=== PATIENT | female | born 1945 | race Caucasian/White ===

== ENCOUNTER 2016-09-14 07:25 | Day surgery (SDC) | payer MEDICARE ==
[~2016-09-14 07:25] MED LIST: CEFAZOLIN 2 GM-D5W BAG** 50 ML IV ONE; Lactated Ringers 1,000 ML IV SCH; Pepcid 20 MG VIAL IV ONE
[2016-09-14] MEDS ORDERED: Pepcid 20 MG VIAL IV ONE (07:39)
[2016-09-14] MEDS ORDERED: Lactated Ringers 1,000 ML IV ONE ×2 (07:39→08:52)
[2016-09-14] MEDS ORDERED: CEFAZOLIN 2 GM-D5W BAG** 50 ML IV ONE (07:39)
[2016-09-14] MEDS ORDERED: DIPRIVAN 200 MG/20 ML IV ONE (08:00)
[2016-09-14] MEDS ORDERED: Zofran 4 MG/2 ML VIAL IV ONE (08:00)
[2016-09-14] MEDS ORDERED: SUBLIMAZE 100 MCG/2 ML IV ONE (08:00)
[2016-09-14] MEDS ORDERED: DILAUDID 2 MG INJECTION IV ONE (08:00)
[2016-09-14] MEDS ORDERED: Versed 2 MG/2 ML Injection IV ONE (08:00)
[2016-09-14 08:27] LABS: Mean Cell Volume 92.8 fl (78-100); Mean Corpuscular Hemoglobin 31.7 pg (26-32); Mean Platelet Volume 11.9 fl (6-9.5); Platelet Count 330 K/mm3 (150-450); Red Blood Count 4.99 M/mm3 (4.1-5.4); Red Cell Distribution Width 12.5 % (11.5-14.0); White Blood Count 9.2 K/mm3 (4.0-10.5)
[2016-09-14] MEDS ORDERED: EPINEPHRINE 1:1000 1 ML AMP ONE (08:52)
[2016-09-14] MEDS ORDERED: Marcaine 0.5% SDV 10 ML ONE (08:52)
[2016-09-14] MEDS ORDERED: XYLOCAINE 1%/Epi 1:100000 MDV 20 ML ONE (08:52)
[2016-09-14] MEDS ORDERED: SUBLIMAZE 100 MCG/2 ML ONE (11:20)
--- NOTE | 2016-09-14 12:19 | OP ---
SURGERY DATE/TIME: 09/14/2016 1000 PREOPERATIVE DIAGNOSIS: Internal derangement of the left knee. POSTOPERATIVE DIAGNOSES: 1) Multiple osteochondral loose bodies left knee. 2) Lateral and medial meniscus tears. 3) Chondral defect patella with chondromalacia. PROCEDURES: 1) Left knee arthroscopy with debridement of multiple osteochondral loose bodies. 2) Left knee arthroscopy with bilateral meniscectomy. 3) Left knee arthroscopy with chondroplasty patella and lateral femoral condyle. 4) Long leg splint. 5) On-Q pump catheter postoperative pain. SURGEON: Jevon Isaacs D.O. CONTRACT LAW SPECIALIST: None. ANESTHESIA: General per SCIENCE INTERPRETER. ESTIMATED BLOOD LOSS: Minimal. DESCRIPTION OF PROCEDURE: The patient is taken to the operative suite and placed in supine position, given a general anesthetic, placed supine. All neurovascular areas well padded. Sterile prep and drape done to the thigh and the incision made in the suprapatellar area of the knee. Entered with 0.25% Marcaine, 1% lidocaine and epinephrine placed into the knee, 60 cc total. Infralateral aspect of the knee entered with camera. Stab incision and camera inflow. ACL was intact. Multiple loose bodies seen in the anterior foreground of the lateral joint line on the tibia. Multiple punch type defects probably eraser in size or a little bit larger were found on the anterior foreground on the lateral portion of the femoral condyle of the knee and then menisci tears bilaterally and posterior horns of both of the knees. Punch forceps and binders were used with the [place] on the two meniscal tears posteriorly until a red-white cuff of standard tissue was obtained in the posterior horns bilaterally. Chondral surface using Surfak machine on a #3 setting was used overlying the chondral defects of the lateral femoral condyle and underneath of the patella covering a large swath space more than 10 to 15 mm in particularly in the patellofemoral area to a depth of outer bridge 2 or even 3. As described earlier the loose bodies were seen in the intercondylar notch in front of the knee were removed with a shaver and with graspers. As the knee was drained of saline, Ethilon sutures were placed in the portal sites and a long leg splint applied with a Hurtado compressive dressing applied.
[2016-09-14 13:52] VITALS: O2SAT 95
[2016-09-14 14:02] VITALS: BP 146/88; PULSE 81
== END 2016-09-14 13:00 | disposition home health service (06) ==
LOC: SDC 07:25
PROVIDERS: ATTEND Orthopaedic Surgery
PROC: 0SBD4ZZ Excision of Left Knee Joint, Percutaneous Endoscopic Approach (ICD-10-PCS; principal; 2016-09-14)
PROC: 0SBD4ZZ Excision of Left Knee Joint, Percutaneous Endoscopic Approach (ICD-10-PCS; 2016-09-14)
PROC: 0SCD4ZZ Extirpation of Matter from Left Knee Joint, Percutaneous Endoscopic Approach (ICD-10-PCS; 2016-09-14)
DX: M23.92 Unspecified internal derangement of left knee (principal); M23.42 Loose body in knee, left knee; S83.282A Other tear of lateral meniscus, current injury, left knee, initial encounter; S83.242A Other tear of medial meniscus, current injury, left knee, initial encounter; M22.42 Chondromalacia patellae, left knee; M25.562 Pain in left knee; Z79.899 Other long term (current) drug therapy
CPT/HCPCS: 01400; 36415; 82962; 85027; 93005; 99100; J0171; J0690; J1170; J2250; J2405; J2704; J3010; L1830

== ENCOUNTER 2018-01-20 19:44 | Emergency (ER) | payer MEDICARE ==
[2018-01-20 20:12] VITALS: O2SAT 98
[2018-01-20] MEDS ORDERED: TYLENOL 325 MG PO ONE (20:27)
[2018-01-20] MEDS ORDERED: Adacel Vial IM ONE ×2 (20:27→20:51)
[2018-01-20] MEDS ORDERED: TYLENOL 325 MG ONE (20:51)
--- NOTE | 2018-01-20 20:52 | ERPHSYRPT ---
- History of Present Illness Time Seen by Provider: 01/20/18 20:19 Source: patient Exam Limitations: no limitations Patient Subjective Stated Complaint: fell in yard and cut right arm 5 cm laceration, and bruised left knee, both shoulders sore Triage Nursing Assessment: Pt A&O x3, complains of sore shoulders from a fall in her yard, skin laceration/tear 5 cm long on right forearm, entire left knee bruised, hx of bone in knee being scraped on 09/14/2016, mastectomy on left breast 1993, bruising on RLQ of abdomen from insulin injections, no other bruising or cuts, denies hitting head, states that she is on 2L of Oxygen at home, 98% room air Physician History: Pt states, she tripped and fell on her way back from the mailbox, on her driveway, injured both knees and shoulders, also sustained a cut on her right forearm. She denies head or neck, back injury, LOC, other injury or complaints, no chest pain, SOB, dizziness, or nausea. Occurred: just prior to arrival Reason for Fall: tripped Injuries/Pain Location: upper extremity, lower extremity Loss of Consciousness: no loss of consciousness Quality: aching Severity of Pain-Max: mild Severity of Pain-Current: mild Modifying Factors: Improves With: movement Associated Symptoms (Fall): denies symptoms Allergies/Adverse Reactions: albuterol Allergy (Intermediate, Verified 01/20/18 20:13) Swelling of Tongue and Lips clonazepam [From Klonopin] Allergy (Verified 01/20/18 20:13) Tightness of Throat tongue swollen propranolol HCl [From Inderal LA] Allergy (Verified 01/20/18 20:12) Swelling of Tongue and Lips red face and ears Sulfa (Sulfonamide Antibiotics) Allergy (Verified 01/20/18 20:13) Swelling of Tongue and Lips throat swell,ears red venom-honey bee [bee venom (honey bee)] Allergy (Verified 01/20/18 20:13) Hives large hives zanamivir [From Relenza Diskhaler] Allergy (Verified 01/20/18 20:13) Swelling of Tongue and Lips throat tightness Home Medications: ALPRAZolam [Xanax 0.5 mg] 0.5 mg PO TID 11/13/13 [History] Aspirin 81 mg PO DAILY 11/13/13 [History] Cetirizine HCl [Zyrtec] 10 mg PO DAILY 11/13/13 [History] Ferrous Sulfate [Iron] 325 mg PO BID 11/13/13 [History] Insulin Glargine [Lantus Insulin] 8 unit SQ QHS 11/13/13 [History] Insulin Glargine,Hum.rec.anlog [Lantus] 34 unit SQ QAM 11/13/13 [History] Levothyroxine Sodium 150 Mcg [Synthroid 150 Mcg] 225 mcg PO QHS 11/13/13 [ History] Magnesium Oxide 400 mg [Mag-Ox 400] 750 mg PO TID 11/13/13 [History] Ranitidine HCl [Zantac] 150 mg PO BID 11/13/13 [History] Spironolactone [Aldactone] 50 mg PO BID 11/13/13 [History] Amlodipine Besylate 5 mg [Norvasc 5 mg] 5 mg PO DAILY 12/22/14 [History] Calcium Carbonate [Calcium] 1,000 mg PO DAILY 12/22/14 [History] Cyanocobalamin (Vitamin B-12) [Vitamin B12] 1,000 mcg PO DAILY 09/14/16 [History ] Diphenoxylate HCl/Atropine [Lomotil] 1 tab PO TID 09/14/16 [History] Insulin Aspart [Novolog Flexpen] 100 unit SQ UD 09/14/16 [History] Clopidogrel Bisulfate [Clopidogrel] 75 mg PO DAILY 01/20/18 [History] Gabapentin 300 mg PO TID 01/20/18 [History] Losartan Potassium 25 mg PO DAILY 01/20/18 [History] Montelukast Sodium 10 mg [Singulair 10 MG] 10 mg PO DAILY 01/20/18 [History] Pravastatin Sodium 10 mg PO DAILY 01/20/18 [History] Hx Tetanus, Diphtheria Vaccination/Date Given: Yes (2009) Hx Influenza Vaccination/Date Given: Yes Hx Pneumococcal Vaccination/Date Given: Yes - Review of Systems Musculoskeletal: Other (left knee and both shoulders painful, laceration to the right forearm.) All Other Systems: Reviewed and Negative - Past Medical History Pertinent Past Medical History: Yes Neurological History: Stroke ENT History: No Pertinent History Cardiac History: High Cholesterol, Hypertension, Other Respiratory History: COPD Endocrine Medical History: Diabetes Type I Musculoskeletal History: No Pertinent History GI Medical History: GERD History: No Pertinent History Psycho-Social History: Anxiety Female Reproductive Disorders: Breast Cancer Other Medical History: 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 PUBIC MASS REMOVED , left mastectomy and eleven lymph nodes removed.and right lumpectomy 1993 - Social History Smoking Status: Never smoker Exposure to second hand smoke: Yes (no longer around) Drug Use: none Patient Lives Alone: Yes - Nursing Vital Signs Nursing Vital Signs: Initial Vital Signs Temperature 98.1 F 01/20/18 19:54 Pulse Rate 85 01/20/18 19:54 Blood Pressure 174/81 01/20/18 19:54 O2 Sat by Pulse Oximetry 98 01/20/18 19:54 Pain Scale Pain Intensity 7 - Jeanie Coma Score Best Eye Response (Jeanie): (4) open spontaneously Best Verbal Response ([place]): (5) oriented Best Motor Response ([place]): (6) obeys commands Jeanie Total: 15 - Physical Exam General Appearance: no apparent distress Head Injury: no evidence of injury Eye Exam: PERRL/EOMI, eyes nml inspection ENT Exam: airway nml, evidence of ENT injury Neck Exam: supple, trachea midline, full range of motion, normal alignment, normal inspection, No muscle spasm Respiratory/Chest Exam: normal breath sounds, No chest tenderness, No ecchymosis Cardiovascular Exam: normal heart sounds, regular rate/rhythm, normal peripheral pulses, No murmur, No edema, No JVD Gastrointestinal Exam: soft, normal bowel sounds, No tenderness, No distention, No mass, No ecchymosis Back Exam: normal inspection, No CVA tenderness, No vertebral tenderness Extremity Exam: tenderness (right dorsal forearm: 5 cm long transverse skin tear , slightly lobated from the distal side, with small hematoma, no active bleeding , no deformity, good distal pulses and sensation, both anterior knees hematoma over the patella, larger on the left side, otherwise normal ROM, no effusion or laxity, good distal pulses, both anterior shoulders are tender, but no swelling , deformity, good ROM on both sides.) Peripheral Pulses: dorsalis-pedis (R): 3+, dorsalis-pedis (L): 3+ Neurologic Exam: alert, oriented x 3, normal mood/affect, nml station & gait, No motor deficits Skin Exam: normal color, warm, dry SpO2 Interpretation: normal SpO2: 98 Oxygen Delivery: Room Air Procedures - Laceration/Wound Repair Right Wrist Wound Location: Right, lower arm Wound Length (cm): 6 Wound's Depth, Shape: superficial, flap Wound Explored: clean Irrigated: Yes Hibiclens Prep: No Progress: 01/20/18 21:54 Wound cleaned with saline, betadine, steri strips placed, no sutures needed. - Course Nursing assessment & vital signs reviewed: Yes - Radiology Exams Right Forearm X-ray Interpretation: Interpreted by me, Negative Right Shoulder X-ray Interpretation: Interpreted by me, Negative Left Shoulder X-ray Interpretation: Interpreted by me, Negative Right Knee X-ray Interpretation: Interpreted by me, Negative Left Knee X-ray Interpretation: Interpreted by me, Negative Ordered Tests: Active Orders 24 hr Category Date Time Status FOREARM Stat Exams 01/20/18 20:28 Ordered KNEE (1 OR 2 VIEW) Stat Exams 01/20/18 20:28 Ordered KNEE (3 VIEWS) Stat Exams 01/20/18 20:28 Ordered SHOULDER Stat Exams 01/20/18 Ordered SHOULDER Stat Exams 01/20/18 20:28 Ordered Medication Summary Discontinued Medications Generic Name Dose Route Start Last Admin Trade Name Pavel PRN Reason Stop Dose Admin Acetaminophen 650 mg 01/20/18 20:27 01/20/18 20:52 Tylenol 325 Mg PO 01/20/18 20:28 650 mg STAT ONE Administration Acetaminophen Confirm 01/20/18 20:51 Tylenol 325 Mg Administered 01/20/18 20:52 Dose 650 mg .ROUTE .STK-MED ONE Diphtheria/Tetanus/Acell Pertussis 0.5 ml 01/20/18 20:27 01/20/18 20:52 Adacel Vial IM 01/20/18 20:28 0.5 ml .ONCE ONE Administration Diphtheria/Tetanus/Acell Pertussis Confirm 01/20/18 20:51 Adacel Vial Administered 01/20/18 20:52 Dose 0.5 ml IM .STK-MED ONE - Progress Progress: improved Progress Note: 01/20/18 21:55 Pt has been stable, improved, denies severe pain or distress, I discussed the X ray results with her, she is being discharged, advised to rest with elevated arm , apply ice or cold compresses to swelling, return if severe pain, swelling! Follow up with her PCP next week. Counseled pt/family regarding: diagnosis, need for follow-up, rad results - Departure Time of Disposition: 21:56 Departure Disposition: Home Clinical Impression: Laceration of arm Qualifiers: Encounter type: initial encounter Laterality: right Qualified Code(s): S41.111A - Laceration without foreign body of right upper arm, initial encounter Contusion, knee Qualifiers: Encounter type: initial encounter Laterality: unspecified laterality Qualified Code(s): S80.00XA - Contusion of unspecified knee, initial encounter Condition: Stable Critical Care Time: No Referrals: [facility] [Primary Care Provider] - Instructions: Contusion (DC), Laceration Repair With Glue (DC) Additional Instructions: Rest with elevated arm, apply ice or cold compresses to swelling, return if severe pain, swelling! Follow up with your doctor next week!
[2018-01-20 22:07] VITALS: BP 123/68; PULSE 82
--- NOTE | 2018-01-21 20:42 | XRAY ---
Indication: Pain following fall. Comparison: None 3 views of the right shoulder demonstrates osteopenia, moderate AC degenerative arthropathy, and multilevel degenerative spondylosis. No other bony, articular, or soft tissue abnormalities.
--- NOTE | 2018-01-21 20:42 | XRAY ---
Indication: Pain following fall. Comparison: None 3 views of the left shoulder demonstrates osteopenia, mild AC degenerative arthropathy, multilevel degenerative spondylosis, and left midlung fibrosis/scarring. No other bony, articular, or soft tissue abnormalities.
--- NOTE | 2018-01-21 20:44 | XRAY ---
Indication: Pain following fall. Comparison: None 3 views of the left knee demonstrates osteopenia, mild tricompartmental degenerative changes, small nonspecific suprapatellar effusion, and scattered vascular calcifications. No other bony, articular, or soft tissue abnormalities.
--- NOTE | 2018-01-21 20:44 | XRAY ---
Indication: Pain following fall. Comparison: None 2 views of the right knee demonstrates mild osteopenia, mild lateral compartment degenerative changes, and scattered vascular calcifications. No other bony, articular, or soft tissue abnormalities.
--- NOTE | 2018-01-21 20:45 | XRAY ---
Indication: Pain following fall. Comparison: December 22, 2014. 2 views of the right forearm demonstrates posterior soft tissue swelling. No other bony, articular, or soft tissue abnormalities.
== END 2018-01-20 22:08 | disposition home or self-care (01) ==
LOC: ED 19:44
DX: S41.111A Laceration without foreign body of right upper arm, initial encounter (principal); S80.02XA Contusion of left knee, initial encounter; S80.01XA Contusion of right knee, initial encounter; S40.012A Contusion of left shoulder, initial encounter; S40.011A Contusion of right shoulder, initial encounter; M25.512 Pain in left shoulder; M25.511 Pain in right shoulder; M25.562 Pain in left knee; W01.0XXA Fall on same level from slipping, tripping and stumbling without subsequent striking against object, initial encounter; Y93.01 Activity, walking, marching and hiking; Y92.008 Other place in unspecified non-institutional (private) residence as the place of occurrence of the external cause; Z79.82 Long term (current) use of aspirin; Z79.899 Other long term (current) drug therapy
CPT/HCPCS: 73030; 73090; 73560; 73562; 90471; 90715; 96372; 99284; A9270-GY

== ENCOUNTER 2018-12-28 08:56 | Observation (INO) | payer MEDICARE ==
[2018-12-28] MEDS ORDERED: ANTIVERT 25 MG PO ONE (09:20)
--- NOTE | 2018-12-28 09:27 | ERPHSYRPT ---
- History of Present Illness Time Seen by Provider: 12/28/18 09:20 Source: patient Exam Limitations: no limitations Patient Subjective Stated Complaint: pt co dizziness since tuesday, she states room is spinning and she feels unsteady, nausea, no fever, rigth ear feels full, Triage Nursing Assessment: pt arrived per wc, alert, resp labored with excertion which is normal for her. was able to get up out of wc and get undressed,chest clear, no edema Physician History: 73-year-old white female with history of CVA, hyperlipidemia, high blood pressure, diabetes type 1, GERD, anxiety Patient arrives with complaint of feeling dizzy symptoms going on for 2 days she states that 2 days ago she began to feel hot began to feel dizzy she states she feels dizzy doesn't matter whether she moves or not she has not had any chest pain or shortness of breath she states she felt like she's had some intermittent fevers no nausea no vomiting . 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 Past surgical history includes lobectomy, mastectomy, thyroid removed, left mastectomy with lymph node removed, right lumpectomy patient with aortic valve replaced, tonsillectomy, adenoidectomy, hernia repair Social history patient denies tobacco alcohol or illicit drug use Timing/Duration: day(s) (2 days) Severity: moderate Modifying Factors: Improves With: nothing Associated Symptoms: fever (intermittent fever), No nausea, No vomiting, No shortness of breath, No heartburn, No diaphoresis, No cough, No chills, No chest pain, No headaches, No loss of appetite, No rash, No syncope, No seizure, No weakness Allergies/Adverse Reactions: albuterol Allergy (Intermediate, Verified 12/28/18 09:09) Swelling of Tongue and Lips clonazepam [From Klonopin] Allergy (Verified 12/28/18 09:09) Tightness of Throat tongue swollen propranolol HCl [From Inderal LA] Allergy (Verified 12/28/18 09:09) Swelling of Tongue and Lips red face and ears Sulfa (Sulfonamide Antibiotics) Allergy (Verified 12/28/18 09:09) Swelling of Tongue and Lips throat swell,ears red venom-honey bee [bee venom (honey bee)] Allergy (Verified 12/28/18 09:09) Hives large hives zanamivir [From Lola Contreras] Allergy (Verified 12/28/18 09:09) Swelling of Tongue and Lips throat tightness Home Medications: ALPRAZolam [Xanax 0.5 mg] 0.5 mg PO TID 11/13/13 [History] Cetirizine HCl [Zyrtec] 10 mg PO DAILY 11/13/13 [History] Ferrous Sulfate [Iron] 325 mg PO BID 11/13/13 [History] Levothyroxine Sodium 150 Mcg [Synthroid 150 Mcg] 250 mcg PO QHS 11/13/13 [ History] Magnesium Oxide 400 mg [Mag-Ox 400] 750 mg PO TID 11/13/13 [History] Spironolactone [Aldactone] 50 mg PO BID 11/13/13 [History] Amlodipine Besylate 5 mg [Norvasc 5 mg] 5 mg PO DAILY 12/22/14 [History] Calcium Carbonate [Calcium] 1,000 mg PO DAILY 12/22/14 [History] Cyanocobalamin (Vitamin B-12) [Vitamin B12] 1,000 mcg PO DAILY 09/14/16 [History ] Diphenoxylate HCl/Atropine [Lomotil] 1 tab PO TID 09/14/16 [History] Clopidogrel Bisulfate [Clopidogrel] 75 mg PO DAILY 01/20/18 [History] Gabapentin 300 mg PO TID 01/20/18 [History] Losartan Potassium 25 mg PO DAILY 01/20/18 [History] Montelukast Sodium 10 mg [Singulair 10 MG] 10 mg PO DAILY 01/20/18 [History] Pravastatin Sodium 10 mg PO DAILY 01/20/18 [History] Insulin Glargine,Hum.rec.anlog [Basaglar Kwikpen U-100] 34 units DAILY 12/28/18 [History] Ranitidine HCl [Zantac] 150 mg DAILY 12/28/18 [History] Hx Tetanus, Diphtheria Vaccination/Date Given: Yes (2009) Hx Influenza Vaccination/Date Given: Yes Hx Pneumococcal Vaccination/Date Given: Yes Immunizations Up to Date: Yes - Review of Systems Constitutional: Fever (iintermittent fever (felt hot)), No Chills Eyes: No Symptoms Ears, Nose, & Throat: No Symptoms Respiratory: No Cough, No Dyspnea Cardiac: No Chest Pain, No Edema, No Syncope Abdominal/Gastrointestinal: No Abdominal Pain, No Nausea, No Vomiting, No Diarrhea Genitourinary Symptoms: No Dysuria Musculoskeletal: No Back Pain, No Neck Pain Skin: No Rash Neurological: Dizziness, No Focal Weakness, No Sensory Changes Psychological: No Symptoms Endocrine: No Symptoms All Other Systems: Reviewed and Negative - Past Medical History Pertinent Past Medical History: Yes Neurological History: Stroke ENT History: No Pertinent History Cardiac History: High Cholesterol, Hypertension, Other Respiratory History: COPD Endocrine Medical History: Diabetes Type I Musculoskeletal History: No Pertinent History GI Medical History: GERD History: No Pertinent History Psycho-Social History: Anxiety Female Reproductive Disorders: Breast Cancer Other Medical History: 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 PUBIC MASS REMOVED , left mastectomy and eleven lymph nodes removed.and right lumpectomy 1993, valve replaced aug 2018 - Social History Smoking Status: Never smoker Exposure to second hand smoke: Yes (no longer around) Drug Use: none Patient Lives Alone: Yes - Female History Hx Last Menstrual Period: post Hx Now: No - Nursing Vital Signs Nursing Vital Signs: Initial Vital Signs Temperature 98.1 F 12/28/18 08:59 Pulse Rate 96 H 12/28/18 08:59 Respiratory Rate 20 12/28/18 08:59 Blood Pressure 175/83 12/28/18 08:59 O2 Sat by Pulse Oximetry 100 12/28/18 08:59 Pain Scale Pain Intensity 4 - Physical Exam General Appearance: no apparent distress, alert Eye Exam: PERRL/EOMI, eyes nml inspection Ears, Nose, Throat Exam: normal ENT inspection, TMs normal, pharynx normal, moist mucous membranes Neck Exam: normal inspection, non-tender, supple, full range of motion Respiratory Exam: normal breath sounds, lungs clear, No respiratory distress Cardiovascular Exam: regular rate/rhythm, normal heart sounds, normal peripheral pulses, capillary refill <2 sec Gastrointestinal/Abdomen Exam: soft, normal bowel sounds, No tenderness, No mass Back Exam: normal inspection, normal range of motion, No CVA tenderness, No vertebral tenderness Extremity Exam: normal inspection, normal range of motion, pelvis stable Neurologic Exam: alert, oriented x 3, cooperative, senior tax specialist II-XII nml as tested, normal mood/affect, nml cerebellar function, nml station & gait, sensation nml, other (patient alert, oriented x3, cranial nerves II through XII intact, no facial droop, tongue does not deviate, normal finger to nose, no pronator drift , torpedo specialist equal and symmetrical 5 over 5, speech normal, full range of motion all extremities. sensation intact to all extremities, GCS equals 15), No motor deficits Skin Exam: normal color, warm, dry, No rash Lymphatic Exam: No adenopathy SpO2 Interpretation: normal (100%) SpO2: 100 - Course Nursing assessment & vital signs reviewed: Yes EKG Interpreted by Me: RATE (93 bpm), Sinus Rhythm, NORMAL AXIS, Other (EKG: Sinus rhythm with PAC, 93 beats per minute nonspecific ST and T wave changes, compared to to September 14, 2016) - Radiology Exams Chest X-ray Interpretation: Discussed w/ radiologist (chest x-ray: Stable nonacute chest with chronic features) - CT Exams Head CT Interpretation: Discussed w/radiologist (head CT: Impression:normal aging brain including atrophy and degenerative micro-ischemia. No acute intracranial abnormalities.) Ordered Tests: Active Orders 24 hr Category Date Time Status Accucheck STAT Care 12/28/18 09:20 Active EKG-ER Only STAT Care 12/28/18 09:20 Active EKG-ER Only STAT Care 12/28/18 11:41 Active IV Insertion STAT Care 12/28/18 09:20 Active Orthostatic Vital Signs STAT Care 12/28/18 09:20 Active CHEST 1 VIEW (PORTABLE) Stat Exams 12/28/18 09:20 Completed HEAD WITHOUT CONTRAST [CT] Stat Exams 12/28/18 09:20 Completed CBC W DIFF Stat Lab 12/28/18 09:25 Completed CMP Stat Lab 12/28/18 09:25 Completed CULTURE,URINE Stat Lab 12/28/18 11:02 Received ETHYL ALCOHOL Stat Lab 12/28/18 09:25 Completed TROPONIN Q3H Lab 12/28/18 09:25 Completed TROPONIN Q3H Lab 12/28/18 12:30 Ordered TROPONIN Q3H Lab 12/28/18 15:30 Ordered TROPONIN Q3H Lab 12/28/18 18:30 Ordered TROPONIN Q3H Lab 12/28/18 21:30 Ordered UA W/RFX UR CULTURE Stat Lab 12/28/18 11:02 Completed Medication Summary Generic Name Dose Route Start Last Admin Trade Name Freq PRN Reason Stop Dose Admin Sodium Chloride 1,000 mls @ 100 mls/hr 12/28/18 09:30 12/28/18 09:41 Sodium Chloride 0.9% 1000 Ml IV 01/27/19 09:29 100 mls/hr .Q10H RAMON Administration Discontinued Medications Generic Name Dose Route Start Last Admin Trade Name Freq PRN Reason Stop Dose Admin Aspirin 324 mg 12/28/18 11:36 12/28/18 11:44 Baby Aspirin 81 Mg Chew PO 12/28/18 11:37 324 mg STAT ONE Administration Aspirin Confirm 12/28/18 11:42 Baby Aspirin 81 Mg Chew Administered 12/28/18 11:43 Dose 324 mg .ROUTE .STK-MED ONE Sodium Chloride 1,000 mls @ 999 mls/hr 12/28/18 10:26 12/28/18 10:49 Sodium Chloride 0.9% 1000 Ml IV 12/28/18 11:26 999 mls/hr .Q1H1M STA Administration Meclizine HCl 25 mg 12/28/18 09:20 12/28/18 09:41 Antivert 25 Mg PO 12/28/18 09:21 25 mg STAT ONE Administration Meclizine HCl Confirm 12/28/18 09:35 Antivert 25 Mg Administered 12/28/18 09:36 Dose 25 mg .ROUTE .STK-MED ONE Lab/Rad Data: Laboratory Result Diagrams 12/28/18 09:25 12/28/18 09:25 Laboratory Results 12/28/18 12/28/18 12/28/18 Range/Units 11:02 09:25 09:25 WBC (4.0-10.5) K/mm3 RBC (4.1-5.4) M/mm3 Hgb (12.0-16.0) gm/dl Hct (35-47) % MCV (78-100) fl MCH (26-32) pg MCHC (32-36) g/dl RDW (11.5-14.0) % Plt Count (150-450) K/mm3 MPV (6-9.5) fl Gran % (36.0-66.0) % Eos # (Auto) (0-0.5) Absolute Lymphs (auto) (1.0-4.6) Absolute Monos (auto) (0.0-1.3) Lymphocytes % (24.0-44.0) % Monocytes % (0.0-12.0) % Eosinophils % (0.00-5.0) % Basophils % (0.0-0.4) % Absolute Granulocytes (1.4-6.9) Basophils # (0-0.4) Sodium 138 (137-145) mmol/L Potassium 4.0 (3.5-5.1) mmol/L Chloride 97 L (98-107) mmol/L Carbon Dioxide 20 L (22-30) mmol/L Anion Gap 23.8 H (5-15) MEQ/L BUN 24 H (7-17) mg/dL Creatinine 1.04 (0.52-1.04) mg/dL Estimated GFR 55.2 ML/MIN Glucose 265 H (74-106) mg/dL Calcium 9.0 (8.4-10.2) mg/dL Total Bilirubin 0.80 (0.2-1.3) mg/dL AST 35 (14-36) U/L ALT 20 (0-35) U/L Alkaline Phosphatase 87 (38-126) U/L Troponin I < 0.012 (0.000-0.034) ng/mL Serum Total Protein 8.7 H (6.3-8.2) g/dL Albumin 4.8 (3.5-5.0) g/dL Urine Color YELLOW (YELLOW) Urine Appearance SLIGHTLY CLOUDY (CLEAR) Urine pH 7.0 (5-6) Ur Specific [place] 1.011 (1.005-1.025) Urine Protein >=500 (Negative) Urine Ketones TRACE (NEGATIVE) Urine Blood NEGATIVE (0-5) Min/ul Urine Nitrite NEGATIVE (NEGATIVE) Urine Bilirubin NEGATIVE (NEGATIVE) Urine Urobilinogen NEGATIVE (0-1) mg/dL Ur Leukocyte Esterase TRACE (NEGATIVE) Urine WBC (Auto) 3-5 (0-5) /HPF Urine RBC (Auto) 0-2 (0-2) /HPF U Epithel Cells (Auto) RARE (FEW) /HPF Urine Bacteria (Auto) RARE (NEGATIVE) /HPF Urine Culture Reflexed YES (NO) Urine Glucose NEGATIVE (NEGATIVE) mg/dL Ethyl Alcohol < 10 (0-10) mg/dL 12/28/18 Range/Units 09:25 WBC 11.3 H (4.0-10.5) K/mm3 RBC 4.75 (4.1-5.4) M/mm3 Hgb 14.5 (12.0-16.0) gm/dl Hct 42.1 (35-47) % MCV 88.6 (78-100) fl MCH 30.5 (26-32) pg MCHC 34.4 (32-36) g/dl RDW 12.6 (11.5-14.0) % Plt Count 382 (150-450) K/mm3 MPV 11.9 H (6-9.5) fl Gran % 88.6 H (36.0-66.0) % Eos # (Auto) 0.03 (0-0.5) Absolute Lymphs (auto) 0.70 L (1.0-4.6) Absolute Monos (auto) 0.53 (0.0-1.3) Lymphocytes % 6.2 L (24.0-44.0) % Monocytes % 4.7 (0.0-12.0) % Eosinophils % 0.3 (0.00-5.0) % Basophils % 0.2 (0.0-0.4) % Absolute Granulocytes 10.02 H (1.4-6.9) Basophils # 0.02 (0-0.4) Sodium (137-145) mmol/L Potassium (3.5-5.1) mmol/L Chloride (98-107) mmol/L Carbon Dioxide (22-30) mmol/L Anion Gap (5-15) MEQ/L BUN (7-17) mg/dL Creatinine (0.52-1.04) mg/dL Estimated GFR ML/MIN Glucose (74-106) mg/dL Calcium (8.4-10.2) mg/dL Total Bilirubin (0.2-1.3) mg/dL AST (14-36) U/L ALT (0-35) U/L Alkaline Phosphatase (38-126) U/L Troponin I (0.000-0.034) ng/mL Serum Total Protein (6.3-8.2) g/dL Albumin (3.5-5.0) g/dL Urine Color (YELLOW) Urine Appearance (CLEAR) Urine pH (5-6) Ur Specific [place] (1.005-1.025) Urine Protein (Negative) Urine Ketones (NEGATIVE) Urine Blood (0-5) Min/ul Urine Nitrite (NEGATIVE) Urine Bilirubin (NEGATIVE) Urine Urobilinogen (0-1) mg/dL Ur Leukocyte Esterase (NEGATIVE) Urine WBC (Auto) (0-5) /HPF Urine RBC (Auto) (0-2) /HPF U Epithel Cells (Auto) (FEW) /HPF Urine Bacteria (Auto) (NEGATIVE) /HPF Urine Culture Reflexed (NO) Urine Glucose (NEGATIVE) mg/dL Ethyl Alcohol (0-10) mg/dL - Progress Progress: improved Progress Note: 12/28/18 11:52 73-year-old white female arrives with complaint of 2 days of dizziness no speech or movement abnormality she states she felt hot and became dizzy 2 days ago. Patient without other symptoms initially. Patient was EKG sinus rhythm with PAC 93 beats in no acute ST or T waves changes (nonspecific changes) patient was chemistry remarkable for an anion gap of 24 patient with glucose 265 sodium 138 potassium 4.0 chloride 97 bicarbonate 20 BUN 24 creatinine 1.04 Patient with normal troponin patient's CBC white blood cell 11.3 hemoglobin 14.5 hematocrit 42.1 Chest x-ray nonacute chest Patient was started on IV normal saline initially 1000 mL bolus and then switch to a second thousand milliliters bolus however patient stated that she had some chest pain to the nurse. Patient now states she is feeling better patient was given aspirin in view of her complain of some chest pain EKG is being repeated. I discussed the case with Dr. Cardenas will go ahead and run in remaining bag of fluids at 100 mL per hour and then stop. Will place patient on observation telemetry diagnosis dizziness, chest pain. Patient was given aspirin 324 mg orally 12/28/18 12:06 Repeat EKG time December 28, 2018 11:58 AM EKG: Sinus rhythm, 85 beats per minute normal axis, no acute ST or T wave changes essentially normal EKG. - Departure Departure Disposition: Observation Clinical Impression: Dizziness Chest pain Qualifiers: Chest pain type: unspecified Qualified Code(s): R07.9 - Chest pain, unspecified Condition: Fair Critical Care Time: No Referrals: DEBI CARDENAS [Primary Care Provider] -
[2018-12-28] MEDS ORDERED: Sodium Chloride 0.9% 1000 ML 1,000 ML IV SCH (09:30)
[2018-12-28] MEDS ORDERED: ANTIVERT 25 MG ONE (09:35)
[2018-12-28] MEDS ORDERED: Sodium Chloride 0.9% 1000 ML 1,000 ML ONE ×2 (09:36→10:52)
[2018-12-28 09:40] LABS: BASOPHIL % 0.2 % (0.0-0.4); Basophil (Absolute #) 0.02 (0-0.4); Eosinophil % 0.3 % (0.00-5.0); Eosinophil (Absolute #) 0.03 (0-0.5); Granulocyte Absolute (ANC) 10.02 (1.4-6.9); Granulocytes % 88.6 % (36.0-66.0); Hematocrit 42.1 % (35-47); Hemoglobin 14.5 gm/dl (12.0-16.0); Lymphocytes % 6.2 % (24.0-44.0); Mean Cell Volume 88.6 fl (78-100); Mean Corpuscular Hemoglobin 30.5 pg (26-32); Mean Corpuscular Hgb Concent. 34.4 g/dl (32-36); Mean Platelet Volume 11.9 fl (6-9.5); Monocyte (Absolute #) 0.53 (0.0-1.3); Monocytes % 4.7 % (0.0-12.0); Platelet Count 382 K/mm3 (150-450); Red Blood Count 4.75 M/mm3 (4.1-5.4); Red Cell Distribution Width 12.6 % (11.5-14.0); White Blood Count 11.3 K/mm3 (4.0-10.5)
[2018-12-28 09:46] LABS: ALBUMIN 4.8 g/dL (3.5-5.0); ALKALINE PHOSPHATASE 87 U/L (38-126); ANION GAP 23.8 MEQ/L (5-15); BLOOD UREA NITROGEN 24 mg/dL (7-17); CHLORIDE 97 mmol/L (98-107); Carbon Dioxide 20 mmol/L (22-30); Creatinine 1 1.04 mg/dL (0.52-1.04); Glucose 265 mg/dL (74-106); SGPT/ALT 20 U/L (0-35); SODIUM 138 mmol/L (137-145); Total Protein 8.7 g/dL (6.3-8.2)
[2018-12-28 09:49] LABS: ETHYL ALCOHOL < 10 mg/dL (0-10)
[2018-12-28 09:51] LABS: SGOT/AST 35 U/L (14-36)
--- NOTE | 2018-12-28 10:08 | XRAY ---
Indication: Fever and dizziness. Comparison: November 10, 2015. Portable apical lordotic chest again hyperinflated with lingula subsegmental atelectasis/scarring. Remaining lungs unremarkable. Heart is not enlarged for AP portable technique again with tortuous descending aorta. Bony thorax intact again with osteopenia and degenerative changes. Impression: Stable nonacute chest with chronic features.
--- NOTE | 2018-12-28 10:16 | XRAY ---
Indication: Dizziness and fever. Multiple contiguous axial images obtained through the head without contrast. Comparison: None Age-appropriate global atrophy and minimal degenerative micro-ischemia. No acute intracranial hemorrhage, abnormal extra-axial fluid collection, or mass effect. Fourth ventricle is midline without hydrocephalus. Choi-white matter differentiation preserved. Scattered bilateral internal carotid and vertebral calcifications. Bony calvarium intact. Visualized paranasal sinuses and mastoid air cells are clear. Impression: Normal aging brain including atrophy and degenerative micro-ischemia. No acute intracranial abnormalities. CT DI 70.80
[2018-12-28] MEDS ORDERED: Sodium Chloride 0.9% 1000 ML 1,000 ML IV STA (10:26)
[2018-12-28 11:12] LABS: Appearance SLIGHTLY CLOUDY (CLEAR); Bacteria RARE /HPF (NEGATIVE); Bilirubin NEGATIVE (NEGATIVE); Blood NEGATIVE Ery/ul (0-5); Epithelial Cells RARE /HPF (FEW); Glucose NEGATIVE (NEGATIVE); Ketones TRACE (NEGATIVE); Leukocyte Esterase TRACE (NEGATIVE); Nitrite NEGATIVE (NEGATIVE); Protein,Urine Dip >=500 (Negative); RBC 0-2 /HPF (0-2); Specific Gravity 1.011 (1.005-1.025); Urobilinogen NEGATIVE mg/dL (0-1)
[2018-12-28] MEDS ORDERED: BABY ASPIRIN 81 MG CHEW PO ONE (11:36)
[2018-12-28] MEDS ORDERED: BABY ASPIRIN 81 MG CHEW ONE (11:42)
[2018-12-28] MEDS ORDERED: Lomotil PO PRN (16:30)
[2018-12-28] MEDS ORDERED: INSULIN GLARGINE HUM REC ANLOG 34 UNIT SQ SCH (16:30)
[2018-12-28] MEDS ORDERED: MEDICATION INTERVENTION PO SCH (17:15)
[2018-12-28] MEDS: Lantus Insulin SQ SCH (17:31)
[2018-12-28] MEDS: ANTIVERT 25 MG PO PRN (17:31)
[2018-12-28] MEDS ORDERED: INSULIN GLARGINE HUM REC ANLOG 10 UNIT SQ SCH (18:00)
[2018-12-28] MEDS: NEURONTIN 300 MG PO SCH (22:07)
[2018-12-28] MEDS: Pepcid 20 MG PO SCH (22:07)
[2018-12-28] MEDS: FEOSOL 325 MG PO SCH (22:07)
[2018-12-28] MEDS: xanAX 0.5 MG PO SCH (22:07)
[2018-12-28] MEDS: MAG-OX 400 PO SCH (22:08)
[2018-12-29 05:47] LABS: BASOPHIL % 0.4 % (0.0-0.4); Basophil (Absolute #) 0.03 (0-0.4); Eosinophil % 0.6 % (0.00-5.0); Eosinophil (Absolute #) 0.05 (0-0.5); Granulocyte Absolute (ANC) 4.82 (1.4-6.9); Hematocrit 38.6 % (35-47); Lymphocytes % 26.6 % (24.0-44.0); Mean Cell Volume 90.4 fl (78-100); Mean Corpuscular Hemoglobin 30.4 pg (26-32); Mean Corpuscular Hgb Concent. 33.7 g/dl (32-36); Mean Platelet Volume 11.8 fl (6-9.5); Monocytes % 11.4 % (0.0-12.0); Platelet Count 320 K/mm3 (150-450); Red Blood Count 4.27 M/mm3 (4.1-5.4); Red Cell Distribution Width 12.5 % (11.5-14.0); White Blood Count 7.9 K/mm3 (4.0-10.5)
[2018-12-29 06:16] LABS: ALBUMIN 3.8 g/dL (3.5-5.0); ANION GAP 14.9 MEQ/L (5-15); BILIRUBIN,TOTAL 0.5 mg/dL (0.2-1.3); Calcium 7.6 mg/dL (8.4-10.2); Creatinine 1 0.97 mg/dL (0.52-1.04); Potassium 3.7 mmol/L (3.5-5.1)
[2018-12-29] MEDS: Lantus Insulin SQ SCH ×2 (08:22→17:58)
--- NOTE | 2018-12-29 08:51 | PCM.HP ---
History of Present Illness - Chief Complaint Chief Complaint: dizziness History of Present Illness: is a 73 year old female pt of mine from [facility] with COPD, anemia, chronic renal disease, hx breast ca (and mastectomy), hx CVA, hypothyroidism, DM II, celiac disease, and recent transcatheter bovine aortic valve replacement (Aug 2018) who came to the ER complaining of dizziness. She started having spinning , particularly when lying back, 3d ago. Yesterday she came to the ER. Her head CT was negative. She did start to have some sharp substernal 5/10 chest pain (no palpitations or diaphoresis) that resolved with meds in the ER. She stayed overnight for CP r/o HI - this morning she is not having any chest pain and her troponins are negative. - Review of Systems Constitutional: Fever (subjectively feeling "hot and cold at the same time") Respiratory: Short Of Breath (chronic; on O2) Cardiac: Chest Pain Abdominal/Gastrointestinal: Abdominal Pain, Nausea, Other (has dark stools chronically due to iron intake), No Vomiting, No Diarrhea Neurological: Dizziness Psychological: No Anxiety, No Depression, No Suicidal Ideations Endocrine: Cold Intolerance All Other Systems: Reviewed and Negative Medications & Allergies Home Medications: Home Medication List ALPRAZolam [Xanax 0.5 mg] 0.5 mg PO TID 11/13/13 [History Confirmed 12/28/18] Cetirizine HCl [Zyrtec] 10 mg PO DAILY 11/13/13 [History Confirmed 12/28/18] Ferrous Sulfate [Iron] 325 mg PO BID 11/13/13 [History Confirmed 12/28/18] Levothyroxine Sodium 150 Mcg [Synthroid 150 Mcg] 225 mcg PO DAILY 11/13/13 [History Confirmed 12/28/18] Magnesium Oxide 400 mg [Mag-Ox 400] 750 mg PO TID 11/13/13 [History Confirmed 12/28/18] Spironolactone [Aldactone] 50 mg PO DAILY 11/13/13 [History Confirmed 12/28/18] Amlodipine Besylate 5 mg [Norvasc 5 mg] 5 mg PO DAILY 12/22/14 [History Confirmed 12/28/18] Calcium Carbonate [Calcium] 1,000 mg PO DAILY 12/22/14 [History Confirmed ] Cyanocobalamin (Vitamin B-12) [Vitamin B12] 1,000 mcg PO DAILY 09/14/16 [ History Confirmed 12/28/18] Diphenoxylate HCl/Atropine [Lomotil] 1 tab PO TID 09/14/16 [History Confirmed 12/28/18] Clopidogrel Bisulfate [Clopidogrel] 75 mg PO DAILY 01/20/18 [History Confirmed 12/28/18] Gabapentin 300 mg PO TID 01/20/18 [History Confirmed 12/28/18] Losartan Potassium 25 mg PO DAILY 01/20/18 [History Confirmed 12/28/18] Montelukast Sodium 10 mg [Singulair 10 MG] 10 mg PO DAILY 01/20/18 [History Confirmed 12/28/18] Pravastatin Sodium 10 mg PO DAILY 01/20/18 [History Confirmed 12/28/18] Aspirin EC 81 mg [Ecotrin 81 mg] 81 mg PO DAILY 12/28/18 [History Confirmed 12/28/18] Insulin Aspart [NovoLOG Insulin] 1 units SQ UD 12/28/18 [History Confirmed 12/28/18] Insulin Glargine,Hum.rec.anlog [Basaglar Kwikpen U-100] 10 units SQ EVENING MEAL 12/28/18 [History Confirmed 12/28/18] Insulin Glargine,Hum.rec.anlog [Basaglar Kwikpen U-100] 34 units AC 12/28/18 [ History Confirmed 12/28/18] Ranitidine HCl [Zantac] 150 mg BID 12/28/18 [History Confirmed 12/28/18] Allergies/Adverse Reactions: Allergies Allergy/AdvReac Type Severity Reaction Status Date / Time albuterol Allergy Intermediate Swelling Verified 12/28/18 09:09 of Tongue and Lips clonazepam [From Klonopin] Allergy Tightness Verified 12/28/18 09:09 of Throat propranolol HCl Allergy Swelling Verified 12/28/18 09:09 [From Inderal LA] of Tongue and Lips Sulfa (Sulfonamide Allergy Swelling Verified 12/28/18 09:09 Antibiotics) of Tongue and Lips venom-honey bee Allergy Hives Verified 12/28/18 09:09 [bee venom (honey bee)] zanamivir Allergy Swelling Verified 12/28/18 09:09 [From Lola Contreras] of Tongue and Lips - Past Medical History Past Medical History: Yes Neurological History: Stroke ENT History: No Pertinent History Cardiac History: High Cholesterol, Hypertension, Other Respiratory History: COPD Endocrine Medical History: Diabetes Type I Musculoskelatal History: No Pertinent History GI Medical History: GERD, Other History: No Pertinent History Pyscho-Social History: Anxiety Reproductive Disorders: Breast Cancer Comment: Obstruction in each leg, aortic stenosis, and heart obstruction, Celiac disease - Female History Hx Last Menstrual Period: post Are you now?: No - Past Surgical History Past Surgical History: Yes Neuro Surgical History: No Pertinent History Cardiac History: Vascular Surgery, Other Respiratory Surgery: No Pertinent History GI Surgical History: Hernia Repair Genitourinary Surgical Hx: No Pertinent History Musculskeletal Surgical Hx: No Pertinent History Female Surgical History: Lumpectomy, Mastectomy Other Surgical History: THYROID REMOVED. PUBIC MASS REMOVED , left mastectomy and eleven lymph nodes removed.and right lumpectomy 1993, valve replaced aug 2018 - Social History Smoking Status: Former smoker Exposure to second hand smoke: Yes Alcohol: None Drug Use: none - Physical Exam Vital Signs: Vital Signs - 24 hr Temp Pulse Resp BP Pulse Ox 12/29/18 07:38 81 16 98 12/29/18 07:35 98 F 82 16 142/86 99 12/29/18 04:20 98.7 F 83 20 144/86 99 12/29/18 00:00 98.9 F 73 18 163/78 98 12/28/18 21:11 97 12/28/18 20:00 99.4 F 99 H 20 158/88 97 12/28/18 16:00 98.7 F 84 163/91 99 12/28/18 14:47 97 12/28/18 13:33 98.2 F 98 H 175/79 100 12/28/18 13:30 97 12/28/18 12:08 100 12/28/18 12:02 86 21 146/79 100 12/28/18 11:02 90 18 140/80 100 12/28/18 10:03 89 19 137/96 99 12/28/18 08:59 98.1 F 96 H 20 175/83 100 Oxygen-Last 24 hours O2 Percentage 2 Liters = 28% O2 Percentage 2 Liters = 28% O2 Percentage 2 Liters = 28% O2 Percentage 2 Liters = 28% O2 Percentage 2 Liters = 28% O2 Percentage 2 Liters = 28% O2 Percentage 2 Liters = 28% O2 Percentage 4 Liters = 36% Oxygen Flowrate (L/min)-RT 2 Oxygen Flowrate (L/min)-RT 2 General Appearance: no apparent distress, alert Neurologic Exam: oriented x 3, cooperative Eye Exam: eyes nml inspection Ears, Nose, Throat Exam: moist mucous membranes Neck Exam: normal inspection, non-tender, No lymphadenopathy Respiratory Exam: normal breath sounds, lungs clear, prolonged expirations, No crackles/rales, No rhonchi, No wheezing Cardiovascular Exam: regular rate/rhythm, normal heart sounds, No murmur Gastrointestinal/Abdomen Exam: soft, normal bowel sounds, No tenderness, No distention, No mass, No guarding, No rebound Back Exam: normal inspection, No CVA tenderness, No rash Extremity Exam: normal inspection, tenderness (R pretibial), No pedal edema, No swelling Skin Exam: normal color, warm, dry, No rash Results - Labs Lab/Micro Results: Accuchecks Date 12/29/18 Date 12/28/18 Time 07:00 Time 16:30 Accucheck Value: 188 Accucheck Value: 198 Accucheck Value: 166 Accucheck Value: 235 Lab Results-Last 24 Hours 12/28/18 12/28/18 12/28/18 Range/Units 09:25 09:25 09:25 WBC 11.3 H (4.0-10.5) K/mm3 RBC 4.75 (4.1-5.4) M/mm3 Hgb 14.5 (12.0-16.0) gm/dl Hct 42.1 (35-47) % MCV 88.6 (78-100) fl MCH 30.5 (26-32) pg MCHC 34.4 (32-36) g/dl RDW 12.6 (11.5-14.0) % Plt Count 382 (150-450) K/mm3 MPV 11.9 H (6-9.5) fl Gran % 88.6 H (36.0-66.0) % Eos # (Auto) 0.03 (0-0.5) Absolute Lymphs (auto) 0.70 L (1.0-4.6) Absolute Monos (auto) 0.53 (0.0-1.3) Lymphocytes % 6.2 L (24.0-44.0) % Monocytes % 4.7 (0.0-12.0) % Eosinophils % 0.3 (0.00-5.0) % Basophils % 0.2 (0.0-0.4) % Absolute Granulocytes 10.02 H (1.4-6.9) Basophils # 0.02 (0-0.4) Sodium 138 (137-145) mmol/L Potassium 4.0 (3.5-5.1) mmol/L Chloride 97 L (98-107) mmol/L Carbon Dioxide 20 L (22-30) mmol/L Anion Gap 23.8 H (5-15) MEQ/L BUN 24 H (7-17) mg/dL Creatinine 1.04 (0.52-1.04) mg/dL Estimated GFR 55.2 ML/MIN Glucose 265 H (74-106) mg/dL Hemoglobin A1c (4.5-6.0) % Calcium 9.0 (8.4-10.2) mg/dL Total Bilirubin 0.80 (0.2-1.3) mg/dL AST 35 (14-36) U/L ALT 20 (0-35) U/L Alkaline Phosphatase 87 (38-126) U/L Troponin I < 0.012 (0.000-0.034) ng/mL Serum Total Protein 8.7 H (6.3-8.2) g/dL Albumin 4.8 (3.5-5.0) g/dL Urine Color (YELLOW) Urine Appearance (CLEAR) Urine pH (5-6) Ur Specific Boyle (1.005-1.025) Urine Protein (Negative) Urine Ketones (NEGATIVE) Urine Blood (0-5) Min/ul Urine Nitrite (NEGATIVE) Urine Bilirubin (NEGATIVE) Urine Urobilinogen (0-1) mg/dL Ur Leukocyte Esterase (NEGATIVE) Urine WBC (Auto) (0-5) /HPF Urine RBC (Auto) (0-2) /HPF U Epithel Cells (Auto) (FEW) /HPF Urine Bacteria (Auto) (NEGATIVE) /HPF Urine Culture Reflexed (NO) Urine Glucose (NEGATIVE) mg/dL Ethyl Alcohol < 10 (0-10) mg/dL 12/28/18 12/28/18 12/28/18 Range/Units 09:25 11:02 12:37 WBC (4.0-10.5) K/mm3 RBC (4.1-5.4) M/mm3 Hgb (12.0-16.0) gm/dl Hct (35-47) % MCV (78-100) fl MCH (26-32) pg MCHC (32-36) g/dl RDW (11.5-14.0) % Plt Count (150-450) K/mm3 MPV (6-9.5) fl Gran % (36.0-66.0) % Eos # (Auto) (0-0.5) Absolute Lymphs (auto) (1.0-4.6) Absolute Monos (auto) (0.0-1.3) Lymphocytes % (24.0-44.0) % Monocytes % (0.0-12.0) % Eosinophils % (0.00-5.0) % Basophils % (0.0-0.4) % Absolute Granulocytes (1.4-6.9) Basophils # (0-0.4) Sodium (137-145) mmol/L Potassium (3.5-5.1) mmol/L Chloride (98-107) mmol/L Carbon Dioxide (22-30) mmol/L Anion Gap (5-15) MEQ/L BUN (7-17) mg/dL Creatinine (0.52-1.04) mg/dL Estimated GFR ML/MIN Glucose (74-106) mg/dL Hemoglobin A1c 8.91 H (4.5-6.0) % Calcium (8.4-10.2) mg/dL Total Bilirubin (0.2-1.3) mg/dL AST (14-36) U/L ALT (0-35) U/L Alkaline Phosphatase (38-126) U/L Troponin I 0.013 (0.000-0.034) ng/mL Serum Total Protein (6.3-8.2) g/dL Albumin (3.5-5.0) g/dL Urine Color YELLOW (YELLOW) Urine Appearance SLIGHTLY CLOUDY (CLEAR) Urine pH 7.0 (5-6) Ur Specific Boyle 1.011 (1.005-1.025) Urine Protein >=500 (Negative) Urine Ketones TRACE (NEGATIVE) Urine Blood NEGATIVE (0-5) Min/ul Urine Nitrite NEGATIVE (NEGATIVE) Urine Bilirubin NEGATIVE (NEGATIVE) Urine Urobilinogen NEGATIVE (0-1) mg/dL Ur Leukocyte Esterase TRACE (NEGATIVE) Urine WBC (Auto) 3-5 (0-5) /HPF Urine RBC (Auto) 0-2 (0-2) /HPF U Epithel Cells (Auto) RARE (FEW) /HPF Urine Bacteria (Auto) RARE (NEGATIVE) /HPF Urine Culture Reflexed YES (NO) Urine Glucose NEGATIVE (NEGATIVE) mg/dL Ethyl Alcohol (0-10) mg/dL 12/28/18 12/28/18 12/28/18 Range/Units 15:38 18:45 21:40 WBC (4.0-10.5) K/mm3 RBC (4.1-5.4) M/mm3 Hgb (12.0-16.0) gm/dl Hct (35-47) % MCV (78-100) fl MCH (26-32) pg MCHC (32-36) g/dl RDW (11.5-14.0) % Plt Count (150-450) K/mm3 MPV (6-9.5) fl Gran % (36.0-66.0) % Eos # (Auto) (0-0.5) Absolute Lymphs (auto) (1.0-4.6) Absolute Monos (auto) (0.0-1.3) Lymphocytes % (24.0-44.0) % Monocytes % (0.0-12.0) % Eosinophils % (0.00-5.0) % Basophils % (0.0-0.4) % Absolute Granulocytes (1.4-6.9) Basophils # (0-0.4) Sodium (137-145) mmol/L Potassium (3.5-5.1) mmol/L Chloride (98-107) mmol/L Carbon Dioxide (22-30) mmol/L Anion Gap (5-15) MEQ/L BUN (7-17) mg/dL Creatinine (0.52-1.04) mg/dL Estimated GFR ML/MIN Glucose (74-106) mg/dL Hemoglobin A1c (4.5-6.0) % Calcium (8.4-10.2) mg/dL Total Bilirubin (0.2-1.3) mg/dL AST (14-36) U/L ALT (0-35) U/L Alkaline Phosphatase (38-126) U/L Troponin I 0.017 0.019 0.019 (0.000-0.034) ng/mL Serum Total Protein (6.3-8.2) g/dL Albumin (3.5-5.0) g/dL Urine Color (YELLOW) Urine Appearance (CLEAR) Urine pH (5-6) Ur Specific Boyle (1.005-1.025) Urine Protein (Negative) Urine Ketones (NEGATIVE) Urine Blood (0-5) Min/ul Urine Nitrite (NEGATIVE) Urine Bilirubin (NEGATIVE) Urine Urobilinogen (0-1) mg/dL Ur Leukocyte Esterase (NEGATIVE) Urine WBC (Auto) (0-5) /HPF Urine RBC (Auto) (0-2) /HPF U Epithel Cells (Auto) (FEW) /HPF Urine Bacteria (Auto) (NEGATIVE) /HPF Urine Culture Reflexed (NO) Urine Glucose (NEGATIVE) mg/dL Ethyl Alcohol (0-10) mg/dL 12/29/18 12/29/18 Range/Units 05:18 05:18 WBC 7.9 (4.0-10.5) K/mm3 RBC 4.27 (4.1-5.4) M/mm3 Hgb 13.0 (12.0-16.0) gm/dl Hct 38.6 (35-47) % MCV 90.4 (78-100) fl MCH 30.4 (26-32) pg MCHC 33.7 (32-36) g/dl RDW 12.5 (11.5-14.0) % Plt Count 320 (150-450) K/mm3 MPV 11.8 H (6-9.5) fl Gran % 61.0 (36.0-66.0) % Eos # (Auto) 0.05 (0-0.5) Absolute Lymphs (auto) 2.10 (1.0-4.6) Absolute Monos (auto) 0.90 (0.0-1.3) Lymphocytes % 26.6 (24.0-44.0) % Monocytes % 11.4 (0.0-12.0) % Eosinophils % 0.6 (0.00-5.0) % Basophils % 0.4 (0.0-0.4) % Absolute Granulocytes 4.82 (1.4-6.9) Basophils # 0.03 (0-0.4) Sodium 137 (137-145) mmol/L Potassium 3.7 (3.5-5.1) mmol/L Chloride 99 (98-107) mmol/L Carbon Dioxide 27 (22-30) mmol/L Anion Gap 14.9 (5-15) MEQ/L BUN 18 H (7-17) mg/dL Creatinine 0.97 (0.52-1.04) mg/dL Estimated GFR 59.8 ML/MIN Glucose 188 H (74-106) mg/dL Hemoglobin A1c (4.5-6.0) % Calcium 7.6 L D (8.4-10.2) mg/dL Total Bilirubin 0.50 (0.2-1.3) mg/dL AST 23 (14-36) U/L ALT 16 (0-35) U/L Alkaline Phosphatase 63 (38-126) U/L Troponin I (0.000-0.034) ng/mL Serum Total Protein 7.0 (6.3-8.2) g/dL Albumin 3.8 (3.5-5.0) g/dL Urine Color (YELLOW) Urine Appearance (CLEAR) Urine pH (5-6) Ur Specific Boyle (1.005-1.025) Urine Protein (Negative) Urine Ketones (NEGATIVE) Urine Blood (0-5) Min/ul Urine Nitrite (NEGATIVE) Urine Bilirubin (NEGATIVE) Urine Urobilinogen (0-1) mg/dL Ur Leukocyte Esterase (NEGATIVE) Urine WBC (Auto) (0-5) /HPF Urine RBC (Auto) (0-2) /HPF U Epithel Cells (Auto) (FEW) /HPF Urine Bacteria (Auto) (NEGATIVE) /HPF Urine Culture Reflexed (NO) Urine Glucose (NEGATIVE) mg/dL Ethyl Alcohol (0-10) mg/dL Accuchecks Date 12/29/18 Date 12/28/18 Time 07:00 Time 16:30 Accucheck Value: 188 Accucheck Value: 198 Accucheck Value: 166 Accucheck Value: 235 - Radiology Impressions Radiology Exams & Impressions: Radiology Procedures Category Date Time Status CHEST 1 VIEW (PORTABLE) Stat Exams 12/28/18 09:20 Completed HEAD WITHOUT CONTRAST [CT] Stat Exams 12/28/18 09:20 Completed - Other Procedures and Tests Respiratory Therapy 12/28/18 14:46 Oxygen Nasal Cannula 2 lpm 12/28/18 14:47 Respiratory Therapy Assessment DAILY Assessment/Plan (1) BPPV (benign paroxysmal positional vertigo) Current Visit: Yes Status: Acute Qualifiers: Laterality: unspecified laterality Qualified Code(s): H81.10 - Benign paroxysmal vertigo, unspecified ear Assessment & Plan: Likely. Will have PT work with pt today. Sx better with antivert. Code(s): H81.10 - BENIGN PAROXYSMAL VERTIGO, UNSPECIFIED EAR (2) Chest pain Current Visit: Yes Status: Acute Qualifiers: Chest pain type: unspecified Qualified Code(s): R07.9 - Chest pain, unspecified Assessment & Plan: HI ruled out. She is concerned due to her recent valve replacement but she certainly seems stable. Will keep her on telemetry while she is here for her possible BPPV. Code(s): R07.9 - CHEST PAIN, UNSPECIFIED (3) Diabetes mellitus Current Visit: Yes Status: Chronic Qualifiers: Diabetes mellitus type: type 2 Diabetes mellitus residential insulin use: with residential use Diabetes mellitus complication status: with kidney complications Diabetes mellitus complication detail: with chronic kidney disease Chronic kidney disease stage: stage 2 (mild) Qualified Code(s): E11.22 - Type 2 diabetes mellitus with diabetic chronic kidney disease; N18.2 - Chronic kidney disease, stage 2 (mild); Z79.4 - retirement (current) use of insulin Assessment & Plan: accuchecks. sees Dr. Juan and is generally well controlled. Code(s): E11.9 - TYPE 2 DIABETES MELLITUS WITHOUT COMPLICATIONS (4) Renal insufficiency Current Visit: Yes Status: Chronic Assessment & Plan: stable
[2018-12-29] MEDS ORDERED: NON-FORMULARY ITEM (Pravastatin Sodium [Pravastatin Sodium] 10 MG) PO SCH (10:00)
[2018-12-29] MEDS ORDERED: NON-FORMULARY ITEM (Spironolactone [Aldactone] 50 MG) PO SCH (10:00)
[2018-12-29] MEDS ORDERED: Ecotrin 325 MG PO SCH (10:00)
[2018-12-29] MEDS ORDERED: NON-FORMULARY ITEM (Losartan Potassium [Losartan Potassium] 25 MG) PO SCH (10:00)
[2018-12-29] MEDS ORDERED: NON-FORMULARY ITEM (Cetirizine Hcl [Zyrtec] 10 MG) PO SCH (10:00)
[2018-12-29] MEDS: MAG-OX 400 PO SCH ×3 (10:18→22:14)
[2018-12-29] MEDS: SYNTHROID 125 MCG PO SCH (10:18)
[2018-12-29] MEDS: SYNTHROID 100 MCG PO SCH (10:19)
[2018-12-29] MEDS: Pepcid 20 MG PO SCH ×2 (10:19→22:14)
[2018-12-29] MEDS: xanAX 0.5 MG PO SCH ×3 (10:19→22:14)
[2018-12-29] MEDS: Aldactone 25 MG PO SCH (10:19)
[2018-12-29] MEDS: PLAVIX 75 MG Tablet PO SCH (10:19)
[2018-12-29] MEDS: ECOTRIN 81 MG PO SCH (10:19)
[2018-12-29] MEDS: NEURONTIN 300 MG PO SCH ×3 (10:20→22:14)
[2018-12-29] MEDS: NORVASC 5 MG PO SCH (10:20)
[2018-12-29] MEDS: Singulair 10 MG PO SCH (10:20)
[2018-12-29] MEDS: FEOSOL 325 MG PO SCH ×2 (10:20→22:14)
[2018-12-29] MEDS: Cozaar 50 MG PO SCH (10:20)
[2018-12-29] MEDS: CLARITIN 10 MG PO SCH (10:20)
[2018-12-29] MEDS: NovoLOG Insulin SQ PRN ×2 (12:34→17:58)
[2018-12-30] MEDS: PLAVIX 75 MG Tablet PO SCH (08:43)
[2018-12-30] MEDS: NEURONTIN 300 MG PO SCH ×2 (08:43→14:36)
[2018-12-30] MEDS: xanAX 0.5 MG PO SCH ×2 (08:43→14:36)
[2018-12-30] MEDS: Singulair 10 MG PO SCH (08:44)
[2018-12-30] MEDS: FEOSOL 325 MG PO SCH (08:44)
[2018-12-30] MEDS: SYNTHROID 100 MCG PO SCH (08:44)
[2018-12-30] MEDS: NORVASC 5 MG PO SCH (08:44)
[2018-12-30] MEDS: ECOTRIN 81 MG PO SCH (08:44)
[2018-12-30] MEDS: Aldactone 25 MG PO SCH (08:44)
[2018-12-30] MEDS: MAG-OX 400 PO SCH ×2 (08:44→14:36)
[2018-12-30] MEDS: CLARITIN 10 MG PO SCH (08:45)
[2018-12-30] MEDS: SYNTHROID 125 MCG PO SCH (08:45)
[2018-12-30] MEDS: Cozaar 50 MG PO SCH (08:45)
[2018-12-30] MEDS: Lantus Insulin SQ SCH ×2 (08:45→17:27)
[2018-12-30] MEDS: Pepcid 20 MG PO SCH (08:45)
[2018-12-30] MEDS: ANTIVERT 25 MG PO PRN (08:47)
--- NOTE | 2018-12-30 14:46 | PCM.DS ---
Discharge Summary Date of Admission: 12/28/18 13:20 Admitting Physician: DEBI HEART Primary Care Provider: DEBI HEART Allergies Allergies albuterol Allergy (Intermediate, Verified 12/28/18 09:09) Swelling of Tongue and Lips clonazepam [From Klonopin] Allergy (Verified 12/28/18 09:09) Tightness of Throat tongue swollen propranolol HCl [From Inderal LA] Allergy (Verified 12/28/18 09:09) Swelling of Tongue and Lips red face and ears Sulfa (Sulfonamide Antibiotics) Allergy (Verified 12/28/18 09:09) Swelling of Tongue and Lips throat swell,ears red venom-honey bee [bee venom (honey bee)] Allergy (Verified 12/28/18 09:09) Hives large hives zanamivir [From Relenza Diskhaler] Allergy (Verified 12/28/18 09:09) Swelling of Tongue and Lips throat tightness Hospital Summary - Hospital Course Hospital Course: is a 73 year old female pt of mine from [facility] with COPD, anemia, chronic renal disease, hx breast ca (and mastectomy), hx CVA, hypothyroidism, DM II, celiac disease, and recent transcatheter bovine aortic valve replacement (Aug 2018) who came to the ER complaining of vertigo x3d. Her head CT was negative. Her story was suspicious for BPPV so I consulted PT who found her somewhat positive on testing. They did modified Eppley maneuver and will see her in outpatient therapy to continue treatment. Taking antivert with some relief as well. She did have some chest pain and ruled out for AR with neg troponins x 5. Her inital EKG with some sinus arrhythmia; f/u EKG with sinus rhythm, LVH, L axis deviation, no acute ST changes. When I saw her this afternoon she complained of having had some chest pain this morning (she thinks she was just hungry) so will do one more troponin - if negative she should be fine to go home. - Vitals & Intake/Output Vital Signs: Vital Signs Temperature 98 F 12/30/18 12:00 Pulse Rate 80 12/30/18 12:00 Respiratory Rate 20 12/30/18 12:00 Blood Pressure 135/74 12/30/18 12:00 O2 Sat by Pulse Oximetry 99 12/30/18 12:00 Oxygen-Last Documented O2 Percentage 2 Liters = 28% Intake & Output: Intake & Output 12/28/18 12/29/18 12/30/18 12/31/18 11:59 11:59 11:59 11:59 Intake Total 1460 2380 480 Output Total 4000 3300 600 Balance -2540 -920 -120 Weight 81.647 kg 79.4 kg 79.8 kg - Lab Result Diagrams: 12/29/18 05:18 12/29/18 05:18 Lab Results-Last 24 Hrs: Accuchecks Date 12/30/18 Date 12/30/18 Date 12/29/18 Time 11:30 Time 07:30 Time 21:00 Accucheck Value: 151 Accucheck Value: 118 Accucheck Value: 142 Micro Results-Entire Visit: Microbiology 12/28/18 11:02 Urine Culture - Final Clean Catch Midstream MIXED JOSHUA; 3 OR MORE TYPES. NO PREDOMINANT ORGANISM. NO FURTHER WORKUP. PLEASE RESUBMIT IF CLINICALLY INDICATED. Accuchecks Date 12/30/18 Date 12/30/18 Date 12/29/18 Time 11:30 Time 07:30 Time 21:00 Accucheck Value: 151 Accucheck Value: 118 Accucheck Value: 142 - Procedures and Test Procedures and Tests throughout Hospitalization: Therapy Orders & Screens 12/28/18 14:46 Oxygen Nasal Cannula 2 lpm Comment: Diagnosis: dizziness 12/28/18 14:47 Respiratory Therapy Assessment DAILY Comment: Diagnosis: dizziness 12/29/18 08:45 PT Eval & Treat (MD Order) ROUTINE Reason for Eval:: possible BPPV Diagnosis: dizziness Discharge Exam General Appearance: no apparent distress, alert Neurologic Exam: oriented x 3, cooperative, welfare director II-XII nml as tested, normal mood/affect Eye Exam: eyes nml inspection Respiratory Exam: lungs clear, diminished breath sounds, prolonged expirations, No crackles/rales, No rhonchi, No wheezing Cardiovascular Exam: regular rate/rhythm, normal heart sounds, No murmur Gastrointestinal/Abdomen Exam: soft, normal bowel sounds, No tenderness, No distention, No mass, No guarding, No rebound Back Exam: normal inspection, No rash Extremity Exam: normal inspection, swelling (trace pretibial edema bilat) Skin Exam: normal color, warm, dry, No rash Final Diagnosis/Problem List - Final Discharge Diagnosis/Problem (1) BPPV (benign paroxysmal positional vertigo) Current Visit: Yes Status: Acute Assessment & Plan: Home with antivert today. F/u outpatient with PT (pt already has appointment). Code(s): H81.10 - BENIGN PAROXYSMAL VERTIGO, UNSPECIFIED EAR (2) Chest pain Current Visit: Yes Status: Resolved Assessment & Plan: If this troponin is negative, fine to d/c home today. Has been stable. Will send copy of this summary to [place] [facility]. Code(s): R07.9 - CHEST PAIN, UNSPECIFIED (3) Diabetes mellitus Current Visit: Yes Status: Chronic Code(s): E11.9 - TYPE 2 DIABETES MELLITUS WITHOUT COMPLICATIONS (4) Renal insufficiency Current Visit: Yes Status: Chronic - Discharge Disposition: Home, Self-Care Condition: Good Prescriptions: New Meclizine HCl 25 mg [Antivert 25 mg] 25 mg PO TID PRN PRN #60 tablet PRN Reason: Dizziness Continue Cetirizine HCl [Zyrtec] 10 mg PO DAILY Ferrous Sulfate [Iron] 325 mg PO BID Spironolactone [Aldactone] 50 mg PO DAILY Levothyroxine Sodium 150 Mcg [Synthroid 150 Mcg] 225 mcg PO DAILY ALPRAZolam [Xanax 0.5 mg] 0.5 mg PO TID Magnesium Oxide 400 mg [Mag-Ox 400] 750 mg PO TID Calcium Carbonate [Calcium] 1,000 mg PO DAILY Amlodipine Besylate 5 mg [Norvasc 5 mg] 5 mg PO DAILY Cyanocobalamin (Vitamin B-12) [Vitamin B12] 1,000 mcg PO DAILY Diphenoxylate HCl/Atropine [Lomotil] 1 tab PO TID Montelukast Sodium 10 mg [Singulair 10 MG] 10 mg PO DAILY Clopidogrel Bisulfate [Clopidogrel] 75 mg PO DAILY Losartan Potassium 25 mg PO DAILY Gabapentin 300 mg PO TID Pravastatin Sodium 10 mg PO DAILY Insulin Glargine,Hum.rec.anlog [Basaglar Kwikpen U-100] 34 units AC Ranitidine HCl [Zantac] 150 mg BID Aspirin EC 81 mg [Ecotrin 81 mg] 81 mg PO DAILY Insulin Glargine,Hum.rec.anlog [Basaglar Kwikpen U-100] 10 units SQ EVENING MEAL Insulin Aspart [NovoLOG Insulin] 1 units SQ UD Follow up with: DEBI HEART [Primary Care Provider] - 01/04/19 10:15 am
[2018-12-30 16:18] VITALS: BP 121/77; PULSE 75; O2SAT 96
== END 2018-12-30 17:40 | disposition home or self-care (01) ==
LOC: ED 08:56 → MED SURG 13:20
PROVIDERS: ADMIT Family Medicine; ATTEND Family Medicine
DX: H81.10 Benign paroxysmal vertigo, unspecified ear (principal); R07.9 Chest pain, unspecified; J44.9 Chronic obstructive pulmonary disease, unspecified; E11.9 Type 2 diabetes mellitus without complications; D64.9 Anemia, unspecified; N28.9 Disorder of kidney and ureter, unspecified; I10 Essential (primary) hypertension; E03.9 Hypothyroidism, unspecified; E78.00 Pure hypercholesterolemia, unspecified; Z85.3 Personal history of malignant neoplasm of breast; Z79.899 Other long term (current) drug therapy; Z79.4 Long term (current) use of insulin; Z86.73 Personal history of transient ischemic attack (TIA), and cerebral infarction without residual deficits
CPT/HCPCS: 36000; 36415; 70450; 71045; 80053; 81001; 82962; 83036; 84484; 85025; 87086; 93005; 93268; 94762; 95992; 96360; 96361; 97162; 99285; G0378; G0480; 80307; A9270-GY

== ENCOUNTER 2021-02-15 18:25 | Emergency (ER) | payer MEDICARE ==
[2021-02-15] MEDS ORDERED: NORCO 5/325 MG PO ONE ×2 (18:59→20:42)
[2021-02-15] MEDS ORDERED: NORCO 5/325 MG ONE ×2 (19:15→20:52)
--- NOTE | 2021-02-15 20:43 | ERPHSYRPT ---
- History of Present Illness Time Seen by Provider: 02/15/21 18:30 Source: patient Exam Limitations: no limitations Patient Subjective Stated Complaint: Pt was reaching over in a car to the cup carreon when she heard a "pop" in her right shoulder Triage Nursing Assessment: Pt brought to the ER by her friend, hypertensive, holding right arm, can not move shoulder backwards, pulses normal, rates pain 8/10, skin n/w/d Physician History: 75 years old female right-handed dominant presented in the ER with chief complaint of right shoulder pain sudden onset when she leaned over to grab a cup from her car prior to arrival and heard a popping sound in the right shoulder with sudden severe sharp pain limiting movements of the right shoulder. Denies any numbness tingling or weakness of right upper extremity. No fall or injury anywhere else. Occurred: just prior to arrival Quality: sharpness Severity of Pain-Max: severe Severity of Pain-Current: severe Extremities Pain Location: shoulder: right Modifying Factors: Improves With: cold therapy, immobilization. Worsens With: movement Associated Symptoms: none Allergies/Adverse Reactions: albuterol Allergy (Intermediate, Verified 02/15/21 18:40) Swelling of Tongue and Lips propranolol [From Inderal LA] Allergy (Intermediate, Verified 02/15/21 18:40) red face and ears clonazepam [From Klonopin] Allergy (Verified 02/15/21 18:40) Tightness of Throat tongue swollen metoclopramide [From Reglan] Allergy (Verified 02/15/21 18:41) propranolol HCl [From Inderal LA] Allergy (Verified 02/15/21 18:40) Swelling of Tongue and Lips red face and ears Sulfa (Sulfonamide Antibiotics) Allergy (Verified 02/15/21 18:40) Swelling of Tongue and Lips throat swell,ears red terfenadine Allergy (Verified 02/15/21 18:41) venom-honey bee [bee venom (honey bee)] Allergy (Verified 02/15/21 18:40) Hives large hives zanamivir [From Relenza Diskhaler] Allergy (Verified 02/15/21 18:40) Swelling of Tongue and Lips throat tightness cilostazol [From Pletal] Adverse Reaction (Severe, Verified 02/15/21 18:40) Swelling of Tongue and Lips ticagrelor [From Brilinta] Adverse Reaction (Severe, Verified 0718/21 18:40) Swelling of Tongue and Lips Home Medications: ALPRAZolam [Xanax 0.5 mg] 0.5 mg PO TID 11/13/13 [History] Cetirizine HCl [Zyrtec] 10 mg PO DAILY 11/13/13 [History] Ferrous Sulfate [Iron] 325 mg PO BID 11/13/13 [History] Magnesium Oxide 400 mg [Mag-Ox 400] 750 mg PO TID 11/13/13 [History] Spironolactone [Aldactone] 50 mg PO DAILY 11/13/13 [History] Amlodipine Besylate 5 mg [Norvasc 5 mg] 5 mg PO DAILY 12/22/14 [History] Calcium Carbonate [Calcium] 1,000 mg PO DAILY 12/22/14 [History] Cyanocobalamin (Vitamin B-12) [Vitamin B12] 1,000 mcg PO DAILY 09/14/16 [History] Diphenoxylate HCl/Atropine [Lomotil] 1 tab PO TID 09/14/16 [History] Clopidogrel Bisulfate [Clopidogrel] 75 mg PO DAILY 01/20/18 [History] Gabapentin 300 mg PO TID 01/20/18 [History] Losartan Potassium 25 mg PO DAILY 01/20/18 [History] Montelukast Sodium 10 mg [Singulair 10 MG] 10 mg PO DAILY 01/20/18 [History] Pravastatin Sodium 10 mg PO DAILY 01/20/18 [History] Aspirin EC 81 mg [Ecotrin 81 mg] 81 mg PO DAILY 12/28/18 [History] Insulin Aspart [NovoLOG Insulin] 1 units SQ UD 12/28/18 [History] Insulin Glargine,Hum.rec.anlog [Basaglar Kwikpen U-100] 10 units SQ EVENING MEAL 12/28/18 [History] Insulin Glargine,Hum.rec.anlog [Basaglar Kwikpen U-100] 34 units AC 12/28/18 [History] raNITIdine HCl [Zantac] 150 mg BID 12/28/18 [History] Amlodipine Besylate [Norvasc] 10 mg PO DAILY 12/02/20 [History] Buspirone HCl 5 mg [Buspar 5 mg] 5 mg PO DAILY 12/02/20 [History] Calcium Carbonate [Calcium] 600 mg PO TID 12/02/20 [History] Cetirizine HCl [Zyrtec] 10 mg PO DAILY 12/02/20 [History] Cyanocobalamin (Vitamin B-12) [B-12] 1,000 mcg PO DAILY 12/02/20 [History] Diphenoxylate HCl/Atropine [Lomotil] 1 udtab PO UD 12/02/20 [History] Famotidine 20 mg PO BID 12/02/20 [History] Famotidine 20 mg [Pepcid 20 MG] 20 mg PO BID 12/02/20 [History] Gabapentin 300 mg [Neurontin 300 mg] 300 mg PO TID 12/02/20 [History] Iron,Carb/Vit C/Vit B12/Folic [Iron 100 Plus Tablet] 65 mg PO DAILY 12/02/20 [Hi story] Levothyroxine Sodium [Unithroid] 300 mcg PO DAILY 12/02/20 [History] Losartan Potassium [Cozaar] 25 mg PO DAILY 12/02/20 [History] Magnesium Oxide 400 mg [Mag-Ox 400] 400 mg PO TID 12/02/20 [History] Pravastatin Sodium 20 mg PO DAILY 12/02/20 [History] Spironolactone 25 mg [Aldactone 25 MG] 25 mg PO DAILY 12/02/20 [History] Suvorexant [Belsomra] 4 mg PO HS 12/02/20 [History] Levothyroxine Sodium 25 mcg PO DAILY 02/15/21 [History] Hx Tetanus, Diphtheria Vaccination/Date Given: Yes (2009) Hx Influenza Vaccination/Date Given: Yes Hx Pneumococcal Vaccination/Date Given: Yes Travel Risk - International Travel Have you traveled outside of the country in past 3 weeks: No - Coronavirus Screening Are you exhibiting any of the following symptoms?: No Close contact with a COVID-19 positive Pt in past 14-21 Days: No - Vaccine Status Have you recieved a Covid-19 vaccination: Yes [place] Tender: Moderna - Vaccination Dates Date of 2cond Vaccination (if applicable): 09/2020 - Review of Systems Constitutional: No Symptoms Ears, Nose, & Throat: No Symptoms Respiratory: No Symptoms Cardiac: No Symptoms Abdominal/Gastrointestinal: No Symptoms Genitourinary Symptoms: No Symptoms Musculoskeletal: Arthralgias, Joint Pain Neurological: No Symptoms Psychological: No Symptoms, Hallucinations Hematologic/Lymphatic: No Symptoms Immunological/Allergic: No Symptoms - Past Medical History Pertinent Past Medical History: Yes Neurological History: TIA, Peripheral Neuropathy ENT History: No Pertinent History, Other Cardiac History: Hypertension Respiratory History: COPD Endocrine Medical History: Diabetes Type II, Hypothyroidism Musculoskeletal History: No Pertinent History GI Medical History: Other, GERD History: No Pertinent History Psycho-Social History: Anxiety Female Reproductive Disorders: Breast Cancer Other Medical History: right eye retinal scratch November 2020 - Past Surgical History Past Surgical History: Yes Neuro Surgical History: No Pertinent History Cardiac: Other, Vascular Surgery Respiratory: No Pertinent History Gastrointestinal: Hernia Repair Genitourinary: No Pertinent History Musculoskeletal: No Pertinent History Female Surgical History: No Pertinent History, Mastectomy, Lumpectomy Other Surgical History: left mastectomy 1993, right lumpectomy, right thyroid removed, left thyroid removed with goiter, pbuc mass, hernia repair , left knee scope, valve replacement - Social History Smoking Status: Former smoker Exposure to second hand smoke: Yes Drug Use: none Patient Lives Alone: Yes - Female History Hx Now: No - Nursing Vital Signs Nursing Vital Signs: Initial Vital Signs Temperature 99.1 F 02/15/21 18:33 Pulse Rate 94 H 02/15/21 18:33 Blood Pressure 158/112 02/15/21 18:33 O2 Sat by Pulse Oximetry 98 02/15/21 18:33 Pain Scale Pain Intensity 5 - Physical Exam General Appearance: no apparent distress, alert Neck Exam: normal inspection, non-tender, supple, full range of motion Cardiovascular/Respiratory Exam: chest non-tender, normal breath sounds, regular rate/rhythm Back Exam: normal inspection, normal range of motion Shoulder Exam: normal inspection, limited ROM (Right shoulder with tenderness in the deltoid and AC joint area), pain, soft tissue tenderness Elbow/Forearm Exam: normal inspection, non-tender, no evidence of injury, normal ROM Wrist Exam: normal inspection, normal ROM Hand Exam: normal inspection, normal ROM Neuro/Tendon Exam: normal sensation, normal motor functions Mental Status Exam: alert, oriented x 3, cooperative Skin Exam: normal color SpO2 Interpretation: normal SpO2: 98 O2 Delivery: Room Air Ordered Tests: Active Orders 24 hr Category Date Time Status SHOULDER Stat Exams 02/15/21 19:42 Taken Medication Summary Discontinued Medications Generic Name Dose Route Start Last Admin Trade Name Pavel PRN Reason Stop Dose Admin Hydrocodone Bitart/Acetaminophen 1 tab 02/15/21 18:59 02/15/21 19:17 [place] 5/325 Mg PO 02/15/21 19:00 1 tab STAT ONE Administration Hydrocodone Bitart/Acetaminophen Confirm 02/15/21 19:15 [place] 5/325 Mg Administered 02/15/21 19:16 Dose 1 tab .ROUTE .STK-MED ONE Hydrocodone Bitart/Acetaminophen 2 tab 02/15/21 20:42 02/15/21 20:53 [place] 5/325 Mg PO 02/15/21 20:43 2 tab SENT HOME W/ PATIENT ONE Administration Hydrocodone Bitart/Acetaminophen Confirm 02/15/21 20:52 [place] 5/325 Mg Administered 02/15/21 20:53 Dose 2 tab .ROUTE .STK-MED ONE - Progress Progress: improved Progress Note: 02/15/21 20:41 She is given pain medication for symptomatic relief, x-rays ruled out fracture dislocation. I believe patient has strain/sprain of ligaments. Placed in a sling, recommended outpatient Ortho follow-up. Pain medications as needed. Discussed signs symptoms of worsening needing return to ER which she seemed understanding. Counseled pt/family regarding: diagnosis, need for follow-up, rad results - Departure Departure Disposition: Home Clinical Impression: Sprain of right shoulder joint Qualifiers: Encounter type: initial encounter Shoulder sprain type: unspecified sprain Qualified Code(s): S43.401A - Unspecified sprain of right shoulder joint, initial encounter Condition: Stable Critical Care Time: No Referrals: DEBI CARDENAS [Primary Care Provider] - Follow Up with PCP/3 days ORTHO - YANDY MIRANDA NP [NON-STAFF PHY W/O PRIVILEGES] - (1-2 days for reevaluation.) Instructions: Shoulder Tendinopathy (DC), Shoulder Sprain (DC) Additional Instructions: Take Tylenol/pain medications as needed for symptomatic relief. Follow-up with primary care and orthopedic surgery for reevaluation. Return to ER for worsening pain, difficulty movements, numbness tingling weakness of right upper extremity.
[2021-02-15 20:53] VITALS: BP 166/92; PULSE 88
[2021-02-15 22:34] VITALS: O2SAT 98
--- NOTE | 2021-02-16 08:49 | XRAY ---
Indication: Pain following injury. Comparison: None 3 view right shoulder demonstrates osteopenia, moderate AC degenerative arthropathy, mild multilevel degenerative spondylosis, tiny right perihilar calcified granulomas, and partially visualized cardiac valve replacement. No other bony, articular, or soft tissue abnormalities. Comment: Preliminary interpretation was made by [facility]. No critical discrepancy.
== END 2021-02-15 20:54 | disposition home or self-care (01) ==
LOC: ED 18:25
DX: S43.401A Unspecified sprain of right shoulder joint, initial encounter (principal); X50.9XXA Other and unspecified overexertion or strenuous movements or postures, initial encounter; Y93.89 Activity, other specified; Y92.89 Other specified places as the place of occurrence of the external cause; Z79.899 Other long term (current) drug therapy; E11.9 Type 2 diabetes mellitus without complications; E03.9 Hypothyroidism, unspecified; J44.9 Chronic obstructive pulmonary disease, unspecified; G62.9 Polyneuropathy, unspecified; I10 Essential (primary) hypertension; K21.9 Gastro-esophageal reflux disease without esophagitis; Z85.3 Personal history of malignant neoplasm of breast
CPT/HCPCS: 73030; 99283; A9270-GY

== ENCOUNTER 2021-07-02 12:54 | Observation (INO) | payer MEDICARE ==
[2021-07-02] MEDS ORDERED: Zofran 4 MG/2 ML VIAL IV PRN (13:47)
[2021-07-02] MEDS ORDERED: MORPHINE SULFATE 4 MG INJ IV PRN (13:48)
[2021-07-02] MEDS ORDERED: Lactated Ringers 1,000 ML IV SCH (14:00)
[2021-07-02 16:52] LABS: Absolute Neutrophil Ct (ANC) 6.14 (1.4-6.9); BASOPHIL % 0.3 % (0.0-0.4); Basophil (Absolute #) 0.03 (0-0.4); Eosinophil % 1.9 % (0.00-5.0); Eosinophil (Absolute #) 0.19 (0-0.5); Hematocrit 39.1 % (35-47); Hemoglobin 12.9 gm/dl (12.0-16.0); Lymphocyte (Absolute #) 2.53 (1.0-4.6); Lymphocytes % 25.9 % (24.0-44.0); Mean Cell Volume 89.1 fl (78-100); Mean Corpuscular Hemoglobin 29.4 pg (26-32); Mean Platelet Volume 12.3 fl (7.5-11.0); Monocyte (Absolute #) 0.88 (0.0-1.3); Neutrophil % 62.9 % (36.0-66.0); Platelet Count 363 K/mm3 (150-450); Red Blood Count 4.39 M/mm3 (4.1-5.4); White Blood Count 9.8 K/mm3 (4.0-10.5)
[2021-07-02 17:07] LABS: ALBUMIN 4.2 g/dL (3.5-5.0); ANION GAP 14.3 MEQ/L (5-15); BILIRUBIN,TOTAL 0.5 mg/dL (0.2-1.3); Calcium 9.2 mg/dL (8.4-10.2); Creatinine 1 1.59 mg/dL (0.52-1.04); EST GLOMERULAR FILTRATION RATE 33.6 ML/MIN; Potassium 4.5 mmol/L (3.5-5.1); Total Protein 7.4 g/dL (6.3-8.2)
[2021-07-02] MEDS: Dextrose 5% -0.45 NaCl 1000 ML 1,000 ML IV SCH (18:42)
[2021-07-02 20:23] LABS: Slide Review 1 YES
[2021-07-02] MEDS ORDERED: Ativan 1 MG PO PRN (20:53)
[2021-07-02] MEDS ORDERED: ANTIVERT 25 MG PO PRN (21:15)
[2021-07-02 21:58] LABS: Amourphous Crystal FEW /HPF (NEGATIVE); Appearance CLOUDY (CLEAR); Bacteria RARE /HPF (NEGATIVE); Bilirubin NEGATIVE (NEGATIVE); Blood NEGATIVE Ery/ul (0-5); Epithelial Cells RARE /HPF (FEW); Glucose NEGATIVE (NEGATIVE); Hyaline Casts 0-2 /LPF (0-2); Ketones NEGATIVE (NEGATIVE); Leukocyte Esterase SMALL (NEGATIVE); Nitrite NEGATIVE (NEGATIVE); Protein,Urine Dip 100 (Negative); Specific Gravity 1.009 (1.005-1.025); Urobilinogen NEGATIVE mg/dL (0-1)
[2021-07-03] MEDS: MAG-OX 400 PO SCH ×4 (00:20→21:50)
[2021-07-03] MEDS: BUSPAR 5 MG PO SCH ×3 (00:20→21:51)
[2021-07-03] MEDS: Pepcid 20 MG PO SCH ×3 (00:20→21:51)
[2021-07-03] MEDS: NEURONTIN 300 MG PO SCH ×4 (00:20→21:50)
[2021-07-03] MEDS: Lomotil PO SCH ×6 (00:22→21:50)
--- NOTE | 2021-07-03 08:28 | XRAY ---
Exam: Supine film of the abdomen from 07/02/2021. Comparison: None. Indication: Abdominal pain, arrhythmia, nausea/vomiting/diarrhea with loss of appetite. Findings: The bowel gas pattern appears unremarkable/nonobstructed. There is some scattered stool within the right hemicolon and distal descending colon. No organomegaly is seen. Dense vascular calcification is seen within the abdominal aorta and mesenteric arteries of the upper abdomen. A definite aneurysm is not seen. Surgical material is seen overlying the right inguinal region consistent with a prior mesh graft. 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 Mild to moderate degenerative changes are seen within the lower thoracolumbar spine. Impression: 1. The bowel gas pattern appears essentially unremarkable with some scattered colonic stool. I see no evidence to suggest bowel obstruction. 2. Other incidental findings, as discussed above.
[2021-07-03] MEDS: Dextrose 5% -0.45 NaCl 1000 ML 1,000 ML IV SCH ×2 (08:31→21:55)
--- NOTE | 2021-07-03 08:59 | PCM.NOTE ---
Date and Time: 07/03/21 0858 Subjective Assessment: patient feeling better, denies pain today. seems comfortable, voices no concerns. Objective Exam General Appearance: no apparent distress Neurologic Exam: alert, oriented x 3 Respiratory Exam: normal breath sounds, lungs clear, No respiratory distress Cardiovascular Exam: regular rate/rhythm, normal heart sounds Gastrointestinal/Abdomen Exam: soft, No tenderness, No mass Extremity Exam: normal inspection, normal range of motion OBJECTIVE DATA Vital Signs: Vital Signs - 24 hr Temp Pulse Resp BP Pulse Ox 07/03/21 03:51 97.7 F 99 H 18 142/85 99 07/03/21 00:00 100.4 F 97 H 20 146/94 98 07/02/21 19:35 98.6 F 89 18 141/92 96 07/02/21 16:20 98.0 F 80 16 151/93 95 Pain Assessment - Last Documented Pain Intensity 5 Intake and Output: Intake & Output 06/30/21 07/01/21 07/02/21 07/03/21 11:59 11:59 11:59 11:59 Intake Total 603 Output Total 950 Balance -347 Weight 75.7 kg Lab Results: Lab Results-Last 24 Hours 07/02/21 07/02/21 07/02/21 Range/Units 16:15 16:37 16:37 WBC 9.8 (4.0-10.5) K/mm3 RBC 4.39 (4.1-5.4) M/mm3 Hgb 12.9 (12.0-16.0) gm/dl Hct 39.1 (35-47) % MCV 89.1 (78-100) fl MCH 29.4 (26-32) pg MCHC 33.0 (32-36) g/dl RDW 12.0 (11.5-14.0) % Plt Count 363 (150-450) K/mm3 MPV 12.3 H (7.5-11.0) fl Gran % 62.9 (36.0-66.0) % Eos # (Auto) 0.19 (0-0.5) Absolute Lymphs (auto) 2.53 (1.0-4.6) Absolute Monos (auto) 0.88 (0.0-1.3) Lymphocytes % 25.9 (24.0-44.0) % Monocytes % 9.0 (0.0-12.0) % Eosinophils % 1.9 (0.00-5.0) % Basophils % 0.3 (0.0-0.4) % Absolute Granulocytes 6.14 (1.4-6.9) Basophils # 0.03 (0-0.4) Sodium 134 L (137-145) mmol/L Potassium 4.5 (3.5-5.1) mmol/L Chloride 97 L (98-107) mmol/L Carbon Dioxide 28 (22-30) mmol/L Anion Gap 14.3 (5-15) MEQ/L BUN 36 H (7-17) mg/dL Creatinine 1.59 H (0.52-1.04) mg/dL Estimated GFR 33.6 ML/MIN Glucose 73 L (74-106) mg/dL POC Glucometer (74 to 106) mg/dL Calcium 9.2 (8.4-10.2) mg/dL Total Bilirubin 0.50 (0.2-1.3) mg/dL AST 32 (14-36) U/L ALT 18 (0-35) U/L Alkaline Phosphatase 82 (38-126) U/L Serum Total Protein 7.4 (6.3-8.2) g/dL Albumin 4.2 (3.5-5.0) g/dL Amylase 46 (30-110) U/L Lipase 67 (23-300) U/L Urine Color YELLOW (YELLOW) Urine Appearance CLOUDY (CLEAR) Urine pH 6.0 (5-6) Ur Specific Harper 1.009 (1.005-1.025) Urine Protein 100 (Negative) Urine Ketones NEGATIVE (NEGATIVE) Urine Blood NEGATIVE (0-5) Min/ul Urine Nitrite NEGATIVE (NEGATIVE) Urine Bilirubin NEGATIVE (NEGATIVE) Urine Urobilinogen NEGATIVE (0-1) mg/dL Ur Leukocyte Esterase SMALL (NEGATIVE) Urine WBC (Auto) 16-25 (0-5) /HPF Urine RBC (Auto) 3-5 (0-2) /HPF U Hyaline Cast (Auto) 0-2 (0-2) /LPF U Epithel Cells (Auto) RARE (FEW) /HPF Urine Bacteria (Auto) RARE (NEGATIVE) /HPF Amorphous Crystals FEW (NEGATIVE) /HPF Urine Culture Reflexed ORDERED SEPARATELY (NO) Urine Glucose NEGATIVE (NEGATIVE) mg/dL Slides for Path Review YES 07/02/21 07/03/21 07/03/21 Range/Units 20:31 01:15 08:08 WBC (4.0-10.5) K/mm3 RBC (4.1-5.4) M/mm3 Hgb (12.0-16.0) gm/dl Hct (35-47) % MCV (78-100) fl MCH (26-32) pg MCHC (32-36) g/dl RDW (11.5-14.0) % Plt Count (150-450) K/mm3 MPV (7.5-11.0) fl Gran % (36.0-66.0) % Eos # (Auto) (0-0.5) Absolute Lymphs (auto) (1.0-4.6) Absolute Monos (auto) (0.0-1.3) Lymphocytes % (24.0-44.0) % Monocytes % (0.0-12.0) % Eosinophils % (0.00-5.0) % Basophils % (0.0-0.4) % Absolute Granulocytes (1.4-6.9) Basophils # (0-0.4) Sodium (137-145) mmol/L Potassium (3.5-5.1) mmol/L Chloride (98-107) mmol/L Carbon Dioxide (22-30) mmol/L Anion Gap (5-15) MEQ/L BUN (7-17) mg/dL Creatinine (0.52-1.04) mg/dL Estimated GFR ML/MIN Glucose (74-106) mg/dL POC Glucometer 104 162 H 274 H (74 to 106) mg/dL Calcium (8.4-10.2) mg/dL Total Bilirubin (0.2-1.3) mg/dL AST (14-36) U/L ALT (0-35) U/L Alkaline Phosphatase (38-126) U/L Serum Total Protein (6.3-8.2) g/dL Albumin (3.5-5.0) g/dL Amylase (30-110) U/L Lipase (23-300) U/L Urine Color (YELLOW) Urine Appearance (CLEAR) Urine pH (5-6) Ur Specific Harper (1.005-1.025) Urine Protein (Negative) Urine Ketones (NEGATIVE) Urine Blood (0-5) Min/ul Urine Nitrite (NEGATIVE) Urine Bilirubin (NEGATIVE) Urine Urobilinogen (0-1) mg/dL Ur Leukocyte Esterase (NEGATIVE) Urine WBC (Auto) (0-5) /HPF Urine RBC (Auto) (0-2) /HPF U Hyaline Cast (Auto) (0-2) /LPF U Epithel Cells (Auto) (FEW) /HPF Urine Bacteria (Auto) (NEGATIVE) /HPF Amorphous Crystals (NEGATIVE) /HPF Urine Culture Reflexed (NO) Urine Glucose (NEGATIVE) mg/dL Slides for Path Review Radiology Exams: Radiology Procedures Category Date Time Status ABDOMEN AND PELVIS W/0 CONTRAS [CT] Urgent Exams 07/02/21 16:30 Taken ABDOMINAL-LIMITED [US] Urgent Exams 07/03/21 01:00 Ordered KUB Routine Exams 07/02/21 16:30 Completed Assessment/Plan (1) Abdominal pain Current Visit: Yes Status: Acute Assessment & Plan: ct scan nonacute, will puruse renal ultrasound. start house regular diet, if has problems consider addition of reglan per Dr Rojas her PCP Code(s): R10.9 - UNSPECIFIED ABDOMINAL PAIN (2) Kidney lesion, [place], right Current Visit: Yes Status: Acute Code(s): N28.9 - DISORDER OF KIDNEY AND UR ETER, UNSPECIFIED
--- NOTE | 2021-07-03 09:10 | XRAY ---
Exam: CT of the abdomen and pelvis without IV contrast from 07/02/2021. CTDI: 8.69 mGy Comparison: Supine film of the abdomen from earlier this evening on 07/02/2021. Indication: 76-year-old female with localized right lower quadrant abdominal pain; history of prior right inguinal hernia repair; abdominal pain is associated with nausea, vomiting, and diarrhea with loss of appetite for 2 days. Technique: Non-IV contrast axial images were obtained through the abdomen and pelvis. Reconstructed coronal and sagittal images were created and reviewed. No IV contrast was given because of a decreased GFR. Oral contrast with Redicat was given. Findings: The lung bases appear clear, except for a small calcified granuloma in the lateral right lung base. The transverse heart size is normal. A valvular prosthesis is partially seen overlying the central aspect of the heart. There appears to be a small hiatal hernia containing minimal contrast within it. The liver and spleen appear of normal size. Numerous calcified granulomas are seen within both the liver and spleen consistent with old healed granulomatous disease. I see no definite focal liver or spleen mass. The gallbladder is of unremarkable size and reveals no definite calcifications within it. No intrahepatic biliary duct distention is seen. The pancreas appears essentially unremarkable. No mass or ductal distention is seen. The adrenal glands are of normal size and configuration. No renal calculi or hydronephrosis is seen. There is a mild to moderate extrarenal pelvis on the right. 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 At the posterior aspect of the left kidney, there is a 6.7 cm in diameter simple appearing cyst measuring +5.6 Hounsfield units. In addition, at the inferior margin of the left kidney anterior medially on axial image #43, I believe there is a small lesion measuring about 1.3 cm in diameter and +6.5 Hounsfield units. This probably represents a cyst, but should be correlated with a focused ultrasound. The right kidney is remarkable for a 2.8 cm in diameter oval lesion at the posterior margin of the upper pole measuring +16.9 Hounsfield units. This could possibly represent a mildly complex cyst. However, I would recommend correlation with a renal ultrasound to exclude a solid renal lesion. Extensive atherosclerotic vascular calcification is seen within the mesenteric arteries, left renal artery, and abdominal aorta. No abdominal aortic aneurysm or abnormal retroperitoneal lymphadenopathy is seen. I see no free intraperitoneal air. On axial image #55, there is a suggestion of a very small fat-containing right far lateral ventral hernia at approximately the level of the right iliac crest. No bowel containing ventral hernia is seen. The opacified bowel loops appear unremarkable revealing no evidence of obstruction or abnormal bowel wall thickening. Some scattered stool is seen within the colon. Minimal diverticulosis is seen within the descending colon and proximal sigmoid colon. There is no evidence of acute diverticulitis. The appendix appears unremarkable within the right lower quadrant. Scattered stool is also seen within the rectosigmoid colon. There is no abnormal pelvic lymphadenopathy or free intraperitoneal fluid. The urinary bladder is moderately distended. On the sagittal images, this measures about 13.3 cm x 8.1 cm in greatest cross-section. The uterus is anteflexed and appears unremarkable. Surgical material is seen within the right inguinal region consistent with prior right inguinal hernia repair. No recurrent hernia or other significant complication is seen at this site. Vascular calcification is seen within both common femoral arteries. I again see moderate to marked osteoarthritis of the right hip. There is moderate to marked degenerative disc disease at L5-S1. Bone demineralization and scattered degenerative joint disease throughout the visualized thoracolumbar spine are seen. No fracture or aggressive bone lesion is seen. Impression: 1. I see no findings of bowel obstruction, free air/free fluid, or recurrent right inguinal hernia at the site of the mesh repair. There is also no evidence of appendicitis or other acute process seen within the right lower quadrant. 2. The urinary bladder is moderately distended. 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 Further evaluation with a bilateral renal ultrasound is recommended to exclude a solid renal mass, particularly at the posterior aspect of the upper pole of the right kidney and the anterior medial margin of the lower pole of the left kidney. 3. Small hiatal hernia, evidence of old healed granulomatous disease within the liver and spleen, marked atherosclerotic vascular calcification, moderate to marked osteoarthritis the right hip, and moderate to marked degenerative disc disease at L5-S1 are seen. 4. There is a suggestion of a tiny right far lateral fatty ventral hernia on axial image #55. This is at approximately the lateral margin of the right superior iliac crest. No bowel containing ventral hernia is seen.
[2021-07-03] MEDS: SYNTHROID 100 MCG PO SCH (09:20)
[2021-07-03] MEDS: NORVASC 5 MG PO SCH (09:21)
[2021-07-03] MEDS: Calcium 500MG W/Vit D Tablet PO SCH ×3 (09:21→21:50)
[2021-07-03] MEDS: Singulair 10 MG PO SCH (09:21)
[2021-07-03] MEDS: PLAVIX 75 MG Tablet PO SCH (09:21)
[2021-07-03] MEDS: Cozaar 50 MG PO SCH (09:22)
[2021-07-03] MEDS: SYNTHROID 25 MCG PO SCH (09:22)
[2021-07-03] MEDS: Vitamin B-12 500 MCG PO SCH (09:22)
[2021-07-03] MEDS: CLARITIN 10 MG PO SCH (09:23)
[2021-07-03] MEDS: Aldactone 25 MG PO SCH (09:23)
[2021-07-03] MEDS: Lantus Insulin SQ SCH (09:24)
[2021-07-03] MEDS ORDERED: NON-FORMULARY ITEM (Spironolactone [Aldactone] 50 MG Tablet) PO SCH (10:00)
[2021-07-03] MEDS ORDERED: NON-FORMULARY ITEM (Losartan Potassium [Cozaar] 25 MG Tablet) PO SCH (10:00)
[2021-07-03] MEDS ORDERED: NON-FORMULARY ITEM (Cyanocobalamin (Vitamin B-12) [B-12] 1,000 MCG Tablet) PO SCH (10:00)
[2021-07-03] MEDS ORDERED: NON-FORMULARY ITEM (Amlodipine Besylate [Norvasc] 10 MG Tablet) PO SCH (10:00)
[2021-07-03] MEDS ORDERED: LEVOTHYROXINE SODIUM 300 MCG PO SCH (10:00)
[2021-07-03] MEDS ORDERED: NON-FORMULARY ITEM (Calcium Carbonate [Calcium] 600 MG Tablet) PO SCH (10:00)
[2021-07-03] MEDS ORDERED: NON-FORMULARY ITEM (Cetirizine Hcl [Zyrtec] 10 MG Tablet) PO SCH (10:00)
--- NOTE | 2021-07-03 12:22 | XRAY ---
Exam: Renal ultrasound from 07/03/2021. Comparison: CT of the abdomen and pelvis without IV contrast from 07/02/2021. Indication: Renal masses seen in both kidneys on recent CT scan. Findings: The right kidney measures 11.4 cm x 3.4 cm x 4.9 cm. It is remarkable for a 2.2 cm x 2.2 cm x 2.0 cm cyst at the posterior aspect of the upper pole of the right kidney. No other right-sided renal mass or hydronephrosis is seen. The left kidney measures 13.2 cm x 5.1 cm x 5.1 cm. 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 No hydronephrosis is seen. At the posterior aspect of the left kidney, there is a 5.8 cm x 6.0 cm x 6.0 cm simple appearing cyst. In addition, at the inferior margin of the left kidney, there is a smaller cyst measuring 1.8 cm x 1.2 cm x 1.5 cm. No other left-sided renal mass is seen. The urinary bladder measures 8.8 cm in width, 4.6 cm in length, and 6.95 cm in AP dimension resulting in a urinary bladder volume of approximately 148 ML's. No intraluminal bladder mass or abnormal urinary bladder wall thickening is seen. No post void urinary bladder images were obtained. Impression: 1. There is one cyst within the right kidney and 2 cysts within the left kidney. See above. No definite solid renal mass or hydronephrosis is seen. 2. 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 This is better seen on the recent CT scan.
--- NOTE | 2021-07-03 12:27 | XRAY ---
Exam: Limited abdominal ultrasound from 07/03/2021. Comparison: CT of the abdomen and pelvis without IV contrast from 07/02/2021. Indication: Abdominal pain. Findings: Several transverse images of the pancreas appear essentially unremarkable. No pancreatic mass or abnormal pancreatic duct distention is seen. The liver appears of unremarkable size and is remarkable for innumerable small calcified granulomas. No definite hepatic mass or intrahepatic biliary duct distention is seen. Normal color blood flow within the main portal vein toward the liver is seen. The gallbladder is distended and reveals no intraluminal gallstones or significant biliary sludge. The gallbladder wall measures 0.1 cm in diameter. No pericholecystic edema or fluid is seen. The proximal common bile duct measures 0.6 cm in diameter which is unremarkable for the patient's stated age of 76 years. No free fluid is seen within the right upper quadrant. Impression: 1. Innumerable small calcified granulomas are seen within the liver consistent with old healed granulomatous disease. 2. Otherwise, the right upper quadrant abdominal ultrasound appears essentially unremarkable.
[2021-07-03] MEDS: HUMALOG SQ PRN ×2 (17:54→21:51)
[2021-07-03] MEDS ORDERED: Lantus Insulin SQ SCH (22:00)
[2021-07-03] MEDS ORDERED: HUMULIN R SQ ONE (23:00)
[2021-07-04 06:34] LABS: Absolute Neutrophil Ct (ANC) 5.37 (1.4-6.9); BASOPHIL % 0.2 % (0.0-0.4); Basophil (Absolute #) 0.02 (0-0.4); Eosinophil % 2.8 % (0.00-5.0); Eosinophil (Absolute #) 0.23 (0-0.5); Hemoglobin 11.8 gm/dl (12.0-16.0); Lymphocyte (Absolute #) 1.46 (1.0-4.6); Lymphocytes % 17.7 % (24.0-44.0); Mean Cell Volume 89.6 fl (78-100); Mean Corpuscular Hemoglobin 29.4 pg (26-32); Mean Corpuscular Hgb Concent. 32.8 g/dl (32-36); Mean Platelet Volume 12.3 fl (7.5-11.0); Monocyte (Absolute #) 1.19 (0.0-1.3); Monocytes % 14.4 % (0.0-12.0); Neutrophil % 64.9 % (36.0-66.0); Platelet Count 327 K/mm3 (150-450); Red Blood Count 4.02 M/mm3 (4.1-5.4); Red Cell Distribution Width 11.7 % (11.5-14.0); White Blood Count 8.3 K/mm3 (4.0-10.5)
[2021-07-04 06:51] LABS: ALBUMIN 3.6 g/dL (3.5-5.0); ANION GAP 15.6 MEQ/L (5-15); BILIRUBIN,TOTAL 0.5 mg/dL (0.2-1.3); Calcium 8.3 mg/dL (8.4-10.2); Creatinine 1 1.37 mg/dL (0.52-1.04); EST GLOMERULAR FILTRATION RATE 39.8 ML/MIN; Potassium 3.9 mmol/L (3.5-5.1); Total Protein 6.5 g/dL (6.3-8.2)
[2021-07-04] MEDS: MAG-OX 400 PO SCH (09:08)
[2021-07-04] MEDS: PLAVIX 75 MG Tablet PO SCH (09:09)
[2021-07-04] MEDS: Aldactone 25 MG PO SCH (09:09)
[2021-07-04] MEDS: Pepcid 20 MG PO SCH (09:09)
[2021-07-04] MEDS: NORVASC 5 MG PO SCH (09:09)
[2021-07-04] MEDS: Calcium 500MG W/Vit D Tablet PO SCH (09:09)
[2021-07-04] MEDS: Cozaar 50 MG PO SCH (09:09)
[2021-07-04] MEDS: SYNTHROID 25 MCG PO SCH (09:09)
[2021-07-04] MEDS: CLARITIN 10 MG PO SCH (09:09)
[2021-07-04] MEDS: Vitamin B-12 500 MCG PO SCH (09:09)
[2021-07-04] MEDS: BUSPAR 5 MG PO SCH (09:09)
[2021-07-04] MEDS: NEURONTIN 300 MG PO SCH (09:11)
[2021-07-04] MEDS: Singulair 10 MG PO SCH (09:11)
[2021-07-04] MEDS: SYNTHROID 100 MCG PO SCH (09:11)
[2021-07-04] MEDS: Lomotil PO SCH ×2 (09:12→13:03)
[2021-07-04] MEDS: Lantus Insulin SQ SCH (09:16)
--- NOTE | 2021-07-04 10:44 | PCM.NOTE ---
Date and Time: 07/04/21 1043 Subjective Assessment: doing better - Review of Systems Constitutional: No Fever, No Chills Eyes: No Symptoms Ears, Nose, & Throat: No Symptoms Respiratory: No Cough, No Short Of Breath Cardiac: No Chest Pain, No Edema, No Syncope Abdominal/Gastrointestinal: No Abdominal Pain, No Nausea, No Vomiting, No Diarrhea Genitourinary Symptoms: No Dysuria Musculoskeletal: No Back Pain, No Neck Pain Skin: No Rash Neurological: No Dizziness, No Focal Weakness, No Sensory Changes Psychological: No Symptoms Endocrine: No Symptoms Hematologic/Lymphatic: No Symptoms Immunological/Allergic: No Symptoms Objective Exam General Appearance: no apparent distress, alert Neurologic Exam: alert, oriented x 3, cooperative, normal mood/affect, nml cerebellar function, sensation nml, No motor deficits Skin Exam: normal color, warm, dry Eye Exam: PERRL, EOMI, eyes nml inspection Ears, Nose, Throat Exam: normal ENT inspection, pharynx normal, moist mucous membranes Neck Exam: normal inspection, non-tender, supple, full range of motion Respiratory Exam: normal breath sounds, lungs clear, No respiratory distress Cardiovascular Exam: regular rate/rhythm, normal heart sounds Gastrointestinal/Abdomen Exam: soft, No tenderness, No mass Extremity Exam: normal inspection, normal range of motion Back Exam: normal inspection, normal range of motion, No CVA tenderness, No vertebral tenderness Pelvic Exam: deferred Rectal Exam: deferred OBJECTIVE DATA Vital Signs: Vital Signs - 24 hr Temp Pulse Resp BP Pulse Ox 07/04/21 08:00 97.7 F 75 16 123/68 99 07/04/21 07:13 99 07/04/21 04:00 98.1 F 81 20 100/55 98 07/04/21 00:16 98.0 F 86 20 130/71 99 07/03/21 19:43 96 07/03/21 19:34 97.7 F 82 18 147/66 97 07/03/21 16:00 97.7 F 79 13 131/72 96 07/03/21 12:00 97.8 F 79 24 161/93 98 Pain Assessment - Last Documented Pain Intensity 0 Intake and Output: Intake & Output 07/01/21 07/02/21 07/03/21 07/04/21 11:59 11:59 11:59 11:59 Intake Total 172 2670 Output Total 1250 1250 Balance -617 1420 Weight 75.7 kg Lab Results: Lab Results-Last 24 Hours 07/03/21 07/03/21 07/03/21 Range/Units 11:46 16:36 17:49 WBC (4.0-10.5) K/mm3 RBC (4.1-5.4) M/mm3 Hgb (12.0-16.0) gm/dl Hct (35-47) % MCV (78-100) fl MCH (26-32) pg MCHC (32-36) g/dl RDW (11.5-14.0) % Plt Count (150-450) K/mm3 MPV (7.5-11.0) fl Gran % (36.0-66.0) % Eos # (Auto) (0-0.5) Absolute Lymphs (auto) (1.0-4.6) Absolute Monos (auto) (0.0-1.3) Lymphocytes % (24.0-44.0) % Monocytes % (0.0-12.0) % Eosinophils % (0.00-5.0) % Basophils % (0.0-0.4) % Absolute Granulocytes (1.4-6.9) Basophils # (0-0.4) Sodium (137-145) mmol/L Potassium (3.5-5.1) mmol/L Chloride (98-107) mmol/L Carbon Dioxide (22-30) mmol/L Anion Gap (5-15) MEQ/L BUN (7-17) mg/dL Creatinine (0.52-1.04) mg/dL Estimated GFR ML/MIN Glucose (74-106) mg/dL POC Glucometer 298 H 496 H (74 to 106) mg/dL Hemoglobin A1c 8.10 H (4.5-6.0) % Calcium (8.4-10.2) mg/dL Total Bilirubin (0.2-1.3) mg/dL AST (14-36) U/L ALT (0-35) U/L Alkaline Phosphatase (38-126) U/L Serum Total Protein (6.3-8.2) g/dL Albumin (3.5-5.0) g/dL 07/03/21 07/03/21 07/03/21 Range/Units 21:21 21:37 22:12 WBC (4.0-10.5) K/mm3 RBC (4.1-5.4) M/mm3 Hgb (12.0-16.0) gm/dl Hct (35-47) % MCV (78-100) fl MCH (26-32) pg MCHC (32-36) g/dl RDW (11.5-14.0) % Plt Count (150-450) K/mm3 MPV (7.5-11.0) fl Gran % (36.0-66.0) % Eos # (Auto) (0-0.5) Absolute Lymphs (auto) (1.0-4.6) Absolute Monos (auto) (0.0-1.3) Lymphocytes % (24.0-44.0) % Monocytes % (0.0-12.0) % Eosinophils % (0.00-5.0) % Basophils % (0.0-0.4) % Absolute Granulocytes (1.4-6.9) Basophils # (0-0.4) Sodium (137-145) mmol/L Potassium (3.5-5.1) mmol/L Chloride (98-107) mmol/L Carbon Dioxide (22-30) mmol/L Anion Gap (5-15) MEQ/L BUN (7-17) mg/dL Creatinine (0.52-1.04) mg/dL Estimated GFR ML/MIN Glucose 583 H* (74-106) mg/dL POC Glucometer 529 H* 533 H* (74 to 106) mg/dL Hemoglobin A1c (4.5-6.0) % Calcium (8.4-10.2) mg/dL Total Bilirubin (0.2-1.3) mg/dL AST (14-36) U/L ALT (0-35) U/L Alkaline Phosphatase (38-126) U/L Serum Total Protein (6.3-8.2) g/dL Albumin (3.5-5.0) g/dL 07/03/21 07/04/21 07/04/21 Range/Units 23:39 06:00 06:00 WBC 8.3 (4.0-10.5) K/mm3 RBC 4.02 L (4.1-5.4) M/mm3 Hgb 11.8 L (12.0-16.0) gm/dl Hct 36.0 (35-47) % MCV 89.6 (78-100) fl MCH 29.4 (26-32) pg MCHC 32.8 (32-36) g/dl RDW 11.7 (11.5-14.0) % Plt Count 327 (150-450) K/mm3 MPV 12.3 H (7.5-11.0) fl Gran % 64.9 (36.0-66.0) % Eos # (Auto) 0.23 (0-0.5) Absolute Lymphs (auto) 1.46 (1.0-4.6) Absolute Monos (auto) 1.19 (0.0-1.3) Lymphocytes % 17.7 L (24.0-44.0) % Monocytes % 14.4 H (0.0-12.0) % Eosinophils % 2.8 (0.00-5.0) % Basophils % 0.2 (0.0-0.4) % Absolute Granulocytes 5.37 (1.4-6.9) Basophils # 0.02 (0-0.4) Sodium 134 L (137-145) mmol/L Potassium 3.9 (3.5-5.1) mmol/L Chloride 98 (98-107) mmol/L Carbon Dioxide 23 (22-30) mmol/L Anion Gap 15.6 H (5-15) MEQ/L BUN 35 H (7-17) mg/dL Creatinine 1.37 H (0.52-1.04) mg/dL Estimated GFR 39.8 ML/MIN Glucose 70 L (74-106) mg/dL POC Glucometer 283 H (74 to 106) mg/dL Hemoglobin A1c (4.5-6.0) % Calcium 8.3 L (8.4-10.2) mg/dL Total Bilirubin 0.50 (0.2-1.3) mg/dL AST 24 (14-36) U/L ALT 17 (0-35) U/L Alkaline Phosphatase 80 (38-126) U/L Serum Total Protein 6.5 (6.3-8.2) g/dL Albumin 3.6 (3.5-5.0) g/dL 07/04/21 Range/Units 07:09 WBC (4.0-10.5) K/mm3 RBC (4.1-5.4) M/mm3 Hgb (12.0-16.0) gm/dl Hct (35-47) % MCV (78-100) fl MCH (26-32) pg MCHC (32-36) g/dl RDW (11.5-14.0) % Plt Count (150-450) K/mm3 MPV (7.5-11.0) fl Gran % (36.0-66.0) % Eos # (Auto) (0-0.5) Absolute Lymphs (auto) (1.0-4.6) Absolute Monos (auto) (0.0-1.3) Lymphocytes % (24.0-44.0) % Monocytes % (0.0-12.0) % Eosinophils % (0.00-5.0) % Basophils % (0.0-0.4) % Absolute Granulocytes (1.4-6.9) Basophils # (0-0.4) Sodium (137-145) mmol/L Potassium (3.5-5.1) mmol/L Chloride (98-107) mmol/L Carbon Dioxide (22-30) mmol/L Anion Gap (5-15) MEQ/L BUN (7-17) mg/dL Creatinine (0.52-1.04) mg/dL Estimated GFR ML/MIN Glucose (74-106) mg/dL POC Glucometer 114 H (74 to 106) mg/dL Hemoglobin A1c (4.5-6.0) % Calcium (8.4-10.2) mg/dL Total Bilirubin (0.2-1.3) mg/dL AST (14-36) U/L ALT (0-35) U/L Alkaline Phosphatase (38-126) U/L Serum Total Protein (6.3-8.2) g/dL Albumin (3.5-5.0) g/dL Radiology Exams: Radiology Procedures Category Date Time Status ABDOMEN AND PELVIS W/0 CONTRAS [CT] Urgent Exams 07/02/21 16:30 Completed ABDOMINAL-LIMITED [US] Urgent Exams 07/03/21 11:06 Completed KIDNEY [US] Routine Exams 07/03/21 11:06 Completed KUB Routine Exams 07/02/21 16:30 Completed Multi-Disciplinary Progress Notes: Multi-Disciplinary Progress Notes 07/03/21 11:15 (created 07/03/21 16:42) Case Management Note by Angelita Ball SON CALLED AND S/W PRIMARY RN ABOUT CONCERNS WITH MOLD IN THE HIS MOTHER'S HOUSE. I S/W PATIENT- SHE STATES SHE NEEDS TO GET HER ROOF LOOKED AT BUT REPORTS SHE FEELS SAFE AT HOME. SHE DENIED THE NEED FOR A REHAB STAY. SHE PLANS TO RETURN HOME TO HER PRIOR LEVEL OF FUNCTIONING. PATIENT COMPLETELY A&O, ANSWERING ALL QUESTIONS APPROPRIATELY Initialized on 07/03/21 16:42 - END OF NOTE Assessment/Plan (1) Abdominal pain Current Visit: Yes Status: Acute Qualifiers: Abdominal location: generalized Qualified Code(s): R10.84 - Generalized abd ominal pain Code(s): R10.9 - UNSPECIFIED ABDOMINAL PAIN
[2021-07-04] MEDS: HUMALOG SQ PRN (12:00)
[2021-07-04 12:04] VITALS: BP 143/89; PULSE 94; O2SAT 95
--- NOTE | 2021-07-23 12:48 | PCM.HP.ADD ---
Addendum to History & Physical - History & Physical Addendum Addendum to History & Physical: This certifies that the History & Physical in the electronic chart reflects the current health status of the patient. If there are changes in the H&P these changes/exceptions are listed as follows. the H&P was done in office on 07/04/21.
== END 2021-07-04 17:36 | disposition home or self-care (01) ==
LOC: MED SURG 15:57
PROVIDERS: ADMIT Family Medicine; ATTEND Family Medicine
DX: R10.9 Unspecified abdominal pain (principal); N28.9 Disorder of kidney and ureter, unspecified; I49.9 Cardiac arrhythmia, unspecified; Z20.828 Contact with and (suspected) exposure to other viral communicable diseases
CPT/HCPCS: 0241U; 36415; 74018; 74176; 76705; 76770; 80053; 81001; 82150; 82947; 83036; 83690; 85025; 87086; 93005; 93268; 94760; G0378; J1815; J1817; A9270-GY

== ENCOUNTER 2021-11-17 12:41 | Emergency (ER) | payer MEDICARE ==
--- NOTE | 2021-11-17 12:45 | ERPHSYRPT ---
- History of Present Illness Time Seen by Provider: 11/17/21 12:45 Source: patient, EMS Exam Limitations: no limitations Physician History: This is a 76-year-old white female patient of Dr. Bob Lowe who arrives via EMS without an IV line in place. Meals on Wheels presented to the patient's home and the patient was unresponsive. EMS was contacted and attempted an IV line but was unsuccessful. Blood sugar on arrival of EMS was 39. They gave oral glucose followed by juice to this unresponsive patient. Patient's blood sugar then increased to 70 and the patient became conversant and was more awake and alert. Upon arrival to the emergency department she was smiling interacting denies chest pain denies abdominal pain denies shortness of breath. She denies headache. She denies abdominal pain. This patient has a history of TIAs, hypothyroidism, hypertension, diabetes, peripheral neuropathy and elevated cholesterol. Timing/Duration: today Severity: moderate Associated Symptoms: denies symptoms Allergies/Adverse Reactions: albuterol Allergy (Intermediate, Verified 11/17/21 12:45) Swelling of Tongue and Lips propranolol [From Inderal LA] Allergy (Intermediate, Verified 11/17/21 12:45) red face and ears clonazepam [From Klonopin] Allergy (Verified 11/17/21 12:45) Tightness of Throat tongue swollen metoclopramide [From Reglan] Allergy (Verified 11/17/21 12:45) propranolol HCl [From Inderal LA] Allergy (Verified 11/17/21 12:45) Swelling of Tongue and Lips red face and ears Sulfa (Sulfonamide Antibiotics) Allergy (Verified 11/17/21 12:45) Swelling of Tongue and Lips throat swell,ears red terfenadine Allergy (Verified 11/17/21 12:45) venom-honey bee [bee venom (honey bee)] Allergy (Verified 11/17/21 12:45) Hives large hives zanamivir [From Relenza Diskhaler] Allergy (Verified 11/17/21 12:45) Swelling of Tongue and Lips throat tightness cilostazol [From Pletal] Adverse Reaction (Severe, Verified 11/17/21 12:45) Swelling of Tongue and Lips ticagrelor [From Brilinta] Adverse Reaction (Severe, Verified 11/17/21 12:45) Swelling of Tongue and Lips Home Medications: Spironolactone [Aldactone] 25 mg PO DAILY 11/13/13 [History] Diphenoxylate HCl/Atropine [Lomotil] 1 tab PO QID 09/14/16 [History] Clopidogrel Bisulfate [Clopidogrel] 75 mg PO DAILY 01/20/18 [History] Montelukast Sodium 10 mg [Singulair 10 MG] 10 mg PO DAILY 01/20/18 [History] Insulin Aspart [NovoLOG Insulin] 1 units SQ UD 12/28/18 [History] raNITIdine HCl [Zantac] 150 mg PO BID 12/28/18 [History] Amlodipine Besylate [Norvasc] 10 mg PO DAILY 12/02/20 [History] Buspirone HCl 5 mg [Buspar 5 mg] 5 mg PO BID 12/02/20 [History] Calcium Carbonate [Calcium] 600 mg PO TID 12/02/20 [History] Cetirizine HCl [Zyrtec] 10 mg PO DAILY 12/02/20 [History] Cyanocobalamin (Vitamin B-12) [B-12] 1,000 mcg PO DAILY 12/02/20 [History] Famotidine 20 mg [Pepcid 20 MG] 20 mg PO BID 12/02/20 [History] Gabapentin 300 mg [Neurontin 300 mg] 300 mg PO TID 12/02/20 [History] Iron,Carb/Vit C/Vit B12/Folic [Iron 100 Plus Tablet] 65 mg PO DAILY 12/02/20 [History] Levothyroxine Sodium [Unithroid] 300 mcg PO DAILY 12/02/20 [History] Losartan Potassium [Cozaar] 25 mg PO DAILY 12/02/20 [History] Magnesium Oxide 400 mg [Mag-Ox 400] 400 mg PO TID 12/02/20 [History] Pravastatin Sodium 20 mg PO DAILY 12/02/20 [History] Suvorexant [Belsomra] 4 mg PO HS 12/02/20 [History] Levothyroxine Sodium 25 mcg PO DAILY 02/15/21 [History] Insulin Glargine [Lantus Insulin] 1 unit SQ UD 07/02/21 [History] Hx Tetanus, Diphtheria Vaccination/Date Given: Yes (2009) Hx Influenza Vaccination/Date Given: Yes Hx Pneumococcal Vaccination/Date Given: Yes Travel Risk - International Travel Have you traveled outside of the country in past 3 weeks: No - Coronavirus Screening Are you exhibiting any of the following symptoms?: No Close contact with a COVID-19 positive Pt in past 14-21 Days: No - Vaccine Status Have you recieved a Covid-19 vaccination: Yes 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 - Vaccination Dates Date of 2cond Vaccination (if applicable): 09/2020 Comment: boost 05/27/21 - Review of Systems Constitutional: No Symptoms Eyes: No Symptoms Ears, Nose, & Throat: No Symptoms Respiratory: No Symptoms Cardiac: No Symptoms Abdominal/Gastrointestinal: No Symptoms Genitourinary Symptoms: No Symptoms Musculoskeletal: No Symptoms Skin: No Symptoms Neurological: No Symptoms Psychological: No Symptoms Endocrine: No Symptoms Hematologic/Lymphatic: No Symptoms Immunological/Allergic: No Symptoms All Other Systems: Reviewed and Negative - Past Medical History Pertinent Past Medical History: Yes Neurological History: TIA, Peripheral Neuropathy ENT History: Other Cardiac History: Hypertension Respiratory History: COPD Endocrine Medical History: Diabetes Type I, Hypothyroidism Musculoskeletal History: No Pertinent History GI Medical History: Other, GERD History: No Pertinent History Psycho-Social History: Anxiety Female Reproductive Disorders: Breast Cancer Other Medical History: right eye retinal scratch November 2020 - Past Surgical History Past Surgical History: Yes Neuro Surgical History: No Pertinent History Cardiac: Other Respiratory: No Pertinent History Gastrointestinal: Hernia Repair Genitourinary: No Pertinent History Musculoskeletal: No Pertinent History Female Surgical History: Mastectomy, Lumpectomy Other Surgical History: left mastectomy 1993, right lumpectomy, right thyroid removed, left thyroid removed with goiter, pubic mass, left knee scope, valve replacement - Social History Smoking Status: Never smoker Exposure to second hand smoke: No Drug Use: none Patient Lives Alone: Yes - Nursing Vital Signs Nursing Vital Signs: Initial Vital Signs Temperature 97.9 F 11/17/21 12:46 Pulse Rate 108 H 11/17/21 12:46 Respiratory Rate 20 11/17/21 12:46 Blood Pressure 155/72 11/17/21 12:46 O2 Sat by Pulse Oximetry 98 11/17/21 12:46 Pain Scale Pain Intensity 0 - Physical Exam General Appearance: no apparent distress, alert, obese Eye Exam: PERRL/EOMI, eyes nml inspection Ears, Nose, Throat Exam: normal ENT inspection, moist mucous membranes Neck Exam: normal inspection, non-tender, supple, full range of motion Respiratory Exam: normal breath sounds, lungs clear, airway intact, No chest tenderness, No respiratory distress Cardiovascular Exam: regular rate/rhythm, normal heart sounds, normal peripheral pulses Gastrointestinal/Abdomen Exam: soft, normal bowel sounds, No tenderness Pelvic Exam: not done Rectal Exam: not done Back Exam: normal inspection, normal range of motion, No CVA tenderness, No ping tebral tenderness Extremity Exam: normal inspection, normal range of motion, pelvis stable Neurologic Exam: alert, oriented x 3, cooperative, respite worker II-XII nml as tested, normal mood/affect, nml cerebellar function, nml station & gait, sensation nml Skin Exam: normal color, warm, dry Lymphatic Exam: No adenopathy SpO2 Interpretation: normal O2 Delivery: Room Air Ordered Tests: Active Orders 24 hr Category Date Time Status Crew Person STAT Care 11/17/21 12:45 Active EKG-ER Only STAT Care 11/17/21 12:45 Active IV Insertion STAT Care 11/17/21 12:45 Active POCT Glucose Check STAT Care 11/17/21 12:45 Active HEAD WITHOUT CONTRAST [CT] Stat Exams 11/17/21 13:49 Completed CBC W DIFF Stat Lab 11/17/21 12:57 Completed CMP Stat Lab 11/17/21 12:57 Completed POCT GLUCOSE Stat Lab 11/17/21 15:01 Completed T4 (Thyroxine) Stat Lab 11/17/21 Completed TSH [TSH, 3RD Generation] Stat Lab 11/17/21 13:44 Completed Medication Summary Generic Name Dose Route Start Last Admin Trade Name Freq PRN Reason Stop Dose Admin Dextrose/Lactated Ringer's 1,000 mls @ 100 mls/hr 11/17/21 13:30 11/17/21 13:12 Dextrose 5%-Lr Iv Solution 1000 Ml IV 12/17/21 13:29 100 mls/hr .Q10H RAMON Administration Discontinued Medications Generic Name Dose Route Start Last Admin Trade Name Freq PRN Reason Stop Dose Admin Dextrose Confirm 11/17/21 13:05 Dextrose 50%-Water 50 Ml Abboject Administered 11/17/21 13:06 Dose 50 ml IV .STK-MED ONE Dextrose 50 ml 11/17/21 13:07 11/17/21 13:13 Dextrose 50%-Water 50 Ml Abboject IV 11/17/21 13:08 50 ml STAT ONE Administration Dextrose/Lactated Ringer's Confirm 11/17/21 13:04 Dextrose 5%-Lr Iv Solution 1000 Ml Administered 11/17/21 13:05 Dose 1,000 mls @ ud IV .STK-MED ONE Lab/Rad Data: Laboratory Result Diagrams 11/17/21 12:57 11/17/21 12:57 Laboratory Results 11/17/21 11/17/21 11/17/21 Range/Units Unknown 15:01 13:44 WBC (4.0-10.5) K/mm3 RBC (4.1-5.4) M/mm3 Hgb (12.0-16.0) gm/dl Hct (35-47) % MCV (78-100) fl MCH (26-32) pg MCHC (32-36) g/dl RDW (11.5-14.0) % Plt Count (150-450) K/mm3 MPV (7.5-11.0) fl Gran % (36.0-66.0) % Eos # (Auto) (0-0.5) Absolute Lymphs (auto) (1.0-4.6) Absolute Monos (auto) (0.0-1.3) Lymphocytes % (24.0-44.0) % Monocytes % (0.0-12.0) % Eosinophils % (0.00-5.0) % Basophils % (0.0-0.4) % Absolute Granulocytes (1.4-6.9) Basophils # (0-0.4) Sodium (137-145) mmol/L Potassium (3.5-5.1) mmol/L Chloride (98-107) mmol/L Carbon Dioxide (22-30) mmol/L Anion Gap (5-15) MEQ/L BUN (7-17) mg/dL Creatinine (0.52-1.04) mg/dL Estimated GFR ML/MIN Glucose (74-106) mg/dL POC Glucometer 387 H (74 to 106) mg/dL Calcium (8.4-10.2) mg/dL Total Bilirubin (0.2-1.3) mg/dL AST (14-36) U/L ALT (0-35) U/L Alkaline Phosphatase (38-126) U/L Serum Total Protein (6.3-8.2) g/dL Albumin (3.5-5.0) g/dL Thyroxine (T4) 11.8 H (5.53-10.96) ug/dL TSH 3rd Generation 1.320 (0.47-4.68) mIU/L 11/17/21 11/17/21 Range/Units 12:57 12:57 WBC 15.1 H (4.0-10.5) K/mm3 RBC 3.99 L (4.1-5.4) M/mm3 Hgb 11.9 L (12.0-16.0) gm/dl Hct 36.5 (35-47) % MCV 91.5 (78-100) fl MCH 29.8 (26-32) pg MCHC 32.6 (32-36) g/dl RDW 12.9 (11.5-14.0) % Plt Count 405 (150-450) K/mm3 MPV 12.1 H (7.5-11.0) fl Gran % 83.4 H (36.0-66.0) % Eos # (Auto) 0.15 (0-0.5) Absolute Lymphs (auto) 1.21 (1.0-4.6) Absolute Monos (auto) 1.14 (0.0-1.3) Lymphocytes % 8.0 L (24.0-44.0) % Monocytes % 7.5 (0.0-12.0) % Eosinophils % 1.0 (0.00-5.0) % Basophils % 0.1 (0.0-0.4) % Absolute Granulocytes 12.60 H (1.4-6.9) Basophils # 0.01 (0-0.4) Sodium 139 (137-145) mmol/L Potassium 4.1 (3.5-5.1) mmol/L Chloride 100 (98-107) mmol/L Carbon Dioxide 28 (22-30) mmol/L Anion Gap 16.2 H (5-15) MEQ/L BUN 25 H (7-17) mg/dL Creatinine 1.31 H (0.52-1.04) mg/dL Estimated GFR 42.0 ML/MIN Glucose 103 (74-106) mg/dL POC Glucometer (74 to 106) mg/dL Calcium 8.2 L (8.4-10.2) mg/dL Total Bilirubin 0.50 (0.2-1.3) mg/dL AST 28 (14-36) U/L ALT 21 (0-35) U/L Alkaline Phosphatase 86 (38-126) U/L Serum Total Protein 7.7 (6.3-8.2) g/dL Albumin 4.2 (3.5-5.0) g/dL Thyroxine (T4) (5.53-10.96) ug/dL TSH 3rd Generation (0.47-4.68) mIU/L - Progress Progress: improved, re-examined Progress Note: 11/17/21 14:42 CAT scan of the head without contrast shows a new, 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 There are no new acute abnormalities. This was compared to a CT scan performed in 2019. Counseled pt/family regarding: lab results, diagnosis, need for follow-up, rad results - Departure Departure Disposition: Home Clinical Impression: Hypoglycemia Condition: Stable Critical Care Time: No Referrals: DEBI RAMOS [Primary Care Provider] - Follow up/PCP as directed Additional Instructions: Eat your diabetic meal as instructed. Monitor your blood sugar closely. Take your medications as prescribed. Follow-up with your primary care physician for further evaluation and management.
[2021-11-17] MEDS ORDERED: Dextrose 5%-Lr IV Solution 1000 ML 1,000 ML IV ONE (13:04)
[2021-11-17] MEDS ORDERED: D50W 50 ml Abboject IV ONE ×2 (13:05→13:07)
[2021-11-17 13:24] LABS: ALBUMIN 4.2 g/dL (3.5-5.0); ANION GAP 16.2 MEQ/L (5-15); BILIRUBIN,TOTAL 0.5 mg/dL (0.2-1.3); Calcium 8.2 mg/dL (8.4-10.2); Creatinine 1 1.31 mg/dL (0.52-1.04); Potassium 4.1 mmol/L (3.5-5.1); Total Protein 7.7 g/dL (6.3-8.2)
[2021-11-17] MEDS ORDERED: Dextrose 5%-Lr IV Solution 1000 ML 1,000 ML IV SCH (13:30)
[2021-11-17 13:36] LABS: Basophil (Absolute #) 0.01 (0-0.4); Eosinophil (Absolute #) 0.15 (0-0.5); Hematocrit 36.5 % (35-47); Hemoglobin 11.9 gm/dl (12.0-16.0); Lymphocyte (Absolute #) 1.21 (1.0-4.6); Mean Cell Volume 91.5 fl (78-100); Mean Corpuscular Hemoglobin 29.8 pg (26-32); Mean Corpuscular Hgb Concent. 32.6 g/dl (32-36); Mean Platelet Volume 12.1 fl (7.5-11.0); Monocyte (Absolute #) 1.14 (0.0-1.3); Monocytes % 7.5 % (0.0-12.0); Neutrophil % 83.4 % (36.0-66.0); Platelet Count 405 K/mm3 (150-450); Red Blood Count 3.99 M/mm3 (4.1-5.4); Red Cell Distribution Width 12.9 % (11.5-14.0); White Blood Count 15.1 K/mm3 (4.0-10.5)
--- NOTE | 2021-11-17 14:14 | XRAY ---
Indication: Unresponsive. Hypoglycemic. Multiple contiguous axial images obtained through the head without contrast. Comparison: December 28, 2018. Again age-appropriate global atrophy and mild periventricular degenerative micro-ischemia bilaterally. Posterior limb left internal capsule demonstrates new tiny remote lacunar infarct. No acute intracranial hemorrhage, abnormal extra-axial fluid collection, or mass effect. Fourth ventricle is midline without hydrocephalus. Bony calvarium intact. Visualized paranasal sinuses and mastoid air cells are clear. Impression: Atrophy and degenerative micro-ischemia within normal limits for patient's age. New remote lacunar infarct left internal capsule. No acute intracranial abnormalities.
[2021-11-17 15:03] VITALS: BP 147/86; PULSE 95; O2SAT 99
== END 2021-11-17 16:07 | disposition home or self-care (01) ==
LOC: ED 12:41
DX: E10.649 Type 1 diabetes mellitus with hypoglycemia without coma (principal); E10.42 Type 1 diabetes mellitus with diabetic polyneuropathy; I10 Essential (primary) hypertension; J44.9 Chronic obstructive pulmonary disease, unspecified; Z79.4 Long term (current) use of insulin; Z79.899 Other long term (current) drug therapy
CPT/HCPCS: 36000; 36415; 70450; 80053; 82947; 84436; 84443; 85025; 93005; 93041; 96374; 99284

== ENCOUNTER 2022-07-05 08:02 | Observation (INO) | payer MEDICARE ==
[2022-07-05] MEDS ORDERED: Adenocard IV 6 MG/2 ML IV ONE ×2 (08:12→08:22)
[2022-07-05] MEDS ORDERED: Sodium Chloride 0.9% 1000 ML 1,000 ML ONE (08:13)
[2022-07-05] MEDS ORDERED: Cardizem IV 50 MG/10 ML IV ONE ×2 (08:23→08:25)
[2022-07-05] MEDS: CARDIZEM DRIP 100 MG/100 ML D5W 100 ML IV PRN ×3 (08:30→22:11)
[2022-07-05] MEDS ORDERED: LOPRESSOR INJECTION IV ONE (08:43)
--- NOTE | 2022-07-05 08:52 | ERPHSYRPT ---
- History of Present Illness Time Seen by Provider: 07/05/22 08:47 Source: patient Exam Limitations: no limitations Patient Subjective Stated Complaint: Patient states she woke up SOB. Also some c/o chest pain/palpitations. Triage Nursing Assessment: Patient arrived by ambulance SOB; breath labored, using accessory muscles. She is alert and oriented. Patient is pale, skin loose and dry. Physician History: Patient is a 77-year-old female presents to our ED via EMS for evaluation of SVT. Patient states she awoke this morning with shortness of breath chest pain and heart palpitations. EMS advised that they were unable to establish IV access. Patient mentating normally conversant mildly tachypneic otherwise no active chest pain at this time. Symptoms are moderate in intensity. No specific worsening or improving factors. Patient voices no other complaints or concerns at this time. Portions of this note were created with voice recognition technology. There may be grammatical, spelling, punctuation or sound alike errors Timing/Duration: today Severity: moderate Modifying Factors: Improves With: nothing Associated Symptoms: shortness of breath Allergies/Adverse Reactions: albuterol Allergy (Intermediate, Verified 07/05/22 08:13) Swelling of Tongue and Lips propranolol [From Inderal LA] Allergy (Intermediate, Verified 07/05/22 08:13) red face and ears clonazepam [From Klonopin] Allergy (Verified 07/05/22 08:13) Tightness of Throat tongue swollen metoclopramide [From Reglan] Allergy (Verified 07/05/22 08:13) propranolol HCl [From Inderal LA] Allergy (Verified 07/05/22 08:13) Swelling of Tongue and Lips red face and ears Sulfa (Sulfonamide Antibiotics) Allergy (Verified 07/05/22 08:13) Swelling of Tongue and Lips throat swell,ears red terfenadine Allergy (Verified 07/05/22 08:13) venom-honey bee [bee venom (honey bee)] Allergy (Verified 07/05/22 08:13) Hives large hives zanamivir [From Relenza Diskhaler] Allergy (Verified 07/05/22 08:13) Swelling of Tongue and Lips throat tightness cilostazol [From Pletal] Adverse Reaction (Severe, Verified 07/05/22 08:13) Swelling of Tongue and Lips ticagrelor [From Brilinta] Adverse Reaction (Severe, Verified 07/05/22 08:13) Swelling of Tongue and Lips Home Medications: Spironolactone [Aldactone] 25 mg PO DAILY 11/13/13 [History] Diphenoxylate HCl/Atropine [Lomotil] 1 tab PO QID 09/14/16 [History] Clopidogrel Bisulfate [Clopidogrel] 75 mg PO DAILY 01/20/18 [History] Montelukast Sodium 10 mg [Singulair 10 MG] 10 mg PO DAILY 01/20/18 [History] Insulin Aspart [NovoLOG Insulin] 1 units SQ UD 12/28/18 [History] raNITIdine HCl [Zantac] 150 mg PO BID 12/28/18 [History] Amlodipine Besylate [Norvasc] 10 mg PO DAILY 12/02/20 [History] Buspirone HCl 5 mg [Buspar 5 mg] 5 mg PO BID 12/02/20 [History] Calcium Carbonate [Calcium] 600 mg PO TID 12/02/20 [History] Cetirizine HCl [Zyrtec] 10 mg PO DAILY 12/02/20 [History] Cyanocobalamin (Vitamin B-12) [B-12] 1,000 mcg PO DAILY 12/02/20 [History] Famotidine 20 mg [Pepcid 20 MG] 20 mg PO BID 12/02/20 [History] Gabapentin [Neurontin ] 300 mg PO TID 12/02/20 [History] Iron,Carb/Vit C/Vit B12/Folic [Iron 100 Plus Tablet] 65 mg PO DAILY 12/02/20 [History] Levothyroxine Sodium [Unithroid] 300 mcg PO DAILY 12/02/20 [History] Losartan Potassium [Cozaar] 25 mg PO DAILY 12/02/20 [History] Magnesium Oxide 400 mg [Mag-Ox 400] 400 mg PO TID 12/02/20 [History] Pravastatin Sodium 20 mg PO DAILY 12/02/20 [History] Suvorexant [Belsomra] 4 mg PO HS 12/02/20 [History] Levothyroxine Sodium 25 mcg PO DAILY 02/15/21 [History] Insulin Glargine [Lantus Insulin] 1 unit SQ UD 07/02/21 [History] Hx Tetanus, Diphtheria Vaccination/Date Given: Yes Hx Influenza Vaccination/Date Given: Yes Hx Pneumococcal Vaccination/Date Given: Yes Immunizations Up to Date: Yes Travel Risk - International Travel Have you traveled outside of the country in past 3 weeks: No - Coronavirus Screening Are you exhibiting any of the following symptoms?: Yes Symptoms: Cough: New Onset, Shortness of Breath - Vaccine Status Have you recieved a Covid-19 vaccination: Yes Loader Engineer: Moderna - Vaccination Dates Date of 2cond Vaccination (if applicable): 09/2020 Comment: boost 05/27/21 - Review of Systems Constitutional: No Symptoms, No Fever, No Chills Eyes: No Symptoms Ears, Nose, & Throat: No Symptoms Respiratory: No Symptoms, No Cough, No Dyspnea Cardiac: No Symptoms, No Chest Pain, No Edema, No Syncope Abdominal/Gastrointestinal: No Symptoms, No Abdominal Pain, No Nausea, No Vomit ing, No Diarrhea Genitourinary Symptoms: No Symptoms, No Dysuria Musculoskeletal: No Symptoms, No Back Pain, No Neck Pain Skin: No Symptoms, No Rash Neurological: No Symptoms, No Dizziness, No Focal Weakness, No Sensory Changes Psychological: No Symptoms Endocrine: No Symptoms Hematologic/Lymphatic: No Symptoms Immunological/Allergic: No Symptoms All Other Systems: Reviewed and Negative - Past Medical History Pertinent Past Medical History: Yes Neurological History: TIA, Peripheral Neuropathy ENT History: Other Cardiac History: Hypertension Respiratory History: COPD Endocrine Medical History: Diabetes Type I, Hypothyroidism Musculoskeletal History: No Pertinent History GI Medical History: Other, GERD History: No Pertinent History Psycho-Social History: Anxiety Female Reproductive Disorders: Breast Cancer Other Medical History: right eye retinal scratch November 2020 - Past Surgical History Past Surgical History: Yes Neuro Surgical History: No Pertinent History Cardiac: Other Respiratory: No Pertinent History Gastrointestinal: Hernia Repair Genitourinary: No Pertinent History Musculoskeletal: No Pertinent History Female Surgical History: Mastectomy, Lumpectomy Other Surgical History: left mastectomy 1993, right lumpectomy, right thyroid removed, left thyroid removed with goiter, pubic mass, left knee scope, valve replacement - Social History Smoking Status: Never smoker Exposure to second hand smoke: No Drug Use: none Patient Lives Alone: Yes - Nursing Vital Signs Nursing Vital Signs: Initial Vital Signs Temperature 98.6 F 07/05/22 08:25 Pulse Rate 150 H 07/05/22 08:25 Respiratory Rate 22 07/05/22 08:25 Blood Pressure 143/97 07/05/22 08:25 O2 Sat by Pulse Oximetry 93 L 07/05/22 08:25 Pain Scale Pain Intensity 0 - Physical Exam General Appearance: no apparent distress, alert Eye Exam: PERRL/EOMI, eyes nml inspection Ears, Nose, Throat Exam: normal ENT inspection, TMs normal, pharynx normal, moist mucous membranes Neck Exam: normal inspection, non-tender, supple, full range of motion Respiratory Exam: normal breath sounds, lungs clear, airway intact, No respiratory distress Cardiovascular Exam: regular rate/rhythm, normal heart sounds, normal peripheral pulses Gastrointestinal/Abdomen Exam: soft, normal bowel sounds, No tenderness, No mass Back Exam: normal inspection, normal range of motion, No CVA tenderness, No vertebral tenderness Extremity Exam: normal inspection, normal range of motion, pelvis stable Neurologic Exam: alert, oriented x 3, cooperative, normal mood/affect, sensation nml, No motor deficits Skin Exam: normal color, warm, dry, No rash Lymphatic Exam: No adenopathy SpO2 Interpretation: normal SpO2: 93 O2 Delivery: Room Air - Course Nursing assessment & vital signs reviewed: Yes - Radiology Exams Chest X-ray Interpretation: Teleradiologist Report (New central vascular congestion interstitial edema right effusion and cardiomegaly) Ordered Tests: Active Orders 24 hr Category Date Time Status Employee Communications Specialist STAT Care 07/05/22 08:27 Active EKG-ER Only STAT Care 07/05/22 08:26 Active IV Insertion STAT Care 07/05/22 08:26 Active Pulse Oximetry (ED) STAT Care 07/05/22 08:26 Active CHEST 1 VIEW (PORTABLE) Stat Exams 07/05/22 08:26 Completed CHEST 1 VIEW (PORTABLE) Stat Exams 07/05/22 11:37 Completed CBC W DIFF Stat Lab 07/05/22 08:55 Completed CMP Stat Lab 07/05/22 08:55 Completed CULTURE,URINE Stat Lab 07/05/22 11:15 Received NT PRO BNP Stat Lab 07/05/22 08:55 Completed POCT GLUCOSE Stat Lab 07/05/22 20:04 Completed TROPONIN Q4H Lab 07/05/22 08:55 Completed TROPONIN Q4H Lab 07/05/22 12:38 Completed TROPONIN Q4H Lab 07/05/22 16:16 Completed UA W/RFX CULTURE Stat Lab 07/05/22 11:15 Completed BiPap/CPAP ROUTINE RT 07/05/22 12:08 Active Respiratory Therapy Assessment DAILY RT 07/05/22 22:21 Active Medication Summary Generic Name Dose Route Start Last Admin Trade Name Freq PRN Reason Stop Dose Admin Diltiazem HCl 100 mls @ 5 mls/hr 07/05/22 08:26 07/05/22 22:11 Cardizem Drip 100 Mg/100 Ml D5w IV 08/04/22 08:25 15 mg/hr .Q20H PRN 15 mls/hr HEART RATE/ A-FIB Administration Protocol 5 MG/HR Discontinued Medications Generic Name Dose Route Start Last Admin Trade Name Freq PRN Reason Stop Dose Admin Adenosine Confirm 07/05/22 08:12 Adenosine 6 Mg/2 Ml Vial Administered 07/05/22 08:13 Dose 18 mg IV .STK-MED ONE Adenosine Confirm 07/05/22 08:22 Adenosine 6 Mg/2 Ml Vial Administered 07/05/22 08:23 Dose 12 mg IV .STK-MED ONE Albuterol/Ipratropium Confirm 07/05/22 21:37 Ipratropium/Albuterol Sulfate 3 Ml Ampul.Neb Administered 07/05/22 21:38 Dose 3 ml IH .STK-MED ONE Albuterol/Ipratropium 3 ml 07/05/22 21:50 07/05/22 22:20 Ipratropium/Albuterol Sulfate 3 Ml Ampul.Neb IH 07/05/22 21:51 3 ml STAT ONE Administration Calcium Gluconate 1,000 mg 07/05/22 10:35 07/05/22 11:06 Calcium Gluconate 1000 Mg/10 Ml Vial IV 07/05/22 10:36 1,000 mg STAT ONE Administration Calcium Gluconate Confirm 07/05/22 11:05 Calcium Gluconate 1000 Mg/10 Ml Vial Administered 07/05/22 11:06 Dose 1,000 mg IV .STK-MED ONE Diltiazem HCl 15 mg 07/05/22 08:25 07/05/22 08:24 Diltiazem Hcl Iv 5 Mg/Ml Vial IV 07/05/22 08:26 15 mg STAT ONE Administration Diltiazem HCl Confirm 07/05/22 08:23 Diltiazem Hcl Iv 5 Mg/Ml Vial Administered 07/05/22 08:24 Dose 50 mg IV .STK-MED ONE Enoxaparin Sodium 80 mg 07/05/22 11:35 07/05/22 12:27 Enoxaparin Sodium 80 Mg/0.8 Ml Syringe SQ 07/05/22 11:36 80 mg STAT ONE Administration Enoxaparin Sodium Confirm 07/05/22 12:27 Enoxaparin Sodium 80 Mg/0.8 Ml Syringe Administered 07/05/22 12:28 Dose 80 mg SQ .STK-MED ONE Furosemide 40 mg 07/05/22 11:36 07/05/22 11:37 Furosemide 40 Mg/4 Ml Vial IV 07/05/22 11:37 40 mg STAT ONE Administration Furosemide Confirm 07/05/22 11:35 Furosemide 40 Mg/4 Ml Vial Administered 07/05/22 11:36 Dose 40 mg .ROUTE .STK-MED ONE Furosemide 40 mg 07/05/22 21:43 Furosemide 40 Mg/4 Ml Vial IV 07/05/22 21:44 STAT ONE Sodium Chloride Confirm 07/05/22 08:13 Sodium Chloride 0.9% 1000 Ml Administered 07/05/22 08:14 Dose 1,000 mls @ ud .ROUTE .STK-MED ONE Sodium Chloride Confirm 07/05/22 15:39 Sodium Chloride 0.9% 250 Ml Administered 07/05/22 15:40 Dose 250 mls @ ud IV .STK-MED ONE Diltiazem HCl Confirm 07/05/22 22:09 Cardizem Drip 100 Mg/100 Ml D5w Administered 07/05/22 22:10 Dose 100 mls @ ud IV .STK-MED ONE Insulin Glargine 8 unit 07/05/22 21:10 07/05/22 21:40 Insulin Glargine 1 Unit SQ 07/05/22 21:11 8 unit ONCE STA Administration Lorazepam Confirm 07/05/22 21:46 Lorazepam 2 Mg/1 Ml 2 Mg Vial Administered 07/05/22 21:47 Dose 2 mg .ROUTE .STK-MED ONE Metoprolol Tartrate Confirm 07/05/22 08:43 Metoprolol Tartrate 5 Mg/5 Ml Vial Administered 07/05/22 08:44 Dose 5 mg IV .STK-MED ONE Lab/Rad Data: Laboratory Result Diagrams 07/05/22 08:55 07/05/22 08:55 Laboratory Results 07/05/22 07/05/22 07/05/22 Range/Units 20:04 16:16 12:38 WBC (4.0-10.5) x10^3/uL RBC (4.1-5.4) x10^6/uL Hgb (12.0-16.0) g/dL Hct (35-47) % MCV (78-100) fL MCH (26-32) pg MCHC (32-36) g/dL RDW (11.5-14.0) % Plt Count (150-450) x10^3/uL MPV (7.5-11.0) fL Gran % (36.0-66.0) % Immature Gran % (Auto) (0.00-0.4) % Nucleat RBC Rel Count (0.00-0.1) % Eos # (Auto) (0-0.5) x10^3/uL Immature Gran # (Auto) (0.00-0.03) x10^3u/L Absolute Lymphs (auto) (1.0-4.6) x10^3/uL Absolute Monos (auto) (0.0-1.3) x10^3/uL Absolute Nucleated RBC (0.00-0.01) x10^3u/L Lymphocytes % (24.0-44.0) % Monocytes % (0.0-12.0) % Eosinophils % (0.00-5.0) % Basophils % (0.0-0.4) % Absolute Granulocytes (1.4-6.9) x10^3/uL Basophils # (0-0.4) x10^3/uL Sodium (137-145) mmol/L Potassium (3.5-5.1) mmol/L Chloride (98-107) mmol/L Carbon Dioxide (22-30) mmol/L Anion Gap (5-15) MEQ/L BUN (7-17) mg/dL Creatinine (0.52-1.04) mg/dL Estimated GFR ML/MIN Glucose (74-106) mg/dL POC Glucometer 338 H (74 to 106) mg/dL Calcium (8.4-10.2) mg/dL Total Bilirubin (0.2-1.3) mg/dL AST (14-36) U/L ALT (0-35) U/L Alkaline Phosphatase (38-126) U/L Troponin I 0.083 H* 0.078 H* (0.000-0.034) ng/mL NT-Pro-B Natriuret Pep (0-1800) pg/mL Serum Total Protein (6.3-8.2) g/dL Albumin (3.5-5.0) g/dL Urinalys Dipstick Clnc Urine Color (YELLOW) Urine Appearance (CLEAR) Urine pH (5-6) Ur Specific [place] (1.005-1.025) POC Urine Protein Conf (Negative) Urine Ketones (NEGATIVE) Urine Nitrite (NEGATIVE) Urine Bilirubin (NEGATIVE) Urine Urobilinogen (0-1) mg/dL Urine Leukocytes (NEGATIVE) Urine WBC (Auto) (0-5) /HPF Urine RBC (Auto) (0-2) /HPF U Epithel Cells (Auto) (FEW) /HPF Urine Bacteria (Auto) (NEGATIVE) /HPF Urine RBC (0-5) Min/ul Ur Culture Indicated? Urine Glucose (NEGATIVE) mg/dL 07/05/22 07/05/22 07/05/22 Range/Units 11:15 08:55 08:55 WBC (4.0-10.5) x10^3/uL RBC (4.1-5.4) x10^6/uL Hgb (12.0-16.0) g/dL Hct (35-47) % MCV (78-100) fL MCH (26-32) pg MCHC (32-36) g/dL RDW (11.5-14.0) % Plt Count (150-450) x10^3/uL MPV (7.5-11.0) fL Gran % (36.0-66.0) % Immature Gran % (Auto) (0.00-0.4) % Nucleat RBC Rel Count (0.00-0.1) % Eos # (Auto) (0-0.5) x10^3/uL Immature Gran # (Auto) (0.00-0.03) x10^3u/L Absolute Lymphs (auto) (1.0-4.6) x10^3/uL Absolute Monos (auto) (0.0-1.3) x10^3/uL Absolute Nucleated RBC (0.00-0.01) x10^3u/L Lymphocytes % (24.0-44.0) % Monocytes % (0.0-12.0) % Eosinophils % (0.00-5.0) % Basophils % (0.0-0.4) % Absolute Granulocytes (1.4-6.9) x10^3/uL Basophils # (0-0.4) x10^3/uL Sodium 136 L (137-145) mmol/L Potassium 3.6 (3.5-5.1) mmol/L Chloride 104 (98-107) mmol/L Carbon Dioxide 19 L (22-30) mmol/L Anion Gap 16.2 H (5-15) MEQ/L BUN 24 H (7-17) mg/dL Creatinine 1.93 H (0.52-1.04) mg/dL Estimated GFR 26.8 ML/MIN Glucose 238 H (74-106) mg/dL POC Glucometer (74 to 106) mg/dL Calcium 7.2 L (8.4-10.2) mg/dL Total Bilirubin 0.50 (0.2-1.3) mg/dL AST 25 (14-36) U/L ALT 17 (0-35) U/L Alkaline Phosphatase 103 (38-126) U/L Troponin I 0.059 H* (0.000-0.034) ng/mL NT-Pro-B Natriuret Pep 4950 H (0-1800) pg/mL Serum Total Protein 7.8 (6.3-8.2) g/dL Albumin 4.0 (3.5-5.0) g/dL Urinalys Dipstick Clnc MAIN LAB Urine Color YELLOW (YELLOW) Urine Appearance CLEAR (CLEAR) Urine pH 7.0 (5-6) Ur Specific [place] 1.025 (1.005-1.025) POC Urine Protein Conf >=300 A (Negative) Urine Ketones TRACE A (NEGATIVE) Urine Nitrite NEGATIVE (NEGATIVE) Urine Bilirubin NEGATIVE (NEGATIVE) Urine Urobilinogen 0.2 (0-1) mg/dL Urine Leukocytes NEGATIVE (NEGATIVE) Urine WBC (Auto) 0-2 (0-5) /HPF Urine RBC (Auto) 0-2 (0-2) /HPF U Epithel Cells (Auto) NONE (FEW) /HPF Urine Bacteria (Auto) NONE (NEGATIVE) /HPF Urine RBC TRACE-INTACT A (0-5) Min/ul Ur Culture Indicated? YES Urine Glucose 100 A (NEGATIVE) mg/dL 07/05/22 Range/Units 08:55 WBC 15.5 H (4.0-10.5) x10^3/uL RBC 3.58 L (4.1-5.4) x10^6/uL Hgb 10.2 L (12.0-16.0) g/dL Hct 31.0 L (35-47) % MCV 86.6 (78-100) fL MCH 28.5 (26-32) pg MCHC 32.9 (32-36) g/dL RDW 12.4 (11.5-14.0) % Plt Count 431 (150-450) x10^3/uL MPV 12.5 H (7.5-11.0) fL Gran % 86.1 H (36.0-66.0) % Immature Gran % (Auto) 0.5 H (0.00-0.4) % Nucleat RBC Rel Count 0.0 (0.00-0.1) % Eos # (Auto) 0.16 (0-0.5) x10^3/uL Immature Gran # (Auto) 0.07 H (0.00-0.03) x10^3u/L Absolute Lymphs (auto) 0.93 L (1.0-4.6) x10^3/uL Absolute Monos (auto) 0.94 (0.0-1.3) x10^3/uL Absolute Nucleated RBC 0.00 (0.00-0.01) x10^3u/L Lymphocytes % 6.0 L (24.0-44.0) % Monocytes % 6.1 (0.0-12.0) % Eosinophils % 1.0 (0.00-5.0) % Basophils % 0.3 (0.0-0.4) % Absolute Granulocytes 13.33 H (1.4-6.9) x10^3/uL Basophils # 0.05 (0-0.4) x10^3/uL Sodium (137-145) mmol/L Potassium (3.5-5.1) mmol/L Chloride (98-107) mmol/L Carbon Dioxide (22-30) mmol/L Anion Gap (5-15) MEQ/L BUN (7-17) mg/dL Creatinine (0.52-1.04) mg/dL Estimated GFR ML/MIN Glucose (74-106) mg/dL POC Glucometer (74 to 106) mg/dL Calcium (8.4-10.2) mg/dL Total Bilirubin (0.2-1.3) mg/dL AST (14-36) U/L ALT (0-35) U/L Alkaline Phosphatase (38-126) U/L Troponin I (0.000-0.034) ng/mL NT-Pro-B Natriuret Pep (0-1800) pg/mL Serum Total Protein (6.3-8.2) g/dL Albumin (3.5-5.0) g/dL Urinalys Dipstick Clnc Urine Color (YELLOW) Urine Appearance (CLEAR) Urine pH (5-6) Ur Specific [place] (1.005-1.025) POC Urine Protein Conf (Negative) Urine Ketones (NEGATIVE) Urine Nitrite (NEGATIVE) Urine Bilirubin (NEGATIVE) Urine Urobilinogen (0-1) mg/dL Urine Leukocytes (NEGATIVE) Urine WBC (Auto) (0-5) /HPF Urine RBC (Auto) (0-2) /HPF U Epithel Cells (Auto) (FEW) /HPF Urine Bacteria (Auto) (NEGATIVE) /HPF Urine RBC (0-5) Min/ul Ur Culture Indicated? Urine Glucose (NEGATIVE) mg/dL - Progress Progress: improved Progress Note: Case discussed with Dr. Rojas who advised transfer. Spoke to Dr. Boykin patient's room service attendant who agreed with management but also advised a 5 mg dose of metoprolol IV. However patient is allergic to beta- [place]. Patient states she developed anaphylactic reactions to beta-[place]. She states her throat and mouth started to swell we will hold off on beta- [place] now. We will continue to monitor patient on Cardizem drip Dr. Boykin advises transfer to [facility] as patient will likely require services of a coconut boiler. 07/05/22 08:44 Patient emergency department for prolonged period of time. We are unable to transfer patient. Case discussed Dr. Diego who accepts admission to observation. Plan of care discussed with patient. She agrees to admission at [facility] for further evaluation and treatment. Portions of this note were created with voice recognition technology. There may be grammatical, spelling, punctuation or sound alike errors 07/05/22 23:[address] Other (Dr. Boykin room service attendant advises transfer to [facility]) Counseled pt/family regarding: lab results, diagnosis, rad results - Departure Departure Disposition: Observation Clinical Impression: SVT (supraventricular tachycardia), Leukocytosis, SUSAN (acute respiratory in fection), Hyperglycemia, Hypocalcemia, Elevated troponin, Elevated brain natriuretic peptide (BNP) level, CHF (congestive heart failure), Pulmonary edema Condition: Stable Critical Care Time: No Referrals: DEIB RAMOS [Primary Care Provider] - Follow up/PCP as directed Instructions: Heart Failure
--- NOTE | 2022-07-05 09:08 | XRAY ---
Indication: Short of breath. Comparison: September 10, 2021 Portable chest demonstrates new central vascular congestion, interstitial edema, and tiny right effusion. Heart borderline enlarged concerning for cardiac decompensation/CHF. Superimposed pneumonia not completely excluded. Bony thorax intact again with osteopenia and degenerative changes.
[2022-07-05 09:15] LABS: Absolute Neutrophil Ct (ANC) 13.33 x10^3/uL (1.4-6.9); Basophil (Absolute #) 0.05 x10^3/uL (0-0.4); Eosinophil (Absolute #) 0.16 x10^3/uL (0-0.5); Hemoglobin 10.2 g/dL (12.0-16.0); Lymphocyte (Absolute #) 0.93 x10^3/uL (1.0-4.6); Mean Cell Volume 86.6 fL (78-100); Mean Corpuscular Hemoglobin 28.5 pg (26-32); Mean Corpuscular Hgb Concent. 32.9 g/dL (32-36); Mean Platelet Volume 12.5 fL (7.5-11.0); Monocyte (Absolute #) 0.94 x10^3/uL (0.0-1.3); Monocytes % 6.1 % (0.0-12.0); Neutrophil % 86.1 % (36.0-66.0); Platelet Count 431 x10^3/uL (150-450); Red Blood Count 3.58 x10^6/uL (4.1-5.4); Red Cell Distribution Width 12.4 % (11.5-14.0); White Blood Count 15.5 x10^3/uL (4.0-10.5)
[2022-07-05 09:37] LABS: ANION GAP 16.2 MEQ/L (5-15); BILIRUBIN,TOTAL 0.5 mg/dL (0.2-1.3); Calcium 7.2 mg/dL (8.4-10.2); Creatinine 1 1.93 mg/dL (0.52-1.04); EST GLOMERULAR FILTRATION RATE 26.8 ML/MIN; Potassium 3.6 mmol/L (3.5-5.1); Total Protein 7.8 g/dL (6.3-8.2)
[2022-07-05] MEDS ORDERED: Calcium Gluconate 10% 1000 MG IV ONE ×2 (10:35→11:05)
[2022-07-05 11:23] LABS: Appearance CLEAR (CLEAR); Bilirubin NEGATIVE (NEGATIVE); Dipstick done @ ? MAIN LAB; Glucose 100 mg/dL (NEGATIVE); Ketones TRACE (NEGATIVE); Nitrite NEGATIVE (NEGATIVE); Protein,Urine Dip >=300 (Negative); RBC TRACE-INTACT Ery/ul (0-5); Specific Gravity 1.025 (1.005-1.025); Urobilinogen 0.2 mg/dL (0-1)
[2022-07-05 11:25] LABS: RBC 0-2 /HPF (0-2); WBC 0-2 /HPF (0-5)
[2022-07-05] MEDS ORDERED: Lasix 40 MG/4 ML ONE (11:35)
[2022-07-05] MEDS ORDERED: ENOXAPARIN SODIUM SQ ONE ×2 (11:35→12:27)
[2022-07-05 11:36] LABS: Urine Cultured Indicated? YES
[2022-07-05] MEDS ORDERED: Lasix 40 MG/4 ML IV ONE ×2 (11:36→21:43)
--- NOTE | 2022-07-05 11:52 | XRAY ---
Indication: Short of breath. Comparison: Taken earlier in the day Portable chest unchanged again demonstrating borderline cardiomegaly, central vascular congestion, interstitial edema, right infrahilar infiltrate/atelectasis, and tiny right effusion. No new cardiopulmonary abnormalities.
[2022-07-05] MEDS ORDERED: Sodium Chloride 0.9% 250 ML 250 ML IV ONE (15:39)
[2022-07-05] MEDS ORDERED: Lantus Insulin SQ STA (21:10)
[2022-07-05] MEDS ORDERED: DUONEB 0.5-3 MG/3 ml Neb IH ONE ×2 (21:37→21:50)
[2022-07-05] MEDS ORDERED: Ativan 2 MG/1 ML VIAL ONE (21:46)
[2022-07-05] MEDS ORDERED: CARDIZEM DRIP 100 MG/100 ML D5W 100 ML IV ONE (22:09)
[2022-07-06 02:10] LABS: INFLUENZA A NEGATIVE (NEGATIVE); INFLUENZA B NEGATIVE (NEGATIVE); RESPIRATORY SYNCTIAL VIRUS NEGATIVE (Negative); SARS-CoV-2 Xpert Express NEGATIVE (NEGATIVE)
[2022-07-06] MEDS ORDERED: Zofran 4 MG/2 ML VIAL IV PRN (03:18)
[2022-07-06] MEDS ORDERED: MAALOX ES 30 ML UNIT DOSE PO PRN (03:18)
[2022-07-06] MEDS ORDERED: TYLENOL 325 MG PO PRN (03:18)
[2022-07-06] MEDS ORDERED: Senokot-S Tablet PO PRN (03:18)
[2022-07-06] MEDS ORDERED: MILK OF MAGNESIA 30 ML PO PRN (03:18)
[2022-07-06] MEDS ORDERED: Lactated Ringers 1,000 ML IV ONE (03:45)
[2022-07-06] MEDS ORDERED: DUONEB 0.5-3 MG/3 ml Neb IH PRN (03:46)
[2022-07-06] MEDS ORDERED: CARDIZEM DRIP 100 MG/100 ML D5W 100 ML IV ONE (04:52)
[2022-07-06] MEDS: CARDIZEM DRIP 100 MG/100 ML D5W 100 ML IV PRN ×3 (04:59→17:33)
[2022-07-06 05:30] LABS: Risk Ratio 3.6
[2022-07-06] MEDS: HUMALOG SQ PRN ×4 (05:46→21:11)
[2022-07-06 07:44] LABS: Hematocrit 28.3 % (35-47); Mean Cell Volume 90.7 fL (78-100); Mean Corpuscular Hemoglobin 28.8 pg (26-32); Mean Corpuscular Hgb Concent. 31.8 g/dL (32-36); Mean Platelet Volume 12.9 fL (7.5-11.0); Platelet Count 410 x10^3/uL (150-450); Red Blood Count 3.12 x10^6/uL (4.1-5.4); Red Cell Distribution Width 12.8 % (11.5-14.0); White Blood Count 13.2 x10^3/uL (4.0-10.5)
[2022-07-06 07:56] LABS: ANION GAP 31.8 MEQ/L (5-15); Calcium 6.5 mg/dL (8.4-10.2); Creatinine 1 2.45 mg/dL (0.52-1.04); EST GLOMERULAR FILTRATION RATE 20.3 ML/MIN; Potassium 4.9 mmol/L (3.5-5.1)
[2022-07-06] MEDS ORDERED: Ativan 2 MG/1 ML VIAL IV ONE (08:12)
[2022-07-06 08:43] LABS: A-aADO2 177; ABG HEMOGLOBIN 9.8; ABG POTASSIUM 4.2 (3.5-5.1); ARTERIAL BLD GAS O2 SATURATION 99.6 % (95-100); ARTERIAL BLOOD GAS BASE EXCESS -11.6 (-2.0-2.0); ARTERIAL BLOOD GAS FIO2 50 %; ARTERIAL BLOOD GAS PO2 155 mmHg (75-100); ARTERIAL BLOOD GAS pH 7.38 (7.35-7.45); HCO3- 11.8 (22-28); HGB O2 SAT 97.5 g/dF (94-100); Methhemoglobin 1.1 % (1.4-1.5)
[2022-07-06 08:44] LABS: ARTERIAL BLOOD GAS PCO2 20 mmHg (35-45)
[2022-07-06 08:45] LABS: ABG SITE RIGHT RADIAL; ART BLD GAS PRESSURE SUPPORT 16; ARTERIAL BLOOD GAS PEEP 8 cmH2O; ARTERIAL BLOOD GAS VENT MODE bipap
[2022-07-06] MEDS ORDERED: Pepcid 20 MG PO PRN (09:24)
[2022-07-06] MEDS ORDERED: Lomotil PO PRN (09:24)
[2022-07-06] MEDS: Lyrica 50MG PO SCH ×3 (09:34→21:11)
[2022-07-06] MEDS: Lantus Insulin SQ SCH (09:34)
[2022-07-06] MEDS: MAG-OX 400 PO SCH ×3 (09:34→21:11)
[2022-07-06] MEDS: BUSPAR 5 MG PO SCH ×2 (09:34→21:11)
[2022-07-06] MEDS: Zocor 10MG PO SCH (09:38)
[2022-07-06] MEDS: Protonix 40MG Tablet PO SCH (09:39)
[2022-07-06] MEDS: Cozaar 50 MG PO SCH (09:39)
[2022-07-06] MEDS: SYNTHROID 75 MCG PO SCH (09:39)
[2022-07-06] MEDS: SYNTHROID 150 MCG PO SCH (09:39)
[2022-07-06] MEDS: Singulair 10 MG PO SCH (09:39)
[2022-07-06] MEDS: Aldactone 25 MG PO SCH (09:40)
[2022-07-06] MEDS: NORVASC 5 MG PO SCH (09:41)
[2022-07-06] MEDS: CLARITIN 10 MG PO SCH (09:51)
[2022-07-06] MEDS ORDERED: NON-FORMULARY ITEM (Spironolactone [Aldactone] 50 MG Tablet) PO SCH (10:00)
[2022-07-06] MEDS ORDERED: NON-FORMULARY ITEM (Cetirizine Hcl [Zyrtec] 10 MG Tablet) PO SCH (10:00)
[2022-07-06] MEDS ORDERED: NON-FORMULARY ITEM (Pravastatin Sodium [Pravastatin Sodium] 40 MG Tablet) PO SCH (10:00)
[2022-07-06] MEDS ORDERED: NON-FORMULARY ITEM (Losartan Potassium [Cozaar] 25 MG Tablet) PO SCH (10:00)
[2022-07-06] MEDS ORDERED: LEVOTHYROXINE SODIUM 300 MCG PO SCH (10:00)
[2022-07-06] MEDS ORDERED: PLAVIX Tablet PO SCH (10:00)
[2022-07-06] MEDS ORDERED: NON-FORMULARY ITEM (Amlodipine Besylate [Norvasc] 10 MG Tablet) PO SCH (10:00)
[2022-07-06] MEDS ORDERED: Haldol 5 MG IV PRN (10:58)
[2022-07-06 12:22] LABS: A-aADO2 143; ABG HEMOGLOBIN 9.4; ABG POTASSIUM 3.7 (3.5-5.1); ARTERIAL BLD GAS O2 SATURATION 99.1 % (95-100); ARTERIAL BLOOD GAS BASE EXCESS -3.9 (-2.0-2.0); ARTERIAL BLOOD GAS FIO2 40 %; ARTERIAL BLOOD GAS PCO2 25 mmHg (35-45); ARTERIAL BLOOD GAS PO2 111 mmHg (75-100); ARTERIAL BLOOD GAS pH 7.48 (7.35-7.45); CARBOXYHEMOGLOBIN 0.9 % THgb (0.0-6.9); HCO3- 18.6 (22-28); HGB O2 SAT 97.1 g/dF (94-100); Methhemoglobin 1.1 % (1.4-1.5)
[2022-07-06 12:24] LABS: ALLEN TEST OK? yes
[2022-07-06] MEDS ORDERED: PIPERACILLIN/TAZOBACTAM 3.375 GM in Sodium Chloride 100ML MINI-BAG PLUS 100 ML IV SCH (13:21)
--- NOTE | 2022-07-06 13:22 | PCM.SSS ---
History of Present Illness - Chief Complaint Chief Complaint: SVT, CHF History of Present Illness: is a 77 year old female pt of mine from [facility] who was admitted through ER with SOB, respiratory infection, SVT on cardizem drip. She has a hx DM I on insulin, CKD 3, COPD, CAD, PVD, HTN, hypothyroidism, celiac disease, peripheral neuropathy, and GERD. She woke up SOB yesterday and had palpitations; in ER her HR was up to 211. She was in SVT with possibly some underlying afib. The E R physician spoke with psychology instructor, Dr. Boykin, who wanted her transferred to and also referred to EP. ER MD actually spoke with an EP who recommended we cardiovert the pt and discharge her home from the ER. Pt was instead kept in the ER on the monitor and cardizem drip for 14-16 hours then moved to an ICU bed at our [facility] facility. This morning her O2 sat worsened and she was placed on Bipap. I saw the pt, her CO2 was low on ABG, and she was placed on AVAPs by Dr. Tipton, pulmonology, thank you. I have added an antibiotic to cover respiratory pathogens. Pt has CKD 3 at baseline but her eGFR was 26.8 on admission and 20.3 this morning. Her urine output is very poor. Troponin elevated - likely due to heart strain from the SVT. BNP 4950 at admission and 5780 this morning. I just received a call from Dr. Armstrong at [facility], thank you, and they will take the pt in transfer, hopefully later on today. - Review of Systems Respiratory: Cough, Short Of Breath Cardiac: Chest Pain, Palpitations All Other Systems: Unable due to condition (pt on bipap) Medications & Allergies Home Medications: Home Medication List Spironolactone [Aldactone] 25 mg PO DAILY 11/13/13 [History Confirmed 07/06/22] Diphenoxylate HCl/Atropine [Lomotil] 1 tab PO QID PRN 09/14/16 [History Confirmed 07/06/22] Clopidogrel Bisulfate [Clopidogrel] 75 mg PO DAILY 01/20/18 [History Confirmed 07/06/22] Montelukast Sodium 10 mg [Singulair 10 MG] 10 mg PO DAILY 01/20/18 [History Confirmed 07/06/22] Amlodipine Besylate [Norvasc] 10 mg PO DAILY 12/02/20 [History Confirmed 07/06/22] Buspirone HCl 5 mg [Buspar 5 mg] 5 mg PO BID 12/02/20 [History Confirmed 07/06/22] Cetirizine HCl [Zyrtec] 10 mg PO DAILY 12/02/20 [History Confirmed 07/06/22] Famotidine 20 mg [Pepcid 20 MG] 20 mg PO BID PRN 12/02/20 [History Confirmed 07/06/22] Levothyroxine Sodium [Unithroid] 375 mcg PO DAILY 12/02/20 [History Confirmed 07/06/22] Losartan Potassium [Cozaar] 25 mg PO DAILY 12/02/20 [History Confirmed 07/06/22] Magnesium Oxide 400 mg [Mag-Ox 400] 400 mg PO TID 12/02/20 [History Confirmed 07/06/22] Calcium Carbonate/Vitamin D3 [[place] 500-Vit D3 200 Tablet] 2 each PO DAILY 07/06/22 [History Confirmed 07/06/22] Insulin Glargine [Lantus Insulin] 24 unit SQ DAILY 07/06/22 [History Confirmed 07/06/22] PANTOPRAZOLE 40 mg Tablet [Protonix 40MG Tablet] 40 mg PO QAM 07/06/22 [History Confirmed 07/06/22] Pravastatin Sodium 40 mg PO DAILY 07/06/22 [History Confirmed 07/06/22] Pregabalin 50 mg [Lyrica 50MG] 50 mg PO TID 07/06/22 [History Confirmed 07/06/22] Allergies/Adverse Reactions: Allergies Allergy/AdvReac Type Severity Reaction Status Date / Time albuterol Allergy Intermediate Swelling Verified 07/05/22 08:13 of Tongue and Lips propranolol [From Inderal LA] Allergy Intermediate Verified 07/05/22 08:13 clonazepam [From Klonopin] Allergy Tightness Verified 07/05/22 08:13 of Throat metoclopramide [From Reglan] Allergy Verified 07/05/22 08:13 propranolol HCl Allergy Swelling Verified 07/05/22 08:13 [From Inderal LA] of Tongue and Lips Sulfa (Sulfonamide Allergy Swelling Verified 07/05/22 08:13 Antibiotics) of Tongue and Lips terfenadine Allergy Verified 07/05/22 08:13 venom-honey bee Allergy Hives Verified 07/05/22 08:13 [bee venom (honey bee)] zanamivir Allergy Swelling Verified 07/05/22 08:13 [From Relenza Diskhaler] of Tongue and Lips cilostazol [From Pletal] AdvReac Severe Swelling Verified 07/05/22 08:13 of Tongue and Lips ticagrelor [From Brilinta] AdvReac Severe Swelling Verified 07/05/22 08:13 of Tongue and Lips - Past Medical History Past Medical History: Yes Neurological History: TIA, Peripheral Neuropathy ENT History: Other Cardiac History: Hypertension Respiratory History: COPD Endocrine Medical History: Diabetes Type I, Hypothyroidism Musculoskelatal History: No Pertinent History GI Medical History: Other, GERD History: No Pertinent History Pyscho-Social History: Anxiety Reproductive Disorders: Breast Cancer Comment: right eye retinal scratch November 2020 - Female History Are you now?: No - Past Surgical History Past Surgical History: Yes Neuro Surgical History: No Pertinent History Cardiac History: Other Respiratory Surgery: No Pertinent History GI Surgical History: Hernia Repair Genitourinary Surgical Hx: No Pertinent History Musculskeletal Surgical Hx: No Pertinent History Female Surgical History: Mastectomy, Lumpectomy Other Surgical History: left mastectomy 1993, right lumpectomy, right thyroid removed, left thyroid removed with goiter, pubic mass, left knee scope, valve replacement - Social History Smoking Status: Never smoker Exposure to second hand smoke: No Alcohol: None Drug Use: none - Physical Exam Vital Signs: Vital Signs - 24 hr Temp Pulse Resp BP BP Pulse Ox 07/06/22 13:00 87 119/78 07/06/22 11:57 97.9 F 110 H 16 116/89 97 07/06/22 11:29 94 H 07/06/22 10:45 94 H 138/64 07/06/22 10:37 95 H 07/06/22 10:04 84 07/06/22 10:00 84 07/06/22 09:03 84 07/06/22 09:00 84 07/06/22 08:08 93 H 07/06/22 08:00 93 H 07/06/22 07:58 99.0 F 97 H 31 H 127/65 98 07/06/22 07:33 93 H 07/06/22 07:00 93 H 21 151/87 07/06/22 04:59 98 H 37 H 137/63 07/06/22 04:00 98.1 F 102 H 30 H 137/63 98 07/06/22 03:47 107 H 26 H 122/60 98 07/06/22 02:00 107 H 26 H 122/60 98 07/06/22 01:00 117 H 26 H 118/68 92 L 07/06/22 00:00 111 H 28 H 137/85 94 L 07/05/22 23:48 113 H 28 H 143/72 92 L 07/05/22 23:25 93 L 07/05/22 22:11 129 H 32 H 133/74 07/05/22 22:05 129 H 34 H 133/74 07/05/22 22:00 133 H 30 H 133/84 99 07/05/22 21:50 167 H 32 H 89 L 07/05/22 21:44 153 H 40 H 90 L 07/05/22 20:00 123 H 18 97 07/05/22 19:25 75 16 150/94 92 L 07/05/22 18:23 146 H 16 140/85 92 L 07/05/22 17:16 135 H 14 107/86 95 07/05/22 15:24 139 H 25 H 134/93 07/05/22 14:34 129 H 22 155/86 95 07/05/22 14:30 124 H 23 155/86 07/05/22 13:39 121 H 24 112/80 99 07/05/22 13:30 127 H 34 H General Appearance: other (on bipap; pleasant, answers questions as well as she can with Bipap in place) Neurologic Exam: oriented x 3, cooperative Eye Exam: eyes nml inspection Ears, Nose, Throat Exam: moist mucous membranes Neck Exam: normal inspection Respiratory Exam: lungs clear, diminished breath sounds (good air exchange), No crackles/rales, No wheezing Cardiovascular Exam: tachycardia, No normal heart sounds (distant), No murmur Gastrointestinal/Abdomen Exam: soft, No normal bowel sounds (hypoactive but present), No tenderness, No distention, No mass, No guarding, No rebound Back Exam: normal inspection, No rash Extremity Exam: normal inspection, No pedal edema, No swelling Results - Labs Lab/Micro Results: Lab Results-Last 24 Hours 07/05/22 07/05/22 07/05/22 Range/Units 12:38 16:16 20:04 WBC (4.0-10.5) x10^3/uL RBC (4.1-5.4) x10^6/uL Hgb (12.0-16.0) g/dL Hct (35-47) % MCV (78-100) fL MCH (26-32) pg MCHC (32-36) g/dL RDW (11.5-14.0) % Plt Count (150-450) x10^3/uL MPV (7.5-11.0) fL Puncture Site pCO2 (35-45) mmHg pO2 (75-100) mmHg Base Excess (-2.0-2.0) O2 Saturation (94-100) g/dF ABG pH (7.35-7.45) ABG HCO3 (22-28) ABG O2 Sat (Measured) (95-100) % Jg Test A-a Gradient a/A Ratio Hemoglobin Carboxyhemoglobin (0.0-6.9) % THgb Methemoglobin (1.4-1.5) % Temperature C POC O2 Flow Rate % Vent Mode PEEP cmH2O Pressure Support Sodium (137-145) mmol/L Potassium (3.5-5.1) mmol/L Chloride (98-107) mmol/L Carbon Dioxide (22-30) mmol/L Anion Gap (5-15) MEQ/L BUN (7-17) mg/dL Creatinine (0.52-1.04) mg/dL Estimated GFR ML/MIN Glucose (74-106) mg/dL POC Glucometer 338 H (74 to 106) mg/dL Calcium (8.4-10.2) mg/dL Troponin I 0.078 H* 0.083 H* (0.000-0.034) ng/mL NT-Pro-B Natriuret Pep (0-1800) pg/mL Prealbumin (17.6-36.0) mg/dL Triglycerides (30-150) mg/dL Cholesterol (50-200) mg/dL LDL Cholesterol (30-100) mg/dL HDL Cholesterol (40-60) mg/dL Heart Disease Risk Ratio Influenza Type A Ag (NEGATIVE) Influenza Type B Ag (NEGATIVE) RSV (PCR) (Negative) SARS-CoV-2 (PCR) (NEGATIVE) 07/06/22 07/06/22 07/06/22 Range/Units 01:30 04:15 04:15 WBC (4.0-10.5) x10^3/uL RBC (4.1-5.4) x10^6/uL Hgb (12.0-16.0) g/dL Hct (35-47) % MCV (78-100) fL MCH (26-32) pg MCHC (32-36) g/dL RDW (11.5-14.0) % Plt Count (150-450) x10^3/uL MPV (7.5-11.0) fL Puncture Site pCO2 (35-45) mmHg pO2 (75-100) mmHg Base Excess (-2.0-2.0) O2 Saturation (94-100) g/dF ABG pH (7.35-7.45) ABG HCO3 (22-28) ABG O2 Sat (Measured) (95-100) % Jg Test A-a Gradient a/A Ratio Hemoglobin Carboxyhemoglobin (0.0-6.9) % THgb Methemoglobin (1.4-1.5) % Temperature C POC O2 Flow Rate % Vent Mode PEEP cmH2O Pressure Support Sodium (137-145) mmol/L Potassium (3.5-5.1) mmol/L Chloride (98-107) mmol/L Carbon Dioxide (22-30) mmol/L Anion Gap (5-15) MEQ/L BUN (7-17) mg/dL Creatinine (0.52-1.04) mg/dL Estimated GFR ML/MIN Glucose (74-106) mg/dL POC Glucometer (74 to 106) mg/dL Calcium (8.4-10.2) mg/dL Troponin I (0.000-0.034) ng/mL NT-Pro-B Natriuret Pep (0-1800) pg/mL Prealbumin 13.64 L (17.6-36.0) mg/dL Triglycerides 119 (30-150) mg/dL Cholesterol 146 (50-200) mg/dL LDL Cholesterol 77 (30-100) mg/dL HDL Cholesterol 41 (40-60) mg/dL Heart Disease Risk Ratio 3.6 Influenza Type A Ag NEGATIVE (NEGATIVE) Influenza Type B Ag NEGATIVE (NEGATIVE) RSV (PCR) NEGATIVE (Negative) SARS-CoV-2 (PCR) NEGATIVE (NEGATIVE) 07/06/22 07/06/22 07/06/22 Range/Units 04:40 04:40 05:18 WBC 13.2 H (4.0-10.5) x10^3/uL RBC 3.12 L (4.1-5.4) x10^6/uL Hgb 9.0 L (12.0-16.0) g/dL Hct 28.3 L (35-47) % MCV 90.7 (78-100) fL MCH 28.8 (26-32) pg MCHC 31.8 L (32-36) g/dL RDW 12.8 (11.5-14.0) % Plt Count 410 (150-450) x10^3/uL MPV 12.9 H (7.5-11.0) fL Puncture Site pCO2 (35-45) mmHg pO2 (75-100) mmHg Base Excess (-2.0-2.0) O2 Saturation (94-100) g/dF ABG pH (7.35-7.45) ABG HCO3 (22-28) ABG O2 Sat (Measured) (95-100) % Jg Test A-a Gradient a/A Ratio Hemoglobin Carboxyhemoglobin (0.0-6.9) % THgb Methemoglobin (1.4-1.5) % Temperature C POC O2 Flow Rate % Vent Mode PEEP cmH2O Pressure Support Sodium 133 L (137-145) mmol/L Potassium 4.9 D (3.5-5.1) mmol/L Chloride 97 L (98-107) mmol/L Carbon Dioxide 9 L* (22-30) mmol/L Anion Gap 31.8 H (5-15) MEQ/L BUN 37 H (7-17) mg/dL Creatinine 2.45 H (0.52-1.04) mg/dL Estimated GFR 20.3 ML/MIN Glucose 550 H* (74-106) mg/dL POC Glucometer 516 H* (74 to 106) mg/dL Calcium 6.5 L (8.4-10.2) mg/dL Troponin I (0.000-0.034) ng/mL NT-Pro-B Natriuret Pep 5780 H (0-1800) pg/mL Prealbumin (17.6-36.0) mg/dL Triglycerides (30-150) mg/dL Cholesterol (50-200) mg/dL LDL Cholesterol (30-100) mg/dL HDL Cholesterol (40-60) mg/dL Heart Disease Risk Ratio Influenza Type A Ag (NEGATIVE) Influenza Type B Ag (NEGATIVE) RSV (PCR) (Negative) SARS-CoV-2 (PCR) (NEGATIVE) 07/06/22 07/06/22 07/06/22 Range/Units 05:21 08:07 08:29 WBC (4.0-10.5) x10^3/uL RBC (4.1-5.4) x10^6/uL Hgb (12.0-16.0) g/dL Hct (35-47) % MCV (78-100) fL MCH (26-32) pg MCHC (32-36) g/dL RDW (11.5-14.0) % Plt Count (150-450) x10^3/uL MPV (7.5-11.0) fL Puncture Site RIGHT RADIAL pCO2 20 L* (35-45) mmHg pO2 155 H* (75-100) mmHg Base Excess -11.6 L (-2.0-2.0) O2 Saturation 97.5 (94-100) g/dF ABG pH 7.38 (7.35-7.45) ABG HCO3 11.8 L* (22-28) ABG O2 Sat (Measured) 99.6 (95-100) % Jg Test YEs A-a Gradient 177 a/A Ratio 0.47 Hemoglobin 9.8 Carboxyhemoglobin 1.0 (0.0-6.9) % THgb Methemoglobin 1.1 L (1.4-1.5) % Temperature 37.0 C POC O2 Flow Rate 50 % Vent Mode bipap PEEP 8 cmH2O Pressure Support 16 Sodium (137-145) mmol/L Potassium 4.2 (3.5-5.1) mmol/L Chloride (98-107) mmol/L Carbon Dioxide (22-30) mmol/L Anion Gap (5-15) MEQ/L BUN (7-17) mg/dL Creatinine (0.52-1.04) mg/dL Estimated GFR ML/MIN Glucose (74-106) mg/dL POC Glucometer 478 H 486 H (74 to 106) mg/dL Calcium (8.4-10.2) mg/dL Troponin I (0.000-0.034) ng/mL NT-Pro-B Natriuret Pep (0-1800) pg/mL Prealbumin (17.6-36.0) mg/dL Triglycerides (30-150) mg/dL Cholesterol (50-200) mg/dL LDL Cholesterol (30-100) mg/dL HDL Cholesterol (40-60) mg/dL Heart Disease Risk Ratio Influenza Type A Ag (NEGATIVE) Influenza Type B Ag (NEGATIVE) RSV (PCR) (Negative) SARS-CoV-2 (PCR) (NEGATIVE) 07/06/22 07/06/22 Range/Units 11:43 12:20 WBC (4.0-10.5) x10^3/uL RBC (4.1-5.4) x10^6/uL Hgb (12.0-16.0) g/dL Hct (35-47) % MCV (78-100) fL MCH (26-32) pg MCHC (32-36) g/dL RDW (11.5-14.0) % Plt Count (150-450) x10^3/uL MPV (7.5-11.0) fL Puncture Site left rad pCO2 25 L (35-45) mmHg pO2 111 H (75-100) mmHg Base Excess -3.9 L (-2.0-2.0) O2 Saturation 97.1 (94-100) g/dF ABG pH 7.48 H (7.35-7.45) ABG HCO3 18.6 L (22-28) ABG O2 Sat (Measured) 99.1 (95-100) % Jg Test yes A-a Gradient 143 a/A Ratio 0.44 Hemoglobin 9.4 Carboxyhemoglobin 0.9 (0.0-6.9) % THgb Methemoglobin 1.1 L (1.4-1.5) % Temperature 37.0 C POC O2 Flow Rate 40 % Vent Mode PEEP cmH2O Pressure Support Sodium (137-145) mmol/L Potassium 3.7 (3.5-5.1) mmol/L Chloride (98-107) mmol/L Carbon Dioxide (22-30) mmol/L Anion Gap (5-15) MEQ/L BUN (7-17) mg/dL Creatinine (0.52-1.04) mg/dL Estimated GFR ML/MIN Glucose (74-106) mg/dL POC Glucometer 356 H (74 to 106) mg/dL Calcium (8.4-10.2) mg/dL Troponin I (0.000-0.034) ng/mL NT-Pro-B Natriuret Pep (0-1800) pg/mL Prealbumin (17.6-36.0) mg/dL Triglycerides (30-150) mg/dL Cholesterol (50-200) mg/dL LDL Cholesterol (30-100) mg/dL HDL Cholesterol (40-60) mg/dL Heart Disease Risk Ratio Influenza Type A Ag (NEGATIVE) Influenza Type B Ag (NEGATIVE) RSV (PCR) (Negative) SARS-CoV-2 (PCR) (NEGATIVE) Microbiology 07/05/22 11:15 Urine Culture - Preliminary Catherized NO GROWTH TO DATE Accuchecks Date 07/06/22 Date 07/06/22 Date 07/05/22 Time 11:56 Time 08:09 Time 20:05 - Radiology Impressions Radiology Exams & Impressions: Radiology Procedures Category Date Time Status CHEST 1 VIEW (PORTABLE) Stat Exams 07/05/22 08:26 Completed CHEST 1 VIEW (PORTABLE) Stat Exams 07/05/22 11:37 Completed - Other Procedures and Tests Respiratory Therapy 07/05/22 22:21 Respiratory Therapy Assessment DAILY 07/06/22 03:43 Oxygen Nasal Cannula 6 lpm 07/07/22 05:00 EKG ROUTINE 07/08/22 05:00 EKG ROUTINE Assessment/Plan (1) Respiratory distress Current Visit: Yes Status: Acute Assessment & Plan: Likely due to respiratory infection and CHF - re-ordered IV lasix and started zosyn to cover respiratory pathogens. She is on Bipap/AVAPS. Dr. Tipton consulted, thank you. Cardiology consult ordered as well. Await transfer of pt to tertiary care center. Code(s): R06.03 - ACUTE RESPIRATORY DISTRESS (2) SVT (supraventricular tachycardia) Current Visit: Yes Status: Acute Code(s): I47.1 - SUPRAVENTRICULAR TACHYCARDIA (3) Acute on chronic renal failure Current Visit: Yes Status: Acute Code(s): N17.9 - ACUTE KIDNEY FAILURE, UNSPECIFIED; N18.9 - CHRONIC KIDNEY DISEASE, UNSPECIFIED (4) SUSAN (acute respiratory infection) Current Visit: Yes Status: Acute Code(s): J22 - UNSPECIFIED ACUTE LOWER RESPIRATORY INFECTION (5) CHF (congestive heart failure) Current Visit: Yes Status: Acute Qualifiers: Heart failure chronicity: acute on chronic Code(s): I50.9 - HEART FAILURE, UNSPECIFIED (6) Leukocytosis Current Visit: Yes Status: Acute Qualifiers: Leukocytosis type: unspecified Qualified Code(s): D72.829 - Elevated white blood cell count, unspecified Code(s): D72.829 - ELEVATED WHITE BLOOD CELL COUNT, UNSPECIFIED (7) Anemia Current Visit: Yes Status: Acute Code(s): D64.9 - ANEMIA, UNSPECIFIED (8) Elevated troponin Current Visit: Yes Status: Acute Code(s): R77.8 - OTHER SPECIFIED ABNORMALITIES OF PLASMA PROTEINS Hospital Summary - Hospital Course Hospital Course: Pt is seriously ill 77 yo female pt with DM I, CKD 3, and COPD with repiratory distress, CHF, respiratory infection, and SVT. She is on cardizem drip with HR now in the 90s and is on Bipap. Will be transferred to tertiary care center, hopefully today, as they have availability. - Vitals & Intake/Output Vital Signs: Vital Signs Temperature 97.9 F 07/06/22 11:57 Pulse Rate 87 07/06/22 13:00 Respiratory Rate 16 07/06/22 11:57 Blood Pressure 119/78 07/06/22 13:00 O2 Sat by Pulse Oximetry 97 07/06/22 11:57 Intake & Output: Intake & Output 07/04/22 07/05/22 07/06/22 07/07/22 11:59 11:59 11:59 11:59 Intake Total 40 Output Total 400 1600 Balance -400 -1560 Weight 79.6 kg 77.3 kg - Lab Result Diagrams: 07/06/22 04:40 07/06/22 04:40 Lab Results-Last 24 Hrs: Lab Results-Last 24 Hours 07/05/22 07/05/22 07/05/22 Range/Units 12:38 16:16 20:04 WBC (4.0-10.5) x10^3/uL RBC (4.1-5.4) x10^6/uL Hgb (12.0-16.0) g/dL Hct (35-47) % MCV (78-100) fL MCH (26-32) pg MCHC (32-36) g/dL RDW (11.5-14.0) % Plt Count (150-450) x10^3/uL MPV (7.5-11.0) fL Puncture Site pCO2 (35-45) mmHg pO2 (75-100) mmHg Base Excess (-2.0-2.0) O2 Saturation (94-100) g/dF ABG pH (7.35-7.45) ABG HCO3 (22-28) ABG O2 Sat (Measured) (95-100) % Jg Test A-a Gradient a/A Ratio Hemoglobin Carboxyhemoglobin (0.0-6.9) % THgb Methemoglobin (1.4-1.5) % Temperature C POC O2 Flow Rate % Vent Mode PEEP cmH2O Pressure Support Sodium (137-145) mmol/L Potassium (3.5-5.1) mmol/L Chloride (98-107) mmol/L Carbon Dioxide (22-30) mmol/L Anion Gap (5-15) MEQ/L BUN (7-17) mg/dL Creatinine (0.52-1.04) mg/dL Estimated GFR ML/MIN Glucose (74-106) mg/dL POC Glucometer 338 H (74 to 106) mg/dL Calcium (8.4-10.2) mg/dL Troponin I 0.078 H* 0.083 H* (0.000-0.034) ng/mL NT-Pro-B Natriuret Pep (0-1800) pg/mL Prealbumin (17.6-36.0) mg/dL Triglycerides (30-150) mg/dL Cholesterol (50-200) mg/dL LDL Cholesterol (30-100) mg/dL HDL Cholesterol (40-60) mg/dL Heart Disease Risk Ratio Influenza Type A Ag (NEGATIVE) Influenza Type B Ag (NEGATIVE) RSV (PCR) (Negative) SARS-CoV-2 (PCR) (NEGATIVE) 07/06/22 07/06/22 07/06/22 Range/Units 01:30 04:15 04:15 WBC (4.0-10.5) x10^3/uL RBC (4.1-5.4) x10^6/uL Hgb (12.0-16.0) g/dL Hct (35-47) % MCV (78-100) fL MCH (26-32) pg MCHC (32-36) g/dL RDW (11.5-14.0) % Plt Count (150-450) x10^3/uL MPV (7.5-11.0) fL Puncture Site pCO2 (35-45) mmHg pO2 (75-100) mmHg Base Excess (-2.0-2.0) O2 Saturation (94-100) g/dF ABG pH (7.35-7.45) ABG HCO3 (22-28) ABG O2 Sat (Measured) (95-100) % Jg Test A-a Gradient a/A Ratio Hemoglobin Carboxyhemoglobin (0.0-6.9) % THgb Methemoglobin (1.4-1.5) % Temperature C POC O2 Flow Rate % Vent Mode PEEP cmH2O Pressure Support Sodium (137-145) mmol/L Potassium (3.5-5.1) mmol/L Chloride (98-107) mmol/L Carbon Dioxide (22-30) mmol/L Anion Gap (5-15) MEQ/L BUN (7-17) mg/dL Creatinine (0.52-1.04) mg/dL Estimated GFR ML/MIN Glucose (74-106) mg/dL POC Glucometer (74 to 106) mg/dL Calcium (8.4-10.2) mg/dL Troponin I (0.000-0.034) ng/mL NT-Pro-B Natriuret Pep (0-1800) pg/mL Prealbumin 13.64 L (17.6-36.0) mg/dL Triglycerides 119 (30-150) mg/dL Cholesterol 146 (50-200) mg/dL LDL Cholesterol 77 (30-100) mg/dL HDL Cholesterol 41 (40-60) mg/dL Heart Disease Risk Ratio 3.6 Influenza Type A Ag NEGATIVE (NEGATIVE) Influenza Type B Ag NEGATIVE (NEGATIVE) RSV (PCR) NEGATIVE (Negative) SARS-CoV-2 (PCR) NEGATIVE (NEGATIVE) 07/06/22 07/06/22 07/06/22 Range/Units 04:40 04:40 05:18 WBC 13.2 H (4.0-10.5) x10^3/uL RBC 3.12 L (4.1-5.4) x10^6/uL Hgb 9.0 L (12.0-16.0) g/dL Hct 28.3 L (35-47) % MCV 90.7 (78-100) fL MCH 28.8 (26-32) pg MCHC 31.8 L (32-36) g/dL RDW 12.8 (11.5-14.0) % Plt Count 410 (150-450) x10^3/uL MPV 12.9 H (7.5-11.0) fL Puncture Site pCO2 (35-45) mmHg pO2 (75-100) mmHg Base Excess (-2.0-2.0) O2 Saturation (94-100) g/dF ABG pH (7.35-7.45) ABG HCO3 (22-28) ABG O2 Sat (Measured) (95-100) % Jg Test A-a Gradient a/A Ratio Hemoglobin Carboxyhemoglobin (0.0-6.9) % THgb Methemoglobin (1.4-1.5) % Temperature C POC O2 Flow Rate % Vent Mode PEEP cmH2O Pressure Support Sodium 133 L (137-145) mmol/L Potassium 4.9 D (3.5-5.1) mmol/L Chloride 97 L (98-107) mmol/L Carbon Dioxide 9 L* (22-30) mmol/L Anion Gap 31.8 H (5-15) MEQ/L BUN 37 H (7-17) mg/dL Creatinine 2.45 H (0.52-1.04) mg/dL Estimated GFR 20.3 ML/MIN Glucose 550 H* (74-106) mg/dL POC Glucometer 516 H* (74 to 106) mg/dL Calcium 6.5 L (8.4-10.2) mg/dL Troponin I (0.000-0.034) ng/mL NT-Pro-B Natriuret Pep 5780 H (0-1800) pg/mL Prealbumin (17.6-36.0) mg/dL Triglycerides (30-150) mg/dL Cholesterol (50-200) mg/dL LDL Cholesterol (30-100) mg/dL HDL Cholesterol (40-60) mg/dL Heart Disease Risk Ratio Influenza Type A Ag (NEGATIVE) Influenza Type B Ag (NEGATIVE) RSV (PCR) (Negative) SARS-CoV-2 (PCR) (NEGATIVE) 07/06/22 07/06/22 07/06/22 Range/Units 05:21 08:07 08:29 WBC (4.0-10.5) x10^3/uL RBC (4.1-5.4) x10^6/uL Hgb (12.0-16.0) g/dL Hct (35-47) % MCV (78-100) fL MCH (26-32) pg MCHC (32-36) g/dL RDW (11.5-14.0) % Plt Count (150-450) x10^3/uL MPV (7.5-11.0) fL Puncture Site RIGHT RADIAL pCO2 20 L* (35-45) mmHg pO2 155 H* (75-100) mmHg Base Excess -11.6 L (-2.0-2.0) O2 Saturation 97.5 (94-100) g/dF ABG pH 7.38 (7.35-7.45) ABG HCO3 11.8 L* (22-28) ABG O2 Sat (Measured) 99.6 (95-100) % Jg Test YEs A-a Gradient 177 a/A Ratio 0.47 Hemoglobin 9.8 Carboxyhemoglobin 1.0 (0.0-6.9) % THgb Methemoglobin 1.1 L (1.4-1.5) % Temperature 37.0 C POC O2 Flow Rate 50 % Vent Mode bipap PEEP 8 cmH2O Pressure Support 16 Sodium (137-145) mmol/L Potassium 4.2 (3.5-5.1) mmol/L Chloride (98-107) mmol/L Carbon Dioxide (22-30) mmol/L Anion Gap (5-15) MEQ/L BUN (7-17) mg/dL Creatinine (0.52-1.04) mg/dL Estimated GFR ML/MIN Glucose (74-106) mg/dL POC Glucometer 478 H 486 H (74 to 106) mg/dL Calcium (8.4-10.2) mg/dL Troponin I (0.000-0.034) ng/mL NT-Pro-B Natriuret Pep (0-1800) pg/mL Prealbumin (17.6-36.0) mg/dL Triglycerides (30-150) mg/dL Cholesterol (50-200) mg/dL LDL Cholesterol (30-100) mg/dL HDL Cholesterol (40-60) mg/dL Heart Disease Risk Ratio Influenza Type A Ag (NEGATIVE) Influenza Type B Ag (NEGATIVE) RSV (PCR) (Negative) SARS-CoV-2 (PCR) (NEGATIVE) 07/06/22 07/06/22 Range/Units 11:43 12:20 WBC (4.0-10.5) x10^3/uL RBC (4.1-5.4) x10^6/uL Hgb (12.0-16.0) g/dL Hct (35-47) % MCV (78-100) fL MCH (26-32) pg MCHC (32-36) g/dL RDW (11.5-14.0) % Plt Count (150-450) x10^3/uL MPV (7.5-11.0) fL Puncture Site left rad pCO2 25 L (35-45) mmHg pO2 111 H (75-100) mmHg Base Excess -3.9 L (-2.0-2.0) O2 Saturation 97.1 (94-100) g/dF ABG pH 7.48 H (7.35-7.45) ABG HCO3 18.6 L (22-28) ABG O2 Sat (Measured) 99.1 (95-100) % Jg Test yes A-a Gradient 143 a/A Ratio 0.44 Hemoglobin 9.4 Carboxyhemoglobin 0.9 (0.0-6.9) % THgb Methemoglobin 1.1 L (1.4-1.5) % Temperature 37.0 C POC O2 Flow Rate 40 % Vent Mode PEEP cmH2O Pressure Support Sodium (137-145) mmol/L Potassium 3.7 (3.5-5.1) mmol/L Chloride (98-107) mmol/L Carbon Dioxide (22-30) mmol/L Anion Gap (5-15) MEQ/L BUN (7-17) mg/dL Creatinine (0.52-1.04) mg/dL Estimated GFR ML/MIN Glucose (74-106) mg/dL POC Glucometer 356 H (74 to 106) mg/dL Calcium (8.4-10.2) mg/dL Troponin I (0.000-0.034) ng/mL NT-Pro-B Natriuret Pep (0-1800) pg/mL Prealbumin (17.6-36.0) mg/dL Triglycerides (30-150) mg/dL Cholesterol (50-200) mg/dL LDL Cholesterol (30-100) mg/dL HDL Cholesterol (40-60) mg/dL Heart Disease Risk Ratio Influenza Type A Ag (NEGATIVE) Influenza Type B Ag (NEGATIVE) RSV (PCR) (Negative) SARS-CoV-2 (PCR) (NEGATIVE) Micro Results-Entire Visit: Microbiology 07/05/22 11:15 Urine Culture - Preliminary Catherized NO GROWTH TO DATE Accuchecks Date 07/06/22 Date 07/06/22 Date 07/05/22 Time 11:56 Time 08:09 Time 20:05 - Radiology Exams Ordered Rad Exams-Entire Visit: Radiology Procedures Category Date Time Status CHEST 1 VIEW (PORTABLE) Stat Exams 07/05/22 08:26 Completed CHEST 1 VIEW (PORTABLE) Stat Exams 07/05/22 11:37 Completed - Procedures and Test Procedures and Tests throughout Hospitalization: Therapy Orders & Screens 07/05/22 12:08 BiPap/CPAP ROUTINE Comment: 07/05/22 22:21 Respiratory Therapy Assessment DAILY Comment: 07/06/22 03:18 EKG [id number],QAMX3,PRN Comment: 07/06/22 03:43 Oxygen Nasal Cannula 6 lpm Comment: Diagnosis: SVT, CHF 07/06/22 05:00 EKG ROUTINE Comment: Diagnosis: SVT, CHF 07/07/22 05:00 EKG ROUTINE Comment: Diagnosis: SVT, CHF 07/08/22 05:00 EKG ROUTINE Comment: Diagnosis: SVT, CHF - Discharge Disposition: Home, Self-Care Condition: Stable Prescriptions: No Action Spironolactone [Aldactone] 25 mg PO DAILY Diphenoxylate HCl/Atropine [Lomotil] 1 tab PO QID PRN PRN Reason: Diarrhea Montelukast Sodium 10 mg [Singulair 10 MG] 10 mg PO DAILY Clopidogrel Bisulfate [Clopidogrel] 75 mg PO DAILY Amlodipine Besylate [Norvasc] 10 mg PO DAILY Buspirone HCl 5 mg [Buspar 5 mg] 5 mg PO BID Famotidine 20 mg [Pepcid 20 MG] 20 mg PO BID PRN PRN Reason: Indigestion Cetirizine HCl [Zyrtec] 10 mg PO DAILY Magnesium Oxide 400 mg [Mag-Ox 400] 400 mg PO TID Losartan Potassium [Cozaar] 25 mg PO DAILY Levothyroxine Sodium [Unithroid] 375 mcg PO DAILY Calcium Carbonate/Vitamin D3 [Oysco 500-Vit D3 200 Tablet] 2 each PO DAILY Pravastatin Sodium 40 mg PO DAILY PANTOPRAZOLE 40 mg Tablet [Protonix 40MG Tablet] 40 mg PO QAM Pregabalin 50 mg [Lyrica 50MG] 50 mg PO TID Insulin Glargine [Lantus Insulin] 24 unit SQ DAILY Follow up with: DEBI RAMOS [Primary Care Provider] -
[2022-07-06] MEDS ORDERED: Furosemide 100mg/10 ml Vial IV SCH (14:00)
[2022-07-06] MEDS: Piperacillin/Tazobactam 2.25 GM 2.25 GM in Sodium Chloride 100ML MINI-BAG PLUS 100 ML IV SCH ×2 (14:09→21:14)
[2022-07-07] MEDS: Piperacillin/Tazobactam 2.25 GM 2.25 GM in Sodium Chloride 100ML MINI-BAG PLUS 100 ML IV SCH (06:08)
--- NOTE | 2022-07-07 08:19 | PCM.NOTE ---
Date and Time: 07/07/22815 Subjective Assessment: patient on avaps but conversant, denies any chest pain, feels a little short of breath, no palpitations. rate is in the 80's currently. she is hemodynamically stable Objective Exam General Appearance: no apparent distress Respiratory Exam: crackles/rales, No respiratory distress Cardiovascular Exam: regular rate/rhythm, normal heart sounds Gastrointestinal/Abdomen Exam: soft, No tenderness, No mass Extremity Exam: normal inspection, normal range of motion OBJECTIVE DATA Vital Signs: Vital Signs - 24 hr Temp Pulse Resp BP BP BP Pulse Ox 07/07/22 08:00 97.3 F 93 H 21 111/65 93 L 07/07/22 07:18 86 20 96 07/07/22 04:00 84 17 139/71 97 07/07/22 03:00 104 H 19 121/67 96 07/07/22 02:00 90 19 116/74 96 07/07/22 01:00 86 21 102/63 95 07/07/22 00:18 98 H 23 93 L 07/07/22 00:00 97.5 F 108 H 23 94/72 90 L 07/06/22 23:00 91 H 126/61 07/06/22 22:00 104 H 18 127/75 94 L 07/06/22 21:00 87 27 H 112/70 95 07/06/22 20:00 85 24 108/64 92 L 07/06/22 19:49 82 23 108/64 93 L 07/06/22 19:06 85 20 95 07/06/22 19:00 81 07/06/22 17:00 86 105/66 07/06/22 16:09 76 85/57 07/06/22 16:00 87 18 84/55 96 07/06/22 15:00 84 115/78 07/06/22 14:30 91 H 25 H 96 07/06/22 14:00 94 H 105/68 07/06/22 13:00 87 119/78 07/06/22 11:57 97.9 F 110 H 16 116/89 97 07/06/22 11:29 94 H 07/06/22 10:45 94 H 138/64 07/06/22 10:37 95 H 07/06/22 10:04 84 07/06/22 10:00 84 07/06/22 09:03 84 07/06/22 09:00 84 Pain Assessment - Last Documented Pain Intensity 0 Intake and Output: Intake & Output 07/04/22 07/05/22 07/06/22 07/07/22 11:59 11:59 11:59 11:59 Intake Total 40 460 Output Total 400 1600 1200 Balance -746 -8786 -611 Weight 79.6 kg 77.3 kg 78.9 kg Lab Results: Lab Results-Last 24 Hours 07/06/22 07/06/22 07/06/22 Range/Units 08:29 11:43 12:20 Puncture Site RIGHT RADIAL left rad pCO2 20 L* 25 L (35-45) mmHg pO2 155 H* 111 H (75-100) mmHg Base Excess -11.6 L -3.9 L (-2.0-2.0) O2 Saturation 97.5 97.1 (94-100) g/dF ABG pH 7.38 7.48 H (7.35-7.45) ABG HCO3 11.8 L* 18.6 L (22-28) ABG O2 Sat (Measured) 99.6 99.1 (95-100) % Jg Test YEs yes A-a Gradient 177 143 a/A Ratio 0.47 0.44 Hemoglobin 9.8 9.4 Carboxyhemoglobin 1.0 0.9 (0.0-6.9) % THgb Methemoglobin 1.1 L 1.1 L (1.4-1.5) % Potassium 4.2 3.7 (3.5-5.1) Temperature 37.0 37.0 C POC O2 Flow Rate 50 40 % Vent Mode bipap PEEP 8 cmH2O Pressure Support 16 POC Glucometer 356 H (74 to 106) mg/dL 07/06/22 07/06/22 07/07/22 Range/Units 16:38 20:59 07:44 Puncture Site pCO2 (35-45) mmHg pO2 (75-100) mmHg Base Excess (-2.0-2.0) O2 Saturation (94-100) g/dF ABG pH (7.35-7.45) ABG HCO3 (22-28) ABG O2 Sat (Measured) (95-100) % Jg Test A-a Gradient a/A Ratio Hemoglobin Carboxyhemoglobin (0.0-6.9) % THgb Methemoglobin (1.4-1.5) % Potassium (3.5-5.1) Temperature C POC O2 Flow Rate % Vent Mode PEEP cmH2O Pressure Support POC Glucometer 241 H 350 H 243 H (74 to 106) mg/dL Radiology Exams: Radiology Procedures Category Date Time Status CHEST 1 VIEW (PORTABLE) Routine Exams 07/07/22 08:13 Ordered CHEST 1 VIEW (PORTABLE) Stat Exams 07/05/22 08:26 Completed CHEST 1 VIEW (PORTABLE) Stat Exams 07/05/22 11:37 Completed ECHO W/2D AND DOPPLER [US] Routine Exams 07/07/22 Ordered Multi-Disciplinary Progress Notes: Multi-Disciplinary Progress Notes 07/06/22 13:47 Pharmacy Note by Carroll Ramirez Zosyn reduced to 2.25gm iv q8h per protocol. Creat 2.45, ext. crcl is 16ml/min. Initialized on 07/06/22 13:47 - END OF NOTE 07/06/22 10:46 Case Management Note by Angelita Ball WILL DEFER CASE MANAGEMENT ASSESS AT THIS TIME D/T PATIENT CRITICALLY ILL ON BIPAP Initialized on 07/06/22 10:46 - END OF NOTE 07/06/22 09:57 Respiratory Note by Madeline Lee consulted dr villegas and gave him the latest abg results. he requested to change to avaps of 550/18/40% and peep of 8. with abg in 2 hours Initialized on 07/06/22 09:57 - END OF NOTE Assessment/Plan (1) Atrial fibrillation with RVR Current Visit: Yes Status: Acute Assessment & Plan: cardiology recommends metoprolol but patient has severe allergy with propranolol, will give po cardizem and stop gtt. echo ordered, repeat chest xray this am Code(s): I48.91 - UNSPECIFIED ATRIAL FIBRILLATION (2) CHF (congestive heart failure) Current Visit: Yes Status: Acute Qualifiers: Heart failure chronicity: acute on chronic Assessment & Plan: mild crackles, mild volume overload. 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
--- NOTE | 2022-07-07 08:28 | PCM.DS ---
Discharge Summary Date of Admission: 07/06/22 03:10 Admitting Physician: MICHAEL DE LEON DO Consults: Consults on Case 07/06/22 08:55 Consult Cardiology ROUTINE Consult Pulmonology ROUTINE Primary Care Provider: EDBI RAMOS Allergies Allergies albuterol Allergy (Intermediate, Verified 07/05/22 08:13) Swelling of Tongue and Lips propranolol [From Inderal LA] Allergy (Intermediate, Verified 07/05/22 08:13) red face and ears clonazepam [From Klonopin] Allergy (Verified 07/05/22 08:13) Tightness of Throat tongue swollen metoclopramide [From Reglan] Allergy (Verified 07/05/22 08:13) propranolol HCl [From Inderal LA] Allergy (Verified 07/05/22 08:13) Swelling of Tongue and Lips red face and ears Sulfa (Sulfonamide Antibiotics) Allergy (Verified 07/05/22 08:13) Swelling of Tongue and Lips throat swell,ears red terfenadine Allergy (Verified 07/05/22 08:13) venom-honey bee [bee venom (honey bee)] Allergy (Verified 07/05/22 08:13) Hives large hives zanamivir [From Relenza Diskhaler] Allergy (Verified 07/05/22 08:13) Swelling of Tongue and Lips throat tightness cilostazol [From Pletal] Adverse Reaction (Severe, Verified 07/05/22 08:13) Swelling of Tongue and Lips ticagrelor [From Brilinta] Adverse Reaction (Severe, Verified 07/05/22 08:13) Swelling of Tongue and Lips Hospital Summary - Hospital Course Hospital Course: I spoke with Dr Derek grimes am from [facility] hospitalist, report given regarding a fib with rvr and chf, she is currently stable. she agrees to accept to [facility] ICU in transfer - Vitals & Intake/Output Vital Signs: Vital Signs Temperature 97.3 F 07/07/22 08:00 Pulse Rate 93 H 07/07/22 08:00 Respiratory Rate 21 07/07/22 08:00 Blood Pressure 111/65 07/07/22 08:00 O2 Sat by Pulse Oximetry 93 L 07/07/22 08:00 Intake & Output: Intake & Output 07/04/22 07/05/22 07/06/22 07/07/22 11:59 11:59 11:59 11:59 Intake Total 40 460 Output Total 400 1600 2370 Balance -747 -7471 -338 Weight 79.6 kg 77.3 kg 78.9 kg - Lab Result Diagrams: 07/06/22 04:40 07/06/22 04:40 Lab Results-Last 24 Hrs: Lab Results-Last 24 Hours 07/06/22 07/06/22 07/06/22 Range/Units 08:29 11:43 12:20 Puncture Site RIGHT RADIAL left rad pCO2 20 L* 25 L (35-45) mmHg pO2 155 H* 111 H (75-100) mmHg Base Excess -11.6 L -3.9 L (-2.0-2.0) O2 Saturation 97.5 97.1 (94-100) g/dF ABG pH 7.38 7.48 H (7.35-7.45) ABG HCO3 11.8 L* 18.6 L (22-28) ABG O2 Sat (Measured) 99.6 99.1 (95-100) % Jg Test YEs yes A-a Gradient 177 143 a/A Ratio 0.47 0.44 Hemoglobin 9.8 9.4 Carboxyhemoglobin 1.0 0.9 (0.0-6.9) % THgb Methemoglobin 1.1 L 1.1 L (1.4-1.5) % Potassium 4.2 3.7 (3.5-5.1) Temperature 37.0 37.0 C POC O2 Flow Rate 50 40 % Vent Mode bipap PEEP 8 cmH2O Pressure Support 16 POC Glucometer 356 H (74 to 106) mg/dL 07/06/22 07/06/22 07/07/22 Range/Units 16:38 20:59 07:44 Puncture Site pCO2 (35-45) mmHg pO2 (75-100) mmHg Base Excess (-2.0-2.0) O2 Saturation (94-100) g/dF ABG pH (7.35-7.45) ABG HCO3 (22-28) ABG O2 Sat (Measured) (95-100) % Jg Test A-a Gradient a/A Ratio Hemoglobin Carboxyhemoglobin (0.0-6.9) % THgb Methemoglobin (1.4-1.5) % Potassium (3.5-5.1) Temperature C POC O2 Flow Rate % Vent Mode PEEP cmH2O Pressure Support POC Glucometer 241 H 350 H 243 H (74 to 106) mg/dL Micro Results-Entire Visit: Microbiology 07/05/22 11:15 Urine Culture - Final Catherized NO GROWTH Accuchecks Date 07/07/22 Date 07/06/22 Date 07/06/22 Time 08:09 Time 16:41 Time 11:56 - Radiology Exams Ordered Rad Exams-Entire Visit: Radiology Procedures Category Date Time Status CHEST 1 VIEW (PORTABLE) Routine Exams 07/07/22 08:13 Taken CHEST 1 VIEW (PORTABLE) Stat Exams 07/05/22 08:26 Completed CHEST 1 VIEW (PORTABLE) Stat Exams 07/05/22 11:37 Completed ECHO W/2D AND DOPPLER [US] Routine Exams 07/07/22 Ordered - Procedures and Test Procedures and Tests throughout Hospitalization: Therapy Orders & Screens 07/05/22 12:08 BiPap/CPAP ROUTINE Comment: 07/05/22 22:21 Respiratory Therapy Assessment DAILY Comment: 07/06/22 03:18 EKG Q8HX2,QAMX3,PRN Comment: 07/06/22 03:43 Oxygen Nasal Cannula 6 lpm Comment: Diagnosis: SVT, CHF 07/06/22 05:00 EKG ROUTINE Comment: Diagnosis: SVT, CHF 07/07/22 05:00 EKG ROUTINE Comment: Diagnosis: SVT, CHF 07/08/22 05:00 EKG ROUTINE Comment: Diagnosis: SVT, CHF Discharge Exam General Appearance: mild distress Neurologic Exam: alert, cooperative Respiratory Exam: crackles/rales Cardiovascular Exam: regular rate/rhythm, normal heart sounds Gastrointestinal/Abdomen Exam: soft, No tenderness, No mass Extremity Exam: normal inspection, normal range of motion Skin Exam: normal color, warm, dry Final Diagnosis/Problem List - Final Discharge Diagnosis/Problem (1) Atrial fibrillation with RVR Current Visit: Yes Status: Acute Code(s): I48.91 - UNSPECIFIED ATRIAL FIBRILLATION (2) CHF (congestive heart failure) Current Visit: Yes Status: Acute Code(s): I50.9 - HEART FAILURE, UNSPECIFIED (3) Diabetes mellitus Current Visit: No Status: Chronic Code(s): E11.9 - TYPE 2 DIABETES MELLITUS WITHOUT COMPLICATIONS (4) Renal insufficiency Current Visit: No Status: Chronic - Discharge Disposition: DC TO [facility] Condition: Stable Prescriptions: No Action Spironolactone [Aldactone] 25 mg PO DAILY Diphenoxylate HCl/Atropine [Lomotil] 1 tab PO QID PRN PRN Reason: Diarrhea Montelukast Sodium 10 mg [Singulair 10 MG] 10 mg PO DAILY Clopidogrel Bisulfate [Clopidogrel] 75 mg PO DAILY Amlodipine Besylate [Norvasc] 10 mg PO DAILY Buspirone HCl 5 mg [Buspar 5 mg] 5 mg PO BID Famotidine 20 mg [Pepcid 20 MG] 20 mg PO BID PRN PRN Reason: Indigestion Cetirizine HCl [Zyrtec] 10 mg PO DAILY Magnesium Oxide 400 mg [Mag-Ox 400] 400 mg PO TID Losartan Potassium [Cozaar] 25 mg PO DAILY Levothyroxine Sodium [Unithroid] 375 mcg PO DAILY Calcium Carbonate/Vitamin D3 [Oysco 500-Vit D3 200 Tablet] 2 each PO DAILY Pravastatin Sodium 40 mg PO DAILY PANTOPRAZOLE 40 mg Tablet [Protonix 40MG Tablet] 40 mg PO QAM Pregabalin 50 mg [Lyrica 50MG] 50 mg PO TID Insulin Glargine [Lantus Insulin] 24 unit SQ DAILY Additional Instructions: Dr Reed accepting physician Follow up with: DEBI RAMOS [Primary Care Provider] -
--- NOTE | 2022-07-07 08:51 | XRAY ---
Indication: CHF. Comparison: July 05, 2022 Portable chest demonstrates worsening small right effusion/infiltrate/atelectasis. Remaining chest unchanged again demonstrating borderline cardiomegaly, central vascular congestion, and interstitial edema.
[2022-07-07] MEDS: HUMALOG SQ PRN ×2 (08:52→12:29)
[2022-07-07 08:58] LABS: Absolute Neutrophil Ct (ANC) 7.28 x10^3/uL (1.4-6.9); Basophil (Absolute #) 0.04 x10^3/uL (0-0.4); Eosinophil % 3.2 % (0.00-5.0); Eosinophil (Absolute #) 0.32 x10^3/uL (0-0.5); Hematocrit 30.1 % (35-47); Lymphocyte (Absolute #) 1.66 x10^3/uL (1.0-4.6); Lymphocytes % 16.6 % (24.0-44.0); Mean Corpuscular Hemoglobin 28.6 pg (26-32); Mean Corpuscular Hgb Concent. 33.2 g/dL (32-36); Mean Platelet Volume 11.8 fL (7.5-11.0); Neutrophil % 72.5 % (36.0-66.0); Platelet Count 384 x10^3/uL (150-450)
[2022-07-07 09:16] LABS: ANION GAP 17.2 MEQ/L (5-15); Creatinine 1 2.89 mg/dL (0.52-1.04); EST GLOMERULAR FILTRATION RATE 16.8 ML/MIN; Potassium 3.8 mmol/L (3.5-5.1)
[2022-07-07 09:18] LABS: Calcium 5.8 mg/dL (8.4-10.2)
[2022-07-07] MEDS: SYNTHROID 150 MCG PO SCH (09:31)
[2022-07-07] MEDS: Cozaar 50 MG PO SCH (09:31)
[2022-07-07] MEDS: NORVASC 5 MG PO SCH (09:32)
[2022-07-07] MEDS: BUSPAR 5 MG PO SCH (09:32)
[2022-07-07] MEDS: CLARITIN 10 MG PO SCH (09:32)
[2022-07-07] MEDS: Zocor 10MG PO SCH (09:32)
[2022-07-07] MEDS: MAG-OX 400 PO SCH (09:32)
[2022-07-07] MEDS: Aldactone 25 MG PO SCH (09:32)
[2022-07-07] MEDS: Singulair 10 MG PO SCH (09:32)
[2022-07-07] MEDS: Protonix 40MG Tablet PO SCH (09:32)
[2022-07-07] MEDS: Lyrica 50MG PO SCH (09:32)
[2022-07-07] MEDS: SYNTHROID 75 MCG PO SCH (09:32)
[2022-07-07] MEDS: Lantus Insulin SQ SCH (09:33)
[2022-07-07 09:52] LABS: Iron 25 ug/dL (37-170); Iron Saturation 8 % (20-39); TIBC 330 ug/dL (265-462)
[2022-07-07] MEDS ORDERED: Cardizem CD PO SCH (10:00)
[2022-07-07] MEDS ORDERED: ELIQUIS 2.5 MG TABLET PO SCH (10:00)
[2022-07-07] MEDS ORDERED: Lasix 40 MG/4 ML IV SCH (10:00)
[2022-07-07] MEDS ORDERED: Lopressor 50 MG PO SCH (10:00)
[2022-07-07 10:49] LABS: Ferritin 20.8 ng/mL (11.1-264); Folate (Folic Acid) 4.75 ng/mL (2.76 - >20)
[2022-07-07 10:50] LABS: Vitamin B12 > 1000 pg/mL (239-931)
[2022-07-07 12:12] VITALS: BP 114/78; PULSE 99; O2SAT 97
--- NOTE | 2022-07-07 14:15 | CONS ---
CONSULT DATE: 07/07/2022 HISTORY: Miss Estela Magana is a 77-year-old woman who has been hospitalized at [facility] with complaints of shortness of breath. The patient was noted to have cardiac tachyarrhythmia along with acute on chronic hypoxic respiratory failure. She was treated with noninvasive ventilation. I was contacted yesterday requesting a consult. Based on the patient's blood gases I recommended that she be treated with AVAPS mode and subsequently she showed normalization of pH. At the time of my evaluation today, the patient is comfortable. She is on oxygen via nasal cannula which she uses at home as well. She does report feeling well and denies chest pain, shortness of breath or any other acute symptoms. PAST MEDICAL HISTORY: Positive for history of atrial fibrillation, history of transcatheter aortic valve replacement, history of hypertension, dyslipidemia, diabetes mellitus, hypothyroidism, chronic kidney disease, anxiety and gastroesophageal reflux disease. PAST SURGICAL HISTORY: As above. PERSONAL AND SOCIAL HISTORY: She is a nonsmoker. MEDICATIONS: Medications are reviewed. ALLERGIES: ALLERGIES NOTED. PHYSICAL EXAMINATION: An elderly woman appears comfortable, able to carry out conversation. Vital signs noted. HEENT: Normocephalic. Oral exam limited. CVS: First and second heart sounds are normal, regular, rhythmic. The patient is in sinus rhythm. RESPIRATORY: Diminished breath sounds, occasional crackles are heard. ABDOMEN: Soft. EXTREMITIES: No significant edema is noted. LABORATORY DATA AND TESTS: Labs and x-rays reviewed. ASSESSMENT: This is a 77-year-old woman admitted with: 1) Acute on chronic hypoxic respiratory failure, acute component resolved. 2) Chronic acidemia metabolic, resolved. 3) History of tachyarrhythmia now in sinus rhythm. 4) Comorbidities listed above. RECOMMENDATIONS: 1) The patient is stable from pulmonary standpoint. 2) Continue supplemental oxygen which she uses at home. 3) The patient is being transferred to [facility] for cardiology evaluation and treatment as well as to follow up with me as needed.
== END 2022-07-07 13:35 | disposition home or self-care (01) ==
LOC: ED 08:02 → ICU 07-06 03:10
PROVIDERS: ADMIT Family Medicine; ATTEND Family Medicine
DX: I48.20 Chronic atrial fibrillation, unspecified (principal); E11.22 Type 2 diabetes mellitus with diabetic chronic kidney disease; I13.0 Hypertensive heart and chronic kidney disease with heart failure and stage 1 through stage 4 chronic kidney disease, or unspecified chronic kidney disease; N18.30 Chronic kidney disease, stage 3 unspecified; I50.9 Heart failure, unspecified; N28.9 Disorder of kidney and ureter, unspecified; J44.9 Chronic obstructive pulmonary disease, unspecified; Z85.3 Personal history of malignant neoplasm of breast; I47.1 Supraventricular tachycardia; R06.03 Acute respiratory distress; N17.9 Acute kidney failure, unspecified; J22 Unspecified acute lower respiratory infection; D72.829 Elevated white blood cell count, unspecified; D64.9 Anemia, unspecified; R77.8 Other specified abnormalities of plasma proteins; Z99.81 Dependence on supplemental oxygen; Z79.899 Other long term (current) drug therapy; Z20.828 Contact with and (suspected) exposure to other viral communicable diseases
CPT/HCPCS: 0241U; 36000; 36415; 36600; 51702; 71045; 80048; 80053; 80061; 81015; 82375; 82607; 82728; 82746; 82803; 82947; 83540; 83550; 83721; 83880; 84134; 84439; 84443; 84484; 85025; 85027; 87086; 93005; 93041; 93268; 93306; 94002; 94003; 94640; 94760; 96365; 96366; 96372; 96374; 96375; 99285; G0378; J0153; J0610; J1650; J1817; J1940; J2060; J2543; Q3014; A9270-GY

== ENCOUNTER 2022-07-16 18:13 | Emergency (ER) | payer MEDICARE ==
--- NOTE | 2022-07-16 18:42 | ERPHSYRPT ---
- History of Present Illness Time Seen by Provider: 07/16/22 18:30 Source: patient, EMS Exam Limitations: no limitations Physician History: This is a 77-year-old white female patient of Dr. Bob Lowe who was seen in our emergency department on 07/06/2022 and was diagnosed with SVT and CHF. Patient was accepted at [facility] in [facility] but there were no beds available so she was observed in our hospital on telemetry. On 07/07/2022 patient was discharged from our hospital and transferred to [facility] with a diagnosis of atrial fibrillation with RVR and CHF. Patient was discharged today from [facility] doing well and hemodynamically stable. Patient lives alone and was wanting to be evaluated to be admitted into an extended care [facility]. She had called an ambulance to bring the patient to our facility. EMS called [facility] and the patient was confused initially but now recalls that she was to call home health on the morning of 07/17/2022 to make arranges for home health care and possible admission to an extended care facility on an outpatient basis. She currently has no specific complaints. She does have a history of TIA, peripheral neuropathy, COPD, hypothyroidism and gastroesophageal reflux disease. We will evaluate her and perform medical screening exam. Timing/Duration: today Modifying Factors: Improves With: nothing Associated Symptoms: other (No specific complaints) Allergies/Adverse Reactions: albuterol Allergy (Intermediate, Verified 07/16/22 18:51) Swelling of Tongue and Lips propranolol [From Inderal LA] Allergy (Intermediate, Verified 07/16/22 18:51) red face and ears clonazepam [From Klonopin] Allergy (Verified 07/16/22 18:51) Tightness of Throat tongue swollen metoclopramide [From Reglan] Allergy (Verified 07/16/22 18:51) propranolol HCl [From Inderal LA] Allergy (Verified 07/16/22 18:51) Swelling of Tongue and Lips red face and ears Sulfa (Sulfonamide Antibiotics) Allergy (Verified 07/16/22 18:51) Swelling of Tongue and Lips throat swell,ears red terfenadine Allergy (Verified 07/16/22 18:51) venom-honey bee [bee venom (honey bee)] Allergy (Verified 07/16/22 18:51) Hives large hives zanamivir [From Relenza Diskhaler] Allergy (Verified 07/16/22 18:51) Swelling of Tongue and Lips throat tightness cilostazol [From Pletal] Adverse Reaction (Severe, Verified 07/16/22 18:51) Swelling of Tongue and Lips ticagrelor [From Brilinta] Adverse Reaction (Severe, Verified 07/16/22 18:51) Swelling of Tongue and Lips Home Medications: Montelukast Sodium 10 mg [Singulair 10 MG] 10 mg PO DAILY 01/20/18 [History] Buspirone HCl 5 mg [Buspar 5 mg] 5 mg PO BID 12/02/20 [History] Cetirizine HCl [Zyrtec] 10 mg PO DAILY 12/02/20 [History] Famotidine 20 mg [Pepcid 20 MG] 20 mg PO BID PRN 12/02/20 [History] Levothyroxine Sodium [Unithroid] 375 mcg PO DAILY 12/02/20 [History] Losartan Potassium [Cozaar] 25 mg PO DAILY 12/02/20 [History] Magnesium Oxide 400 mg [Mag-Ox 400] 800 mg PO TID 12/02/20 [History] Calcium Carbonate/Vitamin D3 [Oysco 500-Vit D3 200 Tablet] 1,500 mg PO BID 07/06/22 [History] Insulin Glargine [Lantus Insulin] 18 unit SQ QAM 07/06/22 [History] PANTOPRAZOLE 40 mg Tablet [Protonix 40MG Tablet] 40 mg PO BID 07/06/22 [History] Pravastatin Sodium 20 mg PO DAILY 07/06/22 [History] Pregabalin 50 mg [Lyrica 50MG] 50 mg PO TID 07/06/22 [History] Apixaban [Eliquis 5 mg Tablet] 5 mg PO BID 07/16/22 [History] Aspirin 81 gm Chew [Baby Aspirin 81 mg Chew] 81 mg PO DAILY 07/16/22 [History] Cilostazol 100 mg [Pletal 100 MG] 100 mg PO BID 07/16/22 [History] Cyanocobalamin (Vitamin B-12) [Vitamin B-12] 1,000 mcg PO DAILY 07/16/22 [History] Diltiazem HCl [Diltiazem 24Hr ER] 240 mg PO DAILY 07/16/22 [History] Furosemide 40 mg [Lasix 40 MG] 40 mg PO DAILY 07/16/22 [History] Insulin Aspart [Novolog] 0 unit SQ UD 07/16/22 [History] Lactobacillus Acidophilus [Acidophilus TABLET] 1 tab PO DAILY 07/16/22 [History] Metoprolol Tartrate 50 mg [Lopressor 50 MG] 50 mg PO BID 07/16/22 [History] Potassium Bicarbonate [K-Lyte ] 25 meq PO DAILY 07/16/22 [History] Symbicort 80mcg - 4.5mcg 2 inh PO BID 07/16/22 [History] calcitrioL 0.25 mcg PO DAILY 07/16/22 [History] Hx Tetanus, Diphtheria Vaccination/Date Given: Yes Hx Influenza Vaccination/Date Given: Yes Hx Pneumococcal Vaccination/Date Given: Yes Travel Risk - International Travel Have you traveled outside of the country in past 3 weeks: No - Coronavirus Screening Are you exhibiting any of the following symptoms?: No Close contact with a COVID-19 positive Pt in past 14-21 Days: No - Vaccine Status Have you recieved a Covid-19 vaccination: Yes Brush Hand: Moderna - Vaccination Dates Date of 2cond Vaccination (if applicable): 09/2020 Comment: boost 05/27/21 - Review of Systems Constitutional: No Symptoms Eyes: No Symptoms Ears, Nose, & Throat: No Symptoms Respiratory: No Symptoms Cardiac: No Symptoms Abdominal/Gastrointestinal: No Symptoms Genitourinary Symptoms: No Symptoms Musculoskeletal: No Symptoms Skin: No Symptoms Neurological: No Symptoms Psychological: No Symptoms Endocrine: No Symptoms Hematologic/Lymphatic: No Symptoms Immunological/Allergic: No Symptoms All Other Systems: Reviewed and Negative - Past Medical History Pertinent Past Medical History: Yes Neurological History: TIA, Peripheral Neuropathy ENT History: Other Cardiac History: Hypertension Respiratory History: COPD Endocrine Medical History: Diabetes Type I, Hypothyroidism Musculoskeletal History: No Pertinent History GI Medical History: Other, GERD History: No Pertinent History Psycho-Social History: Anxiety Female Reproductive Disorders: Breast Cancer Other Medical History: right eye retinal scratch November 2020 - Past Surgical History Past Surgical History: Yes Neuro Surgical History: No Pertinent History Cardiac: Other Respiratory: No Pertinent History Gastrointestinal: Hernia Repair Genitourinary: No Pertinent History Musculoskeletal: No Pertinent History Female Surgical History: Mastectomy, Lumpectomy Other Surgical History: left mastectomy 1993, right lumpectomy, right thyroid removed, left thyroid removed with goiter, pubic mass, left knee scope, valve replacement - Social History Smoking Status: Never smoker Exposure to second hand smoke: No Drug Use: none Patient Lives Alone: Yes - Nursing Vital Signs Nursing Vital Signs: Initial Vital Signs Temperature 99.0 F 07/16/22 18:26 Pulse Rate 79 07/16/22 18:26 Blood Pressure 150/60 07/16/22 18:26 O2 Sat by Pulse Oximetry 93 L 07/16/22 18:26 Pain Scale Pain Intensity 0 - Physical Exam General Appearance: no apparent distress, alert, anxiety Eye Exam: PERRL/EOMI, eyes nml inspection Ears, Nose, Throat Exam: normal ENT inspection, moist mucous membranes Neck Exam: normal inspection, non-tender, supple, full range of motion Respiratory Exam: normal breath sounds, lungs clear, airway intact, No chest tenderness, No respiratory distress Cardiovascular Exam: regular rate/rhythm, normal heart sounds, normal peripheral pulses Gastrointestinal/Abdomen Exam: soft, normal bowel sounds, No tenderness Pelvic Exam: not done Rectal Exam: not done Back Exam: normal inspection, normal range of motion, No CVA tenderness, No vertebral tenderness Extremity Exam: normal inspection, normal range of motion, pelvis stable Neurologic Exam: alert, oriented x 3, cooperative, animal skinner II-XII nml as tested, nor mal mood/affect, nml cerebellar function, nml station & gait, sensation nml Skin Exam: normal color, warm, dry Lymphatic Exam: No adenopathy SpO2 Interpretation: normal O2 Delivery: Room Air - Course Nursing assessment & vital signs reviewed: Yes Ordered Tests: Active Orders 24 hr Category Date Time Status IV Insertion STAT Care 07/16/22 18:28 Active Oxygen-ED Only Nasal Cannula 2 lpm Care 07/16/22 19:27 Active CBC W DIFF Stat Lab 07/16/22 18:48 Completed CMP Stat Lab 07/16/22 18:48 Completed CULTURE,URINE Stat Lab 07/16/22 18:46 Received UA W/RFX CULTURE Stat Lab 07/16/22 18:46 Completed Lab/Rad Data: Laboratory Result Diagrams 07/16/22 18:48 07/16/22 18:48 Laboratory Results 07/16/22 07/16/22 07/16/22 Range/Units 19:35 18:48 18:48 WBC 12.3 H (4.0-10.5) x10^3/uL RBC 3.34 L (4.1-5.4) x10^6/uL Hgb 9.3 L (12.0-16.0) g/dL Hct 29.1 L (35-47) % MCV 87.1 (78-100) fL MCH 27.8 (26-32) pg MCHC 32.0 (32-36) g/dL RDW 12.5 (11.5-14.0) % Plt Count 493 H (150-450) x10^3/uL MPV 12.3 H (7.5-11.0) fL Gran % 79.3 H (36.0-66.0) % Immature Gran % (Auto) 0.3 (0.00-0.4) % Nucleat RBC Rel Count 0.0 (0.00-0.1) % Eos # (Auto) 0.19 (0-0.5) x10^3/uL Immature Gran # (Auto) 0.04 H (0.00-0.03) x10^3u/L Absolute Lymphs (auto) 1.24 (1.0-4.6) x10^3/uL Absolute Monos (auto) 1.02 (0.0-1.3) x10^3/uL Absolute Nucleated RBC 0.00 (0.00-0.01) x10^3u/L Lymphocytes % 10.1 L (24.0-44.0) % Monocytes % 8.3 (0.0-12.0) % Eosinophils % 1.5 (0.00-5.0) % Basophils % 0.5 (0.0-0.4) % Absolute Granulocytes 9.71 H (1.4-6.9) x10^3/uL Basophils # 0.06 (0-0.4) x10^3/uL Sodium 136 L (137-145) mmol/L Potassium 4.2 (3.5-5.1) mmol/L Chloride 96 L (98-107) mmol/L Carbon Dioxide 29 (22-30) mmol/L Anion Gap 15.4 H (5-15) MEQ/L BUN 50 H (7-17) mg/dL Creatinine 1.68 H (0.52-1.04) mg/dL Estimated GFR 31.4 ML/MIN Glucose 294 H (74-106) mg/dL Calcium 6.4 L (8.4-10.2) mg/dL Total Bilirubin 0.60 (0.2-1.3) mg/dL AST 47 H (14-36) U/L ALT 28 (0-35) U/L Alkaline Phosphatase 135 H (38-126) U/L Serum Total Protein 8.0 (6.3-8.2) g/dL Albumin 4.2 (3.5-5.0) g/dL Urinalys Dipstick Clnc Urine Color (YELLOW) Urine Appearance (CLEAR) Urine pH (5-6) Ur Specific [place] (1.005-1.025) POC Urine Protein Conf (Negative) Urine Ketones (NEGATIVE) Urine Nitrite (NEGATIVE) Urine Bilirubin (NEGATIVE) Urine Urobilinogen (0-1) mg/dL Urine Leukocytes (NEGATIVE) Urine WBC (Auto) (0-5) /HPF Urine RBC (Auto) (0-2) /HPF U Hyaline Cast (Auto) (0-2) /LPF U Epithel Cells (Auto) (FEW) /HPF Urine Bacteria (Auto) (NEGATIVE) /HPF Urine RBC (0-5) Min/ul Ur Culture Indicated? Urine Glucose (NEGATIVE) mg/dL Influenza Type A Ag NEGATIVE (NEGATIVE) Influenza Type B Ag NEGATIVE (NEGATIVE) RSV (PCR) NEGATIVE (Negative) SARS-CoV-2 (PCR) NEGATIVE (NEGATIVE) 07/16/22 Range/Units 18:46 WBC (4.0-10.5) x10^3/uL RBC (4.1-5.4) x10^6/uL Hgb (12.0-16.0) g/dL Hct (35-47) % MCV (78-100) fL MCH (26-32) pg MCHC (32-36) g/dL RDW (11.5-14.0) % Plt Count (150-450) x10^3/uL MPV (7.5-11.0) fL Gran % (36.0-66.0) % Immature Gran % (Auto) (0.00-0.4) % Nucleat RBC Rel Count (0.00-0.1) % Eos # (Auto) (0-0.5) x10^3/uL Immature Gran # (Auto) (0.00-0.03) x10^3u/L Absolute Lymphs (auto) (1.0-4.6) x10^3/uL Absolute Monos (auto) (0.0-1.3) x10^3/uL Absolute Nucleated RBC (0.00-0.01) x10^3u/L Lymphocytes % (24.0-44.0) % Monocytes % (0.0-12.0) % Eosinophils % (0.00-5.0) % Basophils % (0.0-0.4) % Absolute Granulocytes (1.4-6.9) x10^3/uL Basophils # (0-0.4) x10^3/uL Sodium (137-145) mmol/L Potassium (3.5-5.1) mmol/L Chloride (98-107) mmol/L Carbon Dioxide (22-30) mmol/L Anion Gap (5-15) MEQ/L BUN (7-17) mg/dL Creatinine (0.52-1.04) mg/dL Estimated GFR ML/MIN Glucose (74-106) mg/dL Calcium (8.4-10.2) mg/dL Total Bilirubin (0.2-1.3) mg/dL AST (14-36) U/L ALT (0-35) U/L Alkaline Phosphatase (38-126) U/L Serum Total Protein (6.3-8.2) g/dL Albumin (3.5-5.0) g/dL Urinalys Dipstick Clnc MAIN LAB Urine Color YELLOW (YELLOW) Urine Appearance CLEAR (CLEAR) Urine pH 7.5 (5-6) Ur Specific [place] 1.020 (1.005-1.025) POC Urine Protein Conf 100 A (Negative) Urine Ketones NEGATIVE (NEGATIVE) Urine Nitrite NEGATIVE (NEGATIVE) Urine Bilirubin NEGATIVE (NEGATIVE) Urine Urobilinogen 0.2 (0-1) mg/dL Urine Leukocytes NEGATIVE (NEGATIVE) Urine WBC (Auto) NONE (0-5) /HPF Urine RBC (Auto) 51-100 A (0-2) /HPF U Hyaline Cast (Auto) 0-2 (0-2) /LPF U Epithel Cells (Auto) NONE (FEW) /HPF Urine Bacteria (Auto) NONE (NEGATIVE) /HPF Urine RBC MODERATE A (0-5) Min/ul Ur Culture Indicated? YES Urine Glucose NEGATIVE (NEGATIVE) mg/dL Influenza Type A Ag (NEGATIVE) Influenza Type B Ag (NEGATIVE) RSV (PCR) (Negative) SARS-CoV-2 (PCR) (NEGATIVE) - Departure Departure Disposition: Home Clinical Impression: Well adult health check Condition: Stable Critical Care Time: No Referrals: DEBI RAMOS [Primary Care Provider] - Follow up/PCP as directed Additional Instructions: Take all your medication as prescribed. Call the home health company first thing tomorrow morning and follow the recommendations.
[2022-07-16 18:50] LABS: Absolute Neutrophil Ct (ANC) 9.71 x10^3/uL (1.4-6.9); Basophil (Absolute #) 0.06 x10^3/uL (0-0.4); Eosinophil % 1.5 % (0.00-5.0); Eosinophil (Absolute #) 0.19 x10^3/uL (0-0.5); Hematocrit 29.1 % (35-47); Hemoglobin 9.3 g/dL (12.0-16.0); Lymphocyte (Absolute #) 1.24 x10^3/uL (1.0-4.6); Lymphocytes % 10.1 % (24.0-44.0); Mean Cell Volume 87.1 fL (78-100); Mean Corpuscular Hemoglobin 27.8 pg (26-32); Mean Platelet Volume 12.3 fL (7.5-11.0); Monocyte (Absolute #) 1.02 x10^3/uL (0.0-1.3); Monocytes % 8.3 % (0.0-12.0); Neutrophil % 79.3 % (36.0-66.0); Platelet Count 493 x10^3/uL (150-450); Red Blood Count 3.34 x10^6/uL (4.1-5.4); Red Cell Distribution Width 12.5 % (11.5-14.0); White Blood Count 12.3 x10^3/uL (4.0-10.5)
[2022-07-16 18:55] LABS: Appearance CLEAR (CLEAR); Bilirubin NEGATIVE (NEGATIVE); Dipstick done @ ? MAIN LAB; Glucose NEGATIVE (NEGATIVE); Ketones NEGATIVE (NEGATIVE); Nitrite NEGATIVE (NEGATIVE); Ph 7.5 (5-6); Protein,Urine Dip 100 (Negative); RBC MODERATE Ery/ul (0-5); Urobilinogen 0.2 mg/dL (0-1)
[2022-07-16 18:57] LABS: Hyaline Casts 0-2 /LPF (0-2); RBC 51-100 /HPF (0-2); Urine Cultured Indicated? YES
[2022-07-16 19:01] LABS: ALBUMIN 4.2 g/dL (3.5-5.0); ANION GAP 15.4 MEQ/L (5-15); BILIRUBIN,TOTAL 0.6 mg/dL (0.2-1.3); Calcium 6.4 mg/dL (8.4-10.2); Creatinine 1 1.68 mg/dL (0.52-1.04); EST GLOMERULAR FILTRATION RATE 31.4 ML/MIN; Potassium 4.2 mmol/L (3.5-5.1)
[2022-07-16 20:19] VITALS: BP 167/83; PULSE 79; O2SAT 97
[2022-07-16 20:20] LABS: INFLUENZA A NEGATIVE (NEGATIVE); INFLUENZA B NEGATIVE (NEGATIVE); RESPIRATORY SYNCTIAL VIRUS NEGATIVE (Negative); SARS-CoV-2 Xpert Express NEGATIVE (NEGATIVE)
== END 2022-07-16 20:40 | disposition home or self-care (01) ==
LOC: ED 18:13
DX: Z00.00 Encounter for general adult medical examination without abnormal findings (principal); J44.9 Chronic obstructive pulmonary disease, unspecified; E10.42 Type 1 diabetes mellitus with diabetic polyneuropathy; I10 Essential (primary) hypertension; Z79.4 Long term (current) use of insulin; Z79.01 Long term (current) use of anticoagulants; Z79.02 Long term (current) use of antithrombotics/antiplatelets; Z79.899 Other long term (current) drug therapy
CPT/HCPCS: 0241U; 36000; 36415; 80053; 81015; 85025; 87086; 99283

== ENCOUNTER 2022-07-18 16:15 | Emergency (ER) | payer MEDICARE ==
--- NOTE | 2022-07-18 16:42 | ERPHSYRPT ---
- History of Present Illness Source: patient, EMS Exam Limitations: other (Poor historian) Patient Subjective Stated Complaint: SOB Triage Nursing Assessment: Patient brought into ED per EMS and transferred to bed with assist of 3. Patient A+O x3. Patient's skin pink, warm and dry. Patient complains of SOB. EMS states when they arrived patient was panicked and stating she was SOB that her home health nurse had been there, but left without getting her water for her meds and helping her. EMS reports feces all over the floor in different places in home. Patient was recently admitted to [facility] and D/C home on Tuesday and has called EMS everyday since. EMS reports during a run to her home on Tuesday her oven was left on. EMS concerned about patient's safety. Patient denies pain or discomfort. Patient states she called EMS for help due to not being able to care for herself and she hadn't ate anything today and needed supper. Patient states she wants to go to skilled nursing for care because she can no longer take care of herself and doesn't feel safe at home. Physician History: 77 yo wf who was released from [facility] on 07/16 presents for the second time since discharge per EMS w dyspnea and failure to thrive. Pt/house covered w feces. She is 2L O2 dependent at home and arrived w Ram/leg bag. Pt states that she can not perform any of her ADL's. Pt developed nausea/vomiting in ER after originally denying it. She also denies chest pain/cough/fever/melena/hematochezia. Pt has diarrhea. Timing/Duration: other (2days) Activities at Onset: rest Severity of Dyspnea-Max: mild Severity of Dyspnea-Current: mild Possible Cause: occasional episodes Modifying Factors: Improves With: activity Associated Symptoms: denies symptoms Allergies/Adverse Reactions: albuterol Allergy (Intermediate, Verified 07/18/22 16:17) Swelling of Tongue and Lips propranolol [From Inderal LA] Allergy (Intermediate, Verified 07/18/22 16:17) red face and ears clonazepam [From Klonopin] Allergy (Verified 07/18/22 16:17) Tightness of Throat tongue swollen metoclopramide [From Reglan] Allergy (Verified 07/18/22 16:17) propranolol HCl [From Inderal LA] Allergy (Verified 07/18/22 16:17) Swelling of Tongue and Lips red face and ears Sulfa (Sulfonamide Antibiotics) Allergy (Verified 07/18/22 16:17) Swelling of Tongue and Lips throat swell,ears red terfenadine Allergy (Verified 07/18/22 16:17) venom-honey bee [bee venom (honey bee)] Allergy (Verified 07/18/22 16:17) Hives large hives zanamivir [From Relenza Diskhaler] Allergy (Verified 07/18/22 16:17) Swelling of Tongue and Lips throat tightness cilostazol [From Pletal] Adverse Reaction (Severe, Verified 07/18/22 16:17) Swelling of Tongue and Lips ticagrelor [From Brilinta] Adverse Reaction (Severe, Verified 07/18/22 16:17) Swelling of Tongue and Lips Home Medications: Montelukast Sodium 10 mg [Singulair 10 MG] 10 mg PO DAILY 01/20/18 [History] Buspirone HCl 5 mg [Buspar 5 mg] 5 mg PO BID 12/02/20 [History] Cetirizine HCl [Zyrtec] 10 mg PO DAILY 12/02/20 [History] Famotidine 20 mg [Pepcid 20 MG] 20 mg PO BID PRN 12/02/20 [History] Levothyroxine Sodium [Unithroid] 375 mcg PO DAILY 12/02/20 [History] Losartan Potassium [Cozaar] 25 mg PO DAILY 12/02/20 [History] Magnesium Oxide 400 mg [Mag-Ox 400] 800 mg PO TID 12/02/20 [History] Calcium Carbonate/Vitamin D3 [Oysco 500-Vit D3 200 Tablet] 1,500 mg PO BID 01/20 [History] Insulin Glargine [Lantus Insulin] 18 unit SQ QAM 07/06/22 [History] PANTOPRAZOLE 40 mg Tablet [Protonix 40MG Tablet] 40 mg PO BID 07/06/22 [History] Pravastatin Sodium 20 mg PO DAILY 07/06/22 [History] Pregabalin 50 mg [Lyrica 50MG] 50 mg PO TID 07/06/22 [History] Apixaban [Eliquis 5 mg Tablet] 5 mg PO BID 07/16/22 [History] Aspirin 81 gm Chew [Baby Aspirin 81 mg Chew] 81 mg PO DAILY 07/16/22 [History] Cilostazol 100 mg [Pletal 100 MG] 100 mg PO BID 07/16/22 [History] Cyanocobalamin (Vitamin B-12) [Vitamin B-12] 1,000 mcg PO DAILY 07/16/22 [His tory] Diltiazem HCl [Diltiazem 24Hr ER] 240 mg PO DAILY 07/16/22 [History] Furosemide 40 mg [Lasix 40 MG] 40 mg PO DAILY 07/16/22 [History] Insulin Aspart [Novolog] 0 unit SQ UD 07/16/22 [History] Lactobacillus Acidophilus [Acidophilus TABLET] 1 tab PO DAILY 07/16/22 [History] Metoprolol Tartrate 50 mg [Lopressor 50 MG] 50 mg PO BID 07/16/22 [History] Potassium Bicarbonate [K-Lyte ] 25 meq PO DAILY 07/16/22 [History] Symbicort 80mcg - 4.5mcg 2 inh PO BID 07/16/22 [History] calcitrioL 0.25 mcg PO DAILY 07/16/22 [History] Hx Tetanus, Diphtheria Vaccination/Date Given: Yes Hx Influenza Vaccination/Date Given: Yes Hx Pneumococcal Vaccination/Date Given: Yes Immunizations Up to Date: Yes Travel Risk - International Travel Have you traveled outside of the country in past 3 weeks: No - Coronavirus Screening Are you exhibiting any of the following symptoms?: No Close contact with a COVID-19 positive Pt in past 14-21 Days: No - Vaccine Status Have you recieved a Covid-19 vaccination: Yes 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 - Vaccination Dates Date of 2cond Vaccination (if applicable): 09/2020 Comment: boost 05/27/21 - Review of Systems Constitutional: No Symptoms, Fatigue, Lethargy, Malaise Eyes: No Symptoms Ears, Nose, & Throat: No Symptoms Respiratory: No Symptoms, Dyspnea, Dyspnea on Exertion (ARTE[place]A) Cardiac: No Symptoms Abdominal/Gastrointestinal: No Symptoms, Nausea, Vomiting, Diarrhea Genitourinary Symptoms: No Symptoms Musculoskeletal: No Symptoms Skin: No Symptoms Neurological: No Symptoms Psychological: No Symptoms Endocrine: No Symptoms Hematologic/Lymphatic: No Symptoms Immunological/Allergic: No Symptoms - Past Medical History Pertinent Past Medical History: Yes Neurological History: TIA, Peripheral Neuropathy ENT History: Other Cardiac History: Hypertension Respiratory History: COPD Endocrine Medical History: Diabetes Type I, Hypothyroidism Musculoskeletal History: No Pertinent History GI Medical History: Other, GERD History: No Pertinent History Psycho-Social History: Anxiety Female Reproductive Disorders: Breast Cancer Other Medical History: right eye retinal scratch November 2020 - Past Surgical History Past Surgical History: Yes Neuro Surgical History: No Pertinent History Cardiac: Other Respiratory: No Pertinent History Gastrointestinal: Hernia Repair Genitourinary: No Pertinent History Musculoskeletal: No Pertinent History Female Surgical History: Mastectomy, Lumpectomy Other Surgical History: left mastectomy 1993, right lumpectomy, right thyroid removed, left thyroid removed with goiter, pubic mass, left knee scope, valve replacement - Social History Smoking Status: Never smoker Exposure to second hand smoke: No Drug Use: none Patient Lives Alone: Yes - Nursing Vital Signs Nursing Vital Signs: Initial Vital Signs Temperature 98.5 F 07/18/22 16:20 Pulse Rate 81 07/18/22 16:20 Respiratory Rate 20 07/18/22 16:20 Blood Pressure 143/72 07/18/22 16:20 O2 Sat by Pulse Oximetry 100 07/18/22 16:20 Pain Scale Pain Intensity 0 Hypertensive - Physical Exam General Appearance: no apparent distress, anxiety Eye Exam: PERRL/EOMI, eyes nml inspection Ears, Nose, Throat Exam: hearing grossly normal, normal ENT inspection, normal pharynx Neck Exam: normal inspection, non-tender, supple, full range of motion, No Brudzinski, No Kernig's, No meningismus Respiratory Exam: crackles/rales (B bases, faint), other (Tachypneic) Cardiovascular/Chest Exam: normal heart sounds, regular rate/rhythm, normal peripheral pulses, No murmur Abdominal/Gastrointestinal Exam: soft, normal bowel sounds, No tenderness Extremity Exam: non-tender, normal range of motion Neurologic Exam: alert, oriented x 3, cooperative, cytogenetics technologist II-XII nml as tested, normal mood/affect Skin Exam: normal color, warm, dry Lymphatic Exam: No adenopathy SpO2 Interpretation: normal SpO2: 100 O2 Delivery: Nasal Cannula - Course Nursing assessment & vital signs reviewed: Yes EKG Interpreted by Me: RATE (NSR/Rate81/Prolonged QTc/Peaked Tw[place]/No acute ST segment changes) - Radiology Exams Chest X-ray Interpretation: Interpreted by me (R basilar effusion/infiltrate) - CT Exams Chest CT Interpretation: Tele-radiologist Report (B pleural effusions/B upper lobe bronchiolitis/AVR/CAD) Ordered Tests: Active Orders 24 hr Category Date Time Status EKG-ER Only STAT Care 07/18/22 16:31 Completed CHEST 1 VIEW (PORTABLE) Stat Exams 07/18/22 16:47 Completed CHEST WITHOUT CONTRAST [CT] Stat Exams 07/18/22 19:33 Ordered BLOOD CULTURE Stat Lab 07/18/22 20:17 Received BMP Stat Lab 07/18/22 20:17 Completed CBC W DIFF Stat Lab 07/18/22 17:30 Completed CMP Stat Lab 07/18/22 17:30 Completed CULTURE,URINE Stat Lab 07/18/22 17:27 Received Lactic Acid Stat Lab 07/18/22 16:31 Completed Lactic Acid Stat Lab 07/18/22 20:13 Completed Manual Differential NC Stat Lab 07/18/22 17:30 Completed NT PRO BNP Stat Lab 07/18/22 17:30 Completed PROTIME WITH INR Stat Lab 07/18/22 17:30 Completed PTT Stat Lab 07/18/22 17:30 Completed TROPONIN Q4H Lab 07/18/22 17:30 Completed TROPONIN Q4H Lab 07/18/22 20:17 Completed UA W/RFX CULTURE Stat Lab 07/18/22 17:27 Completed Respiratory Therapy Assessment DAILY RT 07/18/22 19:03 Completed Medication Summary Discontinued Medications Generic Name Dose Route Start Last Admin Trade Name Freq PRN Reason Stop Dose Admin Albuterol/Ipratropium 3 ml 07/18/22 18:37 07/18/22 19:00 Ipratropium/Albuterol Sulfate 3 Ml Ampul.Neb IH 07/18/22 18:38 3 ml STAT ONE Administration Albuterol/Ipratropium Confirm 07/18/22 18:59 Ipratropium/Albuterol Sulfate 3 Ml Ampul.Neb Administered 07/18/22 19:00 Dose 3 ml IH .STK-MED ONE Sodium Chloride 1,000 mls @ 999 mls/hr 07/18/22 18:34 07/18/22 19:43 Sodium Chloride 0.9% 1000 Ml IV 07/18/22 19:34 Infused .Q1H1M STA Infusion Sodium Chloride Confirm 07/18/22 18:37 Sodium Chloride 0.9% 1000 Ml Administered 07/18/22 18:38 Dose 1,000 mls @ ud .ROUTE .STK-MED ONE Sodium Chloride 1,000 mls @ 999 mls/hr 07/18/22 19:10 07/18/22 20:54 Sodium Chloride 0.9% 1000 Ml IV 07/18/22 20:10 Infused .Q1H1M STA Infusion Sodium Chloride Confirm 07/18/22 19:11 Sodium Chloride 0.9% 1000 Ml Administered 07/18/22 19:12 Dose 1,000 mls @ ud .ROUTE .STK-MED ONE Ceftriaxone Sodium/Dextrose 1 g in 50 mls @ 100 mls/hr 07/18/22 19:32 07/18/22 20:54 Rocephin 1 Gm-D5w 50 Ml Bag IV 07/18/22 20:01 Infused STAT STA Infusion Ceftriaxone Sodium/Dextrose Confirm 07/18/22 19:43 Rocephin 1 Gm-D5w 50 Ml Bag Administered 07/18/22 19:44 Dose 1 g in 50 mls @ ud IV .STK-MED ONE Sodium Chloride 1,000 mls @ 150 mls/hr 07/18/22 20:45 07/18/22 20:46 Sodium Chloride 0.9% 1000 Ml IV 08/17/22 20:44 150 mls/hr .Q6H40M RAMON Administration Insulin Human Regular 100 unit 100 mls @ 7.21 mls/hr 07/18/22 20:40 07/18/22 20:47 / Sodium Chloride IV 08/17/22 20:39 0.11 unit/kg/hr .[id number] PRN 8 mls/hr DKA/HYPERGLYCEMIA Administration Protocol 0.1 UNIT/KG/HR Sodium Chloride Confirm 07/18/22 20:43 Sodium Chloride 0.9% Administered 07/18/22 20:44 Dose 100 mls @ ud .ROUTE .STK-MED ONE Sodium Chloride 1,000 mls @ 999 mls/hr 07/18/22 20:53 07/18/22 21:25 Sodium Chloride 0.9% 1000 Ml IV 07/18/22 21:53 999 mls/hr .Q1H1M STA Administration Sodium Chloride Confirm 07/18/22 20:38 Sodium Chloride 0.9% 1000 Ml Administered 07/18/22 20:39 Dose 1,000 mls @ ud .ROUTE .STK-MED ONE Sodium Chloride Confirm 07/18/22 21:22 Sodium Chloride 0.9% 1000 Ml Administered 07/18/22 21:23 Dose 1,000 mls @ ud .ROUTE .STK-MED ONE Insulin Human Regular 10 unit 07/18/22 18:34 07/18/22 18:40 Insulin Regular, Human 1 Unit SQ 07/18/22 18:35 10 unit STAT ONE Administration Insulin Human Regular 10 unit 07/18/22 18:35 07/18/22 18:41 Insulin Regular, Human 1 Unit IV 07/18/22 18:36 10 unit STAT ONE Administration Insulin Human Regular Confirm 07/18/22 18:37 Insulin Regular, Human 1 Unit Administered 07/18/22 18:38 Dose 10 unit .ROUTE .STK-MED ONE Insulin Human Regular Confirm 07/18/22 18:39 Insulin Regular, Human 1 Unit Administered 07/18/22 18:40 Dose 10 unit .ROUTE .STK-MED ONE Insulin Human Regular Confirm 07/18/22 20:42 Insulin Regular, Human 1 Unit Administered 07/18/22 20:43 Dose 1 unit .ROUTE .STK-MED ONE Ondansetron HCl 4 mg 07/18/22 17:32 07/18/22 17:37 Ondansetron Hcl 4 Mg/2 Ml Vial IV 07/18/22 17:33 4 mg STAT ONE Administration Ondansetron HCl Confirm 07/18/22 17:35 Ondansetron Hcl 4 Mg/2 Ml Vial Administered 07/18/22 17:36 Dose 4 mg .ROUTE .STK-MED ONE Sodium Bicarbonate 50 meq 07/18/22 18:36 07/18/22 18:40 Sodium Bicarbonate 1 Meq/Ml 50ml Syringe IV 07/18/22 18:37 50 meq STAT ONE Administration Sodium Bicarbonate Confirm 07/18/22 18:39 Sodium Bicarbonate 1 Meq/Ml 50ml Syringe Administered 07/18/22 18:40 Dose 50 meq IV .STK-MED ONE Lab/Rad Data: Laboratory Result Diagrams 07/18/22 17:30 07/18/22 20:17 Laboratory Results 07/18/22 07/18/22 07/18/22 Range/Units 20:17 20:13 17:33 WBC (4.0-10.5) x10^3/uL RBC (4.1-5.4) x10^6/uL Hgb (12.0-16.0) g/dL Hct (35-47) % MCV (78-100) fL MCH (26-32) pg MCHC (32-36) g/dL RDW (11.5-14.0) % Plt Count (150-450) x10^3/uL MPV (7.5-11.0) fL PT (9.4-12.5) SECONDS INR (0.8-3.0) APTT (25.1-36.5) SECONDS Sodium 130 L (137-145) mmol/L Potassium 4.7 D (3.5-5.1) mmol/L Chloride 90 L (98-107) mmol/L Carbon Dioxide < 5 L* (22-30) mmol/L BUN 47 H (7-17) mg/dL Creatinine 2.57 H (0.52-1.04) mg/dL Estimated GFR 19.2 ML/MIN Glucose 882 H* (74-106) mg/dL Lactic Acid 4.2 H (0.4-2.0) Calcium 6.8 L (8.4-10.2) mg/dL Total Bilirubin (0.2-1.3) mg/dL AST (14-36) U/L ALT (0-35) U/L Alkaline Phosphatase (38-126) U/L Troponin I 0.103 H* (0.000-0.034) ng/mL NT-Pro-B Natriuret Pep (0-1800) pg/mL Serum Total Protein (6.3-8.2) g/dL Albumin (3.5-5.0) g/dL Urinalys Dipstick Clnc Urine Color (YELLOW) Urine Appearance (CLEAR) Urine pH (5-6) Ur Specific Pimento (1.005-1.025) POC Urine Protein Conf (Negative) Urine Ketones (NEGATIVE) Urine Nitrite (NEGATIVE) Urine Bilirubin (NEGATIVE) Urine Urobilinogen (0-1) mg/dL Urine Leukocytes (NEGATIVE) Urine WBC (Auto) (0-5) /HPF Urine RBC (Auto) (0-2) /HPF U Epithel Cells (Auto) (FEW) /HPF Urine Bacteria (Auto) (NEGATIVE) /HPF Urine RBC (0-5) Min/ul Urine Mucus (Auto) (NEGATIVE) /HPF Ur Culture Indicated? Urine Glucose (NEGATIVE) mg/dL Influenza Type A Ag NEGATIVE (NEGATIVE) Influenza Type B Ag NEGATIVE (NEGATIVE) RSV (PCR) NEGATIVE (Negative) SARS-CoV-2 (PCR) NEGATIVE (NEGATIVE) 07/18/22 07/18/22 07/18/22 Range/Units 17:30 17:30 17:30 WBC (4.0-10.5) x10^3/uL RBC (4.1-5.4) x10^6/uL Hgb (12.0-16.0) g/dL Hct (35-47) % MCV (78-100) fL MCH (26-32) pg MCHC (32-36) g/dL RDW (11.5-14.0) % Plt Count (150-450) x10^3/uL MPV (7.5-11.0) fL PT 12.4 (9.4-12.5) SECONDS INR 1.19 (0.8-3.0) APTT 34.2 (25.1-36.5) SECONDS Sodium 124 L D (137-145) mmol/L Potassium 6.6 H* D (3.5-5.1) mmol/L Chloride 84 L D (98-107) mmol/L Carbon Dioxide < 5 L* (22-30) mmol/L BUN 45 H (7-17) mg/dL Creatinine 2.20 H (0.52-1.04) mg/dL Estimated GFR 23.0 ML/MIN Glucose 1002 H* (74-106) mg/dL Lactic Acid (0.4-2.0) Calcium 7.5 L D (8.4-10.2) mg/dL Total Bilirubin 1.00 (0.2-1.3) mg/dL AST 28 (14-36) U/L ALT 24 (0-35) U/L Alkaline Phosphatase 161 H (38-126) U/L Troponin I 0.106 H* (0.000-0.034) ng/mL NT-Pro-B Natriuret Pep 3680 H (0-1800) pg/mL Serum Total Protein 7.1 (6.3-8.2) g/dL Albumin 4.2 (3.5-5.0) g/dL Urinalys Dipstick Clnc Urine Color (YELLOW) Urine Appearance (CLEAR) Urine pH (5-6) Ur Specific Pimento (1.005-1.025) POC Urine Protein Conf (Negative) Urine Ketones (NEGATIVE) Urine Nitrite (NEGATIVE) Urine Bilirubin (NEGATIVE) Urine Urobilinogen (0-1) mg/dL Urine Leukocytes (NEGATIVE) Urine WBC (Auto) (0-5) /HPF Urine RBC (Auto) (0-2) /HPF U Epithel Cells (Auto) (FEW) /HPF Urine Bacteria (Auto) (NEGATIVE) /HPF Urine RBC (0-5) Min/ul Urine Mucus (Auto) (NEGATIVE) /HPF Ur Culture Indicated? Urine Glucose (NEGATIVE) mg/dL Influenza Type A Ag (NEGATIVE) Influenza Type B Ag (NEGATIVE) RSV (PCR) (Negative) SARS-CoV-2 (PCR) (NEGATIVE) 07/18/22 07/18/22 07/18/22 Range/Units 17:30 17:27 16:31 WBC 26.7 H* (4.0-10.5) x10^3/uL RBC 3.20 L (4.1-5.4) x10^6/uL Hgb 9.0 L (12.0-16.0) g/dL Hct 31.6 L (35-47) % MCV 98.8 D (78-100) fL MCH 28.1 (26-32) pg MCHC 28.5 L (32-36) g/dL RDW 13.5 (11.5-14.0) % Plt Count 571 H (150-450) x10^3/uL MPV 13.6 H (7.5-11.0) fL PT (9.4-12.5) SECONDS INR (0.8-3.0) APTT (25.1-36.5) SECONDS Sodium (137-145) mmol/L Potassium (3.5-5.1) mmol/L Chloride (98-107) mmol/L Carbon Dioxide (22-30) mmol/L BUN (7-17) mg/dL Creatinine (0.52-1.04) mg/dL Estimated GFR ML/MIN Glucose (74-106) mg/dL Lactic Acid 3.9 H (0.4-2.0) Calcium (8.4-10.2) mg/dL Total Bilirubin (0.2-1.3) mg/dL AST (14-36) U/L ALT (0-35) U/L Alkaline Phosphatase (38-126) U/L Troponin I (0.000-0.034) ng/mL NT-Pro-B Natriuret Pep (0-1800) pg/mL Serum Total Protein (6.3-8.2) g/dL Albumin (3.5-5.0) g/dL Urinalys Dipstick Clnc MAIN LAB Urine Color YELLOW (YELLOW) Urine Appearance SLIGHTLY CLOUDY A (CLEAR) Urine pH 5.0 (5-6) Ur Specific Pimento 1.015 (1.005-1.025) POC Urine Protein Conf 100 A (Negative) Urine Ketones LARGE-80 A (NEGATIVE) Urine Nitrite NEGATIVE (NEGATIVE) Urine Bilirubin NEGATIVE (NEGATIVE) Urine Urobilinogen 0.2 (0-1) mg/dL Urine Leukocytes NEGATIVE (NEGATIVE) Urine WBC (Auto) 3-5 A (0-5) /HPF Urine RBC (Auto) >101 A (0-2) /HPF U Epithel Cells (Auto) RARE (FEW) /HPF Urine Bacteria (Auto) RARE (NEGATIVE) /HPF Urine RBC MODERATE A (0-5) Min/ul Urine Mucus (Auto) SLIGHT A (NEGATIVE) /HPF Ur Culture Indicated? YES Urine Glucose 500 A (NEGATIVE) mg/dL Influenza Type A Ag (NEGATIVE) Influenza Type B Ag (NEGATIVE) RSV (PCR) (Negative) SARS-CoV-2 (PCR) (NEGATIVE) - Progress Progress: improved Air Movement: good Progress Note: 07/18/22 20:47 1L NS bolus x2 10units sq InsulinR/10units IV InsulinR Blood cultures x2 1gm IV Rocephin 07/18/22 20:50 Hyperkalemia treated w 1amp NaHCO3 x1/Albuterol neb x1 07/18/22 21:[address] Weber at [facility] 07/18/22 21:06 Pt desires to be a full code Blood Culture(s) Obtained: Yes Antibiotics given: Yes Counseled pt/family regarding: lab results, diagnosis, rad results - Departure Departure Disposition: Transfer Clinical Impression: DKA, type 2, Sepsis, Renal failure, Hyperkalemia, Elevated troponin Condition: Stable Critical Care Time: Yes Critical Care Time(excluding separately billable procedures): Critical 105-134 mins Referrals: DEBI RAMOS [Primary Care Provider] - Follow up/PCP as directed
[2022-07-18] MEDS ORDERED: Zofran 4 MG/2 ML VIAL IV ONE (17:32)
[2022-07-18] MEDS ORDERED: Zofran 4 MG/2 ML VIAL ONE (17:35)
[2022-07-18 17:36] LABS: Hematocrit 31.6 % (35-47); Mean Cell Volume 98.8 fL (78-100); Mean Corpuscular Hemoglobin 28.1 pg (26-32); Mean Corpuscular Hgb Concent. 28.5 g/dL (32-36); Mean Platelet Volume 13.6 fL (7.5-11.0); Platelet Count 571 x10^3/uL (150-450); Red Cell Distribution Width 13.5 % (11.5-14.0)
[2022-07-18 17:51] LABS: INR 1.19 (0.8-3.0); PROTIME 12.4 SECONDS (9.4-12.5); PTT 34.2 SECONDS (25.1-36.5); White Blood Count 26.7 x10^3/uL (4.0-10.5)
[2022-07-18 17:57] LABS: ALBUMIN 4.2 g/dL (3.5-5.0); ALKALINE PHOSPHATASE 161 U/L (38-126); BLOOD UREA NITROGEN 45 mg/dL (7-17); CHLORIDE 84 mmol/L (98-107); Calcium 7.5 mg/dL (8.4-10.2); NT PRO BNP 3680 pg/mL (0-1800); SGOT/AST 28 U/L (14-36); SGPT/ALT 24 U/L (0-35); SODIUM 124 mmol/L (137-145); Total Protein 7.1 g/dL (6.3-8.2)
--- NOTE | 2022-07-18 18:01 | XRAY ---
Indication: Chest pain. Comparison: July 07, 2022 Portable chest demonstrates moderate clearing previous right base infiltrate/atelectasis/effusion with mild residual. New tiny left base effusion. Heart not enlarged again with prior cardiac valve replacement surgery. New electronic monitoring device overlies left lung base.
[2022-07-18 18:15] LABS: INFLUENZA A NEGATIVE (NEGATIVE); INFLUENZA B NEGATIVE (NEGATIVE); RESPIRATORY SYNCTIAL VIRUS NEGATIVE (Negative); SARS-CoV-2 Xpert Express NEGATIVE (NEGATIVE)
[2022-07-18 18:34] LABS: Glucose 1002 mg/dL (74-106)
[2022-07-18] MEDS ORDERED: HUMULIN R SQ ONE (18:34)
[2022-07-18] MEDS ORDERED: Sodium Chloride 0.9% 1000 ML 1,000 ML IV STA ×3 (18:34→20:53)
[2022-07-18 18:35] LABS: Carbon Dioxide < 5 mmol/L (22-30); Potassium 6.6 mmol/L (3.5-5.1)
[2022-07-18] MEDS ORDERED: HUMULIN R IV ONE (18:35)
[2022-07-18] MEDS ORDERED: SODIUM BICARBONATE 50 MEQ/50 ML ABBOJECT IV ONE ×2 (18:36→18:39)
[2022-07-18] MEDS ORDERED: DUONEB 0.5-3 MG/3 ml Neb IH ONE ×2 (18:37→18:59)
[2022-07-18] MEDS ORDERED: Sodium Chloride 0.9% 1000 ML 1,000 ML ONE ×4 (18:37→21:22)
[2022-07-18] MEDS ORDERED: HUMULIN R ONE ×3 (18:37→20:42)
[2022-07-18 19:26] LABS: Epithelial Cells RARE /HPF (FEW); Mucus SLIGHT /HPF (NEGATIVE)
[2022-07-18 19:27] LABS: Appearance SLIGHTLY CLOUDY (CLEAR); Bilirubin NEGATIVE (NEGATIVE); Dipstick done @ ? MAIN LAB; Glucose 500 mg/dL (NEGATIVE); Ketones LARGE-80 (NEGATIVE); Nitrite NEGATIVE (NEGATIVE); Protein,Urine Dip 100 (Negative); RBC MODERATE Ery/ul (0-5); Specific Gravity 1.015 (1.005-1.025); Urobilinogen 0.2 mg/dL (0-1)
[2022-07-18 19:28] LABS: Bacteria RARE /HPF (NEGATIVE); RBC >101 /HPF (0-2); Urine Cultured Indicated? YES
[2022-07-18] MEDS ORDERED: ROCEPHIN 1 Gm-D5w 50 ml Bag** 1 G/50 ML IVPB IV STA (19:32)
[2022-07-18] MEDS ORDERED: ROCEPHIN 1 Gm-D5w 50 ml Bag** 1 G/50 ML IVPB IV ONE (19:43)
[2022-07-18] MEDS ORDERED: HUMULIN R 100 UNIT in Sodium Chloride 0.9% 100 ML IV PRN (20:40)
[2022-07-18 20:42] LABS: BLOOD UREA NITROGEN 47 mg/dL (7-17); CHLORIDE 90 mmol/L (98-107); Calcium 6.8 mg/dL (8.4-10.2); Creatinine 1 2.57 mg/dL (0.52-1.04); EST GLOMERULAR FILTRATION RATE 19.2 ML/MIN; Potassium 4.7 mmol/L (3.5-5.1); SODIUM 130 mmol/L (137-145)
[2022-07-18] MEDS ORDERED: Sodium Chloride 0.9% 100 ML ONE (20:43)
[2022-07-18 20:44] LABS: Glucose 882 mg/dL (74-106)
[2022-07-18 20:45] LABS: Carbon Dioxide < 5 mmol/L (22-30); TROPONIN 0.103 ng/mL (0.000-0.034)
[2022-07-18] MEDS ORDERED: Sodium Chloride 0.9% 1000 ML 1,000 ML IV SCH (20:45)
[2022-07-18 20:47] VITALS: O2SAT 100
[2022-07-18 21:19] VITALS: BP 120/45; PULSE 81
[2022-07-18 23:18] LABS: Basophil 1 % (0.0-1.0); Burr Cells 1+; Hypochromia 1+; Lymphocytes 1 % (24-44); Monocyte 1 % (0.0-12.0); Platelet Estimate INCREASED (NORMAL); Poikilocytosis 1+; Total Cells Counted 100
--- NOTE | 2022-07-19 08:48 | XRAY ---
Indication: Chest pain and short of breath.. Multiple contiguous axial images obtained through the chest without contrast. Comparison: None There is mild diffuse respiration artifact degrading study. Minimal diffuse groundglass airspace disease, right lung greater than left. Small right and tiny left effusions. Heart is not enlarged with aortic valve replacement and scattered coronary calcifications. Aorta is moderately etcher sclerotic without aneurysm. Small right hilar calcified nodes. No pathologic mediastinal lymphadenopathy. Small hiatal hernia. Bony thorax intact with osteopenia and moderate degenerative changes throughout the spine. There has been left mastectomy. Limited upper abdomen demonstrates numerous tiny hepatic/splenic calcified granulomas and bilateral renal cysts, largest on the left measuring 6 cm. Impression: 1. Respiration artifact. 2. Minimal diffuse bilateral groundglass airspace disease and bilateral effusions. 3. Chronic findings including small hiatal hernia, bilateral renal cysts, arteriosclerotic disease, chronic bony findings, and old granulomatous disease. Comment: Preliminary interpretation made by [facility]. No critical discrepancy.
== END 2022-07-18 21:30 | disposition short-term general hospital (02) ==
LOC: ED 16:15
DX: E11.10 Type 2 diabetes mellitus with ketoacidosis without coma (principal); A41.9 Sepsis, unspecified organism; R65.20 Severe sepsis without septic shock; N17.9 Acute kidney failure, unspecified; E87.5 Hyperkalemia; R77.8 Other specified abnormalities of plasma proteins; R06.00 Dyspnea, unspecified; R11.2 Nausea with vomiting, unspecified; R19.7 Diarrhea, unspecified; I10 Essential (primary) hypertension; J44.9 Chronic obstructive pulmonary disease, unspecified; Z79.4 Long term (current) use of insulin; Z79.01 Long term (current) use of anticoagulants; Z79.899 Other long term (current) drug therapy; Z79.02 Long term (current) use of antithrombotics/antiplatelets; Z99.81 Dependence on supplemental oxygen; Z20.828 Contact with and (suspected) exposure to other viral communicable diseases
CPT/HCPCS: 0241U; 36000; 36415; 51702; 71045; 71250; 80048; 80053; 81015; 83605; 83880; 84484; 85025; 85610; 85730; 87040; 87086; 93005; 94640; 96365; 96372; 96374; 96375; 99285; 99291; 99292; J0696; J1815; J2405; A9270-GY

== ENCOUNTER 2022-08-31 08:42 | Observation (INO) | payer MEDICARE ==
--- NOTE | 2022-08-31 08:59 | ERPHSYRPT ---
- History of Present Illness Time Seen by Provider: 08/31/22 08:55 Source: EMS, [facility] records, old records Exam Limitations: clinical condition Physician History: This is a 77-year-old white female patient of Dr. Bob Lowe who was admitted recently to a local [facility] secondary to inability to perform her activities of daily living. She was admitted into that nursing facility after being evaluated at [facility] for shortness of breath and failure to thrive. Patient has extensive medical history including significant, oxygen dependent COPD, hypothyroidism, hyperlipidemia, hypertension, atrial fibrillation on Cardizem, metoprolol and Eliquis and has a history of breast cancer status post mastectomy. Patient is also diabetic. This morning, approximately 7 AM the patient was noted to have changed her mental status. Patient was not respon ding. Patient was not following commands. The emergency department was contacted by her approximately 8:05 AM and the patient did not arrive until approximately 8:45 AM. At the scene the patient's blood sugar initially was in the 130s and on arrival to the emergency department was 75. Patient went directly to the CT scanner and then to an emergency department bed where she was found to be conversant but with slurred speech. She had right-sided weakness. She denies pain. She states she normally walks without the aid of a walker. She states that she has some mild difficulty with swallowing. Again, she denies chest pain or abdominal pain. Additional history was obtained from the [facility] as well as from the [facility] records. Timing/Duration: today Severity: moderate Character of Deficits: new weakness (Right side) Deficits: cannot stand, cannot walk, falling (Paramedics report that the patient has been falling more frequently at the [facility]), decrease ability to stand , decrease ability to walk Baseline/Normal Cognition: alert oriented x 3 Current Cognition: alert oriented x 3 Baseline Gait: walks w/o assistance Associated Symptoms: paresthesia, slurred speech, trouble walking Allergies/Adverse Reactions: albuterol Allergy (Intermediate, Verified 07/18/22 16:17) Swelling of Tongue and Lips propranolol [From Inderal LA] Allergy (Intermediate, Verified 07/18/22 16:17) red face and ears clonazepam [From Klonopin] Allergy (Verified 07/18/22 16:17) Tightness of Throat tongue swollen metoclopramide [From Reglan] Allergy (Verified 07/18/22 16:17) propranolol HCl [From Inderal LA] Allergy (Verified 07/18/22 16:17) Swelling of Tongue and Lips red face and ears Sulfa (Sulfonamide Antibiotics) Allergy (Verified 07/18/22 16:17) Swelling of Tongue and Lips throat swell,ears red terfenadine Allergy (Verified 07/18/22 16:17) venom-honey bee [bee venom (honey bee)] Allergy (Verified 07/18/22 16:17) Hives large hives zanamivir [From Relenza Diskhaler] Allergy (Verified 07/18/22 16:17) Swelling of Tongue and Lips throat tightness cilostazol [From Pletal] Adverse Reaction (Severe, Verified 07/18/22 16:17) Swelling of Tongue and Lips ticagrelor [From Brilinta] Adverse Reaction (Severe, Verified 07/18/22 16:17) Swelling of Tongue and Lips Home Medications: Montelukast Sodium 10 mg [Singulair 10 MG] 10 mg PO DAILY 01/20/18 [History] Buspirone HCl 5 mg [Buspar 5 mg] 5 mg PO BID 12/02/20 [History] Cetirizine HCl [Zyrtec] 10 mg PO DAILY 12/02/20 [History] Famotidine 20 mg [Pepcid 20 MG] 20 mg PO BID PRN 12/02/20 [History] Levothyroxine Sodium [Unithroid] 375 mcg PO DAILY 12/02/20 [History] Losartan Potassium [Cozaar] 25 mg PO DAILY 12/02/20 [History] Magnesium Oxide 400 mg [Mag-Ox 400] 800 mg PO TID 12/02/20 [History] Calcium Carbonate/Vitamin D3 [[place] 500-Vit D3 200 Tablet] 1,500 mg PO BID 07/06/22 [History] Insulin Glargine [Lantus Insulin] 18 unit SQ QAM 07/06/22 [History] PANTOPRAZOLE 40 mg Tablet [Protonix 40MG Tablet] 40 mg PO BID 07/06/22 [History] Pravastatin Sodium 20 mg PO DAILY 07/06/22 [History] Pregabalin 50 mg [Lyrica 50MG] 50 mg PO TID 07/06/22 [History] Apixaban [Eliquis 5 mg Tablet] 5 mg PO BID 07/16/22 [History] Aspirin 81 gm Chew [Baby Aspirin 81 mg Chew] 81 mg PO DAILY 07/16/22 [History] Cilostazol 100 mg [Pletal 100 MG] 100 mg PO BID 07/16/22 [History] Cyanocobalamin (Vitamin B-12) [Vitamin B-12] 1,000 mcg PO DAILY 07/16/22 [History] Diltiazem HCl [Diltiazem 24Hr ER] 240 mg PO DAILY 07/16/22 [History] Furosemide 40 mg [Lasix 40 MG] 40 mg PO DAILY 07/16/22 [History] Insulin Aspart [Novolog] 0 unit SQ UD 07/16/22 [History] Lactobacillus Acidophilus [Acidophilus TABLET] 1 tab PO DAILY 07/16/22 [History] Metoprolol Tartrate 50 mg [Lopressor 50 MG] 50 mg PO BID 07/16/22 [History] Potassium Bicarbonate [K-Lyte ] 25 meq PO DAILY 07/16/22 [History] Symbicort 80mcg - 4.5mcg 2 inh PO BID 07/16/22 [History] calcitrioL 0.25 mcg PO DAILY 07/16/22 [History] Hx Tetanus, Diphtheria Vaccination/Date Given: Yes Hx Influenza Vaccination/Date Given: Yes Hx Pneumococcal Vaccination/Date Given: Yes Travel Risk - International Travel Have you traveled outside of the country in past 3 weeks: No - Coronavirus Screening Are you exhibiting any of the following symptoms?: No Close contact with a COVID-19 positive Pt in past 14-21 Days: No - Vaccine Status Have you recieved a Covid-19 vaccination: Yes [employer]: Moderna - Vaccination Dates Date of 2cond Vaccination (if applicable): 09/2020 Comment: boost 05/27/21 - Review of Systems Constitutional: Weakness Eyes: No Symptoms Ears, Nose, & Throat: No Symptoms Respiratory: No Symptoms Cardiac: No Symptoms Abdominal/Gastrointestinal: No Symptoms Genitourinary Symptoms: No Symptoms Musculoskeletal: No Symptoms Skin: No Symptoms Neurological: Gait Changes, Parasthesia, Speech Changes Psychological: No Symptoms Endocrine: No Symptoms Hematologic/Lymphatic: No Symptoms Immunological/Allergic: No Symptoms All Other Systems: Reviewed and Negative - Past Medical History Pertinent Past Medical History: Yes Neurological History: TIA, Peripheral Neuropathy ENT History: Other Cardiac History: Hypertension Respiratory History: COPD Endocrine Medical History: Diabetes Type I, Hypothyroidism Musculoskeletal History: No Pertinent History GI Medical History: Other, GERD History: No Pertinent History Psycho-Social History: Anxiety Female Reproductive Disorders: Breast Cancer Other Medical History: right eye retinal scratch November 2020 - Past Surgical History Past Surgical History: Yes Neuro Surgical History: No Pertinent History Cardiac: Other Respiratory: No Pertinent History Gastrointestinal: Hernia Repair Genitourinary: No Pertinent History Musculoskeletal: No Pertinent History Female Surgical History: Mastectomy, Lumpectomy Other Surgical History: left mastectomy 1993, right lumpectomy, right thyroid removed, left thyroid removed with goiter, pubic mass, left knee scope, valve replacement - Social History Smoking Status: Never smoker Exposure to second hand smoke: No Drug Use: none Patient Lives Alone: Yes - Nursing Vital Signs Nursing Vital Signs: Initial Vital Signs Temperature 99.8 F 08/31/22 08:51 Pulse Rate 102 H 08/31/22 08:51 Respiratory Rate 24 08/31/22 08:51 Blood Pressure 198/99 08/31/22 08:51 O2 Sat by Pulse Oximetry 97 08/31/22 08:51 Pain Scale Pain Intensity 0 - [place] Coma Scale Best Eye Response (Jeanie): (4) open spontaneously Best Verbal Response (Jeanie): (5) oriented Best Motor Response ([place]): (6) obeys commands Jeanie Total: 15 - Physical Exam General Appearance: no apparent distress, alert, anxiety, obese Eye Exam: bilateral eye: normal inspection, PERRL, EOMI Ears, Nose, Throat Exam: normal ENT inspection, moist mucous membranes Neck Exam: normal inspection, non-tender, supple, full range of motion Respiratory: normal breath sounds, lungs clear, airway intact, No chest tendern ess, No respiratory distress Cardiovascular: irregular Gastrointestinal: soft, normal bowel sounds, No tenderness Pelvic Exam: not done Rectal Exam: not done Back Exam: normal inspection, normal range of motion, No CVA tenderness Extremity Exam: normal inspection, normal range of motion, pelvis stable Mental Status: alert, oriented x 3, 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 Exam: normal hearing, PERRL, tongue midline, No facial droop Motor/Sensory: no sensory deficit, no pronator drift Skin Exam: normal color, warm, dry SpO2 Interpretation: normal O2 Delivery: Room Air - Course Nursing assessment & vital signs reviewed: Yes EKG Interpreted by Me: RATE (101), A-fib, NORMAL AXIS, NORMAL INTERVALS, NORMAL ST-T, Other Ordered Tests: Active Orders 24 hr Category Date Time Status Fund Accountant STAT Care 08/31/22 09:04 Active Catheter-[place] Ram STAT Care 08/31/22 09:03 Active EKG-ER Only STAT Care 08/31/22 09:03 Active IV Insertion STAT Care 08/31/22 09:03 Active NPO (ED) STAT Care 08/31/22 09:03 Active POCT Glucose Check STAT Care 08/31/22 09:03 Active Pulse Oximetry (ED) STAT Care 08/31/22 09:03 Active HEAD WITHOUT CONTRAST [CT] Stat Exams 08/31/22 08:48 Completed MRA NECK WITH CONTRAST [MRI] Stat Exams 08/31/22 11:08 Ordered MRI BRAIN W & W/O CONTRAST [MRI] Stat Exams 08/31/22 11:08 Ordered CBC W DIFF Stat Lab 08/31/22 09:03 Completed CMP Stat Lab 08/31/22 09:15 Completed Lactic Acid Stat Lab 08/31/22 09:25 Completed NT PRO BNP Stat Lab 08/31/22 09:15 Completed PROTIME WITH INR Stat Lab 08/31/22 09:03 Completed T4 (Thyroxine) Stat Lab 08/31/22 09:15 Results TROPONIN Q4H Lab 08/31/22 09:15 Completed TROPONIN Q4H Lab 08/31/22 13:15 Ordered TROPONIN Q4H Lab 08/31/22 17:15 Ordered TSH, 3RD Generation Stat Lab 08/31/22 09:15 Results UA W/RFX UR CULTURE Stat Lab 08/31/22 09:32 Completed Transfer Order Routine Transfer 08/31/22 Ordered Medication Summary Generic Name Dose Route Start Last Admin Trade Name Freq PRN Reason Stop Dose Admin Sodium Chloride 1,000 mls @ 100 mls/hr 08/31/22 09:15 08/31/22 09:20 Sodium Chloride 0.9% 1000 Ml IV 09/30/22 09:14 100 mls/hr .Q10H RAMON Administration Discontinued Medications Generic Name Dose Route Start Last Admin Trade Name Pavel PRN Reason Stop Dose Admin Diltiazem HCl 10 mg 08/31/22 09:18 08/31/22 09:29 Diltiazem Hcl Iv 5 Mg/Ml Vial IV 08/31/22 09:19 10 mg STAT ONE Administration Diltiazem HCl Confirm 08/31/22 09:26 Diltiazem Hcl Iv 5 Mg/Ml Vial Administered 08/31/22 09:27 Dose 50 mg IV .STK-MED ONE Metoprolol Tartrate 2.5 mg 08/31/22 09:18 08/31/22 09:28 Metoprolol Tartrate 5 Mg/5 Ml Vial IV 08/31/22 09:19 2.5 mg STAT ONE Administration Metoprolol Tartrate Confirm 08/31/22 09:26 Metoprolol Tartrate 5 Mg/5 Ml Vial Administered 08/31/22 09:27 Dose 5 mg IV .STK-MED ONE Lab/Rad Data: Laboratory Result Diagrams 08/31/22 09:03 08/31/22 09:15 Laboratory Results 08/31/22 08/31/22 08/31/22 Range/Units Unknown 09:32 09:25 WBC (4.0-10.5) x10^3/uL RBC (4.1-5.4) x10^6/uL Hgb (12.0-16.0) g/dL Hct (35-47) % MCV (78-100) fL MCH (26-32) pg MCHC (32-36) g/dL RDW (11.5-14.0) % Plt Count (150-450) x10^3/uL MPV (7.5-11.0) fL Gran % (36.0-66.0) % Immature Gran % (Auto) (0.00-0.4) % Nucleat RBC Rel Count (0.00-0.1) % Eos # (Auto) (0-0.5) x10^3/uL Immature Gran # (Auto) (0.00-0.03) x10^3u/L Absolute Lymphs (auto) (1.0-4.6) x10^3/uL Absolute Monos (auto) (0.0-1.3) x10^3/uL Absolute Nucleated RBC (0.00-0.01) x10^3u/L Lymphocytes % (24.0-44.0) % Monocytes % (0.0-12.0) % Eosinophils % (0.00-5.0) % Basophils % (0.0-0.4) % Absolute Granulocytes (1.4-6.9) x10^3/uL Basophils # (0-0.4) x10^3/uL PT (9.4-12.5) SECONDS INR (0.8-3.0) Sodium (137-145) mmol/L Potassium (3.5-5.1) mmol/L Chloride (98-107) mmol/L Carbon Dioxide (22-30) mmol/L Anion Gap (5-15) MEQ/L BUN (7-17) mg/dL Creatinine (0.52-1.04) mg/dL Estimated GFR ML/MIN Glucose (74-106) mg/dL Lactic Acid 1.0 (0.4-2.0) Calcium (8.4-10.2) mg/dL Total Bilirubin (0.2-1.3) mg/dL AST (14-36) U/L ALT (0-35) U/L Alkaline Phosphatase (38-126) U/L Ammonia (9-30) umol/L Troponin I (0.000-0.034) ng/mL NT-Pro-B Natriuret Pep (0-1800) pg/mL Serum Total Protein (6.3-8.2) g/dL Albumin (3.5-5.0) g/dL Thyroxine (T4) (5.53-10.96) ug/dL TSH 3rd Generation Urine Color Yellow (Yellow) Urine Appearance Clear (Clear) Urine pH 7.5 (4.6-8.0) Ur Specific [place] <=1.005 (1.005-1.030) Urine Protein 30 (Negative) Urine Glucose (UA) Negative (Negative) mg/dL Urine Ketones Negative (Negative) Urine Blood Negative (Negative) Urine Nitrite Negative (Negative) Urine Bilirubin Negative (Negative) Urine Urobilinogen 0.2 (0.2) mg/dL Ur Leukocyte Esterase Trace A (Negative) U Hyaline Cast (Auto) NONE SEEN (0-2) /LPF Urine Microscopic RBC 0-2 (0-5) /HPF Urine Microscopic WBC 3-5 (0-5) /HPF Ur Epithelial Cells None Seen (None Seen) /HPF Urine Bacteria None Seen (None Seen) /HPF Urine Culture Reflexed NO (NO) Influenza Type A Ag NEGATIVE (NEGATIVE) Influenza Type B Ag NEGATIVE (NEGATIVE) RSV (PCR) NEGATIVE (Negative) SARS-CoV-2 (PCR) NEGATIVE (NEGATIVE) 08/31/22 08/31/22 08/31/22 Range/Units 09:15 09:15 09:15 WBC (4.0-10.5) x10^3/uL RBC (4.1-5.4) x10^6/uL Hgb (12.0-16.0) g/dL Hct (35-47) % MCV (78-100) fL MCH (26-32) pg MCHC (32-36) g/dL RDW (11.5-14.0) % Plt Count (150-450) x10^3/uL MPV (7.5-11.0) fL Gran % (36.0-66.0) % Immature Gran % (Auto) (0.00-0.4) % Nucleat RBC Rel Count (0.00-0.1) % Eos # (Auto) (0-0.5) x10^3/uL Immature Gran # (Auto) (0.00-0.03) x10^3u/L Absolute Lymphs (auto) (1.0-4.6) x10^3/uL Absolute Monos (auto) (0.0-1.3) x10^3/uL Absolute Nucleated RBC (0.00-0.01) x10^3u/L Lymphocytes % (24.0-44.0) % Monocytes % (0.0-12.0) % Eosinophils % (0.00-5.0) % Basophils % (0.0-0.4) % Absolute Granulocytes (1.4-6.9) x10^3/uL Basophils # (0-0.4) x10^3/uL PT (9.4-12.5) SECONDS INR (0.8-3.0) Sodium 141 (137-145) mmol/L Potassium 4.1 (3.5-5.1) mmol/L Chloride 104 (98-107) mmol/L Carbon Dioxide 28 (22-30) mmol/L Anion Gap 12.3 (5-15) MEQ/L BUN 35 H (7-17) mg/dL Creatinine 1.62 H (0.52-1.04) mg/dL Estimated GFR 32.7 ML/MIN Glucose 89 (74-106) mg/dL Lactic Acid (0.4-2.0) Calcium 8.4 (8.4-10.2) mg/dL Total Bilirubin 0.50 (0.2-1.3) mg/dL AST 30 (14-36) U/L ALT 19 (0-35) U/L Alkaline Phosphatase 104 (38-126) U/L Ammonia < 9 L (9-30) umol/L Troponin I 0.018 (0.000-0.034) ng/mL NT-Pro-B Natriuret Pep 1290 (0-1800) pg/mL Serum Total Protein 7.5 (6.3-8.2) g/dL Albumin 4.2 (3.5-5.0) g/dL Thyroxine (T4) 19.9 H (5.53-10.96) ug/dL TSH 3rd Generation Pending Urine Color (Yellow) Urine Appearance (Clear) Urine pH (4.6-8.0) Ur Specific [place] (1.005-1.030) Urine Protein (Negative) Urine Glucose (UA) (Negative) mg/dL Urine Ketones (Negative) Urine Blood (Negative) Urine Nitrite (Negative) Urine Bilirubin (Negative) Urine Urobilinogen (0.2) mg/dL Ur Leukocyte Esterase (Negative) U Hyaline Cast (Auto) (0-2) /LPF Urine Microscopic RBC (0-5) /HPF Urine Microscopic WBC (0-5) /HPF Ur Epithelial Cells (None Seen) /HPF Urine Bacteria (None Seen) /HPF Urine Culture Reflexed (NO) Influenza Type A Ag (NEGATIVE) Influenza Type B Ag (NEGATIVE) RSV (PCR) (Negative) SARS-CoV-2 (PCR) (NEGATIVE) 08/31/22 08/31/22 Range/Units 09:03 09:03 WBC 8.0 (4.0-10.5) x10^3/uL RBC 3.25 L (4.1-5.4) x10^6/uL Hgb 9.4 L (12.0-16.0) g/dL Hct 29.3 L (35-47) % MCV 90.2 (78-100) fL MCH 28.9 (26-32) pg MCHC 32.1 (32-36) g/dL RDW 14.8 H (11.5-14.0) % Plt Count 318 (150-450) x10^3/uL MPV 12.1 H (7.5-11.0) fL Gran % 71.5 H (36.0-66.0) % Immature Gran % (Auto) 0.2 (0.00-0.4) % Nucleat RBC Rel Count 0.0 (0.00-0.1) % Eos # (Auto) 0.27 (0-0.5) x10^3/uL Immature Gran # (Auto) 0.02 (0.00-0.03) x10^3u/L Absolute Lymphs (auto) 1.27 (1.0-4.6) x10^3/uL Absolute Monos (auto) 0.70 (0.0-1.3) x10^3/uL Absolute Nucleated RBC 0.00 (0.00-0.01) x10^3u/L Lymphocytes % 15.8 L (24.0-44.0) % Monocytes % 8.7 (0.0-12.0) % Eosinophils % 3.4 (0.00-5.0) % Basophils % 0.4 (0.0-0.4) % Absolute Granulocytes 5.73 (1.4-6.9) x10^3/uL Basophils # 0.03 (0-0.4) x10^3/uL PT 10.8 (9.4-12.5) SECONDS INR 1.02 (0.8-3.0) Sodium (137-145) mmol/L Potassium (3.5-5.1) mmol/L Chloride (98-107) mmol/L Carbon Dioxide (22-30) mmol/L Anion Gap (5-15) MEQ/L BUN (7-17) mg/dL Creatinine (0.52-1.04) mg/dL Estimated GFR ML/MIN Glucose (74-106) mg/dL Lactic Acid (0.4-2.0) Calcium (8.4-10.2) mg/dL Total Bilirubin (0.2-1.3) mg/dL AST (14-36) U/L ALT (0-35) U/L Alkaline Phosphatase (38-126) U/L Ammonia (9-30) umol/L Troponin I (0.000-0.034) ng/mL NT-Pro-B Natriuret Pep (0-1800) pg/mL Serum Total Protein (6.3-8.2) g/dL Albumin (3.5-5.0) g/dL Thyroxine (T4) (5.53-10.96) ug/dL TSH 3rd Generation Urine Color (Yellow) Urine Appearance (Clear) Urine pH (4.6-8.0) Ur Specific [place] (1.005-1.030) Urine Protein (Negative) Urine Glucose (UA) (Negative) mg/dL Urine Ketones (Negative) Urine Blood (Negative) Urine Nitrite (Negative) Urine Bilirubin (Negative) Urine Urobilinogen (0.2) mg/dL Ur Leukocyte Esterase (Negative) U Hyaline Cast (Auto) (0-2) /LPF Urine Microscopic RBC (0-5) /HPF Urine Microscopic WBC (0-5) /HPF Ur Epithelial Cells (None Seen) /HPF Urine Bacteria (None Seen) /HPF Urine Culture Reflexed (NO) Influenza Type A Ag (NEGATIVE) Influenza Type B Ag (NEGATIVE) RSV (PCR) (Negative) SARS-CoV-2 (PCR) (NEGATIVE) - Progress Progress: improved, re-examined Progress Note: 08/31/22 09:26 CAT scan of the head without contraststroke protocolnew 1.5 cm focus of hypoattenuation left basal ganglia. Ischemia versus infarct. New remote lacunar infarct right external capsule. Stable atrophy and degenerative micro ischemia with remote lacunar infarct left internal capsule. 08/31/22 11:20 Medical decision making: This patient has high level of medical complexity. Patient has multiple medical problems. She presented with atrial fibrillation with RVR. She is on Eliquis and aspirin. Patient had a change in her mental status. Clinically, she appeared to have a CVA. Based on history obtained from the paramedics, history obtained from the [facility] chart, review of old [facility], review of the patient's medication list, examination of the patient and review of the laboratory work-up and radiographic studies, is how I made the determination the patient has high level of medical complexity issue in the emergency department today. Radiographically, it appears she does have a new, acute infarction. I obtained specialist consultation with Dr. Cadena, the tele- neurologist. We reviewed the patient history, physical findings and laboratory work-up as well as the radiographic/CT scan of head result. Based on the above it is determined the patient is not a candidate for tPA. Patient is to be admitted to the telemetry and a stroke work-up is to proceed. This incl udes MRA/MRI of the brain, MR I/MRA of the neck, echocardiogram, and PT/OT consultations. I also discussed the same information above and the plan of attack for this patient in the hospital with Dr. Bob Lowe who is the hospitalist on-call as well as this patient's primary care provider. She asked me to order the MRI/MRA of the brain and neck today. We are all in agreement of the diagnosis and the treatment plan for this patient. Discussed with .: [place], Other (Dr. Cadena tele neurologist) Counseled pt/family regarding: lab results, diagnosis, rad results - Departure Clinical Impression: CVA (cerebral vascular accident) Condition: Fair Critical Care Time: Yes Critical Care Time(excluding separately billable procedures): Critical 30-74 mins (60) Referrals: DEBI RAMOS [Primary Care Provider] - Follow up/PCP as directed
--- NOTE | 2022-08-31 09:14 | XRAY ---
Indication: Found unresponsive. Multiple contiguous axial images obtained through the head without contrast. Comparison: November 17, 2021 Again age-appropriate global atrophy, mild periventricular degenerative micro-ischemia bilaterally, and remote lacunar infarct left internal capsule. New subcentimeter focus remote lacunar infarct right external capsule. Left basal ganglia demonstrates new 1.5 cm oval focus of hypoattenuation, ischemia versus infarct. No acute intracranial hemorrhage, abnormal extra-axial fluid collection, or mass effect. Fourth ventricle is midline without hydrocephalus. Bony calvarium intact. Visualized paranasal sinuses and mastoid air cells are clear. Impression: 1. New 1.5 cm focus hypoattenuation left basal ganglia, ischemia versus infarct. No acute intracranial hemorrhage/mass effect. 2. New remote lacunar infarct right external capsule. 3. Grossly stable atrophy, degenerative micro-ischemia, and remote lacunar infarct left internal capsule.
[2022-08-31] MEDS ORDERED: LOPRESSOR INJECTION IV ONE ×2 (09:18→09:26)
[2022-08-31] MEDS ORDERED: Cardizem IV 50 MG/10 ML IV ONE ×2 (09:18→09:26)
[2022-08-31] MEDS: Sodium Chloride 0.9% 1000 ML 1,000 ML IV SCH ×2 (09:20→19:46)
[2022-08-31 09:29] LABS: Absolute Neutrophil Ct (ANC) 5.73 x10^3/uL (1.4-6.9); BASOPHIL % 0.4 % (0.0-0.4); Basophil (Absolute #) 0.03 x10^3/uL (0-0.4); Eosinophil % 3.4 % (0.00-5.0); Eosinophil (Absolute #) 0.27 x10^3/uL (0-0.5); Hematocrit 29.3 % (35-47); Hemoglobin 9.4 g/dL (12.0-16.0); IMMATURE GRAN # 0.02 x10^3u/L (0.00-0.03); IMMATURE GRAN % 0.2 % (0.00-0.4); Lymphocyte (Absolute #) 1.27 x10^3/uL (1.0-4.6); Lymphocytes % 15.8 % (24.0-44.0); Mean Cell Volume 90.2 fL (78-100); Mean Corpuscular Hemoglobin 28.9 pg (26-32); Mean Corpuscular Hgb Concent. 32.1 g/dL (32-36); Mean Platelet Volume 12.1 fL (7.5-11.0); Monocytes % 8.7 % (0.0-12.0); Neutrophil % 71.5 % (36.0-66.0); Platelet Count 318 x10^3/uL (150-450); Red Blood Count 3.25 x10^6/uL (4.1-5.4); Red Cell Distribution Width 14.8 % (11.5-14.0)
[2022-08-31 09:40] LABS: INR 1.02 (0.8-3.0); PROTIME 10.8 SECONDS (9.4-12.5)
[2022-08-31 09:40] LABS: Appearance Clear (Clear); Bacteria None Seen /HPF (None Seen); Bilirubin Negative (Negative); Blood Negative (Negative); Epithelial Cells None Seen /HPF (None Seen); Glucose, Urine Negative (Negative); Hyaline Casts NONE SEEN /LPF (0-2); Ketones Negative (Negative); Leukocyte Esterase Trace (Negative); Nitrite Negative (Negative); Ph 7.5 (4.6-8.0); Protein,Urine Dip 30 (Negative); RBC 0-2 /HPF (0-5); Specific Gravity <=1.005 (1.005-1.030); Urobilinogen 0.2 mg/dL (0.2)
[2022-08-31 09:42] LABS: ADD URINE CULTURE? NO (NO)
[2022-08-31 09:53] LABS: TROPONIN 0.018 ng/mL (0.000-0.034)
[2022-08-31 09:56] LABS: ALBUMIN 4.2 g/dL (3.5-5.0); ANION GAP 12.3 MEQ/L (5-15); BILIRUBIN,TOTAL 0.5 mg/dL (0.2-1.3); Calcium 8.4 mg/dL (8.4-10.2); Creatinine 1 1.62 mg/dL (0.52-1.04); EST GLOMERULAR FILTRATION RATE 32.7 ML/MIN; Potassium 4.1 mmol/L (3.5-5.1); Total Protein 7.5 g/dL (6.3-8.2)
[2022-08-31 10:08] LABS: INFLUENZA A NEGATIVE (NEGATIVE); INFLUENZA B NEGATIVE (NEGATIVE); RESPIRATORY SYNCTIAL VIRUS NEGATIVE (Negative); SARS-CoV-2 Xpert Express NEGATIVE (NEGATIVE)
[2022-08-31 10:37] LABS: T4 (Thyroxine) 19.9 ug/dL (5.53-10.96)
[2022-08-31 13:04] LABS: TSH, 3RD Generation < 0.015 mIU/L (0.47-4.68)
--- NOTE | 2022-08-31 13:21 | XRAY ---
Indication: Slurred speech. Sagittal, coronal, and axial MRI brain performed without contrast using T1, T2, FLAIR, diffusion, and ADC sequences. Comparison: None Age-appropriate global atrophy, mild periventricular degenerative micro-ischemia signal bilaterally, and remote lacunar infarct left curvature white matter. Left basal ganglia demonstrates 1.5 cm focus of restricted signal. 2-3 additional petechial restricted signal right parietal lobe posteriorly. Above findings favor acute ischemia. No acute intracranial hemorrhage, abnormal extra-axial fluid collection, or mass effect. Fourth ventricle is midline without hydrocephalus. 7/8 cranial nerve complex bilaterally symmetric. Normal flow void signal within the major intracerebral circulation. Normal-appearing craniocervical junction and sella turcica. Paranasal sinuses are clear. Impression: 1. 1.5 cm focus left basal ganglia acute ischemia. 2-3 additional foci acute micro-ischemia right parietal lobe. Multiplicity and bilaterality concerning for embolic phenomena. No acute hemorrhage or mass effect. 2. Atrophy and degenerative micro-ischemia within normal limits for patient's age. Remote lacunar infarct left periventricular white matter.
[2022-08-31] MEDS ORDERED: Zofran 4 MG/2 ML VIAL IV PRN (13:47)
[2022-08-31] MEDS ORDERED: TYLENOL 325 MG PO PRN ×2 (13:47→15:53)
--- NOTE | 2022-08-31 15:22 | XRAY ---
Indication: CVA. Two-dimensional sonogram and color Doppler imaging of the carotid arteries of the neck performed. Comparison: None Examination of the right carotid circulation demonstrates mild calcified plaquing at the level of the bulb extending into the origin/proximal internal carotid artery. Remaining common carotid and external carotid arteries are widely patent. PSV of the CCA is 82 cm/s. PSV of the ICA is 99 cm/s. ICA/CCA ratio is 1.2. Normal antegrade vertebral artery flow. Examination of the left carotid circulation demonstrates mild/moderate calcified plaquing at the level of the bulb extending into the origin/proximal internal carotid carotid and lesser degree origin external carotid artery. PSV of the CCA is 80 cm/s. PSV of the ICA is 143 cm/s. ICA/CCA ratio is 1.8. Normal antegrade vertebral artery flow. Impression: Mild right and mild/moderate left carotid calcified plaquing as detailed. Velocity measurements and ratios favor 50-69% stenosis on the left. No hemodynamically significant flow limiting stenosis on the right.
[2022-08-31] MEDS ORDERED: NON-FORMULARY ITEM (Insulin Aspart [Novolog] 100 UNIT/ML Vial) SQ SCH (16:00)
[2022-08-31] MEDS: HUMALOG SQ SCH (17:08)
[2022-08-31] MEDS: Cardizem CD PO SCH (17:33)
[2022-08-31] MEDS: Cozaar 50 MG PO SCH (17:33)
[2022-08-31] MEDS: Lyrica 50MG PO SCH ×3 (17:33→22:50)
[2022-08-31] MEDS ORDERED: NON-FORMULARY ITEM (Apixaban*** [Eliquis 5 Mg Tablet***] 5 MG Tablet) PO SCH (22:00)
[2022-08-31] MEDS ORDERED: CALCITRIOL 0.25 MCG PO SCH (22:00)
[2022-08-31] MEDS ORDERED: SYMBICORT PO SCH (22:00)
[2022-08-31] MEDS: ELIQUIS 2.5 MG TABLET PO SCH (22:47)
[2022-08-31] MEDS: Singulair 10 MG PO SCH (22:47)
[2022-08-31] MEDS: Lopressor 50 MG PO SCH (22:47)
[2022-08-31] MEDS: Protonix 40MG Tablet PO SCH (22:47)
[2022-08-31] MEDS: BUSPAR 5 MG PO SCH (22:48)
[2022-08-31] MEDS: HUMULIN R SQ PRN (22:48)
[2022-08-31] MEDS: Pepcid 20 MG PO SCH (22:48)
[2022-08-31] MEDS: Tums EX 750 MG PO SCH (22:48)
[2022-09-01] MEDS: HUMULIN R SQ PRN ×4 (00:30→22:08)
[2022-09-01 05:32] LABS: Absolute Neutrophil Ct (ANC) 4.86 x10^3/uL (1.4-6.9); BASOPHIL % 0.4 % (0.0-0.4); Basophil (Absolute #) 0.03 x10^3/uL (0-0.4); Eosinophil % 1.9 % (0.00-5.0); Eosinophil (Absolute #) 0.13 x10^3/uL (0-0.5); Hematocrit 24.9 % (35-47); Hemoglobin 7.8 g/dL (12.0-16.0); IMMATURE GRAN # 0.02 x10^3u/L (0.00-0.03); IMMATURE GRAN % 0.3 % (0.00-0.4); Lymphocyte (Absolute #) 1.08 x10^3/uL (1.0-4.6); Lymphocytes % 15.5 % (24.0-44.0); Mean Cell Volume 90.5 fL (78-100); Mean Corpuscular Hemoglobin 28.4 pg (26-32); Mean Corpuscular Hgb Concent. 31.3 g/dL (32-36); Mean Platelet Volume 12.4 fL (7.5-11.0); Monocyte (Absolute #) 0.84 x10^3/uL (0.0-1.3); Monocytes % 12.1 % (0.0-12.0); Neutrophil % 69.8 % (36.0-66.0); Platelet Count 283 x10^3/uL (150-450); Red Blood Count 2.75 x10^6/uL (4.1-5.4); Red Cell Distribution Width 14.9 % (11.5-14.0)
[2022-09-01 05:40] LABS: ALBUMIN 3.4 g/dL (3.5-5.0); ANION GAP 10.8 MEQ/L (5-15); BILIRUBIN,TOTAL 0.4 mg/dL (0.2-1.3); Calcium 7.7 mg/dL (8.4-10.2); Creatinine 1 1.4 mg/dL (0.52-1.04); EST GLOMERULAR FILTRATION RATE 38.8 ML/MIN; Potassium 3.6 mmol/L (3.5-5.1); Total Protein 6.4 g/dL (6.3-8.2)
[2022-09-01] MEDS: Sodium Chloride 0.9% 1000 ML 1,000 ML IV SCH ×2 (06:02→20:29)
[2022-09-01] MEDS: Advair Hfa 115/21 Common canister IH SCH ×2 (07:32→18:34)
[2022-09-01] MEDS: HUMALOG SQ SCH ×3 (09:16→17:55)
[2022-09-01] MEDS: Lantus Insulin SQ SCH ×2 (09:17→11:45)
[2022-09-01] MEDS ORDERED: NON-FORMULARY ITEM (Losartan Potassium [Cozaar] 25 MG Tablet) PO SCH (10:00)
[2022-09-01] MEDS ORDERED: SYNTHROID 125 MCG PO SCH ×2 (10:00→12:00)
[2022-09-01] MEDS ORDERED: CYANOCOBALAMIN 1000 MCG PO SCH (10:00)
[2022-09-01] MEDS ORDERED: LEVOTHYROXINE SODIUM 300 MCG PO SCH (10:00)
[2022-09-01] MEDS ORDERED: ECOTRIN 81 MG PO SCH (10:00)
[2022-09-01] MEDS ORDERED: NON-FORMULARY ITEM (Pravastatin Sodium [Pravastatin Sodium] 40 MG Tablet) PO SCH (10:00)
[2022-09-01] MEDS ORDERED: NON-FORMULARY ITEM (Diltiazem Hcl [Diltiazem 24hr Er] 240 MG Cap.Sa.24h) PO SCH (10:00)
[2022-09-01] MEDS ORDERED: NON-FORMULARY ITEM (Cetirizine Hcl [Zyrtec] 10 MG Tablet) PO SCH (10:00)
[2022-09-01] MEDS: Pepcid 20 MG PO SCH ×2 (10:24→22:07)
[2022-09-01] MEDS: Protonix 40MG Tablet PO SCH ×2 (10:24→22:07)
[2022-09-01] MEDS: Tums EX 750 MG PO SCH ×2 (10:27→22:09)
[2022-09-01] MEDS: Vitamin B-12 500 MCG PO SCH (10:27)
[2022-09-01] MEDS: ZOCOR 20MG PO SCH (10:27)
[2022-09-01] MEDS: ECOTRIN 81 MG PO SCH (10:28)
[2022-09-01] MEDS: FOLATE 1 MG PO SCH (10:28)
[2022-09-01] MEDS: ELIQUIS 2.5 MG TABLET PO SCH ×2 (10:28→22:08)
[2022-09-01] MEDS: Cozaar 50 MG PO SCH (10:29)
[2022-09-01] MEDS: CLARITIN 10 MG PO SCH (10:30)
[2022-09-01] MEDS: Cardizem CD PO SCH (10:32)
[2022-09-01] MEDS: BUSPAR 5 MG PO SCH ×2 (10:32→22:08)
[2022-09-01] MEDS: Lopressor 50 MG PO SCH ×2 (10:33→22:08)
[2022-09-01] MEDS: Acidophilus TABLET PO SCH (10:33)
[2022-09-01] MEDS: Lyrica 50MG PO SCH ×3 (10:33→22:07)
--- NOTE | 2022-09-01 12:02 | PCM.HP ---
History of Present Illness - Chief Complaint Chief Complaint: cva History of Present Illness: is a 77 year old female pt of mine from [facility], currently living at [facility], who was admitted through ER with CVA. She has Hx COPD, CAD, DM II, peripheral neuropathy, hx breast ca, HLD, HTN, celiac dz, hypothyroidism, chronic renal insufficiency, and atrial fibrillation. She has had CVA in the past. She apparently was at breakfast at 7 am, then at 8 am was found to be staring and not responding. For some reason, it took 45 min to get her to ER. When there, was talking but noted weak on RUE. Imaging showed small L basal ganglia infarct. Teleneurology was consulted, thank you. Pt was not a candidate for TPA. She was admitted for CVA workup. Ammonia was nl. BNP nl. T4 elevated; TSH is low. She is conversant today. Denies any paresthesias or trouble speaking. was noted to have slurred speech in ER. Is oriented x 3 this morning. Says her teeth were left at [facility]. She can't remember the events that led to her admission yesterday. - Review of Systems Constitutional: Other (feels cold and wears a blanket at [facility] most of the time.) Cardiac: Edema (LLE - new recently) Abdominal/Gastrointestinal: Diarrhea (chronic - cant say if any melena or hematochezia.) All Other Systems: Reviewed and Negative Medications & Allergies Home Medications: Home Medication List Montelukast Sodium 10 mg [Singulair 10 MG] 10 mg PO HS 01/20/18 [History Confirmed 08/31/22] Buspirone HCl 5 mg [Buspar 5 mg] 5 mg PO BID 12/02/20 [History Confirmed 08/31/22] Cetirizine HCl [Zyrtec] 10 mg PO DAILY 12/02/20 [History Confirmed 08/31/22] Famotidine 20 mg [Pepcid 20 MG] 20 mg PO BID 12/02/20 [History Confirmed 08/31/22] Levothyroxine Sodium [Unithroid] 375 mcg PO DAILY 12/02/20 [History Confirmed 08/31/22] Losartan Potassium [Cozaar] 25 mg PO DAILY 12/02/20 [History Confirmed 08/31/22] Insulin Glargine [Lantus Insulin] 35 unit SQ QAM 07/06/22 [History Confirmed 08/31/22] PANTOPRAZOLE 40 mg Tablet [Protonix 40MG Tablet] 40 mg PO BID 07/06/22 [History Confirmed 08/31/22] Pravastatin Sodium 20 mg PO DAILY 07/06/22 [History Confirmed 08/31/22] Pregabalin 50 mg [Lyrica 50MG] 50 mg PO TID 07/06/22 [History Confirmed 08/31/22] Apixaban [Eliquis 5 mg Tablet] 5 mg PO BID 07/16/22 [History Confirmed 08/31/22] Cyanocobalamin (Vitamin B-12) [Vitamin B-12] 1,000 mcg PO DAILY 07/16/22 [History Confirmed 08/31/22] Diltiazem HCl [Diltiazem 24Hr ER] 240 mg PO DAILY 07/16/22 [History Confirmed 08/31/22] Insulin Aspart [Novolog] 0 unit SQ UD 07/16/22 [History Confirmed 08/31/22] Lactobacillus Acidophilus [Acidophilus TABLET] 1 tab PO DAILY 07/16/22 [History Confirmed 08/31/22] Metoprolol Tartrate 50 mg [Lopressor 50 MG] 50 mg PO BID 07/16/22 [History Confirmed 08/31/22] Symbicort 80mcg - 4.5mcg 2 inh PO BID 07/16/22 [History Confirmed 08/31/22] calcitrioL 0.25 mcg PO BID 07/16/22 [History Confirmed 08/31/22] Acetaminophen [Tylenol] 650 mg PO Q6HPRN PRN 08/31/22 [History Confirmed 08/31/22] Aspirin EC 81 mg [Ecotrin 81 mg] 81 mg PO DAILY 08/31/22 [History Confirmed 08/31/22] Calcium Carbonate 750 mg [Tums EX 750 MG] 2 tab PO BID 08/31/22 [History Confirmed 08/31/22] Ferrous Sulfate 325 mg [Feosol 325 mg] 325 mg PO BID 08/31/22 [History Confirmed 08/31/22] Folic Acid 1 mg [Folate 1 mg] 1 mg PO DAILY 08/31/22 [History Confirmed 08/31/22] Allergies/Adverse Reactions: Allergies Allergy/AdvReac Type Severity Reaction Status Date / Time albuterol Allergy Intermediate Swelling Verified 07/18/22 16:17 of Tongue and Lips propranolol [From Inderal LA] Allergy Intermediate Verified 07/18/22 16:17 clonazepam [From Klonopin] Allergy Tightness Verified 07/18/22 16:17 of Throat metoclopramide [From Reglan] Allergy Verified 07/18/22 16:17 propranolol HCl Allergy Swelling Verified 07/18/22 16:17 [From Inderal LA] of Tongue and Lips Sulfa (Sulfonamide Allergy Swelling Verified 07/18/22 16:17 Antibiotics) of Tongue and Lips terfenadine Allergy Verified 07/18/22 16:17 venom-honey bee Allergy Hives Verified 07/18/22 16:17 [bee venom (honey bee)] zanamivir Allergy Swelling Verified 07/18/22 16:17 [From Relenza Diskhaler] of Tongue and Lips cilostazol [From Pletal] AdvReac Severe Swelling Verified 07/18/22 16:17 of Tongue and Lips ticagrelor [From Brilinta] AdvReac Severe Swelling Verified 07/18/22 16:17 of Tongue and Lips - Past Medical History Past Medical History: Yes Neurological History: TIA, Peripheral Neuropathy ENT History: Other Cardiac History: Arrhythmia, Congestive Heart Failure, High Cholesterol, Hypertension, Myocardial Infarction (SC) Respiratory History: COPD Endocrine Medical History: Diabetes Type II, Hypothyroidism Musculoskelatal History: No Pertinent History GI Medical History: Other, GERD History: No Pertinent History Pyscho-Social History: Anxiety Reproductive Disorders: Breast Cancer Comment: right eye retinal scratch November 2020, NEUROPATHY - Female History Are you now?: No - Past Surgical History Past Surgical History: Yes Neuro Surgical History: No Pertinent History Cardiac History: Other Respiratory Surgery: No Pertinent History GI Surgical History: Hernia Repair Genitourinary Surgical Hx: No Pertinent History Musculskeletal Surgical Hx: No Pertinent History Female Surgical History: Mastectomy, Lumpectomy Other Surgical History: left mastectomy 1993, right lumpectomy, right thyroid removed, left thyroid removed with goiter, pubic mass, left knee scope, valve replacement - Social History Smoking Status: Never smoker Exposure to second hand smoke: No Alcohol: None Drug Use: none - Physical Exam Vital Signs: Vital Signs - 24 hr Temp Pulse Resp BP Pulse Ox 09/01/22 11:54 98.9 F 86 16 137/59 96 09/01/22 08:00 97.9 F 78 17 103/46 96 09/01/22 07:30 75 16 96 09/01/22 04:00 98.2 F 79 18 134/63 95 08/31/22 23:41 97.8 F 94 H 18 169/71 93 L 08/31/22 19:59 98.4 F 99 H 20 135/61 93 L 08/31/22 18:49 102 H 20 96 08/31/22 17:12 87 20 98 08/31/22 16:00 97.7 F 88 16 166/72 97 08/31/22 14:04 98.0 F 80 16 140/95 98 08/31/22 13:38 98.0 F 80 16 140/95 98 08/31/22 13:11 99.0 F 80 20 122/75 97 08/31/22 12:00 99 F 84 14 135/89 95 General Appearance: no apparent distress, alert Neurologic Exam: oriented x 3, cooperative, other (CN III-XII intact ASIDE from decreased CN VIII bilat, R>L. Sales Account Specialist 5/5 on L, 4/5 on R. Dorsi- and plantar- flexion 5/5 bilat. Hip flexors 5-/5 on R and 5/5 on L. Pt states chronic R sided weakness as compared with L. Finger-nose intact bilat.) Eye Exam: eyes nml inspection Results - Labs Lab/Micro Results: Lab Results-Last 24 Hours 08/31/22 08/31/22 08/31/22 Range/Units 09:15 13:40 16:33 WBC (4.0-10.5) x10^3/uL RBC (4.1-5.4) x10^6/uL Hgb (12.0-16.0) g/dL Hct (35-47) % MCV (78-100) fL MCH (26-32) pg MCHC (32-36) g/dL RDW (11.5-14.0) % Plt Count (150-450) x10^3/uL MPV (7.5-11.0) fL Gran % (36.0-66.0) % Immature Gran % (Auto) (0.00-0.4) % Nucleat RBC Rel Count (0.00-0.1) % Eos # (Auto) (0-0.5) x10^3/uL Immature Gran # (Auto) (0.00-0.03) x10^3u/L Absolute Lymphs (auto) (1.0-4.6) x10^3/uL Absolute Monos (auto) (0.0-1.3) x10^3/uL Absolute Nucleated RBC (0.00-0.01) x10^3u/L Lymphocytes % (24.0-44.0) % Monocytes % (0.0-12.0) % Eosinophils % (0.00-5.0) % Basophils % (0.0-0.4) % Absolute Granulocytes (1.4-6.9) x10^3/uL Basophils # (0-0.4) x10^3/uL Sodium (137-145) mmol/L Potassium (3.5-5.1) mmol/L Chloride (98-107) mmol/L Carbon Dioxide (22-30) mmol/L Anion Gap (5-15) MEQ/L BUN (7-17) mg/dL Creatinine (0.52-1.04) mg/dL Estimated GFR ML/MIN Glucose (74-106) mg/dL POC Glucometer 51 L (74 to 106) mg/dL Calcium (8.4-10.2) mg/dL Total Bilirubin (0.2-1.3) mg/dL AST (14-36) U/L ALT (0-35) U/L Alkaline Phosphatase (38-126) U/L Troponin I 0.022 (0.000-0.034) ng/mL Serum Total Protein (6.3-8.2) g/dL Albumin (3.5-5.0) g/dL TSH 3rd Generation < 0.015 L (0.47-4.68) mIU/L 08/31/22 08/31/22 08/31/22 Range/Units 17:44 21:03 21:05 WBC (4.0-10.5) x10^3/uL RBC (4.1-5.4) x10^6/uL Hgb (12.0-16.0) g/dL Hct (35-47) % MCV (78-100) fL MCH (26-32) pg MCHC (32-36) g/dL RDW (11.5-14.0) % Plt Count (150-450) x10^3/uL MPV (7.5-11.0) fL Gran % (36.0-66.0) % Immature Gran % (Auto) (0.00-0.4) % Nucleat RBC Rel Count (0.00-0.1) % Eos # (Auto) (0-0.5) x10^3/uL Immature Gran # (Auto) (0.00-0.03) x10^3u/L Absolute Lymphs (auto) (1.0-4.6) x10^3/uL Absolute Monos (auto) (0.0-1.3) x10^3/uL Absolute Nucleated RBC (0.00-0.01) x10^3u/L Lymphocytes % (24.0-44.0) % Monocytes % (0.0-12.0) % Eosinophils % (0.00-5.0) % Basophils % (0.0-0.4) % Absolute Granulocytes (1.4-6.9) x10^3/uL Basophils # (0-0.4) x10^3/uL Sodium (137-145) mmol/L Potassium (3.5-5.1) mmol/L Chloride (98-107) mmol/L Carbon Dioxide (22-30) mmol/L Anion Gap (5-15) MEQ/L BUN (7-17) mg/dL Creatinine (0.52-1.04) mg/dL Estimated GFR ML/MIN Glucose (74-106) mg/dL POC Glucometer 576 H* 597 H* (74 to 106) mg/dL Calcium (8.4-10.2) mg/dL Total Bilirubin (0.2-1.3) mg/dL AST (14-36) U/L ALT (0-35) U/L Alkaline Phosphatase (38-126) U/L Troponin I 0.020 (0.000-0.034) ng/mL Serum Total Protein (6.3-8.2) g/dL Albumin (3.5-5.0) g/dL TSH 3rd Generation (0.47-4.68) mIU/L 09/01/22 09/01/22 09/01/22 Range/Units 00:20 01:04 04:25 WBC 7.0 (4.0-10.5) x10^3/uL RBC 2.75 L (4.1-5.4) x10^6/uL Hgb 7.8 L (12.0-16.0) g/dL Hct 24.9 L (35-47) % MCV 90.5 (78-100) fL MCH 28.4 (26-32) pg MCHC 31.3 L (32-36) g/dL RDW 14.9 H (11.5-14.0) % Plt Count 283 (150-450) x10^3/uL MPV 12.4 H (7.5-11.0) fL Gran % 69.8 H (36.0-66.0) % Immature Gran % (Auto) 0.3 (0.00-0.4) % Nucleat RBC Rel Count 0.0 (0.00-0.1) % Eos # (Auto) 0.13 (0-0.5) x10^3/uL Immature Gran # (Auto) 0.02 (0.00-0.03) x10^3u/L Absolute Lymphs (auto) 1.08 (1.0-4.6) x10^3/uL Absolute Monos (auto) 0.84 (0.0-1.3) x10^3/uL Absolute Nucleated RBC 0.00 (0.00-0.01) x10^3u/L Lymphocytes % 15.5 L (24.0-44.0) % Monocytes % 12.1 H (0.0-12.0) % Eosinophils % 1.9 (0.00-5.0) % Basophils % 0.4 (0.0-0.4) % Absolute Granulocytes 4.86 (1.4-6.9) x10^3/uL Basophils # 0.03 (0-0.4) x10^3/uL Sodium (137-145) mmol/L Potassium (3.5-5.1) mmol/L Chloride (98-107) mmol/L Carbon Dioxide (22-30) mmol/L Anion Gap (5-15) MEQ/L BUN (7-17) mg/dL Creatinine (0.52-1.04) mg/dL Estimated GFR ML/MIN Glucose (74-106) mg/dL POC Glucometer 597 H* 519 H* (74 to 106) mg/dL Calcium (8.4-10.2) mg/dL Total Bilirubin (0.2-1.3) mg/dL AST (14-36) U/L ALT (0-35) U/L Alkaline Phosphatase (38-126) U/L Troponin I (0.000-0.034) ng/mL Serum Total Protein (6.3-8.2) g/dL Albumin (3.5-5.0) g/dL TSH 3rd Generation (0.47-4.68) mIU/L 09/01/22 09/01/22 09/01/22 Range/Units 04:25 07:13 11:05 WBC (4.0-10.5) x10^3/uL RBC (4.1-5.4) x10^6/uL Hgb (12.0-16.0) g/dL Hct (35-47) % MCV (78-100) fL MCH (26-32) pg MCHC (32-36) g/dL RDW (11.5-14.0) % Plt Count (150-450) x10^3/uL MPV (7.5-11.0) fL Gran % (36.0-66.0) % Immature Gran % (Auto) (0.00-0.4) % Nucleat RBC Rel Count (0.00-0.1) % Eos # (Auto) (0-0.5) x10^3/uL Immature Gran # (Auto) (0.00-0.03) x10^3u/L Absolute Lymphs (auto) (1.0-4.6) x10^3/uL Absolute Monos (auto) (0.0-1.3) x10^3/uL Absolute Nucleated RBC (0.00-0.01) x10^3u/L Lymphocytes % (24.0-44.0) % Monocytes % (0.0-12.0) % Eosinophils % (0.00-5.0) % Basophils % (0.0-0.4) % Absolute Granulocytes (1.4-6.9) x10^3/uL Basophils # (0-0.4) x10^3/uL Sodium 139 (137-145) mmol/L Potassium 3.6 (3.5-5.1) mmol/L Chloride 104 (98-107) mmol/L Carbon Dioxide 27 (22-30) mmol/L Anion Gap 10.8 (5-15) MEQ/L BUN 32 H (7-17) mg/dL Creatinine 1.40 H (0.52-1.04) mg/dL Estimated GFR 38.8 ML/MIN Glucose 213 H (74-106) mg/dL POC Glucometer 57 L 229 H (74 to 106) mg/dL Calcium 7.7 L (8.4-10.2) mg/dL Total Bilirubin 0.40 (0.2-1.3) mg/dL AST 22 (14-36) U/L ALT 17 (0-35) U/L Alkaline Phosphatase 76 (38-126) U/L Troponin I (0.000-0.034) ng/mL Serum Total Protein 6.4 (6.3-8.2) g/dL Albumin 3.4 L (3.5-5.0) g/dL TSH 3rd Generation (0.47-4.68) mIU/L Accuchecks Date 09/01/22 Date 09/01/22 Date 08/31/22 Time 16:34 - Radiology Impressions Radiology Exams & Impressions: Radiology Procedures Category Date Time Status CAROTID BILATERAL [US] Stat Exams 08/31/22 13:47 Completed HEAD WITHOUT CONTRAST [CT] Stat Exams 08/31/22 08:48 Completed MRI BRAIN W/O CONTRAST [MRI] Stat Exams 08/31/22 11:08 Completed - Other Procedures and Tests Respiratory Therapy 09/01/22 07:00 Respiratory Therapy Assessment DAILY Assessment/Plan (1) CVA (cerebral vascular accident) Current Visit: Yes Status: Acute Qualifiers: CVA mechanism: embolism Precerebral and cerebral artery: middle cerebral artery Laterality of affected vessel: left Qualified Code(s): I63.412 - Cerebral infarction due to embolism of left middle cerebral artery Assessment & Plan: L basal ganglia. Did carotid doppler (no critical stenosis), MRI brain. On DOAC already, Eliquis 5 mg po BID. Code(s): I63.9 - CEREBRAL INFARCTION, UNSPECIFIED (2) Anemia Current Visit: No Status: Chronic Qualifiers: Anemia type: due to chronic kidney disease Chronic kidney disease stage: stage 3 (moderate) Code(s): D64.9 - ANEMIA, UNSPECIFIED (3) Hyperglycemia Current Visit: No Status: Acute Assessment & Plan: Has had a low of 52 and a high > 600 here. Code(s): R73.9 - HYPERGLYCEMIA, UNSPECIFIED (4) Diabetes mellitus Current Visit: No Status: Chronic Qualifiers: Diabetes mellitus type: type 2 Diabetes mellitus continuous churn buttermaker insulin use: with continuous churn buttermaker use Diabetes mellitus complication status: with kidney complications Diabetes mellitus complication detail: with chronic kidney disease Chronic kidney disease stage: stage 2 (mild) Qualified Code(s): E11.22 - Type 2 diabetes mellitus with diabetic chronic kidney disease; N18.2 - Chronic kidney disease, stage 2 (mild); Z79.4 - halfway (current) use of insulin Code(s): E11.9 - TYPE 2 DIABETES MELLITUS WITHOUT COMPLICATIONS (5) Renal insufficiency Current Visit: No Status: Chronic Assessment & Plan: stage 3.
[2022-09-01] MEDS ORDERED: Advair Hfa 115/21 Common canister IH SCH (19:00)
[2022-09-01] MEDS: Singulair 10 MG PO SCH (22:08)
[2022-09-02] MEDS: Sodium Chloride 0.9% 1000 ML 1,000 ML IV SCH (05:12)
[2022-09-02] MEDS: Advair Hfa 115/21 Common canister IH SCH ×2 (07:10→17:44)
[2022-09-02 07:18] LABS: Hematocrit 24.6 % (35-47); Hemoglobin 7.9 g/dL (12.0-16.0); Mean Cell Volume 89.8 fL (78-100); Mean Corpuscular Hemoglobin 28.8 pg (26-32); Mean Corpuscular Hgb Concent. 32.1 g/dL (32-36); Mean Platelet Volume 11.6 fL (7.5-11.0); Platelet Count 250 x10^3/uL (150-450); Red Blood Count 2.74 x10^6/uL (4.1-5.4); Red Cell Distribution Width 14.7 % (11.5-14.0); White Blood Count 8.6 x10^3/uL (4.0-10.5)
[2022-09-02] MEDS: Lantus Insulin SQ SCH (08:05)
[2022-09-02] MEDS: HUMALOG SQ SCH ×3 (08:06→17:18)
[2022-09-02 08:44] LABS: ANION GAP 10.4 MEQ/L (5-15); Creatinine 1 1.38 mg/dL (0.52-1.04); EST GLOMERULAR FILTRATION RATE 39.4 ML/MIN; Potassium 4.1 mmol/L (3.5-5.1)
--- NOTE | 2022-09-02 09:17 | PCM.NOTE ---
Date and Time: 09/02/22913 Subjective Assessment: Pt is in bed and has eaten 100% of her breakfast. She tells me she doesn't know where she is, but knows today is Sep 02, 2022. No complaints. - Review of Systems Constitutional: No Fever Abdominal/Gastrointestinal: No Vomiting Objective Exam General Appearance: no apparent distress, alert Neurologic Exam: cooperative, confusion Skin Exam: normal color, warm, dry, No rash Eye Exam: eyes nml inspection Ears, Nose, Throat Exam: moist mucous membranes Neck Exam: normal inspection Respiratory Exam: normal breath sounds, lungs clear, No crackles/rales, No rhonchi, No wheezing Cardiovascular Exam: regular rate/rhythm, normal heart sounds, No murmur Gastrointestinal/Abdomen Exam: soft, normal bowel sounds, No tenderness, No distention, No mass, No guarding, No rebound Extremity Exam: normal inspection, swelling (trace pretibial edema bilat.) OBJECTIVE DATA Vital Signs: Vital Signs - 24 hr Temp Pulse Resp BP Pulse Ox 09/02/22 07:50 98.7 F 79 17 175/79 95 09/02/22 04:00 97.3 F 75 18 141/70 94 L 09/01/22 23:48 98.5 F 87 20 164/83 95 09/01/22 20:00 98.7 F 80 20 140/65 98 09/01/22 18:35 83 16 96 09/01/22 16:00 98.4 F 73 16 94 L 09/01/22 11:54 98.9 F 86 16 137/59 96 Pain Assessment - Last Documented Pain Intensity 0 Intake and Output: Intake & Output 08/30/22 08/31/22 09/01/22 09/02/22 11:59 11:59 11:59 11:59 Intake Total 2372 3715 Output Total 4350 8090 Balance -7128 -35 Weight 67 kg 67 kg Lab Results: Lab Results-Last 24 Hours 09/01/22 09/01/22 09/01/22 Range/Units 11:05 16:22 21:38 WBC (4.0-10.5) x10^3/uL RBC (4.1-5.4) x10^6/uL Hgb (12.0-16.0) g/dL Hct (35-47) % MCV (78-100) fL MCH (26-32) pg MCHC (32-36) g/dL RDW (11.5-14.0) % Plt Count (150-450) x10^3/uL MPV (7.5-11.0) fL POC Glucometer 229 H 372 H 317 H (74 to 106) mg/dL 09/02/22 09/02/22 09/02/22 Range/Units 04:32 07:08 07:15 WBC 8.6 (4.0-10.5) x10^3/uL RBC 2.74 L (4.1-5.4) x10^6/uL Hgb 7.9 L (12.0-16.0) g/dL Hct 24.6 L (35-47) % MCV 89.8 (78-100) fL MCH 28.8 (26-32) pg MCHC 32.1 (32-36) g/dL RDW 14.7 H (11.5-14.0) % Plt Count 250 (150-450) x10^3/uL MPV 11.6 H (7.5-11.0) fL POC Glucometer 151 H 201 H (74 to 106) mg/dL Radiology Exams: Radiology Procedures Category Date Time Status CAROTID BILATERAL [US] Stat Exams 08/31/22 13:47 Completed HEAD WITHOUT CONTRAST [CT] Stat Exams 08/31/22 08:48 Completed MRI BRAIN W/O CONTRAST [MRI] Stat Exams 08/31/22 11:08 Completed Multi-Disciplinary Progress Notes: Multi-Disciplinary Progress Notes 09/02/22 08:25 OT Plan of Care Note by Terrance(Ann#[id number])Mojgan Occupational Therapy Evaluation completed 08/31/2022. Please see details below. OT Eval OT Eval and Treat MD Order Start: 08/31/22 13:47 Freq: ROUTINE Status: Complete Protocol: Created 08/31/22 13:47 RFR (Rec: 08/31/22 13:47 RFR [id number]) Document 08/31/22 16:27 DADA (Rec: 08/31/22 17:06 DADA [id number]) OT Assessment Pertinent Past Medical History Patient is a 77 y/o female brought to [facility] ED 08/31/22 AM via ED from [facility] where she was staying for Rehab. Per half-way staff, patient toby'd decr in speech and movement after breakfast at 0700. Prior to hospitalization approximately 1 month ago and admittance to SNF for rehab stay, patient reports that she lives alone in a mobile home with 4 steps to enter with right-side railing upon entrance. She reports that she has never driven and has groceries delivered. She states that she cooks herself breakfast and receives lunch and dinner via [employer] program. She "does what she can when she can" around the home for housekeeping and states that she was independent with all self-care tasks including showering, dressing, feeding, grooming/ hygiene, and toileting. 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 She has a son who lives in [facility] and two living daughters who live nearby, but she reports are very busy. She has 6 grandchildren and 2 great-grandchildren. Patient wears glasses and has upper and lower dentures. She is left-handed. TIA, peripheral neuropathy, DM -I, hypothyroidism, COPD, HTN, GERD, Breast Cancer (s/p L mastectomy in 1993 and R lumpectomy), anxiey, R eye retinal scratch (11/2020) Surgical History: tonsillectomy, adenoidectomy, hernia repair, R thyroid removed, L thyroid removed with goiter, L knee scope, pubic mass, valve replacement Equipment at Home Prior to Admission Cane Comment long-handled shower head, shower seat Date 08/31/22 Comment Did not assess as patient is currently NPO status and will be evaluated by thomas. Grooming WFL Toileting Impaired Comment Ram Catheter in place during evaluation Bed Mobility WFL Cognition Patient is alert and ortiented x3. Demo's difficulty with word finding occasionally Functional Problem List impaired gross motor coordination Pain Limitations patient denies pain currently Therapuetic Interventions Evaluation OT Inpatient Plan of Care Date of Evaluation 08/31/22 Treatment Diagnosis CVA Precaution/Orders as written Eval&Treat Frequency/Duration Eval-Only Patient assessed for Rehab Services Yes Was notification received of nursing Yes assessment trigger Chart screen completed Yes Are referral orders warranted for Yes evaluation Is an intervention justified at this No time Comment Patient presents with BUE ROM WFL, bed mobility to sit EOB with SBA, minor impairments with gross motor coordination noted, and occasional difficulty with word-finding and recall reported to ST by this OTR. Patient feels that she is at baseline functional performance compared to that at SNF prior to CVA this morning. OTR recommends patient continue with therapy at SNF upon return to facility . Will continue to monitor patient status and coordinate with IDT should further need for OT services arise. Initialized on 09/02/22 08:25 - END OF NOTE 09/02/22 08:18 Case Management Note by Angelita Ball PT AND [facility] FAXED TO [facility]O [facility] Initialized on 09/02/22 08:18 - END OF NOTE 09/01/22 12:18 Case Management Note by Angelita Ball S/W MANSI AT [facility]- PATIENT WILL REQUIRE PRECERT TO RETURN. THEY WERE FAXED CLINICALS AT THIS TIME TO START PROCESS Initialized on 09/01/22 12:18 - END OF NOTE Assessment/Plan (1) CVA (cerebral vascular accident) Current Visit: Yes Status: Acute Qualifiers: CVA mechanism: embolism Precerebral and cerebral artery: middle cerebral artery Laterality of affected vessel: left Qualified Code(s): I63.412 - Cerebral infarction due to embolism of left middle cerebral artery Assessment & Plan: She appears to be doing very well, overall. For the nurse, she was completely oriented. Will get out of bed with nurse after breakfast. Ready to discharge back to [facility]. Code(s): I63.9 - CEREBRAL INFARCTION, UNSPECIFIED (2) Anemia Current Visit: No Status: Chronic Qualifiers: Anemia type: due to chronic kidney disease Chronic kidney disease stage: stage 3 (moderate) Assessment & Plan: stable at 7.9 hgb Code(s): D64.9 - ANEMIA, UNSPECIFIED (3) Hyperglycemia Current Visit: No Status: Acute Code(s): R73.9 - HYPERGLYCEMIA, UNSPECIFIED (4) Diabetes mellitus Current Visit: No Status: Chronic Qualifiers: Diabetes mellitus type: type 2 Diabetes mellitus senior living insulin use: with senior living use Diabetes mellitus complication status: with kidney complications Diabetes mellitus complication detail: with chronic kidney disease Chronic kidney disease stage: stage 2 (mild) Qualified Code(s): E11.22 - Type 2 diabetes mellitus with diabetic chronic kidney disease; N18.2 - Chronic kidney disease, stage 2 (mild); Z79.4 - exterminator (current) use of insulin Code(s): E11.9 - TYPE 2 DIABETES MELLITUS WITHOUT COMPLICATIONS (5) Renal insufficiency Current Visit: No Status: Chronic
[2022-09-02] MEDS: FOLATE 1 MG PO SCH (10:01)
[2022-09-02] MEDS: Lopressor 50 MG PO SCH ×2 (10:01→21:46)
[2022-09-02] MEDS: CLARITIN 10 MG PO SCH (10:01)
[2022-09-02] MEDS: Cardizem CD PO SCH (10:01)
[2022-09-02] MEDS: Acidophilus TABLET PO SCH (10:01)
[2022-09-02] MEDS: Pepcid 20 MG PO SCH ×2 (10:03→21:46)
[2022-09-02] MEDS: SYNTHROID 125 MCG PO SCH (10:03)
[2022-09-02] MEDS: ECOTRIN 81 MG PO SCH (10:03)
[2022-09-02] MEDS: Vitamin B-12 500 MCG PO SCH (10:03)
[2022-09-02] MEDS: Protonix 40MG Tablet PO SCH ×2 (10:04→21:46)
[2022-09-02] MEDS: Lyrica 50MG PO SCH ×3 (10:04→21:46)
[2022-09-02] MEDS: BUSPAR 5 MG PO SCH ×2 (10:04→21:46)
[2022-09-02] MEDS: ZOCOR 20MG PO SCH (10:04)
[2022-09-02] MEDS: ELIQUIS 2.5 MG TABLET PO SCH ×2 (10:36→21:46)
[2022-09-02] MEDS: Tums EX 750 MG PO SCH ×2 (10:36→21:45)
[2022-09-02] MEDS: Cozaar 50 MG PO SCH (10:37)
[2022-09-02] MEDS: HUMULIN R SQ PRN (12:11)
[2022-09-02] MEDS: Singulair 10 MG PO SCH (21:47)
[2022-09-03 05:51] LABS: Hematocrit 25.3 % (35-47); Hemoglobin 7.9 g/dL (12.0-16.0); Mean Cell Volume 89.7 fL (78-100); Mean Corpuscular Hgb Concent. 31.2 g/dL (32-36); Mean Platelet Volume 12.5 fL (7.5-11.0); Platelet Count 270 x10^3/uL (150-450); Red Blood Count 2.82 x10^6/uL (4.1-5.4); Red Cell Distribution Width 14.4 % (11.5-14.0); White Blood Count 11.1 x10^3/uL (4.0-10.5)
[2022-09-03] MEDS: Advair Hfa 115/21 Common canister IH SCH ×2 (06:01→17:19)
[2022-09-03 06:09] LABS: ANION GAP 11.5 MEQ/L (5-15); Calcium 8.1 mg/dL (8.4-10.2); Creatinine 1 1.15 mg/dL (0.52-1.04); EST GLOMERULAR FILTRATION RATE 48.6 ML/MIN; Potassium 3.9 mmol/L (3.5-5.1)
[2022-09-03] MEDS: Sodium Chloride 0.9% 1000 ML 1,000 ML IV SCH ×2 (07:31→17:26)
[2022-09-03] MEDS: Lantus Insulin SQ SCH (08:15)
[2022-09-03] MEDS: HUMALOG SQ SCH ×3 (08:22→17:11)
[2022-09-03] MEDS: CLARITIN 10 MG PO SCH (08:43)
[2022-09-03] MEDS: Lyrica 50MG PO SCH ×3 (08:43→20:58)
[2022-09-03] MEDS: ZOCOR 20MG PO SCH (08:43)
[2022-09-03] MEDS: ECOTRIN 81 MG PO SCH (08:43)
[2022-09-03] MEDS: Vitamin B-12 500 MCG PO SCH (08:44)
[2022-09-03] MEDS: Cozaar 50 MG PO SCH (08:44)
[2022-09-03] MEDS: BUSPAR 5 MG PO SCH ×2 (08:44→20:57)
[2022-09-03] MEDS: Lopressor 50 MG PO SCH ×2 (08:44→20:57)
[2022-09-03] MEDS: Protonix 40MG Tablet PO SCH ×2 (08:45→20:58)
[2022-09-03] MEDS: Pepcid 20 MG PO SCH ×2 (08:45→20:58)
[2022-09-03] MEDS: Acidophilus TABLET PO SCH (08:45)
[2022-09-03] MEDS: FOLATE 1 MG PO SCH (08:45)
[2022-09-03] MEDS: SYNTHROID 125 MCG PO SCH (08:45)
[2022-09-03] MEDS: ELIQUIS 2.5 MG TABLET PO SCH ×2 (08:45→20:57)
[2022-09-03] MEDS: Cardizem CD PO SCH (08:46)
[2022-09-03] MEDS: Tums EX 750 MG PO SCH ×2 (08:46→20:56)
--- NOTE | 2022-09-03 12:25 | PCM.DS ---
Discharge Summary Date of Admission: 08/31/22 13:37 Admitting Physician: DEBI RAMOS Primary Care Provider: DEBI RAMOS Allergies Allergies albuterol Allergy (Intermediate, Verified 07/18/22 16:17) Swelling of Tongue and Lips propranolol [From Inderal LA] Allergy (Intermediate, Verified 07/18/22 16:17) red face and ears clonazepam [From Klonopin] Allergy (Verified 07/18/22 16:17) Tightness of Throat tongue swollen metoclopramide [From Reglan] Allergy (Verified 07/18/22 16:17) propranolol HCl [From Inderal LA] Allergy (Verified 07/18/22 16:17) Swelling of Tongue and Lips red face and ears Sulfa (Sulfonamide Antibiotics) Allergy (Verified 07/18/22 16:17) Swelling of Tongue and Lips throat swell,ears red terfenadine Allergy (Verified 07/18/22 16:17) venom-honey bee [bee venom (honey bee)] Allergy (Verified 07/18/22 16:17) Hives large hives zanamivir [From Relenza Diskhaler] Allergy (Verified 07/18/22 16:17) Swelling of Tongue and Lips throat tightness cilostazol [From Pletal] Adverse Reaction (Severe, Verified 07/18/22 16:17) Swelling of Tongue and Lips ticagrelor [From Brilinta] Adverse Reaction (Severe, Verified 07/18/22 16:17) Swelling of Tongue and Lips Hospital Summary - Hospital Course Hospital Course: is a 77 year old female pt of mine from [facility], currently living at [facility], who was admitted through ER with CVA. She has Hx COPD, CAD, DM II, peripheral neuropathy, hx breast ca, HLD, HTN, celiac dz, hypothyroidism, chronic renal insufficiency, and atrial fibrillation. She was found to be staring and not responding at [facility]. In ER, was talking but noted weak on RUE. Imaging showed small L basal ganglia infarct. Teleneurology was consulted, thank you. Pt was not a candidate for TPA as she is on Eliquis. She was admitted for CVA workup. Her workup has been negative aside from MRI evidence of CVA. She has been stable, has been conversant, tolerating po, and is ready to be discharged back to [facility] as soon as her insurance (re-)approves her stay. - Vitals & Intake/Output Vital Signs: Vital Signs Temperature 98.9 F 09/03/22 11:40 Pulse Rate 86 09/03/22 11:40 Respiratory Rate 17 09/03/22 11:40 Blood Pressure 142/80 09/03/22 11:40 O2 Sat by Pulse Oximetry 92 L 09/03/22 11:40 Intake & Output: Intake & Output 09/01/22 09/02/22 09/03/22 09/04/22 11:59 11:59 11:59 11:59 Intake Total 0809 1213 1260 Output Total 4651 3572 3544 Balance -8034 -378 -3840 Weight 67 kg - Lab Result Diagrams: 09/03/22 04:48 09/03/22 04:48 Lab Results-Last 24 Hrs: Lab Results-Last 24 Hours 09/02/22 09/02/22 09/03/22 Range/Units 16:08 22:04 04:48 WBC 11.1 H (4.0-10.5) x10^3/uL RBC 2.82 L (4.1-5.4) x10^6/uL Hgb 7.9 L (12.0-16.0) g/dL Hct 25.3 L (35-47) % MCV 89.7 (78-100) fL MCH 28.0 (26-32) pg MCHC 31.2 L (32-36) g/dL RDW 14.4 H (11.5-14.0) % Plt Count 270 (150-450) x10^3/uL MPV 12.5 H (7.5-11.0) fL Sodium (137-145) mmol/L Potassium (3.5-5.1) mmol/L Chloride (98-107) mmol/L Carbon Dioxide (22-30) mmol/L Anion Gap (5-15) MEQ/L BUN (7-17) mg/dL Creatinine (0.52-1.04) mg/dL Estimated GFR ML/MIN Glucose (74-106) mg/dL POC Glucometer 168 H 162 H (74 to 106) mg/dL Calcium (8.4-10.2) mg/dL 09/03/22 09/03/22 09/03/22 Range/Units 04:48 06:51 11:30 WBC (4.0-10.5) x10^3/uL RBC (4.1-5.4) x10^6/uL Hgb (12.0-16.0) g/dL Hct (35-47) % MCV (78-100) fL MCH (26-32) pg MCHC (32-36) g/dL RDW (11.5-14.0) % Plt Count (150-450) x10^3/uL MPV (7.5-11.0) fL Sodium 136 L (137-145) mmol/L Potassium 3.9 (3.5-5.1) mmol/L Chloride 104 (98-107) mmol/L Carbon Dioxide 24 (22-30) mmol/L Anion Gap 11.5 (5-15) MEQ/L BUN 29 H (7-17) mg/dL Creatinine 1.15 H (0.52-1.04) mg/dL Estimated GFR 48.6 ML/MIN Glucose 127 H (74-106) mg/dL POC Glucometer 144 H TNP (74 to 106) mg/dL Calcium 8.1 L (8.4-10.2) mg/dL Micro Results-Entire Visit: Accuchecks Date 09/03/22 Date 09/03/22 Time 08:04 - Procedures and Test Procedures and Tests throughout Hospitalization: Therapy Orders & Screens 08/31/22 13:47 OT Eval and Treat ( Order) ROUTINE Comment: Consulting Provider: Physician Instructions: Reason For Exam: PT Eval & Treat ( Order) ONCE Reason for Eval:: S/p CVA. Range of motion, strengthening, transferring Diagnosis: CVA EKG REPEAT IN AM Comment: Respiratory Therapy Consult ONCE Comment: Reason For Exam: 08/31/22 14:15 ST Eval & Treat ( Order) .as ordered Comment: Physician Instructions: Reason For Exam: Dx cva Evaluate: Yes Treat: Yes Reason for Eval: DX CVA, slurred speech, difficulty swallowing Diagnosis: cva 09/01/22 07:00 Respiratory Therapy Assessment DAILY Comment: Diagnosis: cva Discharge Exam General Appearance: no apparent distress, alert Neurologic Exam: oriented x 3, cooperative Eye Exam: eyes nml inspection Ears, Nose, Throat Exam: moist mucous membranes, other (edentulous) Neck Exam: normal inspection Respiratory Exam: normal breath sounds, lungs clear, No crackles/rales, No rhonchi, No wheezing Cardiovascular Exam: regular rate/rhythm, normal heart sounds, No murmur Gastrointestinal/Abdomen Exam: soft, normal bowel sounds, No tenderness, No distention, No mass, No guarding, No rebound Back Exam: normal inspection, No rash Final Diagnosis/Problem List - Final Discharge Diagnosis/Problem (1) CVA (cerebral vascular accident) Current Visit: Yes Status: Acute Assessment & Plan: Stable, does have some R sided weakness on exam. Would continue PT if possible. Back to [facility] today. Code(s): I63.9 - CEREBRAL INFARCTION, UNSPECIFIED (2) Anemia Current Visit: No Status: Chronic Assessment & Plan: Hgb to 7.9 today, has been stable there (was 9.4 when she came in). No active bleeding, so I believe this is at least partially dilutional. She is asymt pomatic. Would not transfuse her at this time for the above reasons, although she does have cardiac dz. Code(s): D64.9 - ANEMIA, UNSPECIFIED (3) Hyperglycemia Current Visit: No Status: Acute Assessment & Plan: Blood sugars are brittle. Code(s): R73.9 - HYPERGLYCEMIA, UNSPECIFIED (4) Diabetes mellitus Current Visit: No Status: Chronic Code(s): E11.9 - TYPE 2 DIABETES MELLITUS WITHOUT COMPLICATIONS (5) Renal insufficiency Current Visit: No Status: Chronic - Discharge Disposition: DC TO ANY "OTHER" CUSTODIAL Condition: Fair Prescriptions: Continue Montelukast Sodium 10 mg [Singulair 10 MG] 10 mg PO HS Buspirone HCl 5 mg [Buspar 5 mg] 5 mg PO BID Famotidine 20 mg [Pepcid 20 MG] 20 mg PO BID Cetirizine HCl [Zyrtec] 10 mg PO DAILY Losartan Potassium [Cozaar] 25 mg PO DAILY Levothyroxine Sodium [Unithroid] 375 mcg PO DAILY Pravastatin Sodium 20 mg PO DAILY PANTOPRAZOLE 40 mg Tablet [Protonix 40MG Tablet] 40 mg PO BID Pregabalin 50 mg [Lyrica 50MG] 50 mg PO TID Insulin Glargine [Lantus Insulin] 35 unit SQ QAM Apixaban [Eliquis 5 mg Tablet] 5 mg PO BID calcitrioL 0.25 mcg PO BID Cyanocobalamin (Vitamin B-12) [Vitamin B-12] 1,000 mcg PO DAILY Diltiazem HCl [Diltiazem 24Hr ER] 240 mg PO DAILY Insulin Aspart [Novolog] 0 unit SQ UD Lactobacillus Acidophilus [Acidophilus TABLET] 1 tab PO DAILY Metoprolol Tartrate 50 mg [Lopressor 50 MG] 50 mg PO BID Symbicort 80mcg - 4.5mcg 2 inh PO BID Aspirin EC 81 mg [Ecotrin 81 mg] 81 mg PO DAILY Folic Acid 1 mg [Folate 1 mg] 1 mg PO DAILY Ferrous Sulfate 325 mg [Feosol 325 mg] 325 mg PO BID Calcium Carbonate 750 mg [Tums EX 750 MG] 2 tab PO BID Acetaminophen [Tylenol] 650 mg PO Q6HPRN PRN PRN Reason: Pain Additional Instructions: [facility] Orders: -resume previous orders -accucheckjudy ACHS -see attached Medication List for medication orders. Follow up with: DEBI RAMOS [Primary Care Provider] -
[2022-09-03] MEDS: HUMULIN R SQ PRN (20:56)
[2022-09-03] MEDS: Singulair 10 MG PO SCH (20:58)
[2022-09-04] MEDS: Sodium Chloride 0.9% 1000 ML 1,000 ML IV SCH ×2 (07:56→15:21)
[2022-09-04] MEDS: HUMALOG SQ SCH ×2 (07:57→11:55)
[2022-09-04] MEDS: Lantus Insulin SQ SCH (07:58)
[2022-09-04] MEDS: Advair Hfa 115/21 Common canister IH SCH (08:08)
[2022-09-04] MEDS: Cardizem CD PO SCH (08:33)
[2022-09-04] MEDS: Lyrica 50MG PO SCH ×2 (08:33→15:21)
[2022-09-04] MEDS: ZOCOR 20MG PO SCH (08:33)
[2022-09-04] MEDS: FOLATE 1 MG PO SCH (08:33)
[2022-09-04] MEDS: ELIQUIS 2.5 MG TABLET PO SCH (08:33)
[2022-09-04] MEDS: SYNTHROID 125 MCG PO SCH (08:33)
[2022-09-04] MEDS: Cozaar 50 MG PO SCH (08:33)
[2022-09-04] MEDS: BUSPAR 5 MG PO SCH (08:33)
[2022-09-04] MEDS: Lopressor 50 MG PO SCH (08:33)
[2022-09-04] MEDS: Pepcid 20 MG PO SCH (08:33)
[2022-09-04] MEDS: ECOTRIN 81 MG PO SCH (08:33)
[2022-09-04] MEDS: Acidophilus TABLET PO SCH (08:33)
[2022-09-04] MEDS: Vitamin B-12 500 MCG PO SCH (08:33)
[2022-09-04] MEDS: CLARITIN 10 MG PO SCH (08:34)
[2022-09-04] MEDS: Protonix 40MG Tablet PO SCH (08:34)
[2022-09-04] MEDS: Tums EX 750 MG PO SCH (08:34)
[2022-09-04 12:17] VITALS: BP 138/61; PULSE 83; O2SAT 93
--- NOTE | 2022-09-04 14:48 | PCM.DS ---
Discharge Summary Date of Admission: 08/31/22 13:37 Admitting Physician: DEBI RAMOS Primary Care Provider: DEBI RAMOS Allergies Allergies albuterol Allergy (Intermediate, Verified 07/18/22 16:17) Swelling of Tongue and Lips propranolol [From Inderal LA] Allergy (Intermediate, Verified 07/18/22 16:17) red face and ears clonazepam [From Klonopin] Allergy (Verified 07/18/22 16:17) Tightness of Throat tongue swollen metoclopramide [From Reglan] Allergy (Verified 07/18/22 16:17) propranolol HCl [From Inderal LA] Allergy (Verified 07/18/22 16:17) Swelling of Tongue and Lips red face and ears Sulfa (Sulfonamide Antibiotics) Allergy (Verified 07/18/22 16:17) Swelling of Tongue and Lips throat swell,ears red terfenadine Allergy (Verified 07/18/22 16:17) venom-honey bee [bee venom (honey bee)] Allergy (Verified 07/18/22 16:17) Hives large hives zanamivir [From Relenza Diskhaler] Allergy (Verified 07/18/22 16:17) Swelling of Tongue and Lips throat tightness cilostazol [From Pletal] Adverse Reaction (Severe, Verified 07/18/22 16:17) Swelling of Tongue and Lips ticagrelor [From Brilinta] Adverse Reaction (Severe, Verified 07/18/22 16:17) Swelling of Tongue and Lips Hospital Summary - Hospital Course Hospital Course: is a 77 year old female pt of mine from [facility], currently living at [facility], who was admitted through ER with CVA. She has Hx COPD, CAD, DM II, peripheral neuropathy, hx breast ca, HLD, HTN, celiac dz, hypothyroidism, chronic renal insufficiency, and atrial fibrillation. She was found to be staring and not responding at [facility]. In ER, was talking but noted weak on RUE. Imaging showed small L basal ganglia infarct. Teleneurology was consulted, thank you. Pt was not a candidate for TPA as she is on Eliquis. She was admitted for CVA workup. Her workup has been negative aside from MRI evidence of CVA. She has been stable, has been conversant, tolerating po, and is ready to be discharged back to [facility] as soon as her insurance (re-)approves her stay. - Vitals & Intake/Output Vital Signs: Vital Signs Temperature 98.4 F 09/04/22 12:00 Pulse Rate 83 09/04/22 12:00 Respiratory Rate 17 09/04/22 12:00 Blood Pressure 138/61 09/04/22 12:00 O2 Sat by Pulse Oximetry 93 L 09/04/22 12:00 Intake & Output: Intake & Output 09/02/22 09/03/22 09/04/22 09/05/22 11:59 11:59 11:59 11:59 Intake Total 4075 1260 1340 360 Output Total 4550 2700 1997 1300 [facility] -[phone] - Lab Result Diagrams: 09/03/22 04:48 09/03/22 04:48 Lab Results-Last 24 Hrs: Lab Results-Last 24 Hours 09/03/22 09/03/22 09/03/22 Range/Units 14:46 20:47 Unknown POC Glucometer 187 H 211 H (74 to 106) mg/dL Hemoglobin A1c 7.01 H (4.5-6.0) % 09/04/22 09/04/22 Range/Units 08:05 11:33 POC Glucometer 131 H 162 H (74 to 106) mg/dL Hemoglobin A1c (4.5-6.0) % Micro Results-Entire Visit: Accuchecks Date 09/03/22 - Procedures and Test Procedures and Tests throughout Hospitalization: Therapy Orders & Screens 08/31/22 13:47 OT Eval and Treat ( Order) ROUTINE Comment: Consulting Provider: Physician Instructions: Reason For Exam: PT Eval & Treat ( Order) ONCE Reason for Eval:: S/p CVA. Range of motion, strengthening, transferring Diagnosis: CVA EKG REPEAT IN AM Comment: Respiratory Therapy Consult ONCE Comment: Reason For Exam: 08/31/22 14:15 ST Eval & Treat ( Order) .as ordered Comment: Physician Instructions: Reason For Exam: Dx cva Evaluate: Yes Treat: Yes Reason for Eval: DX CVA, slurred speech, difficulty swallowing Diagnosis: cva 09/01/22 07:00 Respiratory Therapy Assessment DAILY Comment: Diagnosis: cva Discharge Exam General Appearance: no apparent distress, alert Neurologic Exam: oriented x 3, cooperative Eye Exam: eyes nml inspection Ears, Nose, Throat Exam: moist mucous membranes Neck Exam: normal inspection Respiratory Exam: normal breath sounds, lungs clear, No crackles/rales, No rhonchi, No wheezing Cardiovascular Exam: regular rate/rhythm, normal heart sounds, No murmur Gastrointestinal/Abdomen Exam: soft, normal bowel sounds, No tenderness, No distention, No mass, No guarding, No rebound Extremity Exam: normal inspection, No pedal edema, No swelling Skin Exam: normal color, warm, dry, No rash Final Diagnosis/Problem List - Final Discharge Diagnosis/Problem (1) CVA (cerebral vascular accident) Current Visit: Yes Status: Acute Assessment & Plan: Stable and without major sequela. Back to rehab today. Code(s): I63.9 - CEREBRAL INFARCTION, UNSPECIFIED (2) Anemia Current Visit: No Status: Chronic Code(s): D64.9 - ANEMIA, UNSPECIFIED (3) Hyperglycemia Current Visit: No Status: Chronic Code(s): R73.9 - HYPERGLYCEMIA, UNSPECIFIED (4) Diabetes mellitus Current Visit: No Status: Chronic Code(s): E11.9 - TYPE 2 DIABETES MELLITUS WITHOUT COMPLICATIONS (5) Renal insufficiency Current Visit: No Status: Chronic - Discharge Disposition: DC TO ANY "OTHER" SKILLED NURSING Condition: Stable Prescriptions: Continue Montelukast Sodium 10 mg [Singulair 10 MG] 10 mg PO HS Buspirone HCl 5 mg [Buspar 5 mg] 5 mg PO BID Famotidine 20 mg [Pepcid 20 MG] 20 mg PO BID Cetirizine HCl [Zyrtec] 10 mg PO DAILY Losartan Potassium [Cozaar] 25 mg PO DAILY Levothyroxine Sodium [Unithroid] 375 mcg PO DAILY Pravastatin Sodium 20 mg PO DAILY PANTOPRAZOLE 40 mg Tablet [Protonix 40MG Tablet] 40 mg PO BID Pregabalin 50 mg [Lyrica 50MG] 50 mg PO TID Insulin Glargine [Lantus Insulin] 35 unit SQ QAM Apixaban [Eliquis 5 mg Tablet] 5 mg PO BID calcitrioL 0.25 mcg PO BID Cyanocobalamin (Vitamin B-12) [Vitamin B-12] 1,000 mcg PO DAILY Diltiazem HCl [Diltiazem 24Hr ER] 240 mg PO DAILY Insulin Aspart [Novolog] 0 unit SQ UD Lactobacillus Acidophilus [Acidophilus TABLET] 1 tab PO DAILY Metoprolol Tartrate 50 mg [Lopressor 50 MG] 50 mg PO BID Symbicort 80mcg - 4.5mcg 2 inh PO BID Aspirin EC 81 mg [Ecotrin 81 mg] 81 mg PO DAILY Folic Acid 1 mg [Folate 1 mg] 1 mg PO DAILY Ferrous Sulfate 325 mg [Feosol 325 mg] 325 mg PO BID Calcium Carbonate 750 mg [Tums EX 750 MG] 2 tab PO BID Acetaminophen [Tylenol] 650 mg PO Q6HPRN PRN PRN Reason: Pain Additional Instructions: [facility] Orders: -resume previous orders -accuchecks ACHS -see attached Medication List for medication orders. Follow up with: DEBI RAMOS [Primary Care Provider] -
== END 2022-09-04 16:45 ==
LOC: ED 08:42 → MED SURG 13:37
PROVIDERS: ADMIT Family Medicine; ATTEND Family Medicine
DX: I63.9 Cerebral infarction, unspecified (principal); D64.9 Anemia, unspecified; E11.65 Type 2 diabetes mellitus with hyperglycemia; N28.9 Disorder of kidney and ureter, unspecified; I12.9 Hypertensive chronic kidney disease with stage 1 through stage 4 chronic kidney disease, or unspecified chronic kidney disease; N18.2 Chronic kidney disease, stage 2 (mild); E11.22 Type 2 diabetes mellitus with diabetic chronic kidney disease; J44.9 Chronic obstructive pulmonary disease, unspecified; I25.10 Atherosclerotic heart disease of native coronary artery without angina pectoris; E78.5 Hyperlipidemia, unspecified; I48.91 Unspecified atrial fibrillation; Z79.01 Long term (current) use of anticoagulants; Z79.899 Other long term (current) drug therapy; Z20.828 Contact with and (suspected) exposure to other viral communicable diseases; Z85.3 Personal history of malignant neoplasm of breast; Z79.4 Long term (current) use of insulin
CPT/HCPCS: 0241U; 36000; 36415; 51702; 70450; 70551; 80048; 80053; 81001; 82140; 82947; 83036; 83605; 83880; 84436; 84443; 84484; 85025; 85027; 85610; 92610; 93005; 93041; 93268; 93880; 94640; 94760; 96374; 96375; 97116; 97161; 97165; 97530; 99285; 99291; G0378; J1815; J1817; A9270-GY

== ENCOUNTER 2022-11-01 16:02 | Observation (INO) | payer MEDICARE ==
--- NOTE | 2022-11-01 16:04 | ERPHSYRPT ---
- History of Present Illness Time Seen by Provider: 11/01/22 16:04 Source: patient, EMS, old records Exam Limitations: no limitations Physician History: This is a 77-year-old white female patient who lives in assisted living facility and was little lethargic. Accu-Chek was performed which read "high" patient was brought into the emergency department by paramedics. Patient has multiple medical problems and including oxygen dependent COPD, hypothyroidism, hyperlipidemia, hypertension, atrial fibrillation (Cardizem, metoprolol and Eliquis), she is diabetic. She had a history of TIAs, anxiety and peripheral neuropathy. Timing/Duration: today Severity: moderate Associated Symptoms: malaise, weakness, No shortness of breath, No chest pain Allergies/Adverse Reactions: albuterol Allergy (Intermediate, Verified 11/01/22 16:50) Swelling of Tongue and Lips propranolol [From Inderal LA] Allergy (Intermediate, Verified 11/01/22 16:50) red face and ears clonazepam [From Klonopin] Allergy (Verified 11/01/22 16:50) Tightness of Throat tongue swollen metoclopramide [From Reglan] Allergy (Verified 11/01/22 16:50) propranolol HCl [From Inderal LA] Allergy (Verified 11/01/22 16:50) Swelling of Tongue and Lips red face and ears Sulfa (Sulfonamide Antibiotics) Allergy (Verified 11/01/22 16:50) Swelling of Tongue and Lips throat swell,ears red terfenadine Allergy (Verified 11/01/22 16:50) venom-honey bee [bee venom (honey bee)] Allergy (Verified 11/01/22 16:50) Hives large hives zanamivir [From Relenza Diskhaler] Allergy (Verified 11/01/22 16:50) Swelling of Tongue and Lips throat tightness cilostazol [From Pletal] Adverse Reaction (Severe, Verified 11/01/22 16:50) Swelling of Tongue and Lips ticagrelor [From Brilinta] Adverse Reaction (Severe, Verified 11/01/22 16:50) Swelling of Tongue and Lips Home Medications: Montelukast Sodium 10 mg [Singulair 10 MG] 10 mg PO HS 01/20/18 [History] Buspirone HCl 5 mg [Buspar 5 mg] 5 mg PO BID 12/02/20 [History] Cetirizine HCl [Zyrtec] 10 mg PO DAILY 12/02/20 [History] Famotidine 20 mg [Pepcid 20 MG] 20 mg PO BID 12/02/20 [History] Levothyroxine Sodium [Unithroid] 375 mcg PO DAILY 12/02/20 [History] Losartan Potassium [Cozaar] 25 mg PO DAILY 12/02/20 [History] Insulin Glargine [Lantus Insulin] 35 unit SQ QAM 07/06/22 [History] PANTOPRAZOLE 40 mg Tablet [Protonix 40MG Tablet] 40 mg PO BID 07/06/22 [History] Pravastatin Sodium 20 mg PO DAILY 07/06/22 [History] Pregabalin 50 mg [Lyrica 50MG] 50 mg PO TID 07/06/22 [History] Apixaban [Eliquis 5 mg Tablet] 5 mg PO BID 07/16/22 [History] Cyanocobalamin (Vitamin B-12) [Vitamin B-12] 1,000 mcg PO DAILY 07/16/22 [History] Diltiazem HCl [Diltiazem 24Hr ER] 240 mg PO DAILY 07/16/22 [History] Insulin Aspart [Novolog] 0 unit SQ UD 07/16/22 [History] Lactobacillus Acidophilus [Acidophilus TABLET] 1 tab PO DAILY 07/16/22 [History] Metoprolol Tartrate 50 mg [Lopressor 50 MG] 50 mg PO BID 07/16/22 [History] Symbicort 80mcg - 4.5mcg 2 inh PO BID 07/16/22 [History] calcitrioL 0.25 mcg PO BID 07/16/22 [History] Acetaminophen [Tylenol] 650 mg PO Q6HPRN PRN 08/31/22 [History] Aspirin EC 81 mg [Ecotrin 81 mg] 81 mg PO DAILY 08/31/22 [History] Calcium Carbonate 750 mg [Tums EX 750 MG] 2 tab PO BID 08/31/22 [History] Ferrous Sulfate 325 mg [Feosol 325 mg] 325 mg PO BID 08/31/22 [History] Folic Acid 1 mg [Folate 1 mg] 1 mg PO DAILY 08/31/22 [History] Hx Tetanus, Diphtheria Vaccination/Date Given: Yes Hx Influenza Vaccination/Date Given: Yes Hx Pneumococcal Vaccination/Date Given: Yes Travel Risk - International Travel Have you traveled outside of the country in past 3 weeks: No - Coronavirus Screening Are you exhibiting any of the following symptoms?: No Close contact with a COVID-19 positive Pt in past 14-21 Days: No - Vaccine Status Have you recieved a Covid-19 vaccination: Yes Porcelain Waxer: Moderna - Vaccination Dates Date of 2cond Vaccination (if applicable): 09/2020 Comment: boost 05/27/21 - Review of Systems Constitutional: Weakness Eyes: No Symptoms Ears, Nose, & Throat: No Symptoms Respiratory: No Symptoms Cardiac: No Symptoms Abdominal/Gastrointestinal: No Symptoms Genitourinary Symptoms: No Symptoms Musculoskeletal: No Symptoms Skin: No Symptoms Neurological: Lethargy Psychological: No Symptoms Endocrine: No Symptoms Hematologic/Lymphatic: No Symptoms Immunological/Allergic: No Symptoms All Other Systems: Reviewed and Negative - Past Medical History Pertinent Past Medical History: Yes Neurological History: TIA, Peripheral Neuropathy ENT History: Other Cardiac History: Arrhythmia, Congestive Heart Failure, High Cholesterol, Hypertension, Myocardial Infarction ([place]) Respiratory History: COPD Endocrine Medical History: Diabetes Type II, Hypothyroidism Musculoskeletal History: No Pertinent History GI Medical History: Other, GERD History: No Pertinent History Psycho-Social History: Anxiety Female Reproductive Disorders: Breast Cancer Other Medical History: right eye retinal scratch November 2020, NEUROPATHY - Past Surgical History Past Surgical History: Yes Neuro Surgical History: No Pertinent History Cardiac: Other Respiratory: No Pertinent History Gastrointestinal: Hernia Repair Genitourinary: No Pertinent History Musculoskeletal: No Pertinent History Female Surgical History: Mastectomy, Lumpectomy Other Surgical History: left mastectomy 1993, right lumpectomy, right thyroid removed, left thyroid removed with goiter, pubic mass, left knee scope, valve replacement - Social History Smoking Status: Never smoker Exposure to second hand smoke: No Drug Use: none Patient Lives Alone: Yes - Nursing Vital Signs Nursing Vital Signs: Initial Vital Signs Temperature 99.9 F 11/01/22 16:12 Pulse Rate 96 H 11/01/22 16:12 Respiratory Rate 22 11/01/22 16:12 Blood Pressure 183/85 11/01/22 16:12 O2 Sat by Pulse Oximetry 97 11/01/22 16:12 Pain Scale Pain Intensity 5 - Physical Exam General Appearance: no apparent distress, alert, lethargy Eye Exam: PERRL/EOMI, eyes nml inspection Ears, Nose, Throat Exam: normal ENT inspection, moist mucous membranes Neck Exam: normal inspection, non-tender, supple, full range of motion Respiratory Exam: normal breath sounds, lungs clear, airway intact, No chest tenderness, No respiratory distress Cardiovascular Exam: regular rate/rhythm, normal heart sounds, normal peripheral pulses Gastrointestinal/Abdomen Exam: soft, normal bowel sounds, No tenderness Pelvic Exam: not done Rectal Exam: not done Back Exam: normal inspection, normal range of motion, No CVA tenderness, No vertebral tenderness Extremity Exam: normal inspection, normal range of motion, pelvis stable Neurologic Exam: casing running machine tender II-XII nml as tested, other (Weak and lethargic but arousable) Skin Exam: normal color, warm, dry Lymphatic Exam: No adenopathy SpO2 Interpretation: normal O2 Delivery: Room Air - Course Nursing assessment & vital signs reviewed: Yes EKG Interpreted by Me: RATE (98), Sinus Rhythm, NORMAL AXIS, NORMAL INTERVALS, NORMAL QRS, NORMAL ST-T, Other (No acute ischemia on today's twelve-lead EKG.) Ordered Tests: Active Orders 24 hr Category Date Time Status Program Strategist STAT Care 11/01/22 16:25 Active Catheter-Hudson Ram STAT Care 11/01/22 16:24 Active EKG-ER Only STAT Care 11/01/22 16:24 Active IV Insertion STAT Care 11/01/22 16:24 Active POCT Glucose Check STAT Care 11/01/22 16:38 Active Pulse Oximetry (ED) STAT Care 11/01/22 16:24 Active CHEST 1 VIEW (PORTABLE) Stat Exams 11/01/22 18:43 Taken HEAD WITHOUT CONTRAST [CT] Stat Exams 11/01/22 16:26 Taken ARTERIAL BLOOD GASES Urgent Lab 11/01/22 16:56 Completed CBC W DIFF Stat Lab 11/01/22 16:25 Completed CMP Stat Lab 11/01/22 16:25 Completed CULTURE,URINE Stat Lab 11/01/22 17:04 Received CULTURE,URINE Stat Lab 11/01/22 17:04 Received Lactic Acid Stat Lab 11/01/22 19:03 Received Lactic Acid Urgent Lab 11/01/22 16:56 Completed MAGNESIUM Stat Lab 11/01/22 16:25 Completed UA W/RFX UR CULTURE Stat Lab 11/01/22 17:04 Completed Transfer Order Routine Transfer 11/01/22 Ordered Medication Summary Generic Name Dose Route Start Last Admin Trade Name Pavel PRN Reason Stop Dose Admin Sodium Chloride 1,000 mls @ 100 mls/hr 11/01/22 16:30 11/01/22 19:09 Sodium Chloride 0.9% 1000 Ml IV 12/01/22 16:29 200 mls/hr .Q10H RAMON Infusion INSULIN REGULAR IN 0.9 % NACL 100 unit in 100 mls @ 9.072 mls/hr 11/01/22 19:16 11/01/22 19:18 Myxredlin 100 Unit/100 Ml Bag IV 12/01/22 19:15 0.08 unit/kg/hr .Q11H2M PRN 7 mls/hr HYPERGLYCEMIA Administration Protocol 0.1 UNIT/KG/HR Ceftriaxone Sodium/Dextrose 1 g in 50 mls @ 100 mls/hr 11/01/22 19:17 Rocephin 1 Gm-D5w 50 Ml Bag IV 11/01/22 19:46 STAT STA Discontinued Medications Generic Name Dose Route Start Last Admin Trade Name Pavel PRN Reason Stop Dose Admin INSULIN REGULAR IN 0.9 % NACL Confirm 11/01/22 19:13 Myxredlin 100 Unit/100 Ml Bag Administered 11/01/22 19:14 Dose 100 unit in 100 mls @ ud IV .STK-MED ONE Insulin Human Regular 18 unit 11/01/22 18:05 11/01/22 18:19 Insulin Regular, Human 1 Unit IV 11/01/22 18:06 18 unit STAT ONE Administration Insulin Human Regular Confirm 11/01/22 18:18 Insulin Regular, Human 1 Unit Administered 11/01/22 18:19 Dose 18 unit .ROUTE .STK-MED ONE Ondansetron HCl 4 mg 11/01/22 16:24 11/01/22 16:53 Ondansetron Hcl 4 Mg/2 Ml Vial IV 11/01/22 16:25 4 mg STAT ONE Administration Ondansetron HCl Confirm 11/01/22 16:51 Ondansetron Hcl 4 Mg/2 Ml Vial Administered 11/01/22 16:52 Dose 4 mg .ROUTE .STK-MED ONE Lab/Rad Data: Laboratory Result Diagrams 11/01/22 16:25 11/01/22 16:25 Laboratory Results 11/01/22 11/01/22 11/01/22 Range/Units 17:04 16:56 16:56 WBC (4.0-10.5) x10^3/uL RBC (4.1-5.4) x10^6/uL Hgb (12.0-16.0) g/dL Hct (35-47) % MCV (78-100) fL MCH (26-32) pg MCHC (32-36) g/dL RDW (11.5-14.0) % Plt Count (150-450) x10^3/uL MPV (7.5-11.0) fL Gran % (36.0-66.0) % Immature Gran % (Auto) (0.00-0.4) % Nucleat RBC Rel Count (0.00-0.1) % Eos # (Auto) (0-0.5) x10^3/uL Immature Gran # (Auto) (0.00-0.03) x10^3u/L Absolute Lymphs (auto) (1.0-4.6) x10^3/uL Absolute Monos (auto) (0.0-1.3) x10^3/uL Absolute Nucleated RBC (0.00-0.01) x10^3u/L Lymphocytes % (24.0-44.0) % Monocytes % (0.0-12.0) % Eosinophils % (0.00-5.0) % Basophils % (0.0-0.4) % Absolute Granulocytes (1.4-6.9) x10^3/uL Basophils # (0-0.4) x10^3/uL Puncture Site RIGHT BRACHIAL pCO2 27 L (35-45) mmHg pO2 84 (75-100) mmHg Base Excess -10.8 L (-2.0-2.0) O2 Saturation 95.2 (94-100) g/dF ABG pH 7.32 L (7.35-7.45) ABG HCO3 13.9 L* (22-28) ABG O2 Sat (Measured) 96.8 (95-100) % Jg Test NOT APPLICABLE A-a Gradient 32 a/A Ratio 0.72 Hemoglobin 11.6 Carboxyhemoglobin 1.0 (0.0-6.9) % THgb Methemoglobin 0.7 L (1.4-1.5) % Temperature 37.0 C POC O2 Flow Rate 21 % Sodium (137-145) mmol/L Potassium 5.0 (3.5-5.1) mmol/L Chloride (98-107) mmol/L Carbon Dioxide (22-30) mmol/L Anion Gap (5-15) MEQ/L BUN (7-17) mg/dL Creatinine (0.52-1.04) mg/dL Estimated GFR ML/MIN Glucose (74-106) mg/dL Lactic Acid 3.6 H (0.4-2.0) Calcium (8.4-10.2) mg/dL Magnesium (1.6-2.3) mg/dL Total Bilirubin (0.2-1.3) mg/dL AST (14-36) U/L ALT (0-35) U/L Alkaline Phosphatase (38-126) U/L Ammonia (9-30) umol/L Serum Total Protein (6.3-8.2) g/dL Albumin (3.5-5.0) g/dL Urine Color Yellow (Yellow) Urine Appearance Clear (Clear) Urine pH 5.5 (4.6-8.0) Ur Specific [place] 1.020 (1.005-1.030) Urine Protein 30 (Negative) Urine Glucose (UA) >=1000 A (Negative) mg/dL Urine Ketones 40 A (Negative) Urine Blood NHT (Negative) Urine Nitrite Negative (Negative) Urine Bilirubin Negative (Negative) Urine Urobilinogen 0.2 (0.2) mg/dL Ur Leukocyte Esterase Negative (Negative) U Hyaline Cast (Auto) NONE SEEN (0-2) /LPF Urine Microscopic RBC 0-2 (0-5) /HPF Urine Microscopic WBC 0-2 (0-5) /HPF Ur Epithelial Cells None Seen (None Seen) /HPF Urine Bacteria None Seen (None Seen) /HPF Urine Culture Reflexed YES (NO) Influenza Type A Ag (NEGATIVE) Influenza Type B Ag (NEGATIVE) RSV (PCR) (NEGATIVE) SARS-CoV-2 (PCR) (NEGATIVE) 04/10/2111/01/22 11/01/22 Range/Units 16:40 16:25 16:25 WBC (4.0-10.5) x10^3/uL RBC (4.1-5.4) x10^6/uL Hgb (12.0-16.0) g/dL Hct (35-47) % MCV (78-100) fL MCH (26-32) pg MCHC (32-36) g/dL RDW (11.5-14.0) % Plt Count (150-450) x10^3/uL MPV (7.5-11.0) fL Gran % (36.0-66.0) % Immature Gran % (Auto) (0.00-0.4) % Nucleat RBC Rel Count (0.00-0.1) % Eos # (Auto) (0-0.5) x10^3/uL Immature Gran # (Auto) (0.00-0.03) x10^3u/L Absolute Lymphs (auto) (1.0-4.6) x10^3/uL Absolute Monos (auto) (0.0-1.3) x10^3/uL Absolute Nucleated RBC (0.00-0.01) x10^3u/L Lymphocytes % (24.0-44.0) % Monocytes % (0.0-12.0) % Eosinophils % (0.00-5.0) % Basophils % (0.0-0.4) % Absolute Granulocytes (1.4-6.9) x10^3/uL Basophils # (0-0.4) x10^3/uL Puncture Site pCO2 (35-45) mmHg pO2 (75-100) mmHg Base Excess (-2.0-2.0) O2 Saturation (94-100) g/dF ABG pH (7.35-7.45) ABG HCO3 (22-28) ABG O2 Sat (Measured) (95-100) % Jg Test A-a Gradient a/A Ratio Hemoglobin Carboxyhemoglobin (0.0-6.9) % THgb Methemoglobin (1.4-1.5) % Temperature C POC O2 Flow Rate % Sodium 130 L (137-145) mmol/L Potassium 5.0 (3.5-5.1) mmol/L Chloride 88 L (98-107) mmol/L Carbon Dioxide 14 L* (22-30) mmol/L Anion Gap 34.8 H (5-15) MEQ/L BUN 52 H (7-17) mg/dL Creatinine 2.14 H (0.52-1.04) mg/dL Estimated GFR 23.8 ML/MIN Glucose 1207 H* (74-106) mg/dL Lactic Acid (0.4-2.0) Calcium 9.3 (8.4-10.2) mg/dL Magnesium 1.8 (1.6-2.3) mg/dL Total Bilirubin 0.60 (0.2-1.3) mg/dL AST 31 (14-36) U/L ALT 31 (0-35) U/L Alkaline Phosphatase 134 H (38-126) U/L Ammonia < 9 L (9-30) umol/L Serum Total Protein 8.2 (6.3-8.2) g/dL Albumin 4.8 (3.5-5.0) g/dL Urine Color (Yellow) Urine Appearance (Clear) Urine pH (4.6-8.0) Ur Specific [place] (1.005-1.030) Urine Protein (Negative) Urine Glucose (UA) (Negative) mg/dL Urine Ketones (Negative) Urine Blood (Negative) Urine Nitrite (Negative) Urine Bilirubin (Negative) Urine Urobilinogen (0.2) mg/dL Ur Leukocyte Esterase (Negative) U Hyaline Cast (Auto) (0-2) /LPF Urine Microscopic RBC (0-5) /HPF Urine Microscopic WBC (0-5) /HPF Ur Epithelial Cells (None Seen) /HPF Urine Bacteria (None Seen) /HPF Urine Culture Reflexed (NO) Influenza Type A Ag NEGATIVE (NEGATIVE) Influenza Type B Ag NEGATIVE (NEGATIVE) RSV (PCR) NEGATIVE (NEGATIVE) SARS-CoV-2 (PCR) NEGATIVE (NEGATIVE) 11/01/22 Range/Units 16:25 WBC 9.9 (4.0-10.5) x10^3/uL RBC 4.07 L (4.1-5.4) x10^6/uL Hgb 11.0 L (12.0-16.0) g/dL Hct 36.8 (35-47) % MCV 90.4 (78-100) fL MCH 27.0 (26-32) pg MCHC 29.9 L (32-36) g/dL RDW 13.4 (11.5-14.0) % Plt Count 316 (150-450) x10^3/uL MPV 13.8 H (7.5-11.0) fL Gran % 88.4 H (36.0-66.0) % Immature Gran % (Auto) 0.3 (0.00-0.4) % Nucleat RBC Rel Count 0.0 (0.00-0.1) % Eos # (Auto) 0.01 (0-0.5) x10^3/uL Immature Gran # (Auto) 0.03 (0.00-0.03) x10^3u/L Absolute Lymphs (auto) 0.77 L (1.0-4.6) x10^3/uL Absolute Monos (auto) 0.29 (0.0-1.3) x10^3/uL Absolute Nucleated RBC 0.00 (0.00-0.01) x10^3u/L Lymphocytes % 7.8 L (24.0-44.0) % Monocytes % 2.9 (0.0-12.0) % Eosinophils % 0.1 (0.00-5.0) % Basophils % 0.5 (0.0-0.4) % Absolute Granulocytes 8.71 H (1.4-6.9) x10^3/uL Basophils # 0.05 (0-0.4) x10^3/uL Puncture Site pCO2 (35-45) mmHg pO2 (75-100) mmHg Base Excess (-2.0-2.0) O2 Saturation (94-100) g/dF ABG pH (7.35-7.45) ABG HCO3 (22-28) ABG O2 Sat (Measured) (95-100) % Jg Test A-a Gradient a/A Ratio Hemoglobin Carboxyhemoglobin (0.0-6.9) % THgb Methemoglobin (1.4-1.5) % Temperature C POC O2 Flow Rate % Sodium (137-145) mmol/L Potassium (3.5-5.1) mmol/L Chloride (98-107) mmol/L Carbon Dioxide (22-30) mmol/L Anion Gap (5-15) MEQ/L BUN (7-17) mg/dL Creatinine (0.52-1.04) mg/dL Estimated GFR ML/MIN Glucose (74-106) mg/dL Lactic Acid (0.4-2.0) Calcium (8.4-10.2) mg/dL Magnesium (1.6-2.3) mg/dL Total Bilirubin (0.2-1.3) mg/dL AST (14-36) U/L ALT (0-35) U/L Alkaline Phosphatase (38-126) U/L Ammonia (9-30) umol/L Serum Total Protein (6.3-8.2) g/dL Albumin (3.5-5.0) g/dL Urine Color (Yellow) Urine Appearance (Clear) Urine pH (4.6-8.0) Ur Specific [place] (1.005-1.030) Urine Protein (Negative) Urine Glucose (UA) (Negative) mg/dL Urine Ketones (Negative) Urine Blood (Negative) Urine Nitrite (Negative) Urine Bilirubin (Negative) Urine Urobilinogen (0.2) mg/dL Ur Leukocyte Esterase (Negative) U Hyaline Cast (Auto) (0-2) /LPF Urine Microscopic RBC (0-5) /HPF Urine Microscopic WBC (0-5) /HPF Ur Epithelial Cells (None Seen) /HPF Urine Bacteria (None Seen) /HPF Urine Culture Reflexed (NO) Influenza Type A Ag (NEGATIVE) Influenza Type B Ag (NEGATIVE) RSV (PCR) (NEGATIVE) SARS-CoV-2 (PCR) (NEGATIVE) - Progress Progress: improved, re-examined Progress Note: 11/01/22 19:08 CT scan of the brain without contrast shows no acute intracranial abnormality. It is senile brain. 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 This patient medical issue is of high complexity. The level of complexity and the work-up performed is based on the review of the patient's past medical history, medication list, medication allergy list, history of present illness and findings on physical examination. Additional history was obtained by the paramedics and review of the longterm notes. The work-up performed includes CT scan of the head, urinalysis, CBC, CMP. The patient work-up results were re viewed by me. The patient is in DKA. She has a blood sugar of over 1200 and a 34 anion gap. She has a CO2 of 14. I reviewed the above work-up results with Dr. Diego who is the hospitalist this evening. Together, we agreed the patient should be admitted into the hospital on the intensive care unit and patient will be on an insulin drip. DKA protocol will be followed. 11/01/22 19:11 Chest x-ray was interpreted by me. There appears to be right basilar atelectasis. I do not think this is an infiltrate. Patient does have a low- grade fever and she is slightly acidotic on ABG. I will treat her with Rocephin and azithromycin. Discussed with Dr.: Vi Counseled pt/family regarding: lab results, diagnosis, rad results Medical Desision Making - Independent Historian Additional History obtained from: Special Education Educational Assistant/EMT - External Record(s) Reviewed Records reviewed as a part of evaluation & management: [facility] - Discussion of managment Care discussed with:: on-call "doc" Reviewed:: Test results, Need for additional workup Agreed on:: Treatment plan, decision to admit - Diagnostic Testing Diagnostic test were ordered, analyzed, and reviewed by me: Yes Radiological Interpretation: Interpreted by me, Reviewed by me, Teleradiologist Report - Risk of complications The pt has a high risk of morbidity or mortality based on: Decision regarding hospitilization or escalation of hosp level of care - Departure Departure Disposition: In-patient Admission Clinical Impression: DKA (diabetic ketoacidosis), Metabolic acidosis, Low grade fever Condition: Fair Critical Care Time: Yes Critical Care Time(excluding separately billable procedures): Critical 30-74 mins (50) Referrals: [facility]ESSIKA APDRON OF [LOCATION] - Follow up/PCP as directed
[2022-11-01] MEDS ORDERED: Zofran 4 MG/2 ML VIAL IV ONE (16:24)
[2022-11-01 16:48] LABS: Absolute Neutrophil Ct (ANC) 8.71 x10^3/uL (1.4-6.9); BASOPHIL % 0.5 % (0.0-0.4); Basophil (Absolute #) 0.05 x10^3/uL (0-0.4); Eosinophil % 0.1 % (0.00-5.0); Eosinophil (Absolute #) 0.01 x10^3/uL (0-0.5); Hematocrit 36.8 % (35-47); IMMATURE GRAN # 0.03 x10^3u/L (0.00-0.03); IMMATURE GRAN % 0.3 % (0.00-0.4); Lymphocyte (Absolute #) 0.77 x10^3/uL (1.0-4.6); Lymphocytes % 7.8 % (24.0-44.0); Mean Cell Volume 90.4 fL (78-100); Mean Corpuscular Hgb Concent. 29.9 g/dL (32-36); Mean Platelet Volume 13.8 fL (7.5-11.0); Monocyte (Absolute #) 0.29 x10^3/uL (0.0-1.3); Monocytes % 2.9 % (0.0-12.0); Neutrophil % 88.4 % (36.0-66.0); Platelet Count 316 x10^3/uL (150-450); Red Blood Count 4.07 x10^6/uL (4.1-5.4); Red Cell Distribution Width 13.4 % (11.5-14.0); White Blood Count 9.9 x10^3/uL (4.0-10.5)
[2022-11-01] MEDS ORDERED: Sodium Chloride 0.9% 1000 ML 1,000 ML ONE (16:51)
[2022-11-01] MEDS ORDERED: Zofran 4 MG/2 ML VIAL ONE (16:51)
[2022-11-01] MEDS: Sodium Chloride 0.9% 1000 ML 1,000 ML IV SCH ×2 (16:53→23:05)
[2022-11-01 16:56] LABS: ALBUMIN 4.8 g/dL (3.5-5.0); ANION GAP 34.8 MEQ/L (5-15); BILIRUBIN,TOTAL 0.6 mg/dL (0.2-1.3); Calcium 9.3 mg/dL (8.4-10.2); Creatinine 1 2.14 mg/dL (0.52-1.04); EST GLOMERULAR FILTRATION RATE 23.8 ML/MIN; MAGNESIUM 1.8 mg/dL (1.6-2.3); Total Protein 8.2 g/dL (6.3-8.2)
[2022-11-01 17:01] LABS: A-aADO2 32; ABG HEMOGLOBIN 11.6; ABG SITE RIGHT BRACHIAL; ARTERIAL BLD GAS O2 SATURATION 96.8 % (95-100); ARTERIAL BLOOD GAS BASE EXCESS -10.8 (-2.0-2.0); ARTERIAL BLOOD GAS FIO2 21 %; ARTERIAL BLOOD GAS PCO2 27 mmHg (35-45); ARTERIAL BLOOD GAS PO2 84 mmHg (75-100); ARTERIAL BLOOD GAS pH 7.32 (7.35-7.45); HCO3- 13.9 (22-28); HGB O2 SAT 95.2 g/dF (94-100); Methhemoglobin 0.7 % (1.4-1.5); paO2 pAO1 0.72
[2022-11-01 17:19] LABS: INFLUENZA A NEGATIVE (NEGATIVE); INFLUENZA B NEGATIVE (NEGATIVE); RESPIRATORY SYNCTIAL VIRUS NEGATIVE (NEGATIVE); SARS-CoV-2 Xpert Express NEGATIVE (NEGATIVE)
[2022-11-01 17:46] LABS: Appearance Clear (Clear); Bacteria None Seen /HPF (None Seen); Bilirubin Negative (Negative); Blood NHT (Negative); Epithelial Cells None Seen /HPF (None Seen); Glucose, Urine >=1000 mg/dL (Negative); Hyaline Casts NONE SEEN /LPF (0-2); Ketones 40 (Negative); Leukocyte Esterase Negative (Negative); Nitrite Negative (Negative); Ph 5.5 (4.6-8.0); Protein,Urine Dip 30 (Negative); RBC 0-2 /HPF (0-5); Urobilinogen 0.2 mg/dL (0.2); WBC 0-2 /HPF (0-5)
[2022-11-01 17:50] LABS: ADD URINE CULTURE? YES (NO)
[2022-11-01] MEDS ORDERED: HUMULIN R IV ONE (18:05)
[2022-11-01] MEDS ORDERED: HUMULIN R ONE (18:18)
[2022-11-01] MEDS ORDERED: MYXREDLIN 100 UNIT/100 ML BAG 100 UNIT/100 ML PLAST..BAG IV ONE (19:13)
[2022-11-01] MEDS ORDERED: MYXREDLIN 100 UNIT/100 ML BAG 100 UNIT/100 ML PLAST..BAG IV PRN (19:16)
[2022-11-01] MEDS ORDERED: ROCEPHIN 1 Gm-D5w 50 ml Bag** 1 G/50 ML IVPB IV STA (19:17)
[2022-11-01] MEDS ORDERED: ROCEPHIN 1 Gm-D5w 50 ml Bag** 1 G/50 ML IVPB IV ONE (19:34)
[2022-11-01] MEDS ORDERED: Zofran 4 MG/2 ML VIAL IV PRN (20:13)
[2022-11-01] MEDS ORDERED: TYLENOL 325 MG PO PRN (20:13)
[2022-11-02 05:08] LABS: Absolute Neutrophil Ct (ANC) 9.71 x10^3/uL (1.4-6.9); BASOPHIL % 0.2 % (0.0-0.4); Basophil (Absolute #) 0.03 x10^3/uL (0-0.4); Eosinophil (Absolute #) 0 x10^3/uL (0-0.5); Hematocrit 27.7 % (35-47); Hemoglobin 9.1 g/dL (12.0-16.0); IMMATURE GRAN # 0.04 x10^3u/L (0.00-0.03); IMMATURE GRAN % 0.3 % (0.00-0.4); Lymphocyte (Absolute #) 1.33 x10^3/uL (1.0-4.6); Lymphocytes % 10.8 % (24.0-44.0); Mean Cell Volume 84.2 fL (78-100); Mean Corpuscular Hemoglobin 27.7 pg (26-32); Mean Corpuscular Hgb Concent. 32.9 g/dL (32-36); Monocyte (Absolute #) 1.25 x10^3/uL (0.0-1.3); Monocytes % 10.1 % (0.0-12.0); Neutrophil % 78.6 % (36.0-66.0); Platelet Count 281 x10^3/uL (150-450); Red Blood Count 3.29 x10^6/uL (4.1-5.4); Red Cell Distribution Width 12.7 % (11.5-14.0); White Blood Count 12.4 x10^3/uL (4.0-10.5)
[2022-11-02 05:32] LABS: ALBUMIN 3.7 g/dL (3.5-5.0); BILIRUBIN,TOTAL 0.3 mg/dL (0.2-1.3); Calcium 8.1 mg/dL (8.4-10.2); EST GLOMERULAR FILTRATION RATE 16.1 ML/MIN; Potassium 3.4 mmol/L (3.5-5.1); Total Protein 6.8 g/dL (6.3-8.2)
[2022-11-02] MEDS ORDERED: Sodium Chloride 0.9% 1000 ML 1,000 ML ONE (06:47)
[2022-11-02] MEDS: Sodium Chloride 0.9% 1000 ML 1,000 ML IV SCH ×3 (06:50→21:03)
[2022-11-02] MEDS: POTASSIUM CHLORIDE 20 mEq IN WATER 100ML 100 ML IV SCH ×2 (07:30→09:19)
[2022-11-02] MEDS ORDERED: K-LYTE PO ONE (07:30)
[2022-11-02] MEDS: Zithromax 500 MG/ 250 ML NaCl Premix 500 MG/250 ML IVPB IV SCH (07:31)
--- NOTE | 2022-11-02 08:35 | XRAY ---
Indication: Altered mental status. Multiple contiguous axial images obtained through the head without contrast. Comparison: August 31, 2022. There is age-appropriate global atrophy, mild periventricular degenerative micro-ischemia bilaterally, and remote lacunar infarcts left basal ganglia/right external capsule. No acute intracranial hemorrhage, abnormal extra-axial fluid collection, or mass effect. Fourth ventricle is midline without hydrocephalus. Bony calvarium intact. Visualized paranasal sinuses and mastoid air cells are clear. Impression: Nonacute senile brain with remote lacunar infarcts.
--- NOTE | 2022-11-02 08:37 | XRAY ---
Indication: Fever. Altered mental status. Comparison: July 18, 2022 Portable chest demonstrates new minimal lingula subsegmental atelectasis/scarring. No focal infiltrate, consolidation, or large effusion. Heart not enlarged again with cardiac valve replacement surgery. Bony thorax intact again with osteopenia and degenerative changes. Impression: Nonacute chest with chronic features.
[2022-11-02] MEDS ORDERED: MEDICATION INTERVENTION MC SCH (10:00)
[2022-11-02] MEDS ORDERED: NON-FORMULARY ITEM (Apixaban*** [Eliquis 5 Mg Tablet***] 5 MG Tablet) PO SCH (10:00)
[2022-11-02] MEDS ORDERED: NON-FORMULARY ITEM (Losartan Potassium [Cozaar] 25 MG Tablet) PO SCH (10:00)
[2022-11-02] MEDS ORDERED: CALCITRIOL 0.25 MCG PO SCH (10:00)
[2022-11-02] MEDS ORDERED: NON-FORMULARY ITEM (Cetirizine Hcl [Zyrtec] 10 MG Tablet) PO SCH (10:00)
[2022-11-02] MEDS ORDERED: SYMBICORT PO SCH (10:00)
[2022-11-02] MEDS ORDERED: CYANOCOBALAMIN 1000 MCG PO SCH (10:00)
[2022-11-02] MEDS: Tums EX 750 MG PO SCH ×2 (10:04→20:14)
[2022-11-02] MEDS: Pepcid 20 MG PO SCH ×2 (10:04→20:14)
[2022-11-02] MEDS: Acidophilus TABLET PO SCH (10:04)
[2022-11-02] MEDS: CLARITIN 10 MG PO SCH (10:04)
[2022-11-02] MEDS: FOLATE 1 MG PO SCH (10:04)
[2022-11-02] MEDS: FEOSOL 325 MG PO SCH ×2 (10:04→20:15)
[2022-11-02] MEDS: ECOTRIN 81 MG PO SCH (10:04)
[2022-11-02] MEDS: Vitamin B-12 500 MCG PO SCH (10:04)
[2022-11-02] MEDS: BUSPAR 5 MG PO SCH ×2 (10:05→20:14)
[2022-11-02] MEDS: SYNTHROID 100 MCG PO SCH (10:05)
[2022-11-02] MEDS: ELIQUIS 2.5 MG TABLET PO SCH ×2 (10:05→20:14)
[2022-11-02] MEDS: Lyrica 50MG PO SCH ×3 (10:05→20:14)
[2022-11-02] MEDS: Advair Hfa 115/21 Common canister IH SCH ×2 (10:17→19:03)
[2022-11-02] MEDS: HUMALOG SQ PRN ×2 (11:23→13:11)
[2022-11-02] MEDS: Cozaar 50 MG PO SCH (11:29)
[2022-11-02 14:31] LABS: ANION GAP 19.7 MEQ/L (5-15); Calcium 7.8 mg/dL (8.4-10.2); Creatinine 1 3.26 mg/dL (0.52-1.04); EST GLOMERULAR FILTRATION RATE 14.6 ML/MIN; Potassium 3.7 mmol/L (3.5-5.1)
[2022-11-02] MEDS: Lantus Insulin SQ SCH (20:12)
[2022-11-02] MEDS: Singulair 10 MG PO SCH (20:14)
[2022-11-02] MEDS: ROCEPHIN 1 Gm-D5w 50 ml Bag** 1 G/50 ML IVPB IV SCH (21:01)
[2022-11-02 22:15] LABS: ANION GAP 15.6 MEQ/L (5-15); Creatinine 1 2.85 mg/dL (0.52-1.04); EST GLOMERULAR FILTRATION RATE 17.1 ML/MIN; Potassium 3.6 mmol/L (3.5-5.1)
[2022-11-03] MEDS: Sodium Chloride 0.9% 1000 ML 1,000 ML IV SCH ×3 (03:45→16:47)
[2022-11-03 05:09] LABS: BASOPHIL % 0.3 % (0.0-0.4); Basophil (Absolute #) 0.03 x10^3/uL (0-0.4); Hemoglobin 8.3 g/dL (12.0-16.0); IMMATURE GRAN # 0.03 x10^3u/L (0.00-0.03); IMMATURE GRAN % 0.3 % (0.00-0.4); Lymphocyte (Absolute #) 1.66 x10^3/uL (1.0-4.6); Lymphocytes % 16.9 % (24.0-44.0); Mean Cell Volume 87.4 fL (78-100); Mean Corpuscular Hemoglobin 26.9 pg (26-32); Mean Corpuscular Hgb Concent. 30.7 g/dL (32-36); Mean Platelet Volume 12.7 fL (7.5-11.0); Monocyte (Absolute #) 0.68 x10^3/uL (0.0-1.3); Monocytes % 6.9 % (0.0-12.0); Neutrophil % 73.6 % (36.0-66.0); Platelet Count 195 x10^3/uL (150-450); Red Blood Count 3.09 x10^6/uL (4.1-5.4); Red Cell Distribution Width 13.1 % (11.5-14.0); White Blood Count 9.8 x10^3/uL (4.0-10.5)
[2022-11-03] MEDS: Lopressor 50 MG PO SCH ×2 (05:23→21:21)
[2022-11-03 05:26] LABS: ALBUMIN 2.9 g/dL (3.5-5.0); ANION GAP 18.2 MEQ/L (5-15); BILIRUBIN,TOTAL 0.2 mg/dL (0.2-1.3); Calcium 7.2 mg/dL (8.4-10.2); Creatinine 1 2.52 mg/dL (0.52-1.04); EST GLOMERULAR FILTRATION RATE 19.7 ML/MIN; MAGNESIUM 1.5 mg/dL (1.6-2.3); Total Protein 5.7 g/dL (6.3-8.2)
[2022-11-03] MEDS: Advair Hfa 115/21 Common canister IH SCH ×2 (07:26→18:55)
[2022-11-03] MEDS: HUMALOG SQ PRN ×3 (08:01→12:00)
[2022-11-03] MEDS: HUMALOG SQ SCH ×3 (08:49→16:46)
[2022-11-03] MEDS: ELIQUIS 2.5 MG TABLET PO SCH ×2 (09:02→21:21)
[2022-11-03] MEDS: ECOTRIN 81 MG PO SCH (09:02)
[2022-11-03] MEDS: Cardizem CD PO SCH (09:02)
[2022-11-03] MEDS: CLARITIN 10 MG PO SCH (09:02)
[2022-11-03] MEDS: Lyrica 50MG PO SCH ×3 (09:02→21:21)
[2022-11-03] MEDS: FOLATE 1 MG PO SCH (09:02)
[2022-11-03] MEDS: FEOSOL 325 MG PO SCH ×2 (09:02→21:21)
[2022-11-03] MEDS: BUSPAR 5 MG PO SCH ×2 (09:03→21:21)
[2022-11-03] MEDS: SYNTHROID 100 MCG PO SCH (09:03)
[2022-11-03] MEDS: Tums EX 750 MG PO SCH ×2 (09:03→21:24)
[2022-11-03] MEDS: Vitamin B-12 500 MCG PO SCH (09:03)
[2022-11-03] MEDS: Pepcid 20 MG PO SCH ×2 (09:03→21:21)
[2022-11-03] MEDS: Cozaar 50 MG PO SCH (09:03)
[2022-11-03] MEDS: Acidophilus TABLET PO SCH (09:03)
[2022-11-03] MEDS: Zithromax 500 MG/ 250 ML NaCl Premix 500 MG/250 ML IVPB IV SCH (09:04)
--- NOTE | 2022-11-03 09:23 | XRAY ---
Indication: Pneumonia. Comparison: November 01, 2022 Portable chest rotated. New minimal pulmonary edema without consolidation/effusion. Remaining heart and lungs unchanged again with incidental minimal lingula subsegmental atelectasis/scarring and cardiac valve replacement surgery.
[2022-11-03 15:54] LABS: ANION GAP 17.4 MEQ/L (5-15); Calcium 7.8 mg/dL (8.4-10.2); Creatinine 1 2.16 mg/dL (0.52-1.04); EST GLOMERULAR FILTRATION RATE 23.5 ML/MIN; Potassium 3.9 mmol/L (3.5-5.1)
[2022-11-03] MEDS: Singulair 10 MG PO SCH (21:21)
[2022-11-03] MEDS: Lantus Insulin SQ SCH (21:21)
[2022-11-03] MEDS: ROCEPHIN 1 Gm-D5w 50 ml Bag** 1 G/50 ML IVPB IV SCH (21:31)
[2022-11-03] MEDS ORDERED: APRESOLINE 20 MG/ML INJ IV ONE (23:34)
[2022-11-04] MEDS: Sodium Chloride 0.9% 1000 ML 1,000 ML IV SCH ×2 (00:12→11:32)
[2022-11-04] MEDS ORDERED: TRANDATE 20 MG/4 ML SYRINGE IV ONE ×2 (00:44→03:43)
[2022-11-04] MEDS: TYLENOL 325 MG PO PRN ×2 (03:19→20:26)
[2022-11-04 03:38] LABS: Hematocrit 32.2 % (35-47); Hemoglobin 10.4 g/dL (12.0-16.0); Mean Cell Volume 84.1 fL (78-100); Mean Corpuscular Hemoglobin 27.2 pg (26-32); Mean Corpuscular Hgb Concent. 32.3 g/dL (32-36); Mean Platelet Volume 12.4 fL (7.5-11.0); Platelet Count 242 x10^3/uL (150-450); Red Blood Count 3.83 x10^6/uL (4.1-5.4); Red Cell Distribution Width 13.1 % (11.5-14.0); White Blood Count 13.3 x10^3/uL (4.0-10.5)
[2022-11-04 03:48] LABS: ANION GAP 17.3 MEQ/L (5-15); Calcium 8.5 mg/dL (8.4-10.2); Creatinine 1 1.87 mg/dL (0.52-1.04); EST GLOMERULAR FILTRATION RATE 27.7 ML/MIN; Potassium 3.6 mmol/L (3.5-5.1)
[2022-11-04] MEDS: Advair Hfa 115/21 Common canister IH SCH ×2 (05:50→18:50)
[2022-11-04] MEDS: HUMALOG SQ SCH ×3 (08:35→16:09)
[2022-11-04] MEDS ORDERED: Levofloxacin 500MG/100ML D5W 500 MG/100 ML BAG IV SCH (10:00)
[2022-11-04] MEDS: SYNTHROID 100 MCG PO SCH (10:08)
[2022-11-04] MEDS: Cardizem CD PO SCH (10:08)
[2022-11-04] MEDS: Vitamin B-12 500 MCG PO SCH (10:08)
[2022-11-04] MEDS: Cozaar 50 MG PO SCH (10:08)
[2022-11-04] MEDS: CLARITIN 10 MG PO SCH (10:09)
[2022-11-04] MEDS: FEOSOL 325 MG PO SCH ×2 (10:09→21:46)
[2022-11-04] MEDS: Lyrica 50MG PO SCH ×3 (10:09→21:46)
[2022-11-04] MEDS: ECOTRIN 81 MG PO SCH (10:09)
[2022-11-04] MEDS: BUSPAR 5 MG PO SCH ×2 (10:09→21:46)
[2022-11-04] MEDS: Pepcid 20 MG PO SCH ×2 (10:09→21:46)
[2022-11-04] MEDS: FOLATE 1 MG PO SCH (10:09)
[2022-11-04] MEDS: Lopressor 50 MG PO SCH ×2 (10:09→21:46)
[2022-11-04] MEDS: Tums EX 750 MG PO SCH ×2 (10:09→21:49)
[2022-11-04] MEDS: ELIQUIS 2.5 MG TABLET PO SCH ×2 (10:09→21:46)
[2022-11-04] MEDS: Acidophilus TABLET PO SCH (10:09)
[2022-11-04] MEDS: Singulair 10 MG PO SCH (21:46)
[2022-11-04] MEDS: Lantus Insulin SQ SCH (21:50)
[2022-11-05] MEDS: TRANDATE 20 MG/4 ML SYRINGE IV PRN ×2 (00:58→04:58)
[2022-11-05 04:43] LABS: Hematocrit 32.4 % (35-47); Hemoglobin 10.5 g/dL (12.0-16.0); Mean Cell Volume 85.3 fL (78-100); Mean Corpuscular Hemoglobin 27.6 pg (26-32); Mean Corpuscular Hgb Concent. 32.4 g/dL (32-36); Mean Platelet Volume 12.8 fL (7.5-11.0); Platelet Count 210 x10^3/uL (150-450); Red Cell Distribution Width 13.2 % (11.5-14.0); White Blood Count 7.2 x10^3/uL (4.0-10.5)
[2022-11-05 04:57] LABS: ANION GAP 17.1 MEQ/L (5-15); Creatinine 1 1.75 mg/dL (0.52-1.04); Potassium 4.2 mmol/L (3.5-5.1)
[2022-11-05] MEDS: Advair Hfa 115/21 Common canister IH SCH (06:56)
[2022-11-05] MEDS: FEOSOL 325 MG PO SCH (09:26)
[2022-11-05] MEDS: ELIQUIS 2.5 MG TABLET PO SCH (09:26)
[2022-11-05] MEDS: HUMALOG SQ SCH ×2 (09:26→11:48)
[2022-11-05] MEDS: BUSPAR 5 MG PO SCH (09:26)
[2022-11-05] MEDS: Pepcid 20 MG PO SCH (09:26)
[2022-11-05] MEDS: Lyrica 50MG PO SCH (09:26)
[2022-11-05] MEDS: ECOTRIN 81 MG PO SCH (09:26)
[2022-11-05] MEDS: FOLATE 1 MG PO SCH (09:27)
[2022-11-05] MEDS: Cardizem CD PO SCH (09:27)
[2022-11-05] MEDS: CLARITIN 10 MG PO SCH (09:27)
[2022-11-05] MEDS: Vitamin B-12 500 MCG PO SCH (09:27)
[2022-11-05] MEDS: SYNTHROID 100 MCG PO SCH (09:27)
[2022-11-05] MEDS: Acidophilus TABLET PO SCH (09:27)
[2022-11-05] MEDS: Lopressor 50 MG PO SCH (09:27)
[2022-11-05] MEDS: Cozaar 50 MG PO SCH (09:28)
[2022-11-05] MEDS: Tums EX 750 MG PO SCH (09:29)
[2022-11-05] MEDS ORDERED: Levaquin 250MG/50ML D5W 250 MG/50 ML BAG IV SCH (10:00)
[2022-11-05 11:18] VITALS: BP 175/89; PULSE 74; O2SAT 97
[2022-11-05] MEDS: HUMALOG SQ PRN (11:48)
--- NOTE | 2022-11-22 23:20 | PCM.DS ---
Discharge Summary Date of Admission: 11/01/22 19:49 Date of Discharge: 11/05/22 Admitting Physician: MICHAEL DE LEON DO Primary Care Provider: JOSE SOLIS Allergies Allergies albuterol Allergy (Intermediate, Verified 11/01/22 16:50) Swelling of Tongue and Lips propranolol [From Inderal LA] Allergy (Intermediate, Verified 11/01/22 16:50) red face and ears clonazepam [From Klonopin] Allergy (Verified 11/01/22 16:50) Tightness of Throat tongue swollen metoclopramide [From Reglan] Allergy (Verified 11/01/22 16:50) propranolol HCl [From Inderal LA] Allergy (Verified 11/01/22 16:50) Swelling of Tongue and Lips red face and ears Sulfa (Sulfonamide Antibiotics) Allergy (Verified 11/01/22 16:50) Swelling of Tongue and Lips throat swell,ears red terfenadine Allergy (Verified 11/01/22 16:50) venom-honey bee [bee venom (honey bee)] Allergy (Verified 11/01/22 16:50) Hives large hives zanamivir [From Relenza Diskhaler] Allergy (Verified 11/01/22 16:50) Swelling of Tongue and Lips throat tightness cilostazol [From Pletal] Adverse Reaction (Severe, Verified 11/01/22 16:50) Swelling of Tongue and Lips ticagrelor [From Brilinta] Adverse Reaction (Severe, Verified 11/01/22 16:50) Swelling of Tongue and Lips Hospital Summary - Hospital Course Hospital Course: Pt. admitted to ICU for treatment of DKA, pt. responded well to treatment was able to stabilize, her return her to ada diet and adjust medications, pt. was feeling much better and stronger and ready to be discharged back to assisted living. - Vitals & Intake/Output Vital Signs: Vital Signs Temperature 97.9 F 11/05/22 11:00 Pulse Rate 74 11/05/22 11:00 Respiratory Rate 16 11/05/22 11:00 Blood Pressure 175/89 11/05/22 11:00 O2 Sat by Pulse Oximetry 97 11/05/22 11:00 - Lab Result Diagrams: 11/05/22 04:38 11/05/22 04:38 Micro Results-Entire Visit: Microbiology 11/01/22 17:04 Urine Culture - Final Catherized Enterococcus Faecalis - Procedures and Test Procedures and Tests throughout Hospitalization: Therapy Orders & Screens 11/02/22 10:19 Respiratory Therapy Assessment DAILY Comment: Diagnosis: dka 11/04/22 04:35 Oxygen Nasal Cannula 2 lpm Comment: Diagnosis: DKA Discharge Exam General Appearance: no apparent distress, alert Neurologic Exam: alert, oriented x 3, cooperative, normal mood/affect, nml ce rebellar function, sensation nml, No motor deficits Eye Exam: PERRL, EOMI, eyes nml inspection Ears, Nose, Throat Exam: normal ENT inspection, pharynx normal, moist mucous membranes Neck Exam: normal inspection, non-tender, supple, full range of motion Respiratory Exam: normal breath sounds, lungs clear, No respiratory distress Cardiovascular Exam: regular rate/rhythm, normal heart sounds Gastrointestinal/Abdomen Exam: soft, No tenderness, No mass Pelvic Exam: deferred Rectal Exam: deferred Back Exam: normal inspection, normal range of motion, No CVA tenderness, No ping tebral tenderness Extremity Exam: normal inspection, normal range of motion Skin Exam: normal color, warm, dry Final Diagnosis/Problem List - Final Discharge Diagnosis/Problem (1) DKA (diabetic ketoacidosis) Status: Acute Code(s): E11.10 - TYPE 2 DIABETES MELLITUS WITH KETOACIDOSIS WITHOUT COMA (2) SUSAN (acute respiratory infection) Status: Acute Code(s): J22 - UNSPECIFIED ACUTE LOWER RESPIRATORY INFECTION - Discharge Discharge Date: 11/05/22 Disposition: Home, Self-Care Condition: Fair Prescriptions: New Levofloxacin [Levofloxacin 500 MG Tablet] 500 mg PO DAILY 9 Days #9 tablet Continue Montelukast Sodium 10 mg [Singulair 10 MG] 10 mg PO HS Buspirone HCl 5 mg [Buspar 5 mg] 5 mg PO BID Famotidine 20 mg [Pepcid 20 MG] 20 mg PO BID Cetirizine HCl [Zyrtec] 10 mg PO DAILY Losartan Potassium [Cozaar] 25 mg PO DAILY Pregabalin 50 mg [Lyrica 50MG] 50 mg PO TID Insulin Glargine [Lantus Insulin] 30 unit SQ QAM Apixaban [Eliquis 5 mg Tablet] 5 mg PO BID calcitrioL 0.25 mcg PO BID Cyanocobalamin (Vitamin B-12) [Vitamin B-12] 1,000 mcg PO DAILY Diltiazem HCl [Diltiazem 24Hr ER] 240 mg PO DAILY Lactobacillus Acidophilus [Acidophilus TABLET] 1 tab PO DAILY Symbicort 80mcg - 4.5mcg 2 inh PO BID Aspirin EC 81 mg [Ecotrin 81 mg] 81 mg PO DAILY Folic Acid 1 mg [Folate 1 mg] 1 mg PO DAILY Ferrous Sulfate 325 mg [Feosol 325 mg] 325 mg PO BID Calcium Carbonate 750 mg [Tums EX 750 MG] 2 tab PO BID Acetaminophen [Tylenol] 650 mg PO Q6HPRN PRN PRN Reason: Pain Levothyroxine Sodium [Synthroid] 250 mcg PO DAILY Insulin Aspart [Novolog] 6 unit SQ 1200,1700 Insulin Aspart [Novolog] 12 unit SQ 0800 Furosemide 40 mg [Lasix 40 MG] 40 mg PO DAILY Changed Metoprolol Tartrate 50 mg [Lopressor 50 MG] 100 mg PO BID #60 tab Instructions: Preventing Falls in Older Adults, Diabetic Ketoacidosis (DC), How to Prevent High Blood Sugar Emergencies in Diabetes Follow up with: DEBI RAMOS [Family Provider] - 11/11/22 11:15 am
== END 2022-11-05 13:00 | disposition home or self-care (01) ==
LOC: ED 16:02 → ICU 19:49 → INTOOBSV 19:49 → MED SURG 11-03 09:18
PROVIDERS: ADMIT Family Medicine; ATTEND Family Medicine
DX: E11.10 Type 2 diabetes mellitus with ketoacidosis without coma (principal); J22 Unspecified acute lower respiratory infection; J44.9 Chronic obstructive pulmonary disease, unspecified; E03.9 Hypothyroidism, unspecified; E78.5 Hyperlipidemia, unspecified; I48.91 Unspecified atrial fibrillation; I11.0 Hypertensive heart disease with heart failure; I50.9 Heart failure, unspecified; Z99.81 Dependence on supplemental oxygen; Z79.899 Other long term (current) drug therapy; Z79.01 Long term (current) use of anticoagulants; Z85.3 Personal history of malignant neoplasm of breast; Z20.828 Contact with and (suspected) exposure to other viral communicable diseases
CPT/HCPCS: 0241U; 36000; 36415; 36600; 51702; 70450; 71045; 80048; 80053; 81001; 82140; 82375; 82803; 82947; 83605; 83735; 83880; 84443; 85025; 85027; 87077; 87086; 87186; 93005; 93041; 93268; 94640; 94760; 94762; 96374; 96375; 99285; 99291; G0378; J0360; J0456; J0696; J1815; J1817; J1956; J2405; J3480; A9270-GY

== ENCOUNTER 2023-09-20 20:17 | Observation (INO) | payer MEDICARE ==
[2023-09-20] MEDS ORDERED: CARDIZEM DRIP 100 MG/100 ML D5W 100 ML IV PRN (20:38)
--- NOTE | 2023-09-20 20:39 | ERPHSYRPT ---
- History of Present Illness Time Seen by Provider: 09/20/23 20:37 Source: patient Physician History: 78-year-old female presents to our ED via EMS for evaluation of abdominal pain. Patient states shortly after the abdominal pain started she developed shortness of breath. Upon arrival to our ED patient was tachycardic A-fib with RVR. Abdominal pain is diffuse. No nausea vomiting or diaphoresis. Symptoms are progressive. Symptoms are moderate in intensity. No specific worsening or improving factors. Patient denies a history of the same. She voices no other complaints or concerns at this time. Portions of this note were created with voice recognition technology. There may be grammatical, spelling, punctuation or sound alike errors Timing/Duration: today Severity: moderate Associated Symptoms: denies symptoms, vomiting Allergies/Adverse Reactions: albuterol Allergy (Intermediate, Verified 09/21/23 02:12) Swelling of Tongue and Lips propranolol [From Inderal LA] Allergy (Intermediate, Verified 09/21/23 02:12) red face and ears levofloxacin [From Levaquin] Allergy (Unknown, Verified 09/21/23 02:12) clonazepam [From Klonopin] Allergy (Verified 09/21/23 02:12) Tightness of Throat tongue swollen metoclopramide [From Reglan] Allergy (Verified 09/21/23 02:12) propranolol HCl [From Inderal LA] Allergy (Verified 09/21/23 02:12) Swelling of Tongue and Lips red face and ears Sulfa (Sulfonamide Antibiotics) Allergy (Verified 09/21/23 02:12) Swelling of Tongue and Lips throat swell,ears red terfenadine Allergy (Verified 09/21/23 02:12) venom-honey bee [bee venom (honey bee)] Allergy (Verified 09/21/23 02:12) Hives large hives zanamivir [From Relenza Diskhaler] Allergy (Verified 09/21/23 02:12) Swelling of Tongue and Lips throat tightness cilostazol [From Pletal] Adverse Reaction (Severe, Verified 09/21/23 02:12) Swelling of Tongue and Lips ticagrelor [From Brilinta] Adverse Reaction (Severe, Verified 11/01/22 16:50) Swelling of Tongue and Lips Home Medications: Montelukast Sodium 10 mg [Singulair 10 MG] 10 mg PO HS 06/22/18 [History] Buspirone HCl 5 mg [Buspar 5 mg] 5 mg PO BID 12/02/20 [History] Cetirizine HCl [Zyrtec] 10 mg PO DAILY 12/02/20 [History] Famotidine 20 mg [Pepcid 20 MG] 20 mg PO BID 12/02/20 [History] Losartan Potassium [Cozaar] 25 mg PO DAILY 12/02/20 [History] Insulin Glargine [Lantus Insulin] 30 unit SQ QAM 07/06/22 [History] Pregabalin 50 mg [Lyrica 50MG] 50 mg PO TID 07/06/22 [History] Apixaban [Eliquis 5 mg Tablet] 5 mg PO BID 07/16/22 [History] Cyanocobalamin (Vitamin B-12) [Vitamin B-12] 1,000 mcg PO DAILY 07/16/22 [History] Lactobacillus Acidophilus [Acidophilus TABLET] 1 tab PO DAILY 07/16/22 [History] Symbicort 80mcg - 4.5mcg 2 inh PO BID 07/16/22 [History] calcitrioL 0.25 mcg PO BID 07/16/22 [History] dilTIAZem HCL [Diltiazem 24Hr ER] 240 mg PO DAILY 07/16/22 [History] Acetaminophen [Tylenol] 650 mg PO Q6HPRN PRN 08/31/22 [History] Aspirin EC 81 mg [Ecotrin 81 mg] 81 mg PO DAILY 08/31/22 [History] Calcium Carbonate 750 mg [Tums EX 750 MG] 2 tab PO BID 08/31/22 [History] Ferrous Sulfate 325 mg [Feosol 325 mg] 325 mg PO BID 08/31/22 [History] Folic Acid 1 mg [Folate 1 mg] 1 mg PO DAILY 08/31/22 [History] Furosemide 40 mg [Lasix 40 MG] 40 mg PO DAILY 11/02/22 [History] Insulin Aspart [Novolog] 6 unit SQ 1200,1700 11/02/22 [History] Insulin Aspart [Novolog] 12 unit SQ 0800 11/02/22 [History] Levothyroxine Sodium [Synthroid] 250 mcg PO DAILY 11/02/22 [History] Hx Tetanus, Diphtheria Vaccination/Date Given: Yes Hx Influenza Vaccination/Date Given: Yes Hx Pneumococcal Vaccination/Date Given: Yes Travel Risk - Vaccine Status Have you recieved a Covid-19 vaccination: Yes Agricultural Consultant: Moderna - Vaccination Dates Date of 2cond Vaccination (if applicable): 09/2020 Comment: boost 05/27/21 - Review of Systems Constitutional: No Symptoms, No Fever, No Chills Eyes: No Symptoms Ears, Nose, & Throat: No Symptoms Respiratory: No Symptoms, No Cough, No Dyspnea Cardiac: No Symptoms, No Chest Pain, No Edema, No Syncope Abdominal/Gastrointestinal: No Symptoms, No Abdominal Pain, No Nausea, No Vomiti ng, No Diarrhea Genitourinary Symptoms: No Symptoms, No Dysuria Musculoskeletal: No Symptoms, No Back Pain, No Neck Pain Skin: No Symptoms, No Rash Neurological: No Symptoms, No Dizziness, No Focal Weakness, No Sensory Changes Psychological: No Symptoms Endocrine: No Symptoms Hematologic/Lymphatic: No Symptoms Immunological/Allergic: No Symptoms All Other Systems: Unable due to condition - Past Medical History Pertinent Past Medical History: Yes Neurological History: TIA, Peripheral Neuropathy ENT History: Other Cardiac History: Arrhythmia, Congestive Heart Failure, High Cholesterol, Hypertension, Myocardial Infarction (NM) Respiratory History: COPD Endocrine Medical History: Diabetes Type II, Hypothyroidism Musculoskeletal History: No Pertinent History GI Medical History: Other, GERD History: No Pertinent History Psycho-Social History: Anxiety Female Reproductive Disorders: Breast Cancer Other Medical History: right eye retinal scratch November 2020, NEUROPATHY - Past Surgical History Past Surgical History: Yes Neuro Surgical History: No Pertinent History Cardiac: Other Respiratory: No Pertinent History Gastrointestinal: Hernia Repair Genitourinary: No Pertinent History Musculoskeletal: No Pertinent History Female Surgical History: Mastectomy, Lumpectomy Other Surgical History: left mastectomy 1993, right lumpectomy, right thyroid removed, left thyroid removed with goiter, pubic mass, left knee scope, valve replacement - Social History Smoking Status: Never smoker Exposure to second hand smoke: No Drug Use: none Patient Lives Alone: Yes - Nursing Vital Signs Nursing Vital Signs: Initial Vital Signs Temperature 103.5 F 09/20/23 20:19 Pulse Rate 177 H 09/20/23 20:19 Respiratory Rate 44 H 09/20/23 20:19 O2 Sat by Pulse Oximetry 88 L 09/20/23 20:19 Pain Scale Pain Intensity 0 - Physical Exam General Appearance: no apparent distress, alert Eye Exam: PERRL/EOMI, eyes nml inspection Ears, Nose, Throat Exam: moist mucous membranes Neck Exam: normal inspection, non-tender, supple, full range of motion Respiratory Exam: normal breath sounds, lungs clear, airway intact, No respiratory distress Cardiovascular Exam: regular rate/rhythm, normal heart sounds, normal peripheral pulses Gastrointestinal/Abdomen Exam: soft, normal bowel sounds, other (Diffuse abdominal pain), No tenderness, No mass Back Exam: normal inspection, normal range of motion, No CVA tenderness, No vertebral tenderness Extremity Exam: normal inspection, normal range of motion, pelvis stable Neurologic Exam: alert, oriented x 3, cooperative, normal mood/affect, nml cerebellar function, nml station & gait, sensation nml, No motor deficits Skin Exam: normal color, warm, dry, No rash Lymphatic Exam: No adenopathy SpO2 Interpretation: normal O2 Delivery: Room Air - Course Nursing assessment & vital signs reviewed: Yes EKG Interpreted by Me: RATE, A-fib, NORMAL AXIS, NORMAL INTERVALS, NORMAL QRS - CT Exams Chest CT Interpretation: Tele-radiologist Report (Bilateral pulmonary mosaic groun dglass changes and mild bilateral peribronchial soft tissue thickening in the lower lobes transverse cardiac diameter is enlarged with aortic valve repair. This may be due to atypical pulmonary infection another possibility would be early pulmonary edema.) Ordered Tests: Active Orders 24 hr Category Date Time Status Hot End Operator STAT Care 09/20/23 20:34 Active EKG-ER Only STAT Care 09/20/23 20:33 Active IV Insertion STAT Care 09/20/23 20:33 Active Pulse Oximetry (ED) STAT Care 09/20/23 20:33 Active ABDOMEN AND PELVIS W/0 CONTRAS [CT] Stat Exams 09/21/23 00:55 Taken CHEST WITHOUT CONTRAST [CT] Stat Exams 09/21/23 01:07 Taken BLOOD CULTURE Stat Lab 09/20/23 21:01 Received CBC W DIFF Stat Lab 09/20/23 21:01 Completed CMP Stat Lab 09/20/23 21:01 Completed CULTURE,URINE Stat Lab 09/20/23 22:51 Received NT PRO BNPII Stat Lab 09/20/23 21:01 Completed TROPONIN Q4H Lab 09/20/23 21:01 Completed TROPONIN Q4H Lab 09/21/23 01:03 Completed TROPONIN Q4H Lab 09/21/23 04:45 Ordered UA W/RFX UR CULTURE Stat Lab 09/20/23 22:51 Completed BiPap/CPAP STAT RT 09/20/23 20:42 Active Transfer Order Routine Transfer 09/21/23 Ordered Medication Summary Generic Name Dose Route Start Last Admin Trade Name Freq PRN Reason Stop Dose Admin Diltiazem HCl 100 mls @ 5 mls/hr 09/20/23 20:38 Cardizem Drip 100 Mg/100 Ml D5w IV 10/20/23 20:37 .Q20H PRN HEART RATE/ A-FIB Protocol 5 MG/HR Sodium Chloride 1,000 mls @ 100 mls/hr 09/21/23 04:45 Sodium Chloride 0.9% 1000 Ml IV 10/21/23 04:44 .Q10H RAMON Discontinued Medications Generic Name Dose Route Start Last Admin Trade Name Freq PRN Reason Stop Dose Admin Acetaminophen 975 mg 09/20/23 20:42 09/20/23 21:03 Acetaminophen 325 Mg Tablet PO 09/20/23 20:43 975 mg STAT ONE Administration Acetaminophen Confirm 09/20/23 21:00 Acetaminophen 325 Mg Tablet Administered 09/20/23 21:01 Dose 975 mg .ROUTE .STK-MED ONE Methylprednisolone Sodium 0 mg 09/20/23 20:46 09/20/23 22:27 Succinate 125 mg/ Sterile IV 09/20/23 20:47 125 mg Water 2 ml STAT ONE Administration Diltiazem HCl 10 mg 09/20/23 20:37 Diltiazem Hcl Iv 5 Mg/Ml Vial IV 09/20/23 20:38 STAT ONE Ceftriaxone Sodium/Dextrose 2 g in 50 mls @ 100 mls/hr 09/20/23 20:46 09/20/23 22:27 Rocephin 2 Gm-D5w 50ml Bag IV 09/20/23 21:15 100 ml/hr STAT STA 100 mls/hr Administration Azithromycin 500 mg in 250 mls @ 250 mls/hr 09/20/23 20:46 09/21/23 00:19 Zithromax 500 Mg/ 250 Ml Nacl Premix IV 09/20/23 21:45 250 ml/hr STAT STA 250 mls/hr Administration Azithromycin Confirm 09/20/23 22:17 Zithromax 500 Mg/ 250 Ml Nacl Premix Administered 09/20/23 22:18 Dose 500 mg in 250 mls @ ud IV .STK-MED ONE Ceftriaxone Sodium/Dextrose Confirm 09/20/23 22:17 Rocephin 2 Gm-D5w 50ml Bag Administered 09/20/23 22:18 Dose 2 g in 50 mls @ ud IV .STK-MED ONE Methylprednisolone Sodium Succinate Confirm 09/20/23 22:17 Methylprednis Sod Succ 125 Mg/2 Ml Vial Administered 09/20/23 22:18 Dose 125 mg .ROUTE .STK-MED ONE Ondansetron HCl 4 mg 09/20/23 21:25 09/20/23 21:31 Zofran 4 Mg/Udtablet Orally Disintegrating PO 09/20/23 21:26 4 mg STAT ONE Administration Ondansetron HCl Confirm 09/20/23 21:26 Zofran 4 Mg/Udtablet Orally Disintegrating Administered 09/20/23 21:27 Dose 4 mg .ROUTE .STK-MED ONE Sterile Water Confirm 09/20/23 22:17 Water For Injection,Sterile 10 Ml Vial Administered 09/20/23 22:18 Dose 10 ml IJ .STK-MED ONE Lab/Rad Data: Laboratory Result Diagrams 09/20/23 21:01 09/20/23 21:01 Laboratory Results 09/21/23 09/20/23 09/20/23 Range/Units 01:03 22:51 21:05 WBC (4.0-10.5) x10^3/uL RBC (4.1-5.4) x10^6/uL Hgb (12.0-16.0) g/dL Hct (35-47) % MCV (78-100) fL MCH (26-32) pg MCHC (32-36) g/dL RDW (11.5-14.0) % Plt Count (150-450) x10^3/uL MPV (7.5-11.0) fL Gran % (36.0-66.0) % Immature Gran % (Auto) (0.00-0.4) % Nucleat RBC Rel Count (0.00-0.1) % Eos # (Auto) (0-0.5) x10^3/uL Immature Gran # (Auto) (0.00-0.03) x10^3u/L Absolute Lymphs (auto) (1.0-4.6) x10^3/uL Absolute Monos (auto) (0.0-1.3) x10^3/uL Absolute Nucleated RBC (0.00-0.01) x10^3u/L Lymphocytes % (24.0-44.0) % Monocytes % (0.0-12.0) % Eosinophils % (0.00-5.0) % Basophils % (0.0-0.4) % Absolute Granulocytes (1.4-6.9) x10^3/uL Basophils # (0-0.4) x10^3/uL Sodium (137-145) mmol/L Potassium (3.5-5.1) mmol/L Chloride (98-107) mmol/L Carbon Dioxide (22-30) mmol/L Anion Gap (5-15) MEQ/L BUN (7-17) mg/dL Creatinine (0.52-1.04) mg/dL Estimated GFR ML/MIN Glucose (74-106) mg/dL Calcium (8.4-10.2) mg/dL Total Bilirubin (0.2-1.3) mg/dL AST (14-36) U/L ALT (0-35) U/L Alkaline Phosphatase (38-126) U/L Troponin I 0.075 H* (0.000-0.034) ng/mL NT-Pro-B Natriuret Pep (<300) pg/mL Serum Total Protein (6.3-8.2) g/dL Albumin (3.5-5.0) g/dL Urine Color Yellow (Yellow) Urine Appearance Cloudy A (Clear) Urine pH 6.0 (4.6-8.0) Ur Specific [place] 1.015 (1.005-1.030) Urine Protein 300 A (Negative) Urine Glucose (UA) 500 A (Negative) mg/dL Urine Ketones Negative (Negative) Urine Blood Large A (Negative) Urine Nitrite Positive A (Negative) Urine Bilirubin Negative (Negative) Urine Urobilinogen 0.2 (0.2) mg/dL Ur Leukocyte Esterase Small A (Negative) U Hyaline Cast (Auto) NONE SEEN (0-2) /LPF Urine Microscopic RBC >100 A (0-5) /HPF Urine Microscopic WBC >100 A (0-5) /HPF Ur Epithelial Cells None Seen (None Seen) /HPF Urine Bacteria Many A (None Seen) /HPF Urine Culture Reflexed YES (NO) Influenza Type A Ag NEGATIVE (NEGATIVE) Influenza Type B Ag NEGATIVE (NEGATIVE) RSV (PCR) NEGATIVE (NEGATIVE) SARS-CoV-2 (PCR) NEGATIVE (NEGATIVE) 09/20/23 09/20/23 09/20/23 Range/Units 21:01 21:01 21:01 WBC 15.1 H (4.0-10.5) x10^3/uL RBC 4.39 (4.1-5.4) x10^6/uL Hgb 13.2 (12.0-16.0) g/dL Hct 41.4 (35-47) % MCV 94.3 (78-100) fL MCH 30.1 (26-32) pg MCHC 31.9 L (32-36) g/dL RDW 13.1 (11.5-14.0) % Plt Count 357 (150-450) x10^3/uL MPV 11.7 H (7.5-11.0) fL Gran % 90.2 H (36.0-66.0) % Immature Gran % (Auto) 0.5 H (0.00-0.4) % Nucleat RBC Rel Count 0.0 (0.00-0.1) % Eos # (Auto) 0.09 (0-0.5) x10^3/uL Immature Gran # (Auto) 0.08 H (0.00-0.03) x10^3u/L Absolute Lymphs (auto) 0.46 L (1.0-4.6) x10^3/uL Absolute Monos (auto) 0.80 (0.0-1.3) x10^3/uL Absolute Nucleated RBC 0.00 (0.00-0.01) x10^3u/L Lymphocytes % 3.1 L (24.0-44.0) % Monocytes % 5.3 (0.0-12.0) % Eosinophils % 0.6 (0.00-5.0) % Basophils % 0.3 (0.0-0.4) % Absolute Granulocytes 13.58 H (1.4-6.9) x10^3/uL Basophils # 0.04 (0-0.4) x10^3/uL Sodium 134 L (137-145) mmol/L Potassium 4.5 (3.5-5.1) mmol/L Chloride 97 L (98-107) mmol/L Carbon Dioxide 21 L (22-30) mmol/L Anion Gap 21.0 H (5-15) MEQ/L BUN 49 H (7-17) mg/dL Creatinine 2.53 H (0.52-1.04) mg/dL Estimated GFR 18.9 ML/MIN Glucose 347 H (74-106) mg/dL Calcium 7.2 L (8.4-10.2) mg/dL Total Bilirubin 0.60 (0.2-1.3) mg/dL AST 33 (14-36) U/L ALT 30 (0-35) U/L Alkaline Phosphatase 88 (38-126) U/L Troponin I < 0.012 (0.000-0.034) ng/mL NT-Pro-B Natriuret Pep 1840 (<300) pg/mL Serum Total Protein 8.7 H (6.3-8.2) g/dL Albumin 4.8 (3.5-5.0) g/dL Urine Color (Yellow) Urine Appearance (Clear) Urine pH (4.6-8.0) Ur Specific [place] (1.005-1.030) Urine Protein (Negative) Urine Glucose (UA) (Negative) mg/dL Urine Ketones (Negative) Urine Blood (Negative) Urine Nitrite (Negative) Urine Bilirubin (Negative) Urine Urobilinogen (0.2) mg/dL Ur Leukocyte Esterase (Negative) U Hyaline Cast (Auto) (0-2) /LPF Urine Microscopic RBC (0-5) /HPF Urine Microscopic WBC (0-5) /HPF Ur Epithelial Cells (None Seen) /HPF Urine Bacteria (None Seen) /HPF Urine Culture Reflexed (NO) Influenza Type A Ag (NEGATIVE) Influenza Type B Ag (NEGATIVE) RSV (PCR) (NEGATIVE) SARS-CoV-2 (PCR) (NEGATIVE) - Progress Progress: improved Progress Note: Case discussed with Dr. Rowe at 4:[address] Rowe accepts admission to observation. Plan of care discussed with patient. She agrees to admission to [facility] for further evaluation and treatment. 09/21/23 04:35 Patient is a 78-year-old female presents to our ED via EMS for evaluation of abdominal pain. Upon arrival patient was observed to be in A-fib with RVR. Patient had some shortness of breath at that time as well. Patient currently anticoagulated on Eliquis. Patient was febrile upon arrival. Blood cultures obtained. Workup reveals urinary tract infection. Laboratory workup reveals acute on chronic renal injury. Antibiotics initiated. IV fluids initiated as well per Dr. Rowe's request. Patient has an elevated troponin but we believe this is due to demand ischemia from the A-fib with RVR. Patient has no chest pain. Plan of care discussed with patient. She agrees to admission to [facility] for further evaluation and treatment. Complexity of problem addressed is moderate acute complicated No critical care time Complexity of data reviewed and analyzed is extensive. Test ordered test reviewed. Results analyzed and correlated clinically with history and physical exam. Risk of complication and or risk of morbidity/mortality of patient management is high. Patient requires hospitalization for further evaluation and treatment. Vital stable. Time spent to admit patient is approximately 25 minutes. Plan of care established for shared decision making. No social determinants of health present impede follow-up. Portions of this note were created with voice recognition technology. There may be grammatical, spelling, punctuation or sound alike errors 09/21/23 04:[address].: Other (Case discussed with Dr. Breonna Rowe at 4:[address] 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
[2023-09-20] MEDS ORDERED: TYLENOL 325 MG ONE (21:00)
[2023-09-20] MEDS: TYLENOL 325 MG PO ONE (21:03)
[2023-09-20 21:15] LABS: Absolute Neutrophil Ct (ANC) 13.58 x10^3/uL (1.4-6.9); BASOPHIL % 0.3 % (0.0-0.4); Basophil (Absolute #) 0.04 x10^3/uL (0-0.4); Eosinophil % 0.6 % (0.00-5.0); Eosinophil (Absolute #) 0.09 x10^3/uL (0-0.5); Hematocrit 41.4 % (35-47); Hemoglobin 13.2 g/dL (12.0-16.0); IMMATURE GRAN # 0.08 x10^3u/L (0.00-0.03); IMMATURE GRAN % 0.5 % (0.00-0.4); Lymphocyte (Absolute #) 0.46 x10^3/uL (1.0-4.6); Lymphocytes % 3.1 % (24.0-44.0); Mean Cell Volume 94.3 fL (78-100); Mean Corpuscular Hemoglobin 30.1 pg (26-32); Mean Corpuscular Hgb Concent. 31.9 g/dL (32-36); Mean Platelet Volume 11.7 fL (7.5-11.0); Monocytes % 5.3 % (0.0-12.0); Neutrophil % 90.2 % (36.0-66.0); Platelet Count 357 x10^3/uL (150-450); Red Blood Count 4.39 x10^6/uL (4.1-5.4); Red Cell Distribution Width 13.1 % (11.5-14.0); White Blood Count 15.1 x10^3/uL (4.0-10.5)
[2023-09-20] MEDS ORDERED: ZOFRAN ODT 4 MG ONE (21:26)
[2023-09-20] MEDS: ZOFRAN ODT 4 MG PO ONE (21:31)
[2023-09-20 21:40] LABS: ALBUMIN 4.8 g/dL (3.5-5.0); BILIRUBIN,TOTAL 0.6 mg/dL (0.2-1.3); Calcium 7.2 mg/dL (8.4-10.2); Creatinine 1 2.53 mg/dL (0.52-1.04); EST GLOMERULAR FILTRATION RATE 18.9 ML/MIN; Potassium 4.5 mmol/L (3.5-5.1); Total Protein 8.7 g/dL (6.3-8.2)
[2023-09-20 21:53] LABS: INFLUENZA A NEGATIVE (NEGATIVE); INFLUENZA B NEGATIVE (NEGATIVE); RESPIRATORY SYNCTIAL VIRUS NEGATIVE (NEGATIVE); SARS-CoV-2 Xpert Express NEGATIVE (NEGATIVE)
[2023-09-20] MEDS ORDERED: Sterile H2O 10 ml IJ ONE (22:17)
[2023-09-20] MEDS ORDERED: Zithromax 500 MG/ 250 ML NaCl Premix 500 MG/250 ML IVPB IV ONE (22:17)
[2023-09-20] MEDS ORDERED: solu-MEDROL ONE (22:17)
[2023-09-20] MEDS ORDERED: ROCEPHIN 2 Gm-D5w 50ML BAG** 2 G/50 ML IVPB IV ONE (22:17)
[2023-09-20] MEDS: ROCEPHIN 2 Gm-D5w 50ML BAG** 2 G/50 ML IVPB IV STA (22:27)
[2023-09-20] MEDS: solu-MEDROL 125 MG, Sterile H2O 10 ml 2 ML IV ONE (22:27)
[2023-09-20 23:01] LABS: Appearance Cloudy (Clear); Bacteria Many /HPF (None Seen); Bilirubin Negative (Negative); Blood Large (Negative); Epithelial Cells None Seen /HPF (None Seen); Glucose, Urine 500 mg/dL (Negative); Hyaline Casts NONE SEEN /LPF (0-2); Ketones Negative (Negative); Leukocyte Esterase Small (Negative); Nitrite Positive (Negative); Protein,Urine Dip 300 (Negative); RBC >100 /HPF (0-5); Specific Gravity 1.015 (1.005-1.030); Urobilinogen 0.2 mg/dL (0.2); WBC >100 /HPF (0-5)
[2023-09-20 23:08] LABS: ADD URINE CULTURE? YES (NO)
[2023-09-21] MEDS: Zithromax 500 MG/ 250 ML NaCl Premix 500 MG/250 ML IVPB IV STA (00:19)
[2023-09-21] MEDS ORDERED: BABY ASPIRIN 81 MG CHEW ONE (05:21)
[2023-09-21] MEDS: BABY ASPIRIN 81 MG CHEW PO ONE (05:26)
[2023-09-21] MEDS: Sodium Chloride 0.9% 1000 ML 1,000 ML IV SCH (05:26)
--- NOTE | 2023-09-21 08:24 | PCM.HP ---
History of Present Illness - Chief Complaint Chief Complaint: A-fib with RVR, fever, urinary tract infection Date: 09/21/23 History of Present Illness: is a 78 year old female with PMHX of TIA, peripheral neuropathy, arrhythmia, CHF, hyperlipidemia, HTN, VT, COPD, type II DM, hypothyroidism, GERD, and breast cancer. She presented to our ED via EMS for evaluation of abdominal pain. Patient states shortly after the abdominal pain started she developed shortness of breath. Upon arrival to our ED patient was tachycardic A-fib with RVR. Abdominal pain is diffuse. No nausea vomiting or diaphoresis. Symptoms are progressive. Symptoms are moderate in intensity. No specific worsening or improving factors. Patient denies a history of the same. She voices no other complaints or concerns at this time. CT chest and Abd pelvis pending. [facility] for A-fib RVR was ordered but not started. She was given ASA. Cardiology consulted. For SOB she was given steroids, duonebs, ceftriaxone, zithromax. Glucose has increased since admission most likely r/t steroids. High dose s/s humalog started. Pt starting to get confused with elevated glucose. Pt refusing lab to draw further testing at this time. She denies CP, SOB, abd pain resolved, N/V/D. She lives in assisted living and may need rehab at d/c. - Review of Systems Constitutional: No Fever, No Chills Eyes: No Symptoms Ears, Nose, & Throat: No Symptoms Respiratory: Short Of Breath, No Cough Cardiac: No Chest Pain, No Edema, No Syncope Abdominal/Gastrointestinal: Abdominal Pain, No Nausea, No Vomiting, No Diarrhea Genitourinary Symptoms: No Dysuria Musculoskeletal: No Back Pain, No Neck Pain Skin: No Rash Neurological: No Dizziness, No Focal Weakness, No Sensory Changes Psychological: No Symptoms Endocrine: No Symptoms Hematologic/Lymphatic: No Symptoms Immunological/Allergic: No Symptoms Medications & Allergies Home Medications: Home Medication List Montelukast Sodium 10 mg [Singulair 10 MG] 10 mg PO HS 01/20/18 [History Confirmed 09/21/23] Buspirone HCl 5 mg [Buspar 5 mg] 5 mg PO BID 12/02/20 [History Confirmed 09/21/23] Cetirizine HCl [Zyrtec] 10 mg PO DAILY 12/02/20 [History Confirmed 09/21/23] Famotidine 20 mg [Pepcid 20 MG] 20 mg PO BID 12/02/20 [History Confirmed 09/21/23] Losartan Potassium [Cozaar] 25 mg PO DAILY 12/02/20 [History Confirmed 09/21/23] Insulin Glargine [Lantus Insulin] 28 unit SQ QAM 07/06/22 [History Confirmed 09/21/23] Pregabalin 50 mg [Lyrica 50MG] 50 mg PO HS 07/06/22 [History Confirmed 09/21/23] Apixaban [Eliquis 5 mg Tablet] 5 mg PO BID 07/16/22 [History Confirmed 09/21/23] Cyanocobalamin (Vitamin B-12) [Vitamin B-12] 1,000 mcg PO DAILY 07/16/22 [History Confirmed 09/21/23] Lactobacillus Acidophilus [Acidophilus TABLET] 1 tab PO DAILY 07/16/22 [History Confirmed 09/21/23] Acetaminophen [Tylenol] 650 mg PO Q6HPRN PRN 08/31/22 [History Confirmed 09/21/23] Aspirin EC 81 mg [Ecotrin 81 mg] 81 mg PO DAILY 08/31/22 [History Confirmed 09/21/23] Calcium Carbonate 750 mg [Tums EX 750 MG] 2 tab PO BID 08/31/22 [History Confirmed 09/21/23] Ferrous Sulfate 325 mg [Feosol 325 mg] 325 mg PO BID 08/31/22 [History Confirmed 09/21/23] Folic Acid 1 mg [Folate 1 mg] 1 mg PO DAILY 08/31/22 [History Confirmed 09/21/23] Furosemide 40 mg [Lasix 40 MG] 40 mg PO DAILY 11/02/22 [History Confirmed 09/21/23] Levothyroxine Sodium [Synthroid] 250 mcg PO DAILY 11/02/22 [History Confirmed 09/21/23] Metoprolol Tartrate 50 mg [Lopressor 50 MG] 100 mg PO BID #60 tab 04/07/23 [Rx Confirmed 09/21/23] Budesonide/Formoterol Fumarate [Budesonide-Formoterol 80-4.5] 2 puffs IH BID 09/21/23 [History Confirmed 09/21/23] Furosemide 40 mg [Lasix 40 MG] 20 mg PO DAILY 09/21/23 [History Confirmed 09/21/23] Insulin Lispro [Humalog] 12 unit SQ BID 09/21/23 [History Confirmed 09/21/23] Insulin Lispro [Humalog] 18 unit SQ 1600 09/21/23 [History Confirmed 09/21/23] calcitrioL [Calcitriol] 0.25 mcg PO BID 09/21/23 [History Confirmed 09/21/23] dilTIAZem HCl [Diltiazem 24Hr Cd] 240 mg PO DAILY 09/21/23 [History Confirmed 09/21/23] Allergies/Adverse Reactions: Allergies Allergy/AdvReac Type Severity Reaction Status Date / Time albuterol Allergy Intermediate Swelling Verified 09/21/23 02:12 of Tongue and Lips propranolol [From Inderal LA] Allergy Intermediate Verified 09/21/23 02:12 levofloxacin [From Levaquin] Allergy Unknown Verified 09/21/23 02:12 clonazepam [From Klonopin] Allergy Tightness Verified 09/21/23 02:12 of Throat metoclopramide [From Reglan] Allergy Verified 09/21/23 02:12 propranolol HCl Allergy Swelling Verified 09/21/23 02:12 [From Inderal LA] of Tongue and Lips Sulfa (Sulfonamide Allergy Swelling Verified 09/21/23 02:12 Antibiotics) of Tongue and Lips terfenadine Allergy Verified 09/21/23 02:12 venom-honey bee Allergy Hives Verified 09/21/23 02:12 [bee venom (honey bee)] zanamivir Allergy Swelling Verified 09/21/23 02:12 [From Relenza Diskhaler] of Tongue and Lips cilostazol [From Pletal] AdvReac Severe Swelling Verified 09/21/23 02:12 of Tongue and Lips ticagrelor [From Brilinta] AdvReac Severe Swelling Verified 11/01/22 16:50 of Tongue and Lips - Past Medical History Past Medical History: Yes Neurological History: TIA, Peripheral Neuropathy ENT History: Other Cardiac History: Arrhythmia, Congestive Heart Failure, High Cholesterol, Hypertension, Myocardial Infarction (VT) Respiratory History: CHF, COPD Endocrine Medical History: Diabetes Type II, Hypothyroidism Musculoskelatal History: No Pertinent History GI Medical History: Other, GERD History: No Pertinent History Pyscho-Social History: Anxiety Reproductive Disorders: Breast Cancer Comment: right eye retinal scratch November 2020, NEUROPATHY - Past Surgical History Past Surgical History: Yes Neuro Surgical History: No Pertinent History Cardiac History: Other Respiratory Surgery: No Pertinent History GI Surgical History: Hernia Repair Genitourinary Surgical Hx: No Pertinent History Musculskeletal Surgical Hx: No Pertinent History Female Surgical History: Mastectomy, Lumpectomy Other Surgical History: left mastectomy 1993, right lumpectomy, right thyroid removed, left thyroid removed with goiter, pubic mass, left knee scope, valve replacement - Social History Smoking Status: Never smoker Exposure to second hand smoke: No Alcohol: None Drug Use: none - Physical Exam Vital Signs: Vital Signs - 24 hr Temp Pulse Resp BP Pulse Ox 09/21/23 06:23 97 09/21/23 05:00 97.1 F 121 H 16 115/82 98 09/21/23 04:30 121 H 8 L 107/76 99 09/21/23 04:00 121 H 10 L 107/76 99 09/21/23 03:30 121 H 23 104/79 99 09/21/23 03:00 123 H 6 L 102/76 98 09/21/23 02:30 123 H 22 100/71 97 09/21/23 02:03 127 H 25 H 99/69 98 09/21/23 01:00 127 H 16 97/73 98 09/21/23 00:30 120 H 26 H 100/76 95 09/21/23 00:00 117 H 28 H 109/76 97 09/20/23 23:30 120 H 24 99/80 97 09/20/23 23:00 116 H 28 H 99/83 97 09/20/23 22:50 131 H 31 H 95 09/20/23 22:40 130 H 33 H 94 L 09/20/23 22:30 131 H 29 H 93 L 09/20/23 22:20 132 H 24 09/20/23 22:13 132 H 22 09/20/23 20:33 94 L 09/20/23 20:19 103.5 F 177 H 36 H 100 General Appearance: no apparent distress, alert Neurologic Exam: alert, oriented x 3, cooperative, normal mood/affect, nml cer ebellar function, nml station & gait, sensation nml, No motor deficits Eye Exam: PERRL/EOMI, eyes nml inspection Ears, Nose, Throat Exam: normal ENT inspection, TMs normal, pharynx normal, moist mucous membranes Neck Exam: normal inspection, non-tender, supple, full range of motion Respiratory Exam: normal breath sounds, lungs clear, No respiratory distress Cardiovascular Exam: normal heart sounds, normal peripheral pulses, irregular, edema (+2 pitting BLLE) Gastrointestinal/Abdomen Exam: soft, normal bowel sounds, No tenderness, No mass Back Exam: normal inspection, normal range of motion, No CVA tenderness, No vertebral tenderness Extremity Exam: normal inspection, normal range of motion, pelvis stable Skin Exam: normal color, warm, dry, No rash Lymphatic Exam: No adenopathy Results - Labs Lab/Micro Results: Lab Results-Last 24 Hours 09/20/23 09/20/23 09/20/23 Range/Units 21:01 21:01 21:01 WBC 15.1 H (4.0-10.5) x10^3/uL RBC 4.39 (4.1-5.4) x10^6/uL Hgb 13.2 (12.0-16.0) g/dL Hct 41.4 (35-47) % MCV 94.3 (78-100) fL MCH 30.1 (26-32) pg MCHC 31.9 L (32-36) g/dL RDW 13.1 (11.5-14.0) % Plt Count 357 (150-450) x10^3/uL MPV 11.7 H (7.5-11.0) fL Gran % 90.2 H (36.0-66.0) % Immature Gran % (Auto) 0.5 H (0.00-0.4) % Nucleat RBC Rel Count 0.0 (0.00-0.1) % Eos # (Auto) 0.09 (0-0.5) x10^3/uL Immature Gran # (Auto) 0.08 H (0.00-0.03) x10^3u/L Absolute Lymphs (auto) 0.46 L (1.0-4.6) x10^3/uL Absolute Monos (auto) 0.80 (0.0-1.3) x10^3/uL Absolute Nucleated RBC 0.00 (0.00-0.01) x10^3u/L Lymphocytes % 3.1 L (24.0-44.0) % Monocytes % 5.3 (0.0-12.0) % Eosinophils % 0.6 (0.00-5.0) % Basophils % 0.3 (0.0-0.4) % Absolute Granulocytes 13.58 H (1.4-6.9) x10^3/uL Basophils # 0.04 (0-0.4) x10^3/uL Sodium 134 L (137-145) mmol/L Potassium 4.5 (3.5-5.1) mmol/L Chloride 97 L (98-107) mmol/L Carbon Dioxide 21 L (22-30) mmol/L Anion Gap 21.0 H (5-15) MEQ/L BUN 49 H (7-17) mg/dL Creatinine 2.53 H (0.52-1.04) mg/dL Estimated GFR 18.9 ML/MIN Glucose 347 H (74-106) mg/dL POC Glucometer (74 to 106) mg/dL Calcium 7.2 L (8.4-10.2) mg/dL Total Bilirubin 0.60 (0.2-1.3) mg/dL AST 33 (14-36) U/L ALT 30 (0-35) U/L Alkaline Phosphatase 88 (38-126) U/L Troponin I < 0.012 (0.000-0.034) ng/mL NT-Pro-B Natriuret Pep 1840 (<300) pg/mL Serum Total Protein 8.7 H (6.3-8.2) g/dL Albumin 4.8 (3.5-5.0) g/dL Urine Color (Yellow) Urine Appearance (Clear) Urine pH (4.6-8.0) Ur Specific [place] (1.005-1.030) Urine Protein (Negative) Urine Glucose (UA) (Negative) mg/dL Urine Ketones (Negative) Urine Blood (Negative) Urine Nitrite (Negative) Urine Bilirubin (Negative) Urine Urobilinogen (0.2) mg/dL Ur Leukocyte Esterase (Negative) U Hyaline Cast (Auto) (0-2) /LPF Urine Microscopic RBC (0-5) /HPF Urine Microscopic WBC (0-5) /HPF Ur Epithelial Cells (None Seen) /HPF Urine Bacteria (None Seen) /HPF Urine Culture Reflexed (NO) Influenza Type A Ag (NEGATIVE) Influenza Type B Ag (NEGATIVE) RSV (PCR) (NEGATIVE) SARS-CoV-2 (PCR) (NEGATIVE) 09/20/23 09/20/23 09/21/23 Range/Units 21:05 22:51 01:03 WBC (4.0-10.5) x10^3/uL RBC (4.1-5.4) x10^6/uL Hgb (12.0-16.0) g/dL Hct (35-47) % MCV (78-100) fL MCH (26-32) pg MCHC (32-36) g/dL RDW (11.5-14.0) % Plt Count (150-450) x10^3/uL MPV (7.5-11.0) fL Gran % (36.0-66.0) % Immature Gran % (Auto) (0.00-0.4) % Nucleat RBC Rel Count (0.00-0.1) % Eos # (Auto) (0-0.5) x10^3/uL Immature Gran # (Auto) (0.00-0.03) x10^3u/L Absolute Lymphs (auto) (1.0-4.6) x10^3/uL Absolute Monos (auto) (0.0-1.3) x10^3/uL Absolute Nucleated RBC (0.00-0.01) x10^3u/L Lymphocytes % (24.0-44.0) % Monocytes % (0.0-12.0) % Eosinophils % (0.00-5.0) % Basophils % (0.0-0.4) % Absolute Granulocytes (1.4-6.9) x10^3/uL Basophils # (0-0.4) x10^3/uL Sodium (137-145) mmol/L Potassium (3.5-5.1) mmol/L Chloride (98-107) mmol/L Carbon Dioxide (22-30) mmol/L Anion Gap (5-15) MEQ/L BUN (7-17) mg/dL Creatinine (0.52-1.04) mg/dL Estimated GFR ML/MIN Glucose (74-106) mg/dL POC Glucometer (74 to 106) mg/dL Calcium (8.4-10.2) mg/dL Total Bilirubin (0.2-1.3) mg/dL AST (14-36) U/L ALT (0-35) U/L Alkaline Phosphatase (38-126) U/L Troponin I 0.075 H* (0.000-0.034) ng/mL NT-Pro-B Natriuret Pep (<300) pg/mL Serum Total Protein (6.3-8.2) g/dL Albumin (3.5-5.0) g/dL Urine Color Yellow (Yellow) Urine Appearance Cloudy A (Clear) Urine pH 6.0 (4.6-8.0) Ur Specific [place] 1.015 (1.005-1.030) Urine Protein 300 A (Negative) Urine Glucose (UA) 500 A (Negative) mg/dL Urine Ketones Negative (Negative) Urine Blood Large A (Negative) Urine Nitrite Positive A (Negative) Urine Bilirubin Negative (Negative) Urine Urobilinogen 0.2 (0.2) mg/dL Ur Leukocyte Esterase Small A (Negative) U Hyaline Cast (Auto) NONE SEEN (0-2) /LPF Urine Microscopic RBC >100 A (0-5) /HPF Urine Microscopic WBC >100 A (0-5) /HPF Ur Epithelial Cells None Seen (None Seen) /HPF Urine Bacteria Many A (None Seen) /HPF Urine Culture Reflexed YES (NO) Influenza Type A Ag NEGATIVE (NEGATIVE) Influenza Type B Ag NEGATIVE (NEGATIVE) RSV (PCR) NEGATIVE (NEGATIVE) SARS-CoV-2 (PCR) NEGATIVE (NEGATIVE) 09/21/23 09/21/23 Range/Units 05:02 07:03 WBC (4.0-10.5) x10^3/uL RBC (4.1-5.4) x10^6/uL Hgb (12.0-16.0) g/dL Hct (35-47) % MCV (78-100) fL MCH (26-32) pg MCHC (32-36) g/dL RDW (11.5-14.0) % Plt Count (150-450) x10^3/uL MPV (7.5-11.0) fL Gran % (36.0-66.0) % Immature Gran % (Auto) (0.00-0.4) % Nucleat RBC Rel Count (0.00-0.1) % Eos # (Auto) (0-0.5) x10^3/uL Immature Gran # (Auto) (0.00-0.03) x10^3u/L Absolute Lymphs (auto) (1.0-4.6) x10^3/uL Absolute Monos (auto) (0.0-1.3) x10^3/uL Absolute Nucleated RBC (0.00-0.01) x10^3u/L Lymphocytes % (24.0-44.0) % Monocytes % (0.0-12.0) % Eosinophils % (0.00-5.0) % Basophils % (0.0-0.4) % Absolute Granulocytes (1.4-6.9) x10^3/uL Basophils # (0-0.4) x10^3/uL Sodium (137-145) mmol/L Potassium (3.5-5.1) mmol/L Chloride (98-107) mmol/L Carbon Dioxide (22-30) mmol/L Anion Gap (5-15) MEQ/L BUN (7-17) mg/dL Creatinine (0.52-1.04) mg/dL Estimated GFR ML/MIN Glucose (74-106) mg/dL POC Glucometer 374 H (74 to 106) mg/dL Calcium (8.4-10.2) mg/dL Total Bilirubin (0.2-1.3) mg/dL AST (14-36) U/L ALT (0-35) U/L Alkaline Phosphatase (38-126) U/L Troponin I 0.084 H* (0.000-0.034) ng/mL NT-Pro-B Natriuret Pep (<300) pg/mL Serum Total Protein (6.3-8.2) g/dL Albumin (3.5-5.0) g/dL Urine Color (Yellow) Urine Appearance (Clear) Urine pH (4.6-8.0) Ur Specific [place] (1.005-1.030) Urine Protein (Negative) Urine Glucose (UA) (Negative) mg/dL Urine Ketones (Negative) Urine Blood (Negative) Urine Nitrite (Negative) Urine Bilirubin (Negative) Urine Urobilinogen (0.2) mg/dL Ur Leukocyte Esterase (Negative) U Hyaline Cast (Auto) (0-2) /LPF Urine Microscopic RBC (0-5) /HPF Urine Microscopic WBC (0-5) /HPF Ur Epithelial Cells (None Seen) /HPF Urine Bacteria (None Seen) /HPF Urine Culture Reflexed (NO) Influenza Type A Ag (NEGATIVE) Influenza Type B Ag (NEGATIVE) RSV (PCR) (NEGATIVE) SARS-CoV-2 (PCR) (NEGATIVE) Accuchecks Date 09/21/23 - Radiology Impressions Radiology Exams & Impressions: Radiology Procedures Category Date Time Status ABDOMEN AND PELVIS W/0 CONTRAS [CT] Stat Exams 09/21/23 00:55 Taken CHEST WITHOUT CONTRAST [CT] Stat Exams 09/21/23 01:07 Taken - Other Procedures and Tests Respiratory Therapy 09/21/23 05:29 Respiratory MDI BID 09/21/23 05:37 Respiratory Therapy Assessment DAILY Assessment/Plan (1) CHF (congestive heart failure) Current Visit: No Status: Acute Qualifiers: Heart failure chronicity: acute on chronic Assessment & Plan: - BNP 1840 - continue home dose Lasix - Follows with [place] [facility] - Cardiology consulted - Echo 07/07/22- per old records DATE OF PROCEDURE: 07/07/2022 CLINICAL INFORMATION: Atrial fibrillation with rapid ventricular response and history of aortic valve replacement. The M-mode 2D, and Doppler echocardiogram including color flow Doppler shows the left ventricle is normal in size. There is no thrombus present. There is mild concentric left ventricular hypertrophy. The left ventricular systolic function is mildly decreased and the ejection fraction is calculated to be 47%. The right ventricle is normal. The left atrium is moderately dilated. The interatrial septum is intact. The right atrium is normal. The aortic valve is not well visualized. There is mitral valve calcification associated with mild mitral regurgitation. There is mild tricuspid regurgitation. The right ventricular systolic pressure is calculated to be 51 mm of [place]. The pulmonic valve is not well visualized. The aortic root is not well visualized. There is no pericardial effusion present. IMPRESSION: 1) MILD CONCENTRIC LEFT VENTRICULAR HYPERTROPHY. 2) MILD DECREASE IN LEFT VENTRICULAR SYSTOLIC FUNCTION. 3) MODERATE LEFT ATRIAL DILATATION. 4) MILD MITRAL REGURGITATION. 5) MILD TRICUSPID REGURGITATION. 6) SEVERE PULMONARY HYPERTENSION Code(s): I50.9 - HEART FAILURE, UNSPECIFIED (2) Atrial fibrillation with RVR Current Visit: Yes Status: Acute Assessment & Plan: - cardiology consult - Chronic a-fib hx - reduce eliquis to 2.5 BID d/t kidney function - tele Code(s): I48.91 - UNSPECIFIED ATRIAL FIBRILLATION (3) Dyspnea Current Visit: Yes Status: Acute Assessment & Plan: - 2;2 a-fib rvr - on 3LNC - 94% - Baseline RA - 2:2 TIM, CHF, A-Fib RVR Code(s): R06.00 - DYSPNEA, UNSPECIFIED (4) Acute renal failure superimposed on chronic kidney disease Current Visit: Yes Status: Acute Assessment & Plan: - creat 2.53, baseline 1.75 - 2:2 UTI - IVF Code(s): N17.9 - ACUTE KIDNEY FAILURE, UNSPECIFIED; N18.9 - CHRONIC KIDNEY DISEASE, UNSPECIFIED (5) Hyponatremia Current Visit: Yes Status: Acute Assessment & Plan: - Na+ 136- mild - IVF - trend Code(s): E87.1 - HYPO-OSMOLALITY AND HYPONATREMIA (6) Troponin level elevated Current Visit: Yes Status: Acute Assessment & Plan: - Trop <0.012, 0.075, 0.084 - Cardiology consult - 2:2 TIM, A-fib RVR Code(s): R79.89 - OTHER SPECIFIED ABNORMAL FINDINGS OF BLOOD CHEMISTRY (7) UTI (urinary tract infection) Current Visit: Yes Status: Acute Assessment & Plan: - ceftriaxone started in ER- Continue - IVF - UC pending Code(s): N39.0 - URINARY TRACT INFECTION, SITE NOT SPECIFIED (8) Leukocytosis Current Visit: Yes Status: Acute Assessment & Plan: - BC x2 - both have gram negative rods- sensitivity pending - Steroids gave in ER - + UTI- atbx - Lactic acid pending - Chest CT w/o contrast 09/21/23 IMPRESSION: Unenhanced CT chest reveals bilateral pulmonary mosaic groundglass changes and mild bilateral peribronchial soft tissue thickening in the lower lobes. Transverse cardiac diameter is enlarged with aortic valve repair. In the appropriate clinical setting, findings may be due to atypical pulmonary infection. Another possibility would be of early phase pulmonary edema. Needs clinical correlation. Ancillary findings: Multiple tiny calcified hepatosplenic granulomas, bilateral simple renal cortical cysts, and small hiatal hernia. Thoracic spine diffuse idiopathic skeletal hyperostosis [DISH]. - CT abd pelvis 09/21 IMPRESSION: 1. Innumerable hepatic and splenic calcific foci, likely post granulomatous infection sequel. 2. Mesenteric panniculitis. 3. Bilateral renal hypodense cortical cysts. 4. Colonic diverticulosis. No diverticulitis. Code(s): D72.829 - ELEVATED WHITE BLOOD CELL COUNT, UNSPECIFIED (9) Abdominal pain Current Visit: Yes Status: Acute Qualifiers: Assessment & Plan: - 2:2 Mesenteric panniculitis. - no pain currently Code(s): R10.9 - UNSPECIFIED ABDOMINAL PAIN (10) Diabetes mellitus Current Visit: No Status: Chronic Qualifiers: Diabetes mellitus type: type 2 Diabetes mellitus halfway insulin use: with long term care administrator use Diabetes mellitus complication status: with kidney complications Diabetes mellitus complication detail: with chronic kidney disease Chronic kidney disease stage: stage 2 (mild) Qualified Code(s): E11.22 - Type 2 diabetes mellitus with diabetic chronic kidney disease; N18.2 - Chronic kidney disease, stage 2 (mild); Z79.4 - residential (current) use of insulin Assessment & Plan: - Lantus, humalog s/s - I dose of 10units IV regular insulin gave at 15:46 Code(s): E11.9 - TYPE 2 DIABETES MELLITUS WITHOUT COMPLICATIONS (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
[2023-09-21] MEDS ORDERED: Xopenex 1.25 MG/0.5 ML UD NEBULE IH PRN (08:40)
[2023-09-21 08:48] LABS: Hematocrit 38.8 % (35-47); Hemoglobin 12.4 g/dL (12.0-16.0); Mean Cell Volume 95.1 fL (78-100); Mean Corpuscular Hemoglobin 30.4 pg (26-32); Mean Platelet Volume 11.7 fL (7.5-11.0); Platelet Count 294 x10^3/uL (150-450); Red Blood Count 4.08 x10^6/uL (4.1-5.4); Red Cell Distribution Width 13.2 % (11.5-14.0); White Blood Count 20.2 x10^3/uL (4.0-10.5)
--- NOTE | 2023-09-21 08:55 | XRAY ---
CLINICAL HISTORY: sob TECHNIQUE: Contiguous axial CT images of the chest were acquired without administration of intravenous contrast. Coronal and sagittal reconstructions were obtained. COMPARISON: None. FINDINGS: Mosaic groundglass changes are appreciated in both the lungs predominantly the lower lobes. Few atelectatic bands are also seen at both lung bases with gravitational-dependent posterobasal subsegmental atelectatic changes. Mild bilateral peribronchial soft tissue thickening is appreciated in both the lower lobes. Multiple prominent yet subcentimeter mediastinal and bilateral hilar lymph nodes, few of them are partly calcified. The scanned pulmonary parenchyma shows no definite consolidative lesions. No discrete pulmonary nodule is identified. No pneumothorax. No evidence of bronchiectasis or honeycombing. Central patent trachea. No endobronchial lesion is identified. No free or encysted pleural effusion. Transverse cardiac diameter is enlarged. Metallic streak artifacts from the replaced aortic valve is noted. No pericardial effusion. Atherosclerotic disease is seen in the [place] of the thoracoabdominal aorta predominantly the abdominal aorta and splenic artery. There is no definite mass lesion in the chest wall. The left breast is not visualized likely removed surgically. The scanned upper abdomen shows multiple tiny calcified hepatosplenic granulomas, bilateral simple renal cortical cysts, and a small hiatal hernia. Visualized thoracic spine demonstrates generalized osteopenia with few linear sclerotic areas and suggestion of diffuse idiopathic skeletal hyperostosis [DISH]. IMPRESSION: Unenhanced CT chest reveals bilateral pulmonary mosaic groundglass changes and mild bilateral peribronchial soft tissue thickening in the lower lobes. Transverse cardiac diameter is enlarged with aortic valve repair. In the appropriate clinical setting, findings may be due to atypical pulmonary infection. Another possibility would be of early phase pulmonary edema. Needs clinical correlation. Ancillary findings: Multiple tiny calcified hepatosplenic granulomas, bilateral simple renal cortical cysts, and small hiatal hernia. Thoracic spine diffuse idiopathic skeletal hyperostosis [DISH]. Electronically Signed by: Claudine Monge MD. (09/21/2023 02:29:08 EST)
--- NOTE | 2023-09-21 09:01 | XRAY ---
CLINICAL HISTORY: pain TECHNIQUE: CT scan of the abdomen and pelvis was performed without IV contrast administration. Coronal and sagittal reconstructive images were also obtained. COMPARISON: None. FINDINGS: Innumerable hepatic and splenic calcific foci, likely post granulomatous infection sequel. Otherwise, average sized liver and spleen showing no hypodense focal lesions. No dilated intra or extra-hepatic biliary tracts. Distended gall bladder showing no obvious radiodense calculi. Clear surrounding fat planes with no sizeable collections. Mild fatty changes of the pancreas with clear surrounding fat planes. The adrenal glands and IVC are unremarkable. Extensive atheromatous calcifications of the abdominal aorta and its branches. Both kidneys are of average size and show smooth outline and preserved parenchymal thickness. Bilateral renal hypodense cortical cysts, larger on the left side measuring about 6.5 x 5.1 cm in diameter. No renal calculi. No hydronephrosis. Smudged perinephric fat planes. The urinary bladder is seen collapsed over Ram's catheter balloon. Average sized anteverted uterus. No obvious adnexal masses. No free intraperitoneal air. No pelvi-abdominal encysted collections. No obvious pathologically enlarged lymph nodes. Normal appearance of the appendix with clear surrounding fat planes. No obvious right iliac inflammatory changes. Multiple divertciulae seen along the sigmoid and descending colon with clear surrounding fat planes. Otherwise, the ascending colon, the transverse colon, the descending colon, visualized small bowel loops are unremarkable. The stomach appear unremarkable. Small hiatus hernia. Fatty attenuation of the mesenteric roots with prominent mesenteric lymph nodes. Small fat containing umbilical and epigastric hernias. Focal deep subcutaneous density seen along the right anterolateral abdominal wall. Right side pelvic/pelvic wall metallic clips. Scanned osseous structures show degenerative changes of the spine with advanced arthropathic changes of the right hip. no osseous destruction. Scanned lung bases show bilateral basal patchy parenchymal veiling and atelectatic plates with mild pleural thickening. Mild cardiomegaly. IMPRESSION: 1. Innumerable hepatic and splenic calcific foci, likely post granulomatous infection sequel. 2. Mesenteric panniculitis. 3. Bilateral renal hypodense cortical cysts. 4. Colonic diverticulosis. No diverticulitis. Electronically Signed by: Claudine Monge MD. (09/21/2023 02:16:09 EST)
[2023-09-21 09:11] LABS: ALBUMIN 4.4 g/dL (3.5-5.0); ANION GAP 16.6 MEQ/L (5-15); BILIRUBIN,TOTAL 0.6 mg/dL (0.2-1.3); Calcium 6.3 mg/dL (8.4-10.2); Creatinine 1 2.71 mg/dL (0.52-1.04); EST GLOMERULAR FILTRATION RATE 17.4 ML/MIN; Potassium 4.7 mmol/L (3.5-5.1); Total Protein 7.9 g/dL (6.3-8.2)
[2023-09-21] MEDS: Advair Hfa 115/21 Common canister IH SCH (09:19)
[2023-09-21] MEDS: HUMALOG SQ SCH ×3 (12:23→17:29)
[2023-09-21] MEDS: Lantus Insulin SQ SCH ×2 (12:23→22:11)
[2023-09-21] MEDS: Cardizem IV 50 MG/10 ML IV ONE (13:54)
[2023-09-21] MEDS: HUMALOG SQ ONE (15:02)
[2023-09-21] MEDS: Cardizem CD PO SCH (15:03)
[2023-09-21] MEDS: ECOTRIN 81 MG PO SCH (15:03)
[2023-09-21] MEDS: LASIX 20 MG PO SCH (15:03)
[2023-09-21] MEDS: Cozaar 50 MG PO SCH (15:03)
[2023-09-21] MEDS: ELIQUIS 2.5 MG TABLET PO SCH (15:03)
[2023-09-21] MEDS: BUSPAR 5 MG PO SCH (15:04)
[2023-09-21] MEDS: HUMULIN R IV ONE (15:57)
[2023-09-21] MEDS ORDERED: NON-FORMULARY ITEM (Insulin Lispro 1 UNIT Ml) SQ SCH (16:30)
[2023-09-21] MEDS ORDERED: HUMALOG SQ SCH (16:38)
[2023-09-21] MEDS ORDERED: NON-FORMULARY ITEM (Apixaban*** [Eliquis 5 Mg Tablet***] 5 MG Tablet) PO SCH (22:00)
[2023-09-21] MEDS: HUMALOG SQ PRN (22:10)
[2023-09-21] MEDS: FEOSOL 325 MG PO SCH (22:11)
[2023-09-21] MEDS: Pepcid 20 MG PO SCH (22:11)
[2023-09-21] MEDS: Singulair 10 MG PO SCH (22:11)
[2023-09-21] MEDS: Lyrica 50MG PO SCH (22:11)
[2023-09-21] MEDS: Tums EX 750 MG PO SCH (22:14)
[2023-09-21] MEDS: ROCEPHIN 1 GM / 100 ML NaCl 1 GM/100 ML IVPB IV SCH (22:17)
[2023-09-22] MEDS ORDERED: NON-FORMULARY ITEM (Insulin Lispro 1 UNIT Ml) SQ SCH (07:30)
[2023-09-22] MEDS: HUMALOG SQ SCH (08:56)
[2023-09-22] MEDS: Vitamin B-12 500 MCG PO SCH (09:31)
[2023-09-22] MEDS: Acidophilus TABLET PO SCH (09:32)
[2023-09-22] MEDS: FOLATE 1 MG PO SCH (09:32)
[2023-09-22] MEDS: Lasix 40 MG PO SCH (09:33)
[2023-09-22] MEDS: CLARITIN 10 MG PO SCH (09:34)
[2023-09-22] MEDS ORDERED: CYANOCOBALAMIN 1000 MCG PO SCH (10:00)
[2023-09-22] MEDS ORDERED: NON-FORMULARY ITEM (Cetirizine Hcl [Zyrtec] 10 MG Tablet) PO SCH (10:00)
[2023-09-22] MEDS ORDERED: NON-FORMULARY ITEM (Losartan Potassium [Cozaar] 25 MG Tablet) PO SCH (10:00)
[2023-09-22] MEDS ORDERED: Lasix 40 MG PO SCH ×2 (10:00)
[2023-09-22] MEDS ORDERED: NON-FORMULARY ITEM (Diltiazem Hcl [Diltiazem 24hr Er (Cd)] 240 MG Cap.Er.24h) PO SCH (10:00)
[2023-09-22] MEDS: LASIX 20 MG PO SCH (13:44)
[2023-09-22] MEDS: SYNTHROID 125 MCG PO SCH (13:45)
--- NOTE | 2023-09-22 15:15 | PCM.DS ---
Discharge Summary Date of Admission: 09/21/23 05:02 Date of Discharge: 09/22/23 Admitting Physician: DEBI ZAMAN MD Consults: Consults on Case 09/21/23 15:51 Consult Cardiology ROUTINE 09/22/23 13:21 Consult Nephrology ROUTINE Primary Care Provider: JANNA CHAWLA DO Allergies Allergies albuterol Allergy (Intermediate, Verified 09/21/23 02:12) Swelling of Tongue and Lips propranolol [From Inderal LA] Allergy (Intermediate, Verified 09/21/23 02:12) red face and ears levofloxacin [From Levaquin] Allergy (Unknown, Verified 09/21/23 02:12) clonazepam [From Klonopin] Allergy (Verified 09/21/23 02:12) Tightness of Throat tongue swollen metoclopramide [From Reglan] Allergy (Verified 09/21/23 02:12) propranolol HCl [From Inderal LA] Allergy (Verified 09/21/23 02:12) Swelling of Tongue and Lips red face and ears Sulfa (Sulfonamide Antibiotics) Allergy (Verified 09/21/23 02:12) Swelling of Tongue and Lips throat swell,ears red terfenadine Allergy (Verified 09/21/23 02:12) venom-honey bee [bee venom (honey bee)] Allergy (Verified 09/21/23 02:12) Hives large hives zanamivir [From Relenza Diskhaler] Allergy (Verified 09/21/23 02:12) Swelling of Tongue and Lips throat tightness cilostazol [From Pletal] Adverse Reaction (Severe, Verified 09/21/23 02:12) Swelling of Tongue and Lips ticagrelor [From Brilinta] Adverse Reaction (Severe, Verified 11/01/22 16:50) Swelling of Tongue and Lips Hospital Summary - Hospital Course Hospital Course: 09/21/23 is a 78 year old female with PMHX of TIA, peripheral neuropathy, arrhythmia, CHF, hyperlipidemia, HTN, OR, COPD, type II DM, hypothyroidism, GERD, and breast cancer. She presented to our ED via EMS for evaluation of abdominal pain. Patient states shortly after the abdominal pain started she developed shortness of breath. Upon arrival to our ED patient was tachycardic A-fib with RVR. Abdominal pain is diffuse. No nausea vomiting or diaphoresis. Symptoms are progressive. Symptoms are moderate in intensity. No specific worsening or improving factors. Patient denies a history of the same. She voices no other complaints or concerns at this time. CT chest and Abd pelvis pending. [facility] R[facility] was ordered but not started. She was given ASA. Cardiology consulted. For SOB she was given steroids, duonebs, ceftriaxone, zithromax. Glucose has increased since admission most likely r/t steroids. High dose s/s humalog started. Pt starting to get confused with elevated glucose. Pt refusing lab to draw further testing at this time. She denies CP, SOB, abd pain resolved, N/V/D. She lives in assisted living and may need rehab at d/c. 09/22/23 Pt is sitting on the side of the bed awake and alert today. She was stuck 1 time by lab this am and she refused labs after this. She explains she will not be stuck repeatedly and she has the right to do so. Explained in order to treat her properly we need to have labs. Right arm where IV is, is starting to swell. Asked nurse to remove. OK with mid or picc line. She is unable to have this done without nehprology clearance. Awaiting nephro consult. Cardiology made recommendations for metoprolol, eliquis, and lasix IV. Per cardiology if this does not help transfer pt. Unable to get troponins as pt will not allow. She is SOB, heart rhythm in a-fib, a-flutter. Continue antibiotics for UTI. She is irritable and noncompliant with care. - Vitals & Intake/Output Vital Signs: Vital Signs Temperature 97.2 F 09/22/23 11:47 Pulse Rate 106 H 09/22/23 11:47 Respiratory Rate 20 09/22/23 11:47 Blood Pressure 127/78 09/22/23 11:47 O2 Sat by Pulse Oximetry 92 L 09/22/23 11:47 Intake & Output: Intake & Output 09/20/23 09/21/23 09/22/23 09/23/23 11:59 11:59 11:59 11:59 Intake Total 120 3560 120 Output Total 500 1225 200 Balance -380 2335 -80 Weight 85.5 kg - Lab Result Diagrams: 09/21/23 08:46 09/21/23 08:46 Lab Results-Last 24 Hrs: Lab Results-Last 24 Hours 09/21/23 09/21/23 09/21/23 Range/Units 17:13 18:36 19:19 POC Glucometer 532 H* 470 H 435 H (50 to 500) mg/dL 09/21/23 09/22/23 09/22/23 Range/Units 21:51 05:09 07:18 POC Glucometer 412 H 218 H 224 H (50 to 500) mg/dL 09/22/23 Range/Units 11:11 POC Glucometer 238 H (50 to 500) mg/dL Micro Results-Entire Visit: Microbiology 09/20/23 20:40 Blood Culture Gram Stain - Final Blood Blood Culture - Preliminary GRAM NEGATIVE ID AND SENSITIVITY PENDING 09/20/23 21:01 Blood Culture Gram Stain - Final Blood Blood Culture - Preliminary GRAM NEGATIVE ID AND SENSITIVITY PENDING 09/20/23 22:51 Urine Culture - Preliminary Catherized GRAM NEGATIVE ID AND SENSITIVITY PENDING Accuchecks Date 09/22/23 Date 09/22/23 Date 09/21/23 Date 09/21/23 Time 21:56 Time 13:26 - Radiology Exams Ordered Rad Exams-Entire Visit: Radiology Procedures Category Date Time Status ABDOMEN AND PELVIS W/0 CONTRAS [CT] Stat Exams 09/21/23 00:55 Completed CHEST WITHOUT CONTRAST [CT] Stat Exams 09/21/23 01:07 Completed - Procedures and Test Procedures and Tests throughout Hospitalization: Therapy Orders & Screens 09/20/23 20:42 BiPap/CPAP STAT Comment: 09/21/23 05:29 Respiratory MDI BID Comment: Diagnosis: A-fib with RVR, fever, urinary tract infection 09/21/23 05:37 Respiratory Therapy Assessment DAILY Comment: Diagnosis: A-fib with RVR, fever, urinary tract infection 09/21/23 09:21 Oxygen Nasal Cannula 2 lpm Comment: Diagnosis: A-fib with RVR, fever, urinary tract infection 09/21/23 15:59 PT Eval & Treat (MD Order) ONCE Reason for Eval:: weakness, lives in assisted living, may need rehab at d/c Diagnosis: A-fib with RVR, fever, urinary tract infection OT Eval and Treat (MD Order) ONCE Comment: Physician Instructions: Reason For Exam: Diagnosis: A-fib with RVR, fever, urinary tract infection 09/22/23 11:21 EKG STAT Comment: Diagnosis: A-fib with RVR, fever, urinary tract infection Discharge Exam General Appearance: mild distress, alert Neurologic Exam: alert, oriented x 3, nml cerebellar function, sensation nml, a gitation, No motor deficits Eye Exam: PERRL, EOMI, eyes nml inspection Ears, Nose, Throat Exam: normal ENT inspection, pharynx normal, moist mucous me mbranes Neck Exam: normal inspection, non-tender, supple, full range of motion Respiratory Exam: normal breath sounds, lungs clear, No respiratory distress Cardiovascular Exam: irregular (a-fib/ a-flutter) Gastrointestinal/Abdomen Exam: soft, No tenderness, No mass Pelvic Exam: deferred Rectal Exam: deferred Back Exam: normal inspection, normal range of motion, No CVA tenderness, No vertebral tenderness Extremity Exam: normal inspection, normal range of motion Skin Exam: normal color, warm, dry Final Diagnosis/Problem List - Final Discharge Diagnosis/Problem (1) CHF (congestive heart failure) Current Visit: No Status: Acute Code(s): I50.9 - HEART FAILURE, UNSPECIFIED (2) Atrial fibrillation with RVR Current Visit: Yes Status: Acute Code(s): I48.91 - UNSPECIFIED ATRIAL FIBRILLATION (3) Dyspnea Current Visit: Yes Status: Acute Code(s): R06.00 - DYSPNEA, UNSPECIFIED (4) Acute renal failure superimposed on chronic kidney disease Current Visit: Yes Status: Acute Code(s): N17.9 - ACUTE KIDNEY FAILURE, UNSPECIFIED; N18.9 - CHRONIC KIDNEY DISEASE, UNSPECIFIED (5) Hyponatremia Current Visit: Yes Status: Acute Code(s): E87.1 - HYPO-OSMOLALITY AND HYP ONATREMIA (6) Troponin level elevated Current Visit: Yes Status: Acute Code(s): R79.89 - OTHER SPECIFIED ABNORMAL FINDINGS OF BLOOD CHEMISTRY (7) UTI (urinary tract infection) Current Visit: Yes Status: Acute Code(s): N39.0 - URINARY TRACT INFECTION, SITE NOT SPECIFIED (8) Leukocytosis Current Visit: Yes Status: Acute Code(s): D72.829 - ELEVATED WHITE BLOOD CELL COUNT, UNSPECIFIED (9) Abdominal pain Current Visit: Yes Status: Acute Code(s): R10.9 - UNSPECIFIED ABDOMINAL PAIN (10) Diabetes mellitus Current Visit: No Status: Chronic Code(s): E11.9 - TYPE 2 DIABETES MELLITUS WITHOUT COMPLICATIONS (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 Current Visit: No Status: Chronic Code(s): Z79.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 The M-mode 2D, and Doppler echocardiogram including color flow Doppler shows the left ventricle is normal in size. There is no thrombus present. There is mild concentric left ventricular hypertrophy. The left ventricular systolic function is mildly decreased and the ejection fraction is calculated to be 47%. The right ventricle is normal. The left atrium is moderately dilated. The interatrial septum is intact. The right atrium is normal. The aortic valve is not well visualized. There is mitral valve calcification associated with mild mitral regurgitation. There is mild tricuspid regurgitation. The right ventricular systolic pressure is calculated to be 51 mm of Mercury. The pulmonic valve is not well visualized. The aortic root is not well visualized. There is no pericardial effusion present. IMPRESSION: 1) MILD CONCENTRIC LEFT VENTRICULAR HYPERTROPHY. 2) MILD DECREASE IN LEFT VENTRICULAR SYSTOLIC FUNCTION. 3) MODERATE LEFT ATRIAL DILATATION. 4) MILD MITRAL REGURGITATION. 5) MILD TRICUSPID REGURGITATION. 6) SEVERE PULMONARY HYPERTENSION 09/22 - pt refused AM labs - awaiting line placement Code(s): I50.9 - HEART FAILURE, UNSPECIFIED (2) Atrial fibrillation with RVR Current Visit: Yes Status: Acute Assessment & Plan: - cardiology consult - Chronic a-fib hx - reduce eliquis to 2.5 BID d/t kidney function - tele 09/22 - a-fib/aflutter - cardiology consult - card recs- metoprolol, lasix, eliquis dosing - in computer per nurse Code(s): I48.91 - UNSPECIFIED ATRIAL FIBRILLATION (3) Dyspnea Current Visit: Yes Status: Acute Assessment & Plan: - 2;2 a-fib rvr - on 3LNC - 94% - Baseline RA - 2:2 TIM, CHF, A-Fib RVR 09/22 - RA 92% Code(s): R06.00 - DYSPNEA, UNSPECIFIED (4) Acute renal failure superimposed on chronic kidney disease Current Visit: Yes Status: Acute Assessment & Plan: - creat 2.53, baseline 1.75 - 2:2 UTI - IVF 09/22 - No AM labs pt refused - awaiting nephro consult to clear for line placement Code(s): N17.9 - ACUTE KIDNEY FAILURE, UNSPECIFIED; N18.9 - CHRONIC KIDNEY DISEASE, UNSPECIFIED (5) Hyponatremia Current Visit: Yes Status: Acute Assessment & Plan: - Na+ 136- mild - IVF - trend 09/22 - no AM labs Code(s): E87.1 - HYPO-OSMOLALITY AND HYPONATREMIA (6) Troponin level elevated Current Visit: Yes Status: Acute Assessment & Plan: - Trop <0.012, 0.075, 0.084 - Cardiology consult - 2:2 TIM, A-fib RVR 09/22 - repeat trops ordered for Cp- Pt refused - EKG- reviewed- a-flutter Code(s): R79.89 - OTHER SPECIFIED ABNORMAL FINDINGS OF BLOOD CHEMISTRY (7) UTI (urinary tract infection) Current Visit: Yes Status: Acute Assessment & Plan: - ceftriaxone started in ER- Continue - IVF - UC gram negative- sensitivity pending Code(s): N39.0 - URINARY TRACT INFECTION, SITE NOT SPECIFIED (8) Leukocytosis Current Visit: Yes Status: Acute Assessment & Plan: - BC x2 - both have gram negative rods- sensitivity pending - Steroids gave in ER - + UTI- atbx - Lactic acid pending - Chest CT w/o contrast 09/21/23 IMPRESSION: Unenhanced CT chest reveals bilateral pulmonary mosaic groundglass changes and mild bilateral peribronchial soft tissue thickening in the lower lobes. Transverse cardiac diameter is enlarged with aortic valve repair. In the appropriate clinical setting, findings may be due to atypical pulmonary infection. Another possibility would be of early phase pulmonary edema. Needs clinical correlation. Ancillary findings: Multiple tiny calcified hepatosplenic granulomas, bilateral simple renal cortical cysts, and small hiatal hernia. Thoracic spine diffuse idiopathic skeletal hyperostosis [DISH]. - CT abd pelvis 09/21 IMPRESSION: 1. Innumerable hepatic and splenic calcific foci, likely post granulomatous infection sequel. 2. Mesenteric panniculitis. 3. Bilateral renal hypodense cortical cysts. 4. Colonic diverticulosis. No diverticulitis. Code(s): D72.829 - ELEVATED WHITE BLOOD CELL COUNT, UNSPECIFIED (9) Abdominal pain Current Visit: Yes Status: Acute Qualifiers: Assessment & Plan: - 2:2 Mesenteric panniculitis. 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 Assessment & Plan: - Lantus, humalog with humalog s/s - accuchecks ac/hs - I dose of 10units IV regular insulin gave at 15:46 09/22 - BS continues to be elevated Code(s): E11.9 - TYPE 2 DIABETES MELLITUS WITHOUT COMPLICATIONS (11) [facility] (current) use of anticoagulants Current Visit: No Status: Chronic Assessment & Plan: - reduce eliquis to 2.5 BID d/t kidney function per suggestion of pharmacy 09/22 - cardiology increased eliquis 5mg po BID Code(s): Z79.01 - SNF (CURRENT) USE OF ANTICOAGULANTS (12) Hypothyroidism Current Visit: Yes Status: Acute Assessment & Plan: - TSH in am - Continue Synthroid 09/22 - no lab pt refused Code(s): E03.9 - HYPOTHYROIDISM, UNSPECIFIED (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 Assessment & Plan: - appears chronic per records - as seen on ct - abd pain resolved Code(s): K65.4 - SCLEROSING MESENTERITIS Code(s): K65.4 - SCLEROSING MESENTERITIS - Discharge Discharge Date: 09/22/23 Disposition: DC TO OTHER HOSP Condition: Fair Prescriptions: Continue Montelukast Sodium 10 mg [Singulair 10 MG] 10 mg PO HS Buspirone HCl 5 mg [Buspar 5 mg] 5 mg PO BID Famotidine 20 mg [Pepcid 20 MG] 20 mg PO BID Cetirizine HCl [Zyrtec] 10 mg PO DAILY Losartan Potassium [Cozaar] 25 mg PO DAILY Pregabalin 50 mg [Lyrica 50MG] 50 mg PO HS Insulin Glargine [Lantus Insulin] 28 unit SQ QAM Apixaban [Eliquis 5 mg Tablet] 5 mg PO BID Cyanocobalamin (Vitamin B-12) [Vitamin B-12] 1,000 mcg PO DAILY Lactobacillus Acidophilus [Acidophilus TABLET] 1 tab PO DAILY Aspirin EC 81 mg [Ecotrin 81 mg] 81 mg PO DAILY Folic Acid 1 mg [Folate 1 mg] 1 mg PO DAILY Ferrous Sulfate 325 mg [Feosol 325 mg] 325 mg PO BID Calcium Carbonate 750 mg [Tums EX 750 MG] 2 tab PO BID Acetaminophen [Tylenol] 650 mg PO Q6HPRN PRN PRN Reason: Pain Levothyroxine Sodium [Synthroid] 250 mcg PO DAILY Furosemide 40 mg [Lasix 40 MG] 40 mg PO DAILY Metoprolol Tartrate 50 mg [Lopressor 50 MG] 100 mg PO BID #60 tab Furosemide 40 mg [Lasix 40 MG] 20 mg PO DAILY calcitrioL [Calcitriol] 0.25 mcg PO BID Budesonide/Formoterol Fumarate [Budesonide-Formoterol 80-4.5] 2 puffs IH BID dilTIAZem HCl [Diltiazem 24Hr ER (Cd)] 240 mg PO DAILY Insulin Lispro [Humalog] 12 unit SQ BID Insulin Lispro [Humalog] 18 unit SQ 1600 Follow up with: JANNA CHAWLA DO [Primary Care Provider] - HOMER HUNT [CONSULTING PHYSICIAN] - Eduardo Cordova MD [CONSULTING PHYSICIAN] -
[2023-09-22] MEDS: Lopressor 25MG Tab PO SCH (15:49)
[2023-09-22] MEDS ORDERED: XYLOCAINE 1% HCL 20 ML MDV ONE (17:36)
[2023-09-22 19:06] LABS: Hematocrit 37.1 % (35-47); Mean Cell Volume 93.2 fL (78-100); Mean Corpuscular Hemoglobin 30.2 pg (26-32); Mean Corpuscular Hgb Concent. 32.3 g/dL (32-36); Mean Platelet Volume 11.8 fL (7.5-11.0); Platelet Count 362 x10^3/uL (150-450); Red Blood Count 3.98 x10^6/uL (4.1-5.4); Red Cell Distribution Width 13.2 % (11.5-14.0)
--- NOTE | 2023-09-22 19:21 | XRAY ---
CLINICAL HISTORY: Central line placement TECHNIQUE: X-ray of the chest, AP view COMPARISON: CT chest done on 09/21/2023 FINDINGS: A central line is seen in situ with its tip at the cavoatrial junction, in an appropriate location. A radiographic examination of the chest demonstrates some fine fibrotic scarring in bilateral lower lobes with septal thickening. There is a 7.0 mm calcified ovoid opacity in the right mid-lung zone, possibly a calcified granuloma. No collapse or consolidation is seen. Normal configuration of the mediastinum. The verenice are slightly bulky. The cardiac size is mildly enlarged. No definite evidence of pneumothorax or pleural effusions on either side. IMPRESSION: 1. Central venous catheter in situ with its tip in an appropriate location at cavoatrial junction. 2. Mild cardiomegaly with bilateral bulky hilas and fine reticular shadowing in bilateral lower lobes, requiring clinical correlation. 3. A 7.0 mm calcified ovoid opacity in the right mid-lung zone, possibly a calcified granuloma. Electronically Signed by: Claudine Monge MD. (09/22/2023 19:17:55 EST)
[2023-09-22] MEDS: Furosemide 100mg/10 ml Vial IV SCH (19:44)
[2023-09-22 19:52] LABS: ALBUMIN 4.5 g/dL (3.5-5.0); ANION GAP 18.5 MEQ/L (5-15); BILIRUBIN,TOTAL 0.4 mg/dL (0.2-1.3); Calcium 6.2 mg/dL (8.4-10.2); Creatinine 1 2.29 mg/dL (0.52-1.04); EST GLOMERULAR FILTRATION RATE 21.3 ML/MIN; Potassium 4.3 mmol/L (3.5-5.1); TSH, 3RD Generation 38.2 mIU/L (0.47-4.68); Total Protein 8.3 g/dL (6.3-8.2)
[2023-09-22] MEDS: XYLOCAINE 1% HCL 20 ML MDV IJ ONE (19:58)
[2023-09-22] MEDS: ELIQUIS 2.5 MG TABLET PO SCH (21:27)
[2023-09-23] MEDS ORDERED: Toprol-Xl 25MG Tablets ONE (00:01)
[2023-09-23] MEDS: TYLENOL 325 MG PO PRN (00:07)
[2023-09-23] MEDS ORDERED: Glutose 15 GM ORAL GEL PO ONE (04:48)
[2023-09-23 04:55] LABS: Hematocrit 34.4 % (35-47); Hemoglobin 11.2 g/dL (12.0-16.0); Mean Cell Volume 92.2 fL (78-100); Mean Corpuscular Hgb Concent. 32.6 g/dL (32-36); Mean Platelet Volume 11.8 fL (7.5-11.0); Platelet Count 356 x10^3/uL (150-450); Red Blood Count 3.73 x10^6/uL (4.1-5.4); Red Cell Distribution Width 13.3 % (11.5-14.0); White Blood Count 16.8 x10^3/uL (4.0-10.5)
[2023-09-23] MEDS ORDERED: Glutose 15 GM ORAL GEL PO PRN (05:01)
[2023-09-23 05:23] LABS: ALBUMIN 4.1 g/dL (3.5-5.0); BILIRUBIN,TOTAL 0.3 mg/dL (0.2-1.3); Calcium 6.4 mg/dL (8.4-10.2); Creatinine 1 2.35 mg/dL (0.52-1.04); EST GLOMERULAR FILTRATION RATE 20.7 ML/MIN; Potassium 3.3 mmol/L (3.5-5.1); Total Protein 7.7 g/dL (6.3-8.2)
[2023-09-23 07:21] VITALS: BP 109/64; TEMP 97.8
[2023-09-23 07:59] VITALS: PULSE 136; RESP 20; O2SAT 95
[2023-09-23] MEDS ORDERED: HUMALOG SQ PRN (08:03)
[2023-09-23] MEDS: Klor Con PO SCH (09:41)
[2023-09-23] MEDS: Furosemide 100mg/10 ml Vial IV SCH (11:01)
--- NOTE | 2023-09-23 12:13 | PCM.DS ---
Discharge Summary Date of Admission: 09/21/23 05:02 Date of Discharge: 09/23/23 Admitting Physician: DEBI ZAMAN MD Consults: Consults on Case 09/21/23 15:51 Consult Cardiology ROUTINE 09/22/23 13:21 Consult Nephrology ROUTINE 09/22/23 15:21 Nutritional Consult ROUTINE 09/23/23 05:01 Notify Physician ROUTINE Primary Care Provider: JANNA CHAWLA DO Allergies Allergies albuterol Allergy (Intermediate, Verified 09/21/23 02:12) Swelling of Tongue and Lips propranolol [From Inderal LA] Allergy (Intermediate, Verified 09/21/23 02:12) red face and ears levofloxacin [From Levaquin] Allergy (Unknown, Verified 09/21/23 02:12) clonazepam [From Klonopin] Allergy (Verified 09/21/23 02:12) Tightness of Throat tongue swollen metoclopramide [From Reglan] Allergy (Verified 09/21/23 02:12) propranolol HCl [From Inderal LA] Allergy (Verified 09/21/23 02:12) Swelling of Tongue and Lips red face and ears Sulfa (Sulfonamide Antibiotics) Allergy (Verified 09/21/23 02:12) Swelling of Tongue and Lips throat swell,ears red terfenadine Allergy (Verified 09/21/23 02:12) venom-honey bee [bee venom (honey bee)] Allergy (Verified 09/21/23 02:12) Hives large hives zanamivir [From Relenza Diskhaler] Allergy (Verified 09/21/23 02:12) Swelling of Tongue and Lips throat tightness cilostazol [From Pletal] Adverse Reaction (Severe, Verified 09/21/23 02:12) Swelling of Tongue and Lips ticagrelor [From Brilinta] Adverse Reaction (Severe, Verified 11/01/22 16:50) Swelling of Tongue and Lips Hospital Summary - Hospital Course Hospital Course: 09/21/23 is a 78 year old female with PMHX of TIA, peripheral neuropathy, arrhythmia, CHF, hyperlipidemia, HTN, IA, COPD, type II DM, hypothyroidism, GERD, and breast cancer. She presented to our ED via EMS for evaluation of abdominal pain. Patient states shortly after the abdominal pain started she developed shortness of breath. Upon arrival to our ED patient was tachycardic A-fib with RVR. Abdominal pain is diffuse. No nausea vomiting or diaphoresis. Symptoms are progressive. Symptoms are moderate in intensity. No specific worsening or improving factors. Patient denies a history of the same. She voic es no other complaints or concerns at this time. CT chest and Abd pelvis pending. In ER [facility] for A-fib RVR was ordered but not started. She was given ASA. Cardiology consulted. For SOB she was given steroids, duonebs, ceftriaxone, zithromax. Glucose has increased since admission most likely r/t steroids. High dose s/s humalog started. Pt starting to get confused with elevated glucose. Pt refusing lab to draw further testing at this time. She denies CP, SOB, abd pain resolved, N/V/D. She lives in assisted living and may need rehab at d/c. 09/22/23 Pt is sitting on the side of the bed awake and alert today. She was stuck 1 time by lab this am and she refused labs after this. She explains she will not be stuck repeatedly and she has the right to do so. Explained in order to treat her properly we need to have labs. Right arm where IV is, is starting to swell. Asked nurse to remove. OK with mid or picc line. She is unable to have this done without nehprology clearance. Awaiting nephro consult. Cardiology made recommendations for metoprolol, eliquis, and lasix IV. Per cardiology if this does not help transfer pt. Unable to get troponins as pt will not allow. She is SOB, heart rhythm in a-fib, a-flutter. Continue antibiotics for UTI. She is irritable and noncompliant with care. 09/23/23 Pt sitting up in bed. She continues to be SOB with rapid a-fib, a-flutter. [facility]t [facility] issues. She is scheduled to leave today. She was able to get a central line by the ER physician last night. This was ordered by cardiology last night. Cardilogy recs did not affect her heart rate and therefore continues to need higher level of care. She denies CP, abd. pain, N/V/D. - Vitals & Intake/Output Vital Signs: Vital Signs Temperature 97.8 F 09/23/23 07:20 Pulse Rate 136 H 09/23/23 07:56 Respiratory Rate 20 09/23/23 07:56 Blood Pressure 109/64 09/23/23 07:20 O2 Sat by Pulse Oximetry 95 09/23/23 07:56 Intake & Output: Intake & Output 09/21/23 09/22/23 09/23/23 09/24/23 11:59 11:59 11:59 11:59 Intake Total 120 3560 1280 Output Total 500 1225 2000 Balance -380 8585 -720 Weight 85.5 kg - Lab Result Diagrams: 09/23/23 04:44 09/23/23 04:44 Lab Results-Last 24 Hrs: Lab Results-Last 24 Hours 09/22/23 09/22/23 09/22/23 Range/Units 16:26 19:00 19:00 WBC 22.0 H (4.0-10.5) x10^3/uL RBC 3.98 L (4.1-5.4) x10^6/uL Hgb 12.0 (12.0-16.0) g/dL Hct 37.1 (35-47) % MCV 93.2 (78-100) fL MCH 30.2 (26-32) pg MCHC 32.3 (32-36) g/dL RDW 13.2 (11.5-14.0) % Plt Count 362 (150-450) x10^3/uL MPV 11.8 H (7.5-11.0) fL D-Dimer (0.0-0.50) mg/L Sodium 136 L (137-145) mmol/L Potassium 4.3 (3.5-5.1) mmol/L Chloride 99 (98-107) mmol/L Carbon Dioxide 23 (22-30) mmol/L Anion Gap 18.5 H (5-15) MEQ/L BUN 61 H (7-17) mg/dL Creatinine 2.29 H (0.52-1.04) mg/dL Estimated GFR 21.3 ML/MIN Glucose 228 H (74-106) mg/dL POC Glucometer 285 H (74 to 106) mg/dL Lactic Acid (0.4-2.0) Calcium 6.2 L (8.4-10.2) mg/dL Total Bilirubin 0.40 (0.2-1.3) mg/dL AST 30 (14-36) U/L ALT 26 (0-35) U/L Alkaline Phosphatase 72 (38-126) U/L Troponin I (0.000-0.034) ng/mL Serum Total Protein 8.3 H (6.3-8.2) g/dL Albumin 4.5 (3.5-5.0) g/dL 25-OH Vitamin D Total (30-100) ng/mL TSH 3rd Generation 38.200 H (0.47-4.68) mIU/L 09/22/23 09/22/23 09/22/23 Range/Units 19:00 19:00 19:00 WBC (4.0-10.5) x10^3/uL RBC (4.1-5.4) x10^6/uL Hgb (12.0-16.0) g/dL Hct (35-47) % MCV (78-100) fL MCH (26-32) pg MCHC (32-36) g/dL RDW (11.5-14.0) % Plt Count (150-450) x10^3/uL MPV (7.5-11.0) fL D-Dimer 0.69 H* (0.0-0.50) mg/L Sodium (137-145) mmol/L Potassium (3.5-5.1) mmol/L Chloride (98-107) mmol/L Carbon Dioxide (22-30) mmol/L Anion Gap (5-15) MEQ/L BUN (7-17) mg/dL Creatinine (0.52-1.04) mg/dL Estimated GFR ML/MIN Glucose (74-106) mg/dL POC Glucometer (74 to 106) mg/dL Lactic Acid 2.6 H (0.4-2.0) Calcium (8.4-10.2) mg/dL Total Bilirubin (0.2-1.3) mg/dL AST (14-36) U/L ALT (0-35) U/L Alkaline Phosphatase (38-126) U/L Troponin I (0.000-0.034) ng/mL Serum Total Protein (6.3-8.2) g/dL Albumin (3.5-5.0) g/dL 25-OH Vitamin D Total 27.4 L (30-100) ng/mL TSH 3rd Generation (0.47-4.68) mIU/L 09/22/23 09/22/23 09/23/23 Range/Units 19:00 20:59 04:44 WBC 16.8 H (4.0-10.5) x10^3/uL RBC 3.73 L (4.1-5.4) x10^6/uL Hgb 11.2 L (12.0-16.0) g/dL Hct 34.4 L (35-47) % MCV 92.2 (78-100) fL MCH 30.0 (26-32) pg MCHC 32.6 (32-36) g/dL RDW 13.3 (11.5-14.0) % Plt Count 356 (150-450) x10^3/uL MPV 11.8 H (7.5-11.0) fL D-Dimer (0.0-0.50) mg/L Sodium (137-145) mmol/L Potassium (3.5-5.1) mmol/L Chloride (98-107) mmol/L Carbon Dioxide (22-30) mmol/L Anion Gap (5-15) MEQ/L BUN (7-17) mg/dL Creatinine (0.52-1.04) mg/dL Estimated GFR ML/MIN Glucose (74-106) mg/dL POC Glucometer 212 H (74 to 106) mg/dL Lactic Acid (0.4-2.0) Calcium (8.4-10.2) mg/dL Total Bilirubin (0.2-1.3) mg/dL AST (14-36) U/L ALT (0-35) U/L Alkaline Phosphatase (38-126) U/L Troponin I 0.038 H* (0.000-0.034) ng/mL Serum Total Protein (6.3-8.2) g/dL Albumin (3.5-5.0) g/dL 25-OH Vitamin D Total (30-100) ng/mL TSH 3rd Generation (0.47-4.68) mIU/L 09/23/23 09/23/23 09/23/23 Range/Units 04:44 04:45 05:33 WBC (4.0-10.5) x10^3/uL RBC (4.1-5.4) x10^6/uL Hgb (12.0-16.0) g/dL Hct (35-47) % MCV (78-100) fL MCH (26-32) pg MCHC (32-36) g/dL RDW (11.5-14.0) % Plt Count (150-450) x10^3/uL MPV (7.5-11.0) fL D-Dimer (0.0-0.50) mg/L Sodium 137 (137-145) mmol/L Potassium 3.3 L D (3.5-5.1) mmol/L Chloride 99 (98-107) mmol/L Carbon Dioxide 26 (22-30) mmol/L Anion Gap 15.0 (5-15) MEQ/L BUN 62 H (7-17) mg/dL Creatinine 2.35 H (0.52-1.04) mg/dL Estimated GFR 20.7 ML/MIN Glucose 35 L* (74-106) mg/dL POC Glucometer 34 L* 114 H (74 to 106) mg/dL Lactic Acid (0.4-2.0) Calcium 6.4 L (8.4-10.2) mg/dL Total Bilirubin 0.30 (0.2-1.3) mg/dL AST 29 (14-36) U/L ALT 25 (0-35) U/L Alkaline Phosphatase 70 (38-126) U/L Troponin I (0.000-0.034) ng/mL Serum Total Protein 7.7 (6.3-8.2) g/dL Albumin 4.1 (3.5-5.0) g/dL 25-OH Vitamin D Total (30-100) ng/mL TSH 3rd Generation (0.47-4.68) mIU/L 09/23/23 09/23/23 Range/Units 08:49 11:34 WBC (4.0-10.5) x10^3/uL RBC (4.1-5.4) x10^6/uL Hgb (12.0-16.0) g/dL Hct (35-47) % MCV (78-100) fL MCH (26-32) pg MCHC (32-36) g/dL RDW (11.5-14.0) % Plt Count (150-450) x10^3/uL MPV (7.5-11.0) fL D-Dimer (0.0-0.50) mg/L Sodium (137-145) mmol/L Potassium (3.5-5.1) mmol/L Chloride (98-107) mmol/L Carbon Dioxide (22-30) mmol/L Anion Gap (5-15) MEQ/L BUN (7-17) mg/dL Creatinine (0.52-1.04) mg/dL Estimated GFR ML/MIN Glucose (74-106) mg/dL POC Glucometer 238 H (74 to 106) mg/dL Lactic Acid 1.5 (0.4-2.0) Calcium (8.4-10.2) mg/dL Total Bilirubin (0.2-1.3) mg/dL AST (14-36) U/L ALT (0-35) U/L Alkaline Phosphatase (38-126) U/L Troponin I (0.000-0.034) ng/mL Serum Total Protein (6.3-8.2) g/dL Albumin (3.5-5.0) g/dL 25-OH Vitamin D Total (30-100) ng/mL TSH 3rd Generation (0.47-4.68) mIU/L Micro Results-Entire Visit: Microbiology 09/20/23 22:51 Urine Culture - Final Catherized Escherichia Coli 09/20/23 21:01 Blood Culture Gram Stain - Final Blood Blood Culture - Final Escherichia Coli 09/20/23 20:40 Blood Culture Gram Stain - Final Blood Blood Culture - Final Escherichia Coli Accuchecks Date 09/23/23 Date 09/23/23 Date 09/23/23 Date 09/23/23 Date 09/22/23 Date 09/22/23 Time 11:35 Time 07:20 Time 05:38 Time 21:00 - Radiology Exams Ordered Rad Exams-Entire Visit: Radiology Procedures Category Date Time Status CHEST 1 VIEW (PORTABLE) Stat Exams 09/22/23 18:21 Completed - Procedures and Test Procedures and Tests throughout Hospitalization: Therapy Orders & Screens 09/20/23 20:42 BiPap/CPAP STAT Comment: 09/21/23 05:29 Respiratory MDI BID Comment: Diagnosis: A-fib with RVR, fever, urinary tract infection 09/21/23 05:37 Respiratory Therapy Assessment DAILY Comment: Diagnosis: A-fib with RVR, fever, urinary tract infection 09/21/23 09:21 Oxygen Nasal Cannula 2 lpm Comment: Diagnosis: A-fib with RVR, fever, urinary tract infection 09/21/23 15:59 PT Eval & Treat ( Order) ONCE Reason for Eval:: weakness, lives in assisted living, may need rehab at d/c Diagnosis: A-fib with RVR, fever, urinary tract infection OT Eval and Treat (MD Order) ONCE Comment: Physician Instructions: Reason For Exam: Diagnosis: A-fib with RVR, fever, urinary tract infection 09/22/23 11:21 EKG STAT Comment: Diagnosis: A-fib with RVR, fever, urinary tract infection Discharge Exam General Appearance: mild distress, alert Neurologic Exam: alert, oriented x 3, cooperative, normal mood/affect, nml cerebellar function, sensation nml, No motor deficits Eye Exam: PERRL, EOMI, eyes nml inspection Ears, Nose, Throat Exam: normal ENT inspection, pharynx normal, moist mucous me mbranes Neck Exam: normal inspection, non-tender, supple, full range of motion Respiratory Exam: crackles/rales, wheezing, No respiratory distress Cardiovascular Exam: normal heart sounds, irregular, edema (BLLE) Gastrointestinal/Abdomen Exam: soft, No tenderness, No mass Pelvic Exam: deferred Rectal Exam: deferred Back Exam: normal inspection, normal range of motion, No CVA tenderness, No vertebral tenderness Extremity Exam: normal inspection, normal range of motion Skin Exam: normal color, warm, dry Final Diagnosis/Problem List - Final Discharge Diagnosis/Problem (1) CHF (congestive heart failure) Current Visit: No Status: Acute Code(s): I50.9 - HEART FAILURE, UNSPECIFIED (2) Atrial fibrillation with RVR Current Visit: Yes Status: Acute Code(s): I48.91 - UNSPECIFIED ATRIAL FIBRILLATION (3) Dyspnea Current Visit: Yes Status: Acute Code(s): R06.00 - DYSPNEA, UNSPECIFIED (4) Acute renal failure superimposed on chronic kidney disease Current Visit: Yes Status: Acute Code(s): N17.9 - ACUTE KIDNEY FAILURE, UNSPECIFIED; N18.9 - CHRONIC KIDNEY DISEASE, UNSPECIFIED (5) Hyponatremia Current Visit: Yes Status: Acute Code(s): E87.1 - HYPO-OSMOLALITY AND HYPONATREMIA (6) Troponin level elevated Current Visit: Yes Status: Acute Code(s): R79.89 - OTHER SPECIFIED ABNORMAL FINDINGS OF BLOOD CHEMISTRY (7) UTI (urinary tract infection) Current Visit: Yes Status: Acute Code(s): N39.0 - URINARY TRACT INFECTION, SITE NOT SPECIFIED (8) Leukocytosis Current Visit: Yes Status: Acute Code(s): D72.829 - ELEVATED WHITE BLOOD CELL COUNT, UNSPECIFIED (9) Abdominal pain Current Visit: Yes Status: Acute Code(s): R10.9 - UNSPECIFIED ABDOMINAL PAIN (10) Diabetes mellitus Current Visit: No Status: Chronic Code(s): E11.9 - TYPE 2 DIABETES MELLITUS WITHOUT COMPLICATIONS (11) [facility] (current) use of anticoagulants Current Visit: No Status: Chronic Code(s): Z79.01 - PENITENTIARY (CURRENT) USE OF ANTICOAGULANTS (12) Hypothyroidism Current Visit: Yes Status: Acute Code(s): E03.9 - HYPOTHYROIDISM, UNSPECIFIED (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 The M-mode 2D, and Doppler echocardiogram including color flow Doppler shows the left ventricle is normal in size. There is no thrombus present. There is mild concentric left ventricular hypertrophy. The left ventricular systolic function is mildly decreased and the ejection fraction is calculated to be 47%. The right ventricle is normal. The left atrium is moderately dilated. The interatrial septum is intact. The right atrium is normal. The aortic valve is not well visualized. There is mitral valve calcification associated with mild mitral r egurgitation. There is mild tricuspid regurgitation. The right ventricular systolic pressure is calculated to be 51 mm of Mercury. The pulmonic valve is not well visualized. The aortic root is not well visualized. There is no pericardial effusion present. IMPRESSION: 1) MILD CONCENTRIC LEFT VENTRICULAR HYPERTROPHY. 2) MILD DECREASE IN LEFT VENTRICULAR SYSTOLIC FUNCTION. 3) MODERATE LEFT ATRIAL DILATATION. 4) MILD MITRAL REGURGITATION. 5) MILD TRICUSPID REGURGITATION. 6) SEVERE PULMONARY HYPERTENSION 09/22 - pt refused AM labs - awaiting line placement Code(s): I50.9 - HEART FAILURE, UNSPECIFIED (2) Atrial fibrillation with RVR Current Visit: Yes Status: Acute Assessment & Plan: - cardiology consult - Chronic a-fib hx - reduce eliquis to 2.5 BID d/t kidney function - tele 09/22 - a-fib/aflutter - cardiology consult - card recs- metoprolol, lasix, eliquis dosing - in computer per nurse 09/23 - Continued a-fib/ a-flutter Code(s): I48.91 - UNSPECIFIED ATRIAL FIBRILLATION (3) Dyspnea Current Visit: Yes Status: Acute Assessment & Plan: - 2;2 a-fib rvr - on 3LNC - 94% - Baseline RA - 2:2 TIM, CHF, A-Fib RVR 09/22 - RA 92% 09/23 - RA 95% - Continued dyspnea Code(s): R06.00 - DYSPNEA, UNSPECIFIED (4) Acute renal failure superimposed on chronic kidney disease Current Visit: Yes Status: Acute Assessment & Plan: - creat 2.53, baseline 1.75 - 2:2 UTI - IVF 09/22 - No AM labs pt refused - awaiting nephro consult to clear for line placement 09/23 - creat 2.35 Code(s): N17.9 - ACUTE KIDNEY FAILURE, UNSPECIFIED; N18.9 - CHRONIC KIDNEY DISEASE, UNSPECIFIED (5) Hyponatremia Current Visit: Yes Status: Acute Assessment & Plan: - Na+ 136- mild - IVF - trend 09/22 - no AM labs 09/23 - resolved Code(s): E87.1 - HYPO-OSMOLALITY AND HYPONATREMIA (6) Troponin level elevated Current Visit: Yes Status: Acute Assessment & Plan: - Trop <0.012, 0.075, 0.084 - Cardiology consult - 2:2 TIM, A-fib RVR 09/22 - repeat trops ordered for Cp- Pt refused - EKG- reviewed- a-flutter Code(s): R79.89 - OTHER SPECIFIED ABNORMAL FINDINGS OF BLOOD CHEMISTRY (7) UTI (urinary tract infection) Current Visit: Yes Status: Acute Assessment & Plan: - ceftriaxone started in ER- Continue - IVF - UC gram negative- sensitivity pending Code(s): N39.0 - URINARY TRACT INFECTION, SITE NOT SPECIFIED (8) Leukocytosis Current Visit: Yes Status: Acute Assessment & Plan: - BC x2 - both have gram negative rods- sensitivity pending - Steroids gave in ER - + UTI- atbx - Lactic acid pending - Chest CT w/o contrast 09/21/23 IMPRESSION: Unenhanced CT chest reveals bilateral pulmonary mosaic groundglass changes and mild bilateral peribronchial soft tissue thickening in the lower lobes. Transverse cardiac diameter is enlarged with aortic valve repair. In the appropriate clinical setting, findings may be due to atypical pulmonary infection. Another possibility would be of early phase pulmonary edema. Needs clinical correlation. Ancillary findings: Multiple tiny calcified hepatosplenic granulomas, bilateral simple renal cortical cysts, and small hiatal hernia. Thoracic spine diffuse idiopathic skeletal hyperostosis [DISH]. - CT abd pelvis 09/21 IMPRESSION: 1. Innumerable hepatic and splenic calcific foci, likely post granulomatous infection sequel. 2. Mesenteric panniculitis. 3. Bilateral renal hypodense cortical cysts. 4. Colonic diverticulosis. No diverticulitis. 09/23 -WBC 16.8- improved - BC X2 and UC all positive for E-coli - Lactic acid 1.5 Code(s): D72.829 - ELEVATED WHITE BLOOD CELL COUNT, UNSPECIFIED (9) Abdominal pain Current Visit: Yes Status: Acute Qualifiers: Assessment & Plan: - 2:2 Mesenteric panniculitis. 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 Assessment & Plan: - Lantus, humalog with humalog s/s - accuchecks ac/hs - I dose of 10units IV regular insulin gave at 15:46 09/22 - BS continues to be elevated 09/23 - pt hypoglycemic this am - She is a brittle diabetic Code(s): E11.9 - TYPE 2 DIABETES MELLITUS WITHOUT COMPLICATIONS (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 Current Visit: No Status: Chronic Assessment & Plan: - reduce eliquis to 2.5 BID d/t kidney function per suggestion of pharmacy 09/22 - cardiology increased eliquis 5mg po BID Code(s): Z79.01 - PENITENTIARY (CURRENT) USE OF ANTICOAGULANTS (12) Hypothyroidism Current Visit: Yes Status: Acute Assessment & Plan: - TSH in am - Continue Synthroid 09/22 - no lab pt refused 09/23 - TSH 38.200 - Continue same dose of synthroid will need OP f/u Code(s): E03.9 - HYPOTHYROIDISM, UNSPECIFIED (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 Assessment & Plan: - appears chronic per records - as seen on ct - abd pain resolved Code(s): K65.4 - SCLEROSING MESENTERITIS Code(s): K65.4 - SCLEROSING MESENTERITIS Code(s): K65.4 - SCLEROSING MESENTERITIS - Discharge Discharge Date: 09/23/23 Disposition: DC TO OTHER HOSP Condition: Fair Prescriptions: Continue Montelukast Sodium 10 mg [Singulair 10 MG] 10 mg PO HS Buspirone HCl 5 mg [Buspar 5 mg] 5 mg PO BID Famotidine 20 mg [Pepcid 20 MG] 20 mg PO BID Cetirizine HCl [Zyrtec] 10 mg PO DAILY Losartan Potassium [Cozaar] 25 mg PO DAILY Pregabalin 50 mg [Lyrica 50MG] 50 mg PO HS Insulin Glargine [Lantus Insulin] 28 unit SQ QAM Apixaban [Eliquis 5 mg Tablet] 5 mg PO BID Cyanocobalamin (Vitamin B-12) [Vitamin B-12] 1,000 mcg PO DAILY Lactobacillus Acidophilus [Acidophilus TABLET] 1 tab PO DAILY Aspirin EC 81 mg [Ecotrin 81 mg] 81 mg PO DAILY Folic Acid 1 mg [Folate 1 mg] 1 mg PO DAILY Ferrous Sulfate 325 mg [Feosol 325 mg] 325 mg PO BID Calcium Carbonate 750 mg [Tums EX 750 MG] 2 tab PO BID Acetaminophen [Tylenol] 650 mg PO Q6HPRN PRN PRN Reason: Pain Levothyroxine Sodium [Synthroid] 250 mcg PO DAILY Furosemide 40 mg [Lasix 40 MG] 40 mg PO DAILY Metoprolol Tartrate 50 mg [Lopressor 50 MG] 100 mg PO BID #60 tab Furosemide 40 mg [Lasix 40 MG] 20 mg PO DAILY calcitrioL [Calcitriol] 0.25 mcg PO BID Budesonide/Formoterol Fumarate [Budesonide-Formoterol 80-4.5] 2 puffs IH BID dilTIAZem HCl [Diltiazem 24Hr ER (Cd)] 240 mg PO DAILY Insulin Lispro [Humalog] 12 unit SQ BID Insulin Lispro [Humalog] 18 unit SQ 1600 Follow up with: JANNA CHAWLA DO [Primary Care Provider] - HOMER HUNT [CONSULTING PHYSICIAN] - Eduardo Cordova MD [CONSULTING PHYSICIAN] - Forms: Ambulance Transport Record, Transfer Record [facility]
== END 2023-09-23 11:45 ==
LOC: ED 20:17 → MED SURG 09-21 05:02
PROVIDERS: ADMIT Student in an Organized Health Care Education/Training Program; ATTEND Student in an Organized Health Care Education/Training Program
DX: E11.22 Type 2 diabetes mellitus with diabetic chronic kidney disease (principal); I13.0 Hypertensive heart and chronic kidney disease with heart failure and stage 1 through stage 4 chronic kidney disease, or unspecified chronic kidney disease; I50.9 Heart failure, unspecified; N18.4 Chronic kidney disease, stage 4 (severe); I48.20 Chronic atrial fibrillation, unspecified; R06.00 Dyspnea, unspecified; N17.9 Acute kidney failure, unspecified; E87.1 Hypo-osmolality and hyponatremia; R79.89 Other specified abnormal findings of blood chemistry; N39.0 Urinary tract infection, site not specified; D72.829 Elevated white blood cell count, unspecified; R10.9 Unspecified abdominal pain; E78.5 Hyperlipidemia, unspecified; K65.4 Sclerosing mesenteritis; I25.2 Old myocardial infarction; E03.9 Hypothyroidism, unspecified; Z79.01 Long term (current) use of anticoagulants; Z79.899 Other long term (current) drug therapy; Z20.828 Contact with and (suspected) exposure to other viral communicable diseases; Z79.4 Long term (current) use of insulin; Z86.73 Personal history of transient ischemic attack (TIA), and cerebral infarction without residual deficits; Z85.3 Personal history of malignant neoplasm of breast
CPT/HCPCS: 0241U; 36000; 36415; 51702; 71045; 71250; 74176; 80053; 81001; 82306; 82947; 83605; 83880; 84443; 84484; 85025; 85027; 85379; 87040; 87077; 87086; 87186; 93005; 93041; 93268; 94002; 94640; 94760; 94762; 96374; 99285; J0456; J0696; J1815; J1817; J1940; J2930; Q0162; Q3014; A9270-GY; G0378

== ENCOUNTER 2023-09-28 07:33 | Observation (INO) | payer MEDICARE ==
--- NOTE | 2023-09-28 07:44 | ERPHSYRPT ---
- History of Present Illness Time Seen by Provider: 09/28/23 07:44 Source: patient, EMS, old records Exam Limitations: no limitations Physician History: This is an overweight 78-year-old white female patient of Dr. Chawla who was brought into the emergency department by the factory manager service for shortness of breath symptoms. Patient has a history of COPD. Her room air oxygenation, saturation level on arrival to the emergency department is 90%. Patient has difficult peripheral IV access issues. No steroids were given the patient. Patient also is allergic to albuterol where her ears become red. Patient arrives with expiratory wheezing diffusely bilaterally. Patient was recently admitted into the [facility] (09/21/2023) and discharged/transfe rred to [facility] on 09/23/2023. Patient was discharged from [facility] yesterday, afternoon of 09/27/2023. Patient began having wheezing episodes last evening and it was worse today. I reviewed the inpatient hospital records from [facility]. We are awaiting the inpatient records from [facility] so that I can review them. Patient has a history of gastroesophageal reflux disease, insulin-dependent diabetes, atrial fibrillation on Eliquis, TIAs, peripheral neuropathy, CHF, hyperlipidemia, hypertension and hypothyroidism. Patient denies chest pain at this time. She has no abdominal pain. She has not had a cough or fever. Timing/Duration: yesterday Activities at Onset: none Severity of Dyspnea-Max: moderate Severity of Dyspnea-Current: moderate Possible Cause: occasional episodes Modifying Factors: Improves With: activity (Worsens), oxygen (Improves) Associated Symptoms: anxiety, wheezing, No chest pain/discomfort Allergies/Adverse Reactions: albuterol Allergy (Intermediate, Verified 09/28/23 07:36) Swelling of Tongue and Lips propranolol [From Inderal LA] Allergy (Intermediate, Verified 09/28/23 07:36) red face and ears levofloxacin [From Levaquin] Allergy (Unknown, Verified 09/28/23 07:36) clonazepam [From Klonopin] Allergy (Verified 09/28/23 07:36) Tightness of Throat tongue swollen metoclopramide [From Reglan] Allergy (Verified 09/28/23 07:36) propranolol HCl [From Inderal LA] Allergy (Verified 09/28/23 07:36) Swelling of Tongue and Lips red face and ears Sulfa (Sulfonamide Antibiotics) Allergy (Verified 09/28/23 07:36) Swelling of Tongue and Lips throat swell,ears red terfenadine Allergy (Verified 09/28/23 07:36) venom-honey bee [bee venom (honey bee)] Allergy (Verified 09/28/23 07:36) Hives large hives zanamivir [From Relenza Diskhaler] Allergy (Verified 09/28/23 07:36) Swelling of Tongue and Lips throat tightness cilostazol [From Pletal] Adverse Reaction (Severe, Verified 09/28/23 07:36) Swelling of Tongue and Lips ticagrelor [From Brilinta] Adverse Reaction (Severe, Verified 09/28/23 07:36) Swelling of Tongue and Lips Home Medications: Montelukast Sodium 10 mg [Singulair 10 MG] 10 mg PO HS 01/20/18 [History] Buspirone HCl 5 mg [Buspar 5 mg] 5 mg PO BID 12/02/20 [History] Cetirizine HCl [Zyrtec] 10 mg PO DAILY 12/02/20 [History] Famotidine 20 mg [Pepcid 20 MG] 20 mg PO BID 12/02/20 [History] Insulin Glargine [Lantus Insulin] 28 unit SQ QAM 07/06/22 [History] Pregabalin 50 mg [Lyrica 50MG] 50 mg PO HS 07/06/22 [History] Apixaban [Eliquis 5 mg Tablet] 5 mg PO BID 07/16/22 [History] Cyanocobalamin (Vitamin B-12) [Vitamin B-12] 1,000 mcg PO DAILY 07/16/22 [History] Acetaminophen [Tylenol] 650 mg PO Q6HPRN PRN 08/31/22 [History] Aspirin EC 81 mg [Ecotrin 81 mg] 81 mg PO DAILY 08/31/22 [History] Calcium Carbonate 750 mg [Tums EX 750 MG] 2 tab PO BID 08/31/22 [History] Ferrous Sulfate 325 mg [Feosol 325 mg] 325 mg PO BID 08/31/22 [History] Folic Acid 1 mg [Folate 1 mg] 1 mg PO DAILY 08/31/22 [History] Furosemide 40 mg [Lasix 40 MG] 40 mg PO DAILY 11/02/22 [History] Budesonide/Formoterol Fumarate [Budesonide-Formoterol 80-4.5] 2 puffs IH BID 09/21/23 [History] Insulin Lispro [Humalog] 12 unit SQ BID 09/21/23 [History] calcitrioL [Calcitriol] 0.25 mcg PO BID 09/21/23 [History] Dronedarone HCl [Multaq] 1 tab PO BID 09/28/23 [History] Insulin Lispro [Humalog] 18 unit SQ DAILY 09/28/23 [History] L. Acidophilus/L.bulgaricus [Floranex Tablet] 1 tab PO DAILY 09/28/23 [History] Levothyroxine Sodium 100 Mcg [Synthroid 100 Mcg] 200 mcg PO DAILY 09/28/23 [History] dilTIAZem HCL [Diltiazem 24Hr ER] 1 tab PO DAILY 09/28/23 [History] Hx Tetanus, Diphtheria Vaccination/Date Given: Yes Hx Influenza Vaccination/Date Given: Yes Hx Pneumococcal Vaccination/Date Given: Yes Travel Risk - International Travel Have you traveled outside of the country in past 3 weeks: No - Coronavirus Screening Are you exhibiting any of the following symptoms?: Yes Symptoms: Shortness of Breath Close contact with a COVID-19 positive Pt in past 14-21 Days: No - Vaccine Status Have you recieved a Covid-19 vaccination: Yes 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 - Vaccination Dates Date of 2cond Vaccination (if applicable): 09/2020 Comment: boost 05/27/21 - Review of Systems Constitutional: No Symptoms Eyes: No Symptoms Ears, Nose, & Throat: No Symptoms Respiratory: Dyspnea, Wheezing Cardiac: No Symptoms Abdominal/Gastrointestinal: No Symptoms Genitourinary Symptoms: No Symptoms Musculoskeletal: No Symptoms Skin: No Symptoms Neurological: No Symptoms Psychological: No Symptoms Endocrine: No Symptoms Hematologic/Lymphatic: No Symptoms Immunological/Allergic: No Symptoms All Other Systems: Reviewed and Negative - Past Medical History Pertinent Past Medical History: Yes Neurological History: TIA, Peripheral Neuropathy ENT History: Other Cardiac History: Arrhythmia, Congestive Heart Failure, High Cholesterol, Hypertension, Myocardial Infarction (CO) Respiratory History: CHF, COPD Endocrine Medical History: Diabetes Type II, Hypothyroidism Musculoskeletal History: No Pertinent History GI Medical History: Other, GERD History: No Pertinent History Psycho-Social History: Anxiety Female Reproductive Disorders: Breast Cancer Other Medical History: right eye retinal scratch November 2020, NEUROPATHY - Past Surgical History Past Surgical History: Yes Neuro Surgical History: No Pertinent History Cardiac: Other Respiratory: No Pertinent History Gastrointestinal: Hernia Repair Genitourinary: No Pertinent History Musculoskeletal: No Pertinent History Female Surgical History: Mastectomy, Lumpectomy Other Surgical History: left mastectomy 1993, right lumpectomy, right thyroid removed, left thyroid removed with goiter, pubic mass, left knee scope, valve replacement - Social History Smoking Status: Never smoker Exposure to second hand smoke: No Drug Use: none Patient Lives Alone: Yes - Nursing Vital Signs Nursing Vital Signs: Initial Vital Signs Blood Pressure 185/95 09/28/23 07:37 O2 Sat by Pulse Oximetry 96 09/28/23 07:37 Pain Scale Pain Intensity 0 - Physical Exam General Appearance: mild distress, alert, anxiety, obese Eye Exam: PERRL/EOMI, eyes nml inspection Ears, Nose, Throat Exam: hearing grossly normal, normal ENT inspection, normal pharynx Neck Exam: normal inspection, non-tender, supple, full range of motion Respiratory Exam: respiratory distress (Mild), airway intact, wheezing, No chest tenderness, No accessory muscle use Cardiovascular/Chest Exam: normal heart sounds, normal peripheral pulses, tachycardia Abdominal/Gastrointestinal Exam: soft, normal bowel sounds, No tenderness Rectal Exam: not done Extremity Exam: non-tender, normal range of motion, normal inspection Neurologic Exam: alert, oriented x 3, cooperative, project archivist II-XII nml as tested Skin Exam: normal color, warm, dry Lymphatic Exam: No adenopathy SpO2 Interpretation: normal O2 Delivery: Room Air - Course Nursing assessment & vital signs reviewed: Yes EKG Interpreted by Me: RATE (104), Sinus Tach, NORMAL AXIS, prolonged QT interval (Borderline), NORMAL QRS, Other (No acute ischemic changes on today's twelve-lead EKG.) Ordered Tests: Active Orders 24 hr Category Date Time Status Rn Ent STAT Care 09/28/23 07:52 Active EKG-ER Only STAT Care 09/28/23 07:51 Active IV Insertion STAT Care 09/28/23 07:51 Active Pulse Oximetry (ED) STAT Care 09/28/23 07:51 Active CHEST WITHOUT CONTRAST [CT] Stat Exams 09/28/23 09:22 Completed BLOOD CULTURE Stat Lab 09/28/23 07:51 Received CBC W DIFF Stat Lab 09/28/23 08:09 Completed CMP Stat Lab 09/28/23 08:09 Completed CULTURE,URINE Stat Lab 09/28/23 10:06 Ordered D-DIMER QUANTITATIVE Stat Lab 09/28/23 08:09 Completed Lactic Acid Stat Lab 09/28/23 07:51 Completed MAGNESIUM Stat Lab 09/28/23 08:09 Completed NT PRO BNPII Stat Lab 09/28/23 08:09 Completed TROPONIN Q4H Lab 09/28/23 08:09 Completed TROPONIN Q4H Lab 09/28/23 12:00 Ordered TROPONIN Q4H Lab 09/28/23 16:00 Ordered UA W/RFX UR CULTURE Stat Lab 09/28/23 10:06 Completed Respiratory Therapy Assessment DAILY RT 09/28/23 07:58 Active Medication Summary Discontinued Medications Generic Name Dose Route Start Last Admin Trade Name Freq PRN Reason Stop Dose Admin Methylprednisolone Sodium 0 mg 09/28/23 07:51 09/28/23 08:20 Succinate 125 mg/ Sterile IM 09/28/23 07:52 125 mg Water 2 ml STAT ONE Administration Furosemide 40 mg 09/28/23 09:22 09/28/23 09:49 Furosemide 40 Mg/4 Ml Vial IV 09/28/23 09:23 40 mg STAT ONE Administration Furosemide Confirm 09/28/23 09:48 Furosemide 40 Mg/4 Ml Vial Administered 09/28/23 09:49 Dose 40 mg .ROUTE .STK-MED ONE Ipratropium Social Circle Confirm 09/28/23 07:[address] Circle 0.5 Mg/Neb Administered 09/28/23 07:50 Dose 0.5 mg IH .STK-MED ONE Ipratropium Social Circle 0.5 mg 09/28/23 07:56 09/28/23 07:57 Ipratropium Social Circle 0.5 Mg/Neb IH 09/28/23 07:57 0.5 mg STAT ONE Administration Lidocaine HCl Confirm 09/28/23 08:59 Lidocaine - Mpf 2% 5 Ml Vial Administered 09/28/23 09:00 Dose 5 ml .ROUTE .STK-MED ONE Methylprednisolone Sodium Succinate Confirm 09/28/23 08:15 Methylprednis Sod Succ 125 Mg/2 Ml Vial Administered 09/28/23 08:16 Dose 125 mg .ROUTE .STK-MED ONE Potassium Chloride 10 meq 09/28/23 10:13 09/28/23 10:31 Potassium Chloride Tab 10 Meq Tab PO 09/28/23 10:14 10 meq STAT ONE Administration Potassium Chloride Confirm 09/28/23 10:31 Potassium Chloride Tab 10 Meq Tab Administered 09/28/23 10:32 Dose 10 meq .ROUTE .STK-MED ONE Sodium Chloride Confirm 09/28/23 07:49 Sodium Cl For Inhalation 3 Ml Ud Nebule Administered 09/28/23 07:50 Dose 3 ml IH .STK-MED ONE Sterile Water Confirm 09/28/23 08:15 Water For Injection,Sterile 10 Ml Vial Administered 09/28/23 08:16 Dose 10 ml IJ .STK-MED ONE Lab/Rad Data: Laboratory Result Diagrams 09/28/23 08:09 09/28/23 08:09 Laboratory Results 09/28/23 09/28/23 09/28/23 Range/Units 10:06 08:15 08:09 WBC (4.0-10.5) x10^3/uL RBC (4.1-5.4) x10^6/uL Hgb (12.0-16.0) g/dL Hct (35-47) % MCV (78-100) fL MCH (26-32) pg MCHC (32-36) g/dL RDW (11.5-14.0) % Plt Count (150-450) x10^3/uL MPV (7.5-11.0) fL Gran % (36.0-66.0) % Immature Gran % (Auto) (0.00-0.4) % Nucleat RBC Rel Count (0.00-0.1) % Eos # (Auto) (0-0.5) x10^3/uL Immature Gran # (Auto) (0.00-0.03) x10^3u/L Absolute Lymphs (auto) (1.0-4.6) x10^3/uL Absolute Monos (auto) (0.0-1.3) x10^3/uL Absolute Nucleated RBC (0.00-0.01) x10^3u/L Lymphocytes % (24.0-44.0) % Monocytes % (0.0-12.0) % Eosinophils % (0.00-5.0) % Basophils % (0.0-0.4) % Absolute Granulocytes (1.4-6.9) x10^3/uL Basophils # (0-0.4) x10^3/uL D-Dimer (0.0-0.50) mg/L Sodium (137-145) mmol/L Potassium (3.5-5.1) mmol/L Chloride (98-107) mmol/L Carbon Dioxide (22-30) mmol/L Anion Gap (5-15) MEQ/L BUN (7-17) mg/dL Creatinine (0.52-1.04) mg/dL Estimated GFR ML/MIN Glucose (74-106) mg/dL Lactic Acid (0.4-2.0) Calcium (8.4-10.2) mg/dL Magnesium (1.6-2.3) mg/dL Total Bilirubin (0.2-1.3) mg/dL AST (14-36) U/L ALT (0-35) U/L Alkaline Phosphatase (38-126) U/L Troponin I (0.000-0.034) ng/mL NT-Pro-B Natriuret Pep 2710 (<300) pg/mL Serum Total Protein (6.3-8.2) g/dL Albumin (3.5-5.0) g/dL Urine Color Yellow (Yellow) Urine Appearance Clear (Clear) Urine pH 5.5 (4.6-8.0) Ur Specific [place] 1.015 (1.005-1.030) Urine Protein 300 A (Negative) Urine Glucose (UA) 500 A (Negative) mg/dL Urine Ketones Trace A (Negative) Urine Blood Small A (Negative) Urine Nitrite Negative (Negative) Urine Bilirubin Negative (Negative) Urine Urobilinogen 0.2 (0.2) mg/dL Ur Leukocyte Esterase Negative (Negative) U Hyaline Cast (Auto) NONE SEEN (0-2) /LPF Urine Microscopic RBC 3-5 (0-5) /HPF Urine Microscopic WBC 3-5 (0-5) /HPF Ur Epithelial Cells None Seen (None Seen) /HPF Urine Bacteria None Seen (None Seen) /HPF Urine Culture Reflexed NO (NO) Influenza Type A Ag NEGATIVE (NEGATIVE) Influenza Type B Ag NEGATIVE (NEGATIVE) RSV (PCR) NEGATIVE (NEGATIVE) SARS-CoV-2 (PCR) NEGATIVE (NEGATIVE) Slides for Path Review 09/28/23 09/28/23 09/28/23 Range/Units 08:09 08:09 08:09 WBC (4.0-10.5) x10^3/uL RBC (4.1-5.4) x10^6/uL Hgb (12.0-16.0) g/dL Hct (35-47) % MCV (78-100) fL MCH (26-32) pg MCHC (32-36) g/dL RDW (11.5-14.0) % Plt Count (150-450) x10^3/uL MPV (7.5-11.0) fL Gran % (36.0-66.0) % Immature Gran % (Auto) (0.00-0.4) % Nucleat RBC Rel Count (0.00-0.1) % Eos # (Auto) (0-0.5) x10^3/uL Immature Gran # (Auto) (0.00-0.03) x10^3u/L Absolute Lymphs (auto) (1.0-4.6) x10^3/uL Absolute Monos (auto) (0.0-1.3) x10^3/uL Absolute Nucleated RBC (0.00-0.01) x10^3u/L Lymphocytes % (24.0-44.0) % Monocytes % (0.0-12.0) % Eosinophils % (0.00-5.0) % Basophils % (0.0-0.4) % Absolute Granulocytes (1.4-6.9) x10^3/uL Basophils # (0-0.4) x10^3/uL D-Dimer 1.03 H* (0.0-0.50) mg/L Sodium 137 (137-145) mmol/L Potassium 3.4 L (3.5-5.1) mmol/L Chloride 103 (98-107) mmol/L Carbon Dioxide 21 L (22-30) mmol/L Anion Gap 16.4 H (5-15) MEQ/L BUN 27 H (7-17) mg/dL Creatinine 1.76 H (0.52-1.04) mg/dL Estimated GFR 29.3 ML/MIN Glucose 226 H (74-106) mg/dL Lactic Acid (0.4-2.0) Calcium 7.4 L (8.4-10.2) mg/dL Magnesium 1.6 (1.6-2.3) mg/dL Total Bilirubin 0.60 (0.2-1.3) mg/dL AST 26 (14-36) U/L ALT 39 H (0-35) U/L Alkaline Phosphatase 92 (38-126) U/L Troponin I 0.025 (0.000-0.034) ng/mL NT-Pro-B Natriuret Pep (<300) pg/mL Serum Total Protein 7.6 (6.3-8.2) g/dL Albumin 4.1 (3.5-5.0) g/dL Urine Color (Yellow) Urine Appearance (Clear) Urine pH (4.6-8.0) Ur Specific [place] (1.005-1.030) Urine Protein (Negative) Urine Glucose (UA) (Negative) mg/dL Urine Ketones (Negative) Urine Blood (Negative) Urine Nitrite (Negative) Urine Bilirubin (Negative) Urine Urobilinogen (0.2) mg/dL Ur Leukocyte Esterase (Negative) U Hyaline Cast (Auto) (0-2) /LPF Urine Microscopic RBC (0-5) /HPF Urine Microscopic WBC (0-5) /HPF Ur Epithelial Cells (None Seen) /HPF Urine Bacteria (None Seen) /HPF Urine Culture Reflexed (NO) Influenza Type A Ag (NEGATIVE) Influenza Type B Ag (NEGATIVE) RSV (PCR) (NEGATIVE) SARS-CoV-2 (PCR) (NEGATIVE) Slides for Path Review 09/28/23 09/28/23 Range/Units 08:09 07:51 WBC 13.4 H (4.0-10.5) x10^3/uL RBC 3.35 L (4.1-5.4) x10^6/uL Hgb 10.0 L (12.0-16.0) g/dL Hct 30.6 L (35-47) % MCV 91.3 (78-100) fL MCH 29.9 (26-32) pg MCHC 32.7 (32-36) g/dL RDW 12.9 (11.5-14.0) % Plt Count 335 (150-450) x10^3/uL MPV 11.2 H (7.5-11.0) fL Gran % 85.7 H (36.0-66.0) % Immature Gran % (Auto) 0.9 H (0.00-0.4) % Nucleat RBC Rel Count 0.0 (0.00-0.1) % Eos # (Auto) 0.15 (0-0.5) x10^3/uL Immature Gran # (Auto) 0.12 H (0.00-0.03) x10^3u/L Absolute Lymphs (auto) 0.54 L (1.0-4.6) x10^3/uL Absolute Monos (auto) 1.08 (0.0-1.3) x10^3/uL Absolute Nucleated RBC 0.00 (0.00-0.01) x10^3u/L Lymphocytes % 4.0 L (24.0-44.0) % Monocytes % 8.1 (0.0-12.0) % Eosinophils % 1.1 (0.00-5.0) % Basophils % 0.2 (0.0-0.4) % Absolute Granulocytes 11.48 H (1.4-6.9) x10^3/uL Basophils # 0.03 (0-0.4) x10^3/uL D-Dimer (0.0-0.50) mg/L Sodium (137-145) mmol/L Potassium (3.5-5.1) mmol/L Chloride (98-107) mmol/L Carbon Dioxide (22-30) mmol/L Anion Gap (5-15) MEQ/L BUN (7-17) mg/dL Creatinine (0.52-1.04) mg/dL Estimated GFR ML/MIN Glucose (74-106) mg/dL Lactic Acid 0.7 (0.4-2.0) Calcium (8.4-10.2) mg/dL Magnesium (1.6-2.3) mg/dL Total Bilirubin (0.2-1.3) mg/dL AST (14-36) U/L ALT (0-35) U/L Alkaline Phosphatase (38-126) U/L Troponin I (0.000-0.034) ng/mL NT-Pro-B Natriuret Pep (<300) pg/mL Serum Total Protein (6.3-8.2) g/dL Albumin (3.5-5.0) g/dL Urine Color (Yellow) Urine Appearance (Clear) Urine pH (4.6-8.0) Ur Specific [place] (1.005-1.030) Urine Protein (Negative) Urine Glucose (UA) (Negative) mg/dL Urine Ketones (Negative) Urine Blood (Negative) Urine Nitrite (Negative) Urine Bilirubin (Negative) Urine Urobilinogen (0.2) mg/dL Ur Leukocyte Esterase (Negative) U Hyaline Cast (Auto) (0-2) /LPF Urine Microscopic RBC (0-5) /HPF Urine Microscopic WBC (0-5) /HPF Ur Epithelial Cells (None Seen) /HPF Urine Bacteria (None Seen) /HPF Urine Culture Reflexed (NO) Influenza Type A Ag (NEGATIVE) Influenza Type B Ag (NEGATIVE) RSV (PCR) (NEGATIVE) SARS-CoV-2 (PCR) (NEGATIVE) Slides for Path Review YES - Progress Progress: improved, re-examined Air Movement: fair Progress Note: 09/28/23 08:21 This patient's medical issue is 1 of moderate to high complexity. The level of complexity and the workup performed is based on review of the patient's past medical history, review of the patient's medication list, review of the patient's drug allergy list, history present illness and physical findings on examination. The workup in this patient includes consultation with respiratory therapy and treatment with Atrovent nebulizer solution, anesthesia consultation for line placement, CBC, CMP, twelve-lead EKG, BNP, D-dimer, troponin level, lactic acid level,. We will await the results of the D-dimer. If this is elevated we will do a CTA of the chest. If it is normal we will proceed with chest x-ray. We will provide the patient with intramuscular dose of Solu-Medrol 125 mg. 09/28/23 12:24 I interpreted the patient's laboratory data results today. Patient does have an elevated BNP. Her troponin level is normal. She has a mildly elevated white count and she has an elevated D-dimer. Patient is on Eliquis and I did not perform a CT of the chest with contrast. However I did perform a CT of the chest without contrast. That chest CT was interpreted by the radiologist. I have viewed the impression and it states worsening diffuse bilateral consolidating/lung consolidating airspace disease with new small bilateral pleural effusions. In addition to reviewing the most recent inpatient notes at [facility] I reviewed the inpatient notes from [facility] where the patient was transferred to. Patient had atrial fibrillation/flutter with rapid ventricular response. She underwent cardioversion on 09/25/2023 successfully. After reviewing the patient's lab work today as well as the chest CT without contrast results, I feel that the patient would be best served by placing her in observation and diuresing her as well as placing her on antibiotics, having respiratory therapy provide her with Atrovent nebulizer treatments, Solu-Medrol infusions every 8 hours and obtaining discharge planning so she can continue treatment and therapy at an extended care facility either short-term or long- term. We will contact telehospitalist for placement of this patient in the hospital. 09/28/23 12:38 I spoke with hospitalist Dr. Lopes. I reviewed the patient's past medical history, presenting complaint, physical findings, results of laboratory and radiographic studies as well as response of the patient to our interventions. He agrees with the above plan of placing this patient in observation and obtaining discharge planning for eventual transfer to extended care facility. Blood Culture(s) Obtained: Yes Discussed with : Brown Counseled pt/family regarding: lab results, diagnosis Medical Desision Making - Independent Historian Additional History obtained from: Grain Combiner/EMT - Diagnostic Testing Diagnostic test were ordered, analyzed, and reviewed by me: Yes Radiological Interpretation: Reviewed by me, Teleradiologist Report - Risk of complications The pt has a high risk of morbidity or mortality based on: Decision regarding hospitilization or escalation of hosp level of care - Departure Departure Disposition: Observation Clinical Impression: Shortness of breath, CHF (congestive heart failure), COPD exacerbation, Pneumonia Condition: Fair Critical Care Time: No Referrals: JANNA CHAWLA DO [Primary Care Provider] - Follow up/PCP as directed Instructions: Heart Failure, Chronic Obstructive Pulmonary Disease
[2023-09-28] MEDS ORDERED: Atrovent 0.5MG NEBULE IH ONE (07:49)
[2023-09-28] MEDS ORDERED: Sodium Chloride 3 ML UD NEBULES IH ONE (07:49)
[2023-09-28] MEDS: Atrovent 0.5MG NEBULE IH ONE (07:57)
[2023-09-28] MEDS ORDERED: Sterile H2O 10 ml IJ ONE (08:15)
[2023-09-28] MEDS ORDERED: solu-MEDROL ONE (08:15)
[2023-09-28] MEDS: solu-MEDROL 125 MG, Sterile H2O 10 ml 2 ML IM ONE (08:20)
[2023-09-28 08:21] LABS: Absolute Neutrophil Ct (ANC) 11.48 x10^3/uL (1.4-6.9); BASOPHIL % 0.2 % (0.0-0.4); Basophil (Absolute #) 0.03 x10^3/uL (0-0.4); Eosinophil % 1.1 % (0.00-5.0); Eosinophil (Absolute #) 0.15 x10^3/uL (0-0.5); Hematocrit 30.6 % (35-47); IMMATURE GRAN # 0.12 x10^3u/L (0.00-0.03); IMMATURE GRAN % 0.9 % (0.00-0.4); Lymphocyte (Absolute #) 0.54 x10^3/uL (1.0-4.6); Mean Cell Volume 91.3 fL (78-100); Mean Corpuscular Hemoglobin 29.9 pg (26-32); Mean Corpuscular Hgb Concent. 32.7 g/dL (32-36); Mean Platelet Volume 11.2 fL (7.5-11.0); Monocyte (Absolute #) 1.08 x10^3/uL (0.0-1.3); Monocytes % 8.1 % (0.0-12.0); Neutrophil % 85.7 % (36.0-66.0); Platelet Count 335 x10^3/uL (150-450); Red Blood Count 3.35 x10^6/uL (4.1-5.4); Red Cell Distribution Width 12.9 % (11.5-14.0); White Blood Count 13.4 x10^3/uL (4.0-10.5)
[2023-09-28 08:32] LABS: ALBUMIN 4.1 g/dL (3.5-5.0); ANION GAP 16.4 MEQ/L (5-15); BILIRUBIN,TOTAL 0.6 mg/dL (0.2-1.3); Calcium 7.4 mg/dL (8.4-10.2); Creatinine 1 1.76 mg/dL (0.52-1.04); EST GLOMERULAR FILTRATION RATE 29.3 ML/MIN; MAGNESIUM 1.6 mg/dL (1.6-2.3); Potassium 3.4 mmol/L (3.5-5.1); Total Protein 7.6 g/dL (6.3-8.2)
[2023-09-28 08:54] LABS: INFLUENZA A NEGATIVE (NEGATIVE); INFLUENZA B NEGATIVE (NEGATIVE); RESPIRATORY SYNCTIAL VIRUS NEGATIVE (NEGATIVE); SARS-CoV-2 Xpert Express NEGATIVE (NEGATIVE)
[2023-09-28] MEDS ORDERED: Xylocaine-Mpf 2% 5 Ml Vial ONE (08:59)
[2023-09-28] MEDS ORDERED: Lasix 40 MG/4 ML ONE (09:48)
[2023-09-28] MEDS: Lasix 40 MG/4 ML IV ONE (09:49)
[2023-09-28] MEDS ORDERED: Klor Con ONE (10:31)
[2023-09-28] MEDS: Klor Con PO ONE ×2 (10:31→16:14)
[2023-09-28 10:38] LABS: Appearance Clear (Clear); Bacteria None Seen /HPF (None Seen); Bilirubin Negative (Negative); Blood Small (Negative); Epithelial Cells None Seen /HPF (None Seen); Glucose, Urine 500 mg/dL (Negative); Hyaline Casts NONE SEEN /LPF (0-2); Ketones Trace (Negative); Leukocyte Esterase Negative (Negative); Nitrite Negative (Negative); Ph 5.5 (4.6-8.0); Protein,Urine Dip 300 (Negative); Specific Gravity 1.015 (1.005-1.030); Urobilinogen 0.2 mg/dL (0.2)
[2023-09-28 10:39] LABS: ADD URINE CULTURE? NO (NO)
[2023-09-28 10:43] LABS: Slide Review 1 YES
--- NOTE | 2023-09-28 11:36 | XRAY ---
Indication: Short of breath. Multiple contiguous axial images obtained through the chest without contrast. Comparison: September 21, 2023 Mild diffuse respiration artifact. Worsening diffuse bilateral patchy airspace disease now appearing more consolidated, especially right upper lobe. Also new small bilateral effusions resumed reactive. Heart not enlarged again with scattered coronary calcifications and aortic valve replacement. Aorta again moderately acture sclerotic without aneurysm. Stable tiny right hilar calcified nodes. No pathologic mediastinal lymphadenopathy. Bony thorax intact again with osteopenia and mild/moderate degenerative changes throughout the visualized spine. Limited upper abdomen again demonstrates tiny hepatic/splenic calcified granulomas and incompletely visualized bilateral renal cysts. Impression: 1. Worsening diffuse bilateral consolidating/nonconsolidating airspace disease with new small bilateral effusions. 2. Again chronic findings including arteriosclerotic disease, chronic bony findings, bilateral renal cysts, and old granulomatous disease.
[2023-09-28] MEDS ORDERED: ROCEPHIN 1 GM / 100 ML NaCl 1 GM/100 ML IVPB IV ONE (12:43)
[2023-09-28] MEDS: ROCEPHIN 1 GM / 100 ML NaCl 1 GM/100 ML IVPB IV ONE (12:44)
[2023-09-28] MEDS ORDERED: TRANDATE 20 MG/4 ML SYRINGE IV ONE ×3 (12:57→14:16)
[2023-09-28] MEDS: TRANDATE 20 MG/4 ML SYRINGE IV ONE ×3 (13:02→14:17)
[2023-09-28] MEDS ORDERED: Zofran 4 MG/2 ML VIAL IV PRN (14:54)
[2023-09-28] MEDS ORDERED: TYLENOL 325 MG PO PRN ×2 (14:54→16:15)
--- NOTE | 2023-09-28 16:02 | PCM.HP ---
History of Present Illness - Chief Complaint Chief Complaint: pneumonia, chf exacerbation, copd exacerbation, shortness of breath Date: 09/28/23 History of Present Illness: is a 78 year old female with a PMHX of gastroesophageal reflux disease, insulin-dependent diabetes, atrial fibrillation on Eliquis, TIAs, peripheral neuropathy, CHF, COPD, hyperlipidemia, hypertension and hypothyroidism. Patient was recently admitted into the [facility] (09/21/2023) and discharged/transferred to [facility] on 09/23/2023. Patient was discharged from [facility] yesterday, afternoon of 09/27/2023. Patient began having wheezing episodes last evening and it was worse today. She was brought into the emergency department by the dry janitor service for shortness of breath symptoms. Her room air oxygenation, saturation level on arrival to the e mergency department was 90%. Patient has difficult peripheral IV access issues. No steroids were given the patient. Patient also is allergic to albuterol where her ears become red. Patient arrived with expiratory wheezing diffusely bilaterally. This has resolved since admission and lung sounds are now clear and she is on room air at 98%. She continues to have BLLE +3 edma which is chronic. She admits to stopping the new medication for afib rvr that was started at [facility], [place]. She states it caused her hands to be itchy and wants it listed as an allergy on her chart. She has a hx if non-compliance. Will consult cardiology for further suggestions. She has a cardiac event monitor in place on left upper chest. This was placed by [facility] prior to D/C yesterday. She lives at an assisted living facility. Pt states she thinks they did not want her back yet as they felt she needed more OP care. Consider ECF placement. She denies CP, SOB, abd. pain, N/V/D. Will continue to treat for CHF exacerbation with Lasix. Lungs are clear will not continue antibiotics for now. Procal pending. BNP 2710. - Review of Systems Constitutional: No Fever, No Chills Eyes: No Symptoms Ears, Nose, & Throat: No Symptoms Respiratory: No Cough, No Short Of Breath Cardiac: Edema, No Chest Pain, No Syncope Abdominal/Gastrointestinal: No Abdominal Pain, No Nausea, No Vomiting, No Diarrhea Genitourinary Symptoms: No Dysuria Musculoskeletal: No Back Pain, No Neck Pain Skin: No Rash Neurological: No Dizziness, No Focal Weakness, No Sensory Changes Psychological: No Symptoms Endocrine: No Symptoms Hematologic/Lymphatic: No Symptoms Immunological/Allergic: No Symptoms Medications & Allergies Home Medications: Home Medication List Montelukast Sodium 10 mg [Singulair 10 MG] 10 mg PO HS 01/20/18 [History Confirmed 09/28/23] Buspirone HCl 5 mg [Buspar 5 mg] 5 mg PO BID 12/02/20 [History Confirmed 09/28/23] Cetirizine HCl [Zyrtec] 10 mg PO DAILY 12/02/20 [History Confirmed 09/28/23] Famotidine 20 mg [Pepcid 20 MG] 20 mg PO BID 12/02/20 [History Confirmed 09/28/23] Insulin Glargine [Lantus Insulin] 28 unit SQ QAM 07/06/22 [History Confirmed 09/28/23] Pregabalin 50 mg [Lyrica 50MG] 50 mg PO HS 07/06/22 [History Confirmed 09/28/23] Apixaban [Eliquis 5 mg Tablet] 5 mg PO BID 07/16/22 [History Confirmed 09/28/23] Cyanocobalamin (Vitamin B-12) [Vitamin B-12] 1,000 mcg PO DAILY 07/16/22 [History Confirmed 09/28/23] Acetaminophen [Tylenol] 650 mg PO Q6HPRN PRN 08/31/22 [History Confirmed 09/28/23] Aspirin EC 81 mg [Ecotrin 81 mg] 81 mg PO DAILY 08/31/22 [History Confirmed 09/28/23] Calcium Carbonate 750 mg [Tums EX 750 MG] 2 tab PO BID 08/31/22 [History Confirmed 09/28/23] Ferrous Sulfate 325 mg [Feosol 325 mg] 325 mg PO BID 08/31/22 [History Confirmed 09/28/23] Folic Acid 1 mg [Folate 1 mg] 1 mg PO DAILY 08/31/22 [History Confirmed 09/28/23] Furosemide 40 mg [Lasix 40 MG] 40 mg PO DAILY 11/02/22 [History Confirmed 09/28/23] Budesonide/Formoterol Fumarate [Budesonide-Formoterol 80-4.5] 2 puffs IH BID 09/21/23 [History Confirmed 09/28/23] Insulin Lispro [Humalog] 12 unit SQ BID 09/21/23 [History Confirmed 09/28/23] calcitrioL [Calcitriol] 0.25 mcg PO BID 09/21/23 [History Confirmed 09/28/23] Dronedarone HCl [Multaq] 1 tab PO BID 09/28/23 [History Confirmed 09/28/23] Insulin Lispro [Humalog] 18 unit SQ DAILY 09/28/23 [History Confirmed 09/28/23] L. Acidophilus/L.bulgaricus [Floranex Tablet] 1 tab PO DAILY 09/28/23 [History Confirmed 09/28/23] Levothyroxine Sodium 100 Mcg [Synthroid 100 Mcg] 200 mcg PO DAILY 09/28/23 [History Confirmed 09/28/23] dilTIAZem HCL [Diltiazem 24Hr ER] 1 tab PO DAILY 09/28/23 [History Confirmed 09/28/23] Allergies/Adverse Reactions: Allergies Allergy/AdvReac Type Severity Reaction Status Date / Time albuterol Allergy Intermediate Swelling Verified 09/28/23 15:12 of Tongue and Lips propranolol [From Inderal LA] Allergy Intermediate Verified 09/28/23 15:12 levofloxacin [From Levaquin] Allergy Unknown Verified 09/28/23 15:12 clonazepam [From Klonopin] Allergy Tightness Verified 09/28/23 15:12 of Throat metoclopramide [From Reglan] Allergy Verified 09/28/23 15:12 propranolol HCl Allergy Swelling Verified 09/28/23 15:12 [From Inderal LA] of Tongue and Lips Sulfa (Sulfonamide Allergy Swelling Verified 09/28/23 15:12 Antibiotics) of Tongue and Lips terfenadine Allergy Verified 09/28/23 15:12 venom-honey bee Allergy Hives Verified 09/28/23 15:12 [bee venom (honey bee)] zanamivir Allergy Swelling Verified 09/28/23 15:12 [From Relenza Diskhaler] of Tongue and Lips cilostazol [From Pletal] AdvReac Severe Swelling Verified 09/28/23 15:12 of Tongue and Lips ticagrelor [From Brilinta] AdvReac Severe Swelling Verified 09/28/23 15:12 of Tongue and Lips - Past Medical History Past Medical History: Yes Neurological History: TIA, Peripheral Neuropathy ENT History: Other Cardiac History: Arrhythmia, Congestive Heart Failure, High Cholesterol, Hypertension, Myocardial Infarction (MA) Respiratory History: CHF, COPD Endocrine Medical History: Diabetes Type II, Hypothyroidism Musculoskelatal History: No Pertinent History GI Medical History: Other, GERD History: No Pertinent History Pyscho-Social History: Anxiety Reproductive Disorders: Breast Cancer Comment: right eye retinal scratch November 2020, NEUROPATHY - Past Surgical History Past Surgical History: Yes Neuro Surgical History: No Pertinent History Cardiac History: Other Respiratory Surgery: No Pertinent History GI Surgical History: Hernia Repair Genitourinary Surgical Hx: No Pertinent History Musculskeletal Surgical Hx: No Pertinent History Female Surgical History: Mastectomy, Lumpectomy Other Surgical History: left mastectomy 1993, right lumpectomy, right thyroid removed, left thyroid removed with goiter, pubic mass, left knee scope, valve replacement - Social History Smoking Status: Never smoker Exposure to second hand smoke: No Alcohol: None Drug Use: none - Social Determinants of Health Will the patient participate in the screening: Yes Do you worry about a steady place to live?: No Do you have any problems with any of the following?: No known problems In the past 12 months,have you had to go without utilities?: No Have you or anyone in your house had to go without enough: No Transportation Issues: No Has anyone in your support network made you feel unsafe?: No Does the patient want assistance with any of the above?: No - Physical Exam Vital Signs: Vital Signs - 24 hr Temp Pulse Resp BP BP Pulse Ox 09/28/23 15:16 97.8 F 91 H 18 161/91 98 09/28/23 14:35 90 31 H 168/95 93 L 09/28/23 14:30 92 H 26 H 177/116 94 L 09/28/23 14:20 91 H 28 H 179/106 91 L 09/28/23 14:10 88 26 H 171/115 92 L 09/28/23 14:00 91 H 23 187/108 93 L 09/28/23 13:50 90 23 180/122 94 L 09/28/23 13:40 89 26 H 170/128 92 L 09/28/23 13:30 91 H 26 H 181/113 92 L 09/28/23 13:20 91 H 26 H 178/131 93 L 09/28/23 13:10 90 27 H 191/131 92 L 09/28/23 13:00 91 H 25 H 193/121 92 L 09/28/23 12:45 107 H 20 193/126 94 L 09/28/23 12:30 104 H 17 193/121 93 L 09/28/23 12:15 95 H 22 182/115 92 L 09/28/23 12:00 101 H 25 H 201/132 90 L 09/28/23 11:45 100 H 25 H 191/108 91 L 09/28/23 11:30 103 H 20 205/117 92 L 09/28/23 11:29 102 H 30 H 93 L 09/28/23 11:22 95 09/28/23 11:00 193/112 09/28/23 10:45 101 H 26 H 185/114 95 09/28/23 10:30 98 H 29 H 188/116 95 09/28/23 10:20 95 H 25 H 185/144 95 09/28/23 10:10 97 H 28 H 202/109 95 09/28/23 10:00 102 H 28 H 205/120 95 09/28/23 09:50 104 H 29 H 192/114 95 09/28/23 09:40 95 H 23 192/116 95 09/28/23 09:30 91 H 23 179/109 95 09/28/23 09:20 91 H 22 189/114 95 09/28/23 09:10 94 H 23 194/121 95 09/28/23 09:02 98 H 28 H 196/110 95 09/28/23 09:01 98 H 24 95 09/28/23 09:00 98 H 29 H 96 09/28/23 08:50 96 H 28 H 97 09/28/23 08:41 100 H 25 H 96 09/28/23 08:30 100 H 29 H 161/91 96 09/28/23 08:22 98 H 21 162/89 95 09/28/23 08:12 103 H 36 H 131/92 92 L 09/28/23 08:00 102 H 27 H 95 09/28/23 07:51 95 09/28/23 07:41 99.1 F 104 H 30 H 185/95 95 09/28/23 07:37 185/95 96 General Appearance: no apparent distress, alert Neurologic Exam: alert, oriented x 3, cooperative, normal mood/affect, nml cerebellar function, nml station & gait, sensation nml, No motor deficits Eye Exam: PERRL/EOMI, eyes nml inspection Ears, Nose, Throat Exam: normal ENT inspection, TMs normal, pharynx normal, moist mucous membranes Neck Exam: normal inspection, non-tender, supple, full range of motion Respiratory Exam: normal breath sounds, lungs clear, No respiratory distress Cardiovascular Exam: regular rate/rhythm, normal heart sounds, normal peripheral pulses, edema (+ 3 pitting edma) Gastrointestinal/Abdomen Exam: soft, normal bowel sounds, No tenderness, No mass Back Exam: normal inspection, normal range of motion, No CVA tenderness, No vertebral tenderness Extremity Exam: normal inspection, normal range of motion, pelvis stable Skin Exam: normal color, warm, dry, No rash Lymphatic Exam: No adenopathy Results - Labs Lab/Micro Results: Lab Results-Last 24 Hours 09/28/23 09/28/23 09/28/23 Range/Units 07:51 08:09 08:09 WBC 13.4 H (4.0-10.5) x10^3/uL RBC 3.35 L (4.1-5.4) x10^6/uL Hgb 10.0 L (12.0-16.0) g/dL Hct 30.6 L (35-47) % MCV 91.3 (78-100) fL MCH 29.9 (26-32) pg MCHC 32.7 (32-36) g/dL RDW 12.9 (11.5-14.0) % Plt Count 335 (150-450) x10^3/uL MPV 11.2 H (7.5-11.0) fL Gran % 85.7 H (36.0-66.0) % Immature Gran % (Auto) 0.9 H (0.00-0.4) % Nucleat RBC Rel Count 0.0 (0.00-0.1) % Eos # (Auto) 0.15 (0-0.5) x10^3/uL Immature Gran # (Auto) 0.12 H (0.00-0.03) x10^3u/L Absolute Lymphs (auto) 0.54 L (1.0-4.6) x10^3/uL Absolute Monos (auto) 1.08 (0.0-1.3) x10^3/uL Absolute Nucleated RBC 0.00 (0.00-0.01) x10^3u/L Lymphocytes % 4.0 L (24.0-44.0) % Monocytes % 8.1 (0.0-12.0) % Eosinophils % 1.1 (0.00-5.0) % Basophils % 0.2 (0.0-0.4) % Absolute Granulocytes 11.48 H (1.4-6.9) x10^3/uL Basophils # 0.03 (0-0.4) x10^3/uL D-Dimer (0.0-0.50) mg/L Sodium 137 (137-145) mmol/L Potassium 3.4 L (3.5-5.1) mmol/L Chloride 103 (98-107) mmol/L Carbon Dioxide 21 L (22-30) mmol/L Anion Gap 16.4 H (5-15) MEQ/L BUN 27 H (7-17) mg/dL Creatinine 1.76 H (0.52-1.04) mg/dL Estimated GFR 29.3 ML/MIN Glucose 226 H (74-106) mg/dL POC Glucometer (74 to 106) mg/dL Lactic Acid 0.7 (0.4-2.0) Calcium 7.4 L (8.4-10.2) mg/dL Magnesium 1.6 (1.6-2.3) mg/dL Total Bilirubin 0.60 (0.2-1.3) mg/dL AST 26 (14-36) U/L ALT 39 H (0-35) U/L Alkaline Phosphatase 92 (38-126) U/L Troponin I (0.000-0.034) ng/mL NT-Pro-B Natriuret Pep (<300) pg/mL Serum Total Protein 7.6 (6.3-8.2) g/dL Albumin 4.1 (3.5-5.0) g/dL Urine Color (Yellow) Urine Appearance (Clear) Urine pH (4.6-8.0) Ur Specific Peck (1.005-1.030) Urine Protein (Negative) Urine Glucose (UA) (Negative) mg/dL Urine Ketones (Negative) Urine Blood (Negative) Urine Nitrite (Negative) Urine Bilirubin (Negative) Urine Urobilinogen (0.2) mg/dL Ur Leukocyte Esterase (Negative) U Hyaline Cast (Auto) (0-2) /LPF Urine Microscopic RBC (0-5) /HPF Urine Microscopic WBC (0-5) /HPF Ur Epithelial Cells (None Seen) /HPF Urine Bacteria (None Seen) /HPF Urine Culture Reflexed (NO) Influenza Type A Ag (NEGATIVE) Influenza Type B Ag (NEGATIVE) RSV (PCR) (NEGATIVE) SARS-CoV-2 (PCR) (NEGATIVE) Slides for Path Review YES 09/28/23 09/28/23 09/28/23 Range/Units 08:09 08:09 08:09 WBC (4.0-10.5) x10^3/uL RBC (4.1-5.4) x10^6/uL Hgb (12.0-16.0) g/dL Hct (35-47) % MCV (78-100) fL MCH (26-32) pg MCHC (32-36) g/dL RDW (11.5-14.0) % Plt Count (150-450) x10^3/uL MPV (7.5-11.0) fL Gran % (36.0-66.0) % Immature Gran % (Auto) (0.00-0.4) % Nucleat RBC Rel Count (0.00-0.1) % Eos # (Auto) (0-0.5) x10^3/uL Immature Gran # (Auto) (0.00-0.03) x10^3u/L Absolute Lymphs (auto) (1.0-4.6) x10^3/uL Absolute Monos (auto) (0.0-1.3) x10^3/uL Absolute Nucleated RBC (0.00-0.01) x10^3u/L Lymphocytes % (24.0-44.0) % Monocytes % (0.0-12.0) % Eosinophils % (0.00-5.0) % Basophils % (0.0-0.4) % Absolute Granulocytes (1.4-6.9) x10^3/uL Basophils # (0-0.4) x10^3/uL D-Dimer 1.03 H* (0.0-0.50) mg/L Sodium (137-145) mmol/L Potassium (3.5-5.1) mmol/L Chloride (98-107) mmol/L Carbon Dioxide (22-30) mmol/L Anion Gap (5-15) MEQ/L BUN (7-17) mg/dL Creatinine (0.52-1.04) mg/dL Estimated GFR ML/MIN Glucose (74-106) mg/dL POC Glucometer (74 to 106) mg/dL Lactic Acid (0.4-2.0) Calcium (8.4-10.2) mg/dL Magnesium (1.6-2.3) mg/dL Total Bilirubin (0.2-1.3) mg/dL AST (14-36) U/L ALT (0-35) U/L Alkaline Phosphatase (38-126) U/L Troponin I 0.025 (0.000-0.034) ng/mL NT-Pro-B Natriuret Pep 2710 (<300) pg/mL Serum Total Protein (6.3-8.2) g/dL Albumin (3.5-5.0) g/dL Urine Color (Yellow) Urine Appearance (Clear) Urine pH (4.6-8.0) Ur Specific Peck (1.005-1.030) Urine Protein (Negative) Urine Glucose (UA) (Negative) mg/dL Urine Ketones (Negative) Urine Blood (Negative) Urine Nitrite (Negative) Urine Bilirubin (Negative) Urine Urobilinogen (0.2) mg/dL Ur Leukocyte Esterase (Negative) U Hyaline Cast (Auto) (0-2) /LPF Urine Microscopic RBC (0-5) /HPF Urine Microscopic WBC (0-5) /HPF Ur Epithelial Cells (None Seen) /HPF Urine Bacteria (None Seen) /HPF Urine Culture Reflexed (NO) Influenza Type A Ag (NEGATIVE) Influenza Type B Ag (NEGATIVE) RSV (PCR) (NEGATIVE) SARS-CoV-2 (PCR) (NEGATIVE) Slides for Path Review 09/28/23 09/28/23 09/28/23 Range/Units 08:15 10:06 13:00 WBC (4.0-10.5) x10^3/uL RBC (4.1-5.4) x10^6/uL Hgb (12.0-16.0) g/dL Hct (35-47) % MCV (78-100) fL MCH (26-32) pg MCHC (32-36) g/dL RDW (11.5-14.0) % Plt Count (150-450) x10^3/uL MPV (7.5-11.0) fL Gran % (36.0-66.0) % Immature Gran % (Auto) (0.00-0.4) % Nucleat RBC Rel Count (0.00-0.1) % Eos # (Auto) (0-0.5) x10^3/uL Immature Gran # (Auto) (0.00-0.03) x10^3u/L Absolute Lymphs (auto) (1.0-4.6) x10^3/uL Absolute Monos (auto) (0.0-1.3) x10^3/uL Absolute Nucleated RBC (0.00-0.01) x10^3u/L Lymphocytes % (24.0-44.0) % Monocytes % (0.0-12.0) % Eosinophils % (0.00-5.0) % Basophils % (0.0-0.4) % Absolute Granulocytes (1.4-6.9) x10^3/uL Basophils # (0-0.4) x10^3/uL D-Dimer (0.0-0.50) mg/L Sodium (137-145) mmol/L Potassium (3.5-5.1) mmol/L Chloride (98-107) mmol/L Carbon Dioxide (22-30) mmol/L Anion Gap (5-15) MEQ/L BUN (7-17) mg/dL Creatinine (0.52-1.04) mg/dL Estimated GFR ML/MIN Glucose (74-106) mg/dL POC Glucometer (74 to 106) mg/dL Lactic Acid (0.4-2.0) Calcium (8.4-10.2) mg/dL Magnesium (1.6-2.3) mg/dL Total Bilirubin (0.2-1.3) mg/dL AST (14-36) U/L ALT (0-35) U/L Alkaline Phosphatase (38-126) U/L Troponin I 0.033 (0.000-0.034) ng/mL NT-Pro-B Natriuret Pep (<300) pg/mL Serum Total Protein (6.3-8.2) g/dL Albumin (3.5-5.0) g/dL Urine Color Yellow (Yellow) Urine Appearance Clear (Clear) Urine pH 5.5 (4.6-8.0) Ur Specific Peck 1.015 (1.005-1.030) Urine Protein 300 A (Negative) Urine Glucose (UA) 500 A (Negative) mg/dL Urine Ketones Trace A (Negative) Urine Blood Small A (Negative) Urine Nitrite Negative (Negative) Urine Bilirubin Negative (Negative) Urine Urobilinogen 0.2 (0.2) mg/dL Ur Leukocyte Esterase Negative (Negative) U Hyaline Cast (Auto) NONE SEEN (0-2) /LPF Urine Microscopic RBC 3-5 (0-5) /HPF Urine Microscopic WBC 3-5 (0-5) /HPF Ur Epithelial Cells None Seen (None Seen) /HPF Urine Bacteria None Seen (None Seen) /HPF Urine Culture Reflexed NO (NO) Influenza Type A Ag NEGATIVE (NEGATIVE) Influenza Type B Ag NEGATIVE (NEGATIVE) RSV (PCR) NEGATIVE (NEGATIVE) SARS-CoV-2 (PCR) NEGATIVE (NEGATIVE) Slides for Path Review 09/28/23 Range/Units 14:23 WBC (4.0-10.5) x10^3/uL RBC (4.1-5.4) x10^6/uL Hgb (12.0-16.0) g/dL Hct (35-47) % MCV (78-100) fL MCH (26-32) pg MCHC (32-36) g/dL RDW (11.5-14.0) % Plt Count (150-450) x10^3/uL MPV (7.5-11.0) fL Gran % (36.0-66.0) % Immature Gran % (Auto) (0.00-0.4) % Nucleat RBC Rel Count (0.00-0.1) % Eos # (Auto) (0-0.5) x10^3/uL Immature Gran # (Auto) (0.00-0.03) x10^3u/L Absolute Lymphs (auto) (1.0-4.6) x10^3/uL Absolute Monos (auto) (0.0-1.3) x10^3/uL Absolute Nucleated RBC (0.00-0.01) x10^3u/L Lymphocytes % (24.0-44.0) % Monocytes % (0.0-12.0) % Eosinophils % (0.00-5.0) % Basophils % (0.0-0.4) % Absolute Granulocytes (1.4-6.9) x10^3/uL Basophils # (0-0.4) x10^3/uL D-Dimer (0.0-0.50) mg/L Sodium (137-145) mmol/L Potassium (3.5-5.1) mmol/L Chloride (98-107) mmol/L Carbon Dioxide (22-30) mmol/L Anion Gap (5-15) MEQ/L BUN (7-17) mg/dL Creatinine (0.52-1.04) mg/dL Estimated GFR ML/MIN Glucose (74-106) mg/dL POC Glucometer 217 H (74 to 106) mg/dL Lactic Acid (0.4-2.0) Calcium (8.4-10.2) mg/dL Magnesium (1.6-2.3) mg/dL Total Bilirubin (0.2-1.3) mg/dL AST (14-36) U/L ALT (0-35) U/L Alkaline Phosphatase (38-126) U/L Troponin I (0.000-0.034) ng/mL NT-Pro-B Natriuret Pep (<300) pg/mL Serum Total Protein (6.3-8.2) g/dL Albumin (3.5-5.0) g/dL Urine Color (Yellow) Urine Appearance (Clear) Urine pH (4.6-8.0) Ur Specific Peck (1.005-1.030) Urine Protein (Negative) Urine Glucose (UA) (Negative) mg/dL Urine Ketones (Negative) Urine Blood (Negative) Urine Nitrite (Negative) Urine Bilirubin (Negative) Urine Urobilinogen (0.2) mg/dL Ur Leukocyte Esterase (Negative) U Hyaline Cast (Auto) (0-2) /LPF Urine Microscopic RBC (0-5) /HPF Urine Microscopic WBC (0-5) /HPF Ur Epithelial Cells (None Seen) /HPF Urine Bacteria (None Seen) /HPF Urine Culture Reflexed (NO) Influenza Type A Ag (NEGATIVE) Influenza Type B Ag (NEGATIVE) RSV (PCR) (NEGATIVE) SARS-CoV-2 (PCR) (NEGATIVE) Slides for Path Review Accuchecks Date 09/28/23 Time 14:24 - Radiology Impressions Radiology Exams & Impressions: Radiology Procedures Category Date Time Status CHEST WITHOUT CONTRAST [CT] Stat Exams 09/28/23 09:22 Completed - Other Procedures and Tests Respiratory Therapy 09/28/23 14:54 EKG REPEAT IN AM Oxygen Nasal Cannula 2 lpm Respiratory Therapy Consult ONCE Assessment/Plan (1) CHF (congestive heart failure) Current Visit: Yes Status: Acute Assessment & Plan: - CT w/o contrast 09/28 Impression: 1. Worsening diffuse bilateral consolidating/nonconsolidating airspace disease with new small bilateral effusions. 2. Again chronic findings including arteriosclerotic disease, chronic bony findings, bilateral renal cysts, and old granulomatous disease. - BNP 2710 - tele - RA 98% - MARY ELLEN hose for + 3 pitting edma that is chronic - Pt stopped Multaq d/t hand itching- cardiology consult for recommendations - Lasix gave in ER- continue 40 BID - Records pending from [facility] - Echo 07-07-22 CLINICAL INFORMATION: Atrial fibrillation with rapid ventricular response and history of aortic valve replacement. The M-mode 2D, and Doppler echocardiogram including color flow Doppler shows the left ventricle is normal in size. There is no thrombus present. There is mild concentric left ventricular hypertrophy. The left ventricular systolic function is mildly decreased and the ejection fraction is calculated to be 47%. The right ventricle is normal. The left atrium is moderately dilated. The interatrial septum is intact. The right atrium is normal. The aortic valve is not well visualized. There is mitral valve calcification associated with mild mitral regurgitation. There is mild tricuspid regurgitation. The right ventricular systolic pressure is calculated to be 51 mm of Mercury. The pulmonic valve is not well visualized. The aortic root is not well visualized. There is no pericardial effusion present. IMPRESSION: 1) MILD CONCENTRIC LEFT VENTRICULAR HYPERTROPHY. 2) MILD DECREASE IN LEFT VENTRICULAR SYSTOLIC FUNCTION. 3) MODERATE LEFT ATRIAL DILATATION. 4) MILD MITRAL REGURGITATION. 5) MILD TRICUSPID REGURGITATION. 6) SEVERE PULMONARY HYPERTENSION. Code(s): I50.9 - HEART FAILURE, UNSPECIFIED (2) Dyspnea Current Visit: Yes Status: Acute Assessment & Plan: - resolved since admission - Room air 98% - 2:2 CHF - Procal Code(s): R06.00 - DYSPNEA, UNSPECIFIED (3) Non-compliance Current Visit: Yes Status: Acute Assessment & Plan: - Stopped Mutaq d/t side effects - cards recs pending Code(s): Z91.199 - PT NONCOMPL WITH OTHER MED TRTMT AND REGIMEN D/T UNSP REASON (4) CRF (chronic renal failure) Current Visit: Yes Status: Acute Assessment & Plan: - at baseline renal function (5) Hypokalemia Current Visit: Yes Status: Acute Assessment & Plan: - K+ 3.4- replaced in ER - recheck and replace PRN Code(s): E87.6 - HYPOKALEMIA (6) Hypothyroidism Current Visit: No Status: Chronic Assessment & Plan: - continue synthroid Code(s): E03.9 - HYPOTHYROIDISM, UNSPECIFIED (7) Diabetes mellitus Current Visit: No Status: Chronic Qualifiers: Diabetes mellitus type: type 2 Diabetes mellitus skilled nursing insulin use: with skilled nursing use Diabetes mellitus complication status: with kidney complications Diabetes mellitus complication detail: with chronic kidney disease Chronic kidney disease stage: stage 2 (mild) Qualified Code(s): E11.22 - Type 2 diabetes mellitus with diabetic chronic kidney disease; N18.2 - Chronic kidney disease, stage 2 (mild); Z79.4 - intermediate (current) use of insulin Assessment & Plan: - Continue lantus and humalog scheduled insulin - Const carb diet - accuchecks ac/hs VTE: Eliquis PPI: Famotidine D/c plan: tomorrow Next of Kin: Letty Dumont [phone]- child Code status: full Code(s): E11.9 - TYPE 2 DIABETES MELLITUS WITHOUT COMPLICATIONS
[2023-09-28 16:39] LABS: MAGNESIUM 1.4 mg/dL (1.6-2.3); Potassium 3.7 mmol/L (3.5-5.1)
[2023-09-28] MEDS: HUMALOG SQ SCH (17:19)
[2023-09-28] MEDS: Lasix 40 MG/4 ML IV SCH (17:20)
[2023-09-28 17:55] LABS: IFOB TEST RESULTS POSITIVE (NEGATIVE)
[2023-09-28] MEDS ORDERED: MAG-OX 400 ONE (18:29)
[2023-09-28] MEDS: MAG-OX 400 PO ONE (18:33)
[2023-09-28] MEDS: Advair Hfa 115/21 Common canister IH SCH (19:13)
[2023-09-28] MEDS: Lyrica 50MG PO SCH (21:11)
[2023-09-28] MEDS: HUMULIN R SQ PRN (21:11)
[2023-09-28] MEDS: ELIQUIS 2.5 MG TABLET PO SCH (21:12)
[2023-09-28] MEDS: Singulair 10 MG PO SCH (21:12)
[2023-09-28] MEDS: Tums EX 750 MG PO SCH (21:12)
[2023-09-28] MEDS: Pepcid 20 MG PO SCH (21:12)
[2023-09-28] MEDS: BUSPAR 5 MG PO SCH (21:12)
[2023-09-28] MEDS: FEOSOL 325 MG PO SCH (21:12)
[2023-09-28 21:58] LABS: Hematocrit 36.9 % (35-47)
[2023-09-28] MEDS ORDERED: NON-FORMULARY ITEM (Apixaban*** [Eliquis 5 Mg Tablet***] 5 MG Tablet) PO SCH (22:00)
[2023-09-28 22:08] LABS: Hemoglobin 12.3 g/dL (12.0-16.0)
[2023-09-28] MEDS: PROTONIX 40 MG IV IV SCH (22:13)
[2023-09-28] MEDS: Sodium Chloride 0.9% 1000 ML 1,000 ML IV SCH (22:53)
[2023-09-29] MEDS: PIPERACILLIN/TAZOBACTAM 3.375 GM in Sodium Chloride 100ML MINI-BAG PLUS 100 ML IV SCH (01:01)
--- NOTE | 2023-09-29 03:46 | XRAY ---
CLINICAL HISTORY: GI bleed TECHNIQUE: Contiguous axial images were obtained from the level of the diaphragm to the pubic symphysis without intravenous or oral contrast. Coronal and sagittal reconstructions were likewise performed and indicated to increase the sensitivity for detecting clinically relevant pathology. CT scan was performed according to ALARA (as low as reasonable achievable). COMPARISON: 09/21/2023 FINDINGS: The visualized lung bases show mild bilateral pleural effusions with adjacent atelectasis. Evaluation of the abdominal and pelvic visceral organs is limited without intravenous contrast. Multiple tiny hepatic and splenic calcific foci, likely post granulomatous infection sequela. Rest of the unenhanced liver, spleen, pancreas, and adrenal glands are grossly unremarkable. The gallbladder is present. Bilateral renal hypodense cortical cysts - stable. The kidneys are normal in size and attenuation without obvious calcification. There is no hydronephrosis or perinephric stranding. The ureters are normal in caliber. No adenopathy or fluid collections are seen. No evidence of focal or diffuse bowel wall thickening or evidence of bowel obstruction is seen. The appendix is visualized in the right lower quadrant and appears within normal limits. Colonic divertciula seen along the sigmoid and descending colon with no acute inflammation. The aorta is normal in caliber with calcific changes. Stable haziness of the mesenteric root with prominent mesenteric lymph nodes. Small fat containing umbilical and epigastric hernias. The urinary bladder is normal in contour. Interval removal of guevara's catheter. Pelvic viscera are grossly unremarkable. No aggressive appearing osseous lesions are identified. IMPRESSION: 1.Multiple tiny hepatic and splenic calcific foci, likely post granulomatous infection sequela. 2. Mesenteric panniculitis - stable. 3. Colonic divertciula seen along the sigmoid and descending colon with no acute inflammation. 4. Mild bilateral pleural effusions. New finding compared to prior. Rest of the above findings are stable. Electronically Signed by: Dr. Mario Salinas MD. (09/29/2023 03:41:00 EST)
[2023-09-29 05:07] LABS: Absolute Neutrophil Ct (ANC) 8.83 x10^3/uL (1.4-6.9); BASOPHIL % 0.2 % (0.0-0.4); Basophil (Absolute #) 0.02 x10^3/uL (0-0.4); Eosinophil (Absolute #) 0 x10^3/uL (0-0.5); Hematocrit 27.7 % (35-47); IMMATURE GRAN # 0.09 x10^3u/L (0.00-0.03); IMMATURE GRAN % 0.9 % (0.00-0.4); Lymphocyte (Absolute #) 0.46 x10^3/uL (1.0-4.6); Lymphocytes % 4.6 % (24.0-44.0); Mean Cell Volume 93.3 fL (78-100); Mean Corpuscular Hemoglobin 30.3 pg (26-32); Mean Corpuscular Hgb Concent. 32.5 g/dL (32-36); Mean Platelet Volume 11.5 fL (7.5-11.0); Monocytes % 5.1 % (0.0-12.0); Neutrophil % 89.2 % (36.0-66.0); Platelet Count 319 x10^3/uL (150-450); Red Blood Count 2.97 x10^6/uL (4.1-5.4); Red Cell Distribution Width 13.3 % (11.5-14.0); White Blood Count 9.9 x10^3/uL (4.0-10.5)
[2023-09-29 05:51] LABS: ALBUMIN 3.6 g/dL (3.5-5.0); ANION GAP 14.5 MEQ/L (5-15); BILIRUBIN,TOTAL 0.5 mg/dL (0.2-1.3); Calcium 6.6 mg/dL (8.4-10.2); Creatinine 1 1.94 mg/dL (0.52-1.04); Potassium 3.5 mmol/L (3.5-5.1); Total Protein 6.7 g/dL (6.3-8.2)
[2023-09-29 05:54] LABS: Slide Review 1 YES
[2023-09-29] MEDS ORDERED: NON-FORMULARY ITEM (Insulin Lispro 1 UNIT Ml) SQ SCH ×2 (07:30→10:00)
--- NOTE | 2023-09-29 09:42 | PCM.NOTE ---
Date and Time: 09/29/23 0937 Subjective Assessment: 09/28/23 is a 78 year old female with a PMHX of gastroesophageal reflux disease, insulin-dependent diabetes, atrial fibrillation on Eliquis, TIAs, peripheral neuropathy, CHF, COPD, hyperlipidemia, hypertension and hypothyroidism. Patient was recently admitted into the [facility] (09/21/2023) and discharged/transferred to [facility] on 09/23/2023. Patient was discharged from [facility] yesterday, afternoon of 09/27/2023. Patient began having wheezing episodes last evening and it was worse today. She was brought into the emergency department by the fry cook service for shortness of breath symptoms. Her room air oxygenation, saturation level on arrival to the em ergency department was 90%. Patient has a hx of difficult peripheral IV access issues. Midline placed in ER. No steroids were given the patient. Patient also is allergic to albuterol where her ears become red. Patient arrived with expiratory wheezing diffusely bilaterally. This has resolved since admission and lung sounds are now clear and she is on room air at 98%. She continues to have BLLE +3 edma which is chronic. She admits to stopping the new medication for afib rvr that was started at [facility], [place]. She states it caused her hands to be itchy and wants it listed as an allergy on her chart. She has a hx of non- compliance. Will consult cardiology for further suggestions. She has a cardiac event monitor in place on left upper chest. This was placed by [facility] prior to D/C yesterday. She lives at an assisted living facility. Pt states she thinks they did not want her back yet as they felt she needed more OP care. Consider ECF placement. She denies CP, SOB, abd. pain, N/V/D. Will continue to treat for CHF exacerbation with Lasix. Lungs are clear will not continue antibiotics for now. Procal pending. BNP 2710. Pt states she does have PRN oxygen at home but has not been using it. She only uses it as needed. 09/29/23 Pt resting in bed. She she developed bloody stools yesterday evening and general surgery consulted. Hgb stable at 9 this morning. She is NPO. CT abd pelvis did show diverticulia, no diverticulitis. SOB has improved she is RA 97%. WBC normal. CT does show mild BL pleural effusions. Will order VQ scan for elevated d-dimer. US of kidneys ordered for further evaluation of proteinuria and hematuria. Will need OP f/u nephrology and urology. She denies any further concerns t this time. - Review of Systems Constitutional: No Fever, No Chills Eyes: No Symptoms Ears, Nose, & Throat: No Symptoms Respiratory: No Cough, No Short Of Breath Cardiac: No Chest Pain, No Edema, No Syncope Abdominal/Gastrointestinal: Hematochezia, No Abdominal Pain, No Nausea, No Vomiting, No Diarrhea Genitourinary Symptoms: Hematuria, No Dysuria Musculoskeletal: No Back Pain, No Neck Pain Skin: No Rash Neurological: No Dizziness, No Focal Weakness, No Sensory Changes Psychological: No Symptoms Endocrine: No Symptoms Hematologic/Lymphatic: No Symptoms Immunological/Allergic: No Symptoms Objective Exam General Appearance: no apparent distress, alert Neurologic Exam: alert, oriented x 3, cooperative, normal mood/affect, nml cerebellar function, sensation nml, No motor deficits Skin Exam: normal color, warm, dry Wound Assessment: Skin/Wound Assessment Wound/Incision Assessment Start: 09/28/23 23:28 Text: Status: Active Freq: Q6H Protocol: Document 09/29/23 02:00 MP (Rec: 09/29/23 02:51 MP [id number]) Wound/Incision Assessment Right Upper Chest Wound Assessment Shift Assessment Wound Stage Non Pressure Wound Dressing Status Changed Drainage Amount Moderate Drainage Odor None/Absent General Appearance Bleeding Primary Dressing Telfa pad Secondary Dressing tegaderm Comment Dressing changed earlier in shift d/t patient having moderate amount of bleeding with various staging of bruising around site. Cleaned andf applied telfa pad and tegaderm for dressing. Eye Exam: PERRL, EOMI, eyes nml inspection Ears, Nose, Throat Exam: normal ENT inspection, pharynx normal, moist mucous membranes Neck Exam: normal inspection, non-tender, supple, full range of motion Respiratory Exam: normal breath sounds, lungs clear, No respiratory distress Cardiovascular Exam: regular rate/rhythm, normal heart sounds Gastrointestinal/Abdomen Exam: soft, No tenderness, No mass Extremity Exam: normal inspection, normal range of motion Back Exam: normal inspection, normal range of motion, No CVA tenderness, No vertebral tenderness Pelvic Exam: deferred Rectal Exam: deferred OBJECTIVE DATA Vital Signs: Vital Signs - 24 hr Temp Pulse Resp BP BP Pulse Ox 09/29/23 08:36 85 16 96 09/29/23 07:43 97.0 F 92 H 16 162/80 97 09/29/23 03:38 96.0 F 85 18 155/90 94 L 09/28/23 23:32 97.0 F 96 H 152/91 92 L 09/28/23 19:22 97.7 F 91 H 18 155/88 95 09/28/23 19:17 92 H 20 92 L 09/28/23 16:35 91 L 09/28/23 16:31 92 H 14 91 L 09/28/23 15:16 97.8 F 91 H 18 161/91 98 09/28/23 14:35 90 31 H 168/95 93 L 09/28/23 14:30 92 H 26 H 177/116 94 L 09/28/23 14:20 91 H 28 H 179/106 91 L 09/28/23 14:10 88 26 H 171/115 92 L 09/28/23 14:00 91 H 23 187/108 93 L 09/28/23 13:50 90 23 180/122 94 L 09/28/23 13:40 89 26 H 170/128 92 L 09/28/23 13:30 91 H 26 H 181/113 92 L 09/28/23 13:20 91 H 26 H 178/131 93 L 09/28/23 13:10 90 27 H 191/131 92 L 09/28/23 13:00 91 H 25 H 193/121 92 L 09/28/23 12:45 107 H 20 193/126 94 L 09/28/23 12:30 104 H 17 193/121 93 L 09/28/23 12:15 95 H 22 182/115 92 L 09/28/23 12:00 101 H 25 H 201/132 90 L 09/28/23 11:45 100 H 25 H 191/108 91 L 09/28/23 11:30 103 H 20 205/117 92 L 09/28/23 11:29 102 H 30 H 93 L 09/28/23 11:22 95 09/28/23 11:00 193/112 09/28/23 10:45 101 H 26 H 185/114 95 09/28/23 10:30 98 H 29 H 188/116 95 02/28/24 10:20 95 H 25 H 185/144 09/28/23 10:10 97 H 28 H 202/109 09/28/23 10:00 102 H 28 H 205/120 09/28/23 09:50 104 H 29 H 192/114 09/28/23 09:40 95 H 23 192/116 95 Pain Assessment - Last Documented Pain Intensity 0 Intake and Output: Intake & Output 09/26/23 09/27/23 09/28/23 09/29/23 11:59 11:59 11:59 11:59 Intake Total 30 220 Output Total 1200 1400 Balance -1170 -1180 Weight 93.7 kg 86.3 kg Lab Results: Lab Results-Last 24 Hours 09/28/23 09/28/23 09/28/23 Range/Units 08:09 10:06 13:00 WBC (4.0-10.5) x10^3/uL RBC (4.1-5.4) x10^6/uL Hgb (12.0-16.0) g/dL Hct (35-47) % MCV (78-100) fL MCH (26-32) pg MCHC (32-36) g/dL RDW (11.5-14.0) % Plt Count (150-450) x10^3/uL MPV (7.5-11.0) fL Gran % (36.0-66.0) % Immature Gran % (Auto) (0.00-0.4) % Nucleat RBC Rel Count (0.00-0.1) % Eos # (Auto) (0-0.5) x10^3/uL Immature Gran # (Auto) (0.00-0.03) x10^3u/L Absolute Lymphs (auto) (1.0-4.6) x10^3/uL Absolute Monos (auto) (0.0-1.3) x10^3/uL Absolute Nucleated RBC (0.00-0.01) x10^3u/L Lymphocytes % (24.0-44.0) % Monocytes % (0.0-12.0) % Eosinophils % (0.00-5.0) % Basophils % (0.0-0.4) % Absolute Granulocytes (1.4-6.9) x10^3/uL Basophils # (0-0.4) x10^3/uL Sodium (137-145) mmol/L Potassium (3.5-5.1) mmol/L Chloride (98-107) mmol/L Carbon Dioxide (22-30) mmol/L Anion Gap (5-15) MEQ/L BUN (7-17) mg/dL Creatinine (0.52-1.04) mg/dL Estimated GFR ML/MIN Glucose (74-106) mg/dL POC Glucometer (74 to 106) mg/dL Lactic Acid (0.4-2.0) Calcium (8.4-10.2) mg/dL Magnesium (1.6-2.3) mg/dL Total Bilirubin (0.2-1.3) mg/dL AST (14-36) U/L ALT (0-35) U/L Alkaline Phosphatase (38-126) U/L Troponin I 0.033 (0.000-0.034) ng/mL NT-Pro-B Natriuret Pep (<300) pg/mL Serum Total Protein (6.3-8.2) g/dL Albumin (3.5-5.0) g/dL Procalcitonin (0.030-0.080) ng/mL Urine Color Yellow (Yellow) Urine Appearance Clear (Clear) Urine pH 5.5 (4.6-8.0) Ur Specific [place] 1.015 (1.005-1.030) Urine Protein 300 A (Negative) Urine Glucose (UA) 500 A (Negative) mg/dL Urine Ketones Trace A (Negative) Urine Blood Small A (Negative) Urine Nitrite Negative (Negative) Urine Bilirubin Negative (Negative) Urine Urobilinogen 0.2 (0.2) mg/dL Ur Leukocyte Esterase Negative (Negative) U Hyaline Cast (Auto) NONE SEEN (0-2) /LPF Urine Microscopic RBC 3-5 (0-5) /HPF Urine Microscopic WBC 3-5 (0-5) /HPF Ur Epithelial Cells None Seen (None Seen) /HPF Urine Bacteria None Seen (None Seen) /HPF Urine Culture Reflexed NO (NO) Stl Occult Blood (IFOB) (NEGATIVE) Slides for Path Review YES 02/28/24 02/28/24 02/28/24 Range/Units 14:23 16:15 16:15 WBC (4.0-10.5) x10^3/uL RBC (4.1-5.4) x10^6/uL Hgb (12.0-16.0) g/dL Hct (35-47) % MCV (78-100) fL MCH (26-32) pg MCHC (32-36) g/dL RDW (11.5-14.0) % Plt Count (150-450) x10^3/uL MPV (7.5-11.0) fL Gran % (36.0-66.0) % Immature Gran % (Auto) (0.00-0.4) % Nucleat RBC Rel Count (0.00-0.1) % Eos # (Auto) (0-0.5) x10^3/uL Immature Gran # (Auto) (0.00-0.03) x10^3u/L Absolute Lymphs (auto) (1.0-4.6) x10^3/uL Absolute Monos (auto) (0.0-1.3) x10^3/uL Absolute Nucleated RBC (0.00-0.01) x10^3u/L Lymphocytes % (24.0-44.0) % Monocytes % (0.0-12.0) % Eosinophils % (0.00-5.0) % Basophils % (0.0-0.4) % Absolute Granulocytes (1.4-6.9) x10^3/uL Basophils # (0-0.4) x10^3/uL Sodium (137-145) mmol/L Potassium 3.7 (3.5-5.1) mmol/L Chloride (98-107) mmol/L Carbon Dioxide (22-30) mmol/L Anion Gap (5-15) MEQ/L BUN (7-17) mg/dL Creatinine (0.52-1.04) mg/dL Estimated GFR ML/MIN Glucose (74-106) mg/dL POC Glucometer 217 H (74 to 106) mg/dL Lactic Acid (0.4-2.0) Calcium (8.4-10.2) mg/dL Magnesium 1.4 L (1.6-2.3) mg/dL Total Bilirubin (0.2-1.3) mg/dL AST (14-36) U/L ALT (0-35) U/L Alkaline Phosphatase (38-126) U/L Troponin I 0.029 (0.000-0.034) ng/mL NT-Pro-B Natriuret Pep (<300) pg/mL Serum Total Protein (6.3-8.2) g/dL Albumin (3.5-5.0) g/dL Procalcitonin (0.030-0.080) ng/mL Urine Color (Yellow) Urine Appearance (Clear) Urine pH (4.6-8.0) Ur Specific [place] (1.005-1.030) Urine Protein (Negative) Urine Glucose (UA) (Negative) mg/dL Urine Ketones (Negative) Urine Blood (Negative) Urine Nitrite (Negative) Urine Bilirubin (Negative) Urine Urobilinogen (0.2) mg/dL Ur Leukocyte Esterase (Negative) U Hyaline Cast (Auto) (0-2) /LPF Urine Microscopic RBC (0-5) /HPF Urine Microscopic WBC (0-5) /HPF Ur Epithelial Cells (None Seen) /HPF Urine Bacteria (None Seen) /HPF Urine Culture Reflexed (NO) Stl Occult Blood (IFOB) (NEGATIVE) Slides for Path Review 09/28/23 09/28/23 09/28/23 Range/Units 16:22 16:28 17:00 WBC (4.0-10.5) x10^3/uL RBC (4.1-5.4) x10^6/uL Hgb (12.0-16.0) g/dL Hct (35-47) % MCV (78-100) fL MCH (26-32) pg MCHC (32-36) g/dL RDW (11.5-14.0) % Plt Count (150-450) x10^3/uL MPV (7.5-11.0) fL Gran % (36.0-66.0) % Immature Gran % (Auto) (0.00-0.4) % Nucleat RBC Rel Count (0.00-0.1) % Eos # (Auto) (0-0.5) x10^3/uL Immature Gran # (Auto) (0.00-0.03) x10^3u/L Absolute Lymphs (auto) (1.0-4.6) x10^3/uL Absolute Monos (auto) (0.0-1.3) x10^3/uL Absolute Nucleated RBC (0.00-0.01) x10^3u/L Lymphocytes % (24.0-44.0) % Monocytes % (0.0-12.0) % Eosinophils % (0.00-5.0) % Basophils % (0.0-0.4) % Absolute Granulocytes (1.4-6.9) x10^3/uL Basophils # (0-0.4) x10^3/uL Sodium (137-145) mmol/L Potassium (3.5-5.1) mmol/L Chloride (98-107) mmol/L Carbon Dioxide (22-30) mmol/L Anion Gap (5-15) MEQ/L BUN (7-17) mg/dL Creatinine (0.52-1.04) mg/dL Estimated GFR ML/MIN Glucose (74-106) mg/dL POC Glucometer 224 H (74 to 106) mg/dL Lactic Acid 1.1 (0.4-2.0) Calcium (8.4-10.2) mg/dL Magnesium (1.6-2.3) mg/dL Total Bilirubin (0.2-1.3) mg/dL AST (14-36) U/L ALT (0-35) U/L Alkaline Phosphatase (38-126) U/L Troponin I (0.000-0.034) ng/mL NT-Pro-B Natriuret Pep (<300) pg/mL Serum Total Protein (6.3-8.2) g/dL Albumin (3.5-5.0) g/dL Procalcitonin (0.030-0.080) ng/mL Urine Color (Yellow) Urine Appearance (Clear) Urine pH (4.6-8.0) Ur Specific [place] (1.005-1.030) Urine Protein (Negative) Urine Glucose (UA) (Negative) mg/dL Urine Ketones (Negative) Urine Blood (Negative) Urine Nitrite (Negative) Urine Bilirubin (Negative) Urine Urobilinogen (0.2) mg/dL Ur Leukocyte Esterase (Negative) U Hyaline Cast (Auto) (0-2) /LPF Urine Microscopic RBC (0-5) /HPF Urine Microscopic WBC (0-5) /HPF Ur Epithelial Cells (None Seen) /HPF Urine Bacteria (None Seen) /HPF Urine Culture Reflexed (NO) Stl Occult Blood (IFOB) POSITIVE A (NEGATIVE) Slides for Path Review 09/28/23 09/28/23 09/28/23 Range/Units 21:01 21:55 Unknown WBC (4.0-10.5) x10^3/uL RBC (4.1-5.4) x10^6/uL Hgb 12.3 D (12.0-16.0) g/dL Hct 36.9 (35-47) % MCV (78-100) fL MCH (26-32) pg MCHC (32-36) g/dL RDW (11.5-14.0) % Plt Count (150-450) x10^3/uL MPV (7.5-11.0) fL Gran % (36.0-66.0) % Immature Gran % (Auto) (0.00-0.4) % Nucleat RBC Rel Count (0.00-0.1) % Eos # (Auto) (0-0.5) x10^3/uL Immature Gran # (Auto) (0.00-0.03) x10^3u/L Absolute Lymphs (auto) (1.0-4.6) x10^3/uL Absolute Monos (auto) (0.0-1.3) x10^3/uL Absolute Nucleated RBC (0.00-0.01) x10^3u/L Lymphocytes % (24.0-44.0) % Monocytes % (0.0-12.0) % Eosinophils % (0.00-5.0) % Basophils % (0.0-0.4) % Absolute Granulocytes (1.4-6.9) x10^3/uL Basophils # (0-0.4) x10^3/uL Sodium (137-145) mmol/L Potassium (3.5-5.1) mmol/L Chloride (98-107) mmol/L Carbon Dioxide (22-30) mmol/L Anion Gap (5-15) MEQ/L BUN (7-17) mg/dL Creatinine (0.52-1.04) mg/dL Estimated GFR ML/MIN Glucose (74-106) mg/dL POC Glucometer 222 H (74 to 106) mg/dL Lactic Acid (0.4-2.0) Calcium (8.4-10.2) mg/dL Magnesium (1.6-2.3) mg/dL Total Bilirubin (0.2-1.3) mg/dL AST (14-36) U/L ALT (0-35) U/L Alkaline Phosphatase (38-126) U/L Troponin I (0.000-0.034) ng/mL NT-Pro-B Natriuret Pep (<300) pg/mL Serum Total Protein (6.3-8.2) g/dL Albumin (3.5-5.0) g/dL Procalcitonin 1.340 H (0.030-0.080) ng/mL Urine Color (Yellow) Urine Appearance (Clear) Urine pH (4.6-8.0) Ur Specific [place] (1.005-1.030) Urine Protein (Negative) Urine Glucose (UA) (Negative) mg/dL Urine Ketones (Negative) Urine Blood (Negative) Urine Nitrite (Negative) Urine Bilirubin (Negative) Urine Urobilinogen (0.2) mg/dL Ur Leukocyte Esterase (Negative) U Hyaline Cast (Auto) (0-2) /LPF Urine Microscopic RBC (0-5) /HPF Urine Microscopic WBC (0-5) /HPF Ur Epithelial Cells (None Seen) /HPF Urine Bacteria (None Seen) /HPF Urine Culture Reflexed (NO) Stl Occult Blood (IFOB) (NEGATIVE) Slides for Path Review 09/29/23 09/29/23 09/29/23 Range/Units 04:48 04:48 04:48 WBC 9.9 (4.0-10.5) x10^3/uL RBC 2.97 L (4.1-5.4) x10^6/uL Hgb 9.0 L D (12.0-16.0) g/dL Hct 27.7 L (35-47) % MCV 93.3 (78-100) fL MCH 30.3 (26-32) pg MCHC 32.5 (32-36) g/dL RDW 13.3 (11.5-14.0) % Plt Count 319 (150-450) x10^3/uL MPV 11.5 H (7.5-11.0) fL Gran % 89.2 H (36.0-66.0) % Immature Gran % (Auto) 0.9 H (0.00-0.4) % Nucleat RBC Rel Count 0.0 (0.00-0.1) % Eos # (Auto) 0 (0-0.5) x10^3/uL Immature Gran # (Auto) 0.09 H (0.00-0.03) x10^3u/L Absolute Lymphs (auto) 0.46 L (1.0-4.6) x10^3/uL Absolute Monos (auto) 0.50 (0.0-1.3) x10^3/uL Absolute Nucleated RBC 0.00 (0.00-0.01) x10^3u/L Lymphocytes % 4.6 L (24.0-44.0) % Monocytes % 5.1 (0.0-12.0) % Eosinophils % 0.0 (0.00-5.0) % Basophils % 0.2 (0.0-0.4) % Absolute Granulocytes 8.83 H (1.4-6.9) x10^3/uL Basophils # 0.02 (0-0.4) x10^3/uL Sodium 135 L (137-145) mmol/L Potassium 3.5 (3.5-5.1) mmol/L Chloride 99 (98-107) mmol/L Carbon Dioxide 25 (22-30) mmol/L Anion Gap 14.5 (5-15) MEQ/L BUN 33 H (7-17) mg/dL Creatinine 1.94 H (0.52-1.04) mg/dL Estimated GFR 26.0 ML/MIN Glucose 249 H (74-106) mg/dL POC Glucometer (74 to 106) mg/dL Lactic Acid (0.4-2.0) Calcium 6.6 L (8.4-10.2) mg/dL Magnesium 1.6 (1.6-2.3) mg/dL Total Bilirubin 0.50 (0.2-1.3) mg/dL AST 22 (14-36) U/L ALT 30 (0-35) U/L Alkaline Phosphatase 73 (38-126) U/L Troponin I (0.000-0.034) ng/mL NT-Pro-B Natriuret Pep 5440 (<300) pg/mL Serum Total Protein 6.7 (6.3-8.2) g/dL Albumin 3.6 (3.5-5.0) g/dL Procalcitonin (0.030-0.080) ng/mL Urine Color (Yellow) Urine Appearance (Clear) Urine pH (4.6-8.0) Ur Specific [place] (1.005-1.030) Urine Protein (Negative) Urine Glucose (UA) (Negative) mg/dL Urine Ketones (Negative) Urine Blood (Negative) Urine Nitrite (Negative) Urine Bilirubin (Negative) Urine Urobilinogen (0.2) mg/dL Ur Leukocyte Esterase (Negative) U Hyaline Cast (Auto) (0-2) /LPF Urine Microscopic RBC (0-5) /HPF Urine Microscopic WBC (0-5) /HPF Ur Epithelial Cells (None Seen) /HPF Urine Bacteria (None Seen) /HPF Urine Culture Reflexed (NO) Stl Occult Blood (IFOB) (NEGATIVE) Slides for Path Review YES 09/29/23 Range/Units 07:06 WBC (4.0-10.5) x10^3/uL RBC (4.1-5.4) x10^6/uL Hgb (12.0-16.0) g/dL Hct (35-47) % MCV (78-100) fL MCH (26-32) pg MCHC (32-36) g/dL RDW (11.5-14.0) % Plt Count (150-450) x10^3/uL MPV (7.5-11.0) fL Gran % (36.0-66.0) % Immature Gran % (Auto) (0.00-0.4) % Nucleat RBC Rel Count (0.00-0.1) % Eos # (Auto) (0-0.5) x10^3/uL Immature Gran # (Auto) (0.00-0.03) x10^3u/L Absolute Lymphs (auto) (1.0-4.6) x10^3/uL Absolute Monos (auto) (0.0-1.3) x10^3/uL Absolute Nucleated RBC (0.00-0.01) x10^3u/L Lymphocytes % (24.0-44.0) % Monocytes % (0.0-12.0) % Eosinophils % (0.00-5.0) % Basophils % (0.0-0.4) % Absolute Granulocytes (1.4-6.9) x10^3/uL Basophils # (0-0.4) x10^3/uL Sodium (137-145) mmol/L Potassium (3.5-5.1) mmol/L Chloride (98-107) mmol/L Carbon Dioxide (22-30) mmol/L Anion Gap (5-15) MEQ/L BUN (7-17) mg/dL Creatinine (0.52-1.04) mg/dL Estimated GFR ML/MIN Glucose (74-106) mg/dL POC Glucometer 257 H (74 to 106) mg/dL Lactic Acid (0.4-2.0) Calcium (8.4-10.2) mg/dL Magnesium (1.6-2.3) mg/dL Total Bilirubin (0.2-1.3) mg/dL AST (14-36) U/L ALT (0-35) U/L Alkaline Phosphatase (38-126) U/L Troponin I (0.000-0.034) ng/mL NT-Pro-B Natriuret Pep (<300) pg/mL Serum Total Protein (6.3-8.2) g/dL Albumin (3.5-5.0) g/dL Procalcitonin (0.030-0.080) ng/mL Urine Color (Yellow) Urine Appearance (Clear) Urine pH (4.6-8.0) Ur Specific [place] (1.005-1.030) Urine Protein (Negative) Urine Glucose (UA) (Negative) mg/dL Urine Ketones (Negative) Urine Blood (Negative) Urine Nitrite (Negative) Urine Bilirubin (Negative) Urine Urobilinogen (0.2) mg/dL Ur Leukocyte Esterase (Negative) U Hyaline Cast (Auto) (0-2) /LPF Urine Microscopic RBC (0-5) /HPF Urine Microscopic WBC (0-5) /HPF Ur Epithelial Cells (None Seen) /HPF Urine Bacteria (None Seen) /HPF Urine Culture Reflexed (NO) Stl Occult Blood (IFOB) (NEGATIVE) Slides for Path Review Radiology Exams: Radiology Procedures Category Date Time Status ABDOMEN AND PELVIS W/0 CONTRAS [CT] Urgent Exams 09/28/23 23:59 Completed CHEST WITHOUT CONTRAST [CT] Stat Exams 09/28/23 09:22 Completed KIDNEY [US] Routine Exams 09/29/23 07:46 Ordered Assessment/Plan (1) CHF (congestive heart failure) Current Visit: Yes Status: Acute Code(s): I50.9 - HEART FAILURE, UNSPECIFIED (2) Dyspnea Current Visit: Yes Status: Acute Code(s): R06.00 - DYSPNEA, UNSPECIFIED (3) Non-compliance Current Visit: Yes Status: Acute Code(s): Z91.199 - PT NONCOMPL WITH OTHER MED TRTMT AND REGIMEN D/T UNSP REASON (4) CRF (chronic renal failure) Current Visit: Yes Status: Acute (5) Hypokalemia Current Visit: Yes Status: Acute Code(s): E87.6 - HYPOKALEMIA (6) Hypothyroidism Current Visit: No Status: Chronic Code(s): E03.9 - HYPOTHYROIDISM, UNSPECIFIED (7) Diabetes mellitus Current Visit: No Status: Chronic Qualifiers: Diabetes mellitus type: type 2 Diabetes mellitus academic affairs specialist insulin use: with academic affairs specialist use Diabetes mellitus complication status: with kidney complications Diabetes mellitus complication detail: with chronic kidney disease Chronic kidney disease stage: stage 2 (mild) Qualified Code(s): E11.22 - Type 2 diabetes mellitus with diabetic chronic kidney disease; N18.2 - Chronic kidney disease, stage 2 (mild); Z79.4 - assisted (current) use of insulin Assessment & Plan: (1) CHF (congestive heart failure) Current Visit: Yes Status: Acute Assessment & Plan: - CT w/o contrast 09/28 Impression: 1. Worsening diffuse bilateral consolidating/nonconsolidating airspace disease with new small bilateral effusions. 2. Again chronic findings including arteriosclerotic disease, chronic bony findings, bilateral renal cysts, and old granulomatous disease. - BNP 2710 - tele - RA 98% - MARY ELLEN hose for + 3 pitting edma that is chronic - Pt stopped Multaq d/t hand itching- cardiology consult for recommendations - Lasix gave in ER- continue 40 BID - Records pending from [facility] Echo 07-07-22 CLINICAL INFORMATION: Atrial fibrillation with rapid ventricular response and history of aortic valve replacement. The M-mode 2D, and Doppler echocardiogram including color flow Doppler shows the left ventricle is normal in size. There is no thrombus present. There is mild concentric left ventricular hypertrophy. The left ventricular systolic function is mildly decreased and the ejection fraction is calculated to be 47%. The right ventricle is normal. The left atrium is moderately dilated. The interatrial septum is intact. The right atrium is normal. The aortic valve is not well visualized. There is mitral valve calcification associated with mild mitral regurgitation. There is mild tricuspid regurgitation. The right ventricular systolic pressure is calculated to be 51 mm of Mercury. The pulmonic valve is not well visualized. The aortic root is not well visualized. There is no pericardial effusion present. IMPRESSION: 1) MILD CONCENTRIC LEFT VENTRICULAR HYPERTROPHY. 2) MILD DECREASE IN LEFT VENTRICULAR SYSTOLIC FUNCTION. 3) MODERATE LEFT ATRIAL DILATATION. 4) MILD MITRAL REGURGITATION. 5) MILD TRICUSPID REGURGITATION. 6) SEVERE PULMONARY HYPERTENSION. - CT abd shows BL pleural effusions today - Continue IV lasix Code(s): I50.9 - HEART FAILURE, UNSPECIFIED (2) Dyspnea Current Visit: Yes Status: Acute Assessment & Plan: - resolved since admission - Room air 98% - 2:2 CHF - Procal - SOB improved - Continued RA 97% Code(s): R06.00 - DYSPNEA, UNSPECIFIED (3) Non-compliance Current Visit: Yes Status: Acute Assessment & Plan: - Stopped Mutaq d/t side effects - cards recs pending Code(s): Z91.199 - PT NONCOMPL WITH OTHER MED TRTMT AND REGIMEN D/T UNSP REASON (4) CRF (chronic renal failure) Current Visit: Yes Status: Acute Assessment & Plan: - at baseline renal function (5) Hypokalemia Current Visit: Yes Status: Acute Assessment & Plan: - K+ 3.4- replaced in ER - recheck and replace PRN - resolved Code(s): E87.6 - HYPOKALEMIA (6) Hypothyroidism Current Visit: No Status: Chronic Assessment & Plan: - continue synthroid Code(s): E03.9 - HYPOTHYROIDISM, UNSPECIFIED (7) Diabetes mellitus Current Visit: No Status: Chronic Qualifiers: Diabetes mellitus type: type 2 Diabetes mellitus academic affairs specialist insulin use: with academic affairs specialist use Diabetes mellitus complication status: with kidney complications Diabetes mellitus complication detail: with chronic kidney disease Chronic kidney disease stage: stage 2 (mild) Qualified Code(s): E11.22 - Type 2 diabetes mellitus with diabetic chronic kidney disease; N18.2 - Chronic kidney disease, stage 2 (mild); Z79.4 - assisted (current) use of insulin Assessment & Plan: - Continue lantus and humalog scheduled insulin - Const carb diet - accuchecks ac/hs Code(s): E11.9 - TYPE 2 DIABETES MELLITUS WITHOUT COMPLICATIONS Additional CC's: Code(s): E11.9 - TYPE 2 DIABETES MELLITUS WITHOUT COMPLICATIONS (8) Hematochezia Current Visit: Yes Status: Acute Assessment & Plan: - Last night pt had 2 bloody stools - Hgb dropped from 12 to 9 this AM - General surgery consulted will see today - NPO - No abd. pain - CT abd/ pelvis: IMPRESSION: 1.Multiple tiny hepatic and splenic calcific foci, likely post granulomatous infection sequela. 2. Mesenteric panniculitis - stable. 3. Colonic divertciula seen along the sigmoid and descending colon with no acute inflammation. 4. Mild bilateral pleural effusions. New finding compared to prior. Rest of the above findings are stable. Code(s): K92.1 - MELENA (9) Proteinuria Current Visit: Yes Status: Acute Assessment & Plan: - US kidneys - with hematuria - Will need OP F/u Code(s): R80.9 - PROTEINURIA, UNSPECIFIED (10) Elevated d-dimer Current Visit: Yes Status: Acute Assessment & Plan: - D-dimer 1.03 - Pulm perfusion scan today - On eliquis for a-fib- stopped for possible scope VTE: Eliquis- held, SCD's PPI: Famotidine D/c plan: tomorrow? Next of Kin: Letty Dumont [phone]- child Code status: full Code(s): R79.89 - OTHER SPECIFIED ABNORMAL FINDINGS OF BLOOD CHEMISTRY
[2023-09-29] MEDS ORDERED: ACIDOPHILUS PO SCH (10:00)
[2023-09-29] MEDS ORDERED: BULGARICUS PO SCH (10:00)
[2023-09-29] MEDS ORDERED: NON-FORMULARY ITEM (Cetirizine Hcl [Zyrtec] 10 MG Tablet) PO SCH (10:00)
[2023-09-29] MEDS ORDERED: DILTIAZEM HCL 360 MG PO SCH (10:00)
[2023-09-29] MEDS ORDERED: CYANOCOBALAMIN 1000 MCG PO SCH (10:00)
[2023-09-29] MEDS: Lantus Insulin SQ SCH (10:28)
[2023-09-29] MEDS: Cardizem CD PO SCH (10:29)
[2023-09-29] MEDS: SYNTHROID 100 MCG PO SCH (10:29)
[2023-09-29] MEDS: Acidophilus TABLET PO SCH (10:30)
[2023-09-29] MEDS: CLARITIN 10 MG PO SCH (10:30)
[2023-09-29] MEDS: Vitamin B-12 500 MCG PO SCH (10:30)
[2023-09-29] MEDS: FOLATE 1 MG PO SCH (10:30)
[2023-09-29] MEDS: HUMALOG SQ SCH (10:37)
[2023-09-29] MEDS: ECOTRIN 81 MG PO SCH (11:11)
--- NOTE | 2023-09-29 12:18 | XRAY ---
Indication: Proteinuria and hematuria. Two-dimensional renal sonogram performed. Comparison: July 03, 2021 Again both kidneys are normal in reniform shape with normal color perfusion. Right kidney measures 10.8 x 4.3 x 5.7 cm and left measures 13.8 x 5.7 x 5.3 cm. Right upper pole again demonstrates grossly stable 2.6 x 2.4 x 2.4 cm simple cyst. Left kidney again demonstrates grossly stable 2 simple cysts again largest upper pole measuring 6.0 x 5.6 x 5.9 cm. No focal solid renal mass or hydronephrosis. Corticomedullary differentiation preserved. Again abnormally distended urinary bladder up to 451 cc. No focal bladder mass or wall thickening. Ureteral jets not seen within the allotted exam time. Postvoid volume is 222 cc. Impression: 1. Grossly stable bilateral renal cysts. No new solid/cystic renal mass or hydronephrosis. 2. Again abnormally distended urinary bladder. Large post void residual.
[2023-09-29 13:14] LABS: Hematocrit 31.2 % (35-47)
--- NOTE | 2023-09-29 15:07 | XRAY ---
Indication: Chest pain and short of breath. Comparison: None Patient received 5.5 mCi technetium 99 MAA for the perfusion portion of the exam. Patient inhaled 35.4 mCi aerosolized technetium 99 DTPA for the ventilation. Multiple planar images obtained. Perfusion images demonstrates subtle heterogeneous radiopharmaceutical activity bilaterally. Ventilation images also demonstrates subtle matched heterogeneous radiopharmaceutical activity bilaterally. Incidental small amount of ingested radiopharmaceutical activity in the GI system. Impression: Subtle matched heterogeneous ventilation perfusion activity bilaterally. Findings I believe correspond to the diffuse bilateral airspace disease as seen on CT chest one day earlier. PIOPED criteria for pulmonary embolus is intermediate probability.
[2023-09-29] MEDS ORDERED: BENADRYL 50 MG/ML IV PRN (16:17)
[2023-09-29] MEDS: Toprol Xl 100 MG PO SCH (17:05)
[2023-09-29] MEDS ORDERED: MAG-OX 400 PO ONE (18:00)
[2023-09-29 20:15] LABS: Hematocrit 32.2 % (35-47); Hemoglobin 10.2 g/dL (12.0-16.0)
[2023-09-29] MEDS: ELIQUIS 2.5 MG TABLET PO STA (21:09)
--- NOTE | 2023-09-29 23:11 | PCM.CONS ---
History of Present Illness - Reason for Consult Chief Complaint: pneumonia, chf exacerbation, copd exacerbation, shortness of breath Requesting Provider: NAOMI MARISCAL MD Consulting Provider: MICHELLE GUERRERO MD History of Present Illness: is a 78 year old female. hx per chart review, d/w pt and rn. 78yo recent admission copd exacerbation, UTI, PNA, af rvr to [facility]. cardioverted on heparin then DOAC on dc. the day after was short of breath. presents to ed. in ed or immediately on the floor had maroonish/reddish stool. had repeat smaller blood in stool x3. we were consulted today for the gib. today hemodynamically stable. has been holding eliquis. no abd pain. no c/o prior bleeding. did have c scope maybe 5-10 years ago. her breathing is reportedly much improved. treated for chf. no current complaints. "Date: 09/28/23 History of Present Illness: is a 78 year old female with a PMHX of gastroesophageal reflux disease, insulin-dependent diabetes, atrial fibrillation on Eliquis, TIAs, peripheral neuropathy, CHF, COPD, hyperlipidemia, hypertension and hypothyroidism. Patient was recently admitted into the [facility] (09/21/2023) and di scharged/transferred to [facility] on 09/23/2023. Patient was discharged from [facility] yesterday, afternoon of 09/27/2023. Patient began having wheezing episodes last evening and it was worse today. She was brought into the emergency department by the assistant housekeeping manager service for shortness of breath symptoms. Her room air oxygenation, saturation level on arrival to the emergency departm ent was 90%. Patient has difficult peripheral IV access issues. No steroids were given the patient. Patient also is allergic to albuterol where her ears become red. Patient arrived with expiratory wheezing diffusely bilaterally. This has resolved since admission and lung sounds are now clear and she is on room air at 98%. She continues to have BLLE +3 edma which is chronic. She admits to stopping the new medication for afib rvr that was started at [facility], [place]. She states it caused her hands to be itchy and wants it listed as an allergy on her chart. She has a hx if non-compliance. Will consult cardiology for further suggestions. She has a cardiac event monitor in place on left upper chest. This was placed by Peter prior to D/C yesterday. She lives at an assisted living facility. Pt states she thinks they did not want her back yet as they felt she needed more OP care. Consider ECF placement. She denies CP, SOB, abd. pain, N/V/D. Will continue to treat for CHF exacerbation with Lasix. Lungs are clear will not continue antibiotics for now. Procal pending. BNP 2710. - Review of Systems Constitutional: No Fever, No Chills Eyes: No Symptoms Ears, Nose, & Throat: No Symptoms Respiratory: No Cough, No Short Of Breath Cardiac: Edema, No Chest Pain, No Syncope Abdominal/Gastrointestinal: No Abdominal Pain, No Nausea, No Vomiting, No Diarrhea Genitourinary Symptoms: No Dysuria Musculoskeletal: No Back Pain, No Neck Pain Skin: No Rash Neurological: No Dizziness, No Focal Weakness, No Sensory Changes Psychological: No Symptoms Endocrine: No Symptoms Hematologic/Lymphatic: No Symptoms Immunological/Allergic: No Symptoms" Medications & Allergies Home Medications: Home Medication List Montelukast Sodium 10 mg [Singulair 10 MG] 10 mg PO HS 01/20/18 [History C onfirmed 09/28/23] Buspirone HCl 5 mg [Buspar 5 mg] 5 mg PO BID 12/02/20 [History Confirmed 09/28/23] Cetirizine HCl [Zyrtec] 10 mg PO DAILY 12/02/20 [History Confirmed 09/28/23] Famotidine 20 mg [Pepcid 20 MG] 20 mg PO BID 12/02/20 [History Confirmed 09/28/23] Insulin Glargine [Lantus Insulin] 28 unit SQ QAM 07/06/22 [History Confirmed 09/28/23] Pregabalin 50 mg [Lyrica 50MG] 50 mg PO HS 07/06/22 [History Confirmed 09/28/23] Apixaban [Eliquis 5 mg Tablet] 5 mg PO BID 07/16/22 [History Confirmed 09/28/23] Cyanocobalamin (Vitamin B-12) [Vitamin B-12] 1,000 mcg PO DAILY 07/16/22 [History Confirmed 09/28/23] Acetaminophen [Tylenol] 650 mg PO Q6HPRN PRN 08/31/22 [History Confirmed 09/28/23] Aspirin EC 81 mg [Ecotrin 81 mg] 81 mg PO DAILY 08/31/22 [History Conf irmed 09/28/23] Calcium Carbonate 750 mg [Tums EX 750 MG] 2 tab PO BID 08/31/22 [History Confirmed 09/28/23] Ferrous Sulfate 325 mg [Feosol 325 mg] 325 mg PO BID 08/31/22 [History Confirmed 09/28/23] Folic Acid 1 mg [Folate 1 mg] 1 mg PO DAILY 08/31/22 [History Confirmed 09/28/23] Furosemide 40 mg [Lasix 40 MG] 40 mg PO DAILY 11/02/22 [History Confirmed 09/28/23] Budesonide/Formoterol Fumarate [Budesonide-Formoterol 80-4.5] 2 puffs IH BID 09/21/23 [History Confirmed 09/28/23] Insulin Lispro [Humalog] 12 unit SQ BID 09/21/23 [History Confirmed 09/28/23] calcitrioL [Calcitriol] 0.25 mcg PO BID 09/21/23 [History Confirmed 09/28/23] Insulin Lispro [Humalog] 18 unit SQ DAILY 09/28/23 [History Confirmed 09/28/23] L. Acidophilus/L.bulgaricus [Floranex Tablet] 1 tab PO DAILY 09/28/23 [History Confirmed 09/28/23] Levothyroxine Sodium 100 Mcg [Synthroid 100 Mcg] 200 mcg PO DAILY 09/28/23 [History Confirmed 09/28/23] dilTIAZem HCL [Diltiazem 24Hr ER] 1 tab PO DAILY 09/28/23 [History Confirmed 09/28/23] Allergies/Adverse Reactions: Allergies Allergy/AdvReac Type Severity Reaction Status Date / Time albuterol Allergy Intermediate Swelling Verified 09/28/23 15:12 of Tongue and Lips propranolol [From Inderal LA] Allergy Intermediate Verified 09/28/23 15:12 levofloxacin [From Levaquin] Allergy Unknown Verified 09/28/23 15:12 clonazepam [From Klonopin] Allergy Tightness Verified 09/28/23 15:12 of Throat dronedarone [From Multaq] Allergy Itching Verified 09/28/23 18:45 metoclopramide [From Reglan] Allergy Verified 09/28/23 15:12 propranolol HCl Allergy Swelling Verified 09/28/23 15:12 [From Inderal LA] of Tongue and Lips Sulfa (Sulfonamide Allergy Swelling Verified 09/28/23 15:12 Antibiotics) of Tongue and Lips terfenadine Allergy Verified 09/28/23 15:12 venom-honey bee Allergy Hives Verified 09/28/23 15:12 [bee venom (honey bee)] zanamivir Allergy Swelling Verified 09/28/23 15:12 [From Relenza Diskhaler] of Tongue and Lips cilostazol [From Pletal] AdvReac Severe Swelling Verified 09/28/23 15:12 of Tongue and Lips ticagrelor [From Brilinta] AdvReac Severe Swelling Verified 09/28/23 15:12 of Tongue and Lips - Past Medical History Past Medical History: Yes Neurological History: TIA, Peripheral Neuropathy ENT History: Other Cardiac History: Arrhythmia, Congestive Heart Failure, High Cholesterol, Hypertension, Myocardial Infarction ([place]) Respiratory History: CHF, COPD Endocrine Medical History: Diabetes Type II, Hypothyroidism Musculoskelatal History: No Pertinent History GI Medical History: Other, GERD History: No Pertinent History Pyscho-Social History: Anxiety Reproductive Disorders: Breast Cancer Comment: right eye retinal scratch November 2020, NEUROPATHY - Past Surgical History Past Surgical History: Yes Neuro Surgical History: No Pertinent History Cardiac History: Other Respiratory Surgery: No Pertinent History GI Surgical History: Hernia Repair Genitourinary Surgical Hx: No Pertinent History Musculskeletal Surgical Hx: No Pertinent History Female Surgical History: Mastectomy, Lumpectomy Other Surgical History: left mastectomy 1993, right lumpectomy, right thyroid removed, left thyroid removed with goiter, pubic mass, left knee scope, valve replacement - Social History Smoking Status: Never smoker Exposure to second hand smoke: No Alcohol: None Drug Use: none - Social Determinants of Health Will the patient participate in the screening: Yes Do you worry about a steady place to live?: No Do you have any problems with any of the following?: No known problems In the past 12 months,have you had to go without utilities?: No Have you or anyone in your house had to go without enough: No Transportation Issues: No Has anyone in your support network made you feel unsafe?: No Does the patient want assistance with any of the above?: No - Physical Exam Vital Signs: Vital Signs - 24 hr Temp Pulse Resp BP Pulse Ox 09/29/23 19:38 78 20 96 09/29/23 19:13 97.8 F 74 22 140/67 97 09/29/23 16:00 96.7 F 81 18 125/80 91 L 09/29/23 12:00 96.8 F 89 16 164/81 96 09/29/23 08:36 85 16 96 09/29/23 07:43 97.0 F 92 H 16 162/80 97 09/29/23 03:38 96.0 F 85 18 155/90 94 L 09/28/23 23:32 97.0 F 96 H 152/91 92 L General Appearance: no apparent distress Neurologic Exam: alert, oriented x 3 Eye Exam: No scleral icterus Neck Exam: normal inspection Respiratory Exam: No respiratory distress Cardiovascular Exam: regular rate/rhythm Gastrointestinal/Abdomen Exam: soft, No tenderness, No distention, No mass Rectal Exam: normal rectal tone, hemorrhoids Extremity Exam: pedal edema Skin Exam: warm, dry Wound Assessment: Skin/Wound Assessment Wound/Incision Assessment Start: 09/28/23 23:28 Text: Status: Active Freq: Q6H Protocol: Document 09/29/23 20:00 MP (Rec: 09/29/23 22:17 MP [id number]) Wound/Incision Assessment Right Upper Chest Wound Assessment Shift Assessment Wound Type site where central line was d/ c'd Dressing Status Dry & Intact Primary Dressing Absorbant Pad Secondary Dressing tegaderm Comment DRESSING C/D/I AT THIS TIME Results - Labs Lab/Micro Results: Lab Results-Last 24 Hours 09/29/23 09/29/23 09/29/23 Range/Units 04:48 04:48 04:48 WBC 9.9 (4.0-10.5) x10^3/uL RBC 2.97 L (4.1-5.4) x10^6/uL Hgb 9.0 L D (12.0-16.0) g/dL Hct 27.7 L (35-47) % MCV 93.3 (78-100) fL MCH 30.3 (26-32) pg MCHC 32.5 (32-36) g/dL RDW 13.3 (11.5-14.0) % Plt Count 319 (150-450) x10^3/uL MPV 11.5 H (7.5-11.0) fL Gran % 89.2 H (36.0-66.0) % Immature Gran % (Auto) 0.9 H (0.00-0.4) % Nucleat RBC Rel Count 0.0 (0.00-0.1) % Eos # (Auto) 0 (0-0.5) x10^3/uL Immature Gran # (Auto) 0.09 H (0.00-0.03) x10^3u/L Absolute Lymphs (auto) 0.46 L (1.0-4.6) x10^3/uL Absolute Monos (auto) 0.50 (0.0-1.3) x10^3/uL Absolute Nucleated RBC 0.00 (0.00-0.01) x10^3u/L Lymphocytes % 4.6 L (24.0-44.0) % Monocytes % 5.1 (0.0-12.0) % Eosinophils % 0.0 (0.00-5.0) % Basophils % 0.2 (0.0-0.4) % Absolute Granulocytes 8.83 H (1.4-6.9) x10^3/uL Basophils # 0.02 (0-0.4) x10^3/uL Sodium 135 L (137-145) mmol/L Potassium 3.5 (3.5-5.1) mmol/L Chloride 99 (98-107) mmol/L Carbon Dioxide 25 (22-30) mmol/L Anion Gap 14.5 (5-15) MEQ/L BUN 33 H (7-17) mg/dL Creatinine 1.94 H (0.52-1.04) mg/dL Estimated GFR 26.0 ML/MIN Glucose 249 H (74-106) mg/dL POC Glucometer (74 to 106) mg/dL Calcium 6.6 L (8.4-10.2) mg/dL Magnesium 1.6 (1.6-2.3) mg/dL Total Bilirubin 0.50 (0.2-1.3) mg/dL AST 22 (14-36) U/L ALT 30 (0-35) U/L Alkaline Phosphatase 73 (38-126) U/L NT-Pro-B Natriuret Pep 5440 (<300) pg/mL Serum Total Protein 6.7 (6.3-8.2) g/dL Albumin 3.6 (3.5-5.0) g/dL Slides for Path Review YES 09/29/23 09/29/23 09/29/23 Range/Units 07:06 11:18 13:10 WBC (4.0-10.5) x10^3/uL RBC (4.1-5.4) x10^6/uL Hgb 10.0 L (12.0-16.0) g/dL Hct 31.2 L (35-47) % MCV (78-100) fL MCH (26-32) pg MCHC (32-36) g/dL RDW (11.5-14.0) % Plt Count (150-450) x10^3/uL MPV (7.5-11.0) fL Gran % (36.0-66.0) % Immature Gran % (Auto) (0.00-0.4) % Nucleat RBC Rel Count (0.00-0.1) % Eos # (Auto) (0-0.5) x10^3/uL Immature Gran # (Auto) (0.00-0.03) x10^3u/L Absolute Lymphs (auto) (1.0-4.6) x10^3/uL Absolute Monos (auto) (0.0-1.3) x10^3/uL Absolute Nucleated RBC (0.00-0.01) x10^3u/L Lymphocytes % (24.0-44.0) % Monocytes % (0.0-12.0) % Eosinophils % (0.00-5.0) % Basophils % (0.0-0.4) % Absolute Granulocytes (1.4-6.9) x10^3/uL Basophils # (0-0.4) x10^3/uL Sodium (137-145) mmol/L Potassium (3.5-5.1) mmol/L Chloride (98-107) mmol/L Carbon Dioxide (22-30) mmol/L Anion Gap (5-15) MEQ/L BUN (7-17) mg/dL Creatinine (0.52-1.04) mg/dL Estimated GFR ML/MIN Glucose (74-106) mg/dL POC Glucometer 257 H 315 H (74 to 106) mg/dL Calcium (8.4-10.2) mg/dL Magnesium (1.6-2.3) mg/dL Total Bilirubin (0.2-1.3) mg/dL AST (14-36) U/L ALT (0-35) U/L Alkaline Phosphatase (38-126) U/L NT-Pro-B Natriuret Pep (<300) pg/mL Serum Total Protein (6.3-8.2) g/dL Albumin (3.5-5.0) g/dL Slides for Path Review 09/29/23 09/29/23 09/29/23 Range/Units 16:28 20:10 21:09 WBC (4.0-10.5) x10^3/uL RBC (4.1-5.4) x10^6/uL Hgb 10.2 L (12.0-16.0) g/dL Hct 32.2 L (35-47) % MCV (78-100) fL MCH (26-32) pg MCHC (32-36) g/dL RDW (11.5-14.0) % Plt Count (150-450) x10^3/uL MPV (7.5-11.0) fL Gran % (36.0-66.0) % Immature Gran % (Auto) (0.00-0.4) % Nucleat RBC Rel Count (0.00-0.1) % Eos # (Auto) (0-0.5) x10^3/uL Immature Gran # (Auto) (0.00-0.03) x10^3u/L Absolute Lymphs (auto) (1.0-4.6) x10^3/uL Absolute Monos (auto) (0.0-1.3) x10^3/uL Absolute Nucleated RBC (0.00-0.01) x10^3u/L Lymphocytes % (24.0-44.0) % Monocytes % (0.0-12.0) % Eosinophils % (0.00-5.0) % Basophils % (0.0-0.4) % Absolute Granulocytes (1.4-6.9) x10^3/uL Basophils # (0-0.4) x10^3/uL Sodium (137-145) mmol/L Potassium (3.5-5.1) mmol/L Chloride (98-107) mmol/L Carbon Dioxide (22-30) mmol/L Anion Gap (5-15) MEQ/L BUN (7-17) mg/dL Creatinine (0.52-1.04) mg/dL Estimated GFR ML/MIN Glucose (74-106) mg/dL POC Glucometer 167 H 163 H (74 to 106) mg/dL Calcium (8.4-10.2) mg/dL Magnesium (1.6-2.3) mg/dL Total Bilirubin (0.2-1.3) mg/dL AST (14-36) U/L ALT (0-35) U/L Alkaline Phosphatase (38-126) U/L NT-Pro-B Natriuret Pep (<300) pg/mL Serum Total Protein (6.3-8.2) g/dL Albumin (3.5-5.0) g/dL Slides for Path Review Microbiology 09/28/23 10:28 Urine Culture - Preliminary Catherized NO GROWTH TO DATE Accuchecks Date 09/29/23 - Radiology Impressions Radiology Exams & Impressions: Radiology Procedures Category Date Time Status ABDOMEN AND PELVIS W/0 CONTRAS [CT] Urgent Exams 09/28/23 23:59 Completed CHEST WITHOUT CONTRAST [CT] Stat Exams 09/28/23 09:22 Completed KIDNEY [US] Routine Exams 09/29/23 07:46 Completed PULMONARY PERF VENTILATION [NUCMED] Routine Exams 09/29/23 09:58 Completed Assessment/Plan (1) Hematochezia Current Visit: Yes Status: Acute Assessment & Plan: 78yo female with hematochezia, reported as some marroon and some brbpr on new anticoagulation for afib. did have 2g drop in hgb since last admission consistent with clinically signficant bleeding. shantal discussion we could set her up for inpatient endoscopy vs outpt endoscopy. it appears they might be considering placement also so might be inpatient for a while anyways. -reg diet for now. -tuesday no fiber -tuesday CLD with bowel prep. -tuesday npo for egd and c scope. mac. -we will ask anesthesia to review her chart tomorrow to make sure they are comfortable with her medical condition. echo/respiratory status looked ok to me. Code(s): K92.1 - MELENA
[2023-09-30 04:59] LABS: Hematocrit 34.3 % (35-47); Hemoglobin 11.1 g/dL (12.0-16.0); Mean Cell Volume 92.7 fL (78-100); Mean Corpuscular Hgb Concent. 32.4 g/dL (32-36); Mean Platelet Volume 11.4 fL (7.5-11.0); Platelet Count 285 x10^3/uL (150-450); Red Cell Distribution Width 13.5 % (11.5-14.0); White Blood Count 7.6 x10^3/uL (4.0-10.5)
[2023-09-30 05:25] LABS: ALBUMIN 3.4 g/dL (3.5-5.0); ANION GAP 13.1 MEQ/L (5-15); BILIRUBIN,TOTAL 0.4 mg/dL (0.2-1.3); Calcium 6.1 mg/dL (8.4-10.2); Creatinine 1 2.16 mg/dL (0.52-1.04); EST GLOMERULAR FILTRATION RATE 22.9 ML/MIN; Potassium 3.2 mmol/L (3.5-5.1); Total Protein 6.3 g/dL (6.3-8.2)
[2023-09-30 07:50] VITALS: O2SAT 97
[2023-09-30] MEDS: Klor Con PO SCH (10:44)
[2023-09-30] MEDS: ELIQUIS 2.5 MG TABLET PO SCH (10:46)
--- NOTE | 2023-09-30 11:46 | PCM.DS ---
Discharge Summary Date of Admission: 09/28/23 14:45 Date of Discharge: 09/30/23 Admitting Physician: NAOMI MARISCAL MD Consults: Consults on Case 09/28/23 15:29 Consult Cardiology ROUTINE 09/29/23 07:00 Consult Surgery ROUTINE Primary Care Provider: JANNA CHAWLA DO Allergies Allergies albuterol Allergy (Intermediate, Verified 09/28/23 15:12) Swelling of Tongue and Lips propranolol [From Inderal LA] Allergy (Intermediate, Verified 09/28/23 15:12) red face and ears levofloxacin [From Levaquin] Allergy (Unknown, Verified 09/28/23 15:12) clonazepam [From Klonopin] Allergy (Verified 09/28/23 15:12) Tightness of Throat tongue swollen dronedarone [From Multaq] Allergy (Verified 09/28/23 18:45) Itching metoclopramide [From Reglan] Allergy (Verified 09/28/23 15:12) propranolol HCl [From Inderal LA] Allergy (Verified 09/28/23 15:12) Swelling of Tongue and Lips red face and ears Sulfa (Sulfonamide Antibiotics) Allergy (Verified 09/28/23 15:12) Swelling of Tongue and Lips throat swell,ears red terfenadine Allergy (Verified 09/28/23 15:12) venom-honey bee [bee venom (honey bee)] Allergy (Verified 09/28/23 15:12) Hives large hives zanamivir [From Relenza Diskhaler] Allergy (Verified 09/28/23 15:12) Swelling of Tongue and Lips throat tightness cilostazol [From Pletal] Adverse Reaction (Severe, Verified 09/28/23 15:12) Swelling of Tongue and Lips ticagrelor [From Brilinta] Adverse Reaction (Severe, Verified 09/28/23 15:12) Swelling of Tongue and Lips Hospital Summary - Hospital Course Hospital Course: 09/28/23 is a 78 year old female with a PMHX of gastroesophageal reflux disease, insulin-dependent diabetes, atrial fibrillation on Eliquis, TIAs, peripheral neuropathy, CHF, COPD, hyperlipidemia, hypertension and hypothyroidism. Patient was recently admitted into the [facility] (09/21/2023) and discharged/transferred to [facility] on 09/23/2023. Patient was discharged from [facility] yesterday, afternoon of 09/27/2023. Patient began having wheezing episodes last evening and it was worse today. She was b rought into the emergency department by the mid level business analyst service for shortness of breath symptoms. Her room air oxygenation, saturation level on arrival to the emergency department was 90%. Patient has a hx of difficult peripheral IV access issues. Midline placed in ER. No steroids were given the patient. Patient also is allergic to albuterol where her ears become red. Patient arrived with expiratory wheezing diffusely bilaterally. This has resolved since admission and lung sounds are now clear and she is on room air at 98%. She continues to have BLLE +3 edma which is chronic. She admits to stopping the new medication for afib rvr that was started at [facility], Multaq. She states it caused her hands to be itchy and wants it listed as an allergy on her chart. She has a hx of non-compliance. Will consult cardiology for further suggestions. She has a cardiac event monitor in place on left upper chest. This was placed by [facility] prior to D/C yesterday. She lives at an assisted living facility. Pt states she thinks they did not want her back yet as they felt she needed more OP care. Consider ECF placement. She denies CP, SOB, abd. pain, N/V/D. Will continue to treat for CHF exacerbation with Lasix. Lungs are clear will not continue antibiotics for now. Procal pending. BNP 2710. Pt states she does have PRN oxygen at home but has not been using it. She only uses it as needed. 09/29/23 Pt resting in bed. She she developed bloody stools yesterday evening and general surgery consulted. Hgb stable at 9 this morning. She is NPO. CT abd pelvis did show diverticulia, no diverticulitis. SOB has improved she is RA 97%. WBC normal. CT does show mild BL pleural effusions. Will order VQ scan for elevated d-dimer. US of kidneys ordered for further evaluation of proteinuria and hematur ia. Will need OP f/u with nephrology and possibly urology. She denies any further concerns at this time. 09/30/23 Pt resting in bed. She had not had any bloody stools since Tuesday. Hgb stable at 11.1. Will have pt f/u with general surgery OP. Cardiology consulted yesterday as pt refused to take Multaq d/t side effects. Cardizem d/c'd by cardiology yesterday, and was started on metoprolol. She did not have any side effects overnight with this medication. VQ scan was indeterminate for PE. Pt is already on Eliquis, will continue. supervisor education LUAN Heredia called and asked why pt was not on an antibiotic last night as pt has a slightly elevated procal. Education provided to LUAN Heredia. Pt's WBC is normal, she is on room air, and lung sounds are clear. Pt recently went into a-fib RVR this week with cardioversion at [facility] and slightly elevated procal may be r/t inflammation. Pt also has CKD and may be related to this. She does not appear to have pneumonia as thought on admission. SOB on admission more related to CHF exacerbation. Sxs have resolved. She will need to f/u with cardiology, nephrology, surgery, and PCP OP. Consider urology if she again develops hematuira. This has resolved. BLLE edema has resolved and encouraged pt to continue to wear MARY ELLEN hose OP. - Vitals & Intake/Output Vital Signs: Vital Signs Temperature 97.3 F 09/30/23 07:49 Pulse Rate 66 09/30/23 07:49 Respiratory Rate 18 09/30/23 07:49 Blood Pressure 140/79 09/30/23 07:49 O2 Sat by Pulse Oximetry 97 09/30/23 07:49 Intake & Output: Intake & Output 09/27/23 09/28/23 09/29/23 09/30/23 11:59 11:59 11:59 11:59 Intake Total 30 220 620 Output Total 1200 1400 Balance -1170 -1180 620 Weight 93.7 kg 86.3 kg 83.4 kg - Lab Result Diagrams: 09/30/23 04:42 09/30/23 04:42 Lab Results-Last 24 Hrs: Lab Results-Last 24 Hours 09/29/23 09/29/23 09/29/23 Range/Units 13:10 16:28 20:10 WBC (4.0-10.5) x10^3/uL RBC (4.1-5.4) x10^6/uL Hgb 10.0 L 10.2 L (12.0-16.0) g/dL Hct 31.2 L 32.2 L (35-47) % MCV (78-100) fL MCH (26-32) pg MCHC (32-36) g/dL RDW (11.5-14.0) % Plt Count (150-450) x10^3/uL MPV (7.5-11.0) fL Sodium (137-145) mmol/L Potassium (3.5-5.1) mmol/L Chloride (98-107) mmol/L Carbon Dioxide (22-30) mmol/L Anion Gap (5-15) MEQ/L BUN (7-17) mg/dL Creatinine (0.52-1.04) mg/dL Estimated GFR ML/MIN Glucose (74-106) mg/dL POC Glucometer 167 H (74 to 106) mg/dL Calcium (8.4-10.2) mg/dL Total Bilirubin (0.2-1.3) mg/dL AST (14-36) U/L ALT (0-35) U/L Alkaline Phosphatase (38-126) U/L Serum Total Protein (6.3-8.2) g/dL Albumin (3.5-5.0) g/dL 09/29/23 09/30/23 09/30/23 Range/Units 21:09 04:42 04:42 WBC 7.6 (4.0-10.5) x10^3/uL RBC 3.70 L (4.1-5.4) x10^6/uL Hgb 11.1 L (12.0-16.0) g/dL Hct 34.3 L (35-47) % MCV 92.7 (78-100) fL MCH 30.0 (26-32) pg MCHC 32.4 (32-36) g/dL RDW 13.5 (11.5-14.0) % Plt Count 285 (150-450) x10^3/uL MPV 11.4 H (7.5-11.0) fL Sodium 137 (137-145) mmol/L Potassium 3.2 L (3.5-5.1) mmol/L Chloride 97 L (98-107) mmol/L Carbon Dioxide 30 (22-30) mmol/L Anion Gap 13.1 (5-15) MEQ/L BUN 45 H (7-17) mg/dL Creatinine 2.16 H (0.52-1.04) mg/dL Estimated GFR 22.9 ML/MIN Glucose 137 H (74-106) mg/dL POC Glucometer 163 H (74 to 106) mg/dL Calcium 6.1 L (8.4-10.2) mg/dL Total Bilirubin 0.40 (0.2-1.3) mg/dL AST 25 (14-36) U/L ALT 30 (0-35) U/L Alkaline Phosphatase 61 (38-126) U/L Serum Total Protein 6.3 (6.3-8.2) g/dL Albumin 3.4 L (3.5-5.0) g/dL 09/30/23 Range/Units 07:18 WBC (4.0-10.5) x10^3/uL RBC (4.1-5.4) x10^6/uL Hgb (12.0-16.0) g/dL Hct (35-47) % MCV (78-100) fL MCH (26-32) pg MCHC (32-36) g/dL RDW (11.5-14.0) % Plt Count (150-450) x10^3/uL MPV (7.5-11.0) fL Sodium (137-145) mmol/L Potassium (3.5-5.1) mmol/L Chloride (98-107) mmol/L Carbon Dioxide (22-30) mmol/L Anion Gap (5-15) MEQ/L BUN (7-17) mg/dL Creatinine (0.52-1.04) mg/dL Estimated GFR ML/MIN Glucose (74-106) mg/dL POC Glucometer 77 (74 to 106) mg/dL Calcium (8.4-10.2) mg/dL Total Bilirubin (0.2-1.3) mg/dL AST (14-36) U/L ALT (0-35) U/L Alkaline Phosphatase (38-126) U/L Serum Total Protein (6.3-8.2) g/dL Albumin (3.5-5.0) g/dL Micro Results-Entire Visit: Microbiology 09/28/23 10:28 Urine Culture - Final Catherized NO GROWTH 09/28/23 08:09 Blood Culture - Preliminary Blood Accuchecks Date 09/30/23 Time 07:48 - Radiology Exams Ordered Rad Exams-Entire Visit: Radiology Procedures Category Date Time Status ABDOMEN AND PELVIS W/0 CONTRAS [CT] Urgent Exams 09/28/23 23:59 Completed KIDNEY [US] Routine Exams 09/29/23 07:46 Completed PULMONARY PERF VENTILATION [NUCMED] Routine Exams 09/29/23 09:58 Completed - Procedures and Test Procedures and Tests throughout Hospitalization: Therapy Orders & Screens 09/28/23 07:58 Respiratory Therapy Assessment DAILY Comment: 09/28/23 14:54 EKG REPEAT IN AM Comment: Oxygen Nasal Cannula 2 lpm Comment: Respiratory Therapy Consult ONCE Comment: Reason For Exam: 09/28/23 16:31 Respiratory Therapy Assessment DAILY Comment: Diagnosis: pneumonia, chf exacerbation, copd exacerbation, shortness of breath 09/29/23 11:01 PT Eval & Treat (MD Order) ONCE Reason for Eval:: NH PLACEMENT Diagnosis: pneumonia, chf exacerbation, copd exacerbation, shortness of breath Discharge Exam General Appearance: no apparent distress, alert Neurologic Exam: alert, oriented x 3, cooperative, normal mood/affect, nml cerebellar function, sensation nml, No motor deficits Eye Exam: PERRL, EOMI, eyes nml inspection Ears, Nose, Throat Exam: normal ENT inspection, pharynx normal, moist mucous membranes Neck Exam: normal inspection, non-tender, supple, full range of motion Respiratory Exam: normal breath sounds, lungs clear, No respiratory distress Cardiovascular Exam: regular rate/rhythm, normal heart sounds Gastrointestinal/Abdomen Exam: soft, No tenderness, No mass Pelvic Exam: deferred Rectal Exam: deferred Back Exam: normal inspection, normal range of motion, No CVA tenderness, No vertebral tenderness Extremity Exam: normal inspection, normal range of motion Skin Exam: normal color, warm, dry Wound Assessment: Skin/Wound Assessment Wound/Incision Assessment Start: 09/28/23 23:28 Text: Status: Active Freq: Q6H Protocol: Document 09/30/23 08:00 KD (Rec: 09/30/23 09:44 KD [id number]) Wound/Incision Assessment Right Upper Chest Wound Assessment Shift Assessment Wound Type site where central line was d/ c'd Dressing Status Dry & Intact Primary Dressing Absorbant Pad Secondary Dressing tegaderm Comment dressing c/d/i at this time Final Diagnosis/Problem List - Final Discharge Diagnosis/Problem (1) CHF (congestive heart failure) Current Visit: Yes Status: Acute Code(s): I50.9 - HEART FAILURE, UNSPECIFIED (2) Dyspnea Current Visit: Yes Status: Acute Code(s): R06.00 - DYSPNEA, UNSPECIFIED (3) Non-compliance Current Visit: Yes Status: Acute Code(s): Z91.199 - PT NONCOMPL WITH OTHER MED TRTMT AND REGIMEN D/T UNSP REASON (4) CRF (chronic renal failure) Current Visit: Yes Status: Acute (5) Hypokalemia Current Visit: Yes Status: Acute Code(s): E87.6 - HYPOKALEMIA (6) Hypothyroidism Current Visit: No Status: Chronic Code(s): E03.9 - HYPOTHYROIDISM, UNSPECI FIED (7) Diabetes mellitus Current Visit: No Status: Chronic Code(s): E11.9 - TYPE 2 DIABETES MELLITUS WITHOUT COMPLICATIONS (8) Hematochezia Current Visit: Yes Status: Acute Code(s): K92.1 - MELENA (9) Proteinuria Current Visit: Yes Status: Acute Code(s): R80.9 - PROTEINURIA, UNSPECIFIED (10) Elevated d-dimer Current Visit: Yes Status: Acute Assessment & Plan: 1) CHF (congestive heart failure) Current Visit: Yes Status: Acute Assessment & Plan: - CT w/o contrast 09/28 Impression: 1. Worsening diffuse bilateral consolidating/nonconsolidating airspace disease with new small bilateral effusions. 2. Again chronic findings including arteriosclerotic disease, chronic bony findings, bilateral renal cysts, and old granulomatous disease. - BNP 2710 - tele - RA 98% - MARY ELLEN hose for + 3 pitting edma that is chronic - Pt stopped Multaq d/t hand itching- cardiology consult for recommendations - Lasix gave in ER- continue 40 BID - Records pending from [facility] - Echo 07-07-22 CLINICAL INFORMATION: Atrial fibrillation with rapid ventricular response and history of aortic valve replacement. The M-mode 2D, and Doppler echocardiogram including color flow Doppler shows the left ventricle is normal in size. There is no thrombus present. There is mild concentric left ventricular hypertrophy. The left ventricular systolic function is mildly decreased and the ejection fraction is calculated to be 47%. The right ventricle is normal. The left atrium is moderately dilated. The interatrial septum is intact. The right atrium is normal. The aortic valve is not well visualized. There is mitral valve calcification associated with mild mitral regurgitation. There is mild tricuspid regurgitation. The right ventricular systolic pressure is calculated to be 51 mm of Mercury. The pulmonic valve is not well visualized. The aortic root is not well visualized. There is no pericardial effusion present. IMPRESSION: 1) MILD CONCENTRIC LEFT VENTRICULAR HYPERTROPHY. 2) MILD DECREASE IN LEFT VENTRICULAR SYSTOLIC FUNCTION. 3) MODERATE LEFT ATRIAL DILATATION. 4) MILD MITRAL REGURGITATION. 5) MILD TRICUSPID REGURGITATION. 6) SEVERE PULMONARY HYPERTENSION. - CT abd shows BL pleural effusions today - Continue IV lasix - MARY ELLEN hose - cardiology recs: Start metoprolol stop cardizem 09/29 - Continue MARY ELLEN hose OP - Appointment made to f/u with cardiology OP Code(s): I50.9 - HEART FAILURE, UNSPECIFIED (2) Dyspnea Current Visit: Yes Status: Acute Assessment & Plan: - resolved since admission - Room air 98% - 2:2 CHF - Procal 1.340- most likely 2:2 CKD, and recent cardioversion - Continued RA 97% 09/29 - resolved Code(s): R06.00 - DYSPNEA, UNSPECIFIED (3) Non-compliance Current Visit: Yes Status: Acute Assessment & Plan: - Stopped Mutaq d/t side effects - cards recs pending - refused SCD's Code(s): Z91.199 - PT NONCOMPL WITH OTHER MED TRTMT AND REGIMEN D/T UNSP REASON (4) CRF (chronic renal failure) Current Visit: Yes Status: Acute Assessment & Plan: - at baseline renal function 09/29 - Appointment made with nephrology OP - renal function a bit worse today 2:2 Lasix IV - Continue home dose of Lasix OP (5) Hypokalemia Current Visit: Yes Status: Acute Assessment & Plan: - K+ 3.4- replaced in ER - recheck and replace PRN - resolved Code(s): E87.6 - HYPOKALEMIA (6) Hypothyroidism Current Visit: No Status: Chronic Assessment & Plan: - continue synthroid Code(s): E03.9 - HYPOTHYROIDISM, UNSPECIFIED (7) Diabetes mellitus Current Visit: No Status: Chronic Qualifiers: Diabetes mellitus type: type 2 Diabetes mellitus parts counterman insulin use: with parts counterman use Diabetes mellitus complication status: with kidney complications Diabetes mellitus complication detail: with chronic kidney disease Chronic kidney disease stage: stage 2 (mild) Qualified Code(s): E11.22 - Type 2 diabetes mellitus with diabetic chronic kidney disease; N18.2 - Chronic kidney disease, stage 2 (mild); Z79.4 - MCFP (current) use of insulin Assessment & Plan: - Continue lantus and humalog scheduled insulin - Const carb diet - accuchecks ac/hs Code(s): E11.9 - TYPE 2 DIABETES MELLITUS WITHOUT COMPLICATIONS Additional CC's: Code(s): E11.9 - TYPE 2 DIABETES MELLITUS WITHOUT COMPLICATIONS (8) Hematochezia Current Visit: Yes Status: Acute Assessment & Plan: - Last night pt had 2 bloody stools - Hgb dropped from 12 to 9 this AM - General surgery consulted will see today - NPO - No abd. pain - CT abd/ pelvis: IMPRESSION: 1.Multiple tiny hepatic and splenic calcific foci, likely post granulomatous infection sequela. 2. Mesenteric panniculitis - stable. 3. Colonic divertciula seen along the sigmoid and descending colon with no acute inflammation. 4. Mild bilateral pleural effusions. New finding compared to prior. Rest of the above findings are stable. 09/29 - resolved - f/u OP with GS- appointment made - Continue Eliquis - Hgb 11.1 Code(s): K92.1 - MELENA (9) Proteinuria Current Visit: Yes Status: Acute Assessment & Plan: - US kidneys 09/29/23 Impression: 1. Grossly stable bilateral renal cysts. No new solid/cystic renal mass or hydronephrosis. 2. Again abnormally distended urinary bladder. Large post void residual - with hematuria - Will need OP F/u 09/29 - resolved - F/U with nephrology OP Code(s): R80.9 - PROTEINURIA, UNSPECIFIED (10) Elevated d-dimer Current Visit: Yes Status: Acute Assessment & Plan: - D-dimer 1.03 - Pulm perfusion scan Impression: Subtle matched heterogeneous ventilation perfusion activity bilaterally. Findings I believe correspond to the diffuse bilateral airspace disease as seen on CT chest one day earlier. PIOPED criteria for pulmonary embolus is intermediate probability. - On eliquis for a-fib- continue Code(s): R79.89 - OTHER SPECIFIED ABNORMAL FINDINGS OF BLOOD CHEMISTRY - Discharge Discharge Date: 09/30/23 (assisted living) Disposition: Home, Self-Care Condition: Good Prescriptions: New Metoprolol Succinate 100 mg [Toprol Xl 100 MG] 100 mg PO DAILY 30 Days #30 tablet Continue Montelukast Sodium 10 mg [Singulair 10 MG] 10 mg PO HS Buspirone HCl 5 mg [Buspar 5 mg] 5 mg PO BID Famotidine 20 mg [Pepcid 20 MG] 20 mg PO BID Cetirizine HCl [Zyrtec] 10 mg PO DAILY Pregabalin 50 mg [Lyrica 50MG] 50 mg PO HS Insulin Glargine [Lantus Insulin] 28 unit SQ QAM Apixaban [Eliquis 5 mg Tablet] 5 mg PO BID Cyanocobalamin (Vitamin B-12) [Vitamin B-12] 1,000 mcg PO DAILY Aspirin EC 81 mg [Ecotrin 81 mg] 81 mg PO DAILY Folic Acid 1 mg [Folate 1 mg] 1 mg PO DAILY Ferrous Sulfate 325 mg [Feosol 325 mg] 325 mg PO BID Calcium Carbonate 750 mg [Tums EX 750 MG] 2 tab PO BID Acetaminophen [Tylenol] 650 mg PO Q6HPRN PRN PRN Reason: Pain Furosemide 40 mg [Lasix 40 MG] 40 mg PO DAILY calcitrioL [Calcitriol] 0.25 mcg PO BID Budesonide/Formoterol Fumarate [Budesonide-Formoterol 80-4.5] 2 puffs IH BID Insulin Lispro [Humalog] 12 unit SQ BID Insulin Lispro [Humalog] 18 unit SQ DAILY L. Acidophilus/L.bulgaricus [Floranex Tablet] 1 tab PO DAILY Levothyroxine Sodium 100 Mcg [Synthroid 100 Mcg] 200 mcg PO DAILY Discontinued dilTIAZem HCL [Diltiazem 24Hr ER] 1 tab PO DAILY Additional Instructions: *Resume MARY ELLEN hose at home while awake. Take off at bedtime. Elevate legs as much as possible to decrease edema. Follow up with: JANNA CHAWLA DO [Primary Care Provider] - MICHELLE GUERRERO MD [ACTIVE STAFF] - (NEXT WEEK F/U BLOODY STOOLS )
[2023-09-30 12:12] VITALS: BP 193/79; PULSE 72; RESP 17; TEMP 97.7
[2023-09-30] MEDS: HUMALOG SQ PRN (12:47)
== END 2023-09-30 14:49 | disposition home health service (06) ==
LOC: ED 07:33 → MED SURG 14:45
PROVIDERS: ADMIT Internal Medicine; ATTEND Internal Medicine
DX: E11.22 Type 2 diabetes mellitus with diabetic chronic kidney disease (principal); I13.0 Hypertensive heart and chronic kidney disease with heart failure and stage 1 through stage 4 chronic kidney disease, or unspecified chronic kidney disease; I50.9 Heart failure, unspecified; N18.2 Chronic kidney disease, stage 2 (mild); R06.00 Dyspnea, unspecified; Z91.199 Patient's noncompliance with other medical treatment and regimen due to unspecified reason; N17.9 Acute kidney failure, unspecified; E87.6 Hypokalemia; E03.9 Hypothyroidism, unspecified; E11.9 Type 2 diabetes mellitus without complications; K92.1 Melena; R80.9 Proteinuria, unspecified; R79.89 Other specified abnormal findings of blood chemistry; Z79.4 Long term (current) use of insulin; Z79.01 Long term (current) use of anticoagulants; Z79.899 Other long term (current) drug therapy; Z20.828 Contact with and (suspected) exposure to other viral communicable diseases; K21.9 Gastro-esophageal reflux disease without esophagitis; I48.91 Unspecified atrial fibrillation; Z86.73 Personal history of transient ischemic attack (TIA), and cerebral infarction without residual deficits; E78.5 Hyperlipidemia, unspecified; R60.0 Localized edema; I25.2 Old myocardial infarction; Z85.3 Personal history of malignant neoplasm of breast
CPT/HCPCS: 0241U; 36410; 36415; 51702; 71250; 74176; 76770; 78582; 80053; 81001; 82947; 83605; 83735; 83880; 84132; 84145; 84484; 85014; 85018; 85025; 85027; 85379; 87040; 87086; 93005; 93041; 94640; 94760; 96372; 96374; 96375; 96376; 97161; 97530; 99285; A9540; A9567; G0328; Q3014; 36000; 76942; 82274; 93268; 99100; J0696; J1815; J1817; J1940; J2930; A9270-GY; G0378

== ENCOUNTER 2023-11-15 11:16 | Observation (INO) | payer MEDICARE ==
--- NOTE | 2023-11-15 11:24 | ERPHSYRPT ---
- History of Present Illness Time Seen by Provider: 11/15/23 11:21 Source: patient Exam Limitations: no limitations Physician History: 70-year-old female presents to our ED via EMS from [place] for evaluation of "just does not seem herself". Staff reports that patient is on Eliquis. She reportedly had a fall yesterday. Patient denied injury. Patient currently f eels well. No chest pain or shortness of breath. No nausea vomiting or diaphoresis. Patient admits to urinary symptomology. She has been experiencing urinary urgency. No obvious hematuria no back pain or flank pain. Patient otherwise feels well. Patient appears to be answering questions appropriately during this HPI. Patient voices no other complaints or concerns at this time. Portions of this note were created with voice recognition technology. There may be grammatical, spelling, punctuation or sound alike errors Timing/Duration: today Severity: moderate Modifying Factors: Improves With: nothing Associated Symptoms: denies symptoms Allergies/Adverse Reactions: albuterol Allergy (Intermediate, Verified 09/28/23 15:12) Swelling of Tongue and Lips propranolol [From Inderal LA] Allergy (Intermediate, Verified 09/28/23 15:12) red face and ears levofloxacin [From Levaquin] Allergy (Unknown, Verified 09/28/23 15:12) clonazepam [From Klonopin] Allergy (Verified 09/28/23 15:12) Tightness of Throat tongue swollen dronedarone [From Multaq] Allergy (Verified 09/28/23 18:45) Itching metoclopramide [From Reglan] Allergy (Verified 09/28/23 15:12) propranolol HCl [From Inderal LA] Allergy (Verified 09/28/23 15:12) Swelling of Tongue and Lips red face and ears Sulfa (Sulfonamide Antibiotics) Allergy (Verified 09/28/23 15:12) Swelling of Tongue and Lips throat swell,ears red terfenadine Allergy (Verified 09/28/23 15:12) venom-honey bee [bee venom (honey bee)] Allergy (Verified 09/28/23 15:12) Hives large hives zanamivir [From Relenza Diskhaler] Allergy (Verified 09/28/23 15:12) Swelling of Tongue and Lips throat tightness cilostazol [From Pletal] Adverse Reaction (Severe, Verified 09/28/23 15:12) Swelling of Tongue and Lips ticagrelor [From Brilinta] Adverse Reaction (Severe, Verified 09/28/23 15:12) Swelling of Tongue and Lips Home Medications: Buspirone HCl 5 mg [Buspar 5 mg] 5 mg PO BID 12/02/20 [History] Insulin Glargine [Lantus Insulin] 28 unit SQ QAM 07/06/22 [History] Pregabalin 50 mg [Lyrica 50MG] 50 mg PO HS 07/06/22 [History] Apixaban [Eliquis 5 mg Tablet] 5 mg PO BID 07/16/22 [History] Calcium Carbonate 750 mg [Tums EX 750 MG] 2 tab PO BID 08/31/22 [History] Ferrous Sulfate 325 mg [Feosol 325 mg] 325 mg PO BID 08/31/22 [History] Folic Acid 1 mg [Folate 1 mg] 1 mg PO DAILY 08/31/22 [History] Furosemide 40 mg [Lasix 40 MG] 40 mg PO DAILY 11/02/22 [History] Insulin Lispro [Humalog] 18 unit SQ EVENING MEAL 09/28/23 [History] Famotidine 20 mg [Pepcid 20 MG] 20 mg PO BID 10/27/23 [History] Acetaminophen 325 mg [Tylenol 325 mg] 650 mg PO Q6H PRN PRN 11/15/23 [History] Budesonide/Formoterol Fumarate [Budesonide-Formoterol 80-4.5] 2 puffs IH BID PRN 11/15/23 [History] Calcium Carbonate [Oyster Shell Calcium] 500 mg PO TID 11/15/23 [History] Cetirizine HCl 10 mg PO DAILY 11/15/23 [History] Cyanocobalamin 500 Mcg [Vitamin B-12 500 MCG] 1,000 mcg PO DAILY 11/15/23 [History] Dapagliflozin Propanediol [Farxiga] 10 mg PO DAILY 11/15/23 [History] Ergocalciferol (Vitamin D2) [Vitamin D2] 50,000 units PO WEEKLY 11/15/23 [History] Glucagon 1 mg [GlucaGen 1 MG] 1 mg IJ UD 11/15/23 [History] Insulin Glargine [Lantus Insulin] 28 unit SQ BREAKFAST 11/15/23 [History] Insulin Lispro [Humalog] 12 unit SQ BREAKFAST 11/15/23 [History] Insulin Lispro [Humalog] 12 unit SQ DINNER 11/15/23 [History] L. Acidophilus/L.bulgaricus [Floranex Tablet] 1 each PO DAILY 11/15/23 [History] Levothyroxine Sodium 100 Mcg [Synthroid 100 Mcg] 200 mcg PO DAILY 11/15/23 [History] Metoprolol Succinate 100 mg [Toprol Xl 100 MG] 100 mg PO DAILY 11/15/23 [History] Montelukast Sodium 10 mg [Singulair 10 MG] 10 mg PO HS 11/15/23 [History] Tamsulosin HCl 0.4 mg [Flomax 0.4 MG] 0.4 mg PO HS 11/15/23 [History] calcitrioL 0.25 mcg PO BID 11/15/23 [History] Hx Tetanus, Diphtheria Vaccination/Date Given: Yes Hx Influenza Vaccination/Date Given: Yes Hx Pneumococcal Vaccination/Date Given: Yes - Review of Systems Constitutional: No Symptoms, No Fever, No Chills Eyes: No Symptoms Ears, Nose, & Throat: No Symptoms Respiratory: No Symptoms, No Cough, No Dyspnea Cardiac: No Symptoms, No Chest Pain, No Edema, No Syncope Abdominal/Gastrointestinal: No Symptoms, No Abdominal Pain, No Nausea, No Vomiting, No Diarrhea Genitourinary Symptoms: No Symptoms, No Dysuria Musculoskeletal: No Symptoms, No Back Pain, No Neck Pain Skin: No Symptoms, No Rash Neurological: No Symptoms, No Dizziness, No Focal Weakness, No Sensory Changes Psychological: No Symptoms Endocrine: No Symptoms Hematologic/Lymphatic: No Symptoms Immunological/Allergic: No Symptoms All Other Systems: Reviewed and Negative - Past Medical History Pertinent Past Medical History: Yes Neurological History: TIA, Peripheral Neuropathy ENT History: Other Cardiac History: Arrhythmia, Congestive Heart Failure, High Cholesterol, Hypertension, Myocardial Infarction ([place]) Respiratory History: CHF, COPD Endocrine Medical History: Diabetes Type II, Hypothyroidism Musculoskeletal History: No Pertinent History GI Medical History: Other, GERD History: No Pertinent History Psycho-Social History: Anxiety Female Reproductive Disorders: Breast Cancer Other Medical History: right eye retinal scratch November 2020, NEUROPATHY - Past Surgical History Past Surgical History: Yes Neuro Surgical History: No Pertinent History Cardiac: Other Respiratory: No Pertinent History Gastrointestinal: Hernia Repair Genitourinary: No Pertinent History Musculoskeletal: No Pertinent History Female Surgical History: Mastectomy, Lumpectomy Other Surgical History: left mastectomy 1993, right lumpectomy, right thyroid removed, left thyroid removed with goiter, pubic mass, left knee scope, valve replacement - Social History Smoking Status: Never smoker Exposure to second hand smoke: No Drug Use: none Patient Lives Alone: Yes - Nursing Vital Signs Nursing Vital Signs: Initial Vital Signs Temperature 97.4 F 11/15/23 11:17 Pulse Rate 77 11/15/23 11:17 Respiratory Rate 20 11/15/23 11:17 Blood Pressure 169/89 11/15/23 11:17 O2 Sat by Pulse Oximetry 98 11/15/23 11:17 Pain Scale Pain Intensity 0 - Physical Exam General Appearance: no apparent distress, alert Eye Exam: PERRL/EOMI, eyes nml inspection Ears, Nose, Throat Exam: normal ENT inspection, TMs normal, pharynx normal, moist mucous membranes Neck Exam: normal inspection, non-tender, supple, full range of motion Respiratory Exam: normal breath sounds, lungs clear, airway intact, No respiratory distress Cardiovascular Exam: regular rate/rhythm, normal heart sounds, normal peripheral pulses Gastrointestinal/Abdomen Exam: soft, normal bowel sounds, No tenderness, No mass Back Exam: normal inspection, normal range of motion, No CVA tenderness, No vertebral tenderness Extremity Exam: normal inspection, normal range of motion, pelvis stable Neurologic Exam: alert, oriented x 3, cooperative, normal mood/affect, sensation nml, No motor deficits Skin Exam: normal color, warm, dry, No rash Lymphatic Exam: No adenopathy SpO2 Interpretation: normal SpO2: 98 O2 Delivery: Room Air - Course Nursing assessment & vital signs reviewed: Yes EKG Interpreted by Me: RATE (76), Sinus Rhythm, NORMAL AXIS, NORMAL INTERVALS (LVH) - CT Exams Head CT Interpretation: Tele-radiologist Report (Stable nonacute senile brain) Ordered Tests: Active Orders 24 hr Category Date Time Status Bedrest ROUTINE Activity 11/15/23 16:08 Active Call Admit Doctor for Orders ON ADMISSION Care 11/15/23 16:08 Active Instructional Specialist ROUTINE Care 11/15/23 16:08 Active Instructional Specialist STAT Care 11/15/23 11:20 Completed Code Status Order ROUTINE Care 11/15/23 16:08 Active EKG-ER Only STAT Care 11/15/23 11:19 Completed IV Insertion STAT Care 11/15/23 11:19 Completed Neuro Checks Q4H Care 11/15/23 16:[address] in Observation ROUTINE Care 11/15/23 16:08 Active Pulse Oximetry (ED) STAT Care 11/15/23 11:19 Completed Telemetry q6h Care 11/15/23 16:08 Active Consistent Carbohydrate Diet 1800 Calorie Diet 11/15/23 Dinner Active HEAD WITHOUT CONTRAST [CT] Stat Exams 11/15/23 11:19 Completed CBC W DIFF Stat Lab 11/15/23 11:46 Completed CMP Stat Lab 11/15/23 11:46 Completed CULTURE,URINE Stat Lab 11/15/23 13:50 Received TROPONIN Q4H Lab 11/15/23 11:46 Completed TROPONIN Q4H Lab 11/15/23 14:40 Completed UA W/RFX UR CULTURE Stat Lab 11/15/23 13:50 Completed Pulse Oximetry CONTINUOUS RT 11/15/23 16:08 Completed Medication Summary Generic Name Dose Route Start Last Admin Trade Name Freq PRN Reason Stop Dose Admin Acetaminophen 650 mg 11/15/23 17:03 Acetaminophen 325 Mg Tablet PO 12/15/23 17:02 Q4H PRN PRN PAIN, FEVER, HEADACHE Amlodipine Besylate 5 mg 11/15/23 23:25 11/15/23 23:32 Amlodipine Besylate 5 Mg Tablet PO 12/15/23 23:24 5 mg DAILY RAMON Administration Buspirone HCl 5 mg 11/15/23 22:00 11/15/23 22:43 Buspirone Hcl 5 Mg Tablet PO 12/15/23 21:59 5 mg BID RAMON Administration Methylprednisolone Sodium 0 mg 11/16/23 10:00 Succinate 40 mg/ Sterile Water IV 12/16/23 09:59 1 ml DAILY RAMON Cyanocobalamin 1,000 mcg 11/16/23 10:00 Cyanocobalamin 500 Mcg Tablet PO 12/16/23 09:59 DAILY RAMON Ferrous Sulfate 325 mg 11/15/23 22:00 11/15/23 22:43 Ferrous Sulfate 325 Mg Tablet PO 12/15/23 21:59 325 mg BID RAMON Administration Folic Acid 1 mg 11/16/23 10:00 Folic Acid 1 Mg Tablet PO 12/16/23 09:59 DAILY RAMON Hydralazine HCl 25 mg 11/15/23 23:26 Hydralazine Hcl 25 Mg Tablet PO 12/15/23 23:25 Q6H PRN PRN systolic greater than 170 Sodium Chloride 1,000 mls @ 75 mls/hr 11/15/23 17:15 Sodium Chloride 0.9% 1000 Ml IV 12/15/23 17:14 .[id number] [facility] Insulin Glargine 15 unit 11/16/23 10:00 Insulin Glargine 1 Unit SQ 12/16/23 09:59 QAM [facility] Insulin Human Lispro 0 unit 11/15/23 17:03 Insulin Lispro 1 Unit SQ 12/15/23 17:02 UD PRN HYPERGLYCEMIA Levothyroxine Sodium 200 mcg 11/16/23 10:00 Levothyroxine Sodium 100 Mcg Tablet PO 12/16/23 09:59 DAILY [facility] Metoprolol Succinate 100 mg 11/16/23 10:00 Metoprolol Succinate 100 Mg Tablet.Sa PO 12/16/23 09:59 DAILY [facility] Montelukast Sodium 10 mg 11/15/23 22:00 11/15/23 22:43 Montelukast Sodium 10 Mg Tablet PO 12/15/23 21:59 10 mg HS [facility] Administration Non-Formulary Medication 10 mg 11/16/23 10:00 Cetirizine Hcl [Cetirizine Hcl] PO 12/16/23 09:59 DAILY [facility] Non-Formulary Medication 5 mg 11/15/23 22:00 11/15/23 22:43 Apixaban [Eliquis 5 Mg Tablet] PO 12/15/23 21:59 5 mg BID [facility] Administration Non-Formulary Medication 1 each 11/16/23 10:00 L. Acidophilus/L.Bulgaricus [Floranex Tablet] PO 12/16/23 09:59 DAILY [facility] Non-Formulary Medication 8 unit 11/16/23 08:00 Insulin Lispro SQ 12/16/23 07:59 BREAKFAST [facility] Non-Formulary Medication 8 unit 11/16/23 17:00 Insulin Lispro SQ 12/16/23 16:59 DINNER RAMON Non-Formulary Medication 8 unit 11/16/23 18:00 Insulin Lispro SQ 12/16/23 17:59 EVENING MEAL RAMON Ondansetron HCl 4 mg 11/15/23 17:03 Ondansetron Hcl 4 Mg/2 Ml Vial IV 12/15/23 17:02 Q6H PRN PRN NAUSEA/VOMITING Pantoprazole Sodium 40 mg 11/16/23 10:00 Protonix (Pantoprazole) 40 Mg Tablet PO 12/16/23 09:59 DAILY [facility]ON Pregabalin 50 mg 11/15/23 22:00 11/15/23 22:43 Pregabalin 50 Mg Capsule PO 12/15/23 21:59 50 mg HS RAMON Administration Fluticasone/Salmeterol 2 puff 11/15/23 19:00 11/15/23 18:43 Fluticasone/Salmeterol 115/21 60 Puff Aer.W.Adap IH 12/15/23 18:59 2 puff BIDRT RAMON Administration Tamsulosin HCl 0.4 mg 11/15/23 22:00 11/15/23 22:43 Tamsulosin Hcl 0.4 Mg Cap PO 12/15/23 21:59 0.4 mg HS RAMON Administration Discontinued Medications Generic Name Dose Route Start Last Admin Trade Name Freq PRN Reason Stop Dose Admin Apixaban Confirm 11/15/23 22:40 Apixaban 2.5 Mg Tablet Administered 11/15/23 22:41 Dose 5 mg .ROUTE .STK-MED ONE Methylprednisolone Sodium 0 mg 11/15/23 17:03 11/15/23 18:37 Succinate 40 mg/ Sterile Water IV 11/15/23 17:04 40 mg 1 ml STAT STA Administration Sodium Chloride 1,000 mls @ 100 mls/hr 11/15/23 15:45 11/15/23 15:48 Sodium Chloride 0.9% 1000 Ml IV 12/15/23 15:44 100 mls/hr .Q10H RAMON Administration Sodium Chloride Confirm 11/15/23 15:45 Sodium Chloride 0.9% 1000 Ml Administered 11/15/23 15:46 Dose 1,000 mls @ ud .ROUTE .STK-MED ONE Insulin Glargine 28 unit 11/16/23 08:00 Insulin Glargine 1 Unit SQ 12/16/23 07:59 BREAKFAST [facility] Insulin Glargine 28 unit 11/16/23 10:00 Insulin Glargine 1 Unit SQ 12/16/23 09:59 QAM [facility] Non-Formulary Medication 12 unit 11/16/23 08:00 Insulin Lispro SQ 12/16/23 07:59 BREAKFAST [facility] Non-Formulary Medication 12 unit 11/16/23 17:00 Insulin Lispro SQ 12/16/23 16:59 DINNER [facility] Non-Formulary Medication 18 unit 11/16/23 18:00 Insulin Lispro SQ 12/16/23 17:59 EVENING MEAL [facility] Lab/Rad Data: Laboratory Result Diagrams 11/15/23 11:46 11/15/23 11:46 Laboratory Results 11/15/23 11/15/23 11/15/23 Range/Units 14:40 13:50 11:46 WBC (4.0-10.5) x10^3/uL RBC (4.1-5.4) x10^6/uL Hgb (12.0-16.0) g/dL Hct (35-47) % MCV (78-100) fL MCH (26-32) pg MCHC (32-36) g/dL RDW (11.5-14.0) % Plt Count (150-450) x10^3/uL MPV (7.5-11.0) fL Gran % (36.0-66.0) % Immature Gran % (Auto) (0.00-0.4) % Nucleat RBC Rel Count (0.00-0.1) % Eos # (Auto) (0-0.5) x10^3/uL Immature Gran # (Auto) (0.00-0.03) x10^3u/L Absolute Lymphs (auto) (1.0-4.6) x10^3/uL Absolute Monos (auto) (0.0-1.3) x10^3/uL Absolute Nucleated RBC (0.00-0.01) x10^3u/L Lymphocytes % (24.0-44.0) % Monocytes % (0.0-12.0) % Eosinophils % (0.00-5.0) % Basophils % (0.0-0.4) % Absolute Granulocytes (1.4-6.9) x10^3/uL Basophils # (0-0.4) x10^3/uL Sodium (135-145) mmol/L Potassium (3.5-5.1) mmol/L Chloride (98-107) mmol/L Carbon Dioxide (22-30) mmol/L Anion Gap (5-15) MEQ/L BUN (7-17) mg/dL Creatinine (0.52-1.04) mg/dL Estimated GFR ML/MIN Glucose (74-106) mg/dL Calcium (8.4-10.2) mg/dL Phosphorus (2.5-4.5) mg/dL Magnesium (1.6-2.3) mg/dL Total Bilirubin (0.2-1.3) mg/dL AST (14-36) U/L ALT (0-35) U/L Alkaline Phosphatase (38-126) U/L Troponin I 0.075 H* 0.083 H* (0.000-0.033) ng/mL Serum Total Protein (6.3-8.2) g/dL Albumin (3.5-5.0) g/dL 25-OH Vitamin D Total (30-100) ng/mL Urine Color Yellow (Yellow) Urine Appearance Clear (Clear) Urine pH 6.5 (4.6-8.0) Ur Specific [place] 1.015 (1.005-1.030) Urine Protein 100 A (Negative) Urine Glucose (UA) >=1000 A (Negative) mg/dL Urine Ketones Negative (Negative) Urine Blood Negative (Negative) Urine Nitrite Negative (Negative) Urine Bilirubin Negative (Negative) Urine Urobilinogen 0.2 (0.2) mg/dL Ur Leukocyte Esterase Negative (Negative) U Hyaline Cast (Auto) NONE SEEN (0-2) /LPF Urine Microscopic RBC 0-2 (0-5) /HPF Urine Microscopic WBC 3-5 (0-5) /HPF Ur Epithelial Cells None Seen (None Seen) /HPF Urine Bacteria Many A (None Seen) /HPF Urine Culture Reflexed YES (NO) 11/15/23 11/15/23 11/15/23 Range/Units 11:46 11:46 11:30 WBC 10.4 (4.0-10.5) x10^3/uL RBC 4.37 (4.1-5.4) x10^6/uL Hgb 13.1 (12.0-16.0) g/dL Hct 39.4 (35-47) % MCV 90.2 (78-100) fL MCH 30.0 (26-32) pg MCHC 33.2 (32-36) g/dL RDW 13.4 (11.5-14.0) % Plt Count 296 (150-450) x10^3/uL MPV 12.3 H (7.5-11.0) fL Gran % 76.6 H (36.0-66.0) % Immature Gran % (Auto) 0.4 (0.00-0.4) % Nucleat RBC Rel Count 0.0 (0.00-0.1) % Eos # (Auto) 0.13 (0-0.5) x10^3/uL Immature Gran # (Auto) 0.04 H (0.00-0.03) x10^3u/L Absolute Lymphs (auto) 1.25 (1.0-4.6) x10^3/uL Absolute Monos (auto) 0.93 (0.0-1.3) x10^3/uL Absolute Nucleated RBC 0.00 (0.00-0.01) x10^3u/L Lymphocytes % 12.1 L (24.0-44.0) % Monocytes % 9.0 (0.0-12.0) % Eosinophils % 1.3 (0.00-5.0) % Basophils % 0.6 (0.0-0.4) % Absolute Granulocytes 7.94 H (1.4-6.9) x10^3/uL Basophils # 0.06 (0-0.4) x10^3/uL Sodium 138 (135-145) mmol/L Potassium 3.8 (3.5-5.1) mmol/L Chloride 95 L (98-107) mmol/L Carbon Dioxide 31 H (22-30) mmol/L Anion Gap 16.0 H (5-15) MEQ/L BUN 43 H (7-17) mg/dL Creatinine 2.90 H (0.52-1.04) mg/dL Estimated GFR 16.1 ML/MIN Glucose 198 H (74-106) mg/dL Calcium 13.8 H* (8.4-10.2) mg/dL Phosphorus (2.5-4.5) mg/dL Magnesium (1.6-2.3) mg/dL Total Bilirubin 0.60 (0.2-1.3) mg/dL AST 29 (14-36) U/L ALT 21 (0-35) U/L Alkaline Phosphatase 71 (38-126) U/L Troponin I (0.000-0.033) ng/mL Serum Total Protein 8.3 H (6.3-8.2) g/dL Albumin 4.3 (3.5-5.0) g/dL 25-OH Vitamin D Total 24.1 L (30-100) ng/mL Urine Color (Yellow) Urine Appearance (Clear) Urine pH (4.6-8.0) Ur Specific [place] (1.005-1.030) Urine Protein (Negative) Urine Glucose (UA) (Negative) mg/dL Urine Ketones (Negative) Urine Blood (Negative) Urine Nitrite (Negative) Urine Bilirubin (Negative) Urine Urobilinogen (0.2) mg/dL Ur Leukocyte Esterase (Negative) U Hyaline Cast (Auto) (0-2) /LPF Urine Microscopic RBC (0-5) /HPF Urine Microscopic WBC (0-5) /HPF Ur Epithelial Cells (None Seen) /HPF Urine Bacteria (None Seen) /HPF Urine Culture Reflexed (NO) 11/15/23 Range/Units 11:30 WBC (4.0-10.5) x10^3/uL RBC (4.1-5.4) x10^6/uL Hgb (12.0-16.0) g/dL Hct (35-47) % MCV (78-100) fL MCH (26-32) pg MCHC (32-36) g/dL RDW (11.5-14.0) % Plt Count (150-450) x10^3/uL MPV (7.5-11.0) fL Gran % (36.0-66.0) % Immature Gran % (Auto) (0.00-0.4) % Nucleat RBC Rel Count (0.00-0.1) % Eos # (Auto) (0-0.5) x10^3/uL Immature Gran # (Auto) (0.00-0.03) x10^3u/L Absolute Lymphs (auto) (1.0-4.6) x10^3/uL Absolute Monos (auto) (0.0-1.3) x10^3/uL Absolute Nucleated RBC (0.00-0.01) x10^3u/L Lymphocytes % (24.0-44.0) % Monocytes % (0.0-12.0) % Eosinophils % (0.00-5.0) % Basophils % (0.0-0.4) % Absolute Granulocytes (1.4-6.9) x10^3/uL Basophils # (0-0.4) x10^3/uL Sodium (135-145) mmol/L Potassium (3.5-5.1) mmol/L Chloride (98-107) mmol/L Carbon Dioxide (22-30) mmol/L Anion Gap (5-15) MEQ/L BUN (7-17) mg/dL Creatinine (0.52-1.04) mg/dL Estimated GFR ML/MIN Glucose (74-106) mg/dL Calcium (8.4-10.2) mg/dL Phosphorus 5.1 H (2.5-4.5) mg/dL Magnesium 2.1 (1.6-2.3) mg/dL Total Bilirubin (0.2-1.3) mg/dL AST (14-36) U/L ALT (0-35) U/L Alkaline Phosphatase (38-126) U/L Troponin I (0.000-0.033) ng/mL Serum Total Protein (6.3-8.2) g/dL Albumin (3.5-5.0) g/dL 25-OH Vitamin D Total (30-100) ng/mL Urine Color (Yellow) Urine Appearance (Clear) Urine pH (4.6-8.0) Ur Specific [place] (1.005-1.030) Urine Protein (Negative) Urine Glucose (UA) (Negative) mg/dL Urine Ketones (Negative) Urine Blood (Negative) Urine Nitrite (Negative) Urine Bilirubin (Negative) Urine Urobilinogen (0.2) mg/dL Ur Leukocyte Esterase (Negative) U Hyaline Cast (Auto) (0-2) /LPF Urine Microscopic RBC (0-5) /HPF Urine Microscopic WBC (0-5) /HPF Ur Epithelial Cells (None Seen) /HPF Urine Bacteria (None Seen) /HPF Urine Culture Reflexed (NO) - Progress Progress: improved Progress Note: Case discussed with Dr. Roblero at 3:46 PM. Accepts admission to [facility]. Plan of care discussed with patient. She agrees to admission to [facility] for further evaluation and treatment. Portions of this note were created with voice recognition technology. There may be grammatical, spelling, punctuation or sound alike errors 11/15/23 15:46 78-year-old female presents to our ED from [facility] via EMS for evaluation of some confusion. Physical exam shows no focal or lateralizing symptoms. Patient is on a blood thinner. CT head shows no acute findings. Patient advises that she has not been eating very well. Workup reveals acute renal injury. IV fluids infusing. Patient's creatinine today is 2.90. Patient's last creatinine a month ago was 1.58. Vitals are stable. Initial troponin elevated. However troponin downtrending. Patient has some chest discomfort but said since minimal. No ischemic changes on today's EKG. Vital stable. Will admit for further evaluation and treatment. Portions of this note were created with voice recognition technology. There may be grammatical, spelling, punctuation or sound alike errors Complexity of problem addressed is moderate acute complicated no critical care time Complex of data reviewed and analyzed is extensive. Test ordered test reviewed results analyzed and correlated clinically with history and physical examination. Management discussed with hospitalist who accepts admission to observation. Risk of complication or risk morbidity/mortality of patient management is high. Patient requires hospitalization for further evaluation and treatment. Vital stable. Time spent admit patient approximately 20 minutes. Plan of care established for shared decision making. No social determinants of health present impede follow-up. Portions of this note were created with voice recognition technology. There may be grammatical, spelling, punctuation or sound alike errors 11/15/23 15:49 11/16/23 01:29 11/16/23 01:30 Counseled pt/family regarding: lab results, diagnosis, rad results - Departure Departure Disposition: Observation Clinical Impression: Anorexia, TIM (acute kidney injury), Elevated troponin, Generalized weakness Condition: Stable Critical Care Time: No
[2023-11-15 11:47] LABS: Absolute Neutrophil Ct (ANC) 7.94 x10^3/uL (1.4-6.9); BASOPHIL % 0.6 % (0.0-0.4); Basophil (Absolute #) 0.06 x10^3/uL (0-0.4); Eosinophil % 1.3 % (0.00-5.0); Eosinophil (Absolute #) 0.13 x10^3/uL (0-0.5); Hematocrit 39.4 % (35-47); Hemoglobin 13.1 g/dL (12.0-16.0); IMMATURE GRAN # 0.04 x10^3u/L (0.00-0.03); IMMATURE GRAN % 0.4 % (0.00-0.4); Lymphocyte (Absolute #) 1.25 x10^3/uL (1.0-4.6); Lymphocytes % 12.1 % (24.0-44.0); Mean Cell Volume 90.2 fL (78-100); Mean Corpuscular Hgb Concent. 33.2 g/dL (32-36); Mean Platelet Volume 12.3 fL (7.5-11.0); Monocyte (Absolute #) 0.93 x10^3/uL (0.0-1.3); Neutrophil % 76.6 % (36.0-66.0); Platelet Count 296 x10^3/uL (150-450); Red Blood Count 4.37 x10^6/uL (4.1-5.4); Red Cell Distribution Width 13.4 % (11.5-14.0); White Blood Count 10.4 x10^3/uL (4.0-10.5)
[2023-11-15 12:01] LABS: ALBUMIN 4.3 g/dL (3.5-5.0); BILIRUBIN,TOTAL 0.6 mg/dL (0.2-1.3); Creatinine 1 2.9 mg/dL (0.52-1.04); EST GLOMERULAR FILTRATION RATE 16.1 ML/MIN; Potassium 3.8 mmol/L (3.5-5.1); Total Protein 8.3 g/dL (6.3-8.2)
[2023-11-15 12:09] LABS: Calcium 13.8 mg/dL (8.4-10.2)
--- NOTE | 2023-11-15 12:25 | XRAY ---
Indication: Confusion. Multiple contiguous axial images obtained of the head without contrast. Comparison: November 01, 2022 Again age-appropriate global atrophy, mild periventricular degenerative micro-ischemia bilaterally, and remote lacunar infarcts left basal ganglia/right external capsule. No acute intracranial hemorrhage, abnormal extra-axial fluid collection, or mass effect. Fourth ventricle is midline without hydrocephalus. Bony calvarium intact. Visualized paranasal sinuses and mastoid air cells are clear. Impression: Stable nonacute senile brain with remote lacunar infarcts.
[2023-11-15 14:54] LABS: Appearance Clear (Clear); Bacteria Many /HPF (None Seen); Bilirubin Negative (Negative); Blood Negative (Negative); Epithelial Cells None Seen /HPF (None Seen); Glucose, Urine >=1000 mg/dL (Negative); Hyaline Casts NONE SEEN /LPF (0-2); Ketones Negative (Negative); Leukocyte Esterase Negative (Negative); Nitrite Negative (Negative); Ph 6.5 (4.6-8.0); Protein,Urine Dip 100 (Negative); RBC 0-2 /HPF (0-5); Specific Gravity 1.015 (1.005-1.030); Urobilinogen 0.2 mg/dL (0.2)
[2023-11-15 14:55] LABS: ADD URINE CULTURE? YES (NO)
[2023-11-15] MEDS ORDERED: Sodium Chloride 0.9% 1000 ML 1,000 ML ONE (15:45)
[2023-11-15] MEDS: Sodium Chloride 0.9% 1000 ML 1,000 ML IV SCH (15:48)
--- NOTE | 2023-11-15 16:50 | PCM.HP ---
History of Present Illness - Chief Complaint Chief Complaint: Dehydration, anorexia, acute renal injury, elevated troponin Date: 11/15/23 History of Present Illness: is a 78 year old female with a PMHX of gastroesophageal reflux disease, insulin-dependent diabetes, atrial fibrillation on Eliquis, TIAs, peripheral neuropathy, CHF, COPD, hyperlipidemia, hypertension and hypothyroidism who presented to ED 11/15/23 from [facility] with confusion, poor appetite, urinary hesitancy, and dysuria. Patient is A&O x 4 during interview. In ED, patient hypertensive. CT head demonstrating nonacute senile brain with remote lacunar infarcts. Lab findings remarkable for TIM with creat at 2.90, Gap 16.0, Calcium 13.8, protein at 8.3, trops 0.075<0.083. Urinalysis with elevated protein and glucose. - Review of Systems Constitutional: No Symptoms Eyes: No Symptoms Ears, Nose, & Throat: No Symptoms Respiratory: No Symptoms Cardiac: No Symptoms Abdominal/Gastrointestinal: Constipation Genitourinary Symptoms: Dysuria, Hesitancy Musculoskeletal: No Symptoms Skin: No Symptoms Neurological: No Symptoms Psychological: No Symptoms Endocrine: No Symptoms Hematologic/Lymphatic: No Symptoms Immunological/Allergic: No Symptoms Medications & Allergies Home Medications: Home Medication List Buspirone HCl 5 mg [Buspar 5 mg] 5 mg PO BID 12/02/20 [History Confirmed 10/27/23] Insulin Glargine [Lantus Insulin] 28 unit SQ QAM 07/06/22 [History Confirmed 10/27/23] Pregabalin 50 mg [Lyrica 50MG] 50 mg PO HS 07/06/22 [History Confirmed 10/27/23] Apixaban [Eliquis 5 mg Tablet] 5 mg PO BID 07/16/22 [History Confirmed 10/27/23] Aspirin EC 81 mg [Ecotrin 81 mg] 81 mg PO DAILY 08/31/22 [History Confirmed 10/27/23] Calcium Carbonate 750 mg [Tums EX 750 MG] 2 tab PO BID 08/31/22 [History Confirmed 10/27/23] Ferrous Sulfate 325 mg [Feosol 325 mg] 325 mg PO BID 08/31/22 [History Confirmed 10/27/23] Folic Acid 1 mg [Folate 1 mg] 1 mg PO DAILY 08/31/22 [History Confirmed 10/27/23] Furosemide 40 mg [Lasix 40 MG] 40 mg PO DAILY 11/02/22 [History Confirmed 10/27/23] Insulin Lispro [Humalog] 18 unit SQ DAILY 09/28/23 [History Confirmed 10/27/23] L. Acidophilus/L.bulgaricus [Floranex Tablet] 1 tab PO DAILY 09/28/23 [History Confirmed 10/27/23] Levothyroxine Sodium 100 Mcg [Synthroid 100 Mcg] 200 mcg PO DAILY 09/28/23 [History Confirmed 10/27/23] Diltiazem HCl [Cardizem] 120 mg PO UD 10/27/23 [History Confirmed 10/27/23] Famotidine 20 mg [Pepcid 20 MG] 20 mg PO UD 10/27/23 [History Confirmed 10/27/23] Allergies/Adverse Reactions: Allergies Allergy/AdvReac Type Severity Reaction Status Date / Time albuterol Allergy Intermediate Swelling Verified 09/28/23 15:12 of Tongue and Lips propranolol [From Inderal LA] Allergy Intermediate Verified 09/28/23 15:12 levofloxacin [From Levaquin] Allergy Unknown Verified 09/28/23 15:12 clonazepam [From Klonopin] Allergy Tightness Verified 09/28/23 15:12 of Throat dronedarone [From Multaq] Allergy Itching Verified 09/28/23 18:45 metoclopramide [From Reglan] Allergy Verified 09/28/23 15:12 propranolol HCl Allergy Swelling Verified 09/28/23 15:12 [From Inderal LA] of Tongue and Lips Sulfa (Sulfonamide Allergy Swelling Verified 09/28/23 15:12 Antibiotics) of Tongue and Lips terfenadine Allergy Verified 09/28/23 15:12 venom-honey bee Allergy Hives Verified 09/28/23 15:12 [bee venom (honey bee)] zanamivir Allergy Swelling Verified 09/28/23 15:12 [From Relenza Diskhaler] of Tongue and Lips cilostazol [From Pletal] AdvReac Severe Swelling Verified 09/28/23 15:12 of Tongue and Lips ticagrelor [From Brilinta] AdvReac Severe Swelling Verified 09/28/23 15:12 of Tongue and Lips - Past Medical History Past Medical History: Yes Neurological History: TIA, Peripheral Neuropathy ENT History: Other Cardiac History: Arrhythmia, Congestive Heart Failure, High Cholesterol, Hypertension, Myocardial Infarction ([place]) Respiratory History: CHF, COPD Endocrine Medical History: Diabetes Type II, Hypothyroidism Musculoskelatal History: No Pertinent History GI Medical History: Other, GERD History: No Pertinent History Pyscho-Social History: Anxiety Reproductive Disorders: Breast Cancer Comment: right eye retinal scratch November 2020, NEUROPATHY - Past Surgical History Past Surgical History: Yes Neuro Surgical History: No Pertinent History Cardiac History: Other Respiratory Surgery: No Pertinent History GI Surgical History: Hernia Repair Genitourinary Surgical Hx: No Pertinent History Musculskeletal Surgical Hx: No Pertinent History Female Surgical History: Mastectomy, Lumpectomy Other Surgical History: left mastectomy 1993, right lumpectomy, right thyroid removed, left thyroid removed with goiter, pubic mass, left knee scope, valve replacement - Social History Smoking Status: Never smoker Exposure to second hand smoke: No Alcohol: None Drug Use: none - Social Determinants of Health Will the patient participate in the screening: Yes Do you worry about a steady place to live?: No Do you have any problems with any of the following?: No known problems In the past 12 months,have you had to go without utilities?: No Have you or anyone in your house had to go without enough: No Transportation Issues: No Has anyone in your support network made you feel unsafe?: No Does the patient want assistance with any of the above?: No - Physical Exam Vital Signs: Vital Signs - 24 hr Temp Pulse Resp BP BP Pulse Ox 11/15/23 15:51 98 11/15/23 15:50 85 19 94 L 11/15/23 15:40 82 13 11/15/23 15:30 81 9 L 11/15/23 15:20 81 7 L 11/15/23 15:10 82 14 11/15/23 15:00 82 21 148/96 11/15/23 14:50 78 20 11/15/23 14:46 77 20 11/15/23 14:30 78 18 158/133 11/15/23 14:15 78 13 184/86 11/15/23 14:00 77 16 172/103 11/15/23 13:45 78 3 L 198/113 11/15/23 13:30 79 20 196/109 11/15/23 13:15 84 28 H 187/103 11/15/23 13:00 80 20 205/112 98 11/15/23 12:45 81 19 183/107 97 11/15/23 12:30 79 9 L 175/120 97 11/15/23 12:15 76 23 178/101 97 11/15/23 12:14 77 13 96 11/15/23 12:10 77 25 H 178/101 95 11/15/23 12:03 77 17 96 11/15/23 11:52 97 11/15/23 11:50 79 18 96 11/15/23 11:46 97 11/15/23 11:23 169/89 97 11/15/23 11:17 97.4 F 77 20 169/89 98 General Appearance: no apparent distress Neurologic Exam: alert, oriented x 3, cooperative Eye Exam: PERRL/EOMI Ears, Nose, Throat Exam: normal ENT inspection Neck Exam: normal inspection Respiratory Exam: normal breath sounds, lungs clear Cardiovascular Exam: regular rate/rhythm, normal heart sounds Gastrointestinal/Abdomen Exam: soft, normal bowel sounds Pelvic Exam: not done Rectal Exam: deferred Back Exam: normal inspection Extremity Exam: other (edmundo hose BLE) Skin Exam: pale Results - Labs Lab/Micro Results: Lab Results-Last 24 Hours 11/15/23 11/15/23 11/15/23 Range/Units 11:46 11:46 11:46 WBC 10.4 (4.0-10.5) x10^3/uL RBC 4.37 (4.1-5.4) x10^6/uL Hgb 13.1 (12.0-16.0) g/dL Hct 39.4 (35-47) % MCV 90.2 (78-100) fL MCH 30.0 (26-32) pg MCHC 33.2 (32-36) g/dL RDW 13.4 (11.5-14.0) % Plt Count 296 (150-450) x10^3/uL MPV 12.3 H (7.5-11.0) fL Gran % 76.6 H (36.0-66.0) % Immature Gran % (Auto) 0.4 (0.00-0.4) % Nucleat RBC Rel Count 0.0 (0.00-0.1) % Eos # (Auto) 0.13 (0-0.5) x10^3/uL Immature Gran # (Auto) 0.04 H (0.00-0.03) x10^3u/L Absolute Lymphs (auto) 1.25 (1.0-4.6) x10^3/uL Absolute Monos (auto) 0.93 (0.0-1.3) x10^3/uL Absolute Nucleated RBC 0.00 (0.00-0.01) x10^3u/L Lymphocytes % 12.1 L (24.0-44.0) % Monocytes % 9.0 (0.0-12.0) % Eosinophils % 1.3 (0.00-5.0) % Basophils % 0.6 (0.0-0.4) % Absolute Granulocytes 7.94 H (1.4-6.9) x10^3/uL Basophils # 0.06 (0-0.4) x10^3/uL Sodium 138 (135-145) mmol/L Potassium 3.8 (3.5-5.1) mmol/L Chloride 95 L (98-107) mmol/L Carbon Dioxide 31 H (22-30) mmol/L Anion Gap 16.0 H (5-15) MEQ/L BUN 43 H (7-17) mg/dL Creatinine 2.90 H (0.52-1.04) mg/dL Estimated GFR 16.1 ML/MIN Glucose 198 H (74-106) mg/dL Calcium 13.8 H* (8.4-10.2) mg/dL Total Bilirubin 0.60 (0.2-1.3) mg/dL AST 29 (14-36) U/L ALT 21 (0-35) U/L Alkaline Phosphatase 71 (38-126) U/L Troponin I 0.083 H* (0.000-0.033) ng/mL Serum Total Protein 8.3 H (6.3-8.2) g/dL Albumin 4.3 (3.5-5.0) g/dL Urine Color (Yellow) Urine Appearance (Clear) Urine pH (4.6-8.0) Ur Specific [place] (1.005-1.030) Urine Protein (Negative) Urine Glucose (UA) (Negative) mg/dL Urine Ketones (Negative) Urine Blood (Negative) Urine Nitrite (Negative) Urine Bilirubin (Negative) Urine Urobilinogen (0.2) mg/dL Ur Leukocyte Esterase (Negative) U Hyaline Cast (Auto) (0-2) /LPF Urine Microscopic RBC (0-5) /HPF Urine Microscopic WBC (0-5) /HPF Ur Epithelial Cells (None Seen) /HPF Urine Bacteria (None Seen) /HPF Urine Culture Reflexed (NO) 11/15/23 11/15/23 Range/Units 13:50 14:40 WBC (4.0-10.5) x10^3/uL RBC (4.1-5.4) x10^6/uL Hgb (12.0-16.0) g/dL Hct (35-47) % MCV (78-100) fL MCH (26-32) pg MCHC (32-36) g/dL RDW (11.5-14.0) % Plt Count (150-450) x10^3/uL MPV (7.5-11.0) fL Gran % (36.0-66.0) % Immature Gran % (Auto) (0.00-0.4) % Nucleat RBC Rel Count (0.00-0.1) % Eos # (Auto) (0-0.5) x10^3/uL Immature Gran # (Auto) (0.00-0.03) x10^3u/L Absolute Lymphs (auto) (1.0-4.6) x10^3/uL Absolute Monos (auto) (0.0-1.3) x10^3/uL Absolute Nucleated RBC (0.00-0.01) x10^3u/L Lymphocytes % (24.0-44.0) % Monocytes % (0.0-12.0) % Eosinophils % (0.00-5.0) % Basophils % (0.0-0.4) % Absolute Granulocytes (1.4-6.9) x10^3/uL Basophils # (0-0.4) x10^3/uL Sodium (135-145) mmol/L Potassium (3.5-5.1) mmol/L Chloride (98-107) mmol/L Carbon Dioxide (22-30) mmol/L Anion Gap (5-15) MEQ/L BUN (7-17) mg/dL Creatinine (0.52-1.04) mg/dL Estimated GFR ML/MIN Glucose (74-106) mg/dL Calcium (8.4-10.2) mg/dL Total Bilirubin (0.2-1.3) mg/dL AST (14-36) U/L ALT (0-35) U/L Alkaline Phosphatase (38-126) U/L Troponin I 0.075 H* (0.000-0.033) ng/mL Serum Total Protein (6.3-8.2) g/dL Albumin (3.5-5.0) g/dL Urine Color Yellow (Yellow) Urine Appearance Clear (Clear) Urine pH 6.5 (4.6-8.0) Ur Specific [place] 1.015 (1.005-1.030) Urine Protein 100 A (Negative) Urine Glucose (UA) >=1000 A (Negative) mg/dL Urine Ketones Negative (Negative) Urine Blood Negative (Negative) Urine Nitrite Negative (Negative) Urine Bilirubin Negative (Negative) Urine Urobilinogen 0.2 (0.2) mg/dL Ur Leukocyte Esterase Negative (Negative) U Hyaline Cast (Auto) NONE SEEN (0-2) /LPF Urine Microscopic RBC 0-2 (0-5) /HPF Urine Microscopic WBC 3-5 (0-5) /HPF Ur Epithelial Cells None Seen (None Seen) /HPF Urine Bacteria Many A (None Seen) /HPF Urine Culture Reflexed YES (NO) - Radiology Impressions Radiology Exams & Impressions: Radiology Procedures Category Date Time Status HEAD WITHOUT CONTRAST [CT] Stat Exams 11/15/23 11:19 Completed Assessment/Plan (1) Hypercalcemia Current Visit: Yes Status: Acute Assessment & Plan: -IVF -PTH intact/Ionized calcium -renal us -urine calcium -cxr -SPEP, vitamin D, phos -solumedrol 40mg qd -tele Code(s): E83.52 - HYPERCALCEMIA (2) Hyperproteinemia Current Visit: Yes Status: Acute Assessment & Plan: -SPEP -Renal US Code(s): E88.09 - OTH DISORDERS OF PLASMA-PROTEIN METABOLISM, NEC (3) Acute on chronic renal failure Current Visit: No Status: Acute Assessment & Plan: -Follows with Dr. Millan As OP -most recent office visit 3 weeks ago per pt, will consult -baseline creat (1.7-1.8) -Monitor renal/lytes daily -Avoid NSAIDS/DAYTON/ARBs -gentle hydration, monitor for fluid overload Code(s): N17.9 - ACUTE KIDNEY FAILURE, UNSPECIFIED; N18.9 - CHRONIC KIDNEY DISEASE, UNSPECIFIED (4) COPD (chronic obstructive pulmonary disease) Current Visit: Yes Status: Acute Assessment & Plan: -Does not appear to be in exacerbation -RA at baseline -RT eval -Nebs/inh prn -Supplemental oxygen with spo2 goal >88-92% (5) Troponin level elevated Current Visit: Yes Status: Acute Assessment & Plan: -EKG with no ischemic changes -Downtrending, may be secondary to renal insufficiency -No chest pain on exam -Repeat trop/EKG in the a.m. Code(s): R79.89 - OTHER SPECIFIED ABNORMAL FINDINGS OF BLOOD CHEMISTRY (6) Atrial fibrillation Current Visit: No Status: Acute Assessment & Plan: -continue home eliquis -tele Code(s): I48.91 - UNSPECIFIED ATRIAL FIBRILLATION (7) CHF (congestive heart failure) Current Visit: No Status: Acute Assessment & Plan: -Does not appear to be in exacerbation --Most recent ECHO 07/07/22 with EF at 47% IMPRESSION: 1) MILD CONCENTRIC LEFT VENTRICULAR HYPERTROPHY. 2) MILD DECREASE IN LEFT VENTRICULAR SYSTOLIC FUNCTION. 3) MODERATE LEFT ATRIAL DILATATION. 4) MILD MITRAL REGURGITATION. 5) MILD TRICUSPID REGURGITATION. 6) SEVERE PULMONARY HYPERTENSION. -obtain echo -Hold lasix for now in the setting of TIM -continue appropriate home meds Code(s): I50.9 - HEART FAILURE, UNSPECIFIED (8) HTN (hypertension) Current Visit: Yes Status: Acute Assessment & Plan: -continue home medications Code(s): I10 - ESSENTIAL (PRIMARY) HYPERTENSION (9) Hypothyroid Current Visit: Yes Status: Acute Assessment & Plan: -continue home meds VTE: eliquis PPI: protonix Dispo: 2-3 days Code(s): E03.9 - HYPOTHYROIDISM, UNSPECIFIED Telemedicine Encounter - Telemedicine Encounter Telemedicine Encounter: The entirety of this encounter was performed via Telemedicine"
[2023-11-15] MEDS ORDERED: Zofran 4 MG/2 ML VIAL IV PRN (17:03)
[2023-11-15] MEDS ORDERED: TYLENOL 325 MG PO PRN (17:03)
[2023-11-15] MEDS: solu-MEDROL 40 MG, Sterile H2O 10 ml 1 ML IV STA (18:37)
[2023-11-15] MEDS: Advair Hfa 115/21 Common canister IH SCH (18:43)
[2023-11-15 20:23] LABS: MAGNESIUM 2.1 mg/dL (1.6-2.3); PHOSPHOROUS 5.1 mg/dL (2.5-4.5)
[2023-11-15] MEDS ORDERED: ELIQUIS 2.5 MG TABLET ONE (22:40)
[2023-11-15] MEDS: BUSPAR 5 MG PO SCH (22:43)
[2023-11-15] MEDS: Flomax 0.4 MG PO SCH (22:43)
[2023-11-15] MEDS: Singulair 10 MG PO SCH (22:43)
[2023-11-15] MEDS: NON-FORMULARY ITEM (Apixaban*** [Eliquis 5 Mg Tablet***] 5 MG Tablet) PO SCH (22:43)
[2023-11-15] MEDS: FEOSOL 325 MG PO SCH (22:43)
[2023-11-15] MEDS: Lyrica 50MG PO SCH (22:43)
[2023-11-15] MEDS: NORVASC 5 MG PO SCH (23:32)
[2023-11-16] MEDS: Sodium Chloride 0.9% 1000 ML 1,000 ML IV SCH (02:21)
[2023-11-16] MEDS: Apresoline 25 MG TABLET PO PRN (02:29)
[2023-11-16 04:57] LABS: Absolute Neutrophil Ct (ANC) 9.86 x10^3/uL (1.4-6.9); BASOPHIL % 0.3 % (0.0-0.4); Basophil (Absolute #) 0.03 x10^3/uL (0-0.4); Eosinophil (Absolute #) 0 x10^3/uL (0-0.5); Hemoglobin 12.5 g/dL (12.0-16.0); IMMATURE GRAN % 0.9 % (0.00-0.4); Lymphocyte (Absolute #) 0.77 x10^3/uL (1.0-4.6); Mean Cell Volume 89.2 fL (78-100); Mean Corpuscular Hemoglobin 30.1 pg (26-32); Mean Corpuscular Hgb Concent. 33.8 g/dL (32-36); Mean Platelet Volume 12.5 fL (7.5-11.0); Monocyte (Absolute #) 0.24 x10^3/uL (0.0-1.3); Monocytes % 2.2 % (0.0-12.0); Neutrophil % 89.6 % (36.0-66.0); Platelet Count 268 x10^3/uL (150-450); Red Blood Count 4.15 x10^6/uL (4.1-5.4); Red Cell Distribution Width 13.2 % (11.5-14.0)
[2023-11-16 05:44] LABS: ALBUMIN 3.7 g/dL (3.5-5.0); BILIRUBIN,TOTAL 0.4 mg/dL (0.2-1.3); Calcium 11.6 mg/dL (8.4-10.2); Creatinine 1 2.69 mg/dL (0.52-1.04); EST GLOMERULAR FILTRATION RATE 17.6 ML/MIN; MAGNESIUM 1.8 mg/dL (1.6-2.3); PHOSPHOROUS 5.3 mg/dL (2.5-4.5); Potassium 3.5 mmol/L (3.5-5.1); Total Protein 7.4 g/dL (6.3-8.2)
[2023-11-16] MEDS: HUMALOG SQ PRN (07:39)
[2023-11-16] MEDS: HUMALOG SQ SCH ×3 (07:39→16:34)
[2023-11-16] MEDS ORDERED: NON-FORMULARY ITEM (Insulin Lispro 1 UNIT Ml) SQ SCH ×3 (08:00→18:00)
[2023-11-16] MEDS ORDERED: Lantus Insulin SQ SCH ×2 (08:00→10:00)
[2023-11-16] MEDS ORDERED: INSULIN LISPRO 8 UNIT SQ SCH ×3 (08:00→18:00)
--- NOTE | 2023-11-16 08:42 | XRAY ---
Indication: Short of breath. Comparison: September 22, 2023 Portable chest unchanged again hyperinflated with tiny right mid lung calcified granuloma and minimal left midlung subsegmental atelectasis/scarring. Heart not enlarged again with cardiac valve replacement and tortuous descending aorta. Bony thorax intact again with osteopenia and degenerative changes. Impression: Continued nonacute chest with chronic findings.
[2023-11-16] MEDS: SYNTHROID 100 MCG PO SCH (08:45)
[2023-11-16] MEDS: solu-MEDROL 40 MG, Sterile H2O 10 ml 1 ML IV SCH (08:46)
[2023-11-16] MEDS: Lantus Insulin SQ SCH (08:47)
[2023-11-16] MEDS: Acidophilus TABLET PO SCH (08:48)
[2023-11-16] MEDS: Protonix 40MG Tablet PO SCH (08:48)
[2023-11-16] MEDS: CLARITIN 10 MG PO SCH (08:48)
[2023-11-16] MEDS: Vitamin B-12 500 MCG PO SCH (08:48)
[2023-11-16] MEDS: ELIQUIS 2.5 MG TABLET PO SCH (08:48)
[2023-11-16] MEDS: Toprol Xl 100 MG PO SCH (08:48)
[2023-11-16] MEDS: FOLATE 1 MG PO SCH (08:49)
[2023-11-16] MEDS ORDERED: BULGARICUS PO SCH (10:00)
[2023-11-16] MEDS ORDERED: ACIDOPHILUS PO SCH (10:00)
[2023-11-16] MEDS ORDERED: NON-FORMULARY ITEM (Cetirizine Hcl [Cetirizine Hcl] 10 MG Tablet) PO SCH (10:00)
--- NOTE | 2023-11-16 11:37 | PCM.NOTE ---
Date and Time: 11/16/23 1132 Subjective Assessment: is a 78 year old female with a PMHX of gastroesophageal reflux disease, insulin-dependent diabetes, atrial fibrillation on Eliquis, TIAs, peripheral neuropathy, CHF, COPD, hyperlipidemia, hypertension and hypothyroidism who presented to ED 11/15/23 from [facility] with confusion, poor appetite, urinary hesitancy, and dysuria. Admitted with TIM and hypercalcemia. Creat and calcium levels are improving with hydration and steroids. US renal pending. Nephrology consult pending. 11/15: Met and examined patient bedside. She denies any complaints this morning. Reports that she feels back to her baseline. She is A&O x 4 during interview. Denies fever,cough, sob, cp, abdominal pain, PACK, dizziness, N/V/D. - Review of Systems Constitutional: No Symptoms Eyes: No Symptoms Ears, Nose, & Throat: No Symptoms Respiratory: No Symptoms Cardiac: No Symptoms Abdominal/Gastrointestinal: No Symptoms Genitourinary Symptoms: No Symptoms Musculoskeletal: No Symptoms Skin: No Symptoms Neurological: No Symptoms Psychological: No Symptoms Endocrine: No Symptoms Hematologic/Lymphatic: No Symptoms Immunological/Allergic: No Symptoms Objective Exam General Appearance: no apparent distress Neurologic Exam: alert, oriented x 3, cooperative Skin Exam: normal color Eye Exam: PERRL Ears, Nose, Throat Exam: normal ENT inspection Neck Exam: normal inspection Respiratory Exam: normal breath sounds, lungs clear Cardiovascular Exam: regular rate/rhythm, normal heart sounds Gastrointestinal/Abdomen Exam: soft, normal bowel sounds Extremity Exam: normal inspection Back Exam: normal inspection Pelvic Exam: deferred Rectal Exam: deferred Objective Data Vital Signs: Vital Signs - 24 hr Temp Pulse Resp BP BP Pulse Ox 11/16/23 06:57 98.6 F 86 16 136/92 92 L 11/16/23 06:43 86 16 92 L 11/16/23 04:00 85 17 135/74 93 L 11/16/23 01:31 98 11/16/23 00:00 98.2 F 82 18 190/110 94 L 11/15/23 20:00 97.7 F 78 17 142/71 99 11/15/23 18:40 78 17 99 11/15/23 17:54 77 14 95 11/15/23 16:13 98.2 F 94 H 16 177/105 94 L 11/15/23 16:08 77 11/15/23 15:50 85 19 94 L 11/15/23 15:40 82 13 11/15/23 15:30 81 9 L 11/15/23 15:20 81 7 L 11/15/23 15:10 82 14 11/15/23 15:00 82 21 148/96 11/15/23 14:50 78 20 11/15/23 14:46 77 20 11/15/23 14:30 78 18 158/133 11/15/23 14:15 78 13 184/86 11/15/23 14:00 77 16 172/103 11/15/23 13:45 78 3 L 198/113 11/15/23 13:30 79 20 196/109 11/15/23 13:15 84 28 H 187/103 11/15/23 13:00 80 20 205/112 98 11/15/23 12:45 81 19 183/107 97 11/15/23 12:30 79 9 L 175/120 97 11/15/23 12:15 76 23 178/101 97 11/15/23 12:14 77 13 96 11/15/23 12:10 77 25 H 178/101 95 11/15/23 12:03 77 17 96 11/15/23 11:52 97 11/15/23 11:50 79 18 96 11/15/23 11:46 97 Pain Assessment - Last Documented Pain Intensity 0 Intake and Output: Intake & Output 11/13/23 11/14/23 11/15/23 11/16/23 11:59 11:59 11:59 11:59 Intake Total 760 Output Total 550 Balance 210 Weight 84.5 kg 79.6 kg Lab Results: Lab Results-Last 24 Hours 11/15/23 11/15/23 11/15/23 Range/Units 11:30 11:30 11:46 WBC 10.4 (4.0-10.5) x10^3/uL RBC 4.37 (4.1-5.4) x10^6/uL Hgb 13.1 (12.0-16.0) g/dL Hct 39.4 (35-47) % MCV 90.2 (78-100) fL MCH 30.0 (26-32) pg MCHC 33.2 (32-36) g/dL RDW 13.4 (11.5-14.0) % Plt Count 296 (150-450) x10^3/uL MPV 12.3 H (7.5-11.0) fL Gran % 76.6 H (36.0-66.0) % Immature Gran % (Auto) 0.4 (0.00-0.4) % Nucleat RBC Rel Count 0.0 (0.00-0.1) % Eos # (Auto) 0.13 (0-0.5) x10^3/uL Immature Gran # (Auto) 0.04 H (0.00-0.03) x10^3u/L Absolute Lymphs (auto) 1.25 (1.0-4.6) x10^3/uL Absolute Monos (auto) 0.93 (0.0-1.3) x10^3/uL Absolute Nucleated RBC 0.00 (0.00-0.01) x10^3u/L Lymphocytes % 12.1 L (24.0-44.0) % Monocytes % 9.0 (0.0-12.0) % Eosinophils % 1.3 (0.00-5.0) % Basophils % 0.6 (0.0-0.4) % Absolute Granulocytes 7.94 H (1.4-6.9) x10^3/uL Basophils # 0.06 (0-0.4) x10^3/uL Ionized Calcium (1.12-1.32) mmol/L Sodium (135-145) mmol/L Potassium (3.5-5.1) mmol/L Chloride (98-107) mmol/L Carbon Dioxide (22-30) mmol/L Anion Gap (5-15) MEQ/L BUN (7-17) mg/dL Creatinine (0.52-1.04) mg/dL Estimated GFR ML/MIN Glucose (74-106) mg/dL POC Glucometer (74 to 106) mg/dL Calcium (8.4-10.2) mg/dL Phosphorus 5.1 H (2.5-4.5) mg/dL Magnesium 2.1 (1.6-2.3) mg/dL Total Bilirubin (0.2-1.3) mg/dL AST (14-36) U/L ALT (0-35) U/L Alkaline Phosphatase (38-126) U/L Troponin I (0.000-0.033) ng/mL Serum Total Protein (6.3-8.2) g/dL Albumin (3.5-5.0) g/dL 25-OH Vitamin D Total 24.1 L (30-100) ng/mL Urine Color (Yellow) Urine Appearance (Clear) Urine pH (4.6-8.0) Ur Specific [place] (1.005-1.030) Urine Protein (Negative) Urine Glucose (UA) (Negative) mg/dL Urine Ketones (Negative) Urine Blood (Negative) Urine Nitrite (Negative) Urine Bilirubin (Negative) Urine Urobilinogen (0.2) mg/dL Ur Leukocyte Esterase (Negative) U Hyaline Cast (Auto) (0-2) /LPF Urine Microscopic RBC (0-5) /HPF Urine Microscopic WBC (0-5) /HPF Ur Epithelial Cells (None Seen) /HPF Urine Bacteria (None Seen) /HPF Urine Culture Reflexed (NO) 11/15/23 11/15/23 11/15/23 Range/Units 11:46 11:46 13:50 WBC (4.0-10.5) x10^3/uL RBC (4.1-5.4) x10^6/uL Hgb (12.0-16.0) g/dL Hct (35-47) % MCV (78-100) fL MCH (26-32) pg MCHC (32-36) g/dL RDW (11.5-14.0) % Plt Count (150-450) x10^3/uL MPV (7.5-11.0) fL Gran % (36.0-66.0) % Immature Gran % (Auto) (0.00-0.4) % Nucleat RBC Rel Count (0.00-0.1) % Eos # (Auto) (0-0.5) x10^3/uL Immature Gran # (Auto) (0.00-0.03) x10^3u/L Absolute Lymphs (auto) (1.0-4.6) x10^3/uL Absolute Monos (auto) (0.0-1.3) x10^3/uL Absolute Nucleated RBC (0.00-0.01) x10^3u/L Lymphocytes % (24.0-44.0) % Monocytes % (0.0-12.0) % Eosinophils % (0.00-5.0) % Basophils % (0.0-0.4) % Absolute Granulocytes (1.4-6.9) x10^3/uL Basophils # (0-0.4) x10^3/uL Ionized Calcium (1.12-1.32) mmol/L Sodium 138 (135-145) mmol/L Potassium 3.8 (3.5-5.1) mmol/L Chloride 95 L (98-107) mmol/L Carbon Dioxide 31 H (22-30) mmol/L Anion Gap 16.0 H (5-15) MEQ/L BUN 43 H (7-17) mg/dL Creatinine 2.90 H (0.52-1.04) mg/dL Estimated GFR 16.1 ML/MIN Glucose 198 H (74-106) mg/dL POC Glucometer (74 to 106) mg/dL Calcium 13.8 H* (8.4-10.2) mg/dL Phosphorus (2.5-4.5) mg/dL Magnesium (1.6-2.3) mg/dL Total Bilirubin 0.60 (0.2-1.3) mg/dL AST 29 (14-36) U/L ALT 21 (0-35) U/L Alkaline Phosphatase 71 (38-126) U/L Troponin I 0.083 H* (0.000-0.033) ng/mL Serum Total Protein 8.3 H (6.3-8.2) g/dL Albumin 4.3 (3.5-5.0) g/dL 25-OH Vitamin D Total (30-100) ng/mL Urine Color Yellow (Yellow) Urine Appearance Clear (Clear) Urine pH 6.5 (4.6-8.0) Ur Specific [place] 1.015 (1.005-1.030) Urine Protein 100 A (Negative) Urine Glucose (UA) >=1000 A (Negative) mg/dL Urine Ketones Negative (Negative) Urine Blood Negative (Negative) Urine Nitrite Negative (Negative) Urine Bilirubin Negative (Negative) Urine Urobilinogen 0.2 (0.2) mg/dL Ur Leukocyte Esterase Negative (Negative) U Hyaline Cast (Auto) NONE SEEN (0-2) /LPF Urine Microscopic RBC 0-2 (0-5) /HPF Urine Microscopic WBC 3-5 (0-5) /HPF Ur Epithelial Cells None Seen (None Seen) /HPF Urine Bacteria Many A (None Seen) /HPF Urine Culture Reflexed YES (NO) 11/15/23 11/15/23 11/16/23 Range/Units 14:40 20:58 04:45 WBC 11.0 H (4.0-10.5) x10^3/uL RBC 4.15 (4.1-5.4) x10^6/uL Hgb 12.5 (12.0-16.0) g/dL Hct 37.0 (35-47) % MCV 89.2 (78-100) fL MCH 30.1 (26-32) pg MCHC 33.8 (32-36) g/dL RDW 13.2 (11.5-14.0) % Plt Count 268 (150-450) x10^3/uL MPV 12.5 H (7.5-11.0) fL Gran % 89.6 H (36.0-66.0) % Immature Gran % (Auto) 0.9 H (0.00-0.4) % Nucleat RBC Rel Count 0.0 (0.00-0.1) % Eos # (Auto) 0 (0-0.5) x10^3/uL Immature Gran # (Auto) 0.10 H (0.00-0.03) x10^3u/L Absolute Lymphs (auto) 0.77 L (1.0-4.6) x10^3/uL Absolute Monos (auto) 0.24 (0.0-1.3) x10^3/uL Absolute Nucleated RBC 0.00 (0.00-0.01) x10^3u/L Lymphocytes % 7.0 L (24.0-44.0) % Monocytes % 2.2 (0.0-12.0) % Eosinophils % 0.0 (0.00-5.0) % Basophils % 0.3 (0.0-0.4) % Absolute Granulocytes 9.86 H (1.4-6.9) x10^3/uL Basophils # 0.03 (0-0.4) x10^3/uL Ionized Calcium (1.12-1.32) mmol/L Sodium (135-145) mmol/L Potassium (3.5-5.1) mmol/L Chloride (98-107) mmol/L Carbon Dioxide (22-30) mmol/L Anion Gap (5-15) MEQ/L BUN (7-17) mg/dL Creatinine (0.52-1.04) mg/dL Estimated GFR ML/MIN Glucose (74-106) mg/dL POC Glucometer 179 H (74 to 106) mg/dL Calcium (8.4-10.2) mg/dL Phosphorus (2.5-4.5) mg/dL Magnesium (1.6-2.3) mg/dL Total Bilirubin (0.2-1.3) mg/dL AST (14-36) U/L ALT (0-35) U/L Alkaline Phosphatase (38-126) U/L Troponin I 0.075 H* (0.000-0.033) ng/mL Serum Total Protein (6.3-8.2) g/dL Albumin (3.5-5.0) g/dL 25-OH Vitamin D Total (30-100) ng/mL Urine Color (Yellow) Urine Appearance (Clear) Urine pH (4.6-8.0) Ur Specific [place] (1.005-1.030) Urine Protein (Negative) Urine Glucose (UA) (Negative) mg/dL Urine Ketones (Negative) Urine Blood (Negative) Urine Nitrite (Negative) Urine Bilirubin (Negative) Urine Urobilinogen (0.2) mg/dL Ur Leukocyte Esterase (Negative) U Hyaline Cast (Auto) (0-2) /LPF Urine Microscopic RBC (0-5) /HPF Urine Microscopic WBC (0-5) /HPF Ur Epithelial Cells (None Seen) /HPF Urine Bacteria (None Seen) /HPF Urine Culture Reflexed (NO) 11/16/23 11/16/23 11/16/23 Range/Units 04:45 04:45 07:28 WBC (4.0-10.5) x10^3/uL RBC (4.1-5.4) x10^6/uL Hgb (12.0-16.0) g/dL Hct (35-47) % MCV (78-100) fL MCH (26-32) pg MCHC (32-36) g/dL RDW (11.5-14.0) % Plt Count (150-450) x10^3/uL MPV (7.5-11.0) fL Gran % (36.0-66.0) % Immature Gran % (Auto) (0.00-0.4) % Nucleat RBC Rel Count (0.00-0.1) % Eos # (Auto) (0-0.5) x10^3/uL Immature Gran # (Auto) (0.00-0.03) x10^3u/L Absolute Lymphs (auto) (1.0-4.6) x10^3/uL Absolute Monos (auto) (0.0-1.3) x10^3/uL Absolute Nucleated RBC (0.00-0.01) x10^3u/L Lymphocytes % (24.0-44.0) % Monocytes % (0.0-12.0) % Eosinophils % (0.00-5.0) % Basophils % (0.0-0.4) % Absolute Granulocytes (1.4-6.9) x10^3/uL Basophils # (0-0.4) x10^3/uL Ionized Calcium 1.47 H (1.12-1.32) mmol/L Sodium 134 L (135-145) mmol/L Potassium 3.5 (3.5-5.1) mmol/L Chloride 99 (98-107) mmol/L Carbon Dioxide 24 (22-30) mmol/L Anion Gap 15.0 (5-15) MEQ/L BUN 42 H (7-17) mg/dL Creatinine 2.69 H (0.52-1.04) mg/dL Estimated GFR 17.6 ML/MIN Glucose 296 H (74-106) mg/dL POC Glucometer 303 H (74 to 106) mg/dL Calcium 11.6 H D (8.4-10.2) mg/dL Phosphorus 5.3 H (2.5-4.5) mg/dL Magnesium 1.8 (1.6-2.3) mg/dL Total Bilirubin 0.40 (0.2-1.3) mg/dL AST 25 (14-36) U/L ALT 16 (0-35) U/L Alkaline Phosphatase 73 (38-126) U/L Troponin I (0.000-0.033) ng/mL Serum Total Protein 7.4 (6.3-8.2) g/dL Albumin 3.7 (3.5-5.0) g/dL 25-OH Vitamin D Total (30-100) ng/mL Urine Color (Yellow) Urine Appearance (Clear) Urine pH (4.6-8.0) Ur Specific [place] (1.005-1.030) Urine Protein (Negative) Urine Glucose (UA) (Negative) mg/dL Urine Ketones (Negative) Urine Blood (Negative) Urine Nitrite (Negative) Urine Bilirubin (Negative) Urine Urobilinogen (0.2) mg/dL Ur Leukocyte Esterase (Negative) U Hyaline Cast (Auto) (0-2) /LPF Urine Microscopic RBC (0-5) /HPF Urine Microscopic WBC (0-5) /HPF Ur Epithelial Cells (None Seen) /HPF Urine Bacteria (None Seen) /HPF Urine Culture Reflexed (NO) 11/16/23 Range/Units 11:17 WBC (4.0-10.5) x10^3/uL RBC (4.1-5.4) x10^6/uL Hgb (12.0-16.0) g/dL Hct (35-47) % MCV (78-100) fL MCH (26-32) pg MCHC (32-36) g/dL RDW (11.5-14.0) % Plt Count (150-450) x10^3/uL MPV (7.5-11.0) fL Gran % (36.0-66.0) % Immature Gran % (Auto) (0.00-0.4) % Nucleat RBC Rel Count (0.00-0.1) % Eos # (Auto) (0-0.5) x10^3/uL Immature Gran # (Auto) (0.00-0.03) x10^3u/L Absolute Lymphs (auto) (1.0-4.6) x10^3/uL Absolute Monos (auto) (0.0-1.3) x10^3/uL Absolute Nucleated RBC (0.00-0.01) x10^3u/L Lymphocytes % (24.0-44.0) % Monocytes % (0.0-12.0) % Eosinophils % (0.00-5.0) % Basophils % (0.0-0.4) % Absolute Granulocytes (1.4-6.9) x10^3/uL Basophils # (0-0.4) x10^3/uL Ionized Calcium (1.12-1.32) mmol/L Sodium (135-145) mmol/L Potassium (3.5-5.1) mmol/L Chloride (98-107) mmol/L Carbon Dioxide (22-30) mmol/L Anion Gap (5-15) MEQ/L BUN (7-17) mg/dL Creatinine (0.52-1.04) mg/dL Estimated GFR ML/MIN Glucose (74-106) mg/dL POC Glucometer 255 H (74 to 106) mg/dL Calcium (8.4-10.2) mg/dL Phosphorus (2.5-4.5) mg/dL Magnesium (1.6-2.3) mg/dL Total Bilirubin (0.2-1.3) mg/dL AST (14-36) U/L ALT (0-35) U/L Alkaline Phosphatase (38-126) U/L Troponin I (0.000-0.033) ng/mL Serum Total Protein (6.3-8.2) g/dL Albumin (3.5-5.0) g/dL 25-OH Vitamin D Total (30-100) ng/mL Urine Color (Yellow) Urine Appearance (Clear) Urine pH (4.6-8.0) Ur Specific [place] (1.005-1.030) Urine Protein (Negative) Urine Glucose (UA) (Negative) mg/dL Urine Ketones (Negative) Urine Blood (Negative) Urine Nitrite (Negative) Urine Bilirubin (Negative) Urine Urobilinogen (0.2) mg/dL Ur Leukocyte Esterase (Negative) U Hyaline Cast (Auto) (0-2) /LPF Urine Microscopic RBC (0-5) /HPF Urine Microscopic WBC (0-5) /HPF Ur Epithelial Cells (None Seen) /HPF Urine Bacteria (None Seen) /HPF Urine Culture Reflexed (NO) Radiology Exams: Radiology Procedures Category Date Time Status CHEST 1 VIEW (PORTABLE) Routine Exams 11/15/23 17:03 Completed ECHO W/2D AND DOPPLER [US] Routine Exams 11/16/23 08:00 Taken HEAD WITHOUT CONTRAST [CT] Stat Exams 11/15/23 11:19 Completed KIDNEY [US] Routine Exams 11/17/23 08:00 Ordered Assessment/Plan (1) Hypercalcemia Current Visit: Yes Status: Acute Assessment & Plan: -IVF -PTH intact/Ionized calcium -renal us -urine calcium -cxr -SPEP, vitamin D, phos -solumedrol 40mg qd -tele 11/15: -Improving now at 11.6<13.8 -Ionized calcium elevated at 1.47 -Vitamin D low at 24.1, patient is already on vitamin D 26001 weekly for this -Phos is elevated - low phos diet initiated -Plan to continue solumedrol and hydration - monitor for fluid overload -Calcitrol and calcium carbonate home meds held - nephrology consulted Code(s): E83.52 - HYPERCALCEMIA (2) Hyperproteinemia Current Visit: Yes Status: Acute Assessment & Plan: -SPEP -Renal US 11/15: -Renal US pending -Spep pending Code(s): E88.09 - OTH DISORDERS OF PLASMA-PROTEIN METABOLISM, NEC (3) Acute on chronic renal failure Current Visit: No Status: Acute Assessment & Plan: -Follows with Dr. Millan As OP -most recent office visit 3 weeks ago per pt, will consult - pending -baseline creat (1.7-1.8) -today improved at 2.69<2.90 -Monitor renal/lytes daily -Avoid NSAIDS/DAYTON/ARBs -gentle hydration, monitor for fluid overload Code(s): N17.9 - ACUTE KIDNEY FAILURE, UNSPECIFIED; N18.9 - CHRONIC KIDNEY DISEASE, UNSPECIFIED (4) COPD (chronic obstructive pulmonary disease) Current Visit: Yes Status: Acute Assessment & Plan: -Does not appear to be in exacerbation -RA at baseline -RT eval -Nebs/inh prn -Supplemental oxygen with spo2 goal >88-92% (5) Troponin level elevated Current Visit: Yes Status: Acute Assessment & Plan: -EKG with no ischemic changes -Downtrending, may be secondary to renal insufficiency -No chest pain on exam -Repeat trop/EKG in the a.m. Code(s): R79.89 - OTHER SPECIFIED ABNORMAL FINDINGS OF BLOOD CHEMISTRY (6) Atrial fibrillation Current Visit: No Status: Acute Assessment & Plan: -continue home eliquis -tele Code(s): I48.91 - UNSPECIFIED ATRIAL FIBRILLATION (7) CHF (congestive heart failure) Current Visit: No Status: Acute Assessment & Plan: -Does not appear to be in exacerbation --Most recent ECHO 07/07/22 with EF at 47% IMPRESSION: 1) MILD CONCENTRIC LEFT VENTRICULAR HYPERTROPHY. 2) MILD DECREASE IN LEFT VENTRICULAR SYSTOLIC FUNCTION. 3) MODERATE LEFT ATRIAL DILATATION. 4) MILD MITRAL REGURGITATION. 5) MILD TRICUSPID REGURGITATION. 6) SEVERE PULMONARY HYPERTENSION. -obtain echo -Hold lasix for now in the setting of TIM -continue appropriate home meds Code(s): I50.9 - HEART FAILURE, UNSPECIFIED (8) HTN (hypertension) Current Visit: Yes Status: Acute Assessment & Plan: -continue home medications Code(s): I10 - ESSENTIAL (PRIMARY) HYPERTENSION (9) Hypothyroid Current Visit: Yes Status: Acute Assessment & Plan: -continue home meds VTE: eliquis PPI: protonix Dispo: 2-3 days Code(s): E83.52 - HYPERCALCEMIA (2) Hyperproteinemia Current Visit: Yes Status: Acute Code(s): E88.09 - OTH DISORDERS OF PLASMA- PROTEIN METABOLISM, NEC (3) Acute on chronic renal failure Current Visit: No Status: Acute Code(s): N17.9 - ACUTE KIDNEY FAILURE, UNSPECIFIED; N18.9 - CHRONIC KIDNEY DISEASE, UNSPECIFIED (4) COPD (chronic obstructive pulmonary disease) Current Visit: Yes Status: Acute (5) Troponin level elevated Current Visit: Yes Status: Acute Code(s): R79.89 - OTHER SPECIFIED ABNORMAL FINDINGS OF BLOOD CHEMISTRY (6) Atrial fibrillation Current Visit: No Status: Acute Code(s): I48.91 - UNSPECIFIED ATRIAL FIBRILLATION (7) CHF (congestive heart failure) Current Visit: No Status: Acute Code(s): I50.9 - HEART FAILURE, UNSPECIFIED (8) HTN (hypertension) Current Visit: Yes Status: Acute Code(s): I10 - ESSENTIAL (PRIMARY) HYPERTENSION (9) Hypothyroid Current Visit: Yes Status: Acute Code(s): E03.9 - HYPOTHYROIDISM, UNSPECIFIED
[2023-11-16] MEDS ORDERED: HUMALOG SQ SCH ×2 (17:00→18:00)
[2023-11-17 05:18] LABS: Absolute Neutrophil Ct (ANC) 9.47 x10^3/uL (1.4-6.9); BASOPHIL % 0.2 % (0.0-0.4); Basophil (Absolute #) 0.02 x10^3/uL (0-0.4); Eosinophil % 0.3 % (0.00-5.0); Eosinophil (Absolute #) 0.03 x10^3/uL (0-0.5); Hematocrit 34.9 % (35-47); Hemoglobin 11.6 g/dL (12.0-16.0); IMMATURE GRAN # 0.06 x10^3u/L (0.00-0.03); IMMATURE GRAN % 0.5 % (0.00-0.4); Lymphocyte (Absolute #) 1.29 x10^3/uL (1.0-4.6); Lymphocytes % 10.9 % (24.0-44.0); Mean Cell Volume 89.7 fL (78-100); Mean Corpuscular Hemoglobin 29.8 pg (26-32); Mean Corpuscular Hgb Concent. 33.2 g/dL (32-36); Mean Platelet Volume 13.1 fL (7.5-11.0); Monocyte (Absolute #) 0.98 x10^3/uL (0.0-1.3); Monocytes % 8.3 % (0.0-12.0); Neutrophil % 79.8 % (36.0-66.0); Platelet Count 288 x10^3/uL (150-450); Red Blood Count 3.89 x10^6/uL (4.1-5.4); Red Cell Distribution Width 13.7 % (11.5-14.0); White Blood Count 11.9 x10^3/uL (4.0-10.5)
[2023-11-17 08:10] LABS: ALBUMIN 3.5 g/dL (3.5-5.0); ANION GAP 14.7 MEQ/L (5-15); BILIRUBIN,TOTAL 0.2 mg/dL (0.2-1.3); Calcium 9.8 mg/dL (8.4-10.2); Creatinine 1 2.44 mg/dL (0.52-1.04); EST GLOMERULAR FILTRATION RATE 19.8 ML/MIN; Total Protein 6.8 g/dL (6.3-8.2)
[2023-11-17] MEDS: HUMALOG SQ SCH (08:54)
[2023-11-17] MEDS: Klor Con PO SCH (09:01)
--- NOTE | 2023-11-17 11:06 | XRAY ---
Indication: Acute kidney injury. Hyperkalemia. Two-dimensional renal sonogram performed. Comparison: September 29, 2023 Again both kidneys are normal in reniform shape with normal color perfusion. Right kidney measures 10.7 x 4.7 x 5.0 cm and left measures 12.3 x 5.1 x 6.3 cm. there remains a few bilateral renal cysts again largest left upper pole measuring 5.7 x 5.8 x 5.2 cm, previously 6.0 x 5.6 x 5.9 cm. Largest right renal cyst is also upper pole measuring 2.2 x 2.5 x 2.0 cm, previously 2.6 x 2.4 x 2.4 cm. No focal solid renal mass or hydronephrosis. Cortical medullary differentiation preserved. Normally distended urinary bladder grossly unremarkable. Normal bilateral ureteral jets. Prevoid bladder volume is 317 cc. Postvoid volume is 207 cc. Impression: 1. Again bilateral renal cysts, slightly smaller in size. No focal solid renal mass or hydronephrosis. 2. Again large urinary bladder postvoid residual.
[2023-11-17 11:10] LABS: Calcium, Urine 11.8 mg/dL (Not Estab.)
--- NOTE | 2023-11-17 11:24 | PCM.DS ---
Discharge Summary Date of Admission: 11/15/23 16:04 Date of Discharge: 11/17/23 Admitting Physician: YONAS ZABALA MD Consults: Consults on Case 11/15/23 17:11 Consult Nephrology ROUTINE Primary Care Provider: JANNA CHAWLA DO Allergies Allergies albuterol Allergy (Intermediate, Verified 09/28/23 15:12) Swelling of Tongue and Lips propranolol [From Inderal LA] Allergy (Intermediate, Verified 09/28/23 15:12) red face and ears levofloxacin [From Levaquin] Allergy (Unknown, Verified 09/28/23 15:12) clonazepam [From Klonopin] Allergy (Verified 09/28/23 15:12) Tightness of Throat tongue swollen dronedarone [From Multaq] Allergy (Verified 09/28/23 18:45) Itching metoclopramide [From Reglan] Allergy (Verified 09/28/23 15:12) propranolol HCl [From Inderal LA] Allergy (Verified 09/28/23 15:12) Swelling of Tongue and Lips red face and ears Sulfa (Sulfonamide Antibiotics) Allergy (Verified 09/28/23 15:12) Swelling of Tongue and Lips throat swell,ears red terfenadine Allergy (Verified 09/28/23 15:12) venom-honey bee [bee venom (honey bee)] Allergy (Verified 09/28/23 15:12) Hives large hives zanamivir [From Relenza Diskhaler] Allergy (Verified 09/28/23 15:12) Swelling of Tongue and Lips throat tightness cilostazol [From Pletal] Adverse Reaction (Severe, Verified 09/28/23 15:12) Swelling of Tongue and Lips ticagrelor [From Brilinta] Adverse Reaction (Severe, Verified 09/28/23 15:12) Swelling of Tongue and Lips Hospital Summary - Hospital Course Hospital Course: is a 78 year old female with a PMHX of gastroesophageal reflux disease, insulin-dependent diabetes, atrial fibrillation on Eliquis, TIAs, peripheral neuropathy, CHF, COPD, hyperlipidemia, hypertension and hypothyroidism who presented to ED 11/15/23 from [facility] with confusion, poor appetite, urinary hesitancy, and dysuria. Admitted with TIM and hypercalcemia. Creat improving. Calcium levels now WNL. US renal unremarkable. Nephrology consulted, patient clear for discharge, per recommendations, will hold Jardiance, calcitrol, calcium carbonate, and lasix until OP follow up. Patient agreeable to discharge to SNF. If accepted today she is stable for discharge. She will need repeat chemistry labs monitoring electrolytes/renal function. Monty to follow. Discharge Note New Diagnosis: Hypercalcemia/TIM New Medications:none, hold Jardiance, calcitrol, calcium carbonate, and lasix Follow Up: pcp/nephrology Latest Assessment & Plan (1) Hypercalcemia Current Visit: Yes Status: Acute Assessment & Plan: -IVF -PTH intact/Ionized calcium -renal us -urine calcium -cxr -SPEP, vitamin D, phos -solumedrol 40mg qd -tele 11/15: -Improving now at 11.6<13.8 -Ionized calcium elevated at 1.47 -Vitamin D low at 24.1, patient is already on vitamin D 75338 weekly for this -Phos is elevated - low phos diet initiated -Plan to continue solumedrol and hydration - monitor for fluid overload -Calcitrol and calcium carbonate home meds held - nephrology consulted 11/16: -resolved, continue to hold calcitrol/calcium carbonate per nephrology, continue vit D Code(s): E83.52 - HYPERCALCEMIA (2) Hyperproteinemia Current Visit: Yes Status: Acute Assessment & Plan: -SPEP -Renal US 11/15: -Renal US pending -Spep pending 11/16: -Resolved -Renal US unremarkable Code(s): E88.09 - OTH DISORDERS OF PLASMA-PROTEIN METABOLISM, NEC (3) Acute on chronic renal failure Current Visit: No Status: Acute Assessment & Plan: -Follows with Dr. Millan As OP -most recent office visit 3 weeks ago per pt, will consult - pending -baseline creat (1.7-1.8) -today improved at 2.69<2.90 -Monitor renal/lytes daily -Avoid NSAIDS/DAYTON/ARBs -gentle hydration, monitor for fluid overload 11/16: -Cleared for discharge from nephrology standpoint, will follow up as op, creat is improving 2.44<2.69<2.90 - hold jardiance/lasix Code(s): N17.9 - ACUTE KIDNEY FAILURE, UNSPECIFIED; N18.9 - CHRONIC KIDNEY DISEA SE, UNSPECIFIED (4) COPD (chronic obstructive pulmonary disease) Current Visit: Yes Status: Acute Assessment & Plan: -Does not appear to be in exacerbation -RA at baseline -RT eval -Nebs/inh prn -Supplemental oxygen with spo2 goal >88-92% (5) Troponin level elevated Current Visit: Yes Status: Acute Assessment & Plan: -EKG with no ischemic changes -Downtrending, may be secondary to renal insufficiency -No chest pain on exam -Repeat trop/EKG in the a.m. Code(s): R79.89 - OTHER SPECIFIED ABNORMAL FINDINGS OF BLOOD CHEMISTRY (6) Atrial fibrillation Current Visit: No Status: Acute Assessment & Plan: -continue home eliquis -tele Code(s): I48.91 - UNSPECIFIED ATRIAL FIBRILLATION (7) CHF (congestive heart failure) Current Visit: No Status: Acute Assessment & Plan: -Does not appear to be in exacerbation --Most recent ECHO 07/07/22 with EF at 47% IMPRESSION: 1) MILD CONCENTRIC LEFT VENTRICULAR HYPERTROPHY. 2) MILD DECREASE IN LEFT VENTRICULAR SYSTOLIC FUNCTION. 3) MODERATE LEFT ATRIAL DILATATION. 4) MILD MITRAL REGURGITATION. 5) MILD TRICUSPID REGURGITATION. 6) SEVERE PULMONARY HYPERTENSION. -obtain echo -Hold lasix for now in the setting of TIM -continue appropriate home meds Code(s): I50.9 - HEART FAILURE, UNSPECIFIED (8) HTN (hypertension) Current Visit: Yes Status: Acute Assessment & Plan: -continue home medications Code(s): I10 - ESSENTIAL (PRIMARY) HYPERTENSION (9) Hypothyroid Current Visit: Yes Status: Acute Assessment & Plan: -continue home meds I spent 35 minutes [id number] with the patient on the day of discharge performing discharge exam, discussing hospital stay and discharge instructions with patient and caregivers, preparation of discharge records, prescriptions & referral forms and addressing any questions/concerns the patient had as documented above. - Vitals & Intake/Output Vital Signs: Vital Signs Temperature 97.0 F 11/17/23 07:11 Pulse Rate 73 11/17/23 07:11 Respiratory Rate 15 11/17/23 07:11 Blood Pressure 166/86 11/17/23 07:11 O2 Sat by Pulse Oximetry 99 11/17/23 07:11 Intake & Output: Intake & Output 11/14/23 11/15/23 11/16/23 11/17/23 11:59 11:59 11:59 11:59 Intake Total 760 1100 Output Total 550 450 Balance 210 650 Weight 84.5 kg 79.6 kg - Lab Result Diagrams: 11/17/23 04:15 11/17/23 04:15 Lab Results-Last 24 Hrs: Lab Results-Last 24 Hours 11/16/23 11/16/23 11/16/23 Range/Units 11:17 16:20 21:01 WBC (4.0-10.5) x10^3/uL RBC (4.1-5.4) x10^6/uL Hgb (12.0-16.0) g/dL Hct (35-47) % MCV (78-100) fL MCH (26-32) pg MCHC (32-36) g/dL RDW (11.5-14.0) % Plt Count (150-450) x10^3/uL MPV (7.5-11.0) fL Gran % (36.0-66.0) % Immature Gran % (Auto) (0.00-0.4) % Nucleat RBC Rel Count (0.00-0.1) % Eos # (Auto) (0-0.5) x10^3/uL Immature Gran # (Auto) (0.00-0.03) x10^3u/L Absolute Lymphs (auto) (1.0-4.6) x10^3/uL Absolute Monos (auto) (0.0-1.3) x10^3/uL Absolute Nucleated RBC (0.00-0.01) x10^3u/L Lymphocytes % (24.0-44.0) % Monocytes % (0.0-12.0) % Eosinophils % (0.00-5.0) % Basophils % (0.0-0.4) % Absolute Granulocytes (1.4-6.9) x10^3/uL Basophils # (0-0.4) x10^3/uL Sodium (135-145) mmol/L Potassium (3.5-5.1) mmol/L Chloride (98-107) mmol/L Carbon Dioxide (22-30) mmol/L Anion Gap (5-15) MEQ/L BUN (7-17) mg/dL Creatinine (0.52-1.04) mg/dL Estimated GFR ML/MIN Glucose (74-106) mg/dL POC Glucometer 255 H 267 H 359 H (74 to 106) mg/dL Calcium (8.4-10.2) mg/dL Magnesium (1.6-2.3) mg/dL Total Bilirubin (0.2-1.3) mg/dL AST (14-36) U/L ALT (0-35) U/L Alkaline Phosphatase (38-126) U/L Serum Total Protein (6.3-8.2) g/dL Albumin (3.5-5.0) g/dL 11/17/23 11/17/23 11/17/23 Range/Units 04:15 04:15 05:12 WBC 11.9 H (4.0-10.5) x10^3/uL RBC 3.89 L (4.1-5.4) x10^6/uL Hgb 11.6 L (12.0-16.0) g/dL Hct 34.9 L (35-47) % MCV 89.7 (78-100) fL MCH 29.8 (26-32) pg MCHC 33.2 (32-36) g/dL RDW 13.7 (11.5-14.0) % Plt Count 288 (150-450) x10^3/uL MPV 13.1 H (7.5-11.0) fL Gran % 79.8 H (36.0-66.0) % Immature Gran % (Auto) 0.5 H (0.00-0.4) % Nucleat RBC Rel Count 0.0 (0.00-0.1) % Eos # (Auto) 0.03 (0-0.5) x10^3/uL Immature Gran # (Auto) 0.06 H (0.00-0.03) x10^3u/L Absolute Lymphs (auto) 1.29 (1.0-4.6) x10^3/uL Absolute Monos (auto) 0.98 (0.0-1.3) x10^3/uL Absolute Nucleated RBC 0.00 (0.00-0.01) x10^3u/L Lymphocytes % 10.9 L (24.0-44.0) % Monocytes % 8.3 (0.0-12.0) % Eosinophils % 0.3 (0.00-5.0) % Basophils % 0.2 (0.0-0.4) % Absolute Granulocytes 9.47 H (1.4-6.9) x10^3/uL Basophils # 0.02 (0-0.4) x10^3/uL Sodium 137 (135-145) mmol/L Potassium 3.0 L* (3.5-5.1) mmol/L Chloride 104 (98-107) mmol/L Carbon Dioxide 21 L (22-30) mmol/L Anion Gap 14.7 (5-15) MEQ/L BUN 50 H (7-17) mg/dL Creatinine 2.44 H (0.52-1.04) mg/dL Estimated GFR 19.8 ML/MIN Glucose 218 H (74-106) mg/dL POC Glucometer (74 to 106) mg/dL Calcium 9.8 D (8.4-10.2) mg/dL Magnesium 2.0 (1.6-2.3) mg/dL Total Bilirubin 0.20 (0.2-1.3) mg/dL AST 22 (14-36) U/L ALT 16 (0-35) U/L Alkaline Phosphatase 68 (38-126) U/L Serum Total Protein 6.8 (6.3-8.2) g/dL Albumin 3.5 (3.5-5.0) g/dL 11/17/23 Range/Units 06:53 WBC (4.0-10.5) x10^3/uL RBC (4.1-5.4) x10^6/uL Hgb (12.0-16.0) g/dL Hct (35-47) % MCV (78-100) fL MCH (26-32) pg MCHC (32-36) g/dL RDW (11.5-14.0) % Plt Count (150-450) x10^3/uL MPV (7.5-11.0) fL Gran % (36.0-66.0) % Immature Gran % (Auto) (0.00-0.4) % Nucleat RBC Rel Count (0.00-0.1) % Eos # (Auto) (0-0.5) x10^3/uL Immature Gran # (Auto) (0.00-0.03) x10^3u/L Absolute Lymphs (auto) (1.0-4.6) x10^3/uL Absolute Monos (auto) (0.0-1.3) x10^3/uL Absolute Nucleated RBC (0.00-0.01) x10^3u/L Lymphocytes % (24.0-44.0) % Monocytes % (0.0-12.0) % Eosinophils % (0.00-5.0) % Basophils % (0.0-0.4) % Absolute Granulocytes (1.4-6.9) x10^3/uL Basophils # (0-0.4) x10^3/uL Sodium (135-145) mmol/L Potassium (3.5-5.1) mmol/L Chloride (98-107) mmol/L Carbon Dioxide (22-30) mmol/L Anion Gap (5-15) MEQ/L BUN (7-17) mg/dL Creatinine (0.52-1.04) mg/dL Estimated GFR ML/MIN Glucose (74-106) mg/dL POC Glucometer 202 H (74 to 106) mg/dL Calcium (8.4-10.2) mg/dL Magnesium (1.6-2.3) mg/dL Total Bilirubin (0.2-1.3) mg/dL AST (14-36) U/L ALT (0-35) U/L Alkaline Phosphatase (38-126) U/L Serum Total Protein (6.3-8.2) g/dL Albumin (3.5-5.0) g/dL Micro Results-Entire Visit: Microbiology 11/15/23 13:50 Urine Culture - Preliminary Urine, Void <10K NORMAL SKIN JOSHUA PROBABLE SKIN CONTAMINANT Accuchecks Date 11/17/23 Date 11/16/23 Date 11/16/23 Date 11/16/23 Time 07:08 Time 21:00 Time 16:26 Time 11:34 - Radiology Exams Ordered Rad Exams-Entire Visit: Radiology Procedures Category Date Time Status CHEST 1 VIEW (PORTABLE) Routine Exams 11/15/23 17:03 Completed ECHO W/2D AND DOPPLER [US] Routine Exams 11/16/23 08:00 Taken HEAD WITHOUT CONTRAST [CT] Stat Exams 11/15/23 11:19 Completed KIDNEY [US] Routine Exams 11/17/23 08:00 Completed - Procedures and Test Procedures and Tests throughout Hospitalization: Therapy Orders & Screens 11/15/23 17:03 PT Eval & Treat ( Order) ONCE Reason for Eval:: weakness Diagnosis: Dehydration, anorexia, acute renal injury, elevated troponin EKG REPEAT IN AM Comment: Diagnosis: Dehydration, anorexia, acute renal injury, elevated troponin Respiratory Therapy Consult ONCE Comment: Reason For Exam: Diagnosis: Dehydration, anorexia, acute renal injury, elevated troponin 11/15/23 17:53 Respiratory Therapy Assessment DAILY Comment: Diagnosis: Dehydration, anorexia, acute renal injury, elevated troponin Discharge Exam General Appearance: no apparent distress Neurologic Exam: alert, oriented x 3, cooperative Eye Exam: PERRL Ears, Nose, Throat Exam: normal ENT inspection Neck Exam: normal inspection Respiratory Exam: normal breath sounds, lungs clear Cardiovascular Exam: regular rate/rhythm, normal heart sounds Gastrointestinal/Abdomen Exam: soft, normal bowel sounds Pelvic Exam: deferred Rectal Exam: deferred Back Exam: normal inspection Extremity Exam: normal inspection Skin Exam: normal color Final Diagnosis/Problem List - Final Discharge Diagnosis/Problem (1) Hypercalcemia Current Visit: Yes Status: Acute Code(s): E83.52 - HYPERCALCEMIA (2) Hyperproteinemia Current Visit: Yes Status: Acute Code(s): E88.09 - OTH DISORDERS OF PLASMA- PROTEIN METABOLISM, NEC (3) Acute on chronic renal failure Current Visit: No Status: Acute Code(s): N17.9 - ACUTE KIDNEY FAILURE, UNSPECIFIED; N18.9 - CHRONIC KIDNEY DISEASE, UNSPECIFIED (4) COPD (chronic obstructive pulmonary disease) Current Visit: Yes Status: Acute (5) Troponin level elevated Current Visit: Yes Status: Acute Code(s): R79.89 - OTHER SPECIFIED ABNORMAL FINDINGS OF BLOOD CHEMISTRY (6) Atrial fibrillation Current Visit: No Status: Acute Code(s): I48.91 - UNSPECIFIED ATRIAL FIBRILLATION (7) CHF (congestive heart failure) Current Visit: No Status: Acute Code(s): I50.9 - HEART FAILURE, UNSPECIFIED (8) HTN (hypertension) Current Visit: Yes Status: Acute Code(s): I10 - ESSENTIAL (PRIMARY) HYPERTENSION (9) Hypothyroid Current Visit: Yes Status: Acute Code(s): E03.9 - HYPOTHYROIDISM, UNSPECIFIED - Discharge Disposition: DC TO ANY "OTHER" RETIREMENT Condition: Stable Prescriptions: Continue Buspirone HCl 5 mg [Buspar 5 mg] 5 mg PO BID Pregabalin 50 mg [Lyrica 50MG] 50 mg PO HS Insulin Glargine [Lantus Insulin] 28 unit SQ QAM Apixaban [Eliquis 5 mg Tablet] 5 mg PO BID Folic Acid 1 mg [Folate 1 mg] 1 mg PO DAILY Ferrous Sulfate 325 mg [Feosol 325 mg] 325 mg PO BID Calcium Carbonate 750 mg [Tums EX 750 MG] 2 tab PO BID Insulin Lispro [Humalog] 18 unit SQ EVENING MEAL Famotidine 20 mg [Pepcid 20 MG] 20 mg PO BID Levothyroxine Sodium 100 Mcg [Synthroid 100 Mcg] 200 mcg PO DAILY Glucagon 1 mg [GlucaGen 1 MG] 1 mg IJ UD Tamsulosin HCl 0.4 mg [Flomax 0.4 MG] 0.4 mg PO HS Cyanocobalamin 500 Mcg [Vitamin B-12 500 MCG] 1,000 mcg PO DAILY Montelukast Sodium 10 mg [Singulair 10 MG] 10 mg PO HS L. Acidophilus/L.bulgaricus [Floranex Tablet] 1 each PO DAILY Ergocalciferol (Vitamin D2) [Vitamin D2] 50,000 units PO WEEKLY Metoprolol Succinate 100 mg [Toprol Xl 100 MG] 100 mg PO DAILY Insulin Lispro [Humalog] 12 unit SQ DINNER Insulin Glargine [Lantus Insulin] 28 unit SQ BREAKFAST Insulin Lispro [Humalog] 12 unit SQ BREAKFAST Cetirizine HCl 10 mg PO DAILY Budesonide/Formoterol Fumarate [Budesonide-Formoterol 80-4.5] 2 puffs IH BID PRN PRN Reason: Shortness Of Breath Acetaminophen 325 mg [Tylenol 325 mg] 650 mg PO Q6H PRN PRN PRN Reason: Pain Discontinued Furosemide 40 mg [Lasix 40 MG] 40 mg PO DAILY calcitrioL 0.25 mcg PO BID Calcium Carbonate [Oyster Shell Calcium] 500 mg PO TID Dapagliflozin Propanediol [Farxiga] 10 mg PO DAILY Follow up with: HOMER MILLAN [CONSULTING PHYSICIAN] - 11/21/23 4:20 pm ([place] [facility]) AMNA SAMANO NP [NON-STAFF PHY W/O PRIVILEGES] - 11/24/23 11:30 am
[2023-11-17 12:28] LABS: PTH, Intact 3 pg/mL (15-65)
[2023-11-17 15:09] LABS: Albumin 3.4 g/dL (2.9-4.4); Alpha-1-Globulin 0.2 g/dL (0.0-0.4); Alpha-2-Globulin 1.2 g/dL (0.4-1.0); Gamma Globulin 1.4 g/dL (0.4-1.8); Protein, Total 7.5 g/dL (6.0-8.5)
[2023-11-18 04:54] LABS: Absolute Neutrophil Ct (ANC) 6.17 x10^3/uL (1.4-6.9); BASOPHIL % 0.4 % (0.0-0.4); Basophil (Absolute #) 0.04 x10^3/uL (0-0.4); Eosinophil % 3.6 % (0.00-5.0); Eosinophil (Absolute #) 0.33 x10^3/uL (0-0.5); Hematocrit 32.9 % (35-47); IMMATURE GRAN # 0.03 x10^3u/L (0.00-0.03); IMMATURE GRAN % 0.3 % (0.00-0.4); Lymphocyte (Absolute #) 1.63 x10^3/uL (1.0-4.6); Mean Cell Volume 90.9 fL (78-100); Mean Corpuscular Hemoglobin 30.4 pg (26-32); Mean Corpuscular Hgb Concent. 33.4 g/dL (32-36); Mean Platelet Volume 12.3 fL (7.5-11.0); Monocyte (Absolute #) 0.86 x10^3/uL (0.0-1.3); Monocytes % 9.5 % (0.0-12.0); Neutrophil % 68.2 % (36.0-66.0); Platelet Count 256 x10^3/uL (150-450); Red Blood Count 3.62 x10^6/uL (4.1-5.4); Red Cell Distribution Width 13.8 % (11.5-14.0); White Blood Count 9.1 x10^3/uL (4.0-10.5)
[2023-11-18 05:06] LABS: ALBUMIN 3.1 g/dL (3.5-5.0); ANION GAP 11.6 MEQ/L (5-15); BILIRUBIN,TOTAL 0.2 mg/dL (0.2-1.3); Calcium 8.5 mg/dL (8.4-10.2); Creatinine 1 2.17 mg/dL (0.52-1.04); EST GLOMERULAR FILTRATION RATE 22.8 ML/MIN; Potassium 3.5 mmol/L (3.5-5.1); Total Protein 6.2 g/dL (6.3-8.2)
[2023-11-18] MEDS: Macrobid 100MG Capsule PO SCH (08:45)
[2023-11-18] MEDS: SODIUM BICARBONATE PO SCH (08:49)
[2023-11-18 11:41] VITALS: BP 157/91; PULSE 75; RESP 16; TEMP 96.4; O2SAT 99
--- NOTE | 2023-11-18 14:25 | PCM.DS ---
Discharge Summary Date of Admission: 11/15/23 16:04 Date of Discharge: 11/18/23 Admitting Physician: YONAS ZABALA MD Consults: Consults on Case 11/15/23 17:11 Consult Nephrology ROUTINE Primary Care Provider: JANNA CHAWLA DO Allergies Allergies albuterol Allergy (Intermediate, Verified 09/28/23 15:12) Swelling of Tongue and Lips propranolol [From Inderal LA] Allergy (Intermediate, Verified 09/28/23 15:12) red face and ears levofloxacin [From Levaquin] Allergy (Unknown, Verified 09/28/23 15:12) clonazepam [From Klonopin] Allergy (Verified 09/28/23 15:12) Tightness of Throat tongue swollen dronedarone [From Multaq] Allergy (Verified 09/28/23 18:45) Itching metoclopramide [From Reglan] Allergy (Verified 09/28/23 15:12) propranolol HCl [From Inderal LA] Allergy (Verified 09/28/23 15:12) Swelling of Tongue and Lips red face and ears Sulfa (Sulfonamide Antibiotics) Allergy (Verified 09/28/23 15:12) Swelling of Tongue and Lips throat swell,ears red terfenadine Allergy (Verified 09/28/23 15:12) venom-honey bee [bee venom (honey bee)] Allergy (Verified 09/28/23 15:12) Hives large hives zanamivir [From Relenza Diskhaler] Allergy (Verified 09/28/23 15:12) Swelling of Tongue and Lips throat tightness cilostazol [From Pletal] Adverse Reaction (Severe, Verified 09/28/23 15:12) Swelling of Tongue and Lips ticagrelor [From Brilinta] Adverse Reaction (Severe, Verified 09/28/23 15:12) Swelling of Tongue and Lips Hospital Summary - Hospital Course Hospital Course: is a 78 year old female with a PMHX of gastroesophageal reflux disease, insulin-dependent diabetes, atrial fibrillation on Eliquis, TIAs, peripheral neuropathy, CHF, COPD, hyperlipidemia, hypertension and hypothyroidism who presented to ED 11/15/23 from [facility] with confusion, poor appetite, urinary hesitancy, and dysuria. Admitted with TIM and hypercalcemia. Creat improving. Calcium levels now WNL. US renal unremarkable. Nephrology consulted, patient clear for discharge, per recommendations, will hold Jardiance, calcitrol, calcium carbonate, and lasix until OP follow up. Patient agreeable to discharge to SNF. If accepted today she is stable for discharge. She will need repeat chemistry labs monitoring electrolytes/renal function. Monty to follow. Discharge Note New Diagnosis: Hypercalcemia/TIM New Medications:none, hold Jardiance, calcitrol, calcium carbonate, and lasix Follow Up: pcp/nephrology Latest Assessment & Plan (1) Hypercalcemia Current Visit: Yes Status: Acute Assessment & Plan: -IVF -PTH intact/Ionized calcium -renal us -urine calcium -cxr -SPEP, vitamin D, phos -solumedrol 40mg qd -tele 11/15: -Improving now at 11.6<13.8 -Ionized calcium elevated at 1.47 -Vitamin D low at 24.1, patient is already on vitamin D 42633 weekly for this -Phos is elevated - low phos diet initiated -Plan to continue solumedrol and hydration - monitor for fluid overload -Calcitrol and calcium carbonate home meds held - nephrology consulted 11/16: -resolved, continue to hold calcitrol/calcium carbonate per nephrology, continue vit D Code(s): E83.52 - HYPERCALCEMIA (2) Hyperproteinemia Current Visit: Yes Status: Acute Assessment & Plan: -SPEP -Renal US 11/15: -Renal US pending -Spep pending 11/16: -Resolved -Renal US unremarkable Code(s): E88.09 - OTH DISORDERS OF PLASMA-PROTEIN METABOLISM, NEC (3) Acute on chronic renal failure Current Visit: No Status: Acute Assessment & Plan: -Follows with Dr. Millan As OP -most recent office visit 3 weeks ago per pt, will consult - pending -baseline creat (1.7-1.8) -today improved at 2.69<2.90 -Monitor renal/lytes daily -Avoid NSAIDS/DAYTON/ARBs -gentle hydration, monitor for fluid overload 11/16: -Cleared for discharge from nephrology standpoint, will follow up as op, creat is improving 2.44<2.69<2.90 - hold jardiance/lasix Code(s): N17.9 - ACUTE KIDNEY FAILURE, UNSPECIFIED; N18.9 - CHRONIC KIDNEY DISEA SE, UNSPECIFIED (4) COPD (chronic obstructive pulmonary disease) Current Visit: Yes Status: Acute Assessment & Plan: -Does not appear to be in exacerbation -RA at baseline -RT eval -Nebs/inh prn -Supplemental oxygen with spo2 goal >88-92% (5) Troponin level elevated Current Visit: Yes Status: Acute Assessment & Plan: -EKG with no ischemic changes -Downtrending, may be secondary to renal insufficiency -No chest pain on exam -Repeat trop/EKG in the a.m. Code(s): R79.89 - OTHER SPECIFIED ABNORMAL FINDINGS OF BLOOD CHEMISTRY (6) Atrial fibrillation Current Visit: No Status: Acute Assessment & Plan: -continue home eliquis -tele Code(s): I48.91 - UNSPECIFIED ATRIAL FIBRILLATION (7) CHF (congestive heart failure) Current Visit: No Status: Acute Assessment & Plan: -Does not appear to be in exacerbation --Most recent ECHO 07/07/22 with EF at 47% IMPRESSION: 1) MILD CONCENTRIC LEFT VENTRICULAR HYPERTROPHY. 2) MILD DECREASE IN LEFT VENTRICULAR SYSTOLIC FUNCTION. 3) MODERATE LEFT ATRIAL DILATATION. 4) MILD MITRAL REGURGITATION. 5) MILD TRICUSPID REGURGITATION. 6) SEVERE PULMONARY HYPERTENSION. -obtain echo -Hold lasix for now in the setting of TIM -continue appropriate home meds Code(s): I50.9 - HEART FAILURE, UNSPECIFIED (8) HTN (hypertension) Current Visit: Yes Status: Acute Assessment & Plan: -continue home medications Code(s): I10 - ESSENTIAL (PRIMARY) HYPERTENSION (9) Hypothyroid Current Visit: Yes Status: Acute Assessment & Plan: -continue home meds I spent 35 minutes [id number]-fr-[id number] with the patient on the day of discharge performing discharge exam, discussing hospital stay and discharge instructions with patient and caregivers, preparation of discharge records, prescriptions & referral forms and addressing any questions/concerns the patient had as documented above. - Vitals & Intake/Output Vital Signs: Vital Signs Temperature 96.4 F 11/18/23 11:40 Pulse Rate 75 11/18/23 11:40 Respiratory Rate 16 11/18/23 11:40 Blood Pressure 157/91 11/18/23 11:40 O2 Sat by Pulse Oximetry 99 11/18/23 11:40 Intake & Output: Intake & Output 11/16/23 11/17/23 11/18/23 11/19/23 11:59 11:59 11:59 11:59 Intake Total 760 1100 940 430 Output Total 550 450 Balance 210 650 940 430 Weight 79.6 kg - Lab Result Diagrams: 11/18/23 04:41 11/18/23 04:41 Lab Results-Last 24 Hrs: Lab Results-Last 24 Hours 11/15/23 11/17/23 11/17/23 Range/Units 11:30 16:23 18:44 WBC (4.0-10.5) x10^3/uL RBC (4.1-5.4) x10^6/uL Hgb (12.0-16.0) g/dL Hct (35-47) % MCV (78-100) fL MCH (26-32) pg MCHC (32-36) g/dL RDW (11.5-14.0) % Plt Count (150-450) x10^3/uL MPV (7.5-11.0) fL Gran % (36.0-66.0) % Immature Gran % (Auto) (0.00-0.4) % Nucleat RBC Rel Count (0.00-0.1) % Eos # (Auto) (0-0.5) x10^3/uL Immature Gran # (Auto) (0.00-0.03) x10^3u/L Absolute Lymphs (auto) (1.0-4.6) x10^3/uL Absolute Monos (auto) (0.0-1.3) x10^3/uL Absolute Nucleated RBC (0.00-0.01) x10^3u/L Lymphocytes % (24.0-44.0) % Monocytes % (0.0-12.0) % Eosinophils % (0.00-5.0) % Basophils % (0.0-0.4) % Absolute Granulocytes (1.4-6.9) x10^3/uL Basophils # (0-0.4) x10^3/uL Sodium (135-145) mmol/L Potassium 3.7 D (3.5-5.1) mmol/L Chloride (98-107) mmol/L Carbon Dioxide (22-30) mmol/L Anion Gap (5-15) MEQ/L BUN (7-17) mg/dL Creatinine (0.52-1.04) mg/dL Estimated GFR ML/MIN Glucose (74-106) mg/dL POC Glucometer 189 H (74 to 106) mg/dL Calcium (8.4-10.2) mg/dL Magnesium (1.6-2.3) mg/dL Total Bilirubin (0.2-1.3) mg/dL AST (14-36) U/L ALT (0-35) U/L Alkaline Phosphatase (38-126) U/L Serum Total Protein (6.3-8.2) g/dL Total Protein 7.5 (6.0-8.5) g/dL Albumin (3.5-5.0) g/dL Globulin 4.1 H (2.2-3.9) g/dL Albumin/Globulin Ratio 0.8 (0.7-1.7) Beta Globulins 1.3 (0.7-1.3) g/dL M-Tj Not Observed (Not Observed) g/dL PEP Note Comment (.) Albumin (IRIS) 3.4 (2.9-4.4) g/dL Elwzr-7-Fqoumjimb IRIS 0.2 (0.0-0.4) g/dL Uaysd-6-Kqtpzddde IRIS 1.2 H (0.4-1.0) g/dL Gamma Globulins (IRIS) 1.4 (0.4-1.8) g/dL 11/17/23 11/18/23 11/18/23 Range/Units 21:05 04:41 04:41 WBC 9.1 (4.0-10.5) x10^3/uL RBC 3.62 L (4.1-5.4) x10^6/uL Hgb 11.0 L (12.0-16.0) g/dL Hct 32.9 L (35-47) % MCV 90.9 (78-100) fL MCH 30.4 (26-32) pg MCHC 33.4 (32-36) g/dL RDW 13.8 (11.5-14.0) % Plt Count 256 (150-450) x10^3/uL MPV 12.3 H (7.5-11.0) fL Gran % 68.2 H (36.0-66.0) % Immature Gran % (Auto) 0.3 (0.00-0.4) % Nucleat RBC Rel Count 0.0 (0.00-0.1) % Eos # (Auto) 0.33 (0-0.5) x10^3/uL Immature Gran # (Auto) 0.03 (0.00-0.03) x10^3u/L Absolute Lymphs (auto) 1.63 (1.0-4.6) x10^3/uL Absolute Monos (auto) 0.86 (0.0-1.3) x10^3/uL Absolute Nucleated RBC 0.00 (0.00-0.01) x10^3u/L Lymphocytes % 18.0 L (24.0-44.0) % Monocytes % 9.5 (0.0-12.0) % Eosinophils % 3.6 (0.00-5.0) % Basophils % 0.4 (0.0-0.4) % Absolute Granulocytes 6.17 (1.4-6.9) x10^3/uL Basophils # 0.04 (0-0.4) x10^3/uL Sodium 138 (135-145) mmol/L Potassium 3.5 (3.5-5.1) mmol/L Chloride 111 H (98-107) mmol/L Carbon Dioxide 19 L (22-30) mmol/L Anion Gap 11.6 (5-15) MEQ/L BUN 49 H (7-17) mg/dL Creatinine 2.17 H (0.52-1.04) mg/dL Estimated GFR 22.8 ML/MIN Glucose 70 L (74-106) mg/dL POC Glucometer 117 H (74 to 106) mg/dL Calcium 8.5 (8.4-10.2) mg/dL Magnesium (1.6-2.3) mg/dL Total Bilirubin 0.20 (0.2-1.3) mg/dL AST 20 (14-36) U/L ALT 15 (0-35) U/L Alkaline Phosphatase 55 (38-126) U/L Serum Total Protein 6.2 L (6.3-8.2) g/dL Total Protein (6.0-8.5) g/dL Albumin 3.1 L (3.5-5.0) g/dL Globulin (2.2-3.9) g/dL Albumin/Globulin Ratio (0.7-1.7) Beta Globulins (0.7-1.3) g/dL M-Tj (Not Observed) g/dL PEP Note (.) Albumin (IRIS) (2.9-4.4) g/dL Plnyy-7-Wdkdawhoz IRIS (0.0-0.4) g/dL Qqfub-5-Cngmdfpoa IRIS (0.4-1.0) g/dL Gamma Globulins (IRIS) (0.4-1.8) g/dL 11/18/23 11/18/23 11/18/23 Range/Units 04:41 06:41 07:07 WBC (4.0-10.5) x10^3/uL RBC (4.1-5.4) x10^6/uL Hgb (12.0-16.0) g/dL Hct (35-47) % MCV (78-100) fL MCH (26-32) pg MCHC (32-36) g/dL RDW (11.5-14.0) % Plt Count (150-450) x10^3/uL MPV (7.5-11.0) fL Gran % (36.0-66.0) % Immature Gran % (Auto) (0.00-0.4) % Nucleat RBC Rel Count (0.00-0.1) % Eos # (Auto) (0-0.5) x10^3/uL Immature Gran # (Auto) (0.00-0.03) x10^3u/L Absolute Lymphs (auto) (1.0-4.6) x10^3/uL Absolute Monos (auto) (0.0-1.3) x10^3/uL Absolute Nucleated RBC (0.00-0.01) x10^3u/L Lymphocytes % (24.0-44.0) % Monocytes % (0.0-12.0) % Eosinophils % (0.00-5.0) % Basophils % (0.0-0.4) % Absolute Granulocytes (1.4-6.9) x10^3/uL Basophils # (0-0.4) x10^3/uL Sodium (135-145) mmol/L Potassium (3.5-5.1) mmol/L Chloride (98-107) mmol/L Carbon Dioxide (22-30) mmol/L Anion Gap (5-15) MEQ/L BUN (7-17) mg/dL Creatinine (0.52-1.04) mg/dL Estimated GFR ML/MIN Glucose (74-106) mg/dL POC Glucometer 63 L 72 L (74 to 106) mg/dL Calcium (8.4-10.2) mg/dL Magnesium 1.8 (1.6-2.3) mg/dL Total Bilirubin (0.2-1.3) mg/dL AST (14-36) U/L ALT (0-35) U/L Alkaline Phosphatase (38-126) U/L Serum Total Protein (6.3-8.2) g/dL Total Protein (6.0-8.5) g/dL Albumin (3.5-5.0) g/dL Globulin (2.2-3.9) g/dL Albumin/Globulin Ratio (0.7-1.7) Beta Globulins (0.7-1.3) g/dL M-Tj (Not Observed) g/dL PEP Note (.) Albumin (IRIS) (2.9-4.4) g/dL Zhsod-5-Wqzhpcyze IRIS (0.0-0.4) g/dL Drpun-5-Wydlybkkr IRIS (0.4-1.0) g/dL Gamma Globulins (IRIS) (0.4-1.8) g/dL 11/18/23 Range/Units 11:14 WBC (4.0-10.5) x10^3/uL RBC (4.1-5.4) x10^6/uL Hgb (12.0-16.0) g/dL Hct (35-47) % MCV (78-100) fL MCH (26-32) pg MCHC (32-36) g/dL RDW (11.5-14.0) % Plt Count (150-450) x10^3/uL MPV (7.5-11.0) fL Gran % (36.0-66.0) % Immature Gran % (Auto) (0.00-0.4) % Nucleat RBC Rel Count (0.00-0.1) % Eos # (Auto) (0-0.5) x10^3/uL Immature Gran # (Auto) (0.00-0.03) x10^3u/L Absolute Lymphs (auto) (1.0-4.6) x10^3/uL Absolute Monos (auto) (0.0-1.3) x10^3/uL Absolute Nucleated RBC (0.00-0.01) x10^3u/L Lymphocytes % (24.0-44.0) % Monocytes % (0.0-12.0) % Eosinophils % (0.00-5.0) % Basophils % (0.0-0.4) % Absolute Granulocytes (1.4-6.9) x10^3/uL Basophils # (0-0.4) x10^3/uL Sodium (135-145) mmol/L Potassium (3.5-5.1) mmol/L Chloride (98-107) mmol/L Carbon Dioxide (22-30) mmol/L Anion Gap (5-15) MEQ/L BUN (7-17) mg/dL Creatinine (0.52-1.04) mg/dL Estimated GFR ML/MIN Glucose (74-106) mg/dL POC Glucometer 373 H (74 to 106) mg/dL Calcium (8.4-10.2) mg/dL Magnesium (1.6-2.3) mg/dL Total Bilirubin (0.2-1.3) mg/dL AST (14-36) U/L ALT (0-35) U/L Alkaline Phosphatase (38-126) U/L Serum Total Protein (6.3-8.2) g/dL Total Protein (6.0-8.5) g/dL Albumin (3.5-5.0) g/dL Globulin (2.2-3.9) g/dL Albumin/Globulin Ratio (0.7-1.7) Beta Globulins (0.7-1.3) g/dL M-Tj (Not Observed) g/dL PEP Note (.) Albumin (IRIS) (2.9-4.4) g/dL Wdbiq-2-Boqlhljok IRIS (0.0-0.4) g/dL Weepv-3-Gsrskocte IRIS (0.4-1.0) g/dL Gamma Globulins (IRIS) (0.4-1.8) g/dL Micro Results-Entire Visit: Microbiology 11/15/23 13:50 Urine Culture - Final Urine, Void Enterococcus Faecium Accuchecks Date 11/18/23 Date 11/18/23 Date 11/17/23 Date 11/17/23 Time 11:40 Time 06:45 Time 21:00 Time 16:34 - Radiology Exams Ordered Rad Exams-Entire Visit: Radiology Procedures Category Date Time Status KIDNEY [US] Routine Exams 11/17/23 08:00 Completed - Procedures and Test Procedures and Tests throughout Hospitalization: Therapy Orders & Screens 11/15/23 17:03 PT Eval & Treat ( Order) ONCE Reason for Eval:: weakness Diagnosis: Dehydration, anorexia, acute renal injury, elevated troponin EKG REPEAT IN AM Comment: Diagnosis: Dehydration, anorexia, acute renal injury, elevated troponin Respiratory Therapy Consult ONCE Comment: Reason For Exam: Diagnosis: Dehydration, anorexia, acute renal injury, elevated troponin 11/15/23 17:53 Respiratory Therapy Assessment DAILY Comment: Diagnosis: Dehydration, anorexia, acute renal injury, elevated troponin Discharge Exam General Appearance: no apparent distress Neurologic Exam: alert, oriented x 3, cooperative Eye Exam: PERRL Ears, Nose, Throat Exam: moist mucous membranes Neck Exam: full range of motion Respiratory Exam: normal breath sounds, lungs clear Cardiovascular Exam: regular rate/rhythm, normal heart sounds Gastrointestinal/Abdomen Exam: soft, normal bowel sounds Pelvic Exam: deferred Rectal Exam: deferred Back Exam: normal inspection Extremity Exam: normal inspection Skin Exam: pale Final Diagnosis/Problem List - Final Discharge Diagnosis/Problem (1) Hypercalcemia Current Visit: Yes Status: Acute Code(s): E83.52 - HYPERCALCEMIA (2) Hyperproteinemia Current Visit: Yes Status: Acute Code(s): E88.09 - OTH DISORDERS OF PLASMA- PROTEIN METABOLISM, NEC (3) Acute on chronic renal failure Current Visit: No Status: Acute Code(s): N17.9 - ACUTE KIDNEY FAILURE, UNSPECIFIED; N18.9 - CHRONIC KIDNEY DISEASE, UNSPECIFIED (4) COPD (chronic obstructive pulmonary disease) Current Visit: Yes Status: Acute (5) Troponin level elevated Current Visit: Yes Status: Acute Code(s): R79.89 - OTHER SPECIFIED ABNORMAL FINDINGS OF BLOOD CHEMISTRY (6) Atrial fibrillation Current Visit: No Status: Acute Code(s): I48.91 - UNSPECIFIED ATRIAL FIBRILLATION (7) CHF (congestive heart failure) Current Visit: No Status: Acute Code(s): I50.9 - HEART FAILURE, UNSPECIFIED (8) HTN (hypertension) Current Visit: Yes Status: Acute Code(s): I10 - ESSENTIAL (PRIMARY) HYPERTENSION (9) Hypothyroid Current Visit: Yes Status: Acute Code(s): E03.9 - HYPOTHYROIDISM, UNSPECIFIED - Discharge Disposition: DC TO ANY "OTHER" USP Condition: Stable Prescriptions: Continue Buspirone HCl 5 mg [Buspar 5 mg] 5 mg PO BID Pregabalin 50 mg [Lyrica 50MG] 50 mg PO HS Insulin Glargine [Lantus Insulin] 28 unit SQ QAM Apixaban [Eliquis 5 mg Tablet] 5 mg PO BID Folic Acid 1 mg [Folate 1 mg] 1 mg PO DAILY Ferrous Sulfate 325 mg [Feosol 325 mg] 325 mg PO BID Calcium Carbonate 750 mg [Tums EX 750 MG] 2 tab PO BID Insulin Lispro [Humalog] 18 unit SQ EVENING MEAL Famotidine 20 mg [Pepcid 20 MG] 20 mg PO BID Levothyroxine Sodium 100 Mcg [Synthroid 100 Mcg] 200 mcg PO DAILY Glucagon 1 mg [GlucaGen 1 MG] 1 mg IJ UD Tamsulosin HCl 0.4 mg [Flomax 0.4 MG] 0.4 mg PO HS Cyanocobalamin 500 Mcg [Vitamin B-12 500 MCG] 1,000 mcg PO DAILY Montelukast Sodium 10 mg [Singulair 10 MG] 10 mg PO HS L. Acidophilus/L.bulgaricus [Floranex Tablet] 1 each PO DAILY Ergocalciferol (Vitamin D2) [Vitamin D2] 50,000 units PO WEEKLY Metoprolol Succinate 100 mg [Toprol Xl 100 MG] 100 mg PO DAILY Insulin Lispro [Humalog] 12 unit SQ DINNER Insulin Glargine [Lantus Insulin] 28 unit SQ BREAKFAST Insulin Lispro [Humalog] 12 unit SQ BREAKFAST Cetirizine HCl 10 mg PO DAILY Budesonide/Formoterol Fumarate [Budesonide-Formoterol 80-4.5] 2 puffs IH BID PRN PRN Reason: Shortness Of Breath Acetaminophen 325 mg [Tylenol 325 mg] 650 mg PO Q6H PRN PRN PRN Reason: Pain Discontinued Furosemide 40 mg [Lasix 40 MG] 40 mg PO DAILY calcitrioL 0.25 mcg PO BID Calcium Carbonate [Oyster Shell Calcium] 500 mg PO TID Dapagliflozin Propanediol [Farxiga] 10 mg PO DAILY Additional Instructions: USP ORDERS: [facility] [address] ACCU CHECKS PT/OT EVAL AND TREAT SEE ATTACHED MED LIST Follow up with: HOMER MILLAN [CONSULTING PHYSICIAN] - 11/21/23 4:20 pm ([place] Office) AMNA SAMANO NP [NON-STAFF PHY W/O PRIVILEGES] - 11/24/23 11:30 am Forms: Transfer Record Alf
--- NOTE | 2023-11-21 11:50 | ECHO ---
DATE: 11/16/2023 INDICATION: Elevated troponin. The M-mode, 2D, and Doppler echocardiogram including color flow Doppler shows the left ventricle is normal in size. There is borderline concentric left ventricular hypertrophy. There is evidence of impaired left ventricular relaxation. There is normal contractility of the left ventricle. The ejection fraction is calculated to be 72%. The right ventricle is grossly normal. The left atrium is mildly dilated. The interatrial septum is intact. The right atrium is normal. The aortic valve is not well visualized. There is mitral valvular calcification. There is mild tricuspid regurgitation. The right ventricular systolic pressure is calculated to be 19 mm Hg. The pulmonic valve is not well visualized. The aortic root is normal. There is no pericardial effusion present. IMPRESSION: 1. NORMAL CONTRACTILITY OF THE LEFT VENTRICLE. 2. MILD CONCENTRIC LEFT VENTRICULAR HYPERTROPHY. 3. POSSIBLE IMPAIRED LEFT VENTRICULAR RELAXATION. 4. MILD TRICUSPID REGURGITATION. 5. NORMAL RIGHT VENTRICULAR SYSTOLIC PRESSURE. 6. MITRAL VALVULAR CALCIFICATION.
[2023-11-22] MEDS ORDERED: VITAMIN D2 PO SCH (10:00)
== END 2023-11-18 16:17 ==
LOC: ED 11:16 → MED SURG 16:04
PROVIDERS: ADMIT Internal Medicine; ATTEND Internal Medicine
DX: E83.52 Hypercalcemia (principal); E88.09 Other disorders of plasma-protein metabolism, not elsewhere classified; N17.9 Acute kidney failure, unspecified; J44.9 Chronic obstructive pulmonary disease, unspecified; R79.89 Other specified abnormal findings of blood chemistry; I48.91 Unspecified atrial fibrillation; I13.0 Hypertensive heart and chronic kidney disease with heart failure and stage 1 through stage 4 chronic kidney disease, or unspecified chronic kidney disease; E11.22 Type 2 diabetes mellitus with diabetic chronic kidney disease; I50.9 Heart failure, unspecified; N18.9 Chronic kidney disease, unspecified; E03.9 Hypothyroidism, unspecified; Z79.899 Other long term (current) drug therapy; Z20.828 Contact with and (suspected) exposure to other viral communicable diseases; Z79.01 Long term (current) use of anticoagulants; Z85.3 Personal history of malignant neoplasm of breast
CPT/HCPCS: 36000; 36415; 70450; 71045; 76770; 80053; 81001; 82306; 82330; 82340; 82947; 83521; 83735; 83970; 84100; 84132; 84165; 84484; 85025; 87077; 87086; 87186; 93005; 93041; 93306; 94640; 94760; 97161; 97530; 99285; Q3014; 93268; J1817; J2919; A9270-GY; G0378

== ENCOUNTER 2023-11-28 20:44 | Observation (INO) | payer MEDICARE ==
--- NOTE | 2023-11-28 21:35 | ERPHSYRPT ---
- History of Present Illness Time Seen by Provider: 11/28/23 21:10 Source: patient, EMS, old records Exam Limitations: clinical condition Patient Subjective Stated Complaint: pt is from [facility] and when the nurse came to give night time medications pt was confused, pt is normally alert and oriented x3 Triage Nursing Assessment: pt presents to ED via medic 1, pt alert to self, pt skin pwd, pt has no complaints, pt has some old bruising on R lower leg, pt unsure what this is from, hand echocardiography tech strong and equal bilaterally, no facial drop, pt denies any numbness of tingling, pupils PERRL Physician History: This is a 78-year-old white female patient who is a resident at [facility] and presents to the emergency department by 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 The last time she was her normal self was sometime earlier this morning per nurses report. Patient had similar symptoms on 11/15/2023 and was admitted in the hospital on that date and discharged from the hospital 11/18/2023. I reviewed the recent and hospital admission note. I also reviewed the report of the CT scan of the head dated 11/15/2023 which showed stable nonacute senile brain. I also reviewed the twelve-lead EKG that was performed on 11/15/2003 which showed a normal sinus rhythm at a heart rate of 76 bpm, normal axis and normal intervals. At that visit she also had slightly elevated troponin levels. Patient has multiple medical problems including COPD, hypothyroidism, insulin-dependent diabetes, anemia, depression, hypertension, TIAs, peripheral neuropathy, gastroesophageal reflux disease, CHF and chronic renal disease. Timing/Duration: today Severity: moderate Deficits: decrease ability to stand, decrease ability to walk Baseline/Normal Cognition: alert but confused Current Cognition: alert but confused Baseline Gait: walks only w/assistance Associated Symptoms: confusion (Patient is oriented to self) Allergies/Adverse Reactions: albuterol Allergy (Intermediate, Verified 11/28/23 21:07) Swelling of Tongue and Lips propranolol [From Inderal LA] Allergy (Intermediate, Verified 11/28/23 21:07) red face and ears levofloxacin [From Levaquin] Allergy (Unknown, Verified 11/28/23 21:07) clonazepam [From Klonopin] Allergy (Verified 11/28/23 21:07) Tightness of Throat tongue swollen dronedarone [From Multaq] Allergy (Verified 11/28/23 21:07) Itching metoclopramide [From Reglan] Allergy (Verified 11/28/23 21:07) propranolol HCl [From Inderal LA] Allergy (Verified 11/28/23 21:07) Swelling of Tongue and Lips red face and ears Sulfa (Sulfonamide Antibiotics) Allergy (Verified 11/28/23 21:07) Swelling of Tongue and Lips throat swell,ears red terfenadine Allergy (Verified 11/28/23 21:07) venom-honey bee [bee venom (honey bee)] Allergy (Verified 11/28/23 21:07) Hives large hives wheat Allergy (Verified 11/28/23 21:07) zanamivir [From Relenza Diskhaler] Allergy (Verified 11/28/23 21:07) Swelling of Tongue and Lips throat tightness cilostazol [From Pletal] Adverse Reaction (Severe, Verified 11/28/23 21:07) Swelling of Tongue and Lips ticagrelor [From Brilinta] Adverse Reaction (Severe, Verified 11/28/23 21:07) Swelling of Tongue and Lips Home Medications: Buspirone HCl 5 mg [Buspar 5 mg] 5 mg PO BID 12/02/20 [History] Pregabalin 50 mg [Lyrica 50MG] 50 mg PO HS 07/06/22 [History] Apixaban [Eliquis 5 mg Tablet] 5 mg PO BID 07/16/22 [History] Calcium Carbonate 750 mg [Tums EX 750 MG] 2 tab PO BID 08/31/22 [History] Ferrous Sulfate 325 mg [Feosol 325 mg] 325 mg PO BID 08/31/22 [History] Folic Acid 1 mg [Folate 1 mg] 1 mg PO DAILY 08/31/22 [History] Insulin Lispro [Humalog] 20 unit SQ EVENING MEAL 09/28/23 [History] Famotidine 20 mg [Pepcid 20 MG] 20 mg PO BID 10/27/23 [History] Acetaminophen 325 mg [Tylenol 325 mg] 650 mg PO Q6H PRN PRN 11/15/23 [History] Budesonide/Formoterol Fumarate [Budesonide-Formoterol 80-4.5] 2 puffs IH BID PRN 11/15/23 [History] Cetirizine HCl 10 mg PO DAILY 11/15/23 [History] Cyanocobalamin 500 Mcg [Vitamin B-12 500 MCG] 1,000 mcg PO DAILY 11/15/23 [History] Glucagon 1 mg [GlucaGen 1 MG] 1 mg IJ UD 11/15/23 [History] Insulin Glargine [Lantus Insulin] 34 unit SQ BREAKFAST 11/15/23 [History] Insulin Lispro [Humalog] 14 unit SQ LUNCH 11/15/23 [History] Insulin Lispro [Humalog] 16 unit SQ BREAKFAST 11/15/23 [History] L. Acidophilus/L.bulgaricus [Floranex Tablet] 1 each PO DAILY 11/15/23 [History] Levothyroxine Sodium 100 Mcg [Synthroid 100 Mcg] 200 mcg PO DAILY 11/15/23 [History] Montelukast Sodium 10 mg [Singulair 10 MG] 10 mg PO HS 11/15/23 [History] Tamsulosin HCl 0.4 mg [Flomax 0.4 MG] 0.4 mg PO HS 11/15/23 [History] Ergocalciferol (Vitamin D2) [Vitamin D2] 50,000 units PO WEEKLY 11/28/23 [History] Levothyroxine Sodium 25 mcg PO DAILY 11/28/23 [History] Hx Tetanus, Diphtheria Vaccination/Date Given: Yes Hx Influenza Vaccination/Date Given: Yes Hx Pneumococcal Vaccination/Date Given: Yes Travel Risk - International Travel Have you traveled outside of the country in past 3 weeks: No - Emerging Infectious Disease Are you exhibiting symptoms associated with any current EIDs: No - Review of Systems Constitutional: No Symptoms Eyes: No Symptoms Ears, Nose, & Throat: No Symptoms Respiratory: No Symptoms Cardiac: No Symptoms Abdominal/Gastrointestinal: No Symptoms Genitourinary Symptoms: No Symptoms Musculoskeletal: No Symptoms Skin: No Symptoms Neurological: Other (Confusion) Psychological: No Symptoms Endocrine: No Symptoms Hematologic/Lymphatic: No Symptoms Immunological/Allergic: No Symptoms All Other Systems: Reviewed and Negative - Past Medical History Pertinent Past Medical History: Yes Neurological History: TIA, Peripheral Neuropathy ENT History: Other Cardiac History: Arrhythmia, Congestive Heart Failure, High Cholesterol, Hypertension, Myocardial Infarction ([place]) Respiratory History: CHF, COPD Endocrine Medical History: Diabetes Type II, Hypothyroidism Musculoskeletal History: No Pertinent History GI Medical History: Other, GERD History: No Pertinent History Psycho-Social History: Anxiety Female Reproductive Disorders: Breast Cancer Other Medical History: right eye retinal scratch November 2020, NEUROPATHY - Past Surgical History Past Surgical History: Yes Neuro Surgical History: No Pertinent History Cardiac: Other Respiratory: No Pertinent History Gastrointestinal: Hernia Repair Genitourinary: No Pertinent History Musculoskeletal: No Pertinent History Female Surgical History: Mastectomy, Lumpectomy Other Surgical History: left mastectomy 1993, right lumpectomy, right thyroid removed, left thyroid removed with goiter, pubic mass, left knee scope, valve replacement - Social History Smoking Status: Never smoker Exposure to second hand smoke: No Drug Use: none Patient Lives Alone: Yes - Nursing Vital Signs Nursing Vital Signs: Initial Vital Signs Temperature 98.2 F 11/28/23 20:47 Pulse Rate 92 H 11/28/23 20:47 Respiratory Rate 18 11/28/23 20:47 Blood Pressure 171/108 11/28/23 20:47 O2 Sat by Pulse Oximetry 97 11/28/23 20:47 Pain Scale Pain Intensity 0 - Independence Coma Scale Best Eye Response (Independence): (4) open spontaneously Best Verbal Response (Independence): (4) confused conversation Best Motor Response (Independence): (6) obeys commands Independence Total: 14 - Physical Exam General Appearance: no apparent distress, alert, anxiety, obese Eye Exam: bilateral eye: normal inspection, PERRL, EOMI Ears, Nose, Throat Exam: normal ENT inspection, moist mucous membranes Neck Exam: normal inspection, non-tender, supple, full range of motion Respiratory: normal breath sounds, lungs clear, airway intact, No chest tenderness, No respiratory distress Cardiovascular: regular rate/rhythm, normal heart sounds, normal peripheral pulses Gastrointestinal: soft, normal bowel sounds, No tenderness Pelvic Exam: not done Rectal Exam: not done Back Exam: normal inspection, normal range of motion, No CVA tenderness, No vertebral tenderness Extremity Exam: normal inspection, normal range of motion, pelvis stable Mental Status: alert (Oriented only to self), cooperative, disoriented to place, 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 No evidence of acute ischemia. No significant change when compared to the twelve-lead EKG dated 11/15/2023) Ordered Tests: Active Orders 24 hr Category Date Time Status Optical Glass Silverer STAT Care 11/28/23 21:28 Active Cath for Specimen-Straight STAT Care 11/28/23 21:28 Active EKG-ER Only STAT Care 11/28/23 21:28 Active IV Insertion STAT Care 11/28/23 21:28 Active NPO (ED) STAT Care 11/28/23 21:28 Active Pulse Oximetry (ED) STAT Care 11/28/23 21:28 Active HEAD WITHOUT CONTRAST [CT] Stat Exams 11/28/23 21:28 Completed BLOOD CULTURE Stat Lab 11/28/23 21:28 Received CBC W DIFF Stat Lab 11/28/23 21:50 Completed CMP Stat Lab 11/28/23 21:50 Completed CULTURE,URINE Stat Lab 11/28/23 22:11 Received MAGNESIUM Stat Lab 11/28/23 21:50 Completed TROPONIN Q4H Lab 11/28/23 21:50 Completed UA W/RFX UR CULTURE Stat Lab 11/28/23 22:11 Completed Medication Summary Generic Name Dose Route Start Last Admin Trade Name Freq PRN Reason Stop Dose Admin Sodium Chloride 1,000 mls @ 100 mls/hr 11/28/23 21:30 11/28/23 21:38 Sodium Chloride 0.9% 1000 Ml IV 12/28/23 21:29 100 mls/hr .Q10H RAMON Administration Discontinued Medications Generic Name Dose Route Start Last Admin Trade Name Freq PRN Reason Stop Dose Admin Hydralazine HCl 10 mg 11/28/23 23:22 11/28/23 23:31 Hydralazine Hcl 20 Mg/Ml Vial IV 11/28/23 23:23 10 mg STAT ONE Administration Hydralazine HCl Confirm 11/28/23 23:28 Hydralazine Hcl 20 Mg/Ml Vial Administered 11/28/23 23:29 Dose 20 mg .ROUTE .STK-MED ONE Ceftriaxone Sodium 1 gm in 100 mls @ 200 mls/hr 11/28/23 22:52 11/28/23 23:58 Rocephin 1 Gm / 100 Ml Nacl IV 11/28/23 23:21 Infused STAT ONE Infusion Ceftriaxone Sodium Confirm 11/28/23 23:39 Rocephin 1 Gm / 100 Ml Nacl Administered 11/28/23 23:40 Dose 1 gm in 100 mls @ ud IV .STK-MED ONE Lab/Rad Data: Laboratory Result Diagrams 11/28/23 21:50 11/28/23 21:50 Laboratory Results 11/28/23 11/28/23 11/28/23 Range/Units 22:11 21:50 21:50 WBC (4.0-10.5) x10^3/uL RBC (4.1-5.4) x10^6/uL Hgb (12.0-16.0) g/dL Hct (35-47) % MCV (78-100) fL MCH (26-32) pg MCHC (32-36) g/dL RDW (11.5-14.0) % Plt Count (150-450) x10^3/uL MPV (7.5-11.0) fL Gran % (36.0-66.0) % Immature Gran % (Auto) (0.00-0.4) % Nucleat RBC Rel Count (0.00-0.1) % Eos # (Auto) (0-0.5) x10^3/uL Immature Gran # (Auto) (0.00-0.03) x10^3u/L Absolute Lymphs (auto) (1.0-4.6) x10^3/uL Absolute Monos (auto) (0.0-1.3) x10^3/uL Absolute Nucleated RBC (0.00-0.01) x10^3u/L Lymphocytes % (24.0-44.0) % Monocytes % (0.0-12.0) % Eosinophils % (0.00-5.0) % Basophils % (0.0-0.4) % Absolute Granulocytes (1.4-6.9) x10^3/uL Basophils # (0-0.4) x10^3/uL Sodium (135-145) mmol/L Potassium (3.5-5.1) mmol/L Chloride (98-107) mmol/L Carbon Dioxide (22-30) mmol/L Anion Gap (5-15) MEQ/L BUN (7-17) mg/dL Creatinine (0.52-1.04) mg/dL Estimated GFR ML/MIN Glucose (74-106) mg/dL Calcium (8.4-10.2) mg/dL Magnesium (1.6-2.3) mg/dL Total Bilirubin (0.2-1.3) mg/dL AST (14-36) U/L ALT (0-35) U/L Alkaline Phosphatase (38-126) U/L Ammonia < 9 L (9-30) umol/L Troponin I 0.050 H* (0.000-0.033) ng/mL Serum Total Protein (6.3-8.2) g/dL Albumin (3.5-5.0) g/dL Urine Color Yellow (Yellow) Urine Appearance Cloudy A (Clear) Urine pH 5.0 (4.6-8.0) Ur Specific [place] 1.020 (1.005-1.030) Urine Protein >=1000 A (Negative) Urine Glucose (UA) >=1000 A (Negative) mg/dL Urine Ketones Negative (Negative) Urine Blood Negative (Negative) Urine Nitrite Negative (Negative) Urine Bilirubin Negative (Negative) Urine Urobilinogen 0.2 (0.2) mg/dL Ur Leukocyte Esterase Negative (Negative) U Hyaline Cast (Auto) 3-5 A (0-2) /LPF Urine Microscopic RBC 0-2 (0-5) /HPF Urine Microscopic WBC 11-20 A (0-5) /HPF Ur Epithelial Cells Moderate A (None Seen) /HPF Urine Bacteria Many A (None Seen) /HPF Urine Culture Reflexed YES (NO) 11/28/23 11/28/23 Range/Units 21:50 21:50 WBC 16.3 H (4.0-10.5) x10^3/uL RBC 4.35 (4.1-5.4) x10^6/uL Hgb 13.1 (12.0-16.0) g/dL Hct 38.2 (35-47) % MCV 87.8 (78-100) fL MCH 30.1 (26-32) pg MCHC 34.3 (32-36) g/dL RDW 13.7 (11.5-14.0) % Plt Count 365 (150-450) x10^3/uL MPV 10.7 (7.5-11.0) fL Gran % 85.3 H (36.0-66.0) % Immature Gran % (Auto) 0.4 (0.00-0.4) % Nucleat RBC Rel Count 0.0 (0.00-0.1) % Eos # (Auto) 0.08 (0-0.5) x10^3/uL Immature Gran # (Auto) 0.06 H (0.00-0.03) x10^3u/L Absolute Lymphs (auto) 1.02 (1.0-4.6) x10^3/uL Absolute Monos (auto) 1.18 (0.0-1.3) x10^3/uL Absolute Nucleated RBC 0.00 (0.00-0.01) x10^3u/L Lymphocytes % 6.3 L (24.0-44.0) % Monocytes % 7.2 (0.0-12.0) % Eosinophils % 0.5 (0.00-5.0) % Basophils % 0.3 (0.0-0.4) % Absolute Granulocytes 13.91 H (1.4-6.9) x10^3/uL Basophils # 0.05 (0-0.4) x10^3/uL Sodium 136 (135-145) mmol/L Potassium 3.8 (3.5-5.1) mmol/L Chloride 100 (98-107) mmol/L Carbon Dioxide 21 L (22-30) mmol/L Anion Gap 19.1 H (5-15) MEQ/L BUN 36 H (7-17) mg/dL Creatinine 2.62 H (0.52-1.04) mg/dL Estimated GFR 18.2 ML/MIN Glucose 90 (74-106) mg/dL Calcium 7.1 L (8.4-10.2) mg/dL Magnesium 1.6 (1.6-2.3) mg/dL Total Bilirubin 0.50 (0.2-1.3) mg/dL AST 23 (14-36) U/L ALT 18 (0-35) U/L Alkaline Phosphatase 79 (38-126) U/L Ammonia (9-30) umol/L Troponin I (0.000-0.033) ng/mL Serum Total Protein 8.3 H (6.3-8.2) g/dL Albumin 4.3 (3.5-5.0) g/dL Urine Color (Yellow) Urine Appearance (Clear) Urine pH (4.6-8.0) Ur Specific [place] (1.005-1.030) Urine Protein (Negative) Urine Glucose (UA) (Negative) mg/dL Urine Ketones (Negative) Urine Blood (Negative) Urine Nitrite (Negative) Urine Bilirubin (Negative) Urine Urobilinogen (0.2) mg/dL Ur Leukocyte Esterase (Negative) U Hyaline Cast (Auto) (0-2) /LPF Urine Microscopic RBC (0-5) /HPF Urine Microscopic WBC (0-5) /HPF Ur Epithelial Cells (None Seen) /HPF Urine Bacteria (None Seen) /HPF Urine Culture Reflexed (NO) - Progress Progress: unchanged, re-examined Progress Note: 11/28/23 21:47 My medical decision making and the assignment of moderate high complexity to this patient's medical issue today is based on review of the patient's past medical history, review of the patient's last inpatient hospital stay and associated lab, radiographic and EKG study results, review of the patient's medication list, review the patient drug allergy list, history present illness and physical findings on examination. The workup in this patient includes placement of intravenous line, infusion of low rate normal saline solution, urinalysis, ammonia level, magnesium level, CBC, CMP, troponin level, CT scan of the head without contrast. Differential diagnosis includes CVA, TIA, electrolyte abnormalities, ammonia level elevation, UTI, worsening dementia 11/28/23 23:08 I interpreted the patient's laboratory data results. Patient has chronic kidney disease and her GFR is in line with prior values. Patient has chronically elevated troponin levels and it is actually in fact lower than it has been in the last few readings over the course of the last 2 to 3 weeks. Patient has a urinary tract infection. Patient has leukocytosis and this is likely due to urinary tract infection. CT scan of the head without contrast was interpreted by the radiologist and I reviewed the interpretation. There is no evidence of any acute infarction. There are microvascular ischemic hemic changes as well as senile changes. There is atherosclerotic disease of the internal carotid arteries and vertebral arteries. No evidence of any acute intracranial abnormality. 11/28/23 23:10 11/29/23 00:03 This patient has hypertension and also has, in my opinion, urinary tract infection as a source of her leukocytosis and confusion. She has significant white cells and bacteria in her urine. We will place her in observation. I spoke with Dr. Oh and I reviewed the patient history, presenting complaint, workup results. In addition, the patient will benefit from low rate hydration. Counseled pt/family regarding: lab results, diagnosis, rad results Medical Desision Making - Independent Historian Additional History obtained from: Detention nurse, Lead Web Developer/EMT - External Record(s) Reviewed Records reviewed as a part of evaluation & management: Inpatient, Discharge Summary, [facility] - Diagnostic Testing Diagnostic test were ordered, analyzed, and reviewed by me: Yes Radiological Interpretation: Reviewed by me, Teleradiologist Report - Risk of complications The pt has a high risk of morbidity or mortality based on: Decision regarding hospitilization or escalation of hosp level of care - Departure Clinical Impression: Confusion, UTI (urinary tract infection), Chronic kidney disease, Elevated troponin level, Hypertension Condition: Stable Critical Care Time: No Referrals: JESSIKA PADRON OF [LOCATION] - Follow up/PCP as directed
[2023-11-28] MEDS ORDERED: Sodium Chloride 0.9% 1000 ML 1,000 ML ONE (21:37)
[2023-11-28] MEDS: Sodium Chloride 0.9% 1000 ML 1,000 ML IV SCH (21:38)
[2023-11-28 21:57] LABS: Absolute Neutrophil Ct (ANC) 13.91 x10^3/uL (1.4-6.9); BASOPHIL % 0.3 % (0.0-0.4); Basophil (Absolute #) 0.05 x10^3/uL (0-0.4); Eosinophil % 0.5 % (0.00-5.0); Eosinophil (Absolute #) 0.08 x10^3/uL (0-0.5); Hematocrit 38.2 % (35-47); Hemoglobin 13.1 g/dL (12.0-16.0); IMMATURE GRAN # 0.06 x10^3u/L (0.00-0.03); IMMATURE GRAN % 0.4 % (0.00-0.4); Lymphocyte (Absolute #) 1.02 x10^3/uL (1.0-4.6); Lymphocytes % 6.3 % (24.0-44.0); Mean Cell Volume 87.8 fL (78-100); Mean Corpuscular Hemoglobin 30.1 pg (26-32); Mean Corpuscular Hgb Concent. 34.3 g/dL (32-36); Mean Platelet Volume 10.7 fL (7.5-11.0); Monocyte (Absolute #) 1.18 x10^3/uL (0.0-1.3); Monocytes % 7.2 % (0.0-12.0); Neutrophil % 85.3 % (36.0-66.0); Platelet Count 365 x10^3/uL (150-450); Red Blood Count 4.35 x10^6/uL (4.1-5.4); Red Cell Distribution Width 13.7 % (11.5-14.0); White Blood Count 16.3 x10^3/uL (4.0-10.5)
[2023-11-28 22:10] LABS: ALBUMIN 4.3 g/dL (3.5-5.0); ANION GAP 19.1 MEQ/L (5-15); BILIRUBIN,TOTAL 0.5 mg/dL (0.2-1.3); Calcium 7.1 mg/dL (8.4-10.2); Creatinine 1 2.62 mg/dL (0.52-1.04); EST GLOMERULAR FILTRATION RATE 18.2 ML/MIN; MAGNESIUM 1.6 mg/dL (1.6-2.3); Potassium 3.8 mmol/L (3.5-5.1); Total Protein 8.3 g/dL (6.3-8.2)
[2023-11-28 22:33] LABS: ADD URINE CULTURE? YES (NO); Appearance Cloudy (Clear); Bacteria Many /HPF (None Seen); Bilirubin Negative (Negative); Blood Negative (Negative); Epithelial Cells Moderate /HPF (None Seen); Glucose, Urine >=1000 mg/dL (Negative); Ketones Negative (Negative); Leukocyte Esterase Negative (Negative); Nitrite Negative (Negative); Protein,Urine Dip >=1000 (Negative); RBC 0-2 /HPF (0-5); Urobilinogen 0.2 mg/dL (0.2)
[2023-11-28] MEDS: ROCEPHIN 1 GM / 100 ML NaCl 1 GM/100 ML IVPB IV ONE (23:01)
--- NOTE | 2023-11-28 23:02 | XRAY ---
CLINICAL HISTORY: Confusion COMPARISON: none TECHNIQUE: An axial non-contrast CT scan of the brain was performed from the skull base to the high parietal region. One of the following dose reduction techniques was utilized for this exam: Automated exposure control, adjustment of the mA and/or kV according to patient size, and use of iterative reconstruction. CTDI: 53.92 mGy. DLP: 991.01 mGy*cm. FINDINGS: There are few ill-defined [id number] areas noted in the subcortical white matter and periventricular deep white matter bilaterally, suggestive of microvascular ischemic changes. The ventricular system, cortical sulci, and basal cisterns are prominent consistent with senile changes. In both external capsules, there are zones of encephalomalacia suggesting prior chronic infarction. The rest of the brain parenchyma shows a normal appearance. Choi-white matter differentiation is maintained. No midline shifts or deformity. No intracerebral or extra axial hematoma. Normal CT appearance of the posterior fossa structures namely the cerebellar hemispheres, brainstem, and cerebellar peduncles. The IACs appear increased in diameter with fluid-like attenuation, but the evaluation of this finding is limited. The cerebello-pontine angles are clear. The pituitary gland, the pineal gland, and the optic chiasm are unremarkable. The osseous structures in the skull base are unremarkable. No definite calvarium fractures. Atherosclerotic disease of the internal carotid and vertebral arteries. The scanned paranasal sinuses are clear. IMPRESSION: 1. The above-mentioned findings are suggestive of microvascular ischemic changes and senile changes. 2. In both external capsules, there are zones of encephalomalacia suggesting prior chronic infarction. 3. If there is a high clinical suspicion of acute ischemia, consider Brain MRI with DWI for further evaluation. 4. The IACs appear increased in diameter with fluid-like attenuation, but the evaluation of this finding is limited. Consider contrast-enhanced IAC MRI for further evaluation. 5. Atherosclerotic disease of the internal carotid and vertebral arteries. Electronically Signed by: Claudine Monge MD. (11/28/2023 22:58:34 EDT)
[2023-11-28] MEDS ORDERED: APRESOLINE 20 MG/ML INJ ONE (23:28)
[2023-11-28] MEDS: APRESOLINE 20 MG/ML INJ IV ONE (23:31)
[2023-11-28] MEDS ORDERED: ROCEPHIN 1 GM / 100 ML NaCl 1 GM/100 ML IVPB IV ONE (23:39)
[2023-11-29] MEDS ORDERED: TYLENOL 325 MG PO PRN ×2 (00:28→00:34)
[2023-11-29] MEDS ORDERED: Zofran 4 MG/2 ML VIAL IV PRN (00:28)
[2023-11-29] MEDS: ROCEPHIN 1 GM / 100 ML NaCl 1 GM/100 ML IVPB IV SCH (00:30)
--- NOTE | 2023-11-29 00:44 | PCM.HP ---
History of Present Illness - Chief Complaint Chief Complaint: Confusion History of Present Illness: is a 78 year old female with hx of HTN, DMII, Hypothyroidism, CKD 4 and dementia here with worsening confusion from her assisted living facility. She was admitted for similar issues November 17. Here, work-up revealed UTI and elevated WBC and thus admitted for this. Also, she does not have a ride back to her facility tonight. She is being seen by me via telemedicine. She is resting comfortably, without acute complaint. She is a poor historian. - Review of Systems All Other Systems: Unable due to dementia Medications & Allergies Home Medications: Home Medication List Buspirone HCl 5 mg [Buspar 5 mg] 5 mg PO BID 12/02/20 [History Confirmed 11/28/23] Pregabalin 50 mg [Lyrica 50MG] 50 mg PO HS 07/06/22 [History Confirmed 11/28/23] Apixaban [Eliquis 5 mg Tablet] 5 mg PO BID 07/16/22 [History Confirmed 11/28/23] Calcium Carbonate 750 mg [Tums EX 750 MG] 2 tab PO BID 08/31/22 [History Confirmed 11/28/23] Ferrous Sulfate 325 mg [Feosol 325 mg] 325 mg PO BID 08/31/22 [History Confirmed 11/28/23] Folic Acid 1 mg [Folate 1 mg] 1 mg PO DAILY 08/31/22 [History Confirmed 11/28/23] Insulin Lispro [Humalog] 20 unit SQ EVENING MEAL 09/28/23 [History Confirmed 11/28/23] Famotidine 20 mg [Pepcid 20 MG] 20 mg PO BID 10/27/23 [History Confirmed 11/28/23] Acetaminophen 325 mg [Tylenol 325 mg] 650 mg PO Q6H PRN PRN 11/15/23 [History Confirmed 11/28/23] Budesonide/Formoterol Fumarate [Budesonide-Formoterol 80-4.5] 2 puffs IH BID PRN 11/15/23 [History Confirmed 11/28/23] Cetirizine HCl 10 mg PO DAILY 11/15/23 [History Confirmed 11/28/23] Cyanocobalamin 500 Mcg [Vitamin B-12 500 MCG] 1,000 mcg PO DAILY 11/15/23 [History Confirmed 11/28/23] Glucagon 1 mg [GlucaGen 1 MG] 1 mg IJ UD 11/15/23 [History Confirmed 11/28/23] Insulin Glargine [Lantus Insulin] 34 unit SQ BREAKFAST 11/15/23 [History Confirmed 11/28/23] Insulin Lispro [Humalog] 14 unit SQ LUNCH 11/15/23 [History Confirmed 11/28/23] Insulin Lispro [Humalog] 16 unit SQ BREAKFAST 11/15/23 [History Confirmed 11/28/23] L. Acidophilus/L.bulgaricus [Floranex Tablet] 1 each PO DAILY 11/15/23 [History Confirmed 11/28/23] Levothyroxine Sodium 100 Mcg [Synthroid 100 Mcg] 200 mcg PO DAILY 11/15/23 [History Confirmed 11/28/23] Montelukast Sodium 10 mg [Singulair 10 MG] 10 mg PO HS 11/15/23 [History Confirmed 11/28/23] Tamsulosin HCl 0.4 mg [Flomax 0.4 MG] 0.4 mg PO HS 11/15/23 [History Confirmed 11/28/23] Ergocalciferol (Vitamin D2) [Vitamin D2] 50,000 units PO WEEKLY 11/28/23 [History Confirmed 11/28/23] Levothyroxine Sodium 25 mcg PO DAILY 11/28/23 [History Confirmed 11/28/23] Allergies/Adverse Reactions: Allergies Allergy/AdvReac Type Severity Reaction Status Date / Time albuterol Allergy Intermediate Swelling Verified 11/28/23 21:07 of Tongue and Lips propranolol [From Inderal LA] Allergy Intermediate Verified 11/28/23 21:07 levofloxacin [From Levaquin] Allergy Unknown Verified 11/28/23 21:07 clonazepam [From Klonopin] Allergy Tightness Verified 11/28/23 21:07 of Throat dronedarone [From Multaq] Allergy Itching Verified 11/28/23 21:07 metoclopramide [From Reglan] Allergy Verified 11/28/23 21:07 propranolol HCl Allergy Swelling Verified 11/28/23 21:07 [From Inderal LA] of Tongue and Lips Sulfa (Sulfonamide Allergy Swelling Verified 11/28/23 21:07 Antibiotics) of Tongue and Lips terfenadine Allergy Verified 11/28/23 21:07 venom-honey bee Allergy Hives Verified 11/28/23 21:07 [bee venom (honey bee)] wheat Allergy Verified 11/28/23 21:07 zanamivir Allergy Swelling Verified 11/28/23 21:07 [From Relenza Diskhaler] of Tongue and Lips cilostazol [From Pletal] AdvReac Severe Swelling Verified 11/28/23 21:07 of Tongue and Lips ticagrelor [From Brilinta] AdvReac Severe Swelling Verified 11/28/23 21:07 of Tongue and Lips - Past Medical History Past Medical History: Yes Neurological History: TIA, Peripheral Neuropathy ENT History: Other Cardiac History: Arrhythmia, Congestive Heart Failure, High Cholesterol, Hypertension, Myocardial Infarction ([place]) Respiratory History: CHF, COPD Endocrine Medical History: Diabetes Type II, Hypothyroidism Musculoskelatal History: No Pertinent History GI Medical History: Other, GERD History: No Pertinent History Pyscho-Social History: Anxiety Reproductive Disorders: Breast Cancer Comment: right eye retinal scratch November 2020, NEUROPATHY - Past Surgical History Past Surgical History: Yes Neuro Surgical History: No Pertinent History Cardiac History: Other Respiratory Surgery: No Pertinent History GI Surgical History: Hernia Repair Genitourinary Surgical Hx: No Pertinent History Musculskeletal Surgical Hx: No Pertinent History Female Surgical History: Mastectomy, Lumpectomy Other Surgical History: left mastectomy 1993, right lumpectomy, right thyroid removed, left thyroid removed with goiter, pubic mass, left knee scope, valve replacement Significant Family History: no pertinent family hx - Social History Smoking Status: Never smoker Exposure to second hand smoke: No Alcohol: None Drug Use: none - Social Determinants of Health Will the patient participate in the screening: Yes Do you worry about a steady place to live?: No Do you have any problems with any of the following?: No known problems In the past 12 months,have you had to go without utilities?: No Have you or anyone in your house had to go without enough: No Transportation Issues: No Has anyone in your support network made you feel unsafe?: No Does the patient want assistance with any of the above?: No 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 - Physical Exam Vital Signs: Vital Signs - 24 hr Temp Pulse Resp BP BP Pulse Ox 11/29/23 00:09 97 11/29/23 00:00 86 24 154/84 97 11/28/23 23:50 82 18 135/82 97 11/28/23 23:40 88 24 162/98 97 11/28/23 23:39 98 H 24 167/105 98 11/28/23 23:30 86 24 171/129 97 11/28/23 23:20 95 H 23 190/104 95 11/28/23 23:15 88 2 L 179/115 97 11/28/23 23:00 101 H 29 H 175/112 97 11/28/23 22:30 85 24 177/107 97 11/28/23 22:13 86 22 157/108 96 11/28/23 22:10 89 36 H 157/108 98 11/28/23 21:39 97 11/28/23 20:47 98.2 F 92 H 18 171/108 97 General Appearance: no apparent distress, alert Neurologic Exam: alert, cooperative Eye Exam: PERRL/EOMI Ears, Nose, Throat Exam: normal ENT inspection Neck Exam: normal inspection Respiratory Exam: normal breath sounds, airway intact Cardiovascular Exam: regular rate/rhythm, normal heart sounds Gastrointestinal/Abdomen Exam: soft, normal bowel sounds Pelvic Exam: deferred Rectal Exam: deferred Extremity Exam: normal inspection Skin Exam: normal color Results - Labs Lab/Micro Results: Lab Results-Last 24 Hours 11/28/23 11/28/23 11/28/23 Range/Units 21:50 21:50 21:50 WBC 16.3 H (4.0-10.5) x10^3/uL RBC 4.35 (4.1-5.4) x10^6/uL Hgb 13.1 (12.0-16.0) g/dL Hct 38.2 (35-47) % MCV 87.8 (78-100) fL MCH 30.1 (26-32) pg MCHC 34.3 (32-36) g/dL RDW 13.7 (11.5-14.0) % Plt Count 365 (150-450) x10^3/uL MPV 10.7 (7.5-11.0) fL Gran % 85.3 H (36.0-66.0) % Immature Gran % (Auto) 0.4 (0.00-0.4) % Nucleat RBC Rel Count 0.0 (0.00-0.1) % Eos # (Auto) 0.08 (0-0.5) x10^3/uL Immature Gran # (Auto) 0.06 H (0.00-0.03) x10^3u/L Absolute Lymphs (auto) 1.02 (1.0-4.6) x10^3/uL Absolute Monos (auto) 1.18 (0.0-1.3) x10^3/uL Absolute Nucleated RBC 0.00 (0.00-0.01) x10^3u/L Lymphocytes % 6.3 L (24.0-44.0) % Monocytes % 7.2 (0.0-12.0) % Eosinophils % 0.5 (0.00-5.0) % Basophils % 0.3 (0.0-0.4) % Absolute Granulocytes 13.91 H (1.4-6.9) x10^3/uL Basophils # 0.05 (0-0.4) x10^3/uL Sodium 136 (135-145) mmol/L Potassium 3.8 (3.5-5.1) mmol/L Chloride 100 (98-107) mmol/L Carbon Dioxide 21 L (22-30) mmol/L Anion Gap 19.1 H (5-15) MEQ/L BUN 36 H (7-17) mg/dL Creatinine 2.62 H (0.52-1.04) mg/dL Estimated GFR 18.2 ML/MIN Glucose 90 (74-106) mg/dL Calcium 7.1 L (8.4-10.2) mg/dL Magnesium 1.6 (1.6-2.3) mg/dL Total Bilirubin 0.50 (0.2-1.3) mg/dL AST 23 (14-36) U/L ALT 18 (0-35) U/L Alkaline Phosphatase 79 (38-126) U/L Ammonia (9-30) umol/L Troponin I 0.050 H* (0.000-0.033) ng/mL Serum Total Protein 8.3 H (6.3-8.2) g/dL Albumin 4.3 (3.5-5.0) g/dL Urine Color (Yellow) Urine Appearance (Clear) Urine pH (4.6-8.0) Ur Specific [employer] (1.005-1.030) Urine Protein (Negative) Urine Glucose (UA) (Negative) mg/dL Urine Ketones (Negative) Urine Blood (Negative) Urine Nitrite (Negative) Urine Bilirubin (Negative) Urine Urobilinogen (0.2) mg/dL Ur Leukocyte Esterase (Negative) U Hyaline Cast (Auto) (0-2) /LPF Urine Microscopic RBC (0-5) /HPF Urine Microscopic WBC (0-5) /HPF Ur Epithelial Cells (None Seen) /HPF Urine Bacteria (None Seen) /HPF Urine Culture Reflexed (NO) 11/28/23 11/28/23 Range/Units 21:50 22:11 WBC (4.0-10.5) x10^3/uL RBC (4.1-5.4) x10^6/uL Hgb (12.0-16.0) g/dL Hct (35-47) % MCV (78-100) fL MCH (26-32) pg MCHC (32-36) g/dL RDW (11.5-14.0) % Plt Count (150-450) x10^3/uL MPV (7.5-11.0) fL Gran % (36.0-66.0) % Immature Gran % (Auto) (0.00-0.4) % Nucleat RBC Rel Count (0.00-0.1) % Eos # (Auto) (0-0.5) x10^3/uL Immature Gran # (Auto) (0.00-0.03) x10^3u/L Absolute Lymphs (auto) (1.0-4.6) x10^3/uL Absolute Monos (auto) (0.0-1.3) x10^3/uL Absolute Nucleated RBC (0.00-0.01) x10^3u/L Lymphocytes % (24.0-44.0) % Monocytes % (0.0-12.0) % Eosinophils % (0.00-5.0) % Basophils % (0.0-0.4) % Absolute Granulocytes (1.4-6.9) x10^3/uL Basophils # (0-0.4) x10^3/uL Sodium (135-145) mmol/L Potassium (3.5-5.1) mmol/L Chloride (98-107) mmol/L Carbon Dioxide (22-30) mmol/L Anion Gap (5-15) MEQ/L BUN (7-17) mg/dL Creatinine (0.52-1.04) mg/dL Estimated GFR ML/MIN Glucose (74-106) mg/dL Calcium (8.4-10.2) mg/dL Magnesium (1.6-2.3) mg/dL Total Bilirubin (0.2-1.3) mg/dL AST (14-36) U/L ALT (0-35) U/L Alkaline Phosphatase (38-126) U/L Ammonia < 9 L (9-30) umol/L Troponin I (0.000-0.033) ng/mL Serum Total Protein (6.3-8.2) g/dL Albumin (3.5-5.0) g/dL Urine Color Yellow (Yellow) Urine Appearance Cloudy A (Clear) Urine pH 5.0 (4.6-8.0) Ur Specific [employer] 1.020 (1.005-1.030) Urine Protein >=1000 A (Negative) Urine Glucose (UA) >=1000 A (Negative) mg/dL Urine Ketones Negative (Negative) Urine Blood Negative (Negative) Urine Nitrite Negative (Negative) Urine Bilirubin Negative (Negative) Urine Urobilinogen 0.2 (0.2) mg/dL Ur Leukocyte Esterase Negative (Negative) U Hyaline Cast (Auto) 3-5 A (0-2) /LPF Urine Microscopic RBC 0-2 (0-5) /HPF Urine Microscopic WBC 11-20 A (0-5) /HPF Ur Epithelial Cells Moderate A (None Seen) /HPF Urine Bacteria Many A (None Seen) /HPF Urine Culture Reflexed YES (NO) - Radiology Impressions Radiology Exams & Impressions: Radiology Procedures Category Date Time Status HEAD WITHOUT CONTRAST [CT] Stat Exams 11/28/23 21:28 Completed Assessment/Plan (1) Encephalopathy acute Current Visit: Yes Status: Acute Assessment & Plan: Worse from her dementia baseline due to UTI. Treating UTI and monitoring. CT head negative. Ammonia level normal. Ca is a bit on the low side. Na normal. BG not low Code(s): G93.40 - ENCEPHALOPATHY, UNSPECIFIED (2) UTI (urinary tract infection) Current Visit: Yes Status: Acute Assessment & Plan: UA noted + WBCs and many bacteria. On Rocephin1 mg IV daily Code(s): N39.0 - URINARY TRACT INFECTION, SITE NOT SPECIFIED (3) CKD (chronic kidney disease) stage 4, GFR 15-29 ml/min Current Visit: Yes Status: Acute Assessment & Plan: Appears to be baseline with GFR raning 16- 27. Cr 2.6, eGFR 18. Not fluid overloaded, so ok with NS at 75ml/hr. Dose all meds accordingly. Avoid IV contrast, NSAIDs, prolonged hypotension Code(s): N18.4 - CHRONIC KIDNEY DISEASE, STAGE 4 (SEVERE) (4) Essential (primary) hypertension Current Visit: Yes Status: Acute Assessment & Plan: BP is noted, monitor and react accordingly Code(s): I10 - ESSENTIAL (PRIMARY) HYPERTENSION (5) DM II (diabetes mellitus, type II), controlled Current Visit: Yes Status: Acute Assessment & Plan: ADA diet, SSI, accucheck, home Lantus Code(s): E11.9 - TYPE 2 DIABETES MELLITUS WITHOUT COMPLICATIONS (6) Leukocytosis Current Visit: No Status: Acute Qualifiers: Assessment & Plan: WBC 16K. Likely due to UTI. Monitor as we treat UTI. She is not septic on exam Code(s): D72.829 - ELEVATED WHITE BLOOD CELL COUNT, UNSPECIFIED Telemedicine Encounter - Telemedicine Encounter Telemedicine Encounter: The entirety of this encounter was performed via Telemedicine" She was unable to give me verbal consent due to her dementia.
[2023-11-29] MEDS: APRESOLINE 20 MG/ML INJ IV PRN (06:31)
[2023-11-29] MEDS ORDERED: Advair Hfa 230/21 Mcg COMMON CANISTER IH PRN (06:53)
[2023-11-29] MEDS: Advair Hfa 230/21 Mcg COMMON CANISTER IH SCH ×2 (07:46→19:35)
[2023-11-29 08:41] LABS: Absolute Neutrophil Ct (ANC) 9.32 x10^3/uL (1.4-6.9); BASOPHIL % 0.4 % (0.0-0.4); Basophil (Absolute #) 0.05 x10^3/uL (0-0.4); Eosinophil % 0.8 % (0.00-5.0); Hemoglobin 12.5 g/dL (12.0-16.0); IMMATURE GRAN # 0.05 x10^3u/L (0.00-0.03); IMMATURE GRAN % 0.4 % (0.00-0.4); Lymphocyte (Absolute #) 1.39 x10^3/uL (1.0-4.6); Lymphocytes % 11.7 % (24.0-44.0); Mean Cell Volume 89.6 fL (78-100); Mean Corpuscular Hemoglobin 30.3 pg (26-32); Mean Corpuscular Hgb Concent. 33.8 g/dL (32-36); Mean Platelet Volume 11.2 fL (7.5-11.0); Monocyte (Absolute #) 0.98 x10^3/uL (0.0-1.3); Monocytes % 8.2 % (0.0-12.0); Neutrophil % 78.5 % (36.0-66.0); Platelet Count 306 x10^3/uL (150-450); Red Blood Count 4.13 x10^6/uL (4.1-5.4); White Blood Count 11.9 x10^3/uL (4.0-10.5)
[2023-11-29 09:10] LABS: ALBUMIN 3.4 g/dL (3.5-5.0); BILIRUBIN,TOTAL 0.5 mg/dL (0.2-1.3); Calcium 6.5 mg/dL (8.4-10.2); Creatinine 1 1.97 mg/dL (0.52-1.04); EST GLOMERULAR FILTRATION RATE 25.6 ML/MIN; Potassium 3.3 mmol/L (3.5-5.1); Total Protein 6.7 g/dL (6.3-8.2)
[2023-11-29] MEDS: Lantus Insulin SQ SCH (09:22)
[2023-11-29] MEDS: Acidophilus TABLET PO SCH (09:23)
[2023-11-29] MEDS: SYNTHROID 100 MCG PO SCH (09:23)
[2023-11-29] MEDS: FEOSOL 325 MG PO SCH (09:23)
[2023-11-29] MEDS: FOLATE 1 MG PO SCH (09:23)
[2023-11-29] MEDS: ELIQUIS 2.5 MG TABLET PO SCH (09:24)
[2023-11-29] MEDS: BUSPAR 5 MG PO SCH (09:24)
[2023-11-29] MEDS: Vitamin B-12 500 MCG PO SCH (09:24)
[2023-11-29] MEDS: Pepcid 20 MG PO SCH (09:24)
[2023-11-29] MEDS: NORVASC 5 MG PO SCH (09:24)
[2023-11-29] MEDS: CLARITIN 10 MG PO SCH (09:25)
[2023-11-29] MEDS: VITAMIN D2 PO SCH (09:25)
[2023-11-29] MEDS: Tums EX 750 MG PO SCH (09:25)
[2023-11-29] MEDS: Sodium Chloride 0.9% 1000 ML 1,000 ML IV SCH (09:30)
[2023-11-29] MEDS ORDERED: ACIDOPHILUS PO SCH (10:00)
[2023-11-29] MEDS ORDERED: NON-FORMULARY ITEM (Levothyroxine Sodium [Levothyroxine Sodium] 25 MCG Capsule) PO SCH (10:00)
[2023-11-29] MEDS ORDERED: BULGARICUS PO SCH (10:00)
[2023-11-29] MEDS ORDERED: NON-FORMULARY ITEM (Cetirizine Hcl [Cetirizine Hcl] 10 MG Tablet) PO SCH (10:00)
[2023-11-29] MEDS ORDERED: NON-FORMULARY ITEM (Apixaban*** [Eliquis 5 Mg Tablet***] 5 MG Tablet) PO SCH (10:00)
--- NOTE | 2023-11-29 10:59 | PCM.NOTE ---
Ms. Magana is a 78 year old female admitted 11/29/23 after experiencing confusion at her assisted living facility. Admitted for UTI. Current treatment based on previous cultures showing enterococcus faecium which is sensitive to zyvox. Labs are improving, WBC 11.9<16.9, creat 1.97<2.62. Potassium is low at 3.3, will replenish. Will discuss SNF placement if patient is agreeable.
[2023-11-29] MEDS: ZYVOX PO SCH (11:30)
[2023-11-29] MEDS: Klor Con PO SCH (11:30)
[2023-11-29] MEDS: PHARMACY RENAL DOSING MC ONE (12:02)
[2023-11-29] MEDS: HUMALOG SQ PRN (12:03)
[2023-11-29] MEDS: Lantus Insulin SQ ONE (12:19)
[2023-11-29] MEDS ORDERED: ROCEPHIN 1 GM / 100 ML NaCl 1 GM/100 ML IVPB IV SCH (22:00)
[2023-11-29] MEDS: Flomax 0.4 MG PO SCH (22:26)
[2023-11-29] MEDS: Lyrica 50MG PO SCH (22:26)
[2023-11-29] MEDS: Singulair 10 MG PO SCH (22:26)
[2023-11-30 04:30] VITALS: RESP 16
[2023-11-30 05:07] LABS: Absolute Neutrophil Ct (ANC) 7.66 x10^3/uL (1.4-6.9); BASOPHIL % 0.5 % (0.0-0.4); Basophil (Absolute #) 0.05 x10^3/uL (0-0.4); Eosinophil % 1.8 % (0.00-5.0); Eosinophil (Absolute #) 0.18 x10^3/uL (0-0.5); Hematocrit 37.2 % (35-47); Hemoglobin 12.6 g/dL (12.0-16.0); IMMATURE GRAN # 0.03 x10^3u/L (0.00-0.03); IMMATURE GRAN % 0.3 % (0.00-0.4); Lymphocyte (Absolute #) 1.25 x10^3/uL (1.0-4.6); Lymphocytes % 12.2 % (24.0-44.0); Mean Cell Volume 88.6 fL (78-100); Mean Corpuscular Hgb Concent. 33.9 g/dL (32-36); Mean Platelet Volume 11.4 fL (7.5-11.0); Monocyte (Absolute #) 1.04 x10^3/uL (0.0-1.3); Monocytes % 10.2 % (0.0-12.0); Platelet Count 351 x10^3/uL (150-450); Red Cell Distribution Width 14.5 % (11.5-14.0); White Blood Count 10.2 x10^3/uL (4.0-10.5)
--- NOTE | 2023-11-30 05:16 | PCM.NOTE ---
Date and Time: 11/30/23511 Subjective Assessment: Ms. Magana is a 78 year old female admitted 11/29/23 after experiencing confusion at her assisted living facility. Admitted for UTI. Current treatment based on previous cultures showing enterococcus faecium which is sensitive to zyvox. Objective Data Vital Signs: Vital Signs - 24 hr Temp Pulse Resp BP Pulse Ox 11/30/23 04:00 97.9 F 111 H 16 137/73 96 11/30/23 00:00 97.7 F 65 17 184/104 98 11/29/23 20:00 98.4 F 91 H 19 177/109 99 11/29/23 18:51 91 H 178/106 11/29/23 16:00 99.1 F 107 H 32 H 140/93 99 11/29/23 12:53 107 H 145/96 11/29/23 11:43 97.7 F 92 H 17 180/87 95 11/29/23 07:54 110 H 16 96 11/29/23 06:44 98.8 F 118 H 19 153/105 96 11/29/23 06:25 115 H 153/105 Pain Assessment - Last Documented Pain Intensity 0 Intake and Output: Intake & Output 11/27/23 11/28/23 11/29/23 11/30/23 11:59 11:59 11:59 11:59 Intake Total 401 880 Balance 401 880 Weight 80.1 kg Lab Results: Lab Results-Last 24 Hours 11/29/23 11/29/23 11/29/23 Range/Units 06:27 08:38 08:38 WBC 11.9 H (4.0-10.5) x10^3/uL RBC 4.13 (4.1-5.4) x10^6/uL Hgb 12.5 (12.0-16.0) g/dL Hct 37.0 (35-47) % MCV 89.6 (78-100) fL MCH 30.3 (26-32) pg MCHC 33.8 (32-36) g/dL RDW 14.0 (11.5-14.0) % Plt Count 306 (150-450) x10^3/uL MPV 11.2 H (7.5-11.0) fL Gran % 78.5 H (36.0-66.0) % Immature Gran % (Auto) 0.4 (0.00-0.4) % Nucleat RBC Rel Count 0.0 (0.00-0.1) % Eos # (Auto) 0.10 (0-0.5) x10^3/uL Immature Gran # (Auto) 0.05 H (0.00-0.03) x10^3u/L Absolute Lymphs (auto) 1.39 (1.0-4.6) x10^3/uL Absolute Monos (auto) 0.98 (0.0-1.3) x10^3/uL Absolute Nucleated RBC 0.00 (0.00-0.01) x10^3u/L Lymphocytes % 11.7 L (24.0-44.0) % Monocytes % 8.2 (0.0-12.0) % Eosinophils % 0.8 (0.00-5.0) % Basophils % 0.4 (0.0-0.4) % Absolute Granulocytes 9.32 H (1.4-6.9) x10^3/uL Basophils # 0.05 (0-0.4) x10^3/uL Sodium 136 (135-145) mmol/L Potassium 3.3 L (3.5-5.1) mmol/L Chloride 103 (98-107) mmol/L Carbon Dioxide 22 (22-30) mmol/L Anion Gap 15.0 (5-15) MEQ/L BUN 30 H (7-17) mg/dL Creatinine 1.97 H (0.52-1.04) mg/dL Estimated GFR 25.6 ML/MIN Glucose 136 H (74-106) mg/dL POC Glucometer 104 (74 to 106) mg/dL Calcium 6.5 L (8.4-10.2) mg/dL Total Bilirubin 0.50 (0.2-1.3) mg/dL AST 27 (14-36) U/L ALT 14 (0-35) U/L Alkaline Phosphatase 73 (38-126) U/L NT-Pro-B Natriuret Pep 1310 (<300) pg/mL Serum Total Protein 6.7 (6.3-8.2) g/dL Albumin 3.4 L (3.5-5.0) g/dL 11/29/23 11/29/23 11/29/23 Range/Units 11:28 15:39 18:48 WBC (4.0-10.5) x10^3/uL RBC (4.1-5.4) x10^6/uL Hgb (12.0-16.0) g/dL Hct (35-47) % MCV (78-100) fL MCH (26-32) pg MCHC (32-36) g/dL RDW (11.5-14.0) % Plt Count (150-450) x10^3/uL MPV (7.5-11.0) fL Gran % (36.0-66.0) % Immature Gran % (Auto) (0.00-0.4) % Nucleat RBC Rel Count (0.00-0.1) % Eos # (Auto) (0-0.5) x10^3/uL Immature Gran # (Auto) (0.00-0.03) x10^3u/L Absolute Lymphs (auto) (1.0-4.6) x10^3/uL Absolute Monos (auto) (0.0-1.3) x10^3/uL Absolute Nucleated RBC (0.00-0.01) x10^3u/L Lymphocytes % (24.0-44.0) % Monocytes % (0.0-12.0) % Eosinophils % (0.00-5.0) % Basophils % (0.0-0.4) % Absolute Granulocytes (1.4-6.9) x10^3/uL Basophils # (0-0.4) x10^3/uL Sodium (135-145) mmol/L Potassium 3.8 (3.5-5.1) mmol/L Chloride (98-107) mmol/L Carbon Dioxide (22-30) mmol/L Anion Gap (5-15) MEQ/L BUN (7-17) mg/dL Creatinine (0.52-1.04) mg/dL Estimated GFR ML/MIN Glucose (74-106) mg/dL POC Glucometer 248 H 229 H (74 to 106) mg/dL Calcium (8.4-10.2) mg/dL Total Bilirubin (0.2-1.3) mg/dL AST (14-36) U/L ALT (0-35) U/L Alkaline Phosphatase (38-126) U/L NT-Pro-B Natriuret Pep (<300) pg/mL Serum Total Protein (6.3-8.2) g/dL Albumin (3.5-5.0) g/dL 11/29/23 Range/Units 21:00 WBC (4.0-10.5) x10^3/uL RBC (4.1-5.4) x10^6/uL Hgb (12.0-16.0) g/dL Hct (35-47) % MCV (78-100) fL MCH (26-32) pg MCHC (32-36) g/dL RDW (11.5-14.0) % Plt Count (150-450) x10^3/uL MPV (7.5-11.0) fL Gran % (36.0-66.0) % Immature Gran % (Auto) (0.00-0.4) % Nucleat RBC Rel Count (0.00-0.1) % Eos # (Auto) (0-0.5) x10^3/uL Immature Gran # (Auto) (0.00-0.03) x10^3u/L Absolute Lymphs (auto) (1.0-4.6) x10^3/uL Absolute Monos (auto) (0.0-1.3) x10^3/uL Absolute Nucleated RBC (0.00-0.01) x10^3u/L Lymphocytes % (24.0-44.0) % Monocytes % (0.0-12.0) % Eosinophils % (0.00-5.0) % Basophils % (0.0-0.4) % Absolute Granulocytes (1.4-6.9) x10^3/uL Basophils # (0-0.4) x10^3/uL Sodium (135-145) mmol/L Potassium (3.5-5.1) mmol/L Chloride (98-107) mmol/L Carbon Dioxide (22-30) mmol/L Anion Gap (5-15) MEQ/L BUN (7-17) mg/dL Creatinine (0.52-1.04) mg/dL Estimated GFR ML/MIN Glucose (74-106) mg/dL POC Glucometer 159 H (74 to 106) mg/dL Calcium (8.4-10.2) mg/dL Total Bilirubin (0.2-1.3) mg/dL AST (14-36) U/L ALT (0-35) U/L Alkaline Phosphatase (38-126) U/L NT-Pro-B Natriuret Pep (<300) pg/mL Serum Total Protein (6.3-8.2) g/dL Albumin (3.5-5.0) g/dL Radiology Exams: Radiology Procedures Category Date Time Status HEAD WITHOUT CONTRAST [CT] Stat Exams 11/28/23 21:28 Completed Multi-Disciplinary Progress Notes: Multi-Disciplinary Progress Notes 11/29/23 19:50 Respiratory Note by Daily Camara PATIENT REFUSING PULSE OXIMETRY AND VIJAYA RIVASI. Initialized on 11/29/23 19:50 - END OF NOTE 11/29/23 12:03 Case Management Note by Funmi Rivas S/W WITH PATIENT SON, DIANNE, PER PATIENT REQUEST RE: CONCERNS ABOUT PATIENT RETURN TO [facility]. SUGGESTED ADDITIONAL SUPPORT FOR PATIENT AT [facility]. HE STATES HE WILL RESEARCH ADDITIONAL HELP AND WILL SPEAK WITH [facility] AND THE PATIENT. SPOKE WITH JAYLEEN AT [facility] AT [facility] AND SHE VOICED CONCERNS ABOUT PATIENT SAFETY AT [facility]. [facility] THEY DO NOT HAVE NURSES AT FACILITY AT NIGHT OR WEEKENDS AND PATIENT WAS CONFUSED ABOUT INSULIN OVER [place] AND [facility] DID NOT COME UNTIL TUESDAY TO ADMIT PATIENT TO SERVICES. THE FACILITY IS CONCERNED ABOUT THE PATIENT RETURNING TO THE [facility]. THEY WERE NOTIFIED PATIENT NOT CURRENTLY QUALIFYING FOR REHAB STAY Initialized on 11/29/23 12:03 - END OF NOTE 11/29/23 11:39 Case Management Note by Funmi Rivas PATIENT HAS [facility]. THEY WERE NOTIFIED PATIENT HERE OBS. THEY WILL NEED NOTIFED AT TIME OF DC AT [phone]. THEY WILL NEED FAXED THE INSTRUCTIONS, DC MED LIST, AND DC SUMMARY(IF AVAILABLE) TO [phone] Initialized on 11/29/23 11:39 - END OF NOTE Assessment/Plan (1) Encephalopathy acute Current Visit: Yes Status: Acute Assessment & Plan: -Dementia at baseline, bouts of confusion, was A&O x 3 during interview -CT head negative -UTI on Zyvox, cultures pending, may be the cause for increased confusion Code(s): G93.40 - ENCEPHALOPATHY, UNSPECIFIED (2) CKD (chronic kidney disease) stage 4, GFR 15-29 ml/min Current Visit: Yes Status: Acute Code(s): N18.4 - CHRONIC KIDNEY DISEASE, STAGE 4 (SEVERE) (3) DM II (diabetes mellitus, type II), controlled Current Visit: Yes Status: Acute Code(s): E11.9 - TYPE 2 DIABETES MELLITUS WITHOUT COMPLICATIONS (4) HTN (hypertension) Current Visit: Yes Status: Acute Code(s): I10 - ESSENTIAL (PRIMARY) HYPERTENSION (5) Leukocytosis Current Visit: No Status: Acute Qualifiers: Code(s): D72.829 - ELEVATED WHITE BLOOD CELL COUNT, UNSPECIFIED
[2023-11-30 05:22] LABS: ALBUMIN 3.9 g/dL (3.5-5.0); ANION GAP 15.7 MEQ/L (5-15); BILIRUBIN,TOTAL 0.8 mg/dL (0.2-1.3); Calcium 7.4 mg/dL (8.4-10.2); Creatinine 1 2.4 mg/dL (0.52-1.04); EST GLOMERULAR FILTRATION RATE 20.2 ML/MIN; Potassium 3.6 mmol/L (3.5-5.1); Total Protein 7.7 g/dL (6.3-8.2)
[2023-11-30] MEDS ORDERED: Sodium Chloride 0.9% 1000 ML 1,000 ML IV SCH (06:00)
[2023-11-30 09:44] VITALS: O2SAT 95
--- NOTE | 2023-11-30 10:30 | PCM.DS ---
Discharge Summary Date of Admission: 11/29/23 00:27 Date of Discharge: 11/30/23 Admitting Physician: CHESTER HESTER DO Primary Care Provider: ACE HINTON Allergies Allergies albuterol Allergy (Intermediate, Verified 11/28/23 21:07) Swelling of Tongue and Lips propranolol [From Inderal LA] Allergy (Intermediate, Verified 11/28/23 21:07) red face and ears levofloxacin [From Levaquin] Allergy (Unknown, Verified 11/28/23 21:07) clonazepam [From Klonopin] Allergy (Verified 11/28/23 21:07) Tightness of Throat tongue swollen dronedarone [From Multaq] Allergy (Verified 11/28/23 21:07) Itching metoclopramide [From Reglan] Allergy (Verified 11/28/23 21:07) propranolol HCl [From Inderal LA] Allergy (Verified 11/28/23 21:07) Swelling of Tongue and Lips red face and ears Sulfa (Sulfonamide Antibiotics) Allergy (Verified 11/28/23 21:07) Swelling of Tongue and Lips throat swell,ears red terfenadine Allergy (Verified 11/28/23 21:07) venom-honey bee [bee venom (honey bee)] Allergy (Verified 11/28/23 21:07) Hives large hives wheat Allergy (Verified 11/28/23 21:07) zanamivir [From Relenza Diskhaler] Allergy (Verified 11/28/23 21:07) Swelling of Tongue and Lips throat tightness cilostazol [From Pletal] Adverse Reaction (Severe, Verified 11/28/23 21:07) Swelling of Tongue and Lips ticagrelor [From Brilinta] Adverse Reaction (Severe, Verified 11/28/23 21:07) Swelling of Tongue and Lips Hospital Summary - Hospital Course Hospital Course: Ms. Magana is a 78 year old female admitted 11/29/23 after experiencing confusion at her assisted living facility. Admitted for UTI. CT head negative. Current treatment based on previous cultures showing enterococcus faecium which is sensitive to zyvox. Patient is now at baseline with mentation and labs. Stable for discharge. Patient will need to hold buspar while taking Zyvox. Discharge Note New Diagnosis: UTI New Medications:Zyvox; Hold Buspar while taking Zyvox Follow Up: PCP Latest Assessment & Plan (1) Encephalopathy acute Current Visit: Yes Status: Acute Assessment & Plan: Worse from her dementia baseline due to UTI. Treating UTI and monitoring. CT head negative. Ammonia level normal. Ca is a bit on the low side. Na normal. BG not low 11/29: -At baseline Code(s): G93.40 - ENCEPHALOPATHY, UNSPECIFIED (2) UTI (urinary tract infection) Current Visit: Yes Status: Acute Assessment & Plan: UA noted + WBCs and many bacteria. On Rocephin1 mg IV daily 11/29: previous culture with enterococcus faecium which is sensitive to zyvox. Will continue as op Code(s): N39.0 - URINARY TRACT INFECTION, SITE NOT SPECIFIED (3) CKD (chronic kidney disease) stage 4, GFR 15-29 ml/min Current Visit: Yes Status: Acute Assessment & Plan: Appears to be baseline with GFR raning 16- 27. Cr 2.6, eGFR 18. Not fluid ove rloaded, so ok with NS at 75ml/hr. Dose all meds accordingly. Avoid IV contrast, NSAIDs, prolonged hypotension Code(s): N18.4 - CHRONIC KIDNEY DISEASE, STAGE 4 (SEVERE) (4) Essential (primary) hypertension Current Visit: Yes Status: Acute Assessment & Plan: BP is noted, monitor and react accordingly Code(s): I10 - ESSENTIAL (PRIMARY) HYPERTENSION (5) DM II (diabetes mellitus, type II), controlled Current Visit: Yes Status: Acute Assessment & Plan: ADA diet, SSI, accucheck, home Lantus Code(s): E11.9 - TYPE 2 DIABETES MELLITUS WITHOUT COMPLICATIONS (6) Leukocytosis Current Visit: No Status: Acute Qualifiers: Assessment & Plan: WBC 16K. Likely due to UTI. Monitor as we treat UTI. She is not septic on exam 11/29: -Resolved Code(s): D72.829 - ELEVATED WHITE BLOOD CELL COUNT, UNSPECIFIED I spent 35 minutes [id number] with the patient on the day of discharge performing discharge exam, discussing hospital stay and discharge instructions with patient and caregivers, preparation of discharge records, prescriptions & referral forms and addressing any questions/concerns the patient had as docu mented above. - Vitals & Intake/Output Vital Signs: Vital Signs Temperature 98.4 F 11/30/23 06:52 Pulse Rate 99 H 11/30/23 07:23 Respiratory Rate 16 11/30/23 07:23 Blood Pressure 169/87 11/30/23 06:52 O2 Sat by Pulse Oximetry 95 11/30/23 07:23 Intake & Output: Intake & Output 11/27/23 11/28/23 11/29/23 11/30/23 11:59 11:59 11:59 11:59 Intake Total 401 1360 Balance 401 1360 Weight 80.1 kg - Lab Result Diagrams: 11/30/23 04:15 11/30/23 04:15 Lab Results-Last 24 Hrs: Lab Results-Last 24 Hours 11/29/23 11/29/23 11/29/23 Range/Units 11:28 15:39 18:48 WBC (4.0-10.5) x10^3/uL RBC (4.1-5.4) x10^6/uL Hgb (12.0-16.0) g/dL Hct (35-47) % MCV (78-100) fL MCH (26-32) pg MCHC (32-36) g/dL RDW (11.5-14.0) % Plt Count (150-450) x10^3/uL MPV (7.5-11.0) fL Gran % (36.0-66.0) % Immature Gran % (Auto) (0.00-0.4) % Nucleat RBC Rel Count (0.00-0.1) % Eos # (Auto) (0-0.5) x10^3/uL Immature Gran # (Auto) (0.00-0.03) x10^3u/L Absolute Lymphs (auto) (1.0-4.6) x10^3/uL Absolute Monos (auto) (0.0-1.3) x10^3/uL Absolute Nucleated RBC (0.00-0.01) x10^3u/L Lymphocytes % (24.0-44.0) % Monocytes % (0.0-12.0) % Eosinophils % (0.00-5.0) % Basophils % (0.0-0.4) % Absolute Granulocytes (1.4-6.9) x10^3/uL Basophils # (0-0.4) x10^3/uL Sodium (135-145) mmol/L Potassium 3.8 (3.5-5.1) mmol/L Chloride (98-107) mmol/L Carbon Dioxide (22-30) mmol/L Anion Gap (5-15) MEQ/L BUN (7-17) mg/dL Creatinine (0.52-1.04) mg/dL Estimated GFR ML/MIN Glucose (74-106) mg/dL POC Glucometer 248 H 229 H (74 to 106) mg/dL Calcium (8.4-10.2) mg/dL Magnesium (1.6-2.3) mg/dL Total Bilirubin (0.2-1.3) mg/dL AST (14-36) U/L ALT (0-35) U/L Alkaline Phosphatase (38-126) U/L Serum Total Protein (6.3-8.2) g/dL Albumin (3.5-5.0) g/dL 11/29/23 11/30/23 11/30/23 Range/Units 21:00 04:15 04:15 WBC 10.2 (4.0-10.5) x10^3/uL RBC 4.20 (4.1-5.4) x10^6/uL Hgb 12.6 (12.0-16.0) g/dL Hct 37.2 (35-47) % MCV 88.6 (78-100) fL MCH 30.0 (26-32) pg MCHC 33.9 (32-36) g/dL RDW 14.5 H (11.5-14.0) % Plt Count 351 (150-450) x10^3/uL MPV 11.4 H (7.5-11.0) fL Gran % 75.0 H (36.0-66.0) % Immature Gran % (Auto) 0.3 (0.00-0.4) % Nucleat RBC Rel Count 0.0 (0.00-0.1) % Eos # (Auto) 0.18 (0-0.5) x10^3/uL Immature Gran # (Auto) 0.03 (0.00-0.03) x10^3u/L Absolute Lymphs (auto) 1.25 (1.0-4.6) x10^3/uL Absolute Monos (auto) 1.04 (0.0-1.3) x10^3/uL Absolute Nucleated RBC 0.00 (0.00-0.01) x10^3u/L Lymphocytes % 12.2 L (24.0-44.0) % Monocytes % 10.2 (0.0-12.0) % Eosinophils % 1.8 (0.00-5.0) % Basophils % 0.5 (0.0-0.4) % Absolute Granulocytes 7.66 H (1.4-6.9) x10^3/uL Basophils # 0.05 (0-0.4) x10^3/uL Sodium (135-145) mmol/L Potassium (3.5-5.1) mmol/L Chloride (98-107) mmol/L Carbon Dioxide (22-30) mmol/L Anion Gap (5-15) MEQ/L BUN (7-17) mg/dL Creatinine (0.52-1.04) mg/dL Estimated GFR ML/MIN Glucose (74-106) mg/dL POC Glucometer 159 H (74 to 106) mg/dL Calcium (8.4-10.2) mg/dL Magnesium 1.6 (1.6-2.3) mg/dL Total Bilirubin (0.2-1.3) mg/dL AST (14-36) U/L ALT (0-35) U/L Alkaline Phosphatase (38-126) U/L Serum Total Protein (6.3-8.2) g/dL Albumin (3.5-5.0) g/dL 11/30/23 11/30/23 Range/Units 04:15 07:20 WBC (4.0-10.5) x10^3/uL RBC (4.1-5.4) x10^6/uL Hgb (12.0-16.0) g/dL Hct (35-47) % MCV (78-100) fL MCH (26-32) pg MCHC (32-36) g/dL RDW (11.5-14.0) % Plt Count (150-450) x10^3/uL MPV (7.5-11.0) fL Gran % (36.0-66.0) % Immature Gran % (Auto) (0.00-0.4) % Nucleat RBC Rel Count (0.00-0.1) % Eos # (Auto) (0-0.5) x10^3/uL Immature Gran # (Auto) (0.00-0.03) x10^3u/L Absolute Lymphs (auto) (1.0-4.6) x10^3/uL Absolute Monos (auto) (0.0-1.3) x10^3/uL Absolute Nucleated RBC (0.00-0.01) x10^3u/L Lymphocytes % (24.0-44.0) % Monocytes % (0.0-12.0) % Eosinophils % (0.00-5.0) % Basophils % (0.0-0.4) % Absolute Granulocytes (1.4-6.9) x10^3/uL Basophils # (0-0.4) x10^3/uL Sodium 137 (135-145) mmol/L Potassium 3.6 (3.5-5.1) mmol/L Chloride 105 (98-107) mmol/L Carbon Dioxide 20 L (22-30) mmol/L Anion Gap 15.7 H (5-15) MEQ/L BUN 30 H (7-17) mg/dL Creatinine 2.40 H (0.52-1.04) mg/dL Estimated GFR 20.2 ML/MIN Glucose 132 H (74-106) mg/dL POC Glucometer 142 H (74 to 106) mg/dL Calcium 7.4 L (8.4-10.2) mg/dL Magnesium (1.6-2.3) mg/dL Total Bilirubin 0.80 (0.2-1.3) mg/dL AST 22 (14-36) U/L ALT 15 (0-35) U/L Alkaline Phosphatase 78 (38-126) U/L Serum Total Protein 7.7 (6.3-8.2) g/dL Albumin 3.9 (3.5-5.0) g/dL Micro Results-Entire Visit: Microbiology 11/28/23 22:11 Urine Culture - Final Catherized MIXED JOSHUA; 3 OR MORE TYPES. NO PREDOMINANT ORGANISM. NO FURTHER WORKUP. PLEASE RESUBMIT IF CLINICALLY INDICATED. 11/28/23 21:50 Blood Culture - Preliminary Blood Accuchecks Date 11/30/23 Date 11/29/23 Date 11/29/23 Date 11/29/23 Time 07:27 Time 21:00 Time 15:45 Time 11:43 - Radiology Exams Ordered Rad Exams-Entire Visit: Radiology Procedures Category Date Time Status HEAD WITHOUT CONTRAST [CT] Stat Exams 11/28/23 21:28 Completed - Procedures and Test Procedures and Tests throughout Hospitalization: Therapy Orders & Screens 11/29/23 07:54 Respiratory Therapy Assessment DAILY Comment: Diagnosis: CONFUSION, UTI, CHRONIC KIDNEY DISEASE, HTN, CHRONICALLY ELEVATED TROPONINS 11/29/23 09:38 PT Eval & Treat ( Order) ONCE Reason for Eval:: eval for safe return to [place] Diagnosis: CONFUSION, UTI, CHRONIC KIDNEY DISEASE, HTN, CHRONICALLY ELEVATED TROPONINS Discharge Exam General Appearance: no apparent distress Neurologic Exam: alert, oriented x 3, cooperative Eye Exam: PERRL Ears, Nose, Throat Exam: moist mucous membranes Neck Exam: normal inspection Respiratory Exam: normal breath sounds, lungs clear Cardiovascular Exam: regular rate/rhythm, normal heart sounds Gastrointestinal/Abdomen Exam: soft, normal bowel sounds Pelvic Exam: deferred Rectal Exam: deferred Back Exam: normal inspection Extremity Exam: normal inspection Skin Exam: pale Final Diagnosis/Problem List - Final Discharge Diagnosis/Problem (1) Encephalopathy acute Current Visit: Yes Status: Acute Code(s): G93.40 - ENCEPHALOPATHY, UNSPECIFIED (2) Leukocytosis Current Visit: No Status: Acute Code(s): D72.829 - ELEVATED WHITE BLOOD CELL COUNT, UNSPECIFIED (3) CKD (chronic kidney disease) stage 4, GFR 15-29 ml/min Current Visit: Yes Status: Acute Code(s): N18.4 - CHRONIC KIDNEY DISEASE, STAGE 4 (SEVERE) (4) DM II (diabetes mellitus, type II), controlled Current Visit: Yes Status: Acute Code(s): E11.9 - TYPE 2 DIABETES MELLITUS WITHOUT COMPLICATIONS (5) HTN (hypertension) Current Visit: Yes Status: Acute Code(s): I10 - ESSENTIAL (PRIMARY) HYPERTENSION (6) UTI (urinary tract infection) Current Visit: Yes Status: Acute Code(s): N39.0 - URINARY TRACT INFECTION, SITE NOT SPECIFIED - Discharge Disposition: Home, Self-Care Condition: Stable Prescriptions: New Amlodipine Besylate 5 mg [Norvasc 5 mg] 5 mg PO QAM 30 Days #30 tablet Continue Pregabalin 50 mg [Lyrica 50MG] 50 mg PO HS Apixaban [Eliquis 5 mg Tablet] 5 mg PO BID Folic Acid 1 mg [Folate 1 mg] 1 mg PO DAILY Ferrous Sulfate 325 mg [Feosol 325 mg] 325 mg PO BID Calcium Carbonate 750 mg [Tums EX 750 MG] 2 tab PO BID Insulin Lispro [Humalog] 20 unit SQ EVENING MEAL Famotidine 20 mg [Pepcid 20 MG] 20 mg PO BID Levothyroxine Sodium 100 Mcg [Synthroid 100 Mcg] 200 mcg PO DAILY Glucagon 1 mg [GlucaGen 1 MG] 1 mg IJ UD Tamsulosin HCl 0.4 mg [Flomax 0.4 MG] 0.4 mg PO HS Cyanocobalamin 500 Mcg [Vitamin B-12 500 MCG] 1,000 mcg PO DAILY Montelukast Sodium 10 mg [Singulair 10 MG] 10 mg PO HS L. Acidophilus/L.bulgaricus [Floranex Tablet] 1 each PO DAILY Insulin Lispro [Humalog] 14 unit SQ LUNCH Insulin Glargine [Lantus Insulin] 34 unit SQ BREAKFAST Insulin Lispro [Humalog] 16 unit SQ BREAKFAST Cetirizine HCl 10 mg PO DAILY Budesonide/Formoterol Fumarate [Budesonide-Formoterol 80-4.5] 2 puffs IH BID PRN PRN Reason: Shortness Of Breath Acetaminophen 325 mg [Tylenol 325 mg] 650 mg PO Q6H PRN PRN PRN Reason: Pain Levothyroxine Sodium 25 mcg PO DAILY Ergocalciferol (Vitamin D2) [Vitamin D2] 50,000 units PO WEEKLY Discontinued Buspirone HCl 5 mg [Buspar 5 mg] 5 mg PO BID Additional Instructions: Patient advised to hold Buspar while taking Zyvox Follow up with: URBAN HINTON [Primary Care Provider] -
[2023-11-30 11:33] VITALS: BP 173/86; PULSE 103; TEMP 97.7
== END 2023-11-30 13:40 | disposition home health service (06) ==
LOC: ED 20:44 → UNDOADMOB 11-29 00:27 → MED SURG 11-29 00:27 → UNDODISOB 11-30 13:40
PROVIDERS: ADMIT Internal Medicine; ATTEND Internal Medicine
DX: G93.40 Encephalopathy, unspecified (principal); N39.0 Urinary tract infection, site not specified; I12.9 Hypertensive chronic kidney disease with stage 1 through stage 4 chronic kidney disease, or unspecified chronic kidney disease; E11.22 Type 2 diabetes mellitus with diabetic chronic kidney disease; N18.9 Chronic kidney disease, unspecified; I50.9 Heart failure, unspecified; I25.2 Old myocardial infarction; D72.829 Elevated white blood cell count, unspecified; E03.9 Hypothyroidism, unspecified; E87.6 Hypokalemia; Z79.899 Other long term (current) drug therapy; Z79.01 Long term (current) use of anticoagulants; Z85.3 Personal history of malignant neoplasm of breast
CPT/HCPCS: 36000; 36415; 70450; 80053; 81001; 82140; 82947; 83735; 83880; 84132; 84484; 85025; 87040; 87086; 93005; 93041; 94640; 94760; 96365; 96374; 97161; 99285; G0378; P9612; Q3014; J0360; J0696; J1817; A9270-GY

== ENCOUNTER 2024-02-16 10:11 | Inpatient (IN) | payer MEDICARE, OTHER ==
[2024-02-16] MEDS ORDERED: D50W 50 ml Abboject IV ONE (10:17)
[2024-02-16] MEDS: D50W 50 ml Abboject IV ONE (10:19)
[2024-02-16] MEDS ORDERED: Sodium Chloride 0.9% 1000 ML 1,000 ML ONE (10:45)
[2024-02-16] MEDS: Sodium Chloride 0.9% 1000 ML 1,000 ML IV SCH (10:45)
[2024-02-16 10:49] LABS: Absolute Neutrophil Ct (ANC) 4.53 x10^3/uL (1.56-6.13); BASOPHIL % 0.4 % (0.1-1.2); Basophil (Absolute #) 0.03 x10^3/uL (0.01-0.08); Eosinophil (Absolute #) 0.35 x10^3/uL (0.04-0.36); Hematocrit 31.1 % (34.1-44.9); Hemoglobin 10.3 g/dL (11.2-15.7); IMMATURE GRAN # 0.02 x10^3u/L (0.001-0.031); IMMATURE GRAN % 0.3 % (0.001-0.429); Lymphocyte (Absolute #) 1.13 x10^3/uL (1.18-3.74); Mean Cell Volume 91.5 fL (79.4-94.8); Mean Corpuscular Hemoglobin 30.3 pg (25.6-32.2); Mean Corpuscular Hgb Concent. 33.1 g/dL (32.2-35.5); Mean Platelet Volume 12.2 fL (9.4-12.3); Monocyte (Absolute #) 0.99 x10^3/uL (0.24-0.86); Neutrophil % 64.3 % (34.0-71.1); Platelet Count 311 x10^3/uL (182-369); Red Cell Distribution Width 12.9 % (11.7-14.4); White Blood Count 7.1 x10^3/uL (3.98-10.04)
[2024-02-16 11:02] LABS: ALBUMIN 4.1 g/dL (3.5-5.0); ANION GAP 14.1 MEQ/L (5-15); BILIRUBIN,TOTAL 0.5 mg/dL (0.2-1.3); Calcium 10.3 mg/dL (8.4-10.2); Creatinine 1 2.69 mg/dL (0.52-1.04); EST GLOMERULAR FILTRATION RATE 17.6 ML/MIN; Total Protein 7.8 g/dL (6.3-8.2)
[2024-02-16 11:13] LABS: Appearance Cloudy (Clear); Bacteria Many /HPF (None Seen); Bilirubin Negative (Negative); Blood Negative (Negative); Epithelial Cells Moderate /HPF (None Seen); Glucose, Urine Negative (Negative); Hyaline Casts NONE SEEN /LPF (0-2); Ketones Negative (Negative); Leukocyte Esterase Moderate (Negative); Nitrite Positive (Negative); Protein,Urine Dip 30 (Negative); RBC 0-2 /HPF (0-5); Urobilinogen 0.2 mg/dL (0.2)
--- NOTE | 2024-02-16 11:19 | XRAY ---
Indication: Hypoglycemia. Comparison: November 15, 2023 Portable chest now demonstrates borderline cardiomegaly with stable cardiac valve replacement and tortuous descending aorta. Stable left mid lung subsegmental atelectasis/scarring. No focal infiltrate, consolidation, or large effusion. Bony thorax intact again with osteopenia and mild degenerative changes. Impression: New borderline cardiomegaly. Negative acute pneumonic process or CHF.
[2024-02-16 11:33] LABS: ADD URINE CULTURE? YES (NO)
[2024-02-16] MEDS ORDERED: ROCEPHIN 1 GM / 100 ML NaCl 1 GM/100 ML IVPB IV ONE (11:53)
[2024-02-16] MEDS: ROCEPHIN 1 GM / 100 ML NaCl 1 GM/100 ML IVPB IV ONE (11:54)
--- NOTE | 2024-02-16 12:28 | ERPHSYRPT ---
- History of Present Illness Time Seen by Provider: 02/16/24 10:25 Source: patient, EMS, [facility] records Exam Limitations: no limitations Patient Subjective Stated Complaint: Hypoglycemia. Accucheck 36 by EMS prior to arrival. Triage Nursing Assessment: Patient arrived by ambulance. She is drowsy. She is alert and oriented X 4 upon arrival but with slow responses. Glucose per ER glucometer 40 upon arrival. No SOB. 02 sats 90% on room air; 02 @ 2L per N/C applied. Physician History: 78 years old female with multiple medical problems including hypertension, hyperlipidemia, diabetes mellitus, atrial fibrillation on Eliquis currently resident of [facility] is brought in the ER after she was found unresponsive. They checked her blood sugar which was in 30s, given glucagon IM injection x 2 and on presentation patient is awake alert and oriented, answering questions appropriately but her blood sugar is only 40. She is given D50 with improvement in glucose to 160s. Patient denies any chest pain palpitations or shortness of breath. No headache. No vomiting or diarrhea. Denies any focal numbness tingl ing or weakness but generalized feeling of tiredness and fatigued all over. Allergies/Adverse Reactions: albuterol Allergy (Intermediate, Verified 02/16/24 10:15) Swelling of Tongue and Lips propranolol [From Inderal LA] Allergy (Intermediate, Verified 02/16/24 10:15) red face and ears levofloxacin [From Levaquin] Allergy (Unknown, Verified 02/16/24 10:15) clonazepam [From Klonopin] Allergy (Verified 02/16/24 10:15) Tightness of Throat tongue swollen dronedarone [From Multaq] Allergy (Verified 02/16/24 10:15) Itching metoclopramide [From Reglan] Allergy (Verified 02/16/24 10:15) propranolol HCl [From Inderal LA] Allergy (Verified 02/16/24 10:15) Swelling of Tongue and Lips red face and ears Sulfa (Sulfonamide Antibiotics) Allergy (Verified 02/16/24 10:15) Swelling of Tongue and Lips throat swell,ears red terfenadine Allergy (Verified 02/16/24 10:15) venom-honey bee [bee venom (honey bee)] Allergy (Verified 02/16/24 10:15) Hives large hives wheat Allergy (Verified 02/16/24 10:15) zanamivir [From Relenza Disktopherer] Allergy (Verified 02/16/24 10:15) Swelling of Tongue and Lips throat tightness cilostazol [From Pletal] Adverse Reaction (Severe, Verified 02/16/24 10:15) Swelling of Tongue and Lips ticagrelor [From Brilinta] Adverse Reaction (Severe, Verified 02/16/24 10:15) Swelling of Tongue and Lips Home Medications: Pregabalin 50 mg [Lyrica 50MG] 50 mg PO HS 07/06/22 [History] Apixaban [Eliquis 5 mg Tablet] 5 mg PO BID 07/16/22 [History] Calcium Carbonate 750 mg [Tums EX 750 MG] 2 tab PO BID 08/31/22 [History] Ferrous Sulfate 325 mg [Feosol 325 mg] 325 mg PO BID 08/31/22 [History] Folic Acid 1 mg [Folate 1 mg] 1 mg PO DAILY 08/31/22 [History] Insulin Lispro [Humalog] 20 unit SQ EVENING MEAL 09/28/23 [History] Famotidine 20 mg [Pepcid 20 MG] 20 mg PO BID 10/27/23 [History] Acetaminophen 325 mg [Tylenol 325 mg] 650 mg PO Q6H PRN PRN 11/15/23 [H istory] Budesonide/Formoterol Fumarate [Budesonide-Formoterol 80-4.5] 2 puffs IH BID PRN 11/15/23 [History] Cetirizine HCl 10 mg PO DAILY 11/15/23 [History] Cyanocobalamin 500 Mcg [Vitamin B-12 500 MCG] 1,000 mcg PO DAILY 11/15/23 [History] Glucagon 1 mg [GlucaGen 1 MG] 1 mg IJ UD 11/15/23 [History] Insulin Glargine [Lantus Insulin] 34 unit SQ BREAKFAST 11/15/23 [History] Insulin Lispro [Humalog] 14 unit SQ LUNCH 11/15/23 [History] Insulin Lispro [Humalog] 16 unit SQ BREAKFAST 11/15/23 [History] L. Acidophilus/L.bulgaricus [Floranex Tablet] 1 each PO DAILY 11/15/23 [History] Levothyroxine Sodium 100 Mcg [Synthroid 100 Mcg] 200 mcg PO DAILY 11/15/23 [History] Montelukast Sodium 10 mg [Singulair 10 MG] 10 mg PO HS 11/15/23 [History] Tamsulosin HCl 0.4 mg [Flomax 0.4 MG] 0.4 mg PO HS 11/15/23 [History] Ergocalciferol (Vitamin D2) [Vitamin D2] 50,000 units PO WEEKLY 11/28/23 [History] Levothyroxine Sodium 25 mcg PO DAILY 11/28/23 [History] Hx Tetanus, Diphtheria Vaccination/Date Given: Yes Hx Influenza Vaccination/Date Given: Yes Hx Pneumococcal Vaccination/Date Given: Yes Immunizations Up to Date: Yes Travel Risk - International Travel Have you traveled outside of the country in past 3 weeks: No - Emerging Infectious Disease Are you exhibiting symptoms associated with any current EIDs: No - Review of Systems Constitutional: Fatigue, Weakness (Generalized) Eyes: No Symptoms Ears, Nose, & Throat: No Symptoms Respiratory: No Symptoms Cardiac: No Symptoms Abdominal/Gastrointestinal: No Symptoms Genitourinary Symptoms: No Symptoms Musculoskeletal: Arthralgias Skin: No Symptoms Neurological: No Symptoms Hematologic/Lymphatic: No Symptoms Immunological/Allergic: No Symptoms - Past Medical History Pertinent Past Medical History: Yes Neurological History: TIA, Peripheral Neuropathy ENT History: Other Cardiac History: Arrhythmia, Congestive Heart Failure, High Cholesterol, Hypertension, Myocardial Infarction (ME) Respiratory History: CHF, COPD Endocrine Medical History: Diabetes Type II, Hypothyroidism Musculoskeletal History: No Pertinent History GI Medical History: Other, GERD History: No Pertinent History Psycho-Social History: Anxiety Female Reproductive Disorders: Breast Cancer Other Medical History: right eye retinal scratch - Past Surgical History Past Surgical History: Yes Neuro Surgical History: No Pertinent History Cardiac: Other Respiratory: No Pertinent History Gastrointestinal: Hernia Repair Genitourinary: No Pertinent History Musculoskeletal: No Pertinent History Female Surgical History: Mastectomy, Lumpectomy Other Surgical History: left mastectomy 1993, right lumpectomy, right thyroid removed, left thyroid removed with goiter, pubic mass, left knee scope, valve replacement Significant Family History: no pertinent family hx - Social History Smoking Status: Never smoker Exposure to second hand smoke: No Drug Use: none Patient Lives Alone: Yes - Social Determinants of Health Will the patient participate in the screening: Unable to obtain - Nursing Vital Signs Nursing Vital Signs: Initial Vital Signs Temperature 96.8 F 02/16/24 10:12 Pulse Rate 78 02/16/24 10:12 Respiratory Rate 24 02/16/24 10:12 Blood Pressure 102/54 02/16/24 10:12 O2 Sat by Pulse Oximetry 90 L 02/16/24 10:12 Pain Scale Pain Intensity 0 - Physical Exam General Appearance: no apparent distress, alert Eye Exam: PERRL/EOMI Ears, Nose, Throat Exam: normal ENT inspection Neck Exam: normal inspection, supple, full range of motion Respiratory Exam: normal breath sounds, lungs clear Cardiovascular Exam: normal heart sounds, irregular, edema Gastrointestinal/Abdomen Exam: soft, normal bowel sounds Back Exam: normal inspection Extremity Exam: normal inspection, normal range of motion Neurologic Exam: alert, oriented x 3, cooperative Skin Exam: normal color SpO2 Interpretation: borderline oxygenation SpO2: 100 O2 Delivery: Nasal Cannula (2 L) - Course EKG Interpreted by Me: RATE, A-fib, NORMAL AXIS, NORMAL INTERVALS, NORMAL QRS Ordered Tests: Active Orders 24 hr Category Date Time Status EKG-ER Only STAT Care 02/16/24 10:26 Active IV Insertion STAT Care 02/16/24 10:26 Active NPO (ED) STAT Care 02/16/24 10:26 Active Telemetry q4h Care 02/16/24 11:39 Active CHEST 1 VIEW (PORTABLE) Stat Exams 02/16/24 10:27 Completed BLOOD CULTURE Stat Lab 02/16/24 10:27 Received CBC W DIFF Stat Lab 02/16/24 10:43 Completed CMP Stat Lab 02/16/24 10:43 Completed CULTURE,URINE Stat Lab 02/16/24 10:27 Received LIPASE Stat Lab 02/16/24 10:43 Completed Lactic Acid Stat Lab 02/16/24 10:40 Completed MAG [MAGNESIUM] Stat Lab 02/16/24 11:40 Completed POCT GLUCOSE Stat Lab 02/16/24 10:14 Completed POCT GLUCOSE Stat Lab 02/16/24 10:36 Completed POCT GLUCOSE Stat Lab 02/16/24 11:40 Completed TROPONIN Q4H Lab 02/16/24 10:43 Completed TROPONIN Q4H Lab 02/16/24 14:30 Ordered TROPONIN Q4H Lab 02/16/24 18:30 Ordered UA W/RFX UR CULTURE Stat Lab 02/16/24 10:27 Completed Medication Summary Generic Name Dose Route Start Last Admin Trade Name Freq PRN Reason Stop Dose Admin Sodium Chloride 1,000 mls @ 100 mls/hr 02/16/24 10:30 02/16/24 12:35 Sodium Chloride 0.9% 1000 Ml IV 03/17/24 10:29 Infused .Q10H RAMON Infusion Potassium Chloride 20 meq in 100 mls @ 50 mls/hr 02/16/24 11:45 02/16/24 12:42 Potassium Chloride 20 Meq In Water 100ml IV 02/16/24 15:44 50 mls/hr Q2H RAMON Administration Dextrose 250 mls @ 30 mls/hr 02/16/24 12:00 02/16/24 12:41 Dextrose 10% 250 Ml IV 03/17/24 11:59 30 mls/hr .Q8H20M RAMON Administration Discontinued Medications Generic Name Dose Route Start Last Admin Trade Name Freq PRN Reason Stop Dose Admin Dextrose 50 ml 02/16/24 10:18 02/16/24 10:19 Dextrose 50%-Water 50 Ml Abboject IV 02/16/24 10:19 50 ml STAT ONE Administration Dextrose Confirm 02/16/24 10:17 Dextrose 50%-Water 50 Ml Abboject Administered 02/16/24 10:18 Dose 50 ml IV .STK-MED ONE Ceftriaxone Sodium 1 gm in 100 mls @ 200 mls/hr 02/16/24 11:38 02/16/24 12:32 Rocephin 1 Gm / 100 Ml Nacl IV 02/16/24 12:07 Infused STAT ONE Infusion Ceftriaxone Sodium Confirm 02/16/24 11:53 Rocephin 1 Gm / 100 Ml Nacl Administered 02/16/24 11:54 Dose 1 gm in 100 mls @ ud IV .STK-MED ONE Lab/Rad Data: Laboratory Result Diagrams 02/16/24 10:43 02/16/24 10:43 Laboratory Results 02/16/24 02/16/24 02/16/24 Range/Units 11:40 11:40 10:43 WBC (3.98-10.04) x10^3/uL RBC (3.93-5.22) x10^6/uL Hgb (11.2-15.7) g/dL Hct (34.1-44.9) % MCV (79.4-94.8) fL MCH (25.6-32.2) pg MCHC (32.2-35.5) g/dL RDW (11.7-14.4) % Plt Count (182-369) x10^3/uL MPV (9.4-12.3) fL Gran % (34.0-71.1) % Immature Gran % (Auto) (0.001-0.429) % Nucleat RBC Rel Count (0.00-0.2) % Eos # (Auto) (0.04-0.36) x10^3/uL Immature Gran # (Auto) (0.001-0.031) x10^3u/L Absolute Lymphs (auto) (1.18-3.74) x10^3/uL Absolute Monos (auto) (0.24-0.86) x10^3/uL Absolute Nucleated RBC (0.00-0.012) x10^3u/L Lymphocytes % (19.3-51.7) % Monocytes % (4.7-12.5) % Eosinophils % (0.7-5.8) % Basophils % (0.1-1.2) % Absolute Granulocytes (1.56-6.13) x10^3/uL Basophils # (0.01-0.08) x10^3/uL Sodium (135-145) mmol/L Potassium (3.5-5.1) mmol/L Chloride (98-107) mmol/L Carbon Dioxide (22-30) mmol/L Anion Gap (5-15) MEQ/L BUN (7-17) mg/dL Creatinine (0.52-1.04) mg/dL Estimated GFR ML/MIN Glucose (74-106) mg/dL POC Glucometer 132 H (50 to 500) mg/dL Lactic Acid (0.4-2.0) Calcium (8.4-10.2) mg/dL Magnesium 2.0 (1.6-2.3) mg/dL Total Bilirubin (0.2-1.3) mg/dL AST (14-36) U/L ALT (0-35) U/L Alkaline Phosphatase (38-126) U/L Troponin I 0.022 (0.000-0.033) ng/mL Serum Total Protein (6.3-8.2) g/dL Albumin (3.5-5.0) g/dL Lipase (23-300) U/L Urine Color (Yellow) Urine Appearance (Clear) Urine pH (4.6-8.0) Ur Specific [place] (1.005-1.030) Urine Protein (Negative) Urine Glucose (UA) (Negative) mg/dL Urine Ketones (Negative) Urine Blood (Negative) Urine Nitrite (Negative) Urine Bilirubin (Negative) Urine Urobilinogen (0.2) mg/dL Ur Leukocyte Esterase (Negative) U Hyaline Cast (Auto) (0-2) /LPF Urine Microscopic RBC (0-5) /HPF Urine Microscopic WBC (0-5) /HPF Ur Epithelial Cells (None Seen) /HPF Urine Bacteria (None Seen) /HPF Urine Culture Reflexed (NO) 02/16/24 02/16/24 02/16/24 Range/Units 10:43 10:43 10:40 WBC 7.1 (3.98-10.04) x10^3/uL RBC 3.40 L (3.93-5.22) x10^6/uL Hgb 10.3 L (11.2-15.7) g/dL Hct 31.1 L (34.1-44.9) % MCV 91.5 (79.4-94.8) fL MCH 30.3 (25.6-32.2) pg MCHC 33.1 (32.2-35.5) g/dL RDW 12.9 (11.7-14.4) % Plt Count 311 (182-369) x10^3/uL MPV 12.2 (9.4-12.3) fL Gran % 64.3 (34.0-71.1) % Immature Gran % (Auto) 0.3 (0.001-0.429) % Nucleat RBC Rel Count 0.0 (0.00-0.2) % Eos # (Auto) 0.35 (0.04-0.36) x10^3/uL Immature Gran # (Auto) 0.02 (0.001-0.031) x10^3u/L Absolute Lymphs (auto) 1.13 L (1.18-3.74) x10^3/uL Absolute Monos (auto) 0.99 H (0.24-0.86) x10^3/uL Absolute Nucleated RBC 0.00 (0.00-0.012) x10^3u/L Lymphocytes % 16.0 L (19.3-51.7) % Monocytes % 14.0 H (4.7-12.5) % Eosinophils % 5.0 (0.7-5.8) % Basophils % 0.4 (0.1-1.2) % Absolute Granulocytes 4.53 (1.56-6.13) x10^3/uL Basophils # 0.03 (0.01-0.08) x10^3/uL Sodium 141 (135-145) mmol/L Potassium 3.0 L* (3.5-5.1) mmol/L Chloride 103 (98-107) mmol/L Carbon Dioxide 27 (22-30) mmol/L Anion Gap 14.1 (5-15) MEQ/L BUN 54 H (7-17) mg/dL Creatinine 2.69 H (0.52-1.04) mg/dL Estimated GFR 17.6 ML/MIN Glucose 41 L* (74-106) mg/dL POC Glucometer (50 to 500) mg/dL Lactic Acid 1.3 (0.4-2.0) Calcium 10.3 H (8.4-10.2) mg/dL Magnesium (1.6-2.3) mg/dL Total Bilirubin 0.50 (0.2-1.3) mg/dL AST 30 (14-36) U/L ALT 31 (0-35) U/L Alkaline Phosphatase 71 (38-126) U/L Troponin I (0.000-0.033) ng/mL Serum Total Protein 7.8 (6.3-8.2) g/dL Albumin 4.1 (3.5-5.0) g/dL Lipase 52 (23-300) U/L Urine Color (Yellow) Urine Appearance (Clear) Urine pH (4.6-8.0) Ur Specific [place] (1.005-1.030) Urine Protein (Negative) Urine Glucose (UA) (Negative) mg/dL Urine Ketones (Negative) Urine Blood (Negative) Urine Nitrite (Negative) Urine Bilirubin (Negative) Urine Urobilinogen (0.2) mg/dL Ur Leukocyte Esterase (Negative) U Hyaline Cast (Auto) (0-2) /LPF Urine Microscopic RBC (0-5) /HPF Urine Microscopic WBC (0-5) /HPF Ur Epithelial Cells (None Seen) /HPF Urine Bacteria (None Seen) /HPF Urine Culture Reflexed (NO) 02/16/24 02/16/24 02/16/24 Range/Units 10:36 10:27 10:14 WBC (3.98-10.04) x10^3/uL RBC (3.93-5.22) x10^6/uL Hgb (11.2-15.7) g/dL Hct (34.1-44.9) % MCV (79.4-94.8) fL MCH (25.6-32.2) pg MCHC (32.2-35.5) g/dL RDW (11.7-14.4) % Plt Count (182-369) x10^3/uL MPV (9.4-12.3) fL Gran % (34.0-71.1) % Immature Gran % (Auto) (0.001-0.429) % Nucleat RBC Rel Count (0.00-0.2) % Eos # (Auto) (0.04-0.36) x10^3/uL Immature Gran # (Auto) (0.001-0.031) x10^3u/L Absolute Lymphs (auto) (1.18-3.74) x10^3/uL Absolute Monos (auto) (0.24-0.86) x10^3/uL Absolute Nucleated RBC (0.00-0.012) x10^3u/L Lymphocytes % (19.3-51.7) % Monocytes % (4.7-12.5) % Eosinophils % (0.7-5.8) % Basophils % (0.1-1.2) % Absolute Granulocytes (1.56-6.13) x10^3/uL Basophils # (0.01-0.08) x10^3/uL Sodium (135-145) mmol/L Potassium (3.5-5.1) mmol/L Chloride (98-107) mmol/L Carbon Dioxide (22-30) mmol/L Anion Gap (5-15) MEQ/L BUN (7-17) mg/dL Creatinine (0.52-1.04) mg/dL Estimated GFR ML/MIN Glucose (74-106) mg/dL POC Glucometer 169 H 40 L* (50 to 500) mg/dL Lactic Acid (0.4-2.0) Calcium (8.4-10.2) mg/dL Magnesium (1.6-2.3) mg/dL Total Bilirubin (0.2-1.3) mg/dL AST (14-36) U/L ALT (0-35) U/L Alkaline Phosphatase (38-126) U/L Troponin I (0.000-0.033) ng/mL Serum Total Protein (6.3-8.2) g/dL Albumin (3.5-5.0) g/dL Lipase (23-300) U/L Urine Color Yellow (Yellow) Urine Appearance Cloudy A (Clear) Urine pH 7.0 (4.6-8.0) Ur Specific [place] 1.010 (1.005-1.030) Urine Protein 30 (Negative) Urine Glucose (UA) Negative (Negative) mg/dL Urine Ketones Negative (Negative) Urine Blood Negative (Negative) Urine Nitrite Positive A (Negative) Urine Bilirubin Negative (Negative) Urine Urobilinogen 0.2 (0.2) mg/dL Ur Leukocyte Esterase Moderate A (Negative) U Hyaline Cast (Auto) NONE SEEN (0-2) /LPF Urine Microscopic RBC 0-2 (0-5) /HPF Urine Microscopic WBC 11-20 A (0-5) /HPF Ur Epithelial Cells Moderate A (None Seen) /HPF Urine Bacteria Many A (None Seen) /HPF Urine Culture Reflexed YES (NO) - Progress Progress: improved Progress Note: 02/16/24 12:52 78 years old is evaluated in the ER after she was found unresponsive with a blood sugar in the 30s. Minimal improvement with 2 IM injection of glucagon prior to arrival. Although patient was awake alert and oriented on presentation, not in any distress. No focal neurosymptoms. Patient is given D50 as glucose was only 40 on presentation, it improved and 160s. She is started on D10 and also given a fluid bolus as patient was a little hypotensive. EKG is atrial fibrillation rate controlled with no ST elevation and negative troponins. Workup showed normal white count, chemistries with acute on chronic kidney failure with a baseline creatinine around 2 and today is 2.69. Potassium of 3.0 and a magnesium of 2.0, started on potassium replacement. Has normal lactate, does have UTI and given a dose of Rocephin. Chest x-ray negative for acute CHF/consolidative findings. Patient is afebrile. I believe patient's unresponsiveness is secondary to hypoglycemia and [place] intact motor, do not think needs CT imaging of head or any other stroke workup. Patient discussed with Dr. Lopes, reviewed history, workup and agreed with admission. Discussed with .: Brown Will see patient in: hospital (observation) Counseled pt/family regarding: lab results, diagnosis, rad results Medical Desision Making - Independent Historian Additional History obtained from: Shelter nurse, Ear Nose Throat Physician/EMT - Discussion of managment Care discussed with:: hospitalist Reviewed:: Test results Agreed on:: Treatment plan, place in obs Will see patient: in hospital - Diagnostic Testing Diagnostic test were ordered, analyzed, and reviewed by me: Yes Radiological Interpretation: Reviewed by me - Risk of complications The pt has a mod risk of morbidity or mortality based on: Need for prescription drug management The pt has a high risk of morbidity or mortality based on: Decision regarding hospitilization or escalation of hosp level of care - Departure Departure Disposition: Observation Clinical Impression: Hypoglycemia, UTI (urinary tract infection), Acute kidney injury superimposed on CKD, Hypokalemia Condition: Stable Critical Care Time: Yes Critical Care Time(excluding separately billable procedures): Critical 30-74 mins Referrals: JOE GEORGE MD [Primary Care Provider] - Follow up/PCP as directed
[2024-02-16] MEDS: DEXTROSE 10% 250 ML 250 ML IV SCH (12:41)
[2024-02-16] MEDS: POTASSIUM CHLORIDE 20 mEq IN WATER 100ML 20 MEQ/100 ML BAG IV SCH (12:42)
--- NOTE | 2024-02-16 14:08 | PCM.HP ---
History of Present Illness - Chief Complaint Chief Complaint: hypogylcemia, uti Date: 02/16/24 History of Present Illness: is a 78 year old female with pmhx of gastroesophageal reflux disease, insulin-dependent diabetes, atrial fibrillation on Eliquis, TIAs, peripheral neuropathy, CHF, COPD, CKD, hyperlipidemia, hypertension and hypothyroidism. Today she was evaluated in the ER after she was found unresponsive with a blood sugar in the 30s. Minimal improvement with 2 IM injection of glucagon prior to arrival. Patient was awake alert and oriented on presentation to ER, not in any distress and no focal neurosymptoms. IN ER patient was given D50 glucose as was only 40 on presentation, it improved and 160s. She is started on D10 and also given a fluid bolus as patient was a little hypotensive. EKG is atrial fibrillation rate controlled with no ST elevation and negative troponins. Workup showed normal white count, chemistries with acute on chronic kidney failure with a baseline creatinine around 2 and today is 2.69. Potassium of 3.0 and a magnesium of 2.0, started on potassium replacement. Has normal lactate, does have UTI and given a dose of Rocephin in ER. Chest x-ray negative for acute CHF/consolidative findings. Patient is afebrile. Pt's unresponsiveness is likelt secondary to hypoglycemia and UTI. No need for CT imaging of head or any other stroke workup at this time. Will continue IVF with dextrose, antibiotics, and trend K+, trops, and cultures. - Review of Systems Constitutional: No Fever, No Chills Eyes: No Symptoms Ears, Nose, & Throat: No Symptoms Respiratory: No Cough, No Short Of Breath Cardiac: No Chest Pain, No Edema, No Syncope Abdominal/Gastrointestinal: No Abdominal Pain, No Nausea, No Vomiting, No Diarrhea Genitourinary Symptoms: No Dysuria Musculoskeletal: No Back Pain, No Neck Pain Skin: No Rash Neurological: No Dizziness, No Focal Weakness, No Sensory Changes Psychological: No Symptoms Endocrine: No Symptoms Hematologic/Lymphatic: No Symptoms Immunological/Allergic: No Symptoms Medications & Allergies Home Medications: Home Medication List Pregabalin 50 mg [Lyrica 50MG] 50 mg PO HS 07/06/22 [History Confirmed 02/16/24] Apixaban [Eliquis 5 mg Tablet] 5 mg PO BID 07/16/22 [History Confirmed 02/16/24] Calcium Carbonate 750 mg [Tums EX 750 MG] 2 tab PO BID 08/31/22 [History Confirmed 02/16/24] Ferrous Sulfate 325 mg [Feosol 325 mg] 325 mg PO BID 08/31/22 [History Confirmed 02/16/24] Folic Acid 1 mg [Folate 1 mg] 1 mg PO DAILY 08/31/22 [History Confirmed 02/16/24] Insulin Lispro [Humalog] 14 unit SQ EVENING MEAL 09/28/23 [History Confirmed 02/16/24] Famotidine 20 mg [Pepcid 20 MG] 20 mg PO BID 10/27/23 [History Confirmed 02/16/24] Acetaminophen 325 mg [Tylenol 325 mg] 650 mg PO Q6H PRN PRN 11/15/23 [History Confirmed 02/16/24] Budesonide/Formoterol Fumarate [Budesonide-Formoterol 80-4.5] 2 puffs IH BID PRN 11/15/23 [History Confirmed 02/16/24] Cetirizine HCl 10 mg PO DAILY 11/15/23 [History Confirmed 02/16/24] Cyanocobalamin 500 Mcg [Vitamin B-12 500 MCG] 1,000 mcg PO DAILY 11/15/23 [History Confirmed 02/16/24] Glucagon 1 mg [GlucaGen 1 MG] 1 mg IJ UD 11/15/23 [History Confirmed 02/16/24] Insulin Glargine [Lantus Insulin] 38 unit SQ BREAKFAST 11/15/23 [History Confirmed 02/16/24] Insulin Lispro [Humalog] 14 unit SQ LUNCH 11/15/23 [History Confirmed 02/16/24] Insulin Lispro [Humalog] 18 unit SQ BREAKFAST 11/15/23 [History Confirmed 02/16/24] L. Acidophilus/L.bulgaricus [Floranex Tablet] 1 each PO DAILY 11/15/23 [History Confirmed 02/16/24] Levothyroxine Sodium 100 Mcg [Synthroid 100 Mcg] 200 mcg PO DAILY 11/15/23 [History Confirmed 02/16/24] Montelukast Sodium 10 mg [Singulair 10 MG] 10 mg PO HS 11/15/23 [History Confirmed 02/16/24] Tamsulosin HCl 0.4 mg [Flomax 0.4 MG] 0.4 mg PO HS 11/15/23 [History Confirmed 02/16/24] Ergocalciferol (Vitamin D2) [Vitamin D2] 50,000 units PO WEEKLY 11/28/23 [History Confirmed 02/16/24] Levothyroxine Sodium 25 mcg PO DAILY 11/28/23 [History Confirmed 02/16/24] Amlodipine Besylate 5 mg [Norvasc 5 mg] 5 mg PO QAM 30 Days #30 tablet 11/30/23 [Rx Confirmed 02/16/24] Buspirone HCl 10 mg PO BID 02/16/24 [History Confirmed 02/16/24] Carvedilol 12.5 mg [Coreg 12.5 mg] 1 tab PO BID 02/16/24 [History Confirmed 02/16/24] Fluticasone Propion/Salmeterol [Advair 100-50 Diskus] 1 puff IH BID 02/16/24 [History Confirmed 02/16/24] Losartan Potassium 1 tab PO DAILY 02/16/24 [History Confirmed 02/16/24] Allergies/Adverse Reactions: Allergies Allergy/AdvReac Type Severity Reaction Status Date / Time albuterol Allergy Intermediate Swelling Verified 02/16/24 10:15 of Tongue and Lips propranolol [From Inderal LA] Allergy Intermediate Verified 02/16/24 10:15 levofloxacin [From Levaquin] Allergy Unknown Verified 02/16/24 10:15 clonazepam [From Klonopin] Allergy Tightness Verified 02/16/24 10:15 of Throat dronedarone [From Multaq] Allergy Itching Verified 02/16/24 10:15 metoclopramide [From Reglan] Allergy Verified 02/16/24 10:15 propranolol HCl Allergy Swelling Verified 02/16/24 10:15 [From Inderal LA] of Tongue and Lips Sulfa (Sulfonamide Allergy Swelling Verified 02/16/24 10:15 Antibiotics) of Tongue and Lips terfenadine Allergy Verified 02/16/24 10:15 venom-honey bee Allergy Hives Verified 02/16/24 10:15 [bee venom (honey bee)] wheat Allergy Verified 02/16/24 10:15 zanamivir Allergy Swelling Verified 02/16/24 10:15 [From Relenza Diskhaler] of Tongue and Lips cilostazol [From Pletal] AdvReac Severe Swelling Verified 02/16/24 10:15 of Tongue and Lips ticagrelor [From Brilinta] AdvReac Severe Swelling Verified 02/16/24 10:15 of Tongue and Lips - Past Medical History Past Medical History: Yes Neurological History: TIA, Peripheral Neuropathy ENT History: Other Cardiac History: Arrhythmia, Congestive Heart Failure, High Cholesterol, Hypertension, Myocardial Infarction ([place]) Respiratory History: CHF, COPD Endocrine Medical History: Diabetes Type II, Hypothyroidism Musculoskelatal History: No Pertinent History GI Medical History: Other, GERD History: No Pertinent History Pyscho-Social History: Anxiety Reproductive Disorders: Breast Cancer Comment: right eye retinal scratch - Past Surgical History Past Surgical History: Yes Neuro Surgical History: No Pertinent History Cardiac History: Other Respiratory Surgery: No Pertinent History GI Surgical History: Hernia Repair Genitourinary Surgical Hx: No Pertinent History Musculskeletal Surgical Hx: No Pertinent History Female Surgical History: Mastectomy, Lumpectomy Other Surgical History: left mastectomy 1993, right lumpectomy, right thyroid removed, left thyroid removed with goiter, pubic mass, left knee scope, valve replacement Significant Family History: no pertinent family hx - Social History Smoking Status: Never smoker Exposure to second hand smoke: No Alcohol: None Drug Use: none - Social Determinants of Health Will the patient participate in the screening: Unable to obtain Do you worry about a steady place to live?: No In the past 12 months,have you had to go without utilities?: No Have you or anyone in your house had to go without enough: No Transportation Issues: No Has anyone in your support network made you feel unsafe?: No Does the patient want assistance with any of the above?: No 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 - Physical Exam Vital Signs: Vital Signs - 24 hr Temp Pulse Resp BP BP Pulse Ox 02/16/24 12:57 100 02/16/24 12:40 75 24 129/77 99 02/16/24 12:30 75 17 114/82 100 02/16/24 12:21 80 20 117/97 100 02/16/24 12:20 81 23 99 02/16/24 12:11 68 21 100 02/16/24 12:00 81 18 89/52 100 02/16/24 11:53 73 19 94/55 99 02/16/24 11:30 74 17 75/47 97 02/16/24 11:00 82 18 108/49 97 02/16/24 10:30 77 16 103/42 97 02/16/24 10:26 75 21 98/56 92 L 02/16/24 10:12 96.8 F 78 24 102/54 90 L General Appearance: no apparent distress, alert Neurologic Exam: alert, oriented x 3, cooperative, normal mood/affect, nml cerebellar function, nml station & gait, sensation nml, No motor deficits Eye Exam: PERRL/EOMI, eyes nml inspection Ears, Nose, Throat Exam: normal ENT inspection, TMs normal, pharynx normal, moist mucous membranes Neck Exam: normal inspection, non-tender, supple, full range of motion Respiratory Exam: normal breath sounds, lungs clear, No respiratory distress Cardiovascular Exam: regular rate/rhythm, normal heart sounds, normal peripheral pulses Gastrointestinal/Abdomen Exam: soft, normal bowel sounds, No tenderness, No mass Back Exam: normal inspection, normal range of motion, No CVA tenderness, No vertebral tenderness Extremity Exam: normal inspection, normal range of motion, pelvis stable Skin Exam: normal color, warm, dry, No rash Lymphatic Exam: No adenopathy Results - Labs Lab/Micro Results: Lab Results-Last 24 Hours 02/16/24 02/16/24 02/16/24 Range/Units 10:14 10:27 10:36 WBC (3.98-10.04) x10^3/uL RBC (3.93-5.22) x10^6/uL Hgb (11.2-15.7) g/dL Hct (34.1-44.9) % MCV (79.4-94.8) fL MCH (25.6-32.2) pg MCHC (32.2-35.5) g/dL RDW (11.7-14.4) % Plt Count (182-369) x10^3/uL MPV (9.4-12.3) fL Gran % (34.0-71.1) % Immature Gran % (Auto) (0.001-0.429) % Nucleat RBC Rel Count (0.00-0.2) % Eos # (Auto) (0.04-0.36) x10^3/uL Immature Gran # (Auto) (0.001-0.031) x10^3u/L Absolute Lymphs (auto) (1.18-3.74) x10^3/uL Absolute Monos (auto) (0.24-0.86) x10^3/uL Absolute Nucleated RBC (0.00-0.012) x10^3u/L Lymphocytes % (19.3-51.7) % Monocytes % (4.7-12.5) % Eosinophils % (0.7-5.8) % Basophils % (0.1-1.2) % Absolute Granulocytes (1.56-6.13) x10^3/uL Basophils # (0.01-0.08) x10^3/uL Sodium (135-145) mmol/L Potassium (3.5-5.1) mmol/L Chloride (98-107) mmol/L Carbon Dioxide (22-30) mmol/L Anion Gap (5-15) MEQ/L BUN (7-17) mg/dL Creatinine (0.52-1.04) mg/dL Estimated GFR ML/MIN Glucose (74-106) mg/dL POC Glucometer 40 L* 169 H (50 to 500) mg/dL Lactic Acid (0.4-2.0) Calcium (8.4-10.2) mg/dL Magnesium (1.6-2.3) mg/dL Total Bilirubin (0.2-1.3) mg/dL AST (14-36) U/L ALT (0-35) U/L Alkaline Phosphatase (38-126) U/L Troponin I (0.000-0.033) ng/mL Serum Total Protein (6.3-8.2) g/dL Albumin (3.5-5.0) g/dL Lipase (23-300) U/L Urine Color Yellow (Yellow) Urine Appearance Cloudy A (Clear) Urine pH 7.0 (4.6-8.0) Ur Specific [place] 1.010 (1.005-1.030) Urine Protein 30 (Negative) Urine Glucose (UA) Negative (Negative) mg/dL Urine Ketones Negative (Negative) Urine Blood Negative (Negative) Urine Nitrite Positive A (Negative) Urine Bilirubin Negative (Negative) Urine Urobilinogen 0.2 (0.2) mg/dL Ur Leukocyte Esterase Moderate A (Negative) U Hyaline Cast (Auto) NONE SEEN (0-2) /LPF Urine Microscopic RBC 0-2 (0-5) /HPF Urine Microscopic WBC 11-20 A (0-5) /HPF Ur Epithelial Cells Moderate A (None Seen) /HPF Urine Bacteria Many A (None Seen) /HPF Urine Culture Reflexed YES (NO) 02/16/24 02/16/24 02/16/24 Range/Units 10:40 10:43 10:43 WBC 7.1 (3.98-10.04) x10^3/uL RBC 3.40 L (3.93-5.22) x10^6/uL Hgb 10.3 L (11.2-15.7) g/dL Hct 31.1 L (34.1-44.9) % MCV 91.5 (79.4-94.8) fL MCH 30.3 (25.6-32.2) pg MCHC 33.1 (32.2-35.5) g/dL RDW 12.9 (11.7-14.4) % Plt Count 311 (182-369) x10^3/uL MPV 12.2 (9.4-12.3) fL Gran % 64.3 (34.0-71.1) % Immature Gran % (Auto) 0.3 (0.001-0.429) % Nucleat RBC Rel Count 0.0 (0.00-0.2) % Eos # (Auto) 0.35 (0.04-0.36) x10^3/uL Immature Gran # (Auto) 0.02 (0.001-0.031) x10^3u/L Absolute Lymphs (auto) 1.13 L (1.18-3.74) x10^3/uL Absolute Monos (auto) 0.99 H (0.24-0.86) x10^3/uL Absolute Nucleated RBC 0.00 (0.00-0.012) x10^3u/L Lymphocytes % 16.0 L (19.3-51.7) % Monocytes % 14.0 H (4.7-12.5) % Eosinophils % 5.0 (0.7-5.8) % Basophils % 0.4 (0.1-1.2) % Absolute Granulocytes 4.53 (1.56-6.13) x10^3/uL Basophils # 0.03 (0.01-0.08) x10^3/uL Sodium 141 (135-145) mmol/L Potassium 3.0 L* (3.5-5.1) mmol/L Chloride 103 (98-107) mmol/L Carbon Dioxide 27 (22-30) mmol/L Anion Gap 14.1 (5-15) MEQ/L BUN 54 H (7-17) mg/dL Creatinine 2.69 H (0.52-1.04) mg/dL Estimated GFR 17.6 ML/MIN Glucose 41 L* (74-106) mg/dL POC Glucometer (50 to 500) mg/dL Lactic Acid 1.3 (0.4-2.0) Calcium 10.3 H (8.4-10.2) mg/dL Magnesium (1.6-2.3) mg/dL Total Bilirubin 0.50 (0.2-1.3) mg/dL AST 30 (14-36) U/L ALT 31 (0-35) U/L Alkaline Phosphatase 71 (38-126) U/L Troponin I (0.000-0.033) ng/mL Serum Total Protein 7.8 (6.3-8.2) g/dL Albumin 4.1 (3.5-5.0) g/dL Lipase 52 (23-300) U/L Urine Color (Yellow) Urine Appearance (Clear) Urine pH (4.6-8.0) Ur Specific [place] (1.005-1.030) Urine Protein (Negative) Urine Glucose (UA) (Negative) mg/dL Urine Ketones (Negative) Urine Blood (Negative) Urine Nitrite (Negative) Urine Bilirubin (Negative) Urine Urobilinogen (0.2) mg/dL Ur Leukocyte Esterase (Negative) U Hyaline Cast (Auto) (0-2) /LPF Urine Microscopic RBC (0-5) /HPF Urine Microscopic WBC (0-5) /HPF Ur Epithelial Cells (None Seen) /HPF Urine Bacteria (None Seen) /HPF Urine Culture Reflexed (NO) 02/16/24 02/16/24 02/16/24 Range/Units 10:43 11:40 11:40 WBC (3.98-10.04) x10^3/uL RBC (3.93-5.22) x10^6/uL Hgb (11.2-15.7) g/dL Hct (34.1-44.9) % MCV (79.4-94.8) fL MCH (25.6-32.2) pg MCHC (32.2-35.5) g/dL RDW (11.7-14.4) % Plt Count (182-369) x10^3/uL MPV (9.4-12.3) fL Gran % (34.0-71.1) % Immature Gran % (Auto) (0.001-0.429) % Nucleat RBC Rel Count (0.00-0.2) % Eos # (Auto) (0.04-0.36) x10^3/uL Immature Gran # (Auto) (0.001-0.031) x10^3u/L Absolute Lymphs (auto) (1.18-3.74) x10^3/uL Absolute Monos (auto) (0.24-0.86) x10^3/uL Absolute Nucleated RBC (0.00-0.012) x10^3u/L Lymphocytes % (19.3-51.7) % Monocytes % (4.7-12.5) % Eosinophils % (0.7-5.8) % Basophils % (0.1-1.2) % Absolute Granulocytes (1.56-6.13) x10^3/uL Basophils # (0.01-0.08) x10^3/uL Sodium (135-145) mmol/L Potassium (3.5-5.1) mmol/L Chloride (98-107) mmol/L Carbon Dioxide (22-30) mmol/L Anion Gap (5-15) MEQ/L BUN (7-17) mg/dL Creatinine (0.52-1.04) mg/dL Estimated GFR ML/MIN Glucose (74-106) mg/dL POC Glucometer 132 H (50 to 500) mg/dL Lactic Acid (0.4-2.0) Calcium (8.4-10.2) mg/dL Magnesium 2.0 (1.6-2.3) mg/dL Total Bilirubin (0.2-1.3) mg/dL AST (14-36) U/L ALT (0-35) U/L Alkaline Phosphatase (38-126) U/L Troponin I 0.022 (0.000-0.033) ng/mL Serum Total Protein (6.3-8.2) g/dL Albumin (3.5-5.0) g/dL Lipase (23-300) U/L Urine Color (Yellow) Urine Appearance (Clear) Urine pH (4.6-8.0) Ur Specific [place] (1.005-1.030) Urine Protein (Negative) Urine Glucose (UA) (Negative) mg/dL Urine Ketones (Negative) Urine Blood (Negative) Urine Nitrite (Negative) Urine Bilirubin (Negative) Urine Urobilinogen (0.2) mg/dL Ur Leukocyte Esterase (Negative) U Hyaline Cast (Auto) (0-2) /LPF Urine Microscopic RBC (0-5) /HPF Urine Microscopic WBC (0-5) /HPF Ur Epithelial Cells (None Seen) /HPF Urine Bacteria (None Seen) /HPF Urine Culture Reflexed (NO) 02/16/24 Range/Units 12:52 WBC (3.98-10.04) x10^3/uL RBC (3.93-5.22) x10^6/uL Hgb (11.2-15.7) g/dL Hct (34.1-44.9) % MCV (79.4-94.8) fL MCH (25.6-32.2) pg MCHC (32.2-35.5) g/dL RDW (11.7-14.4) % Plt Count (182-369) x10^3/uL MPV (9.4-12.3) fL Gran % (34.0-71.1) % Immature Gran % (Auto) (0.001-0.429) % Nucleat RBC Rel Count (0.00-0.2) % Eos # (Auto) (0.04-0.36) x10^3/uL Immature Gran # (Auto) (0.001-0.031) x10^3u/L Absolute Lymphs (auto) (1.18-3.74) x10^3/uL Absolute Monos (auto) (0.24-0.86) x10^3/uL Absolute Nucleated RBC (0.00-0.012) x10^3u/L Lymphocytes % (19.3-51.7) % Monocytes % (4.7-12.5) % Eosinophils % (0.7-5.8) % Basophils % (0.1-1.2) % Absolute Granulocytes (1.56-6.13) x10^3/uL Basophils # (0.01-0.08) x10^3/uL Sodium (135-145) mmol/L Potassium (3.5-5.1) mmol/L Chloride (98-107) mmol/L Carbon Dioxide (22-30) mmol/L Anion Gap (5-15) MEQ/L BUN (7-17) mg/dL Creatinine (0.52-1.04) mg/dL Estimated GFR ML/MIN Glucose (74-106) mg/dL POC Glucometer 146 H (50 to 500) mg/dL Lactic Acid (0.4-2.0) Calcium (8.4-10.2) mg/dL Magnesium (1.6-2.3) mg/dL Total Bilirubin (0.2-1.3) mg/dL AST (14-36) U/L ALT (0-35) U/L Alkaline Phosphatase (38-126) U/L Troponin I (0.000-0.033) ng/mL Serum Total Protein (6.3-8.2) g/dL Albumin (3.5-5.0) g/dL Lipase (23-300) U/L Urine Color (Yellow) Urine Appearance (Clear) Urine pH (4.6-8.0) Ur Specific [place] (1.005-1.030) Urine Protein (Negative) Urine Glucose (UA) (Negative) mg/dL Urine Ketones (Negative) Urine Blood (Negative) Urine Nitrite (Negative) Urine Bilirubin (Negative) Urine Urobilinogen (0.2) mg/dL Ur Leukocyte Esterase (Negative) U Hyaline Cast (Auto) (0-2) /LPF Urine Microscopic RBC (0-5) /HPF Urine Microscopic WBC (0-5) /HPF Ur Epithelial Cells (None Seen) /HPF Urine Bacteria (None Seen) /HPF Urine Culture Reflexed (NO) Accuchecks Date 02/16/24 Date 02/16/24 Date 02/16/24 Date 02/16/24 Time 12:52 Time 11:40 Time 10:36 Time 10:14 - Radiology Impressions Radiology Exams & Impressions: Radiology Procedures Category Date Time Status CHEST 1 VIEW (PORTABLE) Stat Exams 02/16/24 10:27 Completed - Other Procedures and Tests Respiratory Therapy 02/16/24 13:32 Oxygen Nasal Cannula 2 lpm Respiratory Therapy Consult ONCE Assessment/Plan (1) UTI (urinary tract infection) Current Visit: Yes Status: Acute Assessment & Plan: - Ceftriaxone started in ER- stopped as last visit UC shows she is resistant - will start [facility] pharmacy to dose for kidney function - gentle IV hydration-LR @ 50ml/hr - UC pending Code(s): N39.0 - URINARY TRACT INFECTION, SITE NOT SPECIFIED (2) Hypoglycemia Current Visit: Yes Status: Acute Assessment & Plan: - 2:2 UTI - Glucose 41 in ER on arrival - Improved with IVF in ER - IV with dextrose- gentle hydration - accucheck Q1 hr until stable then Q2 hr. -consider Q4 if doing better Code(s): E16.2 - HYPOGLYCEMIA, UNSPECIFIED (3) Hypercalcemia Current Visit: Yes Status: Acute Assessment & Plan: - Ca+ 10.3- monitor Code(s): E83.52 - HYPERCALCEMIA (4) Acute kidney injury superimposed on CKD Current Visit: Yes Status: Acute Assessment & Plan: - Creat 2.69 - Baseline 1.83 - gentle IVF - 2:2 UTI Code(s): N17.9 - ACUTE KIDNEY FAILURE, UNSPECIFIED; N18.9 - CHRONIC KIDNEY DISEASE, UNSPECIFIED (5) Hypokalemia Current Visit: Yes Status: Acute Assessment & Plan: - K+ 3.0- replaced per protol- trend - Tele - Hold spirolactone today d/t conflict with oral K+ replacement. Code(s): E87.6 - HYPOKALEMIA (6) Confusion Current Visit: No Status: Acute Assessment & Plan: - 2:2 UTI and hypoglycemia - improving- monitor Code(s): R41.0 - DISORIENTATION, UNSPECIFIED (7) Atrial fibrillation Current Visit: No Status: Chronic Assessment & Plan: - Chronic - Eliquis Code(s): I48.91 - UNSPECIFIED ATRIAL FIBRILLATION (8) CHF (congestive heart failure) Current Visit: No Status: Acute Qualifiers: Heart failure chronicity: chronic Assessment & Plan: - Not in acute exacerbation - Tele - CXR: Impression: New borderline cardiomegaly. Negative acute pneumonic process or CHF. 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 - Carb Consistent diet VTE: Eliquis PPI: Linda Next of KIN: Letty Dumont [phone] D/c plan: 1-2 days Code status: Full Code(s): E11.9 - TYPE 2 DIABETES MELLITUS WITHOUT COMPLICATIONS
[2024-02-16] MEDS ORDERED: GlucaGen 1 MG IM PRN (14:13)
[2024-02-16] MEDS ORDERED: D50W 50 ml Abboject IV PRN (14:13)
[2024-02-16] MEDS ORDERED: Glutose 15 GM ORAL GEL PO PRN (14:13)
[2024-02-16] MEDS ORDERED: Lactated Ringers 1,000 ML IV SCH (14:30)
[2024-02-16] MEDS ORDERED: TYLENOL 325 MG PO PRN (15:05)
[2024-02-16] MEDS ORDERED: Robitussin-Dm Syrup PO PRN (15:24)
[2024-02-16] MEDS: K-LYTE PO SCH (15:29)
[2024-02-16] MEDS: Dextrose 5%-Lr IV Solution 1000 ML 1,000 ML IV SCH (15:29)
[2024-02-16] MEDS: PHARMACY RENAL DOSING MC ONE (16:12)
[2024-02-16] MEDS: Advair Hfa 115/21 Common canister IH SCH (18:52)
[2024-02-16 21:31] LABS: Potassium 4.9 mmol/L (3.5-5.1)
[2024-02-16] MEDS: MERREM 500 MG in Sodium Chloride 100ML MINI-BAG PLUS 100 ML IV SCH (21:54)
[2024-02-16] MEDS ORDERED: NON-FORMULARY ITEM (Fluticasone Propion/Salmeterol [Advair 100-50 Diskus] 1 EACH Blst.W.De IH SCH (22:00)
[2024-02-16] MEDS: COREG 12.5 MG PO SCH (22:12)
[2024-02-16] MEDS: MELATONIN PO SCH (22:12)
[2024-02-16] MEDS: Flomax 0.4 MG PO SCH (22:12)
[2024-02-16] MEDS: ELIQUIS 2.5 MG TABLET PO SCH (22:13)
[2024-02-16] MEDS: NORVASC 5 MG PO SCH (22:13)
[2024-02-16] MEDS: Pepcid 20 MG PO SCH (22:13)
[2024-02-16] MEDS: FEOSOL 325 MG PO SCH (22:13)
[2024-02-17] MEDS ORDERED: HUMALOG ONE (07:39)
[2024-02-17 08:08] LABS: Hematocrit 25.3 % (34.1-44.9); Hemoglobin 8.2 g/dL (11.2-15.7); Mean Cell Volume 93.7 fL (79.4-94.8); Mean Corpuscular Hemoglobin 30.4 pg (25.6-32.2); Mean Corpuscular Hgb Concent. 32.4 g/dL (32.2-35.5); Mean Platelet Volume 12.2 fL (9.4-12.3); Platelet Count 224 x10^3/uL (182-369); White Blood Count 6.3 x10^3/uL (3.98-10.04)
[2024-02-17 08:34] LABS: ALBUMIN 3.3 g/dL (3.5-5.0); ANION GAP 14.1 MEQ/L (5-15); BILIRUBIN,TOTAL 0.3 mg/dL (0.2-1.3); Calcium 8.8 mg/dL (8.4-10.2); Creatinine 1 2.54 mg/dL (0.52-1.04); EST GLOMERULAR FILTRATION RATE 18.8 ML/MIN; MAGNESIUM 2.1 mg/dL (1.6-2.3); Potassium 4.2 mmol/L (3.5-5.1); Total Protein 6.4 g/dL (6.3-8.2)
[2024-02-17] MEDS: HUMALOG SQ SCH ×2 (09:08→12:03)
[2024-02-17] MEDS: Singulair 10 MG PO SCH (09:27)
[2024-02-17] MEDS: SYNTHROID 100 MCG PO SCH (09:40)
[2024-02-17] MEDS: Acidophilus TABLET PO SCH (09:40)
[2024-02-17] MEDS: FOLATE 1 MG PO SCH (09:41)
[2024-02-17] MEDS: CLARITIN 10 MG PO SCH (09:41)
[2024-02-17] MEDS: SYNTHROID 25 MCG PO SCH (09:41)
[2024-02-17] MEDS: Vitamin B-12 500 MCG PO SCH (09:41)
[2024-02-17] MEDS ORDERED: ROCEPHIN 1 GM / 100 ML NaCl 1 GM/100 ML IVPB IV SCH (10:00)
[2024-02-17] MEDS ORDERED: XYLOCAINE 1% HCL 20 ML MDV ONE (10:19)
[2024-02-17] MEDS: XYLOCAINE 1% HCL 20 ML MDV IJ ONE (10:30)
--- NOTE | 2024-02-17 11:30 | PCM.NOTE ---
Date and Time: 02/17/24 1125 Subjective Assessment: 02/12/24 is a 78 year old female with pmhx of gastroesophageal reflux disease, insulin-dependent diabetes, atrial fibrillation on Eliquis, TIAs, peripheral neuropathy, CHF, COPD, CKD, hyperlipidemia, hypertension and hypothyroidism. Today she was evaluated in the ER after she was found unresponsive with a blood sugar in the 30s. Minimal improvement with 2 IM injection of glucagon prior to arrival. Patient was awake alert and oriented on presentation to ER, not in any distress and no focal neurosymptoms. IN ER patient was given D50 glucose as was only 40 on presentation, it improved and 160s. She is started on D10 and also given a fluid bolus as patient was a little hypotensive. EKG is atrial fibrillation rate controlled with no ST elevation and negative troponins. Workup showed normal white count, chemistries with acute on chronic kidney failure with a baseline creatinine around 2 and today is 2.69. Potassium of 3.0 and a magnesium of 2.0, started on potassium replacement. Has normal lactate, does have UTI and given a dose of Rocephin in ER. Chest x-ray negative for acute CHF/consolidative findings. Patient is afebrile. Pt's unresponsiveness is likelt secondary to hypoglycemia and UTI. No need for CT imaging of head or any other stroke workup at this time. Will continue IVF with dextrose, antibiotics, and trend K+, trops, and cultures. 02/13/24 Pt resting in bed. IV went bad this morning. IVf with dextrose stopped as glucose improved. Will restart home dosing of insulin. Will Continue IVF w/o dextrose for gentle hydration and to improve TIM. Creat 2.54 and improved. UC shows gram negative, sensitivity pending. Continue Merrem for UTI based on culture hx and allergies. She states she is feeling better. Will d/c when UC results are back, likely tomorrow. She denies CP, SOB, abd. pain, N/V/D. - Review of Systems Constitutional: Weakness, No Fever, No Chills Eyes: No Symptoms Ears, Nose, & Throat: No Symptoms Respiratory: No Cough, No Short Of Breath Cardiac: No Chest Pain, No Edema, No Syncope Abdominal/Gastrointestinal: No Abdominal Pain, No Nausea, No Vomiting, No Diarrhea Genitourinary Symptoms: No Dysuria Musculoskeletal: No Back Pain, No Neck Pain Skin: No Rash Neurological: No Dizziness, No Focal Weakness, No Sensory Changes Psychological: No Symptoms Endocrine: No Symptoms Hematologic/Lymphatic: No Symptoms Immunological/Allergic: No Symptoms Objective Exam General Appearance: no apparent distress, alert, obese Neurologic Exam: alert, oriented x 3, cooperative, normal mood/affect, nml cerebellar function, sensation nml, motor weakness, No motor deficits Skin Exam: normal color, warm, dry Eye Exam: PERRL, EOMI, eyes nml inspection Ears, Nose, Throat Exam: normal ENT inspection, pharynx normal, moist mucous membranes Neck Exam: normal inspection, non-tender, supple, full range of motion Respiratory Exam: normal breath sounds, lungs clear, No respiratory distress Cardiovascular Exam: regular rate/rhythm, normal heart sounds Gastrointestinal/Abdomen Exam: soft, No tenderness, No mass Extremity Exam: normal inspection, normal range of motion Back Exam: normal inspection, normal range of motion, No CVA tenderness, No vertebral tenderness Pelvic Exam: deferred Rectal Exam: deferred Objective Data Vital Signs: Vital Signs - 24 hr Temp Pulse Resp BP BP Pulse Ox 02/17/24 08:23 97.8 F 66 18 158/73 97 02/17/24 04:00 97.3 F 68 16 115/55 97 02/16/24 23:42 98.4 F 70 16 117/55 97 02/16/24 22:09 79 20 99 02/16/24 20:00 97.8 F 75 17 116/58 97 02/16/24 16:00 97.5 F 82 22 124/57 98 02/16/24 14:05 96.8 F 94 H 17 105/74 99 02/16/24 13:32 82 14 99 02/16/24 12:57 100 02/16/24 12:40 75 24 129/77 99 02/16/24 12:30 75 17 114/82 100 02/16/24 12:21 80 20 117/97 100 02/16/24 12:20 81 23 99 02/16/24 12:11 68 21 100 02/16/24 12:00 81 18 89/52 100 02/16/24 11:53 73 19 94/55 99 02/16/24 11:30 74 17 75/47 97 Pain Assessment - Last Documented Pain Intensity 0 Intake and Output: Intake & Output 02/14/24 02/15/24 02/16/24 02/17/24 11:59 11:59 11:59 11:59 Intake Total 750 Output Total 700 Balance 50 Weight 84.1 kg 82.7 kg Lab Results: Lab Results-Last 24 Hours 02/16/24 02/16/24 02/16/24 Range/Units 10:27 10:43 10:43 WBC (3.98-10.04) x10^3/uL RBC (3.93-5.22) x10^6/uL Hgb (11.2-15.7) g/dL Hct (34.1-44.9) % MCV (79.4-94.8) fL MCH (25.6-32.2) pg MCHC (32.2-35.5) g/dL RDW (11.7-14.4) % Plt Count (182-369) x10^3/uL MPV (9.4-12.3) fL Sodium 141 (135-145) mmol/L Potassium 3.0 L* (3.5-5.1) mmol/L Chloride 103 (98-107) mmol/L Carbon Dioxide 27 (22-30) mmol/L Anion Gap 14.1 (5-15) MEQ/L BUN 54 H (7-17) mg/dL Creatinine 2.69 H (0.52-1.04) mg/dL Estimated GFR 17.6 ML/MIN Glucose 41 L* (74-106) mg/dL POC Glucometer (74 to 106) mg/dL Hemoglobin A1c (4.5-6.0) % Calcium 10.3 H (8.4-10.2) mg/dL Magnesium (1.6-2.3) mg/dL Total Bilirubin 0.50 (0.2-1.3) mg/dL AST 30 (14-36) U/L ALT 31 (0-35) U/L Alkaline Phosphatase 71 (38-126) U/L Troponin I 0.022 (0.000-0.033) ng/mL Serum Total Protein 7.8 (6.3-8.2) g/dL Albumin 4.1 (3.5-5.0) g/dL Lipase 52 (23-300) U/L Urine Color Yellow (Yellow) Urine Appearance Cloudy A (Clear) Urine pH 7.0 (4.6-8.0) Ur Specific [place] 1.010 (1.005-1.030) Urine Protein 30 (Negative) Urine Glucose (UA) Negative (Negative) mg/dL Urine Ketones Negative (Negative) Urine Blood Negative (Negative) Urine Nitrite Positive A (Negative) Urine Bilirubin Negative (Negative) Urine Urobilinogen 0.2 (0.2) mg/dL Ur Leukocyte Esterase Moderate A (Negative) U Hyaline Cast (Auto) NONE SEEN (0-2) /LPF Urine Microscopic RBC 0-2 (0-5) /HPF Urine Microscopic WBC 11-20 A (0-5) /HPF Ur Epithelial Cells Moderate A (None Seen) /HPF Urine Bacteria Many A (None Seen) /HPF Urine Culture Reflexed YES (NO) 02/16/24 02/16/24 02/16/24 Range/Units 11:40 11:40 12:52 WBC (3.98-10.04) x10^3/uL RBC (3.93-5.22) x10^6/uL Hgb (11.2-15.7) g/dL Hct (34.1-44.9) % MCV (79.4-94.8) fL MCH (25.6-32.2) pg MCHC (32.2-35.5) g/dL RDW (11.7-14.4) % Plt Count (182-369) x10^3/uL MPV (9.4-12.3) fL Sodium (135-145) mmol/L Potassium (3.5-5.1) mmol/L Chloride (98-107) mmol/L Carbon Dioxide (22-30) mmol/L Anion Gap (5-15) MEQ/L BUN (7-17) mg/dL Creatinine (0.52-1.04) mg/dL Estimated GFR ML/MIN Glucose (74-106) mg/dL POC Glucometer 132 H 146 H (74 to 106) mg/dL Hemoglobin A1c (4.5-6.0) % Calcium (8.4-10.2) mg/dL Magnesium 2.0 (1.6-2.3) mg/dL Total Bilirubin (0.2-1.3) mg/dL AST (14-36) U/L ALT (0-35) U/L Alkaline Phosphatase (38-126) U/L Troponin I (0.000-0.033) ng/mL Serum Total Protein (6.3-8.2) g/dL Albumin (3.5-5.0) g/dL Lipase (23-300) U/L Urine Color (Yellow) Urine Appearance (Clear) Urine pH (4.6-8.0) Ur Specific [place] (1.005-1.030) Urine Protein (Negative) Urine Glucose (UA) (Negative) mg/dL Urine Ketones (Negative) Urine Blood (Negative) Urine Nitrite (Negative) Urine Bilirubin (Negative) Urine Urobilinogen (0.2) mg/dL Ur Leukocyte Esterase (Negative) U Hyaline Cast (Auto) (0-2) /LPF Urine Microscopic RBC (0-5) /HPF Urine Microscopic WBC (0-5) /HPF Ur Epithelial Cells (None Seen) /HPF Urine Bacteria (None Seen) /HPF Urine Culture Reflexed (NO) 02/16/24 02/16/24 02/16/24 Range/Units 14:29 15:26 15:29 WBC (3.98-10.04) x10^3/uL RBC (3.93-5.22) x10^6/uL Hgb (11.2-15.7) g/dL Hct (34.1-44.9) % MCV (79.4-94.8) fL MCH (25.6-32.2) pg MCHC (32.2-35.5) g/dL RDW (11.7-14.4) % Plt Count (182-369) x10^3/uL MPV (9.4-12.3) fL Sodium (135-145) mmol/L Potassium (3.5-5.1) mmol/L Chloride (98-107) mmol/L Carbon Dioxide (22-30) mmol/L Anion Gap (5-15) MEQ/L BUN (7-17) mg/dL Creatinine (0.52-1.04) mg/dL Estimated GFR ML/MIN Glucose (74-106) mg/dL POC Glucometer 151 H 143 H (74 to 106) mg/dL Hemoglobin A1c (4.5-6.0) % Calcium (8.4-10.2) mg/dL Magnesium (1.6-2.3) mg/dL Total Bilirubin (0.2-1.3) mg/dL AST (14-36) U/L ALT (0-35) U/L Alkaline Phosphatase (38-126) U/L Troponin I 0.018 (0.000-0.033) ng/mL Serum Total Protein (6.3-8.2) g/dL Albumin (3.5-5.0) g/dL Lipase (23-300) U/L Urine Color (Yellow) Urine Appearance (Clear) Urine pH (4.6-8.0) Ur Specific [place] (1.005-1.030) Urine Protein (Negative) Urine Glucose (UA) (Negative) mg/dL Urine Ketones (Negative) Urine Blood (Negative) Urine Nitrite (Negative) Urine Bilirubin (Negative) Urine Urobilinogen (0.2) mg/dL Ur Leukocyte Esterase (Negative) U Hyaline Cast (Auto) (0-2) /LPF Urine Microscopic RBC (0-5) /HPF Urine Microscopic WBC (0-5) /HPF Ur Epithelial Cells (None Seen) /HPF Urine Bacteria (None Seen) /HPF Urine Culture Reflexed (NO) 02/16/24 02/16/24 02/16/24 Range/Units 16:57 18:00 20:29 WBC (3.98-10.04) x10^3/uL RBC (3.93-5.22) x10^6/uL Hgb (11.2-15.7) g/dL Hct (34.1-44.9) % MCV (79.4-94.8) fL MCH (25.6-32.2) pg MCHC (32.2-35.5) g/dL RDW (11.7-14.4) % Plt Count (182-369) x10^3/uL MPV (9.4-12.3) fL Sodium (135-145) mmol/L Potassium (3.5-5.1) mmol/L Chloride (98-107) mmol/L Carbon Dioxide (22-30) mmol/L Anion Gap (5-15) MEQ/L BUN (7-17) mg/dL Creatinine (0.52-1.04) mg/dL Estimated GFR ML/MIN Glucose (74-106) mg/dL POC Glucometer 128 H 137 H 298 H (74 to 106) mg/dL Hemoglobin A1c (4.5-6.0) % Calcium (8.4-10.2) mg/dL Magnesium (1.6-2.3) mg/dL Total Bilirubin (0.2-1.3) mg/dL AST (14-36) U/L ALT (0-35) U/L Alkaline Phosphatase (38-126) U/L Troponin I (0.000-0.033) ng/mL Serum Total Protein (6.3-8.2) g/dL Albumin (3.5-5.0) g/dL Lipase (23-300) U/L Urine Color (Yellow) Urine Appearance (Clear) Urine pH (4.6-8.0) Ur Specific [place] (1.005-1.030) Urine Protein (Negative) Urine Glucose (UA) (Negative) mg/dL Urine Ketones (Negative) Urine Blood (Negative) Urine Nitrite (Negative) Urine Bilirubin (Negative) Urine Urobilinogen (0.2) mg/dL Ur Leukocyte Esterase (Negative) U Hyaline Cast (Auto) (0-2) /LPF Urine Microscopic RBC (0-5) /HPF Urine Microscopic WBC (0-5) /HPF Ur Epithelial Cells (None Seen) /HPF Urine Bacteria (None Seen) /HPF Urine Culture Reflexed (NO) 02/16/24 02/16/24 02/17/24 Range/Units 21:15 21:15 00:01 WBC (3.98-10.04) x10^3/uL RBC (3.93-5.22) x10^6/uL Hgb (11.2-15.7) g/dL Hct (34.1-44.9) % MCV (79.4-94.8) fL MCH (25.6-32.2) pg MCHC (32.2-35.5) g/dL RDW (11.7-14.4) % Plt Count (182-369) x10^3/uL MPV (9.4-12.3) fL Sodium (135-145) mmol/L Potassium 4.9 D (3.5-5.1) mmol/L Chloride (98-107) mmol/L Carbon Dioxide (22-30) mmol/L Anion Gap (5-15) MEQ/L BUN (7-17) mg/dL Creatinine (0.52-1.04) mg/dL Estimated GFR ML/MIN Glucose 292 H (74-106) mg/dL POC Glucometer 266 H (74 to 106) mg/dL Hemoglobin A1c (4.5-6.0) % Calcium (8.4-10.2) mg/dL Magnesium (1.6-2.3) mg/dL Total Bilirubin (0.2-1.3) mg/dL AST (14-36) U/L ALT (0-35) U/L Alkaline Phosphatase (38-126) U/L Troponin I 0.020 (0.000-0.033) ng/mL Serum Total Protein (6.3-8.2) g/dL Albumin (3.5-5.0) g/dL Lipase (23-300) U/L Urine Color (Yellow) Urine Appearance (Clear) Urine pH (4.6-8.0) Ur Specific [place] (1.005-1.030) Urine Protein (Negative) Urine Glucose (UA) (Negative) mg/dL Urine Ketones (Negative) Urine Blood (Negative) Urine Nitrite (Negative) Urine Bilirubin (Negative) Urine Urobilinogen (0.2) mg/dL Ur Leukocyte Esterase (Negative) U Hyaline Cast (Auto) (0-2) /LPF Urine Microscopic RBC (0-5) /HPF Urine Microscopic WBC (0-5) /HPF Ur Epithelial Cells (None Seen) /HPF Urine Bacteria (None Seen) /HPF Urine Culture Reflexed (NO) 02/17/24 02/17/24 02/17/24 Range/Units 03:10 07:12 08:00 WBC (3.98-10.04) x10^3/uL RBC (3.93-5.22) x10^6/uL Hgb (11.2-15.7) g/dL Hct (34.1-44.9) % MCV (79.4-94.8) fL MCH (25.6-32.2) pg MCHC (32.2-35.5) g/dL RDW (11.7-14.4) % Plt Count (182-369) x10^3/uL MPV (9.4-12.3) fL Sodium (135-145) mmol/L Potassium (3.5-5.1) mmol/L Chloride (98-107) mmol/L Carbon Dioxide (22-30) mmol/L Anion Gap (5-15) MEQ/L BUN (7-17) mg/dL Creatinine (0.52-1.04) mg/dL Estimated GFR ML/MIN Glucose (74-106) mg/dL POC Glucometer 267 H 231 H (74 to 106) mg/dL Hemoglobin A1c 7.36 H (4.5-6.0) % Calcium (8.4-10.2) mg/dL Magnesium (1.6-2.3) mg/dL Total Bilirubin (0.2-1.3) mg/dL AST (14-36) U/L ALT (0-35) U/L Alkaline Phosphatase (38-126) U/L Troponin I (0.000-0.033) ng/mL Serum Total Protein (6.3-8.2) g/dL Albumin (3.5-5.0) g/dL Lipase (23-300) U/L Urine Color (Yellow) Urine Appearance (Clear) Urine pH (4.6-8.0) Ur Specific [place] (1.005-1.030) Urine Protein (Negative) Urine Glucose (UA) (Negative) mg/dL Urine Ketones (Negative) Urine Blood (Negative) Urine Nitrite (Negative) Urine Bilirubin (Negative) Urine Urobilinogen (0.2) mg/dL Ur Leukocyte Esterase (Negative) U Hyaline Cast (Auto) (0-2) /LPF Urine Microscopic RBC (0-5) /HPF Urine Microscopic WBC (0-5) /HPF Ur Epithelial Cells (None Seen) /HPF Urine Bacteria (None Seen) /HPF Urine Culture Reflexed (NO) 02/17/24 02/17/24 Range/Units 08:00 08:00 WBC 6.3 (3.98-10.04) x10^3/uL RBC 2.70 L (3.93-5.22) x10^6/uL Hgb 8.2 L D (11.2-15.7) g/dL Hct 25.3 L (34.1-44.9) % MCV 93.7 (79.4-94.8) fL MCH 30.4 (25.6-32.2) pg MCHC 32.4 (32.2-35.5) g/dL RDW 13.0 (11.7-14.4) % Plt Count 224 (182-369) x10^3/uL MPV 12.2 (9.4-12.3) fL Sodium 139 (135-145) mmol/L Potassium 4.2 (3.5-5.1) mmol/L Chloride 104 (98-107) mmol/L Carbon Dioxide 25 (22-30) mmol/L Anion Gap 14.1 (5-15) MEQ/L BUN 53 H (7-17) mg/dL Creatinine 2.54 H (0.52-1.04) mg/dL Estimated GFR 18.8 ML/MIN Glucose 253 H (74-106) mg/dL POC Glucometer (74 to 106) mg/dL Hemoglobin A1c (4.5-6.0) % Calcium 8.8 (8.4-10.2) mg/dL Magnesium 2.1 (1.6-2.3) mg/dL Total Bilirubin 0.30 (0.2-1.3) mg/dL AST 26 (14-36) U/L ALT 30 (0-35) U/L Alkaline Phosphatase 68 (38-126) U/L Troponin I (0.000-0.033) ng/mL Serum Total Protein 6.4 (6.3-8.2) g/dL Albumin 3.3 L (3.5-5.0) g/dL Lipase (23-300) U/L Urine Color (Yellow) Urine Appearance (Clear) Urine pH (4.6-8.0) Ur Specific [place] (1.005-1.030) Urine Protein (Negative) Urine Glucose (UA) (Negative) mg/dL Urine Ketones (Negative) Urine Blood (Negative) Urine Nitrite (Negative) Urine Bilirubin (Negative) Urine Urobilinogen (0.2) mg/dL Ur Leukocyte Esterase (Negative) U Hyaline Cast (Auto) (0-2) /LPF Urine Microscopic RBC (0-5) /HPF Urine Microscopic WBC (0-5) /HPF Ur Epithelial Cells (None Seen) /HPF Urine Bacteria (None Seen) /HPF Urine Culture Reflexed (NO) Radiology Exams: Radiology Procedures Category Date Time Status CHEST 1 VIEW (PORTABLE) Stat Exams 02/16/24 10:27 Completed Multi-Disciplinary Progress Notes: Multi-Disciplinary Progress Notes 02/17/24 09:35 Case Management Note by Funmi Rivas S/W PATIENT AND SHE PLANS TO RETURN TO [facility] [place]. SPOKE WITH [facility] AT [facility] AND THEY ARE ABLE TO ACCEPT PATIENT BACK WHENEVER SHE IS DISCHARGED. Initialized on 02/17/24 09:35 - END OF NOTE Assessment/Plan (1) UTI (urinary tract infection) Current Visit: Yes Status: Acute Code(s): N39.0 - URINARY TRACT INFECTION, SITE NOT SPECIFIED (2) Hypoglycemia Current Visit: Yes Status: Acute Code(s): E16.2 - HYPOGLYCEMIA, UNSPECIFIED (3) Hypercalcemia Current Visit: Yes Status: Acute Code(s): E83.52 - HYPERCALCEMIA (4) Acute kidney injury superimposed on CKD Current Visit: Yes Status: Acute Code(s): N17.9 - ACUTE KIDNEY FAILURE, UNSPECIFIED; N18.9 - CHRONIC KIDNEY DISEASE, UNSPECIFIED (5) Hypokalemia Current Visit: Yes Status: Acute Code(s): E87.6 - HYPOKALEMIA (6) Confusion Current Visit: No Status: Acute Code(s): R41.0 - DISORIENTATION, UNSPECIFIED (7) Atrial fibrillation Current Visit: No Status: Chronic Code(s): I48.91 - UNSPECIFIED ATRIAL FIBRILLATION (8) CHF (congestive heart failure) Current Visit: No Status: Acute Qualifiers: Heart failure chronicity: chronic Code(s): I50.9 - HEART FAILURE, UNSPECIFIED (9) HTN (hypertension) Current Visit: No Status: Chronic Code(s): I10 - ESSENTIAL (PRIMARY) HYPERTENSION (10) DM II (diabetes mellitus, type II), controlled Current Visit: No Status: Acute Qualifiers: 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: with shelter use Diabetes mellitus complication status: with kidney complications Diabetes mellitus complication detail: with chronic kidney disease Assessment & Plan: 1) UTI (urinary tract infection) Current Visit: Yes Status: Acute Assessment & Plan: - Ceftriaxone started in ER- stopped as last visit UC shows she is resistant - will start Merrem pharmacy to dose for kidney function - gentle IV hydration-LR @ 50ml/hr - UC pending 02/16 - UC Gram negative- sensitivity pending Code(s): N39.0 - URINARY TRACT INFECTION, SITE NOT SPECIFIED (2) Hypoglycemia Current Visit: Yes Status: Acute Assessment & Plan: - 2:2 UTI - Glucose 41 in ER on arrival - Improved with IVF in ER - IV with dextrose- gentle hydration - accucheck Q1 hr until stable then Q2 hr. -consider Q4 if doing better 02/16 - resolved - accuchecks AC/HS Code(s): E16.2 - HYPOGLYCEMIA, UNSPECIFIED (3) Hypercalcemia Current Visit: Yes Status: Acute Assessment & Plan: - Ca+ 10.3- monitor 02/16 - Ca+ 8.8 Code(s): E83.52 - HYPERCALCEMIA (4) Acute kidney injury superimposed on CKD Current Visit: Yes Status: Acute Assessment & Plan: - Creat 2.69 - Baseline 1.83 - gentle IVF - 2:2 UTI 02/16 - Creat 2.54- improved- trend - Started LR @ 50ml/hr Code(s): N17.9 - ACUTE KIDNEY FAILURE, UNSPECIFIED; N18.9 - CHRONIC KIDNEY DISEASE, UNSPECIFIED (5) Hypokalemia Current Visit: Yes Status: Acute Assessment & Plan: - K+ 3.0- replaced per protol- trend - Tele - Hold spirolactone today d/t conflict with oral K+ replacement. Code(s): E87.6 - HYPOKALEMIA (6) Confusion Current Visit: No Status: Acute Assessment & Plan: - 2:2 UTI and hypoglycemia - improving- monitor 02/16 - resolved Code(s): R41.0 - DISORIENTATION, UNSPECIFIED (7) Atrial fibrillation Current Visit: No Status: Chronic Assessment & Plan: - Chronic - Eliquis Code(s): I48.91 - UNSPECIFIED ATRIAL FIBRILLATION (8) CHF (congestive heart failure) Current Visit: No Status: Acute Qualifiers: Heart failure chronicity: chronic Assessment & Plan: - Not in acute exacerbation - Tele - CXR: Impression: New borderline cardiomegaly. Negative acute pneumonic process or CHF. 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
[2024-02-17] MEDS: Xylocaine 1% Vial 30 ML PF IJ ONE (11:33)
[2024-02-17] MEDS: Lactated Ringers 1,000 ML IV SCH (15:51)
[2024-02-17 20:39] LABS: 027 TOX PROD PRESUMPTIVE NEGATIVE (NEGATIVE); TOXIGENIC C. DIFF ORG NEGATIVE (NEGATIVE)
[2024-02-17] MEDS ORDERED: Lasix 20 MG/2 ML ONE (20:49)
[2024-02-17] MEDS: Lasix 20 MG/2 ML IV ONE ×3 (21:19→22:09)
--- NOTE | 2024-02-17 21:28 | XRAY ---
Indication: Increased short of breath. Comparison: February 16, 2024 Portable chest again demonstrates cardiomegaly with cardiac valve replacement and tortuous descending aorta. New diffuse pulmonary edema without consolidation/large effusion concerning for mild/early CHF versus fluid overload. Superimposed pneumonia completely excluded.
[2024-02-17] MEDS ORDERED: Zofran 4 MG/2 ML VIAL IV PRN (22:24)
[2024-02-17] MEDS: Lantus Insulin SQ SCH (22:43)
[2024-02-18 06:07] LABS: Hematocrit 28.1 % (34.1-44.9); Hemoglobin 9.1 g/dL (11.2-15.7); Mean Cell Volume 91.5 fL (79.4-94.8); Mean Corpuscular Hemoglobin 29.6 pg (25.6-32.2); Mean Corpuscular Hgb Concent. 32.4 g/dL (32.2-35.5); Mean Platelet Volume 12.9 fL (9.4-12.3); Platelet Count 258 x10^3/uL (182-369); Red Blood Count 3.07 x10^6/uL (3.93-5.22); White Blood Count 13.2 x10^3/uL (3.98-10.04)
[2024-02-18 06:30] LABS: ALBUMIN 3.6 g/dL (3.5-5.0); ANION GAP 17.8 MEQ/L (5-15); BILIRUBIN,TOTAL 0.5 mg/dL (0.2-1.3); Calcium 8.6 mg/dL (8.4-10.2); Creatinine 1 2.67 mg/dL (0.52-1.04); EST GLOMERULAR FILTRATION RATE 17.8 ML/MIN; Potassium 4.2 mmol/L (3.5-5.1); Total Protein 6.8 g/dL (6.3-8.2)
--- NOTE | 2024-02-18 09:04 | XRAY ---
CLINICAL HISTORY: increased WBC, Temp, Oxygen demand COMPARISON: CR 09/22/2023 TECHNIQUE: X-rays of the chest in AP portable view. FINDINGS: Patchy opacifications are noted in the right upper and lower zones, and left lower zone Both costophrenic angles are clear Cardiomegaly is noted The bony thorax is unremarkable Both verenice are prominent and increased perihilar vascular marking IMPRESSION: 1. Patchy opacifications are noted in both lungs could be secondary to pulmonary edema or infection 2. Cardiomegaly 3. Both verenice are prominent and have increased perihilar vascular marking suggesting pulmonary edema/vascular congestion 4. Findings are new since the last study. Electronically Signed by: Claudine Monge MD. (02/18/2024 09:00:21 EDT)
--- NOTE | 2024-02-18 11:01 | PCM.NOTE ---
Date and Time: 02/18/24 1052 Subjective Assessment: 02/12/24 is a 78 year old female with pmhx of gastroesophageal reflux disease, insulin-dependent diabetes, atrial fibrillation on Eliquis, TIAs, peripheral neuropathy, CHF, COPD, CKD, hyperlipidemia, hypertension and hypothyroidism. Today she was evaluated in the ER after she was found unresponsive with a blood sugar in the 30s. Minimal improvement with 2 IM injection of glucagon prior to arrival. Patient was awake alert and oriented on presentation to ER, not in any distress and no focal neurosymptoms. IN ER patient was given D50 glucose as was only 40 on presentation, it improved and 160s. She is started on D10 and also given a fluid bolus as patient was a little hypotensive. EKG is atrial fibrillation rate controlled with no ST elevation and negative troponins. Workup showed normal white count, chemistries with acute on chronic kidney failure with a baseline creatinine around 2 and today is 2.69. Potassium of 3.0 and a magnesium of 2.0, started on potassium replacement. Has normal lactate, does have UTI and given a dose of Rocephin in ER. Chest x-ray negative for acute CHF/consolidative findings. Patient is afebrile. Pt's unresponsiveness is likelt secondary to hypoglycemia and UTI. No need for CT imaging of head or any other stroke workup at this time. Will continue IVF with dextrose, antibiotics, and trend K+, trops, and cultures. 02/13/24 Pt resting in bed. IV went bad this morning. IVf with dextrose stopped as glucose improved. Will restart home dosing of insulin. Will Continue IVF w/o dextrose for gentle hydration and to improve TIM. Creat 2.54 and improved. UC shows gram negative, sensitivity pending. Continue Merrem for UTI based on culture hx and allergies. She states she is feeling better. Will d/c when UC results are back, likely tomorrow. She denies CP, SOB, abd. pain, N/V/D. 02/18/24 Pt resting in the chair this morning after her bath. She states she feels better today. She refused her insulin last night and now her glucose is elevated this AM. Hypoglycemia resolved. She apparently has an episode of flash pulm edema last night and was given Lasix. Therefore creat and gap a bit elevated. UC ESBL + and Klebseilla Pneumoniae. Sensitivity shows merrem works well for pt. Pt developed temp 99 overnight. WBC up at 13.2. She denies CP, SOb, abd. pain, N/V/D. - Review of Systems Constitutional: No Fever, No Chills Eyes: No Symptoms Ears, Nose, & Throat: No Symptoms Respiratory: No Cough, No Short Of Breath Cardiac: No Chest Pain, No Edema, No Syncope Abdominal/Gastrointestinal: No Abdominal Pain, No Nausea, No Vomiting, No Diarrhea Genitourinary Symptoms: No Dysuria Musculoskeletal: No Back Pain, No Neck Pain Skin: No Rash Neurological: No Dizziness, No Focal Weakness, No Sensory Changes Psychological: No Symptoms Endocrine: No Symptoms Hematologic/Lymphatic: No Symptoms Immunological/Allergic: No Symptoms Objective Exam General Appearance: no apparent distress, alert Neurologic Exam: alert, oriented x 3, cooperative, normal mood/affect, nml cerebellar function, sensation nml, No motor deficits Skin Exam: normal color, warm, dry Eye Exam: PERRL, EOMI, eyes nml inspection Ears, Nose, Throat Exam: normal ENT inspection, pharynx normal, moist mucous membranes Neck Exam: normal inspection, non-tender, supple, full range of motion Respiratory Exam: normal breath sounds, lungs clear, No respiratory distress Cardiovascular Exam: regular rate/rhythm, normal heart sounds Gastrointestinal/Abdomen Exam: soft, No tenderness, No mass Extremity Exam: normal inspection, normal range of motion Back Exam: normal inspection, normal range of motion, No CVA tenderness, No ping tebral tenderness Pelvic Exam: deferred Rectal Exam: deferred Objective Data Vital Signs: Vital Signs - 24 hr Temp Pulse Resp BP Pulse Ox 02/18/24 08:17 100 H 22 97 02/18/24 07:19 99.1 F 95 H 22 165/75 95 02/18/24 04:00 97 H 29 H 138/81 97 02/17/24 23:42 113 H 142/89 02/17/24 19:49 99.2 F 90 19 115/66 93 L 02/17/24 19:12 90 16 93 L 02/17/24 16:00 98.2 F 82 20 146/78 97 02/17/24 13:22 72 18 94 L 02/17/24 12:00 98.4 F 74 16 131/72 99 Pain Assessment - Last Documented Pain Intensity 0 Intake and Output: Intake & Output 02/15/24 02/16/24 02/17/24 02/18/24 11:59 11:59 11:59 11:59 Intake Total 750 1000 Output Total 700 400 Balance 50 600 Weight 84.1 kg 82.7 kg Lab Results: Lab Results-Last 24 Hours 02/16/24 02/17/24 02/17/24 Range/Units 10:27 11:54 16:21 WBC (3.98-10.04) x10^3/uL RBC (3.93-5.22) x10^6/uL Hgb (11.2-15.7) g/dL Hct (34.1-44.9) % MCV (79.4-94.8) fL MCH (25.6-32.2) pg MCHC (32.2-35.5) g/dL RDW (11.7-14.4) % Plt Count (182-369) x10^3/uL MPV (9.4-12.3) fL Sodium (135-145) mmol/L Potassium (3.5-5.1) mmol/L Chloride (98-107) mmol/L Carbon Dioxide (22-30) mmol/L Anion Gap (5-15) MEQ/L BUN (7-17) mg/dL Creatinine (0.52-1.04) mg/dL Estimated GFR ML/MIN Glucose (74-106) mg/dL POC Glucometer 113 H 205 H (74 to 106) mg/dL Calcium (8.4-10.2) mg/dL Total Bilirubin (0.2-1.3) mg/dL AST (14-36) U/L ALT (0-35) U/L Alkaline Phosphatase (38-126) U/L Serum Total Protein (6.3-8.2) g/dL Albumin (3.5-5.0) g/dL Urine Color Yellow (Yellow) Urine Appearance Cloudy A (Clear) Urine pH 7.0 (4.6-8.0) Ur Specific [place] 1.010 (1.005-1.030) Urine Protein 30 (Negative) Urine Glucose (UA) Negative (Negative) mg/dL Urine Ketones Negative (Negative) Urine Blood Negative (Negative) Urine Nitrite Positive A (Negative) Urine Bilirubin Negative (Negative) Urine Urobilinogen 0.2 (0.2) mg/dL Ur Leukocyte Esterase Moderate A (Negative) U Hyaline Cast (Auto) NONE SEEN (0-2) /LPF Urine Microscopic RBC 0-2 (0-5) /HPF Urine Microscopic WBC 11-20 A (0-5) /HPF Ur Epithelial Cells Moderate A (None Seen) /HPF Urine Bacteria Many A (None Seen) /HPF Urine Culture Reflexed YES (NO) C. difficile Screen (NEGATIVE) C.difficile 027-NAP1-B1 (NEGATIVE) 02/17/24 02/17/24 02/17/24 Range/Units 19:53 20:57 22:38 WBC (3.98-10.04) x10^3/uL RBC (3.93-5.22) x10^6/uL Hgb (11.2-15.7) g/dL Hct (34.1-44.9) % MCV (79.4-94.8) fL MCH (25.6-32.2) pg MCHC (32.2-35.5) g/dL RDW (11.7-14.4) % Plt Count (182-369) x10^3/uL MPV (9.4-12.3) fL Sodium (135-145) mmol/L Potassium (3.5-5.1) mmol/L Chloride (98-107) mmol/L Carbon Dioxide (22-30) mmol/L Anion Gap (5-15) MEQ/L BUN (7-17) mg/dL Creatinine (0.52-1.04) mg/dL Estimated GFR ML/MIN Glucose (74-106) mg/dL POC Glucometer 220 H 217 H (74 to 106) mg/dL Calcium (8.4-10.2) mg/dL Total Bilirubin (0.2-1.3) mg/dL AST (14-36) U/L ALT (0-35) U/L Alkaline Phosphatase (38-126) U/L Serum Total Protein (6.3-8.2) g/dL Albumin (3.5-5.0) g/dL Urine Color (Yellow) Urine Appearance (Clear) Urine pH (4.6-8.0) Ur Specific [place] (1.005-1.030) Urine Protein (Negative) Urine Glucose (UA) (Negative) mg/dL Urine Ketones (Negative) Urine Blood (Negative) Urine Nitrite (Negative) Urine Bilirubin (Negative) Urine Urobilinogen (0.2) mg/dL Ur Leukocyte Esterase (Negative) U Hyaline Cast (Auto) (0-2) /LPF Urine Microscopic RBC (0-5) /HPF Urine Microscopic WBC (0-5) /HPF Ur Epithelial Cells (None Seen) /HPF Urine Bacteria (None Seen) /HPF Urine Culture Reflexed (NO) C. difficile Screen NEGATIVE (NEGATIVE) C.difficile 027-NAP1-B1 PRESUMPTIVE NEGATIVE (NEGATIVE) 02/18/24 02/18/24 02/18/24 Range/Units 05:20 05:20 07:03 WBC 13.2 H (3.98-10.04) x10^3/uL RBC 3.07 L (3.93-5.22) x10^6/uL Hgb 9.1 L (11.2-15.7) g/dL Hct 28.1 L (34.1-44.9) % MCV 91.5 (79.4-94.8) fL MCH 29.6 (25.6-32.2) pg MCHC 32.4 (32.2-35.5) g/dL RDW 13.0 (11.7-14.4) % Plt Count 258 (182-369) x10^3/uL MPV 12.9 H (9.4-12.3) fL Sodium 137 (135-145) mmol/L Potassium 4.2 (3.5-5.1) mmol/L Chloride 102 (98-107) mmol/L Carbon Dioxide 21 L (22-30) mmol/L Anion Gap 17.8 H (5-15) MEQ/L BUN 55 H (7-17) mg/dL Creatinine 2.67 H (0.52-1.04) mg/dL Estimated GFR 17.8 ML/MIN Glucose 325 H (74-106) mg/dL POC Glucometer 349 H (74 to 106) mg/dL Calcium 8.6 (8.4-10.2) mg/dL Total Bilirubin 0.50 (0.2-1.3) mg/dL AST 23 (14-36) U/L ALT 27 (0-35) U/L Alkaline Phosphatase 72 (38-126) U/L Serum Total Protein 6.8 (6.3-8.2) g/dL Albumin 3.6 (3.5-5.0) g/dL Urine Color (Yellow) Urine Appearance (Clear) Urine pH (4.6-8.0) Ur Specific [place] (1.005-1.030) Urine Protein (Negative) Urine Glucose (UA) (Negative) mg/dL Urine Ketones (Negative) Urine Blood (Negative) Urine Nitrite (Negative) Urine Bilirubin (Negative) Urine Urobilinogen (0.2) mg/dL Ur Leukocyte Esterase (Negative) U Hyaline Cast (Auto) (0-2) /LPF Urine Microscopic RBC (0-5) /HPF Urine Microscopic WBC (0-5) /HPF Ur Epithelial Cells (None Seen) /HPF Urine Bacteria (None Seen) /HPF Urine Culture Reflexed (NO) C. difficile Screen (NEGATIVE) C.difficile 027-NAP1-B1 (NEGATIVE) Radiology Exams: Radiology Procedures Category Date Time Status CHEST 1 VIEW (PORTABLE) Stat Exams 02/16/24 10:27 Completed CHEST 1 VIEW (PORTABLE) Stat Exams 02/17/24 20:32 Completed CHEST 1 VIEW (PORTABLE) Stat Exams 02/18/24 07:29 Completed Multi-Disciplinary Progress Notes: Multi-Disciplinary Progress Notes 02/17/24 22:53 Respiratory Note by Ana Bean 2220 At bedside with patient, removed Bipap due to vomiting, placed patient on 12LNC, SPO2 92%. RN and MD notified Initialized on 02/17/24 22:53 - END OF NOTE Assessment/Plan (1) UTI (urinary tract infection) Current Visit: Yes Status: Acute Code(s): N39.0 - URINARY TRACT INFECTION, SITE NOT SPECIFIED (2) Hypoglycemia Current Visit: Yes Status: Acute Code(s): E16.2 - HYPOGLYCEMIA, UNSPECIFIED (3) Hypercalcemia Current Visit: Yes Status: Acute Code(s): E83.52 - HYPERCALCEMIA (4) Acute kidney injury superimposed on CKD Current Visit: Yes Status: Acute Code(s): N17.9 - ACUTE KIDNEY FAILURE, UNSPECIFIED; N18.9 - CHRONIC KIDNEY DISEASE, UNSPECIFIED (5) Hypokalemia Current Visit: Yes Status: Acute Code(s): E87.6 - HYPOKALEMIA (6) Confusion Current Visit: No Status: Acute Code(s): R41.0 - DISORIENTATION, UNSPECIFIED (7) Atrial fibrillation Current Visit: No Status: Chronic Code(s): I48.91 - UNSPECIFIED ATRIAL FIBRILLATION (8) CHF (congestive heart failure) Current Visit: No Status: Acute Qualifiers: Heart failure chronicity: chronic Code(s): I50.9 - HEART FAILURE, UNSPECIFIED (9) HTN (hypertension) Current Visit: No Status: Chronic Code(s): I10 - ESSENTIAL (PRIMARY) HYPERTENSION (10) DM II (diabetes mellitus, type II), controlled Current Visit: No Status: Acute Qualifiers: Diabetes mellitus residential insulin use: with residential use Diabetes mellitus complication status: with kidney complications Diabetes mellitus complication detail: with chronic kidney disease Assessment & Plan: 1) UTI (urinary tract infection) Current Visit: Yes Status: Acute Assessment & Plan: - Ceftriaxone started in ER- stopped as last visit UC shows she is resistant - will start Merrem pharmacy to dose for kidney function - gentle IV hydration-LR @ 50ml/hr - UC pending 02/16 - UC Gram negative- sensitivity pending 02/17 - UC ESBL + Klebsiella Pneumoniae- continue Merrem per sensitivity - Contact isolation Code(s): N39.0 - URINARY TRACT INFECTION, SITE NOT SPECIFIED (2) Hypoglycemia Current Visit: Yes Status: Acute Assessment & Plan: - 2:2 UTI - Glucose 41 in ER on arrival - Improved with IVF in ER - IV with dextrose- gentle hydration - accucheck Q1 hr until stable then Q2 hr. -consider Q4 if doing better 02/16 - resolved - accuchecks AC/HS Code(s): E16.2 - HYPOGLYCEMIA, UNSPECIFIED (3) Hypercalcemia Current Visit: Yes Status: Acute Assessment & Plan: - Ca+ 10.3- monitor 02/16 - Ca+ 8.8- resolved Code(s): E83.52 - HYPERCALCEMIA (4) Acute kidney injury superimposed on CKD Current Visit: Yes Status: Acute Assessment & Plan: - Creat 2.69 - Baseline 1.83 - gentle IVF - 2:2 UTI 02/16 - IVF with dextrose stopped in AM - Creat 2.54- improved- trend - Started LR @ 50ml/hr-IVF never started as unable to get IV per nurse 02/17 - Creat 2.67 - Gave lasix last night for flash pulm edema - Continue daily lasix as she gets fluid overload quickly- was on hold Code(s): N17.9 - ACUTE KIDNEY FAILURE, UNSPECIFIED; N18.9 - CHRONIC KIDNEY DISEASE, UNSPECIFIED (5) Hypokalemia Current Visit: Yes Status: Acute Assessment & Plan: - K+ 3.0- replaced per protol- trend - Tele 02/17 - resolved Code(s): E87.6 - HYPOKALEMIA (6) Confusion Current Visit: No Status: Acute Assessment & Plan: - 2:2 UTI and hypoglycemia - improving- monitor 02/16 - resolved Code(s): R41.0 - DISORIENTATION, UNSPECIFIED (7) Atrial fibrillation Current Visit: No Status: Chronic Assessment & Plan: - Chronic - Eliquis 02/17 - Stat EKG HR 122 @ 11:00- shows ST - Cardiology consulted Code(s): I48.91 - UNSPECIFIED ATRIAL FIBRILLATION (8) CHF (congestive heart failure) Current Visit: No Status: Acute Qualifiers: Heart failure chronicity: chronic Assessment & Plan: - Not in acute exacerbation - Tele - CXR: Impression: New borderline cardiomegaly. Negative acute pneumonic process or CHF. 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 VTE: Eliquis PPI: Pepcid Next of KIN: Letty Dumont [phone] D/c plan: 1-2 days Code status: Full Code(s): E11.9 - TYPE 2 DIABETES MELLITUS WITHOUT COMPLICATIONS (11) Sinus tachycardia Current Visit: Yes Status: Acute Assessment & Plan: - new onset today - Carilogy consult - EKG reviewed - BP stale - denies CP Code(s): R00.0 - TACHYCARDIA, UNSPECIFIED (12) Pulmonary edema Current Visit: Yes Status: Acute Assessment & Plan: - Pt became SOB last night Lasix 40 IV X1 gave- sxs improved - Chest XR last night 02/16 Portable chest again demonstrates cardiomegaly with cardiac valve replacement and tortuous descending aorta. New diffuse pulmonary edema without consolidation/large effusion concerning for mild/early CHF versus fluid overload. Superimposed pneumonia completely excluded - Chest XR this AM IMPRESSION: 1. Patchy opacifications are noted in both lungs could be secondary to pulmonary edema or infection 2. Cardiomegaly 3. Both verenice are prominent and have increased perihilar vascular marking suggesting pulmonary edema/vascular congestion 4. Findings are new since the last study. - Continue daily Lasix PO Code(s): J81.1 - CHRONIC PULMONARY EDEMA
[2024-02-18] MEDS: Lyrica 50MG PO SCH (12:59)
[2024-02-18] MEDS: Lasix 40 MG PO SCH (12:59)
--- NOTE | 2024-02-18 18:13 | PCM.CONS ---
History of Present Illness - Date of Consult Date of Encounter: 02/18/24 Consulting Yam Curer: SONIYA BROWNE MD Requesting Provider: Attending Provider: NAOMI MARISCAL MD Primary Care Provider: PCP: OJE GEORGE - Consult Narrative Reason for Consult: Flash pulmonary edema HPI: This is a 78 yo woman with a history of HTN, HLD, obesity, HfpEF and paroxysmal AF on dronedarone who presented to the hospital with somnolence and shortness of breath. She was started on treatment for pneumonia. Overnight a rapid response was called due to acute worsening in dyspnea and documented hypoxia. She was found to be tachycardic with some concerns for rapid atrial fibrillation as well. CXR shows pulmonary edema. She was started on PO lasix. Currently doing better from a breathing standpoint. Denies chest pain at the moment. ECGs revieiwed. She is in sinus rhythm, albeit tachycardic. Denies palpitations, dizziness, lightheadedness, near syncope or syncope. cc:: The requesting physician will be sent a copy of the consult. - Past Medical History Past Medical History: Yes Neurological History: TIA, Peripheral Neuropathy ENT History: Other Cardiac History: Arrhythmia, Congestive Heart Failure, High Cholesterol, Hypert ension, Myocardial Infarction (NE) Respiratory History: CHF, COPD Endocrine Medical History: Diabetes Type II, Hypothyroidism Musculoskelatal History: No Pertinent History GI Medical History: Other, GERD History: No Pertinent History Pyscho-Social History: Anxiety Reproductive Disorders: Breast Cancer Comment: right eye retinal scratch - Past Surgical History Past Surgical History: Yes Neuro Surgical History: No Pertinent History Cardiac History: Other Respiratory Surgery: No Pertinent History GI Surgical History: Hernia Repair Genitourinary Surgical Hx: No Pertinent History Musculskeletal Surgical Hx: No Pertinent History Female Surgical History: Mastectomy, Lumpectomy Other Surgical History: left mastectomy 1993, right lumpectomy, right thyroid r emoved, left thyroid removed with goiter, pubic mass, left knee scope, valve replacement Significant Family History: no pertinent family hx - Social History Smoking Status: Never smoker Exposure to second hand smoke: No Alcohol: None Drug Use: none - Social Determinants of Health Will the patient participate in the screening: Unable to obtain Do you worry about a steady place to live?: No Do you have any problems with any of the following?: No known problems In the past 12 months,have you had to go without utilities?: No Have you or anyone in your house had to go without enough: No Transportation Issues: No Has anyone in your support network made you feel unsafe?: No Does the patient want assistance with any of the above?: No 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 Medications & Allergies Home Medications: Home Medication List Pregabalin 50 mg [Lyrica 50MG] 50 mg PO DAILY 07/06/22 [History Confirmed 02/16/24] Apixaban [Eliquis 5 mg Tablet] 5 mg PO BID 07/16/22 [History Confirmed 02/16/24] Ferrous Sulfate 325 mg [Feosol 325 mg] 325 mg PO BID 08/31/22 [History Confirmed 02/16/24] Folic Acid 1 mg [Folate 1 mg] 1 mg PO DAILY 08/31/22 [History Confirmed 02/16/24] Insulin Lispro [Humalog] 14 unit SQ 1200,1700 09/28/23 [History Confirmed 02/17/24] Famotidine 20 mg [Pepcid 20 MG] 20 mg PO BID 10/27/23 [History Confirmed 02/16/24] Acetaminophen 325 mg [Tylenol 325 mg] 650 mg PO Q6H PRN PRN 11/15/23 [History Confirmed 02/16/24] Cetirizine HCl 10 mg PO DAILY 11/15/23 [History Confirmed 02/16/24] Cyanocobalamin 500 Mcg [Vitamin B-12 500 MCG] 1,000 mcg PO DAILY 11/15/23 [History Confirmed 02/16/24] Glucagon 1 mg [GlucaGen 1 MG] 1 mg IM UD 11/15/23 [History Confirmed 02/16/24] Insulin Glargine [Lantus Insulin] 38 unit SQ HS 11/15/23 [History Confirmed 02/16/24] Insulin Lispro [Humalog] 18 unit SQ BREAKFAST 11/15/23 [History Confirmed 02/16/24] L. Acidophilus/L.bulgaricus [Floranex Tablet] 1 each PO DAILY 11/15/23 [History Confirmed 02/16/24] Levothyroxine Sodium 100 Mcg [Synthroid 100 Mcg] 200 mcg PO DAILY 11/15/23 [History Confirmed 02/16/24] Montelukast Sodium 10 mg [Singulair 10 MG] 10 mg PO DAILY 11/15/23 [History Confirmed 02/16/24] Tamsulosin HCl 0.4 mg [Flomax 0.4 MG] 0.4 mg PO HS 11/15/23 [History Confirmed 02/16/24] Levothyroxine Sodium 25 mcg PO DAILY 11/28/23 [History Confirmed 02/16/24] Amlodipine Besylate 5 mg [Norvasc 5 mg] 5 mg PO HS 02/16/24 [History Confirmed 02/16/24] Buspirone HCl 10 mg PO BID 02/16/24 [History Confirmed 02/16/24] Carvedilol 12.5 mg [Coreg 12.5 mg] 1 tab PO BID 02/16/24 [History Confirmed 02/16/24] Fluticasone Propion/Salmeterol [Advair 100-50 Diskus] 1 puff IH BID 02/16/24 [History Confirmed 02/16/24] Furosemide 40 mg [Lasix 40 MG] 40 mg PO DAILY 02/16/24 [History Confirmed 02/16/24] Guaifenesin/Dextromethorphan [Diabetic Tussin Dm Liquid] 200 mg PO Q6H PRN PRN 02/16/24 [History Confirmed 02/16/24] Losartan Potassium 0.5 tab PO DAILY 02/16/24 [History Confirmed 02/16/24] Melatonin 3 mg PO HS 02/16/24 [History Confirmed 02/16/24] Allergies/Adverse Reactions: Allergies Allergy/AdvReac Type Severity Reaction Status Date / Time albuterol Allergy Intermediate Swelling Verified 02/16/24 10:15 of Tongue and Lips propranolol [From Inderal LA] Allergy Intermediate Verified 02/16/24 10:15 levofloxacin [From Levaquin] Allergy Unknown Verified 02/16/24 10:15 clonazepam [From Klonopin] Allergy Tightness Verified 02/16/24 10:15 of Throat dronedarone [From Multaq] Allergy Itching Verified 02/16/24 10:15 metoclopramide [From Reglan] Allergy Verified 02/16/24 10:15 propranolol HCl Allergy Swelling Verified 02/16/24 10:15 [From Inderal LA] of Tongue and Lips Sulfa (Sulfonamide Allergy Swelling Verified 02/16/24 10:15 Antibiotics) of Tongue and Lips terfenadine Allergy Verified 02/16/24 10:15 venom-honey bee Allergy Hives Verified 02/16/24 10:15 [bee venom (honey bee)] wheat Allergy Verified 02/16/24 10:15 zanamivir Allergy Swelling Verified 02/16/24 10:15 [From Relenza Diskhaler] of Tongue and Lips cilostazol [From Pletal] AdvReac Severe Swelling Verified 02/16/24 10:15 of Tongue and Lips ticagrelor [From Brilinta] AdvReac Severe Swelling Verified 02/16/24 10:15 of Tongue and Lips Exam - Vitals Vital Signs: Vital Signs - 24 hr Temp Pulse Resp BP Pulse Ox 02/18/24 16:00 98.9 F 122 H 25 H 133/63 94 L 02/18/24 11:42 98.4 F 121 H 23 133/64 95 02/18/24 08:17 100 H 22 97 02/18/24 07:19 99.1 F 95 H 22 165/75 95 02/18/24 04:00 97 H 29 H 138/81 97 02/17/24 23:42 113 H 142/89 02/17/24 19:49 99.2 F 90 19 115/66 93 L 02/17/24 19:12 90 16 93 L General:: alert and oriented x 4 HEENT: PERRLA, EOMI Cardiovascular Exam: regular rate/rhythm, tachycardia Respiratory Exam: crackles/rales, rhonchi SpO2: 94 Oxygen Delivery: Nasal Cannula Extremity Exam: warm, well perfused Results Vital Signs: Vital Signs - 24 hr Temp Pulse Resp BP Pulse Ox 02/18/24 16:00 98.9 F 122 H 25 H 133/63 94 L 02/18/24 11:42 98.4 F 121 H 23 133/64 95 02/18/24 08:17 100 H 22 97 02/18/24 07:19 99.1 F 95 H 22 165/75 95 02/18/24 04:00 97 H 29 H 138/81 97 02/17/24 23:42 113 H 142/89 02/17/24 19:49 99.2 F 90 19 115/66 93 L 02/17/24 19:12 90 16 93 L Pain Assessment - Last Documented Pain Intensity 0 Intake and Output: Intake & Output 02/16/24 02/17/24 02/18/24 02/19/24 11:59 11:59 11:59 11:59 Intake Total 750 1000 480 Output Total 700 400 800 Balance 50 600 -320 Weight 84.1 kg 82.7 kg LAB: I have reviewed the Labs in [employer]. Radiology Exams: Radiology Procedures Category Date Time Status CHEST 1 VIEW (PORTABLE) Stat Exams 02/17/24 20:32 Completed CHEST 1 VIEW (PORTABLE) Stat Exams 02/18/24 07:29 Completed - ECHO Echo: report reviewed by me Multi-Disciplinary Progress Notes: Multi-Disciplinary Progress Notes 02/17/24 22:53 Respiratory Note by Ana Bean [id number] At bedside with patient, removed Bipap due to vomiting, placed patient on 12LNC, SPO2 92%. RN and MD notified Initialized on 02/17/24 22:53 - END OF NOTE Assessment & Plan (1) Pulmonary edema Current Visit: Yes Status: Acute Assessment & Plan: Acute on chronic pulmonary edema - Continue PO Lasix BID - GOal negative 2 liters per day - Wean O2 as tolerated - Repeat echocardiogram to determine whether there is new valvular disease Code(s): J81.1 - CHRONIC PULMONARY EDEMA (2) Atrial fibrillation with RVR Current Visit: No Status: Acute Assessment & Plan: Resolved, currently in sinus rhythm. - Continue multaq, propranolol - Continue apixaban - Monitor on telemetry. Code(s): I48.91 - UNSPECIFIED ATRIAL FIBRILLATION - Encounter Critical Care Time: Critical 30-74 mins Encounter: "The entirety of this encounter was performed via Telemedicine using audio and visual "
[2024-02-18] MEDS: BUSPAR 5 MG PO SCH (21:55)
[2024-02-19 06:12] LABS: Hemoglobin 8.5 g/dL (11.2-15.7); Mean Cell Volume 91.9 fL (79.4-94.8); Mean Corpuscular Hgb Concent. 32.7 g/dL (32.2-35.5); Mean Platelet Volume 12.3 fL (9.4-12.3); Platelet Count 244 x10^3/uL (182-369); Red Blood Count 2.83 x10^6/uL (3.93-5.22); Red Cell Distribution Width 12.9 % (11.7-14.4); White Blood Count 9.8 x10^3/uL (3.98-10.04)
[2024-02-19 06:28] LABS: ALBUMIN 3.6 g/dL (3.5-5.0); ANION GAP 13.8 MEQ/L (5-15); BILIRUBIN,TOTAL 0.6 mg/dL (0.2-1.3); Calcium 8.2 mg/dL (8.4-10.2); Creatinine 1 2.5 mg/dL (0.52-1.04); EST GLOMERULAR FILTRATION RATE 19.2 ML/MIN; Potassium 3.7 mmol/L (3.5-5.1); Total Protein 6.9 g/dL (6.3-8.2)
[2024-02-19 07:22] VITALS: O2SAT 98
--- NOTE | 2024-02-19 11:34 | PCM.DS ---
Discharge Summary Date of Admission: 02/17/24 11:25 Date of Discharge: 02/19/24 Admitting Physician: NAOMI MARISCAL MD Consults: Consults on Case 02/16/24 14:13 Notify Physician ROUTINE 02/18/24 11:30 Consult Cardiology ROUTINE Primary Care Provider: KRISHAN GEORGEYESH Allergies Allergies albuterol Allergy (Intermediate, Verified 02/16/24 10:15) Swelling of Tongue and Lips propranolol [From Inderal LA] Allergy (Intermediate, Verified 02/16/24 10:15) red face and ears levofloxacin [From Levaquin] Allergy (Unknown, Verified 02/16/24 10:15) clonazepam [From Klonopin] Allergy (Verified 02/16/24 10:15) Tightness of Throat tongue swollen dronedarone [From Multaq] Allergy (Verified 02/16/24 10:15) Itching metoclopramide [From Reglan] Allergy (Verified 02/16/24 10:15) propranolol HCl [From Inderal LA] Allergy (Verified 02/16/24 10:15) Swelling of Tongue and Lips red face and ears Sulfa (Sulfonamide Antibiotics) Allergy (Verified 02/16/24 10:15) Swelling of Tongue and Lips throat swell,ears red terfenadine Allergy (Verified 02/16/24 10:15) venom-honey bee [bee venom (honey bee)] Allergy (Verified 02/16/24 10:15) Hives large hives wheat Allergy (Verified 02/16/24 10:15) zanamivir [From Relenza Diskhaler] Allergy (Verified 02/16/24 10:15) Swelling of Tongue and Lips throat tightness cilostazol [From Pletal] Adverse Reaction (Severe, Verified 02/16/24 10:15) Swelling of Tongue and Lips ticagrelor [From Brilinta] Adverse Reaction (Severe, Verified 02/16/24 10:15) Swelling of Tongue and Lips Hospital Summary - Hospital Course Hospital Course: 02/12/24 is a 78 year old female with pmhx of gastroesophageal reflux disease, insulin-dependent diabetes, atrial fibrillation on Eliquis, TIAs, peripheral neuropathy, CHF, COPD, CKD, hyperlipidemia, hypertension and hypothyroidism. Today she was evaluated in the ER after she was found unresponsive with a blood sugar in the 30s. Minimal improvement with 2 IM injection of glucagon prior to arrival. Patient was awake alert and oriented on presentation to ER, not in any distress and no focal neurosymptoms. IN ER patient was given D50 glucose as was only 40 on presentation, it improved and 160s. She is started on D10 and also given a fluid bolus as patient was a little hypotensive. EKG is atrial fibrillation rate controlled with no ST elevation and negative troponins. Workup showed normal white count, chemistries with acute on chronic kidney failure with a baseline creatinine around 2 and today is 2.69. Potassium of 3.0 and a magnesium of 2.0, started on potassium replacement. Has normal lactate, does have UTI and given a dose of Rocephin in ER. Chest x-ray negative for acute CHF/consolidative findings. Patient is afebrile. Pt's unresponsiveness is likelt secondary to hypoglycemia and UTI. No need for CT imaging of head or any other stroke workup at this time. Will continue IVF with dextrose, antibiotics, and trend K+, trops, and cultures. 02/13/24 Pt resting in bed. IV went bad this morning. IVf with dextrose stopped as glucose improved. Will restart home dosing of insulin. Will Continue IVF w/o dextrose for gentle hydration and to improve TIM. Creat 2.54 and improved. UC shows gram negative, sensitivity pending. Continue Merrem for UTI based on culture hx and allergies. She states she is feeling better. Will d/c when UC results are back, likely tomorrow. She denies CP, SOB, abd. pain, N/V/D. 02/18/24 Pt resting in the chair this morning after her bath. She states she feels better today. She refused her insulin last night and now her glucose is elevated this AM. Hypoglycemia resolved. She apparently has an episode of flash pulm edema last night and was given Lasix. Therefore creat and gap a bit elevated. UC ESBL + and Klebseilla Pneumoniae. Sensitivity shows merrem works well for pt. Pt developed temp 99 overnight. WBC up at 13.2. She denies CP, SOb, abd. pain, N/V/D. 02/19/24 Pt sitting up in chair. She is feeling better today. Labs overall have improved. Will d/c with PO antibiotics for UTI. Will add probiotics. HR better controlled. She denies any further concerns at this time. Will d/c to [facility] today. - Vitals & Intake/Output Vital Signs: Vital Signs Temperature 98.4 F 02/19/24 07:26 Pulse Rate 71 02/19/24 07:26 Respiratory Rate 18 02/19/24 07:26 Blood Pressure 137/64 02/19/24 07:26 O2 Sat by Pulse Oximetry 98 02/19/24 07:26 Intake & Output: Intake & Output 02/16/24 02/17/24 02/18/24 02/19/24 11:59 11:59 11:59 11:59 Intake Total 750 1000 1060 Output Total 291 624 0464 Balance 50 600 -240 Weight 84.1 kg 82.7 kg - Lab Result Diagrams: 02/19/24 06:06 02/19/24 06:06 Lab Results-Last 24 Hrs: Lab Results-Last 24 Hours 02/18/24 02/18/24 02/19/24 Range/Units 16:35 20:45 06:06 WBC 9.8 (3.98-10.04) x10^3/uL RBC 2.83 L (3.93-5.22) x10^6/uL Hgb 8.5 L (11.2-15.7) g/dL Hct 26.0 L (34.1-44.9) % MCV 91.9 (79.4-94.8) fL MCH 30.0 (25.6-32.2) pg MCHC 32.7 (32.2-35.5) g/dL RDW 12.9 (11.7-14.4) % Plt Count 244 (182-369) x10^3/uL MPV 12.3 (9.4-12.3) fL Sodium (135-145) mmol/L Potassium (3.5-5.1) mmol/L Chloride (98-107) mmol/L Carbon Dioxide (22-30) mmol/L Anion Gap (5-15) MEQ/L BUN (7-17) mg/dL Creatinine (0.52-1.04) mg/dL Estimated GFR ML/MIN Glucose (74-106) mg/dL POC Glucometer 254 H 161 H (74 to 106) mg/dL Calcium (8.4-10.2) mg/dL Total Bilirubin (0.2-1.3) mg/dL AST (14-36) U/L ALT (0-35) U/L Alkaline Phosphatase (38-126) U/L Serum Total Protein (6.3-8.2) g/dL Albumin (3.5-5.0) g/dL 02/19/24 02/19/24 02/19/24 Range/Units 06:06 07:09 11:14 WBC (3.98-10.04) x10^3/uL RBC (3.93-5.22) x10^6/uL Hgb (11.2-15.7) g/dL Hct (34.1-44.9) % MCV (79.4-94.8) fL MCH (25.6-32.2) pg MCHC (32.2-35.5) g/dL RDW (11.7-14.4) % Plt Count (182-369) x10^3/uL MPV (9.4-12.3) fL Sodium 134 L (135-145) mmol/L Potassium 3.7 (3.5-5.1) mmol/L Chloride 99 (98-107) mmol/L Carbon Dioxide 24 (22-30) mmol/L Anion Gap 13.8 (5-15) MEQ/L BUN 51 H (7-17) mg/dL Creatinine 2.50 H (0.52-1.04) mg/dL Estimated GFR 19.2 ML/MIN Glucose 308 H (74-106) mg/dL POC Glucometer 285 H 271 H (74 to 106) mg/dL Calcium 8.2 L (8.4-10.2) mg/dL Total Bilirubin 0.60 (0.2-1.3) mg/dL AST 20 (14-36) U/L ALT 23 (0-35) U/L Alkaline Phosphatase 62 (38-126) U/L Serum Total Protein 6.9 (6.3-8.2) g/dL Albumin 3.6 (3.5-5.0) g/dL Micro Results-Entire Visit: Microbiology 02/16/24 10:27 Urine Culture - Final Catherized Klebsiella Pneumoniae 02/16/24 10:43 Blood Culture - Preliminary Blood Accuchecks Date 02/19/24 Date 02/18/24 Date 02/18/24 Date 02/18/24 Time 07:25 Time 21:00 Time 16:56 Time 11:42 - Radiology Exams Ordered Rad Exams-Entire Visit: Radiology Procedures Category Date Time Status CHEST 1 VIEW (PORTABLE) Stat Exams 02/17/24 20:32 Completed CHEST 1 VIEW (PORTABLE) Stat Exams 02/18/24 07:29 Completed - Procedures and Test Procedures and Tests throughout Hospitalization: Therapy Orders & Screens 02/16/24 13:32 Oxygen Nasal Cannula 2 lpm Comment: Respiratory Therapy Consult ONCE Comment: Reason For Exam: 02/17/24 07:00 Respiratory Therapy Assessment DAILY Comment: Diagnosis: hypogylcemia, uti 02/17/24 20:52 BiPap/CPAP STAT Comment: Diagnosis: hypogylcemia, uti 02/18/24 11:16 EKG STAT Comment: Diagnosis: hypogylcemia, uti Discharge Exam General Appearance: no apparent distress, alert, obese Neurologic Exam: alert, oriented x 3, cooperative, normal mood/affect, nml cerebellar function, sensation nml, motor weakness, No motor deficits Eye Exam: PERRL, EOMI, eyes nml inspection Ears, Nose, Throat Exam: normal ENT inspection, pharynx normal, moist mucous membranes Neck Exam: normal inspection, non-tender, supple, full range of motion Respiratory Exam: normal breath sounds, lungs clear, No respiratory distress Cardiovascular Exam: regular rate/rhythm, normal heart sounds Gastrointestinal/Abdomen Exam: soft, No tenderness, No mass Pelvic Exam: deferred Rectal Exam: deferred Back Exam: normal inspection, normal range of motion, No CVA tenderness, No vertebral tenderness Extremity Exam: normal inspection, normal range of motion Skin Exam: normal color, warm, dry Final Diagnosis/Problem List - Final Discharge Diagnosis/Problem (1) UTI (urinary tract infection) Current Visit: Yes Status: Acute Code(s): N39.0 - URINARY TRACT INFECTION, SITE NOT SPECIFIED (2) Hypoglycemia Current Visit: Yes Status: Acute Code(s): E16.2 - HYPOGLYCEMIA, UNSPECIFIED (3) Hypercalcemia Current Visit: Yes Status: Acute Code(s): E83.52 - HYPERCALCEMIA (4) Acute kidney injury superimposed on CKD Current Visit: Yes Status: Acute Code(s): N17.9 - ACUTE KIDNEY FAILURE, UNSPECIFIED; N18.9 - CHRONIC KIDNEY DISEASE, UNSPECIFIED (5) Hypokalemia Current Visit: Yes Status: Acute Code(s): E87.6 - HYPOKALEMIA (6) Confusion Current Visit: No Status: Acute Code(s): R41.0 - DISORIENTATION, UNSPECIFIED (7) Atrial fibrillation Current Visit: No Status: Chronic Code(s): I48.91 - UNSPECIFIED ATRIAL F IBRILLATION (8) CHF (congestive heart failure) Current Visit: No Status: Acute Code(s): I50.9 - HEART FAILURE, UNSPECIFIED (9) HTN (hypertension) Current Visit: No Status: Chronic Code(s): I10 - ESSENTIAL (PRIMARY) HYPERTENSION (10) DM II (diabetes mellitus, type II), controlled Current Visit: No Status: Acute Code(s): E11.9 - TYPE 2 DIABETES MELLITUS WITHOUT COMPLICATIONS (11) Sinus tachycardia Current Visit: Yes Status: Acute Code(s): R00.0 - TACHYCARDIA, UNSPECIFIED (12) Pulmonary edema Current Visit: Yes Status: Acute Assessment & Plan: 1) UTI (urinary tract infection) Current Visit: Yes Status: Acute Assessment & Plan: - Ceftriaxone started in ER- stopped as last visit UC shows she is resistant - will start Merrem pharmacy to dose for kidney function - gentle IV hydration-LR @ 50ml/hr - UC pending 02/16 - UC Gram negative- sensitivity pending 02/17 - UC ESBL + Klebsiella Pneumoniae- continue Merrem per sensitivity - Contact isolation 02/18 - Will d/c with Augmentin and probiotics Code(s): N39.0 - URINARY TRACT INFECTION, SITE NOT SPECIFIED (2) Hypoglycemia Current Visit: Yes Status: Acute Assessment & Plan: - 2:2 UTI - Glucose 41 in ER on arrival - Improved with IVF in ER - IV with dextrose- gentle hydration - accucheck Q1 hr until stable then Q2 hr. -consider Q4 if doing better 02/16 - resolved - accuchecks AC/HS Code(s): E16.2 - HYPOGLYCEMIA, UNSPECIFIED (3) Hypercalcemia Current Visit: Yes Status: Acute Assessment & Plan: - Ca+ 10.3- monitor 02/16 - Ca+ 8.8- resolved Code(s): E83.52 - HYPERCALCEMIA (4) Acute kidney injury superimposed on CKD Current Visit: Yes Status: Acute Assessment & Plan: - Creat 2.69 - Baseline 1.83 - gentle IVF - 2:2 UTI 02/16 - IVF with dextrose stopped in AM - Creat 2.54- improved- trend - Started LR @ 50ml/hr-IVF never started as unable to get IV per nurse 02/17 - Creat 2.67 - Gave lasix last night for flash pulm edema - Continue daily lasix as she gets fluid overload quickly- was on hold 02/18 - Creat 2.50- improved. F/u with nephro OP Code(s): N17.9 - ACUTE KIDNEY FAILURE, UNSPECIFIED; N18.9 - CHRONIC KIDNEY DISEASE, UNSPECIFIED (5) Hypokalemia Current Visit: Yes Status: Acute Assessment & Plan: - K+ 3.0- replaced per protol- trend - Tele 02/17 - resolved Code(s): E87.6 - HYPOKALEMIA (6) Confusion Current Visit: No Status: Acute Assessment & Plan: - 2:2 UTI and hypoglycemia - improving- monitor 02/16 - resolved Code(s): R41.0 - DISORIENTATION, UNSPECIFIED (7) Atrial fibrillation Current Visit: No Status: Chronic Assessment & Plan: - Chronic - Eliquis 02/17 - Stat EKG HR 122 @ 11:00- shows ST - Cardiology consulted Code(s): I48.91 - UNSPECIFIED ATRIAL FIBRILLATION (8) CHF (congestive heart failure) Current Visit: No Status: Acute Qualifiers: Heart failure chronicity: chronic Assessment & Plan: - Not in acute exacerbation - Tele - CXR: Impression: New borderline cardiomegaly. Negative acute pneumonic process or CHF. 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 02/18 - again elevated this AM- continue Insulin as ordered - She is noncompliant with meds Code(s): E11.9 - TYPE 2 DIABETES MELLITUS WITHOUT COMPLICATIONS (11) Sinus tachycardia Current Visit: Yes Status: Acute Assessment & Plan: - new onset today - Carilogy consult - EKG reviewed - BP stale - denies CP 02/18 - resolved Code(s): R00.0 - TACHYCARDIA, UNSPECIFIED (12) Pulmonary edema Current Visit: Yes Status: Acute Assessment & Plan: - Pt became SOB last night Lasix 40 IV X1 gave- sxs improved - Chest XR last night 02/16 Portable chest again demonstrates cardiomegaly with cardiac valve replacement and tortuous descending aorta. New diffuse pulmonary edema without consolidation/large effusion concerning for mild/early CHF versus fluid overload. Superimposed pneumonia completely excluded - Chest XR this AM IMPRESSION: 1. Patchy opacifications are noted in both lungs could be secondary to pulmonary edema or infection 2. Cardiomegaly 3. Both verenice are prominent and have increased perihilar vascular marking suggesting pulmonary edema/vascular congestion 4. Findings are new since the last study. - Continue daily Lasix PO 02/18 - improved - no SOB, lungs clear - On baseline 2 [facility] Code(s): J81.1 - CHRONIC PULMONARY EDEMA - Discharge Discharge Date: 02/19/24 ([facility]) Disposition: XFER OTHER Condition: Stable Prescriptions: Continue Pregabalin 50 mg [Lyrica 50MG] 50 mg PO DAILY Apixaban [Eliquis 5 mg Tablet] 5 mg PO BID Folic Acid 1 mg [Folate 1 mg] 1 mg PO DAILY Ferrous Sulfate 325 mg [Feosol 325 mg] 325 mg PO BID Insulin Lispro [Humalog] 14 unit SQ 1200,1700 Famotidine 20 mg [Pepcid 20 MG] 20 mg PO BID Levothyroxine Sodium 100 Mcg [Synthroid 100 Mcg] 200 mcg PO 0600 Glucagon 1 mg [GlucaGen 1 MG] 1 mg IM UD Tamsulosin HCl 0.4 mg [Flomax 0.4 MG] 0.4 mg PO HS Cyanocobalamin 500 Mcg [Vitamin B-12 500 MCG] 1,000 mcg PO DAILY Montelukast Sodium 10 mg [Singulair 10 MG] 10 mg PO DAILY L. Acidophilus/L.bulgaricus [Floranex Tablet] 1 each PO DAILY Insulin Glargine [Lantus Insulin] 38 unit SQ HS Insulin Lispro [Humalog] 18 unit SQ BREAKFAST Cetirizine HCl 10 mg PO DAILY Acetaminophen 325 mg [Tylenol 325 mg] 650 mg PO Q6H PRN PRN PRN Reason: Pain Levothyroxine Sodium 25 mcg PO 0600 Fluticasone Propion/Salmeterol [Advair 100-50 Diskus] 1 puff IH BID Carvedilol 12.5 mg [Coreg 12.5 mg] 1 tab PO BID Buspirone HCl 10 mg PO BID Losartan Potassium 0.5 tab PO DAILY Furosemide 40 mg [Lasix 40 MG] 40 mg PO DAILY Guaifenesin/Dextromethorphan [Diabetic Tussin Dm Liquid] 200 mg PO Q6H PRN PRN PRN Reason: Cough Amlodipine Besylate 5 mg [Norvasc 5 mg] 5 mg PO HS Melatonin 3 mg PO HS Follow up with: JOE GEORGE MD [Primary Care Provider] -
[2024-02-19 11:40] VITALS: BP 130/60; PULSE 72; RESP 16; TEMP 97.8
== END 2024-02-19 12:45 | DRG 690 ==
LOC: ED 10:11 → MED SURG 13:24 → OBSVTOIN 02-17 11:25
PROVIDERS: ADMIT Internal Medicine; ATTEND Internal Medicine
DX: N39.0 Urinary tract infection, site not specified (principal); I13.0 Hypertensive heart and chronic kidney disease with heart failure and stage 1 through stage 4 chronic kidney disease, or unspecified chronic kidney disease; N17.9 Acute kidney failure, unspecified; J81.1 Chronic pulmonary edema; E11.649 Type 2 diabetes mellitus with hypoglycemia without coma; E83.52 Hypercalcemia; E11.22 Type 2 diabetes mellitus with diabetic chronic kidney disease; I50.9 Heart failure, unspecified; N18.9 Chronic kidney disease, unspecified; E87.6 Hypokalemia; R41.0 Disorientation, unspecified; I48.91 Unspecified atrial fibrillation; R00.0 Tachycardia, unspecified; B96.1 Klebsiella pneumoniae [K. pneumoniae] as the cause of diseases classified elsewhere; I25.2 Old myocardial infarction; E03.9 Hypothyroidism, unspecified; Z79.01 Long term (current) use of anticoagulants; Z79.899 Other long term (current) drug therapy; Z85.3 Personal history of malignant neoplasm of breast
CPT/HCPCS: 36000; 36410; 36415; 71045; 80053; 81001; 82947; 83036; 83605; 83690; 83735; 84132; 84484; 85025; 85027; 87040; 87077; 87086; 87186; 87493; 93005; 94002; 94003; 94640; 94762; 96365; 96374; 99285; 99291; Q3014; 93268; J0696; J1817; J1940; J3480; A9270-GY; G0378

== ENCOUNTER 2024-07-17 02:50 | Observation (INO) | payer MEDICARE, OTHER ==
--- NOTE | 2024-07-17 03:02 | ERPHSYRPT ---
- History of Present Illness Source: patient, EMS, old records Exam Limitations: no limitations Timing/Duration: yesterday Activities at Onset: none Severity of Dyspnea-Max: mild Severity of Dyspnea-Current: mild Possible Cause: occasional episodes Modifying Factors: Improves With: nothing Associated Symptoms: ankle swelling, No chest pain/discomfort Hx Tetanus, Diphtheria Vaccination/Date Given: Yes Hx Influenza Vaccination/Date Given: Yes Hx Pneumococcal Vaccination/Date Given: Yes <FREYA JORDAN - Last Filed: 07/17/24 06:48> <SHIELA ZIMMER - Last Filed: 07/17/24 09:30> - History of Present Illness Time Seen by Provider: 07/17/24 03:01 Physician History: This is an obese 79-year-old white female patient of Dr. George and is a resident of [facility] and brought to the emergency department by the front end java developer service secondary to shortness of breath. Patient states that she began not feeling well during dinner on 07/16/2024. Upon arrival to the emergen cy department her room air oxygenation saturation level is 95% and her respiratory rate is 20. She does not appear to be in any distress. She denies chest pain. Patient has multiple medical issues including hypothyroidism, hypertension, hyperlipidemia, diabetes, atrial fibrillation on Eliquis, TIAs, peripheral neuropathy, chronic anemia, CHF, COPD, coronary disease, gastroesophageal reflux disease and anxiety. (FREYA JORDAN) Allergies/Adverse Reactions: albuterol Allergy (Intermediate, Verified 07/17/24 03:10) Swelling of Tongue and Lips propranolol [From Inderal LA] Allergy (Intermediate, Verified 07/17/24 03:10) red face and ears levofloxacin [From Levaquin] Allergy (Unknown, Verified 07/17/24 03:10) clonazepam [From Klonopin] Allergy (Verified 07/17/24 03:10) Tightness of Throat tongue swollen dronedarone [From Multaq] Allergy (Verified 07/17/24 03:10) Itching metoclopramide [From Reglan] Allergy (Verified 07/17/24 03:10) propranolol HCl [From Inderal LA] Allergy (Verified 07/17/24 03:10) Swelling of Tongue and Lips red face and ears Alnicsf-WLF-NiN Reductase Inhibitor Allergy (Verified 07/17/24 03:10) Wheezing Sulfa (Sulfonamide Antibiotics) Allergy (Verified 07/17/24 03:10) Swelling of Tongue and Lips throat swell,ears red terfenadine Allergy (Verified 07/17/24 03:10) venom-honey bee [bee venom (honey bee)] Allergy (Verified 07/17/24 03:10) Hives large hives wheat Allergy (Verified 07/17/24 03:10) zanamivir [From Relenza Diskhaler] Allergy (Verified 07/17/24 03:10) Swelling of Tongue and Lips throat tightness cilostazol [From Pletal] Adverse Reaction (Severe, Verified 07/17/24 03:10) Swelling of Tongue and Lips ticagrelor [From Brilinta] Adverse Reaction (Severe, Verified 07/17/24 03:10) Swelling of Tongue and Lips Home Medications: Apixaban [Eliquis 5 mg Tablet] 5 mg PO BID 07/16/22 [History] Ferrous Sulfate 325 mg [Feosol 325 mg] 325 mg PO BID 08/31/22 [History] Folic Acid 1 mg [Folate 1 mg] 1 mg PO DAILY 08/31/22 [History] Insulin Lispro [Humalog] 12 unit SQ LUNCH 09/28/23 [History] Famotidine 20 mg [Pepcid 20 MG] 20 mg PO BID 10/27/23 [History] Cetirizine HCl 10 mg PO DAILY 11/15/23 [History] Cyanocobalamin 500 Mcg [Vitamin B-12 500 MCG] 1,000 mcg PO DAILY 11/15/23 [History] Glucagon 1 mg [GlucaGen 1 MG] 1 mg IM UD PRN 11/15/23 [History] Insulin Glargine [Lantus Insulin] 30 unit SQ HS 11/15/23 [History] Insulin Lispro [Humalog] 16 unit SQ BREAKFAST 11/15/23 [History] Levothyroxine Sodium 100 Mcg [Synthroid 100 Mcg] 200 mcg PO BREAKFAST 11/15/23 [History] Montelukast Sodium 10 mg [Singulair 10 MG] 10 mg PO DAILY 11/15/23 [History] Levothyroxine Sodium 25 mcg PO HS 11/28/23 [History] Amlodipine Besylate 5 mg [Norvasc 5 mg] 5 mg PO HS 02/16/24 [History] Buspirone HCl 10 mg PO BID 02/16/24 [History] Carvedilol 12.5 mg [Coreg 12.5 mg] 1 tab PO BID 02/16/24 [History] Fluticasone Propion/Salmeterol [Advair 100-50 Diskus] 1 puff IH BID 02/16/24 [History] Furosemide 40 mg [Lasix 40 MG] 40 mg PO DAILY 02/16/24 [History] Losartan Potassium 0.5 tab PO DAILY 02/16/24 [History] Melatonin 3 mg PO HS 02/16/24 [History] Blood-Glucose Sensor [Dexcom G6 Sensor] 1 ea TRANSTRAC Q12H PRN PRN 07/17/24 [History] Calcium Carbonate [Calcium] 750 mg PO DAILY 07/17/24 [History] Cranberry Fruit Extract [Cranberry] 300 mg PO BID 07/17/24 [History] Insulin Lispro [Humalog] 14 unit SQ DINNER 07/17/24 [History] L. Acidophilus/L.bulgaricus [Lactobacillus Tablet] 1 tab PO DAILY 07/17/24 [History] Loperamide HCl 2 mg [Imodium 2 mg] 1 cap PO QIDPRN PRN 07/17/24 [History] Menthol [Biofreeze] 1 dose TOP QIDPRN PRN 07/17/24 [History] calcitrioL [Calcitriol] 0.5 cap PO DAILY 07/17/24 [History] Travel Risk - Emerging Infectious Disease Are you exhibiting symptoms associated with any current EIDs: No Symptoms: Shortness of Breath <FREYA JORDAN - Last Filed: 07/17/24 06:48> - Review of Systems Constitutional: No Symptoms Eyes: No Symptoms Ears, Nose, & Throat: No Symptoms Respiratory: Dyspnea Cardiac: No Symptoms Abdominal/Gastrointestinal: No Symptoms Genitourinary Symptoms: No Symptoms Musculoskeletal: No Symptoms Skin: No Symptoms Neurological: No Symptoms Psychological: No Symptoms Endocrine: No Symptoms Hematologic/Lymphatic: No Symptoms Immunological/Allergic: No Symptoms All Other Systems: Reviewed and Negative <FREYA JORDAN - Last Filed: 07/17/24 06:48> - Past Medical History Pertinent Past Medical History: Yes Neurological History: TIA, Peripheral Neuropathy ENT History: Other Cardiac History: Arrhythmia, Congestive Heart Failure, High Cholesterol, Hypertension, Myocardial Infarction ([place]) Respiratory History: CHF, COPD Endocrine Medical History: Diabetes Type II, Hypothyroidism Musculoskeletal History: No Pertinent History GI Medical History: Other, GERD History: No Pertinent History Psycho-Social History: Anxiety Female Reproductive Disorders: Breast Cancer Other Medical History: right eye retinal scratch - Past Surgical History Past Surgical History: Yes Neuro Surgical History: No Pertinent History Cardiac: Other Respiratory: No Pertinent History Gastrointestinal: Hernia Repair Genitourinary: No Pertinent History Musculoskeletal: No Pertinent History Female Surgical History: Mastectomy, Lumpectomy Other Surgical History: left mastectomy 1993, right lumpectomy, right thyroid removed, left thyroid removed with goiter, pubic mass, left knee scope, valve replacement Significant Family History: no pertinent family hx - Social History Smoking Status: Never smoker Exposure to second hand smoke: No Drug Use: none Patient Lives Alone: Yes - Social Determinants of Health Will the patient participate in the screening: Unable to obtain Do you worry about a steady place to live?: No In the past 12 months,have you had to go without utilities?: No Transportation Issues: No Has anyone in your support network made you feel unsafe?: No Have you or anyone in your house had to go without enough: No 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 <FREYA JORDAN - Last Filed: 07/17/24 06:48> - Physical Exam General Appearance: no apparent distress, alert, anxiety, obese Eye Exam: PERRL/EOMI, eyes nml inspection Ears, Nose, Throat Exam: hearing grossly normal, normal ENT inspection, normal pharynx Neck Exam: normal inspection, non-tender, supple, full range of motion Respiratory Exam: airway intact, crackles/rales (At bilateral bases), No chest tenderness, No respiratory distress Cardiovascular/Chest Exam: normal heart sounds, regular rate/rhythm Abdominal/Gastrointestinal Exam: soft, normal bowel sounds, No tenderness Rectal Exam: not done Extremity Exam: non-tender, normal range of motion, pedal edema (Bilateral feet and ankles) Neurologic Exam: alert, oriented x 3, cooperative, credit analyst II-XII nml as tested, sensation nml Skin Exam: normal color, warm, dry Lymphatic Exam: No adenopathy SpO2 Interpretation: normal O2 Delivery: Room Air <FREYA JORDAN - Last Filed: 07/17/24 06:48> - Nursing Vital Signs Nursing Vital Signs: Initial Vital Signs Temperature 97.7 F 07/17/24 02:53 Pulse Rate 64 07/17/24 02:53 Respiratory Rate 20 07/17/24 02:53 Blood Pressure 115/60 07/17/24 02:53 O2 Sat by Pulse Oximetry 95 07/17/24 02:53 Pain Scale Pain Intensity 0 - Course Nursing assessment & vital signs reviewed: Yes EKG Interpreted by Me: RATE, Sinus Rhythm, NORMAL AXIS, prolonged QT interval, NORMAL QRS, Other (Shortened OK interval. No acute ischemic changes on today's twelve-lead EKG. QTc is 510) <FREYA JORDAN - Last Filed: 07/17/24 06:48> - Radiology Exams Chest X-ray Interpretation: Teleradiologist Report (Chronic findings. No acute processes observed) <SHIELA ZIMMER - Last Filed: 07/17/24 09:30> Ordered Tests: Active Orders 24 hr Category Date Time Status Loan Specialist STAT Care 07/17/24 03:04 Active EKG-ER Only STAT Care 07/17/24 03:02 Active IV Insertion STAT Care 07/17/24 03:02 Active Pulse Oximetry (ED) STAT Care 07/17/24 03:02 Active CHEST 1 VIEW (PORTABLE) Stat Exams 07/17/24 03:02 Completed BLOOD CULTURE Stat Lab 07/17/24 06:30 Results CBC W DIFF Stat Lab 07/17/24 06:30 Completed CMP Stat Lab 07/17/24 06:30 Completed Lactic Acid Stat Lab 07/17/24 06:58 Completed MAGNESIUM Stat Lab 07/17/24 06:30 Completed MONO SCREEN Stat Lab 07/17/24 06:30 Completed NT PRO BNPII Stat Lab 07/17/24 06:30 Completed TROPONIN Q4H Lab 07/17/24 06:30 Completed TROPONIN Q4H Lab 07/17/24 07:15 Ordered TROPONIN Q4H Lab 07/17/24 11:15 Ordered Transfer Order Routine Transfer 07/17/24 Ordered Medication Summary Discontinued Medications Generic Name Dose Route Start Last Admin Trade Name Pavel PRN Reason Stop Dose Admin Pantoprazole Sodium 40 mg 07/17/24 09:11 Pantoprazole 40 Mg Vial IV 07/17/24 09:12 STAT ONE Lab/Rad Data: Laboratory Result Diagrams 07/17/24 06:30 07/17/24 06:30 Laboratory Results 07/17/24 07/17/24 07/17/24 Range/Units 06:58 06:30 06:30 WBC (3.98-10.04) x10^3/uL RBC (3.93-5.22) x10^6/uL Hgb (11.2-15.7) g/dL Hct (34.1-44.9) % MCV (79.4-94.8) fL MCH (25.6-32.2) pg MCHC (32.2-35.5) g/dL RDW (11.7-14.4) % Plt Count (182-369) x10^3/uL MPV (9.4-12.3) fL Gran % (34.0-71.1) % Immature Gran % (Auto) (0.001-0.429) % Nucleat RBC Rel Count (0.00-0.2) % Eos # (Auto) (0.04-0.36) x10^3/uL Immature Gran # (Auto) (0.001-0.031) x10^3u/L Absolute Lymphs (auto) (1.18-3.74) x10^3/uL Absolute Monos (auto) (0.24-0.86) x10^3/uL Absolute Nucleated RBC (0.00-0.012) x10^3u/L Lymphocytes % (19.3-51.7) % Monocytes % (4.7-12.5) % Eosinophils % (0.7-5.8) % Basophils % (0.1-1.2) % Absolute Granulocytes (1.56-6.13) x10^3/uL Basophils # (0.01-0.08) x10^3/uL Sodium (135-145) mmol/L Potassium (3.5-5.1) mmol/L Chloride (98-107) mmol/L Carbon Dioxide (22-30) mmol/L Anion Gap (5-15) MEQ/L BUN (7-17) mg/dL Creatinine (0.52-1.04) mg/dL Estimated GFR ML/MIN Glucose (74-106) mg/dL Lactic Acid 1.5 (0.4-2.0) Calcium (8.4-10.2) mg/dL Magnesium (1.6-2.3) mg/dL Total Bilirubin (0.2-1.3) mg/dL AST (14-36) U/L ALT (0-35) U/L Alkaline Phosphatase (38-126) U/L Troponin I < 0.012 (0.000-0.033) ng/mL NT-Pro-B Natriuret Pep (<300) pg/mL Serum Total Protein (6.3-8.2) g/dL Albumin (3.5-5.0) g/dL Monoscreen NEGATIVE (NEGATIVE) Influenza Type A Ag (NEGATIVE) Influenza Type B Ag (NEGATIVE) RSV (PCR) (NEGATIVE) SARS-CoV-2 (PCR) (NEGATIVE) 07/17/24 07/17/24 07/17/24 Range/Units 06:30 06:30 03:30 WBC 7.1 (3.98-10.04) x10^3/uL RBC 2.77 L (3.93-5.22) x10^6/uL Hgb 8.4 L (11.2-15.7) g/dL Hct 25.1 L (34.1-44.9) % MCV 90.6 (79.4-94.8) fL MCH 30.3 (25.6-32.2) pg MCHC 33.5 (32.2-35.5) g/dL RDW 13.5 (11.7-14.4) % Plt Count 258 (182-369) x10^3/uL MPV 10.9 (9.4-12.3) fL Gran % 70.3 (34.0-71.1) % Immature Gran % (Auto) 0.6 H (0.001-0.429) % Nucleat RBC Rel Count 0.0 (0.00-0.2) % Eos # (Auto) 0.36 (0.04-0.36) x10^3/uL Immature Gran # (Auto) 0.04 H (0.001-0.031) x10^3u/L Absolute Lymphs (auto) 0.98 L (1.18-3.74) x10^3/uL Absolute Monos (auto) 0.70 (0.24-0.86) x10^3/uL Absolute Nucleated RBC 0.00 (0.00-0.012) x10^3u/L Lymphocytes % 13.8 L (19.3-51.7) % Monocytes % 9.8 (4.7-12.5) % Eosinophils % 5.1 (0.7-5.8) % Basophils % 0.4 (0.1-1.2) % Absolute Granulocytes 5.01 (1.56-6.13) x10^3/uL Basophils # 0.03 (0.01-0.08) x10^3/uL Sodium 137 (135-145) mmol/L Potassium 3.9 (3.5-5.1) mmol/L Chloride 106 (98-107) mmol/L Carbon Dioxide 18 L (22-30) mmol/L Anion Gap 17.9 H (5-15) MEQ/L BUN 75 H (7-17) mg/dL Creatinine 2.94 H (0.52-1.04) mg/dL Estimated GFR 15.7 ML/MIN Glucose 64 L (74-106) mg/dL Lactic Acid (0.4-2.0) Calcium 6.0 L (8.4-10.2) mg/dL Magnesium 1.8 (1.6-2.3) mg/dL Total Bilirubin 0.30 (0.2-1.3) mg/dL AST 78 H (14-36) U/L ALT 60 H (0-35) U/L Alkaline Phosphatase 91 (38-126) U/L Troponin I (0.000-0.033) ng/mL NT-Pro-B Natriuret Pep 3190 (<300) pg/mL Serum Total Protein 6.2 L (6.3-8.2) g/dL Albumin 3.5 (3.5-5.0) g/dL Monoscreen (NEGATIVE) Influenza Type A Ag NEGATIVE (NEGATIVE) Influenza Type B Ag NEGATIVE (NEGATIVE) RSV (PCR) NEGATIVE (NEGATIVE) SARS-CoV-2 (PCR) NEGATIVE (NEGATIVE) - Progress Progress: improved, re-examined Air Movement: fair Blood Culture(s) Obtained: Yes Counseled pt/family regarding: lab results, diagnosis, rad results <FREYA JORDAN YennyBrigido - Last Filed: 07/17/24 06:48> <SHIELA ZIMMER - Last Filed: 07/17/24 09:30> - Progress Progress Note: 07/17/24 03:47 Not medical decision making and the assignment of moderate complexity to this patient's medical issue today is based on review of the patient's past medical history, review of the patient's medication list, review the patient drug allergy list, history present illness and physical findings on examination. The workup in this patient includes RT evaluation, CBC, CMP, troponin level, magnesium level, twelve-lead EKG, chest x-ray, viral swabs, monotest. Differential diagnosis includes but is not limited to pneumonia, CHF exacerbation, COPD exacerbation, myocardial infarction, electrolyte abnormalities, urinary tract infection, arrhythmias, viral illness 07/17/24 05:30 The patient has been hemodynamically stable throughout her stay thus far in the emergency department. Her respiratory rate, most recently on the monitor shows 18 breaths/min, heart rate in the 60s, she is resting comfortably. Her room air oxygen saturation levels are 96%. I did interpret the preliminary chest x-ray report. I do not see a definite infiltrate present. There are no pleural effusions. Patient's chest x-ray today shows significant improvement over comparable study dated 02/18/2024. Patient has allowed a total of 5 attempts from 5 different nurses and lab technicians. I did discuss with her the possibility of me drawing blood specimens from her femoral vein. She states that she would allow me to try it once only. On my examination of her inguinal regions bilaterally, I am not locating a femoral pulse. Obviously she has a pulse but I do not want to blindly attempt to find the femoral vein. She has been stable. We will wait for the nurse patient service technician pst to arrive. The patient is agreeable to waiting. She is in no distress 07/17/24 05:34 I have interpreted the viral swabs results which are all negative. 07/17/24 05:34 07/17/24 06:48 I am transferring care of this patient to Dr. Shiela Zimmer at shift change. He will follow-up on pending studies and make final disposition. (FREYA JORDAN) 79-year-old female endorsed to Dr. Zimmer at approximately [address] Zimmer advised to follow-up on pending studies and make final disposition. Laboratory workup reveals a significant anemia of 8.4. Previous hemoglobin 2 months ago was 11. Patient on Eliquis for A-fib. At this point we are suspecting GI blood loss however patient denies dark tarry stools. Patient has no pain at this time. Lab review reveals chronic renal sufficiency. Patient's creatinine has gotten somewhat worse at 2.94. Type and screen ordered. Patient does not recall her last colonoscopy date. Protonix ordered and administered. Patient will require hospitalization for further evaluation and treatment. Plan of care discussed with patient. She agrees to admission [facility] for further evaluation and treatment. Chest x-ray reveals nonacute chest with chronic features. Influenza RSV COVID- negative. She voices no other complaints or concerns at this time. Portions of this note were created with voice recognition technology. There may be grammatical, spelling, punctuation or sound alike errors 07/17/24 09:12 Case discussed with hospitalist Dr. Lopes who accepts admission at 9:20 AM. 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
[2024-07-17 04:21] LABS: INFLUENZA A NEGATIVE (NEGATIVE); INFLUENZA B NEGATIVE (NEGATIVE); RESPIRATORY SYNCTIAL VIRUS NEGATIVE (NEGATIVE); SARS-CoV-2 Xpert Express NEGATIVE (NEGATIVE)
[2024-07-17 06:38] LABS: Red Blood Count 2.77 x10^6/uL (3.93-5.22); White Blood Count 7.1 x10^3/uL (3.98-10.04)
[2024-07-17 06:39] LABS: Absolute Neutrophil Ct (ANC) 5.01 x10^3/uL (1.56-6.13); BASOPHIL % 0.4 % (0.1-1.2); Basophil (Absolute #) 0.03 x10^3/uL (0.01-0.08); Eosinophil % 5.1 % (0.7-5.8); Eosinophil (Absolute #) 0.36 x10^3/uL (0.04-0.36); Hematocrit 25.1 % (34.1-44.9); Hemoglobin 8.4 g/dL (11.2-15.7); IMMATURE GRAN # 0.04 x10^3u/L (0.001-0.031); IMMATURE GRAN % 0.6 % (0.001-0.429); Lymphocyte (Absolute #) 0.98 x10^3/uL (1.18-3.74); Lymphocytes % 13.8 % (19.3-51.7); Mean Cell Volume 90.6 fL (79.4-94.8); Mean Corpuscular Hemoglobin 30.3 pg (25.6-32.2); Mean Corpuscular Hgb Concent. 33.5 g/dL (32.2-35.5); Mean Platelet Volume 10.9 fL (9.4-12.3); Monocytes % 9.8 % (4.7-12.5); Neutrophil % 70.3 % (34.0-71.1); Platelet Count 258 x10^3/uL (182-369); Red Cell Distribution Width 13.5 % (11.7-14.4)
[2024-07-17 07:07] LABS: ALBUMIN 3.5 g/dL (3.5-5.0); ANION GAP 17.9 MEQ/L (5-15); BILIRUBIN,TOTAL 0.3 mg/dL (0.2-1.3); Creatinine 1 2.94 mg/dL (0.52-1.04); EST GLOMERULAR FILTRATION RATE 15.7 ML/MIN; MAGNESIUM 1.8 mg/dL (1.6-2.3); Potassium 3.9 mmol/L (3.5-5.1); Total Protein 6.2 g/dL (6.3-8.2)
--- NOTE | 2024-07-17 08:46 | XRAY ---
Indication: Short of breath. Comparison: February 18, 2024 Portable apical lordotic chest demonstrates new left mid lung subcentimeter atelectasis/scarring. Remaining lungs now clear. Heart borderline enlarged again with cardiac valve replacement surgery. Bony thorax intact again with osteopenia and mild degenerative changes. Impression: Nonacute chest with chronic features.
[2024-07-17] MEDS ORDERED: Sodium Chloride 0.9% 1000 ML 1,000 ML ONE (09:38)
[2024-07-17] MEDS ORDERED: PROTONIX 40 MG IV IV ONE (10:41)
[2024-07-17] MEDS: PROTONIX 40 MG IV IV ONE (10:42)
[2024-07-17 12:01] LABS: ABO TYPING O; Antibody Screen NEGATIVE (NEGATIVE); RH TYPING POSITIVE
[2024-07-17] MEDS ORDERED: IMODIUM 2 MG PO PRN (14:12)
[2024-07-17] MEDS ORDERED: VITAMIN D PO SCH (14:15)
--- NOTE | 2024-07-17 14:17 | PCM.HP ---
History of Present Illness - Chief Complaint Chief Complaint: shortness of breath, symptomatic anema, weakness, TIM Date: 07/17/24 History of Present Illness: is a 79 year old female with PMHX of hypothyroidism, hypertension, hyperlipidemia, diabetes, atrial fibrillation on Eliquis, TIAs, peripheral neuropathy, chronic anemia, CHF, COPD, coronary disease, gastroesophageal reflux disease and anxiety. She is a resident of [facility] and brought to the emergency department by the surgery attendant service secondary to shortness of breath. Patient states that she began not feeling well during dinner on 07/16/2024. Upon arrival to the emergency department her room air oxygenation saturation level is 95% and her respiratory rate is 20. She does not appear to be in any distress. Labs show chronic anemia, dehydration, TIM, and chronic hypocalcemia. Midline placed in ER. IVF started. She is currently RA 96% and denies SOB. She has chronic weakness and will have PT eval. UA pending. CXR negative for acute concern. She denies any further concerns at this time. - Review of Systems Constitutional: Fatigue, Weakness, No Fever, No Chills Eyes: No Symptoms Ears, Nose, & Throat: No Symptoms Respiratory: No Cough, No Short Of Breath Cardiac: No Chest Pain, No Edema, No Syncope Abdominal/Gastrointestinal: No Abdominal Pain, No Nausea, No Vomiting, No Diarrhea Genitourinary Symptoms: No Dysuria Musculoskeletal: No Back Pain, No Neck Pain Skin: No Rash Neurological: No Dizziness, No Focal Weakness, No Sensory Changes Psychological: No Symptoms Endocrine: No Symptoms Hematologic/Lymphatic: No Symptoms Immunological/Allergic: No Symptoms Medications & Allergies Home Medications: Home Medication List Apixaban [Eliquis 5 mg Tablet] 5 mg PO BID 07/16/22 [History Confirmed 07/17/24] Ferrous Sulfate 325 mg [Feosol 325 mg] 325 mg PO BID 08/31/22 [History Confirmed 07/17/24] Folic Acid 1 mg [Folate 1 mg] 1 mg PO DAILY 08/31/22 [History Confirmed 07/17/24] Insulin Lispro [Humalog] 12 unit SQ LUNCH 09/28/23 [History Confirmed 07/17/24] Famotidine 20 mg [Pepcid 20 MG] 20 mg PO BID 10/27/23 [History Confirmed 07/17/24] Cetirizine HCl 10 mg PO DAILY 11/15/23 [History Confirmed 07/17/24] Cyanocobalamin 500 Mcg [Vitamin B-12 500 MCG] 1,000 mcg PO DAILY 11/15/23 [History Confirmed 07/17/24] Glucagon 1 mg [GlucaGen 1 MG] 1 mg IM UD PRN 11/15/23 [History Confirmed 07/17/24] Insulin Glargine [Lantus Insulin] 30 unit SQ HS 11/15/23 [History Confirmed 07/17/24] Insulin Lispro [Humalog] 16 unit SQ BREAKFAST 11/15/23 [History Confirmed 07/17/24] Levothyroxine Sodium 100 Mcg [Synthroid 100 Mcg] 200 mcg PO BREAKFAST 11/15/23 [History Confirmed 07/17/24] Montelukast Sodium 10 mg [Singulair 10 MG] 10 mg PO DAILY 11/15/23 [History Confirmed 07/17/24] Levothyroxine Sodium 25 mcg PO HS 11/28/23 [History Confirmed 07/17/24] Amlodipine Besylate 5 mg [Norvasc 5 mg] 2.5 mg PO DAILY 02/16/24 [History Confirmed 07/17/24] Buspirone HCl 10 mg PO BID 02/16/24 [History Confirmed 07/17/24] Carvedilol 12.5 mg [Coreg 12.5 mg] 12.5 mg PO BID 02/16/24 [History Confirmed 07/17/24] Fluticasone Propion/Salmeterol [Advair 100-50 Diskus] 1 puff IH BID 02/16/24 [History Confirmed 07/17/24] Furosemide 40 mg [Lasix 40 MG] 40 mg PO DAILY 02/16/24 [History Confirmed 07/17/24] Losartan Potassium 12.5 mg PO DAILY 02/16/24 [History Confirmed 07/17/24] Melatonin 3 mg PO HS 02/16/24 [History Confirmed 07/17/24] Blood-Glucose Sensor [Dexcom G6 Sensor] 1 ea TRANSTRAC Q12H PRN PRN 07/17/24 [History Confirmed 07/17/24] Calcium Carbonate 750 mg [Tums EX 750 MG] 750 mg PO Q8HPRN PRN 07/17/24 [History Confirmed 07/17/24] Calcium Carbonate [Calcium] 750 mg PO DAILY 07/17/24 [History Confirmed 07/17/24] Cholecalciferol (Vitamin D3) [Vitamin D] 50,000 units PO UD 07/17/24 [History Confirmed 07/17/24] Cranberry Fruit Extract [Cranberry] 300 mg PO BID 07/17/24 [History Confirmed 07/17/24] Dronedarone Hydrochloride 400* [Multaq 400 MG] 400 mg PO BID 07/17/24 [History Confirmed 07/17/24] Insulin Lispro [Humalog] 14 unit SQ DINNER 07/17/24 [History Confirmed 07/17/24] L. Acidophilus/L.bulgaricus [Lactobacillus Tablet] 1 tab PO DAILY 07/17/24 [History Confirmed 07/17/24] Loperamide HCl 2 mg [Imodium 2 mg] 1 cap PO UD PRN 07/17/24 [History Confirmed 07/17/24] Menthol [Biofreeze] 1 dose TOP BID 07/17/24 [History Confirmed 07/17/24] Pregabalin 50 mg [Lyrica 50MG] 50 mg PO DAILY 07/17/24 [History Confirmed 07/17/24] Tamsulosin HCl 0.4 mg [Flomax 0.4 MG] 0.4 mg PO QHS 07/17/24 [History Confirmed 07/17/24] calcitrioL [Calcitriol] 0.5 mcg PO DAILY 07/17/24 [History Confirmed 07/17/24] Allergies/Adverse Reactions: Allergies Allergy/AdvReac Type Severity Reaction Status Date / Time albuterol Allergy Intermediate Swelling Verified 07/17/24 03:10 of Tongue and Lips propranolol [From Inderal LA] Allergy Intermediate Verified 07/17/24 03:10 levofloxacin [From Levaquin] Allergy Unknown Verified 07/17/24 03:10 clonazepam [From Klonopin] Allergy Tightness Verified 07/17/24 03:10 of Throat dronedarone [From Multaq] Allergy Itching Verified 07/17/24 03:10 metoclopramide [From Reglan] Allergy Verified 07/17/24 03:10 propranolol HCl Allergy Swelling Verified 07/17/24 03:10 [From Inderal LA] of Tongue and Lips Ttzziqc-WOI-MyI Reductase Allergy Wheezing Verified 07/17/24 03:10 Inhibitor Sulfa (Sulfonamide Allergy Swelling Verified 07/17/24 03:10 Antibiotics) of Tongue and Lips terfenadine Allergy Verified 07/17/24 03:10 venom-honey bee Allergy Hives Verified 07/17/24 03:10 [bee venom (honey bee)] wheat Allergy Verified 07/17/24 03:10 zanamivir Allergy Swelling Verified 07/17/24 03:10 [From Relenza Diskhaler] of Tongue and Lips cilostazol [From Pletal] AdvReac Severe Swelling Verified 07/17/24 03:10 of Tongue and Lips ticagrelor [From Brilinta] AdvReac Severe Swelling Verified 07/17/24 03:10 of Tongue and Lips - Past Medical History Past Medical History: Yes Neurological History: TIA, Peripheral Neuropathy ENT History: Other Cardiac History: Arrhythmia, Congestive Heart Failure, High Cholesterol, Hypertension, Myocardial Infarction (PR) Respiratory History: CHF, COPD Endocrine Medical History: Diabetes Type II, Hypothyroidism Musculoskelatal History: No Pertinent History GI Medical History: Other, GERD History: No Pertinent History Pyscho-Social History: Anxiety Reproductive Disorders: Breast Cancer Comment: right eye retinal scratch - Past Surgical History Past Surgical History: Yes Neuro Surgical History: No Pertinent History Cardiac History: Other Respiratory Surgery: No Pertinent History GI Surgical History: Hernia Repair Genitourinary Surgical Hx: No Pertinent History Musculskeletal Surgical Hx: No Pertinent History Female Surgical History: Mastectomy, Lumpectomy Other Surgical History: left mastectomy 1993, right lumpectomy, right thyroid removed, left thyroid removed with goiter, pubic mass, left knee scope, valve replacement Significant Family History: no pertinent family hx - Social History Smoking Status: Never smoker Exposure to second hand smoke: No Alcohol: None Drug Use: none - Social Determinants of Health Will the patient participate in the screening: Yes Do you worry about a steady place to live?: No Do you have any problems with any of the following?: No known problems In the past 12 months,have you had to go without utilities?: No Have you or anyone in your house had to go without enough: No Transportation Issues: No Has anyone in your support network made you feel unsafe?: No Does the patient want assistance with any of the above?: No Comment: NH pt - Physical Exam Vital Signs: Vital Signs - 24 hr Temp Pulse Resp BP BP Pulse Ox 07/17/24 11:58 97.5 F 64 17 85/53 96 07/17/24 11:24 97.5 F 64 20 85/53 96 07/17/24 10:45 62 19 154/79 94 L 07/17/24 10:10 62 18 07/17/24 10:00 62 20 07/17/24 09:50 62 24 07/17/24 09:40 64 24 07/17/24 09:33 61 18 07/17/24 09:01 56 L 17 111/62 95 07/17/24 08:30 55 L 16 124/64 97 07/17/24 08:00 59 L 12 121/71 98 07/17/24 07:30 64 13 114/61 91 L 07/17/24 07:00 57 L 15 112/59 94 L 07/17/24 06:31 57 L 16 126/66 94 L 07/17/24 06:00 58 L 16 105/58 97 07/17/24 05:30 58 L 18 102/56 94 L 07/17/24 05:00 59 L 20 113/61 94 L 07/17/24 04:30 60 18 100/60 95 07/17/24 04:18 62 21 119/70 95 07/17/24 04:10 63 20 119/70 94 L 07/17/24 04:00 63 19 95 07/17/24 03:50 65 26 H 95 07/17/24 03:40 63 15 95 07/17/24 03:33 62 25 H 95 07/17/24 03:14 95 07/17/24 03:01 63 26 H 106/53 96 07/17/24 02:53 97.7 F 64 27 H 115/60 96 General Appearance: no apparent distress, alert, obese Neurologic Exam: alert, oriented x 3, cooperative, normal mood/affect, nml ce rebellar function, sensation nml, motor weakness, No motor deficits Eye Exam: PERRL/EOMI, eyes nml inspection Ears, Nose, Throat Exam: normal ENT inspection, TMs normal, pharynx normal, moist mucous membranes Neck Exam: normal inspection, non-tender, supple, full range of motion Respiratory Exam: normal breath sounds, lungs clear, No respiratory distress Cardiovascular Exam: regular rate/rhythm, normal heart sounds, normal peripheral pulses Gastrointestinal/Abdomen Exam: soft, normal bowel sounds, No tenderness, No mass Back Exam: normal inspection, normal range of motion, No CVA tenderness, No vertebral tenderness Extremity Exam: normal inspection, normal range of motion, pelvis stable Skin Exam: normal color, warm, dry, No rash Lymphatic Exam: No adenopathy Results - Labs Lab/Micro Results: Lab Results-Last 24 Hours 07/17/24 07/17/24 07/17/24 Range/Units 03:30 06:30 06:30 WBC 7.1 (3.98-10.04) x10^3/uL RBC 2.77 L (3.93-5.22) x10^6/uL Hgb 8.4 L (11.2-15.7) g/dL Hct 25.1 L (34.1-44.9) % MCV 90.6 (79.4-94.8) fL MCH 30.3 (25.6-32.2) pg MCHC 33.5 (32.2-35.5) g/dL RDW 13.5 (11.7-14.4) % Plt Count 258 (182-369) x10^3/uL MPV 10.9 (9.4-12.3) fL Gran % 70.3 (34.0-71.1) % Immature Gran % (Auto) 0.6 H (0.001-0.429) % Nucleat RBC Rel Count 0.0 (0.00-0.2) % Eos # (Auto) 0.36 (0.04-0.36) x10^3/uL Immature Gran # (Auto) 0.04 H (0.001-0.031) x10^3u/L Absolute Lymphs (auto) 0.98 L (1.18-3.74) x10^3/uL Absolute Monos (auto) 0.70 (0.24-0.86) x10^3/uL Absolute Nucleated RBC 0.00 (0.00-0.012) x10^3u/L Lymphocytes % 13.8 L (19.3-51.7) % Monocytes % 9.8 (4.7-12.5) % Eosinophils % 5.1 (0.7-5.8) % Basophils % 0.4 (0.1-1.2) % Absolute Granulocytes 5.01 (1.56-6.13) x10^3/uL Basophils # 0.03 (0.01-0.08) x10^3/uL Sodium 137 (135-145) mmol/L Potassium 3.9 (3.5-5.1) mmol/L Chloride 106 (98-107) mmol/L Carbon Dioxide 18 L (22-30) mmol/L Anion Gap 17.9 H (5-15) MEQ/L BUN 75 H (7-17) mg/dL Creatinine 2.94 H (0.52-1.04) mg/dL Estimated GFR 15.7 ML/MIN Glucose 64 L (74-106) mg/dL Lactic Acid (0.4-2.0) Calcium 6.0 L (8.4-10.2) mg/dL Magnesium 1.8 (1.6-2.3) mg/dL Total Bilirubin 0.30 (0.2-1.3) mg/dL AST 78 H (14-36) U/L ALT 60 H (0-35) U/L Alkaline Phosphatase 91 (38-126) U/L Troponin I (0.000-0.033) ng/mL NT-Pro-B Natriuret Pep 3190 (<300) pg/mL Serum Total Protein 6.2 L (6.3-8.2) g/dL Albumin 3.5 (3.5-5.0) g/dL Monoscreen (NEGATIVE) Influenza Type A Ag NEGATIVE (NEGATIVE) Influenza Type B Ag NEGATIVE (NEGATIVE) RSV (PCR) NEGATIVE (NEGATIVE) SARS-CoV-2 (PCR) NEGATIVE (NEGATIVE) ABO Group Rh Factor Antibody Screen (NEGATIVE) 07/17/24 07/17/24 07/17/24 Range/Units 06:30 06:30 06:58 WBC (3.98-10.04) x10^3/uL RBC (3.93-5.22) x10^6/uL Hgb (11.2-15.7) g/dL Hct (34.1-44.9) % MCV (79.4-94.8) fL MCH (25.6-32.2) pg MCHC (32.2-35.5) g/dL RDW (11.7-14.4) % Plt Count (182-369) x10^3/uL MPV (9.4-12.3) fL Gran % (34.0-71.1) % Immature Gran % (Auto) (0.001-0.429) % Nucleat RBC Rel Count (0.00-0.2) % Eos # (Auto) (0.04-0.36) x10^3/uL Immature Gran # (Auto) (0.001-0.031) x10^3u/L Absolute Lymphs (auto) (1.18-3.74) x10^3/uL Absolute Monos (auto) (0.24-0.86) x10^3/uL Absolute Nucleated RBC (0.00-0.012) x10^3u/L Lymphocytes % (19.3-51.7) % Monocytes % (4.7-12.5) % Eosinophils % (0.7-5.8) % Basophils % (0.1-1.2) % Absolute Granulocytes (1.56-6.13) x10^3/uL Basophils # (0.01-0.08) x10^3/uL Sodium (135-145) mmol/L Potassium (3.5-5.1) mmol/L Chloride (98-107) mmol/L Carbon Dioxide (22-30) mmol/L Anion Gap (5-15) MEQ/L BUN (7-17) mg/dL Creatinine (0.52-1.04) mg/dL Estimated GFR ML/MIN Glucose (74-106) mg/dL Lactic Acid 1.5 (0.4-2.0) Calcium (8.4-10.2) mg/dL Magnesium (1.6-2.3) mg/dL Total Bilirubin (0.2-1.3) mg/dL AST (14-36) U/L ALT (0-35) U/L Alkaline Phosphatase (38-126) U/L Troponin I < 0.012 (0.000-0.033) ng/mL NT-Pro-B Natriuret Pep (<300) pg/mL Serum Total Protein (6.3-8.2) g/dL Albumin (3.5-5.0) g/dL Monoscreen NEGATIVE (NEGATIVE) Influenza Type A Ag (NEGATIVE) Influenza Type B Ag (NEGATIVE) RSV (PCR) (NEGATIVE) SARS-CoV-2 (PCR) (NEGATIVE) ABO Group Rh Factor Antibody Screen (NEGATIVE) 07/17/24 07/17/24 07/17/24 Range/Units 09:57 10:31 13:10 WBC (3.98-10.04) x10^3/uL RBC (3.93-5.22) x10^6/uL Hgb (11.2-15.7) g/dL Hct (34.1-44.9) % MCV (79.4-94.8) fL MCH (25.6-32.2) pg MCHC (32.2-35.5) g/dL RDW (11.7-14.4) % Plt Count (182-369) x10^3/uL MPV (9.4-12.3) fL Gran % (34.0-71.1) % Immature Gran % (Auto) (0.001-0.429) % Nucleat RBC Rel Count (0.00-0.2) % Eos # (Auto) (0.04-0.36) x10^3/uL Immature Gran # (Auto) (0.001-0.031) x10^3u/L Absolute Lymphs (auto) (1.18-3.74) x10^3/uL Absolute Monos (auto) (0.24-0.86) x10^3/uL Absolute Nucleated RBC (0.00-0.012) x10^3u/L Lymphocytes % (19.3-51.7) % Monocytes % (4.7-12.5) % Eosinophils % (0.7-5.8) % Basophils % (0.1-1.2) % Absolute Granulocytes (1.56-6.13) x10^3/uL Basophils # (0.01-0.08) x10^3/uL Sodium (135-145) mmol/L Potassium (3.5-5.1) mmol/L Chloride (98-107) mmol/L Carbon Dioxide (22-30) mmol/L Anion Gap (5-15) MEQ/L BUN (7-17) mg/dL Creatinine (0.52-1.04) mg/dL Estimated GFR ML/MIN Glucose (74-106) mg/dL Lactic Acid (0.4-2.0) Calcium (8.4-10.2) mg/dL Magnesium (1.6-2.3) mg/dL Total Bilirubin (0.2-1.3) mg/dL AST (14-36) U/L ALT (0-35) U/L Alkaline Phosphatase (38-126) U/L Troponin I < 0.012 < 0.012 (0.000-0.033) ng/mL NT-Pro-B Natriuret Pep (<300) pg/mL Serum Total Protein (6.3-8.2) g/dL Albumin (3.5-5.0) g/dL Monoscreen (NEGATIVE) Influenza Type A Ag (NEGATIVE) Influenza Type B Ag (NEGATIVE) RSV (PCR) (NEGATIVE) SARS-CoV-2 (PCR) (NEGATIVE) ABO Group O Rh Factor POSITIVE Antibody Screen NEGATIVE (NEGATIVE) Microbiology 07/17/24 06:30 Blood Culture - Preliminary Blood - Radiology Impressions Radiology Exams & Impressions: Radiology Procedures Category Date Time Status CHEST 1 VIEW (PORTABLE) Stat Exams 07/17/24 03:02 Completed Assessment/Plan (1) Iron deficiency anemia Current Visit: Yes Status: Chronic Assessment & Plan: - continue ferrous sulfate - Hgb 8.4- trend - CBC reviewed Code(s): D50.9 - IRON DEFICIENCY ANEMIA, UNSPECIFIED (2) Acute on chronic renal failure Current Visit: Yes Status: Acute Assessment & Plan: - Creat 2.94- baseline 2.02 - lasix held - NS @ 50 ml/hr - CMP reviewed Code(s): N17.9 - ACUTE KIDNEY FAILURE, UNSPECIFIED; N18.9 - CHRONIC KIDNEY DISEASE, UNSPECIFIED (3) Generalized weakness Current Visit: Yes Status: Acute Code(s): R53.1 - WEAKNESS (4) Shortness of breath Current Visit: Yes Status: Resolved Assessment & Plan: - RA 96 % - increased with activity - Tele - likely 2:2 anemia - also has a hx of COPD - CXR: Portable apical lordotic chest demonstrates new left mid lung subcentimeter atelectasis/scarring. Remaining lungs now clear. Heart borderline enlarged again with cardiac valve replacement surgery. Bony thorax intact again with osteopenia and mild degenerative changes. Impression: Nonacute chest with chronic features. Code(s): R06.02 - SHORTNESS OF BREATH (5) COPD (chronic obstructive pulmonary disease) Current Visit: No Status: Chronic Assessment & Plan: - not in acute exacerbation (6) DM II (diabetes mellitus, type II), controlled Current Visit: No Status: Chronic Qualifiers: Diabetes mellitus care home insulin use: with press tender long goods use Diabetes mellitus complication status: with kidney complications Diabetes mellitus complication detail: with chronic kidney disease Assessment & Plan: - A1C pending - Continue home insulin management - accuchecks ac/hs Code(s): E11.9 - TYPE 2 DIABETES MELLITUS WITHOUT COMPLICATIONS (7) Hypocalcemia Current Visit: No Status: Chronic Assessment & Plan: - Ca+ 6.0 - Continue calcium carb Q8 - hx of Vit D def. - will recheck VIt D in AM- consider restarting replacement - Mg+ 1.8 - CKD Code(s): E83.51 - HYPOCALCEMIA (8) Atrial fibrillation Current Visit: No Status: Chronic Assessment & Plan: - Continue Eliquis, coreg - tele Code(s): I48.91 - UNSPECIFIED ATRIAL FIBRILLATION (9) HTN (hypertension) Current Visit: No Status: Chronic Assessment & Plan: - BP stable - Continue home meds Code(s): I10 - ESSENTIAL (PRIMARY) HYPERTENSION (10) Hypothyroidism Current Visit: No Status: Chronic Assessment & Plan: - Continue synthroid - TSH in AM Code(s): E03.9 - HYPOTHYROIDISM, UNSPECIFIED (11) manager intermediate (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
[2024-07-17] MEDS ORDERED: MEDICATION INTERVENTION MC SCH (15:15)
[2024-07-17] MEDS: Advair Hfa 115/21 Common canister IH SCH (16:24)
[2024-07-17] MEDS: Sodium Chloride 0.9% 1000 ML 1,000 ML IV SCH (16:44)
[2024-07-17] MEDS ORDERED: NON-FORMULARY ITEM (Insulin Lispro 1 UNIT Ml) SQ SCH (17:00)
[2024-07-17] MEDS: GlucaGen 1 MG IM PRN (17:06)
[2024-07-17] MEDS: HUMALOG SQ SCH (17:11)
[2024-07-17] MEDS: COREG 12.5 MG PO SCH (17:30)
[2024-07-17] MEDS: NORVASC 5 MG PO SCH (17:30)
[2024-07-17] MEDS: Cozaar 50 MG PO SCH (17:31)
[2024-07-17] MEDS: Multaq 400 MG PO SCH (17:34)
[2024-07-17] MEDS: Singulair 10 MG PO SCH (17:37)
[2024-07-17] MEDS: Acidophilus TABLET PO SCH (17:37)
[2024-07-17] MEDS: Vitamin B-12 500 MCG PO SCH (17:37)
[2024-07-17] MEDS: FOLATE 1 MG PO SCH (17:37)
[2024-07-17] MEDS: Lyrica 50MG PO SCH (17:37)
[2024-07-17] MEDS: BUSPAR 5 MG PO SCH (17:37)
[2024-07-17] MEDS ORDERED: ADVAIR HFA 45/21 COMMON CANISTER IH SCH (19:00)
[2024-07-17] MEDS ORDERED: CRANBERRY FRUIT EXTRACT 200 MG PO SCH (22:00)
[2024-07-17] MEDS ORDERED: NON-FORMULARY ITEM (Fluticasone Propion/Salmeterol [Advair 100-50 Diskus] 1 EACH Blst.W.De IH SCH (22:00)
[2024-07-17] MEDS ORDERED: NON-FORMULARY ITEM (Levothyroxine Sodium [Levothyroxine Sodium] 25 MCG Capsule) PO SCH (22:00)
[2024-07-17] MEDS ORDERED: MENTHOL TOP SCH (22:00)
[2024-07-17] MEDS ORDERED: NON-FORMULARY ITEM (Apixaban*** [Eliquis 5 Mg Tablet***] 5 MG Tablet) PO SCH (22:00)
[2024-07-17] MEDS ORDERED: CALCIUM CARBONATE 750 MG PO SCH (22:00)
[2024-07-17] MEDS: FEOSOL 325 MG PO SCH (23:49)
[2024-07-17] MEDS: ELIQUIS 2.5 MG TABLET PO SCH (23:49)
[2024-07-17] MEDS: Flomax 0.4 MG PO SCH (23:50)
[2024-07-17] MEDS: SYNTHROID 25 MCG PO SCH (23:50)
[2024-07-17] MEDS: Pepcid 20 MG PO SCH (23:50)
[2024-07-17] MEDS: MELATONIN PO SCH (23:50)
[2024-07-17] MEDS: Tums EX 750 MG PO SCH (23:51)
[2024-07-17] MEDS: Lantus Insulin SQ SCH (23:51)
[2024-07-18] MEDS: Pain Relieving Rub TOP SCH (00:03)
[2024-07-18 06:26] LABS: Hematocrit 23.7 % (34.1-44.9); Hemoglobin 7.8 g/dL (11.2-15.7); Mean Cell Volume 92.2 fL (79.4-94.8); Mean Corpuscular Hemoglobin 30.4 pg (25.6-32.2); Mean Corpuscular Hgb Concent. 32.9 g/dL (32.2-35.5); Mean Platelet Volume 11.2 fL (9.4-12.3); Platelet Count 251 x10^3/uL (182-369); Red Blood Count 2.57 x10^6/uL (3.93-5.22); Red Cell Distribution Width 13.6 % (11.7-14.4); White Blood Count 5.4 x10^3/uL (3.98-10.04)
[2024-07-18 07:58] LABS: ANION GAP 14.3 MEQ/L (5-15); BILIRUBIN,TOTAL 0.3 mg/dL (0.2-1.3); Creatinine 1 2.22 mg/dL (0.52-1.04); Potassium 3.5 mmol/L (3.5-5.1); TSH, 3RD Generation 8.643 mIU/L (0.470-4.680); Total Protein 5.8 g/dL (6.3-8.2)
[2024-07-18] MEDS ORDERED: NON-FORMULARY ITEM (Insulin Lispro 1 UNIT Ml) SQ SCH ×2 (08:00→12:00)
[2024-07-18 08:03] LABS: Calcium 5.2 mg/dL (8.4-10.2)
[2024-07-18] MEDS ORDERED: GlucaGen 1 MG IM PRN (08:06)
[2024-07-18] MEDS ORDERED: Glutose 15 GM ORAL GEL PO PRN (08:06)
[2024-07-18] MEDS ORDERED: D50W 50 ml Abboject IV PRN (08:06)
[2024-07-18] MEDS: HUMALOG SQ SCH ×2 (09:18→13:10)
[2024-07-18] MEDS: DEXTROSE IV SCH ×2 (09:34→15:50)
[2024-07-18] MEDS: WATER IV SCH ×2 (09:34→15:50)
[2024-07-18] MEDS: CALCIUM GLUCONATE IV SCH ×2 (09:34→15:50)
[2024-07-18] MEDS: CLARITIN 10 MG PO SCH (09:34)
[2024-07-18] MEDS: VITAMIN D PO SCH (09:34)
[2024-07-18] MEDS: Multaq 400 MG PO SCH (09:35)
[2024-07-18] MEDS: SYNTHROID 100 MCG PO SCH (09:35)
[2024-07-18] MEDS: PHARMACY DOSING REQUEST MC ONE ×2 (09:38→15:48)
[2024-07-18] MEDS ORDERED: BULGARICUS PO SCH (10:00)
[2024-07-18] MEDS ORDERED: NON-FORMULARY ITEM (Losartan Potassium [Losartan Potassium] 25 MG Tablet) PO SCH (10:00)
[2024-07-18] MEDS ORDERED: NON-FORMULARY ITEM (Cetirizine Hcl [Cetirizine Hcl] 10 MG Tablet) PO SCH (10:00)
[2024-07-18] MEDS ORDERED: NON-FORMULARY ITEM (Calcium Carbonate [Calcium] 500 MG Tablet) PO SCH (10:00)
[2024-07-18] MEDS ORDERED: ACIDOPHILUS PO SCH (10:00)
[2024-07-18] MEDS ORDERED: NON-FORMULARY ITEM (Calcitriol [Calcitriol] 0.5 MCG Capsule) PO SCH (10:00)
[2024-07-18] MEDS ORDERED: TYLENOL 325 MG PO PRN (13:08)
--- NOTE | 2024-07-18 14:32 | XRAY ---
Indication: Right upper extremity edema. Two-dimensional sonogram and color Doppler imaging major venous vessels right upper extremity performed. Comparison: None Right elbow overlying Tegaderm limits evaluation for underlying venous vessels. Incidental PICC line in basilic vein. Remaining visualized right jugular, subclavian, axillary, basilic, brachial, radial, and ulnar veins are negative for thrombosis. Veins demonstrate normal compressibility and normal venous waveforms. Impression: Limited right upper extremity venous sonogram as detailed. Right upper extremity grossly negative for venous thrombosis.
--- NOTE | 2024-07-18 14:46 | PCM.NOTE ---
Date and Time: 07/18/24 1439 Subjective Assessment: 07/17/24 is a 79 year old female with PMHX of hypothyroidism, hypertension, hyperlipidemia, diabetes, atrial fibrillation on Eliquis, TIAs, peripheral neuropathy, chronic anemia, CHF, COPD, coronary disease, gastroesophageal reflux disease and anxiety. She is a resident of [facility] and brought to the emergency department by the dialysis patient care technician service secondary to shortness of breath. Patient states that she began not feeling well during dinner on 07/16/2024. Upon arrival to the emergency department her room air oxygenation saturation level is 95% and her respiratory rate is 20. She does not appear to be in any distress. Labs show chronic anemia, dehydration, TIM, and chronic hypocalcemia. Midline placed in ER. IVF started. She is currently RA 96% and denies SOB. She has chronic weakness and will have PT eval. UA pending. CXR negative for acute concern. She denies any further concerns at this time. 07/18/24 Pt up in chair today. R arm became swollen and tight. Venous duplex ordered and negative for DVT. Will elevate right arm to heart level on pillow. She states she was laying on her arm and this may have caused this. Calcium 5.2 and 2 amps calcium gluconate in D5W gave. Will repeat lab 2 hours after completed. Accuchecks ordered Q4 yesterday and not done overnight. This morning glucose was critical and hypoglycemia protocol followed by nursing. Discussed need for orders to be followed overnight with administrative director Genoveva as the outcomes could be fatal. Continue accuchecks Q4. Consider IVF with dextrose. TIM improving. Pt states she continues to not feel well. She denies CP, SOB, abd pain, N/V/D. - Review of Systems Constitutional: No Fever, No Chills Eyes: No Symptoms Ears, Nose, & Throat: No Symptoms Respiratory: No Cough, No Short Of Breath Cardiac: No Chest Pain, No Edema, No Syncope Abdominal/Gastrointestinal: No Abdominal Pain, No Nausea, No Vomiting, No Diarrhea Genitourinary Symptoms: No Dysuria Musculoskeletal: No Back Pain, No Neck Pain Skin: Other (right arm edema), No Rash Neurological: No Dizziness, No Focal Weakness, No Sensory Changes Psychological: No Symptoms Endocrine: No Symptoms Hematologic/Lymphatic: No Symptoms Immunological/Allergic: No Symptoms Objective Exam General Appearance: no apparent distress, alert, obese Neurologic Exam: alert, oriented x 3, cooperative, normal mood/affect, nml cerebellar function, sensation nml, No motor deficits Skin Exam: normal color, warm, dry Eye Exam: PERRL, EOMI, eyes nml inspection Ears, Nose, Throat Exam: normal ENT inspection, pharynx normal, moist mucous membranes Neck Exam: normal inspection, non-tender, supple, full range of motion Respiratory Exam: normal breath sounds, lungs clear, No respiratory distress Cardiovascular Exam: regular rate/rhythm, normal heart sounds Gastrointestinal/Abdomen Exam: soft, No tenderness, No mass Extremity Exam: normal inspection, normal range of motion, swelling (right arm) Back Exam: normal inspection, normal range of motion, No CVA tenderness, No vertebral tenderness Pelvic Exam: deferred Rectal Exam: deferred Objective Data Vital Signs: Vital Signs - 24 hr Temp Pulse Resp BP Pulse Ox 07/18/24 12:00 97.5 F 63 18 135/72 98 07/18/24 07:40 96.8 F 58 L 18 115/60 98 07/18/24 05:43 59 L 18 96 07/18/24 04:52 97 F 60 16 115/56 98 07/18/24 04:00 97.3 F 64 18 135/63 99 07/18/24 00:00 97.3 F 64 18 135/63 99 07/17/24 20:00 97.5 F 70 18 136/69 99 07/17/24 19:46 67 16 100 07/17/24 16:19 65 16 96 07/17/24 16:00 97.8 F 73 17 109/58 94 L Pain Assessment - Last Documented Pain Intensity 0 Intake and Output: Intake & Output 07/16/24 07/17/24 07/18/24 07/19/24 11:59 11:59 11:59 11:59 Intake Total 1097 Balance 1097 Weight 85.5 kg Lab Results: Lab Results-Last 24 Hours 07/17/24 07/17/24 07/17/24 Range/Units 16:58 17:03 17:18 WBC (3.98-10.04) x10^3/uL RBC (3.93-5.22) x10^6/uL Hgb (11.2-15.7) g/dL Hct (34.1-44.9) % MCV (79.4-94.8) fL MCH (25.6-32.2) pg MCHC (32.2-35.5) g/dL RDW (11.7-14.4) % Plt Count (182-369) x10^3/uL MPV (9.4-12.3) fL Sodium (135-145) mmol/L Potassium (3.5-5.1) mmol/L Chloride (98-107) mmol/L Carbon Dioxide (22-30) mmol/L Anion Gap (5-15) MEQ/L BUN (7-17) mg/dL Creatinine (0.52-1.04) mg/dL Estimated GFR ML/MIN Glucose 69 L (74-106) mg/dL POC Glucometer 41 L* 43 L* (50 to 500) mg/dL Hemoglobin A1c (4.5-6.0) % Calcium (8.4-10.2) mg/dL Total Bilirubin (0.2-1.3) mg/dL AST (14-36) U/L ALT (0-35) U/L Alkaline Phosphatase (38-126) U/L Serum Total Protein (6.3-8.2) g/dL Albumin (3.5-5.0) g/dL 25-OH Vitamin D Total (30-100) ng/mL TSH 3rd Generation (0.470-4.680) mIU/L 07/17/24 07/17/24 07/18/24 Range/Units 19:56 21:56 04:28 WBC (3.98-10.04) x10^3/uL RBC (3.93-5.22) x10^6/uL Hgb (11.2-15.7) g/dL Hct (34.1-44.9) % MCV (79.4-94.8) fL MCH (25.6-32.2) pg MCHC (32.2-35.5) g/dL RDW (11.7-14.4) % Plt Count (182-369) x10^3/uL MPV (9.4-12.3) fL Sodium (135-145) mmol/L Potassium (3.5-5.1) mmol/L Chloride (98-107) mmol/L Carbon Dioxide (22-30) mmol/L Anion Gap (5-15) MEQ/L BUN (7-17) mg/dL Creatinine (0.52-1.04) mg/dL Estimated GFR ML/MIN Glucose (74-106) mg/dL POC Glucometer 356 H 287 H 108 H (50 to 500) mg/dL Hemoglobin A1c (4.5-6.0) % Calcium (8.4-10.2) mg/dL Total Bilirubin (0.2-1.3) mg/dL AST (14-36) U/L ALT (0-35) U/L Alkaline Phosphatase (38-126) U/L Serum Total Protein (6.3-8.2) g/dL Albumin (3.5-5.0) g/dL 25-OH Vitamin D Total (30-100) ng/mL TSH 3rd Generation (0.470-4.680) mIU/L 07/18/24 07/18/24 07/18/24 Range/Units 06:20 06:20 06:20 WBC 5.4 (3.98-10.04) x10^3/uL RBC 2.57 L (3.93-5.22) x10^6/uL Hgb 7.8 L (11.2-15.7) g/dL Hct 23.7 L (34.1-44.9) % MCV 92.2 (79.4-94.8) fL MCH 30.4 (25.6-32.2) pg MCHC 32.9 (32.2-35.5) g/dL RDW 13.6 (11.7-14.4) % Plt Count 251 (182-369) x10^3/uL MPV 11.2 (9.4-12.3) fL Sodium (135-145) mmol/L Potassium (3.5-5.1) mmol/L Chloride (98-107) mmol/L Carbon Dioxide (22-30) mmol/L Anion Gap (5-15) MEQ/L BUN (7-17) mg/dL Creatinine (0.52-1.04) mg/dL Estimated GFR ML/MIN Glucose (74-106) mg/dL POC Glucometer (50 to 500) mg/dL Hemoglobin A1c 7.21 H (4.5-6.0) % Calcium (8.4-10.2) mg/dL Total Bilirubin (0.2-1.3) mg/dL AST (14-36) U/L ALT (0-35) U/L Alkaline Phosphatase (38-126) U/L Serum Total Protein (6.3-8.2) g/dL Albumin (3.5-5.0) g/dL 25-OH Vitamin D Total 22.4 L (30-100) ng/mL TSH 3rd Generation (0.470-4.680) mIU/L 07/18/24 07/18/24 07/18/24 Range/Units 06:20 07:30 07:38 WBC (3.98-10.04) x10^3/uL RBC (3.93-5.22) x10^6/uL Hgb (11.2-15.7) g/dL Hct (34.1-44.9) % MCV (79.4-94.8) fL MCH (25.6-32.2) pg MCHC (32.2-35.5) g/dL RDW (11.7-14.4) % Plt Count (182-369) x10^3/uL MPV (9.4-12.3) fL Sodium 140 (135-145) mmol/L Potassium 3.5 (3.5-5.1) mmol/L Chloride 108 H (98-107) mmol/L Carbon Dioxide 20 L (22-30) mmol/L Anion Gap 14.3 (5-15) MEQ/L BUN 60 H (7-17) mg/dL Creatinine 2.22 H (0.52-1.04) mg/dL Estimated GFR 22.0 ML/MIN Glucose 71 L (74-106) mg/dL POC Glucometer 49 L* 43 L* (50 to 500) mg/dL Hemoglobin A1c (4.5-6.0) % Calcium 5.2 L* (8.4-10.2) mg/dL Total Bilirubin 0.30 (0.2-1.3) mg/dL AST 40 H (14-36) U/L ALT 41 H (0-35) U/L Alkaline Phosphatase 78 (38-126) U/L Serum Total Protein 5.8 L (6.3-8.2) g/dL Albumin 3.0 L (3.5-5.0) g/dL 25-OH Vitamin D Total (30-100) ng/mL TSH 3rd Generation 8.643 H (0.470-4.680) mIU/L 07/18/24 07/18/24 07/18/24 Range/Units 08:05 09:06 09:07 WBC (3.98-10.04) x10^3/uL RBC (3.93-5.22) x10^6/uL Hgb (11.2-15.7) g/dL Hct (34.1-44.9) % MCV (79.4-94.8) fL MCH (25.6-32.2) pg MCHC (32.2-35.5) g/dL RDW (11.7-14.4) % Plt Count (182-369) x10^3/uL MPV (9.4-12.3) fL Sodium (135-145) mmol/L Potassium (3.5-5.1) mmol/L Chloride (98-107) mmol/L Carbon Dioxide (22-30) mmol/L Anion Gap (5-15) MEQ/L BUN (7-17) mg/dL Creatinine (0.52-1.04) mg/dL Estimated GFR ML/MIN Glucose 53 L (74-106) mg/dL POC Glucometer 63 L 64 L (50 to 500) mg/dL Hemoglobin A1c (4.5-6.0) % Calcium (8.4-10.2) mg/dL Total Bilirubin (0.2-1.3) mg/dL AST (14-36) U/L ALT (0-35) U/L Alkaline Phosphatase (38-126) U/L Serum Total Protein (6.3-8.2) g/dL Albumin (3.5-5.0) g/dL 25-OH Vitamin D Total (30-100) ng/mL TSH 3rd Generation (0.470-4.680) mIU/L 07/18/24 Range/Units 11:51 WBC (3.98-10.04) x10^3/uL RBC (3.93-5.22) x10^6/uL Hgb (11.2-15.7) g/dL Hct (34.1-44.9) % MCV (79.4-94.8) fL MCH (25.6-32.2) pg MCHC (32.2-35.5) g/dL RDW (11.7-14.4) % Plt Count (182-369) x10^3/uL MPV (9.4-12.3) fL Sodium (135-145) mmol/L Potassium (3.5-5.1) mmol/L Chloride (98-107) mmol/L Carbon Dioxide (22-30) mmol/L Anion Gap (5-15) MEQ/L BUN (7-17) mg/dL Creatinine (0.52-1.04) mg/dL Estimated GFR ML/MIN Glucose (74-106) mg/dL POC Glucometer 122 H (50 to 500) mg/dL Hemoglobin A1c (4.5-6.0) % Calcium (8.4-10.2) mg/dL Total Bilirubin (0.2-1.3) mg/dL AST (14-36) U/L ALT (0-35) U/L Alkaline Phosphatase (38-126) U/L Serum Total Protein (6.3-8.2) g/dL Albumin (3.5-5.0) g/dL 25-OH Vitamin D Total (30-100) ng/mL TSH 3rd Generation (0.470-4.680) mIU/L Radiology Exams: Radiology Procedures Category Date Time Status CHEST 1 VIEW (PORTABLE) Stat Exams 07/17/24 03:02 Completed VENOUS UNILAT/LIMITED EXTREMIT [US] Routine Exams 07/18/24 12:50 Completed Multi-Disciplinary Progress Notes: Multi-Disciplinary Progress Notes 07/18/24 05:47 Respiratory Note by Kaleigh Selby Pt is refusing scheduled ya MDI at this time. Initialized on 07/18/24 05:47 - END OF NOTE Assessment/Plan (1) Iron deficiency anemia Current Visit: Yes Status: Chronic Code(s): D50.9 - IRON DEFICIENCY ANEMIA, UNSPECIFIED (2) Acute on chronic renal failure Current Visit: Yes Status: Acute Code(s): N17.9 - ACUTE KIDNEY FAILURE, UNSPECIFIED; N18.9 - CHRONIC KIDNEY DISEASE, UNSPECIFIED (3) Generalized weakness Current Visit: Yes Status: Acute Code(s): R53.1 - WEAKNESS (4) Shortness of breath Current Visit: Yes Status: Resolved Code(s): R06.02 - SHORTNESS OF BREATH (5) COPD (chronic obstructive pulmonary disease) Current Visit: No Status: Chronic (6) DM II (diabetes mellitus, type II), controlled Current Visit: No Status: Chronic Qualifiers: Diabetes mellitus [facility]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 Diabetes mellitus complication status: with kidney complications Diabetes mellitus complication detail: with chronic kidney disease Code(s): E11.9 - TYPE 2 DIABETES MELLITUS WITHOUT COMPLICATIONS (7) Hypocalcemia Current Visit: No Status: Chronic Code(s): E83.51 - HYPOCALCEMIA (8) Atrial fibrillation Current Visit: No Status: Chronic Code(s): I48.91 - UNSPECIFIED ATRIAL FIBRILLATION (9) HTN (hypertension) Current Visit: No Status: Chronic Code(s): I10 - ESSENTIAL (PRIMARY) HYPERTENSION (10) Hypothyroidism Current Visit: No Status: Chronic Code(s): E03.9 - HYPOTHYROIDISM, UNSPECIFIED (11) 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 Current Visit: No Status: Chronic Assessment & Plan: (1) Iron deficiency anemia Current Visit: Yes Status: Chronic Assessment & Plan: - continue ferrous sulfate - Hgb 8.4- trend - CBC reviewed 07/18 - Hgb 7.8 - CBC reviewed Code(s): D50.9 - IRON DEFICIENCY ANEMIA, UNSPECIFIED (2) Acute on chronic renal failure Current Visit: Yes Status: Acute Assessment & Plan: - Creat 2.94- baseline 2.02 - lasix held - NS @ 50 ml/hr - CMP reviewed 07/18 - Creat 2.22- improving - cont IVF - CMP reviewed Code(s): N17.9 - ACUTE KIDNEY FAILURE, UNSPECIFIED; N18.9 - CHRONIC KIDNEY DISEASE, UNSPECIFIED (3) Generalized weakness Current Visit: Yes Status: Acute Code(s): R53.1 - WEAKNESS - PT eval (4) Shortness of breath Current Visit: Yes Status: Resolved Assessment & Plan: - RA 96 % - increased with activity - Tele - likely 2:2 anemia - also has a hx of COPD - CXR: Portable apical lordotic chest demonstrates new left mid lung subcentimeter atelectasis/scarring. Remaining lungs now clear. Heart borderline enlarged again with cardiac valve replacement surgery. Bony thorax intact again with osteopenia and mild degenerative changes. Impression: Nonacute chest with chronic features. 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 - will recheck VIt D in AM- consider restarting replacement - Mg+ 1.8 - CKD 07/18 - VIt D replacement daily PO - Ca+ 5.2- replaced- trend Code(s): E83.51 - HYPOCALCEMIA (8) Atrial fibrillation Current Visit: No Status: Chronic Assessment & Plan: - Continue Eliquis, coreg - tele Code(s): I48.91 - UNSPECIFIED ATRIAL FIBRILLATION (9) HTN (hypertension) Current Visit: No Status: Chronic Assessment & Plan: - BP stable - Continue home meds Code(s): I10 - ESSENTIAL (PRIMARY) HYPERTENSION (10) Hypothyroidism Current Visit: No Status: Chronic Assessment & Plan: - Continue synthroid - TSH in AM 07/18 - TSH 8.6- will need OP f/U with PCP Code(s): E03.9 - HYPOTHYROIDISM, UNSPECIFIED (11) care home (current) use of anticoagulants Current Visit: No Status: Chronic Assessment & Plan: - Continue Eliquis Code(s): Z79.01 - 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 Code(s): R60.0 - LOCALIZED EDEMA (13) Vitamin D deficiency Current Visit: Yes Status: Chronic Assessment & Plan: - daily replacement Code(s): E55.9 - VITAMIN D DEFICIENCY, UNSPECIFIED (14) Hypoglycemia Current Visit: Yes Status: Acute Assessment & Plan: - hypoglycemia protocol - stop all insulin - accuchecks Q4 VTE: Eliquis PPI: pantoprazole Next of KIN: Child- Letty Dumont- [phone] D/C plan: 1-2 days Code status: Full Code(s): E16.2 - HYPOGLYCEMIA, UNSPECIFIED
[2024-07-18] MEDS: Tums EX 750 MG PO PRN (21:53)
[2024-07-19] MEDS: HUMALOG SQ PRN (00:46)
[2024-07-19] MEDS: Lantus Insulin SQ ONE (00:46)
[2024-07-19 04:38] VITALS: TEMP 97.3
[2024-07-19 05:48] LABS: Hematocrit 25.2 % (34.1-44.9); Hemoglobin 8.2 g/dL (11.2-15.7); Mean Corpuscular Hemoglobin 29.9 pg (25.6-32.2); Mean Corpuscular Hgb Concent. 32.5 g/dL (32.2-35.5); Mean Platelet Volume 11.3 fL (9.4-12.3); Platelet Count 257 x10^3/uL (182-369); Red Blood Count 2.74 x10^6/uL (3.93-5.22); Red Cell Distribution Width 13.5 % (11.7-14.4)
[2024-07-19 06:10] LABS: ALBUMIN 3.3 g/dL (3.5-5.0); ANION GAP 10.5 MEQ/L (5-15); BILIRUBIN,TOTAL 0.3 mg/dL (0.2-1.3); Calcium 6.7 mg/dL (8.4-10.2); Creatinine 1 2.2 mg/dL (0.52-1.04); EST GLOMERULAR FILTRATION RATE 22.3 ML/MIN; Potassium 4.1 mmol/L (3.5-5.1); Total Protein 6.3 g/dL (6.3-8.2)
[2024-07-19 07:12] VITALS: RESP 18; O2SAT 99
[2024-07-19] MEDS: WATER IV SCH (09:16)
[2024-07-19] MEDS: CALCIUM GLUCONATE IV SCH (09:16)
[2024-07-19] MEDS: DEXTROSE IV SCH (09:16)
[2024-07-19] MEDS: PHARMACY DOSING REQUEST MC ONE (09:17)
[2024-07-19 10:43] VITALS: BP 142/73; PULSE 61
--- NOTE | 2024-07-19 12:44 | PCM.DS ---
Discharge Summary Date of Admission: 07/17/24 10:55 Date of Discharge: 07/19/24 Admitting Physician: NAOMI MARISCAL MD Consults: Consults on Case 07/18/24 08:06 Notify Physician ROUTINE Primary Care Provider: KRISHAN GEORGEYESH Allergies Allergies albuterol Allergy (Intermediate, Verified 07/17/24 03:10) Swelling of Tongue and Lips propranolol [From Inderal LA] Allergy (Intermediate, Verified 07/17/24 03:10) red face and ears levofloxacin [From Levaquin] Allergy (Unknown, Verified 07/17/24 03:10) clonazepam [From Klonopin] Allergy (Verified 07/17/24 03:10) Tightness of Throat tongue swollen dronedarone [From Multaq] Allergy (Verified 07/18/24 12:04) Itching PATIENT DENIES THIS ALLERGY 07/18/24 EKING RN metoclopramide [From Reglan] Allergy (Verified 07/17/24 03:10) propranolol HCl [From Inderal LA] Allergy (Verified 07/17/24 03:10) Swelling of Tongue and Lips red face and ears [id number] Reductase Inhibitor Allergy (Verified 07/17/24 03:10) Wheezing Sulfa (Sulfonamide Antibiotics) Allergy (Verified 07/17/24 03:10) Swelling of Tongue and Lips throat swell,ears red terfenadine Allergy (Verified 07/17/24 03:10) venom-honey bee [bee venom (honey bee)] Allergy (Verified 07/17/24 03:10) Hives large hives wheat Allergy (Verified 07/17/24 03:10) zanamivir [From Relenza Diskhaler] Allergy (Verified 07/17/24 03:10) Swelling of Tongue and Lips throat tightness cilostazol [From Pletal] Adverse Reaction (Severe, Verified 07/17/24 03:10) Swelling of Tongue and Lips ticagrelor [From Brilinta] Adverse Reaction (Severe, Verified 07/17/24 03:10) Swelling of Tongue and Lips Hospital Summary - Hospital Course Hospital Course: 07/17/24 is a 79 year old female with PMHX of hypothyroidism, hypertension, hyperlipidemia, diabetes, atrial fibrillation on Eliquis, TIAs, peripheral neuropathy, chronic anemia, CHF, COPD, coronary disease, gastroesophageal reflux disease and anxiety. She is a resident of [facility] and brought to the emergency department by the wedding florist service secondary to shortness of breath. Patient states that she began not feeling well during dinner on 07/16/2024. Upon arrival to the emergency department her room air oxygenation saturation level is 95% and her respiratory rate is 20. She does not appear to be in any distress. Labs show chronic anemia, dehydration, TIM, and chronic hypocalcemia. Midline placed in ER. IVF started. She is currently RA 96% and denies SOB. She has chronic weakness and will have PT eval. UA pending. CXR negative for acute concern. She denies any further concerns at this time. 07/18/24 Pt up in chair today. R arm became swollen and tight. Venous duplex ordered and negative for DVT. Will elevate right arm to heart level on pillow. She states she was laying on her arm and this may have caused this. Calcium 5.2 and 2 amps calcium gluconate in D5W gave. Will repeat lab 2 hours after completed. Accuchecks ordered Q4 yesterday and not done overnight. This morning glucose was critical and hypoglycemia protocol followed by nursing. Discussed need for orders to be followed overnight with professor of business administration Genoveva as the outcomes could be fatal. Continue accuchecks Q4. Consider IVF with dextrose. TIM improving. Pt states she continues to not feel well. She denies CP, SOB, abd pain, N/V/D. 07/19/24 Pt resting in bed. Glucose again low this AM. She states this is baseline for her to have high then low glucose readings and she is difficult to manage. Corrected Ca+ 6.9 again replaced. Calcium carbonate to be taken QID. Will have pt f/u OP with endocrinology. Hgb stable. If glucose remains up she can d/c today. She denies any further concerns at this time. - Vitals & Intake/Output Vital Signs: Vital Signs Temperature 97.3 F 07/19/24 04:00 Pulse Rate 61 07/19/24 10:42 Respiratory Rate 18 07/19/24 07:41 Blood Pressure 142/73 07/19/24 10:42 O2 Sat by Pulse Oximetry 99 07/19/24 07:41 Intake & Output: Intake & Output 07/17/24 07/18/24 07/19/24 07/20/24 11:59 11:59 11:59 11:59 Intake Total 1097 2130 Balance 1097 0 Weight 85.5 kg - Lab Result Diagrams: 07/19/24 05:45 07/19/24 05:45 Lab Results-Last 24 Hrs: Lab Results-Last 24 Hours 07/18/24 07/18/24 07/18/24 Range/Units 14:24 16:45 19:20 WBC (3.98-10.04) x10^3/uL RBC (3.93-5.22) x10^6/uL Hgb (11.2-15.7) g/dL Hct (34.1-44.9) % MCV (79.4-94.8) fL MCH (25.6-32.2) pg MCHC (32.2-35.5) g/dL RDW (11.7-14.4) % Plt Count (182-369) x10^3/uL MPV (9.4-12.3) fL Sodium (135-145) mmol/L Potassium (3.5-5.1) mmol/L Chloride (98-107) mmol/L Carbon Dioxide (22-30) mmol/L Anion Gap (5-15) MEQ/L BUN (7-17) mg/dL Creatinine (0.52-1.04) mg/dL Estimated GFR ML/MIN Glucose (74-106) mg/dL POC Glucometer 130 H (74 to 106) mg/dL Calcium 6.2 L D 6.6 L (8.4-10.2) mg/dL Total Bilirubin (0.2-1.3) mg/dL AST (14-36) U/L ALT (0-35) U/L Alkaline Phosphatase (38-126) U/L Serum Total Protein (6.3-8.2) g/dL Albumin (3.5-5.0) g/dL 07/18/24 07/18/24 07/19/24 Range/Units 21:17 23:32 04:26 WBC (3.98-10.04) x10^3/uL RBC (3.93-5.22) x10^6/uL Hgb (11.2-15.7) g/dL Hct (34.1-44.9) % MCV (79.4-94.8) fL MCH (25.6-32.2) pg MCHC (32.2-35.5) g/dL RDW (11.7-14.4) % Plt Count (182-369) x10^3/uL MPV (9.4-12.3) fL Sodium (135-145) mmol/L Potassium (3.5-5.1) mmol/L Chloride (98-107) mmol/L Carbon Dioxide (22-30) mmol/L Anion Gap (5-15) MEQ/L BUN (7-17) mg/dL Creatinine (0.52-1.04) mg/dL Estimated GFR ML/MIN Glucose (74-106) mg/dL POC Glucometer 224 H 244 H 117 H (74 to 106) mg/dL Calcium (8.4-10.2) mg/dL Total Bilirubin (0.2-1.3) mg/dL AST (14-36) U/L ALT (0-35) U/L Alkaline Phosphatase (38-126) U/L Serum Total Protein (6.3-8.2) g/dL Albumin (3.5-5.0) g/dL 07/19/24 07/19/24 07/19/24 Range/Units 05:45 05:45 07:34 WBC 6.0 (3.98-10.04) x10^3/uL RBC 2.74 L (3.93-5.22) x10^6/uL Hgb 8.2 L (11.2-15.7) g/dL Hct 25.2 L (34.1-44.9) % MCV 92.0 (79.4-94.8) fL MCH 29.9 (25.6-32.2) pg MCHC 32.5 (32.2-35.5) g/dL RDW 13.5 (11.7-14.4) % Plt Count 257 (182-369) x10^3/uL MPV 11.3 (9.4-12.3) fL Sodium 138 (135-145) mmol/L Potassium 4.1 (3.5-5.1) mmol/L Chloride 108 H (98-107) mmol/L Carbon Dioxide 23 (22-30) mmol/L Anion Gap 10.5 (5-15) MEQ/L BUN 58 H (7-17) mg/dL Creatinine 2.20 H (0.52-1.04) mg/dL Estimated GFR 22.3 ML/MIN Glucose 87 (74-106) mg/dL POC Glucometer 40 L* (74 to 106) mg/dL Calcium 6.7 L (8.4-10.2) mg/dL Total Bilirubin 0.30 (0.2-1.3) mg/dL AST 68 H (14-36) U/L ALT 48 H (0-35) U/L Alkaline Phosphatase 76 (38-126) U/L Serum Total Protein 6.3 (6.3-8.2) g/dL Albumin 3.3 L (3.5-5.0) g/dL 07/19/24 07/19/24 07/19/24 Range/Units 07:39 07:47 08:29 WBC (3.98-10.04) x10^3/uL RBC (3.93-5.22) x10^6/uL Hgb (11.2-15.7) g/dL Hct (34.1-44.9) % MCV (79.4-94.8) fL MCH (25.6-32.2) pg MCHC (32.2-35.5) g/dL RDW (11.7-14.4) % Plt Count (182-369) x10^3/uL MPV (9.4-12.3) fL Sodium (135-145) mmol/L Potassium (3.5-5.1) mmol/L Chloride (98-107) mmol/L Carbon Dioxide (22-30) mmol/L Anion Gap (5-15) MEQ/L BUN (7-17) mg/dL Creatinine (0.52-1.04) mg/dL Estimated GFR ML/MIN Glucose 46 L* (74-106) mg/dL POC Glucometer 42 L* 116 H (74 to 106) mg/dL Calcium (8.4-10.2) mg/dL Total Bilirubin (0.2-1.3) mg/dL AST (14-36) U/L ALT (0-35) U/L Alkaline Phosphatase (38-126) U/L Serum Total Protein (6.3-8.2) g/dL Albumin (3.5-5.0) g/dL 07/19/24 07/19/24 Range/Units 09:15 11:25 WBC (3.98-10.04) x10^3/uL RBC (3.93-5.22) x10^6/uL Hgb (11.2-15.7) g/dL Hct (34.1-44.9) % MCV (79.4-94.8) fL MCH (25.6-32.2) pg MCHC (32.2-35.5) g/dL RDW (11.7-14.4) % Plt Count (182-369) x10^3/uL MPV (9.4-12.3) fL Sodium (135-145) mmol/L Potassium (3.5-5.1) mmol/L Chloride (98-107) mmol/L Carbon Dioxide (22-30) mmol/L Anion Gap (5-15) MEQ/L BUN (7-17) mg/dL Creatinine (0.52-1.04) mg/dL Estimated GFR ML/MIN Glucose (74-106) mg/dL POC Glucometer 97 129 H (74 to 106) mg/dL Calcium (8.4-10.2) mg/dL Total Bilirubin (0.2-1.3) mg/dL AST (14-36) U/L ALT (0-35) U/L Alkaline Phosphatase (38-126) U/L Serum Total Protein (6.3-8.2) g/dL Albumin (3.5-5.0) g/dL Micro Results-Entire Visit: Microbiology 07/17/24 06:30 Blood Culture - Preliminary Blood Accuchecks Date 07/19/24 Date 07/19/24 Date 07/19/24 Date 07/18/24 Date 07/18/24 - Radiology Exams Ordered Rad Exams-Entire Visit: Radiology Procedures Category Date Time Status VENOUS UNILAT/LIMITED EXTREMIT [US] Routine Exams 07/18/24 12:50 Completed - Procedures and Test Procedures and Tests throughout Hospitalization: Therapy Orders & Screens 07/17/24 14:16 PT Eval & Treat ( Order) ONCE Reason for Eval:: weakness Diagnosis: shortness of breath, symptomatic anema, weakness, TIM 07/18/24 05:43 Oxygen Nasal Cannula 2 lpm Comment: Diagnosis: shortness of breath, symptomatic anema, weakness, TIM 07/18/24 07:00 Respiratory Therapy Assessment DAILY Comment: Diagnosis: shortness of breath, symptomatic anema, weakness, TIM Discharge Exam General Appearance: no apparent distress, alert Neurologic Exam: alert, oriented x 3, cooperative, normal mood/affect, nml cerebellar function, sensation nml, motor weakness, No motor deficits Eye Exam: PERRL, EOMI, eyes nml inspection Ears, Nose, Throat Exam: normal ENT inspection, pharynx normal, moist mucous membranes Neck Exam: normal inspection, non-tender, supple, full range of motion Respiratory Exam: normal breath sounds, lungs clear, No respiratory distress Cardiovascular Exam: regular rate/rhythm, normal heart sounds Gastrointestinal/Abdomen Exam: soft, No tenderness, No mass Pelvic Exam: deferred Rectal Exam: deferred Back Exam: normal inspection, normal range of motion, No CVA tenderness, No vertebral tenderness Extremity Exam: normal inspection, normal range of motion, swelling (R arm) Skin Exam: warm, dry, pale Final Diagnosis/Problem List - Final Discharge Diagnosis/Problem (1) Iron deficiency anemia Current Visit: Yes Status: Chronic Code(s): D50.9 - IRON DEFICIENCY ANEMIA, UNSPECIFIED (2) Acute on chronic renal failure Current Visit: Yes Status: Acute Code(s): N17.9 - ACUTE KIDNEY FAILURE, UNSPECIFIED; N18.9 - CHRONIC KIDNEY DISEASE, UNSPECIFIED (3) Generalized weakness Current Visit: Yes Status: Acute Code(s): R53.1 - WEAKNESS (4) Shortness of breath Current Visit: Yes Status: Resolved Code(s): R06.02 - SHORTNESS OF BREATH (5) COPD (chronic obstructive pulmonary disease) Current Visit: No Status: Chronic (6) DM II (diabetes mellitus, type II), controlled Current Visit: No Status: Chronic Code(s): E11.9 - TYPE 2 DIABETES MELLITUS WITHOUT COMPLICATIONS (7) Hypocalcemia Current Visit: No Status: Chronic Code(s): E83.51 - HYPOCALCEMIA (8) Atrial fibrillation Current Visit: No Status: Chronic Code(s): I48.91 - UNSPECIFIED ATRIAL FIBRILLATION (9) HTN (hypertension) Current Visit: No Status: Chronic Code(s): I10 - ESSENTIAL (PRIMARY) HYPERTENSION (10) Hypothyroidism Current Visit: No Status: Chronic Code(s): E03.9 - HYPOTHYROIDISM, UNSPECIFIED (11) 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 Current Visit: No Status: Chronic Code(s): Z79.01 - DETENTION (CURRENT) USE OF ANTICOAGULANTS (12) Edema of right upper extremity Current Visit: Yes Status: Acute Code(s): R60.0 - LOCALIZED EDEMA (13) Vitamin D deficiency Current Visit: Yes Status: Chronic Code(s): E55.9 - VITAMIN D DEFICIENCY, UNSPECIFIED (14) Hypoglycemia Current Visit: Yes Status: Acute Assessment & Plan: (1) Iron deficiency anemia Current Visit: Yes Status: Chronic Assessment & Plan: - with CKD - continue ferrous sulfate - Hgb 8.4- trend - CBC reviewed 07/18 - Hgb 7.8 - CBC reviewed 07/19 - Hgb 8.2- stable - CBC reviewed Code(s): D50.9 - IRON DEFICIENCY ANEMIA, UNSPECIFIED (2) Acute on chronic renal failure Current Visit: Yes Status: Acute Assessment & Plan: - Creat 2.94- baseline 2.02 - lasix held - NS @ 50 ml/hr - CMP reviewed 07/18 - Creat 2.22- improving - cont IVF - CMP reviewed 07/19 - creat 2.20- improving - recheck OP- f/u with nephrology Code(s): N17.9 - ACUTE KIDNEY FAILURE, UNSPECIFIED; N18.9 - CHRONIC KIDNEY DISEASE, UNSPECIFIED (3) Generalized weakness Current Visit: Yes Status: Acute Code(s): R53.1 - WEAKNESS - PT eval (4) Shortness of breath Current Visit: Yes Status: Resolved Assessment & Plan: - RA 96 % - increased with activity - Tele - likely 2:2 anemia - also has a hx of COPD - CXR: Portable apical lordotic chest demonstrates new left mid lung subcentimeter atelectasis/scarring. Remaining lungs now clear. Heart borderline enlarged again with cardiac valve replacement surgery. Bony thorax intact again with osteopenia and mild degenerative changes. Impression: Nonacute chest with chronic features. Code(s): R06.02 - SHORTNESS OF BREATH (5) COPD (chronic obstructive pulmonary disease) Current Visit: No Status: Chronic Assessment & Plan: - not in acute exacerbation (6) DM II (diabetes mellitus, type II), controlled Current Visit: No Status: Chronic Qualifiers: Diabetes mellitus alf insulin use: with termite exterminator helper use Diabetes mellitus complication status: with kidney complications Diabetes mellitus complication detail: with chronic kidney disease Assessment & Plan: - A1C 7.21 - Continue home insulin management - accuchecks changed to Q4 evening of 07/17 07/18 - Continue accuchecks q4 - Continue hypoglycemia protocol - Consider fluids with dextrose 07/19 - glucose low this AM - OP f/u with endocrinology Code(s): E11.9 - TYPE 2 DIABETES MELLITUS WITHOUT COMPLICATIONS (7) Hypocalcemia Current Visit: No Status: Chronic Assessment & Plan: - Ca+ 6.0 - Continue calcium carb Q8 - hx of Vit D def. - will recheck VIt D in AM- consider restarting replacement - Mg+ 1.8 - CKD 07/18 - VIt D replacement daily PO - Ca+ 5.2- replaced- trend 07/19 - Corrected Ca+ 6.9- replaced - OP f/u with endocrinology Code(s): E83.51 - HYPOCALCEMIA (8) Atrial fibrillation Current Visit: No Status: Chronic Assessment & Plan: - Continue Eliquis, coreg - tele Code(s): I48.91 - UNSPECIFIED ATRIAL FIBRILLATION (9) HTN (hypertension) Current Visit: No Status: Chronic Assessment & Plan: - BP stable - Continue home meds Code(s): I10 - ESSENTIAL (PRIMARY) HYPERTENSION (10) Hypothyroidism Current Visit: No Status: Chronic Assessment & Plan: - Continue synthroid - TSH in AM 07/18 - TSH 8.6- will need OP f/U with PCP/ endocrinology Code(s): E03.9 - HYPOTHYROIDISM, UNSPECIFIED (11) 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 Code(s): R60.0 - LOCALIZED EDEMA (13) Vitamin D deficiency Current Visit: Yes Status: Chronic Assessment & Plan: - daily replacement Code(s): E55.9 - VITAMIN D DEFICIENCY, UNSPECIFIED (14) Hypoglycemia Current Visit: Yes Status: Acute Assessment & Plan: - hypoglycemia protocol - stop all insulin - accuchecks Q4 07/19 - d/c with s/s only Code(s): E16.2 - HYPOGLYCEMIA, UNSPECIFIED Code(s): E16.2 - HYPOGLYCEMIA, UNSPECIFIED - Discharge Discharge Date: 07/19/24 Disposition: DC TO ANY "OTHER" LONG-TERM Condition: Fair Prescriptions: New Calcium Carbonate 750 mg [Tums EX 750 MG] 750 mg PO QID 30 Days #120 tablet Insulin Lispro [Humalog] See Protocol SQ ACHS PRN 30 Days #1000 units MDD 48 units PRN Reason: Hyperglycemia Continue Apixaban [Eliquis 5 mg Tablet] 5 mg PO BID Folic Acid 1 mg [Folate 1 mg] 1 mg PO DAILY Ferrous Sulfate 325 mg [Feosol 325 mg] 325 mg PO BID Famotidine 20 mg [Pepcid 20 MG] 20 mg PO BID Levothyroxine Sodium 100 Mcg [Synthroid 100 Mcg] 200 mcg PO BREAKFAST Glucagon 1 mg [GlucaGen 1 MG] 1 mg IM UD PRN PRN Reason: Hypoglycemia Cyanocobalamin 500 Mcg [Vitamin B-12 500 MCG] 1,000 mcg PO DAILY Montelukast Sodium 10 mg [Singulair 10 MG] 10 mg PO DAILY Cetirizine HCl 10 mg PO DAILY Levothyroxine Sodium 25 mcg PO HS Fluticasone Propion/Salmeterol [Advair 100-50 Diskus] 1 puff IH BID Carvedilol 12.5 mg [Coreg 12.5 mg] 12.5 mg PO BID Buspirone HCl 10 mg PO BID Losartan Potassium 12.5 mg PO DAILY Furosemide 40 mg [Lasix 40 MG] 40 mg PO DAILY Amlodipine Besylate 5 mg [Norvasc 5 mg] 2.5 mg PO DAILY Melatonin 3 mg PO HS calcitrioL [Calcitriol] 0.5 mcg PO DAILY Calcium Carbonate [Calcium] 750 mg PO DAILY L. Acidophilus/L.bulgaricus [Lactobacillus Tablet] 1 tab PO DAILY Loperamide HCl 2 mg [Imodium 2 mg] 1 cap PO UD PRN PRN Reason: Diarrhea Blood-Glucose Sensor [Dexcom G6 Sensor] 1 ea TRANSTRAC Q12H PRN PRN PRN Reason: Hyperglycemia Cranberry Fruit Extract [Cranberry] 300 mg PO BID Menthol [Biofreeze] 1 dose TOP BID Tamsulosin HCl 0.4 mg [Flomax 0.4 MG] 0.4 mg PO QHS Pregabalin 50 mg [Lyrica 50MG] 50 mg PO DAILY Dronedarone Hydrochloride 400* [Multaq 400 MG] 400 mg PO BID Cholecalciferol (Vitamin D3) [Vitamin D] 50,000 units PO UD Discontinued Insulin Lispro [Humalog] 12 unit SQ LUNCH Insulin Glargine [Lantus Insulin] 30 unit SQ HS Insulin Lispro [Humalog] 16 unit SQ BREAKFAST Insulin Lispro [Humalog] 14 unit SQ DINNER Calcium Carbonate 750 mg [Tums EX 750 MG] 750 mg PO Q8HPRN PRN PRN Reason: Indigestion Follow up with: JOE GEORGE MD [Primary Care Provider] -
[2024-07-19] MEDS: Tums EX 750 MG PO SCH (13:38)
[2024-07-22] MEDS ORDERED: VITAMIN D2 PO SCH (10:00)
== END 2024-07-19 13:56 ==
LOC: ED 02:50 → MED SURG 10:55
PROVIDERS: ADMIT Internal Medicine; ATTEND Internal Medicine
DX: D50.9 Iron deficiency anemia, unspecified (principal); N17.9 Acute kidney failure, unspecified; I12.9 Hypertensive chronic kidney disease with stage 1 through stage 4 chronic kidney disease, or unspecified chronic kidney disease; E11.22 Type 2 diabetes mellitus with diabetic chronic kidney disease; N18.9 Chronic kidney disease, unspecified; I50.9 Heart failure, unspecified; R53.1 Weakness; R06.02 Shortness of breath; J44.9 Chronic obstructive pulmonary disease, unspecified; I48.91 Unspecified atrial fibrillation; E03.9 Hypothyroidism, unspecified; Z79.01 Long term (current) use of anticoagulants; R60.0 Localized edema; E55.9 Vitamin D deficiency, unspecified; E11.649 Type 2 diabetes mellitus with hypoglycemia without coma; I25.2 Old myocardial infarction; Z79.899 Other long term (current) drug therapy; Z85.3 Personal history of malignant neoplasm of breast
CPT/HCPCS: 0241U; 36140; 36415; 71045; 80053; 82306; 82310; 82947; 83036; 83605; 83735; 83880; 84443; 84484; 85025; 85027; 86308; 86850; 86900; 86901; 87040; 93005; 93041; 93268; 93971; 94760; 96374; 97161; 99285; G0378; Q3014; J0612; J1610; J1817; A9270-GY

== ENCOUNTER 2024-07-21 09:06 | Observation (INO) | payer MEDICARE, OTHER ==
[2024-07-21] MEDS ORDERED: DUONEB 0.5-3 MG/3 ml Neb IH ONE (09:27)
--- NOTE | 2024-07-21 09:31 | ERPHSYRPT ---
- History of Present Illness Time Seen by Provider: 07/21/24 09:07 Source: patient, EMS Exam Limitations: no limitations Patient Subjective Stated Complaint: shortness of breath Triage Nursing Assessment: Pt brought to the ER by EMS, hypertensive, denies pain, pulses normal, nola upper and lower ext edema, wheezing, denies chest pain, skin n/w/d, placed on 3L NC at [facility], pt does not normally wear oxygen, laying comfortably in the bed Physician History: 79-year-old female with history of hypertension, atrial fibrillation on Eliquis, hyperlipidemia, diabetes mellitus, congestive heart failure, resident of long-term is brought in the ER by EMS with increasing shortness of breath since she woke up. Patient also reports having increased swelling in upper and lower extremities. Patient was desatting and placed on 3 L oxygen with saturation in upper 90s. Patient has audible wheezes on presentation. She has 2+ pitting edema in lower extremities. Denies any chest pain or palpitations. No fever or chills reported. Allergies/Adverse Reactions: albuterol Allergy (Intermediate, Verified 07/21/24 12:36) Swelling of Tongue and Lips propranolol [From Inderal LA] Allergy (Intermediate, Verified 07/21/24 12:36) red face and ears levofloxacin [From Levaquin] Allergy (Unknown, Verified 07/21/24 12:36) clonazepam [From Klonopin] Allergy (Verified 07/21/24 12:36) Tightness of Throat tongue swollen dronedarone [From Multaq] Allergy (Verified 07/21/24 12:36) Itching PATIENT DENIES THIS ALLERGY 07/18/24 EKING RN metoclopramide [From Reglan] Allergy (Verified 07/21/24 12:36) propranolol HCl [From Inderal LA] Allergy (Verified 07/21/24 12:36) Swelling of Tongue and Lips red face and ears [id number] Reductase Inhibitor Allergy (Verified 07/21/24 12:36) Wheezing Sulfa (Sulfonamide Antibiotics) Allergy (Verified 07/21/24 12:36) Swelling of Tongue and Lips throat swell,ears red terfenadine Allergy (Verified 07/21/24 12:36) venom-honey bee [bee venom (honey bee)] Allergy (Verified 07/21/24 12:36) Hives large hives wheat Allergy (Verified 07/21/24 12:36) zanamivir [From Relenza Diskhaler] Allergy (Verified 07/21/24 12:36) Swelling of Tongue and Lips throat tightness cilostazol [From Pletal] Adverse Reaction (Severe, Verified 07/21/24 12:36) Swelling of Tongue and Lips ticagrelor [From Brilinta] Adverse Reaction (Severe, Verified 07/21/24 12:36) Swelling of Tongue and Lips Home Medications: Apixaban [Eliquis 5 mg Tablet] 5 mg PO BID 07/16/22 [History] Ferrous Sulfate 325 mg [Feosol 325 mg] 325 mg PO BID 08/31/22 [History] Folic Acid 1 mg [Folate 1 mg] 1 mg PO DAILY 08/31/22 [History] Famotidine 20 mg [Pepcid 20 MG] 20 mg PO BID 10/27/23 [History] Cetirizine HCl 10 mg PO DAILY 11/15/23 [History] Cyanocobalamin 500 Mcg [Vitamin B-12 500 MCG] 1,000 mcg PO DAILY 11/15/23 [History] Glucagon 1 mg [GlucaGen 1 MG] 1 mg IM UD PRN 11/15/23 [History] Levothyroxine Sodium 100 Mcg [Synthroid 100 Mcg] 200 mcg PO BREAKFAST 11/15/23 [History] Montelukast Sodium 10 mg [Singulair 10 MG] 10 mg PO DAILY 11/15/23 [History] Levothyroxine Sodium 25 mcg PO HS 11/28/23 [History] Amlodipine Besylate 5 mg [Norvasc 5 mg] 2.5 mg PO DAILY 02/16/24 [History] Buspirone HCl 10 mg PO BID 02/16/24 [History] Carvedilol 12.5 mg [Coreg 12.5 mg] 12.5 mg PO BID 02/16/24 [History] Fluticasone Propion/Salmeterol [Advair 100-50 Diskus] 1 puff IH BID 02/16/24 [History] Furosemide 40 mg [Lasix 40 MG] 40 mg PO DAILY 02/16/24 [History] Losartan Potassium 12.5 mg PO DAILY 02/16/24 [History] Melatonin 3 mg PO HS 02/16/24 [History] Cholecalciferol (Vitamin D3) [Vitamin D] 50,000 units PO UD 07/17/24 [History] Cranberry Fruit Extract [Cranberry] 300 mg PO BID 07/17/24 [History] Dronedarone Hydrochloride 400* [Multaq 400 MG] 400 mg PO BID 07/17/24 [History] L. Acidophilus/L.bulgaricus [Lactobacillus Tablet] 1 tab PO DAILY 07/17/24 [History] Loperamide HCl 2 mg [Imodium 2 mg] 1 cap PO UD PRN 07/17/24 [History] Menthol [Biofreeze] 1 dose TOP BID 07/17/24 [History] Pregabalin 50 mg [Lyrica 50MG] 50 mg PO DAILY 07/17/24 [History] Tamsulosin HCl 0.4 mg [Flomax 0.4 MG] 0.4 mg PO QHS 07/17/24 [History] calcitrioL [Calcitriol] 0.5 mcg PO DAILY 07/17/24 [History] Hx Tetanus, Diphtheria Vaccination/Date Given: Yes Hx Influenza Vaccination/Date Given: Yes Hx Pneumococcal Vaccination/Date Given: Yes Travel Risk - International Travel Have you traveled outside of the country in past 3 weeks: No - Emerging Infectious Disease Are you exhibiting symptoms associated with any current EIDs: Yes Symptoms: Shortness of Breath - Review of Systems Constitutional: No Symptoms Eyes: No Symptoms Ears, Nose, & Throat: No Symptoms Respiratory: Dyspnea, Dyspnea on Exertion ([place]), Wheezing Cardiac: Edema Abdominal/Gastrointestinal: No Symptoms Genitourinary Symptoms: No Symptoms Musculoskeletal: Arthralgias Skin: No Symptoms Neurological: No Symptoms Psychological: No Symptoms Hematologic/Lymphatic: Easy Bleeding Immunological/Allergic: No Symptoms - Past Medical History Pertinent Past Medical History: Yes Neurological History: TIA, Peripheral Neuropathy ENT History: Other Cardiac History: Arrhythmia, Congestive Heart Failure, High Cholesterol, Hypertension, Myocardial Infarction ([place]) Respiratory History: CHF, COPD Endocrine Medical History: Diabetes Type II, Hypothyroidism Musculoskeletal History: No Pertinent History GI Medical History: Other, GERD History: No Pertinent History Psycho-Social History: Anxiety Female Reproductive Disorders: Breast Cancer Other Medical History: right eye retinal scratch - Past Surgical History Past Surgical History: Yes Neuro Surgical History: No Pertinent History Cardiac: Other Respiratory: No Pertinent History Gastrointestinal: Hernia Repair Genitourinary: No Pertinent History Musculoskeletal: No Pertinent History Female Surgical History: Mastectomy, Lumpectomy Other Surgical History: left mastectomy 1993, right lumpectomy, right thyroid removed, left thyroid removed with goiter, pubic mass, left knee scope, valve replacement Significant Family History: no pertinent family hx - Social History Smoking Status: Never smoker Exposure to second hand smoke: No Drug Use: none Patient Lives Alone: Yes - Social Determinants of Health Will the patient participate in the screening: Yes Do you worry about a steady place to live?: No Do you have any problems with any of the following?: No known problems In the past 12 months,have you had to go without utilities?: No Transportation Issues: No Has anyone in your support network made you feel unsafe?: No Have you or anyone in your house had to go without enough: No - Nursing Vital Signs Nursing Vital Signs: Initial Vital Signs Temperature 98.3 F 07/21/24 09:07 Pulse Rate 67 07/21/24 09:07 Respiratory Rate 17 07/21/24 09:07 Blood Pressure 174/77 07/21/24 09:07 O2 Sat by Pulse Oximetry 97 07/21/24 09:07 Pain Scale Pain Intensity 4 - Physical Exam General Appearance: no apparent distress Eye Exam: eyes nml inspection Ears, Nose, Throat Exam: hearing grossly normal Neck Exam: normal inspection, supple, full range of motion Respiratory Exam: diminished breath sounds, rhonchi, wheezing Cardiovascular/Chest Exam: normal heart sounds, regular rate/rhythm, edema (2+ pitting edema) Abdominal/Gastrointestinal Exam: soft, normal bowel sounds, No tenderness Extremity Exam: non-tender, normal range of motion Neurologic Exam: alert, oriented x 3, cooperative, supervisor cold rolling II-XII nml as tested Skin Exam: normal color SpO2 Interpretation: O2 applied SpO2: 97 O2 Delivery: Nasal Cannula (3 L) Ordered Tests: Active Orders 24 hr Category Date Time Status Corporate Events Director STAT Care 07/21/24 09:09 Active EKG-ER Only STAT Care 07/21/24 09:08 Active IV Insertion STAT Care 07/21/24 09:08 Active Oxygen-ED Only Nasal Cannula 3 lpm Care 07/21/24 09:08 Active CHEST 1 VIEW (PORTABLE) Stat Exams 07/21/24 09:09 Taken BLOOD CULTURE Stat Lab 07/21/24 12:46 Received CBC W DIFF Stat Lab 07/21/24 12:43 Completed CMP Stat Lab 07/21/24 12:43 Completed Lactic Acid Stat Lab 07/21/24 12:45 Completed MAGNESIUM Stat Lab 07/21/24 12:43 Completed NT PRO BNPII Stat Lab 07/21/24 12:43 Completed TROPONIN Q4H Lab 07/21/24 12:43 Completed TROPONIN Q4H Lab 07/21/24 13:15 Ordered TROPONIN Q4H Lab 07/21/24 17:15 Ordered Respiratory Therapy Assessment DAILY RT 07/21/24 11:00 Active Transfer Order Routine Transfer 07/21/24 Ordered Medication Summary Discontinued Medications Generic Name Dose Route Start Last Admin Trade Name Freq PRN Reason Stop Dose Admin Albuterol/Ipratropium 3 ml 07/21/24 09:08 07/21/24 09:34 Ipratropium/Albuterol Sulfate 3 Ml Ampul.Neb IH 07/21/24 09:09 3 ml STAT ONE Administration Albuterol/Ipratropium Confirm 07/21/24 09:27 Ipratropium/Albuterol Sulfate 3 Ml Ampul.Neb Administered 07/21/24 09:28 Dose 3 ml IH .STK-MED ONE Furosemide 40 mg 07/21/24 09:08 07/21/24 11:24 Furosemide 40 Mg/4 Ml Vial IV 07/21/24 09:09 40 mg STAT ONE Administration Furosemide Confirm 07/21/24 11:01 Furosemide 40 Mg/4 Ml Vial Administered 07/21/24 11:02 Dose 40 mg .ROUTE .STK-MED ONE Lab/Rad Data: Laboratory Result Diagrams 07/21/24 12:43 07/21/24 12:43 Laboratory Results 07/21/24 07/21/24 07/21/24 Range/Units 12:45 12:43 12:43 WBC (3.98-10.04) x10^3/uL RBC (3.93-5.22) x10^6/uL Hgb (11.2-15.7) g/dL Hct (34.1-44.9) % MCV (79.4-94.8) fL MCH (25.6-32.2) pg MCHC (32.2-35.5) g/dL RDW (11.7-14.4) % Plt Count (182-369) x10^3/uL MPV (9.4-12.3) fL Gran % (34.0-71.1) % Immature Gran % (Auto) (0.001-0.429) % Nucleat RBC Rel Count (0.00-0.2) % Eos # (Auto) (0.04-0.36) x10^3/uL Immature Gran # (Auto) (0.001-0.031) x10^3u/L Absolute Lymphs (auto) (1.18-3.74) x10^3/uL Absolute Monos (auto) (0.24-0.86) x10^3/uL Absolute Nucleated RBC (0.00-0.012) x10^3u/L Lymphocytes % (19.3-51.7) % Monocytes % (4.7-12.5) % Eosinophils % (0.7-5.8) % Basophils % (0.1-1.2) % Absolute Granulocytes (1.56-6.13) x10^3/uL Basophils # (0.01-0.08) x10^3/uL Sodium (135-145) mmol/L Potassium (3.5-5.1) mmol/L Chloride (98-107) mmol/L Carbon Dioxide (22-30) mmol/L Anion Gap (5-15) MEQ/L BUN (7-17) mg/dL Creatinine (0.52-1.04) mg/dL Estimated GFR ML/MIN Glucose (74-106) mg/dL Lactic Acid 1.3 (0.4-2.0) Calcium (8.4-10.2) mg/dL Magnesium (1.6-2.3) mg/dL Total Bilirubin (0.2-1.3) mg/dL AST (14-36) U/L ALT (0-35) U/L Alkaline Phosphatase (38-126) U/L Troponin I < 0.012 (0.000-0.033) ng/mL NT-Pro-B Natriuret Pep 2100 (<300) pg/mL Serum Total Protein (6.3-8.2) g/dL Albumin (3.5-5.0) g/dL Influenza Type A Ag (NEGATIVE) Influenza Type B Ag (NEGATIVE) RSV (PCR) (NEGATIVE) SARS-CoV-2 (PCR) (NEGATIVE) 07/21/24 07/21/24 07/21/24 Range/Units 12:43 12:43 09:40 WBC 7.6 (3.98-10.04) x10^3/uL RBC 3.18 L (3.93-5.22) x10^6/uL Hgb 9.7 L (11.2-15.7) g/dL Hct 29.6 L (34.1-44.9) % MCV 93.1 (79.4-94.8) fL MCH 30.5 (25.6-32.2) pg MCHC 32.8 (32.2-35.5) g/dL RDW 13.6 (11.7-14.4) % Plt Count 302 (182-369) x10^3/uL MPV 11.2 (9.4-12.3) fL Gran % 72.5 H (34.0-71.1) % Immature Gran % (Auto) 0.3 (0.001-0.429) % Nucleat RBC Rel Count 0.0 (0.00-0.2) % Eos # (Auto) 0.41 H (0.04-0.36) x10^3/uL Immature Gran # (Auto) 0.02 (0.001-0.031) x10^3u/L Absolute Lymphs (auto) 0.96 L (1.18-3.74) x10^3/uL Absolute Monos (auto) 0.66 (0.24-0.86) x10^3/uL Absolute Nucleated RBC 0.00 (0.00-0.012) x10^3u/L Lymphocytes % 12.7 L (19.3-51.7) % Monocytes % 8.7 (4.7-12.5) % Eosinophils % 5.4 (0.7-5.8) % Basophils % 0.4 (0.1-1.2) % Absolute Granulocytes 5.47 (1.56-6.13) x10^3/uL Basophils # 0.03 (0.01-0.08) x10^3/uL Sodium 138 (135-145) mmol/L Potassium 4.4 (3.5-5.1) mmol/L Chloride 105 (98-107) mmol/L Carbon Dioxide 22 (22-30) mmol/L Anion Gap 14.7 (5-15) MEQ/L BUN 39 H (7-17) mg/dL Creatinine 2.12 H (0.52-1.04) mg/dL Estimated GFR 23.3 ML/MIN Glucose 131 H (74-106) mg/dL Lactic Acid (0.4-2.0) Calcium 7.6 L (8.4-10.2) mg/dL Magnesium 1.6 (1.6-2.3) mg/dL Total Bilirubin 0.50 (0.2-1.3) mg/dL AST 37 H (14-36) U/L ALT 41 H (0-35) U/L Alkaline Phosphatase 94 (38-126) U/L Troponin I (0.000-0.033) ng/mL NT-Pro-B Natriuret Pep (<300) pg/mL Serum Total Protein 7.6 (6.3-8.2) g/dL Albumin 4.2 (3.5-5.0) g/dL Influenza Type A Ag NEGATIVE (NEGATIVE) Influenza Type B Ag NEGATIVE (NEGATIVE) RSV (PCR) NEGATIVE (NEGATIVE) SARS-CoV-2 (PCR) NEGATIVE (NEGATIVE) - Progress Progress: improved, re-examined Air Movement: fair Progress Note: 07/21/24 14:17 79-year-old is evaluated in the ER for increasing shortness of breath since morning. Patient was on 3 L on presentation with some wheezing. She is given DuoNeb with improvement of wheezing. Has bilateral lower extremity 2+ pitting edema given a dose of Lasix. Chest x-ray showed some element of congestion/pulmonary edema with no obvious infiltrative process. Has normal white count, chemistries with stable CKD and normal initial troponins. Patient is feeling better on reevaluation. I believe patient needs IV diuresis for CHF exacerbation. Discussed with Patient is being admitted. Blood Culture(s) Obtained: Yes Antibiotics given: No Discussed with DrBrigido: Other (Dr. Roblero Hospitalist) Will see patient in: hospital (observation) Counseled pt/family regarding: lab results, diagnosis, need for follow-up, rad results Medical Desision Making - Independent Historian Additional History obtained from: [facility] nurse, [facility]/EMT - External Record(s) Reviewed Records reviewed as a part of evaluation & management: Inpatient, Discharge Summary - Discussion of managment Care discussed with:: hospitalist (Dr. Cunningham) Reviewed:: Test results Agreed on:: Treatment plan, place in obs Will see patient: in hospital - Diagnostic Testing Diagnostic test were ordered, analyzed, and reviewed by me: Yes Radiological Interpretation: Interpreted by me, Reviewed by me - Risk of complications The pt has a mod risk of morbidity or mortality based on: Need for prescription drug management The pt has a high risk of morbidity or mortality based on: Decision regarding hospitilization or escalation of hosp level of care - Departure Departure Disposition: Observation Clinical Impression: Acute exacerbation of CHF (congestive heart failure) Condition: Stable Critical Care Time: No Referrals: JOE GEORGE MD [Primary Care Provider] - Follow up/PCP as directed Instructions: Heart Failure
[2024-07-21] MEDS: DUONEB 0.5-3 MG/3 ml Neb IH ONE (09:34)
[2024-07-21 10:37] LABS: INFLUENZA A NEGATIVE (NEGATIVE); INFLUENZA B NEGATIVE (NEGATIVE); RESPIRATORY SYNCTIAL VIRUS NEGATIVE (NEGATIVE); SARS-CoV-2 Xpert Express NEGATIVE (NEGATIVE)
[2024-07-21] MEDS ORDERED: Lasix 40 MG/4 ML ONE (11:01)
[2024-07-21] MEDS: Lasix 40 MG/4 ML IV ONE (11:24)
[2024-07-21 12:57] LABS: Absolute Neutrophil Ct (ANC) 5.47 x10^3/uL (1.56-6.13); BASOPHIL % 0.4 % (0.1-1.2); Basophil (Absolute #) 0.03 x10^3/uL (0.01-0.08); Eosinophil % 5.4 % (0.7-5.8); Eosinophil (Absolute #) 0.41 x10^3/uL (0.04-0.36); Hematocrit 29.6 % (34.1-44.9); Hemoglobin 9.7 g/dL (11.2-15.7); IMMATURE GRAN # 0.02 x10^3u/L (0.001-0.031); IMMATURE GRAN % 0.3 % (0.001-0.429); Lymphocyte (Absolute #) 0.96 x10^3/uL (1.18-3.74); Lymphocytes % 12.7 % (19.3-51.7); Mean Cell Volume 93.1 fL (79.4-94.8); Mean Corpuscular Hemoglobin 30.5 pg (25.6-32.2); Mean Corpuscular Hgb Concent. 32.8 g/dL (32.2-35.5); Mean Platelet Volume 11.2 fL (9.4-12.3); Monocyte (Absolute #) 0.66 x10^3/uL (0.24-0.86); Monocytes % 8.7 % (4.7-12.5); Neutrophil % 72.5 % (34.0-71.1); Platelet Count 302 x10^3/uL (182-369); Red Blood Count 3.18 x10^6/uL (3.93-5.22); Red Cell Distribution Width 13.6 % (11.7-14.4); White Blood Count 7.6 x10^3/uL (3.98-10.04)
[2024-07-21 13:04] LABS: ALBUMIN 4.2 g/dL (3.5-5.0); ANION GAP 14.7 MEQ/L (5-15); BILIRUBIN,TOTAL 0.5 mg/dL (0.2-1.3); Calcium 7.6 mg/dL (8.4-10.2); Creatinine 1 2.12 mg/dL (0.52-1.04); EST GLOMERULAR FILTRATION RATE 23.3 ML/MIN; MAGNESIUM 1.6 mg/dL (1.6-2.3); Potassium 4.4 mmol/L (3.5-5.1); Total Protein 7.6 g/dL (6.3-8.2)
--- NOTE | 2024-07-21 15:08 | PCM.HP ---
History of Present Illness - Chief Complaint Chief Complaint: CHF Date: 07/21/24 History of Present Illness: is a 79 year old female with PMHX of uncontrolled hypothyroidism, hypertension, hyperlipidemia, CKD, uncontrolled diabetes, atrial fibrillation on Eliquis, TIAs, peripheral neuropathy, chronic anemia, CHF, COPD, coronary disease, chronic hypocalcemia, gastroesophageal reflux disease, and anxiety. She was recently here and discharged on 07/19. She is a resident of [facility] and brought in the ER by EMS with increasing shortness of breath since she woke up. This is the same reason she came in last visit. She is now room air 99%. She was given duoneb in th ER and states this was helpful but she has an allergy to albuterol. Will start Xoponex PRN. Patient also reports having increased swelling in upper and lower extremities. At last visit she had a swollen right arm from IV infiltration and venous duplex completed and negative for DVT. She has chronic edema of BLLE, will apply TEDS, SCDS, and elevate legs. CXR does not show CHF exacerbation. Lungs are clear and she reports she is no longer SOB. BNP elevated but better than last visit. Will keep pt on same dose of Lasix and change to IV. Plan is to keep overnight and d/c in the AM. - Review of Systems Constitutional: No Fever, No Chills Eyes: No Symptoms Ears, Nose, & Throat: No Symptoms Respiratory: No Cough, No Short Of Breath Cardiac: Edema, No Chest Pain, No Syncope Abdominal/Gastrointestinal: No Abdominal Pain, No Nausea, No Vomiting, No Diarrhea Genitourinary Symptoms: No Dysuria Musculoskeletal: No Back Pain, No Neck Pain Skin: No Rash Neurological: No Dizziness, No Focal Weakness, No Sensory Changes Psychological: No Symptoms Endocrine: No Symptoms Hematologic/Lymphatic: No Symptoms Immunological/Allergic: No Symptoms Medications & Allergies Home Medications: Home Medication List Apixaban [Eliquis 5 mg Tablet] 5 mg PO BID 07/16/22 [History Confirmed 07/21/24] Ferrous Sulfate 325 mg [Feosol 325 mg] 325 mg PO BID 08/31/22 [History Confirmed 07/21/24] Folic Acid 1 mg [Folate 1 mg] 1 mg PO DAILY 08/31/22 [History Confirmed 07/21/24] Famotidine 20 mg [Pepcid 20 MG] 20 mg PO BID 10/27/23 [History Confirmed 07/21/24] Cetirizine HCl 10 mg PO DAILY 11/15/23 [History Confirmed 07/21/24] Cyanocobalamin 500 Mcg [Vitamin B-12 500 MCG] 1,000 mcg PO DAILY 11/15/23 [History Confirmed 07/21/24] Glucagon 1 mg [GlucaGen 1 MG] 1 mg IM UD PRN 11/15/23 [History Confirmed 07/21/24] Levothyroxine Sodium 100 Mcg [Synthroid 100 Mcg] 200 mcg PO BREAKFAST 11/15/23 [History Confirmed 07/21/24] Montelukast Sodium 10 mg [Singulair 10 MG] 10 mg PO DAILY 11/15/23 [History Confirmed 07/21/24] Levothyroxine Sodium 25 mcg PO HS 11/28/23 [History Confirmed 07/21/24] Amlodipine Besylate 5 mg [Norvasc 5 mg] 2.5 mg PO DAILY 02/16/24 [History Confirmed 07/21/24] Buspirone HCl 10 mg PO BID 02/16/24 [History Confirmed 07/21/24] Carvedilol 12.5 mg [Coreg 12.5 mg] 12.5 mg PO BID 02/16/24 [History Confirmed 07/21/24] Fluticasone Propion/Salmeterol [Advair 100-50 Diskus] 1 puff IH BID 02/16/24 [History Confirmed 07/21/24] Furosemide 40 mg [Lasix 40 MG] 40 mg PO DAILY 02/16/24 [History Confirmed 07/21/24] Losartan Potassium 12.5 mg PO DAILY 02/16/24 [History Confirmed 07/21/24] Melatonin 3 mg PO HS 02/16/24 [History Confirmed 07/21/24] Cholecalciferol (Vitamin D3) [Vitamin D] 50,000 units PO UD 07/17/24 [History Confirmed 07/21/24] Cranberry Fruit Extract [Cranberry] 300 mg PO BID 07/17/24 [History Confirmed 07/21/24] Dronedarone Hydrochloride 400* [Multaq 400 MG] 400 mg PO BID 07/17/24 [Hist ory Confirmed 07/21/24] L. Acidophilus/L.bulgaricus [Lactobacillus Tablet] 1 tab PO DAILY 07/17/24 [History Confirmed 07/21/24] Loperamide HCl 2 mg [Imodium 2 mg] 1 cap PO UD PRN 07/17/24 [History Confirmed 07/21/24] Menthol [Biofreeze] 1 dose TOP BID 07/17/24 [History Confirmed 07/21/24] Pregabalin 50 mg [Lyrica 50MG] 50 mg PO DAILY 07/17/24 [History Confirmed 07/21/24] Tamsulosin HCl 0.4 mg [Flomax 0.4 MG] 0.4 mg PO QHS 07/17/24 [History Confirmed 07/21/24] calcitrioL [Calcitriol] 0.5 mcg PO DAILY 07/17/24 [History Confirmed 07/21/24] Calcium Carbonate 750 mg [Tums EX 750 MG] 750 mg PO QID 30 Days #120 tablet 07/19/24 [Rx Confirmed 07/21/24] Insulin Lispro [Humalog] See Protocol SQ ACHS PRN 30 Days #1000 units MDD 48 units 07/19/24 [Rx Confirmed 07/21/24] Acetaminophen 325 mg [Tylenol 325 mg] 325 mg PO Q6H PRN PRN 07/21/24 [History Confirmed 07/21/24] Allergies/Adverse Reactions: Allergies Allergy/AdvReac Type Severity Reaction Status Date / Time albuterol Allergy Intermediate Swelling Verified 07/21/24 12:36 of Tongue and Lips propranolol [From Inderal LA] Allergy Intermediate Verified 07/21/24 12:36 levofloxacin [From Levaquin] Allergy Unknown Verified 07/21/24 12:36 clonazepam [From Klonopin] Allergy Tightness Verified 07/21/24 12:36 of Throat dronedarone [From Multaq] Allergy Itching Verified 07/21/24 12:36 metoclopramide [From Reglan] Allergy Verified 07/21/24 12:36 propranolol HCl Allergy Swelling Verified 07/21/24 12:36 [From Inderal LA] of Tongue and Lips [id number] Reductase Allergy Wheezing Verified 07/21/24 12:36 Inhibitor Sulfa (Sulfonamide Allergy Swelling Verified 07/21/24 12:36 Antibiotics) of Tongue and Lips terfenadine Allergy Verified 07/21/24 12:36 venom-honey bee Allergy Hives Verified 07/21/24 12:36 [bee venom (honey bee)] wheat Allergy Verified 07/21/24 12:36 zanamivir Allergy Swelling Verified 07/21/24 12:36 [From Relenza Diskhaler] of Tongue and Lips cilostazol [From Pletal] AdvReac Severe Swelling Verified 07/21/24 12:36 of Tongue and Lips ticagrelor [From Brilinta] AdvReac Severe Swelling Verified 07/21/24 12:36 of Tongue and Lips - Past Medical History Past Medical History: Yes Neurological History: TIA, Peripheral Neuropathy ENT History: Other Cardiac History: Arrhythmia, Congestive Heart Failure, High Cholesterol, H ypertension, Myocardial Infarction (MS) Respiratory History: CHF, COPD Endocrine Medical History: Diabetes Type II, Hypothyroidism Musculoskelatal History: No Pertinent History GI Medical History: Other, GERD History: No Pertinent History Pyscho-Social History: Anxiety Reproductive Disorders: Breast Cancer Comment: right eye retinal scratch - Past Surgical History Past Surgical History: Yes Neuro Surgical History: No Pertinent History Cardiac History: Other Respiratory Surgery: No Pertinent History GI Surgical History: Hernia Repair Genitourinary Surgical Hx: No Pertinent History Musculskeletal Surgical Hx: No Pertinent History Female Surgical History: Mastectomy, Lumpectomy Other Surgical History: left mastectomy 1993, right lumpectomy, right thyroid removed, left thyroid removed with goiter, pubic mass, left knee scope, valve replacement Significant Family History: no pertinent family hx - Social History Smoking Status: Never smoker Exposure to second hand smoke: No Alcohol: None Drug Use: none - Social Determinants of Health Will the patient participate in the screening: Yes Do you worry about a steady place to live?: No Do you have any problems with any of the following?: No known problems In the past 12 months,have you had to go without utilities?: No Have you or anyone in your house had to go without enough: No Transportation Issues: No Has anyone in your support network made you feel unsafe?: No Does the patient want assistance with any of the above?: No Comment: NH pt - Physical Exam Vital Signs: Vital Signs - 24 hr Temp Pulse Resp BP BP Pulse Ox 07/21/24 14:50 62 17 96 07/21/24 14:40 59 L 16 97 07/21/24 14:30 61 17 97 07/21/24 14:20 64 18 96 07/21/24 14:19 97 07/21/24 14:10 63 21 98 07/21/24 14:00 61 29 H 98 07/21/24 13:50 60 17 97 07/21/24 13:40 60 18 98 07/21/24 13:30 62 17 97 07/21/24 13:20 63 18 98 07/21/24 13:10 64 19 98 07/21/24 13:03 64 17 98 07/21/24 12:30 64 17 171/80 99 07/21/24 12:00 67 20 165/71 98 07/21/24 11:30 65 27 H 148/71 98 07/21/24 11:18 65 20 143/72 98 07/21/24 11:00 62 16 144/58 99 07/21/24 09:07 98.3 F 67 20 174/77 97 General Appearance: no apparent distress, alert Neurologic Exam: alert, oriented x 3, cooperative, normal mood/affect, nml cerebellar function, nml station & gait, sensation nml, No motor deficits Eye Exam: PERRL/EOMI, eyes nml inspection Ears, Nose, Throat Exam: normal ENT inspection, TMs normal, pharynx normal, moist mucous membranes Neck Exam: normal inspection, non-tender, supple, full range of motion Respiratory Exam: normal breath sounds, lungs clear, No respiratory distress Cardiovascular Exam: regular rate/rhythm, normal heart sounds, normal peripheral pulses Gastrointestinal/Abdomen Exam: soft, normal bowel sounds, No tenderness, No mass Back Exam: normal inspection, normal range of motion, No CVA tenderness, No vertebral tenderness Extremity Exam: normal inspection, normal range of motion, pelvis stable Skin Exam: normal color, warm, dry, No rash Lymphatic Exam: No adenopathy Results - Labs Lab/Micro Results: Lab Results-Last 24 Hours 07/21/24 07/21/24 07/21/24 Range/Units 09:40 12:43 12:43 WBC 7.6 (3.98-10.04) x10^3/uL RBC 3.18 L (3.93-5.22) x10^6/uL Hgb 9.7 L (11.2-15.7) g/dL Hct 29.6 L (34.1-44.9) % MCV 93.1 (79.4-94.8) fL MCH 30.5 (25.6-32.2) pg MCHC 32.8 (32.2-35.5) g/dL RDW 13.6 (11.7-14.4) % Plt Count 302 (182-369) x10^3/uL MPV 11.2 (9.4-12.3) fL Gran % 72.5 H (34.0-71.1) % Immature Gran % (Auto) 0.3 (0.001-0.429) % Nucleat RBC Rel Count 0.0 (0.00-0.2) % Eos # (Auto) 0.41 H (0.04-0.36) x10^3/uL Immature Gran # (Auto) 0.02 (0.001-0.031) x10^3u/L Absolute Lymphs (auto) 0.96 L (1.18-3.74) x10^3/uL Absolute Monos (auto) 0.66 (0.24-0.86) x10^3/uL Absolute Nucleated RBC 0.00 (0.00-0.012) x10^3u/L Lymphocytes % 12.7 L (19.3-51.7) % Monocytes % 8.7 (4.7-12.5) % Eosinophils % 5.4 (0.7-5.8) % Basophils % 0.4 (0.1-1.2) % Absolute Granulocytes 5.47 (1.56-6.13) x10^3/uL Basophils # 0.03 (0.01-0.08) x10^3/uL Sodium 138 (135-145) mmol/L Potassium 4.4 (3.5-5.1) mmol/L Chloride 105 (98-107) mmol/L Carbon Dioxide 22 (22-30) mmol/L Anion Gap 14.7 (5-15) MEQ/L BUN 39 H (7-17) mg/dL Creatinine 2.12 H (0.52-1.04) mg/dL Estimated GFR 23.3 ML/MIN Glucose 131 H (74-106) mg/dL Lactic Acid (0.4-2.0) Calcium 7.6 L (8.4-10.2) mg/dL Magnesium 1.6 (1.6-2.3) mg/dL Total Bilirubin 0.50 (0.2-1.3) mg/dL AST 37 H (14-36) U/L ALT 41 H (0-35) U/L Alkaline Phosphatase 94 (38-126) U/L Troponin I (0.000-0.033) ng/mL NT-Pro-B Natriuret Pep (<300) pg/mL Serum Total Protein 7.6 (6.3-8.2) g/dL Albumin 4.2 (3.5-5.0) g/dL Influenza Type A Ag NEGATIVE (NEGATIVE) Influenza Type B Ag NEGATIVE (NEGATIVE) RSV (PCR) NEGATIVE (NEGATIVE) SARS-CoV-2 (PCR) NEGATIVE (NEGATIVE) 07/21/24 07/21/24 07/21/24 Range/Units 12:43 12:43 12:45 WBC (3.98-10.04) x10^3/uL RBC (3.93-5.22) x10^6/uL Hgb (11.2-15.7) g/dL Hct (34.1-44.9) % MCV (79.4-94.8) fL MCH (25.6-32.2) pg MCHC (32.2-35.5) g/dL RDW (11.7-14.4) % Plt Count (182-369) x10^3/uL MPV (9.4-12.3) fL Gran % (34.0-71.1) % Immature Gran % (Auto) (0.001-0.429) % Nucleat RBC Rel Count (0.00-0.2) % Eos # (Auto) (0.04-0.36) x10^3/uL Immature Gran # (Auto) (0.001-0.031) x10^3u/L Absolute Lymphs (auto) (1.18-3.74) x10^3/uL Absolute Monos (auto) (0.24-0.86) x10^3/uL Absolute Nucleated RBC (0.00-0.012) x10^3u/L Lymphocytes % (19.3-51.7) % Monocytes % (4.7-12.5) % Eosinophils % (0.7-5.8) % Basophils % (0.1-1.2) % Absolute Granulocytes (1.56-6.13) x10^3/uL Basophils # (0.01-0.08) x10^3/uL Sodium (135-145) mmol/L Potassium (3.5-5.1) mmol/L Chloride (98-107) mmol/L Carbon Dioxide (22-30) mmol/L Anion Gap (5-15) MEQ/L BUN (7-17) mg/dL Creatinine (0.52-1.04) mg/dL Estimated GFR ML/MIN Glucose (74-106) mg/dL Lactic Acid 1.3 (0.4-2.0) Calcium (8.4-10.2) mg/dL Magnesium (1.6-2.3) mg/dL Total Bilirubin (0.2-1.3) mg/dL AST (14-36) U/L ALT (0-35) U/L Alkaline Phosphatase (38-126) U/L Troponin I < 0.012 (0.000-0.033) ng/mL NT-Pro-B Natriuret Pep 2100 (<300) pg/mL Serum Total Protein (6.3-8.2) g/dL Albumin (3.5-5.0) g/dL Influenza Type A Ag (NEGATIVE) Influenza Type B Ag (NEGATIVE) RSV (PCR) (NEGATIVE) SARS-CoV-2 (PCR) (NEGATIVE) - Radiology Impressions Radiology Exams & Impressions: Radiology Procedures Category Date Time Status CHEST 1 VIEW (PORTABLE) Stat Exams 07/21/24 09:09 Taken - Other Procedures and Tests Respiratory Therapy 07/21/24 11:00 Respiratory Therapy Assessment DAILY Assessment/Plan (1) CHF (congestive heart failure) Current Visit: Yes Status: Chronic Assessment & Plan: - CXR negative for CHF exacerbation. - BNP 2100- better than previous visit results - Lasix 40 IV daily - MARY ELLEN, SCD's, elevate legs - Tele - Room air 99% - Echo 11/16/23- EF 72% IMPRESSION: 1. NORMAL CONTRACTILITY OF THE LEFT VENTRICLE. 2. MILD CONCENTRIC LEFT VENTRICULAR HYPERTROPHY. 3. POSSIBLE IMPAIRED LEFT VENTRICULAR RELAXATION. 4. MILD TRICUSPID REGURGITATION. 5. NORMAL RIGHT VENTRICULAR SYSTOLIC PRESSURE. 6. MITRAL VALVULAR CALCIFICATION. Code(s): I50.9 - HEART FAILURE, UNSPECIFIED (2) Dyspnea Current Visit: Yes Status: Resolved Assessment & Plan: - shekhar gave in ER and pt states it was helpful but she is allergic to albuterol - Breathing treatments if needed changed to Xoponex - Room air 99% - Pt would like breathing treatment options at d/c. Code(s): R06.00 - DYSPNEA, UNSPECIFIED (3) Essential (primary) hypertension Current Visit: No Status: Chronic Assessment & Plan: - Continue home med - Trend BP Code(s): I10 - ESSENTIAL (PRIMARY) HYPERTENSION (4) Hypothyroid Current Visit: No Status: Chronic Assessment & Plan: - Continue synthroid - As discussed last visit need OP f/u with endocrinology Code(s): E03.9 - HYPOTHYROIDISM, UNSPECIFIED (5) Non-compliance Current Visit: No Status: Chronic Assessment & Plan: - Does not take meds as prescribed Code(s): Z91.199 - PT NONCOMPL WITH OTHER MED TRTMT AND REGIMEN D/T UNSP REASON (6) Iron deficiency anemia Current Visit: No Status: Chronic Assessment & Plan: - Continue ferrous sulfate - Monitor HGG Code(s): D50.9 - IRON DEFICIENCY ANEMIA, UNSPECIFIED (7) intermediate (current) use of anticoagulants Current Visit: No Status: Chronic Assessment & Plan: - Continue Eliquis Code(s): Z79.01 - TRIAGE TECHNICIAN (CURRENT) USE OF ANTICOAGULANTS (8) Vitamin D deficiency Current Visit: No Status: Chronic Assessment & Plan: - Continue VIt D replacement Code(s): E55.9 - VITAMIN D DEFICIENCY, UNSPECIFIED (9) Hypocalcemia due to chronic kidney disease Current Visit: Yes Status: Chronic Assessment & Plan: - Continue tums tabs QID - As discussed last visit needs to f/u OP with endocrinology Code(s): E83.51 - HYPOCALCEMIA; N18.9 - CHRONIC KIDNEY DISEASE, UNSPECIFIED (10) Edema of right upper extremity Current Visit: Yes Status: Chronic Assessment & Plan: - was like this at previous visit and VEnous duplex ordered for eval- negative for DVT - Believed to be from midline infiltration - Elevate right arm to heart level Code(s): R60.0 - LOCALIZED EDEMA (11) CKD (chronic kidney disease) Current Visit: Yes Status: Chronic Assessment & Plan: - Creat 2.12 at baseline renal function VTE:Eliquis PPI: famotidine Next of KIN: Child- Letty Dumont D/C plan: tomorrow Code status: Full Code(s): N18.9 - CHRONIC KIDNEY DISEASE, UNSPECIFIED Telemedicine Encounter - Telemedicine Encounter Telemedicine Encounter: "The entirety of this encounter was performed via Telemedicine" This visit was performed using real-time audio and video connection between my location and thepatients locationwith the assistance of a surrogateat the patients location. Written or verbal consent was obtained from the patient/guardian to perform this visit usingsynchronoustelemedicine technology. Any patient questions regarding the telemedicine interaction were answered.
[2024-07-21] MEDS ORDERED: IMODIUM 2 MG PO PRN (15:25)
[2024-07-21] MEDS ORDERED: NON-FORMULARY ITEM (Insulin Lispro 1 UNIT Ml) SQ PRN (15:25)
[2024-07-21] MEDS ORDERED: GlucaGen 1 MG IM PRN (15:25)
[2024-07-21] MEDS ORDERED: VITAMIN D PO SCH (15:30)
[2024-07-21] MEDS ORDERED: Xopenex 1.25 MG/0.5 ML UD NEBULE IH PRN (15:40)
[2024-07-21] MEDS ORDERED: MEDICATION INTERVENTION MC SCH ×2 (15:45→16:00)
[2024-07-21] MEDS ORDERED: Glutose 15 GM ORAL GEL PO PRN (16:33)
[2024-07-21] MEDS ORDERED: D50W 50 ml Abboject IV PRN (16:33)
[2024-07-21] MEDS ORDERED: ADVAIR HFA 45/21 COMMON CANISTER IH SCH (19:00)
[2024-07-21] MEDS: Advair Hfa 115/21 Common canister IH SCH (19:40)
[2024-07-21] MEDS: Tums EX 750 MG PO SCH (21:55)
[2024-07-21] MEDS: ELIQUIS 2.5 MG TABLET PO SCH (21:55)
[2024-07-21] MEDS: BUSPAR 5 MG PO SCH (21:55)
[2024-07-21] MEDS: Multaq 400 MG PO SCH (21:55)
[2024-07-21] MEDS: FEOSOL 325 MG PO SCH (21:55)
[2024-07-21] MEDS: Flomax 0.4 MG PO SCH (21:55)
[2024-07-21] MEDS: HUMALOG SQ PRN (21:56)
[2024-07-21] MEDS: SYNTHROID 25 MCG PO SCH (21:56)
[2024-07-21] MEDS: Pepcid 20 MG PO SCH (21:56)
[2024-07-21] MEDS: COREG 12.5 MG PO SCH (21:56)
[2024-07-21] MEDS ORDERED: MENTHOL TOP SCH (22:00)
[2024-07-21] MEDS ORDERED: CRANBERRY FRUIT EXTRACT 200 MG PO SCH (22:00)
[2024-07-21] MEDS ORDERED: NON-FORMULARY ITEM (Fluticasone Propion/Salmeterol [Advair 100-50 Diskus] 1 EACH Blst.W.De IH SCH (22:00)
[2024-07-21] MEDS ORDERED: NON-FORMULARY ITEM (Apixaban*** [Eliquis 5 Mg Tablet***] 5 MG Tablet) PO SCH (22:00)
[2024-07-21] MEDS ORDERED: NON-FORMULARY ITEM (Levothyroxine Sodium [Levothyroxine Sodium] 25 MCG Capsule) PO SCH (22:00)
[2024-07-21] MEDS: MELATONIN PO SCH (22:05)
--- NOTE | 2024-07-21 23:04 | XRAY ---
Indication: Short of breath. CHF. Comparison: July 17, 2024 Portable apical lordotic unchanged again hyperinflated with left midlung subsegmental atelectasis/scarring. Heart borderline enlarged again with cardiac valve replacement surgery and tortuous descending aorta. No new/acute findings.
[2024-07-22 07:04] VITALS: RESP 16
[2024-07-22 07:07] VITALS: PULSE 75
[2024-07-22] MEDS: SYNTHROID 100 MCG PO SCH (09:07)
[2024-07-22] MEDS ORDERED: NON-FORMULARY ITEM (Calcitriol [Calcitriol] 0.5 MCG Capsule) PO SCH (10:00)
[2024-07-22] MEDS ORDERED: NON-FORMULARY ITEM (Cetirizine Hcl [Cetirizine Hcl] 10 MG Tablet) PO SCH (10:00)
[2024-07-22] MEDS ORDERED: ACIDOPHILUS PO SCH (10:00)
[2024-07-22] MEDS ORDERED: BULGARICUS PO SCH (10:00)
[2024-07-22] MEDS ORDERED: NON-FORMULARY ITEM (Losartan Potassium [Losartan Potassium] 25 MG Tablet) PO SCH (10:00)
[2024-07-22] MEDS ORDERED: Lasix 40 MG PO SCH (10:00)
[2024-07-22] MEDS: FOLATE 1 MG PO SCH (11:37)
[2024-07-22] MEDS: NORVASC 5 MG PO SCH (11:38)
[2024-07-22] MEDS: Acidophilus TABLET PO SCH (11:39)
[2024-07-22] MEDS: Cozaar 50 MG PO SCH (11:39)
[2024-07-22] MEDS: Singulair 10 MG PO SCH (11:40)
[2024-07-22] MEDS: Lyrica 50MG PO SCH (11:40)
[2024-07-22] MEDS: CLARITIN 10 MG PO SCH (11:40)
[2024-07-22] MEDS: Vitamin B-12 500 MCG PO SCH (11:40)
[2024-07-22] MEDS: VITAMIN D2 PO SCH (11:41)
[2024-07-22] MEDS: Lasix 40 MG/4 ML IV SCH (11:49)
[2024-07-22 11:53] VITALS: BP 176/80; TEMP 97.7; O2SAT 95
--- NOTE | 2024-07-22 12:12 | PCM.DS ---
Discharge Summary Date of Admission: 07/21/24 15:03 Date of Discharge: 07/22/24 Admitting Physician: YONAS ZABALA MD Consults: Consults on Case 07/21/24 16:33 Notify Physician ROUTINE Primary Care Provider: ARIEL,JOE Allergies Allergies albuterol Allergy (Intermediate, Verified 07/21/24 12:36) Swelling of Tongue and Lips propranolol [From Inderal LA] Allergy (Intermediate, Verified 07/21/24 12:36) red face and ears levofloxacin [From Levaquin] Allergy (Unknown, Verified 07/21/24 12:36) clonazepam [From Klonopin] Allergy (Verified 07/21/24 12:36) Tightness of Throat tongue swollen dronedarone [From Multaq] Allergy (Verified 07/21/24 12:36) Itching PATIENT DENIES THIS ALLERGY 07/18/24 EKING RN metoclopramide [From Reglan] Allergy (Verified 07/21/24 12:36) propranolol HCl [From Inderal LA] Allergy (Verified 07/21/24 12:36) Swelling of Tongue and Lips red face and ears Ytylslb-CXU-RfF Reductase Inhibitor Allergy (Verified 07/21/24 12:36) Wheezing Sulfa (Sulfonamide Antibiotics) Allergy (Verified 07/21/24 12:36) Swelling of Tongue and Lips throat swell,ears red terfenadine Allergy (Verified 07/21/24 12:36) venom-honey bee [bee venom (honey bee)] Allergy (Verified 07/21/24 12:36) Hives large hives wheat Allergy (Verified 07/21/24 12:36) zanamivir [From Relenza Diskhaler] Allergy (Verified 07/21/24 12:36) Swelling of Tongue and Lips throat tightness cilostazol [From Pletal] Adverse Reaction (Severe, Verified 07/21/24 12:36) Swelling of Tongue and Lips ticagrelor [From Brilinta] Adverse Reaction (Severe, Verified 07/21/24 12:36) Swelling of Tongue and Lips Hospital Summary - Hospital Course Hospital Course: 07/21/24 is a 79 year old female with PMHX of uncontrolled hypothyroidism, hypertension, hyperlipidemia, CKD, uncontrolled diabetes, atrial fibrillation on Eliquis, TIAs, peripheral neuropathy, chronic anemia, CHF, COPD, coronary disease, chronic hypocalcemia, gastroesophageal reflux disease, and anxiety. She was recently here and discharged on 07/19. She is a resident of [facility] and brought in the ER by EMS with increasing shortness of breath since she woke up. This is the same reason she came in last visit. She is now room air 99%. She was given duoneb in th ER and states this was helpful but she has an allergy to albuterol. Will start Xoponex PRN. Patient also reports having increased swelling in upper and lower extremities. At last visit she had a swollen right arm from IV infiltration and venous duplex completed and negative for DVT. She has chronic edema of BLLE, will apply TEDS, SCDS, and elevate legs. CXR does not show CHF exacerbation. Lungs are clear and she reports she is no longer SOB. BNP elevated but better than last visit. Will keep pt on same dose of Lasix and change to IV. Plan is to keep overnight and d/c in the AM. 07/22/24 Pt resting in bed. She refused labs this morning. She is wanting to d/c. She refused TEDS yesterday and today she is agreeable. Continue to elevate RUE to heart level. She denies any further concerns at this time. - Vitals & Intake/Output Vital Signs: Vital Signs Temperature 97.7 F 07/22/24 11:52 Pulse Rate 75 07/22/24 11:52 Respiratory Rate 16 07/22/24 11:52 Blood Pressure 176/80 07/22/24 11:52 O2 Sat by Pulse Oximetry 95 07/22/24 11:52 Intake & Output: Intake & Output 07/20/24 07/21/24 07/22/24 07/23/24 11:59 11:59 11:59 11:59 Intake Total 1300 Output Total 2800 Balance -1500 Weight 81.193 kg 85.8 kg - Lab Result Diagrams: 07/21/24 12:43 07/21/24 12:43 Lab Results-Last 24 Hrs: Lab Results-Last 24 Hours 07/21/24 07/21/24 07/21/24 Range/Units 12:43 12:43 12:43 WBC 7.6 (3.98-10.04) x10^3/uL RBC 3.18 L (3.93-5.22) x10^6/uL Hgb 9.7 L (11.2-15.7) g/dL Hct 29.6 L (34.1-44.9) % MCV 93.1 (79.4-94.8) fL MCH 30.5 (25.6-32.2) pg MCHC 32.8 (32.2-35.5) g/dL RDW 13.6 (11.7-14.4) % Plt Count 302 (182-369) x10^3/uL MPV 11.2 (9.4-12.3) fL Gran % 72.5 H (34.0-71.1) % Immature Gran % (Auto) 0.3 (0.001-0.429) % Nucleat RBC Rel Count 0.0 (0.00-0.2) % Eos # (Auto) 0.41 H (0.04-0.36) x10^3/uL Immature Gran # (Auto) 0.02 (0.001-0.031) x10^3u/L Absolute Lymphs (auto) 0.96 L (1.18-3.74) x10^3/uL Absolute Monos (auto) 0.66 (0.24-0.86) x10^3/uL Absolute Nucleated RBC 0.00 (0.00-0.012) x10^3u/L Lymphocytes % 12.7 L (19.3-51.7) % Monocytes % 8.7 (4.7-12.5) % Eosinophils % 5.4 (0.7-5.8) % Basophils % 0.4 (0.1-1.2) % Absolute Granulocytes 5.47 (1.56-6.13) x10^3/uL Basophils # 0.03 (0.01-0.08) x10^3/uL Sodium 138 (135-145) mmol/L Potassium 4.4 (3.5-5.1) mmol/L Chloride 105 (98-107) mmol/L Carbon Dioxide 22 (22-30) mmol/L Anion Gap 14.7 (5-15) MEQ/L BUN 39 H (7-17) mg/dL Creatinine 2.12 H (0.52-1.04) mg/dL Estimated GFR 23.3 ML/MIN Glucose 131 H (74-106) mg/dL POC Glucometer (74 to 106) mg/dL Lactic Acid (0.4-2.0) Calcium 7.6 L (8.4-10.2) mg/dL Magnesium 1.6 (1.6-2.3) mg/dL Total Bilirubin 0.50 (0.2-1.3) mg/dL AST 37 H (14-36) U/L ALT 41 H (0-35) U/L Alkaline Phosphatase 94 (38-126) U/L Troponin I < 0.012 (0.000-0.033) ng/mL NT-Pro-B Natriuret Pep (<300) pg/mL Serum Total Protein 7.6 (6.3-8.2) g/dL Albumin 4.2 (3.5-5.0) g/dL 07/21/24 07/21/24 07/21/24 Range/Units 12:43 12:45 16:27 WBC (3.98-10.04) x10^3/uL RBC (3.93-5.22) x10^6/uL Hgb (11.2-15.7) g/dL Hct (34.1-44.9) % MCV (79.4-94.8) fL MCH (25.6-32.2) pg MCHC (32.2-35.5) g/dL RDW (11.7-14.4) % Plt Count (182-369) x10^3/uL MPV (9.4-12.3) fL Gran % (34.0-71.1) % Immature Gran % (Auto) (0.001-0.429) % Nucleat RBC Rel Count (0.00-0.2) % Eos # (Auto) (0.04-0.36) x10^3/uL Immature Gran # (Auto) (0.001-0.031) x10^3u/L Absolute Lymphs (auto) (1.18-3.74) x10^3/uL Absolute Monos (auto) (0.24-0.86) x10^3/uL Absolute Nucleated RBC (0.00-0.012) x10^3u/L Lymphocytes % (19.3-51.7) % Monocytes % (4.7-12.5) % Eosinophils % (0.7-5.8) % Basophils % (0.1-1.2) % Absolute Granulocytes (1.56-6.13) x10^3/uL Basophils # (0.01-0.08) x10^3/uL Sodium (135-145) mmol/L Potassium (3.5-5.1) mmol/L Chloride (98-107) mmol/L Carbon Dioxide (22-30) mmol/L Anion Gap (5-15) MEQ/L BUN (7-17) mg/dL Creatinine (0.52-1.04) mg/dL Estimated GFR ML/MIN Glucose (74-106) mg/dL POC Glucometer 101 (74 to 106) mg/dL Lactic Acid 1.3 (0.4-2.0) Calcium (8.4-10.2) mg/dL Magnesium (1.6-2.3) mg/dL Total Bilirubin (0.2-1.3) mg/dL AST (14-36) U/L ALT (0-35) U/L Alkaline Phosphatase (38-126) U/L Troponin I (0.000-0.033) ng/mL NT-Pro-B Natriuret Pep 2100 (<300) pg/mL Serum Total Protein (6.3-8.2) g/dL Albumin (3.5-5.0) g/dL 07/21/24 07/21/24 07/22/24 Range/Units 19:34 20:58 07:18 WBC (3.98-10.04) x10^3/uL RBC (3.93-5.22) x10^6/uL Hgb (11.2-15.7) g/dL Hct (34.1-44.9) % MCV (79.4-94.8) fL MCH (25.6-32.2) pg MCHC (32.2-35.5) g/dL RDW (11.7-14.4) % Plt Count (182-369) x10^3/uL MPV (9.4-12.3) fL Gran % (34.0-71.1) % Immature Gran % (Auto) (0.001-0.429) % Nucleat RBC Rel Count (0.00-0.2) % Eos # (Auto) (0.04-0.36) x10^3/uL Immature Gran # (Auto) (0.001-0.031) x10^3u/L Absolute Lymphs (auto) (1.18-3.74) x10^3/uL Absolute Monos (auto) (0.24-0.86) x10^3/uL Absolute Nucleated RBC (0.00-0.012) x10^3u/L Lymphocytes % (19.3-51.7) % Monocytes % (4.7-12.5) % Eosinophils % (0.7-5.8) % Basophils % (0.1-1.2) % Absolute Granulocytes (1.56-6.13) x10^3/uL Basophils # (0.01-0.08) x10^3/uL Sodium (135-145) mmol/L Potassium (3.5-5.1) mmol/L Chloride (98-107) mmol/L Carbon Dioxide (22-30) mmol/L Anion Gap (5-15) MEQ/L BUN (7-17) mg/dL Creatinine (0.52-1.04) mg/dL Estimated GFR ML/MIN Glucose (74-106) mg/dL POC Glucometer 338 H 156 H (74 to 106) mg/dL Lactic Acid (0.4-2.0) Calcium (8.4-10.2) mg/dL Magnesium (1.6-2.3) mg/dL Total Bilirubin (0.2-1.3) mg/dL AST (14-36) U/L ALT (0-35) U/L Alkaline Phosphatase (38-126) U/L Troponin I < 0.012 (0.000-0.033) ng/mL NT-Pro-B Natriuret Pep (<300) pg/mL Serum Total Protein (6.3-8.2) g/dL Albumin (3.5-5.0) g/dL 07/22/24 Range/Units 11:38 WBC (3.98-10.04) x10^3/uL RBC (3.93-5.22) x10^6/uL Hgb (11.2-15.7) g/dL Hct (34.1-44.9) % MCV (79.4-94.8) fL MCH (25.6-32.2) pg MCHC (32.2-35.5) g/dL RDW (11.7-14.4) % Plt Count (182-369) x10^3/uL MPV (9.4-12.3) fL Gran % (34.0-71.1) % Immature Gran % (Auto) (0.001-0.429) % Nucleat RBC Rel Count (0.00-0.2) % Eos # (Auto) (0.04-0.36) x10^3/uL Immature Gran # (Auto) (0.001-0.031) x10^3u/L Absolute Lymphs (auto) (1.18-3.74) x10^3/uL Absolute Monos (auto) (0.24-0.86) x10^3/uL Absolute Nucleated RBC (0.00-0.012) x10^3u/L Lymphocytes % (19.3-51.7) % Monocytes % (4.7-12.5) % Eosinophils % (0.7-5.8) % Basophils % (0.1-1.2) % Absolute Granulocytes (1.56-6.13) x10^3/uL Basophils # (0.01-0.08) x10^3/uL Sodium (135-145) mmol/L Potassium (3.5-5.1) mmol/L Chloride (98-107) mmol/L Carbon Dioxide (22-30) mmol/L Anion Gap (5-15) MEQ/L BUN (7-17) mg/dL Creatinine (0.52-1.04) mg/dL Estimated GFR ML/MIN Glucose (74-106) mg/dL POC Glucometer 296 H (74 to 106) mg/dL Lactic Acid (0.4-2.0) Calcium (8.4-10.2) mg/dL Magnesium (1.6-2.3) mg/dL Total Bilirubin (0.2-1.3) mg/dL AST (14-36) U/L ALT (0-35) U/L Alkaline Phosphatase (38-126) U/L Troponin I (0.000-0.033) ng/mL NT-Pro-B Natriuret Pep (<300) pg/mL Serum Total Protein (6.3-8.2) g/dL Albumin (3.5-5.0) g/dL Micro Results-Entire Visit: Accuchecks Date 07/22/24 Date 07/22/24 Date 07/21/24 Date 07/21/24 Time 11:51 Time 07:21 Time 21:00 - Radiology Exams Ordered Rad Exams-Entire Visit: Radiology Procedures Category Date Time Status CHEST 1 VIEW (PORTABLE) Stat Exams 07/21/24 09:09 Completed - Procedures and Test Procedures and Tests throughout Hospitalization: Therapy Orders & Screens 07/21/24 11:00 Respiratory Therapy Assessment DAILY Comment: 07/21/24 15:17 Oxygen Nasal Cannula 2 lpm Comment: Respiratory Therapy Consult ONCE Comment: Reason For Exam: 07/21/24 16:25 RT Screen per Nursing Assess ONCE Comment: Protocol Order Physician Instructions: Greater than 3 points order RT Admission Screen Reason For Exam: Triggered on Admission Diagnosis: CHF Diagnosis: CHF Pneumonia: No Home O2: No Asthma: No CHF: Yes Home CPAP/BIPAP: No Home Nebs/MDI: Yes Total Points: 8 ST Screen per Nursing Assess ONCE Comment: Protocol Order Physician Instructions: Greater than [address] Admission Screening Reason For Exam: Triggered on Admission Diagnosis: CHF CVA/Dyshpagia/Aphasia: No Cognitive Deficits: No Dehydration/Nutrition Deficit: No Reflux: Yes Oral-Motor Difficulties: No Pneumonia: No Fpc Resident: Yes Total Points: 8 Discharge Exam General Appearance: no apparent distress, alert Neurologic Exam: alert, oriented x 3, cooperative, normal mood/affect, nml cerebellar function, sensation nml, No motor deficits Eye Exam: PERRL, EOMI, eyes nml inspection Ears, Nose, Throat Exam: normal ENT inspection, pharynx normal, moist mucous membranes Neck Exam: normal inspection, non-tender, supple, full range of motion Respiratory Exam: normal breath sounds, lungs clear, No respiratory distress Cardiovascular Exam: regular rate/rhythm, normal heart sounds, edema Gastrointestinal/Abdomen Exam: soft, No tenderness, No mass Pelvic Exam: deferred Rectal Exam: deferred Back Exam: normal inspection, normal range of motion, No CVA tenderness, No vertebral tenderness Extremity Exam: normal inspection, normal range of motion Skin Exam: normal color, warm, dry Wound Assessment: Skin/Wound Assessment Wound/Incision Assessment Start: 07/21/24 16:25 Text: Status: Active Freq: Q6H Protocol: Document 07/22/24 08:15 JV (Rec: 07/22/24 08:20 JV [id number]) Wound Photo Photo Taken No Final Diagnosis/Problem List - Final Discharge Diagnosis/Problem (1) CHF (congestive heart failure) Current Visit: Yes Status: Chronic Code(s): I50.9 - HEART FAILURE, UNSPECIFIED (2) Dyspnea Current Visit: Yes Status: Resolved Code(s): R06.00 - DYSPNEA, UNSPECIFIED (3) Essential (primary) hypertension Current Visit: No Status: Chronic Code(s): I10 - ESSENTIAL (PRIMARY) HYPERTENSION (4) Hypothyroid Current Visit: No Status: Chronic Code(s): E03.9 - HYPOTHYROIDISM, UNSPECIFIED (5) Non-compliance Current Visit: No Status: Chronic Code(s): Z91.199 - PT NONCOMPL WITH OTHER MED TRTMT AND REGIMEN D/T UNSP REASON (6) Iron deficiency anemia Current Visit: No Status: Chronic Code(s): D50.9 - IRON DEFICIENCY ANEMIA, UNSPECIFIED (7) assisted (current) use of anticoagulants Current Visit: No Status: Chronic Code(s): Z79.01 - CHAIR SPRINGER (CURRENT) USE OF ANTICOAGULANTS (8) Vitamin D deficiency Current Visit: No Status: Chronic Code(s): E55.9 - VITAMIN D DEFICIENCY, UNSPECIFIED (9) 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 - BNP 2100- better than previous visit results - Lasix 40 IV daily - MARY ELLEN, SCD's, elevate legs - Tele - Room air 99% - Echo 11/16/23- EF 72% IMPRESSION: 1. NORMAL CONTRACTILITY OF THE LEFT VENTRICLE. 2. MILD CONCENTRIC LEFT VENTRICULAR HYPERTROPHY. 3. POSSIBLE IMPAIRED LEFT VENTRICULAR RELAXATION. 4. MILD TRICUSPID REGURGITATION. 5. NORMAL RIGHT VENTRICULAR SYSTOLIC PRESSURE. 6. MITRAL VALVULAR CALCIFICATION. 07/22 - Pt refused labs this AM - refused TEDS yesterday but agreeable today - room air 92% Code(s): I50.9 - HEART FAILURE, UNSPECIFIED (2) Dyspnea Current Visit: Yes Status: Resolved Assessment & Plan: - duoneb gave in ER and pt states it was helpful but she is allergic to albuterol - Breathing treatments if needed changed to Xoponex - Room air 99% - Pt would like breathing treatment options at d/c. 07/22 - RA 92% Code(s): R06.00 - DYSPNEA, UNSPECIFIED (3) Essential (primary) hypertension Current Visit: No Status: Chronic Assessment & Plan: - Continue home med - Trend BP Code(s): I10 - ESSENTIAL (PRIMARY) HYPERTENSION (4) Hypothyroid Current Visit: No Status: Chronic Assessment & Plan: - Continue synthroid - As discussed last visit need OP f/u with endocrinology Code(s): E03.9 - HYPOTHYROIDISM, UNSPECIFIED (5) Non-compliance Current Visit: No Status: Chronic Assessment & Plan: - Does not take meds as prescribed 07/22 - refused Labs this AM - Consider hospice as she has had repeated admission to the hospital and is non- compliant Code(s): Z91.199 - PT NONCOMPL WITH OTHER MED TRTMT AND REGIMEN D/T UNSP REASON (6) Iron deficiency anemia Current Visit: No Status: Chronic Assessment & Plan: - Continue ferrous sulfate - Monitor Hgb Code(s): D50.9 - IRON DEFICIENCY ANEMIA, UNSPECIFIED (7) assisted (current) use of anticoagulants Current Visit: No Status: Chronic Assessment & Plan: - Continue Eliquis Code(s): Z79.01 - CHAIR SPRINGER (CURRENT) USE OF ANTICOAGULANTS (8) Vitamin D deficiency Current Visit: No Status: Chronic Assessment & Plan: - Continue VIt D replacement Code(s): E55.9 - VITAMIN D DEFICIENCY, UNSPECIFIED (9) Hypocalcemia due to chronic kidney disease Current Visit: Yes Status: Chronic Assessment & Plan: - Continue tums tabs QID - As discussed last visit needs to f/u OP with endocrinology Code(s): E83.51 - HYPOCALCEMIA; N18.9 - CHRONIC KIDNEY DISEASE, UNSPECIFIED (10) Edema of right upper extremity Current Visit: Yes Status: Chronic Assessment & Plan: - was like this at previous visit and Venous duplex ordered for eval- negative for DVT - Believed to be from midline infiltration - Elevate right arm to heart level Code(s): R60.0 - LOCALIZED EDEMA (11) CKD (chronic kidney disease) Current Visit: Yes Status: Chronic Assessment & Plan: - Creat 2.12 at baseline renal function Code(s): N18.9 - CHRONIC KIDNEY DISEASE, UNSPECIFIED (12) Type II diabetes mellitus Current Visit: Yes Status: Chronic Assessment & Plan: - Continue S/S insulin - accuchecks ac/hs - 07/18/24- A1C 7.21- controlled - Discharge Discharge Date: 07/22/24 (penitentiary) Disposition: XFER OTHER Condition: Stable Prescriptions: New levalbuterol HCl [Xopenex 1.25 MG/0.5 ML UD NEBULE] 1.25 mg IH Q4H PRN PRN 15 Days #60 units PRN Reason: Shortness Of Breath Continue Apixaban [Eliquis 5 mg Tablet] 5 mg PO BID Folic Acid 1 mg [Folate 1 mg] 1 mg PO DAILY Ferrous Sulfate 325 mg [Feosol 325 mg] 325 mg PO BID Famotidine 20 mg [Pepcid 20 MG] 20 mg PO BID Levothyroxine Sodium 100 Mcg [Synthroid 100 Mcg] 200 mcg PO BREAKFAST Glucagon 1 mg [GlucaGen 1 MG] 1 mg IM UD PRN PRN Reason: Hypoglycemia Cyanocobalamin 500 Mcg [Vitamin B-12 500 MCG] 1,000 mcg PO DAILY Montelukast Sodium 10 mg [Singulair 10 MG] 10 mg PO DAILY Cetirizine HCl 10 mg PO DAILY Levothyroxine Sodium 25 mcg PO HS Fluticasone Propion/Salmeterol [Advair 100-50 Diskus] 1 puff IH BID Carvedilol 12.5 mg [Coreg 12.5 mg] 12.5 mg PO BID Buspirone HCl 10 mg PO BID Losartan Potassium 12.5 mg PO DAILY Furosemide 40 mg [Lasix 40 MG] 40 mg PO DAILY Amlodipine Besylate 5 mg [Norvasc 5 mg] 2.5 mg PO DAILY Melatonin 3 mg PO HS calcitrioL [Calcitriol] 0.5 mcg PO DAILY L. Acidophilus/L.bulgaricus [Lactobacillus Tablet] 1 tab PO DAILY Loperamide HCl 2 mg [Imodium 2 mg] 1 cap PO UD PRN PRN Reason: Diarrhea Cranberry Fruit Extract [Cranberry] 300 mg PO BID Menthol [Biofreeze] 1 dose TOP BID Tamsulosin HCl 0.4 mg [Flomax 0.4 MG] 0.4 mg PO QHS Pregabalin 50 mg [Lyrica 50MG] 50 mg PO DAILY Dronedarone Hydrochloride 400* [Multaq 400 MG] 400 mg PO BID Cholecalciferol (Vitamin D3) [Vitamin D] 50,000 units PO UD Calcium Carbonate 750 mg [Tums EX 750 MG] 750 mg PO QID 30 Days #120 tablet Insulin Lispro [Humalog] See Protocol SQ ACHS PRN 30 Days #1000 units MDD 48 units PRN Reason: Hyperglycemia Acetaminophen 325 mg [Tylenol 325 mg] 325 mg PO Q6H PRN PRN PRN Reason: Pain And/Or Fever Additional Instructions: Elevate right arm to heart level to decrease edema. Elevate legs and wear MARY ELLEN hose to decrease lower extremity edema. May have oxygen PRN. Consider Hospice please discuss with pt and family. Follow up with: JOE GEORGE MD [Primary Care Provider] -
== END 2024-07-22 13:00 ==
LOC: ED 09:06 → MED SURG 15:03
PROVIDERS: ADMIT Internal Medicine; ATTEND Internal Medicine
DX: E11.22 Type 2 diabetes mellitus with diabetic chronic kidney disease (principal); I13.0 Hypertensive heart and chronic kidney disease with heart failure and stage 1 through stage 4 chronic kidney disease, or unspecified chronic kidney disease; N18.9 Chronic kidney disease, unspecified; I50.9 Heart failure, unspecified; R06.00 Dyspnea, unspecified; E03.9 Hypothyroidism, unspecified; D50.9 Iron deficiency anemia, unspecified; E83.51 Hypocalcemia; R60.0 Localized edema; E78.5 Hyperlipidemia, unspecified; I48.91 Unspecified atrial fibrillation; D64.9 Anemia, unspecified; J44.9 Chronic obstructive pulmonary disease, unspecified; I25.2 Old myocardial infarction; Z79.01 Long term (current) use of anticoagulants; Z91.199 Patient's noncompliance with other medical treatment and regimen due to unspecified reason; Z79.899 Other long term (current) drug therapy; Z85.3 Personal history of malignant neoplasm of breast
CPT/HCPCS: 0241U; 36415; 71045; 80053; 82947; 83605; 83735; 83880; 84484; 85025; 87040; 93005; 93041; 93268; 94640; 94760; 96374; 99284; G0378; J1817; J1940; A9270-GY

== ENCOUNTER 2024-09-03 17:15 | Inpatient (IN) | payer MEDICARE, OTHER ==
--- NOTE | 2024-09-03 17:29 | ERPHSYRPT ---
- History of Present Illness Time Seen by Provider: 09/03/24 17:28 Source: patient, family Exam Limitations: no limitations Physician History: This is a 79-year-old white female patient brought to hospital by the paramedics. She is a resident at [facility]. She was brought to the emergency department because she complains of right anterior thigh pain of unkn own duration and unknown etiology. Patient does state that she did not fall or injure herself. She thinks it might have come on this morning. She describes the pain as crampy and achy. Method of Injury: unknown Quality: constant, aching, cramping Severity of Pain-Max: moderate Severity of Pain-Current: moderate Lower Extremities Pain: thigh: right (Anterior) Modifying Factors: Improves With: movement Allergies/Adverse Reactions: albuterol Allergy (Intermediate, Verified 07/21/24 12:36) Swelling of Tongue and Lips propranolol [From Inderal LA] Allergy (Intermediate, Verified 07/21/24 12:36) red face and ears levofloxacin [From Levaquin] Allergy (Unknown, Verified 07/21/24 12:36) clonazepam [From Klonopin] Allergy (Verified 07/21/24 12:36) Tightness of Throat tongue swollen dronedarone [From Multaq] Allergy (Verified 07/21/24 12:36) Itching PATIENT DENIES THIS ALLERGY 07/18/24 EKING RN metoclopramide [From Reglan] Allergy (Verified 07/21/24 12:36) propranolol HCl [From Inderal LA] Allergy (Verified 07/21/24 12:36) Swelling of Tongue and Lips red face and ears [id number] Reductase Inhibitor Allergy (Verified 07/21/24 12:36) Wheezing Sulfa (Sulfonamide Antibiotics) Allergy (Verified 07/21/24 12:36) Swelling of Tongue and Lips throat swell,ears red terfenadine Allergy (Verified 07/21/24 12:36) venom-honey bee [bee venom (honey bee)] Allergy (Verified 07/21/24 12:36) Hives large hives wheat Allergy (Verified 07/21/24 12:36) zanamivir [From Relenza Diskhaler] Allergy (Verified 07/21/24 12:36) Swelling of Tongue and Lips throat tightness cilostazol [From Pletal] Adverse Reaction (Severe, Verified 07/21/24 12:36) Swelling of Tongue and Lips ticagrelor [From Brilinta] Adverse Reaction (Severe, Verified 07/21/24 12:36) Swelling of Tongue and Lips Hx Tetanus, Diphtheria Vaccination/Date Given: Yes Hx Influenza Vaccination/Date Given: Yes Hx Pneumococcal Vaccination/Date Given: Yes Travel Risk - International Travel Have you traveled outside of the country in past 3 weeks: No - Emerging Infectious Disease Are you exhibiting symptoms associated with any current EIDs: Yes Symptoms: Shortness of Breath - Review of Systems Constitutional: No Symptoms Eyes: No Symptoms Ears, Nose, & Throat: No Symptoms Respiratory: No Symptoms Cardiac: No Symptoms Abdominal/Gastrointestinal: No Symptoms Genitourinary Symptoms: No Symptoms Musculoskeletal: Other (Pain in her right anterior thigh), No Deformity, No Fall, No Injury Skin: No Symptoms Neurological: No Symptoms Psychological: No Symptoms Endocrine: No Symptoms Hematologic/Lymphatic: No Symptoms Immunological/Allergic: No Symptoms All Other Systems: Reviewed and Negative - Past Medical History Pertinent Past Medical History: Yes Neurological History: TIA, Peripheral Neuropathy ENT History: Other Cardiac History: Arrhythmia, Congestive Heart Failure, High Cholesterol, Hypertension, Myocardial Infarction (MT) Respiratory History: CHF, COPD Endocrine Medical History: Diabetes Type II, Hypothyroidism Musculoskeletal History: No Pertinent History GI Medical History: Other, GERD History: No Pertinent History Psycho-Social History: Anxiety Female Reproductive Disorders: Breast Cancer Other Medical History: right eye retinal scratch - Past Surgical History Past Surgical History: Yes Neuro Surgical History: No Pertinent History Cardiac: Other Respiratory: No Pertinent History Gastrointestinal: Hernia Repair Genitourinary: No Pertinent History Musculoskeletal: No Pertinent History Female Surgical History: Mastectomy, Lumpectomy Other Surgical History: left mastectomy 1993, right lumpectomy, right thyroid removed, left thyroid removed with goiter, pubic mass, left knee scope, valve replacement Significant Family History: no pertinent family hx - Social History Smoking Status: Never smoker Exposure to second hand smoke: No Drug Use: none Patient Lives Alone: Yes - Social Determinants of Health Will the patient participate in the screening: Yes Do you worry about a steady place to live?: No In the past 12 months,have you had to go without utilities?: No Transportation Issues: No Has anyone in your support network made you feel unsafe?: No Have you or anyone in your house had to go without enough: No - Nursing Vital Signs Nursing Vital Signs: Initial Vital Signs Temperature 97.6 F 09/03/24 17:17 Pulse Rate 81 09/03/24 17:17 Respiratory Rate 22 09/03/24 17:17 Blood Pressure 141/111 09/03/24 17:17 O2 Sat by Pulse Oximetry 100 09/03/24 17:17 Pain Scale Pain Intensity 0 - Physical Exam General Appearance: no apparent distress, alert, anxiety Eyes, Ears, Nose, Throat Exam: normal ENT inspection, moist mucous membranes Neck Exam: normal inspection, non-tender, supple, full range of motion Cardiovascular/Respiratory Exam: chest non-tender, no respiratory distress Gastrointestinal/Abdominal Exam: non-tender Back Exam: normal inspection, normal range of motion, No CVA tenderness, No vertebral tenderness Hips Exam: bilateral: non-tender, normal inspection, normal range of motion, no evidence of injury Legs Exam: right leg: soft tissue tenderness (Right anterior thigh to palpation. No evidence of swelling, bruising or cellulitis), left leg: non-tender, bilateral leg: normal inspection, normal range of motion, no evidence of injury Knees Exam: bilateral knee: non-tender, normal inspection, normal range of motion, no evidence of injury Ankle Exam: bilateral ankle: non-tender, normal inspection, normal range of motion, no evidence of injury Foot Exam: bilateral foot: non-tender, normal inspection, normal range of motion, no evidence of injury, other (Palpable pedal pulses bilaterally and they are symmetric) Neuro/Tendon Exam: normal sensation, normal motor functions, normal tendon functions, responds to pain, no evidence tendon injury Mental Status Exam: alert, oriented x 3, cooperative Skin Exam: normal color, warm, dry SpO2 Interpretation: normal SpO2: 100 O2 Delivery: Room Air - Course Nursing assessment & vital signs reviewed: Yes Ordered Tests: Active Orders 24 hr Category Date Time Status IV Insertion STAT Care 09/03/24 18:00 Active FEMUR Stat Exams 09/03/24 18:01 Taken VENOUS UNILAT/LIMITED EXTREMIT [US] Stat Exams 09/03/24 19:41 Taken CBC W DIFF Stat Lab 09/03/24 19:00 Completed CMP Stat Lab 09/03/24 19:00 Completed D-DIMER QUANTITATIVE Stat Lab 09/03/24 19:00 Completed MAGNESIUM Stat Lab 09/03/24 19:00 Completed Occult Blood-Fecal Screen (Diagnostic) [OB-FECAL SCREEN Lab 09/03/24 Ordered ] Stat PT INR [PROTIME WITH INR] Stat Lab 09/03/24 19:00 Completed Medication Summary Discontinued Medications Generic Name Dose Route Start Last Admin Trade Name Pavel PRN Reason Stop Dose Admin Heparin Sodium (Beef Lung) 5,000 unit 09/03/24 22:56 09/03/24 23:01 Heparin 5000 Units/0.5 Ml 5,000 Unit/0.5 Ml Syr IV 09/03/24 22:57 5,000 unit STAT ONE Administration Heparin Sodium (Beef Lung) Confirm 09/03/24 23:01 Heparin 5000 Units/0.5 Ml 5,000 Unit/0.5 Ml Syr Administered 09/03/24 23:02 Dose 5,000 unit .ROUTE .STK-MED ONE Morphine Sulfate 2 mg 09/03/24 18:51 09/03/24 19:00 Morphine Sulfate 2 Mg/Ml Inj IV 09/03/24 18:52 2 mg STAT ONE Administration Morphine Sulfate Confirm 09/03/24 18:58 Morphine Sulfate 2 Mg/Ml Inj Administered 09/03/24 18:59 Dose 2 mg .ROUTE .STK-MED ONE Ondansetron HCl 4 mg 09/03/24 18:51 09/03/24 19:00 Ondansetron Hcl 4 Mg/2 Ml Vial IV 09/03/24 18:52 4 mg STAT ONE Administration Ondansetron HCl Confirm 09/03/24 18:58 Ondansetron Hcl 4 Mg/2 Ml Vial Administered 09/03/24 18:59 Dose 4 mg .ROUTE .STK-MED ONE Lab/Rad Data: Laboratory Result Diagrams 09/03/24 19:00 09/03/24 19:00 Laboratory Results 09/03/24 09/03/24 09/03/24 Range/Units 19:00 19:00 19:00 WBC (3.98-10.04) x10^3/uL RBC (3.93-5.22) x10^6/uL Hgb (11.2-15.7) g/dL Hct (34.1-44.9) % MCV (79.4-94.8) fL MCH (25.6-32.2) pg MCHC (32.2-35.5) g/dL RDW (11.7-14.4) % Plt Count (182-369) x10^3/uL MPV (9.4-12.3) fL Gran % (34.0-71.1) % Immature Gran % (Auto) (0.001-0.429) % Nucleat RBC Rel Count (0.00-0.2) % Eos # (Auto) (0.04-0.36) x10^3/uL Immature Gran # (Auto) (0.001-0.031) x10^3u/L Absolute Lymphs (auto) (1.18-3.74) x10^3/uL Absolute Monos (auto) (0.24-0.86) x10^3/uL Absolute Nucleated RBC (0.00-0.012) x10^3u/L Lymphocytes % (19.3-51.7) % Monocytes % (4.7-12.5) % Eosinophils % (0.7-5.8) % Basophils % (0.1-1.2) % Absolute Granulocytes (1.56-6.13) x10^3/uL Basophils # (0.01-0.08) x10^3/uL PT 10.6 (9.4-12.5) SECONDS INR 0.97 (0.8-3.0) D-Dimer 3.23 H* (0.0-0.50) mg/L Sodium 131 L (135-145) mmol/L Potassium 4.2 (3.5-5.1) mmol/L Chloride 93 L (98-107) mmol/L Carbon Dioxide 23 (22-30) mmol/L Anion Gap 19.0 H (5-15) MEQ/L BUN 76 H (7-17) mg/dL Creatinine 2.61 H (0.52-1.04) mg/dL Estimated GFR 18.1 ML/MIN Glucose 109 H (74-106) mg/dL Calcium 6.5 L (8.4-10.2) mg/dL Magnesium 2.1 (1.6-2.3) mg/dL Total Bilirubin 0.60 (0.2-1.3) mg/dL AST 53 H (14-36) U/L ALT 27 (0-35) U/L Alkaline Phosphatase 118 (38-126) U/L Serum Total Protein 7.7 (6.3-8.2) g/dL Albumin 4.0 (3.5-5.0) g/dL 09/03/24 Range/Units 19:00 WBC 16.8 H (3.98-10.04) x10^3/uL RBC 2.48 L (3.93-5.22) x10^6/uL Hgb 7.3 L (11.2-15.7) g/dL Hct 22.6 L (34.1-44.9) % MCV 91.1 (79.4-94.8) fL MCH 29.4 (25.6-32.2) pg MCHC 32.3 (32.2-35.5) g/dL RDW 14.0 (11.7-14.4) % Plt Count 548 H (182-369) x10^3/uL MPV 11.4 (9.4-12.3) fL Gran % 77.9 H (34.0-71.1) % Immature Gran % (Auto) 1.2 H (0.001-0.429) % Nucleat RBC Rel Count 0.0 (0.00-0.2) % Eos # (Auto) 0.16 (0.04-0.36) x10^3/uL Immature Gran # (Auto) 0.20 H (0.001-0.031) x10^3u/L Absolute Lymphs (auto) 2.17 (1.18-3.74) x10^3/uL Absolute Monos (auto) 1.14 H (0.24-0.86) x10^3/uL Absolute Nucleated RBC 0.00 (0.00-0.012) x10^3u/L Lymphocytes % 12.9 L (19.3-51.7) % Monocytes % 6.8 (4.7-12.5) % Eosinophils % 1.0 (0.7-5.8) % Basophils % 0.2 (0.1-1.2) % Absolute Granulocytes 13.08 H (1.56-6.13) x10^3/uL Basophils # 0.04 (0.01-0.08) x10^3/uL PT (9.4-12.5) SECONDS INR (0.8-3.0) D-Dimer (0.0-0.50) mg/L Sodium (135-145) mmol/L Potassium (3.5-5.1) mmol/L Chloride (98-107) mmol/L Carbon Dioxide (22-30) mmol/L Anion Gap (5-15) MEQ/L BUN (7-17) mg/dL Creatinine (0.52-1.04) mg/dL Estimated GFR ML/MIN Glucose (74-106) mg/dL Calcium (8.4-10.2) mg/dL Magnesium (1.6-2.3) mg/dL Total Bilirubin (0.2-1.3) mg/dL AST (14-36) U/L ALT (0-35) U/L Alkaline Phosphatase (38-126) U/L Serum Total Protein (6.3-8.2) g/dL Albumin (3.5-5.0) g/dL - Progress Progress: improved, pain not gone completely Progress Note: 09/03/24 18:56 My medical decision making and the assignment of low to moderate complexity of this patient's medical issue today is based on review of the patient's past medical history, review the patient's medication list, reviewed patient drug allergy list, history present illness and physical findings on examination. The workup in this patient includes placement of intravenous line, CBC, BMP, magnesium level and D-dimer level. We will also order an x-ray of the patient's right femur. If the D-dimer is elevated we will order a venous Doppler of her right lower extremity. Differential diagnosis includes but is not limited to electrolyte abnormalities, DVT, muscle skeletal pain, occult fracture of the femur 09/03/24 23:04 I interpreted the patient's laboratory data results. Based on the laboratory data results, the patient has anemia. She also has an elevated D-dimer level. She does not have chest pain or shortness of breath. She does not have rectal bleeding or hematemesis or hemoptysis. I ordered venous Doppler of the patient's right lower extremity. The sonographers preliminary report given to me reveals right leg positive for nonoccluding DVT in the common femoral vein at the junction. I spoke with Dr. Koenig, the telehospitalist on-call at this time. I reviewed the patient past medical history, chief complaint and the workup results. Despite being on Eliquis, the patient has a DVT in her right lower extremity. We are going to place this patient on heparin. The patient has chronic kidney disease. Discussed with : Evonne Counseled pt/family regarding: lab results, diagnosis, need for follow-up, rad results Medical Desision Making - Independent Historian Additional History obtained from: Molding Technician/EMT - Diagnostic Testing Diagnostic test were ordered, analyzed, and reviewed by me: Yes Radiological Interpretation: Reviewed by me, Teleradiologist Report - Risk of complications The pt has a high risk of morbidity or mortality based on: Decision regarding hospitilization or escalation of hosp level of care - Departure Departure Disposition: In-patient Admission Clinical Impression: Right leg DVT, Anemia Condition: Fair Critical Care Time: No Referrals: JOE GEORGE MD [Primary Care Provider] - Follow up/PCP as directed
[2024-09-03] MEDS ORDERED: MORPHINE SULFATE 2 MG INJ ONE ×2 (18:58→23:04)
[2024-09-03] MEDS ORDERED: Zofran 4 MG/2 ML VIAL ONE (18:58)
[2024-09-03] MEDS: Zofran 4 MG/2 ML VIAL IV ONE (19:00)
[2024-09-03] MEDS: MORPHINE SULFATE 2 MG INJ IV ONE ×2 (19:00→23:06)
[2024-09-03 19:15] LABS: Absolute Neutrophil Ct (ANC) 13.08 x10^3/uL (1.56-6.13); BASOPHIL % 0.2 % (0.1-1.2); Basophil (Absolute #) 0.04 x10^3/uL (0.01-0.08); Eosinophil (Absolute #) 0.16 x10^3/uL (0.04-0.36); Hematocrit 22.6 % (34.1-44.9); Hemoglobin 7.3 g/dL (11.2-15.7); IMMATURE GRAN % 1.2 % (0.001-0.429); Lymphocyte (Absolute #) 2.17 x10^3/uL (1.18-3.74); Lymphocytes % 12.9 % (19.3-51.7); Mean Cell Volume 91.1 fL (79.4-94.8); Mean Corpuscular Hemoglobin 29.4 pg (25.6-32.2); Mean Corpuscular Hgb Concent. 32.3 g/dL (32.2-35.5); Mean Platelet Volume 11.4 fL (9.4-12.3); Monocyte (Absolute #) 1.14 x10^3/uL (0.24-0.86); Monocytes % 6.8 % (4.7-12.5); Neutrophil % 77.9 % (34.0-71.1); Platelet Count 548 x10^3/uL (182-369); Red Blood Count 2.48 x10^6/uL (3.93-5.22); White Blood Count 16.8 x10^3/uL (3.98-10.04)
[2024-09-03 19:29] LABS: BILIRUBIN,TOTAL 0.6 mg/dL (0.2-1.3); Calcium 6.5 mg/dL (8.4-10.2); Creatinine 1 2.61 mg/dL (0.52-1.04); EST GLOMERULAR FILTRATION RATE 18.1 ML/MIN; MAGNESIUM 2.1 mg/dL (1.6-2.3); Potassium 4.2 mmol/L (3.5-5.1); Total Protein 7.7 g/dL (6.3-8.2)
[2024-09-03 21:59] LABS: INR 0.97 (0.8-3.0); PROTIME 10.6 SECONDS (9.4-12.5)
[2024-09-03] MEDS ORDERED: HEPARIN 5000 UNITS/0.5 ML (HIGH RISK MED) ONE (23:01)
[2024-09-03] MEDS: HEPARIN 5000 UNITS/0.5 ML (HIGH RISK MED) IV ONE (23:01)
[2024-09-03] MEDS ORDERED: TYLENOL 325 MG PO PRN (23:55)
[2024-09-04] MEDS ORDERED: Sodium Chloride 0.9% 1000 ML 1,000 ML ONE (00:24)
[2024-09-04] MEDS: Sodium Chloride 0.9% 1000 ML 1,000 ML IV SCH ×2 (00:38→08:16)
[2024-09-04] MEDS: Heparin 25,000 units/D5W: USE ORDER SET PROTO 25,000 UNITS/250 ML BAG IV SCH (00:50)
[2024-09-04] MEDS: MORPHINE SULFATE 2 MG INJ IV PRN (01:56)
[2024-09-04] MEDS: COUMADIN PO SCH (02:06)
--- NOTE | 2024-09-04 05:02 | PCM.HP ---
History of Present Illness - Chief Complaint Chief Complaint: Right thigh pain Date: 09/04/24 History of Present Illness: 79-year-old woman with history of A-fib on Eliquis, CKD stage IV, hypertension, diabetes, COPD, hypothyroidism and HFpEF, who presents with sudden right thigh pain. Patient was in her usual state of health at the [facility] when she had the sudden onset of severe pain in her right thigh and hamstring. Denies any trauma or prior injury to this site. Denies any recent heavy exertion or use of the right leg. Pain occurred while at rest and was constant and unchanging. Patient states that the fpc helps her with her medications and she has been compliant with all of them. Denies any numbness or tingling in the right foot. No distal edema. - Review of Systems All Other Systems: Reviewed and Negative Medications & Allergies Home Medications: Home Medication List Amlodipine Besylate 2.5 mg PO DAILY 09/03/24 [History Confirmed 09/03/24] Apixaban [Eliquis] 1 tab PO BID 09/03/24 [History Confirmed 09/03/24] Aspirin 81 gm Chew [Baby Aspirin 81 mg Chew] 1 tab PO DAILY 09/03/24 [History Confirmed 09/03/24] Blood-Glucose Sensor [Dexcom G6 Sensor] 1 each SQ WEEKLY 09/03/24 [History Confirmed 09/03/24] Buspirone HCl 5 mg [Buspar 5 mg] 10 mg PO BID 09/03/24 [History Confirmed 09/03/24] Calcium Carbonate 750 mg [Tums EX 750 MG] 1 tab PO QID 09/03/24 [History Confirmed 09/03/24] Carvedilol 12.5 mg [Coreg 12.5 mg] 1 tab PO BID 09/03/24 [History Confirmed 09/03/24] Cetirizine HCl 10 mg PO DAILY 09/03/24 [History Confirmed 09/03/24] Cholecalciferol (Vitamin D3) [Vitamin D] 50,000 unit PO WEEKLY 09/03/24 [History Confirmed 09/03/24] Clopidogrel Bisulfate [PLAVIX Tablet] 75 mg PO DAILY 09/03/24 [History Confirmed 09/03/24] Cranberry Fruit Extract [Cranberry] 300 mg PO BID 09/03/24 [History Confirmed 09/03/24] Cyanocobalamin 1000 Mcg/ml [Cyanocobalamin B-12 1000 MCG/ML] 1 tab PO DAILY 09/03/24 [History Confirmed 09/03/24] Dronedarone Hydrochloride 400* [Multaq 400 MG] 1 tab PO BID 09/03/24 [History Confirmed 09/03/24] Famotidine 20 mg [Pepcid 20 MG] 1 tab PO BID 09/03/24 [History Confirmed 09/03/24] Ferrous Sulfate 325 mg [Feosol 325 mg] 1 tab PO BID 09/03/24 [History Confirmed 09/03/24] Fluticasone Propion/Salmeterol [Fluticasone-Salmeterol 250-50] 1 each IH BID 09/03/24 [History Confirmed 09/03/24] Folic Acid 1 mg [Folate 1 mg] 1 tab PO DAILY 09/03/24 [History Confirmed 09/03/24] Furosemide 20 mg [Lasix 20 mg] 20 mg PO DAILY 09/03/24 [History Confirmed 09/03/24] Insulin Lispro [Humalog Kwikpen U-100] See Rx Instructions .ROUTE .COMPLEX 09/03/24 [History Confirmed 09/03/24] Lactobacillus Acidophilus [Acidophilus TABLET] 1 tab PO DAILY 09/03/24 [History Confirmed 09/03/24] Levothyroxine Sodium 25 Mcg [Synthroid 25 Mcg] 225 mcg PO DAILY 09/03/24 [History Confirmed 09/03/24] Loperamide HCl [Imodium A-D] 2 mg PO Q8H PRN PRN 09/03/24 [History Confirmed 09/03/24] Losartan Potassium 12.5 mg PO DAILY 09/03/24 [History Confirmed 09/03/24] Melatonin 3 mg PO HS 09/03/24 [History Confirmed 09/03/24] Menthol [Biofreeze] 1 each TP BID 09/03/24 [History Confirmed 09/03/24] Meropenem [Merrem] 500 mg IV BID 09/03/24 [History Confirmed 09/03/24] Montelukast Sodium 10 mg [Singulair 10 MG] 1 tab PO DAILY 09/03/24 [History Confirmed 09/03/24] Prednisone 20 mg [Deltasone 20 mg] 40 mg PO DAILY 09/03/24 [History Confirmed 09/03/24] Pregabalin 50 mg [Lyrica 50MG] 1 cap PO DAILY 09/03/24 [History Confirmed 09/03/24] Tamsulosin HCl 0.4 mg [Flomax 0.4 MG] 1 cap PO BID 09/03/24 [History Confirmed 09/03/24] calcitrioL [Calcitriol] 0.5 mcg PO DAILY 09/03/24 [History Confirmed 09/03/24] Allergies/Adverse Reactions: Allergies Allergy/AdvReac Type Severity Reaction Status Date / Time albuterol Allergy Intermediate Swelling Verified 07/21/24 12:36 of Tongue and Lips propranolol [From Inderal LA] Allergy Intermediate Verified 07/21/24 12:36 levofloxacin [From Levaquin] Allergy Unknown Verified 07/21/24 12:36 clonazepam [From Klonopin] Allergy Tightness Verified 07/21/24 12:36 of Throat metoclopramide [From Reglan] Allergy Verified 07/21/24 12:36 propranolol HCl Allergy Swelling Verified 07/21/24 12:36 [From Inderal LA] of Tongue and Lips [id number]-[id number] Reductase Allergy Wheezing Verified 07/21/24 12:36 Inhibitor Sulfa (Sulfonamide Allergy Swelling Verified 07/21/24 12:36 Antibiotics) of Tongue and Lips terfenadine Allergy Verified 07/21/24 12:36 venom-honey bee Allergy Hives Verified 07/21/24 12:36 [bee venom (honey bee)] wheat Allergy Verified 07/21/24 12:36 zanamivir Allergy Swelling Verified 07/21/24 12:36 [From Relenza Diskhaler] of Tongue and Lips cilostazol [From Pletal] AdvReac Severe Swelling Verified 07/21/24 12:36 of Tongue and Lips ticagrelor [From Brilinta] AdvReac Severe Swelling Verified 07/21/24 12:36 of Tongue and Lips - Past Medical History Past Medical History: Yes Neurological History: TIA, Peripheral Neuropathy ENT History: Other Cardiac History: Arrhythmia, Congestive Heart Failure, High Cholesterol, Hypertension, Myocardial Infarction (MT) Respiratory History: CHF, COPD Endocrine Medical History: Diabetes Type II, Hypothyroidism Musculoskelatal History: No Pertinent History GI Medical History: Other, GERD History: No Pertinent History Pyscho-Social History: Anxiety Reproductive Disorders: Breast Cancer Comment: right eye retinal scratch - Past Surgical History Past Surgical History: Yes Neuro Surgical History: No Pertinent History Cardiac History: Other Respiratory Surgery: No Pertinent History GI Surgical History: Hernia Repair Genitourinary Surgical Hx: No Pertinent History Musculskeletal Surgical Hx: No Pertinent History Female Surgical History: Mastectomy, Lumpectomy Other Surgical History: left mastectomy 1993, right lumpectomy, right thyroid removed, left thyroid removed with goiter, pubic mass, left knee scope, valve replacement Significant Family History: no pertinent family hx - Social History Smoking Status: Never smoker Exposure to second hand smoke: No Alcohol: None Drug Use: none - Social Determinants of Health Will the patient participate in the screening: Declined to provide Do you worry about a steady place to live?: No Do you have any problems with any of the following?: No known problems In the past 12 months,have you had to go without utilities?: No Have you or anyone in your house had to go without enough: No Transportation Issues: No Has anyone in your support network made you feel unsafe?: No Does the patient want assistance with any of the above?: No [facility] Physical Exam Vital Signs: Vital Signs - 24 hr Temp Pulse Resp BP BP Pulse Ox 09/04/24 01:12 98.2 F 89 19 181/87 99 09/04/24 00:00 73 14 123/60 96 09/03/24 23:30 72 13 141/69 97 09/03/24 23:13 100 09/03/24 23:00 76 16 159/108 97 09/03/24 22:31 0 L 193/94 09/03/24 22:00 78 20 145/75 95 09/03/24 21:30 130/93 97 09/03/24 21:02 84 20 219/78 97 09/03/24 20:30 125/73 100 09/03/24 20:00 74 118/67 99 09/03/24 19:30 70 156/69 98 09/03/24 18:00 102 H 17 125/82 99 09/03/24 17:30 74 17 151/72 100 09/03/24 17:17 97.6 F 81 22 141/111 100 Physical Exam GEN: Sitting up in bed in no acute distress. HENT: Normocephalic, atraumatic. Moist mucous membranes. EYES: Normal inspection, anicteric sclera, extraocular movements intact. NECK: Supple, full range of motion CV: Regular rate and rhythm, no murmurs, no gallops. No JVD or edema. PULM: Clear to auscultation bilaterally, no work of breathing. On room air. ABD: Nondistended, nontender. MSK: Tender over the right thigh, with no joint effusion and full range of motion. SKIN: No rashes, normal color. NEURO: Face symmetric, no focal motor or sensory deficits. PSYCH: Alert, oriented x 3 Results - Labs Lab/Micro Results: Lab Results-Last 24 Hours 09/03/24 09/03/24 09/03/24 Range/Units 19:00 19:00 19:00 WBC 16.8 H (3.98-10.04) x10^3/uL RBC 2.48 L (3.93-5.22) x10^6/uL Hgb 7.3 L (11.2-15.7) g/dL Hct 22.6 L (34.1-44.9) % MCV 91.1 (79.4-94.8) fL MCH 29.4 (25.6-32.2) pg MCHC 32.3 (32.2-35.5) g/dL RDW 14.0 (11.7-14.4) % Plt Count 548 H (182-369) x10^3/uL MPV 11.4 (9.4-12.3) fL Gran % 77.9 H (34.0-71.1) % Immature Gran % (Auto) 1.2 H (0.001-0.429) % Nucleat RBC Rel Count 0.0 (0.00-0.2) % Eos # (Auto) 0.16 (0.04-0.36) x10^3/uL Immature Gran # (Auto) 0.20 H (0.001-0.031) x10^3u/L Absolute Lymphs (auto) 2.17 (1.18-3.74) x10^3/uL Absolute Monos (auto) 1.14 H (0.24-0.86) x10^3/uL Absolute Nucleated RBC 0.00 (0.00-0.012) x10^3u/L Lymphocytes % 12.9 L (19.3-51.7) % Monocytes % 6.8 (4.7-12.5) % Eosinophils % 1.0 (0.7-5.8) % Basophils % 0.2 (0.1-1.2) % Absolute Granulocytes 13.08 H (1.56-6.13) x10^3/uL Basophils # 0.04 (0.01-0.08) x10^3/uL PT (9.4-12.5) SECONDS INR (0.8-3.0) APTT (25.1-36.5) SECONDS D-Dimer 3.23 H* (0.0-0.50) mg/L Sodium 131 L (135-145) mmol/L Potassium 4.2 (3.5-5.1) mmol/L Chloride 93 L (98-107) mmol/L Carbon Dioxide 23 (22-30) mmol/L Anion Gap 19.0 H (5-15) MEQ/L BUN 76 H (7-17) mg/dL Creatinine 2.61 H (0.52-1.04) mg/dL Estimated GFR 18.1 ML/MIN Glucose 109 H (74-106) mg/dL Calcium 6.5 L (8.4-10.2) mg/dL Magnesium 2.1 (1.6-2.3) mg/dL Total Bilirubin 0.60 (0.2-1.3) mg/dL AST 53 H (14-36) U/L ALT 27 (0-35) U/L Alkaline Phosphatase 118 (38-126) U/L Serum Total Protein 7.7 (6.3-8.2) g/dL Albumin 4.0 (3.5-5.0) g/dL 09/03/24 09/03/24 Range/Units 19:00 19:00 WBC (3.98-10.04) x10^3/uL RBC (3.93-5.22) x10^6/uL Hgb (11.2-15.7) g/dL Hct (34.1-44.9) % MCV (79.4-94.8) fL MCH (25.6-32.2) pg MCHC (32.2-35.5) g/dL RDW (11.7-14.4) % Plt Count (182-369) x10^3/uL MPV (9.4-12.3) fL Gran % (34.0-71.1) % Immature Gran % (Auto) (0.001-0.429) % Nucleat RBC Rel Count (0.00-0.2) % Eos # (Auto) (0.04-0.36) x10^3/uL Immature Gran # (Auto) (0.001-0.031) x10^3u/L Absolute Lymphs (auto) (1.18-3.74) x10^3/uL Absolute Monos (auto) (0.24-0.86) x10^3/uL Absolute Nucleated RBC (0.00-0.012) x10^3u/L Lymphocytes % (19.3-51.7) % Monocytes % (4.7-12.5) % Eosinophils % (0.7-5.8) % Basophils % (0.1-1.2) % Absolute Granulocytes (1.56-6.13) x10^3/uL Basophils # (0.01-0.08) x10^3/uL PT 10.6 (9.4-12.5) SECONDS INR 0.97 (0.8-3.0) APTT 26.5 (25.1-36.5) SECONDS D-Dimer (0.0-0.50) mg/L Sodium (135-145) mmol/L Potassium (3.5-5.1) mmol/L Chloride (98-107) mmol/L Carbon Dioxide (22-30) mmol/L Anion Gap (5-15) MEQ/L BUN (7-17) mg/dL Creatinine (0.52-1.04) mg/dL Estimated GFR ML/MIN Glucose (74-106) mg/dL Calcium (8.4-10.2) mg/dL Magnesium (1.6-2.3) mg/dL Total Bilirubin (0.2-1.3) mg/dL AST (14-36) U/L ALT (0-35) U/L Alkaline Phosphatase (38-126) U/L Serum Total Protein (6.3-8.2) g/dL Albumin (3.5-5.0) g/dL - Radiology Impressions Radiology Exams & Impressions: Radiology Procedures Category Date Time Status FEMUR Stat Exams 09/03/24 18:01 Taken VENOUS UNILAT/LIMITED EXTREMIT [US] Stat Exams 09/03/24 19:41 Taken Venous Doppler right leg radiology report is not available, but per ED physician, had acute right leg DVT at the common femoral artery. Assessment/Plan (1) Right leg DVT Current Visit: Yes Status: Acute Assessment & Plan: 79-year-old woman with history of HFpEF, A-fib on Eliquis, CKD stage IV, hypertension, diabetes, COPD, and hypothyroidism, here with acute right leg DVT despite the use of Eliquis. ## Acute right leg DVT causing severe pain, and confirmed on ultrasound, despite patient being on Eliquis. No evidence of compartment syndrome, distal motor and sensory appears to be intact. There are limited options if patient has had treatment failure with Eliquis. The other direct oral anticoagulants have not been as well studied in patients with severe renal failure as compared to Eliquis. Patient most likely needs a transition to warfarin therapy, although this will be difficult with her many other current medications and likelihood of multi drug drug interactions. Given acute nature of the DVT and the patient severe pain, will also need heparin bridging. Start heparin drip Initiate patient on warfarin 5 mg daily Follow INR daily Stopping patient's Eliquis ## Type 2 diabetes Placed on low-dose sliding scale insulin ## Atrial fibrillation currently rate controlled. Continue dronedarone 400 mg BID Transitioning anticoagulation from Eliquis to warfarin, with heparin bridge Continue Coreg 12.5 BID ## Chronic diastolic heart failure patient currently euvolemic. Continue Lasix 20 mg daily ## CKD stage IV patient appears to be at her baseline creatinine of 2.6. Repeat BMP in the morning ## Hypocalcemia chronic for patient. Does not appear to be have any symptoms currently. Follow BMP, especially with setting of CKD stage IV. ## Hypertension blood pressure controlled. Continue amlodipine 2.5 mg daily, carvedilol 12.5 mg BID, losartan 25 mg daily CODE STATUS: Full code Prophylaxis: Heparin drip Diet: Diabetic, 2 g sodium Dispo: Admit to inpatient for bridging with heparin drip Code(s): I82.401 - ACUTE EMBOLISM AND THOMBOS UNSP DEEP VEINS OF R LOW EXTREM Telemedicine Encounter - Telemedicine Encounter Telemedicine Encounter: "The entirety of this encounter was performed via Telemedicine" This visit was performed using real-time audio and video connection between my location and thepatients locationwith the assistance of a surrogateat the patients location. Written or verbal consent was obtained from the patient/guardian to perform this [facility]. Any patient questions regarding the telemedicine interaction were answered.
[2024-09-04 05:44] LABS: Hematocrit 21.1 % (34.1-44.9); Mean Cell Volume 90.6 fL (79.4-94.8); Mean Corpuscular Hgb Concent. 33.2 g/dL (32.2-35.5); Mean Platelet Volume 11.9 fL (9.4-12.3); Platelet Count 479 x10^3/uL (182-369); Red Blood Count 2.33 x10^6/uL (3.93-5.22); Red Cell Distribution Width 14.4 % (11.7-14.4); White Blood Count 13.3 x10^3/uL (3.98-10.04)
[2024-09-04 05:50] LABS: ANION GAP 16.7 MEQ/L (5-15); Creatinine 1 2.54 mg/dL (0.52-1.04); EST GLOMERULAR FILTRATION RATE 18.7 ML/MIN; Potassium 4.8 mmol/L (3.5-5.1)
[2024-09-04 05:54] LABS: Calcium 5.9 mg/dL (8.4-10.2)
[2024-09-04 06:07] LABS: INR 1.09 (0.8-3.0); PROTIME 11.8 SECONDS (9.4-12.5)
[2024-09-04] MEDS ORDERED: Lasix 20 MG/2 ML IV SCH (07:00)
[2024-09-04 07:53] LABS: ABO TYPING O; Antibody Screen NEGATIVE (NEGATIVE); CROSS MATCH (PRBC) COMPATIBLE (COMPATIBLE); RH TYPING POSITIVE
[2024-09-04] MEDS: FEOSOL 325 MG PO SCH (08:16)
[2024-09-04] MEDS: NORVASC 5 MG PO SCH (08:17)
[2024-09-04] MEDS: PLAVIX Tablet PO SCH (08:18)
[2024-09-04] MEDS: Pepcid 20 MG PO SCH (08:18)
[2024-09-04] MEDS: BUSPAR 5 MG PO SCH (08:19)
[2024-09-04] MEDS: Cozaar 50 MG PO SCH (08:20)
[2024-09-04] MEDS: ECOTRIN 81 MG PO SCH (08:20)
[2024-09-04] MEDS: SYNTHROID 25 MCG PO SCH (08:20)
[2024-09-04] MEDS: Flomax 0.4 MG PO SCH (08:20)
[2024-09-04] MEDS: FOLATE 1 MG PO SCH (08:21)
[2024-09-04] MEDS: Multaq 400 MG PO SCH (08:21)
[2024-09-04] MEDS: CLARITIN 10 MG PO SCH (08:21)
[2024-09-04] MEDS: COREG 12.5 MG PO SCH (08:22)
[2024-09-04] MEDS: Singulair 10 MG PO SCH (08:22)
[2024-09-04] MEDS: LASIX 20 MG PO SCH (08:22)
[2024-09-04] MEDS: Lyrica 50MG PO SCH (08:22)
--- NOTE | 2024-09-04 08:38 | XRAY ---
Indication: Thigh pain. Comparison: None 2 view right femur demonstrates osteopenia, moderate/advanced hip degenerative arthropathy, mild lateral knee compartment degenerative joint space narrowing, right inguinal hernia mesh graft, and extensive scattered vascular calcifications. No acute bony, articular, or soft tissue abnormalities.
--- NOTE | 2024-09-04 08:40 | XRAY ---
Indication: Pain. Elevated d-dimer. Two-dimensional sonogram and color Doppler imaging major venous vessels were leg performed. Comparison: None Nonoccluding thrombus seen at junction of common femoral and greater saphenous veins. No thrombus in the remaining examined deep venous vessels right leg including greater saphenous vein.. Patent veins demonstrate normal compressibility and normal venous waveforms. Impression: Nonoccluding thrombus junction common femoral and greater saphenous vein. Comment: Preliminary report was given.
[2024-09-04] MEDS: Advair Hfa 115/21 Common canister IH SCH (09:29)
[2024-09-04] MEDS: HUMALOG SQ PRN ×2 (09:50→21:23)
[2024-09-04] MEDS ORDERED: SYNTHROID 25 MCG PO SCH (10:00)
[2024-09-04] MEDS: HEPARIN 5000 UNITS/0.5 ML (HIGH RISK MED) IV PRN (11:30)
--- NOTE | 2024-09-04 12:18 | TM.IN ---
Tele-Medicine Incident Note - Incident Note Tel-Medicine Incident Note: 09/04/24 1216 Patient on Merem 500mg BID as OP for UTI with ESBL according to SNF. Pharmacy consulted for renal dosing, okay to continue at 500mg BID- abx to be completed on 09/08/24 according to snf documentation. Records from recent hospit alization with culture results at [facility] pending. Telemedicine Encounter - Telemedicine Encounter Telemedicine Encounter: "The entirety of this encounter was performed via Telemedicine" This visit was performed using real-time audio and video connection between my location and thepatients locationwith the assistance of a surrogateat the patients location. Written or verbal consent was obtained from the patient/guardian to perform this visit [facility] technology. Any patient questions regarding the telemedicine interaction were answered.
[2024-09-04] MEDS: MERREM 500 MG in Sodium Chloride 100ML MINI-BAG PLUS 100 ML IV SCH (12:54)
[2024-09-04] MEDS: Sodium Chloride 0.9% 500 ML 500 ML IV SCH (14:25)
[2024-09-04 19:41] LABS: Hematocrit 24.1 % (34.1-44.9); Hemoglobin 7.8 g/dL (11.2-15.7)
[2024-09-04] MEDS ORDERED: COUMADIN ONE (21:08)
[2024-09-04] MEDS: MELATONIN PO SCH (21:23)
[2024-09-04] MEDS: Coumadin 2 MG PO ONE (21:24)
[2024-09-04] MEDS ORDERED: MEROPENEM 1 GM IV SCH (22:00)
[2024-09-05 05:26] LABS: Absolute Neutrophil Ct (ANC) 6.07 x10^3/uL (1.56-6.13); BASOPHIL % 0.4 % (0.1-1.2); Basophil (Absolute #) 0.03 x10^3/uL (0.01-0.08); Eosinophil % 3.6 % (0.7-5.8); Eosinophil (Absolute #) 0.31 x10^3/uL (0.04-0.36); Hematocrit 21.4 % (34.1-44.9); IMMATURE GRAN # 0.09 x10^3u/L (0.001-0.031); IMMATURE GRAN % 1.1 % (0.001-0.429); Lymphocyte (Absolute #) 1.31 x10^3/uL (1.18-3.74); Lymphocytes % 15.4 % (19.3-51.7); Mean Cell Volume 89.9 fL (79.4-94.8); Mean Corpuscular Hemoglobin 29.4 pg (25.6-32.2); Mean Corpuscular Hgb Concent. 32.7 g/dL (32.2-35.5); Mean Platelet Volume 11.5 fL (9.4-12.3); Monocyte (Absolute #) 0.71 x10^3/uL (0.24-0.86); Monocytes % 8.3 % (4.7-12.5); NUCLEATED RBC # 0.02 x10^3u/L (0.00-0.012); NUCLEATED RBC % 0.2 % (0.00-0.2); Neutrophil % 71.2 % (34.0-71.1); Platelet Count 358 x10^3/uL (182-369); Red Blood Count 2.38 x10^6/uL (3.93-5.22); Red Cell Distribution Width 14.7 % (11.7-14.4); White Blood Count 8.5 x10^3/uL (3.98-10.04)
[2024-09-05 05:48] LABS: ALBUMIN 2.8 g/dL (3.5-5.0); ANION GAP 13.5 MEQ/L (5-15); BILIRUBIN,TOTAL 0.8 mg/dL (0.2-1.3); Creatinine 1 2.33 mg/dL (0.52-1.04); EST GLOMERULAR FILTRATION RATE 20.8 ML/MIN; Potassium 4.4 mmol/L (3.5-5.1); Total Protein 5.6 g/dL (6.3-8.2)
[2024-09-05 05:52] LABS: Calcium 5.1 mg/dL (8.4-10.2)
--- NOTE | 2024-09-05 05:58 | PCM.NOTE ---
Date and Time: 09/05/24 0553 Subjective Assessment: 79-year-old woman with history of A-fib on Eliquis, CKD stage IV, hypertension, diabetes, COPD, hypothyroidism and HFpEF, who presents with sudden right thigh pain. Patient was in her usual state of health at the [facility] when she had the sudden onset of severe pain in her right thigh and hamstring. Denies any trauma or prior injury to this site. Denies any recent heavy exertion or use of the right leg. Pain occurred while at rest and was constant and unchanging. Patient states that the custodial helps her with her medications and she has been compliant with all of them. Denies any numbness or tingling in the right foot. No distal edema. Admitted with acute right leg DVT - failed Eliquis OP. 09/05/24: Met with patient bedside. Pain in right thigh improved. Rating 5/10 on numerical pain scale. Spoke with nephrology (Giovanna Mooney) regarding patient's chronic hypocalcemia. Patient was recently seen in office and calcitrol was increased at that time to 1mcg, medication list from custodial has her at 0.5mcg. Will confirm medication list today with [place]. Increase calcitrol to 1 mcg, calcium gluconate 2g given this morning. May need additional dosing if not corrected. Patient asymptomatic. Creat is at baseline. INR at 1.30. Plan to continue heparin/coumadin bridge until patient in therapeutic range. Denies fever,cough, sob, cp, abdominal pain, PACK, dizziness, N/V/D. - Review of Systems Constitutional: No Symptoms Eyes: No Symptoms Ears, Nose, & Throat: No Symptoms Respiratory: No Symptoms Cardiac: No Symptoms Abdominal/Gastrointestinal: No Symptoms Genitourinary Symptoms: No Symptoms Musculoskeletal: Other (right thigh pain) Neurological: No Symptoms Psychological: No Symptoms Endocrine: No Symptoms Hematologic/Lymphatic: No Symptoms Immunological/Allergic: No Symptoms Objective Exam General Appearance: no apparent distress Neurologic Exam: alert, oriented x 3, cooperative Skin Exam: normal color Wound Assessment: Skin/Wound Assessment Wound/Incision Assessment Start: 09/05/24 03:54 Text: Status: Active Freq: Q6H Protocol: Document 09/05/24 03:55 AK (Rec: 09/05/24 03:59 AK [id number]) Wound/Incision Assessment Right Buttock Wound Assessment New Finding Wound Type dark area Surrounding Tissue [place] Comment dark, raised area to right buttock - barrier cream applied - pillow support provide - patient encouraged to turn Wound Photo Photo Taken No Eye Exam: PERRL Ears, Nose, Throat Exam: normal ENT inspection Neck Exam: normal inspection Respiratory Exam: normal breath sounds, lungs clear Cardiovascular Exam: regular rate/rhythm, normal heart sounds Gastrointestinal/Abdomen Exam: soft, normal bowel sounds Extremity Exam: other (TTP right thigh) Back Exam: normal inspection Pelvic Exam: deferred Objective Data Vital Signs: Vital Signs - 24 hr Temp Pulse Resp BP Pulse Ox 09/05/24 05:02 63 16 97 09/05/24 03:50 64 09/05/24 03:48 97.1 F 64 15 107/47 97 09/04/24 23:43 67 09/04/24 23:42 20 09/04/24 23:08 97.2 F 63 14 98/50 97 09/04/24 19:47 98.4 F 67 14 142/66 97 09/04/24 19:37 72 18 99 09/04/24 19:30 72 09/04/24 18:00 16 09/04/24 17:46 79 19 123/62 09/04/24 17:44 75 22 88/55 09/04/24 15:49 76 17 133/80 09/04/24 15:19 75 16 112/58 09/04/24 14:40 77 17 105/56 09/04/24 14:36 78 17 09/04/24 14:30 78 09/04/24 12:00 66 16 09/04/24 10:56 96.5 F 67 16 152/83 100 09/04/24 09:30 81 20 100 09/04/24 08:00 97.8 F 82 17 158/104 100 Pain Assessment - Last Documented Pain Intensity 6 Pain Scale Used 0-10 Pain Scale Intake and Output: Intake & Output 09/02/24 09/03/24 09/04/24 09/05/24 11:59 11:59 11:59 11:59 Intake Total 485 1735 Output Total 600 500 Balance -115 1235 Weight 80.6 kg Lab Results: Lab Results-Last 24 Hours 09/04/24 09/04/24 09/04/24 Range/Units 05:30 05:30 06:36 WBC (3.98-10.04) x10^3/uL RBC (3.93-5.22) x10^6/uL Hgb (11.2-15.7) g/dL Hct (34.1-44.9) % MCV (79.4-94.8) fL MCH (25.6-32.2) pg MCHC (32.2-35.5) g/dL RDW (11.7-14.4) % Plt Count (182-369) x10^3/uL MPV (9.4-12.3) fL Gran % (34.0-71.1) % Immature Gran % (Auto) (0.001-0.429) % Nucleat RBC Rel Count (0.00-0.2) % Eos # (Auto) (0.04-0.36) x10^3/uL Immature Gran # (Auto) (0.001-0.031) x10^3u/L Absolute Lymphs (auto) (1.18-3.74) x10^3/uL Absolute Monos (auto) (0.24-0.86) x10^3/uL Absolute Nucleated RBC (0.00-0.012) x10^3u/L Lymphocytes % (19.3-51.7) % Monocytes % (4.7-12.5) % Eosinophils % (0.7-5.8) % Basophils % (0.1-1.2) % Absolute Granulocytes (1.56-6.13) x10^3/uL Basophils # (0.01-0.08) x10^3/uL PT 11.8 (9.4-12.5) SECONDS INR 1.09 (0.8-3.0) APTT 102.0 H* (25.1-36.5) SECONDS Sodium 129 L (135-145) mmol/L Potassium 4.8 (3.5-5.1) mmol/L Chloride 94 L (98-107) mmol/L Carbon Dioxide 24 (22-30) mmol/L Anion Gap 16.7 H (5-15) MEQ/L BUN 70 H (7-17) mg/dL Creatinine 2.54 H (0.52-1.04) mg/dL Estimated GFR 18.7 ML/MIN Glucose 322 H (74-106) mg/dL POC Glucometer (74 to 106) mg/dL Calcium 5.9 L* (8.4-10.2) mg/dL Total Bilirubin (0.2-1.3) mg/dL AST (14-36) U/L ALT (0-35) U/L Alkaline Phosphatase (38-126) U/L Serum Total Protein (6.3-8.2) g/dL Albumin (3.5-5.0) g/dL ABO Group O Rh Factor POSITIVE Antibody Screen NEGATIVE (NEGATIVE) Crossmatch (COMPATIBLE) 09/04/24 09/04/24 09/04/24 Range/Units 06:36 08:35 10:20 WBC (3.98-10.04) x10^3/uL RBC (3.93-5.22) x10^6/uL Hgb (11.2-15.7) g/dL Hct (34.1-44.9) % MCV (79.4-94.8) fL MCH (25.6-32.2) pg MCHC (32.2-35.5) g/dL RDW (11.7-14.4) % Plt Count (182-369) x10^3/uL MPV (9.4-12.3) fL Gran % (34.0-71.1) % Immature Gran % (Auto) (0.001-0.429) % Nucleat RBC Rel Count (0.00-0.2) % Eos # (Auto) (0.04-0.36) x10^3/uL Immature Gran # (Auto) (0.001-0.031) x10^3u/L Absolute Lymphs (auto) (1.18-3.74) x10^3/uL Absolute Monos (auto) (0.24-0.86) x10^3/uL Absolute Nucleated RBC (0.00-0.012) x10^3u/L Lymphocytes % (19.3-51.7) % Monocytes % (4.7-12.5) % Eosinophils % (0.7-5.8) % Basophils % (0.1-1.2) % Absolute Granulocytes (1.56-6.13) x10^3/uL Basophils # (0.01-0.08) x10^3/uL PT (9.4-12.5) SECONDS INR (0.8-3.0) APTT 32.5 (25.1-36.5) SECONDS Sodium (135-145) mmol/L Potassium (3.5-5.1) mmol/L Chloride (98-107) mmol/L Carbon Dioxide (22-30) mmol/L Anion Gap (5-15) MEQ/L BUN (7-17) mg/dL Creatinine (0.52-1.04) mg/dL Estimated GFR ML/MIN Glucose (74-106) mg/dL POC Glucometer 403 H (74 to 106) mg/dL Calcium (8.4-10.2) mg/dL Total Bilirubin (0.2-1.3) mg/dL AST (14-36) U/L ALT (0-35) U/L Alkaline Phosphatase (38-126) U/L Serum Total Protein (6.3-8.2) g/dL Albumin (3.5-5.0) g/dL ABO Group Rh Factor Antibody Screen (NEGATIVE) Crossmatch COMPATIBLE (COMPATIBLE) 09/04/24 09/04/24 09/04/24 Range/Units 11:58 15:15 15:33 WBC (3.98-10.04) x10^3/uL RBC (3.93-5.22) x10^6/uL Hgb (11.2-15.7) g/dL Hct (34.1-44.9) % MCV (79.4-94.8) fL MCH (25.6-32.2) pg MCHC (32.2-35.5) g/dL RDW (11.7-14.4) % Plt Count (182-369) x10^3/uL MPV (9.4-12.3) fL Gran % (34.0-71.1) % Immature Gran % (Auto) (0.001-0.429) % Nucleat RBC Rel Count (0.00-0.2) % Eos # (Auto) (0.04-0.36) x10^3/uL Immature Gran # (Auto) (0.001-0.031) x10^3u/L Absolute Lymphs (auto) (1.18-3.74) x10^3/uL Absolute Monos (auto) (0.24-0.86) x10^3/uL Absolute Nucleated RBC (0.00-0.012) x10^3u/L Lymphocytes % (19.3-51.7) % Monocytes % (4.7-12.5) % Eosinophils % (0.7-5.8) % Basophils % (0.1-1.2) % Absolute Granulocytes (1.56-6.13) x10^3/uL Basophils # (0.01-0.08) x10^3/uL PT (9.4-12.5) SECONDS INR (0.8-3.0) APTT 57.7 H (25.1-36.5) SECONDS Sodium (135-145) mmol/L Potassium (3.5-5.1) mmol/L Chloride (98-107) mmol/L Carbon Dioxide (22-30) mmol/L Anion Gap (5-15) MEQ/L BUN (7-17) mg/dL Creatinine (0.52-1.04) mg/dL Estimated GFR ML/MIN Glucose (74-106) mg/dL POC Glucometer 320 H 181 H (74 to 106) mg/dL Calcium (8.4-10.2) mg/dL Total Bilirubin (0.2-1.3) mg/dL AST (14-36) U/L ALT (0-35) U/L Alkaline Phosphatase (38-126) U/L Serum Total Protein (6.3-8.2) g/dL Albumin (3.5-5.0) g/dL ABO Group Rh Factor Antibody Screen (NEGATIVE) Crossmatch (COMPATIBLE) 09/04/24 09/04/24 09/04/24 Range/Units 16:47 19:37 19:37 WBC (3.98-10.04) x10^3/uL RBC (3.93-5.22) x10^6/uL Hgb 7.8 L (11.2-15.7) g/dL Hct 24.1 L (34.1-44.9) % MCV (79.4-94.8) fL MCH (25.6-32.2) pg MCHC (32.2-35.5) g/dL RDW (11.7-14.4) % Plt Count (182-369) x10^3/uL MPV (9.4-12.3) fL Gran % (34.0-71.1) % Immature Gran % (Auto) (0.001-0.429) % Nucleat RBC Rel Count (0.00-0.2) % Eos # (Auto) (0.04-0.36) x10^3/uL Immature Gran # (Auto) (0.001-0.031) x10^3u/L Absolute Lymphs (auto) (1.18-3.74) x10^3/uL Absolute Monos (auto) (0.24-0.86) x10^3/uL Absolute Nucleated RBC (0.00-0.012) x10^3u/L Lymphocytes % (19.3-51.7) % Monocytes % (4.7-12.5) % Eosinophils % (0.7-5.8) % Basophils % (0.1-1.2) % Absolute Granulocytes (1.56-6.13) x10^3/uL Basophils # (0.01-0.08) x10^3/uL PT (9.4-12.5) SECONDS INR (0.8-3.0) APTT 48.1 H (25.1-36.5) SECONDS Sodium (135-145) mmol/L Potassium (3.5-5.1) mmol/L Chloride (98-107) mmol/L Carbon Dioxide (22-30) mmol/L Anion Gap (5-15) MEQ/L BUN (7-17) mg/dL Creatinine (0.52-1.04) mg/dL Estimated GFR ML/MIN Glucose (74-106) mg/dL POC Glucometer 140 H (74 to 106) mg/dL Calcium (8.4-10.2) mg/dL Total Bilirubin (0.2-1.3) mg/dL AST (14-36) U/L ALT (0-35) U/L Alkaline Phosphatase (38-126) U/L Serum Total Protein (6.3-8.2) g/dL Albumin (3.5-5.0) g/dL ABO Group Rh Factor Antibody Screen (NEGATIVE) Crossmatch (COMPATIBLE) 09/04/24 09/05/24 09/05/24 Range/Units 21:11 05:12 05:12 WBC 8.5 (3.98-10.04) x10^3/uL RBC 2.38 L (3.93-5.22) x10^6/uL Hgb 7.0 L* (11.2-15.7) g/dL Hct 21.4 L (34.1-44.9) % MCV 89.9 (79.4-94.8) fL MCH 29.4 (25.6-32.2) pg MCHC 32.7 (32.2-35.5) g/dL RDW 14.7 H (11.7-14.4) % Plt Count 358 (182-369) x10^3/uL MPV 11.5 (9.4-12.3) fL Gran % 71.2 H (34.0-71.1) % Immature Gran % (Auto) 1.1 H (0.001-0.429) % Nucleat RBC Rel Count 0.2 (0.00-0.2) % Eos # (Auto) 0.31 (0.04-0.36) x10^3/uL Immature Gran # (Auto) 0.09 H (0.001-0.031) x10^3u/L Absolute Lymphs (auto) 1.31 (1.18-3.74) x10^3/uL Absolute Monos (auto) 0.71 (0.24-0.86) x10^3/uL Absolute Nucleated RBC 0.02 H (0.00-0.012) x10^3u/L Lymphocytes % 15.4 L (19.3-51.7) % Monocytes % 8.3 (4.7-12.5) % Eosinophils % 3.6 (0.7-5.8) % Basophils % 0.4 (0.1-1.2) % Absolute Granulocytes 6.07 (1.56-6.13) x10^3/uL Basophils # 0.03 (0.01-0.08) x10^3/uL PT (9.4-12.5) SECONDS INR (0.8-3.0) APTT (25.1-36.5) SECONDS Sodium 130 L (135-145) mmol/L Potassium 4.4 (3.5-5.1) mmol/L Chloride 98 (98-107) mmol/L Carbon Dioxide 23 (22-30) mmol/L Anion Gap 13.5 (5-15) MEQ/L BUN 70 H (7-17) mg/dL Creatinine 2.33 H (0.52-1.04) mg/dL Estimated GFR 20.8 ML/MIN Glucose 192 H (74-106) mg/dL POC Glucometer 190 H (74 to 106) mg/dL Calcium 5.1 L* (8.4-10.2) mg/dL Total Bilirubin 0.80 (0.2-1.3) mg/dL AST 30 (14-36) U/L ALT 15 (0-35) U/L Alkaline Phosphatase 97 (38-126) U/L Serum Total Protein 5.6 L (6.3-8.2) g/dL Albumin 2.8 L (3.5-5.0) g/dL ABO Group Rh Factor Antibody Screen (NEGATIVE) Crossmatch (COMPATIBLE) Radiology Exams: Radiology Procedures Category Date Time Status FEMUR Stat Exams 09/03/24 18:01 Completed VENOUS UNILAT/LIMITED EXTREMIT [US] Stat Exams 09/03/24 19:41 Completed Multi-Disciplinary Progress Notes: Multi-Disciplinary Progress Notes 09/04/24 13:11 Case Management Note by Angelita Ball/Kaylyn YOUNGER AT [facility]- NO INSURANCE PRESCERT REQUIRED TO RETURN TO FACILITY. PATIENT CAN RETURN WHEN MEDICALLY READY Initialized on 09/04/24 13:11 - END OF NOTE Assessment/Plan (1) Right leg DVT Current Visit: Yes Status: Acute Assessment & Plan: causing severe pain, and confirmed on ultrasound, despite patient being on Eliquis. No evidence of compartment syndrome, distal motor and sensory appears to be intact. There are limited options if patient has had treatment failure with Eliquis. The other direct oral anticoagulants have not been as well studied in patients with severe renal failure as compared to Eliquis. Patient most likely needs a transition to warfarin therapy, although this will be difficult with her many other current medications and likelihood of multi drug drug interactions. Given acute nature of the DVT and the patient severe pain, will also need heparin bridging. Continue heparin drip/coumadin bridge -pharmacy following Follow INR daily Dicontinue Eliquis Code(s): I82.401 - ACUTE EMBOLISM AND THOMBOS UNSP DEEP VEINS OF R LOW EXTREM (2) Type 2 diabetes mellitus Current Visit: Yes Status: Acute Assessment & Plan: -ADA diet -SSI/meal time insulin -A1c (3) Afib Current Visit: Yes Status: Acute Assessment & Plan: Continue dronedarone 400 mg BID Transitioning anticoagulation from Eliquis to warfarin, with heparin bridge Continue Coreg 12.5 BID Code(s): I48.91 - UNSPECIFIED ATRIAL FIBRILLATION (4) CHF (congestive heart failure) Current Visit: Yes Status: Acute Assessment & Plan: Continue Lasix 20 mg daily Code(s): I50.9 - HEART FAILURE, UNSPECIFIED (5) Hypocalcemia Current Visit: Yes Status: Acute Assessment & Plan: Follow BMP, especially with setting of CKD stage IV. chronic for patient. Does not appear to be have any symptoms currently - takes calcitrol 0.1mcg daily per nephrology -calcium reviewed at 5.1 -correct for albuminemia at 6.1- overnight provider ordered calcium gluconate 2g -monitor closely Code(s): E83.51 - HYPOCALCEMIA (6) HTN (hypertension) Current Visit: Yes Status: Acute Assessment & Plan: Continue amlodipine 2.5 mg daily, carvedilol 12.5 mg BID, losartan 25 mg daily - hold if hypotensive CODE STATUS: Full code Prophylaxis: Heparin drip Diet: Diabetic, 2 g sodium Dispo: Admit to inpatient for bridging with heparin drip Code(s): I10 - ESSENTIAL (PRIMARY) HYPERTENSION (7) CKD (chronic kidney disease) stage 4, GFR 15-29 ml/min Current Visit: No Status: Acute Assessment & Plan: -Spoke with nephrology - baseline around 2.4 -Creat reviewed at 2.33 - patient at baseline -Monitor renal/lytes -Avoid nephrotoxic agents Code(s): N18.4 - CHRONIC KIDNEY DISEASE, STAGE 4 (SEVERE) (8) UTI (urinary tract infection) Current Visit: Yes Status: Acute Assessment & Plan: -Per [place] records - recent hospitalization at [facility] - on [place] until 09/08/24 -will continue- renal dosing with [facility] pharmacist verified Code(s): N39.0 - URINARY TRACT INFECTION, SITE NOT SPECIFIED (9) Anemia Current Visit: Yes Status: Chronic Assessment & Plan: -Chronic most likely secondary to CKD -iron studies -Hgb at 7.3 on redraw- will monitor and replace if hgb < 7 Code(s): D64.9 - ANEMIA, UNSPECIFIED
[2024-09-05 06:04] LABS: INR 1.3 (0.8-3.0); PROTIME 13.9 SECONDS (9.4-12.5); PTT 60.8 SECONDS (25.1-36.5)
[2024-09-05] MEDS: Calcium Gluconate 10% 1000 MG 1,000 MG in Sodium Chloride 0.9% 100 ML IV SCH ×2 (08:02→17:05)
[2024-09-05] MEDS: COUMADIN PO SCH (12:01)
[2024-09-05 16:12] LABS: ANION GAP 18.4 MEQ/L (5-15); BILIRUBIN,TOTAL 0.6 mg/dL (0.2-1.3); Creatinine 1 2.66 mg/dL (0.52-1.04); EST GLOMERULAR FILTRATION RATE 17.7 ML/MIN; Potassium 4.3 mmol/L (3.5-5.1); Total Protein 5.8 g/dL (6.3-8.2)
[2024-09-05 16:21] LABS: Calcium 5.8 mg/dL (8.4-10.2)
[2024-09-05] MEDS: HUMALOG SQ SCH (17:05)
[2024-09-05 17:36] LABS: Iron 90 ug/dL (37-170); Iron Saturation 36 % (20-39); TIBC 250 ug/dL (265-462)
[2024-09-05 18:26] LABS: Folate (Folic Acid) > 20.0 ng/mL (2.76 - >20); Vitamin B12 984 pg/mL (239-931)
[2024-09-05] MEDS: PHARMACY DOSING REQUEST MC ONE ×2 (19:06)
[2024-09-05] MEDS ORDERED: Coumadin 2 MG PO ONE (22:00)
[2024-09-06 05:16] LABS: BASOPHIL % 0.4 % (0.1-1.2); Basophil (Absolute #) 0.03 x10^3/uL (0.01-0.08); Eosinophil % 4.9 % (0.7-5.8); Eosinophil (Absolute #) 0.38 x10^3/uL (0.04-0.36); Hematocrit 18.7 % (34.1-44.9); IMMATURE GRAN % 1.3 % (0.001-0.429); Lymphocyte (Absolute #) 1.62 x10^3/uL (1.18-3.74); Mean Cell Volume 90.3 fL (79.4-94.8); Mean Corpuscular Hgb Concent. 33.2 g/dL (32.2-35.5); Mean Platelet Volume 11.9 fL (9.4-12.3); Monocyte (Absolute #) 0.49 x10^3/uL (0.24-0.86); Monocytes % 6.3 % (4.7-12.5); NUCLEATED RBC # 0.02 x10^3u/L (0.00-0.012); NUCLEATED RBC % 0.3 % (0.00-0.2); Neutrophil % 66.1 % (34.0-71.1); Platelet Count 398 x10^3/uL (182-369); Red Blood Count 2.07 x10^6/uL (3.93-5.22); Red Cell Distribution Width 15.7 % (11.7-14.4); White Blood Count 7.7 x10^3/uL (3.98-10.04)
--- NOTE | 2024-09-06 05:17 | PCM.NOTE ---
Date and Time: 09/06/24 0516 Subjective Assessment: Ms. Magana is a 79-year-old woman with history of A-fib on Eliquis, CKD stage IV, hypertension, diabetes, COPD, hypothyroidism and HFpEF, who presents with sudden right thigh pain. Patient was in her usual state of health at the [facility] when she had the sudden onset of severe pain in her right thigh and hamstring. Denies any trauma or prior injury to this site. Denies any recent heavy exertion or use of the right leg. Pain occurred while at rest and was constant and unchanging. Patient states that the intermediate helps her with her medications and she has been compliant with all of them. Denies any numbness or tingling in the right foot. No distal edema. Admitted with acute right leg DVT - failed Eliquis OP. 09/05/24: Met with patient bedside. Pain in right thigh improved. Rating 5/10 on numerical pain scale. Spoke with nephrology (Giovanna Mooney) regarding patient's chronic hypocalcemia. Patient was recently seen in office and calcitrol was increased at that time to 1mcg, medication list from intermediate has her at 0.5mcg. Will confirm medication list today with [facility]. Increase calcitrol to 1 mcg, calcium gluconate 2g given this morning. May need additional dosing if not corrected. Patient asymptomatic. Creat is at baseline. INR at 1.30. Plan to continue heparin/coumadin bridge until patient in therapeutic range. Denies fever,cough, sob, cp, abdominal pain, PACK, dizziness, N/V/D. 09/06/24: Patient endorsing improved pain to RLE. Hemoglobin low at 6.2 and received 1 unit LBRBC. Calcium level low and received 2G calcium gluconate. INR at 1.73. Plan to continue heparin/coumadin bridge until therapeutic. - Review of Systems Constitutional: No Symptoms Eyes: No Symptoms Ears, Nose, & Throat: No Symptoms Respiratory: No Symptoms Cardiac: No Symptoms Genitourinary Symptoms: No Symptoms Musculoskeletal: No Symptoms Skin: No Symptoms Neurological: No Symptoms Psychological: No Symptoms Endocrine: No Symptoms Hematologic/Lymphatic: No Symptoms Immunological/Allergic: No Symptoms Objective Exam General Appearance: no apparent distress Neurologic Exam: alert, oriented x 3, cooperative Skin Exam: other (ecchymosis right upper thigh- healing) Wound Assessment: Skin/Wound Assessment Wound/Incision Assessment Start: 09/05/24 03:54 Text: Status: Active Freq: Q6H Protocol: Document 09/06/24 02:00 AK (Rec: 09/06/24 02:15 AK [id number]) Wound/Incision Assessment Right Buttock Wound Assessment Shift Assessment Wound Type dark area Surrounding Tissue [place] Comment dark area to right buttock - barrier cream applied - pillow support provided - patient turned to side to offload pressure Wound Photo Photo Taken No Eye Exam: PERRL Ears, Nose, Throat Exam: normal ENT inspection Neck Exam: normal inspection Respiratory Exam: normal breath sounds, lungs clear Cardiovascular Exam: regular rate/rhythm, normal heart sounds Gastrointestinal/Abdomen Exam: soft, normal bowel sounds Extremity Exam: normal inspection Back Exam: normal inspection Pelvic Exam: deferred Rectal Exam: deferred Objective Data Vital Signs: Vital Signs - 24 hr Temp Pulse Resp BP BP Pulse Ox 09/06/24 04:32 97.8 F 64 14 152/65 97 09/06/24 04:00 61 09/06/24 00:23 97.2 F 61 18 133/62 97 09/06/24 00:01 61 09/06/24 00:00 18 09/05/24 20:00 68 09/05/24 19:53 97.2 F 68 14 121/59 97 09/05/24 18:00 17 09/05/24 16:34 98.2 F 66 19 108/60 99 09/05/24 15:12 98.0 F 63 16 93/44 99 09/05/24 15:07 68 09/05/24 12:54 98.2 F 71 17 123/55 99 09/05/24 11:56 98.2 F 09/05/24 11:55 66 09/05/24 11:54 18 09/05/24 10:34 74 18 98 09/05/24 09:59 71 16 146/56 99 09/05/24 08:00 68 09/05/24 06:00 16 Pain Assessment - Last Documented Pain Intensity 3 Pain Scale Used 0-10 Pain Scale Intake and Output: Intake & Output 09/03/24 09/04/24 09/05/24 09/06/24 11:59 11:59 11:59 11:59 Intake Total 485 5535 684 Output Total 600 500 Balance -115 1235 684 Weight 80.6 kg 80.6 kg Lab Results: Lab Results-Last 24 Hours 09/05/24 09/05/24 09/05/24 Range/Units 05:12 05:12 05:12 WBC 8.5 (3.98-10.04) x10^3/uL RBC 2.38 L (3.93-5.22) x10^6/uL Hgb 7.0 L* (11.2-15.7) g/dL Hct 21.4 L (34.1-44.9) % MCV 89.9 (79.4-94.8) fL MCH 29.4 (25.6-32.2) pg MCHC 32.7 (32.2-35.5) g/dL RDW 14.7 H (11.7-14.4) % Plt Count 358 (182-369) x10^3/uL MPV 11.5 (9.4-12.3) fL Gran % 71.2 H (34.0-71.1) % Immature Gran % (Auto) 1.1 H (0.001-0.429) % Nucleat RBC Rel Count 0.2 (0.00-0.2) % Eos # (Auto) 0.31 (0.04-0.36) x10^3/uL Immature Gran # (Auto) 0.09 H (0.001-0.031) x10^3u/L Absolute Lymphs (auto) 1.31 (1.18-3.74) x10^3/uL Absolute Monos (auto) 0.71 (0.24-0.86) x10^3/uL Absolute Nucleated RBC 0.02 H (0.00-0.012) x10^3u/L Lymphocytes % 15.4 L (19.3-51.7) % Monocytes % 8.3 (4.7-12.5) % Eosinophils % 3.6 (0.7-5.8) % Basophils % 0.4 (0.1-1.2) % Absolute Granulocytes 6.07 (1.56-6.13) x10^3/uL Basophils # 0.03 (0.01-0.08) x10^3/uL PT 13.9 H (9.4-12.5) SECONDS INR 1.30 (0.8-3.0) APTT 60.8 H (25.1-36.5) SECONDS Sodium 130 L (135-145) mmol/L Potassium 4.4 (3.5-5.1) mmol/L Chloride 98 (98-107) mmol/L Carbon Dioxide 23 (22-30) mmol/L Anion Gap 13.5 (5-15) MEQ/L BUN 70 H (7-17) mg/dL Creatinine 2.33 H (0.52-1.04) mg/dL Estimated GFR 20.8 ML/MIN Glucose 192 H (74-106) mg/dL POC Glucometer (74 to 106) mg/dL Hemoglobin A1c (4.5-6.0) % Calcium 5.1 L* (8.4-10.2) mg/dL Iron (37-170) ug/dL TIBC (265-462) ug/dL Iron Saturation (20-39) % Ferritin (11.1-264) ng/mL Total Bilirubin 0.80 (0.2-1.3) mg/dL AST 30 (14-36) U/L ALT 15 (0-35) U/L Alkaline Phosphatase 97 (38-126) U/L Serum Total Protein 5.6 L (6.3-8.2) g/dL Albumin 2.8 L (3.5-5.0) g/dL Vitamin B12 (239-931) pg/mL Folic Acid (2.76 - >20) ng/mL 09/05/24 09/05/24 09/05/24 Range/Units 06:14 07:38 08:16 WBC (3.98-10.04) x10^3/uL RBC (3.93-5.22) x10^6/uL Hgb 7.3 L (11.2-15.7) g/dL Hct (34.1-44.9) % MCV (79.4-94.8) fL MCH (25.6-32.2) pg MCHC (32.2-35.5) g/dL RDW (11.7-14.4) % Plt Count (182-369) x10^3/uL MPV (9.4-12.3) fL Gran % (34.0-71.1) % Immature Gran % (Auto) (0.001-0.429) % Nucleat RBC Rel Count (0.00-0.2) % Eos # (Auto) (0.04-0.36) x10^3/uL Immature Gran # (Auto) (0.001-0.031) x10^3u/L Absolute Lymphs (auto) (1.18-3.74) x10^3/uL Absolute Monos (auto) (0.24-0.86) x10^3/uL Absolute Nucleated RBC (0.00-0.012) x10^3u/L Lymphocytes % (19.3-51.7) % Monocytes % (4.7-12.5) % Eosinophils % (0.7-5.8) % Basophils % (0.1-1.2) % Absolute Granulocytes (1.56-6.13) x10^3/uL Basophils # (0.01-0.08) x10^3/uL PT (9.4-12.5) SECONDS INR (0.8-3.0) APTT (25.1-36.5) SECONDS Sodium (135-145) mmol/L Potassium (3.5-5.1) mmol/L Chloride (98-107) mmol/L Carbon Dioxide (22-30) mmol/L Anion Gap (5-15) MEQ/L BUN (7-17) mg/dL Creatinine (0.52-1.04) mg/dL Estimated GFR ML/MIN Glucose (74-106) mg/dL POC Glucometer 297 H (74 to 106) mg/dL Hemoglobin A1c (4.5-6.0) % Calcium (8.4-10.2) mg/dL Iron 90 (37-170) ug/dL TIBC 250 L (265-462) ug/dL Iron Saturation 36 (20-39) % Ferritin (11.1-264) ng/mL Total Bilirubin (0.2-1.3) mg/dL AST (14-36) U/L ALT (0-35) U/L Alkaline Phosphatase (38-126) U/L Serum Total Protein (6.3-8.2) g/dL Albumin (3.5-5.0) g/dL Vitamin B12 (239-931) pg/mL Folic Acid (2.76 - >20) ng/mL 02/05/25 02/05/25 02/05/25 Range/Units 11:30 15:50 15:55 WBC (3.98-10.04) x10^3/uL RBC (3.93-5.22) x10^6/uL Hgb (11.2-15.7) g/dL Hct (34.1-44.9) % MCV (79.4-94.8) fL MCH (25.6-32.2) pg MCHC (32.2-35.5) g/dL RDW (11.7-14.4) % Plt Count (182-369) x10^3/uL MPV (9.4-12.3) fL Gran % (34.0-71.1) % Immature Gran % (Auto) (0.001-0.429) % Nucleat RBC Rel Count (0.00-0.2) % Eos # (Auto) (0.04-0.36) x10^3/uL Immature Gran # (Auto) (0.001-0.031) x10^3u/L Absolute Lymphs (auto) (1.18-3.74) x10^3/uL Absolute Monos (auto) (0.24-0.86) x10^3/uL Absolute Nucleated RBC (0.00-0.012) x10^3u/L Lymphocytes % (19.3-51.7) % Monocytes % (4.7-12.5) % Eosinophils % (0.7-5.8) % Basophils % (0.1-1.2) % Absolute Granulocytes (1.56-6.13) x10^3/uL Basophils # (0.01-0.08) x10^3/uL PT (9.4-12.5) SECONDS INR (0.8-3.0) APTT (25.1-36.5) SECONDS Sodium 133 L (135-145) mmol/L Potassium 4.3 (3.5-5.1) mmol/L Chloride 98 (98-107) mmol/L Carbon Dioxide 20 L (22-30) mmol/L Anion Gap 18.4 H (5-15) MEQ/L BUN 67 H (7-17) mg/dL Creatinine 2.66 H (0.52-1.04) mg/dL Estimated GFR 17.7 ML/MIN Glucose 167 H (74-106) mg/dL POC Glucometer 326 H (74 to 106) mg/dL Hemoglobin A1c 7.77 H (4.5-6.0) % Calcium 5.8 L* (8.4-10.2) mg/dL Iron (37-170) ug/dL TIBC (265-462) ug/dL Iron Saturation (20-39) % Ferritin (11.1-264) ng/mL Total Bilirubin 0.60 (0.2-1.3) mg/dL AST 35 (14-36) U/L ALT 23 (0-35) U/L Alkaline Phosphatase 92 (38-126) U/L Serum Total Protein 5.8 L (6.3-8.2) g/dL Albumin 3.0 L (3.5-5.0) g/dL Vitamin B12 (239-931) pg/mL Folic Acid (2.76 - >20) ng/mL 09/05/24 09/05/24 09/05/24 Range/Units 15:55 16:12 20:08 WBC (3.98-10.04) x10^3/uL RBC (3.93-5.22) x10^6/uL Hgb (11.2-15.7) g/dL Hct (34.1-44.9) % MCV (79.4-94.8) fL MCH (25.6-32.2) pg MCHC (32.2-35.5) g/dL RDW (11.7-14.4) % Plt Count (182-369) x10^3/uL MPV (9.4-12.3) fL Gran % (34.0-71.1) % Immature Gran % (Auto) (0.001-0.429) % Nucleat RBC Rel Count (0.00-0.2) % Eos # (Auto) (0.04-0.36) x10^3/uL Immature Gran # (Auto) (0.001-0.031) x10^3u/L Absolute Lymphs (auto) (1.18-3.74) x10^3/uL Absolute Monos (auto) (0.24-0.86) x10^3/uL Absolute Nucleated RBC (0.00-0.012) x10^3u/L Lymphocytes % (19.3-51.7) % Monocytes % (4.7-12.5) % Eosinophils % (0.7-5.8) % Basophils % (0.1-1.2) % Absolute Granulocytes (1.56-6.13) x10^3/uL Basophils # (0.01-0.08) x10^3/uL PT (9.4-12.5) SECONDS INR (0.8-3.0) APTT (25.1-36.5) SECONDS Sodium (135-145) mmol/L Potassium (3.5-5.1) mmol/L Chloride (98-107) mmol/L Carbon Dioxide (22-30) mmol/L Anion Gap (5-15) MEQ/L BUN (7-17) mg/dL Creatinine (0.52-1.04) mg/dL Estimated GFR ML/MIN Glucose (74-106) mg/dL POC Glucometer 152 H 117 H (74 to 106) mg/dL Hemoglobin A1c (4.5-6.0) % Calcium (8.4-10.2) mg/dL Iron (37-170) ug/dL TIBC (265-462) ug/dL Iron Saturation (20-39) % Ferritin 78.0 (11.1-264) ng/mL Total Bilirubin (0.2-1.3) mg/dL AST (14-36) U/L ALT (0-35) U/L Alkaline Phosphatase (38-126) U/L Serum Total Protein (6.3-8.2) g/dL Albumin (3.5-5.0) g/dL Vitamin B12 984 H (239-931) pg/mL Folic Acid > 20.0 (2.76 - >20) ng/mL Multi-Disciplinary Progress Notes: Multi-Disciplinary Progress Notes 09/05/24 13:32 Case Management Note by Angelita Ball NO CHANGE IN DC PLANS AT THIS TIME- PATIENT TO RETURN TO SNF FACILITY AT TIME OF DC Initialized on 09/05/24 13:32 - END OF NOTE 09/05/24 11:06 Pharmacy Note by Jevon Baker Initial or Current Dose: 5 mg daily at 1800 pt received initial warfarin dose of 5 mg 09/04/24 at 0141 pt missed warfarin 5mg dose on 09/04/24 1800 ... ordred 2 mg dose 09/04/240... pt received at 2124.. inr = 1.30 09/05 order for pharmacy to dose warfarin / heparin bridge.. Date: 09/05/24 1100 INR: 1.30 Dose adjustment recommendation: give 5 mg at 1200 today then start 5 mg daily at 1800 on 09/06/24. pharmacy to follow abbe Initialized on 09/05/24 11:06 - END OF NOTE Assessment/Plan (1) Right leg DVT Current Visit: Yes Status: Acute Assessment & Plan: causing severe pain, and confirmed on ultrasound, despite patient being on Eliquis. No evidence of compartment syndrome, distal motor and sensory appears to be intact. There are limited options if patient has had treatment failure with Eliquis. The other direct oral anticoagulants have not been as well studied in patients with severe renal failure as compared to Eliquis. Patient most likely needs a transition to warfarin therapy, although this will be difficult with her many other current medications and likelihood of multi drug drug interactions. Given acute nature of the DVT and the patient severe pain, will also need heparin bridging. Continue heparin drip/coumadin bridge -pharmacy following Follow INR daily Dicontinue Eliquis 09/06: -INR at 1.73 -pharmacy dosing coumadin with bridging heparin Code(s): I82.401 - ACUTE EMBOLISM AND THOMBOS UNSP DEEP VEINS OF R LOW EXTREM (2) Type 2 diabetes mellitus Current Visit: Yes Status: Acute Assessment & Plan: -ADA diet -SSI/meal time insulin -A1c (3) Afib Current Visit: Yes Status: Acute Assessment & Plan: Continue dronedarone 400 mg BID Transitioning anticoagulation from Eliquis to warfarin, with heparin bridge Continue Coreg 12.5 BID Code(s): I48.91 - UNSPECIFIED ATRIAL FIBRILLATION (4) CHF (congestive heart failure) Current Visit: Yes Status: Acute Assessment & Plan: Continue Lasix 20 mg daily Code(s): I50.9 - HEART FAILURE, UNSPECIFIED (5) Hypocalcemia Current Visit: Yes Status: Acute Assessment & Plan: Follow BMP, especially with setting of CKD stage IV. chronic for patient. Does not appear to be have any symptoms currently - takes calcitrol 0.1mcg daily per nephrology -calcium reviewed at 5.1 -correct for albuminemia at 6.1- overnight provider ordered calcium gluconate 2g -monitor closely 2/6: -2G calcium gluconate infused -Ca level reviewed with minimal improvement at 5.8- corrected calcium at 6.8- monitor closely Code(s): E83.51 - HYPOCALCEMIA (6) HTN (hypertension) Current Visit: Yes Status: Acute Assessment & Plan: Continue amlodipine 2.5 mg daily, carvedilol 12.5 mg BID, losartan 25 mg daily - hold if hypotensive Code(s): I10 - ESSENTIAL (PRIMARY) HYPERTENSION (7) CKD (chronic kidney disease) stage 4, GFR 15-29 ml/min Current Visit: No Status: Acute Assessment & Plan: -Spoke with nephrology - baseline around 2.4 -Creat reviewed at 2.33 - patient at baseline -Monitor renal/lytes -Avoid nephrotoxic agents 09/06: -Creat reviewed at 2.32- baseline Code(s): N18.4 - CHRONIC KIDNEY DISEASE, STAGE 4 (SEVERE) (8) UTI (urinary tract infection) Current Visit: Yes Status: Acute Assessment & Plan: -Per [place] records - recent hospitalization at [facility] - on [place] until 09/08/24 -will continue- renal dosing with [facility] pharmacist verified 09/06: -WBC reviewed and WNL at 7.7 Code(s): N39.0 - URINARY TRACT INFECTION, SITE NOT SPECIFIED (9) Anemia Current Visit: Yes Status: Chronic Assessment & Plan: -Chronic most likely secondary to CKD -iron studies -Hgb at 7.3 on redraw- will monitor and replace if hgb < 7 09/06: -Hgb reviwed at transfuse 1 units LPRBC CODE STATUS: Full code Prophylaxis: Heparin drip Diet: Diabetic, 2 g sodium Dispo: Admit to inpatient for bridging with heparin drip Code(s): I82.401 - ACUTE EMBOLISM AND THOMBOS UNSP DEEP VEINS OF R LOW EXTREM (2) Type 2 diabetes mellitus Current Visit: Yes Status: Acute (3) Afib Current Visit: Yes Status: Acute Code(s): I48.91 - UNSPECIFIED ATRIAL FIBRILLATION (4) CHF (congestive heart failure) Current Visit: Yes Status: Acute Code(s): I50.9 - HEART FAILURE, UNSPECIFIED (5) Hypocalcemia Current Visit: Yes Status: Acute Code(s): E83.51 - HYPOCALCEMIA (6) HTN (hypertension) Current Visit: Yes Status: Acute Code(s): I10 - ESSENTIAL (PRIMARY) HYPERTENSION (7) CKD (chronic kidney disease) stage 4, GFR 15-29 ml/min Current Visit: No Status: Acute Code(s): N18.4 - CHRONIC KIDNEY DISEASE, STAGE 4 (SEVERE) (8) UTI (urinary tract infection) Current Visit: Yes Status: Acute Code(s): N39.0 - URINARY TRACT INFECTION, SITE NOT SPECIFIED (9) Anemia Current Visit: Yes Status: Chronic Code(s): D64.9 - ANEMIA, UNSPECIFIED
[2024-09-06 05:29] LABS: Hemoglobin 6.2 g/dL (11.2-15.7)
[2024-09-06 05:34] LABS: INR 1.73 (0.8-3.0); PROTIME 18.2 SECONDS (9.4-12.5); PTT 52.4 SECONDS (25.1-36.5)
[2024-09-06 05:50] LABS: ALBUMIN 2.8 g/dL (3.5-5.0); BILIRUBIN,TOTAL 0.7 mg/dL (0.2-1.3); Creatinine 1 2.32 mg/dL (0.52-1.04); EST GLOMERULAR FILTRATION RATE 20.9 ML/MIN; Potassium 4.9 mmol/L (3.5-5.1); Total Protein 5.7 g/dL (6.3-8.2)
[2024-09-06 05:59] LABS: Calcium 5.8 mg/dL (8.4-10.2)
[2024-09-06] MEDS ORDERED: Calcium Gluconate 10% 1000 MG IV ONE (06:13)
[2024-09-06] MEDS ORDERED: Sodium Chloride 0.9% 100 ML ONE (06:15)
[2024-09-06] MEDS: Calcium Gluconate 10% 1000 MG 1,000 MG in Sodium Chloride 0.9% 100 ML IV SCH (06:24)
[2024-09-06 06:30] LABS: CROSS MATCH (PRBC) COMPATIBLE (COMPATIBLE)
[2024-09-06] MEDS: Sodium Chloride 0.9% 500 ML 500 ML IV SCH (09:29)
[2024-09-06 14:33] LABS: Hematocrit 27.8 % (34.1-44.9)
[2024-09-06 14:40] LABS: Hemoglobin 9.2 g/dL (11.2-15.7)
[2024-09-06] MEDS: COUMADIN PO SCH (17:49)
[2024-09-06 19:55] LABS: IFOB TEST RESULTS POSITIVE (NEGATIVE)
[2024-09-06] MEDS: PROTONIX 40 MG IV IV SCH (21:27)
[2024-09-07 05:19] LABS: Absolute Neutrophil Ct (ANC) 3.95 x10^3/uL (1.56-6.13); BASOPHIL % 0.6 % (0.1-1.2); Basophil (Absolute #) 0.04 x10^3/uL (0.01-0.08); Eosinophil % 5.5 % (0.7-5.8); Eosinophil (Absolute #) 0.34 x10^3/uL (0.04-0.36); Hematocrit 26.7 % (34.1-44.9); Hemoglobin 8.8 g/dL (11.2-15.7); IMMATURE GRAN # 0.06 x10^3u/L (0.001-0.031); Lymphocyte (Absolute #) 1.21 x10^3/uL (1.18-3.74); Lymphocytes % 19.5 % (19.3-51.7); Mean Cell Volume 88.1 fL (79.4-94.8); Mean Platelet Volume 11.3 fL (9.4-12.3); Monocyte (Absolute #) 0.62 x10^3/uL (0.24-0.86); Neutrophil % 63.4 % (34.0-71.1); Platelet Count 375 x10^3/uL (182-369); Red Blood Count 3.03 x10^6/uL (3.93-5.22); Red Cell Distribution Width 17.1 % (11.7-14.4); White Blood Count 6.2 x10^3/uL (3.98-10.04)
--- NOTE | 2024-09-07 05:32 | PCM.NOTE ---
Date and Time: 09/07/24 0532 Subjective Assessment: Ms. Magana is a 79-year-old woman with history of A-fib on Eliquis, CKD stage IV, hypertension, diabetes, COPD, hypothyroidism and HFpEF, who presents with sudden right thigh pain. Patient was in her usual state of health at the [facility] when she had the sudden onset of severe pain in her right thigh and hamstring. Denies any trauma or prior injury to this site. Denies any recent heavy exertion or use of the right leg. Pain occurred while at rest and was constant and unchanging. Patient states that the [facility] her with her medications and she has been compliant with all of them. Denies any numbness or tingling in the right foot. No distal edema. Admitted with acute right leg DVT - failed Eliquis OP. 09/05/24: Met with patient bedside. Pain in right thigh improved. Rating 5/10 on numerical pain scale. Spoke with nephrology (Giovanna Mooney) regarding patient's chronic hypocalcemia. Patient was recently seen in office and calcitrol was increased at that time to 1mcg, medication list from [facility] has her at 0.5mcg. Will confirm medication list today with [facility]. Increase calcitrol to 1 mcg, calcium gluconate 2g given this morning. May need additional dosing if not corrected. Patient asymptomatic. Creat is at baseline. INR at 1.30. Plan to continue heparin/coumadin bridge until patient in therapeutic range. Denies fever,cough, sob, cp, abdominal pain, PACK, dizziness, N/V/D. 09/06/24: Patient endorsing improved pain to RLE. Hemoglobin low at 6.2 and received 1 unit LBRBC. Calcium level low and received 2G calcium gluconate. INR at 1.73. Plan to continue heparin/coumadin bridge until therapeutic. 09/07/24: Met with patient bedside. No complaints this morning. Hgb stable at 8.8. INR now at therapeutic range at 2.3. Heparin drip has been discontinued. Calcium and creat levels improving. Occult stools positive. In the setting of newly diagnosed DVT with coumadin, will continue to monitor hgb levels- may consider transfer if patient is transfusion dependent for IVC and GI evaluation. - Review of Systems Constitutional: No Symptoms Eyes: No Symptoms Hematologic/Lymphatic: Anemia All Other Systems: Reviewed and Negative Objective Exam General Appearance: no apparent distress Neurologic Exam: alert, oriented x 3, cooperative Skin Exam: normal color Wound Assessment: Skin/Wound Assessment Wound/Incision Assessment Start: 09/05/24 03:54 Text: Status: Active Freq: Q6H Protocol: Document 09/07/24 02:00 AK (Rec: 09/07/24 02:07 AK [id number]) Wound/Incision Assessment Right Buttock Wound Assessment Shift Assessment Wound Type dark area Drainage Amount None General Appearance Open to air,Clean/Dry Surrounding Tissue [place] Comment dark area to right buttock - surrounding area with blanchable erythema - turned to side with pillow support to offload pressure - barrier cream applied prn Wound Photo Photo Taken No Eye Exam: PERRL Ears, Nose, Throat Exam: normal ENT inspection Neck Exam: normal inspection Respiratory Exam: wheezing Cardiovascular Exam: regular rate/rhythm, normal heart sounds Gastrointestinal/Abdomen Exam: soft, normal bowel sounds Extremity Exam: normal inspection Back Exam: normal inspection Pelvic Exam: deferred Rectal Exam: deferred Objective Data Vital Signs: Vital Signs - 24 hr Temp Pulse Resp BP Pulse Ox 09/07/24 04:45 97.2 F 60 14 160/87 97 09/07/24 04:00 61 09/07/24 00:25 97 F 67 18 157/68 99 09/07/24 00:01 67 09/07/24 00:00 18 09/06/24 19:46 97.2 F 69 24 157/80 99 09/06/24 19:45 69 09/06/24 18:51 75 18 97 09/06/24 18:30 16 09/06/24 16:07 68 16 135/91 09/06/24 16:01 64 09/06/24 12:56 64 16 137/72 09/06/24 12:15 66 09/06/24 10:49 66 14 124/101 09/06/24 10:15 72 19 171/92 09/06/24 09:20 83 18 173/79 09/06/24 08:00 98.1 F 64 09/06/24 07:43 70 17 161/81 09/06/24 06:00 14 Pain Assessment - Last Documented Pain Intensity 0 Pain Scale Used 0-10 Pain Scale Intake and Output: Intake & Output 09/04/24 09/05/24 09/06/24 09/07/24 11:59 11:59 11:59 11:59 Intake Total 485 3647 327 3431 Output Total 600 500 Balance -115 1499 116 9045 Weight 80.6 kg 80.6 kg Lab Results: Lab Results-Last 24 Hours 09/05/24 09/06/24 09/06/24 Range/Units 08:16 05:07 05:07 WBC (3.98-10.04) x10^3/uL RBC (3.93-5.22) x10^6/uL Hgb (11.2-15.7) g/dL Hct (34.1-44.9) % MCV (79.4-94.8) fL MCH (25.6-32.2) pg MCHC (32.2-35.5) g/dL RDW (11.7-14.4) % Plt Count (182-369) x10^3/uL MPV (9.4-12.3) fL Gran % (34.0-71.1) % Immature Gran % (Auto) (0.001-0.429) % Nucleat RBC Rel Count (0.00-0.2) % Eos # (Auto) (0.04-0.36) x10^3/uL Immature Gran # (Auto) (0.001-0.031) x10^3u/L Absolute Lymphs (auto) (1.18-3.74) x10^3/uL Absolute Monos (auto) (0.24-0.86) x10^3/uL Absolute Nucleated RBC (0.00-0.012) x10^3u/L Lymphocytes % (19.3-51.7) % Monocytes % (4.7-12.5) % Eosinophils % (0.7-5.8) % Basophils % (0.1-1.2) % Absolute Granulocytes (1.56-6.13) x10^3/uL Basophils # (0.01-0.08) x10^3/uL PT 18.2 H (9.4-12.5) SECONDS INR 1.73 D (0.8-3.0) APTT 52.4 H (25.1-36.5) SECONDS Sodium 130 L (135-145) mmol/L Potassium 4.9 (3.5-5.1) mmol/L Chloride 99 (98-107) mmol/L Carbon Dioxide 21 L (22-30) mmol/L Anion Gap 14.0 (5-15) MEQ/L BUN 69 H (7-17) mg/dL Creatinine 2.32 H (0.52-1.04) mg/dL Estimated GFR 20.9 ML/MIN Glucose 183 H (74-106) mg/dL POC Glucometer (74 to 106) mg/dL Calcium 5.8 L* (8.4-10.2) mg/dL Total Bilirubin 0.70 (0.2-1.3) mg/dL AST 40 H (14-36) U/L ALT 17 (0-35) U/L Alkaline Phosphatase 85 (38-126) U/L Serum Total Protein 5.7 L (6.3-8.2) g/dL Albumin 2.8 L (3.5-5.0) g/dL PTH Intact Whole Molec 11 L (15-65) pg/mL Stl Occult Blood (IFOB) (NEGATIVE) Crossmatch (COMPATIBLE) 09/06/24 09/06/24 09/06/24 Range/Units 06:21 07:40 11:36 WBC (3.98-10.04) x10^3/uL RBC (3.93-5.22) x10^6/uL Hgb (11.2-15.7) g/dL Hct (34.1-44.9) % MCV (79.4-94.8) fL MCH (25.6-32.2) pg MCHC (32.2-35.5) g/dL RDW (11.7-14.4) % Plt Count (182-369) x10^3/uL MPV (9.4-12.3) fL Gran % (34.0-71.1) % Immature Gran % (Auto) (0.001-0.429) % Nucleat RBC Rel Count (0.00-0.2) % Eos # (Auto) (0.04-0.36) x10^3/uL Immature Gran # (Auto) (0.001-0.031) x10^3u/L Absolute Lymphs (auto) (1.18-3.74) x10^3/uL Absolute Monos (auto) (0.24-0.86) x10^3/uL Absolute Nucleated RBC (0.00-0.012) x10^3u/L Lymphocytes % (19.3-51.7) % Monocytes % (4.7-12.5) % Eosinophils % (0.7-5.8) % Basophils % (0.1-1.2) % Absolute Granulocytes (1.56-6.13) x10^3/uL Basophils # (0.01-0.08) x10^3/uL PT (9.4-12.5) SECONDS INR (0.8-3.0) APTT (25.1-36.5) SECONDS Sodium (135-145) mmol/L Potassium (3.5-5.1) mmol/L Chloride (98-107) mmol/L Carbon Dioxide (22-30) mmol/L Anion Gap (5-15) MEQ/L BUN (7-17) mg/dL Creatinine (0.52-1.04) mg/dL Estimated GFR ML/MIN Glucose (74-106) mg/dL POC Glucometer 306 H 142 H (74 to 106) mg/dL Calcium (8.4-10.2) mg/dL Total Bilirubin (0.2-1.3) mg/dL AST (14-36) U/L ALT (0-35) U/L Alkaline Phosphatase (38-126) U/L Serum Total Protein (6.3-8.2) g/dL Albumin (3.5-5.0) g/dL PTH Intact Whole Molec (15-65) pg/mL Stl Occult Blood (IFOB) (NEGATIVE) Crossmatch COMPATIBLE (COMPATIBLE) 09/06/24 09/06/24 09/06/24 Range/Units 14:00 16:35 19:50 WBC (3.98-10.04) x10^3/uL RBC (3.93-5.22) x10^6/uL Hgb 9.2 L D (11.2-15.7) g/dL Hct 27.8 L (34.1-44.9) % MCV (79.4-94.8) fL MCH (25.6-32.2) pg MCHC (32.2-35.5) g/dL RDW (11.7-14.4) % Plt Count (182-369) x10^3/uL MPV (9.4-12.3) fL Gran % (34.0-71.1) % Immature Gran % (Auto) (0.001-0.429) % Nucleat RBC Rel Count (0.00-0.2) % Eos # (Auto) (0.04-0.36) x10^3/uL Immature Gran # (Auto) (0.001-0.031) x10^3u/L Absolute Lymphs (auto) (1.18-3.74) x10^3/uL Absolute Monos (auto) (0.24-0.86) x10^3/uL Absolute Nucleated RBC (0.00-0.012) x10^3u/L Lymphocytes % (19.3-51.7) % Monocytes % (4.7-12.5) % Eosinophils % (0.7-5.8) % Basophils % (0.1-1.2) % Absolute Granulocytes (1.56-6.13) x10^3/uL Basophils # (0.01-0.08) x10^3/uL PT (9.4-12.5) SECONDS INR (0.8-3.0) APTT (25.1-36.5) SECONDS Sodium (135-145) mmol/L Potassium (3.5-5.1) mmol/L Chloride (98-107) mmol/L Carbon Dioxide (22-30) mmol/L Anion Gap (5-15) MEQ/L BUN (7-17) mg/dL Creatinine (0.52-1.04) mg/dL Estimated GFR ML/MIN Glucose (74-106) mg/dL POC Glucometer 119 H (74 to 106) mg/dL Calcium (8.4-10.2) mg/dL Total Bilirubin (0.2-1.3) mg/dL AST (14-36) U/L ALT (0-35) U/L Alkaline Phosphatase (38-126) U/L Serum Total Protein (6.3-8.2) g/dL Albumin (3.5-5.0) g/dL PTH Intact Whole Molec (15-65) pg/mL Stl Occult Blood (IFOB) POSITIVE A (NEGATIVE) Crossmatch (COMPATIBLE) 09/06/24 09/07/24 Range/Units 20:02 05:12 WBC 6.2 (3.98-10.04) x10^3/uL RBC 3.03 L (3.93-5.22) x10^6/uL Hgb 8.8 L (11.2-15.7) g/dL Hct 26.7 L (34.1-44.9) % MCV 88.1 (79.4-94.8) fL MCH 29.0 (25.6-32.2) pg MCHC 33.0 (32.2-35.5) g/dL RDW 17.1 H (11.7-14.4) % Plt Count 375 H (182-369) x10^3/uL MPV 11.3 (9.4-12.3) fL Gran % 63.4 (34.0-71.1) % Immature Gran % (Auto) 1.0 H (0.001-0.429) % Nucleat RBC Rel Count 0.0 (0.00-0.2) % Eos # (Auto) 0.34 (0.04-0.36) x10^3/uL Immature Gran # (Auto) 0.06 H (0.001-0.031) x10^3u/L Absolute Lymphs (auto) 1.21 (1.18-3.74) x10^3/uL Absolute Monos (auto) 0.62 (0.24-0.86) x10^3/uL Absolute Nucleated RBC 0.00 (0.00-0.012) x10^3u/L Lymphocytes % 19.5 (19.3-51.7) % Monocytes % 10.0 (4.7-12.5) % Eosinophils % 5.5 (0.7-5.8) % Basophils % 0.6 (0.1-1.2) % Absolute Granulocytes 3.95 (1.56-6.13) x10^3/uL Basophils # 0.04 (0.01-0.08) x10^3/uL PT (9.4-12.5) SECONDS INR (0.8-3.0) APTT (25.1-36.5) SECONDS Sodium (135-145) mmol/L Potassium (3.5-5.1) mmol/L Chloride (98-107) mmol/L Carbon Dioxide (22-30) mmol/L Anion Gap (5-15) MEQ/L BUN (7-17) mg/dL Creatinine (0.52-1.04) mg/dL Estimated GFR ML/MIN Glucose (74-106) mg/dL POC Glucometer 176 H (74 to 106) mg/dL Calcium (8.4-10.2) mg/dL Total Bilirubin (0.2-1.3) mg/dL AST (14-36) U/L ALT (0-35) U/L Alkaline Phosphatase (38-126) U/L Serum Total Protein (6.3-8.2) g/dL Albumin (3.5-5.0) g/dL PTH Intact Whole Molec (15-65) pg/mL Stl Occult Blood (IFOB) (NEGATIVE) Crossmatch (COMPATIBLE) Multi-Disciplinary Progress Notes: Multi-Disciplinary Progress Notes 09/06/24 11:16 Case Management Note by Angelita Ball NO CHANGE IN DC PLANS- [facility] Initialized on 09/06/24 11:16 - END OF NOTE Assessment/Plan (1) Right leg DVT Current Visit: Yes Status: Acute Assessment & Plan: causing severe pain, and confirmed on ultrasound, despite patient being on Eliquis. No evidence of compartment syndrome, distal motor and sensory appears to be intact. There are limited options if patient has had treatment failure with Eliquis. The other direct oral anticoagulants have not been as well studied in patients with severe renal failure as compared to Eliquis. Patient most likely needs a transition to warfarin therapy, although this will be difficult with her many other current medications and likelihood of multi drug drug interactions. Given acute nature of the DVT and the patient severe pain, will also need heparin bridging. Continue heparin drip/coumadin bridge -pharmacy following Follow INR daily Dicontinue Eliquis 09/06: -INR reviewed at 1.73 -pharmacy dosing coumadin with bridging heparin 09/07: -INR reviewed and at therapeutic range at 2.3 - Heparin drip d/cd Code(s): I82.401 - ACUTE EMBOLISM AND THOMBOS UNSP DEEP VEINS OF R LOW EXTREM (2) Type 2 diabetes mellitus Current Visit: Yes Status: Acute Assessment & Plan: -ADA diet -SSI/meal time insulin -A1c (3) Afib Current Visit: Yes Status: Acute Assessment & Plan: Continue dronedarone 400 mg BID Transitioning anticoagulation from Eliquis to warfarin, with heparin bridge Continue Coreg 12.5 BID Code(s): I48.91 - UNSPECIFIED ATRIAL FIBRILLATION (4) CHF (congestive heart failure) Current Visit: Yes Status: Acute Assessment & Plan: Continue Lasix 20 mg daily Code(s): I50.9 - HEART FAILURE, UNSPECIFIED (5) Hypocalcemia Current Visit: Yes Status: Acute Assessment & Plan: Follow BMP, especially with setting of CKD stage IV. chronic for patient. Does not appear to be have any symptoms currently - takes calcitrol 0.1mcg daily per nephrology -calcium reviewed at 5.1 -correct for albuminemia at 6.1- overnight provider ordered calcium gluconate 2g -monitor closely 09/06: -2G calcium gluconate infused -Ca level reviewed with minimal improvement at 5.8- corrected calcium at 6.8- monitor closely 09/07: -Calcium level improving with corrected calcium at 7.1 - will give 2g of calcium gluconate today and continue calcitrol Code(s): E83.51 - HYPOCALCEMIA (6) HTN (hypertension) Current Visit: Yes Status: Acute Assessment & Plan: Continue amlodipine 2.5 mg daily, carvedilol 12.5 mg BID, losartan 25 mg daily - hold if hypotensive Code(s): I10 - ESSENTIAL (PRIMARY) HYPERTENSION (7) CKD (chronic kidney disease) stage 4, GFR 15-29 ml/min Current Visit: No Status: Acute Assessment & Plan: -Spoke with nephrology - baseline around 2.4 -Creat reviewed at 2.33 - patient at baseline -Monitor renal/lytes -Avoid nephrotoxic agents 09/06: -Creat reviewed at 2.32- baseline 09/07: -creat reviewed at 2.14- better than baseline - continue to monitor renal/lytes daily Code(s): N18.4 - CHRONIC KIDNEY DISEASE, STAGE 4 (SEVERE) (8) UTI (urinary tract infection) Current Visit: Yes Status: Acute Assessment & Plan: -Per [place] records - recent hospitalization at [facility] - on [place] until 09/08/24 -will continue- renal dosing with [facility] pharmacist verified 09/06: -WBC reviewed and WNL at 7.7 Code(s): N39.0 - URINARY TRACT INFECTION, SITE NOT SPECIFIED (9) Anemia Current Visit: Yes Status: Chronic Assessment & Plan: -Chronic most likely secondary to CKD -iron studies -Hgb at 7.3 on redraw- will monitor and replace if hgb < 7 09/06: -Hgb reviwed at transfuse 1 units LPRBC 09/07: -Hgb reviewed and stable at 8.8 -occult stools + - may consider transfer if hgb does not remain stable - patient may need IVC filter and GI consult CODE STATUS: Full code Prophylaxis: Heparin drip Diet: Diabetic, 2 g sodium Dispo: Admit to inpatient for bridging with heparin drip Code(s): I82.401 - ACUTE EMBOLISM AND THOMBOS UNSP DEEP VEINS OF R LOW EXTREM (2) Type 2 diabetes mellitus Current Visit: Yes Status: Acute (3) Afib Current Visit: Yes Status: Acute Code(s): I48.91 - UNSPECIFIED ATRIAL FIBRILLATION (4) CHF (congestive heart failure) Current Visit: Yes Status: Acute Code(s): I50.9 - HEART FAILURE, UNSPECIFIED (5) Hypocalcemia Current Visit: Yes Status: Acute Code(s): E83.51 - HYPOCALCEMIA (6) HTN (hypertension) Current Visit: Yes Status: Acute Code(s): I10 - ESSENTIAL (PRIMARY) HYPERTENSION (7) CKD (chronic kidney disease) stage 4, GFR 15-29 ml/min Current Visit: No Status: Acute Code(s): N18.4 - CHRONIC KIDNEY DISEASE, STAGE 4 (SEVERE) (8) UTI (urinary tract infection) Current Visit: Yes Status: Acute Code(s): N39.0 - URINARY TRACT INFECTION, SITE NOT SPECIFIED (9) Anemia Current Visit: Yes Status: Chronic Code(s): D64.9 - ANEMIA, UNSPECIFIED
[2024-09-07 05:49] LABS: ALBUMIN 3.1 g/dL (3.5-5.0); BILIRUBIN,TOTAL 0.7 mg/dL (0.2-1.3); Calcium 6.4 mg/dL (8.4-10.2); Creatinine 1 2.14 mg/dL (0.52-1.04); Potassium 4.4 mmol/L (3.5-5.1); Total Protein 6.2 g/dL (6.3-8.2)
[2024-09-07 06:37] LABS: INR 2.33 (0.8-3.0); PTT 74.1 SECONDS (25.1-36.5)
[2024-09-07] MEDS: Calcium Gluconate 10% 1000 MG 1,000 MG in Sodium Chloride 0.9% 100 ML IV SCH (15:55)
--- NOTE | 2024-09-08 05:24 | PCM.NOTE ---
Date and Time: 09/08/24 0523 Subjective Assessment: Ms. Magana is a 79-year-old woman with history of A-fib on Eliquis, CKD stage IV, hypertension, diabetes, COPD, hypothyroidism and HFpEF, who presents with sudden right thigh pain. Patient was in her usual state of health at the [facility] when she had the sudden onset of severe pain in her right thigh and hamstring. Denies any trauma or prior injury to this site. Denies any recent heavy exertion or use of the right leg. Pain occurred while at rest and was constant and unchanging. Patient states that the [facility] her with her medications and she has been compliant with all of them. Denies any numbness or tingling in the right foot. No distal edema. Admitted with acute right leg DVT - failed Eliquis OP. 09/05/24: Met with patient bedside. Pain in right thigh improved. Rating 5/10 on numerical pain scale. Spoke with nephrology (Giovanna Mooney) regarding patient's chronic hypocalcemia. Patient was recently seen in office and calcitrol was increased at that time to 1mcg, medication list from prison has her at 0.5mcg. Will confirm medication list today with [facility]. Increase calcitrol to 1 mcg, calcium gluconate 2g given this morning. May need additional dosing if not corrected. Patient asymptomatic. Creat is at baseline. INR at 1.30. Plan to continue heparin/coumadin bridge until patient in therapeutic range. Denies fever,cough, sob, cp, abdominal pain, PACK, dizziness, N/V/D. 09/06/24: Patient endorsing improved pain to RLE. Hemoglobin low at 6.2 and received 1 unit LBRBC. Calcium level low and received 2G calcium gluconate. INR at 1.73. Plan to continue heparin/coumadin bridge until therapeutic. 09/07/24: Met with patient bedside. No complaints this morning. Hgb stable at 8.8. INR now at therapeutic range at 2.3. Heparin drip has been discontinued. Calcium and creat levels improving. Occult stools positive. In the setting of newly diagnosed DVT with coumadin, will continue to monitor hgb levels- may consider transfer if patient is transfusion dependent for IVC and GI evaluation. 09/08/24: No overnight events noted. Patient states she is tired this morning otherwise doing well. Mild pain in her right upper thigh rating 3/10 on numerical pain scale. INR above therapeutic range. Plan to monitor patient over the weekend as there is question on whether to transfer to higher level of care for IVC due to anemia and positive occult stools. We are reluctant to discontinue coumadin as patient presented with severe pain to the right upper thigh. Hemoglobin is sta ble since transfusion two days ago. Plan to continue to monitor. - Review of Systems Constitutional: No Symptoms Eyes: No Symptoms Ears, Nose, & Throat: No Symptoms Respiratory: No Symptoms Cardiac: No Symptoms Abdominal/Gastrointestinal: No Symptoms Genitourinary Symptoms: No Symptoms Musculoskeletal: No Symptoms Skin: Other (right thigh ecchymosis ) Neurological: No Symptoms Psychological: No Symptoms Hematologic/Lymphatic: Anemia Immunological/Allergic: No Symptoms Objective Exam General Appearance: no apparent distress Neurologic Exam: alert, oriented x 3, cooperative Wound Assessment: Skin/Wound Assessment Wound/Incision Assessment Start: 09/05/24 03:54 Text: Status: Active Freq: Q6H Protocol: Document 09/08/24 02:00 MP (Rec: 09/08/24 03:25 MP [id number]) Wound/Incision Assessment Right Buttock Wound Assessment Shift Assessment Wound Type dark area General Appearance Open to air,Clean/Dry Surrounding Tissue [place] Comment dark area to right buttock - surrounding area with blanchable erythema - turned to side with pillow support to offload pressure - barrier cream applied prn. Remains true. Wound Photo Photo Taken No Eye Exam: PERRL Ears, Nose, Throat Exam: normal ENT inspection Respiratory Exam: normal breath sounds, lungs clear Cardiovascular Exam: regular rate/rhythm, normal heart sounds Gastrointestinal/Abdomen Exam: soft, normal bowel sounds Extremity Exam: normal inspection Back Exam: normal inspection Pelvic Exam: deferred Rectal Exam: deferred Objective Data Vital Signs: Vital Signs - 24 hr Temp Pulse Resp BP BP Pulse Ox 09/08/24 04:00 97.3 F 71 19 131/58 98 09/08/24 02:00 18 09/07/24 23:56 97.1 F 75 18 130/60 96 09/07/24 20:00 97.2 F 72 18 146/67 98 09/07/24 18:44 71 18 98 09/07/24 09:59 76 16 98 09/07/24 08:00 60 09/07/24 07:35 60 09/07/24 07:34 97.5 F 69 14 183/87 09/07/24 06:00 14 Pain Assessment - Last Documented Pain Intensity 0 Pain Scale Used 0-10 Pain Scale Intake and Output: Intake & Output 09/05/24 09/06/24 09/07/24 09/08/24 11:59 11:59 11:59 11:59 Intake Total 9029 722 7908 500 Output Total 500 350 Balance 9996 169 4408 150 Weight 80.6 kg Lab Results: Lab Results-Last 24 Hours 09/07/24 09/07/24 09/07/24 Range/Units 05:12 05:12 05:12 WBC 6.2 (3.98-10.04) x10^3/uL RBC 3.03 L (3.93-5.22) x10^6/uL Hgb 8.8 L (11.2-15.7) g/dL Hct 26.7 L (34.1-44.9) % MCV 88.1 (79.4-94.8) fL MCH 29.0 (25.6-32.2) pg MCHC 33.0 (32.2-35.5) g/dL RDW 17.1 H (11.7-14.4) % Plt Count 375 H (182-369) x10^3/uL MPV 11.3 (9.4-12.3) fL Gran % 63.4 (34.0-71.1) % Immature Gran % (Auto) 1.0 H (0.001-0.429) % Nucleat RBC Rel Count 0.0 (0.00-0.2) % Eos # (Auto) 0.34 (0.04-0.36) x10^3/uL Immature Gran # (Auto) 0.06 H (0.001-0.031) x10^3u/L Absolute Lymphs (auto) 1.21 (1.18-3.74) x10^3/uL Absolute Monos (auto) 0.62 (0.24-0.86) x10^3/uL Absolute Nucleated RBC 0.00 (0.00-0.012) x10^3u/L Lymphocytes % 19.5 (19.3-51.7) % Monocytes % 10.0 (4.7-12.5) % Eosinophils % 5.5 (0.7-5.8) % Basophils % 0.6 (0.1-1.2) % Absolute Granulocytes 3.95 (1.56-6.13) x10^3/uL Basophils # 0.04 (0.01-0.08) x10^3/uL PT 24.0 H (9.4-12.5) SECONDS INR 2.33 D (0.8-3.0) APTT 74.1 H (25.1-36.5) SECONDS Sodium 137 D (135-145) mmol/L Potassium 4.4 (3.5-5.1) mmol/L Chloride 101 (98-107) mmol/L Carbon Dioxide 24 (22-30) mmol/L Anion Gap 16.0 H (5-15) MEQ/L BUN 59 H (7-17) mg/dL Creatinine 2.14 H (0.52-1.04) mg/dL Estimated GFR 23.0 ML/MIN Glucose 169 H (74-106) mg/dL POC Glucometer (74 to 106) mg/dL Calcium 6.4 L (8.4-10.2) mg/dL Total Bilirubin 0.70 (0.2-1.3) mg/dL AST 37 H (14-36) U/L ALT 17 (0-35) U/L Alkaline Phosphatase 101 (38-126) U/L Serum Total Protein 6.2 L (6.3-8.2) g/dL Albumin 3.1 L (3.5-5.0) g/dL 09/07/24 09/07/24 09/07/24 Range/Units 07:31 11:09 11:15 WBC (3.98-10.04) x10^3/uL RBC (3.93-5.22) x10^6/uL Hgb (11.2-15.7) g/dL Hct (34.1-44.9) % MCV (79.4-94.8) fL MCH (25.6-32.2) pg MCHC (32.2-35.5) g/dL RDW (11.7-14.4) % Plt Count (182-369) x10^3/uL MPV (9.4-12.3) fL Gran % (34.0-71.1) % Immature Gran % (Auto) (0.001-0.429) % Nucleat RBC Rel Count (0.00-0.2) % Eos # (Auto) (0.04-0.36) x10^3/uL Immature Gran # (Auto) (0.001-0.031) x10^3u/L Absolute Lymphs (auto) (1.18-3.74) x10^3/uL Absolute Monos (auto) (0.24-0.86) x10^3/uL Absolute Nucleated RBC (0.00-0.012) x10^3u/L Lymphocytes % (19.3-51.7) % Monocytes % (4.7-12.5) % Eosinophils % (0.7-5.8) % Basophils % (0.1-1.2) % Absolute Granulocytes (1.56-6.13) x10^3/uL Basophils # (0.01-0.08) x10^3/uL PT (9.4-12.5) SECONDS INR (0.8-3.0) APTT 33.2 (25.1-36.5) SECONDS Sodium (135-145) mmol/L Potassium (3.5-5.1) mmol/L Chloride (98-107) mmol/L Carbon Dioxide (22-30) mmol/L Anion Gap (5-15) MEQ/L BUN (7-17) mg/dL Creatinine (0.52-1.04) mg/dL Estimated GFR ML/MIN Glucose (74-106) mg/dL POC Glucometer 275 H 271 H (74 to 106) mg/dL Calcium (8.4-10.2) mg/dL Total Bilirubin (0.2-1.3) mg/dL AST (14-36) U/L ALT (0-35) U/L Alkaline Phosphatase (38-126) U/L Serum Total Protein (6.3-8.2) g/dL Albumin (3.5-5.0) g/dL 09/07/24 09/07/24 09/07/24 Range/Units 12:59 16:17 21:39 WBC (3.98-10.04) x10^3/uL RBC (3.93-5.22) x10^6/uL Hgb (11.2-15.7) g/dL Hct (34.1-44.9) % MCV (79.4-94.8) fL MCH (25.6-32.2) pg MCHC (32.2-35.5) g/dL RDW (11.7-14.4) % Plt Count (182-369) x10^3/uL MPV (9.4-12.3) fL Gran % (34.0-71.1) % Immature Gran % (Auto) (0.001-0.429) % Nucleat RBC Rel Count (0.00-0.2) % Eos # (Auto) (0.04-0.36) x10^3/uL Immature Gran # (Auto) (0.001-0.031) x10^3u/L Absolute Lymphs (auto) (1.18-3.74) x10^3/uL Absolute Monos (auto) (0.24-0.86) x10^3/uL Absolute Nucleated RBC (0.00-0.012) x10^3u/L Lymphocytes % (19.3-51.7) % Monocytes % (4.7-12.5) % Eosinophils % (0.7-5.8) % Basophils % (0.1-1.2) % Absolute Granulocytes (1.56-6.13) x10^3/uL Basophils # (0.01-0.08) x10^3/uL PT (9.4-12.5) SECONDS INR (0.8-3.0) APTT (25.1-36.5) SECONDS Sodium (135-145) mmol/L Potassium (3.5-5.1) mmol/L Chloride (98-107) mmol/L Carbon Dioxide (22-30) mmol/L Anion Gap (5-15) MEQ/L BUN (7-17) mg/dL Creatinine (0.52-1.04) mg/dL Estimated GFR ML/MIN Glucose (74-106) mg/dL POC Glucometer 207 H 108 H 239 H (74 to 106) mg/dL Calcium (8.4-10.2) mg/dL Total Bilirubin (0.2-1.3) mg/dL AST (14-36) U/L ALT (0-35) U/L Alkaline Phosphatase (38-126) U/L Serum Total Protein (6.3-8.2) g/dL Albumin (3.5-5.0) g/dL Multi-Disciplinary Progress Notes: Multi-Disciplinary Progress Notes 09/07/24 13:55 Case Management Note by Angelita Ball PATIENT CONTINUES TO PLAN TO RETURN TO [facility] AT TIME OF DC. CLINICAL UPDATE FAXED TO [facility] THEY WILL CHECK TO SEE IF TRANSPORTATION WILL BE AVAILABLE FOR PATIENT OVER THE WEEKEND Initialized on 09/07/24 13:55 - END OF NOTE 09/07/24 07:27 Pharmacy Note by Carroll Ramirez INR therapeutic at 2.33. Heparin drip dc'd. Continue Coumadin 5mg daily. Initialized on 09/07/24 07:27 - END OF NOTE Assessment/Plan (1) Right leg DVT Current Visit: Yes Status: Acute Assessment & Plan: causing severe pain, and confirmed on ultrasound, despite patient being on Eliquis. No evidence of compartment syndrome, distal motor and sensory appears to be intact. There are limited options if patient has had treatment failure with Eliquis. The other direct oral anticoagulants have not been as well studied in patients with severe renal failure as compared to Eliquis. Patient most likely needs a transition to warfarin therapy, although this will be difficult w ith her many other current medications and likelihood of multi drug drug interactions. Given acute nature of the DVT and the patient severe pain, will also need heparin bridging. Continue heparin drip/coumadin bridge -pharmacy following Follow INR daily Discontinue Eliquis 09/06: -INR reviewed at 1.73 -pharmacy dosing coumadin with bridging heparin 09/07: -INR reviewed and at therapeutic range at 2.3 - Heparin drip d/cd 09/08: -INR reviewed at 3.2- pharmacy managing coumadin -Pain controlled -Consider transfer for IVC if patient becomes transfusion dependent Code(s): I82.401 - ACUTE EMBOLISM AND THOMBOS UNSP DEEP VEINS OF R LOW EXTREM (2) Type 2 diabetes mellitus Current Visit: Yes Status: Acute Assessment & Plan: -ADA diet -SSI/meal time insulin -A1c (3) Afib Current Visit: Yes Status: Acute Assessment & Plan: Continue dronedarone 400 mg BID Transitioning anticoagulation from Eliquis to warfarin, with heparin bridge Continue Coreg 12.5 BID 09/08: -continue coumadin Code(s): I48.91 - UNSPECIFIED ATRIAL FIBRILLATION (4) CHF (congestive heart failure) Current Visit: Yes Status: Acute Assessment & Plan: Continue Lasix 20 mg daily Code(s): I50.9 - HEART FAILURE, UNSPECIFIED (5) Hypocalcemia Current Visit: Yes Status: Acute Assessment & Plan: Follow BMP, especially with setting of CKD stage IV. chronic for patient. Does not appear to be have any symptoms currently - takes calcitrol 0.1mcg daily per nephrology -calcium reviewed at 5.1 -correct for albuminemia at 6.1- overnight provider ordered calcium gluconate 2g -monitor closely 09/06: -2G calcium gluconate infused -Ca level reviewed with minimal improvement at 5.8- corrected calcium at 6.8- monitor closely 09/07: -Calcium level improving with corrected calcium at 7.1 - will give 2g of calcium gluconate today and continue calcitrol 09/08: -Calcium level reviewed - corrected calcium at 7.7- continue calcitrol 1mcg Code(s): E83.51 - HYPOCALCEMIA (6) HTN (hypertension) Current Visit: Yes Status: Acute Assessment & Plan: Continue amlodipine 2.5 mg daily, carvedilol 12.5 mg BID, losartan 25 mg daily - hold if hypotensive Code(s): I10 - ESSENTIAL (PRIMARY) HYPERTENSION (7) CKD (chronic kidney disease) stage 4, GFR 15-29 ml/min Current Visit: No Status: Acute Assessment & Plan: -Spoke with nephrology - baseline around 2.4 -Creat reviewed at 2.33 - patient at baseline -Monitor renal/lytes -Avoid nephrotoxic agents 09/06: -Creat reviewed at 2.32- baseline 09/07: -creat reviewed at 2.14- better than baseline - continue to monitor renal/lytes daily 09/08: -Creat reviewed at 2.17- better than baseline -continue to monitor renal/lytes daily Code(s): N18.4 - CHRONIC KIDNEY DISEASE, STAGE 4 (SEVERE) (8) UTI (urinary tract infection) Current Visit: Yes Status: Acute Assessment & Plan: -Per [place] records - recent hospitalization at [facility] - [facility] - on Merem until 09/08/24 -will continue- renal dosing with [facility] pharmacist verified 09/06: -WBC reviewed and WNL at 7.7 09/08: -last of Merem today per [place] records Code(s): N39.0 - URINARY TRACT INFECTION, SITE NOT SPECIFIED (9) Anemia Current Visit: Yes Status: Chronic Assessment & Plan: -Chronic most likely secondary to CKD -iron studies -Hgb at 7.3 on redraw- will monitor and replace if hgb < 7 09/06: -Hgb reviwed at transfuse 1 units LPRBC 09/07: -Hgb reviewed and stable at 8.8 -occult stools + - may consider transfer if hgb does not remain stable - patient may need IVC filter and GI consult 09/08: -Hgb reviewed and stable at 8.1 CODE STATUS: Full code Prophylaxis: coumadin Diet: Diabetic, 2 g sodium Dispo: Admit to inpatient for bridging with heparin drip Code(s): I82.401 - ACUTE EMBOLISM AND THOMBOS UNSP DEEP VEINS OF R LOW EXTREM (2) Type 2 diabetes mellitus Current Visit: Yes Status: Acute (3) Afib Current Visit: Yes Status: Acute Code(s): I48.91 - UNSPECIFIED ATRIAL FIBRILLATION (4) CHF (congestive heart failure) Current Visit: Yes Status: Acute Code(s): I50.9 - HEART FAILURE, UNSPECIFIED (5) Hypocalcemia Current Visit: Yes Status: Acute Code(s): E83.51 - HYPOCALCEMIA (6) HTN (hypertension) Current Visit: Yes Status: Acute Code(s): I10 - ESSENTIAL (PRIMARY) HYPERTENSION (7) CKD (chronic kidney disease) stage 4, GFR 15-29 ml/min Current Visit: No Status: Acute Code(s): N18.4 - CHRONIC KIDNEY DISEASE, STAGE 4 (SEVERE) (8) UTI (urinary tract infection) Current Visit: Yes Status: Acute Code(s): N39.0 - URINARY TRACT INFECTION, SITE NOT SPECIFIED (9) Anemia Current Visit: Yes Status: Chronic Code(s): D64.9 - ANEMIA, UNSPECIFIED
[2024-09-08 05:54] LABS: Absolute Neutrophil Ct (ANC) 3.41 x10^3/uL (1.56-6.13); BASOPHIL % 0.4 % (0.1-1.2); Basophil (Absolute #) 0.02 x10^3/uL (0.01-0.08); Eosinophil % 4.3 % (0.7-5.8); Eosinophil (Absolute #) 0.23 x10^3/uL (0.04-0.36); Hemoglobin 8.1 g/dL (11.2-15.7); IMMATURE GRAN # 0.04 x10^3u/L (0.001-0.031); IMMATURE GRAN % 0.7 % (0.001-0.429); Lymphocyte (Absolute #) 1.04 x10^3/uL (1.18-3.74); Lymphocytes % 19.3 % (19.3-51.7); Mean Corpuscular Hemoglobin 28.8 pg (25.6-32.2); Mean Corpuscular Hgb Concent. 32.4 g/dL (32.2-35.5); Mean Platelet Volume 11.1 fL (9.4-12.3); Monocyte (Absolute #) 0.65 x10^3/uL (0.24-0.86); Monocytes % 12.1 % (4.7-12.5); Neutrophil % 63.2 % (34.0-71.1); Platelet Count 368 x10^3/uL (182-369); Red Blood Count 2.81 x10^6/uL (3.93-5.22); Red Cell Distribution Width 17.2 % (11.7-14.4); White Blood Count 5.4 x10^3/uL (3.98-10.04)
[2024-09-08 06:09] LABS: ANION GAP 13.6 MEQ/L (5-15); BILIRUBIN,TOTAL 0.6 mg/dL (0.2-1.3); Calcium 6.9 mg/dL (8.4-10.2); Creatinine 1 2.17 mg/dL (0.52-1.04); EST GLOMERULAR FILTRATION RATE 22.6 ML/MIN; Potassium 4.8 mmol/L (3.5-5.1); Total Protein 5.9 g/dL (6.3-8.2)
[2024-09-08 06:27] LABS: INR 3.2 (0.8-3.0); PROTIME 32.3 SECONDS (9.4-12.5)
[2024-09-08] MEDS: HUMALOG SQ SCH (12:53)
--- NOTE | 2024-09-09 05:22 | PCM.NOTE ---
Date and Time: 09/09/24 0521 Subjective Assessment: Ms. Magana is a 79-year-old woman with history of A-fib on Eliquis, CKD stage IV, hypertension, diabetes, COPD, hypothyroidism and HFpEF, who presents with sudden right thigh pain. Patient was in her usual state of health at the [facility] when she had the sudden onset of severe pain in her right thigh and hamstring. Denies any trauma or prior injury to this site. Denies any recent heavy exertion or use of the right leg. Pain occurred while at rest and was constant and unchanging. Patient states that the [facility] helps her with her medications and she has been compliant with all of them. Denies any numbness or tingling in the right foot. No distal edema. Admitted with acute right leg DVT - failed Eliquis OP. 09/05/24: Met with patient bedside. Pain in right thigh improved. Rating 5/10 on numerical pain scale. Spoke with nephrology (Giovanna Mooney) regarding patient's chronic hypocalcemia. Patient was recently seen in office and calcitrol was increased at that time to 1mcg, medication list from [facility] has her at 0.5mcg. Will confirm medication list today with [facility]. Increase calcitrol to 1 mcg, calcium gluconate 2g given this morning. May need additional dosing if not corrected. Patient asymptomatic. Creat is at baseline. INR at 1.30. Plan to continue heparin/coumadin bridge until patient in therapeutic range. Denies fever,cough, sob, cp, abdominal pain, PACK, dizziness, N/V/D. 09/06/24: Patient endorsing improved pain to RLE. Hemoglobin low at 6.2 and received 1 unit LBRBC. Calcium level low and received 2G calcium gluconate. INR at 1.73. Plan to continue heparin/coumadin bridge until therapeutic. 09/07/24: Met with patient bedside. No complaints this morning. Hgb stable at 8.8. INR now at therapeutic range at 2.3. Heparin drip has been discontinued. Calcium and creat levels improving. Occult stools positive. In the setting of newly diagnosed DVT with coumadin, will continue to monitor hgb levels- may consider transfer if patient is transfusion dependent for IVC and GI evaluation. 09/08/24: No overnight events noted. Patient states she is tired this morning otherwise doing well. Mild pain in her right upper thigh rating 3/10 on numerical pain scale. INR above therapeutic range. Plan to monitor patient over the weekend as there is question on whether to transfer to higher level of care for IVC due to anemia and positive occult stools. We are reluctant to discontinue coumadin as patient presented with severe pain to the right upper thigh. Hemoglobin is sta ble since transfusion two days ago. Plan to continue to monitor. 09/09/24: Patient doing well. INR at 3.38 and holding Coumadin today. Hgb has remained stable despite increase in INR. No active bleeding/easy bruising noted. Leg pain has resolved. Patient does need GI evaluation as OP for + occult stools. Plan to discharge to SNF tomorrow pending hgb/INR levels. - Review of Systems Constitutional: No Symptoms Eyes: No Symptoms Ears, Nose, & Throat: No Symptoms Respiratory: No Symptoms Cardiac: No Symptoms Abdominal/Gastrointestinal: No Symptoms Genitourinary Symptoms: No Symptoms Musculoskeletal: No Symptoms Skin: No Symptoms Neurological: No Symptoms Psychological: No Symptoms Endocrine: No Symptoms Hematologic/Lymphatic: Anemia Immunological/Allergic: No Symptoms Objective Exam General Appearance: no apparent distress Neurologic Exam: alert, oriented x 3, cooperative Skin Exam: ecchymosis (RLE) Wound Assessment: Skin/Wound Assessment Wound/Incision Assessment Start: 09/05/24 03:54 Text: Status: Active Freq: Q6H Protocol: Document 09/09/24 02:00 MP (Rec: 09/09/24 03:13 MP [id number]) Wound/Incision Assessment Right Buttock Wound Assessment Shift Assessment Wound Type dark area General Appearance Open to air,Clean/Dry Surrounding Tissue [place] Comment dark area to right buttock - surrounding area with blanchable erythema - turned to side with pillow support to offload pressure - barrier cream applied prn. Remains true. Wound Photo Photo Taken No Eye Exam: PERRL Ears, Nose, Throat Exam: normal ENT inspection Neck Exam: normal inspection Respiratory Exam: normal breath sounds, lungs clear Cardiovascular Exam: regular rate/rhythm, normal heart sounds Gastrointestinal/Abdomen Exam: soft, normal bowel sounds Extremity Exam: normal inspection, normal range of motion Back Exam: normal inspection, normal range of motion Pelvic Exam: deferred Rectal Exam: deferred Objective Data Vital Signs: Vital Signs - 24 hr Temp Pulse Resp BP Pulse Ox 09/09/24 04:00 97.3 F 64 18 99/64 98 09/09/24 02:00 20 09/08/24 23:48 97.1 F 72 20 133/62 97 09/08/24 20:00 20 09/08/24 19:12 97.6 F 72 20 130/66 97 09/08/24 17:54 74 18 96 09/08/24 16:00 97.7 F 71 18 129/75 99 09/08/24 12:00 96.8 F 67 19 179/69 99 09/08/24 07:21 97.1 F 71 22 137/65 98 09/08/24 05:22 66 16 97 Pain Assessment - Last Documented Pain Intensity 0 Pain Scale Used 0-10 Pain Scale Intake and Output: Intake & Output 09/06/24 09/07/24 09/08/24 09/09/24 11:59 11:59 11:59 11:59 Intake Total 684 1327 840 920 Output Total 350 1900 Balance 684 1327 490 -980 Weight 80.6 kg Lab Results: Lab Results-Last 24 Hours 09/08/24 09/08/24 09/08/24 Range/Units 05:50 05:50 05:50 WBC 5.4 (3.98-10.04) x10^3/uL RBC 2.81 L (3.93-5.22) x10^6/uL Hgb 8.1 L (11.2-15.7) g/dL Hct 25.0 L (34.1-44.9) % MCV 89.0 (79.4-94.8) fL MCH 28.8 (25.6-32.2) pg MCHC 32.4 (32.2-35.5) g/dL RDW 17.2 H (11.7-14.4) % Plt Count 368 (182-369) x10^3/uL MPV 11.1 (9.4-12.3) fL Gran % 63.2 (34.0-71.1) % Immature Gran % (Auto) 0.7 H (0.001-0.429) % Nucleat RBC Rel Count 0.0 (0.00-0.2) % Eos # (Auto) 0.23 (0.04-0.36) x10^3/uL Immature Gran # (Auto) 0.04 H (0.001-0.031) x10^3u/L Absolute Lymphs (auto) 1.04 L (1.18-3.74) x10^3/uL Absolute Monos (auto) 0.65 (0.24-0.86) x10^3/uL Absolute Nucleated RBC 0.00 (0.00-0.012) x10^3u/L Lymphocytes % 19.3 (19.3-51.7) % Monocytes % 12.1 (4.7-12.5) % Eosinophils % 4.3 (0.7-5.8) % Basophils % 0.4 (0.1-1.2) % Absolute Granulocytes 3.41 (1.56-6.13) x10^3/uL Basophils # 0.02 (0.01-0.08) x10^3/uL PT 32.3 H (9.4-12.5) SECONDS INR 3.20 H D (0.8-3.0) Sodium 135 (135-145) mmol/L Potassium 4.8 (3.5-5.1) mmol/L Chloride 103 (98-107) mmol/L Carbon Dioxide 24 (22-30) mmol/L Anion Gap 13.6 (5-15) MEQ/L BUN 57 H (7-17) mg/dL Creatinine 2.17 H (0.52-1.04) mg/dL Estimated GFR 22.6 ML/MIN Glucose 211 H (74-106) mg/dL POC Glucometer (74 to 106) mg/dL Calcium 6.9 L (8.4-10.2) mg/dL Total Bilirubin 0.60 (0.2-1.3) mg/dL AST 33 (14-36) U/L ALT 18 (0-35) U/L Alkaline Phosphatase 95 (38-126) U/L Serum Total Protein 5.9 L (6.3-8.2) g/dL Albumin 3.0 L (3.5-5.0) g/dL 09/08/24 09/08/24 09/08/24 Range/Units 07:19 11:45 17:02 WBC (3.98-10.04) x10^3/uL RBC (3.93-5.22) x10^6/uL Hgb (11.2-15.7) g/dL Hct (34.1-44.9) % MCV (79.4-94.8) fL MCH (25.6-32.2) pg MCHC (32.2-35.5) g/dL RDW (11.7-14.4) % Plt Count (182-369) x10^3/uL MPV (9.4-12.3) fL Gran % (34.0-71.1) % Immature Gran % (Auto) (0.001-0.429) % Nucleat RBC Rel Count (0.00-0.2) % Eos # (Auto) (0.04-0.36) x10^3/uL Immature Gran # (Auto) (0.001-0.031) x10^3u/L Absolute Lymphs (auto) (1.18-3.74) x10^3/uL Absolute Monos (auto) (0.24-0.86) x10^3/uL Absolute Nucleated RBC (0.00-0.012) x10^3u/L Lymphocytes % (19.3-51.7) % Monocytes % (4.7-12.5) % Eosinophils % (0.7-5.8) % Basophils % (0.1-1.2) % Absolute Granulocytes (1.56-6.13) x10^3/uL Basophils # (0.01-0.08) x10^3/uL PT (9.4-12.5) SECONDS INR (0.8-3.0) Sodium (135-145) mmol/L Potassium (3.5-5.1) mmol/L Chloride (98-107) mmol/L Carbon Dioxide (22-30) mmol/L Anion Gap (5-15) MEQ/L BUN (7-17) mg/dL Creatinine (0.52-1.04) mg/dL Estimated GFR ML/MIN Glucose (74-106) mg/dL POC Glucometer 272 H 357 H 75 (74 to 106) mg/dL Calcium (8.4-10.2) mg/dL Total Bilirubin (0.2-1.3) mg/dL AST (14-36) U/L ALT (0-35) U/L Alkaline Phosphatase (38-126) U/L Serum Total Protein (6.3-8.2) g/dL Albumin (3.5-5.0) g/dL 09/08/24 Range/Units 21:53 WBC (3.98-10.04) x10^3/uL RBC (3.93-5.22) x10^6/uL Hgb (11.2-15.7) g/dL Hct (34.1-44.9) % MCV (79.4-94.8) fL MCH (25.6-32.2) pg MCHC (32.2-35.5) g/dL RDW (11.7-14.4) % Plt Count (182-369) x10^3/uL MPV (9.4-12.3) fL Gran % (34.0-71.1) % Immature Gran % (Auto) (0.001-0.429) % Nucleat RBC Rel Count (0.00-0.2) % Eos # (Auto) (0.04-0.36) x10^3/uL Immature Gran # (Auto) (0.001-0.031) x10^3u/L Absolute Lymphs (auto) (1.18-3.74) x10^3/uL Absolute Monos (auto) (0.24-0.86) x10^3/uL Absolute Nucleated RBC (0.00-0.012) x10^3u/L Lymphocytes % (19.3-51.7) % Monocytes % (4.7-12.5) % Eosinophils % (0.7-5.8) % Basophils % (0.1-1.2) % Absolute Granulocytes (1.56-6.13) x10^3/uL Basophils # (0.01-0.08) x10^3/uL PT (9.4-12.5) SECONDS INR (0.8-3.0) Sodium (135-145) mmol/L Potassium (3.5-5.1) mmol/L Chloride (98-107) mmol/L Carbon Dioxide (22-30) mmol/L Anion Gap (5-15) MEQ/L BUN (7-17) mg/dL Creatinine (0.52-1.04) mg/dL Estimated GFR ML/MIN Glucose (74-106) mg/dL POC Glucometer 264 H (74 to 106) mg/dL Calcium (8.4-10.2) mg/dL Total Bilirubin (0.2-1.3) mg/dL AST (14-36) U/L ALT (0-35) U/L Alkaline Phosphatase (38-126) U/L Serum Total Protein (6.3-8.2) g/dL Albumin (3.5-5.0) g/dL Assessment/Plan (1) Right leg DVT Current Visit: Yes Status: Acute Assessment & Plan: causing severe pain, and confirmed on ultrasound, despite patient being on Eliquis. No evidence of compartment syndrome, distal motor and sensory appears to be intact. There are limited options if patient has had treatment failure with Eliquis. The other direct oral anticoagulants have not been as well studied in patients with severe renal failure as compared to Eliquis. Patient most likely needs a transition to warfarin therapy, although this will be difficult with her many other current medications and likelihood of multi drug drug interactions. Given acute nature of the DVT and the patient severe pain, will also need heparin bridging. Continue heparin drip/coumadin bridge -pharmacy following Follow INR daily Discontinue Eliquis 09/06: -INR reviewed at 1.73 -pharmacy dosing coumadin with bridging heparin 09/07: -INR reviewed and at therapeutic range at 2.3 - Heparin drip d/cd 09/08: -INR reviewed at 3.2- pharmacy managing coumadin -Pain controlled -Consider transfer for IVC if patient becomes transfusion dependent 09/09: -INR at 3.38- holding coumadin today -Hgb reviewed and stable at 8.6 Code(s): I82.401 - ACUTE EMBOLISM AND THOMBOS UNSP DEEP VEINS OF R LOW EXTREM (2) Type 2 diabetes mellitus Current Visit: Yes Status: Acute Assessment & Plan: -ADA diet -SSI/meal time insulin -A1c (3) Afib Current Visit: Yes Status: Acute Assessment & Plan: Continue dronedarone 400 mg BID Transitioning anticoagulation from Eliquis to warfarin, with heparin bridge Continue Coreg 12.5 BID 09/08: -continue coumadin 09/09: -Holding coumadin with INR at 3.38 Code(s): I48.91 - UNSPECIFIED ATRIAL FIBRILLATION (4) CHF (congestive heart failure) Current Visit: Yes Status: Acute Assessment & Plan: Continue Lasix 20 mg daily Code(s): I50.9 - HEART FAILURE, UNSPECIFIED (5) Hypocalcemia Current Visit: Yes Status: Acute Assessment & Plan: Follow BMP, especially with setting of CKD stage IV. chronic for patient. Does not appear to be have any symptoms currently - takes calcitrol 0.1mcg daily per nephrology -calcium reviewed at 5.1 -correct for albuminemia at 6.1- overnight provider ordered calcium gluconate 2g -monitor closely 09/06: -2G calcium gluconate infused -Ca level reviewed with minimal improvement at 5.8- corrected calcium at 6.8- monitor closely 09/07: -Calcium level improving with corrected calcium at 7.1 - will give 2g of calcium gluconate today and continue calcitrol 09/08: -Calcium level reviewed - corrected calcium at 7.7- continue calcitrol 1mcg 09/09: -Calcium level reviewed at 6.9 -continue calcitrol - add 2g calcium gluconate x 1 dose Code(s): E83.51 - HYPOCALCEMIA (6) HTN (hypertension) Current Visit: Yes Status: Acute Assessment & Plan: Continue amlodipine 2.5 mg daily, carvedilol 12.5 mg BID, losartan 25 mg daily - hold if hypotensive Code(s): I10 - ESSENTIAL (PRIMARY) HYPERTENSION (7) CKD (chronic kidney disease) stage 4, GFR 15-29 ml/min Current Visit: No Status: Acute Assessment & Plan: -Spoke with nephrology - baseline around 2.4 -Creat reviewed at 2.33 - patient at baseline -Monitor renal/lytes -Avoid nephrotoxic agents 09/06: -Creat reviewed at 2.32- baseline 09/07: -creat reviewed at 2.14- better than baseline - continue to monitor renal/lytes daily 09/08: -Creat reviewed at 2.17- better than baseline -continue to monitor renal/lytes daily 09/09: -Creat reviewed 2.20 -baseline 2.4 Code(s): N18.4 - CHRONIC KIDNEY DISEASE, STAGE 4 (SEVERE) (8) UTI (urinary tract infection) Current Visit: Yes Status: Acute Assessment & Plan: -Per [place] records - recent hospitalization at [facility] - on Merem until 09/08/24 -will continue- renal dosing with [facility] pharmacist verified 09/06: -WBC reviewed and WNL at 7.7 09/08: -last of Merem today per [facility] records Code(s): N39.0 - URINARY TRACT INFECTION, SITE NOT SPECIFIED (9) Anemia Current Visit: Yes Status: Chronic Assessment & Plan: -Chronic most likely secondary to CKD -iron studies -Hgb at 7.3 on redraw- will monitor and replace if hgb < 7 09/06: -Hgb reviwed at transfuse 1 units LPRBC 09/07: -Hgb reviewed and stable at 8.8 -occult stools + - may consider transfer if hgb does not remain stable - patient may need IVC filter and GI consult 09/08: -Hgb reviewed and stable at 8.1 09/09: -Hgb stable at 8.6 CODE STATUS: Full code Prophylaxis: coumadin Diet: Diabetic, 2 g sodium Dispo: Admit to inpatient for bridging with heparin drip Code(s): I82.401 - ACUTE EMBOLISM AND THOMBOS UNSP DEEP VEINS OF R LOW EXTREM (2) Type 2 diabetes mellitus Current Visit: Yes Status: Acute (3) Afib Current Visit: Yes Status: Acute Code(s): I48.91 - UNSPECIFIED ATRIAL FIBRILLATION (4) CHF (congestive heart failure) Current Visit: Yes Status: Acute Code(s): I50.9 - HEART FAILURE, UNSPECIFIED (5) Hypocalcemia Current Visit: Yes Status: Acute Code(s): E83.51 - HYPOCALCEMIA (6) HTN (hypertension) Current Visit: Yes Status: Acute Code(s): I10 - ESSENTIAL (PRIMARY) HYPERTENSION (7) CKD (chronic kidney disease) stage 4, GFR 15-29 ml/min Current Visit: No Status: Acute Code(s): N18.4 - CHRONIC KIDNEY DISEASE, STAGE 4 (SEVERE) (8) UTI (urinary tract infection) Current Visit: Yes Status: Acute Code(s): N39.0 - URINARY TRACT INFECTION, SITE NOT SPECIFIED (9) Anemia Current Visit: Yes Status: Chronic Code(s): D64.9 - ANEMIA, UNSPECIFIED
[2024-09-09 05:55] LABS: Absolute Neutrophil Ct (ANC) 3.53 x10^3/uL (1.56-6.13); BASOPHIL % 0.4 % (0.1-1.2); Basophil (Absolute #) 0.02 x10^3/uL (0.01-0.08); Eosinophil % 5.5 % (0.7-5.8); Hematocrit 25.9 % (34.1-44.9); Hemoglobin 8.6 g/dL (11.2-15.7); IMMATURE GRAN # 0.03 x10^3u/L (0.001-0.031); IMMATURE GRAN % 0.6 % (0.001-0.429); Lymphocyte (Absolute #) 0.88 x10^3/uL (1.18-3.74); Lymphocytes % 16.2 % (19.3-51.7); Mean Cell Volume 89.3 fL (79.4-94.8); Mean Corpuscular Hemoglobin 29.7 pg (25.6-32.2); Mean Corpuscular Hgb Concent. 33.2 g/dL (32.2-35.5); Monocyte (Absolute #) 0.67 x10^3/uL (0.24-0.86); Monocytes % 12.3 % (4.7-12.5); Platelet Count 346 x10^3/uL (182-369); White Blood Count 5.4 x10^3/uL (3.98-10.04)
[2024-09-09 06:05] LABS: ALBUMIN 3.1 g/dL (3.5-5.0); ANION GAP 12.2 MEQ/L (5-15); BILIRUBIN,TOTAL 0.5 mg/dL (0.2-1.3); Calcium 6.9 mg/dL (8.4-10.2); Creatinine 1 2.2 mg/dL (0.52-1.04); EST GLOMERULAR FILTRATION RATE 22.3 ML/MIN; Potassium 4.4 mmol/L (3.5-5.1); Total Protein 6.1 g/dL (6.3-8.2)
[2024-09-09 06:06] LABS: INR 3.38 (0.8-3.0)
[2024-09-09] MEDS: CALCIUM GLUCONATE IV SCH (10:53)
[2024-09-09] MEDS: SODIUM CHLORIDE MINI IV SCH (10:53)
[2024-09-09] MEDS: CALCIUM GLUCONATE IV ONE (11:39)
[2024-09-09] MEDS: SODIUM CHLORIDE 0.9% IV ONE (11:39)
[2024-09-09] MEDS: FLUTICASONE-SALMETEROL 250-50 IH SCH (19:17)
[2024-09-10 04:33] LABS: Absolute Neutrophil Ct (ANC) 3.05 x10^3/uL (1.56-6.13); BASOPHIL % 0.4 % (0.1-1.2); Basophil (Absolute #) 0.02 x10^3/uL (0.01-0.08); Eosinophil % 6.8 % (0.7-5.8); Eosinophil (Absolute #) 0.35 x10^3/uL (0.04-0.36); Hematocrit 26.3 % (34.1-44.9); Hemoglobin 8.3 g/dL (11.2-15.7); IMMATURE GRAN # 0.03 x10^3u/L (0.001-0.031); IMMATURE GRAN % 0.6 % (0.001-0.429); Lymphocyte (Absolute #) 1.04 x10^3/uL (1.18-3.74); Lymphocytes % 20.1 % (19.3-51.7); Mean Corpuscular Hemoglobin 28.7 pg (25.6-32.2); Mean Corpuscular Hgb Concent. 31.6 g/dL (32.2-35.5); Mean Platelet Volume 11.1 fL (9.4-12.3); Monocyte (Absolute #) 0.68 x10^3/uL (0.24-0.86); Monocytes % 13.2 % (4.7-12.5); Neutrophil % 58.9 % (34.0-71.1); Platelet Count 351 x10^3/uL (182-369); Red Blood Count 2.89 x10^6/uL (3.93-5.22); Red Cell Distribution Width 16.9 % (11.7-14.4); White Blood Count 5.2 x10^3/uL (3.98-10.04)
[2024-09-10 04:47] LABS: ALBUMIN 3.1 g/dL (3.5-5.0); ANION GAP 13.7 MEQ/L (5-15); BILIRUBIN,TOTAL 0.5 mg/dL (0.2-1.3); Calcium 7.6 mg/dL (8.4-10.2); Creatinine 1 2.13 mg/dL (0.52-1.04); EST GLOMERULAR FILTRATION RATE 23.1 ML/MIN; INR 2.72 (0.8-3.0); PROTIME 27.8 SECONDS (9.4-12.5); Potassium 4.4 mmol/L (3.5-5.1); Total Protein 6.2 g/dL (6.3-8.2)
--- NOTE | 2024-09-10 11:22 | XRAY ---
Indication: Swelling. Two-dimensional sonogram and color Doppler imaging major views vessels right upper extremity performed. Comparison: None Nonvisualization mid to distal brachial vein due to indwelling PICC line and overlying bandage material. No thrombus seen in the visualized right internal jugular, subclavian, axillary, proximal brachial, basilic, cephalic, radial, and ulnar veins. Patent veins demonstrate normal compressibility and normal venous waveforms. Impression: Nonvisualization mid to distal brachial vein as detailed. Remaining right upper extremity negative for venous thrombosis.
--- NOTE | 2024-09-10 11:57 | PCM.DS ---
Discharge Summary Date of Admission: 09/03/24 23:47 Date of Discharge: 09/10/24 Admitting Physician: ARLYN KINGSTON MD Consults: Consults on Case 09/03/24 23:55 Nutritional Consult ROUTINE Primary Care Provider: ARIEL,JOE Allergies Allergies albuterol Allergy (Intermediate, Verified 07/21/24 12:36) Swelling of Tongue and Lips propranolol [From Inderal LA] Allergy (Intermediate, Verified 07/21/24 12:36) red face and ears levofloxacin [From Levaquin] Allergy (Unknown, Verified 07/21/24 12:36) clonazepam [From Klonopin] Allergy (Verified 07/21/24 12:36) Tightness of Throat tongue swollen metoclopramide [From Reglan] Allergy (Verified 07/21/24 12:36) propranolol HCl [From Inderal LA] Allergy (Verified 07/21/24 12:36) Swelling of Tongue and Lips red face and ears [id number] Reductase Inhibitor Allergy (Verified 07/21/24 12:36) Wheezing Sulfa (Sulfonamide Antibiotics) Allergy (Verified 07/21/24 12:36) Swelling of Tongue and Lips throat swell,ears red terfenadine Allergy (Verified 07/21/24 12:36) venom-honey bee [bee venom (honey bee)] Allergy (Verified 07/21/24 12:36) Hives large hives wheat Allergy (Verified 07/21/24 12:36) zanamivir [From Relenza Diskhaler] Allergy (Verified 07/21/24 12:36) Swelling of Tongue and Lips throat tightness cilostazol [From Pletal] Adverse Reaction (Severe, Verified 07/21/24 12:36) Swelling of Tongue and Lips ticagrelor [From Brilinta] Adverse Reaction (Severe, Verified 07/21/24 12:36) Swelling of Tongue and Lips Hospital Summary - Hospital Course Hospital Course: Ms. Magana is a 79-year-old woman with a history of A-fib on Eliquis, CKD stage IV, hypertension, diabetes, COPD, hypothyroidism, and HFpEF. She presented on09/04 with sudden severe right thigh pain while at rest. She denied any trauma, exertion, or injury to the area and did not report any numbness, tingling, or distal edema. She was admitted with an acute right leg DVT after failing Eliquis outpatient therapy. On 09/05/24, her right thigh pain had improved, and nephrology was consulted regarding her chronic hypocalcemia, adjusting her calcitriol dose. Calcium gluconate was administered, and she was started on a heparin/coumadin bridge. By 09/06/24, her pain was improved, but she had a low hemoglobin level of 6.2, for which she received 1 unit of LBRBC. Her INR was 1.73, and the heparin/coumadin bridge continued. On 09/07/24, her hemoglobin stabilized at 8.8, INR was therapeutic at 2.3, and the heparin drip was discontinued. Occult stools were positive, and her condition was closely monitored. On 09/08/24, the patient experienced mild right thigh pain (3/10), and her INR was above therapeutic range. Her hemoglobin remained stable, and the team discussed the possibility of transferring her for an IVC and GI evaluation due to anemia and positive occult stools. On 09/09/24, the patient was doing well, with an INR of 3.38 and stable hemoglobin. Leg pain had resolved, and the plan is to discharge her to a senior living facility today. Hemoglobin and INR levels stable today. A GI evaluation will need to be planned OP due to the positive occult stools. Will also refer to hematology OP. Today her RUE had + 3 edema and US completed and negative for DVT. She will need repeat labs tomorrow at the [facility] to manage coumadin. Rechecking urine today. She has a midline and PICC line. Will d/c both if UA negative. If + will keep PICC line for OP antibiotics. Repeat UA reviewed and UC pending. Will follow UC OP. Will continue Merrem O P via PICC and d/c midline. Pt to have OP infectious disease referral. - Vitals & Intake/Output Vital Signs: Vital Signs Temperature 97.6 F 09/10/24 11:48 Pulse Rate 89 09/10/24 11:48 Respiratory Rate 18 09/10/24 11:48 Blood Pressure 137/65 09/10/24 11:48 O2 Sat by Pulse Oximetry 97 09/10/24 11:48 Intake & Output: Intake & Output 09/07/24 09/08/24 09/09/24 09/10/24 11:59 11:59 11:59 11:59 Intake Total 9777 070 0337 1540 Output Total 350 1900 Balance 1327 490 -530 1540 - Lab Result Diagrams: 09/10/24 04:15 09/10/24 04:15 Lab Results-Last 24 Hrs: Lab Results-Last 24 Hours 09/09/24 09/09/24 09/10/24 Range/Units 16:41 21:11 04:15 WBC 5.2 (3.98-10.04) x10^3/uL RBC 2.89 L (3.93-5.22) x10^6/uL Hgb 8.3 L (11.2-15.7) g/dL Hct 26.3 L (34.1-44.9) % MCV 91.0 (79.4-94.8) fL MCH 28.7 (25.6-32.2) pg MCHC 31.6 L (32.2-35.5) g/dL RDW 16.9 H (11.7-14.4) % Plt Count 351 (182-369) x10^3/uL MPV 11.1 (9.4-12.3) fL Gran % 58.9 (34.0-71.1) % Immature Gran % (Auto) 0.6 H (0.001-0.429) % Nucleat RBC Rel Count 0.0 (0.00-0.2) % Eos # (Auto) 0.35 (0.04-0.36) x10^3/uL Immature Gran # (Auto) 0.03 (0.001-0.031) x10^3u/L Absolute Lymphs (auto) 1.04 L (1.18-3.74) x10^3/uL Absolute Monos (auto) 0.68 (0.24-0.86) x10^3/uL Absolute Nucleated RBC 0.00 (0.00-0.012) x10^3u/L Lymphocytes % 20.1 (19.3-51.7) % Monocytes % 13.2 H (4.7-12.5) % Eosinophils % 6.8 H (0.7-5.8) % Basophils % 0.4 (0.1-1.2) % Absolute Granulocytes 3.05 (1.56-6.13) x10^3/uL Basophils # 0.02 (0.01-0.08) x10^3/uL PT (9.4-12.5) SECONDS INR (0.8-3.0) Sodium (135-145) mmol/L Potassium (3.5-5.1) mmol/L Chloride (98-107) mmol/L Carbon Dioxide (22-30) mmol/L Anion Gap (5-15) MEQ/L BUN (7-17) mg/dL Creatinine (0.52-1.04) mg/dL Estimated GFR ML/MIN Glucose (74-106) mg/dL POC Glucometer 83 233 H (74 to 106) mg/dL Calcium (8.4-10.2) mg/dL Total Bilirubin (0.2-1.3) mg/dL AST (14-36) U/L ALT (0-35) U/L Alkaline Phosphatase (38-126) U/L Serum Total Protein (6.3-8.2) g/dL Albumin (3.5-5.0) g/dL 09/10/24 09/10/24 09/10/24 Range/Units 04:15 04:15 07:09 WBC (3.98-10.04) x10^3/uL RBC (3.93-5.22) x10^6/uL Hgb (11.2-15.7) g/dL Hct (34.1-44.9) % MCV (79.4-94.8) fL MCH (25.6-32.2) pg MCHC (32.2-35.5) g/dL RDW (11.7-14.4) % Plt Count (182-369) x10^3/uL MPV (9.4-12.3) fL Gran % (34.0-71.1) % Immature Gran % (Auto) (0.001-0.429) % Nucleat RBC Rel Count (0.00-0.2) % Eos # (Auto) (0.04-0.36) x10^3/uL Immature Gran # (Auto) (0.001-0.031) x10^3u/L Absolute Lymphs (auto) (1.18-3.74) x10^3/uL Absolute Monos (auto) (0.24-0.86) x10^3/uL Absolute Nucleated RBC (0.00-0.012) x10^3u/L Lymphocytes % (19.3-51.7) % Monocytes % (4.7-12.5) % Eosinophils % (0.7-5.8) % Basophils % (0.1-1.2) % Absolute Granulocytes (1.56-6.13) x10^3/uL Basophils # (0.01-0.08) x10^3/uL PT 27.8 H (9.4-12.5) SECONDS INR 2.72 (0.8-3.0) Sodium 132 L (135-145) mmol/L Potassium 4.4 (3.5-5.1) mmol/L Chloride 101 (98-107) mmol/L Carbon Dioxide 22 (22-30) mmol/L Anion Gap 13.7 (5-15) MEQ/L BUN 51 H (7-17) mg/dL Creatinine 2.13 H (0.52-1.04) mg/dL Estimated GFR 23.1 ML/MIN Glucose 180 H (74-106) mg/dL POC Glucometer 316 H (74 to 106) mg/dL Calcium 7.6 L (8.4-10.2) mg/dL Total Bilirubin 0.50 (0.2-1.3) mg/dL AST 50 H (14-36) U/L ALT 23 (0-35) U/L Alkaline Phosphatase 96 (38-126) U/L Serum Total Protein 6.2 L (6.3-8.2) g/dL Albumin 3.1 L (3.5-5.0) g/dL 09/10/24 09/10/24 Range/Units 08:58 11:24 WBC (3.98-10.04) x10^3/uL RBC (3.93-5.22) x10^6/uL Hgb (11.2-15.7) g/dL Hct (34.1-44.9) % MCV (79.4-94.8) fL MCH (25.6-32.2) pg MCHC (32.2-35.5) g/dL RDW (11.7-14.4) % Plt Count (182-369) x10^3/uL MPV (9.4-12.3) fL Gran % (34.0-71.1) % Immature Gran % (Auto) (0.001-0.429) % Nucleat RBC Rel Count (0.00-0.2) % Eos # (Auto) (0.04-0.36) x10^3/uL Immature Gran # (Auto) (0.001-0.031) x10^3u/L Absolute Lymphs (auto) (1.18-3.74) x10^3/uL Absolute Monos (auto) (0.24-0.86) x10^3/uL Absolute Nucleated RBC (0.00-0.012) x10^3u/L Lymphocytes % (19.3-51.7) % Monocytes % (4.7-12.5) % Eosinophils % (0.7-5.8) % Basophils % (0.1-1.2) % Absolute Granulocytes (1.56-6.13) x10^3/uL Basophils # (0.01-0.08) x10^3/uL PT (9.4-12.5) SECONDS INR (0.8-3.0) Sodium (135-145) mmol/L Potassium (3.5-5.1) mmol/L Chloride (98-107) mmol/L Carbon Dioxide (22-30) mmol/L Anion Gap (5-15) MEQ/L BUN (7-17) mg/dL Creatinine (0.52-1.04) mg/dL Estimated GFR ML/MIN Glucose (74-106) mg/dL POC Glucometer 384 H 309 H (74 to 106) mg/dL Calcium (8.4-10.2) mg/dL Total Bilirubin (0.2-1.3) mg/dL AST (14-36) U/L ALT (0-35) U/L Alkaline Phosphatase (38-126) U/L Serum Total Protein (6.3-8.2) g/dL Albumin (3.5-5.0) g/dL Micro Results-Entire Visit: Accuchecks Date 09/10/24 Date 09/09/24 Date 09/09/24 Date 09/09/24 Time 21:35 Time 21:35 Time 17:06 - Radiology Exams Ordered Rad Exams-Entire Visit: Radiology Procedures Category Date Time Status Ultrasound Unilateral Extremities [VENOUS UNILAT/ Exams 09/10/24 08:09 Completed LIMITED EXTREMIT] [US] Urgent - Procedures and Test Procedures and Tests throughout Hospitalization: Therapy Orders & Screens 09/04/24 09:00 OT Screen per Nursing Assess ONCE Comment: Protocol Order Physician Instructions: Greater than 3 points order OT Admission Screening Reason For Exam: Triggered on Admission Diagnosis: DVT RIGHT UPPER THIGH Open Wound/Cellutlitis/Pressure Ulcers: No Acute Fx/ORIF/Change in wt bearing status: No Severe MUSCULOSKELETAL pain: No ADL Dysfunction: Yes Acute CVA w/Hemiparesis/Hemiplegia: No Decreased Functional Mobility/Strength: Yes Sprain/Strain: No Acute Post-op Mobility Dysfunction: No Total Points: 4 PT Screen per Nursing Assess ONCE Comment: Protocol Order Physician Instructions: Greater than 3 points order PT Admission Screenin Reason For Exam: Triggered on Admission Diagnosis: DVT RIGHT UPPER THIGH Open Wound/Cellutlitis/Pressure Ulcers: No Acute Fx/ORIF/Change in wt bearing status: No Severe MUSCULOSKELETAL pain: No ADL Dysfunction: Yes Acute CVA w/Hemiparesis/Hemiplegia: No Decreased Functional Mobility/Strength: Yes Sprain/Strain: No Acute Post-op Mobility Dysfunction: No Total Points: 4 09/04/24 09:30 Respiratory Therapy Assessment DAILY Comment: Diagnosis: Right thigh pain 09/09/24 19:19 Respiratory MDI BID Comment: ADVAIR 250/50 1 PUFF BID Diagnosis: Right thigh pain Discharge Exam General Appearance: no apparent distress, alert, obese Neurologic Exam: alert, oriented x 3, cooperative, normal mood/affect, nml cerebellar function, sensation nml, No motor deficits Eye Exam: PERRL, EOMI, eyes nml inspection Ears, Nose, Throat Exam: normal ENT inspection, pharynx normal, moist mucous membranes Neck Exam: normal inspection, non-tender, supple, full range of motion Respiratory Exam: normal breath sounds, lungs clear, No respiratory distress Cardiovascular Exam: regular rate/rhythm, normal heart sounds Gastrointestinal/Abdomen Exam: soft, No tenderness, No mass Pelvic Exam: deferred Rectal Exam: deferred Back Exam: normal inspection, normal range of motion, No CVA tenderness, No vertebral tenderness Extremity Exam: normal inspection, normal range of motion, swelling (RUE) Skin Exam: normal color, warm, dry Wound Assessment: Skin/Wound Assessment Wound/Incision Assessment Start: 09/05/24 03:54 Text: Status: Active Freq: Q6H Protocol: Document 09/10/24 08:00 EK (Rec: 09/10/24 10:57 EK [id number]) Wound/Incision Assessment Right Buttock Wound Assessment Shift Assessment Wound Type NON BLANCHABLE DARKENED AREA Wound Stage Deep Tissue Injury General Appearance Open to air Comment PROVIDING PATIENT WITH ASSISTANCE OF REPOSITIONING AND BARRIER CREAM EVERY 2 HOURS AND NEEDED - SKIN REMAINS INTACT Wound Photo Photo Taken No Final Diagnosis/Problem List - Final Discharge Diagnosis/Problem (1) Right leg DVT Current Visit: Yes Status: Acute Assessment & Plan: - Pharmacy management of Coumadin - PT/INR reviewed - Confirmed by US - Will need OP labs tomorrow for Coumadin management Code(s): I82.401 - ACUTE EMBOLISM AND THOMBOS UNSP DEEP VEINS OF R LOW EXTREM (2) Afib Current Visit: Yes Status: Chronic Assessment & Plan: - tele Continue dronedarone 400 mg BID Transitioned anticoagulation from Eliquis to warfarin, with heparin bridge Continue Coreg 12.5 BID - Now on warfarin- with pharmacy management Code(s): I48.91 - UNSPECIFIED ATRIAL FIBRILLATION (3) Edema of right upper extremity Current Visit: Yes Status: Acute Assessment & Plan: - US negative for DVT Code(s): R60.0 - LOCALIZED EDEMA (4) Occult blood positive stool Current Visit: Yes Status: Acute Assessment & Plan: - OP f/u appointment with [facility] made - Hgb stable (5) CHF (congestive heart failure) Current Visit: Yes Status: Chronic Assessment & Plan: Continue Lasix 20 mg daily - not in acute exacerbation Code(s): I50.9 - HEART FAILURE, UNSPECIFIED (6) HTN (hypertension) Current Visit: Yes Status: Acute Code(s): I10 - ESSENTIAL (PRIMARY) HYPERTENSION (7) Hypocalcemia Current Visit: Yes Status: Acute Code(s): E83.51 - HYPOCALCEMIA (8) Type 2 diabetes mellitus Current Visit: Yes Status: Chronic Assessment & Plan: -ADA diet -SSI/meal time insulin -A1c 7.77 09/05/24- controlled - carb controlled diet (9) Anemia Current Visit: Yes Status: Chronic Assessment & Plan: - 2:2 CKD - Hgb stable, CBC, reviewed - 09/06 received 1 unit PRBC per records - F/u OP with [facility] for colonoscopy Code(s): D64.9 - ANEMIA, UNSPECIFIED (10) CKD (chronic kidney disease) stage 4, GFR 15-29 ml/min Current Visit: No Status: Chronic Assessment & Plan: - at baseline renal function - f/u with nephrology OP Code(s): N18.4 - CHRONIC KIDNEY DISEASE, STAGE 4 (SEVERE) (11) Complicated UTI (urinary tract infection) Current Visit: Yes Status: Chronic Assessment & Plan: - Merrem completed 09/08- IP - repeat UA ordered today- will continue Merrem OP via PICC- Infectious disease referral placed - Merrem 500mg BID for CKD dosing as she was on before - consider d/c midline and PICC line prior to d/c. Code(s): N39.0 - URINARY TRACT INFECTION, SITE NOT SPECIFIED (12) Hypocalcemia Current Visit: Yes Status: Chronic Assessment & Plan: - Corrected Calcium 7.9 today - Continue home med Code(s): E83.51 - HYPOCALCEMIA - Discharge Discharge Date: 09/10/24 ([facility]) Disposition: XFER OTHER Condition: Fair Prescriptions: New Warfarin Sodium 2 mg [Coumadin 2 MG] 4 mg PO COU 30 Days #30 tablet Famotidine 20 mg [Pepcid 20 MG] 20 mg PO BID tablet Pantoprazole 20 mg [Protonix 20MG Tablet] 20 mg PO BID 30 Days #60 tab Continue Clopidogrel Bisulfate [PLAVIX Tablet] 75 mg PO DAILY Furosemide 20 mg [Lasix 20 mg] 20 mg PO DAILY Prednisone 20 mg [Deltasone 20 mg] 40 mg PO DAILY calcitrioL [Calcitriol] 0.5 mcg PO DAILY Tamsulosin HCl 0.4 mg [Flomax 0.4 MG] 1 cap PO BID Pregabalin 50 mg [Lyrica 50MG] 1 cap PO DAILY Montelukast Sodium 10 mg [Singulair 10 MG] 1 tab PO DAILY Menthol [Biofreeze] 1 each TP BID Melatonin 3 mg PO HS Losartan Potassium 12.5 mg PO DAILY Loperamide HCl [Imodium A-D] 2 mg PO Q8H PRN PRN PRN Reason: Diarrhea Levothyroxine Sodium 25 Mcg [Synthroid 25 Mcg] 225 mcg PO DAILY Lactobacillus Acidophilus [Acidophilus TABLET] 1 tab PO DAILY Insulin Lispro [Humalog Kwikpen U-100] See Rx Instructions .ROUTE .COMPLEX Folic Acid 1 mg [Folate 1 mg] 1 tab PO DAILY Fluticasone Propion/Salmeterol [Fluticasone-Salmeterol 250-50] 1 each IH BID Ferrous Sulfate 325 mg [Feosol 325 mg] 1 tab PO BID Dronedarone Hydrochloride 400* [Multaq 400 MG] 1 tab PO BID Cyanocobalamin 1000 Mcg/ml [Cyanocobalamin B-12 1000 MCG/ML] 1 tab PO DAILY Cranberry Fruit Extract [Cranberry] 300 mg PO BID Cholecalciferol (Vitamin D3) [Vitamin D] 50,000 unit PO WEEKLY Cetirizine HCl 10 mg PO DAILY Carvedilol 12.5 mg [Coreg 12.5 mg] 1 tab PO BID Calcium Carbonate 750 mg [Tums EX 750 MG] 1 tab PO QID Buspirone HCl 5 mg [Buspar 5 mg] 10 mg PO BID Blood-Glucose Sensor [Dexcom G6 Sensor] 1 each SQ WEEKLY Aspirin 81 gm Chew [Baby Aspirin 81 mg Chew] 1 tab PO DAILY Apixaban [Eliquis] 1 tab PO BID Amlodipine Besylate 2.5 mg PO DAILY Changed Famotidine 20 mg [Pepcid 20 MG] 1 tab PO BID PRN PRN 60 Days #30 tablet PRN Reason: Indigestion Discontinued Meropenem [Merrem] 500 mg IV BID Additional Instructions: Records are being sent to [facility] for follow up. Office will call patient with appointment. LONG TERM ORDERS: RESUME PREVIOUS [facility] ORDERS RECHECK INR 09/11- SNF TO TAKE OVER COUMADIN MANAGEMENT SEE ATTACHED MED LIST Follow up with: GRUPO MACEDO [NON-STAFF PHY W/O PRIVILEGES] - 09/12/24 2:00 pm
[2024-09-10 14:04] LABS: Appearance Cloudy (Clear); Bacteria Rare /HPF (None Seen); Bilirubin Negative (Negative); Blood Small (Negative); Epithelial Cells Many /HPF (None Seen); Glucose, Urine 500 mg/dL (Negative); Ketones Negative (Negative); Leukocyte Esterase Large (Negative); Nitrite Negative (Negative); Ph 5.5 (4.6-8.0); Protein,Urine Dip 30 (Negative); RBC >100 /HPF (0-5); Urobilinogen 0.2 mg/dL (0.2); WBC >100 /HPF (0-5)
[2024-09-10 14:06] LABS: Budding Yeast Few /HPF (None Seen)
[2024-09-10 16:58] VITALS: BP 126/64; PULSE 80; RESP 18; TEMP 97.4; O2SAT 98
[2024-09-10] MEDS ORDERED: MERREM 500 MG in Sodium Chloride 100ML MINI-BAG PLUS 100 ML IV SCH (18:00)
[2024-09-10] MEDS ORDERED: Coumadin 2 MG PO SCH (18:00)
== END 2024-09-10 17:10 | DRG 300 ==
LOC: ED 17:15 → ICU 23:47 → MED SURG 09-07 13:20
PROVIDERS: ADMIT Internal Medicine; ATTEND Internal Medicine
PROC: 05HC33Z Insertion of Infusion Device into Left Basilic Vein, Percutaneous Approach (ICD-10-PCS; principal; 2024-09-04)
DX: I82.401 Acute embolism and thrombosis of unspecified deep veins of right lower extremity (principal); I13.0 Hypertensive heart and chronic kidney disease with heart failure and stage 1 through stage 4 chronic kidney disease, or unspecified chronic kidney disease; N18.4 Chronic kidney disease, stage 4 (severe); N39.0 Urinary tract infection, site not specified; I48.91 Unspecified atrial fibrillation; R60.0 Localized edema; R19.5 Other fecal abnormalities; D64.9 Anemia, unspecified; I25.2 Old myocardial infarction; E11.22 Type 2 diabetes mellitus with diabetic chronic kidney disease; I50.9 Heart failure, unspecified; E83.51 Hypocalcemia; Z79.899 Other long term (current) drug therapy; Z79.01 Long term (current) use of anticoagulants; Z85.3 Personal history of malignant neoplasm of breast
CPT/HCPCS: 36410; 36415; 36430; 73552; 80048; 80053; 81001; 82274; 82607; 82728; 82746; 82947; 83036; 83540; 83550; 83735; 83970; 85014; 85018; 85025; 85027; 85379; 85610; 85730; 86850; 86900; 86901; 86922; 87077; 87086; 87186; 93971; 94640; 94760; 94762; 96374; 96375; 96376; 99285; J0612; J1644; J1817; J2270; J2405; P9016; Q3014; A9270-GY; G0328

== ENCOUNTER 2024-11-18 11:48 | Observation (INO) | payer MEDICARE, OTHER ==
[2024-11-18] MEDS ORDERED: DUONEB 0.5-3 MG/3 ml Neb IH ONE (11:54)
[2024-11-18] MEDS: DUONEB 0.5-3 MG/3 ml Neb IH ONE (11:55)
[2024-11-18] MEDS ORDERED: Sodium Chloride 3 ML UD NEBULES IH ONE (12:03)
[2024-11-18] MEDS ORDERED: Sterile H2O 10 ml IJ ONE (12:03)
[2024-11-18] MEDS ORDERED: Racepinephrine INH Solution 2.25% IH ONE (12:03)
[2024-11-18] MEDS ORDERED: BENADRYL 50 MG/ML ONE (12:04)
[2024-11-18] MEDS ORDERED: solu-MEDROL ONE (12:04)
[2024-11-18] MEDS: Racepinephrine INH Solution 2.25% IH ONE (12:05)
[2024-11-18] MEDS ORDERED: Pepcid 20 MG VIAL IV ONE (12:07)
[2024-11-18] MEDS: BENADRYL 50 MG/ML IV ONE (12:09)
[2024-11-18] MEDS: Pepcid 20 MG VIAL IV ONE (12:10)
[2024-11-18] MEDS: solu-MEDROL 125 MG, Sterile H2O 10 ml 2 ML IV ONE (12:10)
[2024-11-18] MEDS ORDERED: FEVERALL 325 MG ONE (12:26)
[2024-11-18] MEDS: FEVERALL 325 MG PR STA (12:30)
--- NOTE | 2024-11-18 12:32 | ERPHSYRPT ---
- History of Present Illness Time Seen by Provider: 11/18/24 11:50 Source: patient, EMS, alf records Exam Limitations: clinical condition Patient Subjective Stated Complaint: Respiratory distress and altered mental status. [facility] her normal earlier today and was found like this at 11:21am today. Triage Nursing Assessment: Patient arrived by EMS wearing 4L of 02 per N/C. She is awake, alert to self, but drowsy and not staying awake long. Audible wheezing noted. Skin is hot to touch. Pale. Non-pitting edema present to BLE. RUE drawn toward center of her chest. RT and Dr. Cruz at bedside upon arrival in ER. Physician History: 79-year-old female resident of alf with multiple medical problems including coronary artery disease, peripheral vascular disease, COPD, congestive heart failure, atrial fibrillation is brought in the ER with complaints of altered mental status, difficulty breathing and fever. Patient had audible wheezing and was given a neb treatment/DuoNeb and route. She does have some wheezing and stridors, given another DuoNeb and racemic epi while in the ER. She is on 4 L oxygen with sats in the mid to upper 90s. Normally she is not on oxygen. Patient denies any chest pain. Patient does not a good historian and answering only selective questions, history is limited. No aspiration reported by nursing. Allergies/Adverse Reactions: albuterol Allergy (Intermediate, Verified 11/18/24 11:54) Swelling of Tongue and Lips propranolol [From Inderal LA] Allergy (Intermediate, Verified 11/18/24 11:54) red face and ears levofloxacin [From Levaquin] Allergy (Unknown, Verified 11/18/24 11:54) clonazepam [From Klonopin] Allergy (Verified 11/18/24 11:54) Tightness of Throat tongue swollen metoclopramide [From Reglan] Allergy (Verified 11/18/24 11:54) propranolol HCl [From Inderal LA] Allergy (Verified 11/18/24 11:54) Swelling of Tongue and Lips red face and ears [id number]-[id number]-EtW Reductase Inhibitor Allergy (Verified 11/18/24 11:54) Wheezing Sulfa (Sulfonamide Antibiotics) Allergy (Verified 11/18/24 11:54) Swelling of Tongue and Lips throat swell,ears red terfenadine Allergy (Verified 11/18/24 11:54) venom-honey bee [bee venom (honey bee)] Allergy (Verified 11/18/24 11:54) Hives large hives wheat Allergy (Verified 11/18/24 11:54) zanamivir [From Relenza Diskhaler] Allergy (Verified 11/18/24 11:54) Swelling of Tongue and Lips throat tightness cilostazol [From Pletal] Adverse Reaction (Severe, Verified 11/18/24 11:54) Swelling of Tongue and Lips ticagrelor [From Brilinta] Adverse Reaction (Severe, Verified 11/18/24 11:54) Swelling of Tongue and Lips Home Medications: Acetaminophen 325 mg [Tylenol 325 mg] 650 mg PO Q6H PRN 11/18/24 [History] Amlodipine Besylate [Norvasc] 2.5 mg PO DAILY 11/18/24 [History] Blood-Glucose Sensor [Dexcom G7 Sensor] 1 applic SQ Q10D 11/18/24 [History] Buspirone HCl 5 mg [Buspar 5 mg] 10 mg PO BID 11/18/24 [History] Calcium Carbonate [Tums Ultra] 400 mg PO QID 11/18/24 [History] Cetirizine HCl [Zyrtec] 10 mg PO HS 11/18/24 [History] Cholecalciferol (Vitamin D3) [Vitamin D] 50,000 unit PO WEEKLY 11/18/24 [History] Cranberry Fruit Extract [Cranberry] 250 mg PO BID 11/18/24 [History] Cyanocobalamin 100 Mcg [Vitamin B-12 100 Mcg] 1,000 mcg PO DAILY 11/18/24 [History] Dronedarone Hydrochloride 400* [Multaq 400 MG] 400 mg PO BID 11/18/24 [History] Famotidine 20 mg [Pepcid 20 MG] 20 mg PO BID 11/18/24 [History] Ferrous Sulfate 325 mg [Feosol 325 mg] 325 mg PO BID 11/18/24 [History] Folic Acid 1 mg [Folate 1 mg] 1 mg PO DAILY 11/18/24 [History] Furosemide 40 mg [Lasix 40 MG] 40 mg PO DAILY 11/18/24 [History] Insulin Glargine,Hum.rec.anlog [Toujeo Solostar] 22 unit SQ HS 11/18/24 [History] Insulin Glargine,Hum.rec.anlog [Toujeo Solostar] See Protocol SQ HS 11/18/24 [History] Insulin Lispro [Humalog] 7 unit SQ DINNER 11/18/24 [History] Insulin Lispro [Humalog] 15 unit SQ BID 11/18/24 [History] Insulin Lispro [Humalog] See Protocol SQ AC 11/18/24 [History] Lactobacillus Acidophilus [Acidophilus TABLET] 1 cap PO DAILY 11/18/24 [History] Levothyroxine Sodium [Euthyrox] 175 mcg PO DAILY 11/18/24 [History] Loperamide HCl [Imodium A-D] See Rx Instructions .ROUTE .COMPLEX PRN 11/18/24 [History] Magnesium Oxide 400 mg [Mag-Ox 400] 400 mg PO BID 11/18/24 [History] Melatonin 3 mg PO HS 11/18/24 [History] Metoprolol Tartrate 50 mg [Lopressor 50 MG] 50 mg PO DAILY 11/18/24 [History] Metoprolol Tartrate [Lopressor] 100 mg PO BID 11/18/24 [History] Montelukast Sodium 10 mg [Singulair 10 MG] 10 mg PO DAILY 11/18/24 [History] Pantoprazole 20 mg [Protonix 20MG Tablet] 20 mg PO BID 11/18/24 [History] Potassium Chloride Tab* [Klor Con] 10 meq PO DAILY 11/18/24 [History] Pregabalin 50 mg [Lyrica 50MG] 50 mg PO DAILY 11/18/24 [History] Rosuvastatin Calcium 5 mg PO DAILY 11/18/24 [History] Tamsulosin HCl [Flomax] 0.4 mg PO HS 11/18/24 [History] calcitrioL [Calcitriol] 0.5 mcg PO DAILY 11/18/24 [History] Hx Tetanus, Diphtheria Vaccination/Date Given: (01/20/18) Hx Influenza Vaccination/Date Given: Yes (05/21/24) Hx Pneumococcal Vaccination/Date Given: Yes (06/21/23) Immunizations Up to Date: Yes Travel Risk - International Travel Have you traveled outside of the country in past 3 weeks: No - Emerging Infectious Disease Are you exhibiting symptoms associated with any current EIDs: Yes Symptoms: Fever, Shortness of Breath - Review of Systems All Other Systems: Unable due to condition - Past Medical History Pertinent Past Medical History: Yes Neurological History: TIA, Peripheral Neuropathy ENT History: Other Cardiac History: Arrhythmia, Congestive Heart Failure, High Cholesterol, Hypertension, Myocardial Infarction (SD) Respiratory History: CHF, COPD Endocrine Medical History: Diabetes Type II, Hypothyroidism Musculoskeletal History: No Pertinent History GI Medical History: Other, GERD History: No Pertinent History Psycho-Social History: Anxiety Female Reproductive Disorders: Breast Cancer Other Medical History: right eye retinal scratch - Past Surgical History Past Surgical History: Yes Neuro Surgical History: No Pertinent History Cardiac: Other Respiratory: No Pertinent History Gastrointestinal: Hernia Repair Genitourinary: No Pertinent History Musculoskeletal: No Pertinent History Female Surgical History: Mastectomy, Lumpectomy Other Surgical History: left mastectomy 1993, right lumpectomy, right thyroid removed, left thyroid removed with goiter, pubic mass, left knee scope, valve replacement Significant Family History: no pertinent family hx - Social History Smoking Status: Never smoker Exposure to second hand smoke: No Drug Use: none - Social Determinants of Health Will the patient participate in the screening: Unable to obtain - Nursing Vital Signs Nursing Vital Signs: Initial Vital Signs Temperature 102.6 F 11/18/24 11:49 Respiratory Rate 34 H 11/18/24 11:49 Pain Scale Pain Intensity 0 - Physical Exam General Appearance: moderate distress Eye Exam: eyes nml inspection Neck Exam: normal inspection Respiratory Exam: respiratory distress, diminished breath sounds, accessory muscle use, wheezing, stridor Cardiovascular/Chest Exam: normal heart sounds, regular rate/rhythm Abdominal/Gastrointestinal Exam: soft, normal bowel sounds, No tenderness Extremity Exam: non-tender, normal range of motion Neurologic Exam: alert, oriented x 3 Skin Exam: normal color SpO2 Interpretation: O2 applied SpO2: 98 O2 Delivery: Nasal Cannula Ordered Tests: Active Orders 24 hr Category Date Time Status Vat Operator STAT Care 11/18/24 12:03 Active Cath [Catheter-[place] Ram] STAT Care 11/18/24 12:32 Completed EKG-ER Only STAT Care 11/18/24 12:03 Active IV Insertion STAT Care 11/18/24 12:03 Active Oxygen-ED Only Nasal Cannula 4 lpm Care 11/18/24 12:03 Active CHEST 1 VIEW (PORTABLE) Stat Exams 11/18/24 12:03 Completed HEAD WITHOUT CONTRAST [CT] Stat Exams 11/18/24 12:31 Completed NECK WO CONTRAST [CT] Stat Exams 11/18/24 12:32 Completed BLOOD CULTURE Stat Lab 11/18/24 13:48 Received CBC W DIFF Stat Lab 11/18/24 12:03 Completed CMP Stat Lab 11/18/24 12:45 Completed CULTURE,URINE Stat Lab 11/18/24 12:33 Received Lactic Acid Stat Lab 11/18/24 12:50 Completed NT PRO BNPII Stat Lab 11/18/24 12:45 Completed PROCALCITONIN Stat Lab 11/18/24 12:45 Completed PROTIME WITH INR Stat Lab 11/18/24 12:45 Completed TROPONIN Q4H Lab 11/18/24 12:45 Completed TROPONIN Q4H Lab 11/18/24 16:15 Ordered TROPONIN Q4H Lab 11/18/24 20:15 Ordered UA W/RFX UR CULTURE Stat Lab 11/18/24 12:33 Completed Respiratory Therapy Assessment DAILY RT 11/18/24 12:13 Active Transfer Order Routine Transfer 11/18/24 Ordered Medication Summary Generic Name Dose Route Start Last Admin Trade Name Freq PRN Reason Stop Dose Admin Sodium Chloride 1,000 mls @ 100 mls/hr 11/18/24 13:45 11/18/24 14:01 Sodium Chloride 0.9% 1000 Ml IV 12/18/24 13:44 100 mls/hr .Q10H RAMON Administration Discontinued Medications Generic Name Dose Route Start Last Admin Trade Name Freq PRN Reason Stop Dose Admin Acetaminophen 650 mg 11/18/24 12:29 11/18/24 12:30 Acetaminophen 325mg Suppository MN 11/18/24 12:30 650 mg STAT STA Administration Acetaminophen Confirm 11/18/24 12:26 Acetaminophen 325mg Suppository Administered 11/18/24 12:27 Dose 650 mg .ROUTE .STK-MED ONE Albuterol/Ipratropium Confirm 11/18/24 11:54 Ipratropium/Albuterol Sulfate 3 Ml Ampul.Neb Administered 11/18/24 11:55 Dose 3 ml IH .STK-MED ONE Albuterol/Ipratropium 3 ml 11/18/24 12:03 11/18/24 11:55 Ipratropium/Albuterol Sulfate 3 Ml Ampul.Neb IH 11/18/24 12:04 3 ml STAT ONE Administration Methylprednisolone Sodium 0 mg 11/18/24 12:03 11/18/24 12:10 Succinate 125 mg/ Sterile IV 11/18/24 12:04 125 mg Water 2 ml STAT ONE Administration Diphenhydramine HCl 25 mg 11/18/24 12:03 11/18/24 12:09 Diphenhydramine Hcl 50 Mg/Ml Vial IV 11/18/24 12:04 25 mg STAT ONE Administration Diphenhydramine HCl Confirm 11/18/24 12:04 Diphenhydramine Hcl 50 Mg/Ml Vial Administered 11/18/24 12:05 Dose 50 mg .ROUTE .STK-MED ONE Epinephrine 0.5 ml 11/18/24 12:04 11/18/24 12:05 Racepinephrine Inh Bianka 0.5 Ml Neb IH 11/18/24 12:05 0.5 ml STAT ONE Administration Epinephrine Confirm 11/18/24 12:03 Racepinephrine Inh Bianka 0.5 Ml Neb Administered 11/18/24 12:04 Dose 0.5 ml IH .STK-MED ONE Famotidine 20 mg 11/18/24 12:03 11/18/24 12:10 Famotidine 20 Mg/1 Vial IV 11/18/24 12:04 20 mg STAT ONE Administration Famotidine Confirm 11/18/24 12:07 Famotidine 20 Mg/1 Vial Administered 11/18/24 12:08 Dose 20 mg IV .STK-MED ONE Azithromycin 500 mg/ Sodium 250 mls @ 250 mls/hr 11/18/24 13:38 Chloride IV 11/18/24 14:37 STAT STA Ceftriaxone Sodium 2 gm in 100 mls @ 200 mls/hr 11/18/24 13:38 11/18/24 14:55 Rocephin 2 Gm/100 Ml Nacl IV 11/18/24 14:07 Infused STAT ONE Infusion Ceftriaxone Sodium Confirm 11/18/24 14:00 Rocephin 2 Gm/100 Ml Nacl Administered 11/18/24 14:01 Dose 2 gm in 100 mls @ ud IV .STK-MED ONE Methylprednisolone Sodium Succinate Confirm 11/18/24 12:04 Methylprednis Sod Succ 125 Mg/2 Ml Vial Administered 11/18/24 12:05 Dose 125 mg .ROUTE .STK-MED ONE Sodium Chloride Confirm 11/18/24 12:03 Sodium Cl For Inhalation 3 Ml Ud Nebule Administered 11/18/24 12:04 Dose 3 ml IH .STK-MED ONE Sterile Water Confirm 11/18/24 12:03 Water For Injection,Sterile 10 Ml Vial Administered 11/18/24 12:04 Dose 10 ml IJ .STK-MED ONE Lab/Rad Data: Laboratory Result Diagrams 11/18/24 12:03 11/18/24 12:45 Laboratory Results 11/18/24 11/18/24 11/18/24 Range/Units 12:50 12:45 12:45 WBC (3.98-10.04) x10^3/uL RBC (3.93-5.22) x10^6/uL Hgb (11.2-15.7) g/dL Hct (34.1-44.9) % MCV (79.4-94.8) fL MCH (25.6-32.2) pg MCHC (32.2-35.5) g/dL RDW (11.7-14.4) % Plt Count (182-369) x10^3/uL MPV (9.4-12.3) fL Gran % (34.0-71.1) % Immature Gran % (Auto) (0.001-0.429) % Nucleat RBC Rel Count (0.00-0.2) % Eos # (Auto) (0.04-0.36) x10^3/uL Immature Gran # (Auto) (0.001-0.031) x10^3u/L Absolute Lymphs (auto) (1.18-3.74) x10^3/uL Absolute Monos (auto) (0.24-0.86) x10^3/uL Absolute Nucleated RBC (0.00-0.012) x10^3u/L Lymphocytes % (19.3-51.7) % Monocytes % (4.7-12.5) % Eosinophils % (0.7-5.8) % Basophils % (0.1-1.2) % Absolute Granulocytes (1.56-6.13) x10^3/uL Basophils # (0.01-0.08) x10^3/uL PT (9.4-12.5) SECONDS INR (0.8-3.0) Sodium (135-145) mmol/L Potassium (3.5-5.1) mmol/L Chloride (98-107) mmol/L Carbon Dioxide (22-30) mmol/L Anion Gap (5-15) MEQ/L BUN (7-17) mg/dL Creatinine (0.52-1.04) mg/dL Estimated GFR ML/MIN Glucose (74-106) mg/dL Lactic Acid 0.9 (0.4-2.0) Calcium (8.4-10.2) mg/dL Total Bilirubin (0.2-1.3) mg/dL AST (14-36) U/L ALT (0-35) U/L Alkaline Phosphatase (38-126) U/L Troponin I (0.000-0.033) ng/mL NT-Pro-B Natriuret Pep 3290 (<300) pg/mL Serum Total Protein (6.3-8.2) g/dL Albumin (3.5-5.0) g/dL Procalcitonin 3.160 H* (0.030-0.080) ng/mL Urine Color (Yellow) Urine Appearance (Clear) Urine pH (4.6-8.0) Ur Specific Loma (1.005-1.030) Urine Protein (Negative) Urine Glucose (UA) (Negative) mg/dL Urine Ketones (Negative) Urine Blood (Negative) Urine Nitrite (Negative) Urine Bilirubin (Negative) Urine Urobilinogen (0.2) mg/dL Ur Leukocyte Esterase (Negative) U Hyaline Cast (Auto) (0-2) /LPF Urine Microscopic RBC (0-5) /HPF Urine Microscopic WBC (0-5) /HPF Ur Epithelial Cells (None Seen) /HPF Urine Bacteria (None Seen) /HPF Urine Culture Reflexed (NO) Influenza Type A Ag NEGATIVE (NEGATIVE) Influenza Type B Ag NEGATIVE (NEGATIVE) RSV (PCR) NEGATIVE (NEGATIVE) SARS-CoV-2 (PCR) NEGATIVE (NEGATIVE) Slides for Path Review 11/18/24 11/18/24 11/18/24 Range/Units 12:45 12:45 12:45 WBC (3.98-10.04) x10^3/uL RBC (3.93-5.22) x10^6/uL Hgb (11.2-15.7) g/dL Hct (34.1-44.9) % MCV (79.4-94.8) fL MCH (25.6-32.2) pg MCHC (32.2-35.5) g/dL RDW (11.7-14.4) % Plt Count (182-369) x10^3/uL MPV (9.4-12.3) fL Gran % (34.0-71.1) % Immature Gran % (Auto) (0.001-0.429) % Nucleat RBC Rel Count (0.00-0.2) % Eos # (Auto) (0.04-0.36) x10^3/uL Immature Gran # (Auto) (0.001-0.031) x10^3u/L Absolute Lymphs (auto) (1.18-3.74) x10^3/uL Absolute Monos (auto) (0.24-0.86) x10^3/uL Absolute Nucleated RBC (0.00-0.012) x10^3u/L Lymphocytes % (19.3-51.7) % Monocytes % (4.7-12.5) % Eosinophils % (0.7-5.8) % Basophils % (0.1-1.2) % Absolute Granulocytes (1.56-6.13) x10^3/uL Basophils # (0.01-0.08) x10^3/uL PT 10.5 (9.4-12.5) SECONDS INR 0.96 (0.8-3.0) Sodium 140 (135-145) mmol/L Potassium 4.4 (3.5-5.1) mmol/L Chloride 100 (98-107) mmol/L Carbon Dioxide 22 (22-30) mmol/L Anion Gap 21.6 H (5-15) MEQ/L BUN 55 H (7-17) mg/dL Creatinine 2.65 H (0.52-1.04) mg/dL Estimated GFR 17.8 ML/MIN Glucose 140 H (74-106) mg/dL Lactic Acid (0.4-2.0) Calcium 7.6 L (8.4-10.2) mg/dL Total Bilirubin 0.60 (0.2-1.3) mg/dL AST 34 (14-36) U/L ALT 25 (0-35) U/L Alkaline Phosphatase 94 (38-126) U/L Troponin I 0.012 (0.000-0.033) ng/mL NT-Pro-B Natriuret Pep (<300) pg/mL Serum Total Protein 7.8 (6.3-8.2) g/dL Albumin 4.3 (3.5-5.0) g/dL Procalcitonin (0.030-0.080) ng/mL Urine Color (Yellow) Urine Appearance (Clear) Urine pH (4.6-8.0) Ur Specific Loma (1.005-1.030) Urine Protein (Negative) Urine Glucose (UA) (Negative) mg/dL Urine Ketones (Negative) Urine Blood (Negative) Urine Nitrite (Negative) Urine Bilirubin (Negative) Urine Urobilinogen (0.2) mg/dL Ur Leukocyte Esterase (Negative) U Hyaline Cast (Auto) (0-2) /LPF Urine Microscopic RBC (0-5) /HPF Urine Microscopic WBC (0-5) /HPF Ur Epithelial Cells (None Seen) /HPF Urine Bacteria (None Seen) /HPF Urine Culture Reflexed (NO) Influenza Type A Ag (NEGATIVE) Influenza Type B Ag (NEGATIVE) RSV (PCR) (NEGATIVE) SARS-CoV-2 (PCR) (NEGATIVE) Slides for Path Review 11/18/24 11/18/24 Range/Units 12:33 12:03 WBC 17.4 H (3.98-10.04) x10^3/uL RBC 3.15 L (3.93-5.22) x10^6/uL Hgb 9.5 L (11.2-15.7) g/dL Hct 28.3 L (34.1-44.9) % MCV 89.8 (79.4-94.8) fL MCH 30.2 (25.6-32.2) pg MCHC 33.6 (32.2-35.5) g/dL RDW 13.3 (11.7-14.4) % Plt Count 313 (182-369) x10^3/uL MPV 11.4 (9.4-12.3) fL Gran % 84.1 H (34.0-71.1) % Immature Gran % (Auto) 0.6 H (0.001-0.429) % Nucleat RBC Rel Count 0.0 (0.00-0.2) % Eos # (Auto) 0.10 (0.04-0.36) x10^3/uL Immature Gran # (Auto) 0.11 H (0.001-0.031) x10^3u/L Absolute Lymphs (auto) 0.81 L (1.18-3.74) x10^3/uL Absolute Monos (auto) 1.70 H (0.24-0.86) x10^3/uL Absolute Nucleated RBC 0.00 (0.00-0.012) x10^3u/L Lymphocytes % 4.7 L (19.3-51.7) % Monocytes % 9.8 (4.7-12.5) % Eosinophils % 0.6 L (0.7-5.8) % Basophils % 0.2 (0.1-1.2) % Absolute Granulocytes 14.65 H (1.56-6.13) x10^3/uL Basophils # 0.03 (0.01-0.08) x10^3/uL PT (9.4-12.5) SECONDS INR (0.8-3.0) Sodium (135-145) mmol/L Potassium (3.5-5.1) mmol/L Chloride (98-107) mmol/L Carbon Dioxide (22-30) mmol/L Anion Gap (5-15) MEQ/L BUN (7-17) mg/dL Creatinine (0.52-1.04) mg/dL Estimated GFR ML/MIN Glucose (74-106) mg/dL Lactic Acid (0.4-2.0) Calcium (8.4-10.2) mg/dL Total Bilirubin (0.2-1.3) mg/dL AST (14-36) U/L ALT (0-35) U/L Alkaline Phosphatase (38-126) U/L Troponin I (0.000-0.033) ng/mL NT-Pro-B Natriuret Pep (<300) pg/mL Serum Total Protein (6.3-8.2) g/dL Albumin (3.5-5.0) g/dL Procalcitonin (0.030-0.080) ng/mL Urine Color Yellow (Yellow) Urine Appearance Cloudy A (Clear) Urine pH 5.5 (4.6-8.0) Ur Specific L[place] 1.010 (1.005-1.030) Urine Protein 30 (Negative) Urine Glucose (UA) Negative (Negative) mg/dL Urine Ketones Negative (Negative) Urine Blood Small A (Negative) Urine Nitrite Positive A (Negative) Urine Bilirubin Negative (Negative) Urine Urobilinogen 0.2 (0.2) mg/dL Ur Leukocyte Esterase Large A (Negative) U Hyaline Cast (Auto) NONE SEEN (0-2) /LPF Urine Microscopic RBC 0-2 (0-5) /HPF Urine Microscopic WBC >100 A (0-5) /HPF Ur Epithelial Cells None Seen (None Seen) /HPF Urine Bacteria Many A (None Seen) /HPF Urine Culture Reflexed ORDERED SEPARATELY (NO) Influenza Type A Ag (NEGATIVE) Influenza Type B Ag (NEGATIVE) RSV (PCR) (NEGATIVE) SARS-CoV-2 (PCR) (NEGATIVE) Slides for Path Review YES - Progress Progress: improved, re-examined Air Movement: fair Progress Note: 11/18/24 15:03 79-year-old with multiple medical problems is evaluated in the ER for difficulty breathing needing 4 L oxygen, temperature of 103 and altered mental status. Patient was having some stridors on presentation with mild swelling of tongue, given racemic epi, Solu-Medrol Benadryl and Pepcid, reevaluation she is feeling better. No more tongue swelling or airway compromise, stridor improved. Chest x-ray showed left-sided pneumonia reviewed by me, followed by official report. EKG showed sinus tachycardia with no acute ST elevations and negative initial troponin. Has a white count of 17, chemistries with mildly worsening CKD with a baseline creatinine of 2.5 and it is 2.6. Has a gap of 21. Because of her altered mental status, obtain CT head and soft tissue neck which is negative for any acute intracranial findings, does not have any airway compromise but has other changes in the esophagus and retropharyngeal area. She also has UTI and is given Rocephin and Zithromax which would cover for pneumonia as well. On reevaluation patient is feeling much improved and no tachypnea or tachycardia with sats in upper 90s on 4 L oxygen. Discussed the results of workup with patient and and son over the phone, agreed with admission. Discussed with Dr. Cunningham and patient is being admitted to hospitalist service. Complexity of problem addressed: High acuity Complexity of data reviewed/analyzed: Extensive Risk of complications: High risk Blood Culture(s) Obtained: Yes Antibiotics given: Yes Discussed with Dr.: Other ( hospitalist) Will see patient in: hospital (observation) Counseled pt/family regarding: lab results, diagnosis, need for follow-up, rad results Medical Desision Making - Independent Historian Additional History obtained from: [employer]/EMT - Discussion of managment Care discussed with:: hospitalist Reviewed:: Test results Agreed on:: Treatment plan, place in obs Will see patient: in hospital - Diagnostic Testing Diagnostic test were ordered, analyzed, and reviewed by me: Yes Radiological Interpretation: Interpreted by me, Reviewed by me, Teleradiologist Report - Risk of complications The pt has a mod risk of morbidity or mortality based on: Need for prescription drug management The pt has a high risk of morbidity or mortality based on: Decision regarding hospitilization or escalation of hosp level of care - Departure Departure Disposition: Observation Clinical Impression: Respiratory failure, Pneumonia, Acute UTI (urinary tract infection), Sepsis Referrals: JOE GEORGE MD [Primary Care Provider, INTERNAL [facility]IC[facility]] - Follow up/PCP as directed
[2024-11-18 12:50] LABS: Absolute Neutrophil Ct (ANC) 14.65 x10^3/uL (1.56-6.13); BASOPHIL % 0.2 % (0.1-1.2); Basophil (Absolute #) 0.03 x10^3/uL (0.01-0.08); Eosinophil % 0.6 % (0.7-5.8); Hematocrit 28.3 % (34.1-44.9); Hemoglobin 9.5 g/dL (11.2-15.7); IMMATURE GRAN # 0.11 x10^3u/L (0.001-0.031); IMMATURE GRAN % 0.6 % (0.001-0.429); Lymphocyte (Absolute #) 0.81 x10^3/uL (1.18-3.74); Lymphocytes % 4.7 % (19.3-51.7); Mean Cell Volume 89.8 fL (79.4-94.8); Mean Corpuscular Hemoglobin 30.2 pg (25.6-32.2); Mean Corpuscular Hgb Concent. 33.6 g/dL (32.2-35.5); Mean Platelet Volume 11.4 fL (9.4-12.3); Monocytes % 9.8 % (4.7-12.5); Neutrophil % 84.1 % (34.0-71.1); Platelet Count 313 x10^3/uL (182-369); Red Blood Count 3.15 x10^6/uL (3.93-5.22); Red Cell Distribution Width 13.3 % (11.7-14.4); White Blood Count 17.4 x10^3/uL (3.98-10.04)
[2024-11-18 13:06] LABS: INR 0.96 (0.8-3.0); PROTIME 10.5 SECONDS (9.4-12.5)
[2024-11-18 13:08] LABS: ALBUMIN 4.3 g/dL (3.5-5.0); ANION GAP 21.6 MEQ/L (5-15); BILIRUBIN,TOTAL 0.6 mg/dL (0.2-1.3); Calcium 7.6 mg/dL (8.4-10.2); Creatinine 1 2.65 mg/dL (0.52-1.04); EST GLOMERULAR FILTRATION RATE 17.8 ML/MIN; Potassium 4.4 mmol/L (3.5-5.1); Total Protein 7.8 g/dL (6.3-8.2)
[2024-11-18 13:21] LABS: Appearance Cloudy (Clear); Bacteria Many /HPF (None Seen); Bilirubin Negative (Negative); Blood Small (Negative); Epithelial Cells None Seen /HPF (None Seen); Glucose, Urine Negative (Negative); Hyaline Casts NONE SEEN /LPF (0-2); Ketones Negative (Negative); Leukocyte Esterase Large (Negative); Nitrite Positive (Negative); Ph 5.5 (4.6-8.0); Protein,Urine Dip 30 (Negative); RBC 0-2 /HPF (0-5); Urobilinogen 0.2 mg/dL (0.2); WBC >100 /HPF (0-5)
--- NOTE | 2024-11-18 13:27 | XRAY ---
CLINICAL HISTORY: ams COMPARISON: CT head on 11/28/2023 TECHNIQUE: Axial non-contrast CT scan of the brain was performed from the skull base to the high parietal region. One of the following dose reduction techniques were utilized for this exam: Automated exposure control, adjustment of the mA and/or kV according to patient size, use of iterative reconstruction. (CTDI: 53.92 mGy, DLP: 1450 mGy*cm) FINDINGS: Brain Parenchyma: No evidence of acute infarct, hemorrhage, or mass effect. Multiple areas of hypo-attenuation at periventricular and deep white matter, reflecting Chronic white matter small vessel disease. 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 Ventricular System: Ventricles are normal in size and configuration. No evidence of hydrocephalus or ventricular enlargement. Subarachnoid Spaces: Widening of cortical sulci and cisterns. No evidence of subarachnoid hemorrhage or extra-axial fluid collections. Cerebellum and Brainstem: Normal size and density. No masses, lesions, or areas of abnormal density. Orbits: Normal appearance of the globes, optic nerves, and extraocular muscles. No evidence of orbital masses or abnormal density. Sinuses: Clear paranasal sinuses. No evidence of sinusitis or mucosal thickening. Mastoid Air Cells: Clear mastoid air cells. No evidence of mastoiditis. Skull: Normal skull morphology. IMPRESSION: 1. No evidence of acute infarct, hemorrhage, or mass effect. 2. Senile brain atrophic changes. 3. Chronic white matter small vessel disease. 4. 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 5. No interval changes compared to the previous CT study. The report was ready at 12:17 PM OPERATOR TECHNICIAN, 11/18/2024, and the call was completed at 12:19 PM OPERATOR TECHNICIAN, 11/18/2024, at , and Nurse, Debo was informed regarding the negative stroke results. Electronically Signed by: Claudine Monge MD. (11/18/2024 13:22:14 EDT)
[2024-11-18 13:31] LABS: PROCALCITONIN 3.16 ng/mL (0.030-0.080)
[2024-11-18 13:34] LABS: Slide Review 1 YES
[2024-11-18 13:41] LABS: INFLUENZA A NEGATIVE (NEGATIVE); INFLUENZA B NEGATIVE (NEGATIVE); RESPIRATORY SYNCTIAL VIRUS NEGATIVE (NEGATIVE); SARS-CoV-2 Xpert Express NEGATIVE (NEGATIVE)
[2024-11-18] MEDS ORDERED: Sodium Chloride 0.9% 1000 ML 1,000 ML ONE (14:00)
[2024-11-18] MEDS ORDERED: ROCEPHIN 2 GM/100 ML NACL 2 GM/100 ML IVPB IV ONE (14:00)
[2024-11-18] MEDS: Sodium Chloride 0.9% 1000 ML 1,000 ML IV SCH (14:01)
[2024-11-18] MEDS: ROCEPHIN 2 GM/100 ML NACL 2 GM/100 ML IVPB IV ONE (14:01)
--- NOTE | 2024-11-18 14:10 | XRAY ---
CLINICAL HISTORY: [place] COMPARISON: CT chest on 09/21/2023 TECHNIQUE: CT scan of the neck was performed without administration of intravenous contrast. Sagittal and coronal reconstructions were obtained. One of the following dose reduction techniques were utilized for this exam: Automated exposure control, adjustment of the mA and/or kV according to patient size, and use of iterative reconstruction. FINDINGS: Nasopharynx: Normal size and appearance. No masses. Oropharynx: Normal size and appearance. No masses. Larynx and Hypopharynx: Normal appearance of the laryngeal structures. Vocal cords are normal in appearance and movement. No masses. Esophagus Inward indentation of the posterior tracheal wall with dilated upper esophgus, the upper trachea measures 5.2 mm and upper esophgus measures 15 mm, could be secondary to tracheomalcia, yet further CT chest/endoscope is needed to rule out distal esophgeal pathology. Thyroid Gland: Not seen, suggest prior total thyroidectomy. Salivary Glands: Parotid, submandibular, and sublingual glands are normal in size and appearance. No evidence of sialadenitis or masses. Lymph Nodes: No pathologically enlarged cervical lymph nodes. Normal appearance of the lymph node chains. Vascular Structures: Retropharyngeal left carotid artery indenting the posterior pharyngeal wall on the left side posteriorly. Carotid arterial intimal atherosclerotic calcifications. Soft Tissues: Normal appearance of the soft tissues of the neck. No abnormal masses, swelling, or fluid collections. Bones: Marked cervical spondylsis. No fractures, lytic or sclerotic lesions. IMPRESSION: 1. 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 new finding. 2. Retropharyngeal left carotid artery indenting the posterior pharyngeal wall on the left side posteriorly. 3. Clinical correlation and upper GI endoscopy are recommended. Electronically Signed by: Claudine Monge MD. (11/18/2024 14:06:04 EDT)
--- NOTE | 2024-11-18 14:16 | XRAY ---
CLINICAL HISTORY: sob COMPARISON: 07/21/2024 TECHNIQUE: X-rays of the chest in AP portable view. FINDINGS: Patchy opacifications are noted as well as left lower zone non-homogeneous opacity Left costophrenic angle is obscured, right clear costophrenic angle Cardiomegaly is noted The bony thorax is unremarkable Both verenice are prominent and increased perihilar vascular marking. Bilateral shoulder osteoarthritis. IMPRESSION: 1. Patchy opacifications are noted as well as left lower zone non-homogeneous opacity, newly developed 2. Cardiomegaly, stable 3. Both verenice are prominent and have increased perihilar vascular marking suggesting pulmonary edema/vascular congestion, more appreciated Electronically Signed by: Claudine Monge MD. (11/18/2024 14:12:01 EDT)
[2024-11-18] MEDS ORDERED: Sodium Chloride 0.9% 250 ML 250 ML IV ONE (14:59)
[2024-11-18] MEDS ORDERED: ZITHROMAX IV IV ONE (14:59)
[2024-11-18] MEDS: ZITHROMAX IV*** 500 MG in Sodium Chloride 0.9% 250 ML 250 ML IV STA (15:00)
--- NOTE | 2024-11-18 15:24 | PCM.HP ---
History of Present Illness - Chief Complaint Chief Complaint: sepsis/pneumonia Date: 11/18/24 History of Present Illness: is a 79 year old female resident of [facility] with pmhx of CAD, PE/DVT, anxiety, celiac disease, GERD, HTN, hypothyroid, CKD, CHF, COPD, PVD, and atrial fibrillation, ESBL, CVA, HLD,anemia, depression, breast cancer, DM II presented to ED 11/18/24 with complaints of altered mental status, difficulty breathing and fever. Patient is now A&O x 3 on my exam. Upon arrival patient febrile to 103.6F, tachycardic, tachypneic, and requiring 4L oxygen despite being normally on room air. On ED exam she had audible wheezing and stridor, along with mild tongue swelling. She was treated with DuoNebs, racemic epinephrine, Solu-Medrol, Benadryl, and Pepcid with resolution of stridor and airway symptoms. She remains on 2L O2 with saturations now at 94%. Chest X-ray showed patchy opacities and left lower lobe infiltrate consistent with pneumonia, along with cardiomegaly and vascular congestion suggesting volume overload. Head CT showed no acute i ntracranial process, but chronic infarct changes. CT neck revealed posterior tracheal indentation and dilated esophagus, suggestive of possible structural abnormality or aspiration risk, for which further evaluation with CT chest or endoscopy is recommended. EKG showed sinus tachycardia with no acute ischemia, and initial troponin was negative. Lab findings remarkable for leukocytosis (WBC 17.4), elevated procalcitonin (3.16), and UA suggestive of a UTI (positive nitrites and large leukocyte esterase). Creatinine was mildly elevated at 2.65 (baseline 2.3), likely reflecting [id number] kidney injury. Admit for sepsis secondary to pneumonia and UTI, complicated by acute hypoxic respiratory failure, and possible volume overload. - Review of Systems Constitutional: Fever, Weakness Eyes: No Symptoms Ears, Nose, & Throat: No Symptoms Respiratory: Cough, Short Of Breath, Wheezing Cardiac: No Symptoms Abdominal/Gastrointestinal: Diarrhea Genitourinary Symptoms: No Symptoms Musculoskeletal: No Symptoms Skin: No Symptoms Neurological: No Symptoms Psychological: No Symptoms Endocrine: No Symptoms Hematologic/Lymphatic: No Symptoms Immunological/Allergic: No Symptoms Medications & Allergies Home Medications: Home Medication List Acetaminophen 325 mg [Tylenol 325 mg] 650 mg PO Q6H PRN 11/18/24 [History Confirmed 11/18/24] Amlodipine Besylate [Norvasc] 2.5 mg PO DAILY 11/18/24 [History Confirmed 11/18/24] Blood-Glucose Sensor [Dexcom G7 Sensor] 1 applic SQ Q10D 11/18/24 [History Confirmed 11/18/24] Buspirone HCl 5 mg [Buspar 5 mg] 10 mg PO BID 11/18/24 [History Confirmed 11/18/24] Calcium Carbonate [Tums Ultra] 400 mg PO QID 11/18/24 [History Confirmed 11/18/24] Cetirizine HCl [Zyrtec] 10 mg PO HS 11/18/24 [History Confirmed 11/18/24] Cholecalciferol (Vitamin D3) [Vitamin D] 50,000 unit PO WEEKLY 11/18/24 [History Confirmed 11/18/24] Cranberry Fruit Extract [Cranberry] 250 mg PO BID 11/18/24 [History Confirmed 11/18/24] Cyanocobalamin 100 Mcg [Vitamin B-12 100 Mcg] 1,000 mcg PO DAILY 11/18/24 [History Confirmed 11/18/24] Dronedarone Hydrochloride 400* [Multaq 400 MG] 400 mg PO BID 11/18/24 [History Confirmed 11/18/24] Famotidine 20 mg [Pepcid 20 MG] 20 mg PO BID 11/18/24 [History Confirmed 11/18/24] Ferrous Sulfate 325 mg [Feosol 325 mg] 325 mg PO BID 11/18/24 [History Confirmed 11/18/24] Folic Acid 1 mg [Folate 1 mg] 1 mg PO DAILY 11/18/24 [History Confirmed 11/18/24] Furosemide 40 mg [Lasix 40 MG] 40 mg PO DAILY 11/18/24 [History Confirmed 11/18/24] Insulin Glargine,Hum.rec.anlog [Sofiya Leyva] 22 unit SQ HS 11/18/24 [History Confirmed 11/18/24] Insulin Glargine,Hum.rec.anlog [Sofiya Leyva] See Protocol SQ HS 11/18/24 [History Confirmed 11/18/24] Insulin Lispro [Humalog] 7 unit SQ DINNER 11/18/24 [History Confirmed 11/18/24] Insulin Lispro [Humalog] 15 unit SQ BID 11/18/24 [History Confirmed 11/18/24] Insulin Lispro [Humalog] See Protocol SQ AC 11/18/24 [History Confirmed 11/18/24] Lactobacillus Acidophilus [Acidophilus TABLET] 1 cap PO DAILY 11/18/24 [History Confirmed 11/18/24] Levothyroxine Sodium [Euthyrox] 175 mcg PO DAILY 11/18/24 [History Confirmed 11/18/24] Loperamide HCl [Imodium A-D] See Rx Instructions .ROUTE .COMPLEX PRN 11/18/24 [History Confirmed 11/18/24] Magnesium Oxide 400 mg [Mag-Ox 400] 400 mg PO BID 11/18/24 [History Confirmed 11/18/24] Melatonin 3 mg PO HS 11/18/24 [History Confirmed 11/18/24] Metoprolol Tartrate 50 mg [Lopressor 50 MG] 50 mg PO DAILY 11/18/24 [History Confirmed 11/18/24] Metoprolol Tartrate [Lopressor] 100 mg PO BID 11/18/24 [History Confirmed 11/18/24] Montelukast Sodium 10 mg [Singulair 10 MG] 10 mg PO DAILY 11/18/24 [History Confirmed 11/18/24] Pantoprazole 20 mg [Protonix 20MG Tablet] 20 mg PO BID 11/18/24 [History Confirmed 11/18/24] Potassium Chloride Tab* [Klor Con] 10 meq PO DAILY 11/18/24 [History Confirmed 11/18/24] Pregabalin 50 mg [Lyrica 50MG] 50 mg PO DAILY 11/18/24 [History Confirmed 11/18/24] Rosuvastatin Calcium 5 mg PO DAILY 11/18/24 [History Confirmed 11/18/24] Tamsulosin HCl [Flomax] 0.4 mg PO HS 11/18/24 [History Confirmed 11/18/24] calcitrioL [Calcitriol] 0.5 mcg PO DAILY 11/18/24 [History Confirmed 11/18/24] Allergies/Adverse Reactions: Allergies Allergy/AdvReac Type Severity Reaction Status Date / Time albuterol Allergy Intermediate Swelling Verified 11/18/24 11:54 of Tongue and Lips propranolol [From Inderal LA] Allergy Intermediate Verified 11/18/24 11:54 levofloxacin [From Levaquin] Allergy Unknown Verified 11/18/24 11:54 clonazepam [From Klonopin] Allergy Tightness Verified 11/18/24 11:54 of Throat metoclopramide [From Reglan] Allergy Verified 11/18/24 11:54 propranolol HCl Allergy Swelling Verified 11/18/24 11:54 [From Inderal LA] of Tongue and Lips [id number] Reductase Allergy Wheezing Verified 11/18/24 11:54 Inhibitor Sulfa (Sulfonamide Allergy Swelling Verified 11/18/24 11:54 Antibiotics) of Tongue and Lips terfenadine Allergy Verified 11/18/24 11:54 venom-honey bee Allergy Hives Verified 11/18/24 11:54 [bee venom (honey bee)] wheat Allergy Verified 11/18/24 11:54 zanamivir Allergy Swelling Verified 11/18/24 11:54 [From Relenza Diskhaler] of Tongue and Lips cilostazol [From Pletal] AdvReac Severe Swelling Verified 11/18/24 11:54 of Tongue and Lips ticagrelor [From Brilinta] AdvReac Severe Swelling Verified 11/18/24 11:54 of Tongue and Lips - Past Medical History Past Medical History: Yes Neurological History: TIA, Peripheral Neuropathy ENT History: Other Cardiac History: Arrhythmia, Congestive Heart Failure, High Cholesterol, Hypertension, Myocardial Infarction ([place]) Respiratory History: CHF, COPD Endocrine Medical History: Diabetes Type II, Hypothyroidism Musculoskelatal History: No Pertinent History GI Medical History: Other, GERD History: No Pertinent History Pyscho-Social History: Anxiety Reproductive Disorders: Breast Cancer Comment: right eye retinal scratch - Past Surgical History Past Surgical History: Yes Neuro Surgical History: No Pertinent History Cardiac History: Other Respiratory Surgery: No Pertinent History GI Surgical History: Hernia Repair Genitourinary Surgical Hx: No Pertinent History Musculskeletal Surgical Hx: No Pertinent History Female Surgical History: Mastectomy, Lumpectomy Other Surgical History: left mastectomy 1993, right lumpectomy, right thyroid removed, left thyroid removed with goiter, pubic mass, left knee scope, valve replacement Significant Family History: no pertinent family hx - Social History Smoking Status: Never smoker Exposure to second hand smoke: No Alcohol: None Drug Use: none - Social Determinants of Health Will the patient participate in the screening: Unable to obtain Do you worry about a steady place to live?: No In the past 12 months,have you had to go without utilities?: No Have you or anyone in your house had to go without enough: No Transportation Issues: No Has anyone in your support network made you feel unsafe?: No Does the patient want assistance with any of the above?: No Comment: Lives at [facility] - Physical Exam Vital Signs: Vital Signs - 24 hr Temp Pulse Resp BP Pulse Ox 11/18/24 15:07 98 11/18/24 15:00 70 20 121/60 97 11/18/24 14:31 101.5 F 72 23 137/63 99 11/18/24 14:00 75 18 131/55 98 11/18/24 13:31 75 23 130/59 98 11/18/24 13:03 102.9 F 79 134/60 95 11/18/24 12:40 93 H 14 11/18/24 12:33 103.6 F 97 H 22 98 11/18/24 12:14 98 H 26 H 98 11/18/24 12:13 97 H 30 H 159/93 97 11/18/24 12:12 99 H 100 11/18/24 12:10 98 H 100 11/18/24 12:00 96 H 98 11/18/24 11:57 97 H 100 11/18/24 11:50 89 L 11/18/24 11:49 102.6 F 34 H General Appearance: no apparent distress Neurologic Exam: alert, oriented x 3, cooperative Eye Exam: PERRL/EOMI Ears, Nose, Throat Exam: normal ENT inspection Neck Exam: normal inspection Respiratory Exam: normal breath sounds, lungs clear Cardiovascular Exam: regular rate/rhythm, normal heart sounds Gastrointestinal/Abdomen Exam: soft, normal bowel sounds Pelvic Exam: not done Rectal Exam: deferred Back Exam: normal inspection Extremity Exam: normal inspection Skin Exam: normal color Results - Labs Lab/Micro Results: Lab Results-Last 24 Hours 11/18/24 11/18/24 11/18/24 Range/Units 12:03 12:33 12:45 WBC 17.4 H (3.98-10.04) x10^3/uL RBC 3.15 L (3.93-5.22) x10^6/uL Hgb 9.5 L (11.2-15.7) g/dL Hct 28.3 L (34.1-44.9) % MCV 89.8 (79.4-94.8) fL MCH 30.2 (25.6-32.2) pg MCHC 33.6 (32.2-35.5) g/dL RDW 13.3 (11.7-14.4) % Plt Count 313 (182-369) x10^3/uL MPV 11.4 (9.4-12.3) fL Gran % 84.1 H (34.0-71.1) % Immature Gran % (Auto) 0.6 H (0.001-0.429) % Nucleat RBC Rel Count 0.0 (0.00-0.2) % Eos # (Auto) 0.10 (0.04-0.36) x10^3/uL Immature Gran # (Auto) 0.11 H (0.001-0.031) x10^3u/L Absolute Lymphs (auto) 0.81 L (1.18-3.74) x10^3/uL Absolute Monos (auto) 1.70 H (0.24-0.86) x10^3/uL Absolute Nucleated RBC 0.00 (0.00-0.012) x10^3u/L Lymphocytes % 4.7 L (19.3-51.7) % Monocytes % 9.8 (4.7-12.5) % Eosinophils % 0.6 L (0.7-5.8) % Basophils % 0.2 (0.1-1.2) % Absolute Granulocytes 14.65 H (1.56-6.13) x10^3/uL Basophils # 0.03 (0.01-0.08) x10^3/uL PT (9.4-12.5) SECONDS INR (0.8-3.0) Sodium 140 (135-145) mmol/L Potassium 4.4 (3.5-5.1) mmol/L Chloride 100 (98-107) mmol/L Carbon Dioxide 22 (22-30) mmol/L Anion Gap 21.6 H (5-15) MEQ/L BUN 55 H (7-17) mg/dL Creatinine 2.65 H (0.52-1.04) mg/dL Estimated GFR 17.8 ML/MIN Glucose 140 H (74-106) mg/dL Lactic Acid (0.4-2.0) Calcium 7.6 L (8.4-10.2) mg/dL Total Bilirubin 0.60 (0.2-1.3) mg/dL AST 34 (14-36) U/L ALT 25 (0-35) U/L Alkaline Phosphatase 94 (38-126) U/L Troponin I (0.000-0.033) ng/mL NT-Pro-B Natriuret Pep (<300) pg/mL Serum Total Protein 7.8 (6.3-8.2) g/dL Albumin 4.3 (3.5-5.0) g/dL Procalcitonin (0.030-0.080) ng/mL Urine Color Yellow (Yellow) Urine Appearance Cloudy A (Clear) Urine pH 5.5 (4.6-8.0) Ur Specific [place] 1.010 (1.005-1.030) Urine Protein 30 (Negative) Urine Glucose (UA) Negative (Negative) mg/dL Urine Ketones Negative (Negative) Urine Blood Small A (Negative) Urine Nitrite Positive A (Negative) Urine Bilirubin Negative (Negative) Urine Urobilinogen 0.2 (0.2) mg/dL Ur Leukocyte Esterase Large A (Negative) U Hyaline Cast (Auto) NONE SEEN (0-2) /LPF Urine Microscopic RBC 0-2 (0-5) /HPF Urine Microscopic WBC >100 A (0-5) /HPF Ur Epithelial Cells None Seen (None Seen) /HPF Urine Bacteria Many A (None Seen) /HPF Urine Culture Reflexed ORDERED SEPARATELY (NO) Influenza Type A Ag (NEGATIVE) Influenza Type B Ag (NEGATIVE) RSV (PCR) (NEGATIVE) SARS-CoV-2 (PCR) (NEGATIVE) Slides for Path Review YES 11/18/24 11/18/24 11/18/24 Range/Units 12:45 12:45 12:45 WBC (3.98-10.04) x10^3/uL RBC (3.93-5.22) x10^6/uL Hgb (11.2-15.7) g/dL Hct (34.1-44.9) % MCV (79.4-94.8) fL MCH (25.6-32.2) pg MCHC (32.2-35.5) g/dL RDW (11.7-14.4) % Plt Count (182-369) x10^3/uL MPV (9.4-12.3) fL Gran % (34.0-71.1) % Immature Gran % (Auto) (0.001-0.429) % Nucleat RBC Rel Count (0.00-0.2) % Eos # (Auto) (0.04-0.36) x10^3/uL Immature Gran # (Auto) (0.001-0.031) x10^3u/L Absolute Lymphs (auto) (1.18-3.74) x10^3/uL Absolute Monos (auto) (0.24-0.86) x10^3/uL Absolute Nucleated RBC (0.00-0.012) x10^3u/L Lymphocytes % (19.3-51.7) % Monocytes % (4.7-12.5) % Eosinophils % (0.7-5.8) % Basophils % (0.1-1.2) % Absolute Granulocytes (1.56-6.13) x10^3/uL Basophils # (0.01-0.08) x10^3/uL PT 10.5 (9.4-12.5) SECONDS INR 0.96 (0.8-3.0) Sodium (135-145) mmol/L Potassium (3.5-5.1) mmol/L Chloride (98-107) mmol/L Carbon Dioxide (22-30) mmol/L Anion Gap (5-15) MEQ/L BUN (7-17) mg/dL Creatinine (0.52-1.04) mg/dL Estimated GFR ML/MIN Glucose (74-106) mg/dL Lactic Acid (0.4-2.0) Calcium (8.4-10.2) mg/dL Total Bilirubin (0.2-1.3) mg/dL AST (14-36) U/L ALT (0-35) U/L Alkaline Phosphatase (38-126) U/L Troponin I 0.012 (0.000-0.033) ng/mL NT-Pro-B Natriuret Pep (<300) pg/mL Serum Total Protein (6.3-8.2) g/dL Albumin (3.5-5.0) g/dL Procalcitonin (0.030-0.080) ng/mL Urine Color (Yellow) Urine Appearance (Clear) Urine pH (4.6-8.0) Ur Specific [place] (1.005-1.030) Urine Protein (Negative) Urine Glucose (UA) (Negative) mg/dL Urine Ketones (Negative) Urine Blood (Negative) Urine Nitrite (Negative) Urine Bilirubin (Negative) Urine Urobilinogen (0.2) mg/dL Ur Leukocyte Esterase (Negative) U Hyaline Cast (Auto) (0-2) /LPF Urine Microscopic RBC (0-5) /HPF Urine Microscopic WBC (0-5) /HPF Ur Epithelial Cells (None Seen) /HPF Urine Bacteria (None Seen) /HPF Urine Culture Reflexed (NO) Influenza Type A Ag NEGATIVE (NEGATIVE) Influenza Type B Ag NEGATIVE (NEGATIVE) RSV (PCR) NEGATIVE (NEGATIVE) SARS-CoV-2 (PCR) NEGATIVE (NEGATIVE) Slides for Path Review 11/18/24 11/18/24 Range/Units 12:45 12:50 WBC (3.98-10.04) x10^3/uL RBC (3.93-5.22) x10^6/uL Hgb (11.2-15.7) g/dL Hct (34.1-44.9) % MCV (79.4-94.8) fL MCH (25.6-32.2) pg MCHC (32.2-35.5) g/dL RDW (11.7-14.4) % Plt Count (182-369) x10^3/uL MPV (9.4-12.3) fL Gran % (34.0-71.1) % Immature Gran % (Auto) (0.001-0.429) % Nucleat RBC Rel Count (0.00-0.2) % Eos # (Auto) (0.04-0.36) x10^3/uL Immature Gran # (Auto) (0.001-0.031) x10^3u/L Absolute Lymphs (auto) (1.18-3.74) x10^3/uL Absolute Monos (auto) (0.24-0.86) x10^3/uL Absolute Nucleated RBC (0.00-0.012) x10^3u/L Lymphocytes % (19.3-51.7) % Monocytes % (4.7-12.5) % Eosinophils % (0.7-5.8) % Basophils % (0.1-1.2) % Absolute Granulocytes (1.56-6.13) x10^3/uL Basophils # (0.01-0.08) x10^3/uL PT (9.4-12.5) SECONDS INR (0.8-3.0) Sodium (135-145) mmol/L Potassium (3.5-5.1) mmol/L Chloride (98-107) mmol/L Carbon Dioxide (22-30) mmol/L Anion Gap (5-15) MEQ/L BUN (7-17) mg/dL Creatinine (0.52-1.04) mg/dL Estimated GFR ML/MIN Glucose (74-106) mg/dL Lactic Acid 0.9 (0.4-2.0) Calcium (8.4-10.2) mg/dL Total Bilirubin (0.2-1.3) mg/dL AST (14-36) U/L ALT (0-35) U/L Alkaline Phosphatase (38-126) U/L Troponin I (0.000-0.033) ng/mL NT-Pro-B Natriuret Pep 3290 (<300) pg/mL Serum Total Protein (6.3-8.2) g/dL Albumin (3.5-5.0) g/dL Procalcitonin 3.160 H* (0.030-0.080) ng/mL Urine Color (Yellow) Urine Appearance (Clear) Urine pH (4.6-8.0) Ur Specific [place] (1.005-1.030) Urine Protein (Negative) Urine Glucose (UA) (Negative) mg/dL Urine Ketones (Negative) Urine Blood (Negative) Urine Nitrite (Negative) Urine Bilirubin (Negative) Urine Urobilinogen (0.2) mg/dL Ur Leukocyte Esterase (Negative) U Hyaline Cast (Auto) (0-2) /LPF Urine Microscopic RBC (0-5) /HPF Urine Microscopic WBC (0-5) /HPF Ur Epithelial Cells (None Seen) /HPF Urine Bacteria (None Seen) /HPF Urine Culture Reflexed (NO) Influenza Type A Ag (NEGATIVE) Influenza Type B Ag (NEGATIVE) RSV (PCR) (NEGATIVE) SARS-CoV-2 (PCR) (NEGATIVE) Slides for Path Review - Radiology Impressions Radiology Exams & Impressions: Radiology Procedures Category Date Time Status CHEST 1 VIEW (PORTABLE) Stat Exams 11/18/24 12:03 Completed HEAD WITHOUT CONTRAST [CT] Stat Exams 11/18/24 12:31 Completed NECK WO CONTRAST [CT] Stat Exams 11/18/24 12:32 Completed - Other Procedures and Tests Respiratory Therapy 11/18/24 12:13 Respiratory Therapy Assessment DAILY Assessment/Plan (1) Sepsis Current Visit: Yes Status: Acute Assessment & Plan: -Meet criteria with temp 103.6, tachypnea, tachycardia - known sources of infection UTI/pneuomina -CXR showed patchy opacities and left lower lobe infiltrate consistent with pneumonia, along with cardiomegaly and vascular congestion suggesting volume overload -WBC at 17.4- trend -Procal at 3.160 -Ceftriaxone/azith started in ED- reviewed past ucult with VRE - will start on linezolid/cefepime -Blood/Urine/sputum cultures pending - will follow -Supplemental oxygen with goal spo2 > 92% -currently at 2L 94% -ABG with significant lethargy -PPI/VTE heparin -COVID/FLU/RSV negative -RT eval and follow -IVF contraindicated with fluid overload noted on CXR (2) Acute respiratory failure with hypoxia Current Visit: Yes Status: Acute Assessment & Plan: -see sepsis Code(s): J96.01 - ACUTE RESPIRATORY FAILURE WITH HYPOXIA (3) CHF (congestive heart failure) Current Visit: Yes Status: Acute Assessment & Plan: -CXR as stated above -Most recent echo 11/16/23 IMPRESSION: EF 72% 1. NORMAL CONTRACTILITY OF THE LEFT VENTRICLE. 2. MILD CONCENTRIC LEFT VENTRICULAR HYPERTROPHY. 3. POSSIBLE IMPAIRED LEFT VENTRICULAR RELAXATION. 4. MILD TRICUSPID REGURGITATION. 5. NORMAL RIGHT VENTRICULAR SYSTOLIC PRESSURE. 6. MITRAL VALVULAR CALCIFICATION. -continue home meds -consider echo Code(s): I50.9 - HEART FAILURE, UNSPECIFIED (4) COPD exacerbation Current Visit: Yes Status: Acute Assessment & Plan: -see sepsis Code(s): J44.1 - CHRONIC OBSTRUCTIVE PULMONARY DISEASE W (ACUTE) EXACERBATION (5) Afib Current Visit: Yes Status: Acute Assessment & Plan: -EKG showed sinus tachycardia with no acute ST elevations and negative initial troponin -Reviewed intermediate documentation with nurse- no anticoagulation noted- will call SNF to verify Code(s): I48.91 - UNSPECIFIED ATRIAL FIBRILLATION (6) Acute UTI (urinary tract infection) Current Visit: Yes Status: Acute Assessment & Plan: -UA suspicious for UTI - Ceftriaxone started - Code(s): N39.0 - URINARY TRACT INFECTION, SITE NOT SPECIFIED (7) Pneumonia Current Visit: Yes Status: Acute Assessment & Plan: -see sepsis Code(s): J18.9 - PNEUMONIA, UNSPECIFIED ORGANISM (8) Hypothyroid Current Visit: Yes Status: Acute Assessment & Plan: -continue levothyroxine Code(s): E03.9 - HYPOTHYROIDISM, UNSPECIFIED (9) Acute kidney injury superimposed on CKD Current Visit: No Status: Acute Assessment & Plan: -Creat at 2.65, baseline around 2.4-2.5 -Patient received IVF in ED -CXR with fluid overload, will hold further IVF -monitor renal/lytes -avoid nephrotoxic agents - renal dose medications Code(s): N17.9 - ACUTE KIDNEY FAILURE, UNSPECIFIED; N18.9 - CHRONIC KIDNEY DISEASE, UNSPECIFIED (10) HTN (hypertension) Current Visit: Yes Status: Acute Assessment & Plan: -continue home meds- stable Code(s): I10 - ESSENTIAL (PRIMARY) HYPERTENSION (11) Hypocalcemia due to chronic kidney disease Current Visit: Yes Status: Acute Assessment & Plan: -continue calcium carbonate home dosing Code(s): E83.51 - HYPOCALCEMIA; N18.9 - CHRONIC KIDNEY DISEASE, UNSPECIFIED (12) Type 2 diabetes mellitus Current Visit: Yes Status: Acute Assessment & Plan: -ADA diet -SSI/glargine/meal time -A1c 7.7 on 09/05/24 VTE: heparin PPI: Protonix Dispo: 2-3 days Telemedicine Encounter - Telemedicine Encounter Telemedicine Encounter: "The entirety of this encounter was performed via Telemedicine" This visit was performed using real-time audio and video connection between my location and thepatients locationwith the assistance of a surrogateat the patients location. Written or verbal consent was obtained from the patient/gu ardian to perform this visit [facility] technology. Any patient questions regarding the telemedicine interaction were answered.
[2024-11-18] MEDS ORDERED: TYLENOL 325 MG PO PRN (16:20)
[2024-11-18] MEDS ORDERED: Docusate Sodium 100 MG PO PRN (16:20)
[2024-11-18] MEDS ORDERED: Xopenex 1.25 MG/0.5 ML UD NEBULE IH PRN (16:20)
[2024-11-18] MEDS: PHARMACY DOSING REQUEST MC ONE (16:37)
[2024-11-18] MEDS ORDERED: Atrovent 0.5MG NEBULE IH PRN (16:39)
[2024-11-18] MEDS ORDERED: Tums EX 750 MG ONE (16:56)
[2024-11-18] MEDS: Zyvox 600 MG IV PREMIX*** 300 ML IV ONE (16:59)
[2024-11-18] MEDS: CALCIUM CARBONATE 400 MG PO SCH (17:10)
--- NOTE | 2024-11-18 19:37 | XRAY ---
CLINICAL HISTORY: SOB COMPARISON: X ray 11/18/2024 11:00:29 DATABASE REPORT WRITER and CT neck date11/18/2024 11:52:55 DATABASE REPORT WRITER TECHNIQUE: Contiguous axial CT images of the chest were acquired without administration of intravenous contrast. Coronal and sagittal reconstructions were obtained. One of the following dose reduction techniques were utilized for this exam: Automated exposure control, adjustment of the mA and/or kV according to patient size, use of iterative reconstruction. DLP: 430.7 mGy-cm, CTDI: 10.8 mGy. FINDINGS: Lungs: Both lungs show a diffuse mosaic pattern in the form of alternating areas of air trapping and areas of parenchymal veiling. Bilateral basal linear atelectatic bands. No evidence of consolidation, collapse, or focal lesions. No pulmonary nodules or masses are identified. No evidence of interstitial lung disease or emphysema. Minimal to mild bilateral pleural effusion, more on the left side, Mediastinum: No mediastinal mass or abnormal lymphadenopathy. mild cardiomegaly with aortic valve stent/metallic valve. aortic atheromatous calcifications. Hilar Structures: The hilar structures appear normal without enlargement or abnormality. Trachea and Main Bronchi: Inward indentation of the posterior tracheal wall with dilated upper esophagus. The esophagus shows mild mural thickening with no masses or obstruction. Chest Wall: The chest wall is unremarkable with no evidence of soft tissue or bony abnormalities. thoracic spondylosis and osteopenia. 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 Upper Abdomen: Visualized portions of the liver and spleen show innumerable calcific foci, likely of old granulomatous infection. left renal cyst. evidence of left mastectomy. The right breast shows small hypodense nodule measuring 2 x 1.5 cm Bones: Visualized osseous structures are normal, no evidence of fracture or lytic/sclerotic lesions. IMPRESSION: 1. Mosaic pattern of both lungs in the form of alternating areas of air trapping and areas of parenchymal veiling could be related to small airway disease. 2. Minimal to mild bilateral pleural effusion, more on the left side, with bilateral basal linear atelectatic bands. 3. Inward indentation of the posterior tracheal wall with dilated upper esophagus, with mild mural thickening of the esophagus with no masses or obstruction. for clinical correlation. 4. Cardiomegaly. 5. Right breast small hypodense nodule for sonomammography. Electronically Signed by: Claudine Monge MD. (11/18/2024 19:32:25 EDT)
[2024-11-18] MEDS ORDERED: NON-FORMULARY ITEM (Metoprolol Tartrate [Lopressor] 100 MG Tablet) PO SCH (22:00)
[2024-11-18] MEDS ORDERED: Lopressor 50 MG PO SCH (22:00)
[2024-11-18] MEDS: FEOSOL 325 MG PO SCH (22:12)
[2024-11-18] MEDS: HEPARIN 5000 UNITS/0.5 ML (HIGH RISK MED) SQ SCH (22:12)
[2024-11-18] MEDS: BUSPAR 5 MG PO SCH (22:12)
[2024-11-18] MEDS: Flomax 0.4 MG PO SCH (22:12)
[2024-11-18] MEDS: MAG-OX 400 PO SCH (22:13)
[2024-11-18] MEDS: Tums EX 750 MG PO SCH (22:13)
[2024-11-18] MEDS: Pepcid 20 MG PO SCH (22:13)
[2024-11-18] MEDS: MELATONIN PO SCH (22:13)
[2024-11-18] MEDS: Multaq 400 MG PO SCH (22:13)
[2024-11-18] MEDS: HUMALOG SQ PRN (22:14)
[2024-11-18] MEDS: CRANBERRY FRUIT EXTRACT 250 MG PO SCH (22:20)
[2024-11-18] MEDS: NON-FORMULARY ITEM (Cetirizine Hcl [Zyrtec] 10 MG Capsule) PO SCH (22:20)
[2024-11-18] MEDS: Lantus Insulin SQ SCH (23:09)
[2024-11-19] MEDS ORDERED: MEDICATION INTERVENTION MC SCH ×2 (07:45)
[2024-11-19] MEDS: HUMALOG SQ SCH (08:23)
[2024-11-19 09:41] LABS: Hematocrit 28.3 % (34.1-44.9); Hemoglobin 9.3 g/dL (11.2-15.7); Mean Cell Volume 91.9 fL (79.4-94.8); Mean Corpuscular Hemoglobin 30.2 pg (25.6-32.2); Mean Corpuscular Hgb Concent. 32.9 g/dL (32.2-35.5); Mean Platelet Volume 11.8 fL (9.4-12.3); Platelet Count 318 x10^3/uL (182-369); Red Blood Count 3.08 x10^6/uL (3.93-5.22); Red Cell Distribution Width 13.2 % (11.7-14.4); White Blood Count 16.9 x10^3/uL (3.98-10.04)
[2024-11-19 09:54] LABS: ANION GAP 20.1 MEQ/L (5-15); BILIRUBIN,TOTAL 0.3 mg/dL (0.2-1.3); Calcium 7.1 mg/dL (8.4-10.2); Creatinine 1 2.61 mg/dL (0.52-1.04); EST GLOMERULAR FILTRATION RATE 18.1 ML/MIN; Potassium 4.3 mmol/L (3.5-5.1); Total Protein 7.4 g/dL (6.3-8.2)
[2024-11-19] MEDS ORDERED: LEVOTHYROXINE SODIUM 175 MCG PO SCH (10:00)
[2024-11-19] MEDS ORDERED: VITAMIN B-12 100 MCG PO SCH (10:00)
[2024-11-19] MEDS ORDERED: NON-FORMULARY ITEM (Calcitriol [Calcitriol] 0.5 MCG Capsule) PO SCH (10:00)
[2024-11-19] MEDS ORDERED: NON-FORMULARY ITEM (Rosuvastatin Calcium [Rosuvastatin Calcium] 5 MG Tablet) PO SCH (10:00)
[2024-11-19] MEDS ORDERED: NON-FORMULARY ITEM (Amlodipine Besylate [Norvasc] 2.5 MG Tablet) PO SCH (10:00)
[2024-11-19] MEDS ORDERED: Lasix 20 MG/2 ML IV SCH (10:00)
[2024-11-19] MEDS ORDERED: Xylocaine-Mpf 2% 5 Ml Vial ONE (11:00)
[2024-11-19] MEDS: FOLATE 1 MG PO SCH (11:24)
[2024-11-19] MEDS: Lyrica 50MG PO SCH (11:25)
[2024-11-19] MEDS: Vitamin B-12 500 MCG PO SCH (11:26)
[2024-11-19] MEDS: Singulair 10 MG PO SCH (11:26)
[2024-11-19] MEDS: SYNTHROID PO SCH (11:27)
[2024-11-19] MEDS: NORVASC 5 MG PO SCH (11:28)
[2024-11-19] MEDS: Klor Con PO SCH (11:28)
[2024-11-19] MEDS: Acidophilus TABLET PO SCH (11:29)
[2024-11-19] MEDS: ROCEPHIN 1 GM / 100 ML NaCl 1 GM/100 ML IVPB IV SCH (11:29)
[2024-11-19] MEDS: Zyvox 600 MG IV PREMIX*** 300 ML IV SCH (11:31)
--- NOTE | 2024-11-19 11:50 | PCM.NOTE ---
Date and Time: 11/19/24 1136 Subjective Assessment: is a 79 year old female resident of [facility] with pmhx of CAD, PE/DVT, anxiety, celiac disease, GERD, HTN, hypothyroid, CKD, CHF, COPD, PVD, and atrial fibrillation, ESBL, CVA, HLD, anemia, depression, breast cancer, and DM II. She presented to ED 11/18/24 with complaints of altered mental status, difficulty breathing and fever. Upon arrival patient febrile to 103.6F, tachycardic, tachypneic, and requiring 4L oxygen despite being normally on room air. On ED exam she had audible wheezing and stridor, along with mild tongue swelling. She was treated with DuoNebs, racemic epinephrine, Solu-Medrol, Benadryl, and Pepcid with resolution of stridor and airway symptoms. On admission she was on 2L O2 with saturations at 94%. Today she is RA 94% Chest X-ray showed patchy opacities and left lower lobe infiltrate consistent with pneumonia, along with cardiomegaly and vascular congestion suggesting volume overload. Head CT showed no acute intracranial process, but chronic infarct changes. CT neck revealed posterior tracheal indentation and dilated esophagus, suggestive of possible structural abnormality or aspiration risk, for which further evaluation with CT chest or endoscopy is recommended. EKG showed sinus tachycardia with no acute ischemia, and initial troponin was negative. Lab findings remarkable for leukocytosis (WBC 17.4), elevated procalcitonin (3.16), and UA suggestive of a UTI (positive nitrites and large leukocyte esterase). Creatinine was mildly elevated at 2.65 (baseline 2.3), likely reflecting [id number] kidney injury. She was admitted for sepsis secondary to pneumonia and UTI, complicated by acute hypoxic respiratory failure, and possible volume overload. Today she is awake and alert and feeling much better. She thinks she had an allergic reaction to Lev[facility]. UC negative. She was able to eat her breakfast this AM without any concerns. She was given benadryl yesterday for mouth and tongue edema and today that has resolved she explained. BC x2 gram negative rods and sensitivity pending. Continue Zyvox and ceftriaxone for UTI. Today WBC 16.4, Creat 1.61- improving. Continue Lasix 40 BID for CHF, BL pleural effusions. Pt denies CP, SOB, abd. pain, N/V/D. - Review of Systems Constitutional: No Fever, No Chills Eyes: No Symptoms Ears, Nose, & Throat: No Symptoms Respiratory: No Cough, No Short Of Breath Cardiac: No Chest Pain, No Edema, No Syncope Abdominal/Gastrointestinal: No Abdominal Pain, No Nausea, No Vomiting, No Diarrhea Genitourinary Symptoms: No Dysuria Musculoskeletal: No Back Pain, No Neck Pain Skin: No Rash Neurological: No Dizziness, No Focal Weakness, No Sensory Changes Psychological: No Symptoms Endocrine: No Symptoms Hematologic/Lymphatic: No Symptoms Immunological/Allergic: No Symptoms Objective Exam General Appearance: no apparent distress, alert Neurologic Exam: alert, oriented x 3, cooperative, normal mood/affect, nml cerebellar function, sensation nml, No motor deficits Skin Exam: warm, dry, pale Eye Exam: PERRL, EOMI, eyes nml inspection Ears, Nose, Throat Exam: normal ENT inspection, pharynx normal, moist mucous membranes Neck Exam: normal inspection, non-tender, supple, full range of motion Respiratory Exam: normal breath sounds, lungs clear, No respiratory distress Cardiovascular Exam: regular rate/rhythm, normal heart sounds Gastrointestinal/Abdomen Exam: soft, No tenderness, No mass Extremity Exam: normal inspection, normal range of motion Back Exam: normal inspection, normal range of motion, No CVA tenderness, No vertebral tenderness Pelvic Exam: deferred Rectal Exam: deferred Objective Data Vital Signs: Vital Signs - 24 hr Temp Pulse Resp BP BP Pulse Ox 11/19/24 07:39 98.6 F 69 16 135/74 94 L 11/19/24 06:59 94 L 11/19/24 06:33 64 18 98 11/19/24 04:00 97.6 F 61 18 140/61 96 11/18/24 23:19 97.1 F 65 22 139/63 96 11/18/24 20:38 96 11/18/24 20:00 97.1 F 70 20 131/62 96 11/18/24 17:29 98.0 F 68 16 122/58 94 L 11/18/24 16:43 68 18 96 11/18/24 15:53 96 11/18/24 15:07 98 11/18/24 15:00 70 20 121/60 97 11/18/24 14:31 101.5 F 72 23 137/63 99 11/18/24 14:00 75 18 131/55 98 11/18/24 13:31 75 23 130/59 98 11/18/24 13:03 102.9 F 79 134/60 95 11/18/24 12:40 93 H 14 11/18/24 12:33 103.6 F 97 H 22 98 11/18/24 12:14 98 H 26 H 98 11/18/24 12:13 97 H 30 H 159/93 97 11/18/24 12:12 99 H 100 11/18/24 12:10 98 H 100 11/18/24 12:00 96 H 98 11/18/24 11:57 97 H 100 11/18/24 11:50 89 L 11/18/24 11:49 102.6 F 34 H Pain Assessment - Last Documented Pain Intensity 0 Intake and Output: Intake & Output 11/16/24 11/17/24 11/18/24 11/19/24 11:59 11:59 11:59 11:59 Intake Total 1519 Output Total 2525 Balance -1006 Weight 80.3 kg 78.9 kg Lab Results: Lab Results-Last 24 Hours 11/18/24 11/18/24 11/18/24 Range/Units 12:03 12:33 12:45 WBC 17.4 H (3.98-10.04) x10^3/uL RBC 3.15 L (3.93-5.22) x10^6/uL Hgb 9.5 L (11.2-15.7) g/dL Hct 28.3 L (34.1-44.9) % MCV 89.8 (79.4-94.8) fL MCH 30.2 (25.6-32.2) pg MCHC 33.6 (32.2-35.5) g/dL RDW 13.3 (11.7-14.4) % Plt Count 313 (182-369) x10^3/uL MPV 11.4 (9.4-12.3) fL Gran % 84.1 H (34.0-71.1) % Immature Gran % (Auto) 0.6 H (0.001-0.429) % Nucleat RBC Rel Count 0.0 (0.00-0.2) % Eos # (Auto) 0.10 (0.04-0.36) x10^3/uL Immature Gran # (Auto) 0.11 H (0.001-0.031) x10^3u/L Absolute Lymphs (auto) 0.81 L (1.18-3.74) x10^3/uL Absolute Monos (auto) 1.70 H (0.24-0.86) x10^3/uL Absolute Nucleated RBC 0.00 (0.00-0.012) x10^3u/L Lymphocytes % 4.7 L (19.3-51.7) % Monocytes % 9.8 (4.7-12.5) % Eosinophils % 0.6 L (0.7-5.8) % Basophils % 0.2 (0.1-1.2) % Absolute Granulocytes 14.65 H (1.56-6.13) x10^3/uL Basophils # 0.03 (0.01-0.08) x10^3/uL PT (9.4-12.5) SECONDS INR (0.8-3.0) Sodium 140 (135-145) mmol/L Potassium 4.4 (3.5-5.1) mmol/L Chloride 100 (98-107) mmol/L Carbon Dioxide 22 (22-30) mmol/L Anion Gap 21.6 H (5-15) MEQ/L BUN 55 H (7-17) mg/dL Creatinine 2.65 H (0.52-1.04) mg/dL Estimated GFR 17.8 ML/MIN Glucose 140 H (74-106) mg/dL POC Glucometer (74 to 106) mg/dL Lactic Acid (0.4-2.0) Calcium 7.6 L (8.4-10.2) mg/dL Total Bilirubin 0.60 (0.2-1.3) mg/dL AST 34 (14-36) U/L ALT 25 (0-35) U/L Alkaline Phosphatase 94 (38-126) U/L Troponin I (0.000-0.033) ng/mL NT-Pro-B Natriuret Pep (<300) pg/mL Serum Total Protein 7.8 (6.3-8.2) g/dL Albumin 4.3 (3.5-5.0) g/dL Procalcitonin (0.030-0.080) ng/mL Urine Color Yellow (Yellow) Urine Appearance Cloudy A (Clear) Urine pH 5.5 (4.6-8.0) Ur Specific Butler 1.010 (1.005-1.030) Urine Protein 30 (Negative) Urine Glucose (UA) Negative (Negative) mg/dL Urine Ketones Negative (Negative) Urine Blood Small A (Negative) Urine Nitrite Positive A (Negative) Urine Bilirubin Negative (Negative) Urine Urobilinogen 0.2 (0.2) mg/dL Ur Leukocyte Esterase Large A (Negative) U Hyaline Cast (Auto) NONE SEEN (0-2) /LPF Urine Microscopic RBC 0-2 (0-5) /HPF Urine Microscopic WBC >100 A (0-5) /HPF Ur Epithelial Cells None Seen (None Seen) /HPF Urine Bacteria Many A (None Seen) /HPF Urine Culture Reflexed ORDERED SEPARATELY (NO) Influenza Type A Ag (NEGATIVE) Influenza Type B Ag (NEGATIVE) RSV (PCR) (NEGATIVE) SARS-CoV-2 (PCR) (NEGATIVE) Slides for Path Review YES 11/18/24 11/18/24 11/18/24 Range/Units 12:45 12:45 12:45 WBC (3.98-10.04) x10^3/uL RBC (3.93-5.22) x10^6/uL Hgb (11.2-15.7) g/dL Hct (34.1-44.9) % MCV (79.4-94.8) fL MCH (25.6-32.2) pg MCHC (32.2-35.5) g/dL RDW (11.7-14.4) % Plt Count (182-369) x10^3/uL MPV (9.4-12.3) fL Gran % (34.0-71.1) % Immature Gran % (Auto) (0.001-0.429) % Nucleat RBC Rel Count (0.00-0.2) % Eos # (Auto) (0.04-0.36) x10^3/uL Immature Gran # (Auto) (0.001-0.031) x10^3u/L Absolute Lymphs (auto) (1.18-3.74) x10^3/uL Absolute Monos (auto) (0.24-0.86) x10^3/uL Absolute Nucleated RBC (0.00-0.012) x10^3u/L Lymphocytes % (19.3-51.7) % Monocytes % (4.7-12.5) % Eosinophils % (0.7-5.8) % Basophils % (0.1-1.2) % Absolute Granulocytes (1.56-6.13) x10^3/uL Basophils # (0.01-0.08) x10^3/uL PT 10.5 (9.4-12.5) SECONDS INR 0.96 (0.8-3.0) Sodium (135-145) mmol/L Potassium (3.5-5.1) mmol/L Chloride (98-107) mmol/L Carbon Dioxide (22-30) mmol/L Anion Gap (5-15) MEQ/L BUN (7-17) mg/dL Creatinine (0.52-1.04) mg/dL Estimated GFR ML/MIN Glucose (74-106) mg/dL POC Glucometer (74 to 106) mg/dL Lactic Acid (0.4-2.0) Calcium (8.4-10.2) mg/dL Total Bilirubin (0.2-1.3) mg/dL AST (14-36) U/L ALT (0-35) U/L Alkaline Phosphatase (38-126) U/L Troponin I 0.012 (0.000-0.033) ng/mL NT-Pro-B Natriuret Pep (<300) pg/mL Serum Total Protein (6.3-8.2) g/dL Albumin (3.5-5.0) g/dL Procalcitonin (0.030-0.080) ng/mL Urine Color (Yellow) Urine Appearance (Clear) Urine pH (4.6-8.0) Ur Specific Butler (1.005-1.030) Urine Protein (Negative) Urine Glucose (UA) (Negative) mg/dL Urine Ketones (Negative) Urine Blood (Negative) Urine Nitrite (Negative) Urine Bilirubin (Negative) Urine Urobilinogen (0.2) mg/dL Ur Leukocyte Esterase (Negative) U Hyaline Cast (Auto) (0-2) /LPF Urine Microscopic RBC (0-5) /HPF Urine Microscopic WBC (0-5) /HPF Ur Epithelial Cells (None Seen) /HPF Urine Bacteria (None Seen) /HPF Urine Culture Reflexed (NO) Influenza Type A Ag NEGATIVE (NEGATIVE) Influenza Type B Ag NEGATIVE (NEGATIVE) RSV (PCR) NEGATIVE (NEGATIVE) SARS-CoV-2 (PCR) NEGATIVE (NEGATIVE) Slides for Path Review 11/18/24 11/18/24 11/18/24 Range/Units 12:45 12:50 16:13 WBC (3.98-10.04) x10^3/uL RBC (3.93-5.22) x10^6/uL Hgb (11.2-15.7) g/dL Hct (34.1-44.9) % MCV (79.4-94.8) fL MCH (25.6-32.2) pg MCHC (32.2-35.5) g/dL RDW (11.7-14.4) % Plt Count (182-369) x10^3/uL MPV (9.4-12.3) fL Gran % (34.0-71.1) % Immature Gran % (Auto) (0.001-0.429) % Nucleat RBC Rel Count (0.00-0.2) % Eos # (Auto) (0.04-0.36) x10^3/uL Immature Gran # (Auto) (0.001-0.031) x10^3u/L Absolute Lymphs (auto) (1.18-3.74) x10^3/uL Absolute Monos (auto) (0.24-0.86) x10^3/uL Absolute Nucleated RBC (0.00-0.012) x10^3u/L Lymphocytes % (19.3-51.7) % Monocytes % (4.7-12.5) % Eosinophils % (0.7-5.8) % Basophils % (0.1-1.2) % Absolute Granulocytes (1.56-6.13) x10^3/uL Basophils # (0.01-0.08) x10^3/uL PT (9.4-12.5) SECONDS INR (0.8-3.0) Sodium (135-145) mmol/L Potassium (3.5-5.1) mmol/L Chloride (98-107) mmol/L Carbon Dioxide (22-30) mmol/L Anion Gap (5-15) MEQ/L BUN (7-17) mg/dL Creatinine (0.52-1.04) mg/dL Estimated GFR ML/MIN Glucose (74-106) mg/dL POC Glucometer (74 to 106) mg/dL Lactic Acid 0.9 (0.4-2.0) Calcium (8.4-10.2) mg/dL Total Bilirubin (0.2-1.3) mg/dL AST (14-36) U/L ALT (0-35) U/L Alkaline Phosphatase (38-126) U/L Troponin I 0.026 (0.000-0.033) ng/mL NT-Pro-B Natriuret Pep 3290 (<300) pg/mL Serum Total Protein (6.3-8.2) g/dL Albumin (3.5-5.0) g/dL Procalcitonin 3.160 H* (0.030-0.080) ng/mL Urine Color (Yellow) Urine Appearance (Clear) Urine pH (4.6-8.0) Ur Specific Butler (1.005-1.030) Urine Protein (Negative) Urine Glucose (UA) (Negative) mg/dL Urine Ketones (Negative) Urine Blood (Negative) Urine Nitrite (Negative) Urine Bilirubin (Negative) Urine Urobilinogen (0.2) mg/dL Ur Leukocyte Esterase (Negative) U Hyaline Cast (Auto) (0-2) /LPF Urine Microscopic RBC (0-5) /HPF Urine Microscopic WBC (0-5) /HPF Ur Epithelial Cells (None Seen) /HPF Urine Bacteria (None Seen) /HPF Urine Culture Reflexed (NO) Influenza Type A Ag (NEGATIVE) Influenza Type B Ag (NEGATIVE) RSV (PCR) (NEGATIVE) SARS-CoV-2 (PCR) (NEGATIVE) Slides for Path Review 11/18/24 11/18/24 11/18/24 Range/Units 16:34 16:34 20:10 WBC (3.98-10.04) x10^3/uL RBC (3.93-5.22) x10^6/uL Hgb (11.2-15.7) g/dL Hct (34.1-44.9) % MCV (79.4-94.8) fL MCH (25.6-32.2) pg MCHC (32.2-35.5) g/dL RDW (11.7-14.4) % Plt Count (182-369) x10^3/uL MPV (9.4-12.3) fL Gran % (34.0-71.1) % Immature Gran % (Auto) (0.001-0.429) % Nucleat RBC Rel Count (0.00-0.2) % Eos # (Auto) (0.04-0.36) x10^3/uL Immature Gran # (Auto) (0.001-0.031) x10^3u/L Absolute Lymphs (auto) (1.18-3.74) x10^3/uL Absolute Monos (auto) (0.24-0.86) x10^3/uL Absolute Nucleated RBC (0.00-0.012) x10^3u/L Lymphocytes % (19.3-51.7) % Monocytes % (4.7-12.5) % Eosinophils % (0.7-5.8) % Basophils % (0.1-1.2) % Absolute Granulocytes (1.56-6.13) x10^3/uL Basophils # (0.01-0.08) x10^3/uL PT (9.4-12.5) SECONDS INR (0.8-3.0) Sodium (135-145) mmol/L Potassium (3.5-5.1) mmol/L Chloride (98-107) mmol/L Carbon Dioxide (22-30) mmol/L Anion Gap (5-15) MEQ/L BUN (7-17) mg/dL Creatinine (0.52-1.04) mg/dL Estimated GFR ML/MIN Glucose (74-106) mg/dL POC Glucometer 115 H 115 H (74 to 106) mg/dL Lactic Acid (0.4-2.0) Calcium (8.4-10.2) mg/dL Total Bilirubin (0.2-1.3) mg/dL AST (14-36) U/L ALT (0-35) U/L Alkaline Phosphatase (38-126) U/L Troponin I 0.023 (0.000-0.033) ng/mL NT-Pro-B Natriuret Pep (<300) pg/mL Serum Total Protein (6.3-8.2) g/dL Albumin (3.5-5.0) g/dL Procalcitonin (0.030-0.080) ng/mL Urine Color (Yellow) Urine Appearance (Clear) Urine pH (4.6-8.0) Ur Specific Butler (1.005-1.030) Urine Protein (Negative) Urine Glucose (UA) (Negative) mg/dL Urine Ketones (Negative) Urine Blood (Negative) Urine Nitrite (Negative) Urine Bilirubin (Negative) Urine Urobilinogen (0.2) mg/dL Ur Leukocyte Esterase (Negative) U Hyaline Cast (Auto) (0-2) /LPF Urine Microscopic RBC (0-5) /HPF Urine Microscopic WBC (0-5) /HPF Ur Epithelial Cells (None Seen) /HPF Urine Bacteria (None Seen) /HPF Urine Culture Reflexed (NO) Influenza Type A Ag (NEGATIVE) Influenza Type B Ag (NEGATIVE) RSV (PCR) (NEGATIVE) SARS-CoV-2 (PCR) (NEGATIVE) Slides for Path Review 11/18/24 11/19/24 11/19/24 Range/Units 22:05 07:22 09:35 WBC 16.9 H (3.98-10.04) x10^3/uL RBC 3.08 L (3.93-5.22) x10^6/uL Hgb 9.3 L (11.2-15.7) g/dL Hct 28.3 L (34.1-44.9) % MCV 91.9 (79.4-94.8) fL MCH 30.2 (25.6-32.2) pg MCHC 32.9 (32.2-35.5) g/dL RDW 13.2 (11.7-14.4) % Plt Count 318 (182-369) x10^3/uL MPV 11.8 (9.4-12.3) fL Gran % (34.0-71.1) % Immature Gran % (Auto) (0.001-0.429) % Nucleat RBC Rel Count (0.00-0.2) % Eos # (Auto) (0.04-0.36) x10^3/uL Immature Gran # (Auto) (0.001-0.031) x10^3u/L Absolute Lymphs (auto) (1.18-3.74) x10^3/uL Absolute Monos (auto) (0.24-0.86) x10^3/uL Absolute Nucleated RBC (0.00-0.012) x10^3u/L Lymphocytes % (19.3-51.7) % Monocytes % (4.7-12.5) % Eosinophils % (0.7-5.8) % Basophils % (0.1-1.2) % Absolute Granulocytes (1.56-6.13) x10^3/uL Basophils # (0.01-0.08) x10^3/uL PT (9.4-12.5) SECONDS INR (0.8-3.0) Sodium (135-145) mmol/L Potassium (3.5-5.1) mmol/L Chloride (98-107) mmol/L Carbon Dioxide (22-30) mmol/L Anion Gap (5-15) MEQ/L BUN (7-17) mg/dL Creatinine (0.52-1.04) mg/dL Estimated GFR ML/MIN Glucose (74-106) mg/dL POC Glucometer 379 H 341 H (74 to 106) mg/dL Lactic Acid (0.4-2.0) Calcium (8.4-10.2) mg/dL Total Bilirubin (0.2-1.3) mg/dL AST (14-36) U/L ALT (0-35) U/L Alkaline Phosphatase (38-126) U/L Troponin I (0.000-0.033) ng/mL NT-Pro-B Natriuret Pep (<300) pg/mL Serum Total Protein (6.3-8.2) g/dL Albumin (3.5-5.0) g/dL Procalcitonin (0.030-0.080) ng/mL Urine Color (Yellow) Urine Appearance (Clear) Urine pH (4.6-8.0) Ur Specific Butler (1.005-1.030) Urine Protein (Negative) Urine Glucose (UA) (Negative) mg/dL Urine Ketones (Negative) Urine Blood (Negative) Urine Nitrite (Negative) Urine Bilirubin (Negative) Urine Urobilinogen (0.2) mg/dL Ur Leukocyte Esterase (Negative) U Hyaline Cast (Auto) (0-2) /LPF Urine Microscopic RBC (0-5) /HPF Urine Microscopic WBC (0-5) /HPF Ur Epithelial Cells (None Seen) /HPF Urine Bacteria (None Seen) /HPF Urine Culture Reflexed (NO) Influenza Type A Ag (NEGATIVE) Influenza Type B Ag (NEGATIVE) RSV (PCR) (NEGATIVE) SARS-CoV-2 (PCR) (NEGATIVE) Slides for Path Review 11/19/24 11/19/24 Range/Units 09:35 11:34 WBC (3.98-10.04) x10^3/uL RBC (3.93-5.22) x10^6/uL Hgb (11.2-15.7) g/dL Hct (34.1-44.9) % MCV (79.4-94.8) fL MCH (25.6-32.2) pg MCHC (32.2-35.5) g/dL RDW (11.7-14.4) % Plt Count (182-369) x10^3/uL MPV (9.4-12.3) fL Gran % (34.0-71.1) % Immature Gran % (Auto) (0.001-0.429) % Nucleat RBC Rel Count (0.00-0.2) % Eos # (Auto) (0.04-0.36) x10^3/uL Immature Gran # (Auto) (0.001-0.031) x10^3u/L Absolute Lymphs (auto) (1.18-3.74) x10^3/uL Absolute Monos (auto) (0.24-0.86) x10^3/uL Absolute Nucleated RBC (0.00-0.012) x10^3u/L Lymphocytes % (19.3-51.7) % Monocytes % (4.7-12.5) % Eosinophils % (0.7-5.8) % Basophils % (0.1-1.2) % Absolute Granulocytes (1.56-6.13) x10^3/uL Basophils # (0.01-0.08) x10^3/uL PT (9.4-12.5) SECONDS INR (0.8-3.0) Sodium 139 (135-145) mmol/L Potassium 4.3 (3.5-5.1) mmol/L Chloride 97 L (98-107) mmol/L Carbon Dioxide 26 (22-30) mmol/L Anion Gap 20.1 H (5-15) MEQ/L BUN 55 H (7-17) mg/dL Creatinine 2.61 H (0.52-1.04) mg/dL Estimated GFR 18.1 ML/MIN Glucose 409 H (74-106) mg/dL POC Glucometer 311 H (74 to 106) mg/dL Lactic Acid (0.4-2.0) Calcium 7.1 L (8.4-10.2) mg/dL Total Bilirubin 0.30 (0.2-1.3) mg/dL AST 37 H (14-36) U/L ALT 38 H (0-35) U/L Alkaline Phosphatase 85 (38-126) U/L Troponin I (0.000-0.033) ng/mL NT-Pro-B Natriuret Pep (<300) pg/mL Serum Total Protein 7.4 (6.3-8.2) g/dL Albumin 4.0 (3.5-5.0) g/dL Procalcitonin (0.030-0.080) ng/mL Urine Color (Yellow) Urine Appearance (Clear) Urine pH (4.6-8.0) Ur Specific Butler (1.005-1.030) Urine Protein (Negative) Urine Glucose (UA) (Negative) mg/dL Urine Ketones (Negative) Urine Blood (Negative) Urine Nitrite (Negative) Urine Bilirubin (Negative) Urine Urobilinogen (0.2) mg/dL Ur Leukocyte Esterase (Negative) U Hyaline Cast (Auto) (0-2) /LPF Urine Microscopic RBC (0-5) /HPF Urine Microscopic WBC (0-5) /HPF Ur Epithelial Cells (None Seen) /HPF Urine Bacteria (None Seen) /HPF Urine Culture Reflexed (NO) Influenza Type A Ag (NEGATIVE) Influenza Type B Ag (NEGATIVE) RSV (PCR) (NEGATIVE) SARS-CoV-2 (PCR) (NEGATIVE) Slides for Path Review Radiology Exams: Radiology Procedures Category Date Time Status CHEST 1 VIEW (PORTABLE) Stat Exams 11/18/24 12:03 Completed CHEST WITHOUT CONTRAST [CT] Stat Exams 11/18/24 17:07 Completed HEAD WITHOUT CONTRAST [CT] Stat Exams 11/18/24 12:31 Completed NECK WO CONTRAST [CT] Stat Exams 11/18/24 12:32 Completed Medications: Medications Generic Name Dose Route Start Last Admin Trade Name Freq PRN Reason Stop Dose Admin Acetaminophen 650 mg 11/18/24 16:20 Acetaminophen 325 Mg Tablet PO 12/18/24 16:19 Q4H PRN PRN PAIN, FEVER, HEADACHE Amlodipine Besylate 2.5 mg 11/19/24 10:00 11/19/24 11:28 Amlodipine Besylate 5 Mg Tablet PO 12/19/24 09:59 2.5 mg DAILY RAMON Administration Calcitriol 0.5 mcg 11/19/24 10:00 11/19/24 11:29 Calcitriol 0.25 Mcg Capsule PO 12/19/24 09:59 0.5 mcg DAILY RAMON Administration Calcium Carbonate/Glycine 750 mg 11/18/24 22:00 11/19/24 11:29 Calcium Carbonate 750 Mg 750 Mg Tab.Chew PO 12/18/24 21:59 750 mg BID RAMON Administration Cholecalciferol 50,000 unit 11/25/24 10:00 Cholecalciferol (Vitamin D3) 1000 Unit Tablet PO 12/25/24 09:59 Mcgill@1000 [facility] Cyanocobalamin 1,000 mcg 11/19/24 10:00 11/19/24 11:26 Cyanocobalamin 500 Mcg Tablet PO 12/19/24 09:59 1,000 mcg DAILY RAMON Administration Docusate Sodium 100 mg 11/18/24 16:20 Docusate Sodium 100 Mg Capsule PO 12/18/24 16:19 BIDPRN PRN CONSTIPATION Dronedarone 400 mg 11/18/24 22:00 11/19/24 11:25 Dronedarone Hydrochloride 400 Mg Tablet PO 12/18/24 21:59 400 mg BID RAMON Administration Famotidine 20 mg 11/18/24 22:00 11/19/24 11:29 Famotidine 20 Mg Tablet PO 12/18/24 21:59 20 mg BID RAMON Administration Ferrous Sulfate 325 mg 11/18/24 22:00 11/19/24 11:28 Ferrous Sulfate 325 Mg Tablet PO 12/18/24 21:59 325 mg BID RAMON Administration Folic Acid 1 mg 11/19/24 10:00 11/19/24 11:24 Folic Acid 1 Mg Tablet PO 12/19/24 09:59 1 mg DAILY RAMON Administration Heparin Sodium (Beef Lung) 5,000 unit 11/18/24 22:00 11/19/24 11:32 Heparin 5000 Units/0.5 Ml 5,000 Unit/0.5 Ml Syr SQ 12/18/24 21:59 5,000 unit BID RAMON Administration Ceftriaxone Sodium 1 gm in 100 mls @ 200 mls/hr 11/19/24 10:00 11/19/24 11:29 Rocephin 1 Gm / 100 Ml Nacl IV 12/19/24 09:59 200 mls/hr [id number] RAMON Administration Linezolid 300 mls @ 150 mls/hr 11/19/24 10:00 11/19/24 11:31 Zyvox 600 Mg Iv Premix IV 11/21/24 23:59 150 mls/hr Q12HT RAMON Administration Linezolid 150 mls @ 150 mls/hr 11/22/24 10:00 Zyvox 600 Mg Iv Premix IV 12/22/24 09:59 [id number] RAMON Insulin Glargine 22 unit 11/18/24 22:00 11/18/24 23:09 Insulin Glargine 1 Unit SQ 12/18/24 21:59 22 unit HS RAMON Administration Insulin Human Lispro 0 unit 11/18/24 16:20 11/19/24 08:24 Insulin Lispro 1 Unit SQ 12/18/24 16:19 9 unit UD PRN Administration HYPERGLYCEMIA Insulin Human Lispro 6 unit 11/19/24 08:00 11/19/24 08:23 Insulin Lispro 1 Unit SQ 12/19/24 07:59 6 unit TIDWM RAMON Administration Ipratropium Pierz 0.5 mg 11/18/24 16:39 Ipratropium Pierz 0.5 Mg/Neb IH 12/18/24 16:38 [id number] PRN SHORTNESS OF BREATH/WHEEZING Lactobacillus Acidophilus 1 tab 11/19/24 10:00 11/19/24 11:29 Lactobacillus Acidophilus 1 Tab Tablet PO 12/19/24 09:59 1 tab DAILY RAMON Administration Levothyroxine Sodium 100 mcg/ 175 mcg 11/19/24 10:00 11/19/24 11:27 Levothyroxine Sodium 75 mcg PO 12/19/24 09:59 175 mcg DAILY RAMON Administration Loratadine 10 mg 11/19/24 22:00 Loratadine 10 Mg Tablet PO 12/19/24 21:59 HS RAMON Magnesium Oxide 400 mg 11/18/24 22:00 11/19/24 11:25 Magnesium Oxide 400 Mg Tablet PO 12/18/24 21:59 400 mg BID RAMON Administration Melatonin 3 mg 11/18/24 22:00 11/18/24 22:13 Melatonin 3 Mg Tablet PO 12/18/24 21:59 3 mg HS RAMON Administration Miscellaneous Information 1 each 11/19/24 07:45 Medication Intervention 1 Each Each 12/19/24 07:44 .RN TO CHECK RAMON Miscellaneous Information 1 each 11/19/24 07:45 Medication Intervention 1 Each Each 12/19/24 07:44 .RN TO CHECK RAMON Montelukast Sodium 10 mg 11/19/24 10:00 11/19/24 11:26 Montelukast Sodium 10 Mg Tablet PO 12/19/24 09:59 10 mg DAILY RAMON Administration Potassium Chloride 10 meq 11/19/24 10:00 11/19/24 11:28 Potassium Chloride Tab 10 Meq Tab PO 12/19/24 09:59 10 meq DAILY RAMON Administration Pregabalin 50 mg 11/19/24 10:00 11/19/24 11:25 Pregabalin 50 Mg Capsule PO 12/19/24 09:59 50 mg DAILY RAMON Administration Tamsulosin HCl 0.4 mg 11/18/24 22:00 11/18/24 22:12 Tamsulosin Hcl 0.4 Mg Cap PO 12/18/24 21:59 0.4 mg HS RAMON Administration Discontinued Medications Generic Name Dose Route Start Last Admin Trade Name Freq PRN Reason Stop Dose Admin Acetaminophen 650 mg 11/18/24 12:29 11/18/24 12:30 Acetaminophen 325mg Suppository CO 11/18/24 12:30 650 mg STAT STA Administration Acetaminophen Confirm 11/18/24 12:26 Acetaminophen 325mg Suppository Administered 11/18/24 12:27 Dose 650 mg .ROUTE .STK-MED ONE Albuterol/Ipratropium Confirm 11/18/24 11:54 Ipratropium/Albuterol Sulfate 3 Ml Ampul.Neb Administered 11/18/24 11:55 Dose 3 ml IH .STK-MED ONE Albuterol/Ipratropium 3 ml 11/18/24 12:03 11/18/24 11:55 Ipratropium/Albuterol Sulfate 3 Ml Ampul.Neb IH 11/18/24 12:04 3 ml STAT ONE Administration Azithromycin Confirm 11/18/24 14:59 Azithromycin Inj Administered 11/18/24 15:00 Dose 500 mg IV .STK-MED ONE Buspirone HCl 10 mg 11/18/24 22:00 11/18/24 22:12 Buspirone Hcl 5 Mg Tablet PO 12/18/24 21:59 10 mg BID RAMON Administration Calcium Carbonate/Glycine Confirm 11/18/24 16:56 Calcium Carbonate 750 Mg 750 Mg Tab.Chew Administered 11/18/24 16:57 Dose 750 mg .ROUTE .STK-MED ONE Methylprednisolone Sodium 0 mg 11/18/24 12:03 11/18/24 12:10 Succinate 125 mg/ Sterile IV 11/18/24 12:04 125 mg Water 2 ml STAT ONE Administration Diphenhydramine HCl 25 mg 11/18/24 12:03 11/18/24 12:09 Diphenhydramine Hcl 50 Mg/Ml Vial IV 11/18/24 12:04 25 mg STAT ONE Administration Diphenhydramine HCl Confirm 11/18/24 12:04 Diphenhydramine Hcl 50 Mg/Ml Vial Administered 11/18/24 12:05 Dose 50 mg .ROUTE .STK-MED ONE Epinephrine 0.5 ml 11/18/24 12:04 11/18/24 12:05 Racepinephrine Inh Bianka 0.5 Ml Neb IH 11/18/24 12:05 0.5 ml STAT ONE Administration Epinephrine Confirm 11/18/24 12:03 Racepinephrine Inh Bianka 0.5 Ml Neb Administered 11/18/24 12:04 Dose 0.5 ml IH .STK-MED ONE Famotidine 20 mg 11/18/24 12:03 11/18/24 12:10 Famotidine 20 Mg/1 Vial IV 11/18/24 12:04 20 mg STAT ONE Administration Famotidine Confirm 11/18/24 12:07 Famotidine 20 Mg/1 Vial Administered 11/18/24 12:08 Dose 20 mg IV .STK-MED ONE Furosemide 20 mg 11/19/24 10:00 Furosemide 20 Mg/Vial IV 12/19/24 09:59 DAILY RAMON Azithromycin 500 mg/ Sodium 250 mls @ 250 mls/hr 11/18/24 13:38 11/18/24 15:00 Chloride IV 11/18/24 14:37 250 mls/hr STAT STA 250 mls/hr Administration Ceftriaxone Sodium 2 gm in 100 mls @ 200 mls/hr 11/18/24 13:38 11/18/24 14:55 Rocephin 2 Gm/100 Ml Nacl IV 11/18/24 14:07 Infused STAT ONE Infusion Sodium Chloride 1,000 mls @ 100 mls/hr 11/18/24 13:45 11/18/24 14:01 Sodium Chloride 0.9% 1000 Ml IV 12/18/24 13:44 100 mls/hr .Q10H RAMON Administration Ceftriaxone Sodium Confirm 11/18/24 14:00 Rocephin 2 Gm/100 Ml Nacl Administered 11/18/24 14:01 Dose 2 gm in 100 mls @ ud IV .STK-MED ONE Sodium Chloride Confirm 11/18/24 14:59 Sodium Chloride 0.9% 250 Ml Administered 11/18/24 15:00 Dose 250 mls @ ud IV .STK-MED ONE Sodium Chloride Confirm 11/18/24 14:00 Sodium Chloride 0.9% 1000 Ml Administered 11/18/24 14:01 Dose 1,000 mls @ ud .ROUTE .STK-MED ONE Linezolid 300 mls @ 150 mls/hr 11/18/24 17:00 11/18/24 16:59 Zyvox 600 Mg Iv Premix IV 11/18/24 18:59 150 mls/hr ONCE ONE Administration Levalbuterol HCl 1.25 mg 11/18/24 16:20 Levalbuterol Hcl 1.25 Mg/0.5 Ml Neb IH 12/18/24 16:19 Q4H PRN PRN SHORTNESS OF BREATH Lidocaine HCl Confirm 11/19/24 11:00 Lidocaine - Mpf 2% 5 Ml Vial Administered 11/19/24 11:01 Dose 5 ml .ROUTE .STK-MED ONE Methylprednisolone Sodium Succinate Confirm 11/18/24 12:04 Methylprednis Sod Succ 125 Mg/2 Ml Vial Administered 11/18/24 12:05 Dose 125 mg .ROUTE .STK-MED ONE Metoprolol Tartrate 50 mg 11/18/24 22:00 Metoprolol Tartrate 50 Mg Tablet PO 12/18/24 21:59 BID RAMON Non-Formulary Medication 1 each 11/18/24 16:19 11/18/24 16:37 Pharmacy Dosing Request MC 11/18/24 16:20 1 each STAT ONE Administration Non-Formulary Medication 250 mg 11/18/24 22:00 11/18/24 22:20 Cranberry Fruit Extract [Cranberry] PO 12/18/24 21:59 Not Given BID RAMON Non-Formulary Medication 22 unit 11/18/24 22:00 Insulin Glargine,Hum.Rec.Anlog [Toujesuso Solostar] SQ 12/18/24 21:59 HS RAMON Non-Formulary Medication 400 mg 11/18/24 17:00 11/18/24 17:10 Calcium Carbonate [Tums Ultra] PO 12/18/24 16:59 Not Given QID RAMON Non-Formulary Medication 10 mg 11/18/24 22:00 11/18/24 22:20 Cetirizine Hcl [Zyrtec] PO 12/18/24 21:59 Not Given HS RAMON Non-Formulary Medication 100 mg 11/18/24 22:00 Metoprolol Tartrate [Lopressor] PO 12/18/24 21:59 BID RAMON Sodium Chloride Confirm 11/18/24 12:03 Sodium Cl For Inhalation 3 Ml Ud Nebule Administered 11/18/24 12:04 Dose 3 ml IH .STK-MED ONE Sterile Water Confirm 11/18/24 12:03 Water For Injection,Sterile 10 Ml Vial Administered 11/18/24 12:04 Dose 10 ml IJ .STK-MED ONE Multi-Disciplinary Progress Notes: Multi-Disciplinary Progress Notes 11/19/24 07:51 Pharmacy Note by Jevon Baker ZYVOX 600 MG IVPB Q12H X 3 DAYS THEN DECREASE TO 300 MG Q12H FOR RENAL FUNCTION CR CL = 15 ML/MIN CrCl <40 mL/minute: No dosage adjustment necessary. Based on Cristiano Gómez simulations, in clinically stable patients with CrCl <30 mL/minute and an anticipated treatment course >10 days, some experts suggest reducing dose to 300 mg twice daily after 72 hours with therapeutic drug monitoring to reduce the risk of thrombocytopenia (Ref). CONTINUE ROCEPHIN 1 GM Q24 BERNARD Initialized on 11/19/24 07:51 - END OF NOTE Assessment/Plan (1) Sepsis Current Visit: Yes Status: Acute (2) Acute respiratory failure with hypoxia Current Visit: Yes Status: Acute Code(s): J96.01 - ACUTE RESPIRATORY FAILURE WITH HYPOXIA (3) CHF (congestive heart failure) Current Visit: Yes Status: Acute Code(s): I50.9 - HEART FAILURE, UNSPECIFIED (4) COPD exacerbation Current Visit: Yes Status: Acute Code(s): J44.1 - CHRONIC OBSTRUCTIVE PULMONARY DISEASE W (ACUTE) EXACERBATION (5) Afib Current Visit: Yes Status: Acute Code(s): I48.91 - UNSPECIFIED ATRIAL FIBRILLATION (6) Acute UTI (urinary tract infection) Current Visit: Yes Status: Acute Code(s): N39.0 - URINARY TRACT INFECTION, SITE NOT SPECIFIED (7) Pneumonia Current Visit: Yes Status: Acute Code(s): J18.9 - PNEUMONIA, UNSPECIFIED ORGANISM (8) Hypothyroid Current Visit: Yes Status: Acute Code(s): E03.9 - HYPOTHYROIDISM, UNSPECIFIED (9) Acute renal failure superimposed on chronic kidney disease Current Visit: No Status: Acute Code(s): N17.9 - ACUTE KIDNEY FAILURE, UNSPECIFIED; N18.9 - CHRONIC KIDNEY DISEASE, UNSPECIFIED (10) HTN (hypertension) Current Visit: No Status: Acute Code(s): I10 - ESSENTIAL (PRIMARY) HYPERTENSION (11) Hypocalcemia due to chronic kidney disease Current Visit: Yes Status: Acute Code(s): E83.51 - HYPOCALCEMIA; N18.9 - CHRONIC KIDNEY DISEASE, UNSPECIFIED (12) Type 2 diabetes mellitus Current Visit: Yes Status: Acute Assessment & Plan: (1) Sepsis Current Visit: Yes Status: Acute Assessment & Plan: -Meet criteria with temp 103.6, tachypnea, tachycardia - known sources of infection UTI/pneuomina -CXR showed patchy opacities and left lower lobe infiltrate consistent with pneumonia, along with cardiomegaly and vascular congestion suggesting volume overload -WBC at 17.4- trend -Procal at 3.160 -Ceftriaxone/azith started in ED- reviewed past ucult with VRE - will start on linezolid/cefepime -Blood/Urine/sputum cultures pending - will follow -Supplemental oxygen with goal spo2 > 92% -currently at 2L 94% -ABG with significant lethargy -PPI/VTE heparin -COVID/FLU/RSV negative -RT eval and follow -IVF contraindicated with fluid overload noted on CXR 11/19 - No temp overnight - + BC x2 gram negative rods - WBC 16.9- improved - UC negative - Room air 94% - CBC, CMP reviewed (2) Acute respiratory failure with hypoxia Current Visit: Yes Status: Acute Assessment & Plan: -see sepsis 11/19 - Room air 94% - Likely 2:2 allergic reaction, CHF Code(s): J96.01 - ACUTE RESPIRATORY FAILURE WITH HYPOXIA (3) CHF (congestive heart failure) Current Visit: Yes Status: Acute Assessment & Plan: -CXR as stated above -Most recent echo 11/16/23 IMPRESSION: EF 72% 1. NORMAL CONTRACTILITY OF THE LEFT VENTRICLE. 2. MILD CONCENTRIC LEFT VENTRICULAR HYPERTROPHY. 3. POSSIBLE IMPAIRED LEFT VENTRICULAR RELAXATION. 4. MILD TRICUSPID REGURGITATION. 5. NORMAL RIGHT VENTRICULAR SYSTOLIC PRESSURE. 6. MITRAL VALVULAR CALCIFICATION. -continue home meds -consider echo Code(s): I50.9 - HEART FAILURE, UNSPECIFIED (4) COPD exacerbation Current Visit: Yes Status: Acute Assessment & Plan: -see sepsis - Today RA 94% Code(s): J44.1 - CHRONIC OBSTRUCTIVE PULMONARY DISEASE W (ACUTE) EXACERBATION (5) Afib Current Visit: Yes Status: Acute Assessment & Plan: -EKG showed sinus tachycardia with no acute ST elevations and negative initial troponin -Reviewed [facility] documentation with nurse- no anticoagulation noted- will call SNF to verify Code(s): I48.91 - UNSPECIFIED ATRIAL FIBRILLATION (6) Acute UTI (urinary tract infection) Current Visit: Yes Status: Acute Assessment & Plan: -UC negative Code(s): N39.0 - URINARY TRACT INFECTION, SITE NOT SPECIFIED (7) Pneumonia Current Visit: Yes Status: Acute Assessment & Plan: -see sepsis Code(s): J18.9 - PNEUMONIA, UNSPECIFIED ORGANISM (8) Hypothyroid Current Visit: Yes Status: Acute Assessment & Plan: -continue levothyroxine Code(s): E03.9 - HYPOTHYROIDISM, UNSPECIFIED (9) Acute kidney injury superimposed on CKD Current Visit: No Status: Acute Assessment & Plan: -Creat at 2.65, baseline around 2.4-2.5 -Patient received IVF in ED -CXR with fluid overload, will hold further IVF -monitor renal/lytes -avoid nephrotoxic agents - renal dose medications 11/19 - Creat 2.61- improving Code(s): N17.9 - ACUTE KIDNEY FAILURE, UNSPECIFIED; N18.9 - CHRONIC KIDNEY DISEASE, UNSPECIFIED (10) HTN (hypertension) Current Visit: Yes Status: Acute Assessment & Plan: -continue home meds- stable Code(s): I10 - ESSENTIAL (PRIMARY) HYPERTENSION (11) Hypocalcemia due to chronic kidney disease Current Visit: Yes Status: Acute Assessment & Plan: -continue calcium carbonate home dosing Code(s): E83.51 - HYPOCALCEMIA; N18.9 - CHRONIC KIDNEY DISEASE, UNSPECIFIED (12) Type 2 diabetes mellitus Current Visit: Yes Status: Acute Assessment & Plan: -ADA diet -SSI/glargine/meal time -A1c 7.7 on - controlled (13) Acute exacerbation of CHF (congestive heart failure) Current Visit: No Status: Acute Assessment & Plan: - BNP 3290 - Lasix 40 BID - As seen on chest CT Code(s): I50.9 - HEART FAILURE, UNSPECIFIED (14) Allergic reaction Current Visit: Yes Status: Acute Assessment & Plan: - Pt feels she had an allergic reaction to Levaquin yesterday. She was started on this in the ECF and developed tongue edema and SOB - Benadryl gave in the ER. - Sxs resolved today VTE: Heparin PPI: Protonix Dispo: 2-3 days Next of KIN: Letty Dumont [phone] Code(s): T78.40XA - ALLERGY, UNSPECIFIED, INITIAL ENCOUNTER
[2024-11-19] MEDS: Lasix 40 MG/4 ML IV SCH (12:18)
[2024-11-19] MEDS: NON-FORMULARY ITEM (Insulin Glargine,Hum.Rec.Anlog [Toujeo Solostar] 300 UNIT/ML Insuln.Pe SQ SCH (16:49)
[2024-11-19] MEDS: CLARITIN 10 MG PO SCH (22:03)
[2024-11-20 08:28] VITALS: BP 143/66; PULSE 65; RESP 17; TEMP 98; O2SAT 97
[2024-11-20] MEDS: Invanz *** 1 G in Sodium Chloride 100ML MINI-BAG PLUS 100 ML IV SCH (09:25)
--- NOTE | 2024-11-20 10:35 | PCM.NOTE ---
Date and Time: 11/20/24 1034 Objective Data Vital Signs: Vital Signs - 24 hr Temp Pulse Resp BP Pulse Ox 11/20/24 08:00 98 F 65 17 143/66 97 11/20/24 07:01 74 16 93 L 11/20/24 04:00 97.7 F 71 20 139/65 92 L 11/20/24 00:00 98.3 F 80 16 131/61 99 11/19/24 20:04 75 16 94 L 11/19/24 20:00 98.3 F 76 20 144/67 95 11/19/24 16:00 98.0 F 76 16 131/68 94 L 11/19/24 11:38 97.9 F 71 16 134/61 95 Pain Assessment - Last Documented Pain Intensity 0 Intake and Output: Intake & Output 11/17/24 11/18/24 11/19/24 11/20/24 11:59 11:59 11:59 11:59 Intake Total 1519 1420 Output Total 2910 1100 Balance -1391 320 Weight 80.3 kg 78.9 kg Lab Results: Lab Results-Last 24 Hours 11/19/24 11/19/24 11/19/24 Range/Units 11:34 16:43 21:39 POC Glucometer 311 H 300 H 200 H (74 to 106) mg/dL 11/20/24 Range/Units 08:24 POC Glucometer 129 H (74 to 106) mg/dL Radiology Exams: Radiology Procedures Category Date Time Status CHEST 1 VIEW (PORTABLE) Stat Exams 11/18/24 12:03 Completed CHEST WITHOUT CONTRAST [CT] Stat Exams 11/18/24 17:07 Completed HEAD WITHOUT CONTRAST [CT] Stat Exams 11/18/24 12:31 Completed NECK WO CONTRAST [CT] Stat Exams 11/18/24 12:32 Completed Medications: Medications Generic Name Dose Route Start Last Admin Trade Name Freq PRN Reason Stop Dose Admin Acetaminophen 650 mg 11/18/24 16:20 Acetaminophen 325 Mg Tablet PO 12/18/24 16:19 Q4H PRN PRN PAIN, FEVER, HEADACHE Amlodipine Besylate 2.5 mg 11/19/24 10:00 11/20/24 09:33 Amlodipine Besylate 5 Mg Tablet PO 12/19/24 09:59 Not Given DAILY RAMON Calcitriol 0.5 mcg 11/19/24 10:00 11/20/24 09:44 Calcitriol 0.25 Mcg Capsule PO 12/19/24 09:59 0.5 mcg DAILY RAMON Administration Calcium Carbonate/Glycine 750 mg 11/18/24 22:00 11/20/24 09:43 Calcium Carbonate 750 Mg 750 Mg Tab.Chew PO 12/18/24 21:59 750 mg BID RAMON Administration Cholecalciferol 50,000 unit 11/25/24 10:00 Cholecalciferol (Vitamin D3) 1000 Unit Tablet PO 12/25/24 09:59 Mcgill@1000 RAMON Cyanocobalamin 1,000 mcg 11/19/24 10:00 11/20/24 09:32 Cyanocobalamin 500 Mcg Tablet PO 12/19/24 09:59 1,000 mcg DAILY RAMON Administration Docusate Sodium 100 mg 11/18/24 16:20 Docusate Sodium 100 Mg Capsule PO 12/18/24 16:19 BIDPRN PRN CONSTIPATION Dronedarone 400 mg 11/18/24 22:00 11/20/24 09:31 Dronedarone Hydrochloride 400 Mg Tablet PO 12/18/24 21:59 400 mg BID RAMON Administration Famotidine 20 mg 11/18/24 22:00 11/20/24 09:32 Famotidine 20 Mg Tablet PO 12/18/24 21:59 20 mg BID RAMON Administration Ferrous Sulfate 325 mg 11/18/24 22:00 11/20/24 09:32 Ferrous Sulfate 325 Mg Tablet PO 12/18/24 21:59 325 mg BID RAMON Administration Folic Acid 1 mg 11/19/24 10:00 11/20/24 09:31 Folic Acid 1 Mg Tablet PO 12/19/24 09:59 1 mg DAILY RAMON Administration Furosemide 40 mg 11/19/24 11:48 11/20/24 09:35 Furosemide 40 Mg/4 Ml Vial IV 12/19/24 11:47 40 mg BID DIURETIC RAMON Administration Heparin Sodium (Beef Lung) 5,000 unit 11/18/24 22:00 11/20/24 09:34 Heparin 5000 Units/0.5 Ml 5,000 Unit/0.5 Ml Syr SQ 12/18/24 21:59 5,000 unit BID RAMON Administration Ertapenem 1 g/ Sodium Chloride 100 mls @ 200 mls/hr 11/20/24 10:00 11/20/24 09:25 IV 12/20/24 09:59 200 mls/hr Q24H10 RAMON Administration Insulin Glargine 22 unit 11/18/24 22:00 11/19/24 21:56 Insulin Glargine 1 Unit SQ 12/18/24 21:59 22 unit HS RAMON Administration Insulin Human Lispro 0 unit 11/18/24 16:20 11/19/24 17:00 Insulin Lispro 1 Unit SQ 12/18/24 16:19 7 unit UD PRN Administration HYPERGLYCEMIA Insulin Human Lispro 6 unit 11/19/24 08:00 11/20/24 08:26 Insulin Lispro 1 Unit SQ 12/19/24 07:59 6 unit TIDWM RAMON Administration Ipratropium [place] 0.5 mg 11/18/24 16:39 Ipratropium [place] 0.5 Mg/Neb IH 12/18/24 16:38 Q4HPRN PRN SHORTNESS OF BREATH/WHEEZING Lactobacillus Acidophilus 1 tab 11/19/24 10:00 11/20/24 09:31 Lactobacillus Acidophilus 1 Tab Tablet PO 12/19/24 09:59 1 tab DAILY RAMON Administration Levothyroxine Sodium 100 mcg/ 175 mcg 11/19/24 10:00 11/20/24 09:29 Levothyroxine Sodium 75 mcg PO 12/19/24 09:59 175 mcg DAILY RAMON Administration Loratadine 10 mg 11/19/24 22:00 11/19/24 22:03 Loratadine 10 Mg Tablet PO 12/19/24 21:59 10 mg HS RAMON Administration Magnesium Oxide 400 mg 11/18/24 22:00 11/20/24 09:32 Magnesium Oxide 400 Mg Tablet PO 12/18/24 21:59 400 mg BID RAMON Administration Melatonin 3 mg 11/18/24 22:00 11/19/24 22:03 Melatonin 3 Mg Tablet PO 12/18/24 21:59 3 mg HS RAMON Administration Miscellaneous Information 1 each 11/19/24 07:45 Medication Intervention 1 Each Each 12/19/24 07:44 .RN TO CHECK RAMON Miscellaneous Information 1 each 11/19/24 07:45 Medication Intervention 1 Each Each 12/19/24 07:44 .RN TO CHECK RAMON Montelukast Sodium 10 mg 11/19/24 10:00 11/20/24 09:31 Montelukast Sodium 10 Mg Tablet PO 12/19/24 09:59 10 mg DAILY RAMON Administration Potassium Chloride 10 meq 11/19/24 10:00 11/20/24 09:32 Potassium Chloride Tab 10 Meq Tab PO 12/19/24 09:59 10 meq DAILY RAMON Administration Pregabalin 50 mg 11/19/24 10:00 11/20/24 09:31 Pregabalin 50 Mg Capsule PO 12/19/24 09:59 50 mg DAILY RAMON Administration Tamsulosin HCl 0.4 mg 11/18/24 22:00 11/19/24 22:03 Tamsulosin Hcl 0.4 Mg Cap PO 12/18/24 21:59 0.4 mg HS RAMON Administration Discontinued Medications Generic Name Dose Route Start Last Admin Trade Name Freq PRN Reason Stop Dose Admin Acetaminophen 650 mg 11/18/24 12:29 11/18/24 12:30 Acetaminophen 325mg Suppository TX 11/18/24 12:30 650 mg STAT STA Administration Acetaminophen Confirm 11/18/24 12:26 Acetaminophen 325mg Suppository Administered 11/18/24 12:27 Dose 650 mg .ROUTE .STK-MED ONE Albuterol/Ipratropium Confirm 11/18/24 11:54 Ipratropium/Albuterol Sulfate 3 Ml Ampul.Neb Administered 11/18/24 11:55 Dose 3 ml IH .STK-MED ONE Albuterol/Ipratropium 3 ml 11/18/24 12:03 11/18/24 11:55 Ipratropium/Albuterol Sulfate 3 Ml Ampul.Neb IH 11/18/24 12:04 3 ml STAT ONE Administration Azithromycin Confirm 11/18/24 14:59 Azithromycin Inj Administered 11/18/24 15:00 Dose 500 mg IV .STK-MED ONE Buspirone HCl 10 mg 11/18/24 22:00 11/18/24 22:12 Buspirone Hcl 5 Mg Tablet PO 12/18/24 21:59 10 mg BID RAMON Administration Calcium Carbonate/Glycine Confirm 11/18/24 16:56 Calcium Carbonate 750 Mg 750 Mg Tab.Chew Administered 11/18/24 16:57 Dose 750 mg .ROUTE .STK-MED ONE Methylprednisolone Sodium 0 mg 11/18/24 12:03 11/18/24 12:10 Succinate 125 mg/ Sterile IV 11/18/24 12:04 125 mg Water 2 ml STAT ONE Administration Diphenhydramine HCl 25 mg 11/18/24 12:03 11/18/24 12:09 Diphenhydramine Hcl 50 Mg/Ml Vial IV 11/18/24 12:04 25 mg STAT ONE Administration Diphenhydramine HCl Confirm 11/18/24 12:04 Diphenhydramine Hcl 50 Mg/Ml Vial Administered 11/18/24 12:05 Dose 50 mg .ROUTE .STK-MED ONE Epinephrine 0.5 ml 11/18/24 12:04 11/18/24 12:05 Racepinephrine Inh Bianka 0.5 Ml Neb IH 11/18/24 12:05 0.5 ml STAT ONE Administration Epinephrine Confirm 11/18/24 12:03 Racepinephrine Inh Bianka 0.5 Ml Neb Administered 11/18/24 12:04 Dose 0.5 ml IH .STK-MED ONE Famotidine 20 mg 11/18/24 12:03 11/18/24 12:10 Famotidine 20 Mg/1 Vial IV 11/18/24 12:04 20 mg STAT ONE Administration Famotidine Confirm 11/18/24 12:07 Famotidine 20 Mg/1 Vial Administered 11/18/24 12:08 Dose 20 mg IV .STK-MED ONE Furosemide 20 mg 11/19/24 10:00 Furosemide 20 Mg/Vial IV 12/19/24 09:59 DAILY RAMON Azithromycin 500 mg/ Sodium 250 mls @ 250 mls/hr 11/18/24 13:38 11/18/24 15:00 Chloride IV 11/18/24 14:37 250 mls/hr STAT STA 250 mls/hr Administration Ceftriaxone Sodium 2 gm in 100 mls @ 200 mls/hr 11/18/24 13:38 11/18/24 14:55 Rocephin 2 Gm/100 Ml Nacl IV 11/18/24 14:07 Infused STAT ONE Infusion Sodium Chloride 1,000 mls @ 100 mls/hr 11/18/24 13:45 11/18/24 14:01 Sodium Chloride 0.9% 1000 Ml IV 12/18/24 13:44 100 mls/hr .Q10H RAMON Administration Ceftriaxone Sodium Confirm 11/18/24 14:00 Rocephin 2 Gm/100 Ml Nacl Administered 11/18/24 14:01 Dose 2 gm in 100 mls @ ud IV .STK-MED ONE Sodium Chloride Confirm 11/18/24 14:59 Sodium Chloride 0.9% 250 Ml Administered 11/18/24 15:00 Dose 250 mls @ ud IV .STK-MED ONE Sodium Chloride Confirm 11/18/24 14:00 Sodium Chloride 0.9% 1000 Ml Administered 11/18/24 14:01 Dose 1,000 mls @ ud .ROUTE .STK-MED ONE Ceftriaxone Sodium 1 gm in 100 mls @ 200 mls/hr 11/19/24 10:00 11/19/24 11:29 Rocephin 1 Gm / 100 Ml Nacl IV 12/19/24 09:59 200 mls/hr Q24H10 RAMON Administration Linezolid 300 mls @ 150 mls/hr 11/18/24 17:00 11/18/24 16:59 Zyvox 600 Mg Iv Premix IV 11/18/24 18:59 150 mls/hr ONCE ONE Administration Linezolid 300 mls @ 150 mls/hr 11/19/24 10:00 11/19/24 21:56 Zyvox 600 Mg Iv Premix IV 11/21/24 23:59 150 mls/hr Q12HT RAMON Administration Linezolid 150 mls @ 150 mls/hr 11/22/24 10:00 Zyvox 600 Mg Iv Premix IV 12/22/24 09:59 Q12HT RAMON Levalbuterol HCl 1.25 mg 11/18/24 16:20 Levalbuterol Hcl 1.25 Mg/0.5 Ml Neb IH 12/18/24 16:19 Q4H PRN PRN SHORTNESS OF BREATH Lidocaine HCl Confirm 11/19/24 11:00 Lidocaine - Mpf 2% 5 Ml Vial Administered 11/19/24 11:01 Dose 5 ml .ROUTE .STK-MED ONE Methylprednisolone Sodium Succinate Confirm 11/18/24 12:04 Methylprednis Sod Succ 125 Mg/2 Ml Vial Administered 11/18/24 12:05 Dose 125 mg .ROUTE .STK-MED ONE Metoprolol Tartrate 50 mg 11/18/24 22:00 Metoprolol Tartrate 50 Mg Tablet PO 12/18/24 21:59 BID RAMON Non-Formulary Medication 1 each 11/18/24 16:19 11/18/24 16:37 Pharmacy Dosing Request 11/18/24 16:20 1 each STAT ONE Administration Non-Formulary Medication 250 mg 11/18/24 22:00 11/18/24 22:20 Cranberry Fruit Extract [Cranberry] PO 12/18/24 21:59 Not Given BID RAMON Non-Formulary Medication 22 unit 11/18/24 22:00 11/19/24 16:49 Insulin Glargine,Hum.Rec.Anlog [Toujeo Solostar] SQ 12/18/24 21:59 Not Given HS RAMON Non-Formulary Medication 400 mg 11/18/24 17:00 11/18/24 17:10 Calcium Carbonate [Tums Ultra] PO 12/18/24 16:59 Not Given QID RAMON Non-Formulary Medication 10 mg 11/18/24 22:00 11/18/24 22:20 Cetirizine Hcl [Zyrtec] PO 12/18/24 21:59 Not Given HS [facility] Non-Formulary Medication 100 mg 11/18/24 22:00 Metoprolol Tartrate [Lopressor] PO 12/18/24 21:59 BID RAMON Sodium Chloride Confirm 11/18/24 12:03 Sodium Cl For Inhalation 3 Ml Ud Nebule Administered 11/18/24 12:04 Dose 3 ml IH .STK-MED ONE Sterile Water Confirm 11/18/24 12:03 Water For Injection,Sterile 10 Ml Vial Administered 11/18/24 12:04 Dose 10 ml IJ .STK-MED ONE Multi-Disciplinary Progress Notes: Multi-Disciplinary Progress Notes 11/19/24 13:27 Case Management Note by Angelita Ball/Kaylyn PHAM AT [facility]- PATIENT DOES NOT NEED INSURANCE APPROVAL TO RETURN TO FACILITY. SHE CAN RETURN WHEN MEDICALLY READY Initialized on 11/19/24 13:27 - END OF NOTE Assessment/Plan (1) Sepsis Current Visit: Yes Status: Acute (2) Acute respiratory failure with hypoxia Current Visit: Yes Status: Acute Code(s): J96.01 - ACUTE RESPIRATORY FAILURE WITH HYPOXIA (3) CHF (congestive heart failure) Current Visit: Yes Status: Acute Code(s): I50.9 - HEART FAILURE, UNSPECIFIED (4) COPD exacerbation Current Visit: Yes Status: Acute Code(s): J44.1 - CHRONIC OBSTRUCTIVE PULMONARY DISEASE W (ACUTE) EXACERBATION (5) Afib Current Visit: Yes Status: Acute Code(s): I48.91 - UNSPECIFIED ATRIAL FIBRILLATION (6) Acute UTI (urinary tract infection) Current Visit: Yes Status: Acute Code(s): N39.0 - URINARY TRACT INFECTION, SITE NOT SPECIFIED (7) Pneumonia Current Visit: Yes Status: Acute Code(s): J18.9 - PNEUMONIA, UNSPECIFIED ORGANISM (8) Hypothyroid Current Visit: Yes Status: Acute Code(s): E03.9 - HYPOTHYROIDISM, UNSPECIFIED (9) Acute renal failure superimposed on chronic kidney disease Current Visit: No Status: Acute Code(s): N17.9 - ACUTE KIDNEY FAILURE, UNSPECIFIED; N18.9 - CHRONIC KIDNEY DISEASE, UNSPECIFIED (10) HTN (hypertension) Current Visit: No Status: Acute Code(s): I10 - ESSENTIAL (PRIMARY) HYPERTENSION (11) Hypocalcemia due to chronic kidney disease Current Visit: Yes Status: Acute Code(s): E83.51 - HYPOCALCEMIA; N18.9 - CHRONIC KIDNEY DISEASE, UNSPECIFIED (12) Type 2 diabetes mellitus Current Visit: Yes Status: Acute (13) Acute exacerbation of CHF (congestive heart failure) Current Visit: No Status: Acute Code(s): I50.9 - HEART FAILURE, UNSPECIFIED (14) Allergic reaction Current Visit: Yes Status: Acute Code(s): T78.40XA - ALLERGY, UNSPECIFIED, INITIAL ENCOUNTER
--- NOTE | 2024-11-20 11:13 | PCM.DS ---
Discharge Summary Date of Admission: 11/18/24 15:36 Date of Discharge: 11/20/24 Admitting Physician: YONAS ZABALA MD Primary Care Provider: ARIEL,JOE Allergies Allergies albuterol Allergy (Intermediate, Verified 11/18/24 15:57) Swelling of Tongue and Lips propranolol [From Inderal LA] Allergy (Intermediate, Verified 11/18/24 15:57) red face and ears levofloxacin [From Levaquin] Allergy (Unknown, Verified 11/18/24 15:57) clonazepam [From Klonopin] Allergy (Verified 11/18/24 15:57) Tightness of Throat tongue swollen metoclopramide [From Reglan] Allergy (Verified 11/18/24 15:57) propranolol HCl [From Inderal LA] Allergy (Verified 11/18/24 15:57) Swelling of Tongue and Lips red face and ears Zokxcku-GOM-EoE Reductase Inhibitor Allergy (Verified 11/18/24 15:57) Wheezing Sulfa (Sulfonamide Antibiotics) Allergy (Verified 11/18/24 15:57) Swelling of Tongue and Lips throat swell,ears red terfenadine Allergy (Verified 11/18/24 15:57) venom-honey bee [bee venom (honey bee)] Allergy (Verified 11/18/24 15:57) Hives large hives wheat Allergy (Verified 11/18/24 15:57) zanamivir [From Relenza Diskhaler] Allergy (Verified 11/18/24 15:57) Swelling of Tongue and Lips throat tightness cilostazol [From Pletal] Adverse Reaction (Severe, Verified 11/18/24 15:57) Swelling of Tongue and Lips ticagrelor [From Brilinta] Adverse Reaction (Severe, Verified 11/18/24 15:57) Swelling of Tongue and Lips Hospital Summary - Hospital Course Hospital Course: 11/19/24 is a 79 year old female resident of [facility] with pmhx of CAD, PE/DVT, anxiety, celiac disease, GERD, HTN, hypothyroid, CKD, CHF, COPD, PVD, and atrial fibrillation, ESBL, CVA, HLD, anemia, depression, breast cancer, and DM II. She presented to ED 11/18/24 with complaints of altered mental status, difficulty breathing and fever. Upon arrival patient febrile to 103.6F, tachycardic, tachypneic, and requiring 4L oxygen despite being normally on room air. On ED exam she had audible wheezing and stridor, along with mild tongue swelling. She was treated with DuoNebs, racemic epinephrine, Solu-Medrol, Benadryl, and Pepcid with resolution of stridor and airway symptoms. On admission she was on 2L O2 with saturations at 94%. Today she is RA 94% Chest X-ray showed patchy opacities and left lower lobe infiltrate consistent with pneumonia, along with cardiomegaly and vascular congestion suggesting volume overload. Head CT showed no acute intracranial process, but chronic infarct changes. CT neck revealed posterior tracheal indentation and dilated esophagus, suggestive of possible structural abnormality or aspiration risk, for which further evaluation with CT chest or endoscopy is recommended. EKG showed sinus tachycardia with no acute ischemia, and initial troponin was negative. Lab findings remarkable for leukocytosis (WBC 17.4), elevated procalcitonin (3.16), and UA suggestive of a UTI (positive nitrites and large leukocyte esterase). Creatinine was mildly elevated at 2.65 (baseline 2.3), likely reflecting [id number] kidney injury. She was admitted for sepsis secondary to pneumonia and UTI, complicated by acute hypoxic respiratory failure, and possible volume overload. Today she is awake and alert and feeling much better. She thinks she had an allergic reaction to Levaquin prescribed to her at the ECF for a UTI. UC negative. She was able to eat her breakfast this AM without any concerns. She was given benadryl yesterday for mouth and tongue edema and today that has resolved she explained. BC x2 gram negative rods and sensitivity pending. Continue Zyvox and ceftriaxone for UTI. Today WBC 16.4, Creat 1.61- improving. Continue Lasix 40 BID for CHF, BL pleural effusions. Pt denies CP, SOB, abd. pain, N/V/D. 11/20/24 Pt resting in bed. She is feeling much better. UC + for E-coli. Antibiotic changed to Invanz per sensitivity. Will Follow BC x2 OP. Pt had a midline placed yesterday. She denies any further concerns a this time. Per ECF pt was never started on coumadin from last d/c at [facility] for LE DVT, and hx of a-fib. Pt not on any anticoagulation on admission and per ECF. Pt has a hx of failed treatment on Eliquis. Will restart Coumadin at 4mg daily and labs will need to be rechecked every 2-3 days. Discussed plan of care in detail with our pharmacist. - Vitals & Intake/Output Vital Signs: Vital Signs Temperature 98 F 11/20/24 08:00 Pulse Rate 65 11/20/24 08:00 Respiratory Rate 17 11/20/24 08:00 Blood Pressure 143/66 11/20/24 08:00 O2 Sat by Pulse Oximetry 97 11/20/24 08:00 Intake & Output: Intake & Output 11/17/24 11/18/24 11/19/24 11/20/24 11:59 11:59 11:59 11:59 Intake Total 1519 1420 Output Total 2910 1100 Balance -1391 320 Weight 80.3 kg 78.9 kg - Lab Result Diagrams: 11/20/24 11:58 11/20/24 11:58 Lab Results-Last 24 Hrs: Lab Results-Last 24 Hours 11/19/24 11/19/24 11/19/24 Range/Units 11:34 16:43 21:39 POC Glucometer 311 H 300 H 200 H (74 to 106) mg/dL 11/20/24 Range/Units 08:24 POC Glucometer 129 H (74 to 106) mg/dL Micro Results-Entire Visit: Microbiology 11/18/24 13:44 Blood Culture Gram Stain - Final Blood Blood Culture - Preliminary GRAM NEGATIVE ID AND SENSITIVITY PENDING 11/18/24 13:48 Blood Culture Gram Stain - Final Blood Blood Culture - Preliminary GRAM NEGATIVE ID AND SENSITIVITY PENDING 11/18/24 12:33 Urine Culture - Final Catherized Escherichia Coli Accuchecks Date 11/20/24 Date 11/19/24 Date 11/19/24 Date 11/19/24 Time 08:27 Time 21:57 Time 16:46 Time 11:38 - Radiology Exams Ordered Rad Exams-Entire Visit: Radiology Procedures Category Date Time Status CHEST 1 VIEW (PORTABLE) Stat Exams 11/18/24 12:03 Completed CHEST WITHOUT CONTRAST [CT] Stat Exams 11/18/24 17:07 Completed HEAD WITHOUT CONTRAST [CT] Stat Exams 11/18/24 12:31 Completed NECK WO CONTRAST [CT] Stat Exams 11/18/24 12:32 Completed - Procedures and Test Procedures and Tests throughout Hospitalization: Therapy Orders & Screens 11/18/24 12:13 Respiratory Therapy Assessment DAILY Comment: 11/18/24 15:52 Oxygen NASAL CANNULA 2 lpm Comment: Diagnosis: sepsis/pneumonia 11/18/24 16:20 Respiratory Therapy Consult ONCE Comment: Reason For Exam: Diagnosis: sepsis/pneumonia 11/18/24 16:43 Respiratory Therapy Assessment DAILY Comment: Diagnosis: sepsis/pneumonia Discharge Exam General Appearance: no apparent distress, alert Neurologic Exam: alert, oriented x 3, cooperative, normal mood/affect, nml cerebellar function, sensation nml, No motor deficits Eye Exam: PERRL, EOMI, eyes nml inspection Ears, Nose, Throat Exam: normal ENT inspection, pharynx normal, moist mucous membranes Neck Exam: normal inspection, non-tender, supple, full range of motion Respiratory Exam: normal breath sounds, lungs clear, No respiratory distress Cardiovascular Exam: regular rate/rhythm, normal heart sounds Gastrointestinal/Abdomen Exam: soft, No tenderness, No mass Pelvic Exam: deferred Rectal Exam: deferred Back Exam: normal inspection, normal range of motion, No CVA tenderness, No vertebral tenderness Extremity Exam: normal inspection, normal range of motion Skin Exam: normal color, warm, dry Final Diagnosis/Problem List - Final Discharge Diagnosis/Problem (1) Sepsis Current Visit: Yes Status: Acute (2) Acute respiratory failure with hypoxia Current Visit: Yes Status: Acute Code(s): J96.01 - ACUTE RESPIRATORY FAILURE WITH HYPOXIA (3) CHF (congestive heart failure) Current Visit: Yes Status: Acute Code(s): I50.9 - HEART FAILURE, UNSPECIFIED (4) COPD exacerbation Current Visit: Yes Status: Acute Code(s): J44.1 - CHRONIC OBSTRUCTIVE PULMONARY DISEASE W (ACUTE) EXACERBATION (5) Afib Current Visit: Yes Status: Acute Code(s): I48.91 - UNSPECIFIED ATRIAL FIBRILLATION (6) Acute UTI (urinary tract infection) Current Visit: Yes Status: Acute Code(s): N39.0 - URINARY TRACT INFECTION, SITE NOT SPECIFIED (7) Pneumonia Current Visit: Yes Status: Acute Code(s): J18.9 - PNEUMONIA, UNSPECIFIED ORGANISM (8) Hypothyroid Current Visit: Yes Status: Acute Code(s): E03.9 - HYPOTHYROIDISM, UNSPECIFIED (9) Acute renal failure superimposed on chronic kidney disease Current Visit: No Status: Acute Code(s): N17.9 - ACUTE KIDNEY FAILURE, UNSPECIFIED; N18.9 - CHRONIC KIDNEY DISEASE, UNSPECIFIED (10) HTN (hypertension) Current Visit: No Status: Acute Code(s): I10 - ESSENTIAL (PRIMARY) HYPERTENSION (11) Hypocalcemia due to chronic kidney disease Current Visit: Yes Status: Acute Code(s): E83.51 - HYPOCALCEMIA; N18.9 - CHRONIC KIDNEY DISEASE, UNSPECIFIED (12) Type 2 diabetes mellitus Current Visit: Yes Status: Acute (13) Acute exacerbation of CHF (congestive heart failure) Current Visit: No Status: Acute Code(s): I50.9 - HEART FAILURE, UNSPECIFIED (14) Allergic reaction Current Visit: Yes Status: Acute Assessment & Plan: 1) Sepsis Current Visit: Yes Status: Acute Assessment & Plan: -Meet criteria with temp 103.6, tachypnea, tachycardia - known sources of infection UTI/pneuomina -CXR showed patchy opacities and left lower lobe infiltrate consistent with pneumonia, along with cardiomegaly and vascular congestion suggesting volume overload -WBC at 17.4- trend -Procal at 3.160 -Ceftriaxone/azith started in ED- reviewed past ucult with VRE - will start on linezolid/cefepime -Blood/Urine/sputum cultures pending - will follow -Supplemental oxygen with goal spo2 > 92% -currently at 2L 94% -ABG with significant lethargy -PPI/VTE heparin -COVID/FLU/RSV negative -RT eval and follow -IVF contraindicated with fluid overload noted on CXR 11/19 - No temp overnight - + BC x2 gram negative rods - WBC 16.9- improved - Room air 94% - CBC, CMP reviewed 11/20 - UC + ecoli, antb changed to INVANZ for 14 days - BC x2 pending sensitivity- will continue to follow OP. (2) Acute respiratory failure with hypoxia Current Visit: Yes Status: Acute Assessment & Plan: -see sepsis 11/19 - Room air 94% - Likely 2:2 allergic reaction, CHF 11/20 - Continued Room air Code(s): J96.01 - ACUTE RESPIRATORY FAILURE WITH HYPOXIA (3) CHF (congestive heart failure) Current Visit: Yes Status: Acute Assessment & Plan: -CXR as stated above -Most recent echo 11/16/23 IMPRESSION: EF 72% 1. NORMAL CONTRACTILITY OF THE LEFT VENTRICLE. 2. MILD CONCENTRIC LEFT VENTRICULAR HYPERTROPHY. 3. POSSIBLE IMPAIRED LEFT VENTRICULAR RELAXATION. 4. MILD TRICUSPID REGURGITATION. 5. NORMAL RIGHT VENTRICULAR SYSTOLIC PRESSURE. 6. MITRAL VALVULAR CALCIFICATION. - Continue home meds - Consider echo - Pt to f/u with cardiology OP Code(s): I50.9 - HEART FAILURE, UNSPECIFIED (4) COPD exacerbation Current Visit: Yes Status: Acute Assessment & Plan: - See sepsis - Today RA 94% Code(s): J44.1 - CHRONIC OBSTRUCTIVE PULMONARY DISEASE W (ACUTE) EXACERBATION (5) Afib Current Visit: Yes Status: Acute Assessment & Plan: -EKG showed sinus tachycardia with no acute ST elevations and negative initial troponin -Reviewed fdc documentation with nurse- no anticoagulation noted- will call SNF to verify 11/20 - Pt report she is supposed to be on coumadin. - Will draw PT/INR today and resume appropriate dosing for ECF. Code(s): I48.91 - UNSPECIFIED ATRIAL FIBRILLATION (6) Acute UTI (urinary tract infection) Current Visit: Yes Status: Acute Assessment & Plan: -UC + e-coli - Started Invanz per sensitivity Code(s): N39.0 - URINARY TRACT INFECTION, SITE NOT SPECIFIED (7) Pneumonia Current Visit: Yes Status: Acute Assessment & Plan: -see sepsis Code(s): J18.9 - PNEUMONIA, UNSPECIFIED ORGANISM (8) Hypothyroid Current Visit: Yes Status: Acute Assessment & Plan: -continue levothyroxine Code(s): E03.9 - HYPOTHYROIDISM, UNSPECIFIED (9) Acute kidney injury superimposed on CKD Current Visit: No Status: Acute Assessment & Plan: -Creat at 2.65, baseline around 2.4-2.5 -Patient received IVF in ED -CXR with fluid overload, will hold further IVF -monitor renal/lytes -avoid nephrotoxic agents - renal dose medications 11/19 - Creat 2.61- improving 11/20 - Creat 2.61- will need OP f/u with nephrology Code(s): N17.9 - ACUTE KIDNEY FAILURE, UNSPECIFIED; N18.9 - CHRONIC KIDNEY DISEASE, UNSPECIFIED (10) HTN (hypertension) Current Visit: Yes Status: Acute Assessment & Plan: -continue home meds- stable Code(s): I10 - ESSENTIAL (PRIMARY) HYPERTENSION (11) Hypocalcemia due to chronic kidney disease Current Visit: Yes Status: Acute Assessment & Plan: -continue calcium carbonate home dosing Code(s): E83.51 - HYPOCALCEMIA; N18.9 - CHRONIC KIDNEY DISEASE, UNSPECIFIED (12) Type 2 diabetes mellitus Current Visit: Yes Status: Acute Assessment & Plan: -ADA diet -SSI/glargine/meal time -A1c 7.7 on - controlled (13) Acute exacerbation of CHF (congestive heart failure) Current Visit: No Status: Acute Assessment & Plan: - BNP 3290 - Lasix 40 BID - As seen on chest CT - Intake and output - daily weight Code(s): I50.9 - HEART FAILURE, UNSPECIFIED (14) Allergic reaction Current Visit: Yes Status: Acute Assessment & Plan: - Pt feels she had an allergic reaction to Levaquin yesterday. She was started on this in the ECF and developed tongue edema and SOB - Benadryl gave in the ER. - Sxs resolved 11/19 Code(s): T78.40XA - ALLERGY, UNSPECIFIED, INITIAL ENCOUNTER - Discharge Discharge Date: 11/20/24 ([facility]) Disposition: XFER OTHER Condition: Fair Prescriptions: New Ertapenem Sodium [Invanz ] 1 g IV Q24H10 14 Days #14 units Continue Ferrous Sulfate 325 mg [Feosol 325 mg] 325 mg PO BID Cholecalciferol (Vitamin D3) [Vitamin D] 50,000 unit PO WEEKLY Amlodipine Besylate [Norvasc] 2.5 mg PO DAILY calcitrioL [Calcitriol] 0.5 mcg PO DAILY Dronedarone Hydrochloride 400* [Multaq 400 MG] 400 mg PO BID Pantoprazole 20 mg [Protonix 20MG Tablet] 20 mg PO BID Cranberry Fruit Extract [Cranberry] 250 mg PO BID Metoprolol Tartrate [Lopressor] 100 mg PO BID Metoprolol Tartrate 50 mg [Lopressor 50 MG] 50 mg PO BID Magnesium Oxide 400 mg [Mag-Ox 400] 400 mg PO BID Furosemide 40 mg [Lasix 40 MG] 40 mg PO DAILY Potassium Chloride Tab* [Klor Con] 10 meq PO DAILY Rosuvastatin Calcium 5 mg PO DAILY Montelukast Sodium 10 mg [Singulair 10 MG] 10 mg PO DAILY Folic Acid 1 mg [Folate 1 mg] 1 mg PO DAILY Famotidine 20 mg [Pepcid 20 MG] 20 mg PO BID Lactobacillus Acidophilus [Acidophilus TABLET] 1 cap PO DAILY Buspirone HCl 5 mg [Buspar 5 mg] 10 mg PO BID Insulin Lispro [Humalog] 15 unit SQ .0800, 1200 Cyanocobalamin 100 Mcg [Vitamin B-12 100 Mcg] 1,000 mcg PO DAILY Pregabalin 50 mg [Lyrica 50MG] 50 mg PO DAILY Insulin Lispro [Humalog] 7 unit SQ DINNER Acetaminophen 325 mg [Tylenol 325 mg] 650 mg PO Q6H PRN PRN Reason: Fever Loperamide HCl [Imodium A-D] See Rx Instructions .ROUTE .COMPLEX PRN PRN Reason: Diarrhea Insulin Glargine,Hum.rec.anlog [Toujeo Solostar] See Protocol SQ HS Insulin Lispro [Humalog] See Protocol SQ AC Insulin Glargine,Hum.rec.anlog [Toujeo Solostar] 22 unit SQ HS Tamsulosin HCl [Flomax] 0.4 mg PO HS Melatonin 3 mg PO HS Cetirizine HCl [Zyrtec] 10 mg PO HS Levothyroxine Sodium [Euthyrox] 175 mcg PO DAILY Calcium Carbonate [Tums Ultra] 400 mg PO QID Blood-Glucose Sensor [Dexcom G7 Sensor] 1 applic SQ Q10D Bisacodyl 10 mg [Dulcolax 10 MG SUPP] 10 mg RC Q24H PRN PRN Reason: Constipation Instructions: Acute respiratory distress syndrome Additional Instructions: * Follow up with cardiology, nephrology, hematology ( for hx of failed eliquis, ow on coumadi for DVT with hx of a-fib). * Restart coumadin -Recheck PT/INR Q 2-3 days for target INR of 2-3 RESUME PREVIOUS CUSTODIAL ORDERS SEE ATTACHED MED LIST Follow up with: [facility] [LOCATION, UNKNOWN]
[2024-11-20 12:02] LABS: Hematocrit 27.7 % (34.1-44.9); Hemoglobin 9.1 g/dL (11.2-15.7); Mean Cell Volume 90.5 fL (79.4-94.8); Mean Corpuscular Hemoglobin 29.7 pg (25.6-32.2); Mean Corpuscular Hgb Concent. 32.9 g/dL (32.2-35.5); Mean Platelet Volume 11.6 fL (9.4-12.3); Platelet Count 340 x10^3/uL (182-369); Red Blood Count 3.06 x10^6/uL (3.93-5.22); Red Cell Distribution Width 13.3 % (11.7-14.4); White Blood Count 12.7 x10^3/uL (3.98-10.04)
[2024-11-20 12:15] LABS: ALBUMIN 3.9 g/dL (3.5-5.0); ANION GAP 19.3 MEQ/L (5-15); BILIRUBIN,TOTAL 0.3 mg/dL (0.2-1.3); Calcium 6.7 mg/dL (8.4-10.2); Creatinine 1 3.01 mg/dL (0.52-1.04); EST GLOMERULAR FILTRATION RATE 15.3 ML/MIN; INR 0.94 (0.8-3.0); PROTIME 10.3 SECONDS (9.4-12.5); Potassium 3.9 mmol/L (3.5-5.1); Total Protein 7.3 g/dL (6.3-8.2)
[2024-11-22] MEDS ORDERED: ZYVOX 600 MG IV SCH (10:00)
[2024-11-25] MEDS ORDERED: VITAMIN D PO SCH (10:00)
== END 2024-11-20 13:08 ==
LOC: ED 11:48 → MED SURG 15:36
PROVIDERS: ADMIT Internal Medicine; ATTEND Internal Medicine
DX: A41.9 Sepsis, unspecified organism (principal); J96.01 Acute respiratory failure with hypoxia; E11.22 Type 2 diabetes mellitus with diabetic chronic kidney disease; I13.0 Hypertensive heart and chronic kidney disease with heart failure and stage 1 through stage 4 chronic kidney disease, or unspecified chronic kidney disease; I50.9 Heart failure, unspecified; J44.1 Chronic obstructive pulmonary disease with (acute) exacerbation; I48.91 Unspecified atrial fibrillation; N39.0 Urinary tract infection, site not specified; B96.20 Unspecified Escherichia coli [E. coli] as the cause of diseases classified elsewhere; J18.9 Pneumonia, unspecified organism; E03.9 Hypothyroidism, unspecified; N17.9 Acute kidney failure, unspecified; N18.9 Chronic kidney disease, unspecified; E83.51 Hypocalcemia; T36.8X5A Adverse effect of other systemic antibiotics, initial encounter; Z79.899 Other long term (current) drug therapy; Z79.01 Long term (current) use of anticoagulants; Z85.3 Personal history of malignant neoplasm of breast
CPT/HCPCS: 0241U; 36415; 51702; 70450; 70490; 71045; 71250; 80053; 81001; 82947; 83605; 83880; 84145; 84484; 85025; 85027; 85610; 87040; 87077; 87086; 87186; 93005; 93041; 93268; 94640; 94760; 96374; 96375; 99285; G0378; J0456; J0696; J1200; J1335; J1644; J1817; J1938; J2020; J2919; Q3014; A9270-GY

== ENCOUNTER 2024-12-07 09:53 | Inpatient (IN) | payer MEDICARE, OTHER ==
[2024-12-07 10:38] LABS: Absolute Neutrophil Ct (ANC) 13.82 x10^3/uL (1.56-6.13); BASOPHIL % 0.5 % (0.1-1.2); Basophil (Absolute #) 0.08 x10^3/uL (0.01-0.08); Eosinophil (Absolute #) 0 x10^3/uL (0.04-0.36); Hematocrit 31.7 % (34.1-44.9); Hemoglobin 10.1 g/dL (11.2-15.7); IMMATURE GRAN # 0.09 x10^3u/L (0.001-0.031); IMMATURE GRAN % 0.6 % (0.001-0.429); Lymphocyte (Absolute #) 0.51 x10^3/uL (1.18-3.74); Lymphocytes % 3.3 % (19.3-51.7); Mean Cell Volume 93.2 fL (79.4-94.8); Mean Corpuscular Hemoglobin 29.7 pg (25.6-32.2); Mean Corpuscular Hgb Concent. 31.9 g/dL (32.2-35.5); Mean Platelet Volume 11.4 fL (9.4-12.3); Monocyte (Absolute #) 0.94 x10^3/uL (0.24-0.86); Monocytes % 6.1 % (4.7-12.5); Neutrophil % 89.5 % (34.0-71.1); Platelet Count 352 x10^3/uL (182-369); Red Cell Distribution Width 13.4 % (11.7-14.4); White Blood Count 15.4 x10^3/uL (3.98-10.04)
--- NOTE | 2024-12-07 10:50 | XRAY ---
Indication: Fever. Dyspnea. Comparison: November 18, 2024 Portable chest limited as left costophrenic angle not completely included. Remaining lungs demonstrates worsening bilateral pulmonary edema. New right apical consolidating and right infrahilar nonconsolidating airspace disease. Heart borderline enlarged again with aortic valve replacement. Bony thorax intact again with osteopenia and degenerative changes.
[2024-12-07 10:58] LABS: ALBUMIN 4.4 g/dL (3.5-5.0); ANION GAP 25.5 MEQ/L (5-15); BILIRUBIN,TOTAL 0.9 mg/dL (0.2-1.3); Calcium 7.9 mg/dL (8.4-10.2); Creatinine 1 2.16 mg/dL (0.52-1.04); EST GLOMERULAR FILTRATION RATE 22.7 ML/MIN; Potassium 4.3 mmol/L (3.5-5.1); Total Protein 7.7 g/dL (6.3-8.2)
[2024-12-07 11:02] LABS: Slide Review 1 YES
[2024-12-07 11:12] LABS: VBG BASE EXCESS 2.8 (-2.0-2.0); VBG CARBOXYHEMOGLOBIN 3.2 % T HGB (0.0-6.9); VBG HCO3- 23.6 meq/L (22-28); VBG HEMOGLOBIN 10.4; VBG POTASSIUM 4.4 (3.5-5.1)
[2024-12-07 11:13] LABS: VBG pH 7.6 (7.32-7.42)
[2024-12-07] MEDS ORDERED: Sodium Chloride 0.9% 1000 ML 1,000 ML ONE (11:14)
[2024-12-07] MEDS ORDERED: ROCEPHIN 1 GM / 100 ML NaCl 1 GM/100 ML IVPB IV ONE (11:14)
[2024-12-07] MEDS: Sodium Chloride 0.9% 1000 ML 1,000 ML IV STA (11:23)
[2024-12-07] MEDS: ROCEPHIN 1 GM / 100 ML NaCl 1 GM/100 ML IVPB IV ONE (11:23)
[2024-12-07] MEDS: Rocephin 1000 MG INJ IM ONE (11:24)
[2024-12-07 11:26] LABS: INR 3.21 (0.8-3.0); PROTIME 32.4 SECONDS (9.4-12.5); PTT 40.2 SECONDS (25.1-36.5)
--- NOTE | 2024-12-07 12:26 | ERPHSYRPT ---
- History of Present Illness Source: EMS, [facility] records Exam Limitations: clinical condition Patient Subjective Stated Complaint: Pt states "I can't breath.". EMS states "She has been having a hard time breathing and her sugar was 350. Her SpO2 was 84 on 3 lpm O2 and she is not normally on O2." Triage Nursing Assessment: Pt presented alert and oriented X 3, skin Pwd. Pt tachypneic and has audible wheezes noted. PT has had a masectomy on left and limb alert was applied, pt has a midline placed in right upper arm. Physician History: Patient has dyspnea and a fever. She is also quite fatigued. Symptoms been going on for couple days now its gotten worse.She is a poor historian. I got most of my history from EMS and the [facility]. Basically she just has fever and some shortness of breath.The [facility] staff got worried because she seemed to have a altered level of consciousness and was confused. Patient seems to be alert and oriented enough. She has had some shortness of breath for about 24 hours.Her O2 sats were low whenever she was first evaluated. She has responded well to supplemental oxygen. Timing/Duration: yesterday Allergies/Adverse Reactions: albuterol Allergy (Intermediate, Verified 11/18/24 15:57) Swelling of Tongue and Lips propranolol [From Inderal LA] Allergy (Intermediate, Verified 11/18/24 15:57) red face and ears levofloxacin [From Levaquin] Allergy (Unknown, Verified 11/18/24 15:57) clonazepam [From Klonopin] Allergy (Verified 11/18/24 15:57) Tightness of Throat tongue swollen metoclopramide [From Reglan] Allergy (Verified 11/18/24 15:57) propranolol HCl [From Inderal LA] Allergy (Verified 11/18/24 15:57) Swelling of Tongue and Lips red face and ears [id number]-[id number] Reductase Inhibitor Allergy (Verified 11/18/24 15:57) Wheezing Sulfa (Sulfonamide Antibiotics) Allergy (Verified 11/18/24 15:57) Swelling of Tongue and Lips throat swell,ears red terfenadine Allergy (Verified 11/18/24 15:57) venom-honey bee [bee venom (honey bee)] Allergy (Verified 11/18/24 15:57) Hives large hives wheat Allergy (Verified 11/18/24 15:57) zanamivir [From Relenza Disktopherer] Allergy (Verified 11/18/24 15:57) Swelling of Tongue and Lips throat tightness cilostazol [From Pletal] Adverse Reaction (Severe, Verified 11/18/24 15:57) Swelling of Tongue and Lips ticagrelor [From Brilinta] Adverse Reaction (Severe, Verified 11/18/24 15:57) Swelling of Tongue and Lips Home Medications: Acetaminophen 325 mg [Tylenol 325 mg] 650 mg PO Q6H PRN 11/18/24 [History] Amlodipine Besylate [Norvasc] 2.5 mg PO DAILY 11/18/24 [History] Bisacodyl 10 mg [Dulcolax 10 MG SUPP] 10 mg RC Q24H PRN 11/18/24 [History] Blood-Glucose Sensor [Dexcom G7 Sensor] 1 applic SQ Q10D 11/18/24 [History] Buspirone HCl 5 mg [Buspar 5 mg] 10 mg PO BID 11/18/24 [History] Calcium Carbonate [Tums Ultra] 400 mg PO QID 11/18/24 [History] Cetirizine HCl [Zyrtec] 10 mg PO HS 11/18/24 [History] Cholecalciferol (Vitamin D3) [Vitamin D] 50,000 unit PO WEEKLY 11/18/24 [History] Cranberry Fruit Extract [Cranberry] 250 mg PO BID 11/18/24 [History] Cyanocobalamin 100 Mcg [Vitamin B-12 100 Mcg] 1,000 mcg PO DAILY 11/18/24 [History] Dronedarone Hydrochloride 400* [Multaq 400 MG] 400 mg PO BID 11/18/24 [History] Famotidine 20 mg [Pepcid 20 MG] 20 mg PO BID 11/18/24 [History] Ferrous Sulfate 325 mg [Feosol 325 mg] 325 mg PO BID 11/18/24 [History] Folic Acid 1 mg [Folate 1 mg] 1 mg PO DAILY 11/18/24 [History] Furosemide 40 mg [Lasix 40 MG] 40 mg PO DAILY 11/18/24 [History] Insulin Glargine,Hum.rec.anlog [Toujesuso Solostar] 22 unit SQ HS 11/18/24 [History] Insulin Glargine,Hum.rec.anlog [Toujeo Solostar] See Protocol SQ HS 11/18/24 [History] Insulin Lispro [Humalog] 7 unit SQ DINNER 11/18/24 [History] Insulin Lispro [Humalog] 15 unit SQ .0800, 1200 11/18/24 [History] Insulin Lispro [Humalog] See Protocol SQ AC 11/18/24 [History] Lactobacillus Acidophilus [Acidophilus TABLET] 1 cap PO DAILY 11/18/24 [History] Levothyroxine Sodium [Euthyrox] 175 mcg PO DAILY 11/18/24 [History] Loperamide HCl [Imodium A-D] See Rx Instructions .ROUTE .COMPLEX PRN 11/18/24 [History] Magnesium Oxide 400 mg [Mag-Ox 400] 400 mg PO BID 11/18/24 [History] Melatonin 3 mg PO HS 11/18/24 [History] Metoprolol Tartrate 50 mg [Lopressor 50 MG] 50 mg PO BID 11/18/24 [History] Metoprolol Tartrate [Lopressor] 100 mg PO BID 11/18/24 [History] Montelukast Sodium 10 mg [Singulair 10 MG] 10 mg PO DAILY 11/18/24 [History] Pantoprazole 20 mg [Protonix 20MG Tablet] 20 mg PO BID 11/18/24 [History] Potassium Chloride Tab* [Klor Con] 10 meq PO DAILY 11/18/24 [History] Pregabalin 50 mg [Lyrica 50MG] 50 mg PO DAILY 11/18/24 [History] Rosuvastatin Calcium 5 mg PO DAILY 11/18/24 [History] Tamsulosin HCl [Flomax] 0.4 mg PO HS 11/18/24 [History] calcitrioL [Calcitriol] 0.5 mcg PO DAILY 11/18/24 [History] Magnesium Hydroxide 30 ml [Milk of Magnesia 30 ml] 30 ml PO DAILY PRN 05/09/25 [History] Warfarin Sodium 2 mg [Coumadin 2 MG] 2 mg PO DAILY 12/07/24 [History] Zinc Oxide Ointment 30 gm 30 gm TP DAILY PRN 12/07/24 [History] Hx Tetanus, Diphtheria Vaccination/Date Given: (01/20/18) Hx Influenza Vaccination/Date Given: Yes (05/21/24) Hx Pneumococcal Vaccination/Date Given: Yes (06/21/23) Immunizations Up to Date: No Travel Risk - International Travel Have you traveled outside of the country in past 3 weeks: No - Emerging Infectious Disease Are you exhibiting symptoms associated with any current EIDs: No Symptoms: Fever, Shortness of Breath - Review of Systems Constitutional: No Symptoms Eyes: No Symptoms Ears, Nose, & Throat: No Symptoms Respiratory: Cough, Dyspnea, Wheezing Cardiac: No Symptoms Abdominal/Gastrointestinal: No Symptoms All Other Systems: Reviewed and Negative (Difficult to get a very accurate review of systems secondary to her clinical condition.) - Past Medical History Pertinent Past Medical History: Yes Neurological History: TIA, Peripheral Neuropathy ENT History: Other Cardiac History: Arrhythmia, Congestive Heart Failure, High Cholesterol, Hypertension, Myocardial Infarction (ND) Respiratory History: CHF, COPD Endocrine Medical History: Diabetes Type II, Hypothyroidism Musculoskeletal History: No Pertinent History GI Medical History: Other, GERD History: No Pertinent History Psycho-Social History: Anxiety Female Reproductive Disorders: Breast Cancer Other Medical History: right eye retinal scratch - Past Surgical History Past Surgical History: Yes Neuro Surgical History: No Pertinent History Cardiac: Other Respiratory: No Pertinent History Gastrointestinal: Hernia Repair Genitourinary: No Pertinent History Musculoskeletal: No Pertinent History Female Surgical History: Mastectomy, Lumpectomy Other Surgical History: left mastectomy 1993, right lumpectomy, right thyroid removed, left thyroid removed with goiter, pubic mass, left knee scope, valve replacement Significant Family History: no pertinent family hx - Social History Smoking Status: Never smoker Exposure to second hand smoke: No Drug Use: none - Social Determinants of Health Will the patient participate in the screening: Unable to obtain - Nursing Vital Signs Nursing Vital Signs: Initial Vital Signs Temperature 102.2 F 12/07/24 09:55 Pulse Rate 106 H 12/07/24 09:55 Respiratory Rate 26 H 12/07/24 09:55 Blood Pressure 160/100 12/07/24 09:55 O2 Sat by Pulse Oximetry 95 12/07/24 09:55 Pain Scale Pain Intensity 0 - Physical Exam General Appearance: mild distress, moderate distress Eye Exam: PERRL/EOMI Respiratory Exam: decreased breath sounds, respiratory distress, decreased air movement, prolonged expirations, wheezing Cardiovascular/Chest Exam: normal heart sounds, tachycardia Gastrointestinal/Abdominal Exam: soft, non tender, no distention Extremity Exam: non-tender, normal range of motion, normal inspection, no pedal edema Neurologic Exam: alert Skin Exam: normal color, warm, dry SpO2: 98 O2 Delivery: Venti-Mask - Course Nursing assessment & vital signs reviewed: Yes EKG Interpreted by Me: RATE, NORMAL INTERVALS, NORMAL QRS, Non-specific ST Changes Ordered Tests: Active Orders 24 hr Category Date Time Status Typewriters Functional Tester STAT Care 12/07/24 10:12 Active EKG-ER Only STAT Care 12/07/24 10:11 Active IV Insertion STAT Care 12/07/24 10:11 Active Oxygen-ED Only Venti-Mask 24% Care 12/07/24 10:11 Active CHEST 1 VIEW (PORTABLE) Stat Exams 12/07/24 10:12 Completed BLOOD CULTURE Stat Lab 12/07/24 11:00 Received BNPII [NT PRO BNPII] Stat Lab 12/07/24 10:11 Completed CBC W DIFF Stat Lab 12/07/24 10:38 Completed CMP Stat Lab 12/07/24 10:38 Completed CULTURE,URINE Stat Lab 12/07/24 13:16 Received Lactic Acid Stat Lab 12/07/24 10:11 Completed PROTIME WITH INR Stat Lab 12/07/24 11:00 Completed PTT Stat Lab 12/07/24 11:00 Completed UA W/RFX UR CULTURE Stat Lab 12/07/24 13:16 Completed VENOUS BLOOD GAS Stat Lab 12/07/24 10:12 Completed Medication Summary Discontinued Medications Generic Name Dose Route Start Last Admin Trade Name Freq PRN Reason Stop Dose Admin Albuterol Sulfate 2.5 mg 12/07/24 12:31 12/07/24 12:53 Albuterol Solution 2.5 Mg/0.5 Ml Ud Solution IH 12/07/24 12:32 Not Given STAT ONE Albuterol/Ipratropium 3 ml 12/07/24 12:31 12/07/24 12:53 Ipratropium/Albuterol Sulfate 3 Ml Ampul.Neb IH 12/07/24 12:32 Not Given STAT ONE Ceftriaxone Sodium 1,000 mg 12/07/24 10:11 12/07/24 11:24 Ceftriaxone Sodium 1000 Mg Inj Vial IM 12/07/24 10:12 Not Given STAT ONE Sodium Chloride 1,000 mls @ 999 mls/hr 12/07/24 10:14 12/07/24 12:26 Sodium Chloride 0.9% 1000 Ml IV 12/07/24 11:14 Infused .Q1H1M STA Infusion Ceftriaxone Sodium 1 gm in 100 mls @ 200 mls/hr 12/07/24 10:59 12/07/24 12:19 Rocephin 1 Gm / 100 Ml Nacl IV 12/07/24 11:28 Infused STAT ONE Infusion Sodium Chloride Confirm 12/07/24 11:14 Sodium Chloride 0.9% 1000 Ml Administered 12/07/24 11:15 Dose 1,000 mls @ ud .ROUTE .STK-MED ONE Ceftriaxone Sodium Confirm 12/07/24 11:14 Rocephin 1 Gm / 100 Ml Nacl Administered 12/07/24 11:15 Dose 1 gm in 100 mls @ ud IV .STK-MED ONE Lab/Rad Data: Laboratory Result Diagrams 12/07/24 10:38 12/07/24 10:38 Laboratory Results 12/07/24 12/07/24 12/07/24 Range/Units 13:16 11:00 10:38 WBC (3.98-10.04) x10^3/uL RBC (3.93-5.22) x10^6/uL Hgb (11.2-15.7) g/dL Hct (34.1-44.9) % MCV (79.4-94.8) fL MCH (25.6-32.2) pg MCHC (32.2-35.5) g/dL RDW (11.7-14.4) % Plt Count (182-369) x10^3/uL MPV (9.4-12.3) fL Gran % (34.0-71.1) % Immature Gran % (Auto) (0.001-0.429) % Nucleat RBC Rel Count (0.00-0.2) % Eos # (Auto) (0.04-0.36) x10^3/uL Immature Gran # (Auto) (0.001-0.031) x10^3u/L Absolute Lymphs (auto) (1.18-3.74) x10^3/uL Absolute Monos (auto) (0.24-0.86) x10^3/uL Absolute Nucleated RBC (0.00-0.012) x10^3u/L Lymphocytes % (19.3-51.7) % Monocytes % (4.7-12.5) % Eosinophils % (0.7-5.8) % Basophils % (0.1-1.2) % Absolute Granulocytes (1.56-6.13) x10^3/uL Basophils # (0.01-0.08) x10^3/uL PT 32.4 H (9.4-12.5) SECONDS INR 3.21 H (0.8-3.0) APTT 40.2 H (25.1-36.5) SECONDS pO2/FiO2 Ratio % VBG pH (7.32-7.42) VBG pCO2 at Pat Temp (42-55) mm/Hg VBG pO2 at Pat Temp (25-40) mm/Hg VBG HCO3 (22-28) meq/L VBG O2 Sat (Kathy) (95-100) VBG Base Excess (-2.0-2.0) VBG Hemoglobin VBG Carboxyhemoglobin (0.0-6.9) % T HGB POC Potassium (3.5-5.1) Sodium 142 (135-145) mmol/L Potassium 4.3 (3.5-5.1) mmol/L Chloride 101 (98-107) mmol/L Carbon Dioxide 20 L (22-30) mmol/L Anion Gap 25.5 H (5-15) MEQ/L BUN 38 H (7-17) mg/dL Creatinine 2.16 H (0.52-1.04) mg/dL Estimated GFR 22.7 ML/MIN Glucose 334 H (74-106) mg/dL Lactic Acid (0.4-2.0) Calcium 7.9 L (8.4-10.2) mg/dL Total Bilirubin 0.90 (0.2-1.3) mg/dL AST 39 H (14-36) U/L ALT 39 H (0-35) U/L Alkaline Phosphatase 132 H (38-126) U/L NT-Pro-B Natriuret Pep (<300) pg/mL Serum Total Protein 7.7 (6.3-8.2) g/dL Albumin 4.4 (3.5-5.0) g/dL Urine Color Yellow (Yellow) Urine Appearance Clear (Clear) Urine pH 6.5 (4.6-8.0) Ur Specific [place] 1.015 (1.005-1.030) Urine Protein 300 A (Negative) Urine Glucose (UA) >=1000 A (Negative) mg/dL Urine Ketones 15 A (Negative) Urine Blood Trace (Negative) Urine Nitrite Negative (Negative) Urine Bilirubin Negative (Negative) Urine Urobilinogen 0.2 (0.2) mg/dL Ur Leukocyte Esterase Trace A (Negative) U Hyaline Cast (Auto) NONE SEEN (0-2) /LPF Urine Microscopic RBC 3-5 (0-5) /HPF Urine Microscopic WBC 6-10 A (0-5) /HPF Ur Epithelial Cells None Seen (None Seen) /HPF Urine Bacteria None Seen (None Seen) /HPF Urine Culture Reflexed ORDERED SEPARATELY (NO) Slides for Path Review 12/07/24 12/07/24 12/07/24 Range/Units 10:38 10:12 10:11 WBC 15.4 H (3.98-10.04) x10^3/uL RBC 3.40 L (3.93-5.22) x10^6/uL Hgb 10.1 L (11.2-15.7) g/dL Hct 31.7 L (34.1-44.9) % MCV 93.2 (79.4-94.8) fL MCH 29.7 (25.6-32.2) pg MCHC 31.9 L (32.2-35.5) g/dL RDW 13.4 (11.7-14.4) % Plt Count 352 (182-369) x10^3/uL MPV 11.4 (9.4-12.3) fL Gran % 89.5 H (34.0-71.1) % Immature Gran % (Auto) 0.6 H (0.001-0.429) % Nucleat RBC Rel Count 0.0 (0.00-0.2) % Eos # (Auto) 0 L (0.04-0.36) x10^3/uL Immature Gran # (Auto) 0.09 H (0.001-0.031) x10^3u/L Absolute Lymphs (auto) 0.51 L (1.18-3.74) x10^3/uL Absolute Monos (auto) 0.94 H (0.24-0.86) x10^3/uL Absolute Nucleated RBC 0.00 (0.00-0.012) x10^3u/L Lymphocytes % 3.3 L (19.3-51.7) % Monocytes % 6.1 (4.7-12.5) % Eosinophils % 0.0 L (0.7-5.8) % Basophils % 0.5 (0.1-1.2) % Absolute Granulocytes 13.82 H (1.56-6.13) x10^3/uL Basophils # 0.08 (0.01-0.08) x10^3/uL PT (9.4-12.5) SECONDS INR (0.8-3.0) APTT (25.1-36.5) SECONDS pO2/FiO2 Ratio 21.0 % VBG pH 7.60 H* (7.32-7.42) VBG pCO2 at Pat Temp 24 L (42-55) mm/Hg VBG pO2 at Pat Temp 85 H (25-40) mm/Hg VBG HCO3 23.6 (22-28) meq/L VBG O2 Sat (Kathy) 98.0 (95-100) VBG Base Excess 2.8 H (-2.0-2.0) VBG Hemoglobin 10.4 VBG Carboxyhemoglobin 3.2 (0.0-6.9) % T HGB POC Potassium 4.4 (3.5-5.1) Sodium (135-145) mmol/L Potassium (3.5-5.1) mmol/L Chloride (98-107) mmol/L Carbon Dioxide (22-30) mmol/L Anion Gap (5-15) MEQ/L BUN (7-17) mg/dL Creatinine (0.52-1.04) mg/dL Estimated GFR ML/MIN Glucose (74-106) mg/dL Lactic Acid (0.4-2.0) Calcium (8.4-10.2) mg/dL Total Bilirubin (0.2-1.3) mg/dL AST (14-36) U/L ALT (0-35) U/L Alkaline Phosphatase (38-126) U/L NT-Pro-B Natriuret Pep 85348 (<300) pg/mL Serum Total Protein (6.3-8.2) g/dL Albumin (3.5-5.0) g/dL Urine Color (Yellow) Urine Appearance (Clear) Urine pH (4.6-8.0) Ur Specific [place] (1.005-1.030) Urine Protein (Negative) Urine Glucose (UA) (Negative) mg/dL Urine Ketones (Negative) Urine Blood (Negative) Urine Nitrite (Negative) Urine Bilirubin (Negative) Urine Urobilinogen (0.2) mg/dL Ur Leukocyte Esterase (Negative) U Hyaline Cast (Auto) (0-2) /LPF Urine Microscopic RBC (0-5) /HPF Urine Microscopic WBC (0-5) /HPF Ur Epithelial Cells (None Seen) /HPF Urine Bacteria (None Seen) /HPF Urine Culture Reflexed (NO) Slides for Path Review YES 12/07/24 Range/Units 10:11 WBC (3.98-10.04) x10^3/uL RBC (3.93-5.22) x10^6/uL Hgb (11.2-15.7) g/dL Hct (34.1-44.9) % MCV (79.4-94.8) fL MCH (25.6-32.2) pg MCHC (32.2-35.5) g/dL RDW (11.7-14.4) % Plt Count (182-369) x10^3/uL MPV (9.4-12.3) fL Gran % (34.0-71.1) % Immature Gran % (Auto) (0.001-0.429) % Nucleat RBC Rel Count (0.00-0.2) % Eos # (Auto) (0.04-0.36) x10^3/uL Immature Gran # (Auto) (0.001-0.031) x10^3u/L Absolute Lymphs (auto) (1.18-3.74) x10^3/uL Absolute Monos (auto) (0.24-0.86) x10^3/uL Absolute Nucleated RBC (0.00-0.012) x10^3u/L Lymphocytes % (19.3-51.7) % Monocytes % (4.7-12.5) % Eosinophils % (0.7-5.8) % Basophils % (0.1-1.2) % Absolute Granulocytes (1.56-6.13) x10^3/uL Basophils # (0.01-0.08) x10^3/uL PT (9.4-12.5) SECONDS INR (0.8-3.0) APTT (25.1-36.5) SECONDS pO2/FiO2 Ratio % VBG pH (7.32-7.42) VBG pCO2 at Pat Temp (42-55) mm/Hg VBG pO2 at Pat Temp (25-40) mm/Hg VBG HCO3 (22-28) meq/L VBG O2 Sat (Kathy) (95-100) VBG Base Excess (-2.0-2.0) VBG Hemoglobin VBG Carboxyhemoglobin (0.0-6.9) % T HGB POC Potassium (3.5-5.1) Sodium (135-145) mmol/L Potassium (3.5-5.1) mmol/L Chloride (98-107) mmol/L Carbon Dioxide (22-30) mmol/L Anion Gap (5-15) MEQ/L BUN (7-17) mg/dL Creatinine (0.52-1.04) mg/dL Estimated GFR ML/MIN Glucose (74-106) mg/dL Lactic Acid 1.4 (0.4-2.0) Calcium (8.4-10.2) mg/dL Total Bilirubin (0.2-1.3) mg/dL AST (14-36) U/L ALT (0-35) U/L Alkaline Phosphatase (38-126) U/L NT-Pro-B Natriuret Pep (<300) pg/mL Serum Total Protein (6.3-8.2) g/dL Albumin (3.5-5.0) g/dL Urine Color (Yellow) Urine Appearance (Clear) Urine pH (4.6-8.0) Ur Specific [place] (1.005-1.030) Urine Protein (Negative) Urine Glucose (UA) (Negative) mg/dL Urine Ketones (Negative) Urine Blood (Negative) Urine Nitrite (Negative) Urine Bilirubin (Negative) Urine Urobilinogen (0.2) mg/dL Ur Leukocyte Esterase (Negative) U Hyaline Cast (Auto) (0-2) /LPF Urine Microscopic RBC (0-5) /HPF Urine Microscopic WBC (0-5) /HPF Ur Epithelial Cells (None Seen) /HPF Urine Bacteria (None Seen) /HPF Urine Culture Reflexed (NO) Slides for Path Review - Progress Progress: improved Progress Note: Patient was stable throughout stay. An x-ray was done it showed pneumonia findings and some CHF. She did have a white count. I do not believe she was septic. She was normotensive and did not have an elevated lactic acid. I's also concern for pyelonephritis but her UA was clear. She refused COVID flu and RSV although those are on the differential. I spoke with the hospitalist. I had started her on Rocephin. I am going to add Zithromax. We will admit her to the hospital give her supplemental oxygen and antibiotics. 12/07/24 14:34 Discussed with : Brown Will see patient in: hospital (full admit) Medical Desision Making - External Record(s) Reviewed Records reviewed as a part of evaluation & management: jail - Discussion of managment Care discussed with:: hospitalist Reviewed:: Test results Agreed on:: Treatment plan, decision to admit Will see patient: in hospital - Diagnostic Testing Diagnostic test were ordered, analyzed, and reviewed by me: Yes Radiological Interpretation: Reviewed by me - Risk of complications The pt has a mod risk of morbidity or mortality based on: Need for prescription drug management - Departure Departure Disposition: In-patient Admission Clinical Impression: Pneumonia Condition: Fair Critical Care Time: No Referrals: JOE GEORGE MD [Primary Care Provider, [facility]] - Follow up/PCP as directed
[2024-12-07] MEDS: DUONEB 0.5-3 MG/3 ml Neb IH ONE (12:53)
[2024-12-07] MEDS: PROVENTIL Solution 2.5 MG/0.5 ML IH ONE (12:53)
[2024-12-07 13:38] LABS: Appearance Clear (Clear); Bacteria None Seen /HPF (None Seen); Bilirubin Negative (Negative); Blood Trace (Negative); Epithelial Cells None Seen /HPF (None Seen); Glucose, Urine >=1000 mg/dL (Negative); Hyaline Casts NONE SEEN /LPF (0-2); Ketones 15 (Negative); Leukocyte Esterase Trace (Negative); Nitrite Negative (Negative); Ph 6.5 (4.6-8.0); Protein,Urine Dip 300 (Negative); Specific Gravity 1.015 (1.005-1.030); Urobilinogen 0.2 mg/dL (0.2)
[2024-12-07] MEDS ORDERED: FEVERALL 650 MG PR PRN (15:01)
--- NOTE | 2024-12-07 16:05 | PCM.HP ---
History of Present Illness - Chief Complaint Chief Complaint: CHF Date: 12/07/24 History of Present Illness: Ms. Magana is a 79-year-old female and a resident of [facility], with a complex past medical history including coronary artery disease (CAD), pulmonary embolism/deep vein thrombosis (PE/DVT), anxiety, celiac disease, gastroesophageal reflux disease (GERD), hypertension, hypothyroidism, chronic kidney disease (CKD), congestive heart failure (CHF), chronic obstructive pulmonary disease (COPD), peripheral vascular disease (PVD), atrial fibrillation, ESBL infection, cerebrovascular accident (CVA), hyperlipidemia, anemia, depression, breast cancer, and type 2 diabetes mellitus. She presented to the emergency department today with complaints of dyspnea and fever, which have been progressively worsening over the past couple of days. She also reports significant fatigue. [facility] staff noted that the patient appeared confused and exhibited an altered level of consciousness, prompting her transfer. On evaluation, she is alert and oriented but intermittently confused and not behaving like her usual self, per staff familiar with her baseline. She has experienced shortness of breath for the past 24 hours and is currently requiring 10 liters of oxygen via oxymask, maintaining a saturation of 98%. She is being admitted for management of a COPD and CHF exacerbation, along with suspected pneumonia. Treatment has been initiated with antibiotics, steroids, Xopenex, Pulmicort, and Lasix. The patient denies chest pain, abdominal pain, nausea, vomiting, or diarrhea. Notably, she is using accessory abdominal muscles to assist with breathing. - Review of Systems Constitutional: Weakness, No Fever, No Chills Eyes: No Symptoms Ears, Nose, & Throat: No Symptoms Respiratory: Short Of Breath, No Cough Cardiac: Edema, No Chest Pain, No Syncope Abdominal/Gastrointestinal: No Abdominal Pain, No Nausea, No Vomiting, No Diarrhea Genitourinary Symptoms: No Dysuria Musculoskeletal: No Back Pain, No Neck Pain Skin: Other (Pale), No Rash Neurological: No Dizziness, No Focal Weakness, No Sensory Changes Psychological: No Symptoms Endocrine: No Symptoms Hematologic/Lymphatic: No Symptoms Immunological/Allergic: No Symptoms Medications & Allergies Home Medications: Home Medication List Acetaminophen 325 mg [Tylenol 325 mg] 650 mg PO Q6H PRN 11/18/24 [History Confirmed 12/07/24] Amlodipine Besylate [Norvasc] 2.5 mg PO DAILY 11/18/24 [History Confirmed 12/07/24] Bisacodyl 10 mg [Dulcolax 10 MG SUPP] 10 mg RC Q24H PRN 11/18/24 [History Confirmed 12/07/24] Blood-Glucose Sensor [Dexcom G7 Sensor] 1 applic SQ Q10D 11/18/24 [History Confirmed 12/07/24] Buspirone HCl 5 mg [Buspar 5 mg] 10 mg PO BID 11/18/24 [History Confirmed 12/07/24] Calcium Carbonate [Tums Ultra] 400 mg PO QID 11/18/24 [History Confirmed 12/07/24] Cetirizine HCl [Zyrtec] 10 mg PO HS 11/18/24 [History Confirmed 12/07/24] Cholecalciferol (Vitamin D3) [Vitamin D] 50,000 unit PO WEEKLY 11/18/24 [History Confirmed 12/07/24] Cranberry Fruit Extract [Cranberry] 250 mg PO BID 11/18/24 [History Confirmed 12/07/24] Cyanocobalamin 100 Mcg [Vitamin B-12 100 Mcg] 1,000 mcg PO DAILY 11/18/24 [History Confirmed 12/07/24] Dronedarone Hydrochloride 400* [Multaq 400 MG] 400 mg PO BID 11/18/24 [History Confirmed 12/07/24] Famotidine 20 mg [Pepcid 20 MG] 20 mg PO BID 11/18/24 [History Confirmed 12/07/24] Ferrous Sulfate 325 mg [Feosol 325 mg] 325 mg PO BID 11/18/24 [History Confirmed 12/07/24] Folic Acid 1 mg [Folate 1 mg] 1 mg PO DAILY 11/18/24 [History Confirmed 12/07/24] Furosemide 40 mg [Lasix 40 MG] 40 mg PO DAILY 11/18/24 [History Confirmed 12/07/24] Insulin Glargine,Hum.rec.anlog [Sofiya Leyva] 22 unit SQ HS 11/18/24 [History Confirmed 12/07/24] Insulin Glargine,Hum.rec.anlog [Sofiya Leyva] See Protocol SQ HS 11/18/24 [History Confirmed 12/07/24] Insulin Lispro [Humalog] 7 unit SQ DINNER 11/18/24 [History Confirmed 12/07/24] Insulin Lispro [Humalog] 15 unit SQ .0800, 1200 11/18/24 [History Confirmed 12/07/24] Insulin Lispro [Humalog] See Protocol SQ AC 11/18/24 [History Confirmed 12/07/24] Lactobacillus Acidophilus [Acidophilus TABLET] 1 cap PO DAILY 11/18/24 [History Confirmed 12/07/24] Levothyroxine Sodium [Euthyrox] 175 mcg PO DAILY 11/18/24 [History Confirmed 12/07/24] Loperamide HCl [Imodium A-D] See Rx Instructions .ROUTE .COMPLEX PRN 11/18/24 [History Confirmed 12/07/24] Magnesium Oxide 400 mg [Mag-Ox 400] 400 mg PO BID 11/18/24 [History Confirmed 12/07/24] Melatonin 3 mg PO HS 11/18/24 [History Confirmed 12/07/24] Metoprolol Tartrate 50 mg [Lopressor 50 MG] 50 mg PO BID 11/18/24 [History Confirmed 12/07/24] Metoprolol Tartrate [Lopressor] 100 mg PO BID 11/18/24 [History Confirmed 12/07/24] Montelukast Sodium 10 mg [Singulair 10 MG] 10 mg PO DAILY 11/18/24 [History Confirmed 12/07/24] Pantoprazole 20 mg [Protonix 20MG Tablet] 20 mg PO BID 11/18/24 [History Confirmed 12/07/24] Potassium Chloride Tab* [Klor Con] 10 meq PO DAILY 11/18/24 [History Confirmed 12/07/24] Pregabalin 50 mg [Lyrica 50MG] 50 mg PO DAILY 11/18/24 [History Confirmed 12/07/24] Rosuvastatin Calcium 5 mg PO DAILY 11/18/24 [History Confirmed 12/07/24] Tamsulosin HCl [Flomax] 0.4 mg PO HS 11/18/24 [History Confirmed 12/07/24] calcitrioL [Calcitriol] 0.5 mcg PO DAILY 11/18/24 [History Confirmed 12/07/24] Magnesium Hydroxide 30 ml [Milk of Magnesia 30 ml] 30 ml PO DAILY PRN 0 12/07/24 [History Confirmed 12/07/24] Warfarin Sodium 2 mg [Coumadin 2 MG] 2 mg PO DAILY 12/07/24 [History Confirmed 12/07/24] Zinc Oxide Ointment 30 gm 30 gm TP DAILY PRN 12/07/24 [History Confirmed 12/07/24] Allergies/Adverse Reactions: Allergies Allergy/AdvReac Type Severity Reaction Status Date / Time albuterol Allergy Intermediate Swelling Verified 11/18/24 15:57 of Tongue and Lips propranolol [From Inderal LA] Allergy Intermediate Verified 11/18/24 15:57 levofloxacin [From Levaquin] Allergy Unknown Verified 11/18/24 15:57 clonazepam [From Klonopin] Allergy Tightness Verified 11/18/24 15:57 of Throat metoclopramide [From Reglan] Allergy Verified 11/18/24 15:57 propranolol HCl Allergy Swelling Verified 11/18/24 15:57 [From Inderal LA] of Tongue and Lips [id number] Reductase Allergy Wheezing Verified 11/18/24 15:57 Inhibitor Sulfa (Sulfonamide Allergy Swelling Verified 11/18/24 15:57 Antibiotics) of Tongue and Lips terfenadine Allergy Verified 11/18/24 15:57 venom-honey bee Allergy Hives Verified 11/18/24 15:57 [bee venom (honey bee)] wheat Allergy Verified 11/18/24 15:57 zanamivir Allergy Swelling Verified 11/18/24 15:57 [From Relenza Diskhaler] of Tongue and Lips cilostazol [From Pletal] AdvReac Severe Swelling Verified 11/18/24 15:57 of Tongue and Lips ticagrelor [From Brilinta] AdvReac Severe Swelling Verified 11/18/24 15:57 of Tongue and Lips - Past Medical History Past Medical History: Yes Neurological History: TIA, Peripheral Neuropathy ENT History: Other Cardiac History: Arrhythmia, Congestive Heart Failure, High Cholesterol, Hypertension, Myocardial Infarction ([place]) Respiratory History: CHF, COPD Endocrine Medical History: Diabetes Type II, Hypothyroidism Musculoskelatal History: No Pertinent History GI Medical History: Other, GERD History: No Pertinent History Pyscho-Social History: Anxiety Reproductive Disorders: Breast Cancer Comment: right eye retinal scratch - Past Surgical History Past Surgical History: Yes Neuro Surgical History: No Pertinent History Cardiac History: Other Respiratory Surgery: No Pertinent History GI Surgical History: Hernia Repair Genitourinary Surgical Hx: No Pertinent History Musculskeletal Surgical Hx: No Pertinent History Female Surgical History: Mastectomy, Lumpectomy Other Surgical History: left mastectomy 1993, right lumpectomy, right thyroid removed, left thyroid removed with goiter, pubic mass, left knee scope, valve replacement Significant Family History: no pertinent family hx - Social History Smoking Status: Never smoker Exposure to second hand smoke: No Alcohol: None Drug Use: none - Social Determinants of Health Will the patient participate in the screening: Unable to obtain Do you worry about a steady place to live?: No In the past 12 months,have you had to go without utilities?: No Have you or anyone in your house had to go without enough: No Transportation Issues: No Has anyone in your support network made you feel unsafe?: No Does the patient want assistance with any of the above?: No Comment: Lives at [facility] - Physical Exam Vital Signs: Vital Signs - 24 hr Temp Pulse Resp BP BP Pulse Ox 12/07/24 15:01 99.9 F 108 H 16 149/75 98 12/07/24 14:36 98 12/07/24 14:00 85 25 H 165/102 97 12/07/24 13:45 87 25 H 175/95 96 12/07/24 13:30 87 22 175/108 95 12/07/24 13:15 85 25 H 164/96 96 12/07/24 13:00 106 H 29 H 164/119 92 L 12/07/24 12:45 98 H 29 H 189/110 98 12/07/24 12:30 87 25 H 177/120 98 12/07/24 12:15 95 H 23 204/109 94 L 12/07/24 12:00 100 H 24 194/106 97 12/07/24 11:45 91 H 25 H 174/106 96 12/07/24 11:34 102 H 25 H 195/102 98 12/07/24 11:30 96 H 24 93 L 12/07/24 11:20 100 H 28 H 98 12/07/24 11:10 94 H 30 H 97 12/07/24 11:00 97 H 29 H 12/07/24 10:50 102 H 28 H 12/07/24 10:46 93 H 26 H 12/07/24 09:55 102.2 F 106 H 26 H 160/100 98 General Appearance: no apparent distress, alert Neurologic Exam: alert, oriented x 3, cooperative, normal mood/affect, nml cerebellar function, nml station & gait, sensation nml, confusion, motor weakness, No motor deficits Eye Exam: PERRL/EOMI, eyes nml inspection Ears, Nose, Throat Exam: normal ENT inspection, TMs normal, pharynx normal, moist mucous membranes Neck Exam: normal inspection, non-tender, supple, full range of motion Respiratory Exam: respiratory distress, accessory muscle use, wheezing Cardiovascular Exam: normal heart sounds, normal peripheral pulses, irregular, edema Gastrointestinal/Abdomen Exam: soft, normal bowel sounds, No tenderness, No mass Back Exam: normal inspection, normal range of motion, No CVA tenderness, No vertebral tenderness Extremity Exam: normal inspection, normal range of motion, pelvis stable Skin Exam: normal color, warm, dry, No rash Lymphatic Exam: No adenopathy Results - Labs Lab/Micro Results: Lab Results-Last 24 Hours 12/07/24 12/07/24 12/07/24 Range/Units 10:11 10:11 10:12 WBC (3.98-10.04) x10^3/uL RBC (3.93-5.22) x10^6/uL Hgb (11.2-15.7) g/dL Hct (34.1-44.9) % MCV (79.4-94.8) fL MCH (25.6-32.2) pg MCHC (32.2-35.5) g/dL RDW (11.7-14.4) % Plt Count (182-369) x10^3/uL MPV (9.4-12.3) fL Gran % (34.0-71.1) % Immature Gran % (Auto) (0.001-0.429) % Nucleat RBC Rel Count (0.00-0.2) % Eos # (Auto) (0.04-0.36) x10^3/uL Immature Gran # (Auto) (0.001-0.031) x10^3u/L Absolute Lymphs (auto) (1.18-3.74) x10^3/uL Absolute Monos (auto) (0.24-0.86) x10^3/uL Absolute Nucleated RBC (0.00-0.012) x10^3u/L Lymphocytes % (19.3-51.7) % Monocytes % (4.7-12.5) % Eosinophils % (0.7-5.8) % Basophils % (0.1-1.2) % Absolute Granulocytes (1.56-6.13) x10^3/uL Basophils # (0.01-0.08) x10^3/uL PT (9.4-12.5) SECONDS INR (0.8-3.0) APTT (25.1-36.5) SECONDS pO2/FiO2 Ratio 21.0 % VBG pH 7.60 H* (7.32-7.42) VBG pCO2 at Pat Temp 24 L (42-55) mm/Hg VBG pO2 at Pat Temp 85 H (25-40) mm/Hg VBG HCO3 23.6 (22-28) meq/L VBG O2 Sat (Kathy) 98.0 (95-100) VBG Base Excess 2.8 H (-2.0-2.0) VBG Hemoglobin 10.4 VBG Carboxyhemoglobin 3.2 (0.0-6.9) % T HGB POC Potassium 4.4 (3.5-5.1) Sodium (135-145) mmol/L Potassium (3.5-5.1) mmol/L Chloride (98-107) mmol/L Carbon Dioxide (22-30) mmol/L Anion Gap (5-15) MEQ/L BUN (7-17) mg/dL Creatinine (0.52-1.04) mg/dL Estimated GFR ML/MIN Glucose (74-106) mg/dL POC Glucometer (74 to 106) mg/dL Lactic Acid 1.4 (0.4-2.0) Calcium (8.4-10.2) mg/dL Total Bilirubin (0.2-1.3) mg/dL AST (14-36) U/L ALT (0-35) U/L Alkaline Phosphatase (38-126) U/L NT-Pro-B Natriuret Pep 26875 (<300) pg/mL Serum Total Protein (6.3-8.2) g/dL Albumin (3.5-5.0) g/dL Urine Color (Yellow) Urine Appearance (Clear) Urine pH (4.6-8.0) Ur Specific Calvert (1.005-1.030) Urine Protein (Negative) Urine Glucose (UA) (Negative) mg/dL Urine Ketones (Negative) Urine Blood (Negative) Urine Nitrite (Negative) Urine Bilirubin (Negative) Urine Urobilinogen (0.2) mg/dL Ur Leukocyte Esterase (Negative) U Hyaline Cast (Auto) (0-2) /LPF Urine Microscopic RBC (0-5) /HPF Urine Microscopic WBC (0-5) /HPF Ur Epithelial Cells (None Seen) /HPF Urine Bacteria (None Seen) /HPF Urine Culture Reflexed (NO) Slides for Path Review 12/07/24 12/07/24 12/07/24 Range/Units 10:38 10:38 11:00 WBC 15.4 H (3.98-10.04) x10^3/uL RBC 3.40 L (3.93-5.22) x10^6/uL Hgb 10.1 L (11.2-15.7) g/dL Hct 31.7 L (34.1-44.9) % MCV 93.2 (79.4-94.8) fL MCH 29.7 (25.6-32.2) pg MCHC 31.9 L (32.2-35.5) g/dL RDW 13.4 (11.7-14.4) % Plt Count 352 (182-369) x10^3/uL MPV 11.4 (9.4-12.3) fL Gran % 89.5 H (34.0-71.1) % Immature Gran % (Auto) 0.6 H (0.001-0.429) % Nucleat RBC Rel Count 0.0 (0.00-0.2) % Eos # (Auto) 0 L (0.04-0.36) x10^3/uL Immature Gran # (Auto) 0.09 H (0.001-0.031) x10^3u/L Absolute Lymphs (auto) 0.51 L (1.18-3.74) x10^3/uL Absolute Monos (auto) 0.94 H (0.24-0.86) x10^3/uL Absolute Nucleated RBC 0.00 (0.00-0.012) x10^3u/L Lymphocytes % 3.3 L (19.3-51.7) % Monocytes % 6.1 (4.7-12.5) % Eosinophils % 0.0 L (0.7-5.8) % Basophils % 0.5 (0.1-1.2) % Absolute Granulocytes 13.82 H (1.56-6.13) x10^3/uL Basophils # 0.08 (0.01-0.08) x10^3/uL PT 32.4 H (9.4-12.5) SECONDS INR 3.21 H (0.8-3.0) APTT 40.2 H (25.1-36.5) SECONDS pO2/FiO2 Ratio % VBG pH (7.32-7.42) VBG pCO2 at Pat Temp (42-55) mm/Hg VBG pO2 at Pat Temp (25-40) mm/Hg VBG HCO3 (22-28) meq/L VBG O2 Sat (Kathy) (95-100) VBG Base Excess (-2.0-2.0) VBG Hemoglobin VBG Carboxyhemoglobin (0.0-6.9) % T HGB POC Potassium (3.5-5.1) Sodium 142 (135-145) mmol/L Potassium 4.3 (3.5-5.1) mmol/L Chloride 101 (98-107) mmol/L Carbon Dioxide 20 L (22-30) mmol/L Anion Gap 25.5 H (5-15) MEQ/L BUN 38 H (7-17) mg/dL Creatinine 2.16 H (0.52-1.04) mg/dL Estimated GFR 22.7 ML/MIN Glucose 334 H (74-106) mg/dL POC Glucometer (74 to 106) mg/dL Lactic Acid (0.4-2.0) Calcium 7.9 L (8.4-10.2) mg/dL Total Bilirubin 0.90 (0.2-1.3) mg/dL AST 39 H (14-36) U/L ALT 39 H (0-35) U/L Alkaline Phosphatase 132 H (38-126) U/L NT-Pro-B Natriuret Pep (<300) pg/mL Serum Total Protein 7.7 (6.3-8.2) g/dL Albumin 4.4 (3.5-5.0) g/dL Urine Color (Yellow) Urine Appearance (Clear) Urine pH (4.6-8.0) Ur Specific Calvert (1.005-1.030) Urine Protein (Negative) Urine Glucose (UA) (Negative) mg/dL Urine Ketones (Negative) Urine Blood (Negative) Urine Nitrite (Negative) Urine Bilirubin (Negative) Urine Urobilinogen (0.2) mg/dL Ur Leukocyte Esterase (Negative) U Hyaline Cast (Auto) (0-2) /LPF Urine Microscopic RBC (0-5) /HPF Urine Microscopic WBC (0-5) /HPF Ur Epithelial Cells (None Seen) /HPF Urine Bacteria (None Seen) /HPF Urine Culture Reflexed (NO) Slides for Path Review YES 12/07/24 12/07/24 Range/Units 13:16 15:05 WBC (3.98-10.04) x10^3/uL RBC (3.93-5.22) x10^6/uL Hgb (11.2-15.7) g/dL Hct (34.1-44.9) % MCV (79.4-94.8) fL MCH (25.6-32.2) pg MCHC (32.2-35.5) g/dL RDW (11.7-14.4) % Plt Count (182-369) x10^3/uL MPV (9.4-12.3) fL Gran % (34.0-71.1) % Immature Gran % (Auto) (0.001-0.429) % Nucleat RBC Rel Count (0.00-0.2) % Eos # (Auto) (0.04-0.36) x10^3/uL Immature Gran # (Auto) (0.001-0.031) x10^3u/L Absolute Lymphs (auto) (1.18-3.74) x10^3/uL Absolute Monos (auto) (0.24-0.86) x10^3/uL Absolute Nucleated RBC (0.00-0.012) x10^3u/L Lymphocytes % (19.3-51.7) % Monocytes % (4.7-12.5) % Eosinophils % (0.7-5.8) % Basophils % (0.1-1.2) % Absolute Granulocytes (1.56-6.13) x10^3/uL Basophils # (0.01-0.08) x10^3/uL PT (9.4-12.5) SECONDS INR (0.8-3.0) APTT (25.1-36.5) SECONDS pO2/FiO2 Ratio % VBG pH (7.32-7.42) VBG pCO2 at Pat Temp (42-55) mm/Hg VBG pO2 at Pat Temp (25-40) mm/Hg VBG HCO3 (22-28) meq/L VBG O2 Sat (Kathy) (95-100) VBG Base Excess (-2.0-2.0) VBG Hemoglobin VBG Carboxyhemoglobin (0.0-6.9) % T HGB POC Potassium (3.5-5.1) Sodium (135-145) mmol/L Potassium (3.5-5.1) mmol/L Chloride (98-107) mmol/L Carbon Dioxide (22-30) mmol/L Anion Gap (5-15) MEQ/L BUN (7-17) mg/dL Creatinine (0.52-1.04) mg/dL Estimated GFR ML/MIN Glucose (74-106) mg/dL POC Glucometer 350 H (74 to 106) mg/dL Lactic Acid (0.4-2.0) Calcium (8.4-10.2) mg/dL Total Bilirubin (0.2-1.3) mg/dL AST (14-36) U/L ALT (0-35) U/L Alkaline Phosphatase (38-126) U/L NT-Pro-B Natriuret Pep (<300) pg/mL Serum Total Protein (6.3-8.2) g/dL Albumin (3.5-5.0) g/dL Urine Color Yellow (Yellow) Urine Appearance Clear (Clear) Urine pH 6.5 (4.6-8.0) Ur Specific Calvert 1.015 (1.005-1.030) Urine Protein 300 A (Negative) Urine Glucose (UA) >=1000 A (Negative) mg/dL Urine Ketones 15 A (Negative) Urine Blood Trace (Negative) Urine Nitrite Negative (Negative) Urine Bilirubin Negative (Negative) Urine Urobilinogen 0.2 (0.2) mg/dL Ur Leukocyte Esterase Trace A (Negative) U Hyaline Cast (Auto) NONE SEEN (0-2) /LPF Urine Microscopic RBC 3-5 (0-5) /HPF Urine Microscopic WBC 6-10 A (0-5) /HPF Ur Epithelial Cells None Seen (None Seen) /HPF Urine Bacteria None Seen (None Seen) /HPF Urine Culture Reflexed ORDERED SEPARATELY (NO) Slides for Path Review - Radiology Impressions Radiology Exams & Impressions: Radiology Procedures Category Date Time Status CHEST 1 VIEW (PORTABLE) Stat Exams 12/07/24 10:12 Completed Assessment/Plan (1) CHF (congestive heart failure) Current Visit: Yes Status: Acute Assessment & Plan: - As seen on CXR - Lasix IV 40 BID started - BNP 35045 - 10L O2 mask 98% - Coarse lung sounds - Place purewick - Strict I&O - EF 72%- Echo 11/06/23 IMPRESSION: 1. NORMAL CONTRACTILITY OF THE LEFT VENTRICLE. 2. MILD CONCENTRIC LEFT VENTRICULAR HYPERTROPHY. 3. POSSIBLE IMPAIRED LEFT VENTRICULAR RELAXATION. 4. MILD TRICUSPID REGURGITATION. 5. NORMAL RIGHT VENTRICULAR SYSTOLIC PRESSURE. 6. MITRAL VALVULAR CALCIFICATION. Code(s): I50.9 - HEART FAILURE, UNSPECIFIED (2) COPD (chronic obstructive pulmonary disease) Current Visit: No Status: Chronic Assessment & Plan: - With acute exacerbation - Antibiotic, steriods, duonebs, inhaler - On 10L O2 mask - Using accesory muscles. - Tele - RT eval and treat- may need bipap - ABG reviewed and shows: Primary resp alkalosis, acute- with secondary metabolic alkalosis (3) Pneumonia Current Visit: Yes Status: Acute Assessment & Plan: - CXR reviewed - 10L oxygen - mask-98% - Baseline RA - CBC reviewed - Antibiotic, steroids, xoponex, Pulmicort - Tele - Sputum and BC x2 pending - Zosyn started IV as pt is allergic to Levaquin and there is too many interactions with azithromycin and her meds. Code(s): J18.9 - PNEUMONIA, UNSPECIFIED ORGANISM (4) Leukocytosis Current Visit: Yes Status: Acute Assessment & Plan: - WBC 15.4 - FLU/COVID/ RSV pending + Temp on admission and tylenol gave - CXR shows possible pneumonia- see plan above - BC x2 pending. - Procal pending Code(s): D72.829 - ELEVATED WHITE BLOOD CELL COUNT, UNSPECIFIED (5) Dyspnea Current Visit: No Status: Resolved Assessment & Plan: - 2:2 CHF, pneumonia - on 10L O2 mask 98% Code(s): R06.00 - DYSPNEA, UNSPECIFIED (6) HTN (hypertension) Current Visit: No Status: Chronic Assessment & Plan: - BP stable - Continue home meds. 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 (10) Type II diabetes mellitus Current Visit: No Status: Chronic Qualifiers: Diabetes mellitus long term care social worker insulin use: with usp use Assessment & Plan: - Accuchecks AC/HS - Cntinue home dose of linsulin - A1C - Carb consistent diet (11) Vitamin D deficiency Current Visit: No Status: Chronic Assessment & Plan: - Vitamin D daily PO Code(s): E55.9 - VITAMIN D DEFICIENCY, UNSPECIFIED (12) Afib Current Visit: No Status: Chronic Assessment & Plan: - Tele - Continue home warfarin and metoprolol Code(s): I48.91 - UNSPECIFIED ATRIAL FIBRILLATION (13) CKD (chronic kidney disease) Current Visit: Yes Status: Chronic Assessment & Plan: - At baseline renal function VTE: Coumadin PPI: Protonix Next of KIN: Child- Letty Dumont D/C plan: 2-3 days Code status: Full Code(s): N18.9 - CHRONIC KIDNEY DISEASE, UNSPECIFIED Telemedicine Encounter - Telemedicine Encounter Telemedicine Encounter: "The entirety of this encounter was performed via Telemedicine" This visit was performed using real-time audio and video connection between my location and thepatients locationwith the assistance of a surrogateat the patients location. Written or verbal consent was obtained from the patient/guardian to perform this visit usingsynchronoustelemedicine technology. Any patient questions regarding the telemedicine interaction were answered.
[2024-12-07] MEDS ORDERED: TYLENOL 325 MG PO PRN ×2 (16:08→17:15)
[2024-12-07] MEDS ORDERED: Dulcolax 10 MG SUPP RC PRN (16:08)
[2024-12-07] MEDS ORDERED: IMODIUM 2 MG PO PRN ×2 (16:08→16:37)
[2024-12-07] MEDS ORDERED: ZINC OXIDE OINTMENT 30 GM TP PRN (16:08)
[2024-12-07] MEDS ORDERED: MILK OF MAGNESIA 30 ML PO PRN (16:08)
[2024-12-07] MEDS ORDERED: Xopenex 1.25 MG/0.5 ML UD NEBULE IH PRN (16:16)
[2024-12-07] MEDS: Lasix 40 MG/4 ML IV SCH (16:18)
[2024-12-07] MEDS ORDERED: MEDICATION INTERVENTION MC SCH ×2 (17:00)
[2024-12-07] MEDS: HUMALOG SQ PRN (17:30)
[2024-12-07] MEDS: HUMALOG SQ SCH (17:30)
[2024-12-07] MEDS: Tums EX 750 MG PO SCH (17:32)
[2024-12-07] MEDS ORDERED: Piperacillin/Tazobactam 2.25 GM 2.25 GM in Sodium Chloride 0.9% 100 ML IV SCH (18:00)
[2024-12-07] MEDS ORDERED: PIPERACILLIN/TAZOBACTAM 4.5 GM in Sodium Chloride 0.9% 100 ML IV SCH (18:00)
[2024-12-07] MEDS ORDERED: Sodium Chloride 3 ML UD NEBULES IH ONE (18:50)
[2024-12-07] MEDS: PULMICORT 0.5 MG/2 ML RESPULES IH SCH (19:07)
[2024-12-07] MEDS: PIPERACILLIN/TAZOBACTAM 3.375 GM in Sodium Chloride 0.9% 100 ML IV SCH (19:47)
[2024-12-07] MEDS ORDERED: CRANBERRY FRUIT EXTRACT 250 MG PO SCH (22:00)
[2024-12-07] MEDS ORDERED: NON-FORMULARY ITEM (Metoprolol Tartrate [Lopressor] 100 MG Tablet) PO SCH (22:00)
[2024-12-07] MEDS: MAG-OX 400 PO SCH (22:13)
[2024-12-07] MEDS: Pepcid 20 MG PO SCH (22:13)
[2024-12-07] MEDS: Lantus Insulin SQ SCH (22:13)
[2024-12-07] MEDS: MELATONIN PO SCH (22:13)
[2024-12-07] MEDS: Multaq 400 MG PO SCH (22:14)
[2024-12-07] MEDS: Lopressor 50 MG PO SCH (22:14)
[2024-12-07] MEDS: Protonix 20MG Tablet PO SCH (22:14)
[2024-12-07] MEDS: Flomax 0.4 MG PO SCH (22:14)
[2024-12-07] MEDS: FEOSOL 325 MG PO SCH (22:14)
[2024-12-07] MEDS: CLARITIN 10 MG PO SCH (22:14)
[2024-12-07] MEDS: BUSPAR 5 MG PO SCH (22:14)
[2024-12-08 06:39] LABS: Mean Cell Volume 90.9 fL (79.4-94.8); Mean Corpuscular Hemoglobin 29.5 pg (25.6-32.2); Mean Corpuscular Hgb Concent. 32.5 g/dL (32.2-35.5); Mean Platelet Volume 11.2 fL (9.4-12.3); Platelet Count 282 x10^3/uL (182-369); Red Blood Count 2.64 x10^6/uL (3.93-5.22); Red Cell Distribution Width 13.2 % (11.7-14.4); White Blood Count 6.9 x10^3/uL (3.98-10.04)
[2024-12-08 06:53] LABS: INR 3.79 (0.8-3.0); PROTIME 37.9 SECONDS (9.4-12.5)
[2024-12-08 07:01] LABS: ALBUMIN 3.4 g/dL (3.5-5.0); ANION GAP 16.9 MEQ/L (5-15); BILIRUBIN,TOTAL 0.6 mg/dL (0.2-1.3); Calcium 7.1 mg/dL (8.4-10.2); Creatinine 1 2.23 mg/dL (0.52-1.04); EST GLOMERULAR FILTRATION RATE 21.9 ML/MIN; Potassium 3.6 mmol/L (3.5-5.1); Total Protein 6.6 g/dL (6.3-8.2)
[2024-12-08 07:20] LABS: Hemoglobin 7.8 g/dL (11.2-15.7)
[2024-12-08] MEDS ORDERED: Glutose 15 GM ORAL GEL PO PRN (07:38)
[2024-12-08] MEDS: ZITHROMAX IV*** 500 MG in Sodium Chloride 0.9% 250 ML 250 ML IV SCH (07:40)
[2024-12-08] MEDS: D50W 50 ml Abboject IV PRN (07:59)
[2024-12-08] MEDS: PHARMACY RENAL DOSING MC ONE (08:36)
[2024-12-08] MEDS: HUMALOG SQ SCH (08:37)
[2024-12-08] MEDS: Klor Con PO SCH (08:54)
[2024-12-08] MEDS: Lyrica 50MG PO SCH (08:55)
[2024-12-08] MEDS: Acidophilus TABLET PO SCH (08:55)
[2024-12-08] MEDS: SYNTHROID 100 MCG PO SCH (08:57)
[2024-12-08] MEDS: Singulair 10 MG PO SCH (08:57)
[2024-12-08] MEDS: SYNTHROID 75 MCG PO SCH (08:57)
[2024-12-08] MEDS: FOLATE 1 MG PO SCH (08:58)
[2024-12-08] MEDS: Vitamin B-12 500 MCG PO SCH (08:58)
[2024-12-08] MEDS: NORVASC 5 MG PO SCH (09:01)
--- NOTE | 2024-12-08 09:52 | PCM.NOTE ---
Date and Time: 12/08/24 0946 Subjective Assessment: 12/07/24 Ms. Magana is a 79-year-old female and a resident of [facility], with a complex past medical history including coronary artery disease (CAD), pulmonary embolism/deep vein thrombosis (PE/DVT), anxiety, celiac disease, gastroesophageal reflux disease (GERD), hypertension, hypothyroidism, chronic kidney disease (CKD), congestive heart failure (CHF), chronic obstructive pulmonary disease (COPD), peripheral vascular disease (PVD), atrial fibrillation, ESBL infection, cerebrovascular accident (CVA), hyperlipidemia, anemia, depression, breast cancer, and type 2 diabetes mellitus. She presented to the emergency department today with complaints of dyspnea and fever, which have been progressively worsening over the past couple of days. She also reports significant fatigue. [facility] staff noted that the patient appeared confused and exhibited an altered level of consciousness, prompting her transfer. On evaluation, she is alert and oriented but intermittently confused and not behaving like her usual self, per staff familiar with her baseline. She has experienced shortness of breath for the past 24 hours and is currently requiring 10 liters of oxygen via oxymask, maintaining a saturation of 98%. She is being admitted for management of a COPD and CHF exacerbation, along with suspected pneumonia. Treatment has been initiated with antibiotics, steroids, Xopenex, Pulmicort, and Lasix. The patient denies chest pain, abdominal pain, nausea, vomiting, or diarrhea. Notably, she is using accessory abdominal muscles to assist with breathing. 12/08/24 Pt resting in bed. She states she is feeling much better today. She has been weaned off the O2 and is now RA 98%. She cannot find her glasses and the half-way was called. The nurse at the nursing states pt has been coughing even when drinking fluids and feels she may be aspirating. Will order a barium swallow for further eval Tuesday. Continue Lasix for CHF. Continue antibiotics, Steroids, Xopenex, and Pulmicort for COPD exacerbation and pneumonia. Glucose 52 this AM and hypoglycemia protocol started. Pt was able to eat her breakfast w/o any concerns. She denies CP, SOB, abd. pain, N/V/D. - Review of Systems Constitutional: Weakness, No Fever, No Chills Eyes: No Symptoms Ears, Nose, & Throat: No Symptoms Respiratory: No Cough, No Short Of Breath Cardiac: Edema, No Chest Pain, No Syncope Abdominal/Gastrointestinal: No Abdominal Pain, No Nausea, No Vomiting, No Diarrhea Genitourinary Symptoms: No Dysuria Musculoskeletal: No Back Pain, No Neck Pain Skin: No Rash Neurological: No Dizziness, No Focal Weakness, No Sensory Changes Psychological: No Symptoms Endocrine: No Symptoms Hematologic/Lymphatic: No Symptoms Immunological/Allergic: No Symptoms Objective Exam General Appearance: no apparent distress, alert Neurologic Exam: alert, oriented x 3, cooperative, normal mood/affect, nml cerebellar function, sensation nml, No motor deficits Skin Exam: normal color, warm, dry Eye Exam: PERRL, EOMI, eyes nml inspection Ears, Nose, Throat Exam: normal ENT inspection, pharynx normal, moist mucous membranes Neck Exam: normal inspection, non-tender, supple, full range of motion Respiratory Exam: normal breath sounds, lungs clear, No respiratory distress Cardiovascular Exam: regular rate/rhythm, normal heart sounds, edema Gastrointestinal/Abdomen Exam: soft, No tenderness, No mass Extremity Exam: normal inspection, normal range of motion Back Exam: normal inspection, normal range of motion, No CVA tenderness, No vertebral tenderness Pelvic Exam: deferred Rectal Exam: deferred Objective Data Vital Signs: Vital Signs - 24 hr Temp Pulse Resp BP BP Pulse Ox 12/08/24 07:00 97.3 F 55 L 18 143/67 92 L 12/08/24 06:31 63 16 98 12/08/24 03:00 97.7 F 54 L 16 127/60 97 12/07/24 23:00 97.9 F 60 15 120/60 95 12/07/24 19:09 86 18 99 12/07/24 19:01 98.6 F 88 17 139/73 99 12/07/24 17:34 99.9 F 108 H 16 149/75 98 12/07/24 17:28 108 H 20 99 12/07/24 15:01 99.9 F 108 H 16 149/75 98 12/07/24 14:36 98 12/07/24 14:00 85 25 H 165/102 97 12/07/24 13:45 87 25 H 175/95 96 12/07/24 13:30 87 22 175/108 95 12/07/24 13:15 85 25 H 164/96 96 12/07/24 13:00 106 H 29 H 164/119 92 L 12/07/24 12:45 98 H 29 H 189/110 98 12/07/24 12:30 87 25 H 177/120 98 12/07/24 12:15 95 H 23 204/109 94 L 12/07/24 12:00 100 H 24 194/106 97 12/07/24 11:45 91 H 25 H 174/106 96 12/07/24 11:34 102 H 25 H 195/102 98 12/07/24 11:30 96 H 24 93 L 12/07/24 11:20 100 H 28 H 98 12/07/24 11:10 94 H 30 H 97 12/07/24 11:00 97 H 29 H 12/07/24 10:50 102 H 28 H 12/07/24 10:46 93 H 26 H 12/07/24 09:55 102.2 F 106 H 26 H 160/100 98 Pain Assessment - Last Documented Pain Intensity 0 Intake and Output: Intake & Output 12/05/24 12/06/24 12/07/24 12/08/24 11:59 11:59 11:59 11:59 Intake Total 720 Output Total 900 Balance -180 Weight 76.3 kg 77 kg Lab Results: Lab Results-Last 24 Hours 12/07/24 12/07/24 12/07/24 Range/Units 10:11 10:11 10:11 WBC (3.98-10.04) x10^3/uL RBC (3.93-5.22) x10^6/uL Hgb (11.2-15.7) g/dL Hct (34.1-44.9) % MCV (79.4-94.8) fL MCH (25.6-32.2) pg MCHC (32.2-35.5) g/dL RDW (11.7-14.4) % Plt Count (182-369) x10^3/uL MPV (9.4-12.3) fL Gran % (34.0-71.1) % Immature Gran % (Auto) (0.001-0.429) % Nucleat RBC Rel Count (0.00-0.2) % Eos # (Auto) (0.04-0.36) x10^3/uL Immature Gran # (Auto) (0.001-0.031) x10^3u/L Absolute Lymphs (auto) (1.18-3.74) x10^3/uL Absolute Monos (auto) (0.24-0.86) x10^3/uL Absolute Nucleated RBC (0.00-0.012) x10^3u/L Lymphocytes % (19.3-51.7) % Monocytes % (4.7-12.5) % Eosinophils % (0.7-5.8) % Basophils % (0.1-1.2) % Absolute Granulocytes (1.56-6.13) x10^3/uL Basophils # (0.01-0.08) x10^3/uL PT (9.4-12.5) SECONDS INR (0.8-3.0) APTT (25.1-36.5) SECONDS pO2/FiO2 Ratio % VBG pH (7.32-7.42) VBG pCO2 at Pat Temp (42-55) mm/Hg VBG pO2 at Pat Temp (25-40) mm/Hg VBG HCO3 (22-28) meq/L VBG O2 Sat (Kathy) (95-100) VBG Base Excess (-2.0-2.0) VBG Hemoglobin VBG Carboxyhemoglobin (0.0-6.9) % T HGB POC Potassium (3.5-5.1) Sodium (135-145) mmol/L Potassium (3.5-5.1) mmol/L Chloride (98-107) mmol/L Carbon Dioxide (22-30) mmol/L Anion Gap (5-15) MEQ/L BUN (7-17) mg/dL Creatinine (0.52-1.04) mg/dL Estimated GFR ML/MIN Glucose (74-106) mg/dL POC Glucometer (74 to 106) mg/dL Lactic Acid 1.4 (0.4-2.0) Calcium (8.4-10.2) mg/dL Total Bilirubin (0.2-1.3) mg/dL AST (14-36) U/L ALT (0-35) U/L Alkaline Phosphatase (38-126) U/L NT-Pro-B Natriuret Pep 21869 (<300) pg/mL Serum Total Protein (6.3-8.2) g/dL Albumin (3.5-5.0) g/dL Prealbumin (17.6-36.0) mg/dL Procalcitonin 1.200 H (0.030-0.080) ng/mL Urine Color (Yellow) Urine Appearance (Clear) Urine pH (4.6-8.0) Ur Specific [place] (1.005-1.030) Urine Protein (Negative) Urine Glucose (UA) (Negative) mg/dL Urine Ketones (Negative) Urine Blood (Negative) Urine Nitrite (Negative) Urine Bilirubin (Negative) Urine Urobilinogen (0.2) mg/dL Ur Leukocyte Esterase (Negative) U Hyaline Cast (Auto) (0-2) /LPF Urine Microscopic RBC (0-5) /HPF Urine Microscopic WBC (0-5) /HPF Ur Epithelial Cells (None Seen) /HPF Urine Bacteria (None Seen) /HPF Urine Culture Reflexed (NO) Slides for Path Review 12/07/24 12/07/24 12/07/24 Range/Units 10:12 10:38 10:38 WBC 15.4 H (3.98-10.04) x10^3/uL RBC 3.40 L (3.93-5.22) x10^6/uL Hgb 10.1 L (11.2-15.7) g/dL Hct 31.7 L (34.1-44.9) % MCV 93.2 (79.4-94.8) fL MCH 29.7 (25.6-32.2) pg MCHC 31.9 L (32.2-35.5) g/dL RDW 13.4 (11.7-14.4) % Plt Count 352 (182-369) x10^3/uL MPV 11.4 (9.4-12.3) fL Gran % 89.5 H (34.0-71.1) % Immature Gran % (Auto) 0.6 H (0.001-0.429) % Nucleat RBC Rel Count 0.0 (0.00-0.2) % Eos # (Auto) 0 L (0.04-0.36) x10^3/uL Immature Gran # (Auto) 0.09 H (0.001-0.031) x10^3u/L Absolute Lymphs (auto) 0.51 L (1.18-3.74) x10^3/uL Absolute Monos (auto) 0.94 H (0.24-0.86) x10^3/uL Absolute Nucleated RBC 0.00 (0.00-0.012) x10^3u/L Lymphocytes % 3.3 L (19.3-51.7) % Monocytes % 6.1 (4.7-12.5) % Eosinophils % 0.0 L (0.7-5.8) % Basophils % 0.5 (0.1-1.2) % Absolute Granulocytes 13.82 H (1.56-6.13) x10^3/uL Basophils # 0.08 (0.01-0.08) x10^3/uL PT (9.4-12.5) SECONDS INR (0.8-3.0) APTT (25.1-36.5) SECONDS pO2/FiO2 Ratio 21.0 % VBG pH 7.60 H* (7.32-7.42) VBG pCO2 at Pat Temp 24 L (42-55) mm/Hg VBG pO2 at Pat Temp 85 H (25-40) mm/Hg VBG HCO3 23.6 (22-28) meq/L VBG O2 Sat (Kathy) 98.0 (95-100) VBG Base Excess 2.8 H (-2.0-2.0) VBG Hemoglobin 10.4 VBG Carboxyhemoglobin 3.2 (0.0-6.9) % T HGB POC Potassium 4.4 (3.5-5.1) Sodium 142 (135-145) mmol/L Potassium 4.3 (3.5-5.1) mmol/L Chloride 101 (98-107) mmol/L Carbon Dioxide 20 L (22-30) mmol/L Anion Gap 25.5 H (5-15) MEQ/L BUN 38 H (7-17) mg/dL Creatinine 2.16 H (0.52-1.04) mg/dL Estimated GFR 22.7 ML/MIN Glucose 334 H (74-106) mg/dL POC Glucometer (74 to 106) mg/dL Lactic Acid (0.4-2.0) Calcium 7.9 L (8.4-10.2) mg/dL Total Bilirubin 0.90 (0.2-1.3) mg/dL AST 39 H (14-36) U/L ALT 39 H (0-35) U/L Alkaline Phosphatase 132 H (38-126) U/L NT-Pro-B Natriuret Pep (<300) pg/mL Serum Total Protein 7.7 (6.3-8.2) g/dL Albumin 4.4 (3.5-5.0) g/dL Prealbumin (17.6-36.0) mg/dL Procalcitonin (0.030-0.080) ng/mL Urine Color (Yellow) Urine Appearance (Clear) Urine pH (4.6-8.0) Ur Specific [place] (1.005-1.030) Urine Protein (Negative) Urine Glucose (UA) (Negative) mg/dL Urine Ketones (Negative) Urine Blood (Negative) Urine Nitrite (Negative) Urine Bilirubin (Negative) Urine Urobilinogen (0.2) mg/dL Ur Leukocyte Esterase (Negative) U Hyaline Cast (Auto) (0-2) /LPF Urine Microscopic RBC (0-5) /HPF Urine Microscopic WBC (0-5) /HPF Ur Epithelial Cells (None Seen) /HPF Urine Bacteria (None Seen) /HPF Urine Culture Reflexed (NO) Slides for Path Review YES 12/07/24 12/07/24 12/07/24 Range/Units 11:00 13:16 15:05 WBC (3.98-10.04) x10^3/uL RBC (3.93-5.22) x10^6/uL Hgb (11.2-15.7) g/dL Hct (34.1-44.9) % MCV (79.4-94.8) fL MCH (25.6-32.2) pg MCHC (32.2-35.5) g/dL RDW (11.7-14.4) % Plt Count (182-369) x10^3/uL MPV (9.4-12.3) fL Gran % (34.0-71.1) % Immature Gran % (Auto) (0.001-0.429) % Nucleat RBC Rel Count (0.00-0.2) % Eos # (Auto) (0.04-0.36) x10^3/uL Immature Gran # (Auto) (0.001-0.031) x10^3u/L Absolute Lymphs (auto) (1.18-3.74) x10^3/uL Absolute Monos (auto) (0.24-0.86) x10^3/uL Absolute Nucleated RBC (0.00-0.012) x10^3u/L Lymphocytes % (19.3-51.7) % Monocytes % (4.7-12.5) % Eosinophils % (0.7-5.8) % Basophils % (0.1-1.2) % Absolute Granulocytes (1.56-6.13) x10^3/uL Basophils # (0.01-0.08) x10^3/uL PT 32.4 H (9.4-12.5) SECONDS INR 3.21 H (0.8-3.0) APTT 40.2 H (25.1-36.5) SECONDS pO2/FiO2 Ratio % VBG pH (7.32-7.42) VBG pCO2 at Pat Temp (42-55) mm/Hg VBG pO2 at Pat Temp (25-40) mm/Hg VBG HCO3 (22-28) meq/L VBG O2 Sat (Kathy) (95-100) VBG Base Excess (-2.0-2.0) VBG Hemoglobin VBG Carboxyhemoglobin (0.0-6.9) % T HGB POC Potassium (3.5-5.1) Sodium (135-145) mmol/L Potassium (3.5-5.1) mmol/L Chloride (98-107) mmol/L Carbon Dioxide (22-30) mmol/L Anion Gap (5-15) MEQ/L BUN (7-17) mg/dL Creatinine (0.52-1.04) mg/dL Estimated GFR ML/MIN Glucose (74-106) mg/dL POC Glucometer 350 H (74 to 106) mg/dL Lactic Acid (0.4-2.0) Calcium (8.4-10.2) mg/dL Total Bilirubin (0.2-1.3) mg/dL AST (14-36) U/L ALT (0-35) U/L Alkaline Phosphatase (38-126) U/L NT-Pro-B Natriuret Pep (<300) pg/mL Serum Total Protein (6.3-8.2) g/dL Albumin (3.5-5.0) g/dL Prealbumin (17.6-36.0) mg/dL Procalcitonin (0.030-0.080) ng/mL Urine Color Yellow (Yellow) Urine Appearance Clear (Clear) Urine pH 6.5 (4.6-8.0) Ur Specific [place] 1.015 (1.005-1.030) Urine Protein 300 A (Negative) Urine Glucose (UA) >=1000 A (Negative) mg/dL Urine Ketones 15 A (Negative) Urine Blood Trace (Negative) Urine Nitrite Negative (Negative) Urine Bilirubin Negative (Negative) Urine Urobilinogen 0.2 (0.2) mg/dL Ur Leukocyte Esterase Trace A (Negative) U Hyaline Cast (Auto) NONE SEEN (0-2) /LPF Urine Microscopic RBC 3-5 (0-5) /HPF Urine Microscopic WBC 6-10 A (0-5) /HPF Ur Epithelial Cells None Seen (None Seen) /HPF Urine Bacteria None Seen (None Seen) /HPF Urine Culture Reflexed ORDERED SEPARATELY (NO) Slides for Path Review 12/07/24 12/07/24 12/07/24 Range/Units 15:25 16:29 20:59 WBC (3.98-10.04) x10^3/uL RBC (3.93-5.22) x10^6/uL Hgb (11.2-15.7) g/dL Hct (34.1-44.9) % MCV (79.4-94.8) fL MCH (25.6-32.2) pg MCHC (32.2-35.5) g/dL RDW (11.7-14.4) % Plt Count (182-369) x10^3/uL MPV (9.4-12.3) fL Gran % (34.0-71.1) % Immature Gran % (Auto) (0.001-0.429) % Nucleat RBC Rel Count (0.00-0.2) % Eos # (Auto) (0.04-0.36) x10^3/uL Immature Gran # (Auto) (0.001-0.031) x10^3u/L Absolute Lymphs (auto) (1.18-3.74) x10^3/uL Absolute Monos (auto) (0.24-0.86) x10^3/uL Absolute Nucleated RBC (0.00-0.012) x10^3u/L Lymphocytes % (19.3-51.7) % Monocytes % (4.7-12.5) % Eosinophils % (0.7-5.8) % Basophils % (0.1-1.2) % Absolute Granulocytes (1.56-6.13) x10^3/uL Basophils # (0.01-0.08) x10^3/uL PT (9.4-12.5) SECONDS INR (0.8-3.0) APTT (25.1-36.5) SECONDS pO2/FiO2 Ratio % VBG pH (7.32-7.42) VBG pCO2 at Pat Temp (42-55) mm/Hg VBG pO2 at Pat Temp (25-40) mm/Hg VBG HCO3 (22-28) meq/L VBG O2 Sat (Kathy) (95-100) VBG Base Excess (-2.0-2.0) VBG Hemoglobin VBG Carboxyhemoglobin (0.0-6.9) % T HGB POC Potassium (3.5-5.1) Sodium (135-145) mmol/L Potassium (3.5-5.1) mmol/L Chloride (98-107) mmol/L Carbon Dioxide (22-30) mmol/L Anion Gap (5-15) MEQ/L BUN (7-17) mg/dL Creatinine (0.52-1.04) mg/dL Estimated GFR ML/MIN Glucose (74-106) mg/dL POC Glucometer 371 H 313 H (74 to 106) mg/dL Lactic Acid (0.4-2.0) Calcium (8.4-10.2) mg/dL Total Bilirubin (0.2-1.3) mg/dL AST (14-36) U/L ALT (0-35) U/L Alkaline Phosphatase (38-126) U/L NT-Pro-B Natriuret Pep (<300) pg/mL Serum Total Protein (6.3-8.2) g/dL Albumin (3.5-5.0) g/dL Prealbumin 19.39 (17.6-36.0) mg/dL Procalcitonin (0.030-0.080) ng/mL Urine Color (Yellow) Urine Appearance (Clear) Urine pH (4.6-8.0) Ur Specific [place] (1.005-1.030) Urine Protein (Negative) Urine Glucose (UA) (Negative) mg/dL Urine Ketones (Negative) Urine Blood (Negative) Urine Nitrite (Negative) Urine Bilirubin (Negative) Urine Urobilinogen (0.2) mg/dL Ur Leukocyte Esterase (Negative) U Hyaline Cast (Auto) (0-2) /LPF Urine Microscopic RBC (0-5) /HPF Urine Microscopic WBC (0-5) /HPF Ur Epithelial Cells (None Seen) /HPF Urine Bacteria (None Seen) /HPF Urine Culture Reflexed (NO) Slides for Path Review 12/08/24 12/08/24 12/08/24 Range/Units 06:25 06:25 06:25 WBC 6.9 (3.98-10.04) x10^3/uL RBC 2.64 L (3.93-5.22) x10^6/uL Hgb 7.8 L D (11.2-15.7) g/dL Hct 24.0 L (34.1-44.9) % MCV 90.9 (79.4-94.8) fL MCH 29.5 (25.6-32.2) pg MCHC 32.5 (32.2-35.5) g/dL RDW 13.2 (11.7-14.4) % Plt Count 282 (182-369) x10^3/uL MPV 11.2 (9.4-12.3) fL Gran % (34.0-71.1) % Immature Gran % (Auto) (0.001-0.429) % Nucleat RBC Rel Count (0.00-0.2) % Eos # (Auto) (0.04-0.36) x10^3/uL Immature Gran # (Auto) (0.001-0.031) x10^3u/L Absolute Lymphs (auto) (1.18-3.74) x10^3/uL Absolute Monos (auto) (0.24-0.86) x10^3/uL Absolute Nucleated RBC (0.00-0.012) x10^3u/L Lymphocytes % (19.3-51.7) % Monocytes % (4.7-12.5) % Eosinophils % (0.7-5.8) % Basophils % (0.1-1.2) % Absolute Granulocytes (1.56-6.13) x10^3/uL Basophils # (0.01-0.08) x10^3/uL PT 37.9 H (9.4-12.5) SECONDS INR 3.79 H (0.8-3.0) APTT (25.1-36.5) SECONDS pO2/FiO2 Ratio % VBG pH (7.32-7.42) VBG pCO2 at Pat Temp (42-55) mm/Hg VBG pO2 at Pat Temp (25-40) mm/Hg VBG HCO3 (22-28) meq/L VBG O2 Sat (Kathy) (95-100) VBG Base Excess (-2.0-2.0) VBG Hemoglobin VBG Carboxyhemoglobin (0.0-6.9) % T HGB POC Potassium (3.5-5.1) Sodium 140 (135-145) mmol/L Potassium 3.6 (3.5-5.1) mmol/L Chloride 103 (98-107) mmol/L Carbon Dioxide 24 (22-30) mmol/L Anion Gap 16.9 H (5-15) MEQ/L BUN 44 H (7-17) mg/dL Creatinine 2.23 H (0.52-1.04) mg/dL Estimated GFR 21.9 ML/MIN Glucose 52 L (74-106) mg/dL POC Glucometer (74 to 106) mg/dL Lactic Acid (0.4-2.0) Calcium 7.1 L (8.4-10.2) mg/dL Total Bilirubin 0.60 (0.2-1.3) mg/dL AST 21 (14-36) U/L ALT 22 (0-35) U/L Alkaline Phosphatase 76 (38-126) U/L NT-Pro-B Natriuret Pep (<300) pg/mL Serum Total Protein 6.6 (6.3-8.2) g/dL Albumin 3.4 L (3.5-5.0) g/dL Prealbumin (17.6-36.0) mg/dL Procalcitonin (0.030-0.080) ng/mL Urine Color (Yellow) Urine Appearance (Clear) Urine pH (4.6-8.0) Ur Specific [place] (1.005-1.030) Urine Protein (Negative) Urine Glucose (UA) (Negative) mg/dL Urine Ketones (Negative) Urine Blood (Negative) Urine Nitrite (Negative) Urine Bilirubin (Negative) Urine Urobilinogen (0.2) mg/dL Ur Leukocyte Esterase (Negative) U Hyaline Cast (Auto) (0-2) /LPF Urine Microscopic RBC (0-5) /HPF Urine Microscopic WBC (0-5) /HPF Ur Epithelial Cells (None Seen) /HPF Urine Bacteria (None Seen) /HPF Urine Culture Reflexed (NO) Slides for Path Review 12/08/24 12/08/24 Range/Units 07:44 08:39 WBC (3.98-10.04) x10^3/uL RBC (3.93-5.22) x10^6/uL Hgb (11.2-15.7) g/dL Hct (34.1-44.9) % MCV (79.4-94.8) fL MCH (25.6-32.2) pg MCHC (32.2-35.5) g/dL RDW (11.7-14.4) % Plt Count (182-369) x10^3/uL MPV (9.4-12.3) fL Gran % (34.0-71.1) % Immature Gran % (Auto) (0.001-0.429) % Nucleat RBC Rel Count (0.00-0.2) % Eos # (Auto) (0.04-0.36) x10^3/uL Immature Gran # (Auto) (0.001-0.031) x10^3u/L Absolute Lymphs (auto) (1.18-3.74) x10^3/uL Absolute Monos (auto) (0.24-0.86) x10^3/uL Absolute Nucleated RBC (0.00-0.012) x10^3u/L Lymphocytes % (19.3-51.7) % Monocytes % (4.7-12.5) % Eosinophils % (0.7-5.8) % Basophils % (0.1-1.2) % Absolute Granulocytes (1.56-6.13) x10^3/uL Basophils # (0.01-0.08) x10^3/uL PT (9.4-12.5) SECONDS INR (0.8-3.0) APTT (25.1-36.5) SECONDS pO2/FiO2 Ratio % VBG pH (7.32-7.42) VBG pCO2 at Pat Temp (42-55) mm/Hg VBG pO2 at Pat Temp (25-40) mm/Hg VBG HCO3 (22-28) meq/L VBG O2 Sat (Kathy) (95-100) VBG Base Excess (-2.0-2.0) VBG Hemoglobin VBG Carboxyhemoglobin (0.0-6.9) % T HGB POC Potassium (3.5-5.1) Sodium (135-145) mmol/L Potassium (3.5-5.1) mmol/L Chloride (98-107) mmol/L Carbon Dioxide (22-30) mmol/L Anion Gap (5-15) MEQ/L BUN (7-17) mg/dL Creatinine (0.52-1.04) mg/dL Estimated GFR ML/MIN Glucose (74-106) mg/dL POC Glucometer 53 L 116 H (74 to 106) mg/dL Lactic Acid (0.4-2.0) Calcium (8.4-10.2) mg/dL Total Bilirubin (0.2-1.3) mg/dL AST (14-36) U/L ALT (0-35) U/L Alkaline Phosphatase (38-126) U/L NT-Pro-B Natriuret Pep (<300) pg/mL Serum Total Protein (6.3-8.2) g/dL Albumin (3.5-5.0) g/dL Prealbumin (17.6-36.0) mg/dL Procalcitonin (0.030-0.080) ng/mL Urine Color (Yellow) Urine Appearance (Clear) Urine pH (4.6-8.0) Ur Specific [place] (1.005-1.030) Urine Protein (Negative) Urine Glucose (UA) (Negative) mg/dL Urine Ketones (Negative) Urine Blood (Negative) Urine Nitrite (Negative) Urine Bilirubin (Negative) Urine Urobilinogen (0.2) mg/dL Ur Leukocyte Esterase (Negative) U Hyaline Cast (Auto) (0-2) /LPF Urine Microscopic RBC (0-5) /HPF Urine Microscopic WBC (0-5) /HPF Ur Epithelial Cells (None Seen) /HPF Urine Bacteria (None Seen) /HPF Urine Culture Reflexed (NO) Slides for Path Review Radiology Exams: Radiology Procedures Category Date Time Status CHEST 1 VIEW (PORTABLE) Stat Exams 12/07/24 10:12 Completed Medications: Medications Generic Name Dose Route Start Last Admin Trade Name Freq PRN Reason Stop Dose Admin Acetaminophen 650 mg 12/07/24 15:01 Acetaminophen 650 Mg Supp.Rect VT 01/06/25 15:00 Q4H PRN PRN PAIN AND/OR FEVER Acetaminophen 650 mg 12/07/24 17:15 Acetaminophen 325 Mg Tablet PO 01/06/25 17:14 Q6H PRN PRN PAIN AND/OR FEVER Amlodipine Besylate 2.5 mg 12/08/24 10:00 12/08/24 09:01 Amlodipine Besylate 5 Mg Tablet PO 01/07/25 09:59 2.5 mg DAILY RAMON Administration Bisacodyl 10 mg 12/07/24 16:08 Bisacodyl 10 Mg Supp.Rect RC 01/06/25 16:07 DAILY PRN PRN CONSTIPATION Budesonide 0.5 mg 12/07/24 19:00 12/08/24 06:30 Budesonide 0.5 Mg/2 Ml Ampul.Neb. IH 01/06/25 18:59 Not Given BIDRT RAMON Buspirone HCl 10 mg 12/07/24 22:00 12/08/24 08:56 Buspirone Hcl 5 Mg Tablet PO 01/06/25 21:59 10 mg BID RAMON Administration Calcitriol 0.5 mcg 12/08/24 10:00 12/08/24 08:59 Calcitriol 0.25 Mcg Capsule PO 01/07/25 09:59 0.5 mcg DAILY RAMON Administration Calcium Carbonate/Glycine 750 mg 12/07/24 17:00 12/08/24 09:01 Calcium Carbonate 750 Mg 750 Mg Tab.Chew PO 01/06/25 16:59 750 mg QID RAMON Administration Cyanocobalamin 1,000 mcg 12/08/24 10:00 12/08/24 08:58 Cyanocobalamin 500 Mcg Tablet PO 01/07/25 09:59 1,000 mcg DAILY RAMON Administration Dextrose 25 ml 12/08/24 07:38 12/08/24 07:59 Dextrose 50%-Water 50 Ml Abboject IV 01/07/25 07:37 25 ml PRN PRN Administration HYPOGLYCEMIA Dronedarone 400 mg 12/07/24 22:00 12/08/24 08:57 Dronedarone Hydrochloride 400 Mg Tablet PO 01/06/25 21:59 400 mg BID RAMON Administration Ergocalciferol 50,000 unit 12/09/24 10:00 Ergocalciferol (Vitamin D2) 50,000 Unit Capsule PO 01/08/25 09:59 Q7D RAMON Famotidine 20 mg 12/07/24 22:00 12/08/24 08:58 Famotidine 20 Mg Tablet PO 01/06/25 21:59 20 mg BID RAMON Administration Ferrous Sulfate 325 mg 12/07/24 22:00 12/08/24 08:58 Ferrous Sulfate 325 Mg Tablet PO 01/06/25 21:59 325 mg BID RAMON Administration Folic Acid 1 mg 12/08/24 10:00 12/08/24 08:58 Folic Acid 1 Mg Tablet PO 01/07/25 09:59 1 mg DAILY RAMON Administration Furosemide 40 mg 12/07/24 15:24 12/08/24 08:57 Furosemide 40 Mg/4 Ml Vial IV 01/06/25 15:23 40 mg BID DIURETIC RAMON Administration Glucose 15 gm 12/08/24 07:38 Dextrose 15 Gm Gel PO 01/07/25 07:37 PRN PRN HYPOGLYCEMIA Piperacillin Sod/Tazobactam 100 mls @ 200 mls/hr 12/07/24 18:00 12/08/24 06:41 Sod 3.375 gm/ Sodium Chloride IV 12/10/24 17:59 200 mls/hr Q6HT RAMON Administration Insulin Glargine 22 unit 12/07/24 22:00 12/07/24 22:13 Insulin Glargine 1 Unit SQ 01/06/25 21:59 22 unit HS RAMON Administration Insulin Human Lispro 7 unit 12/07/24 17:00 12/07/24 17:30 Insulin Lispro 1 Unit SQ 01/06/25 16:59 7 unit DINNER RAMON Administration Insulin Human Lispro 15 unit 12/08/24 08:00 12/08/24 08:37 Insulin Lispro 1 Unit SQ 01/07/25 07:59 Not Given 0800,1200 RAMON Insulin Human Lispro 0 unit 12/08/24 07:41 Insulin Lispro 1 Unit SQ 01/07/25 07:40 UD PRN HYPERGLYCEMIA Lactobacillus Acidophilus 1 tab 12/08/24 10:00 12/08/24 08:55 Lactobacillus Acidophilus 1 Tab Tablet PO 01/07/25 09:59 1 tab DAILY RAMON Administration Levothyroxine Sodium 100 mcg 12/08/24 10:00 12/08/24 08:57 Levothyroxine Sodium 100 Mcg Tablet PO 01/07/25 09:59 100 mcg DAILY RAMON Administration Levothyroxine Sodium 75 mcg 12/08/24 10:00 12/08/24 08:57 Levothyroxine Sodium 75 Mcg Tablet PO 01/07/25 09:59 75 mcg DAILY RAMON Administration Loperamide HCl 0 mg 12/07/24 16:38 Loperamide Hcl 2 Mg Capsule PO 01/06/25 16:36 PRN PRN DIARRHEA Loratadine 10 mg 12/07/24 22:00 12/07/24 22:14 Loratadine 10 Mg Tablet PO 01/06/25 21:59 10 mg HS RAMON Administration Magnesium Hydroxide 30 ml 12/07/24 16:08 Magnesium Hydroxide 30 Ml Udcup PO 01/06/25 16:07 DAILY PRN PRN CONSTIPATION Magnesium Oxide 400 mg 12/07/24 22:00 12/08/24 08:58 Magnesium Oxide 400 Mg Tablet PO 01/06/25 21:59 400 mg BID RAMON Administration Melatonin 3 mg 12/07/24 22:00 12/07/24 22:13 Melatonin 3 Mg Tablet PO 01/06/25 21:59 3 mg HS RAMON Administration Metoprolol Tartrate 150 mg 12/07/24 22:00 12/08/24 08:55 Metoprolol Tartrate 50 Mg Tablet PO 01/06/25 21:59 150 mg BID RAMON Administration Miscellaneous Information 1 each 12/07/24 17:00 Medication Intervention 1 Each Each 01/06/25 16:59 .RN TO CHECK RAMON Miscellaneous Information 1 each 12/07/24 17:00 Medication Intervention 1 Each Each 01/06/25 16:59 .RN TO CHECK RAMON Montelukast Sodium 10 mg 12/08/24 10:00 12/08/24 08:57 Montelukast Sodium 10 Mg Tablet PO 01/07/25 09:59 10 mg DAILY RAMON Administration Multi-Ingredient Ointment 30 gm 12/07/24 16:08 Zinc Oxide 30 Gm/1 Tube Tube TP 01/06/25 16:07 DAILY PRN PRN PAIN Pantoprazole Sodium 20 mg 12/07/24 22:00 12/08/24 08:57 Pantoprazole 20 Mg Tab PO 01/06/25 21:59 20 mg BID RAMON Administration Potassium Chloride 10 meq 12/08/24 10:00 12/08/24 08:54 Potassium Chloride Tab 10 Meq Tab PO 01/07/25 09:59 10 meq DAILY RAMON Administration Pregabalin 50 mg 12/08/24 10:00 12/08/24 08:55 Pregabalin 50 Mg Capsule PO 01/07/25 09:59 50 mg DAILY RAMON Administration Sodium Chloride 3 ml 12/08/24 08:00 Sodium Cl For Inhalation 3 Ml Ud Nebule 01/07/25 07:59 BIDRT RAMON Tamsulosin HCl 0.4 mg 12/07/24 22:00 12/07/24 22:14 Tamsulosin Hcl 0.4 Mg Cap PO 01/06/25 21:59 0.4 mg HS RAMON Administration Discontinued Medications Generic Name Dose Route Start Last Admin Trade Name Freq PRN Reason Stop Dose Admin Acetaminophen 650 mg 12/07/24 16:08 Acetaminophen 325 Mg Tablet PO 01/06/25 16:07 Q6HPRN PRN FEVER Albuterol Sulfate 2.5 mg 12/07/24 12:31 12/07/24 12:53 Albuterol Solution 2.5 Mg/0.5 Ml Ud Solution 12/07/24 12:32 Not Given STAT ONE Albuterol/Ipratropium 3 ml 12/07/24 12:31 12/07/24 12:53 Ipratropium/Albuterol Sulfate 3 Ml Ampul.Neb 12/07/24 12:32 Not Given STAT ONE Ceftriaxone Sodium 1,000 mg 12/07/24 10:11 12/07/24 11:24 Ceftriaxone Sodium 1000 Mg Inj Vial IM 12/07/24 10:12 Not Given STAT ONE Sodium Chloride 1,000 mls @ 999 mls/hr 12/07/24 10:14 12/07/24 12:26 Sodium Chloride 0.9% 1000 Ml IV 12/07/24 11:14 Infused .Q1H1M STA Infusion Ceftriaxone Sodium 1 gm in 100 mls @ 200 mls/hr 12/07/24 10:59 12/07/24 12:19 Rocephin 1 Gm / 100 Ml Nacl IV 12/07/24 11:28 Infused STAT ONE Infusion Sodium Chloride Confirm 12/07/24 11:14 Sodium Chloride 0.9% 1000 Ml Administered 12/07/24 11:15 Dose 1,000 mls @ ud .ROUTE .STK-MED ONE Ceftriaxone Sodium Confirm 12/07/24 11:14 Rocephin 1 Gm / 100 Ml Nacl Administered 12/07/24 11:15 Dose 1 gm in 100 mls @ ud IV .STK-MED ONE Sodium Chloride 1,000 mls @ 50 mls/hr 12/07/24 15:01 Sodium Chloride 0.9% 1000 Ml IV 01/06/25 15:00 .Q20H RAMON Azithromycin 500 mg/ Sodium 250 mls @ 250 mls/hr 12/07/24 16:00 12/08/24 07:40 Chloride IV 01/06/25 15:59 Not Given Q24H10 [facility] Insulin Human Lispro 0 unit 12/07/24 16:18 12/07/24 22:13 Insulin Lispro 1 Unit SQ 01/06/25 16:17 13 unit UD PRN Administration HYPERGLYCEMIA Levalbuterol HCl 1.25 mg 12/07/24 16:16 Levalbuterol Hcl 1.25 Mg/0.5 Ml Neb IH 01/06/25 16:15 Q4H PRN PRN SHORTNESS OF BREATH Loperamide HCl 0 mg 12/07/24 16:37 Loperamide Hcl 2 Mg Capsule PO 01/06/25 16:36 .COMPLEX PRN DIARRHEA Non-Formulary Medication 1 each 12/07/24 16:06 12/08/24 08:36 Pharmacy Dosing Request [facility] 12/07/24 16:07 Not Given STAT ONE Sodium Chloride Confirm 12/07/24 18:50 Sodium Cl For Inhalation 3 Ml Ud Nebule Administered 12/07/24 18:51 Dose 3 ml IH .STK-MED ONE Warfarin Sodium 2 mg 12/08/24 18:00 Warfarin Sodium 2 Mg Tablet PO 01/07/25 17:59 [facility] Multi-Disciplinary Progress Notes: Multi-Disciplinary Progress Notes 12/07/24 17:07 Pharmacy Note by Carroll Ramirez Hold Coumadin tonight and re-check INR tomorrow and restart at 2mg if WNL. Initialized on 12/07/24 17:07 - END OF NOTE 12/07/24 17:06 Pharmacy Note by Carroll Ramirez Zosyn decreased to 3.375gm dose per renal dosing policy. Estimated crcl is 25ml/min. Initialized on 12/07/24 17:06 - END OF NOTE 12/07/24 10:06 Respiratory Note by Holly Cage PT PLACED ON 5LPM OXYMASK Initialized on 12/07/24 10:06 - END OF NOTE Assessment/Plan (1) CHF (congestive heart failure) Current Visit: Yes Status: Acute Code(s): I50.9 - HEART FAILURE, UNSPECIFIED (2) COPD (chronic obstructive pulmonary disease) Current Visit: No Status: Chronic (3) Pneumonia Current Visit: Yes Status: Acute Code(s): J18.9 - PNEUMONIA, UNSPECIFIED ORGANISM (4) Leukocytosis Current Visit: Yes Status: Acute Code(s): D72.829 - ELEVATED WHITE BLOOD CELL COUNT, UNSPECIFIED (5) Dyspnea Current Visit: No Status: Resolved Code(s): R06.00 - DYSPNEA, UNSPECIFIED (6) HTN (hypertension) Current Visit: No Status: Chronic Code(s): I10 - ESSENTIAL (PRIMARY) HYPERTENSION (7) Hypothyroidism Current Visit: No Status: Chronic Code(s): E03.9 - HYPOTHYROIDISM, UNSPECIFIED (8) Iron deficiency anemia Current Visit: No Status: Chronic Code(s): D50.9 - IRON DEFICIENCY ANEMIA, UNSPECIFIED (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 Current Visit: No Status: Chronic Code(s): Z79.01 - [employer]ISION [employer]IEF (CURRENT) USE OF ANTICOAGULANTS (10) Type II diabetes mellitus Current Visit: No Status: Chronic Qualifiers: Diabetes mellitus prison insulin use: with adjunct faculty for medical terminology use (11) Vitamin D deficiency Current Visit: No Status: Chronic Code(s): E55.9 - VITAMIN D DEFICIENCY, UNSPECIFIED (12) Afib Current Visit: No Status: Chronic Code(s): I48.91 - UNSPECIFIED ATRIAL FIBRILLATION (13) CKD (chronic kidney disease) Current Visit: Yes Status: Chronic Assessment & Plan: (1) CHF (congestive heart failure) Current Visit: Yes Status: Acute Assessment & Plan: - As seen on CXR - Lasix IV 40 BID started - BNP 45794 - 10L O2 mask 98% - Coarse lung sounds - Place purewick - Strict I&O - EF 72%- Echo 11/06/23 IMPRESSION: 1. NORMAL CONTRACTILITY OF THE LEFT VENTRICLE. 2. MILD CONCENTRIC LEFT VENTRICULAR HYPERTROPHY. 3. POSSIBLE IMPAIRED LEFT VENTRICULAR RELAXATION. 4. MILD TRICUSPID REGURGITATION. 5. NORMAL RIGHT VENTRICULAR SYSTOLIC PRESSURE. 6. MITRAL VALVULAR CALCIFICATION. Code(s): I50.9 - HEART FAILURE, UNSPECIFIED 12/08 - Room air 98%- O2 weaned overnight - Lung sounds clear - Cont. lasix IV (2) COPD (chronic obstructive pulmonary disease) Current Visit: No Status: Chronic Assessment & Plan: - With acute exacerbation - Antibiotic, steroids, duonebs, inhaler - On 10L O2 mask - Using accessory muscles. - Tele - RT eval and treat- may need bipap - ABG reviewed and shows: Primary resp alkalosis, acute- with secondary metabolic alkalosis 12/08 - Room air 98%- O2 weaned overnight - Lung sounds clear (3) Pneumonia Current Visit: Yes Status: Acute Assessment & Plan: - CXR reviewed - 10L oxygen - mask-98% - Baseline RA - CBC reviewed - Antibiotic, steroids, xoponex, Pulmicort - Tele - Sputum and BC x2 pending - Zosyn started IV as pt is allergic to Levaquin and there is too many interactions with azithromycin and her meds. 12/08 - Room air 98%- O2 weaned overnight - Lung sounds clear - Barium swallow eval Tuesday Code(s): J18.9 - PNEUMONIA, UNSPECIFIED ORGANISM (4) Leukocytosis Current Visit: Yes Status: Acute Assessment & Plan: - WBC 15.4 - FLU/COVID/ RSV pending + Temp on admission and tylenol gave - CXR shows possible pneumonia- see plan above - BC x2 pending. - Procal pending 12/08 - Resolved - No temp overnight Code(s): D72.829 - ELEVATED WHITE BLOOD CELL COUNT, UNSPECIFIED (5) Dyspnea Current Visit: No Status: Resolved Assessment & Plan: - 2:2 CHF, COPD exacerbation, pneumonia - on 10L O2 mask 98% 12/08 - resolved Code(s): R06.00 - DYSPNEA, UNSPECIFIED (6) HTN (hypertension) Current Visit: No Status: Chronic Assessment & Plan: - BP stable - Continue home meds. 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 Current Visit: No Status: Chronic Assessment & Plan: - Continue Warfarin - Pharmacy to manage - INR 3.21 Code(s): Z79.01 - NURSING HOME (CURRENT) USE OF ANTICOAGULANTS (10) Type II diabetes mellitus Current Visit: No Status: Chronic Qualifiers: Diabetes mellitus prison insulin use: with adjunct faculty for medical terminology use Assessment & Plan: - Accuchecks AC/HS - Continue home dose of linsulin - A1C- pending - Carb consistent diet (11) Vitamin D deficiency Current Visit: No Status: Chronic Assessment & Plan: - Vitamin D daily PO Code(s): E55.9 - VITAMIN D DEFICIENCY, UNSPECIFIED (12) Afib Current Visit: No Status: Chronic Assessment & Plan: - Tele - Continue home warfarin and metoprolol Code(s): I48.91 - UNSPECIFIED ATRIAL FIBRILLATION (13) CKD (chronic kidney disease) Current Visit: Yes Status: Chronic Assessment & Plan: - Creat 2.23- BL 2.16 - Likely 2:2 lasix for CHF Code(s): N18.9 - CHRONIC KIDNEY DISEASE, UNSPECIFIED Code(s): N18.9 - CHRONIC KIDNEY DISEASE, UNSPECIFIED (14) Hypoglycemia Current Visit: Yes Status: Acute Assessment & Plan: - Glucose 54 this AM - Hypoglycemia protocol started. - Humalog s/s changed from high dose to moderate dose VTE: Coumadin PPI: Protonix Next of KIN: Child- Letty Dumont D/C plan: 2-3 days Code status: Full Code(s): E16.2 - HYPOGLYCEMIA, UNSPECIFIED
[2024-12-08] MEDS ORDERED: NON-FORMULARY ITEM (Rosuvastatin Calcium [Rosuvastatin Calcium] 5 MG Tablet) PO SCH (10:00)
[2024-12-08] MEDS: HUMALOG SQ PRN (11:30)
[2024-12-08] MEDS: Sodium Chloride 0.9% 1000 ML 1,000 ML IV SCH (12:52)
[2024-12-08] MEDS ORDERED: Coumadin 2 MG PO SCH (18:00)
[2024-12-08] MEDS: Sodium Chloride 3 ML UD NEBULES IH SCH (18:47)
[2024-12-08 21:09] LABS: 027 TOX PROD PRESUMPTIVE NEGATIVE (NEGATIVE); TOXIGENIC C. DIFF ORG NEGATIVE (NEGATIVE)
--- NOTE | 2024-12-09 08:20 | PCM.NOTE ---
Date and Time: 12/09/24 0814 Subjective Assessment: 12/07/24 Ms. Magana is a 79-year-old female and a resident of [facility], with a complex past medical history including coronary artery disease (CAD), pulmonary embolism/deep vein thrombosis (PE/DVT), anxiety, celiac disease, gastroesophageal reflux disease (GERD), hypertension, hypothyroidism, chronic kidney disease (CKD), congestive heart failure (CHF), chronic obstructive pulmonary disease (COPD), peripheral vascular disease (PVD), atrial fibrillation, ESBL infection, cerebrovascular accident (CVA), hyperlipidemia, anemia, depression, breast cancer, and type 2 diabetes mellitus. She presented to the emergency department today with complaints of dyspnea and fever, which have been progressively worsening over the past couple of days. She also reports significant fatigue. [facility] staff noted that the patient appeared confused and exhibited an altered level of consciousness, prompting her transfer. On evaluation, she is alert and oriented but intermittently confused and not behaving like her usual self, per staff familiar with her baseline. She has experienced shortness of breath for the past 24 hours and is currently requiring 10 liters of oxygen via oxymask, maintaining a saturation of 98%. She is being admitted for management of a COPD and CHF exacerbation, along with suspected pneumonia. Treatment has been initiated with antibiotics, steroids, Xopenex, Pulmicort, and Lasix. The patient denies chest pain, abdominal pain, nausea, vomiting, or diarrhea. Notably, she is using accessory abdominal muscles to assist with breathing. 12/08/24 Pt resting in bed. She states she is feeling much better today. She has been weaned off the O2 and is now RA 98%. She cannot find her glasses and the alf was called. The nurse at the nursing states pt has been coughing even when drinking fluids and feels she may be aspirating. Will order a barium swallow for further eval Tuesday. Continue Lasix for CHF. Continue antibiotics, Steroids, Xopenex, and Pulmicort for COPD exacerbation and pneumonia. Glucose 52 this AM and hypoglycemia protocol started. Pt was able to eat her breakfast w/o any concerns. She denies CP, SOB, abd. pain, N/V/D. 12/09/24 Patient is resting in a chair this morning and reports feeling well. She developed diarrhea overnight; stool sample for C. difficile was sent and returned negative. Probiotics have been initiated to address the diarrhea. Blood cultures 2 and a sputum culture are pending. She is scheduled for a barium swallow tomorrow to evaluate for possible aspiration. Continue Zosyn for treatment of pneumonia and Lasix for CHF exacerbation. She denies chest pain, shortness of breath, abdominal pain, nausea, or vomiting. - Review of Systems Constitutional: Weakness, No Fever, No Chills Eyes: No Symptoms Ears, Nose, & Throat: No Symptoms Respiratory: No Cough, No Short Of Breath Cardiac: No Chest Pain, No Edema, No Syncope Abdominal/Gastrointestinal: Diarrhea, No Abdominal Pain, No Nausea, No Vomiting Genitourinary Symptoms: No Dysuria Musculoskeletal: No Back Pain, No Neck Pain Skin: No Rash Neurological: No Dizziness, No Focal Weakness, No Sensory Changes Psychological: No Symptoms Endocrine: No Symptoms Hematologic/Lymphatic: No Symptoms Immunological/Allergic: No Symptoms Objective Exam General Appearance: no apparent distress, alert Neurologic Exam: alert, oriented x 3, cooperative, normal mood/affect, nml cerebellar function, sensation nml, No motor deficits Skin Exam: normal color, warm, dry Eye Exam: PERRL, EOMI, eyes nml inspection Ears, Nose, Throat Exam: normal ENT inspection, pharynx normal, moist mucous membranes Neck Exam: normal inspection, non-tender, supple, full range of motion Respiratory Exam: normal breath sounds, lungs clear, No respiratory distress Cardiovascular Exam: regular rate/rhythm, normal heart sounds Gastrointestinal/Abdomen Exam: soft, No tenderness, No mass Extremity Exam: normal inspection, normal range of motion Back Exam: normal inspection, normal range of motion, No CVA tenderness, No vertebral tenderness Pelvic Exam: deferred Rectal Exam: deferred Objective Data Vital Signs: Vital Signs - 24 hr Temp Pulse Resp BP Pulse Ox 12/09/24 06:40 60 18 95 12/09/24 03:00 18 12/08/24 23:00 97.3 F 60 16 122/61 95 12/08/24 19:00 97.3 F 60 16 122/61 95 12/08/24 18:48 61 18 95 12/08/24 15:00 97.9 F 63 18 132/62 97 12/08/24 11:00 97.5 F 56 L 18 140/67 91 L Pain Assessment - Last Documented Pain Intensity 0 Intake and Output: Intake & Output 05/0812/07/24 12/08/24 12/09/24 11:59 11:59 11:59 11:59 Intake Total 840 665 Output Total 900 Balance -60 665 Weight 76.3 kg 77 kg Lab Results: Lab Results-Last 24 Hours 12/08/24 12/08/24 12/08/24 Range/Units 08:39 11:22 16:24 POC Glucometer 116 H 177 H 42 L* (74 to 106) mg/dL C. difficile Screen (NEGATIVE) C.difficile 027-NAP1-B1 (NEGATIVE) 12/08/24 12/08/24 12/08/24 Range/Units 17:20 20:24 21:01 POC Glucometer 140 H 359 H (74 to 106) mg/dL C. difficile Screen NEGATIVE (NEGATIVE) C.difficile 027-NAP1-B1 PRESUMPTIVE NEGATIVE (NEGATIVE) 12/09/24 Range/Units 07:14 POC Glucometer 113 H (74 to 106) mg/dL C. difficile Screen (NEGATIVE) C.difficile 027-NAP1-B1 (NEGATIVE) Radiology Exams: Radiology Procedures Category Date Time Status BARIUM SWALLOW ESOPHOGRAM Routine Exams 12/10/24 09:00 Ordered CHEST 1 VIEW (PORTABLE) Stat Exams 12/07/24 10:12 Completed Medications: Medications Generic Name Dose Route Start Last Admin Trade Name Freq PRN Reason Stop Dose Admin Acetaminophen 650 mg 12/07/24 15:01 Acetaminophen 650 Mg Supp.Rect MO 01/06/25 15:00 Q4H PRN PRN PAIN AND/OR FEVER Acetaminophen 650 mg 12/07/24 17:15 Acetaminophen 325 Mg Tablet PO 01/06/25 17:14 Q6H PRN PRN PAIN AND/OR FEVER Amlodipine Besylate 2.5 mg 12/08/24 10:00 12/08/24 09:01 Amlodipine Besylate 5 Mg Tablet PO 01/07/25 09:59 2.5 mg DAILY RAMON Administration Bisacodyl 10 mg 12/07/24 16:08 Bisacodyl 10 Mg Supp.Rect RC 01/06/25 16:07 DAILY PRN PRN CONSTIPATION Budesonide 0.5 mg 12/07/24 19:00 12/09/24 06:32 Budesonide 0.5 Mg/2 Ml Ampul.Neb. IH 01/06/25 18:59 Not Given BIDRT RAMON Buspirone HCl 10 mg 12/07/24 22:00 12/08/24 22:37 Buspirone Hcl 5 Mg Tablet PO 01/06/25 21:59 10 mg BID RAMON Administration Calcitriol 0.5 mcg 12/08/24 10:00 12/08/24 08:59 Calcitriol 0.25 Mcg Capsule PO 01/07/25 09:59 0.5 mcg DAILY RAMON Administration Calcium Carbonate/Glycine 750 mg 12/07/24 17:00 12/08/24 22:38 Calcium Carbonate 750 Mg 750 Mg Tab.Chew PO 01/06/25 16:59 750 mg QID RAMON Administration Cyanocobalamin 1,000 mcg 12/08/24 10:00 12/08/24 08:58 Cyanocobalamin 500 Mcg Tablet PO 01/07/25 09:59 1,000 mcg DAILY RAMON Administration Dextrose 25 ml 12/08/24 07:38 12/08/24 16:28 Dextrose 50%-Water 50 Ml Abboject IV 01/07/25 07:37 25 ml PRN PRN Administration HYPOGLYCEMIA Dronedarone 400 mg 12/07/24 22:00 12/08/24 22:37 Dronedarone Hydrochloride 400 Mg Tablet PO 01/06/25 21:59 400 mg BID RAMON Administration Ergocalciferol 50,000 unit 12/09/24 10:00 Ergocalciferol (Vitamin D2) 50,000 Unit Capsule PO 01/08/25 09:59 Q7D RAMON Famotidine 20 mg 12/07/24 22:00 12/08/24 22:37 Famotidine 20 Mg Tablet PO 01/06/25 21:59 20 mg BID RAMON Administration Ferrous Sulfate 325 mg 12/07/24 22:00 12/08/24 22:37 Ferrous Sulfate 325 Mg Tablet PO 01/06/25 21:59 325 mg BID RAMON Administration Folic Acid 1 mg 12/08/24 10:00 12/08/24 08:58 Folic Acid 1 Mg Tablet PO 01/07/25 09:59 1 mg DAILY RAMON Administration Furosemide 40 mg 12/07/24 15:24 12/08/24 16:31 Furosemide 40 Mg/4 Ml Vial IV 01/06/25 15:23 40 mg BID DIURETIC RAMON Administration Glucose 15 gm 12/08/24 07:38 Dextrose 15 Gm Gel PO 01/07/25 07:37 PRN PRN HYPOGLYCEMIA Heparin Sodium (Beef Lung) 500 units 12/09/24 07:36 Heparin Lock Flush Pf 500 Units/5 Ml Syringe PORT FLUSH 01/08/25 07:35 PRN PRN IV PORT FLUSH Piperacillin Sod/Tazobactam 100 mls @ 200 mls/hr 12/07/24 18:00 12/09/24 06:29 Sod 3.375 gm/ Sodium Chloride IV 12/10/24 17:59 200 mls/hr Q6HT RAMON Administration Insulin Human Lispro 0 unit 12/08/24 07:41 12/08/24 22:36 Insulin Lispro 1 Unit SQ 01/07/25 07:40 11 unit UD PRN Administration HYPERGLYCEMIA Lactobacillus Acidophilus 1 tab 12/08/24 10:00 12/08/24 08:55 Lactobacillus Acidophilus 1 Tab Tablet PO 01/07/25 09:59 1 tab DAILY RAMON Administration Levothyroxine Sodium 100 mcg 12/08/24 10:00 12/08/24 08:57 Levothyroxine Sodium 100 Mcg Tablet PO 01/07/25 09:59 100 mcg DAILY RAMON Administration Levothyroxine Sodium 75 mcg 12/08/24 10:00 12/08/24 08:57 Levothyroxine Sodium 75 Mcg Tablet PO 01/07/25 09:59 75 mcg DAILY RAMON Administration Loperamide HCl 0 mg 12/07/24 16:38 Loperamide Hcl 2 Mg Capsule PO 01/06/25 16:36 PRN PRN DIARRHEA Loratadine 10 mg 12/07/24 22:00 12/08/24 22:37 Loratadine 10 Mg Tablet PO 01/06/25 21:59 10 mg HS RAMON Administration Magnesium Hydroxide 30 ml 12/07/24 16:08 Magnesium Hydroxide 30 Ml Udcup PO 01/06/25 16:07 DAILY PRN PRN CONSTIPATION Magnesium Oxide 400 mg 12/07/24 22:00 12/08/24 22:37 Magnesium Oxide 400 Mg Tablet PO 01/06/25 21:59 400 mg BID RAMON Administration Melatonin 3 mg 12/07/24 22:00 12/08/24 22:37 Melatonin 3 Mg Tablet PO 01/06/25 21:59 3 mg HS RAMON Administration Metoprolol Tartrate 150 mg 12/07/24 22:00 12/08/24 22:37 Metoprolol Tartrate 50 Mg Tablet PO 01/06/25 21:59 150 mg BID RAMON Administration Miscellaneous Information 1 each 12/07/24 17:00 Medication Intervention 1 Each Each 01/06/25 16:59 .RN TO [facility] Miscellaneous Information 1 each 12/07/24 17:00 Medication Intervention 1 Each Each 01/06/25 16:59 .RN TO CHECK RAMON Montelukast Sodium 10 mg 12/08/24 10:00 12/08/24 08:57 Montelukast Sodium 10 Mg Tablet PO 01/07/25 09:59 10 mg DAILY RAMON Administration Multi-Ingredient Ointment 30 gm 12/07/24 16:08 Zinc Oxide 30 Gm/1 Tube Tube TP 01/06/25 16:07 DAILY PRN PRN PAIN Pantoprazole Sodium 20 mg 12/07/24 22:00 12/08/24 22:38 Pantoprazole 20 Mg Tab PO 01/06/25 21:59 20 mg BID RAMON Administration Potassium Chloride 10 meq 12/08/24 10:00 12/08/24 08:54 Potassium Chloride Tab 10 Meq Tab PO 01/07/25 09:59 10 meq DAILY RAMON Administration Pregabalin 50 mg 12/08/24 10:00 12/08/24 08:55 Pregabalin 50 Mg Capsule PO 01/07/25 09:59 50 mg DAILY RAMON Administration Sodium Chloride 3 ml 12/08/24 08:00 12/09/24 06:32 Sodium Cl For Inhalation 3 Ml Ud Nebule 01/07/25 07:59 Not Given BIDRT RAMON Tamsulosin HCl 0.4 mg 12/07/24 22:00 12/08/24 22:37 Tamsulosin Hcl 0.4 Mg Cap PO 01/06/25 21:59 0.4 mg HS RAMON Administration Discontinued Medications Generic Name Dose Route Start Last Admin Trade Name Freq PRN Reason Stop Dose Admin Acetaminophen 650 mg 12/07/24 16:08 Acetaminophen 325 Mg Tablet PO 01/06/25 16:07 Q6HPRN PRN FEVER Albuterol Sulfate 2.5 mg 12/07/24 12:31 12/07/24 12:53 Albuterol Solution 2.5 Mg/0.5 Ml Ud Solution 12/07/24 12:32 Not Given STAT ONE Albuterol/Ipratropium 3 ml 12/07/24 12:31 12/07/24 12:53 Ipratropium/Albuterol Sulfate 3 Ml Ampul.Neb IH 12/07/24 12:32 Not Given STAT ONE Ceftriaxone Sodium 1,000 mg 12/07/24 10:11 12/07/24 11:24 Ceftriaxone Sodium 1000 Mg Inj Vial IM 12/07/24 10:12 Not Given STAT ONE Sodium Chloride 1,000 mls @ 999 mls/hr 12/07/24 10:14 12/07/24 12:26 Sodium Chloride 0.9% 1000 Ml IV 12/07/24 11:14 Infused .Q1H1M STA Infusion Ceftriaxone Sodium 1 gm in 100 mls @ 200 mls/hr 12/07/24 10:59 12/07/24 12:19 Rocephin 1 Gm / 100 Ml Nacl IV 12/07/24 11:28 Infused STAT ONE Infusion Sodium Chloride Confirm 12/07/24 11:14 Sodium Chloride 0.9% 1000 Ml Administered 12/07/24 11:15 Dose 1,000 mls @ ud .ROUTE .STK-MED ONE Ceftriaxone Sodium Confirm 12/07/24 11:14 Rocephin 1 Gm / 100 Ml Nacl Administered 12/07/24 11:15 Dose 1 gm in 100 mls @ ud IV .STK-MED ONE Sodium Chloride 1,000 mls @ 50 mls/hr 12/07/24 15:01 12/08/24 12:52 Sodium Chloride 0.9% 1000 Ml IV 01/06/25 15:00 Not Given .Q20H RAMON Azithromycin 500 mg/ Sodium 250 mls @ 250 mls/hr 12/07/24 16:00 12/08/24 07:40 Chloride IV 01/06/25 15:59 Not Given Q24H10 RAMON Insulin Glargine 22 unit 12/07/24 22:00 12/07/24 22:13 Insulin Glargine 1 Unit SQ 01/06/25 21:59 22 unit HS RAMON Administration Insulin Human Lispro 7 unit 12/07/24 17:00 12/08/24 16:35 Insulin Lispro 1 Unit SQ 01/06/25 16:59 Not Given DINNER RAMON Insulin Human Lispro 15 unit 12/08/24 08:00 12/08/24 11:30 Insulin Lispro 1 Unit SQ 01/07/25 07:59 15 unit 0800,1200 RAMON Administration Insulin Human Lispro 0 unit 12/07/24 16:18 12/07/24 22:13 Insulin Lispro 1 Unit SQ 01/06/25 16:17 13 unit UD PRN Administration HYPERGLYCEMIA Levalbuterol HCl 1.25 mg 12/07/24 16:16 Levalbuterol Hcl 1.25 Mg/0.5 Ml Neb IH 01/06/25 16:15 Q4H PRN PRN SHORTNESS OF BREATH Loperamide HCl 0 mg 12/07/24 16:37 Loperamide Hcl 2 Mg Capsule PO 01/06/25 16:36 .COMPLEX PRN DIARRHEA Non-Formulary Medication 1 each 12/07/24 16:06 12/08/24 08:36 Pharmacy Dosing Request 12/07/24 16:07 Not Given STAT ONE Sodium Chloride Confirm 12/07/24 18:50 Sodium Cl For Inhalation 3 Ml Ud Nebule Administered 12/07/24 18:51 Dose 3 ml IH .STK-MED ONE Warfarin Sodium 2 mg 12/08/24 18:00 Warfarin Sodium 2 Mg Tablet PO 01/07/25 17:59 [facility] Assessment/Plan (1) CHF (congestive heart failure) Current Visit: Yes Status: Acute Code(s): I50.9 - HEART FAILURE, UNSPECIFIED (2) COPD (chronic obstructive pulmonary disease) Current Visit: No Status: Chronic (3) Pneumonia Current Visit: Yes Status: Acute Code(s): J18.9 - PNEUMONIA, UNSPECIFIED ORGANISM (4) Leukocytosis Current Visit: Yes Status: Acute Code(s): D72.829 - ELEVATED WHITE BLOOD CELL COUNT, UNSPECIFIED (5) Dyspnea Current Visit: No Status: Resolved Code(s): R06.00 - DYSPNEA, UNSPECIFIED (6) HTN (hypertension) Current Visit: No Status: Chronic Code(s): I10 - ESSENTIAL (PRIMARY) HYPERTENSION (7) Hypothyroidism Current Visit: No Status: Chronic Code(s): E03.9 - HYPOTHYROIDISM, UNSPECIFIED (8) Iron deficiency anemia Current Visit: No Status: Chronic Code(s): D50.9 - IRON DEFICIENCY ANEMIA, UNSPECIFIED (9) 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 Current Visit: No Status: Chronic Code(s): Z79.01 - TECHNICAL HEALTHCARE CONSULTANT (CURRENT) USE OF ANTICOAGULANTS (10) Type II diabetes mellitus Current Visit: No Status: Chronic Qualifiers: Diabetes mellitus supervisor long goods insulin use: with group home use (11) Vitamin D deficiency Current Visit: No Status: Chronic Code(s): E55.9 - VITAMIN D DEFICIENCY, UNSPECIFIED (12) Afib Current Visit: No Status: Chronic Code(s): I48.91 - UNSPECIFIED ATRIAL FIBRILLATION (13) CKD (chronic kidney disease) Current Visit: Yes Status: Chronic Code(s): N18.9 - CHRONIC KIDNEY DISEASE, UNSPECIFIED (14) Hypoglycemia Current Visit: Yes Status: Acute Assessment & Plan: (1) CHF (congestive heart failure) Current Visit: Yes Status: Acute Assessment & Plan: - As seen on CXR - Lasix IV 40 BID started - BNP 20152 - 10L O2 mask 98% - Coarse lung sounds - Place purewick - Strict I&O - EF 72%- Echo 11/06/23 IMPRESSION: 1. NORMAL CONTRACTILITY OF THE LEFT VENTRICLE. 2. MILD CONCENTRIC LEFT VENTRICULAR HYPERTROPHY. 3. POSSIBLE IMPAIRED LEFT VENTRICULAR RELAXATION. 4. MILD TRICUSPID REGURGITATION. 5. NORMAL RIGHT VENTRICULAR SYSTOLIC PRESSURE. 6. MITRAL VALVULAR CALCIFICATION. Code(s): I50.9 - HEART FAILURE, UNSPECIFIED 12/08 - Room air 98%- O2 weaned overnight - Lung sounds clear - Cont. lasix IV 12/09 - RA 95% (2) COPD (chronic obstructive pulmonary disease) Current Visit: No Status: Chronic Assessment & Plan: - With acute exacerbation - Antibiotic, xoponex inhaler - On 10L O2 mask - Using accessory muscles. - Tele - RT eval and treat- may need bipap - ABG reviewed and shows: Primary resp alkalosis, acute- with secondary metabolic alkalosis 12/08 - Room air 98%- O2 weaned overnight - Lung sounds clear 12/09 - RA 95% - Lung sounds clear - Xoponex stopped by RT stating she is allergic- however this is not an allergy on her chart- she is breathing well so not needed at this time. (3) Pneumonia Current Visit: Yes Status: Acute Assessment & Plan: - CXR reviewed - 10L oxygen - mask-98% - Baseline RA - CBC reviewed - Antibiotic, xoponex, Pulmicort - Tele - Sputum and BC x2 pending - Zosyn started IV as pt is allergic to Levaquin and there is too many interactions with azithromycin and her meds. 12/08 - Room air 98%- O2 weaned overnight - Lung sounds clear - Barium swallow eval Friday 12/08 - RA 95% - Lung sounds clear - Xoponex stopped by RT stating she is allergic- however this is not an allergy on her chart- she is breathing well so not needed at this time. - BC x2 and Sputum culture pending - Labs pending this AM- will review when back Code(s): J18.9 - PNEUMONIA, UNSPECIFIED ORGANISM (4) Leukocytosis Current Visit: Yes Status: Acute Assessment & Plan: - WBC 15.4 - FLU/COVID/ RSV pending + Temp on admission and tylenol gave - CXR shows possible pneumonia- see plan above - BC x2 pending. - Procal pending 12/08 - Resolved - No temp overnight Code(s): D72.829 - ELEVATED WHITE BLOOD CELL COUNT, UNSPECIFIED (5) Dyspnea Current Visit: No Status: Resolved Assessment & Plan: - 2:2 CHF, COPD exacerbation, pneumonia - on 10L O2 mask 98% 12/08 - resolved Code(s): R06.00 - DYSPNEA, UNSPECIFIED (6) HTN (hypertension) Current Visit: No Status: Chronic Assessment & Plan: - BP stable - Continue home meds. 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 12/09 - Glucose stable this AM (11) Vitamin D deficiency Current Visit: No Status: Chronic Assessment & Plan: - Vitamin D daily PO Code(s): E55.9 - VITAMIN D DEFICIENCY, UNSPECIFIED (12) Afib Current Visit: No Status: Chronic Assessment & Plan: - Tele - Continue home warfarin and metoprolol - Pharmacy managing Warfarin Code(s): I48.91 - UNSPECIFIED ATRIAL FIBRILLATION (13) CKD (chronic kidney disease) Current Visit: Yes Status: Chronic Assessment & Plan: - Creat 2.23- BL 2.16 - Likely 2:2 lasix for CHF 12/09 - Labs pending today Code(s): N18.9 - CHRONIC KIDNEY DISEASE, UNSPECIFIED (14) Hypoglycemia Current Visit: Yes Status: Acute Assessment & Plan: - Glucose 54 this AM - Hypoglycemia protocol started. - Humalog s/s changed from high dose to moderate dose 12/11 - Glucose tsable this AM and overniht VTE: Coumadin PPI: Protonix Next of KIN: Child- Letty Dumont D/C plan: 1-2 days Code status: Full Code(s): E16.2 - HYPOGLYCEMIA, UNSPECIFIED Code(s): E16.2 - HYPOGLYCEMIA, UNSPECIFIED
[2024-12-09] MEDS: VITAMIN D2 PO SCH (09:37)
[2024-12-09 13:08] LABS: Hematocrit 29.5 % (34.1-44.9); Mean Cell Volume 96.4 fL (79.4-94.8); Mean Corpuscular Hemoglobin 29.4 pg (25.6-32.2); Mean Corpuscular Hgb Concent. 30.5 g/dL (32.2-35.5); Mean Platelet Volume 11.4 fL (9.4-12.3); Platelet Count 331 x10^3/uL (182-369); Red Blood Count 3.06 x10^6/uL (3.93-5.22); Red Cell Distribution Width 13.2 % (11.7-14.4); White Blood Count 6.2 x10^3/uL (3.98-10.04)
[2024-12-09 13:22] LABS: ALBUMIN 3.7 g/dL (3.5-5.0); ANION GAP 22.6 MEQ/L (5-15); BILIRUBIN,TOTAL 0.7 mg/dL (0.2-1.3); Calcium 7.1 mg/dL (8.4-10.2); Creatinine 1 2.21 mg/dL (0.52-1.04); EST GLOMERULAR FILTRATION RATE 22.1 ML/MIN; Potassium 4.1 mmol/L (3.5-5.1); Total Protein 6.8 g/dL (6.3-8.2)
[2024-12-09] MEDS: IMODIUM 2 MG PO PRN ×2 (18:09→21:23)
--- NOTE | 2024-12-10 05:20 | PCM.NOTE ---
Date and Time: 12/10/24 0515 Subjective Assessment: Ms. 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 On arrival, she was using accessory muscles to breathe and required 10L oxygen via oxymask, maintaining saturation at 98%. Chest X-ray was suggestive of pulmonary congestion and possible pneumonia. BNP was markedly elevated at 13,200, supporting an acute CHF exacerbation. ABG showed primary respiratory alkalosis with secondary metabolic alkalosis. She was treated with IV Lasix, corticosteroids, Pulmicort, and empiric IV Zosyn for suspected pneumonia. Xopenex was initially administered but later discontinued by RT due to suspected intolerance, though no formal allergy is recorded. Her oxygen requirements rapidly improved, and she was weaned to room air with sustained oxygen saturation ?95%. Mentation also improved, though baseline cognitive status remains intermittently altered. A low-grade fever and leukocytosis (WBC 15.4) resolved with treatment. Blood cultures and sputum culture were obtained; results are pending. She developed diarrhea on hospital day 2; stool testing for C. difficile was negative, and probiotics were initiated. A barium swallow is planned to evaluate for potential aspiration noted by jail staff. Renal function remains at baseline (creatinine 2.23). Hemoglobin dropped from 10.1 to 7.8, consistent with her chronic anemia; she remains hemodynamically stable. 12/10/24: Met with patient bedside. Dyspnea improved. Plan for evaluation of aspiration today with barium swallow. Creat at 2.29 today most likely secondary to diuresis. Most likely can discharge tomorrow pending ST eval. - Review of Systems Constitutional: No Symptoms Eyes: No Symptoms Ears, Nose, & Throat: No Symptoms Respiratory: No Symptoms Cardiac: No Symptoms Abdominal/Gastrointestinal: No Symptoms Genitourinary Symptoms: No Symptoms Musculoskeletal: No Symptoms Skin: No Symptoms Neurological: No Symptoms Psychological: Hallucinations Endocrine: No Symptoms Hematologic/Lymphatic: No Symptoms Immunological/Allergic: No Symptoms Objective Exam General Appearance: no apparent distress Neurologic Exam: alert, oriented x 3, cooperative Skin Exam: normal color Wound Assessment: Skin/Wound Assessment Wound/Incision Assessment Start: 12/09/24 11:20 Text: Status: Active Freq: Protocol: Document 12/09/24 11:20 RB (Rec: 12/09/24 11:22 RB [id number]) Wound/Incision Assessment Right Hip Wound Assessment Shift Assessment Wound Type Incision Dressing Status Dry & Intact Drainage Amount None Drainage Odor None/Absent General Appearance Well Approximated Primary Dressing 3x3 mepilex Comment new dresg applied per Dr Isaacs order 3x3 mepilex Wound Photo Photo Taken No Eye Exam: PERRL Ears, Nose, Throat Exam: normal ENT inspection Neck Exam: normal inspection Respiratory Exam: normal breath sounds, lungs clear Cardiovascular Exam: irregular Gastrointestinal/Abdomen Exam: soft, normal bowel sounds Extremity Exam: normal inspection Back Exam: normal inspection Pelvic Exam: deferred Rectal Exam: deferred Objective Data Vital Signs: Vital Signs - 24 hr Temp Pulse Resp BP Pulse Ox 12/10/24 03:00 97.9 F 69 18 141/76 95 12/09/24 23:00 98.9 F 79 17 146/77 95 12/09/24 19:00 98.4 F 77 16 151/85 95 12/09/24 15:00 97.5 F 60 20 158/73 97 12/09/24 11:00 97.5 F 65 20 124/91 97 12/09/24 07:00 97.5 F 53 L 20 142/94 95 12/09/24 06:40 60 18 95 Pain Assessment - Last Documented Pain Intensity 0 Intake and Output: Intake & Output 12/07/24 12/08/24 12/09/24 12/10/24 11:59 11:59 11:59 11:59 Intake Total 840 1065 540 Output Total 900 1 Balance -60 1064 540 Weight 76.3 kg 77 kg Lab Results: Lab Results-Last 24 Hours 12/09/24 12/09/24 12/09/24 Range/Units 07:14 11:42 13:00 WBC (3.98-10.04) x10^3/uL RBC (3.93-5.22) x10^6/uL Hgb (11.2-15.7) g/dL Hct (34.1-44.9) % MCV (79.4-94.8) fL MCH (25.6-32.2) pg MCHC (32.2-35.5) g/dL RDW (11.7-14.4) % Plt Count (182-369) x10^3/uL MPV (9.4-12.3) fL Sodium (135-145) mmol/L Potassium (3.5-5.1) mmol/L Chloride (98-107) mmol/L Carbon Dioxide (22-30) mmol/L Anion Gap (5-15) MEQ/L BUN (7-17) mg/dL Creatinine (0.52-1.04) mg/dL Estimated GFR ML/MIN Glucose (74-106) mg/dL POC Glucometer 113 H 214 H (74 to 106) mg/dL Hemoglobin A1c 7.75 H (4.5-6.0) % Calcium (8.4-10.2) mg/dL Total Bilirubin (0.2-1.3) mg/dL AST (14-36) U/L ALT (0-35) U/L Alkaline Phosphatase (38-126) U/L Serum Total Protein (6.3-8.2) g/dL Albumin (3.5-5.0) g/dL 12/09/24 12/09/24 12/09/24 Range/Units 13:00 13:00 16:15 WBC 6.2 (3.98-10.04) x10^3/uL RBC 3.06 L (3.93-5.22) x10^6/uL Hgb 9.0 L (11.2-15.7) g/dL Hct 29.5 L (34.1-44.9) % MCV 96.4 H D (79.4-94.8) fL MCH 29.4 (25.6-32.2) pg MCHC 30.5 L (32.2-35.5) g/dL RDW 13.2 (11.7-14.4) % Plt Count 331 (182-369) x10^3/uL MPV 11.4 (9.4-12.3) fL Sodium 136 (135-145) mmol/L Potassium 4.1 (3.5-5.1) mmol/L Chloride 95 L (98-107) mmol/L Carbon Dioxide 22 (22-30) mmol/L Anion Gap 22.6 H (5-15) MEQ/L BUN 39 H (7-17) mg/dL Creatinine 2.21 H (0.52-1.04) mg/dL Estimated GFR 22.1 ML/MIN Glucose 227 H (74-106) mg/dL POC Glucometer 256 H (74 to 106) mg/dL Hemoglobin A1c (4.5-6.0) % Calcium 7.1 L (8.4-10.2) mg/dL Total Bilirubin 0.70 (0.2-1.3) mg/dL AST 27 (14-36) U/L ALT 24 (0-35) U/L Alkaline Phosphatase 71 (38-126) U/L Serum Total Protein 6.8 (6.3-8.2) g/dL Albumin 3.7 (3.5-5.0) g/dL 12/09/24 Range/Units 21:02 WBC (3.98-10.04) x10^3/uL RBC (3.93-5.22) x10^6/uL Hgb (11.2-15.7) g/dL Hct (34.1-44.9) % MCV (79.4-94.8) fL MCH (25.6-32.2) pg MCHC (32.2-35.5) g/dL RDW (11.7-14.4) % Plt Count (182-369) x10^3/uL MPV (9.4-12.3) fL Sodium (135-145) mmol/L Potassium (3.5-5.1) mmol/L Chloride (98-107) mmol/L Carbon Dioxide (22-30) mmol/L Anion Gap (5-15) MEQ/L BUN (7-17) mg/dL Creatinine (0.52-1.04) mg/dL Estimated GFR ML/MIN Glucose (74-106) mg/dL POC Glucometer 206 H (74 to 106) mg/dL Hemoglobin A1c (4.5-6.0) % Calcium (8.4-10.2) mg/dL Total Bilirubin (0.2-1.3) mg/dL AST (14-36) U/L ALT (0-35) U/L Alkaline Phosphatase (38-126) U/L Serum Total Protein (6.3-8.2) g/dL Albumin (3.5-5.0) g/dL Radiology Exams: Radiology Procedures Category Date Time Status BARIUM SWALLOW ESOPHOGRAM Routine Exams 12/10/24 09:00 Ordered CHEST 1 VIEW (PORTABLE) Routine Exams 12/10/24 09:00 Ordered Medications: Medications Generic Name Dose Route Start Last Admin Trade Name Freq PRN Reason Stop Dose Admin Acetaminophen 650 mg 12/07/24 15:01 Acetaminophen 650 Mg Supp.Rect MO 01/06/25 15:00 Q4H PRN PRN PAIN AND/OR FEVER Acetaminophen 650 mg 12/07/24 17:15 Acetaminophen 325 Mg Tablet PO 01/06/25 17:14 Q6H PRN PRN PAIN AND/OR FEVER Amlodipine Besylate 2.5 mg 12/08/24 10:00 12/09/24 09:35 Amlodipine Besylate 5 Mg Tablet PO 01/07/25 09:59 2.5 mg DAILY RAMON Administration Bisacodyl 10 mg 12/07/24 16:08 Bisacodyl 10 Mg Supp.Rect RC 01/06/25 16:07 DAILY PRN PRN CONSTIPATION Budesonide 0.5 mg 12/07/24 19:00 12/09/24 19:14 Budesonide 0.5 Mg/2 Ml Ampul.Neb. IH 01/06/25 18:59 Not Given BIDRT RAMON Buspirone HCl 10 mg 12/07/24 22:00 12/09/24 21:23 Buspirone Hcl 5 Mg Tablet PO 01/06/25 21:59 10 mg BID RAMON Administration Calcitriol 0.5 mcg 12/08/24 10:00 12/09/24 09:37 Calcitriol 0.25 Mcg Capsule PO 01/07/25 09:59 0.5 mcg DAILY RAMON Administration Calcium Carbonate/Glycine 750 mg 12/07/24 17:00 12/09/24 21:24 Calcium Carbonate 750 Mg 750 Mg Tab.Chew PO 01/06/25 16:59 750 mg QID RAMON Administration Cyanocobalamin 1,000 mcg 12/08/24 10:00 12/09/24 09:34 Cyanocobalamin 500 Mcg Tablet PO 01/07/25 09:59 1,000 mcg DAILY RAMON Administration Dextrose 25 ml 12/08/24 07:38 12/08/24 16:28 Dextrose 50%-Water 50 Ml Abboject IV 01/07/25 07:37 25 ml PRN PRN Administration HYPOGLYCEMIA Dronedarone 400 mg 12/07/24 22:00 12/09/24 21:23 Dronedarone Hydrochloride 400 Mg Tablet PO 01/06/25 21:59 400 mg BID RAMON Administration Ergocalciferol 50,000 unit 12/09/24 10:00 12/09/24 09:37 Ergocalciferol (Vitamin D2) 50,000 Unit Capsule PO 01/08/25 09:59 50,000 unit Q7D RAMON Administration Famotidine 20 mg 12/07/24 22:00 12/09/24 21:24 Famotidine 20 Mg Tablet PO 01/06/25 21:59 20 mg BID RAMON Administration Ferrous Sulfate 325 mg 12/07/24 22:00 12/09/24 21:22 Ferrous Sulfate 325 Mg Tablet PO 01/06/25 21:59 325 mg BID RAMON Administration Folic Acid 1 mg 12/08/24 10:00 12/09/24 09:35 Folic Acid 1 Mg Tablet PO 01/07/25 09:59 1 mg DAILY RAMON Administration Furosemide 40 mg 12/07/24 15:24 12/09/24 18:03 Furosemide 40 Mg/4 Ml Vial IV 01/06/25 15:23 40 mg BID DIURETIC RAMON Administration Glucose 15 gm 12/08/24 07:38 Dextrose 15 Gm Gel PO 01/07/25 07:37 PRN PRN HYPOGLYCEMIA Heparin Sodium (Beef Lung) 500 units 12/09/24 07:36 12/09/24 09:28 Heparin Lock Flush Pf 500 Units/5 Ml Syringe PORT FLUSH 01/08/25 07:35 500 units PRN PRN Administration IV PORT FLUSH Piperacillin Sod/Tazobactam 100 mls @ 200 mls/hr 12/07/24 18:00 12/10/24 00:20 Sod 3.375 gm/ Sodium Chloride IV 12/10/24 17:59 200 mls/hr Q6HT RAMON Administration Insulin Human Lispro 0 unit 12/08/24 07:41 12/09/24 22:00 Insulin Lispro 1 Unit SQ 01/07/25 07:40 5 unit UD PRN Administration HYPERGLYCEMIA Lactobacillus Acidophilus 1 tab 12/08/24 10:00 12/09/24 09:33 Lactobacillus Acidophilus 1 Tab Tablet PO 01/07/25 09:59 1 tab DAILY RAMON Administration Levothyroxine Sodium 100 mcg 12/08/24 10:00 12/09/24 09:35 Levothyroxine Sodium 100 Mcg Tablet PO 01/07/25 09:59 100 mcg DAILY RAMON Administration Levothyroxine Sodium 75 mcg 12/08/24 10:00 12/09/24 09:35 Levothyroxine Sodium 75 Mcg Tablet PO 01/07/25 09:59 75 mcg DAILY RAMON Administration Loperamide HCl 0 mg 12/07/24 16:38 12/09/24 18:09 Loperamide Hcl 2 Mg Capsule PO 01/06/25 16:36 4 mg PRN PRN Administration DIARRHEA Loperamide HCl 2 mg 12/09/24 17:50 12/09/24 21:23 Loperamide Hcl 2 Mg Capsule PO 01/08/25 17:49 2 mg PRN PRN Administration DIARRHEA Loratadine 10 mg 12/07/24 22:00 12/09/24 21:23 Loratadine 10 Mg Tablet PO 01/06/25 21:59 10 mg HS RAMON Administration Magnesium Hydroxide 30 ml 12/07/24 16:08 Magnesium Hydroxide 30 Ml Udcup PO 01/06/25 16:07 DAILY PRN PRN CONSTIPATION Magnesium Oxide 400 mg 12/07/24 22:00 12/09/24 21:22 Magnesium Oxide 400 Mg Tablet PO 01/06/25 21:59 400 mg BID RAMON Administration Melatonin 3 mg 12/07/24 22:00 12/09/24 21:23 Melatonin 3 Mg Tablet PO 01/06/25 21:59 3 mg HS RAMON Administration Metoprolol Tartrate 150 mg 12/07/24 22:00 12/09/24 21:24 Metoprolol Tartrate 50 Mg Tablet PO 01/06/25 21:59 150 mg BID RAMON Administration Miscellaneous Information 1 each 12/07/24 17:00 Medication Intervention 1 Each Each 01/06/25 16:59 .RN TO CHECK RAMON Miscellaneous Information 1 each 12/07/24 17:00 Medication Intervention 1 Each Each 01/06/25 16:59 .RN TO CHECK RAMON Montelukast Sodium 10 mg 12/08/24 10:00 12/09/24 09:33 Montelukast Sodium 10 Mg Tablet PO 01/07/25 09:59 10 mg DAILY RAMON Administration Multi-Ingredient Ointment 30 gm 12/07/24 16:08 Zinc Oxide 30 Gm/1 Tube Tube TP 01/06/25 16:07 DAILY PRN PRN PAIN Pantoprazole Sodium 20 mg 12/07/24 22:00 12/09/24 21:22 Pantoprazole 20 Mg Tab PO 01/06/25 21:59 20 mg BID RAMON Administration Potassium Chloride 10 meq 12/08/24 10:00 12/09/24 09:35 Potassium Chloride Tab 10 Meq Tab PO 01/07/25 09:59 10 meq DAILY RAMON Administration Pregabalin 50 mg 12/08/24 10:00 12/09/24 09:33 Pregabalin 50 Mg Capsule PO 01/07/25 09:59 50 mg DAILY RAMON Administration Sodium Chloride 3 ml 12/08/24 08:00 12/09/24 06:32 Sodium Cl For Inhalation 3 Ml Ud Nebule IH 01/07/25 07:59 Not Given BIDRT RAMON Tamsulosin HCl 0.4 mg 12/07/24 22:00 12/09/24 21:23 Tamsulosin Hcl 0.4 Mg Cap PO 01/06/25 21:59 0.4 mg HS RAMON Administration Discontinued Medications Generic Name Dose Route Start Last Admin Trade Name Freq PRN Reason Stop Dose Admin Acetaminophen 650 mg 12/07/24 16:08 Acetaminophen 325 Mg Tablet PO 01/06/25 16:07 Q6HPRN PRN FEVER Albuterol Sulfate 2.5 mg 12/07/24 12:31 12/07/24 12:53 Albuterol Solution 2.5 Mg/0.5 Ml Ud Solution 12/07/24 12:32 Not Given STAT ONE Albuterol/Ipratropium 3 ml 12/07/24 12:31 12/07/24 12:53 Ipratropium/Albuterol Sulfate 3 Ml Ampul.Neb 12/07/24 12:32 Not Given STAT ONE Ceftriaxone Sodium 1,000 mg 12/07/24 10:11 12/07/24 11:24 Ceftriaxone Sodium 1000 Mg Inj Vial IM 12/07/24 10:12 Not Given STAT ONE Sodium Chloride 1,000 mls @ 999 mls/hr 12/07/24 10:14 12/07/24 12:26 Sodium Chloride 0.9% 1000 Ml IV 12/07/24 11:14 Infused .Q1H1M STA Infusion Ceftriaxone Sodium 1 gm in 100 mls @ 200 mls/hr 12/07/24 10:59 12/07/24 12:19 Rocephin 1 Gm / 100 Ml Nacl IV 12/07/24 11:28 Infused STAT ONE Infusion Sodium Chloride Confirm 12/07/24 11:14 Sodium Chloride 0.9% 1000 Ml Administered 12/07/24 11:15 Dose 1,000 mls @ ud .ROUTE .STK-MED ONE Ceftriaxone Sodium Confirm 12/07/24 11:14 Rocephin 1 Gm / 100 Ml Nacl Administered 12/07/24 11:15 Dose 1 gm in 100 mls @ ud IV .STK-MED ONE Sodium Chloride 1,000 mls @ 50 mls/hr 12/07/24 15:01 12/08/24 12:52 Sodium Chloride 0.9% 1000 Ml IV 01/06/25 15:00 Not Given .Q20H RAMON Azithromycin 500 mg/ Sodium 250 mls @ 250 mls/hr 12/07/24 16:00 12/08/24 07:40 Chloride IV 01/06/25 15:59 Not Given Q24H10 RAMON Insulin Glargine 22 unit 12/07/24 22:00 12/07/24 22:13 Insulin Glargine 1 Unit SQ 01/06/25 21:59 22 unit HS RAMON Administration Insulin Human Lispro 7 unit 12/07/24 17:00 12/08/24 16:35 Insulin Lispro 1 Unit SQ 01/06/25 16:59 Not Given DINNER RAMON Insulin Human Lispro 15 unit 12/08/24 08:00 12/08/24 11:30 Insulin Lispro 1 Unit SQ 01/07/25 07:59 15 unit 0800,1200 RAMON Administration Insulin Human Lispro 0 unit 12/07/24 16:18 12/07/24 22:13 Insulin Lispro 1 Unit SQ 01/06/25 16:17 13 unit UD PRN Administration HYPERGLYCEMIA Levalbuterol HCl 1.25 mg 12/07/24 16:16 Levalbuterol Hcl 1.25 Mg/0.5 Ml Neb IH 01/06/25 16:15 Q4H PRN PRN SHORTNESS OF BREATH Loperamide HCl 0 mg 12/07/24 16:37 Loperamide Hcl 2 Mg Capsule PO 01/06/25 16:36 .COMPLEX PRN DIARRHEA Non-Formulary Medication 1 each 12/07/24 16:06 12/08/24 08:36 Pharmacy Dosing Request MC 12/07/24 16:07 Not Given STAT ONE Sodium Chloride Confirm 12/07/24 18:50 Sodium Cl For Inhalation 3 Ml Ud Nebule Administered 12/07/24 18:51 Dose 3 ml IH .STK-MED ONE Warfarin Sodium 2 mg 12/08/24 18:00 Warfarin Sodium 2 Mg Tablet PO 01/07/25 17:59 [facility] Multi-Disciplinary Progress Notes: Multi-Disciplinary Progress Notes 12/09/24 22:22 Respiratory Note by Daily Camara Patient refused nebulizer treatment. No apparent distress at this time. Initialized on 12/09/24 22:22 - END OF NOTE Assessment/Plan (1) CHF, acute on chronic Current Visit: Yes Status: Acute Assessment & Plan: -BNP 13,200 with CXR findings consistent with pulmonary congestion; improved clinically with IV Lasix- now on RA -Continue oral lasix 40mg -Echo reviewed from 11/06/23 EF 72% IMPRESSION: 1. NORMAL CONTRACTILITY OF THE LEFT VENTRICLE. 2. MILD CONCENTRIC LEFT VENTRICULAR HYPERTROPHY. 3. POSSIBLE IMPAIRED LEFT VENTRICULAR RELAXATION. 4. MILD TRICUSPID REGURGITATION. 5. NORMAL RIGHT VENTRICULAR SYSTOLIC PRESSURE. 6. MITRAL VALVULAR CALCIFICATION Code(s): I50.9 - HEART FAILURE, UNSPECIFIED (2) Pneumonia Current Visit: Yes Status: Acute Assessment & Plan: -Clinical and imaging findings suggestive pneumonia -Treated with IV Zosyn. -continue -Sputum and blood cultures pending -Supplemental oxygen to maintain spo2 > 91%- currently on RA at 93% -Xoponex stopped by RT stating she is allergic- however this is not an allergy on her chart- she is breathing well so not needed at this time -WBC reviewed and WNL at 7.2 -pulmicort Code(s): J18.9 - PNEUMONIA, UNSPECIFIED ORGANISM (3) Acute on chronic renal failure Current Visit: No Status: Acute Assessment & Plan: -Stable with baseline creatinine 2.2. - creat reviewed at 2.59- Mild bump possibly from diuresis -Monitor renal/lytes daily -avoid nephrotoxic agents Code(s): N17.9 - ACUTE KIDNEY FAILURE, UNSPECIFIED; N18.9 - CHRONIC KIDNEY DISEASE, UNSPECIFIED (4) Afib Current Visit: No Status: Acute Assessment & Plan: -On warfarin and metoprolol; rate controlled. Code(s): I48.91 - UNSPECIFIED ATRIAL FIBRILLATION (5) COPD exacerbation Current Visit: No Status: Acute Assessment & Plan: -Treated with steroids and inhaled bronchodilators; weaned from oxygen - ABG reviewed and shows: Primary resp alkalosis, acute- with secondary metabolic alkalosis -likely secondary to pneumonia -imaging as stated above Code(s): J44.1 - CHRONIC OBSTRUCTIVE PULMONARY DISEASE W (ACUTE) EXACERBATION (6) Dyspnea Current Visit: No Status: Acute Assessment & Plan: Secondary to CHF/COPD/pneumonia; resolved with treatment Code(s): R06.00 - DYSPNEA, UNSPECIFIED (7) HTN (hypertension) Current Visit: No Status: Acute Assessment & Plan: -BP stable on home medications Code(s): I10 - ESSENTIAL (PRIMARY) HYPERTENSION (8) Hypoglycemia Current Visit: No Status: Acute Assessment & Plan: -Glucose dropped to 52 during hospital course; corrected with protocol and insulin dose adjustment Code(s): E16.2 - HYPOGLYCEMIA, UNSPECIFIED (9) Hypothyroid Current Visit: No Status: Acute Assessment & Plan: -Maintained on Synthroid Code(s): E03.9 - HYPOTHYROIDISM, UNSPECIFIED (10) Leukocytosis Current Visit: No Status: Acute Qualifiers: Assessment & Plan: -Initial WBC 15.4 with fever; normalized with antibiotic treatment Code(s): D72.829 - ELEVATED WHITE BLOOD CELL COUNT, UNSPECIFIED (11) Type 2 diabetes mellitus Current Visit: No Status: Acute Assessment & Plan: -On long-term insulin; currently managed with sliding scale due to recent hypoglycemia - increased to HD due to hyperglycemia -ADA diet (12) Iron deficiency anemia Current Visit: No Status: Chronic Assessment & Plan: -Hgb decreased from 10.1 to 7.8; no active bleeding identified. 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
[2024-12-10 05:46] LABS: Hemoglobin 9.5 g/dL (11.2-15.7); Mean Cell Volume 87.2 fL (79.4-94.8); Mean Corpuscular Hemoglobin 29.6 pg (25.6-32.2); Mean Corpuscular Hgb Concent. 33.9 g/dL (32.2-35.5); Mean Platelet Volume 11.1 fL (9.4-12.3); Platelet Count 360 x10^3/uL (182-369); Red Blood Count 3.21 x10^6/uL (3.93-5.22); Red Cell Distribution Width 12.9 % (11.7-14.4); White Blood Count 7.2 x10^3/uL (3.98-10.04)
[2024-12-10 06:04] LABS: ALBUMIN 4.1 g/dL (3.5-5.0); ANION GAP 23.7 MEQ/L (5-15); BILIRUBIN,TOTAL 0.7 mg/dL (0.2-1.3); Calcium 7.5 mg/dL (8.4-10.2); Creatinine 1 2.59 mg/dL (0.52-1.04); EST GLOMERULAR FILTRATION RATE 18.3 ML/MIN; Potassium 3.5 mmol/L (3.5-5.1); Total Protein 7.6 g/dL (6.3-8.2)
[2024-12-10 06:42] LABS: INR 2.16 (0.8-3.0); PROTIME 22.4 SECONDS (9.4-12.5)
--- NOTE | 2024-12-10 08:56 | XRAY ---
Indication: Short of breath. Comparison: December 07, 2024 Portable apical lordotic chest improved with clearing previous pulmonary edema and right apical consolidating/nonconsolidating opacity. New left base subsegmental atelectasis/scarring. Heart not enlarged again with aortic valve replacement. No new cardiopulmonary abnormalities.
[2024-12-10] MEDS: HUMALOG SQ PRN (09:02)
[2024-12-10] MEDS ORDERED: PIPERACILLIN/TAZOBACTAM 4.5 GM in Sodium Chloride 0.9% 100 ML IV SCH (12:00)
[2024-12-10] MEDS: Piperacillin/Tazobactam 2.25 GM 2.25 GM in Sodium Chloride 0.9% 100 ML IV SCH (12:13)
--- NOTE | 2024-12-10 13:46 | XRAY ---
Indication: Aspiration. Bedside modified barium study was performed by the Department of speech therapy with fluoroscopic assistance provided. Patient ingested multiple consistencies of liquids and solids. Full report and recommendations will be reported separately. Approximately 59 seconds fluoroscopy used.
[2024-12-11 07:57] VITALS: O2SAT 93
[2024-12-11 10:58] VITALS: BP 189/75; PULSE 65; RESP 18; TEMP 97.5
--- NOTE | 2024-12-11 11:02 | PCM.DS ---
Discharge Summary Date of Admission: 12/07/24 14:52 Date of Discharge: 12/11/24 Admitting Physician: NAOMI MARISCAL MD Consults: Consults on Case 12/08/24 07:38 Notify Physician ROUTINE Primary Care Provider: ARIEL,JOE Allergies Allergies albuterol Allergy (Intermediate, Verified 11/18/24 15:57) Swelling of Tongue and Lips propranolol [From Inderal LA] Allergy (Intermediate, Verified 11/18/24 15:57) red face and ears levofloxacin [From Levaquin] Allergy (Unknown, Verified 11/18/24 15:57) clonazepam [From Klonopin] Allergy (Verified 11/18/24 15:57) Tightness of Throat tongue swollen metoclopramide [From Reglan] Allergy (Verified 11/18/24 15:57) propranolol HCl [From Inderal LA] Allergy (Verified 11/18/24 15:57) Swelling of Tongue and Lips red face and ears Wrtjaix-CSI-VnZ Reductase Inhibitor Allergy (Verified 11/18/24 15:57) Wheezing Sulfa (Sulfonamide Antibiotics) Allergy (Verified 11/18/24 15:57) Swelling of Tongue and Lips throat swell,ears red terfenadine Allergy (Verified 11/18/24 15:57) venom-honey bee [bee venom (honey bee)] Allergy (Verified 11/18/24 15:57) Hives large hives wheat Allergy (Verified 11/18/24 15:57) zanamivir [From Relenza Diskhaler] Allergy (Verified 11/18/24 15:57) Swelling of Tongue and Lips throat tightness cilostazol [From Pletal] Adverse Reaction (Severe, Verified 11/18/24 15:57) Swelling of Tongue and Lips ticagrelor [From Brilinta] Adverse Reaction (Severe, Verified 11/18/24 15:57) Swelling of Tongue and Lips Hospital Summary - Hospital Course Hospital Course: Ms. Magana is a 79-year-old female, [facility], with an extensive and complex medical history, including coronary artery disease, chronic obstructive pulmonary disease (COPD), congestive heart failure (CHF) with preserved ejection fraction, chronic atrial fibrillation, chronic kidney disease, type 2 diabetes mellitus, cerebrovascular accident with residual deficits, hypertension, hyperlipidemia, hypothyroidism, iron deficiency anemia, depression, anxiety, celiac disease, GERD, peripheral vascular disease, breast cancer status-post left mastectomy, and a history of pulmonary embolism/deep vein thrombosis on chronic warfarin therapy. She was admitted on 12/07/24 with acute progressive dyspnea, hypoxia requiring 10 L/min via oxymask, fever, fatigue, and acute confusion. Initial evaluation revealed pulmonary congestion on chest X-ray, markedly elevated BNP at 13,200, ABG showing primary respiratory alkalosis with secondary metabolic alkalosis, and leukocytosis (WBC 15.4). These findings were consistent with acute on chronic CHF exacerbation, possible pneumonia, and COPD exacerbation. She was treated aggressively with IV Lasix, corticosteroids, Pulmicort, and empiric IV Zosyn. She rapidly improved both clinically and oxygen-lagunas, weaning to room air with SpO2 > 95%. Her mental status also improved to her known intermittent baseline. Xopenex was discontinued after suspected intolerance, although no formal allergy was recorded. She developed diarrhea on day 2 of hospitalization, with negative C. difficile testing, and was started on probiotics. Given recurrent pneumonia, a modified barium swallow was obtained, revealing mild to moderate oropharyngeal dysphagia with risk of aspiration prior to and during the swallow, although no shantal aspiration was seen during the study. She will require ongoing dietary modifications and swallow precautions. Her renal function remained at baseline, though a mild increase in creatinine to 2.59 was noted, likely due to diuresis. Her hemoglobin decreased from 10.1 to 7.8, consistent with chronic anemia, but she remained hemodynamically stable without signs of bleeding. At the time of discharge, she was clinically stable, back to her home oxygen requirements at room air, and able to tolerate a soft carb-controlled diet with precautions. She is to be discharged back to [facility] on her home regimen of oral Lasix and Augmentin to complete pneumonia treatment. Speech therapy will continue at the nursing facility for ongoing dysphagia management. I spent 35 minutes [id number] with the patient on the day of discharge performing discharge exam, discussing hospital stay and discharge instructions with patient and caregivers, preparation of discharge records, prescriptions & referral forms and addressing any questions/concerns the patient had as documented above. - Vitals & Intake/Output Vital Signs: Vital Signs Temperature 97.6 F 12/11/24 04:00 Pulse Rate 77 12/11/24 07:56 Respiratory Rate 16 12/11/24 07:56 Blood Pressure 144/87 12/11/24 04:00 O2 Sat by Pulse Oximetry 93 L 12/11/24 07:56 Intake & Output: Intake & Output 12/08/24 12/09/24 12/10/24 12/11/24 11:59 11:59 11:59 11:59 Intake Total 840 1065 660 580 Output Total 900 1 Balance -60 1064 660 580 Weight 77 kg 77 kg - Lab Result Diagrams: 12/10/24 05:48 12/10/24 05:48 Lab Results-Last 24 Hrs: Lab Results-Last 24 Hours 12/10/24 12/10/24 12/10/24 Range/Units 11:48 16:17 20:55 POC Glucometer 240 H 273 H 231 H (74 to 106) mg/dL 12/11/24 Range/Units 07:15 POC Glucometer 345 H (74 to 106) mg/dL Micro Results-Entire Visit: Microbiology 12/07/24 11:00 Blood Culture - Preliminary Blood 12/07/24 10:38 Blood Culture - Preliminary Blood 12/07/24 13:16 Urine Culture - Final Catherized NO GROWTH Accuchecks Date 12/10/24 Date 12/10/24 Date 12/10/24 Time 21:00 Time 16:53 Time 12:04 - Radiology Exams Ordered Rad Exams-Entire Visit: Radiology Procedures Category Date Time Status CHEST 1 VIEW (PORTABLE) Routine Exams 12/10/24 09:00 Completed MODIFIED BARIUM SWALLOW EXAM Routine Exams 12/10/24 09:00 Completed - Procedures and Test Procedures and Tests throughout Hospitalization: Therapy Orders & Screens 12/07/24 16:21 RT Miscellaneous Order ROUTINE Comment: Physician Instructions: Reason For Exam: eval and treat, may need Bipap Diagnosis: CHF 12/07/24 17:28 Respiratory Therapy Assessment DAILY Comment: Diagnosis: CHF 12/07/24 17:33 Oxygen Oxymizer LPM 10 lpm Comment: Diagnosis: CHF 12/07/24 17:48 OT Screen per Nursing Assess ONCE Comment: Protocol Order Physician Instructions: Greater than 3 points order OT Admission Screening Reason For Exam: Triggered on Admission Diagnosis: Pneumonia Open Wound/Cellutlitis/Pressure Ulcers: No Acute Fx/ORIF/Change in wt bearing status: No Severe MUSCULOSKELETAL pain: No ADL Dysfunction: Yes Acute CVA w/Hemiparesis/Hemiplegia: No Decreased Functional Mobility/Strength: Yes Sprain/Strain: No Acute Post-op Mobility Dysfunction: No Total Points: 4 PT Screen per Nursing Assess ONCE Comment: Protocol Order Physician Instructions: Greater than 3 points order PT Admission Screenin Reason For Exam: Triggered on Admission Diagnosis: Pneumonia Open Wound/Cellutlitis/Pressure Ulcers: No Acute Fx/ORIF/Change in wt bearing status: No Severe MUSCULOSKELETAL pain: No ADL Dysfunction: Yes Acute CVA w/Hemiparesis/Hemiplegia: No Decreased Functional Mobility/Strength: Yes Sprain/Strain: No Acute Post-op Mobility Dysfunction: No Total Points: 4 RT Screen per Nursing Assess ONCE Comment: Protocol Order Physician Instructions: Greater than 3 points order RT Admission Screen Reason For Exam: Triggered on Admission Diagnosis: Pneumonia Diagnosis: Pneumonia Pneumonia: Yes Home O2: Yes Asthma: Yes CHF: Yes Home CPAP/BIPAP: No Home Nebs/MDI: No Total Points: 15 ST Screen per Nursing Assess ONCE Comment: Protocol Order Physician Instructions: Greater than [address] Admission Screening Reason For Exam: Triggered on Admission Diagnosis: Pneumonia CVA/Dysphagia/Aphasia: No Cognitive Deficits: Yes Dehydration/Nutrition Deficit: No Reflux: No Oral-Motor Difficulties: No Pneumonia: Yes Alf Resident: Yes Total Points: 13 Discharge Exam General Appearance: no apparent distress Neurologic Exam: alert, oriented x 3, cooperative, confusion Eye Exam: PERRL Ears, Nose, Throat Exam: normal ENT inspection Neck Exam: normal inspection Respiratory Exam: crackles/rales Cardiovascular Exam: regular rate/rhythm, normal heart sounds Gastrointestinal/Abdomen Exam: soft, normal bowel sounds Pelvic Exam: deferred Rectal Exam: deferred Back Exam: normal inspection Extremity Exam: normal inspection Skin Exam: normal color Wound Assessment: Skin/Wound Assessment Wound/Incision Assessment Start: 12/09/24 11:20 Text: Status: Active Freq: Protocol: Document 12/09/24 11:20 RB (Rec: 12/09/24 11:22 RB [id number]) Wound/Incision Assessment Right Hip General Appearance Well Approximated Wound Photo Photo Taken No Final Diagnosis/Problem List - Final Discharge Diagnosis/Problem (1) CHF, acute on chronic Current Visit: Yes Status: Acute Assessment & Plan: Presentation with pulmonary edema, elevated BNP (13,200), and oxygen requirement. Improved with IV Lasix; transitioned to home oral Lasix 40 mg daily. Reinforce low sodium diet, daily weight monitoring, and early recognition of CHF symptoms (orthopnea, increased edema, weight gain >2-3 lbs in 24 hours). Continue GDMT including home medications. Call provider if: Increased dyspnea, weight gain >3 lbs, orthopnea, chest pain, or lower extremity edema. Code(s): I50.9 - HEART FAILURE, UNSPECIFIED (2) Pneumonia Current Visit: Yes Status: Acute Assessment & Plan: Treated with IV Zosyn during hospitalization. Completing treatment with oral Augmentin as outpatient. Continue Pulmicort and inhalers. Call provider if: Fever >101F, worsening cough, sputum production, or increased shortness of breath Code(s): J18.9 - PNEUMONIA, UNSPECIFIED ORGANISM (3) Acute on chronic renal failure Current Visit: No Status: Acute Assessment & Plan: Creatinine increased mildly to 2.59; likely diuretic-related. Avoid nephrotoxic agents. Monitor renal function at nursing facility. Code(s): N17.9 - ACUTE KIDNEY FAILURE, UNSPECIFIED; N18.9 - CHRONIC KIDNEY DISEASE, UNSPECIFIED (4) Afib Current Visit: No Status: Acute Assessment & Plan: Rate controlled on metoprolol and warfarin. Continue current management. Monitor INR through pharmacy protocol. Code(s): I48.91 - UNSPECIFIED ATRIAL FIBRILLATION (5) COPD exacerbation Current Visit: No Status: Acute Assessment & Plan: Likely triggered by pneumonia. Improved with steroids, Pulmicort, and oxygen therapy. Continue home inhalers (Trelegy), albuterol PRN, and prednisone 10 mg daily. Call provider if: Worsening dyspnea, increased sputum, or signs of respiratory distress. Code(s): J44.1 - CHRONIC OBSTRUCTIVE PULMONARY DISEASE W (ACUTE) EXACERBATION (6) Dyspnea Current Visit: No Status: Acute Assessment & Plan: see above Code(s): R06.00 - DYSPNEA, UNSPECIFIED (7) HTN (hypertension) Current Visit: No Status: Acute Assessment & Plan: Stable during admission. Continue home antihypertensive regimen. Code(s): I10 - ESSENTIAL (PRIMARY) HYPERTENSION (8) Hypoglycemia Current Visit: No Status: Acute Assessment & Plan: Managed on insulin with recent adjustments due to hypoglycemia and hyperglycemia. Continue ADA diet with carb control. Monitor glucose per facility protocol. Call provider if: Glucose <70 or >300 consistently. Code(s): E16.2 - HYPOGLYCEMIA, UNSPECIFIED (9) Hypothyroid Current Visit: No Status: Acute Assessment & Plan: Continue Synthroid at home dose. Code(s): E03.9 - HYPOTHYROIDISM, UNSPECIFIED (10) Leukocytosis Current Visit: No Status: Acute Assessment & Plan: -resolved Code(s): D72.829 - ELEVATED WHITE BLOOD CELL COUNT, UNSPECIFIED (11) Type 2 diabetes mellitus Current Visit: No Status: Acute Assessment & Plan: Managed on insulin with recent adjustments due to hypoglycemia and hyperglycemia. Continue ADA diet with carb control. Monitor glucose per facility protocol. Call provider if: Glucose <70 or >300 consistently. (12) Iron deficiency anemia Current Visit: No Status: Chronic Assessment & Plan: Hemoglobin dropped from 10.1 to 7.8. Continue ferrous sulfate. Monitor CBC periodically. Call provider if: New signs of bleeding, fatigue, or pallor. Code(s): D50.9 - IRON DEFICIENCY ANEMIA, UNSPECIFIED (13) detention (current) use of anticoagulants Current Visit: No Status: Chronic Assessment & Plan: Continue chronic warfarin therapy. INR monitoring per facility/pharmac Code(s): Z79.01 - SKILLED NURSING (CURRENT) USE OF ANTICOAGULANTS (14) Vitamin D deficiency Current Visit: No Status: Chronic Assessment & Plan: Continue daily supplementation. Code(s): E55.9 - VITAMIN D DEFICIENCY, UNSPECIFIED (15) Dysphagia Current Visit: Yes Status: Acute Assessment & Plan: At risk for aspiration with thin liquids. Recommend soft, carb-controlled diet (IDDSI Level 6). Thin liquids allowed, but no straws. Use upright positioning during meals, small bites and sips, alternate solids and liquids, dry swallows. Speech therapy to continue at facility. Call provider if: Coughing during meals, choking, or recurrent pneumonia symptoms. Code(s): R13.10 - DYSPHAGIA, UNSPECIFIED - Discharge Discharge Date: 12/11/24 Disposition: DC TO ANY "OTHER" ASSISTED Condition: Fair Prescriptions: New Amoxicillin/Potassium Clav [Augmentin 500-125 Tablet] 1 each PO BID 7 Days #14 tablet Dextrose 15 gm Oral Gel [Glutose 15 GM ORAL GEL] 15 gm PO PRN PRN PRN Reason: Hypoglycemia Continue Ferrous Sulfate 325 mg [Feosol 325 mg] 325 mg PO BID Cholecalciferol (Vitamin D3) [Vitamin D] 50,000 unit PO WEEKLY Amlodipine Besylate [Norvasc] 2.5 mg PO DAILY calcitrioL [Calcitriol] 0.5 mcg PO DAILY Dronedarone Hydrochloride 400* [Multaq 400 MG] 400 mg PO BID Pantoprazole 20 mg [Protonix 20MG Tablet] 20 mg PO BID Cranberry Fruit Extract [Cranberry] 250 mg PO BID Metoprolol Tartrate [Lopressor] 100 mg PO BID Metoprolol Tartrate 50 mg [Lopressor 50 MG] 50 mg PO BID Magnesium Oxide 400 mg [Mag-Ox 400] 400 mg PO BID Furosemide 40 mg [Lasix 40 MG] 40 mg PO DAILY Potassium Chloride Tab* [Klor Con] 10 meq PO DAILY Rosuvastatin Calcium 5 mg PO DAILY Montelukast Sodium 10 mg [Singulair 10 MG] 10 mg PO DAILY Folic Acid 1 mg [Folate 1 mg] 1 mg PO DAILY Famotidine 20 mg [Pepcid 20 MG] 20 mg PO BID Lactobacillus Acidophilus [Acidophilus TABLET] 1 cap PO DAILY Buspirone HCl 5 mg [Buspar 5 mg] 10 mg PO BID Insulin Lispro [Humalog] 15 unit SQ .0800, 1200 Cyanocobalamin 100 Mcg [Vitamin B-12 100 Mcg] 1,000 mcg PO DAILY Pregabalin 50 mg [Lyrica 50MG] 50 mg PO DAILY Insulin Lispro [Humalog] 7 unit SQ DINNER Acetaminophen 325 mg [Tylenol 325 mg] 650 mg PO Q6H PRN PRN Reason: Fever Loperamide HCl [Imodium A-D] See Rx Instructions .ROUTE .COMPLEX PRN PRN Reason: Diarrhea Insulin Glargine,Hum.rec.anlog [Tonilesh Leyva] See Protocol SQ HS Insulin Lispro [Humalog] See Protocol SQ AC Insulin Glargine,Hum.rec.anlog [Tosurajjeross Solostdiane] 22 unit SQ HS Tamsulosin HCl [Flomax] 0.4 mg PO HS Melatonin 3 mg PO HS Cetirizine HCl [Zyrtec] 10 mg PO HS Levothyroxine Sodium [Euthyrox] 175 mcg PO DAILY Calcium Carbonate [Tums Ultra] 400 mg PO QID Blood-Glucose Sensor [Dexcom G7 Sensor] 1 applic SQ Q10D Bisacodyl 10 mg [Dulcolax 10 MG SUPP] 10 mg RC Q24H PRN PRN Reason: Constipation Zinc Oxide Ointment 30 gm 30 gm TP DAILY PRN PRN Reason: Pain Warfarin Sodium 2 mg [Coumadin 2 MG] 2 mg PO DAILY Magnesium Hydroxide 30 ml [Milk of Magnesia 30 ml] 30 ml PO DAILY PRN PRN Reason: Constipation Additional Instructions: NH ORDERS: PT/OT/ST EVALS AND TREAT RESUME PREVIOUS ASSISTED ORDERS: -CARB CONTROLLED SOFT DIET (BITE SIZED) -REGULAR THIN LIQUIDS- NO STRAW AND USE CONTROLLED FLOW CUP, IF POSSIBLE -UPRIGHT POSITION FOR ALL MEALS -REMAIN UPRIGHT AFTER MEALS -SMALL BITES AND DRINKS -DRY SWALLOWS -ALTERNATE SOLIDS/LIQUIDS SEE ATTACHED MED LIST INR needs to be monitored closely (within 5 days of discharge) due to Augmentin- ( PATIENT HAD 3 [facility] INPT STAY 12/07-12/11 ) Follow up with: JOE GEORGE MD [Primary Care Provider, INTERNAL MEDICINE]
[2024-12-11] MEDS: Lasix 40 MG PO SCH (12:43)
[2024-12-11] MEDS ORDERED: Coumadin 2 MG PO SCH (18:00)
== END 2024-12-11 13:09 | DRG 698 ==
LOC: ED 09:53 → MED SURG 14:52 → OBSVTOIN 14:52
PROVIDERS: ADMIT Internal Medicine; ATTEND Internal Medicine
DX: E11.22 Type 2 diabetes mellitus with diabetic chronic kidney disease (principal); J18.9 Pneumonia, unspecified organism; I13.0 Hypertensive heart and chronic kidney disease with heart failure and stage 1 through stage 4 chronic kidney disease, or unspecified chronic kidney disease; J44.1 Chronic obstructive pulmonary disease with (acute) exacerbation; N18.9 Chronic kidney disease, unspecified; I50.9 Heart failure, unspecified; N17.9 Acute kidney failure, unspecified; I48.91 Unspecified atrial fibrillation; R06.00 Dyspnea, unspecified; E11.649 Type 2 diabetes mellitus with hypoglycemia without coma; E03.9 Hypothyroidism, unspecified; D72.829 Elevated white blood cell count, unspecified; D50.9 Iron deficiency anemia, unspecified; E55.9 Vitamin D deficiency, unspecified; Z79.01 Long term (current) use of anticoagulants; Z79.899 Other long term (current) drug therapy; R13.10 Dysphagia, unspecified; I25.10 Atherosclerotic heart disease of native coronary artery without angina pectoris; Z86.711 Personal history of pulmonary embolism; Z86.73 Personal history of transient ischemic attack (TIA), and cerebral infarction without residual deficits; Z85.3 Personal history of malignant neoplasm of breast
CPT/HCPCS: 36415; 71045; 74230; 80053; 81001; 82805; 82947; 83036; 83605; 83880; 84134; 84145; 85025; 85027; 85610; 85730; 87040; 87086; 87493; 92611; 93005; 93041; 94640; 94760; 99285; Q3014; J0696; J1642; J1817; J1938; J2543; A9270-GY